=== PATIENT | female | born 1940 | race Caucasian/White ===

== ENCOUNTER 2019-04-10 11:06 | Outpatient (CLI) | payer MEDICARE, SELFPAY ==
--- NOTE | ~2019-04-10 | CT_ITS ---
EXAMINATION:CT chest wo con DATE: 04/10/2019 11:31 INDICATION: Solitary pulmonary nodule. TECHNIQUE: Computed tomography (CT) of the chest was performed without intravenous contrast. Automate d exposure control and iterative reconstruction technique were employed. The dose-length product (DLP ) was 65.51 mGy-cm. COMPARISON: PET/CT 06/30/2018, chest CT 05/30/2018 FINDINGS: There is moderate emphysema. There is mild atelectasis bilaterally. A calcified right lung nodule is consistent with old granulomatous disease. There is mucous plugging in left lower lobe. The re is discoid atelectasis in lingula. Again seen is a 4 mm nodule in left upper lobe. There is a 9 mm nodule in right lower lobe abutting the hilum without change and without increased activity on the p rior PET. No pleural effusion. The heart size is normal. There are coronary artery calcifications. No pericardial effusion. There are changes of cholecystectomy. There is mild thoracic spondylosis. IMPRESSION: 1. Stable pulmonary nodules, probably benign. Noncontrast low-dose chest CT is recommended in 12 bar hs. 2. Moderate emphysema. Reviewed, dictated and finalized at location A. R PASTE MIXER IMPRESSION: 1. Stable pulmonary nodules, probably benign. Noncontrast low-dose chest CT is recommended in 12 months. 2. Moderate emphysema.
== END 2019-04-10 11:07 | disposition home or self-care (01) ==
PROVIDERS: PCP Family Medicine; Visit Provider Nurse Practitioner
DX: R91.1 Solitary pulmonary nodule (principal); J43.9 Emphysema, unspecified; R91.8 Other nonspecific abnormal finding of lung field
CPT/HCPCS: 71250

== ENCOUNTER 2019-09-20 12:46 | Outpatient (CLI) | payer MEDICARE, SELFPAY ==
--- NOTE | ~2019-09-20 | US_ITS ---
EXAMINATION: US renal BI DATE: 09/20/2019 13:19 INDICATION: Chronic kidney disease, stage III TECHNIQUE: Multiple grayscale and Doppler ultrasound images of the kidneys were obtained. COMPARISON: None. FINDINGS: The right kidney measures 9.9 x 4.3 x 4.2 cm. The left kidney measures 9.4 x 4.1 x 5 cm. Th e kidneys demonstrate normal parenchymal echogenicity. There is no hydronephrosis. The bladder is nor mal. IMPRESSION: 1. Normal kidneys without hydronephrosis. Reviewed, dictated and finalized at location A.
== END 2019-09-20 12:47 | disposition home or self-care (01) ==
PROVIDERS: PCP Family Medicine Sports Medicine; Visit Provider Internal Medicine Nephrology
DX: N18.3 Chronic kidney disease, stage 3 (moderate) (principal)
CPT/HCPCS: 76775

== ENCOUNTER 2019-11-03 09:44 | Outpatient (CLI) | payer MEDICARE, SELFPAY ==
[2019-11-03 09:55] VITALS: PULSE 57; O2SAT 93
[2019-11-03 10:00] VITALS: PULSE 70; O2SAT 86
[2019-11-03 10:05] VITALS: PULSE 72; O2SAT 88
[2019-11-03 10:10] VITALS: PULSE 74; O2SAT 91
[2019-11-03 10:20] VITALS: PULSE 58; O2SAT 92
--- NOTE | 2019-11-03 10:33 | HOMEO2EVAL ---
Home Oxygen Evaluation RC: Home Oxygen (O2) Evaluation Start: 11/03/19 10:28 Freq: Status: Active Protocol: RPE Activity Type Activity Date Activity User E-Sign Co-Sign Detail Recorded Client Recorded Date Recorded By Document 11/03/19 09:55 DJO [email or web address] 11/03/19 10:33 DJO Document 11/03/19 10:00 [email or web address] [email or web address] 11/03/19 10:33 DJO Document 11/03/19 10:05 DJO [email or web address] 11/03/19 10:33 DJO Document 11/03/19 10:10 DJO [email or web address] 11/03/19 10:33 DJO Document 11/03/19 10:20 DJO [email or web address] 11/03/19 10:33 DJO 11/03/19 11/03/19 11/03/19 09:55 10:00 10:05 Home O2 Evaluation Test Phase Resting Exercise Exercise Oxygen Delivery Room Air Room Air Nasal Cannula Oxygen Flow Rate (L/min) 1 Pulse Oximetry (90-100 %) 93 86 L 88 L Pulse Rate (60-100 beats/min) 57 L 70 72 Activity Tolerance Ambulation Distance (feet) Treatment Charges O2 Evaluation 11/03/19 11/03/19 10:10 10:20 Home O2 Evaluation Test Phase Exercise Resting Oxygen Delivery Nasal Cannula Room Air Oxygen Flow Rate (L/min) 2 Pulse Oximetry (90-100 %) 91 92 Pulse Rate (60-100 beats/min) 74 58 L Activity Tolerance Good Ambulation Distance (feet) 1,000 Treatment Charges
--- NOTE | 2019-11-05 11:28 | WPDPFTINT ---
PFT Interpretation PFT Interpretation: This PFT met all criteria for ATS standards and reproducibility FEV/FVC post bronchodilator 42% FEV1 69% or 1.01 liters FVC 110% or 2.39 liters TLC 129% or 5.08 liters RV 172% RV/TLC 57% DLCO 30% or 4.8 liters when adjusted for alveolar volume but not adjusted for hemoglobin Flow volume loops showed severe expiratory coving Impression: Moderate airflow obstruction with hyperinflation, air trapping and severely reduced diffusion capacity. This correlates with COPD. Clinical correlation is advised.
== END 2019-11-03 09:45 | disposition home or self-care (01) ==
LOC: ANHPFT 09:46
PROVIDERS: PCP Family Medicine Sports Medicine; Visit Provider Nurse Practitioner
DX: J43.9 Emphysema, unspecified (principal); R84.2 Abnormal level of other drugs, medicaments and biological substances in specimens from respiratory organs and thorax
CPT/HCPCS: 94060; 94618; 94726; 94729

== ENCOUNTER 2020-04-12 10:23 | Outpatient (CLI) | payer MEDICARE, SELFPAY ==
--- NOTE | ~2020-04-12 | CT_ITS ---
EXAMINATION: CT diagnostic chest wo con EXAM DATE: 04/12/2020 10:44 INDICATION: Multiple lung nodules. TECHNIQUE: Spiral CT of the chest without contrast. Axial, coronal and sagittal images were reviewe d. Coronal maximum intensity pixel images of chest reviewed. The dose-length product (DLP) for this examination was 139.88 mGy-cm. The exposure was tailored according to patient size (auto mA exposur e control), and iterative reconstruction (ASIR) was used as additional dose reduction technique. Comp arison is made to prior examination from 04/10/2019, 05/30/2018. FINDINGS: Moderate emphysema. There is 9 mm right lower lobe abutting the hilum is unchanged. New li near right lower and middle lobe opacities consistent with atelectasis, smaller amount in the left in frahilar region. There are no pleural or pericardial effusions. Tracheobronchial tree is patent. There is no mediastinal, hilar or axillary lymphadenopathy. There is no pneumothorax. Heart clyde l in size. There is diffuse gastric body wall thickening, could be up to 3 cm in thickness on the greater curvat ure side. This finding was reported on PET/CT 06/30/2018. There are cholecystectomy clips. 0 There is thoracic spondylosis without osteoblastic or osteolytic lesions identified. IMPRESSION: 1. Right perihilar 9 mm nodule, likely benign given two-year stability. 2. Diffuse gastric wall thickening. Differential diagnosis includes Torres Reina syndrome, Mene trier's disease, chronic gastritis and lymphoma. 3. Basilar linear atelectasis. 4. Moderate emphysema. Reviewed, dictated and finalized at location B. MENTAL BRICK INSTALLER IMPRESSION: 1. Right perihilar 9 mm nodule, likely benign given two-year stability. 2. Diffuse gastric wall thickening. Differential diagnosis includes Torres Reina syndrome, Menetrier's disease, chronic gastritis and lymphoma. 3. Basilar linear atelectasis. 4. Moderate emphysema.
== END 2020-04-12 10:24 | disposition home or self-care (01) ==
PROVIDERS: PCP Family Medicine Sports Medicine; Visit Provider Nurse Practitioner
DX: R91.8 Other nonspecific abnormal finding of lung field (principal); J43.9 Emphysema, unspecified
CPT/HCPCS: 71250

== ENCOUNTER 2021-05-15 11:39 | Emergency (ER) | payer MEDICARE, SELFPAY ==
--- NOTE | ~2021-05-15 | XR_ITS ---
EXAMINATION: XR chest 1V portable DATE: 05/15/2021 12:57 INDICATION: Dyspnea TECHNIQUE: frontal view of the chest was obtained. COMPARISON: Chest radiograph dated 04/25/[address] dated 04/12/2020 FINDINGS: Chronic linear band of discoid atelectasis/scarring at the lingula. No new airspace opacities, pulmon cesar edema, pleural effusion or pneumothorax. The cardiomediastinal silhouette is normal. Subtle right rotator cuff calcific tendinitis along the right greater tuberosity. IMPRESSION: 1. Chronic lingular discoid atelectasis/scarring. No acute cardiopulmonary disease. Reviewed, dictated and finalized at location A. IMPRESSION: 1. Chronic lingular discoid atelectasis/scarring. No acute cardiopulmonary dise ase.
[2021-05-15 11:50] VITALS: BP 150/69; PULSE 67; RESP 28; TEMP 36.5; O2SAT 98
--- NOTE | 2021-05-15 12:04 | ECG_ITS ---
Measurements Intervals [place] Rate: 58 P: 43 IN: 171 QRS: 102 QRSD: 104 T: 37 QT: 443 QTc: 438 Interpretive Statements SINUS BRADYCARDIA WITH SINUS ARRHYTHMIA BASED ON ARTIFACT NONSPECIFIC T-WAVE ABNORMALITY BORDERLINE ECG COMPARED TO ECG 04/25/2018 18:05:13 HEART RATE HAS DECREASED Electronically Signed On 05-15-2021 15:28:31 CDT by Robby Polo M.D.
[2021-05-15] MEDS: IPRATROPIUM 0.5 MG/ALBUTEROL SULFATE 2.5 MG AMPUL.NEB 3 ML INHALATION (12:21)
[2021-05-15 12:22] VITALS: PULSE 60; RESP 20; O2SAT 97
[2021-05-15] MEDS: methylPREDNISolone SOD SUCC 125 MG VIAL IV PUSH (12:24)
[2021-05-15 12:30] VITALS: BP 157/72; PULSE 58; PULSE 64; RESP 20; O2SAT 96; O2SAT 99
[2021-05-15 12:52] LABS: Basophils Absolute Auto 0.08 K/mm3 (0.00-0.10); Basophils Percent Auto 0.6 % (0.0-1.0); Eosinophils Absolute Auto 0.37 K/mm3 (0.02-0.50); Eosinophils Percent Auto 2.9 % (1.0-6.0); Hematocrit 50.6 % (35.0-42.0); Hemoglobin 16.2 g/dL (11.7-13.8); Immature Granulocyte Absolute 0.06 K/mm3 (0.00-0.00); Immature Granulocyte Percent A 0.5 % (0.0-0.0); Lymphocytes Absolute Auto 3.24 K/mm3 (1.10-4.50); Lymphocytes Percent Auto 25.6 % (18.0-42.0); Mean Corpuscular Hemoglobin 32.3 pg (27.0-31.0); Mean Platelet Volume 10.6 fl (9.2-11.8); Monocytes Absolute Auto 0.74 K/mm3 (0.10-0.90); Monocytes Percent Auto 5.8 % (2.0-11.0); Neutrophils Absolute Auto 8.2 K/mm3 (1.7-7.2); Neutrophils Percent Auto 64.6 % (50.0-70.0); Platelet Count Result 262 K/mm3 (150-420); Red Blood Count 5.01 M/mm3 (4.20-5.40); Red Cell Distribution Width 11.8 % (11.6-14.4); White Blood Count 12.7 K/mm3 (4.8-10.8)
[2021-05-15 13:00] VITALS: BP 143/65; PULSE 60; TEMP 36.7; O2SAT 97
[2021-05-15 13:01] LABS: Base Excess ABG -0.7 mmol/L (0-2); HCO3 ABG 22.5 mmol/L (23-29); Oxygen Content ABG 21.1 %vol (16.0-22.0); Oxygen Saturation ABG 96.6 % (95-97); Oxyhemoglobin 95.4 % (94-100); PCO2 ABG 33.6 mmHg (35-45); PO2 ABG 89.5 mmHg (75-85); Total Hemoglobin 15.7 g/dL (12.0-18.0); pH ABG 7.44 (7.35-7.45)
[2021-05-15 13:02] LABS: Modified Allen's Test Pass; Site Drawn LEFT RADIAL
[2021-05-15 13:03] LABS: Device NASAL CANNULA
[2021-05-15 13:06] LABS: D Dimer 0.45 mg/L (0.19-0.50); INR 1.1; Partial Thromboplastin Time 25.3 SEC (23.90-30.70); Prothrombin Time 11.8 Seconds (9.50-12.10)
[2021-05-15 13:09] LABS: Alanine Aminotransferase 27 U/L (14-59); Albumin Level 3.9 g/dL (3.4-5.0); Alkaline Phosphatase 91 U/L (46-116); Anion Gap 8 mmol/L (8-16); Aspartate Amino Transferase 22 U/L (15-37); Bilirubin,Total 0.4 mg/dL (0.00-1.00); Blood Urea Nitrogen 41 mg/dL (7-18); Calcium 9.9 mg/dL (8.5-10.1); Carbon Dioxide 28 mmol/L (21-32); Chloride 105 mmol/L (98-108); Estimated CRCL calculation 25 ml/min; Estimated Glomerular Filt Rate 40; Glucose 167 mg/dL (70-99); Osmolality Calculated 306 mOsm/kg (285-295); Sodium 141 mmol/L (136-145); Total Protein 7.7 g/dL (6.4-8.2); Troponin I 13.2 ng/L (0.00-60.4)
[2021-05-15 13:26] LABS: Influenza A QL RT-PCR Negative (Negative); Influenza B QL RT-PCR Negative (Negative); SARS-CoV-2 RNA PCR Negative (Negative)
--- NOTE | 2021-05-15 13:26 | ED.SOB ---
HPI - SOB/Dyspnea General Chief Complaint: Shortness of Breath/Dyspnea Stated Complaint: oxygen levels dropping Source: patient Mode of arrival: ambulatory Limitations: no limitations History of Present Illness HPI Narrative: this is a 80-year-old female that presents after she called her pulmonary doctor's office and told her doctor that she had low oxygen levels in the evening and she was told to either come to the office or go to the emergency department. Currently patient is comfortable, with no dyspnea no chest pain no fever chills no nausea or vomiting no abdominal pain no diarrhea or constipation. The patient is vaccinated for COVID, and initially the patient states that her O2 sats were in the 80s at night does wear oxygen intermittently. MD elicited complaint: shortness of breath and cough Pertinent past history: COPD and congestive heart failure Onset (ago): day(s) Timing: intermittent Severity: moderate Exacerbating factors: lying flat Relieving factors: oxygen and rest Related Data Home Medications Medication Instructions Recorded Confirmed amlodipine 5 mg PO DAILY 05/15/21 05/15/21 furosemide 20 mg PO BID 05/15/21 05/15/21 insulin glargine [Lantus Solostar SUBCUT DAILY 05/15/21 U-100 Insulin] insulin lispro [Humalog KwikPen SUBCUT DAILY 05/15/21 Insulin] levothyroxine 137 mcg PO DAILY 05/15/21 05/15/21 losartan 50 mg PO DAILY 05/15/21 05/15/21 lovastatin 20 mg PO DAILY 05/15/21 05/15/21 metoprolol tartrate 25 mg PO DAILY 05/15/21 05/15/21 omeprazole 40 mg PO DAILY 05/15/21 05/15/21 potassium chloride [Klor-Con 10] 10 meq PO DAILY 05/15/21 05/15/21 umeclidinium-vilanterol [Anoro See Rx Instructions .ROUTE .COMPLEX 05/15/21 05/15/21 Ellipta] Allergies Allergy/AdvReac Type Severity Reaction Status Date / Time No Known Allergies Allergy Verified 05/15/21 12:04 Review of Systems Review of Systems: All systems reviewed & are unremarkable except as noted in HPI and below PMFSH Past Medical History Medical History CHF (congestive heart failure) COPD (chronic obstructive pulmonary disease) Diabetes mellitus Exam Const: General: no acute distress and alert Orientation/consciousness: patient oriented x3 HENMT: Head: normal to inspection Eyes: Conjunctivae: conjunctivae normal Pupils: Equal, round and reactive pupils present Neck: Neck: normal visual inspection Chest: Chest palpation & inspection: normal inspection of the chest Resp: Effort & Inspection: normal respiratory effort Auscultation: clear to auscultation bilaterally Cardio: Rate: regular rate and bradycardic GI: GI Palp: Yes Soft to palpation : General: Yes no CVA tenderness Urinary Catheter: Urinary Catheter: patent and draining Back/Spine/Pelvis: Back: no CVA tenderness Skin: General skin exam: normal color Rashes: no rashes Neuro: General: patient oriented x3, moves all extremities, no meningeal signs and no focal motor deficits Extrem: General: normal to inspection and no pedal edema Psych: Mental Status: mental status grossly normal Affect: normal affect Attitude: cooperative Course Course Emergency Course: with reassessment of patient received after receiving DuoNebs and steroid treatment patient's O2 sats have been stable she is currently on 3L satting at 96%. Labs x-rays reviewed with patient. patient continues to feel comfortable she is on 3L of oxygen and is satting at 98%, patient had an elevated BNP of around 1000 and will give a dose of Lasix IV 40mg. Vital Signs Vital signs: Vital Signs Temperature 36.5 C 05/15/21 11:50 Pulse Rate 67 05/15/21 11:50 Respiratory Rate 28 H 05/15/21 11:50 Blood Pressure 150/69 H 05/15/21 11:50 Pulse Oximetry 98 05/15/21 11:50 Temperature 36.5 C 05/15/21 11:50 Pulse Rate 64 05/15/21 12:30 Respiratory Rate 20 05/15/21 12:30 Blood Pressure 157/72 H 05/15/21 12:30 Pulse Oxim
[2021-05-15 13:31] LABS: NT Pro B Type Natriuretic Pept 1023 pg/mL (0-450)
[2021-05-15] MEDS: FUROSEMIDE INJ 40 MG/4 ML VIAL IV PUSH (14:11)
[2021-05-15 14:34] VITALS: BP 121/81; PULSE 89; RESP 18; TEMP 36.4; O2SAT 97
== END 2021-05-15 14:36 | disposition home or self-care (01) ==
PROVIDERS: Emergency Provider Emergency Medicine; PCP Internal Medicine
DX: J44.9 Chronic obstructive pulmonary disease, unspecified (principal); I50.9 Heart failure, unspecified; Z20.822 Contact with and (suspected) exposure to COVID-19; E11.9 Type 2 diabetes mellitus without complications
CPT/HCPCS: 36415; 36600; 71045; 80053; 82805; 83880; 84484; 85025; 85380; 85610; 85730; 87040; 87502; 93005; 94640; 96374; 96375; 99284; C9803; J1940; J2930; U0003; U0005

== ENCOUNTER 2021-05-23 14:07 | Outpatient (CLI) | payer MEDICARE, SELFPAY ==
--- NOTE | 2021-05-23 15:40 | ECHO_ITS ---
Patient Info Name: Nikki Bonilla Age: 80 years : 1940 Gender: Female Ht: 60 in Wt: 133 lbs BSA: 1.61 m2 HR: 61 bpm BP: 133 / 85 mmHg Technical Quality: Good Exam Date: 05/23/2021 2:12 PM Exam Location: [facility] Patient Status: Outpatient Admit Date: 05/23/2021 Staff Ordering Physician: Scott Galvez MD Syrup Maker Cook: Macario Cole RDCS, RT Attending Provider: Scott Galvez MD Exam Type: CA echo doppler color flow Study Info Indications R06.00 - Dyspnea, unspecified Complete two-dimensional, color flow and Doppler transthoracic echocardiogram is performed. Strain analysis performed. Summary 1. Complete two-dimensional, color flow and Doppler transthoracic echocardiogram is performed. 2. Left ventricular chamber dimension is normal. 3. Left ventricular systolic function is normal, estimated at 60-65%. 4. The left ventricular diastolic function is grade I diastolic dysfunction. 5. E/e' 11 is mildly elevated. 6. Global longitudinal strain is normal at -18.4%. 7. There is mild aortic valve sclerosis. 8. There is trace tricuspid valve regurgitation. 9. Moderate pulmonary hypertension, estimated pulmonary arterial systolic pressure is 53 mmHg. 10. There is mild pulmonic regurgitation. Left Ventricle E/e' 11 is mildly elevated. Global longitudinal strain is normal at -18.4%. Left ventricular chamber dimension is normal. Left ventricular systolic function is normal, estimated at 60-65%. The left ventricular diastolic function is grade I diastolic dysfunction. Right Ventricle Right ventricular systolic function is normal and with normal TAPSE 2.5 cm. Right ventricular chamber dimension is normal. Left Atria Left atrial chamber dimension is normal. Right Atria Right atrial chamber dimension is normal. Aortic Valve The aortic valve is trileaflet. There is mild aortic valve sclerosis. There is no aortic valve stenosis. There is no aortic valve regurgitation. Pulmonic Valve There is mild pulmonic regurgitation. Mitral Valve There is no mitral valve stenosis. There is no mitral valve regurgitation. Tricuspid Valve There is trace tricuspid valve regurgitation. Moderate pulmonary hypertension, estimated pulmonary arterial systolic pressure is 53 mmHg. Pericardium/Pleural There is no pericardial effusion. Inferior Vena Cava Normal inferior vena cava with >50% collapse upon inspiration consistent with normal right atrial pressure, 5 mmHg. Aorta The aortic root size at the sinus of Valsalva is normal. Left Ventricular Outflow Tract Name Value Normal LVOT 2D LVOT Diameter 2.0 cm LVOT Doppler LVOT Peak Velocity 110 cm/s LVOT Peak Gradient 5 mmHg LVOT Mean Gradient 3 mmHg LVOT VTI 28 cm LVOT VTI/AV VTI Ratio 1.0 LVOT Stroke Volume 86 ml Mitral Valve Name Value Normal
== END 2021-05-23 14:08 | disposition home or self-care (01) ==
LOC: CHSIMG 14:09
PROVIDERS: PCP Internal Medicine; Visit Provider Internal Medicine
DX: R06.00 Dyspnea, unspecified (principal)
CPT/HCPCS: 93306

== ENCOUNTER 2022-10-09 08:59 | Outpatient (CLI) | payer MEDICARE, SELFPAY ==
--- NOTE | ~2022-10-09 | XR_ITS ---
XR chest 2V 10/09/2022 09:40 Indication: Dyspnea. Midsternal chest pain. Hypertension. COPD. Procedure: 2 view chest Comparison: Comparison to multiple prior studies sequentially, with oldest reviewed study dated 04/25. Findings: There is chronic lingular atelectasis/scarring. There is bibasilar atelectasis. No focal pn eumonia, edema, significant effusion or pneumothorax. No acute osseous abnormality. Impression: 1: Bibasilar atelectasis. Chronic lingular atelectasis/scarring. Reviewed, dictated and finalized at location B. Impression: 1: Bibasilar atelectasis. Chronic lingular atelectasis/scarring.
[2022-10-09 09:15] VITALS: PULSE 57; O2SAT 93
[2022-10-09 09:17] VITALS: PULSE 60; O2SAT 87
[2022-10-09 09:18] VITALS: PULSE 57; O2SAT 86
[2022-10-09 09:25] VITALS: PULSE 62; O2SAT 87
[2022-10-09 09:28] VITALS: PULSE 62; O2SAT 90
--- NOTE | 2022-10-09 09:48 | HOMEO2EVAL ---
Evaluation was performed at [facility] Home Oxygen Evaluation RC: Home Oxygen (O2) Evaluation Start: 10/09/22 09:31 Freq: Status: Active Protocol: RPE Activity Type Activity Date Activity User E-sign Co-sign Detail Recorded Client Recorded Date Recorded By Document 10/09/22 09:15 [email or web address] 10/09/22 09:48 SJB Document 10/09/22 09:17 [email or web address] 10/09/22 09:48 SJB Document 10/09/22 09:18 SJB [email or web address] 10/09/22 09:48 SJB Document 10/09/22 09:25 SJB [email or web address] 10/09/22 09:48 SJB Document 10/09/22 09:28 SJB [email or web address] 10/09/22 09:48 SJB 10/09/22 10/09/22 10/09/22 09:15 09:17 09:18 Home O2 Evaluation [Oxygen] -Test Phase Resting Exercise Exercise -Oxygen Delivery Room Air Room Air Nasal Cannula -Oxygen Flow Rate (L/min) 1 [Pulse Oximetry] -Pulse Oximetry (90-100 %) 93 87 L 86 L [Pulse Rate] -Pulse Rate (60-100 beats/min) 57 L 60 57 L [Evaluation] -Activity Tolerance Good Good -Rating of Perceived Dyspnea (PD) +2 Mild, Some +2 Mild, Some Difficulty, Difficulty, Noticeable to Noticeable to the Observer the Observer -Rate of Perceived Exertion (PE) 11 Fairly light 11 Fairly light Query Text:Click the Protocol Button to View the RPE Scale [Exercise] -Ambulation Distance (feet) 75 -Ambulation Distance (meters) 22.85 [Comments] -Home Oxygen Evaluation Comments Will begin walk After 75 ft on Pt dropped to on room air. room air, 86% after patients sp02 stopping and dropped to 87%. being started Pt started on on 1 lpm. 1 lpm. Increased oxygen to 2 lpm , and after 2 minutes she came up to 91%. Will continue walk on 2 lpm. [Charges] -Treatment Charges O2 Evaluation - Outpatient 10/09/22 10/09/22 09:25 09:28 Home O2 Evaluation [Oxygen] -Test Phase Exercise Exercise -Oxygen Delivery Nasal Cannula Nasal Cannula -Oxygen Flow Rate (L/min) 2 3 [Pulse Oximetry] -Pulse Oximetry (90-100 %) 87 L 90 [Pulse Rate] -Pulse Rate (60-100 beats/min) 62 62 [Evaluation] -Activity Tolerance Good Good -Rating of Perceived Dyspnea (PD) +3 Moderate +3 Moderate Difficulty, But Difficulty, But Can Continue Can Continue -Rate of Perceived Exertion (PE) 12 12 Query Text:Click the Protocol Button to View the RPE Scale [Exercise] -Ambulation Distance (feet) 150 125 -Ambulation Distance (meters) 45.71 38.09 [Comments] -Home Oxygen Evaluation Comments After 150 ft, Pt walked on 2 lpm, pt approx 350 ft, dropped to 87%. finishing on 3 Pt increased lpm, with Sp02 to 3 lpm. staying between 90-91%. PLB encouraged. [Charges] -Treatment Charges
== END 2022-10-09 09:00 | disposition home or self-care (01) ==
LOC: CHSIMG 09:01
PROVIDERS: PCP Internal Medicine; Visit Provider Nurse Practitioner Family
DX: R06.09 Other forms of dyspnea (principal); R09.02 Hypoxemia; J98.11 Atelectasis
CPT/HCPCS: 71046; 94618

== ENCOUNTER 2022-11-02 08:46 | Outpatient (CLI) | payer MEDICARE, SELFPAY ==
--- NOTE | 2022-11-09 15:32 | WPDCARIOSTRE ---
Nuclear Stress Test INDICATIONS Indications: Chest pain PROCEDURE Procedure Performed: Myocardial Perf Spect-Multi Procedure: Patient underwent a lexiscan stress test and immediately was injected with 30 mCi of cardiolyte. Multiple tomographic images were obtained. These are of good quality. There is evidence of moderate size and moderate severity anteroseptal perfusion defect with stress imaging. A separate resting images were obtained after injection with 9.6 mCi of cardiolyte. Multiple tomographic images were obtained. These are of good quality. There is evidence of moderate size and moderate severity anteroseptal perfusion defect with rest imaging. CONCLUSION Conclusion: 1. Myocardial perfusion imaging demonstrating a fixed moderate size anteroseptal perfusion defect suggestive of breast attenuation artifact. 2. No evidence of reversible ischemia. 3. Left ventriculogram demonstrates normal measured ejection fraction of 71% with no wall motion abnormalities. 4. TID score 1.09 is normal.
== END 2022-11-02 08:47 | disposition home or self-care (01) ==
PROVIDERS: PCP Internal Medicine; Visit Provider Nurse Practitioner Family
DX: R07.9 Chest pain, unspecified (principal)
CPT/HCPCS: 99199

== ENCOUNTER 2022-11-09 07:55 | Outpatient (CLI) | payer MEDICARE, SELFPAY ==
--- NOTE | 2022-11-09 08:13 | EST_ITS ---
Patient Info Name: Nikki Bonilla Age: 82 years : 1940 Gender: Female Ht: 60 in Wt: 139 lbs BSA: 1.65 m2 HR: 56 bpm BP: 130 / 50 mmHg Heart Rhythm: Bradycardia Technical Quality: Good Exam Date: 11/09/2022 8:26 AM Exam Location: [facility] Patient Status: Outpatient Admit Date: 11/09/2022 Staff Ordering Physician: Graham Ramos APRN Attending Provider: Danny Buchanan NMAA Exam Type: CA stress janet w NM Study Info A regadenoson stress test was performed. History/Risk Factors Hypertension: Yes COPD: On Home Oxygen Tobacco Use: Former Summary 1. 1. Negative lexiscan stress test for ischemic ST changes by ECG criteria. 2. 2. Stable hemodynamics throughout the test. 3. 3. Nuclear scan to follow and will be reported separately. Please correlate with it. Protocol: LEXISCAN Stress ECG Details Stage: REST Duration (min): 4 min : 38 sec HR (bpm): 58 SBP (mmHg): 130 DBP (mmHg): 50 Stage: REST Duration (min): 8 min : 1 sec HR (bpm): 57 SBP (mmHg): 130 DBP (mmHg): 50 Stage: STAGE 1 Duration (min): 0 min : 13 sec HR (bpm): 57 SBP (mmHg): 130 DBP (mmHg): 50 Stage: RECOVERY Duration (min): 0 min : 46 sec HR (bpm): 59 SBP (mmHg): 130 DBP (mmHg): 50 Stage: RECOVERY Duration (min): 1 min : 46 sec HR (bpm): 68 SBP (mmHg): 130 DBP (mmHg): 50 Stage: RECOVERY Duration (min): 2 min : 46 sec HR (bpm): 68 SBP (mmHg): 146 DBP (mmHg): 53 Stage: RECOVERY Duration (min): 3 min : 46 sec HR (bpm): 67 SBP (mmHg): 146 DBP (mmHg): 53 Stage: RECOVERY Duration (min): 4 min : 46 sec HR (bpm): 65 SBP (mmHg): 137 DBP (mmHg): 53 Stage: RECOVERY Duration (min): 5 min : 46 sec HR (bpm): 66 SBP (mmHg): 133 DBP (mmHg): 54 Stage: RECOVERY Duration (min): 6 min : 20 sec HR (bpm): --- SBP (mmHg): 133 DBP (mmHg): 54 Rest HR: 57 bpm Peak HR: 71 bpm Rest Sys BP: 130 mmHg Peak Sys BP: 146 mmHg Max Pred HR: 139 bpm % Max Pred HR: 51 % Target HR: 118 bpm Max RPP: 10,366 bpm*mmHg Termination Reason: Completed Protocol Cardiac Symptoms: None Total Time: 0 min : 13 sec Rest Jones BP: 50 mmHg Peak Jones BP: 53 mmHg Total Dose: 0.4 mg Resting ECG Sinus bradycardia, RAD, IRBBB, delayed precordial R/S transition. Occasional PVCs. Stress ECG No abnormal ST/T wave changes. Arrhythmias Occasional PVCs. Report Signatures
== END 2022-11-09 07:56 | disposition home or self-care (01) ==
LOC: CHSCARD 07:56
PROVIDERS: PCP Internal Medicine; Visit Provider Nurse Practitioner Family
DX: R07.9 Chest pain, unspecified (principal); R09.02 Hypoxemia; R06.09 Other forms of dyspnea
CPT/HCPCS: 78452; 93017; A9502; J2785

== ENCOUNTER 2022-11-16 12:55 | Outpatient (CLI) | payer MEDICARE, SELFPAY ==
--- NOTE | 2022-11-16 13:08 | ECHO_ITS ---
Patient Info Name: Nikki Bonilla Age: 82 years : 1940 Gender: Female Ht: 60 in Wt: 137 lbs BSA: 1.64 m2 HR: 61 bpm BP: 147 / 70 mmHg Heart Rhythm: Sinus Rhythm Technical Quality: Good Exam Date: 11/16/2022 1:05 PM Exam Location: [facility] Patient Status: Outpatient Admit Date: 11/16/2022 Staff Ordering Physician: Graham Ramos APRN [employer] Program Coordinator: Ramon Snyder RDCS Attending Provider: Graham Ramos APRN Referring Physician: Richard RODRIGUEZ; Exam Type: CA echo doppler color flow Study Info Indications - other form of dyspnea Complete two-dimensional, color flow and Doppler transthoracic echocardiogram is performed. History/Risk Factors Hypertension: Yes COPD: On Home Oxygen Tobacco Use: Former Summary 1. Complete two-dimensional, color flow and Doppler transthoracic echocardiogram is performed. 2. Left ventricular chamber dimension is normal. 3. Left ventricular systolic function is normal, estimated at 60-65%. 4. There is mild concentric increased left ventricular wall thickness. 5. The left ventricular diastolic function is grade I diastolic dysfunction. 6. E/e' 13 is mildly elevated. 7. Left atrial chamber dimension is mildly enlarged. 8. There is trace tricuspid valve regurgitation. 9. No pulmonary hypertension, estimated pulmonary arterial systolic pressure is 23 mmHg. Left Ventricle E/e' 13 is mildly elevated. Left ventricular chamber dimension is normal. Left ventricular systolic function is normal, estimated at 60-65%. There is mild concentric increased left ventricular wall thickness. The left ventricular diastolic function is grade I diastolic dysfunction. Right Ventricle Right ventricular systolic function is normal and with normal TAPSE 2.8 cm. Right ventricular chamber dimension is normal. Left Atria Left atrial chamber dimension is mildly enlarged. Right Atria Right atrial chamber dimension is normal. Aortic Valve The aortic valve is trileaflet. There is no aortic valve stenosis. There is no aortic valve regurgitation. Pulmonic Valve There is no pulmonic regurgitation. Mitral Valve There is no mitral valve stenosis. There is no mitral valve regurgitation. Tricuspid Valve There is trace tricuspid valve regurgitation. No pulmonary hypertension, estimated pulmonary arterial systolic pressure is 23 mmHg. Pericardium/Pleural There is no pericardial effusion. Inferior Vena Cava Normal inferior vena cava with >50% collapse upon inspiration consistent with normal right atrial pressure, 5 mmHg. Aorta The aortic root size at the sinus of Valsalva is normal. Left Ventricular Outflow Tract Name Value Normal LVOT 2D LVOT Diameter 2.2 cm LVOT Doppler LVOT Peak Velocity 98 cm/s LVOT Peak Gradient 3 mmHg LVOT Mean Gradient 2 mmHg LVOT VTI 35 cm LVOT VTI/AV VTI Ratio 1.1 LVOT Stroke Volume 129 ml Pulmonic Valve Name Value Normal
== END 2022-11-16 12:56 | disposition home or self-care (01) ==
LOC: CHSIMG 12:56
PROVIDERS: PCP Internal Medicine; Visit Provider Nurse Practitioner Family
DX: R07.9 Chest pain, unspecified (principal); R06.09 Other forms of dyspnea; I51.7 Cardiomegaly
CPT/HCPCS: 93306

== ENCOUNTER 2023-01-31 21:02 | Inpatient (IN) | payer MEDICARE, SELFPAY ==
--- NOTE | ~2023-01-31 | XR_ITS ---
EXAMINATION: XR chest 1V portable Exam Date/Time: 01/31/2023 21:35 MUSEUM SERVICE SCHEDULER HISTORY: shortness of breath Comparison: 10/09/2022. RESULT: Lines, tubes, and devices: None. Lungs and pleura: Mild diffuse reticular opacities. Right midlung scar. No focal consolidation, pleu ral effusion, or pneumothorax. Cardiomediastinal silhouette: Stable. Other: No acute osseous or upper abdominal finding. IMPRESSION: Mild interstitial edema. Reviewed, dictated and finalized at location [facility]. UM SERVICE SCHEDULER IMPRESSION: Mild interstitial edema.
--- NOTE | ~2023-01-31 | XR_ITS ---
Portable chest x-ray Comparison: 01/31/2023 Clinical History: Covid Findings: Lungs are clear, without focal consolidation or pleural effusion. Probable COPD. Cardiome diastinal silhouette is stable. Bones and soft tissues are unremarkable. Impression: COPD. Clear lungs. Reviewed, dictated and finalized at [facility]. RONMENTAL MANAGER Impression: COPD. Clear lungs.
[2023-01-31 21:02] VITALS: BP 148/62; PULSE 110; RESP 21; TEMP 36.9; O2SAT 88
--- NOTE | 2023-01-31 21:10 | ECG_ITS ---
Measurements Intervals [place] Rate: 107 P: 70 UT: 188 QRS: 214 QRSD: 110 T: 28 QT: 351 QTc: 469 Interpretive Statements SINUS TACHYCARDIA RIGHT AXIS DEVIATION [QRS AXIS > 100] MODERATE ST DEPRESSION [0.05+ mV ST DEPRESSION] CONSIDER MYOCARDIAL ISCHEMIA ABNORMAL ECG COMPARED TO ECG 05/15/2021 12:29:30 HEART RATE HAS INCREASED ST ABNORMALITIES CONSIDER MYOCARDIAL ISCHEMIA Electronically Signed On 02-01-2023 17:08:29 GOLD LEAF LABORER by Robby Polo M.D.
[2023-01-31 21:15] VITALS: O2SAT 93
[2023-01-31 21:23] LABS: Basophils Absolute Auto 0.1 K/mm3 (0.0-0.1); Basophils Percent Auto 0.9 % (0.2-1.2); Eosinophils Absolute Auto 0.1 K/mm3 (0-0.3); Eosinophils Percent Auto 1.2 % (0-4.4); Hematocrit 46.3 % (37.0-47.0); Hemoglobin 14.4 g/dL (12.0-15.0); Immature Granulocyte Absolute 0.12 K/mm3 (0.00-0.031); Immature Granulocyte Percent A 1.2 % (0-0.5); Lymphocytes Percent Auto 19.1 % (18.3-44.2); Mean Corpuscular HGB Conc 31.1 g/dl (32-36); Mean Corpuscular Hemoglobin 31.6 pg (26-34); Mean Corpuscular Volume 101.8 fl (80-100); Mean Platelet Volume 10.6 fl (7.4-10.4); Monocytes Absolute Auto 0.7 K/mm3 (0.1-0.6); Monocytes Percent Auto 6.7 % (2.6-8.5); Neutrophils Percent Auto 70.9 % (45.5-73.1); Platelet Count Result 254 k/mm3 (150-375); Red Blood Count 4.55 M/mm3 (4.2-5.4); Red Cell Distribution Width 12.6 % (11.5-14.5); White Blood Count 9.9 K/mm3 (4.5-10.0)
[2023-01-31 21:38] LABS: Alanine Aminotransferase 92 U/L (6-35); Albumin Level 4.3 g/dL (3.5-5.1); Alkaline Phosphatase 123 U/L (38-126); Anion Gap 12 mmol/L (8-16); Aspartate Amino Transferase 79 U/L (14-36); Bilirubin,Total 0.6 mg/dL (0.2-1.3); Blood Urea Nitrogen 51 mg/dL (7-17); Calcium 9.7 mg/dL (8.4-10.2); Carbon Dioxide 21 mmol/L (22-30); Chloride 110 mmol/L (98-107); Estimated CRCL calculation 23 ml/min; Estimated Glomerular Filt Rate 33; Glucose 167 mg/dL (65-110); Potassium 4.6 mmol/L (3.4-5.0); Sodium 143 mmol/L (137-145)
[2023-01-31 21:50] VITALS: PULSE 87; RESP 24
[2023-01-31] MEDS: ALBUTEROL SULFATE NEB 2.5 MG/3 ML INH INHALATION (21:50)
[2023-01-31] MEDS: IPRATROPIUM BR 0.02% INH SOLN 0.5 MG/2.5 ML VIAL INHALATION (21:50)
[2023-01-31 21:56] LABS: Alveolar/Arterial O2 Gradient 208.5 mmHg; Base Excess ABG -7.2 mEq/l (+/-2.0); Fractional Inspired Oxygen 44 %; HCO3 ABG 18.5 mEq/l (22.0-26.0); Oxygen Content ABG 18.7 %vol (16.0-22.0); Oxygen Saturation ABG 89.8 % (95.0-100.0); Oxyhemoglobin 88.9 % THb (90.0-100.0); PCO2 ABG 37.9 mmHg (35.0-45.0); PO2 FiO2 Ratio Arterial Blood 1.41 %; pH ABG 7.306 (7.350-7.450)
[2023-01-31 21:57] LABS: Device NASAL CANNULA; Modified Allen's Test Pass; Site Drawn RIGHT RADIAL
[2023-01-31 22:05] VITALS: O2SAT 82
[2023-01-31 22:10] VITALS: O2SAT 97
[2023-01-31 22:32] LABS: Prothrombin Time 13.9 Seconds (11.1-14.7)
[2023-01-31 22:34] LABS: Partial Thromboplastin Time 27.9 SECONDS (22.3-36.8)
[2023-01-31 22:43] LABS: Lactic Acid Reflex 1.9 mmol/L (0.7-2.0)
[2023-01-31 22:44] LABS: Magnesium 1.8 mg/dL (1.6-2.3)
[2023-01-31 22:56] LABS: NT Pro B Type Natriuretic Pept 1490 pg/mL (19.9-100); Troponin I 0.014 ng/mL (0.000-0.034)
[2023-01-31 23:02] LABS: Procalcitonin 0.3 ng/mL
[2023-01-31 23:07] LABS: Influenza A QL RT-PCR Negative (Negative); Influenza B QL RT-PCR Negative (Negative); RSV RNA, RT-PCR Negative (Negative); SARS-CoV-2 RNA PCR Positive (Negative)
--- NOTE | 2023-01-31 23:11 | ED.GENADULT ---
HPI - General Adult General Chief complaint: Shortness of Breath/Dyspnea Stated complaint: SOB/CP Time Seen by Provider: 01/31/23 21:22 History of Present Illness HPI narrative: Patient is a 82-year-old female who presents emergency department with chief complaint of shortness of breath. Patient has prior history of COPD and wears 4 L of nasal cannula oxygen at home patient noticed that she started getting very short of breath and noticed that she had some tightness in her chest was given a couple of nebulizer treatments and also given a spray of nitroglycerin by EMS prior to arrival. The patient reports she still feels somewhat short of breath denies fever Related Data Home Medications Medication Instructions Recorded Confirmed amlodipine 5 mg tablet 5 mg PO DAILY 05/15/21 01/04/23 insulin glargine 100 unit/mL (3 subcut DAILY 05/15/21 01/04/23 mL) subcutaneous pen (Lantus Solostar U-100 Insulin) insulin lispro 100 unit/mL subcut DAILY 05/15/21 01/04/23 subcutaneous pen (Humalog KwikPen (U-100) Insulin) levothyroxine 137 mcg tablet 137 mcg PO DAILY 05/15/21 01/04/23 losartan 50 mg tablet 50 mg PO DAILY 05/15/21 01/04/23 lovastatin 20 mg tablet 20 mg PO DAILY 05/15/21 01/04/23 metoprolol tartrate 25 mg tablet 25 mg PO DAILY 05/15/21 01/04/23 omeprazole 40 mg capsule,delayed 40 mg PO DAILY 05/15/21 01/04/23 release aspirin 81 mg tablet,delayed 81 mg PO DAILY 09/26/21 01/04/23 release furosemide 20 mg tablet 40 mg PO DAILY 09/26/21 01/04/23 guaifenesin 400 mg tablet 800 mg PO DAILY 09/26/21 01/04/23 lorazepam 0.5 mg tablet 0.5 mg PO BID PRN 09/26/21 01/04/23 montelukast 10 mg tablet 10 mg PO DAILY 09/26/21 01/04/23 potassium chloride 10 mEq 20 meq PO DAILY 09/26/21 01/04/23 tablet,extended release (Klor-Con) escitalopram oxalate 10 mg tablet 10 mg PO DAILY 12/07/22 01/04/23 Allergies Allergy/AdvReac Type Severity Reaction Status Date / Time No Known Allergies Allergy Verified 01/31/23 21:42 Review of Systems Review of Systems: A 10 system review of systems was completed on the patient and is negative except for what is stated in the HPI. Nursing and ancillary documentation was reviewed. [facility] Past Medical History Medical History CAD (coronary artery disease) s/p stent 20+ years ago per patient CHF (congestive heart failure) CKD (chronic kidney disease) COPD (chronic obstructive pulmonary disease) Diabetes mellitus GERD (gastroesophageal reflux disease) HLD (hyperlipidemia) HTN (hypertension) Hypothyroid Surgical History Surgical History History of partial hysterectomy Hx of appendectomy Hx of cholecystectomy Family History Family History Father Cerebrovascular accident Mother Diabetes mellitus Heart disease Sibling Throat cancer Renal failure Suicide Sibling Heart disease Social History Social History Smoking packs per day: 1 Smoking cigarettes per day: 20.0 Years smoked: 40 Smoking pack-years: 40.00 Smoking status: Former smoker Tobacco type: cigarettes Second hand tobacco smoke exposure: Yes Smoking end date: 02/15/19 Alcohol intake: former Alcohol use details: Social Lack of Transportation: No Lack of Food: Never True Current Housing: Decline to Answer Concerned About Future Housing: No Difficulty Paying Gas/Electric Bills: No Difficulty Paying for Meds: No Currently Unemployed: Decline to Answer Education: Grade School Occupation/Education: retired 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
[2023-02-01] VITALS (27 sets, daily range): BP systolic 120–156; BP diastolic 40–86; PULSE 61–94; RESP 16–22; TEMP 35.7–36.6; O2SAT 82–100; BMI 26.6
--- NOTE | 2023-02-01 | PM.IMHP ---
H&P: HPI History of Present Illness Date/Time: 02/01/23 00:00 Chief Complaint: SHORTNESS OF BREATH Narrative: THIS IS AN 82-YEAR-OLD FEMALE WITH PAST MEDICAL HISTORY SIGNIFICANT FOR COPD/EMPHYSEMA, HYPERTENSION, INSULIN-DEPENDENT DIABETES MELLITUS, HYPOTHYROIDISM, DYSLIPIDEMIA. PATIENT PRESENTED TO THE EMERGENCY ROOM AFTER HAVING A WEEK OR SO OF WORSENING SHORTNESS OF BREATH, WHEEZING, COUGH. PATIENT TESTED POSITIVE FOR COVID IN THE EMERGENCY ROOM. PATIENT DENIES ANY FEVERS, RIGORS, CHILLS HAS HAD POOR APPETITE AND POOR PER ORALLY INTAKE. EXAMINATION:? XR chest 1V portable Exam Date/Time:? 01/31/2023 21:35 PRINTING EQUIPMENT MECHANIC HISTORY: shortness of breath ? Comparison:? 10/09/2022. RESULT: Lines, tubes, and devices:? None. Lungs and pleura:? Mild diffuse reticular opacities. Right midlung scar. No focal consolidation, pleural effusion, or pneumothorax. Cardiomediastinal silhouette:? Stable. Other:? No acute osseous or upper abdominal finding. ? IMPRESSION: Mild interstitial edema. Review of Systems Review of Systems: SHORTNESS OF BREATH, POOR PER ORALLY INTAKE, POOR APPETITE. Constitutional: Constitutional: Denies chills, Reports fatigue, Denies fever(s), Denies night sweats, Reports poor appetite and Reports weakness Eyes: Eyes: Denies change in vision ENT: Denies dysphagia and Denies odynophagia Cardiovascular: Cardiovascular: Denies chest pain Respiratory: Respiratory: Reports cough, Reports dyspnea and Reports wheezing Gastrointestinal: Gastrointestinal: Denies abdominal pain, Denies dyspepsia, Denies nausea and Denies vomiting Genitourinary: Genitourinary: Reports no additional female genitourinary complaints and Reports as per HPI Musculoskeletal: Musculoskeletal: Reports myalgias and Reports muscle weakness Integumentary/Breasts: Skin/Breast: Denies rash Neurologic: Denies focal weakness and Denies Sensory deficit (Neuro) Psychiatric: Psychiatric: Reports no additional psychiatric complaints and Reports as per HPI Endocrine: Endocrine: Denies cold intolerance, Denies fatigue, Denies flushing, Denies heat intolerance, Denies polyphagia, Denies polydipsia and Denies palpitations Hematologic/Lymphatic: Hematologic/Lymphatic: Reports no additional hematologic/lymphatic complaints and Reports as per HPI Allergic/Immunologic: Allergic/Immunologic: Reports no additional allergic/immunologic complaints and Reports as per HPI [facility] Past Medical History Medical History CAD (coronary artery disease) s/p stent 20+ years ago per patient CHF (congestive heart failure) CKD (chronic kidney disease) COPD (chronic obstructive pulmonary disease) Diabetes mellitus GERD (gastroesophageal reflux disease) HLD (hyperlipidemia) HTN (hypertension) Hypothyroid Surgical History Surgical History History of partial hysterectomy Hx of appendectomy Hx of cholecystectomy Family History Family History Father Cerebrovascular accident Mother Diabetes mellitus Heart disease Sibling Throat cancer Renal failure Suicide Sibling Heart disease Social History Social History Smoking packs per day: 1 Smoking cigarettes per day: 20.0 Years smoked: 40 Smoking pack-years: 40.00 Smoking status: Former smoker Tobacco type: cigarettes Second hand tobacco smoke exposure: Yes Smoking end date: 02/15/19 Alcohol intake: former Alcohol use details: Social Substance use: never Do You Feel Safe in your Home?: Yes Lack of Transportation: No Lack of Food: Never True Current Housing: I Have Housing Concerned About Future Housing: No Difficulty Paying Gas/Electric Bills: No Difficulty Paying for Meds: No Currently Unemployed: No E
--- NOTE | 2023-02-01 00:45 | PC.NURSE ---
EDP aware of patient oxygen saturation; respiratory contacted for venturi mask.
[2023-02-01] MEDS: IPRATROPIUM BR 0.02% INH SOLN 0.5 MG/2.5 ML VIAL INHALATION ×4 (01:15→19:31)
[2023-02-01] MEDS: ALBUTEROL SULFATE NEB 2.5 MG/3 ML INH INHALATION ×4 (01:15→19:31)
[2023-02-01] MEDS: INSULIN HUMAN REGULAR (*BKC) 100 UNITS/ML 8 UNITS SUB-Q (01:22)
[2023-02-01] MEDS: REMDESIVIR 200 MG/NS 250 ML 200 MG/250 ML BAG 250 MG IVPB (01:26)
--- NOTE | 2023-02-01 02:48 | ADMGEN ---
This patient, Nikki Bonilla, was admitted to IMU Room 203-01 at 0150 on 02/01/23. Patient/family oriented to hospital policies and general routines including ID bracelet, bed and alarms, visiting hours, pain management, procedures, bathroom and other care routines, personal items, smoking policy, room service/diet, and visiting hours. Information on how to activate the Rapid Response Team has been discussed. Patient/Family are encouraged to report perceived risks to care and to ask questions if they do not understand what they are told or what they should do.
[2023-02-01 06:40] LABS: Troponin I 0.038 ng/mL (0.000-0.034)
[2023-02-01 08:10] LABS: Glucose Point of Care 43 mg/dl (65-105)
--- NOTE | 2023-02-01 08:22 | PC.NURSE ---
0800: Pt's called nurses stationg with information that her Dexcom was alarming with low blood glucose level of 43. Tech to room to check pt's blood glucose with our machine to verify blood glucose. Pt's blood glucose is 43 on our machine. No orders at this time for hypoglycemia. Call placed to Dr. Joe with no answer. Pt given two juices while RN awaits return phone call. Pt also received breakfast tray. Will recheck blood glucose in 15 minutes. 0816: Dr. Joe returned phone call. RN updated MD on pt's situation. New orders received for Adult Insulin set with hypoglycemic protocol.
[2023-02-01 08:39] LABS: Glucose Point of Care 84 mg/dl (65-105)
--- NOTE | 2023-02-01 08:46 | PM.IMPN ---
Progress Note: A&P Assessment and Plan (1) COVID-19: Code(s): U07.1 - COVID-19 Status: Acute Assessment and Plan: Decadron and remdesivir initiated 01/31, supportive care (2) Acute hypoxemic respiratory failure: Code(s): J96.01 - Acute respiratory failure with hypoxia Status: Acute Assessment and Plan: As above (3) COPD exacerbation: Code(s): J44.1 - Chronic obstructive pulmonary disease with (acute) exacerbation Status: Acute Assessment and Plan: Nebulizers, Decadron (4) CHF (congestive heart failure): Code(s): I50.9 - Heart failure, unspecified Status: Acute Assessment and Plan: Appears euvolemic (5) Chronic kidney disease, stage 3b: Code(s): N18.32 - Chronic kidney disease, stage 3b Status: Acute Assessment and Plan: Monitor creatinine, labs pending Plan DVT prophylaxis with Lovenox GI prophylaxis with PPI Code status full code Subjective Date/time seen: 02/01/23 08:46 Interval history: 82-year-old female with history of heart failure, CKD, COPD, diabetes and heart disease among other comorbidities is presenting with shortness of breath and currently being treated for COVID + COPD exacerbation. No overnight events noted. No chest pain. No nausea, vomiting or diarrhea. No fevers or chills. Review of Systems Review of Systems: 12 point review of systems was assessed and was negative except as noted in the HPI Exam Narrative: General: No acute distress, alert and oriented per baseline HEENT: Atraumatic, normocephalic, mucous membranes moist CV: Regular rate and rhythm, S1, S2 Lungs: coarse bs throughout, diminished Abdomen: Soft, nontender, nondistended Extremities: Normal to inspection Skin: No rashes noted, no lesions or wounds seen Psych: Euthymic, normal affect Objective Data Vital Signs Vital Signs: Vital Signs - 24 hr 01/31/23 21:02 01/31/23 21:15 01/31/23 21:50 Temperature 98.5 F Pulse Rate 110 H 87 Respiratory Rate 21 H 24 H Blood Pressure 148/62 H Pulse Oximetry 88 L 93 Oxygen Delivery Nasal Cannula Nasal Cannula Oxygen Flow Rate 8 5 01/31/23 22:05 01/31/23 22:10 02/01/23 00:45 Temperature Pulse Rate 80 Respiratory Rate 16 Blood Pressure 120/86 Pulse Oximetry 82 L 97 85 L Oxygen Delivery Nasal Cannula Non-Rebreather Mask Oxygen Flow Rate 6 15 02/01/23 01:16 02/01/23 01:24 02/01/23 01:36 Temperature Pulse Rate 82 85 Respiratory Rate 22 H 22 H Blood Pressure Pulse Oximetry 98 Oxygen Delivery Venturi Mask Oxygen Flow Rate 15 02/01/23 02:00 02/01/23 02:58 02/01/23 04:00 Temperature 97.8 F Pulse Rate 91 87 68 Respiratory Rate 22 H 20 Blood Pressure 139/46 L Pulse Oximetry 95 98 Oxygen Delivery High Flow Nasal Cannula Oxygen Flow Rate 8 02/01/23 04:00 02/01/23 04:00 02/01/23 06:00 Temperature 96.2 F L Pulse Rate 91 62 Respiratory Rate 22 H Blood Pressure 121/40 L Pulse Oximetry 99 95 Oxygen Delivery High Flow Nasal Cannula Oxygen Flow Rate 8 02/01/23 08:00 Temperature 97.7 F Pulse Rate 68 Respiratory Rate 20 Blood Pressure 155/58 H Pulse Oximetry 97 Oxygen Delivery Oxygen Flow Rate Intake/Output Intake/Output: Intake & Output 01/29/23 01/30/23 01/31/23 02/01/23 23:59 23:59 23:59 23:59 Intake Total 500 Balance 500 Meds/Results Medications: Active Medications Generic Name Dose Route Start Last Admin Trade Name Freq PRN Reason Stop Dose Admin Albuterol 2.5 mg 02/01/23 02:00 02/01/23 01:15 Albuterol Sulfate Neb 2.5 Mg/3 Ml Inh INHALATION 2.5 mg Q6HRT [facility] Administration Dexamethasone Sodium Phosphate 6 mg 02/01/23 21:00 Dexamethasone Sod Phos Inj 10 Mg/Ml 1 Ml Vial IV PUSH 02/10/23 21:01 Q24H COCO Dextrose 12.5 gm 02/01/23 08:17 Dextrose 50% 25 Gm/50 Ml Syringe IV PUSH PRN PRN Hyp
[2023-02-01 09:13] LABS: Basophils Percent Auto 0.5 % (0.2-1.2); Hematocrit 40.5 % (37.0-47.0); Hemoglobin 12.7 g/dL (12.0-15.0); Immature Granulocyte Absolute 0.08 K/mm3 (0.00-0.031); Lymphocytes Absolute Auto 0.78 K/mm3 (0.9-3.2); Lymphocytes Percent Auto 9.6 % (18.3-44.2); Mean Corpuscular HGB Conc 31.4 g/dl (32-36); Mean Corpuscular Hemoglobin 31.6 pg (26-34); Mean Corpuscular Volume 100.7 fl (80-100); Mean Platelet Volume 10.9 fl (7.4-10.4); Monocytes Absolute Auto 0.2 K/mm3 (0.1-0.6); Neutrophils Percent Auto 86.9 % (45.5-73.1); Platelet Count Result 230 k/mm3 (150-375); Red Blood Count 4.02 M/mm3 (4.2-5.4); Red Cell Distribution Width 12.6 % (11.5-14.5); White Blood Count 8.1 K/mm3 (4.5-10.0)
[2023-02-01] MEDS: ESCITALOPRAM OXALATE 10 MG TABLET PO (09:21)
[2023-02-01] MEDS: LEVOTHYROXINE SODIUM 12.5 MCG TABLET PO (09:21)
[2023-02-01] MEDS: LEVOTHYROXINE SODIUM 125 MCG TABLET PO (09:22)
[2023-02-01] MEDS: POTASSIUM CHLORIDE 20 MEQ ER TABLET PO (09:22)
[2023-02-01] MEDS: LOSARTAN POTASSIUM 50 MG TABLET PO (09:22)
[2023-02-01] MEDS: amLODIPine BESYLATE 5 MG TABLET PO (09:22)
[2023-02-01] MEDS: ASPIRIN 81 MG ENTERIC TABLET PO (09:22)
[2023-02-01] MEDS: METOPROLOL TARTRATE 25 MG TABLET PO ×2 (09:22→17:02)
[2023-02-01] MEDS: FUROSEMIDE 20 MG TABLET 60 MG PO (09:22)
[2023-02-01] MEDS: PANTOPRAZOLE 40 MG TABLET PO (09:23)
[2023-02-01 09:39] LABS: Alanine Aminotransferase 81 U/L (6-35); Albumin Level 3.6 g/dL (3.5-5.1); Alkaline Phosphatase 110 U/L (38-126); Anion Gap 11 mmol/L (8-16); Aspartate Amino Transferase 78 U/L (14-36); Bilirubin,Total 0.3 mg/dL (0.2-1.3); Blood Urea Nitrogen 54 mg/dL (7-17); Calcium 9.4 mg/dL (8.4-10.2); Carbon Dioxide 19 mmol/L (22-30); Chloride 108 mmol/L (98-107); Estimated CRCL calculation 23 ml/min; Estimated Glomerular Filt Rate 36; Glucose 152 mg/dL (65-110); Potassium 4.6 mmol/L (3.4-5.0); Sodium 138 mmol/L (137-145)
[2023-02-01 10:01] LABS: Hemoglobin A1C 6.8 % (<5.7)
[2023-02-01] MEDS: ENOXAPARIN 30 MG/0.3 ML SYRINGE SUB-Q (12:00)
[2023-02-01 12:40] LABS: Glucose Point of Care 89 mg/dl (65-105)
[2023-02-01] MEDS: BENZONATATE 100 MG CAPSULE 200 MG PO (12:53)
[2023-02-01] MEDS: LORazepam (*CRX) 0.5 MG TABLET PO ×2 (12:53→21:27)
[2023-02-01 17:08] LABS: Glucose Point of Care 171 mg/dl (65-105)
--- NOTE | 2023-02-01 18:36 | PC.NURSE ---
This patient, Nikki Bonilla, was transferred to [[facility]] on 02/01/23 at 1836. Personal belongings sent with patient. Report given to [ANDREW Dennison @ 2500]. Appropriate documentation sent with patient.
[2023-02-01] MEDS: THEOPHYLLINE ANHYDROUS 200 MG ER 24 HR CAPSULE 400 MG PO (21:27)
[2023-02-01] MEDS: MONTELUKAST SODIUM 10 MG TABLET PO (21:27)
[2023-02-01] MEDS: LOVASTATIN 20 MG TABLET PO (21:27)
[2023-02-01] MEDS: INSULIN ASPART (*BKC) 100 UNITS/ML SUB-Q (21:28)
[2023-02-01] MEDS: INSULIN GLARGINE (*BKC) 100 UNITS/ML 12 UNITS SUB-Q (21:28)
[2023-02-01] MEDS: REMDESIVIR 100 MG/NS 250 ML 100 MG/250 ML BAG 250 MG IVPB (21:29)
[2023-02-01 22:26] LABS: Glucose Point of Care 324 mg/dl (65-105)
[2023-02-02] VITALS (12 sets, daily range): BP systolic 117–152; BP diastolic 54–81; PULSE 63–89; RESP 20–32; TEMP 35.6–36.7; O2SAT 95–98
[2023-02-02] MEDS: IPRATROPIUM BR 0.02% INH SOLN 0.5 MG/2.5 ML VIAL INHALATION ×4 (02:02→22:49)
[2023-02-02] MEDS: ALBUTEROL SULFATE NEB 2.5 MG/3 ML INH INHALATION ×4 (02:02→22:49)
--- NOTE | 2023-02-02 05:26 | PC.NURSE ---
pt refused morning medications stated I don't need them , this RN educated pt on importance of medications, pt still refused to take morning medications
[2023-02-02 06:37] LABS: Basophils Percent Auto 0.1 % (0.2-1.2); Hematocrit 39.2 % (37.0-47.0); Hemoglobin 12.4 g/dL (12.0-15.0); Immature Granulocyte Absolute 0.05 K/mm3 (0.00-0.031); Immature Granulocyte Percent A 0.5 % (0-0.5); Lymphocytes Absolute Auto 0.48 K/mm3 (0.9-3.2); Lymphocytes Percent Auto 5.1 % (18.3-44.2); Mean Corpuscular HGB Conc 31.6 g/dl (32-36); Mean Corpuscular Hemoglobin 31.7 pg (26-34); Mean Corpuscular Volume 100.3 fl (80-100); Mean Platelet Volume 10.4 fl (7.4-10.4); Monocytes Absolute Auto 0.2 K/mm3 (0.1-0.6); Monocytes Percent Auto 1.6 % (2.6-8.5); Neutrophils Absolute Auto 8.7 K/mm3 (1.3-6.7); Neutrophils Percent Auto 92.7 % (45.5-73.1); Platelet Count Result 246 k/mm3 (150-375); Red Blood Count 3.91 M/mm3 (4.2-5.4); Red Cell Distribution Width 12.9 % (11.5-14.5); White Blood Count 9.4 K/mm3 (4.5-10.0)
[2023-02-02 07:03] LABS: Alanine Aminotransferase 83 U/L (6-35); Albumin Level 3.5 g/dL (3.5-5.1); Alkaline Phosphatase 110 U/L (38-126); Anion Gap 10 mmol/L (8-16); Aspartate Amino Transferase 49 U/L (14-36); Bilirubin,Total 0.3 mg/dL (0.2-1.3); Blood Urea Nitrogen 75 mg/dL (7-17); Carbon Dioxide 21 mmol/L (22-30); Chloride 105 mmol/L (98-107); Estimated CRCL calculation 22 ml/min; Estimated Glomerular Filt Rate 33; Glucose 516 mg/dL (65-110); Potassium 5.7 mmol/L (3.4-5.0); Sodium 136 mmol/L (137-145)
[2023-02-02 07:10] LABS: Glucose Point of Care 483 mg/dl (65-105)
[2023-02-02 07:10] LABS: Glucose Point of Care 471 mg/dl (65-105)
[2023-02-02 07:37] LABS: Glucose Point of Care 495 mg/dl (65-105)
[2023-02-02] MEDS: INSULIN ASPART (*BKC) 100 UNITS/ML 15 UNITS SUB-Q (09:10)
[2023-02-02] MEDS: INSULIN GLARGINE (*BKC) 100 UNITS/ML 10 UNITS SUB-Q (09:11)
[2023-02-02] MEDS: ASPIRIN 81 MG ENTERIC TABLET PO (09:13)
[2023-02-02] MEDS: POTASSIUM CHLORIDE 20 MEQ ER TABLET PO (09:13)
[2023-02-02] MEDS: ESCITALOPRAM OXALATE 10 MG TABLET PO (09:13)
[2023-02-02] MEDS: ENOXAPARIN 30 MG/0.3 ML SYRINGE SUB-Q (09:13)
[2023-02-02] MEDS: LOSARTAN POTASSIUM 50 MG TABLET PO (09:13)
[2023-02-02] MEDS: METOPROLOL TARTRATE 25 MG TABLET PO ×2 (09:13→17:15)
[2023-02-02] MEDS: FUROSEMIDE 20 MG TABLET 60 MG PO (09:15)
[2023-02-02] MEDS: amLODIPine BESYLATE 5 MG TABLET PO (09:15)
[2023-02-02] MEDS: PANTOPRAZOLE 40 MG TABLET PO (09:16)
[2023-02-02 11:21] LABS: Glucose Point of Care > 500 mg/dl (65-105)
[2023-02-02 11:52] LABS: Glucose Point of Care > 500 mg/dl (65-105)
[2023-02-02] MEDS: INSULIN ASPART (*BKC) 100 UNITS/ML 20 UNITS SUB-Q (11:58)
[2023-02-02 16:36] LABS: Glucose Point of Care 271 mg/dl (65-105)
[2023-02-02] MEDS: INSULIN ASPART (*BKC) 100 UNITS/ML SUB-Q ×2 (17:13→21:24)
--- NOTE | 2023-02-02 19:51 | PM.IMPN ---
Progress Note: A&P Assessment and Plan (1) COVID-19: Code(s): U07.1 - COVID-19 Status: Acute Assessment and Plan: Decadron and remdesivir initiated 01/31, supportive care (2) Acute hypoxemic respiratory failure: Code(s): J96.01 - Acute respiratory failure with hypoxia Status: Acute Assessment and Plan: As above (3) COPD exacerbation: Code(s): J44.1 - Chronic obstructive pulmonary disease with (acute) exacerbation Status: Acute Assessment and Plan: Nebulizers, Decadron (4) CHF (congestive heart failure): Code(s): I50.9 - Heart failure, unspecified Status: Acute Assessment and Plan: Appears euvolemic (5) Chronic kidney disease, stage 3b: Code(s): N18.32 - Chronic kidney disease, stage 3b Status: Acute Assessment and Plan: Monitor creatinine, labs pending (6) Diabetes mellitus: Code(s): E11.9 - Type 2 diabetes mellitus without complications Status: Acute Assessment and Plan: Accu-Cheks, sliding scale insulin, check A1c Glucose much higher while on dexamethasone, normally on Lantus 12 units nightly, given Lantus 25 units yesterday and again tonight, will need to go back to 12 when off Decadron Plan DVT prophylaxis with Lovenox GI prophylaxis with PPI Code status full code Subjective Date/time seen: 02/02/23 19:51 Interval history: 82-year-old female with history of heart failure, CKD, COPD, diabetes and heart disease among other comorbidities is presenting with shortness of breath and currently being treated for COVID + COPD exacerbation. No overnight events noted. No chest pain. No nausea, vomiting or diarrhea. No fevers or chills. Review of Systems Review of Systems: 12 point review of systems was assessed and was negative except as noted in the HPI Exam Narrative: General: No acute distress, alert and oriented per baseline HEENT: Atraumatic, normocephalic, mucous membranes moist CV: Regular rate and rhythm, S1, S2 Lungs: coarse bs throughout, diminished Abdomen: Soft, nontender, nondistended Extremities: Normal to inspection Skin: No rashes noted, no lesions or wounds seen Psych: Euthymic, normal affect Objective Data Vital Signs Vital Signs: Vital Signs - 24 hr 02/01/23 19:56 02/01/23 22:00 02/02/23 02:02 Temperature 96.7 F L Pulse Rate 88 69 88 Respiratory Rate 20 20 20 Blood Pressure 156/48 H Pulse Oximetry 95 97 Oxygen Delivery High Flow Nasal Cannula Oxygen Flow Rate 5 02/02/23 02:09 02/02/23 06:00 02/02/23 09:13 Temperature 96.1 F L Pulse Rate 89 63 80 Respiratory Rate 20 20 Blood Pressure 119/81 Pulse Oximetry 98 Oxygen Delivery Oxygen Flow Rate 02/02/23 09:30 02/02/23 09:30 02/02/23 09:40 Temperature Pulse Rate 88 88 87 Respiratory Rate 20 20 20 Blood Pressure Pulse Oximetry 96 Oxygen Delivery High Flow Nasal Cannula Oxygen Flow Rate 5 02/02/23 08:00 02/02/23 14:00 02/02/23 17:15 Temperature 97.1 F L Pulse Rate 80 63 69 Respiratory Rate 24 H Blood Pressure 117/64 Pulse Oximetry 98 97 Oxygen Delivery High Flow Nasal Cannula Oxygen Flow Rate 5 Intake/Output Intake/Output: Intake & Output 01/30/23 01/31/23 02/01/23 02/02/23 23:59 23:59 23:59 23:59 Intake Total 1100 1270 Balance 1100 1270 Meds/Results Medications: Active Medications Generic Name Dose Route Start Last Admin Trade Name Freq PRN Reason Stop Dose Admin Albuterol 2.5 mg 02/01/23 02:00 02/02/23 13:57 Albuterol Sulfate Neb 2.5 Mg/3 Ml Inh INHALATION 2.5 mg Q6HRT [facility]OCO Administration Albuterol 2.5 mg 02/01/23 08:49 Albuterol Sulfate Neb 2.5 Mg/3 Ml Inh INHALATION Q6H PRN shortness of breath or wheezing Amlodipine Besylate 5 mg 02/01/23 09:00 02/02/23 09:15 Amlodipine Besylate 5 Mg Tablet PO 5 mg DAILY COCO Administration Aspi
[2023-02-02 20:26] LABS: Glucose Point of Care 316 mg/dl (65-105)
[2023-02-02] MEDS: INSULIN GLARGINE (*BKC) 100 UNITS/ML 25 UNITS SUB-Q (21:25)
[2023-02-02] MEDS: REMDESIVIR 100 MG/NS 250 ML 100 MG/250 ML BAG 250 MG IVPB (21:28)
[2023-02-02] MEDS: LOVASTATIN 20 MG TABLET PO (21:28)
[2023-02-02] MEDS: MONTELUKAST SODIUM 10 MG TABLET PO (21:28)
[2023-02-02] MEDS: THEOPHYLLINE ANHYDROUS 200 MG ER 24 HR CAPSULE 400 MG PO (21:28)
[2023-02-02] MEDS: ACETAMINOPHEN 500 MG TABLET 1000 MG PO (23:15)
[2023-02-03] VITALS (8 sets, daily range): BP systolic 120–160; BP diastolic 39–58; PULSE 61–76; RESP 20–24; TEMP 36.1–36.6; O2SAT 91–96
--- NOTE | 2023-02-03 04:24 | PCRCNOTE ---
Patient was agitated to have been woke up for updraft treatment, therefore, refusing. Treatment to resume at 0800.
[2023-02-03] MEDS: LEVOTHYROXINE SODIUM 12.5 MCG TABLET PO (05:26)
[2023-02-03] MEDS: LEVOTHYROXINE SODIUM 125 MCG TABLET PO (05:26)
[2023-02-03 06:19] LABS: INR 1.2; Prothrombin Time 15.8 Seconds (11.1-14.7)
[2023-02-03 06:20] LABS: Alanine Aminotransferase 77 U/L (6-35); Albumin Level 3.5 g/dL (3.5-5.1); Alkaline Phosphatase 105 U/L (38-126); Anion Gap 4 mmol/L (8-16); Aspartate Amino Transferase 51 U/L (14-36); Basophils Percent Auto 0.2 % (0.2-1.2); Bilirubin,Total 0.4 mg/dL (0.2-1.3); Blood Urea Nitrogen 71 mg/dL (7-17); Calcium 9.2 mg/dL (8.4-10.2); Carbon Dioxide 25 mmol/L (22-30); Chloride 105 mmol/L (98-107); Estimated CRCL calculation 25 ml/min; Estimated Glomerular Filt Rate 39; Glucose 245 mg/dL (65-110); Hematocrit 40.1 % (37.0-47.0); Hemoglobin 12.8 g/dL (12.0-15.0); Immature Granulocyte Percent A 1.3 % (0-0.5); Lymphocytes Absolute Auto 0.71 K/mm3 (0.9-3.2); Lymphocytes Percent Auto 4.7 % (18.3-44.2); Mean Corpuscular HGB Conc 31.9 g/dl (32-36); Mean Corpuscular Hemoglobin 31.8 pg (26-34); Mean Corpuscular Volume 99.8 fl (80-100); Mean Platelet Volume 10.5 fl (7.4-10.4); Monocytes Absolute Auto 0.5 K/mm3 (0.1-0.6); Monocytes Percent Auto 3.2 % (2.6-8.5); Neutrophils Absolute Auto 13.8 K/mm3 (1.3-6.7); Neutrophils Percent Auto 90.6 % (45.5-73.1); Platelet Count Result 300 k/mm3 (150-375); Potassium 4.6 mmol/L (3.4-5.0); Red Blood Count 4.02 M/mm3 (4.2-5.4); Red Cell Distribution Width 12.4 % (11.5-14.5); Sodium 134 mmol/L (137-145); White Blood Count 15.2 K/mm3 (4.5-10.0)
[2023-02-03 07:27] LABS: Glucose Point of Care 238 mg/dl (65-105)
[2023-02-03] MEDS: INSULIN ASPART (*BKC) 100 UNITS/ML SUB-Q ×4 (08:51→21:34)
[2023-02-03] MEDS: ENOXAPARIN 30 MG/0.3 ML SYRINGE SUB-Q (08:52)
[2023-02-03] MEDS: ASPIRIN 81 MG ENTERIC TABLET PO (08:53)
[2023-02-03] MEDS: LOSARTAN POTASSIUM 50 MG TABLET PO (08:53)
[2023-02-03] MEDS: METOPROLOL TARTRATE 25 MG TABLET PO ×2 (08:53→16:41)
[2023-02-03] MEDS: ESCITALOPRAM OXALATE 10 MG TABLET PO (08:53)
[2023-02-03] MEDS: FUROSEMIDE 20 MG TABLET 60 MG PO (08:53)
[2023-02-03] MEDS: PANTOPRAZOLE 40 MG TABLET PO (08:54)
[2023-02-03] MEDS: amLODIPine BESYLATE 5 MG TABLET PO (08:54)
[2023-02-03] MEDS: POTASSIUM CHLORIDE 20 MEQ ER TABLET PO (08:54)
--- NOTE | 2023-02-03 09:26 | P.CDI_ITS ---
CDI Query Clarification Request Documented history of CHF. CHF noted in the assessment and plan. Elevated BNP on 01/31/23 lab work. Edema noted on the chest xray. Patient receiving Lasix Lasix listed as a home medication. Please specify type and acuity of heart failure if known. * Acute * Chronic * Acute on Chronic * Unknown * Systolic * Diastolic * Combined Systolic and Diastolic * Unknown
[2023-02-03 11:39] LABS: Glucose Point of Care 270 mg/dl (65-105)
[2023-02-03] MEDS: ALBUTEROL SULFATE (*SP) AEROSOL 1 PUFF 2 PUFF INHALATION ×2 (12:03→21:39)
[2023-02-03] MEDS: ALBUTEROL SULFATE (*SP) INHALER 1 PUFF (12:11)
[2023-02-03 16:47] LABS: Glucose Point of Care 228 mg/dl (65-105)
--- NOTE | 2023-02-03 17:21 | PM.IMPN ---
Progress Note: A&P Assessment and Plan (1) COVID-19: Code(s): U07.1 - COVID-19 Status: Acute Assessment and Plan: Patient presents with shortness of breath and tested positive for COVID on 01/31/2023. She has been vaccinated. Decadron and remdesivir initiated 01/31 Oxygen requirement is stable. Wean oxygen to baseline. Change nebulizer treatments to MDI. Supportive care. (2) Acute and chronic respiratory failure: Code(s): J96.20 - Acute and chronic respiratory failure, unspecified whether with hypoxia or hypercapnia Status: Acute Assessment and Plan: Patient is on home O2 at 3-4 L. she has been weaned to 5 L and tolerating this well. Continue to wean oxygen as tolerated. (3) COPD exacerbation: Code(s): J44.1 - Chronic obstructive pulmonary disease with (acute) exacerbation Status: Acute Assessment and Plan: As above. Continue albuterol and Atrovent MDI. Continue steroids in the form of dexamethasone. (4) CHF (congestive heart failure): Code(s): I50.9 - Heart failure, unspecified Status: Acute Assessment and Plan: Clinically patient appears euvolemic. BNP was 1490. Chest x-ray does show mild interstitial edema. Echocardiogram from November 2022 shows EF 60-65% with grade 1 diastolic dysfunction and no pulmonary hypertension. Patient with acute on chronic diastolic CHF. She has been continued on her home Lasix dose. Repeat x-ray in the morning. (5) Chronic kidney disease, stage 3b: Code(s): N18.32 - Chronic kidney disease, stage 3b Status: Acute Assessment and Plan: Patient with CKD. Baseline creatinine was 1.3 in November. Creatinine here was 1.5 and has trended back down to 1.3. Continue to monitor. (6) Diabetes mellitus: Code(s): E11.9 - Type 2 diabetes mellitus without complications Status: Acute Assessment and Plan: A1c 6.8%. The patient's blood glucose was reviewed on 02/03 Glucose remains poorly controlled related to the dexamethasone. Normally on Lantus 12 units QHS. Patient given Lantus 25 units 02/01 and continued nightly. Continue AccuCheks covering with sliding scale. Hypoglycemia protocol available as needed. Advance lantus again Plan DVT prophylaxis with Lovenox GI prophylaxis with PPI Code status full code Subjective Date/time seen: 02/03/23 17:21 Interval history: 82-year-old female with CHF, CKD, COPD, DM and heart disease who presents with shortness of breath and currently being treated for COVID + COPD exacerbation. Assuming care. Chart reviewed. Her cough is better. No chest pain. Shortness of breath is improved. She normally wears 3-4 L of oxygen chronically at home. History is limited because of her hearing loss. Exam Narrative: AF 97.0 120/39 66 20 95% ra Gen - NARD Chest - expiratory wheezes, good air exchange CV - RRR S1/S2 Abd - Soft, NT/ND, Positive BS Ext - No pedal edema Neuro - [place], Psych - Nml mood and affect Skin - Warm and dry Objective Data Vital Signs Vital Signs: Vital Signs - 24 hr 02/02/23 22:33 02/02/23 22:49 02/02/23 22:51 Temperature 98.1 F Pulse Rate 65 66 66 Respiratory Rate 32 H 24 H Blood Pressure 152/54 H Pulse Oximetry 95 96 Oxygen Delivery High Flow Nasal Cannula Oxygen Flow Rate 5 02/03/23 05:11 02/03/23 08:53 02/03/23 08:00 Temperature 98 F Pulse Rate 64 76 76 Respiratory Rate 20 Blood Pressure 123/49 L Pulse Oximetry 91 91 Oxygen Delivery High Flow Nasal Cannula Oxygen Flow Rate 5 02/03/23 12:16 02/03/23 14:00 02/03/23 16:41 Temperature 97.0 F L Pulse Rate 66 65 66 Respiratory Rate 20 Blood Pressure 120/39 L Pulse Oximetry 91 95 Oxygen Delivery High Flow Nasal Cannula Oxygen Flow Rate 5 Intake/Output Intake/Output: Intake & Output 01/31/23 02/01/23 02/02/23 02/03/23 23:59 23:59 23:59 23:59 Intake Total 1350 1520 510 B
[2023-02-03 20:47] LABS: Glucose Point of Care 249 mg/dl (65-105)
[2023-02-03] MEDS: LOVASTATIN 20 MG TABLET PO (21:35)
[2023-02-03] MEDS: INSULIN GLARGINE (*BKC) 100 UNITS/ML 30 UNITS SUB-Q (21:35)
[2023-02-03] MEDS: MONTELUKAST SODIUM 10 MG TABLET PO (21:35)
[2023-02-03] MEDS: REMDESIVIR 100 MG/NS 250 ML 100 MG/250 ML BAG 250 MG IVPB (21:35)
[2023-02-03] MEDS: THEOPHYLLINE ANHYDROUS 200 MG ER 24 HR CAPSULE 400 MG PO (21:35)
[2023-02-03] MEDS: ACETAMINOPHEN 325 MG TABLET 650 MG PO (21:36)
[2023-02-03] MEDS: BENZONATATE 100 MG CAPSULE 200 MG PO (21:36)
[2023-02-03] MEDS: LORazepam (*CRX) 0.5 MG TABLET PO (21:36)
[2023-02-04] MEDS: ALBUTEROL SULFATE (*SP) AEROSOL 1 PUFF 2 PUFF INHALATION ×3 (03:04→21:50)
[2023-02-04 03:11] VITALS: O2SAT 91
[2023-02-04 05:35] VITALS: BP 153/53; PULSE 67; RESP 20; TEMP 35.7; O2SAT 91
[2023-02-04] MEDS: LEVOTHYROXINE SODIUM 125 MCG TABLET PO (05:37)
[2023-02-04] MEDS: LEVOTHYROXINE SODIUM 12.5 MCG TABLET PO (05:37)
[2023-02-04 06:28] LABS: Basophils Percent Auto 0.2 % (0.2-1.2); Hematocrit 44.5 % (37.0-47.0); Hemoglobin 13.7 g/dL (12.0-15.0); Immature Granulocyte Absolute 0.17 K/mm3 (0.00-0.031); Immature Granulocyte Percent A 1.6 % (0-0.5); Lymphocytes Absolute Auto 0.76 K/mm3 (0.9-3.2); Lymphocytes Percent Auto 7.2 % (18.3-44.2); Mean Corpuscular HGB Conc 30.8 g/dl (32-36); Mean Corpuscular Hemoglobin 31.2 pg (26-34); Mean Corpuscular Volume 101.4 fl (80-100); Mean Platelet Volume 10.5 fl (7.4-10.4); Monocytes Absolute Auto 0.2 K/mm3 (0.1-0.6); Monocytes Percent Auto 2.1 % (2.6-8.5); Neutrophils Absolute Auto 9.4 K/mm3 (1.3-6.7); Neutrophils Percent Auto 88.9 % (45.5-73.1); Platelet Count Result 316 k/mm3 (150-375); Red Blood Count 4.39 M/mm3 (4.2-5.4); Red Cell Distribution Width 12.6 % (11.5-14.5); White Blood Count 10.6 K/mm3 (4.5-10.0)
[2023-02-04 06:41] LABS: Alanine Aminotransferase 82 U/L (6-35); Albumin Level 3.7 g/dL (3.5-5.1); Alkaline Phosphatase 111 U/L (38-126); Anion Gap 4 mmol/L (8-16); Aspartate Amino Transferase 49 U/L (14-36); Bilirubin,Total 0.4 mg/dL (0.2-1.3); Blood Urea Nitrogen 67 mg/dL (7-17); Calcium 9.1 mg/dL (8.4-10.2); Carbon Dioxide 30 mmol/L (22-30); Chloride 106 mmol/L (98-107); Estimated CRCL calculation 25 ml/min; Estimated Glomerular Filt Rate 39; Glucose 222 mg/dL (65-110); Potassium 4.7 mmol/L (3.4-5.0); Sodium 140 mmol/L (137-145)
[2023-02-04 08:00] VITALS: O2SAT 94
[2023-02-04 08:23] LABS: Glucose Point of Care 205 mg/dl (65-105)
[2023-02-04] MEDS: amLODIPine BESYLATE 5 MG TABLET PO (09:23)
[2023-02-04] MEDS: METOPROLOL TARTRATE 25 MG TABLET PO ×2 (09:23→17:38)
[2023-02-04] MEDS: FUROSEMIDE 20 MG TABLET 60 MG PO (09:23)
[2023-02-04] MEDS: LOSARTAN POTASSIUM 50 MG TABLET PO (09:23)
[2023-02-04] MEDS: ESCITALOPRAM OXALATE 10 MG TABLET PO (09:23)
[2023-02-04] MEDS: EMPAGLIFLOZIN 10 MG TABLET PO (09:23)
[2023-02-04] MEDS: PANTOPRAZOLE 40 MG TABLET PO (09:24)
[2023-02-04] MEDS: ENOXAPARIN 30 MG/0.3 ML SYRINGE SUB-Q (09:24)
[2023-02-04] MEDS: ASPIRIN 81 MG ENTERIC TABLET PO (09:24)
[2023-02-04] MEDS: POTASSIUM CHLORIDE 20 MEQ ER TABLET PO (09:24)
[2023-02-04 11:40] LABS: Glucose Point of Care 422 mg/dl (65-105)
[2023-02-04 12:14] LABS: Glucose Point of Care 392 mg/dl (65-105)
[2023-02-04] MEDS: INSULIN ASPART (*BKC) 100 UNITS/ML SUB-Q ×4 (12:32→21:24)
[2023-02-04 15:12] VITALS: BP 132/46; PULSE 57; RESP 12; TEMP 35.6; O2SAT 97
[2023-02-04 17:02] LABS: Glucose Point of Care 279 mg/dl (65-105)
--- NOTE | 2023-02-04 17:14 | PC.NURSE ---
Multiple attempts to contact [facility] to report to receiving nurse unsuccessful. Disaster Recovery Consultant stated to call back at a later time.
--- NOTE | 2023-02-04 17:14 | PM.IMPN ---
Progress Note: A&P Assessment and Plan (1) COVID-19: Code(s): U07.1 - COVID-19 Status: Acute Assessment and Plan: Patient presents with shortness of breath and tested positive for COVID on 01/31/2023. She has been vaccinated. Decadron and remdesivir initiated 01/31 Oxygen requirement is mildly above bseline but stable. Wean oxygen to baseline. Continue MDI. Supportive care. (2) Acute and chronic respiratory failure: Code(s): J96.20 - Acute and chronic respiratory failure, unspecified whether with hypoxia or hypercapnia Status: Acute Assessment and Plan: Patient is on home O2 at 3-4 L. she was up to 15L but has been weaned to 5 L and tolerating this well. Continue to wean oxygen as tolerated. Home O2 evaluation (3) COPD exacerbation: Code(s): J44.1 - Chronic obstructive pulmonary disease with (acute) exacerbation Status: Acute Assessment and Plan: As above. Continue albuterol and Atrovent MDI. Continue steroids in the form of dexamethasone and change to Predisone at discharge (4) CHF (congestive heart failure): Code(s): I50.9 - Heart failure, unspecified Status: Acute Assessment and Plan: Clinically patient appears euvolemic. BNP was 1490. Chest x-ray does show mild interstitial edema. Echocardiogram from November 2022 shows EF 60-65% with grade 1 diastolic dysfunction and no pulmonary hypertension. Patient with acute on chronic diastolic CHF. She has been continued on her home Lasix dose. Repeat x-ray clear (5) Chronic kidney disease, stage 3b: Code(s): N18.32 - Chronic kidney disease, stage 3b Status: Acute Assessment and Plan: Patient with CKD. Baseline creatinine was 1.3 in November. Creatinine here was 1.5 and has trended back down to 1.3. Continue to monitor. (6) Diabetes mellitus: Code(s): E11.9 - Type 2 diabetes mellitus without complications Status: Acute Assessment and Plan: A1c 6.8%. The patient's blood glucose was reviewed on 02/04 Glucose remains poorly controlled related to the dexamethasone. Normally on Lantus 12 units QHS. Lantus advanced to 30 units Continue AccuCheks covering with sliding scale. Hypoglycemia protocol available as needed. Advance lantus and add meal time insulin Plan DVT prophylaxis with Lovenox GI prophylaxis with PPI Code status full code Subjective Date/time seen: 02/04/23 17:14 Interval history: 82-year-old female with CHF, CKD, COPD, DM and heart disease who presents with shortness of breath and currently being treated for COVID + COPD exacerbation. SOB better. Up to the chair and ambulating in the room. No CP. Eating okay. Exam Narrative: AF 96.0 132/46 57 12 97% 5L Gen - NARD Chest - distant breath sounds with few basilr rhonchi and scatted expiratory wheezes. CV - RRR S1/S2 Abd - Soft, NT/ND, Positive BS Ext - No pedal edema Neuro - KAW Psych - Nml mood and affect Skin - Warm and dry Objective Data Vital Signs Vital Signs: Vital Signs - 24 hr 02/03/23 20:00 02/03/23 19:55 02/04/23 03:11 Temperature 97.2 F L Pulse Rate 66 61 Respiratory Rate 20 24 H Blood Pressure 160/58 H Pulse Oximetry 95 96 91 Oxygen Delivery High Flow Nasal Cannula High Flow Nasal Cannula Oxygen Flow Rate 5 5 02/04/23 05:35 02/04/23 09:31 02/04/23 08:00 Temperature 96.3 F L Pulse Rate 67 Respiratory Rate 20 Blood Pressure 153/53 H Pulse Oximetry 91 94 Oxygen Delivery Nasal Cannula Nasal Cannula Oxygen Flow Rate 5 5 02/04/23 15:12 Temperature 96.0 F L Pulse Rate 57 L Respiratory Rate 12 Blood Pressure 132/46 L Pulse Oximetry 97 Oxygen Delivery Oxygen Flow Rate Intake/Output Intake/Output: Intake & Output 02/01/23 02/02/23 02/03/23 02/04/23 23:59 23:59 23:59 23:59 Intake Total 1350 1520 1120 1190 Balance 1350 1520 1120 1190 Meds/Results Medications: Active Medications
[2023-02-04 20:18] VITALS: BP 137/48; PULSE 55; RESP 16; TEMP 36; O2SAT 97
[2023-02-04] MEDS: LOVASTATIN 20 MG TABLET PO (21:22)
[2023-02-04] MEDS: THEOPHYLLINE ANHYDROUS 200 MG ER 24 HR CAPSULE 400 MG PO (21:22)
[2023-02-04] MEDS: MONTELUKAST SODIUM 10 MG TABLET PO (21:22)
[2023-02-04] MEDS: INSULIN GLARGINE (*BKC) 100 UNITS/ML 40 UNITS SUB-Q (21:22)
[2023-02-04] MEDS: LORazepam (*CRX) 0.5 MG TABLET PO (21:43)
[2023-02-04 22:03] LABS: Glucose Point of Care 275 mg/dl (65-105)
[2023-02-04] MEDS: REMDESIVIR 100 MG/NS 250 ML 100 MG/250 ML BAG 250 MG IVPB (22:45)
[2023-02-05] VITALS (8 sets, daily range): BP systolic 131; BP diastolic 47; PULSE 64–95; RESP 16–20; TEMP 36.3; O2SAT 91–98
[2023-02-05] MEDS: ALBUTEROL SULFATE (*SP) AEROSOL 1 PUFF 2 PUFF INHALATION ×3 (02:43→12:59)
[2023-02-05] MEDS: LEVOTHYROXINE SODIUM 12.5 MCG TABLET PO (06:34)
[2023-02-05] MEDS: LEVOTHYROXINE SODIUM 125 MCG TABLET PO (06:34)
[2023-02-05] MEDS: amLODIPine BESYLATE 5 MG TABLET PO (09:01)
[2023-02-05] MEDS: FUROSEMIDE 20 MG TABLET 60 MG PO (09:01)
[2023-02-05] MEDS: POTASSIUM CHLORIDE 20 MEQ ER TABLET PO (09:01)
[2023-02-05] MEDS: LOSARTAN POTASSIUM 50 MG TABLET PO (09:01)
[2023-02-05] MEDS: PANTOPRAZOLE 40 MG TABLET PO (09:01)
[2023-02-05] MEDS: ASPIRIN 81 MG ENTERIC TABLET PO (09:01)
[2023-02-05] MEDS: EMPAGLIFLOZIN 10 MG TABLET PO (09:01)
[2023-02-05] MEDS: ESCITALOPRAM OXALATE 10 MG TABLET PO (09:01)
[2023-02-05 09:02] LABS: Glucose Point of Care 133 mg/dl (65-105)
[2023-02-05] MEDS: METOPROLOL TARTRATE 25 MG TABLET PO (09:02)
[2023-02-05] MEDS: ENOXAPARIN 30 MG/0.3 ML SYRINGE SUB-Q (09:08)
[2023-02-05] MEDS: INSULIN ASPART (*BKC) 100 UNITS/ML SUB-Q (09:08)
--- NOTE | 2023-02-05 11:35 | PCRCNOTE ---
Home O2 eval done, 4 L rest and activity. Pt has Mak, son will bring in portable O2 tank from home when d/c
[2023-02-05 11:54] LABS: Glucose Point of Care 210 mg/dl (65-105)
--- NOTE | 2023-02-05 13:52 | PM.DS ---
DS: Admitting Diagnosis Discharge Date 02/05/23 Admitting Diagnosis Shortness of breath DS: Discharge Diagnosis Discharge Diagnosis (1) COVID-19: Code(s): U07.1 - COVID-19 Status: Acute (2) Acute and chronic respiratory failure: Code(s): J96.20 - Acute and chronic respiratory failure, unspecified whether with hypoxia or hypercapnia Status: Acute (3) COPD exacerbation: Code(s): J44.1 - Chronic obstructive pulmonary disease with (acute) exacerbation Status: Acute (4) CHF (congestive heart failure): Code(s): I50.9 - Heart failure, unspecified Status: Acute (5) Chronic kidney disease, stage 3b: Code(s): N18.32 - Chronic kidney disease, stage 3b Status: Acute (6) Diabetes mellitus: Code(s): E11.9 - Type 2 diabetes mellitus without complications Status: Acute DS: Summary Hospital Course Reason for hospitalization: 82yo female with CHF, CKD, COPD, DM and heart disease who presents with shortness of breath and currently being treated for COVID + COPD exacerbation. Hospital Course: Patient presents with shortness of breath and tested positive for COVID on 01/31/2023.? She has been vaccinated. Decadron and remdesivir initiated 01/31 and she completed 5 days of Remdesivir. Oxygen requirement was mildly above baseline but stable. Patient is on home O2 at 3-4 L. she was up to 15L but has been weaned back to her baseline oxygen requirement. She wsa treated with Decadron but still having faint wheezing. She state this is chronic so no plans for steroids at discharge. Patient with acute on chronic diastolic CHF. BNP was 1490.? Chest x-ray does show mild interstitial edema. Echocardiogram from November 2022 shows EF 60-65% with grade 1 diastolic dysfunction and no pulmonary hypertension. Repeat x-ray clear. Clinically patient appears euvolemic now.? Patient with CKD.? Baseline creatinine was 1.3 in November. Creatinine here was 1.5 and has trended back down to 1.3. A1c 6.8%.? The patient's blood glucose was poorly controlled related to the dexamethasone. She was monitored with AccuCheks covering with sliding scale.? Hypoglycemia protocol available as needed.?She did well overall. She was ambulating in the room. She had a home O2 evaluation showing she needed 4L at rest and with activity. She was able to be discharged home on 02/05/23 Status at Discharge Cognitive/behavioral status at discharge: stable Time Spent with Patient Time attestation: Total time spent providing and/or coordinating discharge services: 38 minutes Time spent: Greater than 30 minutes Exam Narrative: AF 97.4 131/47 95 20 93% 4L Gen - NARD Chest - distant breath sounds with few scatted expiratory wheezes. CV - RRR S1/S2 Abd - Soft, NT/ND, Positive BS Ext - No pedal edema Neuro - TELIDA Psych - Nml mood and affect Skin - Warm and dry DS: Data Data Completed and Pending Labs on day of discharge: Labs from last 24 hours 02/05/23 02/05/23 02/04/23 11:48 08:40 20:07 POC Capillary Glucose 210 H 133 H 275 H 02/04/23 16:43 POC Capillary Glucose 279 H Preliminary micro results at discharge 01/31/23 22:21 Blood Culture - Preliminary Blood 01/31/23 22:21 Blood Culture - Preliminary Blood Discharge Plan Discharge Attending physician on discharge: Yanick Johnson Discharging Clinician: Yanick Johnson Anticipated Discharge Date/Time: 02/05/23 14:07 Patient Disposition: Home, Self-Care Activity: as tolerated Diet: diabetic Discharge Instructions: Please avoid large gathering, wear face coverings in public and practice social distance through 02/10/23. Please check glucose before meals and before bed. Record and bring into your doctor for review. Check blood pressure 1 to 2 times a day. Record and bring into your doctor for review. Call your doctor if your blood pressure is greater than 180/110. Take precautions to ann marie
== END 2023-02-05 14:42 | disposition home or self-care (01) | DRG 177 ==
LOC: ANHED 23:20 → ANHIMU 02-01 01:07 → ANH3MEDSUR 02-01 18:39
PROVIDERS: Student in an Organized Health Care Education/Training Program; Admitting Provider Internal Medicine; Emergency Provider Emergency Medicine; PCP Internal Medicine; Visit Provider Internal Medicine
DX: U07.1 COVID-19 (principal); I50.33 Acute on chronic diastolic (congestive) heart failure; J96.20 Acute and chronic respiratory failure, unspecified whether with hypoxia or hypercapnia; I13.0 Hypertensive heart and chronic kidney disease with heart failure and stage 1 through stage 4 chronic kidney disease, or unspecified chronic kidney disease; J44.1 Chronic obstructive pulmonary disease with (acute) exacerbation; N18.32 Chronic kidney disease, stage 3b; I25.10 Atherosclerotic heart disease of native coronary artery without angina pectoris; K21.9 Gastro-esophageal reflux disease without esophagitis; E78.5 Hyperlipidemia, unspecified; E03.9 Hypothyroidism, unspecified; Z99.81 Dependence on supplemental oxygen; Z79.4 Long term (current) use of insulin; Z79.82 Long term (current) use of aspirin; Z95.5 Presence of coronary angioplasty implant and graft; Z87.891 Personal history of nicotine dependence
CPT/HCPCS: 36415; 36600; 71045; 80053; 82248; 82805; 82948; 83036; 83605; 83735; 83880; 84145; 84484; 85025; 85610; 85730; 87040; 87637; 93005; 94618; 94640; 96365; 96372; 96375; 97161; 97165; 97530; 97535; 99285; A9270; G0378; J0248; J1100; J1650; J1815

== ENCOUNTER 2023-04-02 10:09 | Observation (INO) | payer MEDICARE, SELFPAY ==
[2023-04-02] VITALS (21 sets, daily range): BP systolic 99–180; BP diastolic 58–93; PULSE 59–87; RESP 18–32; TEMP 36.5–37.1; O2SAT 90–100; BMI 26.9
--- NOTE | ~2023-04-02 | XR_ITS ---
EXAMINATION: XR chest 1V portable DATE: 04/04/2023 04:35 INDICATION: Shortness of breath TECHNIQUE: frontal view of the chest was obtained. COMPARISON: Chest radiograph dated 04/02/[address] dated 04/12/2020 FINDINGS: Unchanged mild streaky atelectasis/scarring atelectasis/scarring at the lung bases and more prominent bandlike discoid atelectasis/scarring at the lingula. No new airspace opacities, pleural effusion or pneumothorax. Heart size is normal. IMPRESSION: 1. Unchanged atelectasis/scarring in the lower lung zones. Reviewed, dictated and finalized at location A. CONDUCTOR
--- NOTE | ~2023-04-02 | XR_ITS ---
EXAMINATION: XR chest 1V portable DATE: 04/02/2023 10:44 INDICATION: Dyspnea TECHNIQUE: frontal view of the chest was obtained. COMPARISON: Chest radiograph dated 02/04/[address] dated 04/12/2020 FINDINGS: Bandlike opacity at the left mid to lower lung zone which corresponds to a chronic discoid atelectasi s/scarring which is seen in the lingula on the prior CT. No other airspace opacities, pulmonary edema , pleural effusion or pneumothorax. The cardiomediastinal silhouette is normal. IMPRESSION: 1. Chronic lingular discoid atelectasis/scarring. Reviewed, dictated and finalized at location A. PRINTER
--- NOTE | 2023-04-02 10:18 | ED.GENADULT ---
HPI - General Adult General Chief complaint: Shortness of Breath/Dyspnea Stated complaint: SOB Time Seen by Provider: 04/02/23 10:12 History of Present Illness HPI narrative: The patient is an 82-year-old woman with history of COPD, on 4 L at all times, no pulmonary hypertension, CHF EF 60-65%, chronic kidney disease stage IIIB but creatinine baseline 1.3, history of acute on chronic respiratory failure due to COVID-19 admitted at [facility] 01/31/2023 for 5 days, treated with remdesivir therapy and discharged. Since that time, she has felt much better than usual. Other comorbidities include GERD, hypertension, hypothyroidism, hyperlipidemia, insulin-dependent diabetes, ex-smoker. On aspirin 81 mg daily. Prior operations include hysterectomy appendectomy cholecystectomy. She is vaccinated against COVID-19. She presents with a 2 day history of increasing shortness of breath, with wheezing. She feels fatigued and tired. She does have a cough productive of clear mucus, no change from baseline. She does have new rhinorrhea as well as chest discomfort in the lateral aspect of her rib cage that she describes as soreness. Did feel warm last night but did not take her temperature. No chills or diaphoresis. No nasal congestion or sore throat or earache or changes in her voice or abdominal pain or vomiting. Occasional nausea, had an episode this morning but that has resolved. No urinary symptoms such as hematuria urgency frequency or dysuria. No back pain. Some of her symptoms that she is experiencing are similar to her COVID-19 symptoms in January 2023. Related Data Home Medications Medication Instructions Recorded Confirmed insulin glargine 100 unit/mL (3 12 unit subcut HS 05/15/21 04/02/23 mL) subcutaneous pen (Lantus Solostar U-100 Insulin) insulin lispro 100 unit/mL See Protocol subcut DAILY 05/15/21 04/02/23 subcutaneous pen (Humalog KwikPen (U-100) Insulin) levothyroxine 137 mcg tablet 137 mcg PO DAILY 05/15/21 04/02/23 lovastatin 20 mg tablet 20 mg PO HS 05/15/21 04/02/23 omeprazole 40 mg capsule,delayed 40 mg PO DAILY 05/15/21 04/02/23 release aspirin 81 mg tablet,delayed 81 mg PO DAILY 09/26/21 04/02/23 release montelukast 10 mg tablet 10 mg PO HS 09/26/21 04/02/23 potassium chloride 10 mEq 20 meq PO DAILY 09/26/21 04/02/23 tablet,extended release (Klor-Con) escitalopram oxalate 10 mg tablet 10 mg PO DAILY 12/07/22 04/02/23 furosemide 40 mg tablet 60 mg PO DAILY 02/01/23 04/02/23 theophylline 400 mg 400 mg PO HS 02/01/23 04/02/23 tablet,extended release 24 hr Allergies Allergy/AdvReac Type Severity Reaction Status Date / Time No Known Allergies Allergy Verified 04/02/23 10:31 Review of Systems Review of Systems: All systems reviewed & are unremarkable except as noted in HPI and below Constitutional: Constitutional: Denies chills, Denies excessive sweating, Reports fatigue, Reports fever(s), Denies headache(s) and Reports weakness Eyes: Eyes: Denies change in vision and Denies photophobia ENT: Denies dysphagia, Denies dizziness, Denies headache(s) (positive for rhinorrhea.), Denies lip swelling, Denies nasal congestion, Denies sore throat and Denies tongue swelling Cardiovascular: Cardiovascular: Reports chest pain (at both lateral aspects of the ribcage), Denies syncope, Denies rapid heart rate and Denies dyspnea Respiratory: Respiratory: Reports cough (with clear mucous production, no change from baseline), Reports dyspnea (worse than usual over the past 2 days) and Reports wheezing Gastrointestinal: Gastrointestinal: Denies abdominal pain, Denies constipation, Denies dysphagia, Denies diarrhea, Reports nausea and Denies vomiting Genitourinary: Genitourinary: Denies hematuria, Denies urinary frequency, Denies dysuria and Denies urinary urgency Musculoskeletal: Musculoskeletal: Denies back pain, Denies myalgias, Denies arthralgias, Denies joint swelling and Denies numbness Integumentar
--- NOTE | 2023-04-02 10:23 | ECG_ITS ---
Measurements Intervals [place] Rate: 64 P: 69 IA: 181 QRS: 100 QRSD: 114 T: 43 QT: 427 QTc: 443 Interpretive Statements SINUS RHYTHM WITH MARKED SINUS ARRHYTHMIA RIGHTWARD aXIS MODERATE INTRAVENTRICULAR CONDUCTION DELAY [110+ ms QRS DURATION] NONSPECIFIC ST SEGMENT ABNORMALITY ABNORMAL ECG COMPARED TO ECG 01/31/2023 21:13:31 HEART RATE IS REDUCED AND LATERAL ST SEGMENT DEPRESSION IS IMPROVED Electronically Signed On 04-02-2023 15:00:50 DOOR OPENER by Kameron Flower M.D.
[2023-04-02] MEDS: methylPREDNISolone SOD SUCC 125 MG VIAL 80 MG IV PUSH (10:43)
[2023-04-02 10:44] LABS: Basophils Percent Auto 1.2 % (0.0-1.0); Eosinophils Absolute Auto 0.05 K/mm3 (0.02-0.50); Eosinophils Percent Auto 0.6 % (1.0-6.0); Hematocrit 45.9 % (35.0-42.0); Immature Granulocyte Absolute 0.04 K/mm3 (0.00-0.00); Immature Granulocyte Percent A 0.5 % (0.0-0.0); Lymphocytes Absolute Auto 1.04 K/mm3 (1.10-4.50); Lymphocytes Percent Auto 12.4 % (18.0-42.0); Mean Corpuscular HGB Conc 30.5 g/dL (32.0-36.0); Mean Corpuscular Hemoglobin 30.6 pg (27.0-31.0); Mean Corpuscular Volume 100.2 fL (78.0-102.0); Mean Platelet Volume 10.6 fl (9.2-11.8); Monocytes Percent Auto 7.2 % (2.0-11.0); Neutrophils Absolute Auto 6.5 K/mm3 (1.7-7.2); Neutrophils Percent Auto 78.1 % (50.0-70.0); Platelet Count Result 208 K/mm3 (150-420); Red Blood Count 4.58 M/mm3 (4.20-5.40); Red Cell Distribution Width 12.3 % (11.6-14.4); White Blood Count 8.4 K/mm3 (4.8-10.8)
[2023-04-02] MEDS: BENZONATATE 100 MG CAPSULE PO ×2 (10:46→23:40)
[2023-04-02] MEDS: guaiFENesin/DEXTROMETHORPHAN 5 ML UDC 10 ML PO (10:47)
[2023-04-02] MEDS: IPRATROPIUM 0.5 MG/ALBUTEROL SULFATE 2.5 MG AMPUL.NEB 3 ML INHALATION ×4 (10:49→22:46)
[2023-04-02] MEDS: MAGNESIUM SULF 2 GM/WATER 50ML 2 GM/50 ML BAG IVPB (10:49)
[2023-04-02 10:56] LABS: D Dimer 0.41 mg/L (0.19-0.50)
[2023-04-02 10:59] LABS: Influenza A QL RT-PCR Negative (Negative); Influenza B QL RT-PCR Negative (Negative); RSV RNA, RT-PCR Positive (Negative); SARS-CoV-2 RNA PCR Negative (Negative)
[2023-04-02 11:06] LABS: Lactic Acid Reflex 1.1 mmol/L (0.4-2.0)
[2023-04-02 11:07] LABS: Alanine Aminotransferase 41 U/L (14-59); Albumin Level 3.3 g/dL (3.4-5.0); Alkaline Phosphatase 89 U/L (46-116); Anion Gap 9 mmol/L (8-16); Aspartate Amino Transferase 29 U/L (15-37); Bilirubin,Total 0.2 mg/dL (0.00-1.00); Blood Urea Nitrogen 44 mg/dL (7-18); Carbon Dioxide 26 mmol/L (21-32); Chloride 109 mmol/L (98-108); Estimated CRCL calculation 23 ml/min; Estimated Glomerular Filt Rate 36; Glucose 299 mg/dL (70-99); NT Pro B Type Natriuretic Pept 4057 pg/mL (0-450); Osmolality Calculated 320 mOsm/kg (285-295); Potassium 5.1 mmol/L (3.5-5.1); Sodium 144 mmol/L (136-145); Total Protein 7.3 g/dL (6.4-8.2); Troponin I 45.6 ng/L (0.00-60.4)
[2023-04-02 11:11] LABS: CRP < 0.5 mg/dL (0.0-0.9)
[2023-04-02] MEDS: ACETAMINOPHEN 325 MG TABLET 975 MG PO (11:43)
[2023-04-02] MEDS: traMADol HCL (*CRX) 50 MG TABLET PO (11:44)
[2023-04-02 11:52] LABS: Erythrocyte Sedimentation Rate 24 mm/hr (0-20)
[2023-04-02 12:14] LABS: Base Excess ABG -6.1 mmol/L (0-2); HCO3 ABG 22.1 mmol/L (23-29); Oxygen Content ABG 19.7 %vol (16.0-22.0); Oxygen Saturation ABG 96.6 % (95-97); Oxyhemoglobin 95.5 % (94-100); PCO2 ABG 54.8 mmHg (35-45); PO2 ABG 98.3 mmHg (75-85); Total Hemoglobin 14.6 g/dL (12.0-18.0); pH ABG 7.22 (7.35-7.45)
[2023-04-02 12:15] LABS: Device NASAL CANNULA; Modified Allen's Test Pass; Site Drawn LEFT RADIAL
[2023-04-02 12:41] LABS: Glucose Point of Care 213 mg/dl (65-105)
[2023-04-02] MEDS: INSULIN HUMAN REGULAR (*BKC) 1,000 UNITS/10 ML VIAL 3 UNITS SUB-Q (13:00)
--- NOTE | 2023-04-02 13:25 | ADMGEN ---
This patient, Nikki Bonilla, was admitted to 2nd Floor Room 201-1. Patient/family oriented to hospital policies and general routines including ID bracelet, bed and alarms, visiting hours, pain management, procedures, bathroom and other care routines, personal items, smoking policy, room service/diet, and visiting hours. Information on how to activate the Rapid Response Team has been discussed. Patient/Family are encouraged to report perceived risks to care and to ask questions if they do not understand what they are told or what they should do.
[2023-04-02] MEDS: INSULIN HUMAN LISPRO (*BKC) 1,000 UNITS/10 ML VIAL SUB-Q (16:46)
[2023-04-02 16:49] LABS: Glucose Point of Care 257 mg/dl (65-105)
[2023-04-02 21:25] LABS: Glucose Point of Care 286 mg/dl (65-105)
[2023-04-02] MEDS: methylPREDNISolone SOD SUCC 125 MG VIAL 40 MG IV PUSH (21:28)
[2023-04-02] MEDS: HYDROcodone/acetaminophen (*CRX) 5-325 MG TABLET 1 TAB PO (21:29)
[2023-04-02] MEDS: MONTELUKAST SODIUM 10 MG TABLET PO (21:29)
[2023-04-02] MEDS: LOVASTATIN 20 MG TABLET PO (21:30)
[2023-04-02] MEDS: INSULIN GLARGINE (*BKC) 1,000 UNITS/10 ML VIAL 12 UNITS SUB-Q (21:31)
[2023-04-02] MEDS: guaiFENesin 200 MG/10 ML UDC PO (23:40)
[2023-04-03] VITALS (12 sets, daily range): BP systolic 155–182; BP diastolic 60–65; PULSE 74–89; RESP 20–32; TEMP 36.3–36.5; O2SAT 67–100
[2023-04-03 05:17] LABS: Hematocrit 40.9 % (35.0-42.0); Hemoglobin 12.6 g/dL (11.7-13.8); Immature Granulocyte Absolute 0.06 K/mm3 (0.00-0.00); Immature Granulocyte Percent A 0.9 % (0.0-0.0); Lymphocytes Absolute Auto 0.52 K/mm3 (1.10-4.50); Lymphocytes Percent Auto 8.2 % (18.0-42.0); Mean Corpuscular HGB Conc 30.8 g/dL (32.0-36.0); Mean Corpuscular Hemoglobin 30.4 pg (27.0-31.0); Mean Corpuscular Volume 98.6 fL (78.0-102.0); Mean Platelet Volume 10.8 fl (9.2-11.8); Monocytes Absolute Auto 0.13 K/mm3 (0.10-0.90); Monocytes Percent Auto 2.1 % (2.0-11.0); Neutrophils Absolute Auto 5.6 K/mm3 (1.7-7.2); Neutrophils Percent Auto 88.8 % (50.0-70.0); Platelet Count Result 182 K/mm3 (150-420); Red Blood Count 4.15 M/mm3 (4.20-5.40); Red Cell Distribution Width 12.3 % (11.6-14.4); White Blood Count 6.3 K/mm3 (4.8-10.8)
[2023-04-03 05:25] LABS: Anion Gap 11 mmol/L (8-16); Blood Urea Nitrogen 43 mg/dL (7-18); Calcium 8.3 mg/dL (8.5-10.1); Carbon Dioxide 24 mmol/L (21-32); Chloride 105 mmol/L (98-108); Estimated CRCL calculation 23 ml/min; Estimated Glomerular Filt Rate 36; Glucose 327 mg/dL (70-99); Osmolality Calculated 313 mOsm/kg (285-295); Potassium 5.2 mmol/L (3.5-5.1); Sodium 140 mmol/L (136-145)
[2023-04-03] MEDS: methylPREDNISolone SOD SUCC 125 MG VIAL 40 MG IV PUSH (05:35)
[2023-04-03] MEDS: LEVOTHYROXINE SODIUM 25 MCG TABLET PO (05:35)
--- NOTE | 2023-04-03 07:05 | PC.NURSE ---
When attempting to give pt AM nebulizer, states she uses mouthpiece at home. Underwear Welter obtained mouthpiece, when returned to room, pt noted to have removed O2. SPO2 at 70%. O2 reapplied, and only recovered to 74% on 4L/NC, increased to 5L, with little effectiveness. Mask obtained, O2 increased to 6L/NC, SPO2 recovers to 93%.
[2023-04-03] MEDS: ACETAMINOPHEN 325 MG TABLET 650 MG PO (07:45)
--- NOTE | 2023-04-03 07:55 | PC.NURSE ---
Pt O2 saturation returned to normal range. PT swithced back to nasal canula at 4l. Currently pt sitting at bedside doing slow breathing exercises.
[2023-04-03] MEDS: LORazepam INJ (*CRX) 2 MG/ML VIAL 1 MG IV PUSH (08:02)
[2023-04-03] MEDS: IPRATROPIUM 0.5 MG/ALBUTEROL SULFATE 2.5 MG AMPUL.NEB 3 ML INHALATION ×4 (08:03→23:12)
[2023-04-03] MEDS: INSULIN HUMAN LISPRO (*BKC) 1,000 UNITS/10 ML VIAL SUB-Q ×2 (08:21→12:58)
[2023-04-03] MEDS: FUROSEMIDE 20 MG TABLET 60 MG PO (09:34)
[2023-04-03] MEDS: METOPROLOL TARTRATE 25 MG TABLET PO ×2 (09:34→21:00)
[2023-04-03] MEDS: ASPIRIN 81 MG ENTERIC TABLET PO (09:34)
[2023-04-03] MEDS: POTASSIUM CHLORIDE 20 MEQ ER TABLET PO (09:34)
[2023-04-03] MEDS: PANTOPRAZOLE 40 MG TABLET PO ×2 (09:35→20:59)
[2023-04-03] MEDS: ESCITALOPRAM OXALATE 10 MG TABLET PO (09:35)
--- NOTE | 2023-04-03 09:43 | PM.IMHP ---
H&P: HPI History of Present Illness Date/Time: 04/03/23 09:43 Chief Complaint: RSV, COPD Exacerbation Narrative: This is a 82 year old female with a pmh of COPd, Hypertension, Type 2 Diabetes Insulin Dependet , Hypothyroidism. Dyslipedemia,HTN, CAD s/p stent 20+ yrs ago, HLD, GERD, panic attacks. ?Patient is on 4l of oxygen at home and never takes her oxygen off. Patient desaturate with activity at home. Patient has not been feeling well for the past couple of days and has required increased oxygen. During her hosptial visit patient was found to have RSV and is requiring more the 4l of oxygen and [facility] Patient has panic attacks when she moves to much and puts her into respiratory distress. Patient take ativan which take her a while to calm down and her saturation to return to normal. Mrs Chad Rosales lip breaths and she is pale and sits in Tripod position or she states she is more comfortable laying down. Patient ABg Show she is Acidotic at 7.22 on 4l with no CO2 retention noted. Patient is using accessory muscle family at bedside but states this is how she normally is although she normally feels better with ability to do activity a little more. After review of her labs from her hospital stay in [place] her ph was. 7.306. Patient wants to rtemain a full code we will continue to administer IV steroids and breathing treatment . Question weather she is in need of antibiotics but we will hold off at this point and monitor if she worsen I will start antibiotics . CXR 10/09/22 - Bibasilar atelectasis. Chronic lingular atelectasis/scarring. PFT 11/03/19 - Moderate airflow obstruction with hyperinflation, air trapping and severely reduced diffusion capacity; no acute bronchodilator response. This correlates with COPD. FEV1/FVC 42%, FEV1 0.93L, DLCO 30%. Home O2 Eval 11/03/19 shows need for 2L O2 exertion, none at rest. ABG 05/15/21 - 7.44/33.6/89.5/22.5/96.6% on 3L. Echo 05/2021 - EF 60-65%, diastolic dysfunction, moderate pulmHTN. CXR 3/31/22 - chronic lingular discoid atelectasis/scarring. No acute CP disease. Review of Systems Review of Systems: Hypoxia, All systems reviewed & are unremarkable except as noted in HPI and below PMFSH Past Medical History Medical History CAD (coronary artery disease) s/p stent 20+ years ago per patient CHF (congestive heart failure) CKD (chronic kidney disease) COPD (chronic obstructive pulmonary disease) Diabetes mellitus GERD (gastroesophageal reflux disease) HLD (hyperlipidemia) HTN (hypertension) Hypothyroid Surgical History Surgical History History of partial hysterectomy Hx of appendectomy Hx of cholecystectomy Family History Family History Father Cerebrovascular accident Mother Diabetes mellitus Heart disease Sibling Throat cancer Renal failure Suicide Sibling Heart disease Social History Social History Smoking packs per day: 1 Smoking cigarettes per day: 20.0 Years smoked: 40 Smoking pack-years: 40.00 Smoking status: Former smoker Tobacco type: cigarettes Second hand tobacco smoke exposure: Yes Smoking end date: 02/15/19 Alcohol intake: never Alcohol use details: Social Substance use: never Do You Feel Safe in your Home?: Yes Lack of Transportation: No Lack of Food: Never True Current Housing: I Have Housing Concerned About Future Housing: No Difficulty Paying Gas/Electric Bills: No Difficulty Paying for Meds: No Currently Unemployed: No Education: High School Diploma/GED Difficulty w/ Childcare or Family Care: No Occupation/Education: retired 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
[2023-04-03 12:06] LABS: Glucose Point of Care > 450 mg/dl (65-105)
[2023-04-03 12:45] LABS: Glucose 539 mg/dL (70-99)
[2023-04-03] MEDS: INSULIN HUMAN LISPRO (*BKC) 1,000 UNITS/10 ML VIAL 10 UNITS SUB-Q (12:59)
[2023-04-03] MEDS: INSULIN HUMAN LISPRO (*BKC) 1,000 UNITS/10 ML VIAL 4 UNITS SUB-Q (17:06)
[2023-04-03 17:09] LABS: Glucose Point of Care 167 mg/dl (65-105)
[2023-04-03] MEDS: HYDROcodone/acetaminophen (*CRX) 5-325 MG TABLET 1 TAB PO (17:16)
[2023-04-03] MEDS: LORazepam (*CRX) 0.5 MG TABLET PO ×2 (17:29→23:15)
[2023-04-03] MEDS: methylPREDNISolone SOD SUCC 40 MG VIAL IV PUSH (18:05)
--- NOTE | 2023-04-03 19:02 | PC.NURSE ---
resp staff in with pt for duoneb. concerned change since this morning. charge nurse efraín notified possible need for repeat abg's, cpap. report to kalen akers. all questions answered.
--- NOTE | 2023-04-03 19:18 | PC.NURSE ---
1800 update given to reliability engineer. that she gets very winded and resp go up to 38 with any sot of exertion. at rest resp are 24. jessie higuera has given her prn [facility]. sleeping at this time. [address] Air Conditioner Installer Helper aware of RT concern that she is different than the last time she was with her earily this am and during night. claims she is more coarse and wheezy. claims she is more confused. requests reliability engineer aware. ABG being ordered and lab aware.
[2023-04-03 19:26] LABS: Base Excess ABG -5.7 mmol/L (0-2); Oxygen Content ABG 18.2 %vol (16.0-22.0); Oxygen Saturation ABG 88.1 % (95-97); PCO2 ABG 58.1 mmHg (35-45); PO2 ABG 55.8 mmHg (75-85); Total Hemoglobin 14.9 g/dL (12.0-18.0); pH ABG 7.22 (7.35-7.45)
[2023-04-03 19:28] LABS: Device NASAL CANNULA; Modified Allen's Test Pass; Site Drawn LEFT RADIAL
[2023-04-03] MEDS: FUROSEMIDE INJ 20 MG/2 ML VIAL IV PUSH (19:30)
[2023-04-03 20:56] LABS: Glucose Point of Care 90 mg/dl (65-105)
[2023-04-03] MEDS: MONTELUKAST SODIUM 10 MG TABLET PO (20:59)
[2023-04-03] MEDS: BENZONATATE 100 MG CAPSULE PO (21:00)
[2023-04-03] MEDS: LOVASTATIN 20 MG TABLET PO (21:00)
[2023-04-03] MEDS: THEOPHYLLINE ANHYDROUS 200 MG ER 24 HR CAPSULE 400 MG PO (22:10)
[2023-04-03 23:37] LABS: Base Excess ABG -3.8 mmol/L (0-2); HCO3 ABG 25.8 mmol/L (23-29); Oxygen Saturation ABG 98.6 % (95-97); Oxyhemoglobin 97.4 % (94-100); PCO2 ABG 68.4 mmHg (35-45); PO2 ABG 156.1 mmHg (75-85); Total Hemoglobin 14.4 g/dL (12.0-18.0)
[2023-04-03 23:38] LABS: Modified Allen's Test Pass; Site Drawn LEFT RADIAL
[2023-04-03 23:43] LABS: Device OTHER DEVICE
[2023-04-04] VITALS: BP 148/66; PULSE 85; RESP 32; TEMP 36.7; O2SAT 88
--- NOTE | 2023-04-04 00:19 | PC.NURSE ---
Pt continues to remove AVAPS mask with pt desating to 56%, RT attempted O2 mask without success (pt continued to remove mask), nasal cannula applied for short time to get pt moved to room closer to nurses station. Pt moved to room 206 to ensure O2 remains on. RT with pt attempting to get AVAPS mechanical vent remains in place.
[2023-04-04] MEDS: HYDROcodone/acetaminophen (*CRX) 5-325 MG TABLET 1 TAB PO (00:33)
--- NOTE | 2023-04-04 00:41 | PC.NURSE ---
RT unable to keep AVAPS mechanical ventilator on, pt continually removes. Pt able to keep simple O2 mask on with 8L. Abdominal/labored breathing continues. Pt seems more calm since Ativan administration.
--- NOTE | 2023-04-04 01:01 | PCRCNOTE ---
Pt w/ labored breathing, fine diminished crackles, alt mental status, and john. wheezes... Pt has history of copd and chf. According to day shift she has been having respiratory issues throughout day shift. RT suspect that pt may have some issues with fluid while assessing pt while giving tx. RT spoke with both nursing and the physician. Physician decided to get ABG and place pt on NIV. Pt placed on AVAPS. RT found pt off V60 with sat in 60s. Pt placed back on V60. Post NIV ABG ordered and complete with worsening blood gas. Physician contacted by charge. RT tried to changed setting improve gas. Pt didnt basilio. per continue to remove V60 refusing to wear. Pt moved to room closer to nurses station for monitoring. Awaiting call back from physician.
--- NOTE | 2023-04-04 03:28 | P.PNCROSS_ITS ---
Event Note Event Note Event Note: [facility] phone call from Respiratory therapist who felt like patient needed a BIPAP and she was started on bipap rate of 24, TV 500 Although patient did not tolerate the bipap for long after she had removed the bipap a ABG PH 7.22 CO2 is [address] her mask on When I arrived she was at 8 l at 100%. Patient was using accessories muscle and perched lips breathing . I did speak with respiratory to see if we could decrease her to 4l if she was 100% to see if she could tolerate lower oxygen. Patient is 92% on 4l of oxygen.. I have order patient to have IV Azithromycin Call placed to [facility] no bed availability Call placed to [facility] in which they will return my phone call to inform me if they could accommodate. Faxed face sheet to [phone] Call placed to [facility] to see if they are able to accommodate patient needs
[2023-04-04] MEDS: AZITHROMYCIN 500 MG/NS 250 ML 500 MG/250 ML BAG 250 MG IVPB (03:30)
[2023-04-04 04:30] LABS: Base Excess ABG -2.3 mmol/L (0-2); HCO3 ABG 26.9 mmol/L (23-29); Oxygen Content ABG 15.7 %vol (16.0-22.0); Oxygen Saturation ABG 80.8 % (95-97); PO2 ABG 47.1 mmHg (75-85); pH ABG 7.22 (7.35-7.45)
[2023-04-04 04:31] LABS: Device NASAL CANNULA; Modified Allen's Test Pass; Site Drawn RIGHT RADIAL
[2023-04-04 04:35] LABS: Hematocrit 40.8 % (35.0-42.0); Hemoglobin 12.4 g/dL (11.7-13.8); Mean Corpuscular HGB Conc 30.4 g/dL (32.0-36.0); Mean Corpuscular Hemoglobin 30.6 pg (27.0-31.0); Mean Corpuscular Volume 100.7 fL (78.0-102.0); Mean Platelet Volume 10.8 fl (9.2-11.8); Platelet Count Result 224 K/mm3 (150-420); Red Blood Count 4.05 M/mm3 (4.20-5.40); Red Cell Distribution Width 12.6 % (11.6-14.4)
[2023-04-04] MEDS: LORazepam (*CRX) 0.5 MG TABLET PO (04:41)
[2023-04-04 04:59] LABS: Anion Gap 7 mmol/L (8-16); Blood Urea Nitrogen 76 mg/dL (7-18); Carbon Dioxide 31 mmol/L (21-32); Chloride 107 mmol/L (98-108); Estimated CRCL calculation 20 ml/min; Estimated Glomerular Filt Rate 29; Glucose 118 mg/dL (70-99); NT Pro B Type Natriuretic Pept 29025 pg/mL (0-450); Osmolality Calculated 323 mOsm/kg (285-295); Potassium 5.6 mmol/L (3.5-5.1); Sodium 145 mmol/L (136-145)
--- NOTE | 2023-04-04 04:59 | PM.TDS ---
Transfer Discharge Sum: Prov Provider Date of admission: 04/02/23 13:04 Primary care physician: Scott Galvez MD Admitting clinician: Marcellus Johnson MD Attending physician on admission: Yanick Johnson Attending physician on discharge: Yanick Johnson Discharging clinician: Raymond Lozano Anticipated date of transfer: 04/04/23 Receiving physician/facility: [facility] ICU Dr. Xiong DS: Admitting Diagnosis Discharge Date 04/04/2023 Admitting Diagnosis Respiratory distress , COPD exacerbation, RSV DS: Discharge Diagnosis Discharge Diagnosis Plan Hypercapnia, RSV COPD exacerbation , Acute kidney injury Transfer Discharge Sum: Med Medications Active and Home Medications: Home Medications insulin glargine 100 unit/mL (3 mL) subcutaneous pen (Lantus Solostar U-100 Insulin) 12 unit subcut HS 05/15/21 [History Confirmed 04/02/23] insulin lispro 100 unit/mL subcutaneous pen (Humalog KwikPen (U-100) Insulin) See Protocol subcut DAILY 05/15/21 [History Confirmed 04/02/23] levothyroxine 137 mcg tablet 137 mcg PO DAILY 05/15/21 [History Confirmed 04/02/23] lovastatin 20 mg tablet 20 mg PO HS 05/15/21 [History Confirmed 04/02/23] omeprazole 40 mg capsule,delayed release 40 mg PO DAILY 05/15/21 [History Confirmed 04/02/23] aspirin 81 mg tablet,delayed release 81 mg PO DAILY 09/26/21 [History Confirmed 04/02/23] montelukast 10 mg tablet 10 mg PO HS 09/26/21 [History Confirmed 04/02/23] potassium chloride 10 mEq tablet,extended release (Klor-Con) 20 meq PO DAILY 09/26/21 [History Confirmed 04/02/23] Breo Ellipta 100 mcg-25 mcg/dose powder for inhalation (fluticasone furoate-vilanterol) See Rx Instructions .Route .COMPLEX #180 ea 09/24/22 [Rx Confirmed 04/02/23] albuterol sulfate 2.5 mg/3 mL (0.083 %) solution for nebulization 2.5 mg (3 mL) inhalation Q6H PRN shortness of breath or wheezing #360 mL 11/10/22 [Rx Confirmed 04/02/23] ipratropium bromide 0.02 % solution for inhalation 2.5 ml inhalation Q6H PRN shortness of breath or wheezing #300 mL 11/10/22 [Rx Confirmed 04/02/23] escitalopram oxalate 10 mg tablet 10 mg PO DAILY 12/07/22 [History Confirmed 04/02/23] furosemide 40 mg tablet 60 mg PO DAILY 02/01/23 [History Confirmed 04/02/23] theophylline 400 mg tablet,extended release 24 hr 400 mg PO HS 02/01/23 [History Confirmed 04/02/23] benzonatate 200 mg capsule 200 mg PO TID PRN cough #90 caps 03/10/23 [Rx Confirmed 04/02/23] Active Medications Acetaminophen (Acetaminophen 325 Mg Tablet) 650 mg PO Q4H PRN PRN Reason: Mild Pain (1-3) or Fever Last Admin: 04/03/23 07:45 Dose: 650 mg Hydrocodone Bitart/Acetaminophen (Hydrocodone/Acetaminophen (*Crx) 5-325 Mg Tablet) 1 tab PO Q4H PRN PRN Reason: Moderate Pain (4-6) Last Admin: 04/04/23 00:33 Dose: 1 tab Albuterol/Ipratropium (Ipratropium 0.5 Mg/Albuterol Sulfate 2.5 Mg Ampul.Neb 3 Ml) 3 ml INHALATION Q6HRT [facility] Last Admin: 04/03/23 23:12 Dose: 3 ml Aspirin (Aspirin 81 Mg Enteric Tablet) 81 mg PO DAILY [facility] Last Admin: 04/03/23 09:34 Dose: 81 mg Benzonatate (Benzonatate 100 Mg Capsule) 100 mg PO TID PRN PRN Reason: Cough Last Admin: 04/03/23 21:00 Dose: 100 mg Dextrose (Dextrose 50% 25 Gm/50 Ml Syringe) 12.5 gm IV PUSH PRN PRN; Protocol PRN Reason: Hypoglycemia Escitalopram Oxalate (Escitalopram Oxalate 10 Mg Tablet) 10 mg PO DAILY [facility] Last Admin: 04/03/23 09:35 Dose: 10 mg Furosemide (Furosemide 20 Mg Tablet) 60 mg PO DAILY [facility] Last Admin: 04/03/23 09:34 Dose: 60 mg Glucagon (Glucagon For Inj 1 Mg Vial) 1 mg IM PRN PRN; Protocol PRN Reason: Hypoglycemia Glucose (Glucose Oral Gel 15 Gm Of Glucse In 37.5 Gm Tube) 15 gm PO PRN PRN; Protocol PRN Reason: Hypoglycemia Guaifenesin (Guaifenesin 200 Mg/10 Ml Udc) 200 mg PO Q4H PRN PRN Reason: Cough Last Admin: 04/02/23 23:40 Dose: 200 mg Dextrose (Dextrose 5% 1,000 Ml) 1,000 mls @ 100 mls/hr IVPB PRN PRN; Protocol PRN Reason: Hypoglycemia Azithromycin (Zithromax) 500 mg in 250 mls
[2023-04-04] MEDS: FUROSEMIDE INJ 40 MG/4 ML VIAL IV PUSH (05:22)
[2023-04-04] MEDS: methylPREDNISolone SOD SUCC 40 MG VIAL IV PUSH (05:22)
--- NOTE | 2023-04-04 05:40 | PC.NURSE ---
At 0520 spoke with son, aware of change in condition and transfer to [facility]. At 0525 [facility] here to transport pt. Son arrived at 0530. Pt left facility at 0535 via [facility] ambulance service with 2 wool tamper, son to follow in personal car. SUSAN Andrade, present and aware of pt transfer.
== END 2023-04-04 05:35 | disposition short-term general hospital (02) ==
LOC: CHSED 12:54 → CHS2ND 13:13
PROVIDERS: Nurse Practitioner Family; Admitting Provider Internal Medicine; Emergency Provider Emergency Medicine; PCP Internal Medicine; Visit Provider Internal Medicine
DX: J96.21 Acute and chronic respiratory failure with hypoxia (principal); J96.22 Acute and chronic respiratory failure with hypercapnia; J44.0 Chronic obstructive pulmonary disease with (acute) lower respiratory infection; J21.0 Acute bronchiolitis due to respiratory syncytial virus; J44.1 Chronic obstructive pulmonary disease with (acute) exacerbation; Z99.81 Dependence on supplemental oxygen; R07.89 Other chest pain; J34.89 Other specified disorders of nose and nasal sinuses; Z20.822 Contact with and (suspected) exposure to COVID-19; I13.0 Hypertensive heart and chronic kidney disease with heart failure and stage 1 through stage 4 chronic kidney disease, or unspecified chronic kidney disease; N17.9 Acute kidney failure, unspecified; E11.22 Type 2 diabetes mellitus with diabetic chronic kidney disease; N18.32 Chronic kidney disease, stage 3b; I50.9 Heart failure, unspecified; R94.31 Abnormal electrocardiogram [ECG] [EKG]; E03.9 Hypothyroidism, unspecified; E78.5 Hyperlipidemia, unspecified; I25.10 Atherosclerotic heart disease of native coronary artery without angina pectoris; Z95.5 Presence of coronary angioplasty implant and graft; K21.9 Gastro-esophageal reflux disease without esophagitis; F41.0 Panic disorder [episodic paroxysmal anxiety]; Z83.3 Family history of diabetes mellitus; Z82.49 Family history of ischemic heart disease and other diseases of the circulatory system; Z87.891 Personal history of nicotine dependence; Z79.4 Long term (current) use of insulin; Z79.82 Long term (current) use of aspirin; Z79.51 Long term (current) use of inhaled steroids; Z79.899 Other long term (current) drug therapy
CPT/HCPCS: 36415; 36600; 71045; 80048; 80053; 82805; 82947; 82948; 83605; 83880; 84484; 85025; 85027; 85380; 85652; 86140; 87637; 93005; 94640; 96365; 96367; 96375; 96376; 99285; A9270; G0378; J0456; J1815; J1940; J2060; J2920; J2930; J3475

== ENCOUNTER 2023-06-01 09:09 | Emergency (ER) | payer MEDICARE, SELFPAY ==
[2023-06-01] VITALS (36 sets, daily range): BP systolic 141–211; BP diastolic 49–99; PULSE 79–116; RESP 15–30; TEMP 37.1; O2SAT 74–98
--- NOTE | ~2023-06-01 | CT_ITS ---
Clinical Indication: Pulmonary embolus CT Scan of the Chest with Contrast: Technique: Contiguous sections were acquired throughout the chest after intravenous administration of 100 cc of Omnipaque 350. Dose reduction technique was used on this scan by utilizing automated expos ure control and iterative reconstruction technique. The dose-length product (DLP) was 304.95 mGy-cm. Findings: Exam mildly degraded by motion artifact. There is no evidence of any significant mediastinal, hilar or axillary lymphadenopathy. No pulmonary embolus identified. There is no evidence of aortic dissection or aneurysm. There is no evidence of pleural or pericardial effusion. The lungs are clear. No pulmonary nodules or infiltrates are noted. Suspected emphysema. Images through the upper abdomen reveal no abnormalities. Impression: No evidence of pulmonary embolus, aortic dissection, or aortic aneurysm. Suspected emphysema. Reviewed, dictated and finalized at [facility]. Impression: No evidence of pulmonary embolus, aortic dissection, or aortic aneurysm. Suspected emphysema.
--- NOTE | ~2023-06-01 | XR_ITS ---
Portable chest x-ray Comparison: 04/04/2023 Clinical History: Shortness of breath Findings: There is central congestive change and probable mild pulmonary edema. Questionable underly ing mild chronic interstitial change. There is discoid atelectasis or scarring left midlung. Cardiom ediastinal silhouette is stable. Bones and soft tissues are unremarkable. Impression: Probable mild pulmonary edema. Possible underlying COPD or other chronic interstitial disease. Discoid atelectasis or scarring left midlung. Reviewed, dictated and finalized at location . Impression: Probable mild pulmonary edema. Possible underlying COPD or other chronic interstitial disease. Discoid atelectasis or scarring left midlung.
--- NOTE | 2023-06-01 09:15 | ECG_ITS ---
SEE SCANNED COPY FOR CONFIRMED REPORT MTDD
--- NOTE | 2023-06-01 09:19 | ED.SOB ---
HPI - SOB/Dyspnea General Chief Complaint: Upper Respiratory Infection <Suzie Arredondo MD - Last Filed: 06/08/23 12:01> Stated Complaint: Resp issues <Suzie Arredondo MD - Last Filed: 06/08/23 12:01> Time Seen by Provider: 06/01/23 09:15 <Suzie Arredondo MD - Last Filed: 06/08/23 12:01> History of Present Illness HPI Narrative: Patient is an 82 year old female with history of CKD, COPD on 4L NC, T2DM, HTN, CAD s/p stent 20 years ago, HLD, GERD, panic attacks here with shortness of breath. Patient notes she began feeling short of breath yesterday and it worsened overnight causing her to call EMS to transport her into the ER. She wears 4L NC at baseline, lives on the 3rd floor of her home. She notes worsening cough, non productive in nature. Denies sick contacts. Denies fevers or chills. Denies worsening LE edema. She is unsure if she has gained weight. She does note she was discontinued on her dose of lasix recently by her real estate officer Dr. Richter. On EMS arrival she was found to be in the low 80s on her home 4L NC and they increased her to 6L before bringing her downstairs and to the ER. No additional medications given en route. Patient denies any chest pain. She notes she has been hospitalized a couple of times in the last 6 months for her breathing, in January she was transferred to [facility] for admission and in March she was initially admitted to this hospital, decompensated and required transfer, this time to [facility] in [place], [place]. <Suzie Arredondo MD - Last Filed: 06/08/23 12:01> Related Data Home Medications: Home Medications Medication Instructions Recorded Confirmed insulin glargine 100 unit/mL (3 14 unit subcut HS 05/15/21 06/02/23 mL) subcutaneous pen (Lantus Solostar U-100 Insulin) insulin lispro 100 unit/mL See Protocol subcut DAILY 05/15/21 06/02/23 subcutaneous pen (Humalog KwikPen (U-100) Insulin) levothyroxine 137 mcg tablet 137 mcg PO DAILY 05/15/21 06/02/23 lovastatin 20 mg tablet 20 mg PO HS 05/15/21 06/02/23 omeprazole 40 mg capsule,delayed 40 mg PO DAILY 05/15/21 06/02/23 release aspirin 81 mg tablet,delayed 81 mg PO DAILY 09/26/21 06/02/23 release montelukast 10 mg tablet 10 mg PO HS 09/26/21 06/02/23 escitalopram oxalate 10 mg tablet 15 mg PO DAILY 12/07/22 06/02/23 furosemide 40 mg tablet 40 mg PO DAILY 02/01/23 06/02/23 theophylline 400 mg 400 mg PO HS 02/01/23 06/02/23 tablet,extended release 24 hr umeclidinium 62.5 mcg-vilanterol 1 inh inhalation DAILY 06/02/23 06/02/23 25 mcg/actuation powdr for inhalation (Anoro Ellipta) <Suzie Arredondo MD - Last Filed: 06/08/23 12:01> Allergies/Adverse Reactions: Allergies Allergy/AdvReac Type Severity Reaction Status Date / Time No Known Allergies Allergy Verified 06/01/23 09:35 <Suzie Arredondo MD - Last Filed: 06/08/23 12:01> Review of Systems Review of Systems: All systems reviewed & are unremarkable except as noted in HPI and below <Suzie Arredondo MD - Last Filed: 06/08/23 12:01> [facility] Past Medical History Medical History: Medical History Chronic kidney disease Chronic obstructive pulmonary disease Coronary artery disease Diastolic congestive heart failure Gastroesophageal reflux disease Hyperlipidemia Hypertension Hypothyroidism Insulin dependent type 2 diabetes mellitus <Suzie Arredondo MD - Last Filed: 06/08/23 12:01> Surgical History Surgical History: Surgical History History of appendectomy History of cholecystectomy History of partial hysterectomy <Suzie Arredondo MD - Last Filed: 06/08/23 12:01> Family History Family History: Family History Father Cerebrovascular accident Mother Diabetes mellitus Heart disease Sibling Throat cancer Renal failure Suicide
[2023-06-01] MEDS: methylPREDNISolone SOD SUCC 125 MG VIAL IV PUSH (09:53)
[2023-06-01 09:56] LABS: Basophils Percent Auto 0.7 % (0.0-1.0); Eosinophils Absolute Auto 0.31 K/mm3 (0.02-0.50); Eosinophils Percent Auto 2.3 % (1.0-6.0); Hematocrit 43.5 % (35.0-42.0); Hemoglobin 13.3 g/dL (11.7-13.8); Immature Granulocyte Absolute 0.12 K/mm3 (0.00-0.00); Immature Granulocyte Percent A 0.9 % (0.0-0.0); Lymphocytes Absolute Auto 1.55 K/mm3 (1.10-4.50); Lymphocytes Percent Auto 11.5 % (18.0-42.0); Mean Corpuscular HGB Conc 30.6 g/dL (32-36); Mean Corpuscular Hemoglobin 29.9 pg (27.0-31.0); Mean Corpuscular Volume 97.8 fL (78.0-102.0); Mean Platelet Volume 9.8 fl (9.2-11.8); Monocytes Absolute Auto 0.49 K/mm3 (0.10-0.90); Monocytes Percent Auto 3.6 % (2.0-11.0); Neutrophils Absolute Auto 10.96 K/mm3 (1.70-7.20); Platelet Count Result 247 K/mm3 (150-420); Red Blood Count 4.45 M/mm3 (4.20-5.40); Red Cell Distribution Width 12.9 % (11.6-14.4); White Blood Count 13.5 K/mm3 (4.8-10.8)
[2023-06-01 09:57] LABS: HCO3 VBG 26.3 mEq/l (24.0-30.0); PCO2 VBG 57.1 mmHg (42.0-48.0); PO2 VBG 32.6 mmHg (35.0-45.0); pH VBG 7.28 (7.33-7.43)
[2023-06-01] MEDS: LEVALBUTEROL NEB 1.25 MG/3 ML 3.75 MG INHALATION (10:01)
--- NOTE | 2023-06-01 10:01 | PC.NURSE ---
PT AND FAMILY ARE UPDATED ON PT STATUS. PT IS BREATHING MUCH EASIER AT THIS TIME, MORE RELAXED. SKIN W-D-P. PT IS RESTING BACK ON STRETCHER WITHOUT DISTRESS. NEB TX IN PROGRESS AT THIS TIME. VSS. WILL CONTINUE TO MONITOR. PT DENIES ANY NEEDS OR COMPLAINTS.
[2023-06-01 10:03] LABS: Device NASAL CANNULA
[2023-06-01 10:04] LABS: SARS-CoV-2 RNA PCR Negative (Negative)
[2023-06-01 10:11] LABS: INR 1.1; Partial Thromboplastin Time 23.7 Sec (23.9-30.70); Prothrombin Time 11.6 Seconds (9.50-12.1)
[2023-06-01 10:11] LABS: Influenza A QL RT-PCR Negative (Negative); Influenza B QL RT-PCR Negative (Negative); RSV RNA, RT-PCR Negative (Negative)
[2023-06-01 10:12] LABS: Lactic Acid Reflex 1.5 mmol/L (0.4-2.0)
[2023-06-01 10:14] LABS: Magnesium 1.7 mg/dL (1.8-2.4)
[2023-06-01 10:15] LABS: D Dimer 1.65 mg/L (0.19-0.50)
[2023-06-01 10:16] LABS: CRP < 0.5 mg/dL (0.0-0.9)
[2023-06-01 10:19] LABS: Alanine Aminotransferase 44 U/L (14-59); Albumin Level 3.3 g/dL (3.4-5.0); Alkaline Phosphatase 109 U/L (46-116); Anion Gap 11 mmol/L (4-12); Aspartate Amino Transferase 54 U/L (15-37); Bilirubin,Total 0.5 mg/dL (0.00-1.00); Blood Urea Nitrogen 24 mg/dL (7-18); Calcium 9.3 mg/dL (8.5-10.1); Carbon Dioxide 27 mmol/L (21-32); Chloride 111 mmol/L (98-108); Estimated CRCL calculation 29 ml/min; Estimated Glomerular Filt Rate 49; Glucose 158 mg/dL (70-99); NT Pro B Type Natriuretic Pept 4925 pg/mL (0-450); Osmolality Calculated 315 mOsm/kg (285-295); Potassium 3.6 mmol/L (3.5-5.1); Sodium 149 mmol/L (136-145); Total Protein 7.1 g/dL (6.4-8.2)
[2023-06-01] MEDS: MAGNESIUM SULF 2 GM/WATER 50ML 2 GM/50 ML BAG IVPB (10:49)
--- NOTE | 2023-06-01 10:52 | PC.NURSE ---
PT IS LYING ON STRETCHER TALKING WITH FAMILY WITHOUT DISTRESS. PT IS AWAITING RESULTS, IS HEADED TO CT AT THIS TIME. VSS PER MONITOR. WILL CONTINUE TO MONITOR.
--- NOTE | 2023-06-01 11:08 | PC.NURSE ---
PT HAS RETURNED FROM CT, FAMILY AT BEDSIDE. IV MEDICATION INFUSING ORDERED WITHOUT DIFFICULTY. WILL CONTINUE TO MONITOR.
[2023-06-01] MEDS: FUROSEMIDE INJ 40 MG/4 ML VIAL IV PUSH (11:44)
--- NOTE | 2023-06-01 11:52 | PC.NURSE ---
PT IS LYING ON STRETCHER TALKING WITH FAMILY. NAD NOTED. IV MEDICATIONS INFUSING. PT IS AWAITING RETURN CALL FROM [facility] AT THIS TIME. PT AND FAMILY ARE AWARE OF PLAN OF CARE. PT DECLINES TRANSFER BACK TO [facility] AT THIS TIME, REPORTS SHE WOULD LIKE TO WAIT FOR [place]. WILL CONTINUE TO MONITOR.
[2023-06-01 12:33] LABS: Device NASAL CANNULA; HCO3 VBG 20.2 mEq/l (24.0-30.0); PCO2 VBG 35.1 mmHg (42.0-48.0); PO2 VBG 67.5 mmHg (35.0-45.0); pH VBG 7.38 (7.33-7.43)
--- NOTE | 2023-06-01 12:40 | PC.NURSE ---
PT UP TO COMMODE WITH ASSISTANCE. PT BECOMES EXTREMELY SOB WITH EXERTION. PT DOES RECOVER ON HER OWN AFTER SITTING FOR A WHILE. PT DESAT TO 74% UPON EXERTION. ERP IS AWARE.
[2023-06-01] MEDS: LEVALBUTEROL NEB 1.25 MG/3 ML INHALATION ×2 (12:52→18:32)
[2023-06-01] MEDS: IPRATROPIUM BR 0.02% INH SOLN 0.5 MG/2.5 ML VIAL INHALATION ×2 (12:54→18:32)
[2023-06-01 13:08] LABS: Troponin I 231.7 ng/L (0.00-60.4)
--- NOTE | 2023-06-01 13:20 | ECG_ITS ---
SEE SCANNED COPY FOR CONFIRMED REPORT MTDD
[2023-06-01] MEDS: AMOXICILLIN/CLAVULANATE K 875-125 MG TAB 1 TABLET PO ×2 (13:21→21:28)
[2023-06-01] MEDS: ASPIRIN 81 MG CHEWABLE TABLET 324 MG PO (13:22)
--- NOTE | 2023-06-01 13:52 | PC.NURSE ---
PER PT DEXACOM, BLOOD SUGAR IS 278. PT IS REQUESTING INSULIN AT THIS TIME. ERP IS NOTIFIED.
--- NOTE | 2023-06-01 14:17 | PC.NURSE ---
PT IS REQUESTING SOMETHING TO EAT, TRAY ORDERED. TO AWAIT ERP ORDER FOR INSULIN AT THIS TIME. FAMILY REMAINS AT BEDSIDE. PT RESTING WITHOUT DISTRESS NOTED. WILL CONTINUE TO MONITOR.
[2023-06-01] MEDS: ENOXAPARIN 60 MG/0.6 ML SYRINGE SUB-Q (15:26)
[2023-06-01 15:33] LABS: Glucose Point of Care 311 mg/dl (65-105)
[2023-06-01] MEDS: INSULIN HUMAN LISPRO (*BKC) 1,000 UNITS/10 ML VIAL SUB-Q (15:52)
--- NOTE | 2023-06-01 16:54 | PC.NURSE ---
PT UP TO COMMODE WITH ASSIST. SMALL BM NOTED. PT DID BETTER WITH TRANSFER THIS TIME. PT DOES DESAT TO 83%, HOWEVER RECOVERS MUCH FASTER. DINNER TRAY PROVIDED. FAMILY HAS LEFT TO OBTAIN PT BELONGINGS. PT AND FAMILY UPDATED ON PT STATUS AND BED STATUS AT [facility]. WILL CONTINUE TO MONITOR.
[2023-06-01 17:59] LABS: Troponin I 478.2 ng/L (0.00-60.4)
--- NOTE | 2023-06-01 19:19 | PC.NURSE ---
PT HAS COMPLETED BREATHING TX. PT IS RESTING ON STRETCHER. ANOTHER ATTEMPT TO CONTACT CUSTOMER EXPERIENCE RETAIL CLERK AT [facility], UNABLE TO CONTACT AT THIS TIME. REPORT TO ANDREW BANUELOS. ICE CHIPS PROVIDED. NAD NOTED.
--- NOTE | 2023-06-01 19:38 | PC.NURSE ---
1914: Attempted to call [facility] for an update of pt transfer. No answer. Will try again later.
--- NOTE | 2023-06-01 19:38 | PC.NURSE ---
193: Repeat call to [facility] for an update on pt transfer. No answer. Will try again later.
--- NOTE | 2023-06-01 19:52 | PC.NURSE ---
Spoke with SARAH Edouard at [facility] for an update on pt transfer. She states that it does not look like they will be able to accept the patient until sometime tomorrow. Pt/family updated.
--- NOTE | 2023-06-01 19:57 | PC.NURSE ---
Pt son, Eagle's phone number: [phone]
--- NOTE | 2023-06-01 20:32 | PC.NURSE ---
Pt moved to a hospital bed and placed in room 4 for comfort.
[2023-06-01 20:37] LABS: Procalcitonin 0.2 ng/mL
[2023-06-01 21:16] LABS: Glucose Point of Care 388 mg/dl (65-105)
--- NOTE | 2023-06-01 21:17 | PC.NURSE ---
Did Patients Glucose Check @3457.... 388
[2023-06-01] MEDS: LOVASTATIN 20 MG TABLET PO (21:27)
[2023-06-01] MEDS: THEOPHYLLINE ANHYDROUS 200 MG ER 24 HR CAPSULE 400 MG PO (21:27)
[2023-06-01] MEDS: INSULIN HUMAN LISPRO (*BKC) 1,000 UNITS/10 ML VIAL 5 UNITS SUB-Q (21:28)
[2023-06-01] MEDS: INSULIN GLARGINE (*BKC) 1,000 UNITS/10 ML VIAL 12 UNITS SUB-Q (21:28)
[2023-06-01 22:21] LABS: Troponin I 617.2 ng/L (0.00-60.4)
[2023-06-02] VITALS (23 sets, daily range): BP systolic 130–153; BP diastolic 54–63; PULSE 67–95; RESP 20–26; TEMP 36.3; O2SAT 90–98
[2023-06-02] MEDS: IPRATROPIUM BR 0.02% INH SOLN 0.5 MG/2.5 ML VIAL INHALATION ×2 (00:22→06:00)
[2023-06-02] MEDS: LEVALBUTEROL NEB 1.25 MG/3 ML INHALATION ×2 (00:23→06:00)
[2023-06-02 00:27] LABS: Glucose Point of Care 331 mg/dl (65-105)
[2023-06-02] MEDS: INSULIN HUMAN LISPRO (*BKC) 1,000 UNITS/10 ML VIAL 5 UNITS SUB-Q (00:28)
[2023-06-02 04:22] LABS: Troponin I 800.8 ng/L (0.00-60.4)
[2023-06-02 05:49] LABS: Hematocrit 34.8 % (35.0-42.0); Hemoglobin 10.8 g/dL (11.7-13.8); Mean Corpuscular Hemoglobin 30.3 pg (27.0-31.0); Mean Corpuscular Volume 97.5 fL (78.0-102.0); Mean Platelet Volume 10.3 fl (9.2-11.8); Platelet Count Result 216 K/mm3 (150-420); Red Blood Count 3.57 M/mm3 (4.20-5.40); Red Cell Distribution Width 13.2 % (11.6-14.4); White Blood Count 9.6 K/mm3 (4.8-10.8)
[2023-06-02] MEDS: LEVOTHYROXINE SODIUM 112 MCG TABLET PO (05:59)
[2023-06-02] MEDS: LEVOTHYROXINE SODIUM 25 MCG TABLET PO (06:00)
[2023-06-02 06:18] LABS: Anion Gap 7 mmol/L (4-12); Blood Urea Nitrogen 33 mg/dL (7-18); Calcium 8.8 mg/dL (8.5-10.1); Carbon Dioxide 30 mmol/L (21-32); Chloride 110 mmol/L (98-108); Estimated CRCL calculation 29 ml/min; Estimated Glomerular Filt Rate 49; Glucose 132 mg/dL (70-99); Osmolality Calculated 313 mOsm/kg (285-295); Potassium 3.7 mmol/L (3.5-5.1); Sodium 147 mmol/L (136-145)
--- NOTE | 2023-06-02 06:31 | PC.NURSE ---
0630 Spoke with HS at [facility] who is unable to give an estimate of when pt will have a bed at this time. HS updated on uptrending troponin and states that she will discuss with the hospitalist and get back to us this morning.
[2023-06-02 08:28] LABS: Glucose Point of Care 92 mg/dl (65-105)
[2023-06-02] MEDS: ENOXAPARIN 60 MG/0.6 ML SYRINGE SUB-Q (09:11)
[2023-06-02] MEDS: ESCITALOPRAM OXALATE 10 MG TABLET PO (09:14)
[2023-06-02] MEDS: AMOXICILLIN/CLAVULANATE K 875-125 MG TAB 1 TABLET PO (09:14)
[2023-06-02] MEDS: predniSONE 20 MG TABLET 40 MG PO (09:15)
[2023-06-02] MEDS: PANTOPRAZOLE 40 MG TABLET PO (09:15)
[2023-06-02] MEDS: FUROSEMIDE INJ 40 MG/4 ML VIAL IV PUSH (09:16)
[2023-06-02] MEDS: ASPIRIN 81 MG ENTERIC TABLET PO (09:41)
--- NOTE | 2023-06-02 09:44 | PC.NURSE ---
Pt up to bedside commode with assistance. Pt became sob with labored breathing and sats in low 80's. Pt encouraged with relaxation and breathing techniques and O2 sats improved.
--- NOTE | 2023-06-02 09:46 | PC.NURSE ---
Report called to [facility] ANDREW Sierra
--- NOTE | 2023-06-07 12:04 | PC.NURSE ---
blood culture results x2: no growth after 5 days.
== END 2023-06-02 10:03 | disposition short-term general hospital (02) ==
PROVIDERS: Student in an Organized Health Care Education/Training Program; Emergency Provider Internal Medicine Critical Care Medicine; PCP Internal Medicine
DX: R79.89 Other specified abnormal findings of blood chemistry (principal); J96.21 Acute and chronic respiratory failure with hypoxia; J44.1 Chronic obstructive pulmonary disease with (acute) exacerbation; N18.9 Chronic kidney disease, unspecified; E11.22 Type 2 diabetes mellitus with diabetic chronic kidney disease; I25.10 Atherosclerotic heart disease of native coronary artery without angina pectoris; Z79.4 Long term (current) use of insulin; Z79.82 Long term (current) use of aspirin; I50.9 Heart failure, unspecified; I13.0 Hypertensive heart and chronic kidney disease with heart failure and stage 1 through stage 4 chronic kidney disease, or unspecified chronic kidney disease; E78.5 Hyperlipidemia, unspecified; E03.9 Hypothyroidism, unspecified; Z87.891 Personal history of nicotine dependence; Z20.822 Contact with and (suspected) exposure to COVID-19
CPT/HCPCS: 36415; 71045; 71275; 80048; 80053; 82803; 82948; 83605; 83735; 83880; 84145; 84484; 85025; 85027; 85380; 85610; 85730; 86140; 87040; 87637; 93005; 94640; 96365; 96366; 96372; 96375; 96376; 99285; A9270; J1650; J1815; J1940; J2919; J3475; J7512; Q9967

== ENCOUNTER 2023-06-02 13:02 | Inpatient (IN) | payer MEDICARE, SELFPAY ==
[2023-06-02] VITALS (18 sets, daily range): BP systolic 158–186; BP diastolic 54–68; PULSE 72–110; RESP 18–26; TEMP 36.6; O2SAT 94–100; BMI 25.6
--- NOTE | 2023-06-02 | ECHO_ITS ---
Patient Info Name: Nikki Bonilla Age: 82 years : 1940 Gender: Female Ht: 60 in Wt: 131 lbs BSA: 1.60 m2 HR: 84 bpm BP: 186 / 57 mmHg Heart Rhythm: Sinus Rhythm Technical Quality: Good Exam Date: 06/02/2023 3:35 PM Exam Location: Echo Lab Patient Status: Outpatient Admit Date: 06/02/2023 Staff Ordering Physician: Rj Richter DO [employer] Sales Agent: Radha Jones RDCS Attending Provider: Juan Manuel Weaver MD Referring Physician: Rober ORNELAS; Exam Type: CA echo doppler color flow Study Info Indications - elevated troponin R06.02 - Shortness of breath Complete two-dimensional, color flow and Doppler transthoracic echocardiogram is performed. History/Risk Factors Hypertension: Yes COPD: On Home Oxygen Tobacco Use: Former Summary 1. Complete two-dimensional, color flow and Doppler transthoracic echocardiogram is performed. 2. Left ventricular chamber dimension is normal. 3. Basal inferoposterior wall is severely hypokinetic to akinetic. 4. Left ventricular systolic function is normal, estimated at 55-60%. 5. The left ventricular diastolic function is grade I diastolic dysfunction. 6. E/e' 17 is elevated. 7. Left atrial chamber dimension is mildly enlarged. 8. There is mild aortic valve sclerosis. 9. There is trace mitral valve regurgitation. 10. No pulmonary hypertension, estimated pulmonary arterial systolic pressure is 25 mmHg. 11. There is trace pulmonic regurgitation. Left Ventricle Basal inferoposterior wall is severely hypokinetic to akinetic. E/e' 17 is elevated. Left ventricular chamber dimension is normal. Left ventricular systolic function is normal, estimated at 55-60%. The left ventricular diastolic function is grade I diastolic dysfunction. Right Ventricle Right ventricular systolic function is normal and with normal TAPSE 2.5 cm. Right ventricular chamber dimension is normal. Left Atria Left atrial chamber dimension is mildly enlarged. Right Atria Right atrial chamber dimension is normal. Aortic Valve The aortic valve is trileaflet. There is mild aortic valve sclerosis. There is no aortic valve stenosis. There is no aortic valve regurgitation. Pulmonic Valve There is trace pulmonic regurgitation. Mitral Valve There is no mitral valve stenosis. There is trace mitral valve regurgitation. Tricuspid Valve There is no tricuspid valve regurgitation. No pulmonary hypertension, estimated pulmonary arterial systolic pressure is 25 mmHg. Pericardium/Pleural There is no pericardial effusion. Inferior Vena Cava Normal inferior vena cava with >50% collapse upon inspiration consistent with normal right atrial pressure, 5 mmHg. Aorta The aortic root size at the sinus of Valsalva is normal. Left Ventricular Outflow Tract Name Value Normal LVOT 2D LVOT Diameter 2.0 cm LVOT Doppler LVOT Peak Gradient 4 mmHg LVOT Mean Gradient 2 mmHg LVOT VTI 22 cm LVOT VTI/AV VTI Ratio 0.9 LVOT Stroke Volume 67 ml LVOT CO 5.3 l/min LVOT CI 3.
--- NOTE | 2023-06-02 11:35 | ADMGEN ---
This patient, Nikki Bonilla, was admitted to IMU Room 205-02. Patient/family oriented to hospital policies and general routines including ID bracelet, bed and alarms, visiting hours, pain management, procedures, bathroom and other care routines, personal items, smoking policy, room service/diet, and visiting hours. Information on how to activate the Rapid Response Team has been discussed. Patient/Family are encouraged to report perceived risks to care and to ask questions if they do not understand what they are told or what they should do.
--- NOTE | 2023-06-02 13:02 | ECG_ITS ---
SEE SCANNED COPY FOR CONFIRMED REPORT MTDD
[2023-06-02] MEDS: IPRATROPIUM 0.5 MG/ALBUTEROL SULFATE 2.5 MG AMPUL.NEB 3 ML INHALATION ×3 (13:14→19:33)
[2023-06-02 13:18] LABS: Basophils Absolute Auto 0.1 K/mm3 (0.0-0.1); Basophils Percent Auto 0.6 % (0.2-1.2); Eosinophils Percent Auto 0.3 % (0-4.4); Hematocrit 42.6 % (37.0-47.0); Hemoglobin 13.3 g/dL (12.0-15.0); Immature Granulocyte Absolute 0.07 K/mm3 (0.00-0.031); Immature Granulocyte Percent A 0.6 % (0-0.5); Mean Corpuscular HGB Conc 31.2 g/dl (32-36); Mean Corpuscular Hemoglobin 30.7 pg (26-34); Mean Corpuscular Volume 98.4 fl (80-100); Mean Platelet Volume 10.5 fl (7.4-10.4); Monocytes Absolute Auto 0.3 K/mm3 (0.1-0.6); Monocytes Percent Auto 2.3 % (2.6-8.5); Neutrophils Absolute Auto 10.7 K/mm3 (1.3-6.7); Neutrophils Percent Auto 87.2 % (45.5-73.1); Platelet Count Result 263 k/mm3 (150-375); Red Blood Count 4.33 M/mm3 (4.2-5.4); Red Cell Distribution Width 13.4 % (11.5-14.5); White Blood Count 12.3 K/mm3 (4.5-10.0)
[2023-06-02 13:24] LABS: Alanine Aminotransferase 46 U/L (6-35); Albumin Level 4.3 g/dL (3.5-5.1); Alkaline Phosphatase 94 U/L (38-126); Anion Gap 9 mmol/L (4-12); Aspartate Amino Transferase 47 U/L (14-36); Bilirubin,Total 0.6 mg/dL (0.2-1.3); Blood Urea Nitrogen 31 mg/dL (7-17); Calcium 9.6 mg/dL (8.4-10.2); Carbon Dioxide 25 mmol/L (22-30); Chloride 109 mmol/L (98-107); Estimated CRCL calculation 31 ml/min; Estimated Glomerular Filt Rate 53; Glucose 227 mg/dL (65-110); Magnesium 2.3 mg/dL (1.6-2.3); Potassium 3.5 mmol/L (3.4-5.0); Sodium 143 mmol/L (137-145)
--- NOTE | 2023-06-02 13:28 | PM.IMHP ---
H&P: HPI History of Present Illness Date/Time: 06/02/23 13:00 Chief Complaint: COPD exacerbation, elevated troponin. Narrative: This is a very pleasant 82-year-old female with chronic respiratory failure on 4 L nasal cannula, chronic obstructive pulmonary disease, coronary artery disease with history of stents 20 years ago with normal stress test in fall 2022, hypertension, hyperlipidemia, chronic kidney disease, hypothyroidism, and insulin-dependent type 2 diabetes mellitus who is being directly admitted to IMU from the emergency department at [facility] for further treatment and evaluation of COPD exacerbation and elevated troponin. The patient provides the following history. She presented to the outside facility with complaints of increasing shortness of breath and worsening but nonproductive cough for couple of days. On arrival she was in respiratory distress though she did improve with a nebulizer treatment. Preliminary workup included a negative viral panel, VBG with a pH of 7.28 and pCO2 of 57, initial high sensitivity troponin of 76 which has trended upwards, BNP [id number], chest CTA negative for pulmonary embolism and acute findings, and an EKG with subtle ST depressions in the anterolateral leads. In addition to the nebulizer treatment she received a dose of Augmentin, aspirin 324 mg, 40 mg IV Lasix, and 1 mg/kg enoxaparin. Transfer was initiated to [place] for further treatment and evaluation as well as consultation with her environmental education specialist given elevated troponins. Not long after arrival to the IMU she once again became tachycardic and tachypneic with significant improvement after receiving a nebulizer treatment. At the time my evaluation she seems to be resting more comfortably. She denies fever, chills, sweats, sinus congestion, sore throat, dysphagia, concerns for aspiration, orthopnea, paroxysmal nocturnal dyspnea, lower extremity edema, calf pain, nausea, and vomiting. Review of Systems Review of Systems: 12 systems were reviewed and are negative except for as per HPI. [facility] Past Medical History Medical History Chronic kidney disease Chronic obstructive pulmonary disease Coronary artery disease Diastolic congestive heart failure Gastroesophageal reflux disease Hyperlipidemia Hypertension Hypothyroidism Insulin dependent type 2 diabetes mellitus Surgical History Surgical History History of appendectomy History of cholecystectomy History of partial hysterectomy Family History Family History Father Cerebrovascular accident Mother Diabetes mellitus Heart disease Sibling Throat cancer Renal failure Suicide Sibling Heart disease Social History Social History (Updated 06/02/23 @ 14:34 by Farzana Donohue PA-C) Social History: Surrogate medical decision maker: Eagle Bonilla, anjelica. Code status: Smoking packs per day: 1 Smoking cigarettes per day: 20.0 Years smoked: 40 Smoking pack-years: 40.00 Smoking status: Former smoker Tobacco type: cigarettes Second hand tobacco smoke exposure: Yes Smoking end date: 06/01/18 Alcohol intake: never Alcohol use details: Social Substance use: never Do You Feel Safe in your Home?: Yes Lack of Transportation: No Lack of Food: Never True Current Housing: I Have Housing Concerned About Future Housing: No Difficulty Paying Gas/Electric Bills: No Difficulty Paying for Meds: No Currently Unemployed: No Education: High School Diploma/GED Difficulty w/ Childcare or Family Care: No Living arrangements: with family Additional living arrangements comments: Lives with son in [place]. 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 Spiritual care concerns: No Meds Home
[2023-06-02 13:30] LABS: Alveolar/Arterial O2 Gradient 399.8 mmHg; Base Excess ABG -1.9 mEq/l (+/-2.0); Carboxyhemoglobin 0.3 % THb (0-2.0); Device NON-REBREATHER MASK; Fractional Inspired Oxygen 100 %; HCO3 ABG 23.7 mEq/l (22.0-26.0); Methemoglobin ABG 0.4 %THb (0-1.5); Modified Allen's Test Pass; Oxygen Content ABG 19.3 %vol (16.0-22.0); Oxygen Saturation ABG 99.6 % (95.0-100.0); Oxyhemoglobin 98.1 % THb (90.0-100.0); PCO2 ABG 43.7 mmHg (35.0-45.0); PO2 ABG 269.5 mmHg (80.0-100.0); PO2 FiO2 Ratio Arterial Blood 2.69 %; Reduced Hemoglobin 1.2 %THb (0-5.0); Site Drawn RIGHT RADIAL; Total Hemoglobin 13.5 g/dL (12.0-18.0); pH ABG 7.353 (7.350-7.450)
[2023-06-02 13:46] LABS: Troponin I 0.731 ng/mL (0.000-0.034)
--- NOTE | 2023-06-02 14:15 | PM.CNCAR ---
Assessment and Plan Assessment and plan (1) SOB (shortness of breath) on exertion: Code(s): R06.02 - Shortness of breath Status: Acute Assessment and Plan: Due to diastolic heart failure, COPD, or NSTEMI. (2) Elevated troponin: Code(s): R79.89 - Other specified abnormal findings of blood chemistry Status: Acute Assessment and Plan: Elevated at .731. Trend troponin. Obtain echo. If troponin trend up or has WMA then recommend LHC. On aspirin, Lovenox, Lovastatin. (3) Diastolic congestive heart failure: Code(s): I50.30 - Unspecified diastolic (congestive) heart failure Status: Acute Assessment and Plan: Acute on chronic. Got Lasix in ER. NTproBNP 29,474. (4) Hypertension: Code(s): I10 - Essential (primary) hypertension Status: Acute Assessment and Plan: High. Start Metoprolol Tartate 25 mg BID and Losartan 25 mg daily. (5) Hyperlipidemia: Code(s): E78.5 - Hyperlipidemia, unspecified Status: Acute Assessment and Plan: On Lovastatin. (6) COPD exacerbation: Code(s): J44.1 - Chronic obstructive pulmonary disease with (acute) exacerbation Status: Acute Assessment and Plan: Nebs and as per hospitalist. History of Present Illness History of Present Illness Consult date/time: 06/02/23 14:15 Reason For Visit: chf,copd,nstemi Narrative: 82 yr old woman who is my regular cardiology patient and a patient of Dr. Galvez presents to ER for sob. She has a history of CAD with 1 stent over 20 years ago at [facility] in [place], DM, hypertension, dyslipidemia, COPD, former smoking. She had RSV pneumonia on 04/06/23. She came to my office a couple of weeks ago and was doing better. Then yesterday she noted more sob, coughing, pulse ox low 80's on oxygen. Normally reports she is limited at walking 1/2 block with oxygen due to PAYNE. Denies chest pain, orthopnea, PND, edema, dizziness, palpitations. Cardiovascular Procedures Echo/MUGA:: 11/16/22 Echo: EF 60-65%, mild LVH, grade I diastolic dysfunction (E/e' 13), mild LAE, trace TR. Stress Tests:: 11/02/22 Lexiscan myoview: No ischemia. Fixed anteroseptal defects due to artifact. EF 71%. Review of Systems Review of Systems: All systems reviewed & are unremarkable except as noted in HPI and below Constitutional: Constitutional: Reports as per HPI, Denies chills, Reports fatigue and Denies fever(s) Cardiovascular: Cardiovascular: Reports as per HPI, Denies chest pain and Denies irregular heart rhythm Respiratory: Respiratory: Reports as per HPI, Reports cough and Reports dyspnea Gastrointestinal: Gastrointestinal: Reports as per HPI and Denies abdominal pain Genitourinary: Genitourinary: Reports as per HPI and Denies dysuria Musculoskeletal: Musculoskeletal: Reports as per HPI Neurologic: Reports as per HPI, Denies dizziness and Denies syncope [facility] Past Medical History Medical History (Updated 06/02/23 @ 14:19 by Rj Richter DO) Chronic kidney disease Chronic obstructive pulmonary disease Coronary artery disease Diastolic congestive heart failure Gastroesophageal reflux disease Hyperlipidemia Hypertension Hypothyroidism Insulin dependent type 2 diabetes mellitus Surgical History Surgical History (Updated 06/02/23 @ 13:40 by Farzana Donohue PA-C) History of appendectomy History of cholecystectomy History of partial hysterectomy Family History Family History Father Cerebrovascular accident Mother Diabetes mellitus Heart disease Sibling Throat cancer Renal failure Suicide Sibling Heart disease Social History Social History Smoking packs per day: 1 Smoking cigarettes per day: 20.0 Years smoked: 40 Smoking pack-years: 40.00 Smoking status: Former smoker Tobacco type: cigarettes Second
--- NOTE | 2023-06-02 15:20 | PC.NURSE ---
1300: Tech called RN to room. Pt's BP 200's/100's and thrashing in bed . RN to room. Pt diaphoretic, tachypneic, tachycardic, and dusky. O2 on at 4L NC, SpO2 reading at 70%, HR 136. RN called wood heel flap rubber; wood heel flap rubber to room. Pt placed on non-rebreather. PA notified of pt's change of condition. PA to room to assess pt. Order's entered by PA. 1309: Stat Duo-neb ordered and administered by RT. Pt placed back on home O2 of 4L NC by RT after breathing treatment.
[2023-06-02 16:33] LABS: Glucose Point of Care 266 mg/dl (65-105)
--- NOTE | 2023-06-02 16:40 | PHAR ---
Pharmacy verified home med: * Home Med * Ramelteon 8 mg tablet take 1 tablet by mouth at bedtime as needed for sleep
--- NOTE | 2023-06-02 17:11 | PC.NURSE ---
Notified Romario Araiza of pt's elevated BP. New order to give 2100 dose of Metoprolol now and change Losartan to start now with next dose at 0900 on 06/02
[2023-06-02] MEDS: LOSARTAN POTASSIUM 25 MG TABLET PO (17:21)
[2023-06-02] MEDS: methylPREDNISolone SOD SUCC 125 MG VIAL 60 MG IV PUSH (17:21)
[2023-06-02] MEDS: METOPROLOL TARTRATE 25 MG TABLET PO (17:21)
[2023-06-02] MEDS: INSULIN ASPART (*BKC) 100 UNITS/ML SUB-Q ×2 (17:21→20:39)
[2023-06-02] MEDS: FUROSEMIDE INJ 40 MG/4 ML VIAL IV PUSH (17:21)
[2023-06-02 17:31] LABS: Troponin I 0.658 ng/mL (0.000-0.034)
[2023-06-02 20:17] LABS: Glucose Point of Care 331 mg/dl (65-105)
[2023-06-02] MEDS: ENOXAPARIN 60 MG/0.6 ML SYRINGE SUB-Q (20:36)
[2023-06-02] MEDS: LOVASTATIN 20 MG TABLET PO (20:36)
[2023-06-02] MEDS: THEOPHYLLINE ANHYDROUS 200 MG ER 24 HR CAPSULE 400 MG PO (20:37)
[2023-06-02] MEDS: MONTELUKAST SODIUM 10 MG TABLET PO (20:37)
[2023-06-02] MEDS: AMOXICILLIN/CLAVULANATE K 875-125 MG TAB 1 TABLET PO (20:37)
[2023-06-02] MEDS: INSULIN GLARGINE (*BKC) 100 UNITS/ML 14 UNITS SUB-Q (20:39)
[2023-06-02 20:40] LABS: Troponin I 0.544 ng/mL (0.000-0.034)
[2023-06-03] VITALS (33 sets, daily range): BP systolic 141–165; BP diastolic 47–64; PULSE 69–93; RESP 18–24; TEMP 36.2–37.1; O2SAT 90–100
[2023-06-03] MEDS: methylPREDNISolone SOD SUCC 125 MG VIAL 60 MG IV PUSH ×3 (00:11→12:01)
[2023-06-03] MEDS: IPRATROPIUM 0.5 MG/ALBUTEROL SULFATE 2.5 MG AMPUL.NEB 3 ML INHALATION ×6 (00:13→20:25)
[2023-06-03 05:06] LABS: Hematocrit 38.4 % (37.0-47.0); Hemoglobin 11.9 g/dL (12.0-15.0); Mean Corpuscular Hemoglobin 30.3 pg (26-34); Mean Corpuscular Volume 97.7 fl (80-100); Mean Platelet Volume 10.9 fl (7.4-10.4); Platelet Count Result 231 k/mm3 (150-375); Red Blood Count 3.93 M/mm3 (4.2-5.4); Red Cell Distribution Width 12.9 % (11.5-14.5); White Blood Count 8.2 K/mm3 (4.5-10.0)
[2023-06-03 05:20] LABS: Alanine Aminotransferase 56 U/L (6-35); Albumin Level 3.8 g/dL (3.5-5.1); Alkaline Phosphatase 79 U/L (38-126); Anion Gap 12 mmol/L (4-12); Aspartate Amino Transferase 39 U/L (14-36); Bilirubin,Total 0.6 mg/dL (0.2-1.3); Blood Urea Nitrogen 36 mg/dL (7-17); Calcium 9.3 mg/dL (8.4-10.2); Carbon Dioxide 25 mmol/L (22-30); Chloride 103 mmol/L (98-107); Estimated CRCL calculation 26 ml/min; Estimated Glomerular Filt Rate 43; Glucose 373 mg/dL (65-110); Sodium 140 mmol/L (137-145)
[2023-06-03 06:21] LABS: Thyroid Stimulating Hormone Reflex 0.016 uIU/mL (0.465-4.68)
[2023-06-03 07:22] LABS: Free T4 Free Thyroxine Reflex 1.82 ng/dL (0.78-2.19)
[2023-06-03] MEDS: UMECLIDINIUM/VILANTEROL 62.5-25 MCG ELLIPTA 1 PUFF INHALATION (07:34)
[2023-06-03 07:57] LABS: Glucose Point of Care 383 mg/dl (65-105)
--- NOTE | 2023-06-03 08:03 | PM.PNCARD ---
Progress Note: A&P Assessment and Plan (1) SOB (shortness of breath) on exertion: Code(s): R06.02 - Shortness of breath Status: Acute Assessment and Plan: Due to acute on chronic diastolic heart failure and COPD exac. (2) Elevated troponin: Code(s): R79.89 - Other specified abnormal findings of blood chemistry Status: Inactive Assessment and Plan: Elevated peaked at .731. Probably related to demand ischemia from respiratory status. (3) Diastolic congestive heart failure: Code(s): I50.30 - Unspecified diastolic (congestive) heart failure Status: Acute Assessment and Plan: Acute on chronic. Got Lasix in ER. NTproBNP 29,474. 06/02/23 Echo: EF 55-60%, basal inferoposterior wall is severely hypokinetic to akinetic, grade I diastolic dysfunction (E/e' 17), mild LAE, trace MR/TR. I compared prior echo 11/16/22 to this one and it is essentially unchanged wall motion abnormality. No need for LHC and no further cardiac workup is needed for this. On Lasix 40 mg PO daily and fluid restriction to 1.5 l/day. (4) Hypertension: Code(s): I10 - Essential (primary) hypertension Status: Acute Assessment and Plan: High. Started Metoprolol Tartate 25 mg BID and Losartan 50 mg daily. Monitor. (5) Hyperlipidemia: Code(s): E78.5 - Hyperlipidemia, unspecified Status: Acute Assessment and Plan: On Lovastatin. (6) COPD exacerbation: Code(s): J44.1 - Chronic obstructive pulmonary disease with (acute) exacerbation Status: Acute Assessment and Plan: Nebs and as per hospitalist. Subjective Date/time seen: 06/03/23 08:03 Interval history: Denies chest pain. Has some sob but better than yesterday. Exam Const: General: cooperative, healthy appearing and comfortable Orientation/consciousness: oriented to person, oriented to place and oriented to time Resp: Auscultation: no crackles, no rales, no rhonchi, no wheezes and diminished lung sounds Cardio: Rate: regular rate Rhythm: regular rhythm Heart sounds: no murmurs Peripheral pulses: dorsalis pedis present Neuro: General: oriented to person, oriented to place and oriented to time Extrem: Right lower extremity: no edema Left lower extremity: no edema Objective Data Vital Signs Vital Signs: Vital Signs - 24 hr 06/02/23 10:56 06/02/23 13:01 06/02/23 13:07 Temperature 97.9 F 97.9 F Pulse Rate 78 78 Respiratory Rate 26 H 26 H Blood Pressure 158/57 H 158/57 H 186/57 H Pulse Oximetry 97 97 Oxygen Delivery Oxygen Flow Rate 06/02/23 13:21 06/02/23 13:22 06/02/23 13:27 Temperature Pulse Rate 89 84 Respiratory Rate 22 H 22 H Blood Pressure Pulse Oximetry 100 Oxygen Delivery Non-Rebreather Mask Oxygen Flow Rate 15 06/02/23 11:30 06/02/23 11:30 06/02/23 14:00 Temperature Pulse Rate 89 98 Respiratory Rate Blood Pressure Pulse Oximetry 97 Oxygen Delivery Nasal Cannula Oxygen Flow Rate 4 06/02/23 16:03 06/02/23 16:08 06/02/23 16:00 Temperature 97.8 F Pulse Rate 91 93 89 Respiratory Rate 24 H 24 H Blood Pressure 171/68 H Pulse Oximetry 96 Oxygen Delivery Oxygen Flow Rate 06/02/23 16:00 06/02/23 17:21 06/02/23 18:00 Temperature Pulse Rate 110 H 88 Respiratory Rate Blood Pressure Pulse Oximetry 97 Oxygen Delivery Nasal Cannula Oxygen Flow Rate 3 06/02/23 19:33 06/02/23 19:33 06/02/23 19:40 Temperature Pulse Rate 75 72 Respiratory Rate 18 18 Blood Pressure Pulse Oximetry 94 Oxygen Delivery Nasal Cannula Oxygen Flow Rate 4 06/02/23 19:50 06/02/23 20:00 06/02/23 20:00 Temperature 97.8 F Pulse Rate 72 73 Respiratory Rate 24 H Blood Pressure 165/54 H Pulse Oximetry 99 99 Oxygen Delivery Nasal Cannula Oxygen Flow Rate 4 06/02/23 23:45 06/03/23 00:14 06/03/23 00:21 Temperature Pulse Rate 72 73 Respiratory Rate 18 18 Blood
[2023-06-03] MEDS: INSULIN ASPART (*BKC) 100 UNITS/ML SUB-Q ×4 (08:21→21:12)
[2023-06-03] MEDS: ASPIRIN 81 MG ENTERIC TABLET PO (08:22)
[2023-06-03] MEDS: AMOXICILLIN/CLAVULANATE K 875-125 MG TAB 1 TABLET PO ×2 (08:22→21:13)
[2023-06-03] MEDS: ENOXAPARIN 30 MG/0.3 ML SYRINGE SUB-Q (08:23)
[2023-06-03] MEDS: LOSARTAN POTASSIUM 50 MG TABLET PO (08:23)
[2023-06-03] MEDS: FUROSEMIDE 40 MG TABLET PO (08:23)
[2023-06-03] MEDS: ESCITALOPRAM OXALATE 10 MG TABLET PO (08:23)
[2023-06-03] MEDS: METOPROLOL TARTRATE 25 MG TABLET PO ×2 (08:23→21:11)
[2023-06-03] MEDS: PANTOPRAZOLE 40 MG TABLET PO ×2 (08:24→21:11)
[2023-06-03 09:48] LABS: Total Triiodothyronine (T3) 0.71 NG/ML (0.97-1.69)
[2023-06-03 11:25] LABS: Glucose Point of Care 401 mg/dl (65-105)
--- NOTE | 2023-06-03 14:33 | PCCCNOTE ---
On 06/03/23, the student, Karen Nolasco, provided care and completed [facility] documentation on this patient. I have reviewed the student's documentation and agree with the findings.
--- NOTE | 2023-06-03 14:46 | PC.NURSE ---
On 06/03/23, the student, [Gamal Villanueva ], provided care and completed [facility] documentation on this patient. I have reviewed the student's documentation and agree with the findings.
--- NOTE | 2023-06-03 15:02 | PM.IMPN ---
Progress Note: A&P Assessment and Plan (1) Acute and chronic respiratory failure with hypoxia: Code(s): J96.21 - Acute and chronic respiratory failure with hypoxia Status: Inactive Assessment and Plan: Secondary to COPD exacerbation, CHF. Chest CTA was negative for pneumonia, pulmonary embolism, and edema. Wean oxygen as tolerated to baseline of 4 L. (2) COPD exacerbation: Code(s): J44.1 - Chronic obstructive pulmonary disease with (acute) exacerbation Status: Acute Assessment and Plan: Patient presents with increasing shortness of breath, wheezing, and hypoxia. Chest CTA showed emphysema. Continue scheduled bronchodilators and methylprednisolone. Augmentin ordered given increasing shortness of breath and worsening cough. (3) Non-ST elevation myocardial infarction (NSTEMI): Code(s): I21.4 - Non-ST elevation (NSTEMI) myocardial infarction Status: Acute Assessment and Plan: High sensitivity troponins drawn at outside facility trended upwards (76 - 231.7 - 324 - 478.2 - 617.2 - 800.8). EKG shows ST depressions in the anterolateral leads with most recent EKG showing T-wave inversions in lead 3. Patient remains chest pain-free; may be type 2 myocardial infarction from hypoxia related to her COPD exacerbation. Stress test in fall 2022 was unremarkable and EF was normal on echo in November 2022. pt seen by cardiology no need for further heart cath (4) Diastolic congestive heart failure: Code(s): I50.30 - Unspecified diastolic (congestive) heart failure Status: Acute Assessment and Plan: Appears euvolemic [place] [address]. She received Lasix 40 mg IV in the ED. can transition to oral lasix watch bmp and bnp (5) Coronary artery disease: Code(s): I25.10 - Atherosclerotic heart disease of [place] coronary artery without angina pectoris Status: Acute Assessment and Plan: Patient has a history of stents 20+ years ago with a normal stress test in fall 2022. (6) Hypertension: Code(s): I10 - Essential (primary) hypertension Status: Acute Assessment and Plan: Continue to monitor blood pressures closely and make adjustments depending on how she trends. (7) Insulin dependent type 2 diabetes mellitus: Code(s): E11.9 - Type 2 diabetes mellitus without complications; Z79.4 - assisted (current) use of insulin Status: Acute Assessment and Plan: Hemoglobin A1c was 6.8% in January 2023. Continue basal insulin. Initiate sliding scale insulin, Accu-Cheks, and hypoglycemic protocol. Sugars are running high (8) Hyperlipidemia: Code(s): E78.5 - Hyperlipidemia, unspecified Status: Acute Assessment and Plan: Continue lovastatin; AST and ALT are very mildly elevated. (9) Hypothyroidism: Code(s): E03.9 - Hypothyroidism, unspecified Status: Acute Assessment and Plan: Continue levothyroxine and check TSH. (10) Chronic kidney disease: Code(s): N18.9 - Chronic kidney disease, unspecified Status: Acute Assessment and Plan: Creatinine and GFR are near her baseline. Subjective Date/time seen: 06/03/23 15:02 Interval history: 82-year-old female with chronic respiratory failure on 4 L nasal cannula, chronic obstructive pulmonary disease, coronary artery disease with history of stents 20 years ago with normal stress test in fall 2022, hypertension, hyperlipidemia, chronic kidney disease, hypothyroidism, and insulin-dependent type 2 diabetes mellitus who is being directly admitted to IMU from the emergency department at [facility] for further treatment and evaluation of COPD exacerbation and elevated troponin. Pt cxr shows pulmonary edema pt seen by cardiology continue Lasix 40 mg PO daily and fluid restriction to 1.5 l/day. as per recommendations Pts baseline is 4 liters of oxyg
--- NOTE | 2023-06-03 15:08 | PC.NURSE ---
On 06/03/23, the student, [Gamal Diaz ], provided care and completed [facility] documentation on this patient. I have reviewed the student's documentation and agree with the findings.
[2023-06-03 16:25] LABS: Glucose Point of Care 377 mg/dl (65-105)
[2023-06-03] MEDS: methylPREDNISolone SOD SUCC 40 MG VIAL 20 MG IV PUSH ×2 (17:29→23:42)
[2023-06-03 20:09] LABS: Glucose Point of Care 244 mg/dl (65-105)
[2023-06-03] MEDS: LOVASTATIN 20 MG TABLET PO (21:11)
[2023-06-03] MEDS: THEOPHYLLINE ANHYDROUS 200 MG ER 24 HR CAPSULE 400 MG PO (21:11)
[2023-06-03] MEDS: MONTELUKAST SODIUM 10 MG TABLET PO (21:11)
[2023-06-03] MEDS: INSULIN GLARGINE (*BKC) 100 UNITS/ML 16 UNITS SUB-Q (21:12)
[2023-06-04] VITALS (18 sets, daily range): BP systolic 152–177; BP diastolic 59–64; PULSE 67–85; RESP 20–24; TEMP 36.4–36.9; O2SAT 91–100
[2023-06-04] MEDS: IPRATROPIUM 0.5 MG/ALBUTEROL SULFATE 2.5 MG AMPUL.NEB 3 ML INHALATION ×4 (00:06→12:00)
[2023-06-04] MEDS: LEVOTHYROXINE SODIUM 112 MCG, LEVOTHYROXINE SODIUM 25 MCG 137 MCG PO (06:25)
[2023-06-04] MEDS: methylPREDNISolone SOD SUCC 40 MG VIAL 20 MG IV PUSH ×2 (06:25→12:11)
[2023-06-04] MEDS: UMECLIDINIUM/VILANTEROL 62.5-25 MCG ELLIPTA 1 PUFF INHALATION (07:22)
[2023-06-04 07:28] LABS: Anion Gap 1 mmol/L (4-12); Blood Urea Nitrogen 45 mg/dL (7-17); Calcium 9.4 mg/dL (8.4-10.2); Carbon Dioxide 34 mmol/L (22-30); Chloride 105 mmol/L (98-107); Estimated CRCL calculation 24 ml/min; Estimated Glomerular Filt Rate 43; Glucose 227 mg/dL (65-110); Potassium 4.4 mmol/L (3.4-5.0); Sodium 140 mmol/L (137-145)
--- NOTE | 2023-06-04 07:45 | PM.PNCARD ---
Progress Note: A&P Assessment and Plan (1) SOB (shortness of breath) on exertion: Code(s): R06.02 - Shortness of breath Status: Acute Assessment and Plan: Due to acute on chronic diastolic heart failure and COPD exac. (2) Elevated troponin: Code(s): R79.89 - Other specified abnormal findings of blood chemistry Status: Inactive Assessment and Plan: Elevated peaked at .731. Probably related to demand ischemia from respiratory status. (3) Diastolic congestive heart failure: Code(s): I50.30 - Unspecified diastolic (congestive) heart failure Status: Acute Assessment and Plan: Acute on chronic. Got Lasix in ER. NTproBNP 29,474. 06/02/23 Echo: EF 55-60%, basal inferoposterior wall is severely hypokinetic to akinetic, grade I diastolic dysfunction (E/e' 17), mild LAE, trace MR/TR. I compared prior echo 11/16/22 to this one and it is essentially unchanged wall motion abnormality. No need for LHC and no further cardiac workup is needed for this. On Lasix 40 mg PO daily and fluid restriction to 1.5 l/day. (4) Hypertension: Code(s): I10 - Essential (primary) hypertension Status: Acute Assessment and Plan: High. On Metoprolol Tartate 25 mg BID and increase Losartan 100 mg daily. Monitor. (5) Hyperlipidemia: Code(s): E78.5 - Hyperlipidemia, unspecified Status: Acute Assessment and Plan: On Lovastatin. (6) COPD exacerbation: Code(s): J44.1 - Chronic obstructive pulmonary disease with (acute) exacerbation Status: Acute Assessment and Plan: Nebs and as per hospitalist. Subjective Date/time seen: 06/04/23 07:45 Interval history: Denies chest pain. Has some sob with wheezing. Exam Const: General: cooperative, healthy appearing and comfortable Orientation/consciousness: oriented to person, oriented to place and oriented to time Resp: Auscultation: no crackles, no rales, no rhonchi, wheezes and diminished lung sounds Cardio: Rate: regular rate Rhythm: regular rhythm Heart sounds: no murmurs Peripheral pulses: dorsalis pedis present Neuro: General: oriented to person, oriented to place and oriented to time Extrem: Right lower extremity: no edema Left lower extremity: no edema Objective Data Vital Signs Vital Signs: Vital Signs - 24 hr 06/03/23 07:51 06/03/23 08:46 06/03/23 09:59 Temperature Pulse Rate 83 92 Respiratory Rate 20 Blood Pressure Pulse Oximetry 94 100 Oxygen Delivery Nasal Cannula Oxygen Flow Rate 3 06/03/23 08:00 06/03/23 10:00 06/03/23 11:14 Temperature Pulse Rate 93 74 76 Respiratory Rate 20 Blood Pressure Pulse Oximetry Oxygen Delivery Oxygen Flow Rate 06/03/23 11:23 06/03/23 11:25 06/03/23 12:21 Temperature 97.2 F L Pulse Rate 76 75 Respiratory Rate 20 20 Blood Pressure 141/47 H Pulse Oximetry 100 97 Oxygen Delivery Oxygen Flow Rate 06/03/23 12:00 06/03/23 12:00 06/03/23 14:00 Temperature Pulse Rate 86 86 78 Respiratory Rate 20 Blood Pressure Pulse Oximetry 97 Oxygen Delivery Nasal Cannula Oxygen Flow Rate 3 06/03/23 15:16 06/03/23 15:16 06/03/23 15:25 Temperature Pulse Rate 75 77 Respiratory Rate 20 20 Blood Pressure Pulse Oximetry 93 Oxygen Delivery Nasal Cannula Oxygen Flow Rate 3 06/03/23 16:37 06/03/23 16:00 06/03/23 16:00 Temperature 98.8 F Pulse Rate 79 85 85 Respiratory Rate 20 20 Blood Pressure 157/50 H Pulse Oximetry 96 96 Oxygen Delivery Nasal Cannula Oxygen Flow Rate 3 06/03/23 18:00 06/03/23 19:53 06/03/23 20:27 Temperature 97.6 F Pulse Rate 78 75 75 Respiratory Rate 20 20 Blood Pressure 151/60 H Pulse Oximetry 92 Oxygen Delivery Oxygen Flow Rate 06/03/23 20:28 06/03/23 20:34 06/03/23 20:00 Temperature Pulse Rate 76 70 Respiratory Rate 20 Blood Pressure Pulse Oximetry 92 Oxygen Delivery Nasal Becki
[2023-06-04] MEDS: PANTOPRAZOLE 40 MG TABLET PO (08:20)
[2023-06-04] MEDS: METOPROLOL TARTRATE 25 MG TABLET PO (08:21)
[2023-06-04] MEDS: ESCITALOPRAM OXALATE 10 MG TABLET PO (08:21)
[2023-06-04] MEDS: FUROSEMIDE 40 MG TABLET PO (08:21)
[2023-06-04] MEDS: LOSARTAN POTASSIUM 50 MG TABLET 100 MG PO (08:21)
[2023-06-04] MEDS: ASPIRIN 81 MG ENTERIC TABLET PO (08:21)
[2023-06-04] MEDS: AMOXICILLIN/CLAVULANATE K 875-125 MG TAB 1 TABLET PO (08:21)
[2023-06-04] MEDS: ENOXAPARIN 30 MG/0.3 ML SYRINGE SUB-Q (08:21)
[2023-06-04] MEDS: INSULIN ASPART (*BKC) 100 UNITS/ML SUB-Q ×2 (08:22→12:11)
[2023-06-04 09:16] LABS: Glucose Point of Care 215 mg/dl (65-105)
[2023-06-04 12:00] LABS: Glucose Point of Care 217 mg/dl (65-105)
--- NOTE | 2023-06-04 13:22 | PM.IMPN ---
Progress Note: A&P Assessment and Plan (1) Acute and chronic respiratory failure with hypoxia: Code(s): J96.21 - Acute and chronic respiratory failure with hypoxia Status: Inactive Assessment and Plan: Secondary to COPD exacerbation, CHF. Chest CTA was negative for pneumonia, pulmonary embolism, and edema. Wean oxygen as tolerated to baseline of 4 L. (2) COPD exacerbation: Code(s): J44.1 - Chronic obstructive pulmonary disease with (acute) exacerbation Status: Acute Assessment and Plan: Patient presents with increasing shortness of breath, wheezing, and hypoxia. Chest CTA showed emphysema. Continue scheduled bronchodilators and methylprednisolone. Augmentin ordered given increasing shortness of breath and worsening cough. (3) Non-ST elevation myocardial infarction (NSTEMI): Code(s): I21.4 - Non-ST elevation (NSTEMI) myocardial infarction Status: Acute Assessment and Plan: High sensitivity troponins drawn at outside facility trended upwards (76 - 231.7 - 324 - 478.2 - 617.2 - 800.8). EKG shows ST depressions in the anterolateral leads with most recent EKG showing T-wave inversions in lead 3. Patient remains chest pain-free; may be type 2 myocardial infarction from hypoxia related to her COPD exacerbation. Stress test in fall 2022 was unremarkable and EF was normal on echo in November 2022. pt seen by cardiology no need for further heart cath (4) Diastolic congestive heart failure: Code(s): I50.30 - Unspecified diastolic (congestive) heart failure Status: Acute Assessment and Plan: Appears [place]uv[place] [address]. She received Lasix 40 mg IV in the ED. can transition to oral lasix watch bmp and bnp (5) Coronary artery disease: Code(s): I25.10 - Atherosclerotic heart disease of [place] coronary artery without angina pectoris Status: Acute Assessment and Plan: Patient has a history of stents 20+ years ago with a normal stress test in fall 2022. (6) Hypertension: Code(s): I10 - Essential (primary) hypertension Status: Acute Assessment and Plan: Continue to monitor blood pressures closely and make adjustments depending on how she trends. (7) Insulin dependent type 2 diabetes mellitus: Code(s): E11.9 - Type 2 diabetes mellitus without complications; Z79.4 - nursing home (current) use of insulin Status: Acute Assessment and Plan: Hemoglobin A1c was 6.8% in January 2023. Continue basal insulin. Initiate sliding scale insulin, Accu-Cheks, and hypoglycemic protocol. Sugars are running high (8) Hyperlipidemia: Code(s): E78.5 - Hyperlipidemia, unspecified Status: Acute Assessment and Plan: Continue lovastatin; AST and ALT are very mildly elevated. (9) Hypothyroidism: Code(s): E03.9 - Hypothyroidism, unspecified Status: Acute Assessment and Plan: Continue levothyroxine and check TSH. (10) Chronic kidney disease: Code(s): N18.9 - Chronic kidney disease, unspecified Status: Acute Assessment and Plan: Creatinine and GFR are near her baseline. Subjective Date/time seen: 06/04/23 13:22 Interval history: 82-year-old female with chronic respiratory failure on 4 L nasal cannula, chronic obstructive pulmonary disease, coronary artery disease with history of stents 20 years ago with normal stress test in fall 2022, hypertension, hyperlipidemia, chronic kidney disease, hypothyroidism, and insulin-dependent type 2 diabetes mellitus who is being directly admitted to IMU from the emergency department at [facility] for further treatment and evaluation of COPD exacerbation and elevated troponin. Pt cxr shows pulmonary edema admitted for chf and copd excerbation 06/03/2023 pt seen by cardiology continue Lasix 40 mg PO daily and fluid restriction to 1.5 l/day. as per
--- NOTE | 2023-06-04 13:38 | PM.DS ---
DS: Admitting Diagnosis Discharge Date 06/04/2023 Admitting Diagnosis COPD exacerbation, elevated troponin. DS: Discharge Diagnosis Discharge Diagnosis (1) Acute and chronic respiratory failure with hypoxia: Code(s): J96.21 - Acute and chronic respiratory failure with hypoxia Status: Inactive Assessment and Plan: Secondary to COPD exacerbation, CHF. Chest CTA was negative for pneumonia, pulmonary embolism, and edema. Wean oxygen as tolerated to baseline of 4 L. (2) COPD exacerbation: Code(s): J44.1 - Chronic obstructive pulmonary disease with (acute) exacerbation Status: Acute Assessment and Plan: Patient presents with increasing shortness of breath, wheezing, and hypoxia. Chest CTA showed emphysema. Continue scheduled bronchodilators and methylprednisolone. Augmentin ordered given increasing shortness of breath and worsening cough. (3) Non-ST elevation myocardial infarction (NSTEMI): Code(s): I21.4 - Non-ST elevation (NSTEMI) myocardial infarction Status: Acute Assessment and Plan: High sensitivity troponins drawn at outside facility trended upwards (76 - 231.7 - 324 - 478.2 - 617.2 - 800.8). EKG shows ST depressions in the anterolateral leads with most recent EKG showing T-wave inversions in lead 3. Patient remains chest pain-free; may be type 2 myocardial infarction from hypoxia related to her COPD exacerbation. Stress test in fall 2022 was unremarkable and EF was normal on echo in November 2022. pt seen by cardiology no need for further heart cath (4) Diastolic congestive heart failure: Code(s): I50.30 - Unspecified diastolic (congestive) heart failure Status: Acute Assessment and Plan: Appears euvolemic [place] [address]. She received Lasix 40 mg IV in the ED. can transition to oral lasix ok to dc today (5) Coronary artery disease: Code(s): I25.10 - Atherosclerotic heart disease of [place] coronary artery without angina pectoris Status: Acute Assessment and Plan: Patient has a history of stents 20+ years ago with a normal stress test in fall 2022. (6) Hypertension: Code(s): I10 - Essential (primary) hypertension Status: Acute Assessment and Plan: Continue to monitor blood pressures closely and make adjustments depending on how she trends. (7) Insulin dependent type 2 diabetes mellitus: Code(s): E11.9 - Type 2 diabetes mellitus without complications; Z79.4 - termination clerk (current) use of insulin Status: Acute Assessment and Plan: Hemoglobin A1c was 6.8% in January 2023. Continue basal insulin. Initiate sliding scale insulin, Accu-Cheks, and hypoglycemic protocol. Sugars are better ok to dc today (8) Hyperlipidemia: Code(s): E78.5 - Hyperlipidemia, unspecified Status: Acute Assessment and Plan: Continue lovastatin; AST and ALT are very mildly elevated. (9) Hypothyroidism: Code(s): E03.9 - Hypothyroidism, unspecified Status: Acute Assessment and Plan: Continue levothyroxine (10) Chronic kidney disease: Code(s): N18.9 - Chronic kidney disease, unspecified Status: Acute Assessment and Plan: Creatinine and GFR are near her baseline. DS: Summary Hospital Course Hospital Course: 82-year-old female with chronic respiratory failure on 4 L nasal cannula, chronic obstructive pulmonary disease, coronary artery disease with history of stents 20 years ago with normal stress test in fall 2022, hypertension, hyperlipidemia, chronic kidney disease, hypothyroidism, and insulin-dependent type 2 diabetes mellitus who is being directly admitted to IMU from the emergency department at [facility] for further treatment and evaluation of COPD exacerbation and elevated troponin. Pt cxr shows pulmonary edema admitted for chf and copd excerbation 06/03/2023 pt see
== END 2023-06-04 15:08 | disposition home or self-care (01) | DRG 280 ==
PROVIDERS: Internal Medicine Cardiovascular Disease; Physician Assistant; Admitting Provider Hospitalist; PCP Internal Medicine; Visit Provider Family Medicine
DX: I13.0 Hypertensive heart and chronic kidney disease with heart failure and stage 1 through stage 4 chronic kidney disease, or unspecified chronic kidney disease (principal); I50.33 Acute on chronic diastolic (congestive) heart failure; I21.A1 Myocardial infarction type 2; J96.21 Acute and chronic respiratory failure with hypoxia; J44.1 Chronic obstructive pulmonary disease with (acute) exacerbation; I25.10 Atherosclerotic heart disease of native coronary artery without angina pectoris; E11.22 Type 2 diabetes mellitus with diabetic chronic kidney disease; K21.9 Gastro-esophageal reflux disease without esophagitis; E78.5 Hyperlipidemia, unspecified; E03.9 Hypothyroidism, unspecified; Z95.5 Presence of coronary angioplasty implant and graft; Z90.49 Acquired absence of other specified parts of digestive tract; Z87.891 Personal history of nicotine dependence; Z90.711 Acquired absence of uterus with remaining cervical stump; Z79.4 Long term (current) use of insulin; Z79.82 Long term (current) use of aspirin
CPT/HCPCS: 36415; 36600; 80048; 80053; 82375; 82805; 82948; 83050; 83735; 84439; 84443; 84480; 84484; 85025; 85027; 93005; 93306; 94640; 96372; 96374; 96375; 96376; 97161; A9270; G0378; G0379; J1650; J1815; J1940; J2919

== ENCOUNTER 2023-07-08 11:24 | Outpatient (CLI) | payer MEDICARE, SELFPAY ==
--- NOTE | ~2023-07-08 | US_ITS ---
EXAMINATION: US venous doppler [facility] DATE: 07/08/2023 11:58 INDICATION: Lower limb edema. TECHNIQUE: Grayscale ultrasound images without and with compression and Doppler ultrasound images of the bilateral lower extremity veins were obtained. COMPARISON: None. FINDINGS: The visualized portions of right common femoral vein, profunda (deep) femoral vein, femoral vein, pop liteal vein, peroneal veins, posterior tibial veins, and greater saphenous vein outflow are patent. The visualized portions of left common femoral vein, profunda femoral vein, femoral vein, popliteal v ein, peroneal veins, posterior tibial veins, and greater saphenous vein outflow are patent. IMPRESSION: 1. No deep venous thrombosis. Reviewed, dictated and finalized at location A.
== END 2023-07-08 11:25 | disposition home or self-care (01) ==
LOC: CHSIMG 11:30
PROVIDERS: PCP Internal Medicine; Visit Provider Internal Medicine
DX: R06.9 Unspecified abnormalities of breathing (principal)
CPT/HCPCS: 93970

== ENCOUNTER 2023-10-11 14:34 | Outpatient (CLI) | payer MEDICARE, SELFPAY ==
--- NOTE | ~2023-10-11 | XR_ITS ---
XR chest 2V 10/11/2023 14:52 Indication: Shortness of breath. COPD. Procedure: 2 view chest Comparison: 06/01/2023 Findings: Chronic left perihilar linear infiltrate. Chronic interstitial infiltrates of the lung base s, right greater than left. The lungs are hyperinflated which is consistent with, but not diagnostic of chronic obstructive pulmonary disease. Borderline heart size. No acute osseous abnormality. Impression: 1: Chronic bibasilar interstitial infiltrates which may represent mild edema or chronic interstitial lung disease. Reviewed, dictated and finalized at location B. Impression: 1: Chronic bibasilar interstitial infiltrates which may represent mild edema or chronic interstitial lung disease.
== END 2023-10-11 14:35 | disposition home or self-care (01) ==
LOC: CHSIMG 14:35
PROVIDERS: PCP Nurse Practitioner Family; Visit Provider Nurse Practitioner Family
DX: R06.02 Shortness of breath (principal); J44.9 Chronic obstructive pulmonary disease, unspecified; R91.8 Other nonspecific abnormal finding of lung field
CPT/HCPCS: 71046

== ENCOUNTER 2024-01-29 23:06 | Emergency (ER) | payer MEDICARE, SELFPAY ==
--- NOTE | ~2024-01-29 | CT_ITS ---
Clinical Indication: Respiratory failure, positive d-dimer CT Scan of the Chest with Contrast: Technique: Contiguous sections were acquired throughout the chest after intravenous administration of 100 cc of Omnipaque 350. Dose reduction technique was used on this scan by utilizing automated expos ure control and iterative reconstruction technique. The dose-length product (DLP) was 411.09 mGy-cm. COMPARISON: 06/01/2023 Findings: There is no evidence of any significant mediastinal, hilar or axillary lymphadenopathy. There is no f illing defect in the pulmonary arterial tree to suggest pulmonary embolus. There is no evidence of ao rtic dissection or aneurysm. There are atherosclerotic calcifications of the aorta and coronary arter ies There is no evidence of pleural or pericardial effusion. Probable moderate to advanced emphysema. There is probable atelectasis at the lingula and left lung b ase posteriorly. Images through the upper abdomen reveal no abnormalities. Impression: No evidence of pulmonary embolus, aortic dissection, or aortic aneurysm. Moderate to advanced emphysema with lingular and left lower lobe atelectasis. Pneumonia less likely o f the left lung base. Correlate clinically. Reviewed, dictated and finalized at location . 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 Moderate to advanced emphysema with lingular and left lower lobe atelectasis. P neumonia less likely of the left lung base. Correlate clinically.
--- NOTE | ~2024-01-29 | XR_ITS ---
Portable chest x-ray Comparison: 01/29/2024 at 11:18 PM Clinical History: Line placed Findings: Left IJ line in satisfactory position. No pneumothorax. Questionable minimal bibasilar pul monary edema. Cardiomediastinal silhouette is stable. Bones and soft tissues are unremarkable. Impression: Left IJ line in place. No pneumothorax. Questionable minimal bibasilar pulmonary edema. Reviewed, dictated and finalized at location . TABLE VENDOR Impression: Left IJ line in place. No pneumothorax. Questionable minimal bibasilar pulmonary edema.
--- NOTE | ~2024-01-29 | XR_ITS ---
Portable chest x-ray Comparison: 10/11/2023 Clinical History: Shortness of breath Findings: Possible patchy left basilar airspace disease. Right lung clear. Cardiomediastinal silhou ette is stable. Bones and soft tissues are unremarkable. Impression: Possible left basilar pneumonia or atelectasis. Correlate clinically. Reviewed, dictated and finalized at [facility]. UTIVE MARKETING ASSISTANT Impression: Possible left basilar pneumonia or atelectasis. Correlate clinically.
--- NOTE | 2024-01-29 23:07 | ED_ITS ---
HPI - SOB/Dyspnea General Chief Complaint: Shortness of Breath/Dyspnea Stated Complaint: SOB Time Seen by Provider: 01/29/24 23:07 Source: patient Mode of arrival: ambulatory Limitations: no limitations History of Present Illness HPI Narrative: 83-year-old female with a history of ex smoking, 40 pack years quit in 2018, Anxiety, COPD on home oxygen 5 liters/minute, diabetes mellitus, hypothyroidism, hypertension, CAD status post stents 20 years ago, HFpEF with an EF of 55-60% with a negative stress test in septum of 2022, CKD presents to the ED Via EMS with a 3 day history of -- worsening shortness of breath. the patient was noted to be hypoxic on presentation with an oxygen saturation in the 70s. -- nonproductive cough. -- generalized weakness for the past 1 week -- severe anxiety no fever or chills. No chest pain. The patient received Solu-Medrol 125 IM and DuoNeb treatment EN route to the hospital. MD elicited complaint: shortness of breath and cough Pertinent past history: COPD and congestive heart failure Onset (ago): day(s) ( 3 days) Timing: constant Severity: severe Exacerbating factors: lying flat Relieving factors: bronchodilators Known history of: COPD and congestive heart failure Associated symptoms: cough and wheezing Treatment prior to arrival: oxygen, bronchodilator and other ( Solu-Medrol) Related Data Home oxygen amount: 4 liters ( 45 liters/minute) Home Medications ?Medication ?Instructions ?Recorded ?Confirmed ?Last Taken ?Type insulin glargine 100 unit/mL (3 14 unit subcut HS 05/15/21 12/24/23 06/01/23 History mL) subcutaneous pen (Lantus 14 Solostar U-100 Insulin) insulin lispro 100 unit/mL See Protocol subcut DAILY 05/15/21 12/24/23 01/31/23 History subcutaneous pen (Humalog KwikPen (U-100) Insulin) lovastatin 20 mg tablet 20 mg PO HS 05/15/21 12/24/23 06/01/23 History omeprazole 40 mg capsule,delayed 40 mg PO DAILY 05/15/21 12/24/23 06/02/23 History release 0900 aspirin 81 mg tablet,delayed 81 mg PO DAILY 09/26/21 12/24/23 01/31/23 History release montelukast 10 mg tablet 10 mg PO HS 09/26/21 12/24/23 01/31/23 History escitalopram oxalate 20 mg tablet 20 mg PO DAILY 07/14/23 12/24/23 Unknown History losartan 100 mg tablet 100 mg PO DAILY 07/14/23 12/24/23 Unknown History furosemide 40 mg tablet 40 mg PO BID 10/25/23 12/24/23 Unknown History ensifentrine 3 mg/2.5 mL 2.5 ml inhalation QAM AND QPM 12/24/23 12/24/23 Unknown History suspension for nebulization (Ohtuvayre) Allergies Allergy/AdvReac Type Severity Reaction Status Date / Time No Known Allergies Allergy Verified 07/21/23 14:32 Review of Systems 2 Review of Systems: All systems reviewed & are unremarkable except as noted in HPI and below Constitutional: Constitutional: Reports as per HPI and Reports no additional constitutional complaints Eyes: Eyes: Reports as per HPI and Reports no additional eye complaints ENT: Reports system reviewed and no additional complaints, except as documented and Reports as per HPI Cardiovascular: Cardiovascular: Reports as per HPI and Reports no additional cardiovascular complaints Respiratory: Respiratory: Reports as per HPI, Reports no additional respiratory complaints, Reports chest congestion, Reports cough, Reports dyspnea and Reports wheezing Gastrointestinal: Gastrointestinal: Reports as per HPI and Reports no additional gastrointestinal complaints Genitourinary: Genitourinary: Reports no additional female genitourinary complaints and Reports as per HPI Musculoskeletal: Musculoskeletal: Reports no additional musculoskeletal complaints and Reports as per HPI Integumentary/Breasts: Skin/Breast: Reports system reviewed and no additional complaints, except as docu and Reports as per HPI Psychiatric: Psychiatric: Reports no additional psychiatric complaints and Reports as per HPI Endocrine: Endocrine: Reports no additional endocrine complaints and Reports as per HPI Hematologic/Lymphatic: Hematologic/Lymphatic: Reports no additional hematologic/lymphatic complaints and Reports as per HPI Allergic/Immunologic: Allergic/Immunologic: Reports no additional allergic/immunologic complaints and Reports as per HPI FORMERLY [facility], [facility] Past Medical History Medical History Insulin dependent type 2 diabetes mellitus Diastolic congestive heart failure Chronic kidney disease Hypothyroidism Coronary artery disease Gastroesophageal reflux disease Chronic obstructive pulmonary disease Hyperlipidemia Hypertension Surgical History Surgical History History of cholecystectomy History of appendectomy History of partial hysterectomy Family History Family History Father Cerebrovascular accident Mother Diabetes mellitus Heart disease Sibling Throat cancer Renal failure Suicide Sibling Heart disease Social History Social History Social History: Surrogate medical decision maker: anjelica Ward. Code status: Smoking packs per day: 1 Smoking cigarettes per day: 20.0 Years smoked: 40 Smoking pack-years: 40.00 Smoking status: Former smoker Tobacco type: cigarettes Second hand tobacco smoke exposure: Yes Smoking end date: 06/01/18 Alcohol intake: never Alcohol use details: Social Substance use: never Do You Feel Safe in your Home?: Yes Lack of Transportation: No Lack of Food: Never True Current Housing: I Have Housing Concerned About Future Housing: No Difficulty Paying Gas/Electric Bills: No Difficulty Paying for Meds: No Currently Unemployed: No Education: High School Diploma/GED Difficulty w/ Childcare or Family Care: No Living arrangements: with family Additional living arrangements comments: Lives with son in [place]. 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 Gender identity (if verbalized by the patient): Female Spiritual care concerns: No Exam 2 Narrative: blood pressure of 200/72. Oxygen saturation of 85% on 100% FiO2 peep with a respiratory rate of 28. Const: General: ill appearing Orientation/consciousness: patient oriented x3 HENMT: Head: normal to inspection Ears: external ears normal F crystal/Nose/Sinus: Normal external nose present Face and sinus: normal facial exam Mouth: Yes Normal oral and palatal mucosa present Throat: posterior oropharynx normal Eyes: Conjunctivae: conjunctivae normal Pupils: Equal, round and reactive pupils present EOM: EOMs intact bilaterally Direct Ophthalmoscopy: no photophobia Neck: Neck: normal visual inspection Chest: Chest palpation & inspection: normal inspection of the chest Resp: Effort & Inspection: uses accessory muscles Auscultation: rales, rhonchi and diminished lung sounds Cardio: Rate: regular rate Rhythm: regular rhythm GI: GI Palp: Yes Soft to palpation Auscultation: normal bowel sounds O ther: no tenderness/rigidity /rebound. : General: Yes no CVA tenderness Back/Spine/Pelvis: Back: no CVA tenderness Skin: General skin exam: normal color Rashes: no rashes Wounds: no wounds Neuro: General: patient oriented x3, moves all extremities, no meningeal signs, no focal motor deficits and CN's II-XI intact bilaterally Cranial nerves: Yes Nystagmus not present Speech: normal speech Gait exam (Neuro): Normal gait present Extrem: General: normal to inspection and no pedal edema Other: Peripheral cyanosis Psych: Mental Status: mental status grossly normal Affect: normal affect Attitude: cooperative Course Course Emergency Course: hypertensive urgency acute on chronic hypoxic hypercarbic respiratory failure-- patient received IV Lasix and was started on IV nitroglycerin. She was placed on BiPAP 10/ with an FiO2 of 50%. The patient has a tidal volume of around 600 with an air leak cough 75. The patient was noted to have an ABG of 732/56/58/ 88%. CHF exacerbation positive D-dimer- Will get a CTA of the chest to rule out PE. CTA of the chest was negative for PE. CTA revealed pulmonary arterial hypertension, cardiomegaly, emphysema, lingular scarring and dependent airspace opacity at the left lung base. acute on chronic renal failure- Patient has a BUN/creatinine of 43/1.48 which is up from a baseline creatinine of 1.2. Vital Signs Vital signs: Vital Signs Temperature 37.1 C 01/29/24 23:10 Pulse Rate 80 01/29/24 23:10 Respiratory Rate 28 H 01/29/24 23:10 Blood Pressure 200/72 H 01/29/24 23:10 Pulse Oximetry 85 L 01/29/24 23:10 Oxygen Delivery Non-Rebreather Mask 01/29/24 23:10 Oxygen Flow Rate 10 01/29/24 23:10 Temperature 37.1 C 01/29/24 23:10 Pulse Rate 77 01/30/24 01:30 Respiratory Rate 24 H 01/30/24 01:17 Blood Pressure 105/55 L 01/30/24 01:17 Pulse Oximetry 93 01/30/24 01:30 Oxygen Delivery BiPAP 01/30/24 00:32 Oxygen Flow Rate 10 01/29/24 23:10 Procedures Central Line Placement Left IJ: Central Line Date: 01/30/24 Central Line Time: 00:18 Discussed w/ the patient/family/POA,the placement of a central venous catheter, including its clinical necessity/indication & associated potential risks, benifits and alternatives.: Yes The patient/family/POA understand(s) and acknowledge(s) the need to proceed with central venous catheter insertion as an important element of the patient's clinical management.: Yes Time Out Performed: Yes Patient Placed on Monitor/Pulse Ox: Yes Max. Sterile Barrier Technique: Caps, large sterile sheet and hand hygiene Central Line Prep: other ( ChloraPrep) Technique: US-Guided Local Anesthetic: lidocaine 1% Amount of anesthesia used (mL): 5 Ultrasound Used for Placement: Yes Central Line Lumen Inserted: triple Post Procedure: sutured in place Post Procedure X-Ray: tip of catheter in good position and no pneumothorax seen Patient Tolerated Procedure: well Complications: none MDM - SOB/Dyspnea MDM Narrative Medical decision making narrative: acute on chronic hypoxic hypercarbic respiratory failure secondary to CHF/COPD exacerbation, hypertensive emergency,bibasilar lung infiltrates, volume overload from acute on chronic renal failure. Rule out PE. tested negative for RSV / influenza /COVID -- patient received 40 mg of IV Lasix and was started on IV nitroglycerin, DuoNeb treatments, Solu-Medrol and BiPAP 10/5 with a respiratory rate of 30 and an FiO2 of 40%with significant improvement in oxygenation. Patient is no longer in respiratory distress. she appears comfortable on BiPAP. Differential Diagnosis Differential diagnosis: Likely acute exacerbation of chronic obstructive airways disease, congestive heart failure, community acquired pneumonia and pulmonary embolism Medical Records Attestation: I reviewed the patient's medical records. Lab Data Attestation: I reviewed the patient's lab results. 01/29/24 23:46 01/29/24 23:46 Labs: Lab Results 01/29/24 Range/Units 23:46 WBC 24.8 H* (4.8-10.8) K/mm3 RBC 4.66 (4.20-5.40) M/mm3 Hgb 12.9 (11.7-13.8) g/dL Hct 43.1 H (35.0-42.0) % MCV 92.5 (78.0-102.0) fL MCH 27.7 (27.0-31.0) pg MCHC 29.9 L (32-36) g/dL RDW 14.9 H (11.6-14.4) % Plt Count 401 (150-420) K/mm3 MPV 10.2 (9.2-11.8) fl Immature Gran % (Auto) Not Reportable Neut % (Auto) Not Reportable Lymph % (Auto) Not Reportable [place] % (Auto) Not Reportable Eos % (Auto) Not Reportable Baso % (Auto) Not Reportable Lymph # (Auto) Not Reportable [place] # (Auto) Not Reportable Eos # (Auto) Not Reportable Baso # (Auto) Not Reportable Abs Immat Gran (auto) Not Reportable Absolute Neuts (auto) Not Reportable Absolute Nucleated RBC Not Reportable Total Counted 100 Neutrophils % (Manual) 80 H (46-73) % Band Neutrophils % 0 (0-6) % Lymphocytes % (Manual) 9 L (18-44) % Monocytes % (Manual) 5 (3-9) % Eosinophils % (Manual) 4 (1-6) % Basophils % (Manual) 2 H (0-1) % Nucleated RBC % Not Reportable Abs Neuts (Manual) 19.84 H (1.7-7.2) K/mm3 Abs Lymphs (Manual) 2.23 (1.1-4.5) K/mm3 Abs Monocytes (Manual) 1.24 H (0.1-0.90) K/mm3 Absolute Eos (Manual) 0.99 H (0.02-0.50) K/mm3 Abs Basophils (Manual) 0.49 H (0-0.1) K/mm3 Atypical Lymphocytes Present Platelet Estimate Increased (Adequate) Large Platelets Present Schistocytes None seen PT 11.7 (9.50-12.1) Seconds INR 1.1 APTT 24.2 (23.9-30.70) Sec D-Dimer 1.94 H* (0.19-0.50) mg/L Expiratory Pressure 5 cmH2O Inspiratory Pressure 10 cmH2O Sodium 142 (136-145) mmol/L Potassium 4.7 (3.5-5.1) mmol/L Chloride 104 (98-108) mmol/L Carbon Dioxide 30 (21-32) mmol/L Anion Gap 8 (4-12) mmol/L BUN 43 H (7-18) mg/dL Creatinine 1.48 H (0.55-1.02) mg/dL Estim Creat Clear Calc 22 ml/min Estimated GFR 34 L (59 - ) Glucose 281 H (70-99) mg/dL Calculated Osmolality 314 H (285-295) mOsm/kg Lactic Acid 3.5 H (0.4-2.0) mmol/L Calcium 9.5 (8.5-10.1) mg/dL Total Bilirubin 0.4 (0.00-1.00) mg/dL AST 43 H (15-37) U/L ALT 44 (14-59) U/L Alkaline Phosphatase 150 H (46-116) U/L Troponin I 55.0 (0.00-60.4) ng/L NT-Pro-B Natriuret Pep 29890 H (0-450) pg/mL Total Protein 7.3 (6.4-8.2) g/dL Albumin 2.8 L (3.4-5.0) g/dL TSH 6.61 H (0.36-3.74) uIU/mL Influenza A (RT-PCR) Negative (Negative) Influenza B (RT-PCR) Negative (Negative) RSV (RT-PCR) Negative (Negative) SARS-CoV-2 RNA (RT-PCR) Negative (Negative) ABG Data ABG results: 01/29/24 23:46 Puncture Site Left radial ABG pH 7.32 L ABG pCO2 55.7 H ABG pO2 58.4 L ABG PO2/FiO2 Ratio Not Reportable ABG HCO3 28.1 ABG O2 Saturation 87.9 L ABG O2 Content 15.9 L ABG Base Excess 0.9 A-a Gradient Not Reportable Oxyhemoglobin 87.2 L O2 Delivery Device Bipap O2 Liters/Min 0.0 Imaging Data My impression: Chest x-ray revealed bibasilar lung infiltrates/CHF ECG Data EKG #1: ECG completion date: 01/29/24 ECG completion time: 23:49 Interpretation: Normal sinus rhythm. Right axis deviation. ST depression and T inversion in inferior leads. No ST elevation noted. Discharge Plan Discharge Clinical Impression: Acute on chronic respiratory failure with hypoxia and hypercapnia, Chronic kidney disease, stage 3b, CHF (congestive heart failure) COPD (chronic obstructive pulmonary disease) Qualifiers: COPD type: COPD with acute exacerbation Qualified Code(s): J44.1 - Chronic obstructive pulmonary disease with (acute) exacerbation Hyperglycemia due to type 2 diabetes mellitus Qualifiers: Diabetes mellitus chcf insulin use: with senior corporate accountant use Qualified Code(s): E11.65 - Type 2 diabetes mellitus with hyperglycemia Patient Disposition: Still a Patient Condition: Unstable Additional Instructions: Transfer patient to [facility]. Patient has been accepted by Dr. Queen Patient Language: Gibralt[place] Prescriptions: No Action omeprazole 40 mg capsule,delayed release(DR/EC) 40 mg PO DAILY lovastatin 20 mg tablet 20 mg PO HS insulin lispro [Humalog KwikPen Insulin] 100 unit/mL insulin pen See Protocol subcut DAILY Protocol: Insulin Corrective Low-Dose Condition: glucose < 70 mg/dl Dose/Route: Follow Hypoglycemia Order Condition: glucose 70-200 mg/dl Dose/Route: No additional insulin Condition: glucose 201-250 mg/dl Dose/Route: 2 units sub-Q Condition: glucose 251-300 mg/dl Dose/Route: 3 units sub-Q Condition: glucose 301-350 mg/dl Dose/Route: 4 units sub-Q Condition: glucose 351-400 mg/dl Dose/Route: 5 units sub-Q Condition: glucose > 400 mg/dl Dose/Route: Call MD Protocol Text: *No Correction Dose at Bedtime* insulin glargine [Lantus Solostar U-100 Insulin] 100 unit/mL (3 mL) insulin pen 14 unit subcut HS aspirin 81 mg tablet,delayed release (DR/EC) 81 mg PO DAILY montelukast 10 mg tablet 10 mg PO HS escitalopram oxalate 20 mg tablet 20 mg PO DAILY losartan 100 mg tablet 100 mg PO DAILY Ohtuvayre 3 mg/2.5 mL suspension for nebulization 2.5 ml inhalation QAM AND QPM levothyroxine [Synthroid] 137 mcg Tablet 137 mcg PO DAILY@0630 Qty: 30 0RF metoprolol tartrate 25 mg Tablet 25 mg PO Q12HR Qty: 60 0RF levalbuterol tartrate 45 mcg/actuation HFA aerosol inhaler 2 inh inhalation Q6H PRN (Reason: shortness of breath or wheezing) Qty: 15 2RF sulfamethoxazole-trimethoprim [Bactrim DS] 800-160 mg tablet 1 tablet PO Q12H Qty: 14 0RF Rx Instructions: Hold losartan while on the antibiotic ramelteon 8 mg tablet 8 mg PO QHS PRN (Reason: sleep) Qty: 90 0RF fluticasone furoate-vilanterol [Breo Ellipta] 100-25 mcg/dose blister with device See Rx Instructions .ROUTE .COMPLEX Qty: 180 1RF Dose Instruction: INHALE 1 PUFF EVERY 24 HOURS. RINSE AND SPIT AFTER EACH USE. REPLACES ANORO Rx Instructions: INHALE 1 PUFF EVERY 24 HOURS. RINSE AND SPIT AFTER EACH USE. furosemide 40 mg tablet 40 mg PO BID ipratropium-albuterol 0.5 mg-3 mg(2.5 mg base)/3 mL solution for nebulization 3 ml inhalation Q6H PRN (Reason: shortness of breath or wheezing) 90 Days Qty: 1080 1RF theophylline 400 mg tablet extended release 24 hr See Rx Instructions .ROUTE .COMPLEX Qty: 90 1RF Dose Instruction: TAKE 1 TABLET BY MOUTH EVERY DAY Rx Instructions: TAKE 1 TABLET BY MOUTH EVERY DAY Follow-up/Referrals: Agustina Ramos RN [Primary Care Provider] - Time of Disposition: 01:43
[2024-01-29 23:10] VITALS: BP 200/72; PULSE 80; PULSE 86; RESP 28; TEMP 37.1; O2SAT 85; O2SAT 90
--- NOTE | 2024-01-29 23:10 | ECG_ITS ---
Test Date: 2024-01-29 23:49:47 Measurements Intervals [place] Rate: 84 P: 52 NH: 160 QRS: 121 QRSD: 110 T: -26 QT: 390 QTc: 461 Interpretive Statements SINUS RHYTHM POSSIBLE RIGHT VENTRICULAR HYPERTROPHY [SOME/ALL OF: PROMINENT R IN V1, LATE TRANSITION, RAD, MONIQUE, SSS] ST DEVIATION AND MODERATE T-WAVE ABNORMALITY, CONSIDER INFERIOR ISCHEMIA [-0.1+ mV T-WAVE IN II/aVF] No previous ECG available for comparison Electronically Signed On 01-31-2024 11:59:27 WHEEL ALIGNMENT TECHNICIAN by Spencer Sanchez M.D.
[2024-01-29] MEDS: FUROSEMIDE INJ 40 MG/4 ML VIAL IV PUSH (23:15)
--- NOTE | 2024-01-29 23:15 | PC.NURSE ---
Pt continues to have SOB and difficulty breathing after neb tx was given by EMS on arrival. Pt is incontinent of strong smelling urine on arrival. She remains alert, several attempts at IV access and 1 access obtained in Rt. FA area upon arrival. Resp has been called and is enroute for setup of bipap. Awaiting their arrival.
[2024-01-29] MEDS: ONDANSETRON INJ 4 MG/2 ML VIAL IV PUSH (23:30)
[2024-01-29] MEDS: MORPHINE SULFATE (*CRX) 2 MG/ML INJ IV PUSH (23:32)
[2024-01-29 23:39] VITALS: BP 196/58; PULSE 81
[2024-01-29] MEDS: NITROGLYCERIN/D5W 200 MCG/ML 50 MG/250 ML BTL IV CONT (23:39)
--- NOTE | 2024-01-29 23:40 | PC.NURSE ---
consent verbal obtained from pt to place a central line. Consent signed and witnessed x2 RN.
[2024-01-29 23:42] LABS: Base Excess ABG 0.9 mmol/L (0-2); HCO3 ABG 28.1 mmol/L (23-29); Oxygen Content ABG 15.9 %vol (16.0-22.0); Oxygen Saturation ABG 87.9 % (95-97); Oxyhemoglobin 87.2 % (94-100); PCO2 ABG 55.7 mmHg (35-45); PO2 ABG 58.4 mmHg (75-85); pH ABG 7.32 (7.35-7.45)
[2024-01-29 23:46] VITALS: O2SAT 92
[2024-01-29 23:47] VITALS: BP 164/58; PULSE 85; RESP 30; O2SAT 92
[2024-01-29 23:52] LABS: Hematocrit 43.1 % (35.0-42.0); Hemoglobin 12.9 g/dL (11.7-13.8); Mean Corpuscular HGB Conc 29.9 g/dL (32-36); Mean Corpuscular Hemoglobin 27.7 pg (27.0-31.0); Mean Corpuscular Volume 92.5 fL (78.0-102.0); Mean Platelet Volume 10.2 fl (9.2-11.8); Platelet Count Result 401 K/mm3 (150-420); Red Blood Count 4.66 M/mm3 (4.20-5.40); Red Cell Distribution Width 14.9 % (11.6-14.4)
[2024-01-30] VITALS (37 sets, daily range): BP systolic 84–135; BP diastolic 33–79; PULSE 73–91; RESP 19–30; TEMP 36.9–37; O2SAT 87–100
[2024-01-30 00:01] LABS: White Blood Count 24.8 K/mm3 (4.8-10.8)
[2024-01-30 00:02] LABS: Device BIPAP; Modified Allen's Test Pass; Site Drawn LEFT RADIAL
[2024-01-30 00:03] LABS: Expiratory Pressure 5 cmH2O; INR 1.1; Inspiratory Pressure 10 cmH2O; Partial Thromboplastin Time 24.2 Sec (23.9-30.70); Prothrombin Time 11.7 Seconds (9.50-12.1)
[2024-01-30 00:06] LABS: Lactic Acid Reflex 3.5 mmol/L (0.4-2.0)
[2024-01-30 00:07] LABS: D Dimer 1.94 mg/L (0.19-0.50)
[2024-01-30 00:13] LABS: Alanine Aminotransferase 44 U/L (14-59); Albumin Level 2.8 g/dL (3.4-5.0); Alkaline Phosphatase 150 U/L (46-116); Anion Gap 8 mmol/L (4-12); Aspartate Amino Transferase 43 U/L (15-37); Bilirubin,Total 0.4 mg/dL (0.00-1.00); Blood Urea Nitrogen 43 mg/dL (7-18); Calcium 9.5 mg/dL (8.5-10.1); Carbon Dioxide 30 mmol/L (21-32); Chloride 104 mmol/L (98-108); Estimated CRCL calculation 22 ml/min; Estimated Glomerular Filt Rate 34; Glucose 281 mg/dL (70-99); NT Pro B Type Natriuretic Pept 11448 pg/mL (0-450); Osmolality Calculated 314 mOsm/kg (285-295); Potassium 4.7 mmol/L (3.5-5.1); Sodium 142 mmol/L (136-145); Thyroid Stimulating Hormone 6.61 uIU/mL (0.36-3.74); Total Protein 7.3 g/dL (6.4-8.2)
--- NOTE | 2024-01-30 00:16 | PC.NURSE ---
Pts son called to return to ER to discuss POC and transfer for pt.
[2024-01-30 00:17] LABS: Total Cells Counted 100
[2024-01-30 00:18] LABS: Atypical Lymphocytes Present; Band Neutrophils Percent 0 % (0-6); Basophils Absolute Manual 0.49 K/mm3 (0-0.1); Basophils Percent Manual 2 % (0-1); Eosinophils Absolute Manual 0.99 K/mm3 (0.02-0.50); Eosinophils Percent Manual 4 % (1-6); Large Platelets Present; Lymphocytes Absolute Manual 2.23 K/mm3 (1.1-4.5); Lymphocytes Percent Manual 9 % (18-44); Monocytes Absolute Manual 1.24 K/mm3 (0.1-0.90); Monocytes Percent Manual 5 % (3-9); Neutrophils Absolute Manual 19.84 K/mm3 (1.7-7.2); Neutrophils Percent Manual 80 % (46-73); Platelet Estimate Increased (Adequate); Schistocytes None Seen
--- NOTE | 2024-01-30 00:20 | PC.NURSE ---
Pts son here to discuss POC and transfer. Pt son wanting transfer to [place] or to [facility] if needed. Calls will be made
[2024-01-30 00:27] LABS: SARS-CoV-2 RNA PCR Negative (Negative)
[2024-01-30 00:28] LABS: Influenza A QL RT-PCR Negative (Negative); Influenza B QL RT-PCR Negative (Negative); RSV RNA, RT-PCR Negative (Negative)
[2024-01-30] MEDS: AZITHROMYCIN 500 MG/NS 250 ML 500 MG/250 ML BAG 250 MG IVPB (01:01)
[2024-01-30] MEDS: INSULIN HUMAN REGULAR (*BKC) 1,000 UNITS/10 ML VIAL 5 UNITS SUB-Q (01:12)
--- NOTE | 2024-01-30 01:17 | PC.NURSE ---
Pt given sips of ice water, continues w/ bipap in place, RT at bedside, Pt resting on side, continuing to monitor.
--- NOTE | 2024-01-30 01:50 | PC.NURSE ---
Accepting facility [facility], awaiting call back for bed placement. Pt sleeping, resting comfortably w/ bipap in place. VSS, continuing to monitor.
--- NOTE | 2024-01-30 02:08 | PC.NURSE ---
Call back from [facility], will have a bed for pt in about 1 hr and will call back when available.
[2024-01-30] MEDS: SODIUM CHLORIDE 0.9% IV 500 ML 999 ML IV CONT (02:26)
[2024-01-30 02:47] LABS: Reflex Lactic Acid Yes or No Add Lactic
--- NOTE | 2024-01-30 03:23 | PC.NURSE ---
Pt sleeping, Bipap in place, VSS, continuing to monitor, awaiting bed assignment.
--- NOTE | 2024-01-30 03:56 | PC.NURSE ---
Call placed to [facility] transfer line for bed status. Stated will call back shortly w/ info on pt bed.
--- NOTE | 2024-01-30 04:11 | PC.NURSE ---
Call back from [facility], report given, pt will go to Rm [phone].
--- NOTE | 2024-01-31 14:25 | PC.NURSE ---
BLOOD CULTURE PRELIMINARY GRAM POSITIVE COCCI CLUSTER ISOLATED REPORT CALLED TO JUDI [phone] TO NURSES STATION RHONDA RN SHE SAID TO FAX FINAL WHEN RECEIVED
--- NOTE | 2024-02-01 08:19 | PC.NURSE ---
PRELIMINARY BLOOD CULTURE RESULTS FROM CENTRAL LINE: GRAM POSITIVE COCCI IN CLUSTERS ISOLATED, FROM AEROBIC AND ANAEROBIC BOTTLES, IDENTIFICATION TO FOLLOW. SPOKE WITH ANDREW LANDIN AT [facility], RESULTS FAXED TO [phone].
--- NOTE | 2024-02-01 12:47 | PC.NURSE ---
PRELIMINARY BLOOD CULTURE; STAPHYLOCOCCUS EPIDERMIDIS, WILL CONTINUE TO MONITOR FOR FINAL C&S
--- NOTE | 2024-02-02 08:02 | PC.NURSE ---
FINAL BLOOD CULTURE RESULTS: CENTRAL LINE STAPHYLOCOCCUS EPIDERMIDIS FROM AEROBIC AND ANAEROBIC BOTTLES, REPORT FAXED TO [facility] [phone]
--- OUTSIDE RECORDS SUMMARY | 2024-02-03 11:14 | XMS_ITS | Clinical Summary ---
Author Organization [facility] Address [address] [place] [address]. [place], [place] [address] [place] [address] Care Team Providers Care As400 Developer Name Role Phone Unavailable Primary Care Provider Unavailabl e Allergies No known active allergies Medications VENTOLIN HFA 108 (90 BASE) MCG/ACT inhaler Inhale 1 puff into the lungs as needed for Wheezing or Shortness of breath. 06/06/19 17 Active aspirin EC (ASPIRIN) 81 MG EC tablet Take 81 mg by mouth daily. Active ANORO ELLIPTA 62.5-25 MCG/INH inhaler Inhale 1 puff into the lungs daily. 07/26/19 20 Active SOFTCLIX LANCETS Misc 08/01/19 20 Active calcium carbonate-vitamin D 600-400 MG-UNIT tabletIndications :Congestive heart failure ([facility]) Take 1 tablet by mouth 2 (two) times daily. clarification of script 180 tablet 1 10/02/19 20 Active Insulin Pen Needle (DROPLET PEN NEEDLES) 31G X 8 MM MiscIndications:D iabetes ([facility]) TO USE TO INJECT INSULIN QID 1 Container 5 03/19/19 21 Active insulin lispro, 1 Unit Dial, (HUMALOG KWIKPEN) 100 UNIT/ML injection (PEN)Indications: Diabetes mellitus ([facility]) INJECT SUBCUTANEOUSLY 3 TIMES DAILY PER SLIDING SCALE (UP TO DAILY DOSE OF 35-40 UNITS) 12 pen 08/13/19 21 Active furosemide 40 MG tabletIndications :Congestive heart failure ([facility]) TAKE 1 TABLET BY MOUTH DAILY IN THE MORNING 90 tablet 1 11/20/19 21 Active LORazepam (ATIVAN) 0.5 MG tabletIndications :Panic attack Take 1 tablet (0.5 mg total) by mouth every 6 (six) hours as needed for Anxiety. 20 tablet 11/22/19 21 Active Continuous Blood Gluc Athletic Agent (FREESTYLE SANDER 14 DAY READER) DeviceIndications :Type 2 diabetes mellitus with diabetic nephropathy, with long-term current use of insulin ([facility]) Use to check blood sugar four times daily and as directed. 1 each 02/19/19 22 Active insulin glargine 100 UNIT/ML injection (PEN)Indications: Type 2 diabetes mellitus with diabetic nephropathy, with long-term current use of insulin ([facility]) Inject 16 Units into the skin nightly at bedtime. 5 pen 1 03/03/19 22 Active furosemide 20 MG tabletIndications :Essential hypertension Take 1 tablet (20 mg total) by mouth every evening. 90 tablet 1 03/03/19 22 Active ACCU-CHEK NYDIA PLUS test stripIndications: Type 2 diabetes mellitus with diabetic nephropathy, with long-term current use of insulin ([facility]) Use to check blood sugar twice per day as needed 200 strip 1 04/19/19 22 Active LEVOTHYROXINE 137 MCG tabletIndications :Hypothyroidism, unspecified type TAKE 1 TABLET BY MOUTH IN THE MORNING 100 tablet 05/29/19 22 Active LOVASTATIN 20 MG tabletIndications :Hyperlipidemia, unspecified hyperlipidemia type TAKE 1 TABLET BY MOUTH DAILY 100 tablet 05/29/19 22 Active METOPROLOL TARTRATE 25 MG tabletIndications :Essential hypertension TAKE 1 TABLET BY MOUTH TWICE DAILY 200 tablet 05/29/19 22 Active LOSARTAN 50 MG tabletIndications :Essential hypertension TAKE 1 TABLET BY MOUTH DAILY 100 tablet 06/03/19 22 Active AMLODIPINE 5 MG tabletIndications :Essential hypertension TAKE 1 TABLET BY MOUTH DAILY 100 tablet 06/03/19 22 Active KLOR-CON 10 10 MEQ Tab CR tabletIndications :Hypokalemia TAKE 2 TABLETS BY MOUTH DAILY 180 tablet 06/13/19 22 Active OMEPRAZOLE 40 MG capsuleIndication s:Esophagitis TAKE 1 CAPSULE BY MOUTH DAILY 90 capsule 3 07/16/19 22 Active Active Problems Problem Noted Date Diagnosed Date Axillary mass 07/18/2018 Hypokalemia 05/30/2018 Chronic renal insufficiency, stage III (moderate) ([facility]) 05/16/2018 Congestive heart failure ([facility]) 04/29 Obstructive sleep apnea syndrome 04/29/2018 Anxiety 04/29/2018 Chronic obstructive pulmonary disease ([facility]) 03/07/2018 Diabetes mellitus ([facility]) 03/07/2018 Essential hypertension 03/07/2018 Hyperlipidemia 03/07/2018 Tobacco dependence syndrome 03/07/2018 Chronic hypoxemic respiratory failure ([facility]) 03/07/2018 Esophagitis 03/07/2018 Hypothyroidism 03/07/2018 Coronary arteriosclerosis 06/10/2016 Immunizations Name Administration Dates Next Due Fluzone 6 Months+ Quad (0.5 mL Prefilled Syringe) 11/14/2018 Fluzone High Dose - >Age 65 (Prefilled Syringe) 12/19/2020,11/06/2019 Influenza (Generic) 11/08/2019,12/15/2018,2018 Influenza Adult (Generic) 11/08/2019 Pneumococcal (Prevnar 13) 11/14/2018 Family History Medical History Relation Comments Stroke Father Diabetes Mother Heart Disease Mother Coronary artery disease Other prematur e Heart Disease Sister 1 MT Sister 2 Heart Sister 3 form heart problems Heart Sister 4 from heart problems [place] Son Open Heart Son Stroke Son (after open hear t) Relation Status Comments Father (Age 78) Mother (Age 82) Other Other Family history i s positive for: Sister 1 (Age 70) Sister 2 (Age 55) Sister 3 (Age 70) Sister 4 (Age 58) Son (Age 43) Social History Tobacco Use Types Packs/Day Years Used Date Smoking Tobacco: Former Cigarettes Q uit: 2019 Smokeless Tobacco: Never Tobacco Cessation:Counseling Given: No Alcohol Use Standard Drinks/Week Comments No 0 (1 standard drink = 0.6 oz pur e alcohol) PHQ-2 Answer Date Recorded PHQ-2 Score - If the patient scores above 3, please move on to questions 3-9 0 07/30/2020 Comments No Sex and Gender Information Value Date Recorded Sex Assigned at Not on file Legal Sex Female 6:01 PM CDT Gender Identity Not on file Sexual Orientation Not on file Occupation Industry Job Start Date Job End Date Retired Not on file Not on file Not on file Last Filed Vital Signs Vital Sign Reading Time Taken Comments Blood Pressure 108/64 01/30/2021 2:01 PM BAG GRADER Pulse 63 01/30/2021 2:01 PM BAG GRADER Temperature 36.1 ??C (97 ??F) 01/30/2021 2:01 PM BAG GRADER Respiratory Rate 20 01/30/2021 2:01 PM BAG GRADER Oxygen Saturation 91% 01/30/2021 2:01 PM BAG GRADER Inhaled Oxygen Concentration - - Weight 64.8 kg (142 lb 12.8 oz) 01/30/2021 2:01 PM BAG GRADER Height 152.4 cm (5') 01/30/2021 2:01 PM BAG GRADER Body Mass Index 27.89 01/30/2021 2:01 PM BAG GRADER Plan of Treatment Health Maintenance Due Date Last Done Comments ASCVD Statin 1941 Kidney Health Evaluation 1940 Diabetes: Retinopathy Eye Exam 10/17/1959 DTaP, Tdap and Td Vaccines (1 - Tdap) 1960 Zoster Vaccines (1 of 2) 10/17/1991 Annual Medicare Wellness Visit 2006 Dexa Scan (General) 2006 RSV Immunization or 60+ Years (1 - 1-dose 75+ series) 2016 Pneumococcal Vaccine: 65+ Years (2 of 2 - PPSV23 or PCV20) 01/09/2019 11/14/2018 ASCVD LDL 04/30/2021 04/30/2020, 05/26/2011 Lipid Panel 04/30/2021 04/30/2020, 05/26/2011 Hemoglobin A1C 07/31/2021 01/30/2021, 10/16, 07/30/2020, Additional history exists COVID-19 Vaccine ( - 2023- season) 2023 09/30/2020, 09/09/2020 Influenza Adult (#1) 2023 11/19/2021, 12/19/2020, 11/08/2019, Additional history exists Meningococcal Vaccine Aged Out No jozef jl eligible based on patient's age to complete this topic RSV Immunizations Under 20 Months Aged Out No longer eligible based on patient's age to complete this topic Procedures Procedure Name Priority Date/Time Associated Diagnosis Comments HEMOGLOBIN, GLYCOSYLATED Routine 01/30/2021 Type 2 diabetes mellitus with diabetic nephropathy, with long-term current use of insulin ([facility] HHS/HCC) LIPID PANEL Routine 04/30/2020 4:15 PM CDT Essential hypertension Type 2 diabetes mellitus with diabetic nephropathy, with long-term current use of insulin ([facility] HHS/HCC) from Last 3 Months or Most Recently Relevant to Health Maintenance Results * A1C (BACK OFFICE) (01/30/2021) HGB A1C 7.0 % [id number] T [facility] 01/30/2021 us Jessee Gregg MD LABORATORY Final Resul t -[id number] [facility] [place], [place] [address] [place] [address], * LIPID PANEL (04/30/2020 4:15 PM CDT) CHOLESTEROL 159 <200 mg/dL [facility] HDL 53 > OR = 50 mg/dL [facility] TRIGLYCERIDES 109 <150 mg/dL [facility] LDL (CALCULATED) 85 mg/dL (calc) [facility] Comment: Reference range: <100 Desirable range <100 mg/dL for primary prevention; ?? <70 mg/dL for patients with CHD or diabetic patients with > or = 2 CHD risk factors. LDL-C is now calculated using the Jamil-John calculation, which is a validated novel method providing better accuracy than the Friedewald equation in the estimation of LDL-C. Jamil SS et al. PAUL. 2013;310(19): 0898-3300 (http://education.[facility]/faq/UTU426) CHOL/HDL RATIO 3.0 <5.0 (calc) [facility] NON HDL CHOLESTEROL 106 <130 mg/dL (calc) [facility] Comment: For patients with diabetes plus 1 major ASCVD risk factor, treating to a non-HDL-C goal of <100 mg/dL (LDL-C of <70 mg/dL) is considered a therapeutic option. 04/30/2020 4:15 PM CDT 05/01/2020 5:12 AM CDT us Jessee Gregg MD LABORATORY Final Resul t [facility] [address] [address] [id number] from Last 3 Months or Most Recently Relevant to Health Maintenance Insurance MEDICARE
--- OUTSIDE RECORDS SUMMARY | 2024-02-03 11:15 | XMS_ITS | Encounter Summary ---
Author Organization [facility] Address [address] [place] [address]. [place] [address] [place] [address] Care Team Providers Care Coagulating Bath Mixer Name Role Phone Jessee Gregg MD Primary Care Provider [phone] [phone] Reason for Visit * Reason Onset Date Comments Medication Request 03/12/2021 Encounter Details Date Type Department Care Team (Late st Contact Info) Description 03/12/2021 Telephone [facility] Medical Group Family & Internal Medicine [facility] [address] [place] [address] Jessee Gregg MD [address] [address] Medication Request Social History Tobacco Use Types Packs/Day Years Used Date Smoking Tobacco: Former Cigarettes Q uit: 2019 Smokeless Tobacco: Never Alcohol Use Standard Drinks/Week Comments No 0 [...] file Not on file Not on file documented as of this encounter Progress Notes * Shelly España RN - 04/15/2021 8:59 AM CST Called pt and she states since she moved the sensor for the Dexcom to her upper back arm, it has been staying on 100% better. States she is fine with using the Dexcom now. MBLER TRIM * Candi Blackburn MA - 04/11/2021 10:33 AM CST She stated they are out of network, so insurance will need to be called to see which company pt canuse for this. MBLER TRIM Jeanie Blackburn MA - 04/11/2021 10:22 AM CST Call [facility] Medical . Spoke with Bailee. MBLER TRIM Jeanie Blackburn MA - 04/11/2021 10:20 AM CST Pt has not heard anything from [facility] [employer]. * Shelly España RN - 04/01/2021 9:51 AM CST LVM for pt to call office. Wanting to f/u on if she has heard from anyone with [facility] about her Sophia monitor. MBLER TRIM Jeanie España RN - 03/17/2021 11:54 AM CST Called [facility] and asked them what the status was on pt's Freestyle Sophia. They state they showpt's insurance is inactive. States they show [employer]. Informed them that pt has [employer] [facility] Medicare. States they will need this updated info. New insurance cards faxed to [facility] at [phone]. MBLER TRIM * Candi Blackburn MA - 03/13/2021 10:55 AM CST Please advise Shelly. MBLER TRIM * Candi Blackburn MA - 03/12/2021 12:52 PM CST Pt stated she spoke with a nurse last week and a Sophia 2 device was talked about. She stated she was told nurse would look into it and give her a call back. Do you know anything about this? MBLER TRIM documented in this encounter Plan of Treatment Not on file documented as of this encounter Visit Diagnoses Not on filedocumented in this encounter Additional Health Concerns Assessment Noted Time PHQ-9 Depression Total Score: 0 07/31/19 21 1:55 PM CDT documented as of this encounter Care Teams Coagulating Bath Mixer Relationship Specialty [place] [address] [place] [address] PCP - General FAMILY PRACTICE 08/17/19 06/15/21 documented as of this encounter
--- OUTSIDE RECORDS SUMMARY | 2024-02-03 11:15 | XMS_ITS | Encounter Summary ---
Author Organization [facility] Address [address] [place] [address]. [place] [address] [place] [address] Care Team Providers Care Supervisor Research Shop Name Role Phone Jessee Gregg MD Primary Care Provider [phone] Reason for Visit * Reason Onset Date Comments Blood Sugar Reporting 04/14/2021 Encounter Details Date Type Department Care Team (Late st Contact Info) Description 04/14/2021 Telephone [facility] [address] [place] [address] Jessee Gregg MD [address] [address] Blood Sugar Reporting Social History Tobacco Use Types Packs/Day Years [...] Progress Notes * Shelly España RN - 04/16/2021 8:[address] Gregg, have pt monitor blood sugars and call office if continue to get elevated readings in the 300's and 400's. Called pt and informed her of this. She /vu. TH AND WELLNESS COORDINATOR * Shelly España RN - 04/15/2021 10:14 AM CST Called pt and she states on Wednesday when she woke up her bs was 100 fasting. She staets she had black coffee and it went up to 205. States she ate cereal and at 2pm it was 408. States on Wednesday, hersugar was never below 165. States today at 0730 it was 109 and then had black coffee and went up to141. States her sugar has never went up in the 400's. States she takes Humalog 7-8 units 3 x's daily with meals and Lantus 16 units at hs. Informed her I would sent message to and call her back with what he recommends. She v/u. TH AND WELLNESS COORDINATOR * Jessee Gregg MD - 04/14/2021 4:45 PM CST I think she has a Dexcom. What have her sugars been averaging. TH AND WELLNESS COORDINATOR * Shelly España RN - 04/14/2021 2:47 PM CST Please advise. TH AND WELLNESS COORDINATOR * Kalpana Cabrera LPN - 04/14/2021 2:07 PM CST Pt called Having trouble with elevated blood sugar On 04/12/21 fasting 100 had a bowel of cereal and increased to 400 she took 8 untis of humalog it did not go down that day Today blood sugar is 128 at the time of this call When it went up so high she did not what to do Please advise [phone] She would prefer to be called 04/15/21 TH AND WELLNESS COORDINATOR documented in this encounter Plan of Treatment Not on file documented as of this encounter Visit Diagnoses Not on filedocumented in this encounter Additional Health Concerns Assessment Noted Time PHQ-9 Depression Total Score: 0 07/31/19 21 1:55 PM CDT documented as of this encounter Care Teams Supervisor Research Shop Relationship Specialty [place] [address] [place] [address] PCP - General FAMILY PRACTICE 08/17/19 06/15/21 documented as of this encounter
--- OUTSIDE RECORDS SUMMARY | 2024-02-03 11:15 | XMS_ITS | Encounter Summary ---
Author Organization [facility] Address [address] [place] [address]. [place] [address] [place] [address] Care Team Providers Care Uptwist Spinner Name Role Phone Jessee Gregg MD Primary Care Provider [phone] [phone] Reason for Visit * Reason Onset Date Comments Refill Request 03/03/2021 Encounter Details Date Type Department Care Team (Late st Contact Info) Description 03/03/2021 Telephone [facility] Medical Group Family & Internal Medicine [facility] [id number] [place] [phone] Jessee Gregg MD [address] [address] Refill Request Social History Tobacco Use Types Packs/Day [...] Progress Notes * Shelly España RN - 03/03/2021 10:51 AM CST All rx's sent. ENTRY * Alexandra Godwin - 03/03/2021 10:29 AM CST Medication and strength: Insulin Gargine 100unit/ml injection pen/ Lasix 20mg/ Pharmacy: [facility] Call back #: [phone] Last office visit at this office: Last visit with JESSEE GREGG in FAMILY PRACTICE was on: 01/30/2021 in [facility] Future appointment scheduled: Future Appointments Date Time Provider Department Center 07/31/2021 1:20 PM Jessee Gregg MD [facility] ENTRY documented in this encounter Plan of Treatment Not on file documented as of this encounter Visit Diagnoses Diagnosis Type 2 diabetes mellitus with diabetic nephropathy, with long-term current use of insulin ([facility]) Essential hypertension Unspecified essential hypertension documented in this encounter Additional Health Concerns Assessment Noted Time PHQ-9 Depression Total Score: 0 07/31/19 21 1:55 PM CDT documented as of this encounter Care Teams Uptwist Spinner Relationship Specialty [place] [address] [place] [address] PCP - General FAMILY PRACTICE 08/17/19 06/15/21 documented as of this encounter
--- OUTSIDE RECORDS SUMMARY | 2024-02-03 11:15 | XMS_ITS | Encounter Summary ---
Author Organization [facility] Address [address] [place] [address]. [place] [address] [place] [address] Care Team Providers Care Energy Conservation Engineer Name Role Phone Jessee Gregg MD Primary Care Provider [phone] [phone] Reason for Visit * Reason Onset Date Comments Refill Request 04/18/2021 Encounter Details Date Type Department Care Team (Late st Contact Info) Description 04/18/2021 Telephone [facility] Medical Group Family & Internal Medicine [facility] [address] [place] [phone] Jessee Gregg MD [address] [place] [address] Refill Request Social History Tobacco Use Types [...] Progress Notes * Shelly España RN - 04/18/2021 10:36 AM CST Called pt and asked her if she needs these test strips due to her having a CGM Dexcom. She states yes, bc when she feels like the Dexcom is not accurate, she does a finger stick to check her sugar. IZER * Alexandra Godwin - 04/18/2021 10:25 AM CST Medication and strength:Accu-Check Corrie Plus test stript/90 day supply Pharmacy: [facility] Call back #: [phone] Last office visit at this office: Last visit with JESSEE GREGG in FAMILY PRACTICE was on: 01/30/2021 in [facility] Future appointment scheduled: Future Appointments Date Time Provider Department Center 07/31/2021 1:20 PM Jessee Gregg MD [facility] IZER documented in this encounter Plan of Treatment Not on file documented as of this encounter Visit Diagnoses Diagnosis Type 2 diabetes mellitus with diabetic nephropathy, with long-term current use of insulin ([facility])- Primary documented in this encounter Additional Health Concerns Assessment Noted Time PHQ-9 Depression Total Score: 0 07/31/19 21 1:55 PM CDT documented as of this encounter Care Teams Energy Conservation Engineer Relationship Specialty [place] [address] [place] [address] PCP - General FAMILY PRACTICE 08/17/19 06/15/21 documented as of this encounter
--- OUTSIDE RECORDS SUMMARY | 2024-02-03 11:16 | XMS_ITS | Encounter Summary ---
Author Organization [facility] Address [address] [place] [address]. [place] [address] [place] [address] Care Team Providers Care Outside Food Server Name Role Phone Jessee Gregg MD Primary Care Provider [phone] [phone] Reason for Visit * Reason Onset Date Comments Medication 12/30/2020 Encounter Details Date Type Department Care Team (Late st Contact Info) Description 12/30/2020 Telephone [facility] [address] [place] [address] Jessee Gregg MD [address] [facility] [address] [place] [address] Medication Social History Tobacco Use Types Packs/Day Years [...] Progress Notes * Shelly España RN - 12/30/2020 9:04 AM CST Called pt and informed her that we have her taking 10meq take 1 tab by mouth daily. She states all her old pill bottles state 2 tabs by mouth daily. Informed her we would send in new rx to [facility]. Rx sent and pt aware. SNAPPER * Kalpana Cabrera LPN - 12/30/2020 8:42 AM CST Pt most recent RX for klor-con 10 10 MEQ 1 tab daily she was taking 20 MEQ daily She was not made aware of change and need this confirmed cb [phone] SNAPPER documented in this encounter Plan of Treatment Not on file documented as of this encounter Visit Diagnoses Diagnosis Hypokalemia Hypopotassemia documented in this encounter Additional Health Concerns Assessment Noted Time PHQ-9 Depression Total Score: 0 07/31/19 21 1:55 PM CDT documented as of this encounter Care Teams Outside Food Server Relationship Specialty [place] [address] [place] [address] PCP - General FAMILY PRACTICE 08/17/19 06/15/21 documented as of this encounter
--- OUTSIDE RECORDS SUMMARY | 2024-02-03 11:16 | XMS_ITS | Encounter Summary ---
Author Organization [facility] Address [address] [place] [address]. [place], [place] [address] [place] [address] Care Team Providers Care Freight Delivery Driver Name Role Phone Jessee Gregg MD Primary Care Provider [phone] [phone] Encounter Details Date Type Department Care Team (Latest Contact Info) Description 10/31/2020 Travel Social History Tobacco Use Types Packs/Day Years [...] file Not on file Not on file COVID-19 Exposure Response Date Recorded In the last month, have you been in contact with someone who was confirmed or suspected to have Coronavirus / COVID-19? No / Unsure 10/31/2020 12:52 PM CDT documented as of this encounter Plan of Treatment Not on file documented as of this encounter Visit Diagnoses Not on filedocumented in this encounter Additional Health Concerns Assessment Noted Time PHQ-9 Depression Total Score: 0 07/31/19 21 1:55 PM CDT documented as of this encounter Care Teams Freight Delivery Driver Relationship Specialty [place] [address] [place] [address] PCP - General FAMILY PRACTICE 08/17/19 06/15/21 documented as of this encounter
--- OUTSIDE RECORDS SUMMARY | 2024-02-03 11:16 | XMS_ITS | Encounter Summary ---
Author Organization [facility] Address [address] [place] [address]. [place] [address] [place] [address] Care Team Providers Care Grave Digger Name Role Phone Jessee Gregg MD Primary Care Provider [phone] [phone] Reason for Visit * Reason Onset Date Comments Refill Request 11/21/2020 Encounter Details Date Type Department Care Team (Late st Contact Info) Description 11/21/2020 Telephone [facility] Family & Internal Medicine [facility] [id number] [place] [phone] Jessee Gregg MD [address] [place] [address] Refill Request Social History Tobacco Use Types [...] have Coronavirus / COVID-19? No / Unsure 11/11/2020 8:53 AM CDT documented as of this encounter Progress Notes * Shelly España RN - 11/21/2020 4:[address] Gregg, pt has not gotten refill of this since April 2020. Ok per him to refill with directions of every 6 hours as needed #20. Rx called into pharmacy and pt aware and v/u. * Shelly España RN - 11/21/2020 11:24 AM CDT Ok to refill? And how often can she take this? Thanks! * Alexandra Godwin - 11/21/2020 9:58 AM CDT Medication and strength: Lorazepam 0.5mg/she wanting to know how often she can take this Pharmacy: [facility] Call back #:[phone] Last office visit at this office: Last visit with JESSEE GREGG in FAMILY PRACTICE was on: 10/31/2020 in [facility] Future appointment scheduled: Future Appointments Date Time Provider Department Center 01/30/2021 2:00 PM Jessee Gregg MD [facility] documented in this encounter Plan of Treatment Not on file documented as of this encounter Visit Diagnoses Diagnosis Panic attack Panic disorder without agoraphobia documented in this encounter Additional Health Concerns Assessment Noted Time PHQ-9 Depression Total Score: 0 07/31/19 21 1:55 PM CDT documented as of this encounter Care Teams Grave Digger Relationship Specialty [place] [address] [place] [address] PCP - General FAMILY PRACTICE 08/17/19 06/15/21 documented as of this encounter
--- OUTSIDE RECORDS SUMMARY | 2024-02-03 11:16 | XMS_ITS | Encounter Summary ---
Author Organization [facility] Address [address] [place] [address]. [place] [address] [place] [address] Care Team Providers Care Stripe Marker Name Role Phone Jessee Gregg MD Primary Care Provider +02-20 [phone] Reason for Visit * Reason Onset Date Comments Referral 11/05/2020 Encounter Details Date Type Department Care Team (Late st Contact Info) Description 11/05/[address] [facility] [address] [place] [address] Jessee Gregg MD [address] [facility] [address] [place] [address] Referral Social History Tobacco Use Types Packs/Day Years [...] PM CDT documented as of this encounter Progress Notes * Shelly España RN - 11/05/2020 1:11 PM CDT Message also sent to referral dept via [employer] halo in regards to this. * Shelly España RN - 11/05/2020 1:09 PM CDT Please advise. Referral placed on 10-31 for this as urgent. * Cristal Ricketts - 11/05/2020 12:[address] Vazquez office called requesting referral to be faxed to their office # [phone] they have not rec'd it for pt yet please advise documented in this encounter Plan of Treatment Not on file documented as of this encounter Visit Diagnoses Not on filedocumented in this encounter Additional Health Concerns Assessment Noted Time PHQ-9 Depression Total Score: 0 07/31/19 1:55 PM CDT documented as of this encounter Care Teams Stripe Marker Relationship Specialty [place] [address] [place] [address] PCP - General FAMILY PRACTICE 08/17/19 06/15/21 documented as of this encounter
--- OUTSIDE RECORDS SUMMARY | 2024-02-03 11:16 | XMS_ITS | Encounter Summary ---
Author Organization [facility] Address [address] [place] [address]. [place] [address] [place] [address] Care Team Providers Care Restaurant Assistant Name Role Phone Jessee Gregg MD Primary Care Provider +02-20 [phone] Reason for Visit * Reason Onset Date Comments Refill Request 11/19/2020 Encounter Details Date Type Department Care Team (Late st Contact Info) Description 11/19/2020 Telephone [facility] [address] [place] [address] Jessee Gregg MD [address] [address] Refill Request Social History Tobacco Use Types [...] Progress Notes * Shelly España RN - 11/19/2020 9:55 AM CDT Rx sent. * Cristal Ricketts - 11/19/2020 9:34 AM CDT Pt called requesting refills on Lantes pens [facility] please advise documented in this encounter Plan of Treatment Not on file documented as of this encounter Visit Diagnoses Diagnosis Type 2 diabetes mellitus with diabetic nephropathy, with long-term current use of insulin ([facility]/HCC)- Primary documented in this encounter Additional Health Concerns Assessment Noted Time PHQ-9 Depression Total Score: 0 07/31/19 21 1:55 PM CDT documented as of this encounter Care Teams Restaurant Assistant Relationship Specialty [place] [address] [place] [address] PCP - General FAMILY PRACTICE 08/17/19 06/15/21 documented as of this encounter
--- OUTSIDE RECORDS SUMMARY | 2024-02-03 11:16 | XMS_ITS | Encounter Summary ---
Author Organization [facility] Address [address] [place] [address]. [place] [address] [place] [address] Care Team Providers Care Reading Coach Name Role Phone Jessee Gregg MD Primary Care Provider +02-20 [phone] Reason for Referral * Consultation (Urgent) - Closed Specialty Diagnoses / Procedures Referred By Contac t Referred To Contact NEPHROLOGY Diagnoses Type 2 diabetes mellitus with hyperglycemia, without long-term current use of insulin ([facility]) Jessee Gregg MD [address] [facility] [address] [place] [address] Phone: tel: fax: Joe Olivier MD [address] [facility] [address] [place] [address] Phone: tel: fax: Referral ID Status Reason Start Date Expiration Date V isits Requested Visits Authorized [id number] Closed Specialty Services 10/31/2020 04/29/2021 1 1 Scheduling Instructions Has appointment scheduled for 11/07/2020 Encounter Details Date Type Department Care Team (Late st Contact Info) Description 10/31/2020 Orders Only [facility] [address] [place] [address] Jessee Gregg MD [address] [facility] [address] [place] [address] Social History Tobacco Use Types Packs/Day Years [...] as of this encounter Plan of Treatment Scheduled Referrals Name Type Priority Associated Diagnoses Orde r Schedule Ambulatory referral to Nephrology ([facility]) Referral Routine Type 2 diabetes mellitus with hyperglycemia, without long-term current use of insulin ([facility]) Ordered: 10/31/2020 documented as of this encounter Visit Diagnoses Diagnosis Type 2 diabetes mellitus with hyperglycemia, without long-term current use of insulin ([facility])- Primary documented in this encounter Additional Health Concerns Assessment Noted Time PHQ-9 Depression Total Score: 0 07/31/19 21 1:55 PM CDT documented as of this encounter Care Teams Reading Coach Relationship Specialty [place] [address] [place] [address] PCP - General FAMILY PRACTICE 08/17/19 06/15/21 documented as of this encounter
--- OUTSIDE RECORDS SUMMARY | 2024-02-03 11:16 | XMS_ITS | Encounter Summary ---
Author Organization [facility] Address [address] [place] [address]. [place] [address] [place] [address] Care Team Providers Care Part Time Receptionist Name Role Phone Jessee Gregg MD Primary Care Provider +02-20 [phone] Reason for Visit * Reason Onset Date Comments Refill Request 12/23/2020 Encounter Details Date Type Department Care Team (Late st Contact Info) Description 12/23/2020 Telephone [facility] [address] [place] [address] Jessee Gregg MD [address] [address] Refill Request Social History Tobacco Use Types [...] Progress Notes * Shelly España RN - 12/23/2020 9:50 AM CST Rx sent. N ANATOMY TEACHER * Cristal Ricketts - 12/23/2020 9:29 AM CST Pt called requesting refill on her Potassium [facility] she is almost out please advise N ANATOMY TEACHER documented in this encounter Plan of Treatment Not on file documented as of this encounter Visit Diagnoses Diagnosis Hypokalemia- Primary Hypopotassemia documented in this encounter Additional Health Concerns Assessment Noted Time PHQ-9 Depression Total Score: 0 07/31/19 21 1:55 PM CDT documented as of this encounter Care Teams Part Time Receptionist Relationship Specialty [place] [address] [place] [address] PCP - General FAMILY PRACTICE 08/17/19 06/15/21 documented as of this encounter
--- OUTSIDE RECORDS SUMMARY | 2024-02-03 11:16 | XMS_ITS | Encounter Summary ---
Author Organization [facility] Address [address] [place] [address]. [place] [address] [place] [address] Care Team Providers Care Encoding Clerk Name Role Phone Jessee Gregg MD Primary Care Provider +02-20 [phone] Reason for Visit * Reason Onset Date Comments Results 11/15/2020 Encounter Details Date Type Department Care Team (Late st Contact Info) Description 11/15/2020 Telephone [facility] Family & Internal Medicine [facility] [address] [place] [address] Jessee Gregg MD [address] [place] [address] Results Social History Tobacco Use Types Packs/Day Years [...] Notes * Shelly España RN - 11/19/2020 9:58 AM CDT Called pt and informed her of CT results. She v/u. States her pain is better and she will call office if it returns. * Shelly España RN - 11/15/2020 9:58 AM CDT Please advise. Thank you! * Alexandra Godwin - 11/15/2020 9:19 AM CDT Pt called she wanting results of her ctscan that was done on 11/11/ Please Advise CB# [phone] documented in this encounter Plan of Treatment Not on file documented as of this encounter Visit Diagnoses Not on filedocumented in this encounter Additional Health Concerns Assessment Noted Time PHQ-9 Depression Total Score: 0 07/31/19 21 1:55 PM CDT documented as of this encounter Care Teams Encoding Clerk Relationship Specialty [place] [address] [place] [address] PCP - General FAMILY PRACTICE 08/17/19 06/15/21 documented as of this encounter
--- OUTSIDE RECORDS SUMMARY | 2024-02-03 11:16 | XMS_ITS | Encounter Summary ---
Author Organization [facility] Address [address] [place] [address]. [place], [place] [address] [place] [address] Care Team Providers Care Steam Heating Installer Name Role Phone Jessee Gregg MD Primary Care Provider +02-20 [phone] Reason for Referral * Imaging (Routine) - Closed Specialty Diagnoses / Procedures Referred By [place] t Referred To Contact RADIOLOGY Diagnoses Generalized abdominal pain Procedures CT ABD+PEL W Jessee Smart MD [address] [place] [address] [place] [address] Phone: tel: fax: Referral ID Status Reason Start Date Expiration Date Visits Re quested Visits Authorized [id number] Closed 10/31/2020 11/30/2021 1 1 Reason for Visit * Imaging (Routine) - Closed Specialty Diagnoses / Procedures Referred By Daniel [email or web address] Referred To Contact RADIOLOGY Diagnoses Generalized abdominal pain Procedures CT ABD+PEL W Jessee Smart MD [address] [place] [address] [place] [address] Phone: tel: fax: Referral ID Status Reason Start Date Expiration Date Visits Re quested Visits Authorized [id number] Closed 10/31/2020 11/30/2021 1 1 Encounter Details Date Type Department Care Team (Latest Contact Info) Description 11/11/2020 8:57 AM CDT - 11/11/2020 11:59 PM [place] [address] [place] [address] Jessee Gregg MD [address] [facility] [address] [place] [address] Discharge Disposition: Home or Self Care (Routine Discharge) Social History Tobacco Use Types Packs/Day Years [...] AM CDT documented as of this encounter Medications at Time of Discharge ANORO ELLIPTA 62.5-25 MCG/INH inhaler Inhale 1 puff into the lungs daily. 0 aspirin EC (ASPIRIN) 81 MG EC tablet Take 81 mg by mouth daily. calcium carbonate-vitamin D 600-400 MG-UNIT tabletIndications:C ongestive heart failure ([facility]) Take 1 tablet by mouth 2 (two) times daily. clarification of script 180 tablet 1 0 insulin lispro, 1 Unit Dial, (HUMALOG KWIKPEN) 100 UNIT/ML injection (PEN)Indications:Di abetes mellitus ([facility]) INJECT SUBCUTANEOUSLY 3 TIMES DAILY PER SLIDING SCALE (UP TO DAILY DOSE OF 35-40 UNITS) 12 pen 1 Insulin Pen Needle (DROPLET PEN NEEDLES) 31G X 8 MM MiscIndications:Xochilt childress ([facility]) TO USE TO INJECT INSULIN QID 1 Container 5 1 SOFTCLIX LANCETS Misc 0 VENTOLIN HFA 108 (90 BASE) MCG/ACT inhaler Inhale 1 puff into the lungs as needed for Wheezing or Shortness of breath. 7 ACCU-CHEK NYDIA PLUS test strip 1 strip by Other route 4 (four) times daily as needed. 0 04/19/19 22 AMLODIPINE 5 MG tabletIndications:E ssential hypertension TAKE 1 TABLET BY MOUTH DAILY 90 tablet 3 1 02/28/19 22 Continuous Blood Gluc Roller Helper (FREESTYLE SOPHIA 14 DAY READER) DeviceIndications:T ype 2 diabetes mellitus with diabetic nephropathy, with long-term current use of insulin ([facility]) Use with Freestyle Sophia Sensor 1 Device 2 0 02/19/19 22 Continuous Blood Gluc Sensor (FREESTYLE SOPHIA 14 DAY SENSOR) MiscIndications:Typ e 2 diabetes mellitus with diabetic nephropathy, with long-term current use of insulin ([facility]) Use with Freestyle Sophia monitor 1 each 2 0 02/19/19 22 furosemide 20 MG tabletIndications:E ssential hypertension Take 1 tablet (20 mg total) by mouth every evening. 90 tablet 1 11/20/19 21 furosemide 40 MG tabletIndications:C ongestive heart failure ([facility]) TAKE 1 TABLET BY MOUTH DAILY IN THE MORNING 90 tablet 1 1 11/20/19 21 insulin glargine 100 UNIT/ML injection (PEN) Inject 16 Units into the skin nightly at bedtime. 11/20/19 21 KLOR-CON 10 10 MEQ Tab CR tablet Take 10 mEq by mouth daily. 0 7 12/24/19 21 levothyroxine 137 MCG tabletIndications:H ypothyroidism, unspecified type Take 1 tablet (137 mcg total) by mouth every morning. 90 tablet 1 11/15/19 21 LORazepam (ATIVAN) 0.5 MG tabletIndications:P anic attack Take 1 tablet (0.5 mg total) by mouth as needed for Anxiety. 10 tablet 1 11/22/19 21 losartan 50 MG tabletIndications:E ssential hypertension Take 1 tablet (50 mg total) by mouth daily. 90 tablet 1 12/11/19 21 lovastatin 20 MG tabletIndications:H yperlipidemia, unspecified hyperlipidemia type Take 1 tablet (20 mg total) by mouth daily. 90 tablet 1 11/15/19 21 metoprolol tartrate 25 MG tabletIndications:E ssential hypertension Take 1 tablet (25 mg total) by mouth 2 (two) times daily. 180 tablet 1 11/15/19 21 OMEPRAZOLE 40 MG capsuleIndications: Esophagitis TAKE 1 CAPSULE BY MOUTH DAILY 90 capsule 1 1 02/18/19 22 documented as of this encounter Plan of Treatment Not on file documented as of this encounter Procedures Procedure Name Priority Date/Time Associated Diagnosis Comments CT ABD+PEL W CON Routine 11/11/2020 11:0 4 AM CDT Generalized abdominal pain CREATININE WHOLE BLOOD Routine 11/11/2020 10:29 AM CDT Generalized abdominal pain documented in this encounter Results * CT ABD+PEL W CON (11/11/2020 11:04 AM CDT) Anatomical Region Laterality Modality Abdomen Computed Tomogra phy 11/11/2020 11:4 9 AM CDT Impressions 11/11/2020 11:53 AM CDT FINDINGS AND IMPRESSION: LOWER CHEST: 1. ??Small right lower lobe 5 x 3 pulmonary nodule and 3 mm pulmonary nodule on image 12, recommend dedicated workup with CT of the chest. ABDOMEN: 1. ??Hepatobiliary: No obvious focal lesions. Postcholecystectomy 2. ??Spleen: No lesions, no splenomegaly. 3. ??Pancreas: No focal lesions. 4. ??Adrenal glands: No focal lesions. 5. ??Kidneys: No focal lesions. No hydronephrosis or nephrolithiasis. 6. ??Retroperitoneal and mesenteric space: The visible lymph nodes do not appear pathologically enlarged. 7. ??Stomach and bowel: Gastric mucosal thickening in part secondary to underdistention nevertheless cannot exclude the presence of gastritis. . 8. ??Aorta: Mild atherosclerotic aorta. PELVIS: 1. ??Appendix: Post appendectomy. 2. ??Colon and rectum: Not obstructed. No acute diverticulitis. 3. ??Genitourinary: Post hysterectomy. No stones or abnormal bladder wall thickening. 4. ??Pelvic space: No free fluid. BONES AND OTHER INCIDENTAL FINDINGS: 1. ??Bones: No significant bony abnormalities. Voice recognition software utilized. Referred By: JESSEE GREGG Interpreted By: Rigoberto Huang, 11/11/2020 11:49 AM Narrative 11/11/2020 11:53 AM CDT IMAGING STUDIES: ?? CT ABD+PEL W CON ? DATE: ??11/11/2020 9:08 AM CLINICAL HISTORY: ??LUQ abdominal pain ?? . COMPARISON STUDIES: No previous available. ?? TECHNIQUE: ??Helical axial images were acquired from the lung bases to the symphysis pubis after the administration of intravenous contrast. ??Sagittal and coronal reconstructions were created. Radiation dose reduction technique was utilized. CONTRAST: 40cc Isovue 370 IV. Procedure Note Rigoberto Huang MD - 11/11/2020 IMAGING STUDIES: CT ABD+PEL W CON DATE: 11/11/2020 9:08 AM CLINICAL HISTORY: LUQ abdominal pain . COMPARISON STUDIES: No previous available. TECHNIQUE: Helical axial images were acquired from the lung bases to thesymphysis pubis after the administration of intravenous contrast.Sagittal and coronal reconstructions were created. Radiation dosereduction technique was utilized. CONTRAST: 40cc Isovue 370 IV. FINDINGS AND IMPRESSION: LOWER CHEST: 1. Small right lower lobe 5 x 3 pulmonary nodule and 3 mm pulmonarynodule on image 12, recommend dedicated workup with CT of the chest. ABDOMEN: 1. Hepatobiliary: No obvious focal lesions. Postcholecystectomy 2. Spleen: No lesions, no splenomegaly. 3. Pancreas: No focal lesions. 4. Adrenal glands: No focal lesions. 5. Kidneys: No focal lesions. No hydronephrosis or nephrolithiasis. 6. Retroperitoneal and mesenteric space: The visible lymph nodes do notappear pathologically enlarged. 7. Stomach and bowel: Gastric mucosal thickening in part secondary tounderdistention nevertheless cannot exclude the presence of gastritis. . 8. Aorta: Mild atherosclerotic aorta. PELVIS: 1. Appendix: Post appendectomy. 2. Colon and rectum: Not obstructed. No acute diverticulitis. 3. Genitourinary: Post hysterectomy. No stones or abnormal bladder wallthickening. 4. Pelvic space: No free fluid. BONES AND OTHER INCIDENTAL FINDINGS: 1. Bones: No significant bony abnormalities. Voice recognition software utilized. Referred By: JESSEE GREGG Interpreted By: Rigoberto Huang, 11/11/2020 11:49 AM Jessee Gregg MD CT Final Resul t * (ABNORMAL) CREATININE WHOLE BLOOD (Radiology only) (11/11/2020 10:29 AM CDT) CREATININE WHOLE BLOOD 1.3(H) 0.6 - 1.2 MG/DL 11/11/2020 8:[address] [facility] 11/11/2020 10:2 9 AM CDT Jessee Gregg MD LABORATORY Final Resul t [facility] [address] [place] [address], documented in this encounter Visit Diagnoses Diagnosis Generalized abdominal pain Abdominal pain, generalized documented in this encounter Administered Medications Inactive Administered Medications - up to 3 most recent administrations Medication Order MAR Action Action Date Dose Rate Site iopamidol (ISOVUE-370) 76 % injection 40 mL 40 mL, Intravenous, IMG once as needed, Contrast, 1 dose, Starting on Wed11/11/20 at 1104, Until Wed11/11/20 at 1032 Given 11/11/2020 10:32 AM CDT 40 mLs Left Arm documented in this encounter Additional Health Concerns Assessment Noted Time PHQ-9 Depression Total Score: 0 07/31/19 21 1:55 PM CDT documented as of this encounter Care Teams Steam Heating Installer Relationship Specialty [place] [address] [place] [address] PCP - General FAMILY PRACTICE 08/17/19 06/15/21 documented as of this encounter
--- OUTSIDE RECORDS SUMMARY | 2024-02-03 11:16 | XMS_ITS | Encounter Summary ---
Author Organization [facility] Address [address] [place] [address]. [place] [address] [place] [address] Care Team Providers Care Irrigator Head Name Role Phone Jessee Gregg MD Primary Care Provider +02-20 [phone] Reason for Visit * Reason Onset Date Comments Orders 02/04/2021 Encounter Details Date Type Department Care Team (Late st Contact Info) Description 02/04/2021 Telephone [facility] Family & Internal Medicine [facility] [address] [place] [address] Jessee Gregg MD [address] [address] Orders Social History Tobacco Use Types Packs/Day Years [...] have Coronavirus / COVID-19? No / Unsure 01/30/2021 1:52 PM AUTOCAD DESIGNER documented as of this encounter Progress Notes * Gabby Dodson RN - 02/19/2021 3:03 PM CSTAddended by: GABBY DODSON on: 02/19/2021 03:03 PM Modules accepted: Orders CAD DESIGNER * Gabby Dodson RN - 02/19/2021 3:01 PM CST Order placed and sent to electronically to [facility]. CAD DESIGNER * Vicky Tapia - 02/11/2021 2:55 PM CST Patient advised the freestyle sophia came from [facility], she did not have any contact info Info found in Media 11/07/19 - [facility], fax #[phone], ph #[phone] CAD DESIGNER * Shelly España RN - 02/11/2021 2:26 PM CST Called pt and she states her insurance quit covering the Freestyle Sophia so she now has the Dexcom monitor and this will not stick to her skin. She stated she called the company and they told her if Dr would right a letter, she would be able to get the Sophia again. Asked pt if she had the contact info. She states she will find this and call office back. CAD DESIGNER * Shelly España RN - 02/04/2021 4:[address] Gregg, pt has Freestyle Sophia Monitor and it will not stick to her skin. Pt needs the Dexcom monitor. Called [employer] [facility] [employer] and spoke to Will. He states he will fax us an order over for this. Gave him all pt's insurance info. States for us to fax order back to them and thenthey will get this started for pt. CAD DESIGNER documented in this encounter Plan of Treatment Not on file documented as of this encounter Visit Diagnoses Diagnosis Type 2 diabetes mellitus with diabetic nephropathy, with long-term current use of insulin ([facility]/HCC)- Primary documented in this encounter Additional Health Concerns Assessment Noted Time PHQ-9 Depression Total Score: 0 07/31/19 1:55 PM CDT documented as of this encounter Care Teams Irrigator Head Relationship Specialty [place] [address] [place] [address] PCP - General FAMILY PRACTICE 08/17/19 06/15/21 documented as of this encounter
--- OUTSIDE RECORDS SUMMARY | 2024-02-03 11:16 | XMS_ITS | Encounter Summary ---
Author Organization [facility] Address [address] [place] [address]. [place], [place] [address] [place] [address] Care Team Providers Care Mold Making Plastics Sheets Supervisor Name Role Phone Jessee Gregg MD Primary Care Provider [phone] [phone] Encounter Details Date Type Department Care Team (Latest Contact Info) Description 11/11/2020 Travel Social History Tobacco Use Types Packs/Day [...] AM CDT documented as of this encounter Plan of Treatment Not on file documented as of this encounter Visit Diagnoses Not on filedocumented in this encounter Additional Health Concerns Assessment Noted Time PHQ-9 Depression Total Score: 0 07/31/19 21 1:55 PM CDT documented as of this encounter Care Teams Mold Making Plastics Sheets Supervisor Relationship Specialty [place] [address] [place] [address] PCP - General FAMILY PRACTICE 08/17/19 06/15/21 documented as of this encounter
--- OUTSIDE RECORDS SUMMARY | 2024-02-03 11:16 | XMS_ITS | Encounter Summary ---
Author Organization [facility] Address [address] [place] [address]. [place], [place] [address] [place] [address] Care Team Providers Care Hook Up Driver Name Role Phone Jessee Gregg MD Primary Care Provider [phone] [phone] Encounter Details Date Type Department Care Team (Latest Contact Info) Description 11/07/2020 Scan HEALTH INFO [facility] Scanned, Documents Social History Tobacco Use Types Packs/Day Years [...] documented as of this encounter Care Teams Hook Up Driver Relationship Specialty [place] [address] [place] [address] PCP - General FAMILY PRACTICE 08/17/19 06/15/21 documented as of this encounter
--- OUTSIDE RECORDS SUMMARY | 2024-02-03 11:16 | XMS_ITS | Encounter Summary ---
Author Organization [facility] Address [address] [place] [address]. [place] [address] [place] [address] Care Team Providers Care Cook Helper Pastry Name Role Phone Jessee Gregg MD Primary Care Provider [phone] [phone] Reason for Visit * Reason Onset Date Comments Refill Request 11/18/2020 Encounter Details Date Type Department Care Team (Late st Contact Info) Description 11/18/2020 Telephone [facility] [address] [place] [address] Jessee Gregg MD [address] [address] Refill Request Social History Tobacco Use Types [...] Notes * Shelly España RN - 11/19/2020 9:57 AM CDT Rx's sent. Called pt with CT results. She v/u. * Alexandra Godwin - 11/18/2020 10:22 AM CDT Pt would like result of her ct scan of the ABD Her CB# [phone] * Alexandra Godwin - 11/18/2020 10:20 AM CDT Medication and strength: Laxis 40mg/Lasix 20mg/90 days Pharmacy: [facility] Call back #:[phone] Last office visit at this office: Last visit with JESSEE GREGG in FAMILY MED/SPORTS MED was on: No match found Future appointment scheduled: Future Appointments Date Time Provider Department Center 01/30/2021 2:00 PM Jessee Gregg MD [id number] [address] documented in this encounter Plan of Treatment Not on file documented as of this encounter Visit Diagnoses Diagnosis Congestive heart failure ([facility]) Congestive heart failure, unspecified Essential hypertension Unspecified essential hypertension documented in this encounter Additional Health Concerns Assessment Noted Time PHQ-9 Depression Total Score: 0 07/31/19 21 1:55 PM CDT documented as of this encounter Care Teams Cook Helper Pastry Relationship Specialty [place] [address] [place] [address] PCP - General FAMILY PRACTICE 08/17/19 06/15/21 documented as of this encounter
--- OUTSIDE RECORDS SUMMARY | 2024-02-03 11:16 | XMS_ITS | Encounter Summary ---
Author Organization [facility] Address [address] [place] [address]. [place], [place] [id number] [place] [address] Care Team Providers Care Iap Displays Analyst Name Role Phone Jessee Gregg MD Primary Care Provider [phone] [phone] Encounter Details Date Type Department Care Team (Latest Contact Info) Description 01/30/2021 Travel Social History Tobacco Use Types Packs/Day [...] COVID-19? No / Unsure 01/30/2021 1:52 PM QUALITY CONTROL CLERK documented as of this encounter Plan of Treatment Not on file documented as of this encounter Visit Diagnoses Not on filedocumented in this encounter Additional Health Concerns Assessment Noted Time PHQ-9 Depression Total Score: 0 07/31/19 21 1:55 PM CDT documented as of this encounter Care Teams Iap Displays Analyst Relationship Specialty [place] [address] [place] [address] PCP - General FAMILY PRACTICE 08/17/19 06/15/21 documented as of this encounter
--- OUTSIDE RECORDS SUMMARY | 2024-02-03 11:16 | XMS_ITS | Encounter Summary ---
Author Organization [facility] Address [address] [place] [address]. [place] [address] [place] [address] Care Team Providers Care Assembler Movement Name Role Phone Diya Kinney MD Primary Care Provider [phone] [phone] Reason for Visit * Reason Comments Follow Up - Diabetes 3 month follow up f or diabetes Encounter Details Date Type Department Care Team (Late Contact Info) Description 01/30/2021 2:00 PM FISHING GAME WARDEN Office Visit [facility] Family & Internal Medicine [facility] [address] [place] [address] Diya Kinney MD [address] [address] Follow Up - Diabetes (3 month follow up for diabetes) Social History Tobacco Use Types Packs/Day Years [...] COVID-19? No / Unsure 01/30/2021 1:52 PM FISHING GAME WARDEN documented as of this encounter Last Filed Vital Signs Vital Sign Reading Time Taken Comments Blood Pressure 108/64 01/30/2021 2:01 PM FISHING GAME WARDEN Pulse 63 01/30/2021 2:01 PM FISHING GAME WARDEN Temperature 36.1 ??C (97 ??F) 01/30/2021 2:01 PM FISHING GAME WARDEN Respiratory Rate 20 01/30/2021 2:01 PM FISHING GAME WARDEN Oxygen Saturation 91% 01/30/2021 2:01 PM FISHING GAME WARDEN Inhaled Oxygen Concentration - - Weight 64.8 kg (142 lb 12.8 oz) 01/30/2021 2:01 PM FISHING GAME WARDEN Height 152.4 cm (5') 01/30/2021 2:01 PM FISHING GAME WARDEN Body Mass Index 27.89 01/30/2021 2:01 PM FISHING GAME WARDEN documented in this encounter Progress Notes * Diya Kinney MD - 01/30/2021 2:00 PM CST Reason for Visit: Follow Up - Diabetes (3 month follow up for diabetes) History of Present Illness: 80yo female for follow up. Diabetes Mellitus. Controlled, A1C today at 7.0. Currently on Lantus (glargine) insulin -Dose: 16U nightly, NovoLog (aspart) insulin -Dose: sliding scale with meals usually 3-5u, No medication side effects. no chest pain and no numbness, tingling or pain in extremities Currently on statin, KEENAN/ARB and ASA. labs today. Does have Dexcom. Denies any recent hypoglycemia. Hyperlipidemia. Doing well. No complaints today. Currently on Mevacor (lovastatin) No side effects.no joint pains, no chest pain, no numbness, tingling or pain in extremities and no headaches. Labs current ROS: Review of Systems Constitutional: Negative for chills and fever. Respiratory: Negative for cough and shortness of breath. Cardiovascular: Negative for chest pain. Medications: Current Outpatient Medications: ??? ACCU-CHEK NYDIA PLUS test strip, 1 strip by Other route 4 (four) times daily as needed. , Disp:, Rfl: ??? AMLODIPINE 5 MG tablet, TAKE 1 TABLET BY MOUTH DAILY, Disp: 90 tablet, Rfl: 3 ??? ANORO ELLIPTA 62.5-25 MCG/INH inhaler, Inhale 1 puff into the lungs daily., Disp: , Rfl: ??? aspirin EC (ASPIRIN) 81 MG EC tablet, Take 81 mg by mouth daily., Disp: , Rfl: ??? calcium carbonate-vitamin D 600-400 MG-UNIT tablet, Take 1 tablet by mouth 2 (two) times daily.clarification of script, Disp: 180 tablet, Rfl: 1 ??? Continuous Blood Gluc Analytical Research Program Manager (FREESTYLE SOPHIA 14 DAY READER) Device, Use with Freestyle LibreSensor, Disp: 1 Device, Rfl: 2 ??? Continuous Blood Gluc Sensor (FREESTYLE SOPHIA 14 DAY SENSOR) Misc, Use with Freestyle Sophia monitor, Disp: 1 each, Rfl: 2 ??? furosemide 20 MG tablet, Take 1 tablet (20 mg total) by mouth every evening., Disp: 90 tablet, Rfl: 1 ??? furosemide 40 MG tablet, TAKE 1 TABLET BY MOUTH DAILY IN THE MORNING, Disp: 90 tablet, Rfl: 1 ??? insulin glargine 100 UNIT/ML injection (PEN), Inject 16 Units into the skin nightly at bedtime., Disp: 5 pen, Rfl: 0 ??? insulin lispro, 1 Unit Dial, (HUMALOG KWIKPEN) 100 UNIT/ML injection (PEN), INJECT SUBCUTANEOUSLY 3 TIMES DAILY PER SLIDING SCALE (UP TO DAILY DOSE OF 35-40 UNITS), Disp: 12 pen, Rfl: 0 ??? Insulin Pen Needle (DROPLET PEN NEEDLES) 31G X 8 MM [facility] TO USE TO INJECT INSULIN QID, Disp: 1Container, Rfl: 5 ??? KLOR-CON 10 10 MEQ Tab CR tablet, Take 2 tablets (20 mEq total) by mouth daily., Disp: 180 tablet, Rfl: 1 ??? LEVOTHYROXINE 137 MCG tablet, TAKE 1 TABLET BY MOUTH IN THE MORNING, Disp: 90 tablet, Rfl: 0 ??? LORazepam (ATIVAN) 0.5 MG tablet, Take 1 tablet (0.5 mg total) by mouth every 6 (six) hours as needed for Anxiety., Disp: 20 tablet, Rfl: 0 ??? LOSARTAN 50 MG tablet, TAKE 1 TABLET BY MOUTH DAILY, Disp: 90 tablet, Rfl: 0 ??? LOVASTATIN 20 MG tablet, TAKE 1 TABLET BY MOUTH DAILY, Disp: 90 tablet, Rfl: 0 ??? METOPROLOL TARTRATE 25 MG tablet, TAKE 1 TABLET BY MOUTH TWICE DAILY, Disp: 180 tablet, Rfl: 0 ??? OMEPRAZOLE 40 MG capsule, TAKE 1 CAPSULE BY MOUTH DAILY, Disp: 90 capsule, Rfl: 1 ??? SOFTCLIX LANCETS Misc, , Disp: , Rfl: ??? VENTOLIN HFA 108 (90 BASE) MCG/ACT inhaler, Inhale 1 puff into the lungs as needed for Wheezingor Shortness of breath. , Disp: , Rfl: No Known Allergies Past Medical History: Diagnosis Date ??? Acute DE (CMS/HCC) 05/12/1992 ??? Chronic renal failure ??? Essential hypertension ??? Hyperlipidemia ??? Hypothyroidism ??? Influenza vaccine administered 2019 ??? Rosacea ??? Tobacco use ??? Type II diabetes mellitus (CMS/HCC) Past Surgical History: Procedure Laterality Date ??? APPENDECTOMY ??? CARDIAC STENTS 03/23/2002 LAD stent ??? SECTION x 2 ??? CHOLECYSTECTOMY ??? COLONOSCOPY 2015 ??? HYSTERECTOMY 02/10/1995 ??? PNEUMOCOCCAL VACCINE 10/2011 Social History Socioeconomic History ??? Marital status: Spouse name: Not on file ??? Number of children: 1 ??? Years of education: Not on file ??? Highest education level: Not on file Occupational History ??? Occupation: Retired Social History Narrative Lives at home by herself Social History Tobacco Use ??? Smoking status: Former Smoker Packs/day: 0.50 Types: Cigarettes Quit date: 2019 Years since quittin.9 ??? Smokeless tobacco: Never Used Vaping Use ??? Vaping Use: Never used Substance Use Topics ??? Alcohol use: No ??? Drug use: No Family History Problem Relation Name Age of Onset ??? Heart Disease Mother ??? Diabetes Mother ??? Stroke Father ??? Heart Disease Sister ??? Coronary artery disease Other premature ??? DE Son 37 ??? Stroke Son (after open heart) ??? Open Heart Son ??? DE Sister ??? Heart Sister form heart problems ??? Heart Sister from heart problems Family Status Relation Name Status ??? Mother at age 82 ??? Father at age 78 ??? Sister at age 70 ??? Other Other Family history is positive for: ??? Son at age 43 ??? Sister at age 55 ??? Sister at age 70 ??? Sister at age 58 Filed Vitals: 01/30/21 1401 BP: 108/64 Pulse: 63 Resp: 20 Temp: 97 ??F (36.1 ??C) TempSrc: Temporal SpO2: 91% Weight: 64.8 kg (142 lb 12.8 oz) Height: 5' (1.524 m) Physical Exam Vitals and nursing note reviewed. Constitutional: Appearance: She is well-developed. HENT: Head: Normocephalic and atraumatic. Cardiovascular: Rate and Rhythm: Normal rate and regular rhythm. Pulmonary: Effort: Pulmonary effort is normal. Breath sounds: Decreased air movement present. Abdominal: General: Bowel sounds are normal. Palpations: Abdomen is soft. Skin: General: Skin is warm and dry. Neurological: Mental Status: She is alert. Diagnoses/Impression: 1. Type 2 diabetes mellitus with diabetic nephropathy, with long-term current use of insulin ([facility]) A1C (BACK OFFICE) COLLECT.CAPILLARY (FNGR,HEEL,EAR) Recommendations and Plan: 1. DM. Type 2. A1C controlled, 7.0. No recent hypogylcemia. No changes today. Monitor. Fu 6 months. 2. HLD. Stable. Continues on statin. No changes. Refill as needed. FU 6 months, Labs then. Orders Placed This Encounter ??? COLLECT.CAPILLARY (FNGR,HEEL,EAR) ??? A1C (BACK OFFICE) DIYA KINNEY Referring Provider: No ref. provider found PCP: DIYA KINNEY MD ING GAME WARDEN documented in this encounter Plan of Treatment Not on file documented as of this encounter Procedures Procedure Name Priority Date/Time Associated Diagnosis Comments COLLECT.CAPILLARY (FNGR,HEEL,EAR) Routine 01/30/2021 2:29 PM FISHING GAME WARDEN Type 2 diabetes mellitus with diabetic nephropathy, with long-term current use of insulin ([facility]) HEMOGLOBIN, GLYCOSYLATED Routine 01/30/2021 Type 2 diabetes mellitus with diabetic nephropathy, with long-term current use of insulin ([facility]) documented in this encounter Results * A1C (BACK OFFICE) (01/30/2021) HGB A1C 7.0 % [id number] T [facility] JESUS [place] 01/30/2021 us Diya Kinney MD LABORATORY Final Resul t -[id number] [place] [address] [place] [address], documented in this encounter Visit Diagnoses Diagnosis Type 2 diabetes mellitus with diabetic nephropathy, with long-term current use of insulin ([facility])- Primary Hyperlipidemia, unspecified hyperlipidemia type documented in this encounter Additional Health Concerns Assessment Noted Time PHQ-9 Depression Total Score: 0 07/31/19 21 1:55 PM CDT documented as of this encounter Care Teams Assembler Movement Relationship Specialty [place] [address] [place] [address] PCP - General FAMILY PRACTICE 08/17/19 06/15/21 documented as of this encounter
--- OUTSIDE RECORDS SUMMARY | 2024-02-03 11:16 | XMS_ITS | Encounter Summary ---
Author Organization [facility] Address [address] [place] [address]. [place] [address] [place] [address] Care Team Providers Care Helper Shear Operator Name Role Phone Jessee Gregg MD Primary Care Provider [phone] [phone] Reason for Visit * Reason Onset Date Comments Refill Request 02/17/2021 Encounter Details Date Type Department Care Team (Late st Contact Info) Description 02/17/[address] [facility] [address] [place] [address] Jessee Gregg MD [address] [address] Refill Request Social History Tobacco Use Types [...] COVID-19? No / Unsure 01/30/2021 1:52 PM CLINICAL TEAM LEAD documented as of this encounter Progress Notes * Sonali Bingham RN - 02/18/2021 12:26 PM CST Rx [facility] ICAL TEAM LEAD * Cristal Ricketts - 02/17/2021 10:38 AM CST Pt called requesting refill on her Omeprazole [facility] please advise ICAL TEAM LEAD documented in this encounter Plan of Treatment Not on file documented as of this encounter Visit Diagnoses Diagnosis Esophagitis Esophagitis, unspecified documented in this encounter Additional Health Concerns Assessment Noted Time PHQ-9 Depression Total Score: 0 07/31/19 21 1:55 PM CDT documented as of this encounter Care Teams Helper Shear Operator Relationship Specialty [place] [address] [place] [address] PCP - General FAMILY PRACTICE 08/17/19 06/15/21 documented as of this encounter
--- OUTSIDE RECORDS SUMMARY | 2024-02-03 11:17 | XMS_ITS | Encounter Summary ---
Author Organization [facility] Address [address] [place] [address]. [place] [address] [place] [address] Care Team Providers Care Railcar Brake Operator Name Role Phone Jessee Gregg MD Primary Care Provider [phone] [phone] Reason for Visit * Reason Onset Date Comments Refill Request 08/12/2020 Encounter Details Date Type Department Care Team (Late st Contact Info) Description 08/12/2020 Telephone [facility] Family & Internal Medicine [facility] [address] [place] [address] Jessee Gregg MD [address] [place] [address] Refill Request Social History Tobacco Use Types [...] have Coronavirus / COVID-19? No / Unsure 07/30/2020 1:47 PM CDT documented as of this encounter Progress Notes * Shelly España RN - 08/12/2020 11:47 AM CDT All rx's sent. * Alexandra Godwin - 08/12/2020 10:02 AM CDT Medication and strength: Omeprazole 40mg/Lasix 40mg/humalog flex pen insurance doesn't cover novolog/90 day suppies Pharmacy: [facility] Call back #:[phone] Last office visit at this office: Last visit with JESSEE GREGG in FAMILY PRACTICE was on: 07/30/2020 in [facility] Future appointment scheduled: Future Appointments Date Time Provider Department Center 10/31/2020 1:00 PM Jessee Gregg MD [facility] documented in this encounter Plan of Treatment Not on file documented as of this encounter Visit Diagnoses Diagnosis Diabetes mellitus ([facility])- Primary Type II or unspecified type diabetes mellitus without mention of complication, not stated as uncontrolled Essential hypertension Unspecified essential hypertension Esophagitis Esophagitis, unspecified documented in this encounter Additional Health Concerns Assessment Noted Time PHQ-9 Depression Total Score: 0 07/31/19 21 1:55 PM CDT documented as of this encounter Care Teams Railcar Brake Operator Relationship Specialty [place] [address] [place] [address] PCP - General FAMILY PRACTICE 08/17/19 06/15/21 documented as of this encounter
--- OUTSIDE RECORDS SUMMARY | 2024-02-03 11:17 | XMS_ITS | Encounter Summary ---
Author Organization [facility] Address [address] [place] [address]. [place], [place] [id number] [place] [address] Care Team Providers Care Customer Engineering Specialist Name Role Phone Jessee Gregg MD Primary Care Provider [phone] Reason for Referral * Consultation (Routine) - Closed Specialty Diagnoses / Procedures Referred By Contac t Referred To Contact NEPHROLOGY Diagnoses Chronic renal insufficiency, stage III (moderate) (CMS/HCC [facility]) Jessee Gregg MD [address] [facility] [address] [place] [address] Phone: tel: fax: Joe Olivier MD [address] [address] Phone: tel: fax: Referral ID Status Reason Start Date Expiration Date V isits Requested Visits Authorized [id number] Closed Specialty Services 11/01/2020 04/30/2021 6 6 Scheduling Instructions Pt's referral has to Dr Olivier. Please get new auth and fax to their office. Thanks! Reason for Visit * Reason Comments Follow Up Routine, 3 mo. check Hypertension Diabetes Referral Discuss referral for Nephrology - Dr. Olivier - follows him q3mos. Encounter Details Date Type Department Care Team ([facility] st Contact Info) Description 07/30/2020 2:00 PM CDT Office Visit [facility] Family & Internal Medicine [facility] [address] [place] [address] Jessee rGegg MD [address] [facility] [address] [place], [place] [address] Follow Up (Routine, 3 mo. check); Hypertension; Diabetes; Referral (Discuss referral for Nephrology - Dr. Olivier - follows him q3mos. ) Social History Tobacco Use Types Packs/Day Years [...] PM CDT documented as of this encounter Last Filed Vital Signs Vital Sign Reading Time Taken Comments Blood Pressure 118/76 07/30/2020 1:55 PM CDT Pulse 65 07/30/2020 1:55 PM CDT Temperature 36.7 ??C (98 ??F) 07/30/2020 1:55 PM CDT Respiratory Rate 16 07/30/2020 1:55 PM CDT Oxygen Saturation 94% 07/30/2020 1:55 PM CDT Inhaled Oxygen Concentration - - Weight 63.6 kg (140 lb 3.2 oz) 07/30/2020 1:55 P M CDT Height 152.4 cm (5') 07/30/2020 1:55 PM CDT Body Mass Index 27.38 07/30/2020 1:55 PM CDT documented in this encounter Progress Notes * Shelly Myers RN - 07/30/2020 2:00 PM CDTAddended by: SHELLY MYERS on: 07/30/2020 03:05 PM Modules accepted: Orders * Jessee Gregg MD - 07/30/2020 2:00 PM CDT Reason for Visit: Follow Up (Routine, 3 mo. check), Hypertension, Diabetes, and Referral (Discuss referral for Nephrology - Dr. Olivier - follows him q3mos. ) History of Present Illness: 79yo female for follow up. Diabetes Mellitus. controlled. Currently on Lantus (glargine) insulin -Dose: 16U nightly, NovoLog (aspart) insulin -Dose: sliding scale with meals usually 6-7u, No medication side effects. no chest pain and no numbness, tingling or pain in extremities Currently on statin, KEENAN/ARB and ASA. labs today. Continues to have occasional lows, sometimes unable to notice. Does check her sugars 4 times daily . ?? HTN. Doing well. controlled. No complaints. Currently on Amlodipine, Metoprolol, Losartan and Lasix. no medication side effects noted. taking medications as instructed, no chest pain on exertion and no swelling of ankles Hyperlipidemia. Doing well. No complaints today. Currently on Mevacor (lovastatin) No side effects.no joint pains and no chest pain. Labs current ROS: Review of Systems Constitutional: [...] tablet, Rfl: 1 ??? Continuous Blood Gluc Liquid Compounder (FREESTYLE SOPHIA 14 DAY READER) Device, Use with Freestyle LibreSensor, Disp: 1 Device, Rfl: 2 ??? Continuous Blood Gluc Sensor (FREESTYLE SOPHIA 14 DAY SENSOR) [facility] [place], Use with Freestyle Sophia monitor, Disp: 1 each, Rfl: 2 ??? furosemide 20 MG tablet, Take 1 tablet (20 mg total) by mouth every evening., Disp: 90 tablet, Rfl: 0 ??? insulin glargine 100 UNIT/ML injection (PEN), Inject 16 Units into the skin nightly at bedtime., Disp: , Rfl: ??? Insulin Pen Needle (DROPLET PEN NEEDLES) 31G X 8 MM [facility] [place], TO USE TO INJECT INSULIN QID, Disp: 1Container, Rfl: 5 ??? KLOR-CON 10 10 MEQ Tab CR tablet, Take 10 mEq by mouth daily., Disp: , Rfl: 0 ??? levothyroxine 137 MCG tablet, Take 1 tablet (137 mcg total) by mouth every morning., Disp: 90 tablet, Rfl: 0 ??? LORazepam (ATIVAN) 0.5 MG tablet, Take 1 tablet (0.5 mg total) by mouth as needed for Anxiety.,Disp: 10 tablet, Rfl: 0 ??? losartan 50 MG tablet, Take 1 tablet (50 mg total) by mouth daily., Disp: 90 tablet, Rfl: 0 ??? lovastatin 20 MG tablet, Take 1 tablet (20 mg total) by mouth daily., Disp: 90 tablet, Rfl: 0 ??? metoprolol tartrate 25 MG tablet, Take 1 tablet (25 mg total) by mouth 2 (two) times daily., Disp: 180 tablet, Rfl: 0 ??? NOVOLOG FLEXPEN 100 UNIT/ML injection (PEN), INJECT SUBCUTANEOUSLY 3 TIMES DAILY PER SLIDING SCALE (UP TO DAILY DOSE OF 35-40 UNITS), Disp: 12 pen, Rfl: 2 ??? omeprazole 20 MG capsule, Take 20 mg by mouth daily., Disp: , Rfl: 0 ??? SOFTCLIX LANCETS [facility] [place], , Disp: , Rfl: ??? VENTOLIN HFA 108 (90 BASE) MCG/ACT inhaler, Inhale 1 puff into the lungs as needed for Wheezingor Shortness of breath. , Disp: , Rfl: No Known Allergies Past Medical History: Diagnosis Date ??? Acute PR (CMS/HCC) 05/12/1992 ??? Chronic renal failure ??? [...] ??? Smoking status: Former Smoker Packs/day: 0.50 Quit date: 2018 Years since quittin.4 ??? Smokeless tobacco: Never Used Substance Use Topics ??? Alcohol use: No ??? Drug use: No Family History Problem Relation Name Age of Onset ??? Heart Disease Mother ??? Diabetes Mother ??? Stroke Father ??? Heart Disease Sister ??? Coronary artery disease Other premature ??? PR Son 37 ??? Stroke Son (after open heart) ??? Open Heart Son ??? PR Sister ??? Heart Sister form heart problems ??? Heart Sister from heart problems Family Status Relation Name Status ??? Mother at age 82 ??? Father at age 78 ??? Sister at age 70 ??? Other Other Family history is positive for: ??? Son at age 43 ??? Sister at age 55 ??? Sister at age 70 ??? Sister at age 58 Filed Vitals: 07/30/20 1355 BP: 118/76 Pulse: 65 Resp: 16 Temp: 98 ??F (36.7 ??C) TempSrc: Temporal SpO2: 94% Weight: 63.6 kg (140 lb 3.2 oz) Height: 5' (1.524 m) Physical Exam Vitals and nursing note reviewed. Constitutional: General: She is not in acute distress. Appearance: She is not toxic-appearing. HENT: Head: Normocephalic and atraumatic. Cardiovascular: Rate and Rhythm: Normal rate and regular rhythm. Pulmonary: Effort: Pulmonary effort is normal. Breath sounds: Normal breath sounds. Skin: General: Skin is warm and dry. Diagnoses/Impression: 1. Type 2 diabetes mellitus with diabetic nephropathy, with long-term current use of insulin ([facility]) A1C (BACK OFFICE) COLLECT.CAPILLARY (FNGR,HEEL,EAR) 2. Essential hypertension 3. Hyperlipidemia, unspecified hyperlipidemia type Recommendations and Plan: 1. DM. Type 2. A1C today up some to 6.4, still to tight controlled. Will decrease meal insulin to 3-4U, Call update 1 month. Fu 3 months. 2. HTN. Stable. No complaints. Tolerating medications. Continues follow up with nephro. Refill medsas needed. Fu 6 months. 3. HLD. Stable. Continues on statin without issues. No complaints. Reviewed labs. Refill meds. Fu 6months. Orders Placed This Encounter ??? COLLECT.CAPILLARY (FNGR,HEEL,EAR) ??? A1C (BACK OFFICE) JESSEE GREGG Referring Provider: No ref. provider found PCP: JESSEE GREGG MD documented in this encounter Plan of Treatment Scheduled Referrals Name Type Priority Associated Diagnoses Orde r Schedule Ambulatory referral to Nephrology (OTHER) Referral Routine Chronic renal insufficiency, stage III (moderate) ([facility]) Ordered: 07/30/2020 documented as of this encounter Procedures Procedure Name Priority Date/Time Associated Diagnosis Comments COLLECT.CAPILLARY (FNGR,HEEL,EAR) Routine 07/30/2020 2:13 PM CDT Type 2 diabetes mellitus with diabetic nephropathy, with long-term current use of insulin ([facility]) HEMOGLOBIN, GLYCOSYLATED Routine 07/30/2020 Type 2 diabetes mellitus with diabetic nephropathy, with long-term current use of insulin ([facility]) documented in this encounter Results * A1C (BACK OFFICE) (07/30/2020) HGB A1C 6.4 % [id number] T [facility] 07/30/2020 us Jessee Gregg MD LABORATORY Final Resul t [id number] [facility] [address] [place] [address], documented in this encounter Visit Diagnoses Diagnosis Type 2 diabetes mellitus with diabetic nephropathy, with long-term current use of insulin ([facility]) Essential hypertension Unspecified essential hypertension Hyperlipidemia, unspecified hyperlipidemia type Chronic renal insufficiency, stage III (moderate) ([facility]) Chronic kidney disease, Stage III (moderate) documented in this encounter Additional Health Concerns Assessment Noted Time PHQ-9 Depression Total Score: 0 07/31/19 21 1:55 PM CDT documented as of this encounter Care Teams Customer Engineering Specialist Relationship Specialty [place] [address] [place] [address] PCP - General FAMILY PRACTICE 08/17/19 06/15/21 documented as of this encounter
--- OUTSIDE RECORDS SUMMARY | 2024-02-03 11:17 | XMS_ITS | Encounter Summary ---
Author Organization [facility] Address [address] [place] [address]. [place], [place] [id number] [place] [address] Care Team Providers Care Golf Club Weigher Name Role Phone Jessee Gregg MD Primary Care Provider [phone] Encounter Details Date Type Department Care Team (Latest Contact Info) Description 07/30/2020 Travel Social History Tobacco Use Types Packs/Day [...] documented as of this encounter Care Teams Golf Club Weigher Relationship Specialty [place] [address] [place] [address] PCP - General FAMILY PRACTICE 08/17/19 06/15/21 documented as of this encounter
--- OUTSIDE RECORDS SUMMARY | 2024-02-03 11:17 | XMS_ITS | Encounter Summary ---
Author Organization [facility] Address [address] [place] [address]. [place] [address] [place] [address] Care Team Providers Care Stallion Keeper Name Role Phone Jessee Gregg MD Primary Care Provider [phone] Reason for Visit * Reason Onset Date Comments Question 09/03/2020 Encounter Details Date Type Department Care Team (Late st Contact Info) Description 09/03/2020 Telephone [facility] Family & Internal Medicine [facility] [address] [place] [address] Jessee Gregg MD [address] [address] Question Social History Tobacco Use Types Packs/Day Years [...] of this encounter Progress Notes * Shelly Myers RN - 09/10/2020 10:35 AM CDT Rx sent to [facility] for 40mg tablet of Furosemide. * Shelly Myers RN - 09/10/2020 10:35 AM CDTAddended by: SHELLY MYERS on: 09/10/2020 10:35 AM Modules accepted: Orders * Jessee Gregg MD - 09/10/2020 8:56 AM CDT It does look like she was taking 40mg in AM and 20mg in PM . * Shelly Myers RN - 09/06/2020 9:39 AM CDT Pt states she is supposed to be taking 60mg of Lasix daily. A 40mg and a 20mg. She states you told her to take this. Just wanted to make sure this is correct. Thank you! * Shelly Myers RN - 09/06/2020 9:35 AM CDT Called pt and informed her of messages below. She v/u. Pt also requesting refill on her Furosemide 40mg tablet. Informed her we do not have her taking 40mg, we have 20mg daily. Pt states she is supposed to be taking a 20mg and a 40mg daily. Requesting the 40mg tablet be sent to [facility]. * Shelly Myers RN - 09/05/2020 5:26 PM CDT Received PET scan results from Matilde Al's office and Dr Gregg reviewed these. Per Dr Gregg, CT from 04-12-20 shows right perihilar nodule, likely benign given two year stability. No further testing is needed. * Shelly Myers RN - 09/05/2020 9:08 AM CDT Called Matilde Cole's office and they are going to fax PET scan from 2019 to [phone]. * Shelly Myers RN - 09/04/2020 12:[address] Gregg reviewed pt's blood sugars and states these are all ok. Continue same meds. * Shelly Myers RN - 09/04/2020 10:43 AM CDT Called pt and informed her that form is filled out and has been mailed to her. She v/u. She is alsoasking about PET CT scan she had done last year and wanted Dr Gregg to look at the results. Informed her I do not see these results in her chart. She states her stand in's office will havethese. Matilde Contreras [phone]. LVM for someone from that office to call us in regards to this. * Alexandra Godwin - 09/04/2020 9:40 AM CDT Pt called wondering why nobody has gotten back with her. Called 6 weeks ago about this she mailed letter 1 month ago Please adivise CB# [phone] * Alexandra Godwin - 09/03/2020 10:07 AM CDT Pt wanting Dr. Hawthorne to review her PET SCAN Its from 2019 Please advise CB# [phone] Month ago she mail you a form the state physical for A foster children that lives in her home. Month ago she mail you a list of her blood sugars she never heard anything about these 2 things documented in this encounter Plan of Treatment Not on file documented as of this encounter Visit Diagnoses Diagnosis Congestive heart failure (CMS/[facility])- Primary Congestive heart failure, unspecified documented in this encounter Additional Health Concerns Assessment Noted Time PHQ-9 Depression Total Score: 0 07/31/19 21 1:55 PM CDT documented as of this encounter Care Teams Stallion Keeper Relationship Specialty [place] [address] [place] [address] PCP - General FAMILY PRACTICE 08/17/19 06/15/21 documented as of this encounter
--- OUTSIDE RECORDS SUMMARY | 2024-02-03 11:17 | XMS_ITS | Encounter Summary ---
Author Organization [facility] Address [address] [place] [address]. [place], [place] [address] [place] [address] Care Team Providers Care Erp Implementation Consultant Name Role Phone Jessee Gregg MD Primary Care Provider [phone] Encounter Details Date Type Department Care Team (Latest Contact Info) Description 08/21/2020 Scan HEALTH INFO SRVCS Scanned, Documents Social [...] documented as of this encounter Care Teams Erp Implementation Consultant Relationship Specialty [place] [address] [place] [address] PCP - General FAMILY PRACTICE 08/17/19 06/15/21 documented as of this encounter
--- OUTSIDE RECORDS SUMMARY | 2024-02-03 11:17 | XMS_ITS | Encounter Summary ---
Author Organization [facility] Address [address] [place] [address]. [place], [place] [address] [place] [address] Care Team Providers Care Gatehouse Attendant Name Role Phone Jessee Gregg MD Primary Care Provider [phone] Encounter Details Date Type Department Care Team (Latest Contact Info) Description 08/20/2020 Scan HEALTH INFO SRVCS Scanned, Documents Social [...] documented as of this encounter Care Teams Gatehouse Attendant Relationship Specialty [place] [address] [place] [address] PCP - General FAMILY PRACTICE 08/17/19 06/15/21 documented as of this encounter
--- OUTSIDE RECORDS SUMMARY | 2024-02-03 11:17 | XMS_ITS | Encounter Summary ---
Author Organization [facility] Address [address] [place] [address]. [place] [address] [place] [address] Care Team Providers Care Gravel Hauler Name Role Phone Diya Gregg MD Primary Care Provider [phone] Reason for Referral * Imaging (Routine) - Closed Specialty Diagnoses / Procedures Referred By Contac t Referred To Contact RADIOLOGY Diagnoses Generalized abdominal pain Procedures CT ABD+PEL W CON Diya Gregg MD [address] [place] [address] Phone: tel: fax: Referral ID Status Reason Start Date Expiration Date Visits Re quested Visits Authorized [id number] Closed 10/31/2020 11/30/2021 1 1 Reason for Visit * Reason Comments Follow Up 3 month follow up fo r DM2 Encounter Details Date Type Department Care Team (Late st Contact Info) Description 10/31/2020 1:00 PM CDT Office Visit [facility] Family & Internal Medicine [facility] [address] [place] [address] Diya Gregg MD [address] [place] [address] Follow Up (3 month follow up for DM2 ) Social History Tobacco Use Types Packs/Day [...] Sign Reading Time Taken Comments Blood Pressure 126/80 10/31/2020 1:01 PM CDT Pulse 63 10/31/2020 1:01 PM CDT Temperature 35.6 ??C (96.1 ??F) 10/31/2020 1:01 PM CD T Respiratory Rate 18 10/31/2020 1:01 PM CDT Oxygen Saturation 91% 10/31/2020 1:01 PM CDT Inhaled Oxygen Concentration - - Weight 62.2 kg (137 lb 3.2 oz) 10/31/2020 1:01 P M CDT Height 152.4 cm (5') 10/31/2020 1:01 PM CDT Body Mass Index 26.8 10/31/2020 1:01 PM CDT documented in this encounter Progress Notes * Diya Gregg MD - 10/31/2020 1:00 PM CDT Reason for Visit: Follow Up (3 month follow up for DM2 ) History of Present Illness: 80yo female for follow up. Diabetes Mellitus. Controlled, A1C today at 6.8. Currently on Lantus (glargine) insulin -Dose: 16U nightly, NovoLog (aspart) insulin -Dose: sliding scale with meals usually 3-5u, No medication side effects. no chest pain and no numbness, tingling or pain in extremities Currently on statin, KEENAN/ARB and ASA. labs today. Does have Dexcom. Fewer lows with previous insulin reduction. Abdominal pain. Non specific. Migratory. Present for sometime, going back year. No without relationto food, eating. No fever/chills. No changes in bowels or bladder. Previous with CT with distal esophagus thickening, thought to be secondary to GERD. Denies night sweats. No weight loss. ROS: Review of Systems Constitutional: Negative for [...] tablet, Rfl: 1 ??? Continuous Blood Gluc Hairspring Truing Inspector (FREESTYLE SOPHIA 14 DAY READER) Device, Use with Freestyle LibreSensor, Disp: 1 Device, Rfl: 2 ??? Continuous Blood Gluc Sensor (FREESTYLE SOPHIA 14 DAY SENSOR) Mis, Use with Freestyle Sophia monitor, Disp: 1 each, Rfl: 2 ??? furosemide 20 MG tablet, Take 1 tablet (20 mg total) by mouth every evening., Disp: 90 tablet, Rfl: 0 ??? furosemide 40 MG tablet, TAKE 1 TABLET BY MOUTH DAILY IN THE MORNING, Disp: 90 tablet, Rfl: 1 ??? insulin glargine 100 UNIT/ML injection (PEN), Inject 16 Units into the skin nightly at bedtime., Disp: , Rfl: ??? insulin lispro, 1 Unit Dial, (HUMALOG KWIKPEN) 100 UNIT/ML injection (PEN), INJECT SUBCUTANEOUSLY 3 TIMES DAILY PER SLIDING SCALE (UP TO DAILY DOSE OF 35-40 UNITS), Disp: 12 pen, Rfl: 0 ??? Insulin Pen Needle (DROPLET PEN NEEDLES) 31G X 8 MM [facility], TO USE TO INJECT [...] daily., Disp: 180 tablet, Rfl: 0 ??? OMEPRAZOLE 40 MG capsule, TAKE 1 CAPSULE BY MOUTH DAILY, Disp: 90 capsule, Rfl: 1 ??? SOFTCLIX LANCETS [facility], , Disp: , Rfl: ??? VENTOLIN HFA 108 (90 BASE) MCG/ACT inhaler, Inhale 1 puff into the lungs as needed for Wheezingor Shortness of breath. , Disp: , Rfl: No Known Allergies Past Medical History: Diagnosis Date ??? Acute MD (CMS/HCC) 05/12/1992 ??? Chronic renal failure ??? Essential hypertension ??? Hyperlipidemia ??? Hypothyroidism ??? Influenza vaccine administered 2019 ??? Rosacea ??? Tobacco use ??? Type II diabetes mellitus (CMS/HCC) Past Surgical History: Procedure Laterality Date ??? APPENDECTOMY ??? CARDIAC STENTS 03/23/2002 LAD stent ??? SECTION x 2 ??? CHOLECYSTECTOMY ??? COLONOSCOPY 2016 ??? HYSTERECTOMY 02/10/1995 ??? PNEUMOCOCCAL VACCINE 10/2011 [...] status: Former Smoker Packs/day: 0.50 Quit date: 2019 Years since quittin.7 ??? Smokeless tobacco: Never Used Substance Use Topics ??? Alcohol use: No ??? Drug use: No Family History Problem Relation Name Age of Onset ??? Heart Disease Mother ??? Diabetes Mother ??? Stroke Father ??? Heart Disease Sister ??? Coronary artery disease Other premature ??? MD Son 37 ??? Stroke Son (after open heart) ??? Open Heart Son ??? MD Sister ??? Heart Sister form heart problems ??? Heart Sister from heart problems Family Status Relation Name Status ??? Mother at age 82 ??? Father at age 78 ??? Sister at age 70 ??? Other Other Family history is positive for: ??? Son at age 43 ??? Sister at age 55 ??? Sister at age 70 ??? Sister at age 58 Filed Vitals: 10/31/20 1301 BP: 126/80 Pulse: 63 Resp: 18 Temp: 96.1 ??F (35.6 ??C) TempSrc: Temporal SpO2: 91% Weight: 62.2 kg (137 lb 3.2 oz) Height: 5' (1.524 m) Physical Exam Vitals and nursing note reviewed. Constitutional: General: She is not in acute distress. Appearance: She is not toxic-appearing. HENT: Head: Normocephalic and atraumatic. Cardiovascular: Rate and Rhythm: Normal rate and regular rhythm. Pulmonary: Effort: Pulmonary effort is normal. Breath sounds: Normal breath sounds. Abdominal: General: Bowel sounds are normal. There is no distension. Palpations: Abdomen is soft. Tenderness: There is no abdominal tenderness. Skin: General: Skin is warm and dry. Results for orders placed or performed in visit on 10/31/20 HEMOGLOBIN, GLYCOSYLATED Result Value Ref Range HGB A1C 6.8 % Diagnoses/Impression: 1. Type 2 diabetes mellitus with diabetic nephropathy, with long-term current use of insulin ([facility]) HEMOGLOBIN, GLYCOSYLATED COLLECT.CAPILLARY (FNGR,HEEL,EAR) Recommendations and Plan: 1. Dm. Type 2. Stable. A1C is up to 6.8. Less lows. Discussed options, continue current regimen. Does have alarm with Dexcom for lows. Fu 3 months. 2. Abdominal pain. Somewhat chronic, intermittent, nonspecific. Sometimes severe in nature. Discussed options, proceed with CT abd/pelvis. Discussed previous cT chest findings. Orders Placed This Encounter ??? COLLECT.CAPILLARY (FNGR,HEEL,EAR) ??? HEMOGLOBIN, GLYCOSYLATED DIYA GREGG Referring Provider: No ref. provider found PCP: DIYA GREGG MD documented in this encounter Plan of Treatment Not on file documented as of this encounter Procedures Procedure Name Priority Date/Time Associated Diagnosis Comments COLLECT.CAPILLARY (FNGR,HEEL,EAR) Routine 10/31/2020 1:33 PM CDT Type 2 diabetes mellitus with diabetic nephropathy, with long-term current use of insulin ([facility]) HEMOGLOBIN, GLYCOSYLATED Routine 10/31/2020 1:13 PM CDT Type 2 diabetes mellitus with diabetic nephropathy, with long-term current use of insulin ([facility]) documented in this encounter Results * CT [...] abnormalities. Voice recognition software utilized. Referred By: DIYA GREGG Interpreted By: Rigoberto Huang, 11/11/2020 11:49 [...] abnormalities. Voice recognition software utilized. Referred By: DIYA GREGG Interpreted By: Rigoberto Huang, 11/11/2020 11:49 AM Diya Gregg MD CT Final Resul t * HEMOGLOBIN, GLYCOSYLATED (10/31/2020 1:13 PM CDT) HGB A1C 6.8 % [id number] T [facility] 10/31/2020 1:13 PM CDT us Diya Gregg MD LABORATORY Final Resul t Performing Organization Address City/[facility] Co de Phone Number [phone] [facility] [address] [place] [address], documented in this encounter Visit Diagnoses Diagnosis Type 2 diabetes mellitus with diabetic nephropathy, with long-term current use of insulin ([facility])- Primary Generalized abdominal pain Abdominal pain, generalized Generalized abdominal pain Abdominal pain, generalized documented in this encounter Additional Health Concerns Assessment Noted Time PHQ-9 Depression Total Score: 0 07/31/19 21 1:55 PM CDT documented as of this encounter Care Teams Gravel Hauler Relationship Specialty [place] [address] [place], [place] [id number] PCP - General FAMILY PRACTICE 08/17/19 06/15/21 documented as of this encounter
--- OUTSIDE RECORDS SUMMARY | 2024-02-03 11:18 | XMS_ITS | Encounter Summary ---
Author Organization [facility] Address [address] [place] [address]. [place], [place] [address] [place] [address] Care Team Providers Care Meat Counter Worker Name Role Phone Jessee Gregg MD Primary Care Provider [phone] [phone] Reason for Visit * Reason Onset Date Comments Question 08/29/2019 Encounter Details Date Type Department Care Team (Late st Contact Info) Description 08/29/2019 Telephone [facility] Family & Internal Medicine [facility] [id number] [phone] Jessee Gregg MD [address] [place] [address] Question Social History Tobacco Use Types Packs/Day Years Used Date Smoking Tobacco: Former Cigarettes Q uit: 2019 Smokeless Tobacco: Never Alcohol Use Standard Drinks/Week Comments No 0 (1 standard drink = 0.6 oz pur e alcohol) Comments Unknown Sex and Gender Information Value Date Recorded [...] have Coronavirus / COVID-19? No / Unsure 08/17/2019 12:41 PM CDT documented as of this encounter Progress Notes * Shelly España RN - 08/30/2019 10:25 AM CDT Form filled out from [facility] and awaiting Dr Gregg's signature tomorrow. Called pt and updated her of this. She v/u. Informed her this would be faxed tomorrow after Dr signs form. * Rhonda Rich PharmD - 08/30/2019 8:53 AM CDT Yes, documentation of frequent testing (4x daily) needs to be in your note * Jessee Gregg MD - 08/30/2019 8:47 AM CDT So I need to document frequent testing in note? * Shelly España RN - 08/30/2019 8:45 AM CDT You ok with us ordering the Sophia CGM for pt? Below are the guidelines that insurance requires to be documented in the chart notes. Thanks! * Rhonda Rich PharmD - 08/30/2019 8:30 AM CDT Per Medicare prescribing guidelines, pt needs to meet the following criteria for CGM: - Pt has diabetes mellitus with documented ICD10 code - Pt has been using a blood glucose monitor (BGM) and performing frequent (4 or more times a day) testing - Pt is insulin-treated with multiple (3 or more) daily injections of insulin - Insulin treatment regimen requires frequent adjustment on the basis of BGM or CGM testing results Pt will need to get it mail order through the [facility] (I believe [facility] is contracted with [employer]) and cannot receive through retail pharmacy unless it's [facility] in [place]. Thanks! * Shelly España RN - 08/29/2019 3:41 PM CDT What guidelines does pt have to meet to qualify for the Freestyle Sophia monitor? * Alexandra Godwin - 08/29/2019 12:44 PM CDT Pt CB# [phone] Pt called wanting to know what going on with her new free style machine . documented in this encounter Plan of Treatment Not on file documented as of this encounter Visit Diagnoses Not on filedocumented in this encounter Care Teams Meat Counter Worker Relationship Specialty [place] [address] [place] [address] PCP - General FAMILY PRACTICE 08/17/19 06/15/21 documented as of this encounter
--- OUTSIDE RECORDS SUMMARY | 2024-02-03 11:18 | XMS_ITS | Encounter Summary ---
Author Organization [facility] Address [address] [place] [address]. [place], [place] [address] [place] [address] Care Team Providers Care Sewer Contractor Name Role Phone Jessee Gregg MD Primary Care Provider [phone] [phone] Encounter Details Date Type Department Care Team (Latest Contact Info) Description 09/07/2019 Scan HEALTH INFO SRVCS Scanned, Documents Social [...] on filedocumented in this encounter Care Teams Sewer Contractor Relationship Specialty [place] [address] [place] [address] PCP - General FAMILY PRACTICE 08/17/19 06/15/21 documented as of this encounter
--- OUTSIDE RECORDS SUMMARY | 2024-02-03 11:18 | XMS_ITS | Encounter Summary ---
Author Organization [facility] Address [address] [place] [address]. [place], [place] [phone] [place] [address] Care Team Providers Care General Internist And Physician Leader Name Role Phone Jessee Gregg MD Primary Care Provider [phone] [phone] Encounter Details Date Type Department Care Team (Latest Contact Info) Description 07/03/2020 Scan HEALTH INFO SRVCS Scanned, Documents Social History Tobacco Use Types Packs/Day Years Used Date Smoking Tobacco: Former Cigarettes Q uit: 2019 Smokeless Tobacco: Never Alcohol Use Standard Drinks/Week Comments No 0 (1 standard drink = 0.6 oz pur e alcohol) PHQ-2 Answer Date Recorded PHQ-2 Score - If the patient scores above 3, please move on to questions 3-9 0 11/21/2019 Comments No Sex and Gender Information Value Date Recorded Sex Assigned at Not on file Legal Sex Female 6:01 PM CDT Gender Identity Not on file Sexual Orientation Not on file Occupation Industry Job Start Date Job End Date Retired Not on file Not on file Not on file documented as of this encounter Plan of Treatment Not on file documented as of this encounter Visit Diagnoses Not on filedocumented in this encounter Care Teams General Internist And Physician Leader Relationship Specialty [place] [address] [place] [address] PCP - General FAMILY PRACTICE 08/17/19 06/15/21 documented as of this encounter
--- OUTSIDE RECORDS SUMMARY | 2024-02-03 11:18 | XMS_ITS | Encounter Summary ---
Author Organization [facility] Address [address] [place] [address]. [place] [address] [place] [address] Care Team Providers Care Harbormaster Name Role Phone Jessee Gregg MD Primary Care Provider [phone] [phone] Encounter Details Date Type Department Care Team (Latest Contact Info) Description 11/21/2019 Travel Social History Tobacco Use Types Packs/Day [...] have Coronavirus / COVID-19? No / Unsure 11/21/2019 12:30 PM CDT documented as of this encounter Plan of Treatment Not on file documented as of this encounter Visit Diagnoses Not on filedocumented in this encounter Care Teams Harbormaster Relationship Specialty [place] [address] [place] [address] PCP - General FAMILY PRACTICE 08/17/19 06/15/21 documented as of this encounter
--- OUTSIDE RECORDS SUMMARY | 2024-02-03 11:18 | XMS_ITS | Encounter Summary ---
Author Organization [facility] Address [address] [place] [address]. [place], [place] [address] [place] [address] Care Team Providers Care Fire Extinguisher Repairer Name Role Phone Raymond Medina MD Primary Care Provider [phone] Jessee Gregg MD Primary Care Provider [phone] [phone] Reason for Visit * Reason Comments Lab (SCAN) Encounter Details Date Type Department Care Team (Latest Contact Info) Description 11/07/2018 Scan HEALTH INFO SRVCS Scanned, Documents Lab (SCAN) Social History Tobacco Use Types Packs/Day Years Used Date Smoking Tobacco: Every Day Cigarettes Smokeless Tobacco: Never Alcohol Use Standard Drinks/Week [...] Procedure Name Priority Date/Time Associated Diagnosis Comments OUTSIDE LAB (SCAN ORDER) 11/07/2018 documented in this encounter Results * OUTSIDE LAB (SCAN) (11/07/2018) 11/07/2018 Narrative 11/07/2018 Ordered by an unspecified provider. us Documents Scanned SCANNING Final Result documented in this encounter Visit Diagnoses Not on filedocumented in this encounter Care Teams Fire Extinguisher Repairer Relationship Specialty Start Date End Date Raymond Medina MD [address] [place] [address] PCP - General FAMILY PRACTICE 06/04/16 08/16/19 [place] [address] [place] [address] PCP - General FAMILY PRACTICE 08/17/19 06/15/21 documented as of this encounter
--- OUTSIDE RECORDS SUMMARY | 2024-02-03 11:18 | XMS_ITS | Encounter Summary ---
Author Organization [facility] Address [address] [place] [address]. [place] [address] [place] [address] Care Team Providers Care Bus Boy Name Role Phone Diya Gregg MD Primary Care Provider [phone] Reason for Visit * Reason Comments Follow Up Routine follow up - discuss anxiety and also needing routine lab work. Anxiety wanting to discuss i ncreased anxiety attacks. Encounter Details Date Type Department Care Team (Late st Contact Info) Description 04/30/2020 4:00 PM CDT Office Visit [facility] [address] [place] [address] Diya Gregg MD [address] [address] Follow Up (Routine follow up - discuss anxiety and also needing routine lab work.); Anxiety (wanting to discuss increased anxiety attacks. ) Social History Tobacco Use Types Packs/Day [...] have Coronavirus / COVID-19? No / Unsure 04/30/2020 3:12 PM CDT documented as of this encounter Last Filed Vital Signs Vital Sign Reading Time Taken Comments Blood Pressure 122/78 04/30/2020 3:17 PM CDT Pulse 68 04/30/2020 3:17 PM CDT Temperature 36.6 ??C (97.9 ??F) 04/30/2020 3:17 PM CD T Respiratory Rate 18 04/30/2020 3:17 PM CDT Oxygen Saturation 93% 04/30/2020 3:17 PM CDT Inhaled Oxygen Concentration - - Weight 63 kg (138 lb 12.8 oz) 04/30/2020 3:17 PM CDT Height 152.4 cm (5') 04/30/2020 3:17 PM CDT Body Mass Index 27.11 04/30/2020 3:17 PM CDT documented in this encounter Progress Notes * Diya Gregg MD - 04/30/2020 4:00 PM CDT Reason for Visit: Follow Up (Routine follow up - discuss anxiety and also needing routine lab work.) and Anxiety (wanting to discuss increased anxiety attacks. ) History of Present Illness: 79yo female for follow up. Diabetes Mellitus. controlled. Currently on Lantus (glargine) insulin -Dose: 28U nightly, NovoLog (aspart) insulin -Dose: sliding scale with meals, No medication side effects. no chest pain and no numbness, tingling or pain in extremities Currently on statin, KEENAN/ARB and ASA. labs today. Does report occasional lows, few times weekly. Mostly prior to meals. Able to self correct. Does check her sugars 4 times daily. ?? HTN. Doing well. controlled. No complaints. Currently on Amlodipine, Metoprolol, Losartan and Lasix. no medication side effects noted. taking medications as instructed, no chest pain on exertion and no swelling of ankles Hyperlipidemia. Doing well. No complaints today. Currently on Mevacor (lovastatin) No side effects.no chest pain. Labs today Hypothyroid. controlled Doing well. No complaints. No medication issues. Denies significant fatigue. no numbness, tingling or pain in extremities and no medication side effects noted. No recent medication changes. Anxiety. Reports recent panic attack. Does have previous history, has been few years since last episode. Denies current trigger recently for symptoms. Did take previous lorazepam with relief. Mood doing well today. ROS: Review of Systems Constitutional: Negative for chills and fever. Respiratory: Negative for cough and shortness of breath. Cardiovascular: Negative for chest pain. Medications: Current Outpatient Medications: ??? ACCU-CHEK NYDIA PLUS test strip, 1 strip by Other route 4 (four) times daily as needed. , Disp:, Rfl: ??? amLODIPine 5 MG tablet, Take 1 tablet (5 mg total) by mouth daily., Disp: 90 tablet, Rfl: 0 ??? ANORO ELLIPTA 62.5-25 MCG/INH inhaler, Inhale 1 puff into the lungs daily., Disp: , Rfl: ??? aspirin EC (ASPIRIN) 81 MG EC tablet, Take 81 mg by mouth daily., Disp: , Rfl: ??? calcium carbonate-vitamin D 600-400 MG-UNIT tablet, Take 1 tablet by mouth 2 (two) times daily.clarification of script, Disp: 180 tablet, Rfl: 1 ??? Continuous Blood Gluc Brush Machine Setter (FREESTYLE SOPHIA 14 DAY READER) Device, Use with Freestyle LibreSensor, Disp: 1 Device, Rfl: 2 ??? Continuous Blood Gluc Sensor (FREESTYLE SOPHIA 14 DAY SENSOR) Misc, Use with Freestyle Sophia monitor, Disp: 1 each, Rfl: 2 ??? furosemide 20 MG tablet, Take 1 tablet (20 mg total) by mouth every evening., Disp: 30 tablet, Rfl: 0 ??? insulin glargine (LANTUS SOLOSTAR) 100 UNIT/ML injection (PEN), INJECT SUBCUTANEOUSLY 22 UNITS AT BEDTIME, Disp: 15 mL, Rfl: 2 ??? Insulin Pen Needle (DROPLET PEN NEEDLES) 31G X 8 MM [facility], TO USE TO INJECT INSULIN QID, Disp: 1Container, Rfl: 5 ??? KLOR-CON 10 10 MEQ Tab CR tablet, Take 10 mEq by mouth daily., Disp: , Rfl: 0 ??? levothyroxine 150 MCG tablet, Take 150 mcg by mouth every morning. , Disp: , Rfl: ??? LORazepam (ATIVAN) 0.5 MG tablet, Take 1 tablet (0.5 mg total) by mouth as needed for Anxiety.,Disp: 10 tablet, Rfl: 0 ??? losartan 50 MG tablet, Take 1 tablet (50 mg total) by mouth daily., Disp: 90 tablet, Rfl: 3 ??? lovastatin 20 MG tablet, Take 20 mg by mouth daily., Disp: , Rfl: 4 ??? metoprolol tartrate 25 MG tablet, Take 1 tablet (25 mg total) by mouth 2 (two) times daily., Disp: 180 tablet, Rfl: 1 ??? NOVOLOG FLEXPEN 100 UNIT/ML injection (PEN), INJECT SUBCUTANEOUSLY 3 TIMES DAILY PER SLIDING SCALE (UP TO DAILY DOSE OF 35-40 UNITS), Disp: 12 pen, Rfl: 2 ??? omeprazole 20 MG capsule, Take 20 mg by mouth daily., Disp: , Rfl: 0 ??? SOFTCLIX LANCETS Misc, , Disp: , Rfl: ??? VENTOLIN HFA 108 (90 BASE) MCG/ACT inhaler, as needed. , Disp: , Rfl: No Known Allergies Past Medical History: Diagnosis Date ??? Acute DE (CMS/HCC) 05/12/1992 ??? Chronic renal failure ??? Essential hypertension ??? Hyperlipidemia ??? Hypothyroidism ??? Rosacea ??? Tobacco use ??? Type [...] Packs/day: 0.50 Quit date: 2019 Years since quittin.2 ??? Smokeless tobacco: Never Used Substance Use [...] ??? Sister at age 58 Filed Vitals: 04/30/20 1517 BP: 122/78 Pulse: 68 Resp: 18 Temp: 97.9 ??F (36.6 ??C) TempSrc: Temporal SpO2: 93% Weight: 63 kg (138 lb 12.8 oz) Height: 5' (1.524 m) Physical Exam Vitals signs and nursing note reviewed. Constitutional: General: She is not in acute distress. Appearance: She is not toxic-appearing. HENT: Head: Normocephalic and atraumatic. Cardiovascular: Rate and Rhythm: Normal rate and regular rhythm. Pulmonary: Effort: Pulmonary effort is normal. Breath sounds: Normal breath sounds. Abdominal: Palpations: Abdomen is soft. Skin: General: Skin is warm and dry. Diagnoses/Impression: 1. Essential hypertension COMPREHENSIVE METABOLIC PANEL ALBUMIN URINE RANDOM VENIPUNC ARM DRAW COMPREHENSIVE METABOLIC PANEL LIPID PANEL ALBUMIN URINE RANDOM 2. Type 2 diabetes mellitus with diabetic nephropathy, with long-term current use of insulin ([facility]) HEMOGLOBIN, GLYCOSYLATED LIPID PANEL ALBUMIN URINE RANDOM VENIPUNC ARM DRAW HEMOGLOBIN, GLYCOSYLATED LIPID PANEL ALBUMIN URINE RANDOM 3. Hypothyroidism, unspecified type THYROID STIM HORMONE, TSH 4. Hyperlipidemia, unspecified hyperlipidemia type 5. Panic attack LORazepam (ATIVAN) 0.5 MG tablet Recommendations and Plan: 1. HTN. Stable. Bp controlled. No medication changes.Monitor Labs today. Refill as needed. Fu 3 months. 2. DM. Continues with occasional lows. Will continue decrease lantus to 16U nightly. Monitor. [id number]. 3. HLD. Stable. No complaints. Tolerating medications. No side effects. Refill as needed. Labs today. Fu 3 months. 4. Hypothyroid. Stable. No complaints. Tolerating medications. Refill as needed. Monitor. Fu 3 months. Labs today. 5. Anxiety. Rare panic symptoms. Denies specific trigger. No daily medications. Discussed options, low dose lorazepam as needed. Discussed side effects. Proper use. FU as needed. Orders Placed This Encounter ??? VENIPUNC ARM DRAW ??? HEMOGLOBIN, GLYCOSYLATED ??? COMPREHENSIVE METABOLIC PANEL ??? LIPID PANEL ??? ALBUMIN URINE RANDOM ??? HEMOGLOBIN, GLYCOSYLATED ??? COMPREHENSIVE METABOLIC PANEL ??? LIPID PANEL ??? ALBUMIN URINE RANDOM ??? THYROID STIM HORMONE, TSH ??? LORazepam (ATIVAN) 0.5 MG tablet DIYA GREGG Referring Provider: No ref. provider found PCP: DIYA GREGG MD * Diya Gregg MD - 04/30/2020 4:00 PM CDT A1C was low. We did decrease lantus yesterday, can possibly further decreased by 2U if sugars stillrunning low in a week. TSH was a little low. We need to back off on medication to next lowest dose and recheck TSH 6 weeks. * Shelly España RN - 04/30/2020 4:00 PM CDT LVM for pt to call office. * Shelly España RN - 04/30/2020 4:00 PM CDT Called pt and informed her of lab results. She v/u. Instructed her to keep log of her blood sugars and call office in a week with results. Instructed pt to decrease her Levothyroxine dose to 137mcg daily and recheck TSH in 6 weeks. She v/u. Rx sent to [facility] in [place] and lab order placed. Pt also requestin refill on her Furosemide #90 to [facility]. Rx sent. documented in this encounter Plan of Treatment Not on file documented as of this encounter Procedures Procedure Name Priority Date/Time Associated Diagnosis Comments HEMOGLOBIN, GLYCOSYLATED Routine 04/30/2020 4:15 PM CDT Type 2 diabetes mellitus with diabetic nephropathy, with long-term current use of insulin ([facility]) ALBUMIN URINE RANDOM W/CREATININE Routine 04/30/2020 4:15 PM CDT Essential hypertension Type 2 diabetes mellitus with diabetic nephropathy, with long-term current use of insulin ([facility]) COMPREHENSIVE METABOLIC PANEL Routine 04/30/2020 4:15 PM CDT Essential hypertension LIPID PANEL Routine 04/30/2020 4:15 PM CDT Essential hypertension Type 2 diabetes mellitus with diabetic nephropathy, with long-term current use of insulin ([facility]) THYROID STIM HORMONE TSH Routine 04/30/2020 4:15 PM CDT Hypothyroidism, unspecified type VENIPUNC ARM DRAW Routine 04/30/2020 3:4 7 PM CDT Essential hypertension Type 2 diabetes mellitus with diabetic nephropathy, with long-term current use of insulin ([facility]) documented in this encounter Results * (ABNORMAL) THYROID STIM HORMONE, TSH (04/30/2020 4:15 PM CDT) TSH 0.34(L) 0.40 - 4.50 mIU/L [facility] 04/30/2020 4:15 PM CDT 05/01/2020 5:12 AM CDT us Diya Gregg MD LABORATORY Final Resul t [facility] [address] [facility] [place] [address] * (ABNORMAL) ALBUMIN URINE RANDOM (04/30/2020 4:15 PM CDT) Pathologist [facility] CREATININE RANDOM URINE 36 20 - 275 mg/dL [facility] MICROALBUMIN (U) 2.0 See Note: mg/dL [facility] Comment: Reference Range: Reference Range Not established MICROALB/CREAT 56(H) <30 mcg/mg creat [facility] Comment: The ADA defines abnormalities in albumin excretion as follows: Category ? Result (mcg/mg creatinine) Normal ?<30 Microalbuminuria ? 30-299 Clinical albuminuria ?? > OR = 300 The ADA recommends that at least two of three specimens collected within a 3-6 month period be abnormal before considering a patient to be within a diagnostic category. URINE SPECIMEN / Unknown 04/30/2020 4:15 PM CDT 05/01/2020 5:12 AM CDT us Diya Gregg MD URINE ORDERABLES Final Resu lt [facility] [address] [facility] [place] [address] * LIPID PANEL (04/30/2020 4:15 PM CDT) Pathologist [facility] CHOLESTEROL 159 <200 mg/dL [facility] [...] factors. LDL-C is now calculated using the Nathan calculation, which is a validated novel method providing better accuracy than the Friedewald equation in the estimation of LDL-C. Jamil SS et al. PAUL. 2013;310(19): 6222-0594 (http://education.[employer].OANDA/faq/TMS531) CHOL/HDL RATIO 3.0 <5.0 (calc) [facility] NON HDL CHOLESTEROL 106 <130 mg/dL (calc) [facility] Comment: For patients with diabetes plus 1 major ASCVD risk factor, treating to a non-HDL-C goal of <100 mg/dL (LDL-C of <70 mg/dL) is considered a therapeutic option. 04/30/2020 4:15 PM CDT 05/01/2020 5:12 AM CDT us Diya Gregg MD LABORATORY Final Resul t [facility] [address] [place] [address] * (ABNORMAL) COMPREHENSIVE METABOLIC PANEL (04/30/2020 4:15 PM CDT) Pathologist [facility] GLUCOSE 94 65 - 99 mg/dL [facility] Comment: ? Fasting reference interval BUN 47(H) 7 - 25 mg/dL [facility] CREATININE S/P/B 1.24(H) 0.60 - 0.93 mg/dL [facility] Comment: For patients >49 years of age, the reference limit for Creatinine is approximately 13% higher for people identified as -Haitian. EGFR NON-AFR. AMER. 42(L) > OR = 60 mL/min/1. 73m2 [facility] EGFR AFR. AMER. 48(L) > OR = 60 mL/min/1. 73m2 [facility] BUN CREATININE RATIO 38(H) 6 - 22 (calc) [facility] SODIUM S/P/B 145 135 - 146 mmol/L [facility] POTASSIUM S/P/B 4.2 3.5 - 5.3 mmol/L [facility] CHLORIDE S/P/B 106 98 - 110 mmol/L [facility] CO2 26 20 - 32 mmol/L [facility] CALCIUM S/P/B 10.2 8.6 - 10.4 mg/dL [facility] TOTAL PROTEIN S/P/B 7.4 6.1 - 8.1 g/dL [facility] ALBUMIN S/P/B 4.5 3.6 - 5.1 g/dL [facility] GLOBULIN 2.9 1.9 - 3.7 g/dL (calc) [facility] ALBUMIN/GLOBULIN RATIO 1.6 1.0 - 2.5 (calc) [facility] BILIRUBIN TOTAL S/P/B 0.3 0.2 - 1.2 mg/dL [facility] ALKALINE PHOSPHATASE S/P/B 84 37 - 153 U/L [facility] AST 24 10 - 35 U/L [facility] ALT 30(H) 6 - 29 U/L [facility] 04/30/2020 4:15 PM CDT 05/01/2020 5:12 AM CDT us Diya Gregg MD LABORATORY Final Resul t [facility] [address] [address] [address] * (ABNORMAL) HEMOGLOBIN, GLYCOSYLATED (04/30/2020 4:15 PM CDT) HGB A1C 5.7(H) <5.7 % of total Hgb [facility] Comment: For someone without known diabetes, a hemoglobin A1c value between 5.7% and 6.4% is consistent with prediabetes and should be confirmed with a follow-up test. For someone with known diabetes, a value <7% indicates that their diabetes is well controlled. A1c targets should be individualized based on duration of diabetes, age, comorbid conditions, and other considerations. This assay result is consistent with an increased risk of diabetes. Currently, no consensus exists regarding use of hemoglobin A1c for diagnosis of diabetes for children. 04/30/2020 4:15 PM CDT 05/01/2020 5:12 AM CDT us Diya Gregg MD LABORATORY Final Resul t [facility] [address] [place] [address] documented in this encounter Visit Diagnoses Diagnosis Essential hypertension- Primary Unspecified essential hypertension Type 2 diabetes mellitus with diabetic nephropathy, with long-term current use of insulin ([facility]) Hypothyroidism, unspecified type Hyperlipidemia, unspecified hyperlipidemia type Panic attack Panic disorder without agoraphobia documented in this encounter Care Teams Bus Boy Relationship Specialty [place] [address] [place] [address] PCP - General FAMILY PRACTICE 08/17/19 06/15/21 documented as of this encounter
--- OUTSIDE RECORDS SUMMARY | 2024-02-03 11:18 | XMS_ITS | Encounter Summary ---
Author Organization [facility] Address [address] [place] [address]. [place], [place] [address] [place] [address] Care Team Providers Care Machine Technician Name Role Phone Jessee Gregg MD Primary Care Provider [phone] [phone] Encounter Details Date Type Department Care Team (Latest Contact Info) Description 05/28/2020 Scan HEALTH INFO SRVCS Scanned, Documents Social [...] on filedocumented in this encounter Care Teams Machine Technician Relationship Specialty [place] [address] [place] [address] PCP - General FAMILY PRACTICE 08/17/19 06/15/21 documented as of this encounter
--- OUTSIDE RECORDS SUMMARY | 2024-02-03 11:18 | XMS_ITS | Encounter Summary ---
Author Organization [facility] Address [address] [place] [address]. [place] [address] [place] [address] Care Team Providers Care Human Resource Analyst Name Role Phone Jessee Aguilar MD Primary Care Provider [phone] [phone] Reason for Visit * Reason Onset Date Comments Lab Results 05/01/2020 Encounter Details Date Type Department Care Team (Late st Contact Info) Description 05/01/2020 Telephone [address] [place] [address] Jessee Aguilar MD [address] [place] [address] Lab Results Social History Tobacco Use Types Packs/Day [...] as of this encounter Progress Notes * Kalpana Cabrera LPN - 05/01/2020 2:41 PM CDT Pt return call about lab results Per DR aguilar read message from result notes under lab V/U Spoke to RN for ailyn to explain medication changes on levothyroxine Pt informed no further question she will monitor blood sugars and report in a week documented in this encounter Plan of Treatment Not on file documented as of this encounter Visit Diagnoses Not on filedocumented in this encounter Care Teams Human Resource Analyst Relationship Specialty [place] [address] [place] [address] PCP - General FAMILY PRACTICE 08/17/19 06/15/21 documented as of this encounter
--- OUTSIDE RECORDS SUMMARY | 2024-02-03 11:18 | XMS_ITS | Encounter Summary ---
Author Organization [facility] Address [address] [place] [address]. [place], [place] [address] [place] [address] Care Team Providers Care Pie Maker Name Role Phone Jessee Gregg MD Primary Care Provider +02-20 [phone] Encounter Details Date Type Department Care Team (Latest Contact Info) Description 08/25/2019 Scan HEALTH INFO SRVCS Scanned, Documents Social [...] on filedocumented in this encounter Care Teams Pie Maker Relationship Specialty [place] [address] [place] [address] PCP - General FAMILY PRACTICE 08/17/19 06/15/21 documented as of this encounter
--- OUTSIDE RECORDS SUMMARY | 2024-02-03 11:18 | XMS_ITS | Encounter Summary ---
Author Organization [facility] Address [address] [place] [address]. [place] [address] [place] [address] Care Team Providers Care Aws Consultant Name Role Phone Jessee Gregg MD Primary Care Provider [phone] [phone] Reason for Visit * Reason Onset Date Comments Question 06/04/2020 Encounter Details Date Type Department Care Team (Late st Contact Info) Description 06/04/2020 Telephone [facility] Family & Internal Medicine [facility] [address] [place] [address] Jessee Gregg MD [address] [address] Question Social History Tobacco Use Types Packs/Day [...] Progress Notes * Shelly España RN - 06/04/2020 4:23 PM CDT Will have to try and get medical records from Dr Huizar's office. * Sonali Woodard - 06/04/2020 10:57 AM CDT Nikki called states she had a PET/ CT scan ordered by Dr. Huizar this was done at [facility] in couple years ago. Nikki states Dr. Huizar saw something in her stomach, she then was referred Dr. Corbett. He was upset that she ordered this test. Nikki states she has been having stomach pain under right rib cage then travels to left side. Hurts to walk. Nikki is wondering if this would be anything to do with the findings of that test. Nikki also will be emailing a form to be completed. This is for her children becoming foster parents. As soon as I get this I will put in Dr. Hawthorne's folder. CB # [phone] documented in this encounter Plan of Treatment Not on file documented as of this encounter Visit Diagnoses Not on filedocumented in this encounter Care Teams Aws Consultant Relationship Specialty [place] [address] [place] [address] PCP - General FAMILY PRACTICE 08/17/19 06/15/21 documented as of this encounter
--- OUTSIDE RECORDS SUMMARY | 2024-02-03 11:18 | XMS_ITS | Encounter Summary ---
Author Organization [facility] Address [address] [place] [address]. [place] [address] [place] [address] Care Team Providers Care Die Cast Patternmaker Name Role Phone Jessee Gregg MD Primary Care Provider [phone] [phone] Reason for Visit * Reason Onset Date Comments Question 05/23/2020 Encounter Details Date Type Department Care Team (Late st Contact Info) Description 05/23/2020 Telephone [facility] [address] [place] [address] Jessee Gregg MD [address] [facility] [address] [place] [address] Question Social History Tobacco Use Types Packs/Day [...] Progress Notes * Shelly España RN - 05/29/2020 9:49 AM CDT Order and office notes faxed to [facility] for Dexcom. * Jessee Gregg MD - 05/29/2020 7:49 AM CDT Signed form in packet . * Shelly España RN - 05/24/2020 12:04 PM CDT Pt wants the Dexcom. You seen her on 04-30. Do you want to addend that note with documentation required or do you want to see her again. Thanks! * Shelly España RN - 05/24/2020 12:03 PM CDT Ok, thank you Rhonda!! * Alexandra Godwin - 05/24/2020 11:29 AM CDT pT RETURNED YOUR CALL YES SHE WOULD LIKE THAT THE dEXCOM * Rhonda Rich PharmD - 05/24/2020 11:19 AM CDT Since patient is using insulin injections >3x daily according to her chart, she should qualify for the dexcom * Shelly España RN - 05/24/2020 11:14 AM CDT Received forms from [employer] to order Dexcom [address] Gregg, check with pt tosee if she really wants this. Her last A1C was 5.7. Rhonda, do you think pt would qualify for this with A1C that low? Thank you!! * Shelly España RN - 05/23/2020 4:44 PM CDT Evonne returned my call. Informed her that pt's A1C was 5.7 so wasn't sure if she would qualify for the Dexcom monitor. She states she is not sure about this and will have someone reach out to our office in regards to this. * Shelly España RN - 05/23/2020 9:48 AM CDT LVM with Evonne at [employer] to see what they are needing on pt * Cristal Ricketts - 05/23/2020 8:27 AM CDT [facility] in regards to documents they requested for patient they still have not rec'd them yet c/b # [phone] documented in this encounter Plan of Treatment Not on file documented as of this encounter Visit Diagnoses Not on filedocumented in this encounter Care Teams Die Cast Patternmaker Relationship Specialty [place] [address] [place] [address] PCP - General FAMILY PRACTICE 08/17/19 06/15/21 documented as of this encounter
--- OUTSIDE RECORDS SUMMARY | 2024-02-03 11:18 | XMS_ITS | Encounter Summary ---
Author Organization [facility] Address [address] [place] [address]. [place], [place] [address] [place] [address] Care Team Providers Care Senior Landscape Architect Name Role Phone Jessee Gregg MD Primary Care Provider [phone] Reason for Visit * Reason Comments CT (SCAN) Encounter Details Date Type Department Care Team (Latest Contact Info) Description 04/12/2020 Scan HEALTH INFO SRVCS Scanned, Documents CT (SCAN) Social History Tobacco Use Types Packs/Day [...] Name Priority Date/Time Associated Diagnosis Comments CT GENERIC 04/12/2020 CT GENERIC 04/12/2020 documented in this encounter Results * CT GENERIC (04/12/2020) Anatomical Region Laterality Modality Other 04/12/2020 Narrative 04/12/2020 Ordered by an unspecified provider. us Documents Scanned SCANNING Final Result * CT GENERIC (04/12/2020) Anatomical Region Laterality Modality Other 04/12/2020 Narrative 04/12/2020 Ordered by an unspecified provider. us Documents Scanned SCANNING Final Result documented in this encounter Visit Diagnoses Not on filedocumented in this encounter Care Teams Senior Landscape Architect Relationship Specialty [place] [address] [place] [address] PCP - General FAMILY PRACTICE 08/17/19 06/15/21 documented as of this encounter
--- OUTSIDE RECORDS SUMMARY | 2024-02-03 11:18 | XMS_ITS | Encounter Summary ---
Author Organization [facility] Address [address] [place] [address]. [place], [place] [address] [place] [address] Care Team Providers Care Mold Hoister Name Role Phone Diya Gregg MD Primary Care Provider [phone] Reason for Referral * Consultation (Routine) - Closed Specialty Diagnoses / Procedures Referred By Contac t Referred To Contact SLEEP & RESPIRATORY CARE Diagnoses Chronic obstructive pulmonary disease, unspecified COPD type ([facility]) Diya Gregg MD [address] [facility] [address] [place] [address] Phone: tel: fax: [facility] [address] [address] Phone: tel: fax: Referral ID Status Reason Start Date Expiration Date V isits Requested Visits Authorized [id number] Closed Specialty Services 03/14/2020 04/14/2021 1 1 GER STORAGE Reason for Visit * Reason Comments Follow Up Med Refill Medication Request new insurance-insuli n problem Referral Request pulm- Dr. nury feldman Encounter Details Date Type Department Care Team (Late st Contact Info) Description 03/14/2020 2:00 PM MANAGER STORAGE Telemedicine [facility] [address] [address] Diya Gregg MD [address] [facility] [address] [place] [address] Follow Up (Med Refill ); Medication Request (new insurance-insulin problem); Referral Request (pulm- Dr. nury gee) Social History Tobacco Use Types Packs/Day Years Used Date Smoking Tobacco: Former Cigarettes Q uit: 2019 Smokeless Tobacco: Never Tobacco Cessation:Counseling Given: Yes Alcohol Use Standard Drinks/Week Comments No 0 [...] on file documented as of this encounter Last Filed Vital Signs Vital Sign Reading Time Taken Comments Blood Pressure - - Pulse - - Temperature - - Respiratory Rate - - Oxygen Saturation - - Inhaled Oxygen Concentration - - Weight 62.1 kg (137 lb) 03/14/2020 1:46 PM MANAGER STORAGE Height 152.4 cm (5') 03/14/2020 1:46 PM MANAGER STORAGE Body Mass Index 26.76 03/14/2020 1:46 PM MANAGER STORAGE documented in this encounter Progress Notes * Diya Gregg MD - 03/14/2020 2:00 PM CST Reason for Visit: Follow Up (Med Refill ), Medication Request (new insurance-insulin problem), and Referral Request (pulm- Dr. nury gee) History of Present Illness: 79yo female for follow up. Diabetes Mellitus. controlled. Currently on Lantus (glargine) insulin -Dose: 22U nightly, NovoLog (aspart) insulin -Dose: sliding scale with meals, No medication side effects. no chest pain and no numbness, tingling or pain in extremities Currently on statin, KEENAN/ARB and ASA.labs current. Does report occasional lows, few times weekly. Able to self correct. HTN. Doing well. controlled. No complaints. Currently on Amlodipine, Metoprolol, Losartan and Lasix. no medication side effects noted. taking medications as instructed, no chest pain on exertion and no swelling of ankles. Hyperlipidemia. Doing well. No complaints today. Currently on Mevacor (lovastatin) No side effects.no chest pain and no numbness, tingling or pain in extremities. Labs current ROS: Review of Systems Constitutional: [...] tablet, Rfl: 1 ??? Continuous Blood Gluc Gas Systems Worker (FREESTYLE [place] 14 DAY READER) Device, Use with Freestyle LibreSensor, Disp: 1 Device, Rfl: 2 ??? Continuous Blood Gluc Sensor (FREESTYLE [place] 14 DAY SENSOR) Misc, Use with Freestyle Sophia monitor, Disp: 1 each, Rfl: 2 ??? DROPLET PEN NEEDLES 31G X 5 MM Misc, Use to inject Lantus insulin at bedtime., Disp: 1 Container, Rfl: 1 ??? furosemide 20 MG tablet, Take 1 tablet (20 mg total) by mouth every evening., Disp: 30 tablet, Rfl: 0 ??? insulin glargine (LANTUS SOLOSTAR) 100 UNIT/ML injection (PEN), Inject 22 units at bedtime, Disp: 7 pen, Rfl: 0 ??? KLOR-CON 10 10 MEQ Tab CR tablet, Take 10 mEq by mouth daily., Disp: , Rfl: 0 ??? levothyroxine 150 MCG tablet, Take 150 mcg by mouth every morning. , Disp: , Rfl: ??? LORazepam (ATIVAN) 0.5 MG tablet, 0.5 mg as needed. , Disp: , Rfl: ??? losartan 50 MG tablet, Take 1 [...] Past Medical History: Diagnosis Date ??? Acute GA (CMS/HCC) 05/12/1992 ??? Chronic renal failure ??? [...] Packs/day: 0.50 Quit date: 2019 Years since quittin.0 ??? Smokeless tobacco: Never Used Substance Use Topics ??? Alcohol use: No ??? Drug use: No Family History Problem Relation Name Age of Onset ??? Heart Disease Mother ??? Diabetes Mother ??? Stroke Father ??? Heart Disease Sister ??? Coronary artery disease Other premature ??? GA Son 37 ??? Stroke Son (after open heart) ??? Open Heart Son ??? GA Sister ??? Heart Sister form heart problems ??? Heart Sister from heart problems Family Status Relation Name Status ??? Mother at age 82 ??? Father at age 78 ??? Sister at age 70 ??? Other Other Family history is positive for: ??? Son at age 43 ??? Sister at age 55 ??? Sister at age 70 ??? Sister at age 58 Filed Vitals: 03/14/20 1346 Weight: 62.1 kg (137 lb) Height: 5' (1.524 m) Physical Exam Nursing note reviewed. Constitutional: General: She is not in acute distress. Appearance: She is not toxic-appearing. HENT: Head: Normocephalic and atraumatic. Neurological: Mental Status: She is oriented to person, place, and time. Psychiatric: Mood and Affect: Mood normal. Behavior: Behavior normal. Diagnoses/Impression: 1. Type 2 diabetes mellitus with diabetic nephropathy, with long-term current use of insulin ([facility]) HEMOGLOBIN, GLYCOSYLATED 2. Hyperlipidemia, unspecified hyperlipidemia type 3. Essential hypertension furosemide 20 MG tablet 4. Chronic obstructive pulmonary disease, unspecified COPD type ([facility]) Ambulatory referral to Pulmonology (OTHER) Recommendations and Plan: 1. DM. Continues with occasional lows. Continue back off on Lantus, down to 18U nightly. FU 3 months, A1C then. 2. HLD. Stable. Continues on statin. Labs and FU 3 months. 3. HTN. Bps stable. No complaints. Following with nephrology as well. Refill as needed. Fu 6 months. I introduced and identified myself, received verbal consent from the patient to proceed with this video visit and made the patient aware that the same confidentiality and information security engineer practices apply. The patient joined the video visit from Home. I completed the virtual visit from Office. The following clinical staff helped with this visit Nurse: Milli. Total Time Spent in Minutes: 15 Orders Placed This Encounter ??? HEMOGLOBIN, GLYCOSYLATED ??? Ambulatory referral to Pulmonology (OTHER) ??? furosemide 20 MG tablet DIYA GREGG Referring Provider: No ref. provider found PCP: DIYA GREGG MD GER STORAGE documented in this encounter Plan of Treatment Scheduled Referrals Name Type Priority Associated Diagnoses Orde r Schedule Ambulatory referral to Pulmonology (OTHER) Referral Routine Chronic obstructive pulmonary disease, unspecified COPD type ([facility]) Ordered: 03/14/2020 documented as of this encounter Visit Diagnoses Diagnosis Type 2 diabetes mellitus with diabetic nephropathy, with long-term current use of insulin ([facility])- Primary Hyperlipidemia, unspecified hyperlipidemia type Essential hypertension Unspecified essential hypertension Chronic obstructive pulmonary disease, unspecified COPD type ([facility]) documented in this encounter Care Teams Mold Hoister Relationship Specialty [place] [address] [place] [address] PCP - General FAMILY PRACTICE 08/17/19 06/15/21 documented as of this encounter
--- OUTSIDE RECORDS SUMMARY | 2024-02-03 11:18 | XMS_ITS | Encounter Summary ---
Author Organization [facility] Address [address] [place] [address]. [place] [address] [place] [address] Care Team Providers Care Cpr Instructor Name Role Phone Jessee Gregg MD Primary Care Provider +02-20 [phone] Reason for Visit * Reason Onset Date Comments Pre-visit Gap Closure 11/14/2019 Encounter Details Date Type Department Care Team (Late st Contact Info) Description 11/14/2019 Telephone [facility] [address] [place] [address] Jessee Gregg MD [address] [address] Pre-visit Gap Closure Social History Tobacco Use Types Packs/Day Years Used Date Smoking Tobacco: Former Cigarettes Q uit: 2019 Smokeless Tobacco: Never Alcohol Use Standard Drinks/Week Comments No 0 (1 standard drink = 0.6 oz pur e alcohol) PHQ-2 Answer Date Recorded PHQ-2 Score 0 11/14/2019 Comments Unknown Sex and Gender Information Value Date Recorded Sex Assigned at Not on file Legal Sex Female 6:01 PM CDT Gender Identity Not on file Sexual Orientation Not on file Occupation Industry Job Start Date Job End Date Retired Not on file Not on file Not on file documented as of this encounter Progress Notes * Em Lynch MA - 11/14/2019 4:53 PM CDT Contacted patient for pre-visit gap closure. I am calling this patient as a patient advocate for the Virtual [employer] Work Program. My direct extension is [phone]. You can also reach me at: [phone] (GARRICK) OR [phone] (EFRAIN) documented in this encounter Plan of Treatment Not on file documented as of this encounter Visit Diagnoses Not on filedocumented in this encounter Care Teams Cpr Instructor Relationship Specialty [place] [address] [place] [address] PCP - General FAMILY PRACTICE 08/17/19 06/15/21 documented as of this encounter
--- OUTSIDE RECORDS SUMMARY | 2024-02-03 11:18 | XMS_ITS | Encounter Summary ---
Author Organization [facility] Address [address] [place] [address]. [place] [address] [place] [address] Care Team Providers Care Press Operator Heavy Duty Name Role Phone Jessee Gregg MD Primary Care Provider [phone] [phone] Reason for Visit * Reason Onset Date Comments Other 09/07/2019 Encounter Details Date Type Department Care Team (Late st Contact Info) Description 09/07/2019 Telephone [facility] [address] [place] [address] Jessee Gregg MD [address] [facility] [address] [place], [place] [id number] Other Social History Tobacco Use Types Packs/Day Years [...] as of this encounter Progress Notes * Javan Purdy MA - 09/08/2019 4:26 PM CDT Returned pt call. Pt stated she already has the information she needs, she called the [facility] * Javan Purdy MA - 09/08/2019 8:26 AM CDT LVM for pt to return call regarding DME. Please see both task when pt returns call * Javan Purdy MA - 09/08/2019 7:08 AM CDT See other task * Kalpana Cabrera LPN - 09/07/2019 4:18 PM CDT Pt called about free style reader Said she missed call today Wants to know how often the reader wants changed cb [phone] documented in this encounter Plan of Treatment Not on file documented as of this encounter Visit Diagnoses Not on filedocumented in this encounter Care Teams Press Operator Heavy Duty Relationship Specialty [place] [address] [place] [address] PCP - General FAMILY PRACTICE 08/17/19 06/15/21 documented as of this encounter
--- OUTSIDE RECORDS SUMMARY | 2024-02-03 11:18 | XMS_ITS | Encounter Summary ---
Author Organization [facility] Address [address] [place] [address]. [place] [address] [place] [address] Care Team Providers Care Pig Furnace Operator Name Role Phone Jessee Gregg MD Primary Care Provider [phone] [phone] Reason for Visit * Reason Onset Date Comments Orders 11/07/2019 Encounter Details Date Type Department Care Team (Late st Contact Info) Description 11/07/[address] [facility] [address] [place] [address] Jessee Gregg MD [address] [address] Orders Social History Tobacco Use Types Packs/Day [...] as of this encounter Progress Notes * Bailee Bonds RN - 11/15/2019 11:22 AM CDT Spoke with Anh and she is going to fax forms. She is also going to call patient to confirm that she dose want the supplies. * Bailee Bonds RN - 11/15/2019 10:42 AM CDT Attempted to reach Anh. Left a message * Bailee Bonds RN - 11/15/2019 9:22 AM CDT Maria Luz from [facility] said that they received the orders. Sep 18 [facility] medical received a call from the patient and she told them at that time that it was going to be too expensive. I called Nikki and she said that she still wants the prescription filled for the monitor and sensors. She said that she keeps getting different stories from other people. She would like me to process the order. Spoke with Marsha from [facility]. They are going to reprocess the order. We will need to refax theorder. Anh--left a message for her to return my call * Shelly España RN - 11/15/2019 9:16 AM CDT Do you know anything about this? Thank you! * Alexandra Godwin - 11/15/2019 8:46 AM CDT Pt called stating thAT Laurie THEY NEVER RECEIVED ANY PAPERWORK FROM ARE OFFICE THAT THEY SENT PLEASE ADVISE PT. CB# is [phone] * Bailee Bonds RN - 11/07/2019 11:31 AM CDT Faxed. * Michelle Eimly Mccrary - 11/07/2019 10:24 AM CDT Sarah called from [employer]. A prescription order for a Free Style Sophia Machine with Dr Cooley needs to be faxed to [facility] . Tele # [phone]. Thanks documented in this encounter Plan of Treatment Not on file documented as of this encounter Visit Diagnoses Diagnosis Type 2 diabetes mellitus with diabetic nephropathy, with long-term current use of insulin ([facility]) documented in this encounter Care Teams Pig Furnace Operator Relationship Specialty [place] [address] [place] [address] PCP - General FAMILY PRACTICE 08/17/19 06/15/21 documented as of this encounter
--- OUTSIDE RECORDS SUMMARY | 2024-02-03 11:18 | XMS_ITS | Encounter Summary ---
Author Organization [facility] Address [address] [place] [address]. [place], [place] [address] [place] [address] Care Team Providers Care Airbrush Artist Photography Name Role Phone Jessee Gregg MD Primary Care Provider +02-20 [phone] Encounter Details Date Type Department Care Team (Latest Contact Info) Description 09/13/2019 Scan HEALTH INFO SRVCS Scanned, Documents Social [...] on filedocumented in this encounter Care Teams Airbrush Artist Photography Relationship Specialty [place] [address] [place] [address] PCP - General FAMILY PRACTICE 08/17/19 06/15/21 documented as of this encounter
--- OUTSIDE RECORDS SUMMARY | 2024-02-03 11:18 | XMS_ITS | Encounter Summary ---
Author Organization [facility] Address [address] [place] [address]. [place], [place] [address] [place] [address] Care Team Providers Care Application Services Manager Name Role Phone Raymond Medina MD Primary Care Provider [phone] Jessee Gregg MD Primary Care Provider +02-20 [phone] Reason for Visit * Reason Comments Lab (SCAN) Encounter Details Date Type Department Care Team (Latest Contact Info) Description 02/20/2019 Scan HEALTH INFO SRVCS Scanned, Documents Lab [...] Associated Diagnosis Comments OUTSIDE LAB (SCAN ORDER) Routine 02/20/2019 documented in this encounter Results * OUTSIDE LAB (02/20/2019) HGB A1C 6.8 % [facility] 02/20/2019 us Documents Scanned SCANNING Final Result [facility] documented in this encounter Visit Diagnoses Not on filedocumented in this encounter Care Teams Application Services Manager Relationship Specialty Start Date End Date Raymond Medina MD [address] [facility] [place] [address] PCP - General FAMILY PRACTICE 06/04/16 08/16/19 [place] [address] [place] [address] PCP - General FAMILY PRACTICE 08/17/19 06/15/21 documented as of this encounter
--- OUTSIDE RECORDS SUMMARY | 2024-02-03 11:18 | XMS_ITS | Encounter Summary ---
Author Organization [facility] Address [address] [place] [address]. [place] [address] [place] [address] Care Team Providers Care Print Finisher Name Role Phone Jessee Gregg MD Primary Care Provider +02-20 [phone] Reason for Visit * Reason Onset Date Comments Medication 03/06/2020 Encounter Details Date Type Department Care Team (Late st Contact Info) Description 03/06/2020 Telephone [facility] [address] [place] [address] Jessee Gregg MD [address] [address] Medication Social History Tobacco Use Types [...] Progress Notes * Shelly Myers RN - 03/08/2020 11:48 AM CSTAddended by: SHELLY MYERS on: 03/08/2020 11:48 AM Modules accepted: Orders T INSPECTOR * Shelly Myers RN - 03/08/2020 11:48 AM CST All rx's sent. T INSPECTOR * Vicky Tapia - 03/08/2020 11:12 AM CST Patient called back, please send to [facility]. She has appt with Mary[facility] on 03/14/20, insurance changed to [facility] Medicare, effec 02/16/20, registration has been updated. She changed to a video because she's worried about casey weather. T INSPECTOR * Sonali Bingham RN - 03/07/2020 2:53 PM CST Does [facility] sound familiar for the mail order pharmacy? Called and left VM for patient to return call. T INSPECTOR * Cristal Ricketts - 03/07/2020 10:24 AM CST Appt niall'd for 03/14 T INSPECTOR * Shelly Myers RN - 03/06/2020 1:12 PM CST Pt due for apt to see Dr Gregg. Please call her. Thanks! T INSPECTOR * Kalpana Cabrera LPN - 03/06/2020 12:37 PM CST Medication and strength: solostar lantus pen and needles Amlodipiine 5 mg New pharm will not fill the 02/19/20 Pharmacy: pt doesn't know of pharm this is the fax # [phone] Call back #: [phone] Last office visit at this office: Last visit with JESSEE GREGG in FAMILY MED/SPORTS MED was on: No match found Future appointment scheduled: No future appointments. T INSPECTOR documented in this encounter Plan of Treatment Not on file documented as of this encounter Visit Diagnoses Diagnosis Diabetes ([facility]/HCC) Essential hypertension Unspecified essential hypertension documented in this encounter Care Teams Print Finisher Relationship Specialty [place] [address] [place] [address] PCP - General FAMILY PRACTICE 08/17/19 06/15/21 documented as of this encounter
--- OUTSIDE RECORDS SUMMARY | 2024-02-03 11:18 | XMS_ITS | Encounter Summary ---
Author Organization [facility] Address [address] [place] [address]. [place] [address] [place] [address] Care Team Providers Care Jewelry Designer Name Role Phone Jessee Gregg MD Primary Care Provider [phone] [phone] Reason for Visit * Reason Onset Date Comments Medication Problem 10/27/2019 Encounter Details Date Type Department Care Team (Late st Contact Info) Description 10/27/2019 Telephone [facility] [address] [place], [place] [address] Jessee Gregg MD [address] [facility] [address] [place] [address] Medication Problem Social History Tobacco Use Types Packs/Day Years [...] Progress Notes * Shelly España RN - 11/06/2019 3:44 PM CDT Called [facility] in [place] and they state they can not bill her insurance for this. They state this rx will have to be sent to a [employer] company. Called pt and informed her of this. Informed her that she will need to call her insurance co to see what DME will cover this monitor. She v/u. * Alexandra Godwin - 11/03/2019 2:13 PM CDT Pt called back wondering what was going on with her new meter for her blood sugar Please Call [phone] * Alexanrda A Tato - 11/01/2019 3:26 PM CDT Pt CB# [phone] Pt called [facility] is telling pt she need pre auto for her freestyle lexi 14 day sensor machine [phone] * Bailee Bonds RN - 10/27/2019 2:01 PM CDT Sent * Alexandra Lema - 10/27/2019 12:55 PM CDT Free style lexi need to go to [facility] [place] insurance will not pay for it at [facility] thanks documented in this encounter Plan of Treatment Not on file documented as of this encounter Visit Diagnoses Diagnosis Type 2 diabetes mellitus with diabetic nephropathy, with long-term current use of insulin (CMS/HCC [facility]) documented in this encounter Care Teams Jewelry Designer Relationship Specialty [place] [address] [place] [address] PCP - General FAMILY PRACTICE 08/17/19 06/15/21 documented as of this encounter
--- OUTSIDE RECORDS SUMMARY | 2024-02-03 11:18 | XMS_ITS | Encounter Summary ---
Author Organization [facility] Address [address] [place] [address]. [place], [place] [address] [place] [address] Care Team Providers Care Stretching Machine Operator Name Role Phone Jessee Gregg MD Primary Care Provider +02-20 [phone] Encounter Details Date Type Department Care Team (Latest Contact Info) Description 04/17/2020 Scan HEALTH INFO SRVCS Scanned, Documents Social [...] on filedocumented in this encounter Care Teams Stretching Machine Operator Relationship Specialty [place] [address] [place] [address] PCP - General FAMILY PRACTICE 08/17/19 06/15/21 documented as of this encounter
--- OUTSIDE RECORDS SUMMARY | 2024-02-03 11:18 | XMS_ITS | Encounter Summary ---
Author Organization [facility] Address [address] [place] [address]. [place] [address] [place] [address] Care Team Providers Care Insole Buffer Name Role Phone Jessee Gregg MD Primary Care Provider [phone] Reason for Visit * Reason Onset Date Comments Medication Management 03/15/2020 Encounter Details Date Type Department Care Team (Late st Contact Info) Description 03/15/2020 Telephone [facility] [address] [place] [address] Jessee Gregg MD [address] [address] Medication Management Social History Tobacco Use Types Packs/Day Years [...] as of this encounter Progress Notes * Carmen Nicole RN - 03/19/2020 4:37 PM CSTAddended by: CARMEN NICOLE on: 03/19/2020 04:37 PM Modules accepted: Orders OMER ADVISOR * Carmen Nicole RN - 03/15/2020 2:22 PM CST 31 g 8 mm QID Order sent. OMER ADVISOR * Danika Banegas - 03/15/2020 1:24 PM CST [facility] called and needs clarification on her Pen needles script, pt is asking for a different size and pt usually uses 4 needles a day and not just one, (2 changes) ref.# [id number] OMER ADVISOR documented in this encounter Plan of Treatment Not on file documented as of this encounter Visit Diagnoses Diagnosis Diabetes (CMS/HCC [facility])- Primary documented in this encounter Care Teams Insole Buffer Relationship Specialty [place] [address] [place] [address] PCP - General FAMILY PRACTICE 08/17/19 06/15/21 documented as of this encounter
--- OUTSIDE RECORDS SUMMARY | 2024-02-03 11:18 | XMS_ITS | Encounter Summary ---
Author Organization [facility] Address [address] [place] [address]. [place] [address] [place] [address] Care Team Providers Care I O Psychologist Name Role Phone Jessee Gregg MD Primary Care Provider [phone] Reason for Referral * Consultation (Urgent) - Closed Specialty Diagnoses / Procedures Referred By Contac t Referred To Contact PULMONARY DISEASE Diagnoses Chronic obstructive pulmonary disease ([facility] HHS/HCC) Chronic hypoxemic respiratory failure ([facility]) Jessee Gregg MD [address] [facility] [address] [place] [address] Phone: tel: fax: Matilde Contreras, [facility] [address] [place] [address] Phone: tel: fax: Referral ID Status Reason Start Date Expiration Date V isits Requested Visits Authorized [id number] Closed Specialty Services 04/03/2020 05/01/2021 1 1 Scheduling Instructions Pt wants referral to see Dr Contreras. Fax [phone]. Thanks! ER SLICING MACHINE OPERATOR Reason for Visit * Reason Onset Date Comments Other 04/03/2020 Encounter Details Date Type Department Care Team (Late st Contact Info) Description 04/03/[address] [facility] [address] [place] [address] Jessee Gregg MD 94[address] [facility] [address] [place] [address] Other Social History Tobacco Use Types Packs/Day [...] Progress Notes * Shelly España RN - 04/03/2020 10:44 AM CST Referral placed. ER SLICING MACHINE OPERATOR * Kalpana Cabrera LPN - 04/03/2020 10:26 AM CST Pt called she has her own cable tender she want to go to and need referral to Matilde Contreras [phone] Update insulin to decrease pt states doing fine less reactions [phone] pt # ER SLICING MACHINE OPERATOR documented in this encounter Plan of Treatment Scheduled Referrals Name Type Priority Associated Diagnoses Orde r Schedule Ambulatory referral to Pulmonology (OTHER) Referral Routine Chronic obstructive pulmonary disease ([facility]CC HHS/HCC) Chronic hypoxemic respiratory failure ([facility]/HCC HHS/HCC) Ordered: 04/03/2020 documented as of this encounter Visit Diagnoses Diagnosis Chronic obstructive pulmonary disease (CMS/HCC HHS/HCC)- Primary Chronic airway obstruction, not elsewhere classified Chronic hypoxemic respiratory failure (CMS/HCC HHS/HCC) Chronic respiratory failure documented in this encounter Care Teams I O Psychologist Relationship Specialty [place] [address] [place] [address] PCP - General FAMILY PRACTICE 08/17/19 06/15/21 documented as of this encounter
--- OUTSIDE RECORDS SUMMARY | 2024-02-03 11:18 | XMS_ITS | Encounter Summary ---
Author Organization [facility] Address [address] [place] [address]. [place], [place] [address] [place] [address] Care Team Providers Care Outreach Professional Name Role Phone Jessee Gregg MD Primary Care Provider [phone] Encounter Details Date Type Department Care Team (Latest Contact Info) Description 08/17/2019 Travel Social History Tobacco Use Types Packs/Day [...] on filedocumented in this encounter Care Teams Outreach Professional Relationship Specialty [place] [address] [place] [address] PCP - General FAMILY PRACTICE 08/17/19 06/15/21 documented as of this encounter
--- OUTSIDE RECORDS SUMMARY | 2024-02-03 11:18 | XMS_ITS | Encounter Summary ---
Author Organization [facility] Address [address] [place] [address]. [place], [place] [address] [place] [address] Care Team Providers Care Warp Dyeing Tender Name Role Phone Jessee Gregg MD Primary Care Provider [phone] Encounter Details Date Type Department Care Team (Latest Contact Info) Description 01/03/2020 Scan HEALTH INFO [facility] Scanned, Documents Social [...] on filedocumented in this encounter Care Teams Warp Dyeing Tender Relationship Specialty [place] [address] [place] [address] PCP - General FAMILY PRACTICE 08/17/19 06/15/21 documented as of this encounter
--- OUTSIDE RECORDS SUMMARY | 2024-02-03 11:18 | XMS_ITS | Encounter Summary ---
Author Organization [facility] Address [address] [place] [address]. [place] [address] [place] [address] Care Team Providers Care Beater Worker Helper Name Role Phone Jessee Gregg MD Primary Care Provider [phone] Reason for Visit * Reason Onset Date Comments Medication 11/23/2019 Encounter Details Date Type Department Care Team (Late st Contact Info) Description 11/23/[address] [facility] [address] [place] [address] Jessee Gregg MD 94[address] [facility] [address] [place] [address] Medication Social History Tobacco Use Types Packs/Day [...] Progress Notes * Shelly España RN - 11/23/2019 10:27 AM CDT Called pt and informed her of message per Dr Gregg. She v/u. States she is currently taking 22 units daily. New rx sent to [facility] in [place]. * Jessee Gregg MD - 11/23/2019 10:09 AM CDT Discussed with Rhonda. Ok to switch levemir to lantus. I do believe we decreased insulin to 22U nightly. * Shelly España RN - 11/23/2019 9:34 AM CDT Please advise. Thanks! * Cristal Ricketts - 11/23/2019 9:26 AM CDT PT called stating at her last office visit w/Marysol he said he was changing her insulin she said that has not been done yet she was calling to check the status of that please advise c/b # [phone] documented in this encounter Plan of Treatment Not on file documented as of this encounter Visit Diagnoses Diagnosis Diabetes (CMS/HCC HHS/HCC)- Primary documented in this encounter Care Teams Beater Worker Helper Relationship Specialty [place] [address] [place] [address] PCP - General FAMILY PRACTICE 08/17/19 06/15/21 documented as of this encounter
--- OUTSIDE RECORDS SUMMARY | 2024-02-03 11:18 | XMS_ITS | Encounter Summary ---
Author Organization [facility] Address [address] [place] [address]. [place] [address] [place] [address] Care Team Providers Care Greenhouse Transplanter Name Role Phone Diya Kinney MD Primary Care Provider [phone] Reason for Visit * Reason Comments New Patient est care Encounter Details Date Type Department Care Team (Late st Contact Info) Description 08/17/2019 1:20 PM CDT Office Visit [facility] Family & Internal Medicine [facility] [address] [place] [address] Diya Kinney MD [address] [place] [address] New Patient (est care) Social History Tobacco Use Types Packs/Day Years [...] Sign Reading Time Taken Comments Blood Pressure 112/64 08/17/2019 12:49 PM CDT Pulse 61 08/17/2019 12:49 PM CDT Temperature 37.1 ??C (98.8 ??F) 08/17/2019 12:49 PM C DT Respiratory Rate 18 08/17/2019 12:49 PM CDT Oxygen Saturation 90% 08/17/2019 12:49 PM CDT Inhaled Oxygen Concentration - - Weight 61.7 kg (136 lb) 08/17/2019 12:49 PM CDT Height 152.4 cm (5') 08/17/2019 12:49 PM CDT Body Mass Index 26.56 08/17/2019 12:49 PM CDT documented in this encounter Progress Notes * Diya Kinney MD - 08/17/2019 1:20 PM CDT Reason for Visit: New Patient ([facility]) History of Present Illness: 78yo female for [facility]. Diabetes Mellitus. controlled. Currently on Levemir (detemir) insulin -Dose: 26U nightly and Novolog SSI with meals, generally 6-7U, No medication side effects. no polyuria or polydipsia, no chest pain and no numbness, tingling or pain in extremities Currently on statin, KEENAN/ARB and ASA. Eye exam current, foot exam current, labs current HTN. Doing well. controlled. No complaints. Currently on Amlodipine, Metoprolol and Losartan. no medication side effects noted. taking medications as instructed, no chest pain on exertion, no dyspneaon exertion and no swelling of ankles Hyperlipidemia. Doing well. No complaints today. Currently on Mevacor (lovastatin) No side effects.no chest pain and no numbness, tingling or pain in extremities. Labs current . ROS: Review of Systems Constitutional: Negative for chills and fever. Respiratory: Negative for cough. Cardiovascular: Negative for chest pain. Medications: Current Outpatient Medications: ??? amlodipine 5 MG tablet, Take 1 tablet by mouth daily., Disp: , Rfl: ??? aspirin EC (ASPIRIN) 81 MG EC tablet, Take 81 mg by mouth daily., Disp: , Rfl: ??? benzonatate 200 MG capsule, Take 200 mg by mouth 3 (three) times daily as needed for Cough., Disp: , Rfl: ??? Calcium Carbonate-Vit D-Min (CALCIUM/VITAMIN D/MINERALS) 600-200 MG-UNIT Tab, Take 1 capsule bymouth daily., Disp: 60 tablet, Rfl: ??? Calcium-Vitamin D (RA CALCIUM HI-LYNETTE/VITAMIN D) 500-125 MG-UNIT Tab, Take 2 tablets by mouth every 4 (four) hours as needed., Disp: , Rfl: ??? furosemide 40 MG tablet, TAKE 1 TABLET BY MOUTH IN THE MORNING AND 1/2 TABLET AT NOON, Disp: , Rfl: 4 ??? KLOR-CON 10 10 MEQ Tab CR tablet, Take 10 mEq by mouth daily., Disp: , Rfl: 0 ??? LEVEMIR 100 UNIT/ML injection, INJECT 19 UNITS SUBCUTANEOUSLY AT BEDTIME, Disp: , Rfl: 1 ??? levothyroxine 150 MCG tablet, , Disp: , Rfl: ??? losartan 50 MG tablet, Take 1 tablet (50 mg total) by mouth daily., Disp: 90 tablet, Rfl: 3 ??? lovastatin 20 MG tablet, Take 20 mg by mouth daily., Disp: , Rfl: 4 ??? metoprolol tartrate 25 MG tablet, Take 1 tablet (25 mg total) by mouth 2 (two) times daily., Disp: 180 tablet, Rfl: 3 ??? NOVOLOG FLEXPEN 100 UNIT/ML injection (PEN), INJECT SUBCUTANEOUSLY 3 TIMES DAILY PER SLIDING SCALE (UP TO DAILY DOSE OF 35-40 UNITS), Disp: , Rfl: 12 ??? omeprazole 20 MG capsule, Take 20 mg by mouth daily., Disp: , Rfl: 0 ??? VENTOLIN HFA 108 (90 BASE) MCG/ACT inhaler, , Disp: , Rfl: ??? ACCU-CHEK NYDIA PLUS test strip, , Disp: , Rfl: ??? ANORO ELLIPTA 62.5-25 MCG/INH inhaler, Inhale 1 puff into the lungs daily., Disp: , Rfl: ??? DROPLET PEN NEEDLES 31G X 5 MM [facility], , Disp: , Rfl: ??? SOFTCLIX LANCETS [facility], , Disp: , Rfl: No Known Allergies Past Medical History: Diagnosis Date ??? Acute ND (CMS/HCC) 05/12/1992 ??? Chronic renal failure ??? [...] Occupational History ??? Occupation: Retired Social History Tobacco Use ??? Smoking status: Former Smoker Packs/day: 0.50 Last attempt to quit: 2019 Years since quittin.5 ??? Smokeless tobacco: Never Used Substance Use Topics ??? Alcohol use: No ??? Drug use: No Family History Problem Relation Name Age of Onset ??? Heart Disease Mother ??? Diabetes Mother ??? Stroke Father ??? Heart Disease Sister ??? Coronary artery disease Other premature ??? ND Son 37 ??? Stroke Son (after open heart) ??? Open Heart Son ??? ND Sister ??? Heart Sister form heart problems ??? Heart Sister from heart problems Family Status Relation Name Status ??? Mother at age 82 ??? Father at age 78 ??? Sister at age 70 ??? Other Other Family history is positive for: ??? Son at age 43 ??? Sister at age 55 ??? Sister at age 70 ??? Sister at age 58 Filed Vitals: 08/17/19 1249 BP: 112/64 Pulse: 61 Resp: 18 Temp: 98.8 ??F (37.1 ??C) SpO2: 90% Weight: 61.7 kg (136 lb) Height: 5' (1.524 m) Physical Exam Constitutional: She appears well-developed and well-nourished. HENT: Head: Normocephalic and atraumatic. Cardiovascular: Normal rate and regular rhythm. Pulmonary/Chest: Effort normal and breath sounds normal. Abdominal: Soft. Skin: Skin is warm and dry. Nursing note and vitals reviewed. Results for orders placed or performed in visit on 08/17/19 HEMOGLOBIN, GLYCOSYLATED Result Value Ref Range HGB A1C 6.6 % Diagnoses/Impression: 1. Type 2 diabetes mellitus with diabetic nephropathy, with long-term current use of insulin ([facility]) HEMOGLOBIN, GLYCOSYLATED COLLECT.CAPILLARY (FNGR,HEEL,EAR) 2. Hyperlipidemia, unspecified hyperlipidemia type 3. Essential hypertension Recommendations and Plan: 1. DM. Type 2. With nephropathy. Seeing nephro. A1C today controlled. Refill insulin as needed. Patient does give herself 4 insulin injections daily and check BS 4-5 times daily. Consider CGM. FU 3 moths. 2. HLD. Currently on statin. No complaints. Refill as needed. Get previous records. FU 3 months. 3. HTN. Doing well. No complaints.BPs controlled. Refill meds as needed. Keep appt with nephro. Discussed importance of control. Orders Placed This Encounter ??? COLLECT.CAPILLARY (FNGR,HEEL,EAR) ??? HEMOGLOBIN, GLYCOSYLATED ??? ANORO ELLIPTA 62.5-25 MCG/INH inhaler ??? ACCU-CHEK NYDIA PLUS test strip ??? SOFTCLIX LANCETS Misc ??? DROPLET PEN NEEDLES 31G X 5 MM Misc DIYA KINNEY Referring Provider: No ref. provider found PCP: DIYA KINNEY MD documented in this encounter Plan of Treatment Not on file documented as of this encounter Procedures Procedure Name Priority Date/Time Associated Diagnosis Comments COLLECT.CAPILLARY (FNGR,HEEL,EAR) Routine 08/17/2019 1:33 PM CDT Type 2 diabetes mellitus with diabetic nephropathy, with long-term current use of insulin ([facility]) HEMOGLOBIN, GLYCOSYLATED Routine 08/17/2019 Type 2 diabetes mellitus with diabetic nephropathy, with long-term current use of insulin ([facility]) documented in this encounter Results * HEMOGLOBIN, GLYCOSYLATED (08/17/2019) HGB A1C 6.6 % [facility] ([id number])RUEL 08/17/2019 us Diya Kinney MD LABORATORY Final Resul t [facility] ([id number]), CASS [address] [place] [address], documented in this encounter Visit Diagnoses Diagnosis Type 2 diabetes mellitus with diabetic nephropathy, with long-term current use of insulin ([facility])- Primary Hyperlipidemia, unspecified hyperlipidemia type Essential hypertension Unspecified essential hypertension documented in this encounter Care Teams Greenhouse Transplanter Relationship Specialty [place] [address] [place] [address] PCP - General FAMILY PRACTICE 08/17/19 06/15/21 documented as of this encounter
--- OUTSIDE RECORDS SUMMARY | 2024-02-03 11:18 | XMS_ITS | Encounter Summary ---
Author Organization [facility] Address [address] [place] [address]. [place] [address] [place] [address] Care Team Providers Care Microfilm Equipment Inspector Name Role Phone Jessee Gregg MD Primary Care Provider [phone] Encounter Details Date Type Department Care Team (Latest Contact Info) Description 04/30/2020 Travel Social History Tobacco Use Types Packs/Day [...] on filedocumented in this encounter Care Teams Microfilm Equipment Inspector Relationship Specialty [place] [address] [place] [address] PCP - General FAMILY PRACTICE 7/2/20 5/1/22 documented as of this encounter
--- OUTSIDE RECORDS SUMMARY | 2024-02-03 11:18 | XMS_ITS | Encounter Summary ---
Author Organization [facility] Address [address] [place] [address]. [place] [address] [place] [address] Care Team Providers Care Line Tester Name Role Phone Jessee Gregg MD Primary Care Provider [phone] Reason for Visit * Reason Onset Date Comments Question 05/22/2020 Encounter Details Date Type Department Care Team (Late st Contact Info) Description 05/22/2020 Telephone [facility] [address] [place] [address] Jessee Gregg MD [address] [address] Question Social History Tobacco Use Types Packs/Day [...] Progress Notes * Shelly Myers RN - 06/21/2020 10:30 AM CDT Called pt and informed her of lab results. She v/u. * Jessee Gregg MD - 06/21/2020 8:14 AM CDT TSH improve. No med changes at this time. Keep follow up next month. * Shelly Myers RN - 05/22/2020 12:47 PM CDTAddended by: SHELLY MYERS on: 05/22/2020 12:47 PM Modules accepted: Orders * Shelly Myers RN - 05/22/2020 12:42 PM CDT Called pt and informed her to stay at her current Lantus dose. She v/u and states she is at 16 units daily. Chart updated to reflect this. Explained to pt that last TSH was low, so we needed to decrease her dose of Levothyroxine because we were giving her too much. She v/u. Pt requesting order for TSH to be faxed to [facility] in [place]. Order faxed. Instructed pt she can drop off form and we canreview. Informed her if we can't fill this out off of last visit, we will call her. She v/u. * Jessee Gregg MD - 05/22/2020 12:16 PM CDT Stay at current lantus dose. For physical form, if she wants to drop off, may be able to fill out from visit few weeks ago. If not, we can call her back. * Shelly Myers RN - 05/22/2020 11:54 AM CDT Please advise: Last A1C was 3-16 at 5.7. You had mentioned may decrease Lantus by 2 units if sugars remain low. Would you like her to do this? TSH was low and she was on 150mcg daily. I instructed her to decrease to 137mcg daily and repeat TSH in 6 weeks. I will call her to explain this to her again. Will she need apt for you to fill out physical form? Thanks!! * Sonali Woodard - 05/22/2020 11:29 AM CDT Nikki called provided her blood sugar readings, see below. 05/01/2020 Lunch: 61 05/02/2020 Fasting 106 Lunch: 106, Dinner 67 05/03/2020 Fasting 116 Lunch: 205, Dinner: 80 Fasting 75, Lunch 57, Dinner: 71 05/05/2020 Fasting 91, Lunch 67, Dinner 55 05/06/2020 Fasting 70, Lunch 81, Dinner 87 05/07/2020 Fasting 81, Lunch 64, Dinner 85 05/08/2020 Fasting 68, Lunch 60, Dinner 96 05/09/2020 Fasting 127, Lunch 259, Dinner 86 05/10/2020 Fasting 123, Lunch 120, Dinner 107 05/11/2020 Fasting 103, lunch 75, dinner 140 05/12/2020 Fasting 99, Lunch 200, 05/13/2020 Fasting 85, Lunch 68, Dinner 112 Last Blood test was told thyroid was low, blood test in 6 wks, but lowered the thyroid mediction She is asking if this is correct or if she missed something. Last question, son is a alcohol still operator and the state is requiring Nikki to get a physical with a formto complete. She is wondering if Dr. Hawthorne will complete the form of if she needs to make an appointment for this. I told her most likely she will need to come in with the form and he will complete that day. Please call Nikki back to help answer her questions. CB # [phone] documented in this encounter Plan of Treatment Not on file documented as of this encounter Procedures Procedure Name Priority Date/Time Associated Diagnosis Comments TSH W/REFLEX Routine 06/19/2020 10:51 AM CDT Hypothyroidism, unspecified type documented in this encounter Results * TSH W/REFLEX (06/19/2020 10:51 AM CDT) TSH 0.89 0.40 - 4.50 mIU/L [facility] 06/19/2020 10:5 1 AM CDT 06/19/2020 10:51 AM CDT Jessee Gregg MD LABORATORY Final Resul t [facility] [address] [place] [address] documented in this encounter Visit Diagnoses Diagnosis Hypothyroidism, unspecified type- Primary documented in this encounter Care Teams Line Tester Relationship Specialty [place] [address] [place] [address] PCP - General FAMILY PRACTICE 08/17/19 06/15/21 documented as of this encounter
--- OUTSIDE RECORDS SUMMARY | 2024-02-03 11:18 | XMS_ITS | Encounter Summary ---
Author Organization [facility] Address [address] [place] [address]. [place], [place] [address] [place] [address] Care Team Providers Care Cigarette Book Maker Name Role Phone Raymond Medina MD Primary Care Provider [phone] Jessee Gregg MD Primary Care Provider [phone] Reason for Visit * Reason Comments Lab [...] Associated Diagnosis Comments OUTSIDE LAB (SCAN ORDER) 02/20/2019 documented in this encounter Results * OUTSIDE LAB (SCAN) (02/20/2019) 02/20/2019 Narrative 02/20/2019 Ordered by an unspecified provider. us Documents Scanned SCANNING Final Result documented in this encounter Visit Diagnoses Not on filedocumented in this encounter Care Teams Cigarette Book Maker Relationship Specialty Start Date End Date Raymond Medina MD [address] [address] PCP - General FAMILY PRACTICE 06/04/16 08/16/19 [place] [address] [place] [address] PCP - General FAMILY PRACTICE 08/17/19 06/15/21 documented as of this encounter
--- OUTSIDE RECORDS SUMMARY | 2024-02-03 11:18 | XMS_ITS | Encounter Summary ---
Author Organization [facility] Address [address] [place] [address]. [place] [address] [place] [address] Care Team Providers Care Pelt Inspector Name Role Phone Jessee Gregg MD Primary Care Provider [phone] Reason for Visit * Reason Onset Date Comments Diabetes 09/04/2019 Freestyle Sophia Encounter Details Date Type Department Care Team (Late st Contact Info) Description 09/04/[address] [facility] [address] [place] [address] Jessee Gregg MD [address] [address] Diabetes (Freestyle Sophia) Social History Tobacco Use Types Packs/Day Years [...] as of this encounter Progress Notes * Marita Myers RN - 10/27/2019 11:16 AM CDTAddended by: MARITA MYERS on: 10/27/2019 11:16 AM Modules accepted: Orders * Marita Myers RN - 10/27/2019 11:16 AM CDT Rx sent. * Alexandra Godwin - 10/27/2019 11:03 AM CDT Pt [facility] back [facility] Sophia 14 day one Pt CB# [phone] * Javan Purdy MA - 09/08/2019 4:24 PM CDT Called and spoke with pt, pt stated she already had all the information she needed. Pt states she called the company and spoke to them. * Rohnda Rich PharmD - 09/08/2019 12:58 PM CDT Thank you. Let me know if there is anything else I can do to help! * Alexandra Godwin - 09/08/2019 8:33 AM CDT Pt returned your call I read her your note V/U * Marita Myers RN - 09/07/2019 4:10 PM CDT LVM for pt to call office. When she returns call, need to relay message to pt per Rhonda Lopes. * Rhonda Rich PharmD - 09/07/2019 1:44 PM CDT Since [facility] is not contracted with [employer] the pt needs to reach out to one of thefollowing DME companies to determine if contacted with insurance: - [facility] at [phone] - [employer] at [phone] (ext [phone]) - [facility] [phone] The companies have to talk to the pt - they cannot talk to the HCP when verifying insurance info. The reader (glucometer) is a one time fee and typically will last for around a year. The sensors that are applied to the arm, need to be changed every 2 weeks. But again, if she contacts the above DME company, it is very possible she can get it for free or for cost reduction. * Marita Myers RN - 09/07/2019 1:41 PM CDT Do you know how long the readers last on the Sophia? Thanks! * Vicky Tapia - 09/07/2019 1:26 PM CDT Patient has questions regarding her Free Style Sophia and how long the readers last. She states the readers are $84 a piece wand was told they need to be changed weekly C/b# [phone]. Cristal and I both were disconnected. * Jess Kaufman - 09/04/2019 4:16 PM CDT Thank you for reaching out, but we do not process DME referrals at this time. * Vicky Tapia - 09/04/2019 12:41 PM CDT Joon, [facility], called adviising the referral they received for a free style sophia, they are not in her [employer]. They advised the patient to contact her insurance company for a supplier who is. documented in this encounter Plan of Treatment Not on file documented as of this encounter Visit Diagnoses Diagnosis Type 2 diabetes mellitus with diabetic nephropathy, with long-term current use of insulin ([facility])- Primary documented in this encounter Care Teams Pelt Inspector Relationship Specialty [place] [address] [place] [address] PCP - General FAMILY PRACTICE 08/17/19 06/15/21 documented as of this encounter
--- OUTSIDE RECORDS SUMMARY | 2024-02-03 11:18 | XMS_ITS | Encounter Summary ---
Author Organization [facility] Address [address] [place] [address]. [place], [place] [address] [place] [address] Care Team Providers Care Chemical Production Machine Operator Name Role Phone Jessee Gregg MD Primary Care Provider [phone] Encounter Details Date Type Department Care Team (Latest Contact Info) Description 08/31/2019 Scan HEALTH INFO SRVCS Scanned, Documents Social [...] on filedocumented in this encounter Care Teams Chemical Production Machine Operator Relationship Specialty [place] [address] [place] [address] PCP - General FAMILY PRACTICE 08/17/19 06/15/21 documented as of this encounter
--- OUTSIDE RECORDS SUMMARY | 2024-02-03 11:18 | XMS_ITS | Encounter Summary ---
Author Organization [facility] Address [address] [place] [address]. [place], [place] [address] [place] [address] Care Team Providers Care Motion Picture Equipment Machinist Name Role Phone Diya Kinney MD Primary Care Provider [phone] Reason for Visit * Reason Comments Diabetes 3mo ck doing ok Hyperlipidemia CHF COPD Encounter Details Date Type Department Care Team (Late st Contact Info) Description 11/21/2019 1:00 PM CDT Office Visit [facility] [address] [address] Diya Kinney MD [address] [place] [address] Diabetes (3mo ck doing ok); Hyperlipidemia; CHF; COPD Social History Tobacco Use Types Packs/Day Years [...] Sign Reading Time Taken Comments Blood Pressure 110/60 11/21/2019 1:05 PM CDT Pulse 64 11/21/2019 1:05 PM CDT Temperature 36.3 ??C (97.3 ??F) 11/21/2019 1:05 PM CD T Respiratory Rate 20 11/21/2019 1:05 PM CDT Oxygen Saturation 90% 11/21/2019 1:05 PM CDT Inhaled Oxygen Concentration - - Weight 63 kg (139 lb) 11/21/2019 1:05 PM CDT Height 152.4 cm (5') 11/21/2019 1:05 PM CDT Body Mass Index 27.15 11/21/2019 1:05 PM CDT documented in this encounter Progress Notes * Diya Kinney MD - 11/21/2019 1:00 PM CDT Reason for Visit: Diabetes (3mo ck doing ok); Hyperlipidemia; CHF; and COPD History of Present Illness: 79yo female for follow up. Diabetes Mellitus. controlled. Currently on Levemir (detemir) insulin -Dose: 26U nightly and Novolog SSI with meals, generally 6-7U, No medication side effects. no polyuria or polydipsia, no chest pain and no numbness, tingling or pain in extremities Currently on statin, KEENAN/ARB and ASA. Does report occasional lows, able to notice and self-correct. ROS: Review of Systems Constitutional: Negative for [...] by mouth daily., Disp: 90 tablet, Rfl: 1 ??? ANORO ELLIPTA 62.5-25 MCG/INH inhaler, Inhale 1 puff into the lungs daily., Disp: , Rfl: ??? aspirin EC (ASPIRIN) 81 MG EC tablet, Take 81 mg by mouth daily., Disp: , Rfl: ??? calcium carbonate-vitamin D 600-400 MG-UNIT tablet, Take 1 tablet by mouth 2 (two) times daily.clarification of script, Disp: 180 tablet, Rfl: 1 ??? Continuous Blood Gluc Concrete Batch Plant Operator (FREESTYLE SOPHIA 14 DAY READER) Device, Use with Freestyle LibreSensor, Disp: 1 Device, Rfl: 2 ??? Continuous Blood Gluc Sensor (FREESTYLE SOPHIA 14 DAY SENSOR) Misc, Use with Freestyle Sophia monitor, Disp: 1 each, Rfl: 2 ??? DROPLET PEN NEEDLES 31G X 5 MM Mis, , Disp: , Rfl: ??? furosemide 40 MG tablet, TAKE 1 TABLET BY MOUTH IN THE MORNING AND 1/2 TABLET AT NOON, Disp: , Rfl: 4 ??? KLOR-CON 10 10 MEQ Tab CR tablet, Take 10 mEq by mouth daily., Disp: , Rfl: 0 ??? LEVEMIR 100 UNIT/ML injection, INJECT 19 UNITS SUBCUTANEOUSLY AT BEDTIME (Patient taking differently: Indications: WANTS THE PEN NOT VIAL INJECT 26 UNITS SUBCUTANEOUSLY AT BEDTIME), Disp: 1 vial,Rfl: 2 ??? levothyroxine 150 MCG tablet, Take 150 [...] mouth daily., Disp: , Rfl: 0 ??? potassium chloride CR 20 MEQ tablet, potassium chloride ER 20 mEq tablet,extended release(part/cryst), Disp: , Rfl: ??? SOFTCLIX LANCETS Misc, , Disp: , Rfl: ??? VENTOLIN HFA 108 (90 BASE) MCG/ACT inhaler, as needed. , Disp: , Rfl: No Known Allergies Past Medical History: Diagnosis Date ??? Acute NM (CMS/HCC) 05/12/1992 ??? Chronic renal failure ??? [...] Last attempt to quit: 2019 Years since quittin.7 ??? Smokeless tobacco: Never Used Substance Use Topics ??? Alcohol use: No ??? Drug use: No Family History Problem Relation Name Age of Onset ??? Heart Disease Mother ??? Diabetes Mother ??? Stroke Father ??? Heart Disease Sister ??? Coronary artery disease Other premature ??? NM Son 37 ??? Stroke Son (after open heart) ??? Open Heart Son ??? NM Sister ??? Heart Sister form heart problems ??? Heart Sister from heart problems Family Status Relation Name Status ??? Mother at age 82 ??? Father at age 78 ??? Sister at age 70 ??? Other Other Family history is positive for: ??? Son at age 43 ??? Sister at age 55 ??? Sister at age 70 ??? Sister at age 58 Filed Vitals: 11/21/19 1305 BP: 110/60 Pulse: 64 Resp: 20 Temp: 97.3 ??F (36.3 ??C) TempSrc: Temporal SpO2: 90% Weight: 63 kg (139 lb) Height: 5' (1.524 m) Physical Exam Constitutional: She is oriented to person, place, and time. She appears well- developed and well-nourished. HENT: Head: Normocephalic and atraumatic. Cardiovascular: Normal rate and regular rhythm. Pulmonary/Chest: Effort normal and breath sounds normal. Neurological: She is alert and oriented to person, place, and time. Vitals reviewed. Results for orders placed or performed in visit on 11/21/19 HEMOGLOBIN, GLYCOSYLATED Result Value Ref Range HGB A1C 6.3 % Diagnoses/Impression: 1. Type 2 diabetes mellitus with diabetic nephropathy, with long-term current use of insulin ([facility]) HEMOGLOBIN, GLYCOSYLATED COLLECT.CAPILLARY (FNGR,HEEL,EAR) Recommendations and Plan: 1. DM. Type 2. A1C 6.3, too tight control. Discussed options, decrease insulin to 22U and likely switch to lantus. FU 3 months, A1C prior . Orders Placed This Encounter ??? COLLECT.CAPILLARY (FNGR,HEEL,EAR) ??? HEMOGLOBIN, GLYCOSYLATED ??? LORazepam (ATIVAN) 0.5 MG tablet ??? potassium chloride CR 20 MEQ tablet DIYA KINNEY Referring Provider: No ref. provider found PCP: DIYA KINNEY MD documented in this encounter Plan of Treatment Not on file documented as of this encounter Procedures Procedure Name Priority Date/Time Associated Diagnosis Comments COLLECT.CAPILLARY (FNGR,HEEL,EAR) Routine 11/21/2019 1:19 PM CDT Type 2 diabetes mellitus with diabetic nephropathy, with long-term current use of insulin ([facility]) HEMOGLOBIN, GLYCOSYLATED Today 11/21/2019 Type 2 diabetes mellitus with diabetic nephropathy, with long-term current use of insulin ([facility]) documented in this encounter Results * HEMOGLOBIN, GLYCOSYLATED (11/21/2019) HGB A1C 6.3 % HOLLIS LEE ([id number])RUEL 11/21/2019 us Diya Kinney MD LABORATORY Final Resul t HOLLIS LEE ([id number]), [place] [address] [place] [address], documented in this encounter Visit Diagnoses Diagnosis Type 2 diabetes mellitus with diabetic nephropathy, with long-term current use of insulin ([facility])- Primary documented in this encounter Care Teams Motion Picture Equipment Machinist Relationship Specialty [place] [address] [place] [address] PCP - General FAMILY PRACTICE 08/17/19 06/15/21 documented as of this encounter
--- OUTSIDE RECORDS SUMMARY | 2024-02-03 11:18 | XMS_ITS | Encounter Summary ---
Author Organization [facility] Address [address] [place] [address]. [place] [address] [place] [address] Care Team Providers Care Pharmacy Operations Specialist Name Role Phone Jessee Gregg MD Primary Care Provider [phone] [phone] Reason for Visit * Reason Onset Date Comments Question 05/29/2020 Encounter Details Date Type Department Care Team (Late st Contact Info) Description 05/29/2020 Telephone [facility] [address] [place] [address] Jessee Gregg MD [address] [facility] [address] [place] [address] Question Social History Tobacco Use Types Packs/Day [...] Notes * Shelly España RN - 05/29/2020 2:03 PM CDT Called pt and she states [facility]'t [facility] the Dexcommonitor. Informed her that Dr Gregg filled out paperwork and I faxed this and her office visit note to [facility] today. Advised her to call them to check in on this. She v/u. * Alexandra Godwin - 05/29/2020 11:43 AM CDT Pt wanting to talk with you about new Machine for her blood sugar CB# [phone] documented in this encounter Plan of Treatment Not on file documented as of this encounter Visit Diagnoses Not on filedocumented in this encounter Care Teams Pharmacy Operations Specialist Relationship Specialty [place] [address] [place] [address] PCP - General FAMILY PRACTICE 08/17/19 06/15/21 documented as of this encounter
--- OUTSIDE RECORDS SUMMARY | 2024-02-03 11:18 | XMS_ITS | Encounter Summary ---
Author Organization [facility] Address [address] [place] [address]. [place], [place] [address] [place] [address] Care Team Providers Care Crewman Armoured Personnel Carrier M113 Name Role Phone Jessee Gregg MD Primary Care Provider [phone] [phone] Reason for Visit * Reason Comments PFT (SCAN) Encounter Details Date Type Department Care Team (Latest Contact Info) Description 11/03/2019 Scan HEALTH INFO SRVCS Scanned, Documents PFT (SCAN) Social History Tobacco Use Types Packs/Day Years Used Date Smoking Tobacco: Former Cigarettes Q uit: 2019 Smokeless Tobacco: Never Alcohol Use Standard Drinks/Week Comments No 0 (1 standard drink = 0.6 oz pur e alcohol) PHQ-2 Answer Date Recorded PHQ-2 Score - If the patient scores above 3, please move on to questions 3-9 0 11/21/2019 Comments Unknown Sex and Gender Information Value [...] Procedure Name Priority Date/Time Associated Diagnosis Comments PFT GENERIC (SCAN ORDER) 11/03/2019 documented in this encounter Results * PFT GENERIC (11/03/2019) 11/03/2019 Narrative 11/03/2019 Ordered by an unspecified provider. us Documents Scanned SCANNING Final Result documented in this encounter Visit Diagnoses Not on filedocumented in this encounter Care Teams Crewman Armoured Personnel Carrier M113 Relationship Specialty [place] [address] [place] [address] PCP - General FAMILY PRACTICE 08/17/19 06/15/21 documented as of this encounter
--- OUTSIDE RECORDS SUMMARY | 2024-02-03 11:18 | XMS_ITS | Encounter Summary ---
Author Organization [facility] Address [address] [place] [address]. [place], [place] [address] [place] [address] Care Team Providers Care Double End Sewer Name Role Phone Jessee Gregg MD Primary Care Provider [phone] Reason for Visit * Reason Comments Ultrasound (SCAN) Encounter Details Date Type Department Care Team ([facility] Contact Info) Description 09/20/2019 Scan HEALTH INFO SRVCS Scanned, Documents Ultrasound (SCAN) Social History Tobacco Use Types Packs/Day [...] Procedure Name Priority Date/Time Associated Diagnosis Comments ULTRASOUND GENERIC (SCAN ORDER) 09/20/2019 documented in this encounter Results * ULTRASOUND GENERIC (09/20/2019) Anatomical Region Laterality Modality Other 09/20/2019 Narrative 09/20/2019 Ordered by an unspecified provider. us Documents Scanned SCANNING Final Result documented in this encounter Visit Diagnoses Not on filedocumented in this encounter Care Teams Double End Sewer Relationship Specialty [place] [address] [place] [address] PCP - General FAMILY PRACTICE 08/17/19 06/15/21 documented as of this encounter
--- OUTSIDE RECORDS SUMMARY | 2024-02-03 11:19 | XMS_ITS | Encounter Summary ---
Author Organization [facility] Address [address] [place] [address]. [place] [address] [place] [address] Care Team Providers Care Electrical Manager Name Role Phone Raymond Medina MD Primary Care Provider [phone] Encounter Details Date Type Department Care Team (Late st Contact Info) Description 04/27/2016 Abstract [facility] [address] [place] [address] Raymond Medina MD [address] [place] [phone] Social History Tobacco Use Types Packs/Day Years Used Date Smoking Tobacco: Smoker, Current Status Unknown Comments Unknown Sex and Gender Information Value Date Recorded Sex Assigned at Not on file Legal Sex Female 6:01 PM CDT Gender Identity Not on file Sexual Orientation Not on file documented as of this encounter Plan of Treatment Not on file documented as of this encounter Visit Diagnoses Diagnosis Atelectasis Pulmonary collapse documented in this encounter Care Teams Electrical Manager Relationship Specialty Start Date End Date Raymond Medina MD [address] [place] [address] PCP - General FAMILY PRACTICE 06/04/16 08/16/19 documented as of this encounter
--- OUTSIDE RECORDS SUMMARY | 2024-02-03 11:19 | XMS_ITS | Encounter Summary ---
Author Organization [facility] Address [address] [place] [address]. [place] [address] [place] [address] Care Team Providers Care Field Operator Name Role Phone Unavailable Primary Care Provider Unavailabl e Reason for Visit * Reason Onset Date Comments Consultation Needed 05/04/2016 Encounter Details Date Type Department Care Team (Late st Contact Info) Description 05/04/2016 [facility]phone [facility] [address] [place] [address] Edgardo Ruffin MD [address] [place] [address], [address] [place] [address] Consultation Needed Social History Tobacco Use Types Packs/Day Years Used Date Smoking Tobacco: Smoker, Current Status Unknown Comments Unknown Sex and Gender Information Value Date Recorded Sex Assigned at Not on file Legal Sex Female 6:01 PM CDT Gender Identity Not on file Sexual Orientation Not on file documented as of this encounter Progress Notes * Yahaira Bronson - 05/04/2016 10:16 AM CDT Agustina with Dr. Raymond Medina contacted office to schedule consultation for moderate CAD calcificationon lung scan and abnormal EKG. Patient is scheduled for 06/10/2016 at 11:30 am in [place]. Agustina with Dr. Medina will contact patient with appointment date and time. If patient needs seen sooner in [facility], she will call back and reschedule appointment. Appointment reminder letter mailed. documented in this encounter Plan of Treatment Not on file documented as of this encounter Visit Diagnoses Not on filedocumented in this encounter
--- OUTSIDE RECORDS SUMMARY | 2024-02-03 11:19 | XMS_ITS | Encounter Summary ---
Author Organization [facility] Address [address] [place] [address]. [place] [address] [place] [address] Care Team Providers Care Hogshead Dumper Name Role Phone Raymond Medina MD Primary Care Provider [phone] Encounter Details Date Type Department Care Team (Late st Contact Info) Description 06/08/2016 Scan [facility] [address] [place] [phone] Scanned, Documents Social History Tobacco Use Types Packs/Day Years Used Date Smoking Tobacco: Every Day Cigarettes Alcohol Use Standard Drinks/Week Comments No 0 [...] on filedocumented in this encounter Care Teams Hogshead Dumper Relationship Specialty Start Date End Date Raymond Medina MD [address] [place], [place] [address] [address] PCP - General FAMILY PRACTICE 06/04/16 08/16/19 documented as of this encounter
--- OUTSIDE RECORDS SUMMARY | 2024-02-03 11:19 | XMS_ITS | Encounter Summary ---
Author Organization [facility] Address [address] [place] [address]. [place] [address] [place] [address] Care Team Providers Care Food Quality Technician Name Role Phone Raymond Medina MD Primary Care Provider [phone] Encounter Details Date Type Department Care Team (Late st Contact Info) Description 07/10/2015 Abstract [facility] [address] [place], [place] [id number] Raymond Medina MD [address] [place] [address] Social History Tobacco Use Types Packs/Day Years [...] as of this encounter Visit Diagnoses Diagnosis Encounter for screening mammogram for malignant neoplasm of breast Other screening mammogram documented in this encounter Care Teams Food Quality Technician Relationship Specialty Start Date End Date Raymond Medina MD [address] [place] [address] PCP - General FAMILY PRACTICE 06/04/16 08/16/19 documented as of this encounter
--- OUTSIDE RECORDS SUMMARY | 2024-02-03 11:19 | XMS_ITS | Encounter Summary ---
Author Organization [facility] Address [address] [place] [address]. [place] [address] [place] [address] Care Team Providers Care Client Service Supervisor Name Role Phone Unavailable Primary Care Provider Unavailabl e Encounter Details Date Type Department Care Team (Late st Contact Info) Description 06/03/2016 Orders Only [facility] AT [address] [place] [address] Alexandra Freire, RN Social History Tobacco Use Types Packs/Day Years [...]
--- OUTSIDE RECORDS SUMMARY | 2024-02-03 11:19 | XMS_ITS | Encounter Summary ---
Author Organization [facility] Address [address] [place] [address]. [place] [address] [place] [address] Care Team Providers Care Semiconductor Bonder Name Role Phone Dinora Medina MD Primary Care Provider [phone] Reason for Visit * Reason Comments Consult Abnormal CT chest sc an Encounter Details Date Type Department Care Team (Latest Contact Info) Description 06/10/2016 11:30 AM CDT Office Visit [facility] AT [address] [place] [phone] Edgardo Ruffin MD [address] [place] [address], [address] [place] [address] Consult (Abnormal CT chest scan) Social History Tobacco Use Types Packs/Day Years Used Date Smoking Tobacco: Every Day Cigarettes Smokeless Tobacco: Never Tobacco Cessation:Ready to Q uit: No; Counseling Given: Yes Alcohol Use Standard Drinks/Week Comments [...] Sign Reading Time Taken Comments Blood Pressure 145/57 06/10/2016 11:52 AM CDT Pulse 65 06/10/2016 11:51 AM CDT Temperature - - Respiratory Rate 20 06/10/2016 11:51 AM CDT Oxygen Saturation - - Inhaled Oxygen Concentration - - Weight 65 kg (143 lb 6.4 oz) 06/10/2016 11:51 AM CDT Height 152.4 cm (5') 06/10/2016 11:51 AM CDT Body Mass Index 28.01 06/10/2016 11:51 AM CDT documented in this encounter Progress Notes * Edgardo Ruffin MD - 06/10/2016 11:30 AM CDT Reason for Visit: Consult (Abnormal CT chest scan) Recommendations and Plan: SOB explained by COPD/smoking/atelectasis. No additional investigations required regarding coronary score. ABSOLUTE ABSTINENCE FROM TOBACCO STRESSTED Diagnoses/Impression: 1. Coronary artery disease involving [place] coronary artery of [place] heart without angina pectorisKnown LAD stenting and RCA occlusion. Abnormal CT scan likely related to known CAD and stenting History of Present Illness: Remote stenting in setting of [place] back in 2001. Haven't seen for 5+ years. Has no current c/o angina. Has noted marked SOBOE, for instance just walking across the room she is gasping for air . She is still smoking 1/[address] scanning shows ateletasis, no cancer and coronary calcification . Compliant with medical therapy Medications: Current Outpatient Prescriptions: ??? amlodipine 5 MG tablet, Take 1 [...] BASE) MCG/ACT inhaler, , Disp: , Rfl: Allergies no known allergies Past Medical History: Diagnosis Date ??? Acute MO 05/12/1992 ??? Chronic renal failure ??? Essential hypertension ??? Hyperlipidemia ??? Hypothyroidism ??? Rosacea ??? Tobacco use ??? Type II diabetes mellitus Past Surgical History: Procedure Laterality Date ??? CARDIAC STENTS 03/23/2002 LAD stent ??? SECTION x 2 ??? HYSTERECTOMY 02/10/1995 ??? PNEUMOCOCCAL VACCINE 10/2011 Social History Social History ??? Marital status: N/A Spouse name: N/A ??? Number of children: 1 ??? Years of education: N/A Occupational History ??? Retired Social History Main Topics ??? Smoking status: Current Every Day Smoker Packs/day: 0.50 ??? Smokeless tobacco: Never Used ??? Alcohol use No ??? Drug use: No ??? Sexual activity: Not Asked Other Topics Concern ??? Exercise Yes Reports yardwork for exercise. ??? Special Diet Yes diabetic diet ??? Caffeine Concern Yes drinks about 6 cups caffeine a day Social History Narrative Family History Problem Relation Age of Onset ??? Heart Disease Mother ??? Diabetes Mother ??? Stroke Father ??? Heart Disease Sister ??? Coronary artery disease Other premature ??? [place] Son 37 ??? Stroke Son (after open heart) ??? Open Heart Son ??? [place] Sister ??? Heart Sister form heart problems ??? Heart Sister from heart problems Family Status Relation Status ??? Mother at age 82 ??? Father at age 78 ??? Sister at age 70 ??? Other Other Family history is positive for: ??? Son at age 43 ??? Sister at age 55 ??? Sister at age 70 ??? Sister at age 58 Review of Systems Constitutional: Negative for recent unintentional weight gain, recent unintentional weight loss andnew or significant fatigue. HENT: Negative for new or significant hearing loss. Eyes: Negative for blurred vision and double vision. Respiratory: Positive for new or significant shortness of breath. Negative for cough and snoring. Cardiovascular: Positive for palpitations (rare).See HPI Gastrointestinal: Negative for blood in stool and melena. Genitourinary: Negative for dysuria. Musculoskeletal: Negative for myalgias and new or worsening joint stiffness/pain. Skin: Negative for rash. Neurological: Negative for tingling/numbness and focal weakness. Endo/Heme/Allergies: Negative for new or significant bruising/bleeding and polydipsia. Psychiatric/Behavioral: Negative for depression and new or significant memory loss. Filed Vitals: 06/10/16 1151 06/10/16 1152 BP: 149/58 145/57 Pulse: 65 Resp: 20 Weight: 65 kg (143 lb 6.4 oz) Height: 5' (1.524 m) Physical Exam Constitutional: She is oriented to person, place, and time. She appears well- developed and well-nourished. No distress. HENT: Nose: No mucosal edema. Mouth/Throat: Oropharynx is clear and moist and mucous membranes are normal. No oropharyngeal exudate. Neck: Neck supple. No JVD present. Carotid bruit is not present. Cardiovascular: Normal rate, regular rhythm, S1 normal, S2 normal and intact distal pulses. No extrasystoles are present. Exam reveals no gallop. No murmur heard. Pulmonary/Chest: Effort normal and breath sounds normal. No respiratory distress. Abdominal: She exhibits no mass. There is no hepatosplenomegaly. There is no tenderness. Musculoskeletal: She exhibits no deformity. Neurological: She is alert and oriented to person, place, and time. Skin: Skin is warm and dry. No erythema. Psychiatric: She has a normal mood and affect. Her behavior is normal. Thought content normal. No results found for this visit on 06/10/16. [place] Documentation Completed: Coronary Artery Disease Referring Provider: No ref. provider found PCP: DINORA MEDINA documented in this encounter Plan of Treatment Not on file documented as of this encounter Visit Diagnoses Diagnosis Coronary artery disease involving [place] coronary artery of [place] heart without angina pectoris- Primary documented in this encounter Care Teams Semiconductor Bonder Relationship Specialty Start Date End Date Dinora Medina MD [address] [place] [address] PCP - General FAMILY PRACTICE 06/04/16 08/16/19 documented as of this encounter
--- OUTSIDE RECORDS SUMMARY | 2024-02-03 11:19 | XMS_ITS | Encounter Summary ---
Author Organization [facility] Address [address] [place] [address]. [place] [address] [place] [address] Care Team Providers Care Tensile Tester Name Role Phone Raymond Medina MD Primary Care Provider [phone] Encounter Details Date Type Department Care Team (Late st Contact Info) Description 04/29/2016 Abstract [facility] [address] [place] [address] Raymond Medina MD [address] [place] [phone] Social History Tobacco Use Types Packs/Day Years [...] as of this encounter Visit Diagnoses Diagnosis Chest pain Chest pain, unspecified documented in this encounter Care Teams Tensile Tester Relationship Specialty Start Date End Date Raymond Medina MD [address] [place] [address] PCP - General FAMILY PRACTICE 06/04/16 08/16/19 documented as of this encounter
--- OUTSIDE RECORDS SUMMARY | 2024-02-03 11:19 | XMS_ITS | Encounter Summary ---
Author Organization [facility] Address [address] [place] [address]. [place] [address] [place] [address] Care Team Providers Care Quality Process Lead Name Role Phone Raymond Medina MD Primary Care Provider [phone] Encounter Details Date Type Department Care Team (Late st Contact Info) Description 06/18/2014 Abstract [facility] [address] [place], [place] [phone] Raymond Medina MD [address] [place] [address] Social History Tobacco Use Types [...] as of this encounter Visit Diagnoses Diagnosis Other screening mammogram documented in this encounter Care Teams Quality Process Lead Relationship Specialty Start Date End Date Raymond Medina MD [address] [place] [address] PCP - General FAMILY PRACTICE 06/04/16 08/16/19 documented as of this encounter
--- OUTSIDE RECORDS SUMMARY | 2024-02-03 11:19 | XMS_ITS | Encounter Summary ---
Author Organization [facility] - [facility] Address [address] [place] [address]. [place] [address] [place] [address] Care Team Providers Care Splicer Apprentice Name Role Phone Raymond Medina MD Primary Care Provider [phone] Encounter Details Date Type Department Care Team (Late st Contact Info) Description 06/08/2016 Scan [facility] [address] [place] [phone] Scanned, Documents Social History Tobacco Use Types [...] on filedocumented in this encounter Care Teams Splicer Apprentice Relationship Specialty Start Date End Date Raymond Medina MD [address] [place], [place] [address] [address] PCP - General FAMILY PRACTICE 06/04/16 08/16/19 documented as of this encounter
--- OUTSIDE RECORDS SUMMARY | 2024-02-03 11:20 | XMS_ITS | Encounter Summary ---
Author Organization [facility] Address [address] [place] [address]. [place] [address] [place] [address] Care Team Providers Care Central Office Associate Name Role Phone Raymond Medina MD Primary Care Provider [phone] Encounter Details Date Type Department Care Team (Late st Contact Info) Description 03/28/2014 Abstract [facility] [address] [place] [address] Raymond Medina MD [address] [place] [address] Social History Tobacco Use Types [...] as of this encounter Visit Diagnoses Diagnosis Nonspecific (abnormal) findings on radiological and other examination of lung field documented in this encounter Care Teams Central Office Associate Relationship Specialty Start Date End Date Raymond Medina MD [address] [place] [address] PCP - General FAMILY PRACTICE 06/04/16 08/16/19 documented as of this encounter
--- OUTSIDE RECORDS SUMMARY | 2024-02-03 11:20 | XMS_ITS | Encounter Summary ---
Author Organization [facility] - [facility] Address [address] [place] [address]. [place] [address] [place] [address] Care Team Providers Care Drafter (Cad) Electrical Name Role Phone Raymond Medina MD Primary Care Provider [phone] Encounter Details Date Type Department Care Team (Late st Contact Info) Description 02/19/2012 Abstract [facility] [address] [place] [address] Dennys Cormier, DO [address] [place] [address] Social History Tobacco Use Types Packs/Day Years [...] as of this encounter Visit Diagnoses Diagnosis Examination Unspecified examination documented in this encounter Care Teams Drafter (Cad) Electrical Relationship Specialty [place] [address] [place], [place] [address] [address] PCP - General FAMILY PRACTICE 06/04/16 08/16/19 documented as of this encounter
--- OUTSIDE RECORDS SUMMARY | 2024-02-03 11:20 | XMS_ITS | Encounter Summary ---
Author Organization [facility] Address [address] [place] [address]. [place] [address] [place] [address] Care Team Providers Care Operating Room Surgical Technologist Name Role Phone Raymond Mdeina MD Primary Care Provider [phone] Encounter Details Date Type Department Care Team (Late st Contact Info) Description 12/14/2013 Abstract [facility] [address] [place] [address] Raymond Medina MD [address] [place] [phone] Social History Tobacco Use Types Packs/Day Years [...] as of this encounter Visit Diagnoses Diagnosis Abdominal pain of other specified site documented in this encounter Care Teams Operating Room Surgical Technologist Relationship Specialty Start Date End Date Raymond Medina MD [address] [place] [address] PCP - General FAMILY PRACTICE 06/04/16 08/16/19 documented as of this encounter
--- OUTSIDE RECORDS SUMMARY | 2024-02-03 11:20 | XMS_ITS | Encounter Summary ---
Author Organization [facility] - [facility] Address [address] [place] [address]. [place] [address] [place] [address] Care Team Providers Care Stock Receiver Name Role Phone Raymond Medina MD Primary Care Provider [phone] Encounter Details Date Type Department Care Team (Late st Contact Info) Description 02/19/2012 Elisha Everett [place] [address] [place], [place] [phone] Dennys Cormier, DO [address] [place], [place] [address] Social History Tobacco Use Types Packs/Day Years [...] as of this encounter Visit Diagnoses Diagnosis Calculus of gallbladder Calculus of gallbladder without mention of cholecystitis or obstruction documented in this encounter Care Teams Stock Receiver Relationship Specialty Start Date End Date Raymond Medina MD [address] [place] [address] PCP - General FAMILY PRACTICE 06/04/16 08/16/19 documented as of this encounter
--- OUTSIDE RECORDS SUMMARY | 2024-02-03 11:20 | XMS_ITS | Encounter Summary ---
Author Organization [facility] Address [address] [place] [address]. [place], [place] [address] [place] [address] Care Team Providers Care Senior Interior Designer Name Role Phone Raymond Medina MD Primary Care Provider [phone] Encounter Details Date Type Department Care Team (Latest Contact Info) Description 01/20/2012 Abstract [facility] Social History Tobacco Use Types Packs/Day Years [...] filedocumented in this encounter Care Teams Senior Interior Designer Relationship Specialty [place] [address] [place], [place] [address] [address] PCP - General FAMILY PRACTICE 06/04/16 08/16/19 documented as of this encounter
--- OUTSIDE RECORDS SUMMARY | 2024-02-03 11:20 | XMS_ITS | Encounter Summary ---
Author Organization [facility] Address [address] [place] [address]. [place] [address] [place] [address] Care Team Providers Care Appliance Counselor Name Role Phone Raymond Medina MD Primary Care Provider [phone] Encounter Details Date Type Department Care Team (Late st Contact Info) Description 03/09/[address] [facility] [address] [facility] [place] [address] Dennys Cormier DO [address] [place] [address] Social History Tobacco Use Types Packs/Day Years Used Date Smoking Tobacco: Smoker, Current Status Unknown Comments Unknown Sex and Gender Information Value Date Recorded Sex Assigned at Not on file Legal Sex Female 6:01 PM CDT Gender Identity Not on file Sexual Orientation Not on file documented as of this encounter Last Filed Vital Signs Vital Sign Reading Time Taken Comments Blood Pressure 149/74 03/09/2012 1:15 PM DATA SME Pulse - - Temperature - - Respiratory Rate - - Oxygen Saturation - - Inhaled Oxygen Concentration - - Weight 57.6 kg (127 lb) 03/09/2012 1:15 PM DATA SME Height 152.4 cm (5') 03/09/2012 1:15 PM DATA SME Body Mass Index 24.8 03/09/2012 1:15 PM DATA SME documented in this encounter Progress Notes * DO Calixto Cornejo 03/09/2012 1:15 PM CST Reason For Visit Reason For Visit: Post-Op Visit Chief Complaint Chief Complaint: Here in follow up from routine L/S kathleen Post-Op HPI: Doing well. Denies any complaints. Deinies pain, constipation, or diarrhea. Review of Systems Focused-Female: Constitutional: Normal. ENT: normal. Cardiovascular: Normal. Respiratory: Normal. Gastrointestinal: Normal. Genitourinary: Normal. Integumentary: Normal. Musculoskeletal: Normal. Neurological: Normal. Active Problems 1. Abdominal Pain 789.00 Social History ?? Current Smoker 305.1 ?? [employer] [place] Language [place]an Current Meds 1. AmLODIPine Besylate TABS; Therapy: (Recorded:[id number]) to 2. Aspirin TABS; Therapy: (Recorded:[id number]) to 3. Lasix TABS; Therapy: (Recorded:[id number]) to 4. Lisinopril TABS; Therapy: (Recorded:[id number]) to 5. Lovastatin TABS; Therapy: (Recorded:[id number]) to 6. MetFORMIN HCl TABS; Therapy: (Recorded:[id number]) to 7. Metoprolol Tartrate TABS; Therapy: (Recorded:[id number]) to 8. NovoLOG SOLN; Therapy: (Recorded:[id number]) to 9. Potassium TABS; Therapy: (Recorded:71Qvl0964) to 10. PriLOSEC CPDR; Therapy: (Recorded:[id number]) to 11. Synthroid TABS; Therapy: (Recorded:[id number]) to Allergies 1. No Known Drug Allergies Vitals Vital Signs [Data Includes: Current Encounter] 09Mar2012 01:15PM Systolic 149 Diastolic 74 BMI Calculated 24.94 BSA Calculated 1.54 Height 5 ft Weight 127 lb Physical Exam Constitutional General appearance: Normal. Eyes Conjunctiva and lids: Normal. Pupils and irises: Normal. Ears, Nose, Mouth, and Throat External inspection of ears and nose: Normal. Otoscopic examination: Normal. Oropharynx: Normal. Pulmonary Respiratory effort: Normal. Auscultation of lungs: Normal. Cardiovascular Palpation of heart: Normal. Auscultation of heart: Normal. Examination of extremities for edema and/or varicosities: Normal. Abdomen Abdomen: Normal. Lymphatic Palpation of lymph nodes in neck: Normal. Musculoskeletal Gait and station: Normal. Digits and nails: Normal. Inspection/palpation of joints, bones, and muscles: Normal. Skin Skin and subcutaneous tissue: Normal. Neurologic Cranial nerves: Normal. Reflexes: Normal. Sensation: Normal. Psychiatric Orientation to person, place, and time: Normal. Mood and affect: Normal. Assessment 1. History of Abdominal Pain 789.00 2. History of Cholelithiasis 574.20 3. History of Appendectomy 4. History of Complete Colonoscopy 5. History of Hysterectomy V88.01 6. History of Cholecystectomy Laparoscopic 7. Current Smoker 305.1 8. [employer] Language [place] Discussion/Summary Discussion Summary: Doing very well. No complaints. Can resume activity as tolerated. Asked that she follow up should sahe have any further questions or concerns. Signatures Electronically signed by : Dennys Cormier D.O.; Mar 09 2012 3:11PM (Author) SME documented in this encounter Plan of Treatment Not on file documented as of this encounter Procedures Procedure Name Priority Date/Time Associated Diagnosis Comments COLONOSCOPY Routine DATA SME documented in this encounter Results * Colonoscopy ( DATA SME) Narrative [facility] TO EPIC CONVERSION - DATA SME Documented hx of procedure Procedure Note Brian Hopper MD - 12/19/2017 Documented hx of procedure us Generic Conversion Md [facility] GI PROCEDURE ORDERABLES Final Result [facility] TO EPIC CONVERSION documented in this encounter Visit Diagnoses Not on filedocumented in this encounter Care Teams Appliance Counselor Relationship Specialty Start Date End Date Raymond Medina MD [address] [place] [address] PCP - General FAMILY PRACTICE 06/04/16 08/16/19 documented as of this encounter
--- OUTSIDE RECORDS SUMMARY | 2024-02-03 11:20 | XMS_ITS | Encounter Summary ---
Author Organization [facility] Address [address] [place] [address]. [place] [address] [place] [address] Care Team Providers Care Lock Stitch Channeler Name Role Phone Raymond Medina MD Primary Care Provider [phone] Encounter Details Date Type Department Care Team (Late st Contact Info) Description 01/20/2012 Abstract [facility] [address] [place] [address] Raymond Medina MD [address] [place] [phone] Social History Tobacco Use Types Packs/Day Years [...] this encounter Visit Diagnoses Diagnosis Abdominal pain Abdominal pain, unspecified site documented in this encounter Care Teams Lock Stitch Channeler Relationship Specialty Start Date End Date Raymond Medina MD [address] [place] [address] PCP - General FAMILY PRACTICE 06/04/16 08/16/19 documented as of this encounter
--- OUTSIDE RECORDS SUMMARY | 2024-02-03 11:20 | XMS_ITS | Encounter Summary ---
Author Organization [facility] - [facility] Address [address] [place] [address]. [place], [place] [address] [place] [address] Care Team Providers Care Final Finisher Forging Dies Name Role Phone Raymond Medina MD Primary Care Provider [phone] Encounter Details Date Type Department Care Team (Latest Contact Info) Description 01/25/2012 Abstract [facility] Social History Tobacco Use Types [...] on filedocumented in this encounter Care Teams Final Finisher Forging Dies Relationship Specialty [place] [address] [place], [place] [address] [address] PCP - General FAMILY PRACTICE 06/04/16 08/16/19 documented as of this encounter
--- OUTSIDE RECORDS SUMMARY | 2024-02-03 11:20 | XMS_ITS | Encounter Summary ---
Author Organization [facility] Address [address] [place] [address]. [place] [address] [place] [address] Care Team Providers Care Line Tender Name Role Phone Raymond Medina MD Primary Care Provider [phone] Encounter Details Date Type Department Care Team (Late st Contact Info) Description 05/22/2013 Abstract [facility] [address] [place], [place] [id number] Raymond Medina MD [address] [place] [address] Social History Tobacco Use Types Packs/Day [...] mammogram documented in this encounter Care Teams Line Tender Relationship Specialty Start Date End Date Raymond Medina MD [address] [place] [address] PCP - General FAMILY PRACTICE 06/04/16 08/16/19 documented as of this encounter
--- OUTSIDE RECORDS SUMMARY | 2024-02-03 11:20 | XMS_ITS | Encounter Summary ---
Author Organization [facility] Address [address] [place] [address]. [place] [address] [place] [address] Care Team Providers Care Plumbing Drafter Name Role Phone Raymond Medina MD Primary Care Provider [phone] Encounter Details Date Type Department Care Team (Late st Contact Info) Description 01/26/2012 Abstract [facility] [address], [address]nd [place] [address] Dennys Cormier DO [address] [place] [address] Social History Tobacco Use Types Packs/Day Years [...] Reading Time Taken Comments Blood Pressure 149/74 01/26/2012 9:04 AM TRUST ADVISOR Pulse - - Temperature - - Respiratory Rate - - Oxygen Saturation - - Inhaled Oxygen Concentration - - Weight 57.6 kg (127 lb) 01/26/2012 9:04 AM TRUST ADVISOR Height 152.4 cm (5') 01/26/2012 9:04 AM TRUST ADVISOR Body Mass Index 24.8 01/26/2012 9:04 AM TRUST ADVISOR documented in this encounter Progress Notes * DO Calixto Cornejo 01/26/2012 8:45 AM CST Past Medical History 1. History of Abdominal Pain 789.00 2. History of Cholelithiasis 574.20 Surgical History 1. History of Appendectomy 2. History of Complete Colonoscopy 3. History of Hysterectomy V88.01 Social History ?? Current Smoker 305.1 ?? [place] Language Armenian Current Meds 1. AmLODIPine Besylate TABS; Therapy: (Recorded:26Jan2012) to Recorded; Dispense: 0 Days ; #: Sufficient TABS; Refill: 0; Record; Last Updated By: Kellie Bowles 2. Aspirin TABS; Therapy: (Recorded:26Jan2012) to Recorded; Dispense: 0 Days ; #: Sufficient TABS; Refill: 0; Record; Last Updated By: Kellie Bowles 3. Lasix TABS; Therapy: (Recorded:26Jan2012) to Recorded; Dispense: 0 Days ; #: Sufficient TABS; Refill: 0; Record; Last Updated By: Kellie Bowles 4. Lisinopril TABS; Therapy: (Recorded:26Jan2012) to Recorded; Dispense: 0 Days ; #: Sufficient TABS; Refill: 0; Record; Last Updated By: Kellie Bowles 5. Lovastatin TABS; Therapy: (Recorded:26Jan2012) to Recorded; Dispense: 0 Days ; #: Sufficient TABS; Refill: 0; Record; Last Updated By: Kellie Bowles 6. MetFORMIN HCl TABS; Therapy: (Recorded:26Jan2012) to Recorded; Dispense: 0 Days ; #: Sufficient TABS; Refill: 0; Record; Last Updated By: Kellie Bowles 7. Metoprolol Tartrate TABS; Therapy: (Recorded:26Jan2012) to Recorded; Dispense: 0 Days ; #: Sufficient TABS; Refill: 0; Record; Last Updated By: Kellie Bowles 8. NovoLOG SOLN; Therapy: (Recorded:26Jan2012) to Recorded; Dispense: 0 Days ; #: Sufficient SOLN; Refill: 0; Record; Last Updated By: Kellie Bowles 9. Potassium TABS; Therapy: (Recorded:26Jan2012) to Recorded; Dispense: 0 Days ; #: Sufficient TABS; Refill: 0; Record; Last Updated By: Kellie Bowles 10. PriLOSEC CPDR; Therapy: (Recorded:26Jan2012) to Recorded; Dispense: 0 Days ; #: Sufficient CPDR; Refill: 0; Record; Last Updated By: Kellie Bowles 11. Synthroid TABS; Therapy: (Recorded:[id number]) to Recorded; Dispense: 0 Days ; #: Sufficient TABS; Refill: 0; Record; Last Updated By: Kellie Bowles Allergies 1. No Known Allergies No Known Allergies Vitals Vital Signs [Data Includes: Current Encounter] 26Jan2012 09:04AM Systolic 149 Diastolic 74 BMI Calculated 24.94 BSA Calculated 1.54 Height 5 ft Weight 127 lb Assessment 1. History of Abdominal Pain 789.00 2. History of Cholelithiasis 574.20 3. History of Appendectomy 4. History of Complete Colonoscopy 5. History of Hysterectomy V88.01 6. Current Smoker 305.1 7. [place] Language Armenian T ADVISOR documented in this encounter Plan of Treatment Not on file documented as of this encounter Visit Diagnoses Not on filedocumented in this encounter Care Teams Plumbing Drafter Relationship Specialty Start Date End Date Raymond Medina MD [address] [address] PCP - General FAMILY PRACTICE 06/04/16 08/16/19 documented as of this encounter
--- OUTSIDE RECORDS SUMMARY | 2024-02-03 11:20 | XMS_ITS | Encounter Summary ---
Author Organization [facility] - [facility] Address [address] [place] [address]. [place] [address] [place] [address] Care Team Providers Care Mineral Economist Name Role Phone Raymond Medina MD Primary Care Provider [phone] Encounter Details Date Type Department Care Team (Late st Contact Info) Description 02/19/2012 Abstract [facility] [facility] 2nd [place] [address] Dennys Cormier, DO [address] [place] [address] Social History Tobacco Use Types Packs/Day Years [...] on filedocumented in this encounter Care Teams Mineral Economist Relationship Specialty Start Date End Date Raymond Medina MD [facility] [place] [address] PCP - General FAMILY PRACTICE 06/04/16 08/16/19 documented as of this encounter
--- OUTSIDE RECORDS SUMMARY | 2024-02-03 11:21 | XMS_ITS | Encounter Summary ---
Author Organization [facility] Address [address] [place] [address]. [place] [address] [place] [address] Care Team Providers Care Trim Mounter Name Role Phone Raymond Medina MD Primary Care Provider [phone] Jessee Gregg MD Primary Care Provider [phone] Encounter Details Date Type Department Care Team (Late st Contact Info) Description 10/30/2011 Abstract [facility] [address] [place] [address] New Referring, Provider Social History Tobacco Use Types Packs/Day Years [...] on filedocumented in this encounter Care Teams Trim Mounter Relationship Specialty Start Date End Date Raymond Medina MD [address] [place] [phone] PCP - General FAMILY PRACTICE 06/04/16 08/16/19 [place] [address] [place] [address] PCP - General FAMILY PRACTICE 08/17/19 06/15/21 documented as of this encounter
--- OUTSIDE RECORDS SUMMARY | 2024-02-03 11:21 | XMS_ITS | Encounter Summary ---
Author Organization [facility] Address [address] [place] [address]. [place] [address] [place] [address] Care Team Providers Care Powder Operator Name Role Phone Unavailable Primary Care Provider Unavailabl e Encounter Details Date Type Department Care Team (Late st Contact Info) Description 10/27/2011 [facility] [address] [place] [address] , Brian Araujo MD Social History Tobacco Use Types Packs/Day Years Used Date Smoking Tobacco: Never Assessed Comments Unknown Sex and Gender Information Value Date Recorded Sex Assigned at Not on file Legal Sex Female 6:01 PM CDT Gender Identity Not on file Sexual Orientation Not on file documented as of this encounter Plan of Treatment Not on file documented as of this encounter Visit Diagnoses Not on filedocumented in this encounter
--- OUTSIDE RECORDS SUMMARY | 2024-02-03 11:21 | XMS_ITS | Encounter Summary ---
Author Organization [facility] - [facility] Address [address] [place] [address]. [place] [address] [place] [address] Care Team Providers Care Renderer Name Role Phone Raymond Medina MD Primary Care Provider [phone] Encounter Details Date Type Department Care Team (Late st Contact Info) Description 10/30/2011 Abstract [facility] [address] [place] [address] Edgardo Ruffin MD [address] [place] [address], [address] [place] [address] Social History Tobacco Use Types Packs/Day Years [...] this encounter Visit Diagnoses Diagnosis Encounter for therapeutic drug monitoring documented in this encounter Care Teams Renderer Relationship Specialty Start Date End Date Raymond Medina MD [address] [place], [place] [address] [address] PCP - General FAMILY PRACTICE 06/04/16 08/16/19 documented as of this encounter
--- OUTSIDE RECORDS SUMMARY | 2024-02-03 11:21 | XMS_ITS | Encounter Summary ---
Author Organization [facility] Address [address] [place] [address]. [place] [address] [place] [address] Care Team Providers Care Welding Machine Operator Submerged Arc Name Role Phone Unavailable Primary Care Provider Unavailabl e Encounter Details Date Type Department Care Team (Late st Contact Info) Description 11/05/2011 Abstract [facility] [address] [place] [address] , Brian Araujo MD Social History Tobacco [...]
--- OUTSIDE RECORDS SUMMARY | 2024-02-03 11:21 | XMS_ITS | Encounter Summary ---
Author Organization [facility] - [facility] Address [address] [place] [address]. [place] [address] [place] [address] Care Team Providers Care Sewer Tapper Name Role Phone Raymond Medina MD Primary Care Provider [phone] Encounter Details Date Type Department Care Team (Late st Contact Info) Description 10/27/[address] 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
--- OUTSIDE RECORDS SUMMARY | 2024-02-03 11:21 | XMS_ITS | Encounter Summary ---
Author Organization [facility] Address [address] [place] [address]. [place] [address] [place] [address] Care Team Providers Care Associate Team Physician Name Role Phone Unavailable Primary Care Provider Unavailabl e Encounter Details Date Type Department Care Team (Late st Contact Info) Description 05/26/2011 Abstract [facility] [address] [place] [address] , Brian Araujo MD Social History Tobacco [...] Procedure Name Priority Date/Time Associated Diagnosis Comments LIPID PANEL Routine 05/26/2011 12:00 AM CDT documented in this encounter Results * LIPID PANEL (05/26/2011 12:00 AM CDT) TRIGLYCERIDES 122 0 - 150 mg/dl MEDINFORMATIX TO EPIC CONVERSION CHOLESTEROL 128 0 - 200 mg/dl MEDINFORMATIX TO EPIC CONVERSION HDL 43 40 - 59 mg/dl MEDINFORMATIX TO EPIC CONVERSION LDL CONVERSION 61 0 - 100 mg/dl MEDINFORMATIX TO EPIC CONVERSION CHOL/HDL RATIO 3.0 <4.0 (Calc) MEDINFORMATIX TO EPIC CONVERSION NON HDL CHOLESTEROL 85 0 - 130 mg/dL MEDINFORMATIX TO EPIC CONVERSION 05/26/2011 05/26/2011 Narrative MEDINFORMATIX TO EPIC CONVERSION - 10/29/2011 3:14 PM CDT Reviewed by EDUARDO Oct 29 2011 ??3:18:00:000PM us Generic Conversion Md [facility] Final R esult MEDINFORMATIX TO EPIC CONVERSION documented in this encounter Visit Diagnoses Not on filedocumented in this encounter
--- OUTSIDE RECORDS SUMMARY | 2024-02-03 11:21 | XMS_ITS | Encounter Summary ---
Author Organization [facility] Address [address] [place] [address]. [place] [address] [place] [address] Care Team Providers Care Brush Washer Name Role Phone Unavailable Primary Care Provider Unavailabl e Encounter Details Date Type Department Care Team (Late st Contact Info) Description 11/05/2011 [facility] [address] [place] [address] , Brian Araujo MD Social History Tobacco [...]
--- OUTSIDE RECORDS SUMMARY | 2024-02-03 11:21 | XMS_ITS | Encounter Summary ---
Author Organization [facility] Address [address] [place] [address]. [place] [address] [place] [address] Care Team Providers Care Owner Spa Director Name Role Phone Unavailable Primary Care Provider Unavailabl e Encounter Details Date Type Department Care Team (Late st Contact Info) Description 10/27/2011 Abstract [facility] [address] [place] [address] , Brian Araujo MD Social History Tobacco [...] Procedure Name Priority Date/Time Associated Diagnosis Comments EXTERNAL EJECTION FRACTION Routine 10/27/2011 12:00 AM CDT documented in this encounter Results * EXTERNAL EJECTION FRACTION (10/27/2011 12:00 AM CDT) EJECTION FRACTION [facility] Comment: back projection of activity within lover and bowel may account for the mild reversible defect in the inferolateral wall. ?? However the possibility of ischemia in this location cannot be entirely excluded. ??Gated imaging reveals decreased wall thickening in the inferolateral wall with no focal wall motion abnormalities. ??The left ventricular ejection fraction equals 75%. Anatomical Region Laterality Modality Other 10/27/2011 10/27/2011 Narrative 10/27/2011 12:00 AM CDT Cardiolite stress test, Raymond Medina M.D. us Generic Conversion Md [facility] Final R esult documented in this encounter Visit Diagnoses Not on filedocumented in this encounter
--- OUTSIDE RECORDS SUMMARY | 2024-02-03 11:21 | XMS_ITS | Encounter Summary ---
Author Organization [facility] Address [address] [place] [address]. [place] [address] [place] [address] Care Team Providers Care Underwater Photographer Name Role Phone Unavailable Primary Care Provider Unavailabl e Encounter Details Date Type Department Care Team (Late st Contact Info) Description 11/13/2011 Abstract [facility] [address] [place] [address] , Brian Araujo MD Social History Tobacco [...]
--- OUTSIDE RECORDS SUMMARY | 2024-02-03 11:21 | XMS_ITS | Encounter Summary ---
Author Organization [facility] Address [address] [place] [address]. [place] [address] [place] [address] Care Team Providers Care Residential Property Tax Appraiser Name Role Phone Raymond Medina MD Primary Care Provider [phone] Encounter Details Date Type Department Care Team (Late st Contact Info) Description 09/21/2011 Abstract [facility] [address] [place] [id number] Raymond Medina MD [address] [place] [address] Social History Tobacco Use Types Packs/Day [...] mammogram documented in this encounter Care Teams Residential Property Tax Appraiser Relationship Specialty Start Date End Date Raymond Medina MD [address] [place] [address] PCP - General FAMILY PRACTICE 06/04/16 08/16/19 documented as of this encounter
--- OUTSIDE RECORDS SUMMARY | 2024-02-03 11:21 | XMS_ITS | Encounter Summary ---
Author Organization [facility] Address [address] [place] [address]. [place] [address] [place] [address] Care Team Providers Care Paleology Professor Name Role Phone Unavailable Primary Care Provider Unavailabl e Encounter Details Date Type Department Care Team (Late st Contact Info) Description 10/30/2011 Abstract [facility] [address] [place] [address] , Generic ConversionMD Social History Tobacco Use Types Packs/Day Years Used Date Smoking Tobacco: Smoker, Current Status Unknown Comments Unknown Sex and Gender Information Value Date Recorded Sex Assigned at Not on file Legal Sex Female 6:01 PM CDT Gender Identity Not on file Sexual Orientation Not on file documented as of this encounter Last Filed Vital Signs Vital Sign Reading Time Taken Comments Blood Pressure 122/52 10/30/2011 10:58 AM CDT Pulse 61 10/30/2011 10:57 AM CDT Temperature - - Respiratory Rate 20 10/30/2011 10:57 AM CDT Oxygen Saturation - - Inhaled Oxygen Concentration - - Weight 60.3 kg (133 lb) 10/30/2011 10:57 AM CDT Height 154.3 cm (5' 0.75 ) 10/30/2011 10:57 AM C DT Body Mass Index 25.34 10/30/2011 10:57 AM CDT documented in this encounter Plan of Treatment Not on file documented as of this encounter Procedures Procedure Name Priority Date/Time Associated Diagnosis Comments CBC,CONVERSION Routine 10/30/2011 11:57 AM CDT BASIC METABOLIC PANEL Routine 10/30/2011 11:57 AM CDT documented in this encounter Results * (ABNORMAL) CBC,CONVERSION (10/30/2011 11:57 AM CDT) WBC 11.27(H) 4.50 - 10.80 K/cumm MEDINFORMATIX TO EPIC CONVERSION RBC 4.74 4.10 - 5.40 M/cumm MEDINFORMATIX TO EPIC CONVERSION HGB 15.4 12.0 - 16.0 gm/dL MEDINFORMATIX TO EPIC CONVERSION HCT 46.7 36.0 - 47.0 % MEDINFORMATIX TO EPIC CONVERSION MCV 98.5 78.0 - 100.0 fL MEDINFORMATIX TO EPIC CONVERSION MCH 32.5(H) 27.0 - 31.0 pg MEDINFORMATIX TO EPIC CONVERSION MCHC 33.0 33.0 - 36.0 gm/dL MEDINFORMATIX TO EPIC CONVERSION RDW 13.0 11.5 - 14.5 % MEDINFORMATIX TO EPIC CONVERSION PLATELET COUNT 284 150 - 350 K/cumm MEDINFORMATIX TO EPIC CONVERSION MPV 10.9(H) 7.4 - 10.4 fL MEDINFORMATIX TO EPIC CONVERSION 10/30/2011 11:5 7 AM CDT 10/30/2011 11:57 AM CDT Narrative MEDINFORMATIX TO EPIC CONVERSION - 10/30/2011 12:16 PM CDT Reviewed by JUD Oct 30 2011 ??2:17:00:000PM us Generic Conversion Md [facility] Final R esult MEDINFORMATIX TO EPIC CONVERSION * (ABNORMAL) BASIC METABOLIC PANEL (10/30/2011 11:57 AM CDT) SODIUM S/P/B 143 135 - 147 mmol/L MEDINFORMATIX TO EPIC CONVERSION POTASSIUM S/P/B 3.8 3.5 - 5.0 mmol/L MEDINFORMATIX TO EPIC CONVERSION CHLORIDE S/P/B 103 96 - 107 mmol/L MEDINFORMATIX TO EPIC CONVERSION CO2 27 24 - 32 mmol/L MEDINFORMATIX TO EPIC CONVERSION GLUCOSE 221(H) 70 - 109 mg/dL MEDINFORMATIX TO EPIC CONVERSION BUN 41(H) 10 - 25 mg/dL MEDINFORMATIX TO EPIC CONVERSION CREATININE S/P/B 1.2(H) 0.6 - 1.1 mg/dL MEDINFORMATIX TO EPIC CONVERSION CALCIUM S/P/B 9.4 8.4 - 10.5 mg/dL MEDINFORMATIX TO EPIC CONVERSION ANION GAP 13 4 - 16 MEDINFORMA TIX TO EPIC CONVERSION OSMOLALITY (S/P/B) 302(H) 262 - 286 mOsm/kg MEDINFORMATIX TO EPIC CONVERSION EGFR NON-AFR. AMER. 44(L) >60 mL/min/1. 73sq.m MEDINFORMATIX TO EPIC CONVERSION EGFR AFR. AMER. 54(L) >60 mL/min/1. 73sq.m MEDINFORMATIX TO EPIC CONVERSION 10/30/2011 11:5 7 AM CDT 10/30/2011 11:57 AM CDT Narrative MEDINFORMATIX TO EPIC CONVERSION - 10/30/2011 12:48 PM CDT Reviewed by JUD Oct 30 2011 ??2:17:00:000PM us Generic Conversion Md [facility] Final R esult MEDINFORMATIX TO EPIC CONVERSION documented in this encounter Visit Diagnoses Not on filedocumented in this encounter
--- OUTSIDE RECORDS SUMMARY | 2024-02-03 11:22 | XMS_ITS | Encounter Summary ---
Author Organization [facility] - [facility] Address [address] [place] [address]. [place] [address] [place] [address] Care Team Providers Care Multimedia Editor Name Role Phone Raymond Medina MD Primary Care Provider [phone] Encounter Details Date Type Department Care Team (Late st Contact Info) Description 03/23/2002 Abstract [facility] Heating Fixture Tender [address] [place] [address] Edgardo Ruffin MD [address] [place] [address], [address] [place] [address] Social History Tobacco Use Types Packs/Day [...] on filedocumented in this encounter Care Teams Multimedia Editor Relationship Specialty Start Date End Date Raymond Medina MD [address] [place], [place] [address] [address] PCP - General FAMILY PRACTICE 06/04/16 08/16/19 documented as of this encounter
--- OUTSIDE RECORDS SUMMARY | 2024-02-03 11:22 | XMS_ITS | Encounter Summary ---
Author Organization [facility] - [facility] Address [address] [place] [address]. [place] [address] [place] [address] Care Team Providers Care Education Associate Name Role Phone Raymond Medina MD Primary Care Provider [phone] Encounter Details Date Type Department Care Team (Late st Contact Info) Description 11/25/2006 Abstract [facility] [address] [place], [place] [id number] Raymond Medina MD [address] [place] [address] Social History Tobacco Use Types Packs/Day [...] on filedocumented in this encounter Care Teams Education Associate Relationship Specialty Start Date End Date Raymond Medina MD [address] [place] [address] PCP - General FAMILY PRACTICE 06/04/16 08/16/19 documented as of this encounter
--- OUTSIDE RECORDS SUMMARY | 2024-02-03 11:22 | XMS_ITS | Encounter Summary ---
Author Organization [facility] Address [address] [place] [address]. [place] [address] [place] [address] Care Team Providers Care Creative Coordinator Name Role Phone Raymond Medina MD Primary Care Provider [phone] Encounter Details Date Type Department Care Team (Late st Contact Info) Description 03/22/2002 Abstract [facility] [address] [place] [address] Edgardo Ruffin MD [address] [place] [address], [address] [place] [address] Social History Tobacco Use Types [...] on filedocumented in this encounter Care Teams Creative Coordinator Relationship Specialty Start Date End Date Raymond Medina MD [address] [place], [place] [address] [address] PCP - General FAMILY PRACTICE 06/04/16 08/16/19 documented as of this encounter
--- OUTSIDE RECORDS SUMMARY | 2024-02-03 11:22 | XMS_ITS | Encounter Summary ---
Author Organization [facility] Address [address] [place] [address]. [place] [address] [place] [address] Care Team Providers Care Production Maintenance Mechanic Name Role Phone Raymond Medina MD Primary Care Provider [phone] Encounter Details Date Type Department Care Team (Late st Contact Info) Description 08/20/2009 Abstract [facility] [address] [place], [place] [id number] Raymond Medina MD [address] [place] [address] Social History Tobacco Use Types Packs/Day [...] as of this encounter Visit Diagnoses Diagnosis Essential hypertension Unspecified essential hypertension documented in this encounter Care Teams Production Maintenance Mechanic Relationship Specialty Start Date End Date Raymond Medina MD [address] [place] [address] PCP - General FAMILY PRACTICE 06/04/16 08/16/19 documented as of this encounter
--- OUTSIDE RECORDS SUMMARY | 2024-02-03 11:22 | XMS_ITS | Encounter Summary ---
Author Organization [facility] - [facility] Address [address] [place] [address]. [place] [address] [place] [address] Care Team Providers Care Used Equipment Sales Representative Name Role Phone Raymond Medina MD Primary Care Provider [phone] Encounter Details Date Type Department Care Team (Late st Contact Info) Description 10/27/1998 Abstract [facility] [address] [place] [address] , Generic ConversionMD Social History Tobacco Use [...] on filedocumented in this encounter Care Teams Used Equipment Sales Representative Relationship Specialty Start Date End Date Raymond Medina MD [address] [place] [address] PCP - General FAMILY PRACTICE 06/04/16 08/16/19 documented as of this encounter
--- OUTSIDE RECORDS SUMMARY | 2024-02-03 11:22 | XMS_ITS | Encounter Summary ---
Author Organization [facility] Address [address] [place] [address]. [place] [address] [place] [address] Care Team Providers Care Gas Burner Operator Name Role Phone Ramyond Medina MD Primary Care Provider [phone] Encounter Details Date Type Department Care Team (Late st Contact Info) Description 03/25/1999 Abstract [facility] [address] [place] [address] , Generic ConversionMD Social History Tobacco Use [...] on filedocumented in this encounter Care Teams Gas Burner Operator Relationship Specialty Start Date End Date Raymond Medina MD [address] [place] [address] PCP - General FAMILY PRACTICE 06/04/16 08/16/19 documented as of this encounter
--- OUTSIDE RECORDS SUMMARY | 2024-02-03 11:22 | XMS_ITS | Encounter Summary ---
Author Organization [facility] - [facility] Address [address] [place] [address]. [place] [address] [place] [address] Care Team Providers Care Headend Technician Name Role Phone Raymond Medina MD Primary Care Provider [phone] Encounter Details Date Type Department Care Team (Late st Contact Info) Description 11/19/1998 Abstract [facility] [address] [place] [address] , Generic ConversionMD Social History Tobacco Use [...] on filedocumented in this encounter Care Teams Headend Technician Relationship Specialty Start Date End Date Raymond Medina MD [address] [place] [address] PCP - General FAMILY PRACTICE 06/04/16 08/16/19 documented as of this encounter
--- OUTSIDE RECORDS SUMMARY | 2024-02-03 11:22 | XMS_ITS | Encounter Summary ---
Author Organization [facility] - [facility] Address [address] [place] [address]. [place] [address] [place] [address] Care Team Providers Care Specialized Developer Name Role Phone Raymond Medina MD Primary Care Provider [phone] Encounter Details Date Type Department Care Team (Late st Contact Info) Description 04/01/1999 Abstract [facility] [address] [place] [address] , Generic ConversionMD Social History Tobacco Use [...] on filedocumented in this encounter Care Teams Specialized Developer Relationship Specialty Start Date End Date Raymond Medina MD [address] [place] [address] PCP - General FAMILY PRACTICE 06/04/16 08/16/19 documented as of this encounter
--- OUTSIDE RECORDS SUMMARY | 2024-02-03 11:22 | XMS_ITS | Encounter Summary ---
Author Organization [facility] - [facility] Address [address] [place] [address]. [place] [address] [place] [address] Care Team Providers Care Title Agent Name Role Phone Raymond Medina MD Primary Care Provider [phone] Encounter Details Date Type Department Care Team (Late st Contact Info) Description 05/28/[address] [place] [address] [place] [address] Oumar Cornejo MD [address] [place] [address] Social History Tobacco Use Types [...] as of this encounter Visit Diagnoses Diagnosis Hemorrhage of rectum and anus documented in this encounter Care Teams Title Agent Relationship Specialty Start Date End Date Raymond Medina MD [address] [place] [address] PCP - General FAMILY PRACTICE 06/04/16 08/16/19 documented as of this encounter
--- OUTSIDE RECORDS SUMMARY | 2024-02-03 11:22 | XMS_ITS | Encounter Summary ---
Author Organization [facility] - [facility] Address [address] [place] [address]. [place] [address] [place] [address] Care Team Providers Care Water Vessel Captain Name Role Phone Raymond Medina MD Primary Care Provider [phone] Encounter Details Date Type Department Care Team (Late st Contact Info) Description 06/25/2000 Abstract [facility] [address] [place] [address] , Generic Conversion, Social History Tobacco Use Types Packs/Day Years [...] on filedocumented in this encounter Care Teams Water Vessel Captain Relationship Specialty Start Date End Date Raymond Medina MD [address] [place] [address] PCP - General FAMILY PRACTICE 06/04/16 08/16/19 documented as of this encounter
--- OUTSIDE RECORDS SUMMARY | 2024-02-03 11:22 | XMS_ITS | Encounter Summary ---
Author Organization [facility] - [facility] Address [address] [place] [address]. [place] [address] [place] [address] Care Team Providers Care Kindergarten Assistant Name Role Phone Raymond Medina MD Primary Care Provider [phone] Encounter Details Date Type Department Care Team (Late st Contact Info) Description 11/19/2006 Abstract [facility] [address] [place], [place] [id number] Raymond Medina MD [address] [place] [address] Social History Tobacco Use Types Packs/Day [...] on filedocumented in this encounter Care Teams Kindergarten Assistant Relationship Specialty Start Date End Date Raymond Medina MD [address] [place] [address] PCP - General FAMILY PRACTICE 06/04/16 08/16/19 documented as of this encounter
--- OUTSIDE RECORDS SUMMARY | 2024-02-03 11:22 | XMS_ITS | Encounter Summary ---
Author Organization [facility] - [facility] Address [address] [place] [address]. [place] [address] [place] [address] Care Team Providers Care Commercial Mortgage Broker Name Role Phone Raymond Medina MD Primary Care Provider [phone] Encounter Details Date Type Department Care Team (Late st Contact Info) Description 06/08/2000 Abstract [facility] [address] [place] [address] , Generic ConversionMD Social History Tobacco Use [...] on filedocumented in this encounter Care Teams Commercial Mortgage Broker Relationship Specialty Start Date End Date Raymond Medina MD [address] [place] [address] PCP - General FAMILY PRACTICE 06/04/16 08/16/19 documented as of this encounter
--- OUTSIDE RECORDS SUMMARY | 2024-02-03 11:22 | XMS_ITS | Encounter Summary ---
Author Organization [facility] - [facility] Address [address] [place] [address]. [place] [address] [place] [address] Care Team Providers Care College Basketball Coach Name Role Phone Raymond Medina MD Primary Care Provider [phone] Encounter Details Date Type Department Care Team (Late st Contact Info) Description 03/18/2002 Abstract [facility] [address] [place] [address] , Generic Conversion, Social History Tobacco Use [...] on filedocumented in this encounter Care Teams College Basketball Coach Relationship Specialty Start Date End Date Raymond Medina MD [address] [place] [address] PCP - General FAMILY PRACTICE 06/04/16 08/16/19 documented as of this encounter
--- OUTSIDE RECORDS SUMMARY | 2024-02-03 11:22 | XMS_ITS | Encounter Summary ---
Author Organization [facility] - [facility] Address [address] [place] [address]. [place] [address] [place] [address] Care Team Providers Care Tree Thinner Name Role Phone Raymond Medina MD Primary Care Provider [phone] Encounter Details Date Type Department Care Team (Late st Contact Info) Description 11/08/1998 Abstract [facility] [address] [place] [address] , Generic ConversionMD Social History Tobacco Use [...] on filedocumented in this encounter Care Teams Tree Thinner Relationship Specialty Start Date End Date Raymond Medina MD [address] [place] [address] PCP - General FAMILY PRACTICE 06/04/16 08/16/19 documented as of this encounter
--- OUTSIDE RECORDS SUMMARY | 2024-02-03 11:22 | XMS_ITS | Encounter Summary ---
Author Organization [facility] - [facility] Address [address] [place] [address]. [place] [address] [place] [address] Care Team Providers Care Wallpaper Cleaner Name Role Phone Raymond Medina MD Primary Care Provider [phone] Encounter Details Date Type Department Care Team (Late st Contact Info) Description 10/17/1998 Abstract [facility] CON[facility] [address] [place] [address] , Generic ConversionMD Social History Tobacco Use [...] on filedocumented in this encounter Care Teams Wallpaper Cleaner Relationship Specialty Start Date End Date Raymond Meidna MD [address] [place] [address] PCP - General FAMILY PRACTICE 06/04/16 08/16/19 documented as of this encounter
--- OUTSIDE RECORDS SUMMARY | 2024-02-03 11:22 | XMS_ITS | Encounter Summary ---
Author Organization [facility] - [facility] Address [address] [place] [address]. [place] [address] [place] [address] Care Team Providers Care Business Economist Name Role Phone Raymond Medina MD Primary Care Provider [phone] Encounter Details Date Type Department Care Team (Late st Contact Info) Description 08/26/2009 Abstract [facility] [address], [place] [id number] Raymond Medina MD [address] [place] [address] Social History Tobacco Use Types Packs/Day [...] as of this encounter Visit Diagnoses Diagnosis Syncope and collapse documented in this encounter Care Teams Business Economist Relationship Specialty Start Date End Date Raymond Medina MD [address] [place] [address] PCP - General FAMILY PRACTICE 06/04/16 08/16/19 documented as of this encounter
--- OUTSIDE RECORDS SUMMARY | 2024-02-03 11:23 | XMS_ITS | Encounter Summary ---
Author Organization [facility] - [facility] Address [address] [place] [address]. [place] [address] [place] [address] Care Team Providers Care Delivery Driver Name Role Phone Raymond Medina MD Primary Care Provider [phone] Encounter Details Date Type Department Care Team (Late st Contact Info) Description 01/15/1998 Abstract [facility] [address] [place] [address] , Generic ConversionMD Social History Tobacco Use [...] on filedocumented in this encounter Care Teams Delivery Driver Relationship Specialty Start Date End Date Raymond Medina MD [address] [place] [address] PCP - General FAMILY PRACTICE 06/04/16 08/16/19 documented as of this encounter
--- OUTSIDE RECORDS SUMMARY | 2024-02-03 11:23 | XMS_ITS | Encounter Summary ---
Author Organization [facility] - [facility] Address [address] [place] [address]. [place] [address] [place] [address] Care Team Providers Care Recoating Machine Operator Name Role Phone Raymond Medina MD Primary Care Provider [phone] Encounter Details Date Type Department Care Team (Late st Contact Info) Description 06/13/1997 Abstract [facility] [address] [place] [address] , Generic ConversionMD Social History Tobacco Use [...] on filedocumented in this encounter Care Teams Recoating Machine Operator Relationship Specialty Start Date End Date Raymond Medina MD [address] [place] [address] PCP - General FAMILY PRACTICE 06/04/16 08/16/19 documented as of this encounter
--- OUTSIDE RECORDS SUMMARY | 2024-02-03 11:23 | XMS_ITS | Encounter Summary ---
Author Organization [facility] - [facility] Address [address] [place] [address]. [place] [address] [place] [address] Care Team Providers Care Inker Name Role Phone Raymond Medina MD Primary Care Provider [phone] Encounter Details Date Type Department Care Team (Late st Contact Info) Description 03/12/1997 Abstract [facility] CONVERSION [address] [place] [address] , Generic ConversionMD Social History Tobacco Use [...] on filedocumented in this encounter Care Teams Inker Relationship Specialty Start Date End Date Raymond Medina MD [address] [place] [address] PCP - General FAMILY PRACTICE 06/04/16 08/16/19 documented as of this encounter
--- OUTSIDE RECORDS SUMMARY | 2024-02-03 11:23 | XMS_ITS | Encounter Summary ---
Author Organization [facility] - [facility] Address [address] [place] [address]. [place] [address] [place] [address] Care Team Providers Care Lunchroom Monitor Name Role Phone Raymond Medina MD Primary Care Provider [phone] Encounter Details Date Type Department Care Team (Late st Contact Info) Description 02/28/1997 Abstract [facility] CON[facility] [address] [place] [address] , Generic ConversionMD Social History Tobacco Use [...] on filedocumented in this encounter Care Teams Lunchroom Monitor Relationship Specialty Start Date End Date Raymond Medina MD [address] [place] [address] PCP - General FAMILY PRACTICE 06/04/16 08/16/19 documented as of this encounter
--- OUTSIDE RECORDS SUMMARY | 2024-02-03 11:23 | XMS_ITS | Encounter Summary ---
Author Organization [facility] - [facility] Address [address] [place] [address]. [place] [address] [place] [address] Care Team Providers Care Television Production Assistant Name Role Phone Raymond Medina MD Primary Care Provider [phone] Encounter Details Date Type Department Care Team (Late st Contact Info) Description 03/07/1997 Abstract [facility] CON[facility] [address] [place] [address] , Generic ConversionMD Social History Tobacco Use [...] on filedocumented in this encounter Care Teams Television Production Assistant Relationship Specialty Start Date End Date Raymond Medina MD [address] [place] [address] PCP - General FAMILY PRACTICE 06/04/16 08/16/19 documented as of this encounter
--- OUTSIDE RECORDS SUMMARY | 2024-02-03 11:23 | XMS_ITS | Encounter Summary ---
Author Organization [facility] - [facility] Address [address] [place] [address]. [place] [address] [place] [address] Care Team Providers Care Element Setter Name Role Phone Raymond Medina MD Primary Care Provider [phone] Encounter Details Date Type Department Care Team (Late st Contact Info) Description 05/17/1992 Abstract [facility] [address] [place] [address] , Generic ConversionMD Social History Tobacco Use [...] on filedocumented in this encounter Care Teams Element Setter Relationship Specialty Start Date End Date Raymond Medina MD [address] [place] [address] [place] [address] PCP - General FAMILY PRACTICE 06/04/16 08/16/19 documented as of this encounter
--- OUTSIDE RECORDS SUMMARY | 2024-02-03 11:36 | XMS_ITS | Encounter Summary ---
Author Organization [facility] Address [address] [place] [address] Phone Care Team Providers Care It Project Coordinator Name Role Phone Jessee Gregg MD Primary Care Provider [phone] Encounter Details Date Type Department Care Team (Late st Contact Info) Description 04/17/2021 Telephone [facility] Nephrology and Hypertension [address] [facility], [address] [place] [address] Annalisa Olivier RN Social History Tobacco Use Types Packs/Day Years Used Date Smoking Tobacco: Light Smoker Smokeless Tobacco: Never Alcohol Use Standard Drinks/Week Comments Not Currently 0 (1 standard drink = 0.6 oz pur e alcohol) Sex and Gender Information Value Date Recorded Sex Assigned at Not on file Gender Identity Not on file Sexual Orientation Not on file documented as of this encounter Miscellaneous Notes * Telephone Encounter - Annalisa Olivier RN - 04/17/2021 9:25 AM CST Pt called and canceled appt for today-pt states she has a cold. Pt rescheduled for August. Please place orders in to [facility] for August visit. Pt would like to know recent lab results as well. Please call or write a letter. documented in this encounter Plan of Treatment Not on file documented as of this encounter Visit Diagnoses Not on filedocumented in this encounter Care Teams It Project Coordinator Relationship Specialty Start Date End Date Jessee Gregg MD [address] [facility] [address] [place] [address] PCP - General Family Medicine 09/07/19 05/20/21 documented as of this encounter
--- OUTSIDE RECORDS SUMMARY | 2024-02-03 11:36 | XMS_ITS | Encounter Summary ---
Author Organization [facility] Address [address] [place] [address] Phone Care Team Providers Care Retail Grocer Name Role Phone Selvin Martinez MD Primary Care Provider [phone] Encounter Details Date Type Department Care Team (Late st Contact Info) Description 03/30/2019 Telephone [facility] Nephrology and Hypertension [address] [facility], [address] [facility] [place] [address] Joe Olivier MD [address] [facility], [address] [place] [address] Social History Tobacco Use Types Packs/Day Years [...] encounter Miscellaneous Notes * Telephone Encounter - Rosario Olivier - 04/03/2019 8:36 AM CST Pt has heard from you on this. * Telephone Encounter - Joe Olivier MD - 04/01/2019 10:05 PM CST No sign of labs at [facility]. Did she go somewhere else? * Telephone Encounter - Rosario Olivier - 03/30/2019 9:45 AM CST Pt had labs done at [facility] on 03-20-19 and is asking for results. PC documented in this encounter Plan of Treatment Not on file documented as of this encounter Visit Diagnoses Not on filedocumented in this encounter Care Teams Retail Grocer Relationship Specialty Start Date End Date Selvin Martinez MD [address] [place] [address] [address] [place] [address] PCP - General Family Medicine 02/22/19 09/06/19 documented as of this encounter
--- OUTSIDE RECORDS SUMMARY | 2024-02-03 11:36 | XMS_ITS | Encounter Summary ---
Author Organization [facility] Address [address] [address] Phone Care Team Providers Care Gravure Press Set Up Operator Name Role Phone Jessee Gregg MD Primary Care Provider [phone] Encounter Details Date Type Department Care Team (Late st Contact Info) Description 09/26/[address] [facility] Nephrology and Hypertension [address] [facility], [address] [place] [address] Rosario Olivier MA Social History Tobacco Use Types Packs/Day Years [...] Notes * Telephone Encounter - Rosario Olivier MA - 10/19/2019 9:09 AM CDT LM with info for pt. * Telephone Encounter - Joe Olivier MD - 10/17/2019 4:55 PM CDT Please let pt know that her kidney ultrasound is normal. * Telephone Encounter - Rosario Olivier MA - 09/26/2019 3:48 PM CDT Pt had ultrasound done at [facility] 09-20-2019 and asks for results. documented in this encounter Plan of Treatment Not on file documented as of this encounter Visit Diagnoses Not on filedocumented in this encounter Care Teams Gravure Press Set Up Operator Relationship Specialty Start Date End Date Jessee Gregg MD [address] [facility] [address] [place] [address] PCP - General Family Medicine 09/07/19 05/20/21 documented as of this encounter
--- OUTSIDE RECORDS SUMMARY | 2024-02-03 11:36 | XMS_ITS | Encounter Summary ---
Author Organization [facility] Address [address], [place] [address] Phone Care Team Providers Care Glass Blower Helper Name Role Phone Jessee Gregg MD Primary Care Provider [phone] Encounter Details Date Type Department Care Team (Late st Contact Info) Description 01/03/2020 10:00 AM BAND INSTRUMENT REPAIRER Office Visit [facility] Nephrology and Hypertension [address] [place] [address], [address] [place] [address] Joe Olivier MD [address] [facility], [address] [place] [address] Tobacco dependence syndrome (Primary Dx); Obstructive sleep apnea syndrome; Essential hypertension; Chronic kidney disease, stage 3a; Hyperlipidemia, not otherwise specified; Vitamin D deficiency, not otherwise specified Social History Tobacco Use Types Packs/Day Years [...] Sign Reading Time Taken Comments Blood Pressure 122/80 01/03/2020 10:10 AM BAND INSTRUMENT REPAIRER Pulse 60 01/03/2020 10:10 AM BAND INSTRUMENT REPAIRER Temperature 37.4 ??C (99.3 ??F) 01/03/2020 10:[address] Respiratory Rate - - Oxygen Saturation - - Inhaled Oxygen Concentration - - Weight 63.5 kg (140 lb) 01/03/2020 10:10 AM BAND INSTRUMENT REPAIRER Height 152.4 cm (5') 01/03/2020 10:10 AM BAND INSTRUMENT REPAIRER Body Mass Index 27.34 01/03/2020 10:10 AM BAND INSTRUMENT REPAIRER documented in this encounter Progress Notes * Joe Olivier MD - 01/03/2020 10:00 AM CST Nikki Bonilla is a pleasant 79 y.o.female. Nikki is a very pleasant lady who has an elevated creatinine. No urinary issues She is avoiding excess protein in the diet by taste The patient has diabetes without DR. Sugars are good The patient has COPD. Breathing okay today, good days and bad days. Still smokes. Using nebs. The patient has hypertension. This has been going on for about six years. She does not check her bpat home. The patient has coronary disease. She has had one stent. The patient has hyperlipidemia and is on medication for this. The patient has hypothyroidism. Past history: elevated creatinine, diabetes, hypertension, hypothyroidism, coronary disease, COPD. No Known Allergies Social History Tobacco Use ??? Smoking status: Light Tobacco Smoker ??? Smokeless tobacco: Never Used Substance Use Topics ??? Alcohol use: Not Currently ??? Drug use: Not on file ROS Constitutional: Negative except as above Skin: Negative except as above Pulmonary: Negative except as above Urologic: Negative except as above BP 122/80 Pulse 60 Temp 99.3 ??F (37.4 ??C) Ht 5' (1.524 m) Wt 140 lb (63.5 kg) BMI 27.34kg/m?? BSA 1.64 m?? WDWN female in NAD Skin No rash Head NCAT Neck No nodes, No TMG Lungs Clear to Auscultation Cor RRR no rub or gallop Abd BS+ nontender and soft. Ext No edema, Psyche normal not depressed or anxious Recent Labs: 02/20/2019 Cr 1.07, gfr 50, alt 23, A1C 6.8, 03/20/2019 Cr 1.14, gfr 46, Upro 600, Ca 10.3, PTH 79, Hb 16.8, UA negpro negbld S+UIfx neg, K/L 1.2, MAURO neg, C' nl, ESR 10 11/18/2019 A1C 6.3 Lab Results Component Value Date BUN 41 (H) 12/27/2019 CREATININE 1.16 (H) 12/27/2019 EGFRAA 52 (L) 12/27/2019 EGFRAA 45 (L) 09/07/2019 EGFR 45 (L) 12/27/2019 EGFR 39 (L) 09/07/2019 PROTCREATUR NOTE 12/27/2019 PROTCREATUR NOTE 12/27/2019 NA 144 12/27/2019 K 4.6 12/27/2019 CL 108 12/27/2019 CO2 28 12/27/2019 CA 9.5 12/27/2019 PHOSPHATE 4.4 (H) 12/27/2019 ALBUMIN 4.0 12/27/2019 GLUCOSE 103 (H) 12/27/2019 PTH 65 (H) 12/27/2019 VITD3 25 (L) 12/27/2019 WBC 7.5 12/27/2019 HGB 15.2 12/27/2019 PLT 261 12/27/2019 Impression: Nikki has an elevated creatinine. Serology and immunofix negative. UA is bland. We will check an Ultrasound To preserve renal function: Use KEENAN/ARB On losartan Control bp This is doing well Control Cholesterol down the line Check PTH/Vit D latter low. Add ergo qow Low protein diet Control Sugars Avoid NSAIDs Stay well hydrated The patients BMI is good. The patient has had the pneumovax and the flu shot. Plan Same meds rfp now U/s now RTC 4 months Diagnoses and all orders for this visit: Tobacco dependence syndrome Obstructive sleep apnea syndrome Essential hypertension Chronic kidney disease, stage 3a - CBC (includes Differential/Platelets); Future - PTH Intact w/o Calcium, Serum; Future - Renal Function Panel (RFP); Future - Total Protein w/ Creatinine, Urine, Random; Future Hyperlipidemia, not otherwise specified Vitamin D deficiency, not otherwise specified - CBC (includes Differential/Platelets); Future - Vitamin D, 25-Hydroxy, Serum; Future Other orders - ergocalciferol (VITAMIN D-2) 1.25 MG (37890 UT) capsule; Take 1 capsule (50,000 Units total) by mouth every 14 (fourteen) days Body mass index is 27.34 kg/m??. Follow up plan to address BMI is high. Follow up plan to address tobacco use is stop. . See above Assessment/Plan Diagnoses and all orders for this visit: Tobacco dependence syndrome Obstructive sleep apnea syndrome Essential hypertension Chronic kidney disease, stage 3a - CBC (includes Differential/Platelets); Future - PTH Intact w/o Calcium, Serum; Future - Renal Function Panel (RFP); Future - Total Protein w/ Creatinine, Urine, Random; Future Hyperlipidemia, not otherwise specified Vitamin D deficiency, not otherwise specified - CBC (includes Differential/Platelets); Future - Vitamin D, 25-Hydroxy, Serum; Future Other orders - ergocalciferol (VITAMIN D-2) 1.25 MG (09691 UT) capsule; Take 1 capsule (50,000 Units total) by mouth every 14 (fourteen) days Body mass index is 27.34 kg/m??. Follow up plan to address BMI is good. Follow up plan to address tobacco use is see above documented in this encounter Plan of Treatment Scheduled Orders Name Type Priority Associated Diagnoses Orde r Schedule CBC (includes Differential/Platelets ) Lab Routine Chronic kidney disease, stage 3a 1 Occurrences starting 01/03/2020 until 01/02/2021 PTH Intact w/o Calcium, Serum Lab Routine Chronic kidney disease, stage 3a 1 Occurrences starting 01/03/2020 until 01/02/2021 Renal Function Panel (RFP) Lab Routine Chronic kidney disease, stage 3a 1 Occurrences starting 01/03/2020 until 01/02/2021 Total Protein w/ Creatinine, Urine, Random Lab Routine Chronic kidney disease, stage 3a 1 Occurrences starting 01/03/2020 until 01/02/2021 documented as of this encounter Procedures Procedure Name Priority Date/Time Associated Diagnosis Comments CALCITRIOL (1,25 DI-OH VITAMIN D), SERUM Routine 06/19/2020 9:48 AM CDT TOTAL PROTEIN W/ CREATININE, URINE, RANDOM Routine 06/19/2020 9:48 AM CDT Vitamin D deficiency, not otherwise specified VITAMIN D, 25-HYDROXY, SERUM Routine 06/19/2020 9:48 AM CDT Vitamin D deficiency, not otherwise specified CBC (INCLUDES DIFFERENTIAL/PLATELE TS) Routine 06/19/2020 9:48 AM CDT Vitamin D deficiency, not otherwise specified RENAL FUNCTION PANEL (RFP) Routine 06/19/2020 9:48 AM CDT Vitamin D deficiency, not otherwise specified PTH INTACT W/O CALCIUM, SERUM Routine 06/19/2020 9:48 AM CDT Vitamin D deficiency, not otherwise specified documented in this encounter Results * Calcitriol (1,25 di-OH Vitamin D), Serum (06/19/2020 9:48 AM CDT) 1,25-Dihydroxyvitam in D, Serum/Plasma 38 18 - 72 pg/mL [facility]) Comment:See Note 1 Calcitriol, Serum/Plasma 38 pg/mL [facility] [place] ([facility]) Comment:See Note 1 1,25-Dihydroxyvitam in D2, Serum/Plasma <8 pg/mL [facility] ([facility]) Comment: Vitamin D3, 1,25(OH)2 indicates both endogenous production and supplementation. Vitamin D2, 1,25(OH)2 is an indicator of exogenous sources, such as diet or supplementation. Interpretation and therapy are based on measurement of Vitamin D, 1,25 (OH)2, Total. See Note 1 See Note 2 06/19/2020 9:48 AM CDT 06/19/2020 9:49 AM CDT Narrative Resulting Agency Comment Performing Organization Information: ?Site ID: [id number] ?Name: [facility] ?Address: [address] [place] [id number] ?Director: Sadi Li M.D. Joe Olivier MD LAB BLOOD ORDERABLES [facility] [place] ([facility]) * (ABNORMAL) Total Protein w/ Creatinine, Urine, Random (06/19/2020 9:48 AM CDT) Creatinine, Urine 25 20 - 275 mg/dL [facility] [place] ([facility]) Protein/Creatin ine, Urine NOTE 21 - 161 mg/g creat [facility]) Comment: THE PROTEIN VALUE IS LESS THAN 4 MG/DL THEREFORE WE ARE UNABLE TO CALCULATE EXCRETION AND/OR CREATININE RATIO. ?? Protein/Creatin ine, Urine NOTE 0.021 - 0.161 mg/mg creat [facility] [place] ([facility]) Protein, Urine <4(L) 5 - 24 mg/dL [facility] ([facility]) Comment: Verified by repeat analysis. 06/19/2020 9:48 AM CDT 06/19/2020 9:49 AM CDT Narrative Resulting Agency Comment Performing Organization Information: ?Site ID: [place] ?Name: [facility] ?Address: [address] [place] [address] ?Director: Spenser Maguire D.O., MPH Joe Olivier MD LAB URINE ORDERABLES [facility] [place] ([facility]) * (ABNORMAL) Renal Function Panel (RFP) (06/19/2020 9:48 AM CDT) Glucose, Serum/Plasma 190(H) 65 - 99 mg/dL [facility] ([facility]) Comment: ? Fasting reference interval For someone without known diabetes, a glucose value >125 mg/dL indicates that they may have diabetes and this should be confirmed with a follow-up test. Urea nitrogen, Serum/Plasma (BUN) 55(H) 7 - 25 mg/dL [facility] [place] ([facility]) Creatinine, Serum/Plasma 1.63(H) 0.60 - 0.93 mg/dL [facility] ([facility]) Comment: For patients >49 years of age, the reference limit for Creatinine is approximately 13% higher for people identified as -Niuean. eGFR, non 30(L) > OR = 60 mL/min/1. 73m2 [facility] [place] ([facility]) eGFR, 35(L) > OR = 60 mL/min/1. 73m2 [facility] [place] ([facility]) Urea nitrogen/Creatinin e, Serum/Plasma 34(H) 6 - 22 (calc) [facility] [place] ([facility]) Sodium, Serum/Plasma 142 135 - 146 mmol/L [facility]) Potassium, Serum/Plasma 4.9 3.5 - 5.3 mmol/L [facility] ([facility]) Chloride, Serum/Plasma 105 98 - 110 mmol/L [facility] [place] ([facility]) Carbon dioxide CO2), total, Serum/Plasma 28 20 - 32 mmol/L [facility] ([facility]) Calcium, Serum/Plasma 10.3 8.6 - 10.4 mg/dL [facility] ([facility]) Phosphate, Serum/Plasma 4.3 2.1 - 4.3 mg/dL [facility] ([facility]) Albumin, Serum/Plasma 4.2 3.6 - 5.1 g/dL [facility] ([facility]) Blood 06/19/2020 9:48 AM CDT 06/19/2020 9:49 AM CDT Narrative Resulting Agency Comment Performing Organization Information: ?Site ID: [place] ?Name: [facility] ?Address: [address] [place] [address] ?Director: Spenser Maguire D.O., MPH Joe Olivier MD LAB BLOOD ORDERABLES [facility] [place] ([facility]) * PTH Intact w/o Calcium, Serum (06/19/2020 9:48 AM CDT) PTH, Intact, Serum/Plasma 36 14 - 64 pg/mL [facility] [place] ([facility]) Comment: Interpretive Guide ?Intact PTH ? Calcium ? ------- Normal Parathyroid ?Normal ? Normal Hypoparathyroidism ?Low or Low Normal ?Low Hyperparathyroidism ?? Primary ?Normal or High ? High ?? Secondary ?High ? Normal or Low ?? Tertiary ? High ? High Non-Parathyroid ?? Hypercalcemia ?Low or Low Normal ?High Blood 06/19/2020 9:48 AM CDT 06/19/2020 9:49 AM CDT Narrative Resulting Agency Comment Performing Organization Information: ?Site ID: [place] ?Name: [facility] ?Address: [address] [place] [address] [place] [address] ?Director: Spenser Maguire D.O., MPH Joe Olivier MD LAB BLOOD ORDERABLES [facility] ([facility]) * Vitamin D, 25-Hydroxy, Serum (06/19/2020 9:48 AM CDT) Calcidiol, Serum/Plasma 32 30 - 100 ng/mL [facility] ([facility]) Comment: Vitamin D Status ? 25-OH Vitamin D: Deficiency: ?<20 ng/mL Insufficiency: ? 20 - 29 ng/mL Optimal: ? > or = 30 ng/mL For 25-OH Vitamin D testing on patients on D2-supplementation and patients for whom quantitation of D2 and D3 fractions is required, the QuestAssureD() 25-OH VIT D, (D2,D3), LC/MS/MS is recommended: order code 28366 (patients >2yrs). See Note 2 Note 1 This test was developed and its analytical performance characteristics have been determined by [facility]. It has not been cleared or approved by the FDA. This assay has been validated pursuant to the CLIA regulations and is used for clinical purposes. Note 2 For additional information, please refer to http://education.Multigig/faq/TCT168 (This link is being provided for informational/ educational purposes only.) 06/19/2020 9:48 AM CDT 06/19/2020 9:49 AM CDT Narrative Resulting Agency Comment Performing Organization Information: ?Site ID: [place] ?Name: [facility] ?Address: [facility] [place] [address] ?Director: Spenser Maguire D.O., MPH Joe Olivier MD LAB BLOOD ORDERABLES [facility] ([facility]) * (ABNORMAL) CBC (includes Differential/Platelets) (06/19/2020 9:48 AM CDT) Leukocytes, Blood 8.0 3.8 - 10.8 Thousand/u L [facility] ([facility]) Erythrocytes (RBC) 4.73 3.80 - 5.10 Million/uL [facility] ([facility]) Hemoglobin (HGB) 15.6(H) 11.7 - 15.5 g/dL [facility] [place] ([facility]) Hematocrit (HCT) 47.0(H) 35.0 - 45.0 % [facility] ([facility]) MCV 99.4 80.0 - 100.0 fL [facility] ([facility]) MCH 33.0 27.0 - 33.0 pg [facility] ([facility]) MCHC 33.2 32.0 - 36.0 g/dL [facility] ([facility]) Erythrocyte Distribution Width (RDW) 11.9 11.0 - 15.0 % [facility]) Platelets, Blood 268 140 - 400 Thousand/u L [facility]) Platelet mean volume, Blood 11.0 7.5 - 12.[address] [facility]) Neutrophils, Blood 4,704 1,500 - 7,800 cells/uL [facility]) Lymphocytes, Blood 2,168 850 - 3,900 cells/uL [facility]) Monocytes, Blood 568 200 - 950 cells/uL [facility] Eosinophils, Blood 472 15 - 500 cells/uL [facility] Basophils, Blood 88 0 - 200 cells/uL [facility] Neutrophils/100 leukocytes, Blood 58.8 % [facility] Lymphocytes/100 leukocytes, Blood 27.1 % [facility] Monocytes/100 leukocytes, Blood 7.1 % [facility] Eosinophils/100 leukocytes, Blood 5.9 % [facility] Basophils/100 leukocytes, Blood 1.1 % [facility] Blood 06/19/2020 9:48 AM CDT 06/19/2020 9:49 AM CDT Narrative Resulting Agency Comment Performing Organization Information: ?Site ID: [place] ?Name: [facility] ?Address: [address] [place], [place] [address] [address] ?Director: Spenser Maguire D.O., MPH Joe Olivier MD LAB BLOOD ORDERABLES [facility] documented in this encounter Visit Diagnoses Diagnosis Tobacco dependence syndrome- Primary Obstructive sleep apnea syndrome Essential hypertension Chronic kidney disease, stage 3a Hyperlipidemia, not otherwise specified Vitamin D deficiency, not otherwise specified documented in this encounter Care Teams Glass Blower Helper Relationship Specialty Start Date End Date Jessee Gregg MD [address] [facility] [address] [place] [address] PCP - General Family Medicine 09/07/19 05/20/21 documented as of this encounter
--- OUTSIDE RECORDS SUMMARY | 2024-02-03 11:36 | XMS_ITS | Encounter Summary ---
Author Organization [facility] Judi meraz Address [address], [place] [address] Phone Care Team Providers Care Proof Clerk Name Role Phone Jessee Gregg MD Primary Care Provider [phone] Encounter Details Date Type Department Care Team (Late st Contact Info) Description 07/03/2020 9:45 AM CDT Office Visit [facility] Nephrology and Hypertension [address] [place] [address], [address] [place] [address] Haydee Olivier MD [address] [facility], [address] [place] [address] Obstructive sleep apnea syndrome (Primary Dx); Essential hypertension; Stage 3a chronic kidney disease (CMS-HCC); Hyperlipidemia, not otherwise specified Social History Tobacco Use [...] Sign Reading Time Taken Comments Blood Pressure 124/62 07/03/2020 10:11 AM CDT Pulse 60 07/03/2020 10:11 AM CDT Temperature 36.2 ??C (97.1 ??F) 07/03/2020 10:11 AM C DT Respiratory Rate - - Oxygen Saturation - - Inhaled Oxygen Concentration - - Weight 63.5 kg (140 lb) 07/03/2020 10:11 AM CDT Height 152.4 cm (5') 07/03/2020 10:11 AM CDT Body Mass Index 27.34 07/03/2020 10:11 AM CDT documented in this encounter Progress Notes * Haydee Olivier MD - 07/03/2020 9:45 AM CDT Nikki Bonilla is a pleasant 79 y.o.female. Nikki is a very pleasant lady who has an elevated creatinine. No urinary issues She is avoiding excess protein in the diet by taste The patient has diabetes without DR. Sugars are doing okay. Up and down. The patient has COPD. Breathing okay today, [...] above Urologic: Negative except as above BP 124/62 Pulse 60 Temp 97.1 ??F (36.2 ??C) Ht 5' (1.524 m) Wt 140 lb (63.5 kg) BMI 27.34kg/m?? BSA 1.64 m?? WDWN female in NAD Skin No rash Head NCAT Neck No nodes, No TMG Lungs Clear but distant. Cor RRR no rub or gallop Abd BS+ nontender and soft. Ext No edema or cyanosis Psyche normal not depressed or anxious Recent Labs: 02/20/2019 Cr 1.07, gfr 50, alt 23, A1C 6.8, 03/20/2019 Cr 1.14, gfr 46, Upro 600, Ca 10.3, PTH 79, Hb 16.8, UA negpro negbld S+UIfx neg, K/L 1.2, MAURO neg, C' nl, ESR 10 11/18/2019 A1C 6.3 Lab Results Component Value Date BUN 55 (H) 06/19/2020 CREATININE 1.63 (H) 06/19/2020 EGFRAA 35 (L) 06/19/2020 EGFRAA 52 (L) 12/27/2019 EGFRAA 45 (L) 09/07/2019 EGFR 30 (L) 06/19/2020 EGFR 45 (L) 12/27/2019 EGFR 39 (L) 09/07/2019 PROTCREATUR NOTE 06/19/2020 PROTCREATUR NOTE 06/19/2020 PROTCREATUR NOTE 12/27/2019 PROTCREATUR NOTE 12/27/2019 NA 142 06/19/2020 K 4.9 06/19/2020 CL 105 06/19/2020 CO2 28 06/19/2020 CA 10.3 06/19/2020 PHOSPHATE 4.3 06/19/2020 ALBUMIN 4.2 06/19/2020 GLUCOSE 190 (H) 06/19/2020 PTH 36 06/19/2020 VITD3 32 06/19/2020 WBC 8.0 06/19/2020 HGB 15.6 (H) 06/19/2020 PLT 268 06/19/2020 Imaging 09/20/19 Renal U/S okay Impression: Nikki has an elevated creatinine. Serology and immunofix negative. UA is bland. To preserve renal function: Use KEENAN/ARB On losartan Control bp This is doing well Control Cholesterol check next visit Check PTH/Vit D these are okay Low protein diet Control Sugars Avoid NSAIDs Stay well hydrated The patients BMI is good. The patient has had the pneumovax and the flu shot. Plan Same meds Labs next visit Stop smoking please RTC 4 months Diagnoses and all orders for this visit: Obstructive sleep apnea syndrome Essential hypertension Stage 3a chronic kidney disease ([facility]-HCC) Hyperlipidemia, not otherwise specified Body mass index is 27.34 kg/m??. Follow up plan to address tobacco use is quit. . See above Diagnoses and all orders for this visit: Obstructive sleep apnea syndrome Essential hypertension Stage 3a chronic kidney disease ([facility]-HCC) Hyperlipidemia, not otherwise specified Body mass index is 27.34 kg/m??. Follow up plan to address BMI is high. Follow up plan to address tobacco use is stop. . See above Assessment/Plan Diagnoses and all orders for this visit: Obstructive sleep apnea syndrome Essential hypertension Stage 3a chronic kidney disease ([facility]-HCC) Hyperlipidemia, not otherwise specified Body mass index is 27.34 kg/m??. Follow up plan to address BMI is good. Follow up plan to address tobacco use is see above documented in this encounter Miscellaneous Notes * Addendum Note - Haydee Olivier MD - 07/03/2020 9:45 AM CDTAddended by: HAYDEE OLIVIER on: 10/30/2020 12:31 PM Modules accepted: Orders documented in this encounter Plan of Treatment Not on file documented as of this encounter Procedures Procedure Name Priority Date/Time Associated Diagnosis Comments TOTAL PROTEIN W/ CREATININE, URINE, RANDOM Routine 11/01/2020 10:56 AM CDT Stage 3a chronic kidney disease (CMS-HCC) CBC (INCLUDES DIFFERENTIAL/PLATEL ETS) Routine 11/01/2020 10:56 AM CDT Stage 3a chronic kidney disease (CMS-HCC) RENAL FUNCTION PANEL (RFP) Routine 11/01/2020 10:56 AM CDT Stage 3a chronic kidney disease (CMS-HCC) ALT (SGPT), SERUM Routine 11/01/2020 10: 56 AM CDT Hyperlipidemia, not otherwise specified PTH INTACT W/O CALCIUM, SERUM Routine 11/01/2020 10:56 AM CDT Stage 3a chronic kidney disease (CMS-HCC) documented in this encounter Results * ALT (SGPT), Serum (11/01/2020 10:56 AM CDT) Alanine Aminotransferase (ALT), Serum/Plasma 27 6 - 29 U/L [facility] ([facility]) Blood 11/01/2020 10:5 6 AM CDT 11/01/2020 10:56 AM CDT Narrative [facility] ([facility]) - 11/04/2020 12:53 PM CDT PATIENT REFUSED SOME TESTING; PATIENT ENCOURAGED TO RETURN. Resulting Agency Comment Performing Organization Information: ?Site ID: [place] ?Name: [address] [place] ?Address: [address] [place] [address] ?Director: Spenser Maguire D.O., MPH Haydee Olivier MD LAB BLOOD ORDERABLES Performing Organization Address [facility] de Phone Number [facility] ([facility]) * (ABNORMAL) Total Protein w/ Creatinine, Urine, Random (11/01/2020 10:56 AM CDT) Creatinine, Urine 20 20 - 275 mg/dL [facility] ([facility]) Protein/Creatin ine, Urine NOTE 21 - 161 mg/g creat [facility] ([facility]) Comment: THE PROTEIN VALUE IS LESS THAN 4 MG/DL THEREFORE WE ARE UNABLE TO CALCULATE EXCRETION AND/OR CREATININE RATIO. ?? Protein/Creatin ine, Urine NOTE 0.021 - 0.161 mg/mg creat [facility] ([facility]) Protein, Urine <4(L) 5 - 24 mg/dL [facility] ([facility]) Comment: Verified by repeat analysis. 11/01/2020 10:5 6 AM CDT 11/01/2020 10:56 AM CDT Narrative [facility] ([facility]) - 11/04/2020 12:53 PM CDT PATIENT REFUSED SOME TESTING; PATIENT ENCOURAGED TO RETURN. Resulting Agency Comment Performing Organization Information: ?Site ID: [place] ?Name: [address] [place] ?Address: [facility] [place] [address] ?Director: Spenser Maguire D.O., MPH Haydee Olivier MD LAB URINE ORDERABLES Performing Organization Address [facility] Co de Phone Number [facility] ([facility]) * (ABNORMAL) Renal Function Panel (RFP) (11/01/2020 10:56 AM CDT) Pathologist [facility] Glucose, Serum/Plasma 63(L) 65 - 99 mg/dL [facility] Comment: ? Fasting reference interval Urea nitrogen, Serum/Plasma (BUN) 45(H) 7 - 25 mg/dL [facility] ([facility]) Creatinine, Serum/Plasma 1.23(H) 0.60 - 0.93 mg/dL [facility] ([facility] Comment: For patients >49 years of age, the reference limit for Creatinine is approximately 13% higher for people identified as -Chilean. eGFR, non 42(L) > OR = 60 mL/min/1. 73m2 [facility] (L) eGFR, 48(L) > OR = 60 mL/min/1. 73m2 [facility] ([facility]) Urea nitrogen/Creatinin e, Serum/Plasma 37(H) 6 - 22 (calc) [facility] ([facility]) Sodium, Serum/Plasma 147(H) 135 - 146 mmol/L [facility]) Potassium, Serum/Plasma 4.9 3.5 - 5.3 mmol/L [facility]) Chloride, Serum/Plasma 108 98 - 110 mmol/L [facility] ([facility]) Carbon dioxide CO2), total, Serum/Plasma 30 20 - 32 mmol/L [facility] ([facility]) Calcium, Serum/Plasma 10.2 8.6 - 10.4 mg/dL [facility]) Phosphate, Serum/Plasma 4.9(H) 2.1 - 4.3 mg/dL [facility]) Albumin, Serum/Plasma 4.3 3.6 - 5.1 g/dL [facility] ([facility]) Blood 11/01/2020 10:5 6 AM CDT 11/01/2020 10:56 AM CDT Narrative [facility] ([facility]) - 11/04/2020 12:53 PM CDT PATIENT REFUSED SOME TESTING; PATIENT ENCOURAGED TO RETURN. Resulting Agency Comment Performing Organization Information: ?Site ID: [facility] ?Name: [address] [place] ?Address: [address] [place] [address] ?Director: Spenser Maguire D.O., MPH Haydee Olivier MD LAB BLOOD ORDERABLES [facility] ([facility]) * (ABNORMAL) PTH Intact w/o Calcium, Serum (11/01/2020 10:56 AM CDT) PTH, Intact, Serum/Plasma 82(H) 14 - 64 pg/mL [facility] ([facility]) Comment: Interpretive Guide ?Intact PTH ? Calcium ? ------- Normal Parathyroid ?Normal ? Normal Hypoparathyroidism ?Low or Low Normal ?Low Hyperparathyroidism ?? Primary ?Normal or High ? High ?? Secondary ?High ? Normal or Low ?? Tertiary ? High ? High Non-Parathyroid ?? Hypercalcemia ?Low or Low Normal ?High Blood 11/01/2020 10:5 6 AM CDT 11/01/2020 10:56 AM CDT Narrative [facility] ([facility]) - 11/04/2020 12:53 PM CDT PATIENT REFUSED SOME TESTING; PATIENT ENCOURAGED TO RETURN. Resulting Agency Comment Performing Organization Information: ?Site ID: [place] ?Name: [facility] ?Address: [address] [place] [address] ?Director: Spenser Maguire D.O., MPH Haydee Olivier MD LAB BLOOD ORDERABLES [facility] ([facility]) * (ABNORMAL) CBC (includes Differential/Platelets) (11/01/2020 10:56 AM CDT) [facility] Leukocytes, Blood 10.1 3.8 - 10.8 Thousand/u L [facility] ([facility]) Erythrocytes (RBC) 5.08 3.80 - 5.10 Million/uL [facility] ([facility]) Hemoglobin (HGB) 16.3(H) 11.7 - 15.5 g/dL [facility] ([facility]) Hematocrit (HCT) 49.0(H) 35.0 - 45.0 % [facility] ([facility]) MCV 96.5 80.0 - 100.[address] [facility] ([facility]) MCH 32.1 27.0 - 33.[address] [facility] ([facility]) MCHC 33.3 32.0 - 36.0 g/dL [facility] ([facility]) Erythrocyte Distribution Width (RDW) 11.7 11.0 - 15.0 % [facility] ([facility]) Platelets, Blood 271 140 - 400 Thousand/u L [facility] ([facility]) Platelet mean volume, Blood 11.7 7.5 - 12.[address] [facility] ([facility]) Neutrophils, Blood 5,383 1,500 - 7,800 cells/uL [facility] ([facility]) Lymphocytes, Blood 3,323 850 - 3,900 cells/uL [facility] ([facility]) Monocytes, Blood 778 200 - 950 cells/uL [facility] ([facility]) Eosinophils, Blood 525(H) 15 - 500 cells/uL [facility]) Basophils, Blood 91 0 - 200 cells/uL [facility] ([facility]) Neutrophils/100 leukocytes, Blood 53.3 % [facility]) Lymphocytes/100 leukocytes, Blood 32.9 % [facility]) Monocytes/100 leukocytes, Blood 7.7 % [facility]) Eosinophils/100 leukocytes, Blood 5.2 % [facility]) Basophils/100 leukocytes, Blood 0.9 % [facility]) Blood 11/01/2020 10:5 6 AM CDT 11/01/2020 10:56 AM CDT Narrative [facility] ([facility]) - 11/04/2020 12:53 PM CDT PATIENT REFUSED SOME TESTING; PATIENT ENCOURAGED TO RETURN. Resulting Agency Comment Performing Organization Information: ?Site ID: [place] ?Name: [facility] ?Address: [facility] [place] [address] ?Director: Spenser Maguire D.O., MPH Haydee Olivier MD LAB BLOOD ORDERABLES [facility] ([facility]) documented in this encounter Visit Diagnoses Diagnosis Obstructive sleep apnea syndrome- Primary Essential hypertension Stage 3a chronic kidney disease ([facility]) Hyperlipidemia, not otherwise specified documented in this encounter Care Teams Proof Clerk Relationship Specialty Start Date End Date Jessee Gregg MD [address] [address] PCP - General Family Medicine 09/07/19 05/20/21 documented as of this encounter
--- OUTSIDE RECORDS SUMMARY | 2024-02-03 11:36 | XMS_ITS | Encounter Summary ---
Author Organization [facility] Judi meraz Address [address] [place] [address] Phone Care Team Providers Care Able Seaman Name Role Phone Jessee Gregg MD Primary Care Provider [phone] Encounter Details Date Type Department Care Team (Late st Contact Info) Description 10/30/2020 Telephone [facility] Nephrology and Hypertension [address] [facility], [address] [place] [address] Annalisa Olivier, RN Social History Tobacco Use Types Packs/Day [...] encounter Miscellaneous Notes * Telephone Encounter - Joe Olivier MD - 10/30/2020 12:31 PM CDT deleted * Telephone Encounter - Annalisa Olivier RN - 10/30/2020 9:48 AM CDT Pt called stating that her pcp has already done a cholesterol test and that she does not need the lipid panel [facility] ordered. Can you remove the lipd panel from her orders? Requested pt ask her pcp to send the labs he orderd to [facility]. documented in this encounter Plan of Treatment Not on file documented as of this encounter Visit Diagnoses Not on filedocumented in this encounter Care Teams Able Seaman Relationship Specialty Start Date End Date Jessee Gregg MD [address] [facility] [address] [place] [address] PCP - General Family Medicine 09/07/19 05/20/21 documented as of this encounter
--- OUTSIDE RECORDS SUMMARY | 2024-02-03 11:36 | XMS_ITS | Encounter Summary ---
Author Organization [facility]ician Judi utishawanda Address [address] [address] Phone Care Team Providers Care Interactive Media Project Manager Name Role Phone Selvin Martinez MD Primary Care Provider [phone] Encounter Details Date Type Department Care Team (Late st Contact Info) Description 03/20/2019 11:30 AM COST COORDINATOR Office Visit [facility] Nephrology and Hypertension [address] [place] [address], [address] [place] [address] Joe Olivier MD [address] [facility], [address] [place] [address] Essential hypertension (Primary Dx); Chronic kidney disease stage 3 (CMS-HCC) Social History Tobacco Use Types Packs/Day Years [...] Sign Reading Time Taken Comments Blood Pressure 126/84 03/20/2019 11:22 AM COST COORDINATOR Pulse 84 03/20/2019 11:22 AM COST COORDINATOR Temperature 36.4 ??C (97.6 ??F) 03/20/2019 11:[address] Respiratory Rate - - Oxygen Saturation - - Inhaled Oxygen Concentration - - Weight 61.2 kg (135 lb) 03/20/2019 11:22 AM COST COORDINATOR Height 152.4 cm (5') 03/20/2019 11:22 AM COST COORDINATOR Body Mass Index 26.37 03/20/2019 11:22 AM COST COORDINATOR documented in this encounter Progress Notes * Joe Olivier MD - 03/20/2019 11:30 AM CST Nikki Bonilla is a pleasant 78 y.o.female. Nikki is a very pleasant lady who has an elevated creatinine. She went to see Dr. Gilbert recently.She tan some blood work and found that the GFR was low at 50. This was repeated and was still low so she was sent for kidney evaluation. At the time of the visit the patient was feeling fine. There was no nausea, vomiting, diarrhea, fevers, chills, or other flu like illnesses. The patient has had no bloody urine, foamy urine, kidney stones, painful urination, or bladder infections. The patient is not taking any new medications or new over the counter meds. No NSAIDs reported. The patient does not have diabetic retinopathy or neuropathy. The patient has diabetes. She???s had this for 63 years. She contracted it when she was 15. She???snot sure if this is actually type one or type two diabetes. However the for the first few years shewas on oral medication. In addition she was on Metformin up until about five years ago. The patient does not have retinopathy or neuropathy. The patient has COPD. She has smoked for many years and even now smokes a few cigarettes per day but is trying to quit. She does take oxygen at night and has been qualified to have oxygen all day long but she does not like to use it during the day. The patient has hypertension. This has been going on for about six years. It has always been well controlled. She???s never had a stroke. The patient has coronary disease. She has had one stent. The patient has hyperlipidemia and is on medication for this. The patient has hypothyroidism. Past history: elevated creatinine, diabetes, hypertension, hypothyroidism, coronary disease, COPD. ROS Constitutional: Negative except as above Neuro: Negative except as above ENT: Negative except as above Endocrine: Negative except as above Psychiatric: Negative except as above Pulmonary: Negative except as above Cardiac: Negative except as above Abdomen: Negative except as above Urologic: Negative except as above Skin: Negative except as above Rheumatologic: Negative except as above No Known Allergies Social History Tobacco Use ??? Smoking status: Light Tobacco Smoker ??? Smokeless tobacco: Never Used Substance Use Topics ??? Alcohol use: Not Currently ??? Drug use: Not on file BP 126/84 Pulse 84 Temp 97.6 ??F (36.4 ??C) Ht 5' (1.524 m) Wt 135 lb (61.2 kg) BMI 26.37kg/m?? BSA 1.61 m?? WDWN female in NAD Skin No rash Head NCAT Mouth Normal Lips, Gums, and Teeth Neck No nodes, No TMG Back No CVAT Lungs Clear to Auscultation and Percussion Cor: RRR no rub or gallop Abd BS+ nontender and soft. No HSM no masses no bruits Ext No edema, cyanosis, or clubbing Pulses normal radial and dorsalis pedis Psyche normal not depressed or anxious Neuro A+Ox3 Motor 5/ all groups Cr Ns 2-12 intact Cb normal MILE Recent Labs: 02/20/2019 Cr 1.07, gfr 50, alt 23, A1C 6.8, No results found for: EGFR, CREATININE, CREATININEUR, CHOL, LDL, HDL, TRIG, GLUCOSE, PTH, HCT, BUN,NA, K, CL, CO2, ALBUMIN, CA Impression: Nikki has an elevated creatinine. This was repeated and was still high. This may shoe turner to be chronic kidney disease. The etiology of this is probably going to shoe turner to be hypertension and diabetes. The amount of urinary protein she is spilling would steer us towards one diagnosis versus the other as a main component; however both are probably involved. Patient also probably has vascular disease in the kidneys as she has had coronary disease and is at risk for other vascular disease because of her diabetes and hyperlipidemia. There are other things that cause kidney disease as well, including glomerulonephritis, interstitial nephritis, obstruction, infiltration, stone disease, or cystic disease. These are unlikely becausethe patient has no sign or symptoms of any of these. To evaluate this I am going to get a renal panel, urinalysis, urine protein to creatinine ratio, MAURO, ESR, complements, serum and urine immunofixation, kappa lambda ratio, and a renal ultrasound. We discussed ways to preserve renal function. We discussed the potential benefits of KEENAN inhibitors and ARBs. The systolic blood pressure should be less than 140. The LDL cholesterol should be less than 100. We will check a PTH and vitamin D level to be sure these are in line. We discussed that the patient should stay off large amounts of protein in the diet. Try to stick toabout 4-5 ounces of chicken, fish, beef or pork per day. The patient should avoid nonsteroidal antiinflammatory agents. The patient should stay well hydrated. The sugars should be well controlled. The patients BMI is good. The patient has had the pneumovax and the flu shot. The patient will work on the diet and get the testing done. Followup in a few weeks for further evaluation. Smokes. Consider chantix or patches or see PCP Assessment/Plan Diagnoses and all orders for this visit: Essential hypertension Chronic kidney disease stage 3 (CMS-HCC) Body mass index is 26.37 kg/m??. Follow up plan to address BMI is good. Follow up plan to address tobacco use is see above documented in this encounter Plan of Treatment Not on file documented as of this encounter Visit Diagnoses Diagnosis Essential hypertension- Primary Chronic kidney disease stage 3 (CMS-HCC) documented in this encounter Care Teams Interactive Media Project Manager Relationship Specialty Start Date End Date Selvin Martinez MD [facility] [place] [id number] PCP - General Family Medicine 02/22/19 09/06/19 documented as of this encounter
--- OUTSIDE RECORDS SUMMARY | 2024-02-03 11:36 | XMS_ITS | Encounter Summary ---
Author Organization [facility] Address [address], [place] [address] Phone Care Team Providers Care Health Information Manager Name Role Phone Jessee Gregg MD Primary Care Provider [phone] Encounter Details Date Type Department Care Team (Latest Contact Info) Description 11/07/2020 10:45 AM CDT Office Visit [facility] [address] [place] [address], [address] [place] [address] Joe Olivier MD [address] [facility], [address] [place] [address] Obstructive sleep apnea syndrome (Primary Dx); Essential hypertension; Stage 3a chronic kidney disease ([facility]); Hyperlipidemia, not otherwise specified; Secondary hyperparathyroidism ([facility]) Social History Tobacco Use Types Packs/Day Years [...] Sign Reading Time Taken Comments Blood Pressure 128/70 11/07/2020 10:55 AM CDT Pulse 72 11/07/2020 10:55 AM CDT Temperature 36.9 ??C (98.4 ??F) 11/07/2020 10:55 AM C DT Respiratory Rate - - Oxygen Saturation - - Inhaled Oxygen Concentration - - Weight 62.6 kg (138 lb) 11/07/2020 10:55 AM CDT Height 152.4 cm (5') 11/07/2020 10:55 AM CDT Body Mass Index 26.95 11/07/2020 10:55 AM CDT documented in this encounter Progress Notes * Joe Olivier MD - 11/07/2020 10:45 AM CDT Nikki Bonilla is a pleasant 80 y.o.female. Nikki is a very pleasant lady who has an elevated creatinine. No problems urinatingt She is avoiding excess protein in the diet by taste The patient has diabetes without DR. Sugars are doing better. A1C is 6.8 The patient has COPD. Breathing okay today, good days and bad days. Still smokes. Using nebs. The patient has hypertension. This has been going on for about six years. She does not check her bpat home. [facility] The patient has coronary disease. She has [...] above Urologic: Negative except as above BP 128/70 Pulse 72 Temp 98.4 ??F (36.9 ??C) Ht 5' (1.524 m) Wt 138 lb (62.6 kg) BMI 26.95kg/m?? BSA 1.63 m?? WDWN female in NAD Skin No rash Head NCAT Neck No nodes, No TMG Lungs Clear but distant. Cor RRR no rub or gallop Abd BS+ nontender and soft. Ext No edema Psyche normal not depressed or anxious Recent Labs: 02/20/2019 Cr 1.07, gfr 50, alt 23, A1C 6.8, 03/20/2019 Cr 1.14, gfr 46, Upro 600, Ca 10.3, PTH 79, Hb 16.8, UA negpro negbld S+UIfx neg, K/L 1.2, MAURO neg, C' nl, ESR 10 11/18/2019 A1C 6.3 Lab Results Component Value Date BUN 45 (H) 11/01/2020 CREATININE 1.23 (H) 11/01/2020 EGFRAA 48 (L) 11/01/2020 EGFRAA 35 (L) 06/19/2020 EGFRAA 52 (L) 12/27/2019 EGFR 42 (L) 11/01/2020 EGFR 30 (L) 06/19/2020 EGFR 45 (L) 12/27/2019 PROTCREATUR NOTE 11/01/2020 PROTCREATUR NOTE 11/01/2020 PROTCREATUR NOTE 06/19/2020 PROTCREATUR NOTE 06/19/2020 NA 147 (H) 11/01/2020 K 4.9 11/01/2020 CL 108 11/01/2020 CO2 30 11/01/2020 CA 10.2 11/01/2020 PHOSPHATE 4.9 (H) 11/01/2020 ALBUMIN 4.3 11/01/2020 GLUCOSE 63 (L) 11/01/2020 PTH 82 (H) 11/01/2020 VITD3 32 06/19/2020 ALT 27 11/01/2020 WBC 10.1 11/01/2020 HGB 16.3 (H) 11/01/2020 PLT 271 11/01/2020 Imaging 09/20/19 Renal U/S okay Impression: Nikki has an elevated creatinine. Improved numbers this time. Serology and immunofix negative. UA is bland. To preserve renal function: Use KEENAN/ARB On losartan Control bp This is doing well Control Cholesterol checked by Dr Gregg Check PTH/Vit D these are okay Low protein diet Control Sugars Avoid NSAIDs Stay well hydrated The patients BMI is good. Try to stop smoking. Consider chantix or patches. See PCP for help The patient has had the pneumovax and the flu shot. Plan Same meds drink more water Labs next visit Stop smoking please RTC 6 months Diagnoses and all orders for this visit: Obstructive sleep apnea syndrome Essential hypertension Stage 3a chronic kidney disease (CMS-HCC) - CBC (includes Differential/Platelets); Future - PTH Intact w/o Calcium, Serum; Future - Renal Function Panel (RFP); Future - Total Protein w/ Creatinine, Urine, Random; Future Hyperlipidemia, not otherwise specified Secondary hyperparathyroidism ([facility]) - Vitamin D, 25-Hydroxy, Serum; Future Follow up plan to address tobacco use is quit. . See above Diagnoses and all orders for this visit: Obstructive sleep apnea syndrome Essential hypertension Stage 3a chronic kidney disease ([facility]) Hyperlipidemia, not otherwise specified Body mass index is 26.95 kg/m??. Follow up plan to address tobacco use is quit. . See above Diagnoses and all orders for this visit: Obstructive sleep apnea syndrome Essential hypertension Stage 3a chronic kidney disease ([facility]) Hyperlipidemia, not otherwise specified Body mass index is 26.95 kg/m??. Follow up plan to address BMI is high. Follow up plan to address tobacco use is stop. . See above Assessment/Plan Diagnoses and all orders for this visit: Obstructive sleep apnea syndrome Essential hypertension Stage 3a chronic kidney disease (CMS-HCC) Hyperlipidemia, not otherwise specified Body mass index is 26.95 kg/m??. Follow up plan to address BMI is good. Follow up plan to address tobacco use is see above documented in this encounter Plan of Treatment Not on file documented as of this encounter Procedures Procedure Name Priority Date/Time Associated Diagnosis Comments TOTAL PROTEIN W/ CREATININE, URINE, RANDOM Routine 04/14/2021 10:21 AM ELECT[employer]ICAL AND [employer]IC Stage 3a chronic kidney disease ([facility]) VITAMIN D, 25-HYDROXY, SERUM Routine 04/14/2021 10:21 AM ELECTRICAL AND RADIO MECHANIC Secondary hyperparathyroidism ([facility]) CBC (INCLUDES DIFFERENTIAL/PLAT ELETS) Routine 04/14/2021 10:21 AM ELECTRICAL AND RADIO MECHANIC Stage 3a chronic kidney disease ([facility]) RENAL FUNCTION PANEL (RFP) Routine 04/14/2021 10:21 AM ELECTRICAL AND RADIO MECHANIC Stage 3a chronic kidney disease ([facility]) PTH INTACT W/O CALCIUM, SERUM Routine 04/14/2021 10:21 AM ELECTRICAL AND RADIO MECHANIC Stage 3a chronic kidney disease ([facility]) documented in this encounter Results * Vitamin D, 25-Hydroxy, Serum (04/14/2021 10:21 AM ELECTRICAL AND RADIO MECHANIC) Calcidiol, Serum/Plasma 33 30 - 100 ng/mL [facility] ([facility]) Comment: Vitamin D Status ? 25-OH Vitamin D: Deficiency: ?<20 ng/mL Insufficiency: ? 20 - 29 ng/mL Optimal: ? > or = 30 ng/mL For 25-OH Vitamin D testing on patients on D2-supplementation and patients for whom quantitation of D2 and D3 fractions is required, the QuestAssureD(TM) 25-OH VIT D, (D2,D3), LC/MS/MS is recommended: order code 56115 (patients >2yrs). See Note 1 Note 1 For additional information, please refer to http://education.[employer]/faq/JXV453 (This link is being provided for informational/ educational purposes only.) 04/14/2021 10:2 1 AM ELECTRICAL AND RADIO MECHANIC 04/14/2021 10:22 AM ELECTRICAL AND RADIO MECHANIC Narrative [facility] ([facility]) - 04/16/2021 2:00 PM [employer]LECT[employer]ICAL AND [employer]IO MECH[employer]IC FASTING:NO FASTING: NO Resulting Agency Comment Performing Organization Information: ?Site ID: [place] ?Name: [employer] ?Address: [id number] [place] [address] [place] [address] ?Director: Spenser Maguire D.O., MPH Joe Olivier MD LAB BLOOD ORDERABLES [facility] ([facility]) * (ABNORMAL) Total Protein w/ Creatinine, Urine, Random (04/14/2021 10:21 AM ELECTRICAL AND RADIO MECHANIC) Creatinine, Urine 27 20 - 275 mg/dL [facility] ([facility]) Protein/Creatin ine, Urine NOTE 21 - 161 mg/g creat [facility] ([facility]) Comment: THE PROTEIN VALUE IS LESS THAN 4 MG/DL THEREFORE WE ARE UNABLE TO CALCULATE EXCRETION AND/OR CREATININE RATIO. ?? Protein/Creatin ine, Urine NOTE 0.021 - 0.161 mg/mg creat [facility] ([facility]) Protein, Urine <4(L) 5 - 24 mg/dL [facility] ([facility]) Comment: Verified by repeat analysis. 04/14/2021 10:2 1 AM ELECTRICAL AND RADIO MECHANIC 04/14/2021 10:22 AM ELECTRICAL AND RADIO MECHANIC Narrative [facility] ([facility]) - 04/16/2021 2:00 PM [employer]LECT[employer]ICAL AND [employer] MECH[employer]IC FASTING:NO FASTING: NO Resulting Agency Comment Performing Organization Information: ?Site ID: [place] ?Name: [employer] ?Address: [facility] [place] [address] ?Director: Spenser Maguire D.O., MPH Joe Olivier MD LAB URINE ORDERABLES [facility] ([facility]) * (ABNORMAL) Renal Function Panel (RFP) (04/14/2021 10:21 AM ELECTRICAL AND RADIO MECHANIC) Glucose, Serum/Plasma 128 65 - 139 mg/dL [facility] ([facility]) Comment: ? Non-fasting reference interval Urea nitrogen, Serum/Plasma (BUN) 69(H) 7 - 25 mg/dL [facility] ([facility]) Creatinine, Serum/Plasma 1.54(H) 0.60 - 0.93 mg/dL [facility] ([facility]) Comment: For patients >49 years of age, the reference limit for Creatinine is approximately 13% higher for people identified as -[place]. eGFR, non 32(L) > OR = 60 mL/min/1. 73m2 [facility] ([facility]) eGFR, 37(L) > OR = 60 mL/min/1. 73m2 [facility] ([facility]) Urea nitrogen/Creatinin e, Serum/Plasma 45(H) 6 - 22 (calc) [facility] ([facility]) Sodium, Serum/Plasma 141 135 - 146 mmol/L [facility]) Potassium, Serum/Plasma 5.2 3.5 - 5.3 mmol/L [facility]) Chloride, Serum/Plasma 106 98 - 110 mmol/L [facility] ([facility]) Carbon dioxide CO2), total, Serum/Plasma 23 20 - 32 mmol/L [facility]) Calcium, Serum/Plasma 9.8 8.6 - 10.4 mg/dL [facility]) Phosphate, Serum/Plasma 5.2(H) 2.1 - 4.3 mg/dL [facility]) Albumin, Serum/Plasma 4.1 3.6 - 5.1 g/dL [facility]) Blood 04/14/2021 10:2 1 AM ELECTRICAL AND RADIO MECHANIC 04/14/2021 10:22 AM ELECTRICAL AND RADIO MECHANIC Narrative [facility] ([facility]) - 04/16/2021 2:00 PM ELECTRICAL AND RADIO MECHANIC FASTING:NO FASTING: NO Resulting Agency Comment Performing Organization Information: ?Site ID: [place] ?Name: [employer] ?Address: [address] [place] [id number] ?Director: Spenser Maguire D.O., MPH Joe Olivier MD LAB BLOOD ORDERABLES [facility] ([facility]) * (ABNORMAL) PTH Intact w/o Calcium, Serum (04/14/2021 10:21 AM ELECTRICAL AND RADIO MECHANIC) PTH, Intact, Serum/Plasma 89(H) 14 - 64 pg/mL [facility]) Comment: Interpretive Guide ?Intact PTH ? Calcium ? ------- Normal Parathyroid ?Normal ? Normal Hypoparathyroidism ?Low or Low Normal ?Low Hyperparathyroidism ?? Primary ?Normal or High ? High ?? Secondary ?High ? Normal or Low ?? Tertiary ? High ? High Non-Parathyroid ?? Hypercalcemia ?Low or Low Normal ?High Blood 04/14/2021 10:2 1 AM ELECTRICAL AND RADIO MECHANIC 04/14/2021 10:22 AM ELECTRICAL AND RADIO MECHANIC Narrative [facility] ([facility]) - 04/16/2021 2:00 PM ELECTRICAL AND RADIO MECHANIC FASTING:NO FASTING: NO Resulting Agency Comment Performing Organization Information: ?Site ID: [place] ?Name: [facility] ?Address: [address] [facility] [place] [address] ?Director: Spenser Maguire D.O., MPH Joe Olivier MD LAB BLOOD ORDERABLES [facility] ([facility]) * CBC (includes Differential/Platelets) (04/14/2021 10:21 AM ELECTRICAL AND RADIO MECHANIC) Pathologist [facility] Leukocytes, Blood 9.8 3.8 - 10.8 Thousand/u L [facility] ([facility]) Erythrocytes (RBC) 4.51 3.80 - 5.10 Million/uL [facility]) Hemoglobin (HGB) 14.7 11.7 - 15.5 g/dL [facility]) Hematocrit (HCT) 44.4 35.0 - 45.0 % [facility]) MCV 98.4 80.0 - 100.0 fL [facility]) MCH 32.6 27.0 - 33.0 pg [facility]) MCHC 33.1 32.0 - 36.0 g/dL [facility]) Erythrocyte Distribution Width (RDW) 11.2 11.0 - 15.0 % [facility]) Platelets, Blood 250 140 - 400 Thousand/u L [facility]) Platelet mean volume, Blood 11.7 7.5 - 12.5 fL [facility]) Neutrophils, Blood 6,321 1,500 - 7,800 cells/uL [facility]) Lymphocytes, Blood 2,136 850 - 3,900 cells/uL [facility]) Monocytes, Blood 804 200 - 950 cells/uL [facility]) Eosinophils, Blood 441 15 - 500 cells/uL [facility]) Basophils, Blood 98 0 - 200 cells/uL [facility]) Neutrophils/100 leukocytes, Blood 64.5 % [facility]) Lymphocytes/100 leukocytes, Blood 21.8 % [facility]) Monocytes/100 leukocytes, Blood 8.2 % [facility]) Eosinophils/100 leukocytes, Blood 4.5 % [facility]) Basophils/100 leukocytes, Blood 1.0 % [facility]) Blood 04/14/2021 10:2 1 AM ELECTRICAL AND RADIO MECHANIC 04/14/2021 10:22 AM ELECTRICAL AND RADIO MECHANIC Narrative [facility] ([facility] - 04/16/2021 2:00 PM ELECTRICAL AND RADIO MECHANIC FASTING:NO FASTING: NO Resulting Agency Comment Performing Organization Information: ?Site ID: [place] ?Name: [facility] ?Address: [address] [address] [place] [address] ?Director: Spenser Maguire D.O., MPH Joe Olivier MD LAB BLOOD ORDERABLES [facility]) documented in this encounter Visit Diagnoses Diagnosis Obstructive sleep apnea syndrome- Primary Essential hypertension Stage 3a chronic kidney disease (CMS-HCC) Hyperlipidemia, not otherwise specified Secondary hyperparathyroidism (CMS-HCC) documented in this encounter Care Teams Health Information Manager Relationship Specialty Start Date End Date Jessee Gregg MD [address] [place] [address] PCP - General Family Medicine 09/07/19 05/20/21 documented as of this encounter
--- OUTSIDE RECORDS SUMMARY | 2024-02-03 11:36 | XMS_ITS | Encounter Summary ---
Author Organization [facility] Judi utishawanda Address [address] [place] [address] Phone Care Team Providers Care Source Inspector Name Role Phone Jessee Gregg MD Primary Care Provider [phone] Encounter Details Date Type Department Care Team (Late st Contact Info) Description 09/19/2019 Telephone [facility] Nephrology and Hypertension [address] [facility], [address] [place] [address] Joe Olivier MD [address] [facility], [address] [facility] [place] [address] Social History Tobacco Use Types Packs/Day Years [...] Telephone Encounter - Joe Olivier MD - 09/19/2019 8:03 PM CDT ----- Message from Joe Olivier MD sent at 09/07/2019 9:06 AM CDT ----- ckd 4 no hep documented in this encounter Plan of Treatment Not on file documented as of this encounter Procedures Procedure Name Priority Date/Time Associated Diagnosis Comments TOTAL PROTEIN W/ CREATININE, URINE, RANDOM Routine 12/27/2019 9:13 AM SUPERVISOR PACKING Chronic kidney disease stage 3 VITAMIN D, 25-HYDROXY, SERUM Routine 12/27/2019 9:13 AM SUPERVISOR PACKING Chronic kidney disease stage 3 CBC (INCLUDES DIFFERENTIAL/PLATEL ETS) Routine 12/27/2019 9:13 AM SUPERVISOR PACKING Chronic kidney disease stage 3 RENAL FUNCTION PANEL (RFP) Routine 12/27/2019 9:13 AM SUPERVISOR PACKING Chronic kidney disease stage 3 PTH INTACT W/O CALCIUM, SERUM Routine 12/27/2019 9:13 AM SUPERVISOR PACKING Chronic kidney disease stage 3 documented in this encounter Results * (ABNORMAL) Vitamin D, 25-Hydroxy, Serum (12/27/2019 9:13 AM SUPERVISOR PACKING) Calcidiol, Serum/Plasma 25(L) 30 - 100 ng/mL [facility] ([facility]) Comment: Vitamin D Status ? 25-OH Vitamin D: Deficiency: ?<20 ng/mL Insufficiency: ? 20 - 29 ng/mL Optimal: ? > or = 30 ng/mL For 25-OH Vitamin D testing on patients on D2-supplementation and patients for whom quantitation of D2 and D3 fractions is required, the QuestAssureD(TM) 25-OH VIT D, (D2,D3), LC/MS/MS is recommended: order code 72658 (patients >2yrs). See Note 1 Note 1 For additional information, please refer to http://education.[employer].Associa/faq/BQV221 (This link is being provided for informational/ educational purposes only.) 12/27/2019 9:13 AM SUPERVISOR PACKING 12/27/2019 9:14 AM SUPERVISOR PACKING Narrative Resulting Agency Comment Performing Organization Information: ?Site ID: [place] ?Name: [facility] ?Address: [address] [address] ?Director: Spenser Maguire D.O., MPH Joe Olivier MD LAB BLOOD ORDERABLES Performing Organization Address [facility] Co de Phone Number [facility] (ST) * (ABNORMAL) Total Protein w/ Creatinine, Urine, Random (12/27/2019 9:13 AM SUPERVISOR PACKING) Creatinine, Urine 21 20 - 275 mg/dL [facility] ([facility]) Protein/Creatin ine, Urine NOTE 21 - 161 mg/g creat [facility] (ST[facility]) Comment: THE PROTEIN VALUE IS LESS THAN 4 MG/DL THEREFORE WE ARE UNABLE TO CALCULATE EXCRETION AND/OR CREATININE RATIO. ?? Protein/Creatin ine, Urine NOTE 0.021 - 0.161 mg/mg creat [facility] (ST[facility]) Protein, Urine <4(L) 5 - 24 mg/dL [facility] (STL) Comment: Verified by repeat analysis. 12/27/2019 9:13 AM SUPERVISOR PACKING 12/27/2019 9:14 AM SUPERVISOR PACKING Narrative Resulting Agency Comment Performing Organization Information: ?Site ID: [place] ?Name: [email or web address] ?Address: [facility] [address] [place] [address] ?Director: Spenser Maguire D.O. MPH Joe Olivier MD LAB URINE ORDERABLES Performing Organization Address [facility] de Phone Number [facility] ([facility]) * (ABNORMAL) Renal Function Panel (RFP) (12/27/2019 9:13 AM SUPERVISOR PACKING) Glucose, Serum/Plasma 103(H) 65 - 99 mg/dL [facility] (ST[facility]) Comment: ? Fasting reference interval For someone without known diabetes, a glucose value between 100 and 125 mg/dL is consistent with prediabetes and should be confirmed with a follow-up test. Urea nitrogen, Serum/Plasma (BUN) 41(H) 7 - 25 mg/dL [facility] (ST[facility]) Creatinine, Serum/Plasma 1.16(H) 0.60 - 0.93 mg/dL [facility] (ST[facility]) Comment: For patients >49 years of age, the reference limit for Creatinine is approximately 13% higher for people identified as -Turkish. eGFR, non 45(L) > OR = 60 mL/min/1. 73m2 [facility] (ST[facility]) eGFR, 52(L) > OR = 60 mL/min/1. 73m2 [facility] ([facility]) Urea nitrogen/Creatinin e, Serum/Plasma 35(H) 6 - 22 (calc) [facility] ([facility]) Sodium, Serum/Plasma 144 135 - 146 mmol/L [facility] ([facility]) Potassium, Serum/Plasma 4.6 3.5 - 5.3 mmol/L [facility] ([facility]) Chloride, Serum/Plasma 108 98 - 110 mmol/L [facility] ([facility]) Carbon dioxide CO2), total, Serum/Plasma 28 20 - 32 mmol/L [facility] ([facility]) Calcium, Serum/Plasma 9.5 8.6 - 10.4 mg/dL [facility] ([facility]) Phosphate, Serum/Plasma 4.4(H) 2.1 - 4.3 mg/dL [facility] ([facility]) Albumin, Serum/Plasma 4.0 3.6 - 5.1 g/dL [facility] (ST) Blood 12/27/2019 9:13 AM SUPERVISOR PACKING 12/27/2019 9:14 AM SUPERVISOR PACKING Narrative Resulting Agency Comment Performing Organization Information: ?Site ID: [place] ?Name: [facility] ?Address: [address] [address] [place] [address] ?Director: Spenser Maguire D.O., MPH Joe Olivier MD LAB BLOOD ORDERABLES [facility] (ST) * (ABNORMAL) PTH Intact w/o Calcium, Serum (12/27/2019 9:13 AM SUPERVISOR PACKING) Pathologist [facility] PTH, Intact, Serum/Plasma 65(H) 14 - 64 pg/mL [facility] ([facility]) Comment: Interpretive Guide ?Intact PTH ? Calcium ? ------- Normal Parathyroid ?Normal ? Normal Hypoparathyroidism ?Low or Low Normal ?Low Hyperparathyroidism ?? Primary ?Normal or High ? High ?? Secondary ?High ? Normal or Low ?? Tertiary ? High ? High Non-Parathyroid ?? Hypercalcemia ?Low or Low Normal ?High Blood 12/27/2019 9:13 AM SUPERVISOR PACKING 12/27/2019 9:14 AM SUPERVISOR PACKING Narrative Resulting Agency Comment Performing Organization Information: ?Site ID: [place] ?Name: [email or web address] ?Address: [address] [facility] [place] [address] ?Director: Spenser Maguire D.O., MPH Joe Olivier MD LAB BLOOD ORDERABLES [facility] ([facility]) * (ABNORMAL) CBC (includes Differential/Platelets) (12/27/2019 9:13 AM SUPERVISOR PACKING) Pathologist [facility] Leukocytes, Blood 7.5 3.8 - 10.8 Thousand/u L [facility] ([facility]) Erythrocytes (RBC) 4.77 3.80 - 5.10 Million/uL [facility] ([facility]) Hemoglobin (HGB) 15.2 11.7 - 15.5 g/dL [facility] ([facility]) Hematocrit (HCT) 45.6(H) 35.0 - 45.0 % [facility] ([facility]) MCV 95.6 80.0 - 100.[address] [facility] ([facility]) MCH 31.9 27.0 - 33.0 pg [facility] ([facility]) MCHC 33.3 32.0 - 36.0 g/dL [facility] ([facility]) Erythrocyte Distribution Width (RDW) 12.0 11.0 - 15.0 % [facility] ([facility]) Platelets, Blood 261 140 - 400 Thousand/u L [facility] ([facility]) Platelet mean volume, Blood 11.2 7.5 - 12.5 fL [facility] ([facility]) Neutrophils, Blood 4,230 1,500 - 7,800 cells/uL [facility] ([facility]) Lymphocytes, Blood 2,273 850 - 3,900 cells/uL [facility] ([facility]) Monocytes, Blood 593 200 - 950 cells/uL [facility] ([facility]) Eosinophils, Blood 323 15 - 500 cells/uL [facility] ([facility]) Basophils, Blood 83 0 - 200 cells/uL [facility] ([facility]) Neutrophils/100 leukocytes, Blood 56.4 % [facility] ([facility]) Lymphocytes/100 leukocytes, Blood 30.3 % [facility] ([facility]) Monocytes/100 leukocytes, Blood 7.9 % [facility] (ST) Eosinophils/100 leukocytes, Blood 4.3 % [facility] ([facility]) Basophils/100 leukocytes, Blood 1.1 % [facility] ([facility]) Blood 12/27/2019 9:13 AM SUPERVISOR PACKING 12/27/2019 9:14 AM SUPERVISOR PACKING Narrative Resulting Agency Comment Performing Organization Information: ?Site ID: [place] ?Name: [facility] ?Address: [address] [place], [place] [address] [address] ?Director: Spenser Maguire D.O., MPH Joe Olivier MD LAB BLOOD ORDERABLES [facility] ([facility]) documented in this encounter Visit Diagnoses Diagnosis Chronic kidney disease stage 3 (CMS-HCC)- Primary documented in this encounter Care Teams Source Inspector Relationship Specialty Start Date End Date Jessee Gregg MD [address] [address] PCP - General Family Medicine 09/07/19 05/20/21 documented as of this encounter
--- OUTSIDE RECORDS SUMMARY | 2024-02-03 11:36 | XMS_ITS | Encounter Summary ---
Author Organization [facility]ician Judi utishawanda Address [address] [place] [address] Phone Care Team Providers Care Music Supervisor Name Role Phone Scott Galvez MD Primary Care Provider [phone] Encounter Details Date Type Department Care Team (Late st Contact Info) Description 05/15/2021 Telephone [facility] Nephrology and Hypertension [address] [facility], [address] [place] [address] Kassy Castillo MA Social History Tobacco Use Types Packs/Day [...] Telephone Encounter - Joe Olivier MD - 05/20/2021 9:18 PM CDT LMOR yesterday to call back. Will try again * Telephone Encounter - Kassy Castillo MA - 05/15/2021 10:17 AM CDT Pt called wanting her lab results. Told her you were out of the office and would call her on Wednesdayor Wednesday next week. documented in this encounter Plan of Treatment Not on file documented as of this encounter Visit Diagnoses Not on filedocumented in this encounter Care Teams Music Supervisor Relationship Specialty Start Date End Date Scott Galvez MD [address] [place] [address] PCP - General Internal Medicine 05/21/21 documented as of this encounter
--- OUTSIDE RECORDS SUMMARY | 2024-02-03 11:36 | XMS_ITS | Clinical Summary ---
Author Organization Jeny meraz Address [address] [place] [address] Phone Care Team Providers Care Administrative Support Technician Name Role Phone Scott Galvez MD Primary Care Provider [phone] Allergies No known active allergies Medications Medication Sig Dispensed Refills Start Date End Date Status albuterol (2.5 MG/3ML) 0.083% nebulizer solution 3 mL daily Active amLODIPine (NORVASC) 5 MG tablet 02/14/2019 Active furosemide (LASIX) 40 MG tablet 02/14/2019 Active losartan (COZAAR) 50 MG tablet 02/14/2019 Active omeprazole (PriLOSEC) [address] capsule 01/24/2019 Active metoprolol tartrate (LOPRESSOR) 25 MG tablet 01/24/2019 Active lovastatin (MEVACOR) 20 MG tablet 02/14/2019 Active potassium chloride (KLOR-CON M20) 20 MEQ CR tablet 01/24/2019 Active ANORO ELLIPTA 62.5-25 MCG/INH aerosol powder 02/22/2019 Active aspirin EC 81 MG EC tablet Take 81 mg by mouth daily Active Calcium Carbonate-Vit D-Min (CALCIUM/VITAMIN D/MINERALS) 600-200 MG-UNIT tablet Take 1 capsule by mouth daily 06/03/2016 Active Accu-Chek Softclix Lancets lancets 08/01/2019 Active pen needle, diabetic (Droplet Pen [place]) 31G X 5 MM misc 05/25/2019 Active glucose blood (Accu-Chek Corrie Plus) test strip 07/12/2019 Active Continuous Blood Gluc Sensor (FreeStyle Sophia 14 Day Sensor) misc Use with Freestyle Sophia monitor 11/07/2019 Active Continuous Blood Gluc It Application Administrator (FreeStyle Sophia 14 Day [place]) device Use with Freestyle Sophia Sensor 11/07/2019 Active Lantus SoloStar 100 UNIT/ML injection INJECT 22 UNITS AT BEDTIME 11/24/2019 Active levalbuterol (XOPENEX HFA) 45 MCG/ACT inhaler INHALE 2 PUFFS BY MOUTH EVERY 6 HOURS DIRECTED FOR 30 DAYS 12/16/2019 Active LORazepam (ATIVAN) 0.5 MG tablet TAKE 1 TABLET BY MOUTH NEEDED FOR ANXIETY 04/30/2020 Active furosemide (LASIX) 20 MG tablet 05/19/2020 Active levothyroxine (SYNTHROID) 137 MCG tablet Take 137 mcg by mouth 1 (one) time each day in the morning 05/01/2020 Active HumaLOG KWIKPEN 100 UNIT/ML solution pen-injector 11/01/2020 Active theophylline (UNIPHYL) 400 MG 24 hr tablet Take 400 mg by mouth 1 (one) time each day in the evening 10/08/2021 Active budesonide (PULMICORT) 0.5 MG/2ML nebulizer solution USE 1 VIAL VIA NEBULIZER TWICE A DAY 09/28/2021 Active escitalopram (LEXAPRO) 10 MG tablet Take 10 mg by mouth 1 (one) time each day 11/24/2021 Active Active Problems Problem Noted Date Diagnosed Date Stage 3a chronic kidney disease 05/16/2018 Congestive heart failure 04/29/2018 Obstructive sleep apnea syndrome 04/29/2018 Chronic obstructive pulmonary disease 03/07/2018 Diabetes mellitus 03/07/2018 Essential hypertension 03/07/2018 Hyperlipidemia 03/07/2018 Tobacco dependence syndrome 03/07/2018 Coronary arteriosclerosis 06/10/2016 Immunizations Name Administration Dates Next Due Influenza (IM) Preservative Free 11/14/2018 Influenza Split High Dose Pr eservative Free IM 12/19/2020,11/06/2019 Influenza TIV (IM) 11/19/2021,12/15/2018 Influenza, Injectable, Quadr ivalent, Preservative Free 11/14/2018 Influenza, Unspecified 11/08/2019,12/15/2018, Pneumococcal Conjugate 13-Valent 11/14/2018 Family History Medical History Relation Comments Kidney disease Brother Kidney disease Sister Relation Status Comments Brother Sister Social History Tobacco Use Types Packs/Day Years Used Date Smoking Tobacco: Former Smokeless Tobacco: Never Alcohol Use Standard Drinks/Week Comments Not Currently 0 (1 standard drink = 0.6 oz pur e alcohol) Sex and Gender Information Value Date Recorded Sex Assigned at Not on file Gender Identity Not on file Sexual Orientation Not on file Last Filed Vital Signs Vital Sign Reading Time Taken Comments Blood Pressure 124/70 12/03/2021 2:04 PM CDT Pulse 72 12/03/2021 2:04 PM CDT Temperature 35.9 ??C (96.6 ??F) 12/03/2021 2:04 PM CD T Respiratory Rate - - Oxygen Saturation - - Inhaled Oxygen Concentration - - Weight 60.8 kg (134 lb) 12/03/2021 2:04 PM CDT Height 152.4 cm (5') 12/03/2021 2:04 PM CDT Body Mass Index 26.17 12/03/2021 2:04 PM CDT Plan of Treatment Health Maintenance Due Date Last Done Comments Diabetic Foot Exam 10/17/1950 Ophthalmology Exam [birth year]17/1950 Pneumococcal PPSV23/PCV13 65 + Years / High and Highest Risk (2 of 4 - PPSV23 or PCV20) 01/09/2019 11/14/2018 Influenza Vaccine (#1) 2023 2, 11/08/2019, 12/15/2018, Additional history exists Care Teams Administrative Support Technician Relationship Specialty Start Date End Date Scott Galvez MD [address] [place] [address] PCP - General Internal Medicine 05/21/21
--- OUTSIDE RECORDS SUMMARY | 2024-02-03 11:36 | XMS_ITS | Encounter Summary ---
Author Organization Jeny Physician Judi utishawanda Address [address] [address] Phone Care Team Providers Care Desktop Support Consultant Name Role Phone Jessee Gregg MD Primary Care Provider [phone] Encounter Details Date Type Department Care Team (Late st Contact Info) Description 07/04/2020 Telephone [facility] Nephrology and Hypertension [address] [facility], [address] [place] [address] Rosario Olivier MA Social History Tobacco Use [...] encounter Miscellaneous Notes * Telephone Encounter - Dayanara Ortiz - 07/05/2020 9:27 AM CDT done * Telephone Encounter - Joe Olivier MD - 07/04/2020 1:40 PM CDT Please let her know her kidney function is 30, not 8. Dialysis does start at 10 or so but she is nowhere near that. * Telephone Encounter - Rosario Olivier MA - 07/04/2020 10:12 AM CDT Pt saw you yesterday and after thinking about her appt asks what her kidney function of 8 means in regards to dialysis which you said was at 10. What should she be doing until her next appt in 4 months. documented in this encounter Plan of Treatment Not on file documented as of this encounter Visit Diagnoses Not on filedocumented in this encounter Care Teams Desktop Support Consultant Relationship Specialty Start Date End Date Jessee Gregg MD [address] [address] PCP - General Family Medicine 09/07/19 05/20/21 documented as of this encounter
--- OUTSIDE RECORDS SUMMARY | 2024-02-03 11:36 | XMS_ITS | Encounter Summary ---
Author Organization Jeny Physician Judi utishawanda Address [address] [address] Phone Care Team Providers Care Visualization Developer Name Role Phone Jessee Gregg MD Primary Care Provider [phone] Encounter Details Date Type Department Care Team (Late st Contact Info) Description 09/07/2019 9:00 AM CDT Office Visit [facility] Nephrology and Hypertension [address] [place] [address], [address] [place] [address] Joe Olivier MD [address] [facility], [address] [place] [address] Tobacco dependence syndrome (Primary Dx); Obstructive sleep apnea syndrome; Coronary arteriosclerosis, not otherwise specified; Essential hypertension; Chronic kidney disease stage 3 (CMS-HCC); Hyperlipidemia, not otherwise specified Social History [...] Sign Reading Time Taken Comments Blood Pressure 126/70 09/07/2019 9:00 AM CDT Pulse 84 09/07/2019 9:00 AM CDT Temperature 36.4 ??C (97.6 ??F) 09/07/2019 9:00 AM CD T Respiratory Rate - - Oxygen Saturation - - Inhaled Oxygen Concentration - - Weight 62.1 kg (137 lb) 09/07/2019 9:00 AM CDT Height 152.4 cm (5') 09/07/2019 9:00 AM CDT Body Mass Index 26.76 09/07/2019 9:00 AM CDT documented in this encounter Progress Notes * Joe Olivier MD - 09/07/2019 9:00 AM CDT Nikki Bonilla is a pleasant 78 y.o.female. Nikki is a very pleasant lady who has an elevated creatinine. No urinary issues She changed doctors to Dr Jessee Gregg. The patient has diabetes without DR. A1C was 6.6 last week. The patient has COPD. Breathing okay today, good days and bad days. The patient has hypertension. This has been [...] above Urologic: Negative except as above BP 126/70 Pulse 84 Temp 97.6 ??F (36.4 ??C) Ht 5' (1.524 m) Wt 137 lb (62.1 kg) BMI 26.76kg/m?? BSA 1.62 m?? WDWN female in NAD Skin No [...] 1.2, MAURO neg, C' nl, ESR 10 Impression: Nikki has an elevated creatinine. Serology and immunofix negative. UA is bland. We will check an Ultrasound To preserve renal function: Use KEENAN/ARB On losartan Control bp This is good Control Cholesterol down the line Check PTH/Vit D check next visit Low protein diet Control Sugars Avoid NSAIDs Stay well hydrated The patients BMI is good. The patient has had the pneumovax and the flu shot. Plan Same meds rfp now U/s now RTC 4 months Assessment/Plan Diagnoses and all orders for this visit: Tobacco dependence syndrome Obstructive sleep apnea syndrome Coronary arteriosclerosis, not otherwise specified Essential hypertension Chronic kidney disease stage 3 ([facility]-HCC) Hyperlipidemia, not otherwise specified Body mass index is 26.76 kg/m??. Follow up plan to address BMI is good. Follow up plan to address tobacco use is see above documented in this encounter Miscellaneous Notes * Addendum Note - Joe Olivier MD - 09/07/2019 9:00 AM CDTAddended by: JOE OLIVIER on: 09/13/2019 03:18 PM Modules accepted: Orders documented in this encounter Plan of Treatment Scheduled Orders Name Type Priority Associated Diagnoses Orde r Schedule Renal Function Panel (RFP) Lab Routine Chronic kidney disease stage 3 ([facility]-HCC) 1 Occurrences starting 09/13/2019 until 09/12/2020 Total Protein w/ Creatinine, Urine, Random Lab Routine Chronic kidney disease stage 3 ([facility]-HCC) 1 Occurrences starting 09/13/2019 until 09/12/2020 documented as of this encounter Procedures Procedure Name Priority Date/Time Associated Diagnosis Comments RENAL FUNCTION PANEL (RFP) Routine 09/07/2019 8:37 AM CDT Chronic kidney disease stage 3 (CMS-HCC) documented in this encounter Results * (ABNORMAL) Renal Function Panel (RFP) (09/07/2019 8:37 AM CDT) Glucose, Serum/Plasma 112(H) 65 - 99 mg/dL [facility] ([facility]) Comment: ? Fasting reference interval For someone without known diabetes, a glucose value between 100 and 125 mg/dL is consistent with prediabetes and should be confirmed with a follow-up test. Urea nitrogen, Serum/Plasma (BUN) 53(H) 7 - 25 mg/dL [facility] ([facility]) Creatinine, Serum/Plasma 1.32(H) 0.60 - 0.93 mg/dL [facility] ([facility]) Comment: For patients >49 years of age, the reference limit for Creatinine is approximately 13% higher for people identified as -Malagasy. eGFR, non 39(L) > OR = 60 mL/min/1. 73m2 [facility] ([facility]) eGFR, 45(L) > OR = 60 mL/min/1. 73m2 [facility] ([facility]) Urea nitrogen/Creatinin e, Serum/Plasma 40(H) 6 - 22 (calc) [facility] ([facility]) Sodium, Serum/Plasma 145 135 - 146 mmol/L [facility] ([facility]) Potassium, Serum/Plasma 5.0 3.5 - 5.3 mmol/L [facility] ([facility]) Chloride, Serum/Plasma 107 98 - 110 mmol/L [facility] ([facility]) Carbon dioxide CO2), total, Serum/Plasma 33(H) 20 - 32 mmol/L [facility] ([facility]) Calcium, Serum/Plasma 9.7 8.6 - 10.4 mg/dL [facility] ([facility]) Phosphate, Serum/Plasma 4.9(H) 2.1 - 4.3 mg/dL [facility] ([facility]) Albumin, Serum/Plasma 4.1 3.6 - 5.1 g/dL [facility] ([facility]) Blood 09/07/2019 8:37 AM CDT 09/07/2019 8:37 AM CDT Narrative Resulting Agency Comment Performing Organization Information: ?Site ID: [place] ?Name: [facility] ?Address: [address] [place] [address] ?Director: Spenser Maguire D.O., MPH Joe Olivier MD LAB BLOOD ORDERABLES [facility] ([facility]) documented in this encounter Visit Diagnoses Diagnosis Tobacco dependence syndrome- Primary Obstructive sleep apnea syndrome Coronary arteriosclerosis, not otherwise specified Essential hypertension Chronic kidney disease stage 3 (CMS-HCC) Hyperlipidemia, not otherwise specified documented in this encounter Care Teams Visualization Developer Relationship Specialty Start Date End Date Jessee Gregg MD [address] [facility] [address] [place] [address] PCP - General Family Medicine 09/07/19 05/20/21 documented as of this encounter
--- OUTSIDE RECORDS SUMMARY | 2024-02-03 11:36 | XMS_ITS | Encounter Summary ---
Author Organization [facility]i utishawanda Address [address] [place] [address] Phone Care Team Providers Care Instructor Industrial Design Name Role Phone Scott Galvez MD Primary Care Provider [phone] Encounter Details Date Type Department Care Team (Late st Contact Info) Description 07/07/2021 Telephone [facility] Nephrology and Hypertension [address] [facility], [address] [place] [address] Joe Olivier MD [address] [facility], [address] [facility] [place] [address] Social History Tobacco Use Types Packs/Day Years [...] Telephone Encounter - Joe Olivier MD - 07/07/2021 5:37 PM CDT documented in this encounter Plan of Treatment Not on file documented as of this encounter Procedures Procedure Name Priority Date/Time Associated Diagnosis Comments TOTAL PROTEIN W/ CREATININE, URINE, RANDOM Routine 09/01/2021 7:22 AM CDT Stage 3a chronic kidney disease (CMS-HCC) RENAL FUNCTION PANEL (RFP) Routine 09/01/2021 7:22 AM CDT Stage 3a chronic kidney disease (CMS-HCC) documented in this encounter Results * (ABNORMAL) Total Protein w/ Creatinine, Urine, Random (09/01/2021 7:22 AM CDT) Creatinine, Urine 33 20 - 275 mg/dL [facility] ([facility]) Protein/Creati nine, Urine 182(H) 21 - 161 mg/g creat [facility] ([facility]) Protein/Creati nine, Urine 0.182(H) 0.021 - 0.161 mg/mg creat [facility] ([facility]) Protein, Urine 6 5 - 24 mg/dL [facility] ([facility]) 09/01/2021 7:22 AM CDT 09/01/2021 7:22 AM CDT Narrative Resulting Agency Comment Performing Organization Information: ?Site ID: [place] ?Name: [facility] ?Address: [address] [place] [address] [place] [address] ?Director: Spenser Maguire D.O., MPH Joe Olivier MD LAB URINE ORDERABLES [facility] (ST) * (ABNORMAL) Renal Function Panel (RFP) (09/01/2021 7:22 AM CDT) Glucose, Serum/Plasma 86 65 - 99 mg/dL [facility] ([facility]) Comment: ? Fasting reference interval Urea nitrogen, Serum/Plasma (BUN) 46(H) 7 - 25 mg/dL [facility] ([facility]) Creatinine, Serum/Plasma 1.26(H) 0.60 - 1.00 mg/dL [facility] ([facility]) Estimated Glomerular Filtration Rate (eGFR) 43(L) > OR = 60 mL/min/1.7 3m2 [facility] ([facility]) Comment: The eGFR is based on the CKD-EPI 2021 equation. To calculate the new eGFR from a previous Creatinine or Cystatin C result, go to https://www.kidney.org/professionals/ kdoqi/gfr%5Fcalculator Urea nitrogen/Creati nine, Serum/Plasma 37(H) 6 - 22 (calc) [facility] ([facility]) Sodium, Serum/Plasma 145 135 - 146 mmol/L [facility] ([facility]) Potassium, Serum/Plasma 4.7 3.5 - 5.3 mmol/L [facility] ([facility]) Chloride, Serum/Plasma 106 98 - 110 mmol/L [facility] ([facility]) Carbon dioxide CO2), total, Serum/Plasma 31 20 - 32 mmol/L [facility] ([facility]) Calcium, Serum/Plasma 9.8 8.6 - 10.4 mg/dL [facility] ([facility]) Phosphate, Serum/Plasma 4.4(H) 2.1 - 4.3 mg/dL [facility] ([facility]) Albumin, Serum/Plasma 4.0 3.6 - 5.1 g/dL [facility] ([facility]) Blood 09/01/2021 7:22 AM CDT 09/01/2021 7:22 AM CDT Narrative Resulting Agency Comment Performing Organization Information: ?Site ID: [place] ?Name: [facility] ?Address: [facility] [place] [address] ?Director: Spenser Maguire D.O., MPH Joe Olivier MD LAB BLOOD ORDERABLES [facility] ([facility]) documented in this encounter Visit Diagnoses Diagnosis Stage 3a chronic kidney disease (CMS-HCC)- Primary documented in this encounter Care Teams Instructor Industrial Design Relationship Specialty Start Date End Date Scott Galvez MD [address] [place] [address] PCP - General Internal Medicine 05/21/21 documented as of this encounter
--- OUTSIDE RECORDS SUMMARY | 2024-02-03 11:36 | XMS_ITS | Encounter Summary ---
Author Organization Jen[facility] Physician Judi utishawanda Address [address] [place] [address] Phone Care Team Providers Care Founder And Chief Executive Officer Name Role Phone Jessee Gregg MD Primary Care Provider [phone] Encounter Details Date Type Department Care Team (Late st Contact Info) Description 04/24/2021 Telephone [facility] Nephrology and Hypertension [facility] [facility], [address] [place] [address] Joe Olivier MD [address] [facility], [address] [facility] [place] [address] Social History Tobacco Use Types Packs/Day Years [...] * Telephone Encounter - Dayanara Ortiz - 04/28/2021 10:00 AM CDT spk w/ pt - relayed info T * Telephone Encounter - Joe Olivier MD - 04/27/2021 2:18 PM CDT Her kidney function is 32. Dialysis is 10 so she Is not close to dialysis. Only dietary restrictions are salt and protein. Try to stick to 5-6 ounces of chicken, fish, beef, and pork per day. * Telephone Encounter - Dayanara Ortiz - 04/24/2021 3:09 PM CST spk w/ pt - rec your letter Doing as asked but has questions 1. - is she close to dialysis based on kidney # 2. What showed up in her labs that made her need to cut back on diary? Please advise? documented in this encounter Plan of Treatment Not on file documented as of this encounter Visit Diagnoses Not on filedocumented in this encounter Care Teams Founder And Chief Executive Officer Relationship Specialty Start Date End Date Jessee Gregg MD [address] [address] PCP - General Family Medicine 09/07/19 05/20/21 documented as of this encounter
--- OUTSIDE RECORDS SUMMARY | 2024-02-03 11:36 | XMS_ITS | Encounter Summary ---
Author Organization Jeny Physician Judi utishawanda Address [address] [place] [address] Phone Care Team Providers Care Cone Worker Name Role Phone Scott Galvez MD Primary Care Provider [phone] Encounter Details Date Type Department Care Team (Late st Contact Info) Description 05/19/2021 Telephone [facility] Nephrology and Hypertension [address] [facility], [address] [facility] [place] [address] Joe Olivier MD [address] [facility], [address] [place] [address] Social History Tobacco Use Types Packs/Day Years [...] Telephone Encounter - Joe Olivier MD - 05/22/2021 4:32 PM CDT I talked with patient at length. Her kidney function is relatively stable. I think it is OK for herto continue the Lasix. If she cuts it back she will go back into heart failure which is not a good thing for her in general but also for her kidneys. She is getting another set of bloodwork in one week through her primary care physician. She will call us once she gets this done. * Telephone Encounter - Joe Olivier MD - 05/22/2021 3:19 PM CDT Labs 05/15/21 Cr 1.3, gfr 40, CO2 28, BNP 1023, Hb 16.2, ABG 7.44/34/89/22.5 CXR NAD Kidneys stable. DM, CAD, HLD, HTN, smokes. * Telephone Encounter - Dayanara Ortiz - 05/21/2021 4:50 PM CDT spk w/ pt - stated she's taking all 80mg in the a.m. Relayed lab info- she understood. Pt then stated she had labs done yesterday at PCP office - they called and stated that her kidneys are worse based off those results. Having those labs faxed to us. Wants you to look at them krishan and advise. * Telephone Encounter - Joe Olivier MD - 05/19/2021 6:08 PM CDT Yes this is okay. We will need labs in a couple of weeks on the new regimen. Orders are in lab computer. Please clarify with patient, she was on lasix 40mg in am and 20 mg in pm and now she is on 40 mg twice a day? * Telephone Encounter - Dayanara Ortiz - 05/19/2021 9:48 AM CDT spk w/ pt - Stated she recently went to hosp - they found fluid around her heart. hosp increased lasix from 60-80mg - wondering if that's okay for her kidney's. Please advise documented in this encounter Plan of Treatment Not on file documented as of this encounter Visit Diagnoses Not on filedocumented in this encounter Care Teams Cone Worker Relationship Specialty Start Date End Date Scott Galvez MD [address] [place] [address] PCP - General Internal Medicine 05/21/21 documented as of this encounter
--- OUTSIDE RECORDS SUMMARY | 2024-02-03 11:36 | XMS_ITS | Encounter Summary ---
Author Organization Jeny Physician Judi utishawanda Address [address], [place] [address] Phone Care Team Providers Care Vat House Laborer Name Role Phone Scott Galvez MD Primary Care Provider [phone] Encounter Details Date Type Department Care Team (Latest Contact Info) Description 12/03/2021 1:45 PM CDT Office Visit [facility] Nephrology and Hypertension [address] [place] [address], [address] [place] [address] Joe Olivier MD [address] [facility], [address] [place] [address] Obstructive sleep apnea syndrome (Primary Dx); Essential hypertension; Stage 3a chronic kidney disease ([facility]-HCC); Secondary hyperparathyroidism ([facility]-HCC) Social History Tobacco Use Types Packs/Day Years [...] Mass Index 26.17 12/03/2021 2:04 PM CDT documented in this encounter Progress Notes * Joe Olivier MD - 12/03/2021 1:45 PM CDT Nikki Bonilla is a pleasant 81 y.o.female. Nikki is a very pleasant lady who has an elevated creatinine. Urinating fine She is avoiding excess protein in the diet by taste The patient has diabetes without DR. Sugars are good. A1C is 6.9 The patient has COPD. Breathing okay today, good days and bad days. Still smokes. Using nebs. The patient has hypertension. This has been going on for about six years. She does not check her bpat home. Okay at PCP office The patient has coronary disease. She has had one stent. The patient has hyperlipidemia and is on medication for this. The patient has hypothyroidism. Past history: elevated creatinine, diabetes, hypertension, hypothyroidism, coronary disease, COPD. No Known Allergies Social History Tobacco Use ??? Smoking status: Former Smoker ??? Smokeless tobacco: Never Used Substance Use Topics ??? Alcohol use: Not Currently ROS Constitutional: Negative except as above Skin: Negative except as above Pulmonary: Negative except as above Urologic: Negative except as above BP 124/70 Pulse 72 Temp 96.6 ??F (35.9 ??C) Ht 5' (1.524 m) Wt 134 lb (60.8 kg) BMI 26.17kg/m?? BSA 1.6 m?? WDWN female in NAD Skin No [...] Results Component Value Date BUN 41 (H) 11/24/2021 CREATININE 1.29 (H) 11/24/2021 CREATININE 1.26 (H) 09/01/2021 CREATININE 1.43 (H) 05/09/2021 EGFRAA 40 (L) 05/09/2021 EGFRAA 37 (L) 04/14/2021 EGFRAA 48 (L) 11/01/2020 EGFR 35 (L) 05/09/2021 EGFR 32 (L) 04/14/2021 EGFR 42 (L) 11/01/2020 EGFRCR 42 (L) 11/24/2021 EGFRCR 43 (L) 09/01/2021 PROTCREATUR 125 11/24/2021 PROTCREATUR 0.125 11/24/2021 PROTCREATUR 182 (H) 09/01/2021 PROTCREATUR 0.182 (H) 09/01/2021 NA 142 11/24/2021 K 4.5 11/24/2021 CL 103 11/24/2021 CO2 28 11/24/2021 CA 10.2 11/24/2021 PHOSPHATE 4.2 11/24/2021 ALBUMIN 4.4 11/24/2021 GLUCOSE 144 (H) 11/24/2021 PTH 89 (H) 04/14/2021 VITD3 33 04/14/2021 ALT 27 11/01/2020 WBC 9.8 04/14/2021 HGB 14.7 04/14/2021 PLT 250 04/14/2021 Imaging 09/20/19 Renal U/S okay Impression: Nikki has an elevated creatinine. Improved numbers this time. Serology and immunofix negative. UA is bland. To preserve renal function: Use KEENAN/ARB On losartan Control bp This is doing well Control Cholesterol checked by Dr Gregg Check PTH/Vit D these are okay Low protein diet Control Sugars. This is doing well Avoid NSAIDs Stay well hydrated She stopped smoking The patients BMI is good. Try to stop smoking. Consider chantix or patches. See PCP for help The patient has had the pneumovax and the flu shot. Plan Same meds Same diet RTC 6 months Diagnoses and all orders for this visit: Obstructive sleep apnea syndrome Essential hypertension Stage 3a chronic kidney disease (CMS-HCC) Follow up plan to address tobacco use is quit. . See above Diagnoses and all orders for this visit: Obstructive sleep apnea syndrome Essential hypertension Stage 3a chronic kidney disease (CMS-HCC) Body mass index is 26.17 kg/m??. Follow up plan to address tobacco use is quit. . See above Diagnoses and all orders for this visit: Obstructive sleep apnea syndrome Essential hypertension Stage 3a chronic kidney disease (CMS-HCC) Body mass index is 26.17 kg/m??. Follow up plan to address BMI is high. Follow up plan to address tobacco use is stop. . See above Assessment/Plan Diagnoses and all orders for this visit: Obstructive sleep apnea syndrome Essential hypertension Stage 3a chronic kidney disease (CMS-HCC) Body mass index is 26.17 kg/m??. Follow up plan to address BMI is good. Follow up plan to address tobacco use is see above documented in this encounter Plan of Treatment Scheduled Orders Name Type Priority Associated Diagnoses Orde r Schedule CBC (includes Differential/Platel ets) Lab Routine Obstructive sleep apnea syndrome Essential hypertension Stage 3a chronic kidney disease (CMS-HCC) 1 Occurrences starting 12/03/2021 until 12/03/2022 PTH Intact w/o Calcium, Serum Lab Routine Obstructive sleep apnea syndrome Essential hypertension Stage 3a chronic kidney disease (CMS-HCC) 1 Occurrences starting 12/03/2021 until 12/03/2022 Renal Function Panel (RFP) Lab Routine Obstructive sleep apnea syndrome Essential hypertension Stage 3a chronic kidney disease (CMS-HCC) 1 Occurrences starting 12/03/2021 until 12/03/2022 Total Protein w/ Creatinine, Urine, Random Lab Routine Obstructive sleep apnea syndrome Essential hypertension Stage 3a chronic kidney disease (CMS-HCC) 1 Occurrences starting 12/03/2021 until 12/03/2022 Vitamin D, 25-Hydroxy, Serum Lab Routine Obstructive sleep apnea syndrome Essential hypertension Stage 3a chronic kidney disease (CMS-HCC) Secondary hyperparathyroidism (CMS-HCC) 1 Occurrences starting 12/03/2021 until 12/03/2022 documented as of this encounter Visit Diagnoses Diagnosis Obstructive sleep apnea syndrome- Primary Essential hypertension Stage 3a chronic kidney disease (CMS-HCC) Secondary hyperparathyroidism (CMS-HCC) documented in this encounter Care Teams Vat House Laborer Relationship Specialty Start Date End Date Scott Galvez MD [address] [place] [id number] PCP - General Internal Medicine 05/21/21 documented as of this encounter
--- OUTSIDE RECORDS SUMMARY | 2024-02-03 11:36 | XMS_ITS | Encounter Summary ---
Author Organization Jeny Physician Judi utishawanda Address [address] [place] [address] Phone Care Team Providers Care Sanding Machine Tender Name Role Phone Scott Galvez MD Primary Care Provider [phone] Encounter Details Date Type Department Care Team (Late st Contact Info) Description 06/12/2021 Telephone [facility] Nephrology and Hypertension [facility] [facility], [address] [facility] [place] [address] Joe Olivier MD [address] [facility], [address] [facility] [place] [address] Social History Tobacco Use Types Packs/Day Years [...] * Telephone Encounter - Dayanara Ortiz - 06/12/2021 10:18 AM CDT spk w/ pt - stated she had labs done at PCP office Requested that you see them. Called PCP - LMOR to req copy of results fax to us documented in this encounter Plan of Treatment Not on file documented as of this encounter Visit Diagnoses Not on filedocumented in this encounter Care Teams Sanding Machine Tender Relationship Specialty Start Date End Date Scott Galvez MD [address] [place] [id number] PCP - General Internal Medicine 05/21/21 documented as of this encounter
--- OUTSIDE RECORDS SUMMARY | 2024-02-03 11:37 | XMS_ITS | Continuity of Care Document ---
Author Organization [employer] [facility] [employer] [facility] [place] [address] [facility] [address] [place] [address] Phone Care Team Providers Care Branch Examiner Name Role Phone Jm Burrows MD Unavailable Unavailable Medications Medication Instructions Dosage Effective Dates (start - stop) Status Comments diclofenac 0.1 % Eye Drops Instill 1 drop in the operated eye Three times a day - Active Synthroid 137 mcg tablet - Active Klor-Con 10 mEq tablet,extended release - Active Novolin 70/30 100 unit/mL (70-30) Susp, Sub-Q Inj - Active Lasix 40 mg tablet - Active lovastatin 20 mg tablet - Active lisinopril 20 mg-hydrochlorothiazid e 12.5 mg tablet - Active metformin 500 mg tablet - Active metoprolol succinate ER 25 mg tablet,extended release 24 hr - Active amlodipine 5 mg tablet - Active Procedures Procedure Date Post-op Follow-up Visit Post-op Follow-up Visit Remove Cataract, Post Op Care 3 Remove Cataract, Insert Lens,Comanaged D IOLMaster-Professional Eye Exam, New Patient IOLMaster-Technical No Charge Refraction Fundus Photography W/ Report Communication Performed Dilated Macular Or Fundus Exam Findings Communicat Macular Or Fundus Exam Performed 2012 Office/outpatient Visit, New Dilated Retinal Exam W Interpretation Se Advance Directives Directive Yes / No Effective Date File Name No Information Encounters Encounter Description Practice Location Reason(s) For Visit Diagnoses Date Provider Providers Copied on Encounter [facility], [address], [place], [place], [address], [place] tel:[phone] SEC Faheem SOW Professional a comprehensive exam (chief complaint) FOLLOW-UP SURGERY NOS 4 Stormy Oneal. [address] [facility], [address], [place], [place], [address], [place]. tel:[phone] Referring Provider: Maulik Blanco, [id number], [place], [address] . tel:[phone] [facility], [address], [place], [place], [address], [place] [phone] SEC Faheem JUANJOSE Professional a comprehensive exam (chief complaint) FOLLOW-UP SURGERY NOS 3 Stormy Oneal. [address] [facility], [address], [place], [place], [address], [place]. tel:[phone] Referring Provider: Maulik Blanco, [id number], [place], [address] . tel:[phone] [facility], [address], [place], [place], [address], [place] tel:[phone] SEC Faheem SOW Professional a comprehensive exam (chief complaint) FOLLOW-UP SURGERY NOS 3 Vani Agrawal. [address] [facility], [address], [place], [address], [place]. tel:[phone] Referring Provider: Maulik Blanco, [id number], [place], [address] . tel:[phone] [facility], [address], [place], [place], [address], [place] [phone] [facility] No Information 3 Latrice Willingham. [email or web address], [address], [place], [place], [address], [place]. tel:[phone] Referring Provider: Maulik Blanco, [facility] [email or web address], [place], [address] . tel:[phone] [facility] [employer] [facility], [address] [place], [place] [address] [place] [address], [place], [place], [address], [place] tel:[phone] SEC Maurice Branham No Information 3 Latrice Willingham. [email or web address], [address], [place], [place], [address], [place]. tel:[phone] Referring Provider: Maulik Blanco, [facility] [email or web address], [place], [address] . tel:[phone] [facility], [facility] [address], [place], [place], [address], [place] tel:[phone] SEC Maurice N Lindberg No Information 3 Latrice Willingham. [facility] [email or web address], [address], [place], [place], [address], [place]. tel:[phone] [facility] [facility], [address], [place], [place], [address], [place] tel:[phone] SEC Faheem SOW Professional a comprehensive exam (chief complaint) SENILE NUCLEAR CATARACTDMII OPHTH NT [facility] RETINOPATHY NOS 3 Latrice Willingham. [facility] [email or web address], [address], [place], [place], [address], [place]. tel:[phone] Referring Provider: Maulik Blanco, [facility] [email or web address], [place], [address] . tel:[phone] [facility], [facility] [address], [place], [place], [address], [place] tel:[phone] [facility] No Information Oct- 6200 [address] Philomena Chaneyn. [address] [facility] , [address], [place], [address], [place]. tel:[phone] Referring Provider: Deni Anderson, [address] [place], [address]. tel:[phone] Family History Family Member Type Diagnosis Age At Onset No Information Payers Payer name Insurance type Covered green party ID Authoriza tion(s) No Information Social History Type Description Quantity Date Captured Comments Sex Female Smoking Status No Information Chief Complaint And Reason For Visit From encounter dated '02/27/2013 14:45'. a comprehensive exam (chief complaint) Reason For Referral Reason For Referral No Information History Of Present Illness Encounter Date Complaint History Of Prese nt Illness No Information Functional Status Date Functional Assessmen t No Information Instructions Date Instruction Additional Infor redd - 3weeks-refract os Related to F OLLOW-UP SURGERY NOS cme s/p cat surg-hx of dm-improving vis was 20/80 2weeks s/p surg and now 5weeks s/p surg is 20/40 without - cont pred and diclofenac bid Related to FOLLOW-UP SURGERY NOS - RTC in 2 weeks for post op Rel ated to See impression: general plan General plan -FOLLOW -UP SURGERY NOS - Post op to s/p Phaco w/ IOL OS. Discussed macular edema in the left eye after having cataract sx. Will continue to monitor. Discussed seeing retina specialist if no improvement at next visit. Continue using same medications. RTC in 2 weeks for post op. Repeat IOL Master in OD at next visit. Pt will cancel cataract sx for the right eye until issue with the left eye has been resolved. Educational materials provided:about today's exam. Related to See impression: general plan - RTC in 1 week Related to FOLLO W-UP SURGERY NOS - RTC in 1 week Related to FOLLO W-UP SURGERY NOS FOLLOW-UP SURGERY NO S - One day s/p phaco with IOL OS. IOL in good position. Medication instillation and post op instructions reviewed. Sample of Cosopt BID OS provided to pt today. RTC in 1 week or sooner if problems. Educational materials provided:about today's exam. Related to FOLLOW-UP SURGERY NOS - Schedule CE OS first - Standar d lens Related to See impression: general plan General plan -SENILE NUCLEAR CATARACT -DMII OPHTH NT ST UNCN[facility] -DIABETIC RETINOPATHY NOS - Cataracts account for the patient's complaints. Discussed all risks, benefits, procedures and recovery. Patient understands changing glasses will not improve vision. Patient desires to have surgery, recommend phacoemulsification with intraocular lens. Discussed toric lens option. Pt understands that she will need glasses for dist and near va with standard lens. Schedule CE OS first - Standard. Letter sent to Dr. Raymond Castro. Discussed Diabetic Retinopathy in detail with pt and emphasized blood sugar control. Educational materials provided:Cataract and Diabetes. Related to See impression: general plan Assessments Type Assessment Date No Information Patient Care Teams Name Effective Dates (start - stop) Status Members No Information
--- OUTSIDE RECORDS SUMMARY | 2024-02-03 12:28 | XMS_ITS | Encounter Summary ---
Author Organization Jeny Physician Judi utishawanda Address [address] [place] [address] Phone Care Team Providers Care Strike On Machine Operator Name Role Phone Scott Galvez MD Primary Care Provider [phone] Encounter Details Date Type Department Care Team (Late st Contact Info) Description 07/07/2021 Telephone [facility] Nephrology and Hypertension [address] [facility], [address] [place] [address] Joe Olivier MD [address] [facility], SUITE [facility] [place] [address] Social History Tobacco Use Types Packs/Day Years [...] Urine 182(H) 21 - 161 mg/g creat [facility] ([facility]) Protein/Creati nine, Urine 0.182(H) 0.021 - 0.161 mg/mg creat [facility] ([facility]) Protein, Urine 6 5 - 24 mg/dL [facility] ([facility]) 09/01/2021 7:22 AM CDT 09/01/2021 7:22 AM CDT Narrative Resulting Agency Comment Performing Organization Information: ?Site ID: [place] ?Name: [facility] ?Address: [address] [place] [address] [place] [address] ?Director: Spenser Maguire D.O., MPH Joe Olivier MD LAB URINE ORDERABLES [facility] (ST) * (ABNORMAL) Renal Function Panel (RFP) (09/01/2021 7:22 AM CDT) Glucose, Serum/Plasma 86 65 - 99 mg/dL [facility] ([facility]) Comment: ? Fasting reference interval Urea nitrogen, Serum/Plasma (BUN) 46(H) 7 - 25 mg/dL [facility] ([facility]) Creatinine, Serum/Plasma 1.26(H) 0.60 - 1.00 mg/dL [facility] ([facility]) Estimated Glomerular Filtration Rate (eGFR) 43(L) > OR = 60 mL/min/1.7 3m2 [facility] ([facility]) Comment: The [...] Potassium, Serum/Plasma 4.7 3.5 - 5.3 mmol/L [facility] ([facility]) Chloride, Serum/Plasma 106 98 - 110 mmol/L [facility] ([facility]) Carbon dioxide CO2), total, Serum/Plasma 31 20 - 32 mmol/L [facility] ([facility]) Calcium, Serum/Plasma 9.8 8.6 - 10.4 mg/dL [facility] ([facility]) Phosphate, Serum/Plasma 4.4(H) 2.1 - 4.3 mg/dL [facility] ([facility]) Albumin, Serum/Plasma 4.0 3.6 - 5.1 g/dL [facility] ([facility]) Blood 09/01/2021 7:22 AM CDT 09/01/2021 7:22 AM CDT Narrative Resulting Agency Comment Performing Organization Information: ?Site ID: [place] ?Name: [facility] ?Address: [facility] [place] [address] ?Director: Spenser Maguire D.O., MPH Joe Olivier MD LAB BLOOD ORDERABLES [facility] ([facility]) documented in this encounter Visit Diagnoses Diagnosis Stage 3a chronic kidney disease (CMS-HCC)- Primary documented in this encounter Care Teams Strike On Machine Operator Relationship Specialty Start Date End Date Scott Galvez MD [address] [place] [address] PCP - General Internal Medicine 05/21/21 documented as of this encounter
--- OUTSIDE RECORDS SUMMARY | 2024-02-03 12:28 | XMS_ITS | Encounter Summary ---
Author Organization Jeny Physician Judi utishawanda Address [address], [place] [address] Phone Care Team Providers Care Quality Control Supervisor Name Role Phone Scott Galvez MD Primary Care Provider [phone] Encounter Details Date Type Department Care Team (Latest Contact Info) Description 12/03/2021 1:45 PM CDT Office Visit [facility] Nephrology and Hypertension [address] [place] [address], [address] [place] [address] Joe Olivier MD [address] [facility], [address] [place] [address] Obstructive sleep apnea syndrome (Primary Dx); Essential hypertension; Stage 3a chronic kidney disease ([facility]-HCC); Secondary hyperparathyroidism ([facility]) Social History Tobacco Use Types Packs/Day Years [...] (CMS-HCC) documented in this encounter Care Teams Quality Control Supervisor Relationship Specialty Start Date End Date Scott Galvez MD [address] [place] [phone] PCP - General Internal Medicine 05/21/21 documented as of this encounter
--- OUTSIDE RECORDS SUMMARY | 2024-02-03 12:28 | XMS_ITS | Encounter Summary ---
Author Organization Jeny Physician Judi utishawanda Address [address], [place] [address] Phone Care Team Providers Care Shower Enclosure Installer Name Role Phone Jessee Gregg MD Primary Care Provider [phone] Encounter Details Date Type Department Care Team (Late st Contact Info) Description 07/04/2020 Telephone [facility] Nephrology and Hypertension [address] [facility], [address] [place] [address] Rosario Olivier MA Social History Tobacco Use [...] on filedocumented in this encounter Care Teams Shower Enclosure Installer Relationship Specialty Start Date End Date Jessee Gregg MD [address] [address] PCP - General Family Medicine 09/07/19 05/20/21 documented as of this encounter
--- OUTSIDE RECORDS SUMMARY | 2024-02-03 12:28 | XMS_ITS | Encounter Summary ---
Author Organization Jeny Physician Judi utishawanda Address [address] [place] [address] Phone Care Team Providers Care Automatic Embroidery Machine Tender Name Role Phone Scott Galvez MD Primary Care Provider [phone] Encounter Details Date Type Department Care Team (Late st Contact Info) Description 05/19/2021 Telephone [facility] Nephrology and Hypertension [address] [facility], [address] [facility] [place] [address] Joe Olivier MD [address] [facility], [address] [place] [address] Social History Tobacco Use Types Packs/Day Years [...] on filedocumented in this encounter Care Teams Automatic Embroidery Machine Tender Relationship Specialty Start Date End Date Scott Galvez MD [address] [place] [address] PCP - General Internal Medicine 05/21/21 documented as of this encounter
--- OUTSIDE RECORDS SUMMARY | 2024-02-03 12:28 | XMS_ITS | Encounter Summary ---
Author Organization Jeny Physician Judi utishawanda Address [address] [place] [address] Phone Care Team Providers Care Business And Services Instructor Name Role Phone Selvin Martinez MD Primary Care Provider [phone] Encounter Details Date Type Department Care Team (Late st Contact Info) Description 03/30/2019 Telephone [facility] Nephrology and Hypertension [address] [facility], [address] [facility] [place] [address] Joe Olivier MD [address] [facility], [address] [place] [address] Social History Tobacco Use Types Packs/Day Years [...] PM CST No sign of labs at [facility]. Did she go somewhere else? * Telephone Encounter - Rosario Olivier - 03/30/2019 9:45 AM CST Pt had labs done at [facility] on 03-20-19 and is asking for results. PC documented in this encounter Plan of Treatment Not on file documented as of this encounter Visit Diagnoses Not on filedocumented in this encounter Care Teams Business And Services Instructor Relationship Specialty Start Date End Date Selvin Martinez MD [address] [place] [address] [address] [place] [address] PCP - General Family Medicine 02/22/19 09/06/19 documented as of this encounter
--- OUTSIDE RECORDS SUMMARY | 2024-02-03 12:28 | XMS_ITS | Encounter Summary ---
Author Organization Jeny Physician Judi utishawanda Address [address] [place] [address] Phone Care Team Providers Care Home Health Caregiver Name Role Phone Jessee Gregg MD Primary Care Provider [phone] Encounter Details Date Type Department Care Team (Late st Contact Info) Description 09/19/2019 Telephone [facility] Nephrology and Hypertension [address] [facility], [address] [place] [address] Joe Olivier MD [address] [facility], [address] [facility] [place] [address] Social History Tobacco Use Types Packs/Day Years [...] CREATININE, URINE, RANDOM Routine 12/27/2019 9:13 AM PRODUCTION AIDE Chronic kidney disease stage 3 VITAMIN D, 25-HYDROXY, SERUM Routine 12/27/2019 9:13 AM PRODUCTION AIDE Chronic kidney disease stage 3 CBC (INCLUDES DIFFERENTIAL/PLATEL ETS) Routine 12/27/2019 9:13 AM PRODUCTION AIDE Chronic kidney disease stage 3 RENAL FUNCTION PANEL (RFP) Routine 12/27/2019 9:13 AM PRODUCTION AIDE Chronic kidney disease stage 3 PTH INTACT W/O CALCIUM, SERUM Routine 12/27/2019 9:13 AM PRODUCTION AIDE Chronic kidney disease stage 3 documented in this encounter Results * (ABNORMAL) Vitamin D, 25-Hydroxy, Serum (12/27/2019 9:13 AM PRODUCTION AIDE) Calcidiol, Serum/Plasma 25(L) 30 - 100 ng/mL [facility] (STL) Comment: Vitamin D Status ? 25-OH Vitamin D: Deficiency: ?<20 ng/mL Insufficiency: ? 20 - 29 ng/mL Optimal: ? > or = 30 ng/mL For 25-OH Vitamin D testing on patients on D2-supplementation and patients for whom quantitation of D2 and D3 fractions is required, the QuestAssureD(TM) 25-OH VIT D, (D2,D3), LC/MS/MS is recommended: order code 26791 (patients >2yrs). See Note 1 Note 1 For additional information, please refer to http://education.[employer].Atonarp/faq/IZF227 (This link is being provided for informational/ educational purposes only.) 12/27/2019 9:13 AM PRODUCTION AIDE 12/27/2019 9:14 AM PRODUCTION AIDE Narrative Resulting Agency Comment Performing Organization Information: ?Site ID: [place] ?Name: [employer] ?Address: [address] [place] [address] ?Director: Spenser Maguire D.O., MPH Joe Olivier MD LAB BLOOD ORDERABLES Performing Organization Address [facility] Co de Phone Number [facility] (ST) * (ABNORMAL) Total Protein w/ Creatinine, Urine, Random (12/27/2019 9:13 AM PRODUCTION AIDE) Creatinine, Urine 21 20 - 275 mg/dL [facility] ([facility]) Protein/Creatin ine, Urine NOTE 21 - 161 mg/g creat [facility] ([facility]) Comment: THE PROTEIN VALUE IS LESS THAN 4 MG/DL THEREFORE WE ARE UNABLE TO CALCULATE EXCRETION AND/OR CREATININE RATIO. ?? Protein/Creatin ine, Urine NOTE 0.021 - 0.161 mg/mg creat [facility] ([facility]) Protein, Urine <4(L) 5 - 24 mg/dL [facility] ([facility]) Comment: Verified by repeat analysis. 12/27/2019 9:13 AM PRODUCTION AIDE 12/27/2019 9:14 AM PRODUCTION AIDE Narrative Resulting Agency Comment Performing Organization Information: ?Site ID: [place] ?Name: [employer] [place] ?Address: [facility] [place] [address] ?Director: Spenser Maguire D.O. MPH Joe Olivier MD LAB URINE ORDERABLES Performing Organization Address [facility] de Phone Number [facility] ([facility]) * (ABNORMAL) Renal Function Panel (RFP) (12/27/2019 9:13 AM PRODUCTION AIDE) Glucose, Serum/Plasma 103(H) 65 - 99 mg/dL [facility] ([facility]) Comment: ? Fasting reference interval For someone without known diabetes, a glucose value between 100 and 125 mg/dL is consistent with prediabetes and should be confirmed with a follow-up test. Urea nitrogen, Serum/Plasma (BUN) 41(H) 7 - 25 mg/dL [facility] ([facility]) Creatinine, Serum/Plasma 1.16(H) 0.60 - 0.93 mg/dL [facility] ([facility]) Comment: For patients >49 years of age, the reference limit for Creatinine is approximately 13% higher for people identified as -Lao. eGFR, non 45(L) > OR = 60 mL/min/1. 73m2 [facility] ([facility]) eGFR, 52(L) > OR = 60 mL/min/1. 73m2 [facility] ([facility]) Urea nitrogen/Creatinin e, Serum/Plasma 35(H) 6 - 22 (calc) [facility] ([facility]) Sodium, Serum/Plasma 144 135 - 146 mmol/L [facility] ([facility]) Potassium, Serum/Plasma 4.6 3.5 - 5.3 mmol/L [facility] ([facility]) Chloride, Serum/Plasma 108 98 - 110 mmol/L [facility] ([facility]) Carbon dioxide CO2), total, Serum/Plasma 28 20 - 32 mmol/L [facility] ([facility]) Calcium, Serum/Plasma 9.5 8.6 - 10.4 mg/dL [facility] ([facility]) Phosphate, Serum/Plasma 4.4(H) 2.1 - 4.3 mg/dL [facility] ([facility]) Albumin, Serum/Plasma 4.0 3.6 - 5.1 g/dL [facility] (ST) Blood 12/27/2019 9:13 AM PRODUCTION AIDE 12/27/2019 9:14 AM PRODUCTION AIDE Narrative Resulting Agency Comment Performing Organization Information: ?Site ID: [place] ?Name: [employer] ?Address: [address] [address] [place] [address] ?Director: Spenser Maguire D.O., MPH Joe Olivier MD LAB BLOOD ORDERABLES [facility] (ST) * (ABNORMAL) PTH Intact w/o Calcium, Serum (12/27/2019 9:13 AM PRODUCTION AIDE) Pathologist [facility] PTH, Intact, Serum/Plasma 65(H) 14 - 64 pg/mL [facility] ([facility]) Comment: Interpretive Guide ?Intact PTH ? Calcium ? ------- Normal Parathyroid ?Normal ? Normal Hypoparathyroidism ?Low or Low Normal ?Low Hyperparathyroidism ?? Primary ?Normal or High ? High ?? Secondary ?High ? Normal or Low ?? Tertiary ? High ? High Non-Parathyroid ?? Hypercalcemia ?Low or Low Normal ?High Blood 12/27/2019 9:13 AM PRODUCTION AIDE 12/27/2019 9:14 AM PRODUCTION AIDE Narrative Resulting Agency Comment Performing Organization Information: ?Site ID: [place] ?Name: [employer] ?Address: [address] [facility] [place] [address] ?Director: Spenser Maguire D.O., MPH Joe Olivier MD LAB BLOOD ORDERABLES [facility] ([facility]) * (ABNORMAL) CBC (includes Differential/Platelets) (12/27/2019 9:13 AM PRODUCTION AIDE) Pathologist [facility] Leukocytes, Blood 7.5 3.8 - 10.8 Thousand/u L [facility] ([facility]) Erythrocytes (RBC) 4.77 3.80 - 5.10 Million/uL [facility] ([facility]) Hemoglobin (HGB) 15.2 11.7 - 15.5 g/dL [facility] ([facility]) Hematocrit (HCT) 45.6(H) 35.0 - 45.0 % [facility] ([facility]) MCV 95.6 80.0 - 100.[address] [facility] ([facility]) MCH 31.9 27.0 - 33.0 pg [facility] ([facility]) MCHC 33.3 32.0 - 36.0 g/dL [facility] ([facility]) Erythrocyte Distribution Width (RDW) 12.0 11.0 - 15.0 % [facility] ([facility]) Platelets, Blood 261 140 - 400 Thousand/u L [facility] ([facility]) Platelet mean volume, Blood 11.2 7.5 - 12.5 fL [facility] ([facility]) Neutrophils, Blood 4,230 1,500 - 7,800 cells/uL [facility] ([facility]) Lymphocytes, Blood 2,273 850 - 3,900 cells/uL [facility] [place] ([facility]) Monocytes, Blood 593 200 - 950 cells/uL [facility]. [facility] [place] ([facility]) Eosinophils, Blood 323 15 - 500 cells/uL [facility]. [facility] [place] ([facility]) Basophils, Blood 83 0 - 200 cells/uL [facility]. [facility] [place] ([facility]) Neutrophils/100 leukocytes, Blood [...] [facility] [place] ([facility]) Blood 12/27/2019 9:13 AM PRODUCTION AIDE 12/27/2019 9:14 AM PRODUCTION AIDE Narrative Resulting Agency Comment Performing Organization Information: ?Site ID: [place] ?Name: [facility] [place] ?Address: [address] [place], [place] [address] [address] ?Director: Spenser Maguire D.O., MPH Joe Olivier MD LAB BLOOD ORDERABLES [facility] ([facility]) documented in this encounter Visit Diagnoses Diagnosis Chronic kidney disease stage 3 (CMS-HCC)- Primary documented in this encounter Care Teams Home Health Caregiver Relationship Specialty Start Date End Date Jessee Gregg MD [address] [address] PCP - General Family Medicine 09/07/19 05/20/21 documented as of this encounter
--- OUTSIDE RECORDS SUMMARY | 2024-02-03 12:28 | XMS_ITS | Clinical Summary ---
Author Organization Jeny meraz Address [address] [place] [address] Phone Care Team Providers Care Lining Finisher Name Role Phone Scott Galvez MD Primary Care Provider [phone] Allergies No known active allergies Medications Medication [...] 08/01/2019 Active pen needle, diabetic (Droplet Pen [place]) 31G X 5 MM misc 05/25/2019 Active glucose blood (Accu-Chek Corrie Plus) test strip 07/12/2019 Active Continuous Blood Gluc Sensor (FreeStyle Sophia 14 Day Sensor) misc Use with Freestyle Sophia monitor 11/07/2019 Active Continuous Blood Gluc Rotary Peel Oven Tender (FreeStyle Sophia 14 Day [place]) device Use with Freestyle Sophia Sensor 11/07/2019 [...] 11/08/2019, 12/15/2018, Additional history exists Care Teams Lining Finisher Relationship Specialty Start Date End Date Scott Galvez MD [address] [place] [address] PCP - General Internal Medicine 05/21/21
--- OUTSIDE RECORDS SUMMARY | 2024-02-03 12:28 | XMS_ITS | Encounter Summary ---
Author Organization Jen[facility] Physician Judi meraz Address [address], [place] [address] Phone Care Team Providers Care Epic Radiant Analyst Name Role Phone Jessee Gregg MD Primary Care Provider [phone] Encounter Details Date Type Department Care Team (Late st Contact Info) Description 07/03/2020 9:45 AM CDT Office Visit [facility] Nephrology and Hypertension [address] [place] [address], [address] [place] [address] Haydee Olivier MD [address] [facility], [address] [place] [address] Obstructive sleep apnea syndrome (Primary Dx); Essential [...] Essential hypertension Stage 3a chronic kidney disease ([facility]) Hyperlipidemia, not otherwise specified Body mass index is 27.34 kg/m??. Follow up plan to address tobacco use is quit. . See above Diagnoses and all orders for this visit: Obstructive sleep apnea syndrome Essential hypertension Stage 3a chronic kidney disease ([facility]) Hyperlipidemia, not otherwise specified Body mass index is 27.34 kg/m??. Follow up plan to address BMI is high. Follow up plan to address tobacco use is stop. . See above Assessment/Plan Diagnoses and all orders for this visit: Obstructive sleep apnea syndrome Essential hypertension Stage 3a chronic kidney disease ([facility]) Hyperlipidemia, not otherwise specified Body mass index [...] Performing Organization Information: ?Site ID: [place] ?Name: [facility] ?Address: [address] [place] [address] ?Director: Spenser Maguire D.O., MPH Haydee Olivier MD LAB BLOOD ORDERABLES Performing Organization Address [facility] de Phone Number [facility] ([facility]) * (ABNORMAL) Total Protein w/ Creatinine, Urine, Random (11/01/2020 10:56 AM CDT) Creatinine, Urine 20 20 - 275 mg/dL [facility] ([facility]) Protein/Creatin ine, Urine NOTE 21 - 161 mg/g creat [facility] ([facility]) Comment: THE PROTEIN VALUE IS LESS THAN 4 MG/DL THEREFORE WE ARE UNABLE TO CALCULATE EXCRETION AND/OR CREATININE RATIO. ?? Protein/Creatin ine, Urine NOTE 0.021 - 0.161 mg/mg creat [facility] ([facility]) Protein, Urine <4(L) 5 - 24 mg/dL [facility] ([facility]) Comment: Verified by repeat analysis. 11/01/2020 10:5 6 AM CDT 11/01/2020 10:56 AM CDT Narrative [facility] ([facility]) - 11/04/2020 12:53 PM CDT PATIENT REFUSED SOME TESTING; PATIENT ENCOURAGED TO RETURN. Resulting Agency Comment Performing Organization Information: ?Site ID: [place] ?Name: [facility] ?Address: [facility] [place] [address] ?Director: Spenser Maguire D.O., MPH Haydee Olivier MD LAB URINE ORDERABLES Performing Organization Address [facility] Co de Phone Number [facility] ([facility]) * (ABNORMAL) Renal Function Panel (RFP) (11/01/2020 10:56 AM CDT) Pathologist [facility] Glucose, Serum/Plasma 63(L) 65 - 99 mg/dL [facility] ([facility]) Comment: ? Fasting reference interval Urea nitrogen, Serum/Plasma (BUN) 45(H) 7 - 25 mg/dL [facility] ([facility]) Creatinine, Serum/Plasma 1.23(H) 0.60 - 0.93 mg/dL [facility] (ST) Comment: For patients >49 years of age, the reference limit for Creatinine is approximately 13% higher for people identified as -[place] Citizen. eGFR, non 42(L) > OR = 60 mL/min/1. 73m2 [facility] (L) eGFR, 48(L) > OR = 60 mL/min/1. 73m2 [facility] (ST[facility]) Urea nitrogen/Creatinin e, Serum/Plasma 37(H) 6 - 22 (calc) [facility] ([facility]) Sodium, Serum/Plasma 147(H) 135 - 146 mmol/L [facility] ([facility]) Potassium, Serum/Plasma 4.9 3.5 - 5.3 mmol/L [facility] ([facility]) Chloride, Serum/Plasma 108 98 - 110 mmol/L [facility] (ST) Carbon dioxide CO2), total, Serum/Plasma 30 20 - 32 mmol/L [facility] (ST) Calcium, Serum/Plasma 10.2 8.6 - 10.4 mg/dL [facility] ([facility]) Phosphate, Serum/Plasma 4.9(H) 2.1 - 4.3 mg/dL [facility] ([facility]) Albumin, Serum/Plasma 4.3 3.6 - 5.1 g/dL [facility] ([facility]) Blood 11/01/2020 10:5 6 AM CDT 11/01/2020 10:56 AM CDT Narrative [facility] (ST) - 11/04/2020 12:53 PM CDT PATIENT REFUSED SOME TESTING; PATIENT ENCOURAGED TO RETURN. Resulting Agency Comment Performing Organization Information: ?Site ID: [place] ?Name: [facility] [employer] ?Address: [address] [place] [address] ?Director: Spenser Maguire D.O., MPH Haydee Olivier [...] Agency Comment Performing Organization Information: ?Site ID: [place] ?Name: [facility] ?Address: [address] [place] [address] ?Director: Spenser Maguire D.O., MPH Haydee Olivier MD LAB BLOOD ORDERABLES [facility] ([facility]) * (ABNORMAL) CBC (includes Differential/Platelets) (11/01/2020 10:56 AM CDT) [facility] Leukocytes, Blood 10.1 3.8 - 10.8 Thousand/u [...] Agency Comment Performing Organization Information: ?Site ID: [place] ?Name: [facility] ?Address: [facility] [address] [place] [address] ?Director: Spenser Maguire D.O., MPH Haydee Olivier MD LAB BLOOD ORDERABLES [facility] ([facility]) documented in this encounter Visit Diagnoses Diagnosis Obstructive sleep apnea syndrome- Primary Essential hypertension Stage 3a chronic kidney disease ([facility]) Hyperlipidemia, not otherwise specified documented in this encounter Care Teams Epic Radiant Analyst Relationship Specialty Start Date End Date Jessee Gregg MD [address] [address] PCP - General Family Medicine 09/07/19 05/20/21 documented as of this encounter
--- OUTSIDE RECORDS SUMMARY | 2024-02-03 12:28 | XMS_ITS | Encounter Summary ---
Author Organization Jeny Physician Judi utishawanda Address [address] [address] Phone Care Team Providers Care Systems Integration Manager Name Role Phone Jessee Gregg MD Primary Care Provider [phone] Encounter Details Date Type Department Care Team (Latest Contact Info) Description 11/07/2020 10:45 AM CDT Office Visit [facility] Nephrology and Hypertension [address] [place] [address], [address] [place] [address] Joe Olivier MD [address] [facility], [address] [place] [address] Obstructive sleep apnea syndrome (Primary Dx); Essential hypertension; Stage 3a chronic kidney disease ([facility]); Hyperlipidemia, not otherwise specified; Secondary hyperparathyroidism ([facility]) Social History Tobacco Use Types Packs/Day Years [...] [facility] The patient has coronary disease. She has [...] Future Hyperlipidemia, not otherwise specified Secondary hyperparathyroidism ([facility]) - Vitamin D, 25-Hydroxy, Serum; Future Follow up plan to address tobacco use is quit. . See above Diagnoses and all orders for this visit: Obstructive sleep apnea syndrome Essential hypertension Stage 3a chronic kidney disease ([facility]) Hyperlipidemia, not otherwise specified Body mass index is 26.95 kg/m??. Follow up plan to address tobacco use is quit. . See above Diagnoses and all orders for this visit: Obstructive sleep apnea syndrome Essential hypertension Stage 3a chronic kidney disease ([facility]) Hyperlipidemia, not otherwise specified Body mass index [...] CREATININE, URINE, RANDOM Routine 04/14/2021 10:21 AM DESULPHURING OPERATOR Stage 3a chronic kidney disease ([facility]) VITAMIN D, 25-HYDROXY, SERUM Routine 04/14/2021 10:21 AM DESULPHURING OPERATOR Secondary hyperparathyroidism ([facility]) CBC (INCLUDES DIFFERENTIAL/PLAT ELETS) Routine 04/14/2021 10:21 AM DESULPHURING OPERATOR Stage 3a chronic kidney disease ([facility]-H[facility]) RENAL FUNCTION PANEL (RFP) Routine 04/14/2021 10:21 AM DESULPHURING OPERATOR Stage 3a chronic kidney disease ([facility]-H[facility]) PTH INTACT W/O CALCIUM, SERUM Routine 04/14/2021 10:21 AM DESULPHURING OPERATOR Stage 3a chronic kidney disease ([facility]) documented in this encounter Results * Vitamin D, 25-Hydroxy, Serum (04/14/2021 10:21 AM DESULPHURING OPERATOR) Calcidiol, Serum/Plasma 33 30 - 100 ng/mL [facility] ([facility]) Comment: Vitamin D Status ? 25-OH Vitamin D: Deficiency: ?<20 ng/mL Insufficiency: ? 20 - 29 ng/mL Optimal: ? > or = 30 ng/mL For 25-OH Vitamin D testing on patients on D2-supplementation and patients for whom quantitation of D2 and D3 fractions is required, the QuestAssureD(TM) 25-OH VIT D, (D2,D3), LC/MS/MS is recommended: order code 86586 (patients >2yrs). See Note 1 Note 1 For additional information, please refer to http://education.Adspringr/faq/TOH695 (This link is being provided for informational/ educational purposes only.) 04/14/2021 10:2 1 AM DESULPHURING OPERATOR 04/14/2021 10:22 AM DESULPHURING OPERATOR Narrative [facility]) - 04/16/2021 2:00 PM DESULPHURING OPERATOR FASTING:NO FASTING: NO Resulting Agency Comment Performing Organization Information: ?Site ID: [place] ?Name: [facility] ?Address: [id number] [place] [address] [place] [address] ?Director: Spenser Maguire D.O., MPH Joe Olivier MD LAB BLOOD ORDERABLES [facility]) * (ABNORMAL) Total Protein w/ Creatinine, Urine, Random (04/14/2021 10:21 AM DESULPHURING OPERATOR) Creatinine, Urine 27 20 - 275 mg/dL [facility] ([facility]) Protein/Creatin ine, Urine NOTE 21 - 161 mg/g creat [facility] ([facility]) Comment: THE PROTEIN VALUE IS LESS THAN 4 MG/DL THEREFORE WE ARE UNABLE TO CALCULATE EXCRETION AND/OR CREATININE RATIO. ?? Protein/Creatin ine, Urine NOTE 0.021 - 0.161 mg/mg creat [facility] ([facility]) Protein, Urine <4(L) 5 - 24 mg/dL [facility] ([facility]) Comment: Verified by repeat analysis. 04/14/2021 10:2 1 AM DESULPHURING OPERATOR 04/14/2021 10:22 AM DESULPHURING OPERATOR Narrative [facility] ([facility]) - 04/16/2021 2:00 PM DESULPHURING OPERATOR FASTING:NO FASTING: NO Resulting Agency Comment Performing Organization Information: ?Site ID: [place] ?Name: [facility] ?Address: [facility] [place] [address] ?Director: Spenser Maguire D.O., MPH Joe Olivier MD LAB URINE ORDERABLES [facility] ([facility]) * (ABNORMAL) Renal Function Panel (RFP) (04/14/2021 10:21 AM DESULPHURING OPERATOR) Glucose, Serum/Plasma 128 65 - 139 mg/dL [facility] ([facility]) Comment: ? Non-fasting reference interval Urea nitrogen, Serum/Plasma (BUN) 69(H) 7 - 25 mg/dL [facility] ([facility]) Creatinine, Serum/Plasma 1.54(H) 0.60 - 0.93 mg/dL [facility] ([facility]) Comment: For patients >49 years of age, the reference limit for Creatinine is approximately 13% higher for people identified as -[place]. eGFR, non 32(L) > OR = 60 mL/min/1. 73m2 [facility] ([facility]) eGFR, 37(L) > OR = 60 mL/min/1. 73m2 [facility] ([facility]) Urea nitrogen/Creatinin e, Serum/Plasma 45(H) 6 - 22 (calc) [facility] ([facility]) Sodium, Serum/Plasma 141 135 - 146 mmol/L [facility] ([facility]) Potassium, Serum/Plasma 5.2 3.5 - 5.3 mmol/L [facility] ([facility]) Chloride, Serum/Plasma 106 98 - 110 mmol/L [facility] ([facility]) Carbon dioxide CO2), total, Serum/Plasma 23 20 - 32 mmol/L [facility] ([facility]) Calcium, Serum/Plasma 9.8 8.6 - 10.4 mg/dL [facility] ([facility]) Phosphate, Serum/Plasma 5.2(H) 2.1 - 4.3 mg/dL [facility] ([facility]) Albumin, Serum/Plasma 4.1 3.6 - 5.1 g/dL [facility] ([facility]) Blood 04/14/2021 10:2 1 AM DESULPHURING OPERATOR 04/14/2021 10:22 AM DESULPHURING OPERATOR Narrative [facility] ([facility]) - 04/16/2021 2:00 PM DESULPHURING OPERATOR FASTING:NO FASTING: NO Resulting Agency Comment Performing Organization Information: ?Site ID: [place] ?Name: [facility] ?Address: [address] [place] [address] ?Director: Spenser Maguire D.O., MPH Joe Olivier MD LAB BLOOD ORDERABLES [facility] ([facility]) * (ABNORMAL) PTH Intact w/o Calcium, Serum (04/14/2021 10:21 AM DESULPHURING OPERATOR) PTH, Intact, Serum/Plasma 89(H) 14 - 64 pg/mL [facility] ([facility]) Comment: Interpretive Guide ?Intact PTH ? Calcium ? ------- Normal Parathyroid ?Normal ? Normal Hypoparathyroidism ?Low or Low Normal ?Low Hyperparathyroidism ?? Primary ?Normal or High ? High ?? Secondary ?High ? Normal or Low ?? Tertiary ? High ? High Non-Parathyroid ?? Hypercalcemia ?Low or Low Normal ?High Blood 04/14/2021 10:2 1 AM DESULPHURING OPERATOR 04/14/2021 10:22 AM DESULPHURING OPERATOR Narrative [facility] ([facility]) - 04/16/2021 2:00 PM DESULPHURING OPERATOR FASTING:NO FASTING: NO Resulting Agency Comment Performing Organization Information: ?Site ID: [place] ?Name: [facility] ?[facility] [address] [facility] [address] ?Director: Spenser Maguire D.O., MPH Joe Olivier MD LAB BLOOD ORDERABLES [facility] ([facility]) * CBC (includes Differential/Platelets) (04/14/2021 10:21 AM DESULPHURING OPERATOR) Pathologist [facility] Leukocytes, Blood 9.8 3.8 - 10.8 Thousand/u [...] [facility] ([facility]) Blood 04/14/2021 10:2 1 AM DESULPHURING OPERATOR 04/14/2021 10:22 AM DESULPHURING OPERATOR Narrative [facility] ([facility]) - 04/16/2021 2:00 PM DESULPHURING OPERATOR FASTING:NO FASTING: NO Resulting Agency Comment Performing Organization Information: ?Site ID: [place] ?Name: [facility] ?Address: [address] [place] [address] ?Director: Spenser Maguire D.O., MPH Joe Olivier MD LAB BLOOD ORDERABLES [facility] ([facility]) documented in this encounter Visit Diagnoses Diagnosis Obstructive sleep apnea syndrome- Primary Essential hypertension Stage 3a chronic kidney disease (CMS-HCC) Hyperlipidemia, not otherwise specified Secondary hyperparathyroidism (CMS-HCC) documented in this encounter Care Teams Systems Integration Manager Relationship Specialty Start Date End Date Jessee Gregg MD [address] [place] [address] PCP - General Family Medicine 09/07/19 05/20/21 documented as of this encounter
--- OUTSIDE RECORDS SUMMARY | 2024-02-03 12:28 | XMS_ITS | Encounter Summary ---
Author Organization Jeny Physician Judi meraz Address [address] [place] [address] Phone Care Team Providers Care Academic Guidance Specialist Name Role Phone Jessee Gregg MD Primary Care Provider [phone] Encounter Details Date Type Department Care Team (Late st Contact Info) Description 10/30/2020 Telephone [facility] Nephrology and Hypertension [address] [facility], [address] [place] [address] Annalisa Olivier, RN Social History Tobacco Use [...] on filedocumented in this encounter Care Teams Academic Guidance Specialist Relationship Specialty Start Date End Date Jessee Gregg MD [address] [facility] [address] [place] [address] PCP - General Family Medicine 09/07/19 05/20/21 documented as of this encounter
--- OUTSIDE RECORDS SUMMARY | 2024-02-03 12:28 | XMS_ITS | Encounter Summary ---
Author Organization Jeny Physician Judi utishawanda Address [address], [place] [address] Phone Care Team Providers Care Business Objects Name Role Phone Jessee Gregg MD Primary Care Provider [phone] Encounter Details Date Type Department Care Team (Late st Contact Info) Description 09/07/2019 9:00 AM CDT Office Visit [facility] Nephrology and Hypertension [address] [place] [address], [address] [place] [address] Joe Olivier MD [address] [facility], [address] [place] [address] Tobacco dependence syndrome (Primary Dx); Obstructive sleep [...] Essential hypertension Chronic kidney disease stage 3 ([facility]) Hyperlipidemia, not otherwise specified Body mass index [...] Lab Routine Chronic kidney disease stage 3 ([facility]) 1 Occurrences starting 09/13/2019 until 09/12/2020 Total Protein w/ Creatinine, Urine, Random Lab Routine Chronic kidney disease stage 3 ([facility]) 1 Occurrences starting 09/13/2019 until 09/12/2020 documented [...] approximately 13% higher for people identified as -[place]. eGFR, non 39(L) > OR = 60 mL/min/1. 73m2 [facility] ([facility]) eGFR, 45(L) > OR = 60 mL/min/1. 73m2 [facility] ([facility]) Urea nitrogen/Creatinin e, Serum/Plasma 40(H) 6 - 22 (calc) [facility] ([facility]) Sodium, Serum/Plasma 145 135 - 146 mmol/L [facility] ([facility]) Potassium, Serum/Plasma 5.0 3.5 - 5.3 mmol/L [facility] ([facility]) Chloride, Serum/Plasma 107 98 - 110 mmol/L [facility] ([facility]) Carbon dioxide CO2), total, Serum/Plasma 33(H) 20 - 32 mmol/L [facility] ([facility]) Calcium, Serum/Plasma 9.7 8.6 - 10.4 mg/dL [facility] ([facility]) Phosphate, Serum/Plasma 4.9(H) 2.1 - 4.3 mg/dL [facility] ([facility]) Albumin, Serum/Plasma 4.1 3.6 - 5.1 g/dL [facility] ([facility]) Blood 09/07/2019 8:37 AM CDT 09/07/2019 8:37 AM CDT Narrative Resulting Agency Comment Performing Organization Information: ?Site ID: [place] ?Name: [facility] ?Address: [address] [place] [address] ?Director: Spenser Maguire D.O., MPH Joe Olivier MD LAB BLOOD ORDERABLES [facility] ([facility]) documented in this encounter Visit Diagnoses Diagnosis Tobacco dependence syndrome- Primary Obstructive sleep apnea syndrome Coronary arteriosclerosis, not otherwise specified Essential hypertension Chronic kidney disease stage 3 (CMS-HCC) Hyperlipidemia, not otherwise specified documented in this encounter Care Teams Business Objects Relationship Specialty Start Date End Date Jessee Gregg MD [address] [facility] [address] [place] [address] PCP - General Family Medicine 09/07/19 05/20/21 documented as of this encounter
--- OUTSIDE RECORDS SUMMARY | 2024-02-03 12:28 | XMS_ITS | Encounter Summary ---
Author Organization Jeny Physician Judi utishawanda Address [address] [place] [address] Phone Care Team Providers Care Supplier Engineer Name Role Phone Jessee Gregg MD Primary Care Provider [phone] Encounter Details Date Type Department Care Team (Late st Contact Info) Description 04/24/2021 Telephone [facility] Nephrology and Hypertension [facility], [address] [place] [address] Joe Olivier MD [address] [facility], [address] [facility] [place] [address] Social History Tobacco Use Types Packs/Day Years [...] on filedocumented in this encounter Care Teams Supplier Engineer Relationship Specialty Start Date End Date Jessee Gregg MD [address] [address] PCP - General Family Medicine 09/07/19 05/20/21 documented as of this encounter
--- OUTSIDE RECORDS SUMMARY | 2024-02-03 12:28 | XMS_ITS | Encounter Summary ---
Author Organization Jeny Physician Judi utishawanda Address [address] [place] [address] Phone Care Team Providers Care Map Clerk Name Role Phone Jessee Gregg MD Primary Care Provider [phone] Encounter Details Date Type Department Care Team (Late st Contact Info) Description 04/17/2021 Telephone [facility] Nephrology and Hypertension [address] [facility], [address] [place] [address] Annalisa Olivier RN Social History Tobacco Use [...] Miscellaneous Notes * Telephone Encounter - Annalisa Oilvier RN - 04/17/2021 9:25 AM CST Pt [...] on filedocumented in this encounter Care Teams Map Clerk Relationship Specialty Start Date End Date Jessee Gregg MD [address] [facility] [address] [place] [address] PCP - General Family Medicine 09/07/19 05/20/21 documented as of this encounter
--- OUTSIDE RECORDS SUMMARY | 2024-02-03 12:28 | XMS_ITS | Encounter Summary ---
Author Organization Jeny Physician Judi utishawanda Address [address] [place] [address] Phone Care Team Providers Care Developer Programmer Analyst Name Role Phone Scott Galvez MD Primary Care Provider [phone] Encounter Details Date Type Department Care Team (Late st Contact Info) Description 05/15/2021 Telephone [facility] Nephrology and Hypertension [address] [facility], [address] [place] [address] Kassy Castillo MA Social History Tobacco Use [...] on filedocumented in this encounter Care Teams Developer Programmer Analyst Relationship Specialty Start Date End Date Scott Galvez MD [address] [place] [address] PCP - General Internal Medicine 05/21/21 documented as of this encounter
--- OUTSIDE RECORDS SUMMARY | 2024-02-03 12:28 | XMS_ITS | Encounter Summary ---
Author Organization Jeny Physician Judi utishawanda Address [address], [place] [address] Phone Care Team Providers Care Electroplating Technician Name Role Phone Jessee Gregg MD Primary Care Provider [phone] Encounter Details Date Type Department Care Team (Late st Contact Info) Description 09/26/2019 Telephone [facility] Nephrology and Hypertension [address] [facility], [address] [place] [address] Rosario Olivier MA Social History Tobacco Use [...] PM CDT Pt had ultrasound done at [place] 09-20-2019 and asks for results. documented in this encounter Plan of Treatment Not on file documented as of this encounter Visit Diagnoses Not on filedocumented in this encounter Care Teams Electroplating Technician Relationship Specialty Start Date End Date Jessee Gregg MD [address] [facility] [address] [place] [address] PCP - General Family Medicine 09/07/19 05/20/21 documented as of this encounter
--- OUTSIDE RECORDS SUMMARY | 2024-02-03 12:28 | XMS_ITS | Encounter Summary ---
Author Organization [facility] Address [address] [address] Phone Care Team Providers Care Composite Boat Builder Name Role Phone Jessee Gregg MD Primary Care Provider [phone] Encounter Details Date Type Department Care Team (Late st Contact Info) Description 01/03/2020 10:00 AM CHIEF SECURITY AND SAFETY OFFICER Office Visit [facility] Nephrology and Hypertension [address] [place] [address], [address] [place] [address] Joe Olivier MD [address] [facility], [address] [place] [address] Tobacco dependence syndrome (Primary Dx); Obstructive sleep [...] Comments Blood Pressure 122/80 01/03/2020 10:10 AM CHIEF SECURITY AND SAFETY OFFICER Pulse 60 01/03/2020 10:10 AM CHIEF SECURITY AND SAFETY OFFICER Temperature 37.4 ??C (99.3 ??F) 01/03/2020 10:[address] Respiratory Rate - - Oxygen Saturation - - Inhaled Oxygen Concentration - - Weight 63.5 kg (140 lb) 01/03/2020 10:10 AM CHIEF SECURITY AND SAFETY OFFICER Height 152.4 cm (5') 01/03/2020 10:10 AM CHIEF SECURITY AND SAFETY OFFICER Body Mass Index 27.34 01/03/2020 10:10 AM CHIEF SECURITY AND SAFETY OFFICER documented in this encounter Progress Notes * [...] orders - ergocalciferol (VITAMIN D-2) 1.25 MG (55012 UT) capsule; Take 1 capsule (50,000 Units [...] orders - ergocalciferol (VITAMIN D-2) 1.25 MG (11551 UT) capsule; Take 1 capsule (50,000 Units [...] D, Serum/Plasma 38 18 - 72 pg/mL [facility] ([facility]) Comment:See Note 1 Calcitriol, Serum/Plasma 38 pg/mL [facility] ([facility]) Comment:See Note 1 1,25-Dihydroxyvitam in D2, Serum/Plasma <8 pg/mL [facility] ([facility]) Comment: Vitamin D3, 1,25(OH)2 indicates both endogenous production and supplementation. Vitamin D2, 1,25(OH)2 is an indicator of exogenous sources, such as diet or supplementation. Interpretation and therapy are based on measurement of Vitamin D, 1,25 (OH)2, Total. See Note 1 See Note 2 06/19/2020 9:48 AM CDT 06/19/2020 9:49 AM CDT Narrative Resulting Agency Comment Performing Organization Information: ?Site ID: [id number] ?Name: [facility] ?Address: [address] [place] [id number] ?Director: Sadi Li M.D. Joe Olivier MD LAB BLOOD ORDERABLES [facility] ([facility]) * (ABNORMAL) Total Protein w/ Creatinine, Urine, Random (06/19/2020 9:48 AM CDT) Creatinine, Urine 25 20 - 275 mg/dL [facility] ([facility]) Protein/Creatin ine, Urine NOTE 21 - 161 mg/g creat [facility] ([facility]) Comment: THE PROTEIN VALUE IS LESS THAN 4 MG/DL THEREFORE WE ARE UNABLE TO CALCULATE EXCRETION AND/OR CREATININE RATIO. ?? Protein/Creatin ine, Urine NOTE 0.021 - 0.161 mg/mg creat [facility] ([facility]) Protein, Urine <4(L) 5 - 24 mg/dL [facility] ([facility]) Comment: Verified by repeat analysis. 06/19/2020 9:48 AM CDT 06/19/2020 9:49 AM CDT Narrative Resulting Agency Comment Performing Organization Information: ?Site ID: [place] ?Name: [facility] ?Address: [address] [place] [address] ?Director: Spenser Maguire D.O., MPH Joe Olivier MD LAB URINE ORDERABLES [facility] ([facility]) * (ABNORMAL) Renal Function Panel (RFP) (06/19/2020 9:48 AM CDT) Glucose, Serum/Plasma 190(H) 65 - 99 mg/dL [facility] ([facility]) Comment: ? Fasting reference interval For someone without known diabetes, a glucose value >125 mg/dL indicates that they may have diabetes and this should be confirmed with a follow-up test. Urea nitrogen, Serum/Plasma (BUN) 55(H) 7 - 25 mg/dL [facility] ([facility]) Creatinine, Serum/Plasma 1.63(H) 0.60 - 0.93 mg/dL [facility] ([facility]) Comment: For patients >49 years of age, the reference limit for Creatinine is approximately 13% higher for people identified as -Canadian. eGFR, non 30(L) > OR = 60 mL/min/1. 73m2 [facility] ([facility]) eGFR, 35(L) > OR = 60 mL/min/1. 73m2 [facility] ([facility]) Urea nitrogen/Creatinin e, Serum/Plasma 34(H) 6 - 22 (calc) [facility] ([facility]) Sodium, Serum/Plasma 142 135 - 146 mmol/L [facility] ([facility]) Potassium, Serum/Plasma 4.9 3.5 - 5.3 mmol/L [facility] ([facility]) Chloride, Serum/Plasma 105 98 - 110 mmol/L [facility] ([facility]) Carbon dioxide CO2), total, Serum/Plasma 28 20 - 32 mmol/L [facility] ([facility]) Calcium, Serum/Plasma 10.3 8.6 - 10.4 mg/dL [facility] ([facility]) Phosphate, Serum/Plasma 4.3 2.1 - 4.3 mg/dL [facility] ([facility]) Albumin, Serum/Plasma 4.2 3.6 - 5.1 g/dL [facility] ([facility]) Blood 06/19/2020 9:48 AM CDT 06/19/2020 9:49 AM CDT Narrative Resulting Agency Comment Performing Organization Information: ?Site ID: [place] ?Name: [facility] ?Address: [address] [place] [address] ?Director: Spenser Maguire D.O., MPH Joe Olivier MD LAB BLOOD ORDERABLES [facility] ([facility]) * PTH Intact w/o Calcium, Serum (06/19/2020 9:48 AM CDT) PTH, Intact, Serum/Plasma 36 14 - 64 pg/mL [facility] ([facility]) Comment: Interpretive Guide [...] Agency Comment Performing Organization Information: ?Site ID: [place] ?Name: [facility] ?Address: [address] [place] [address] [place] [address] ?Director: Spenser Maguire D.O., MPH Joe Olivier MD LAB BLOOD ORDERABLES [facility] ([facility]) * Vitamin D, 25-Hydroxy, Serum (06/19/2020 9:48 [...] D, (D2,D3), LC/MS/MS is recommended: order code 31584 (patients >2yrs). See Note 2 Note 1 This test was developed and its analytical performance characteristics have been determined by [facility]. It has not been cleared or approved by the FDA. This assay has been validated pursuant to the CLIA regulations and is used for clinical purposes. Note 2 For additional information, please refer to http://education.Ecast/faq/XXB001 (This link is being provided for informational/ educational purposes only.) 06/19/2020 9:48 AM CDT 06/19/2020 9:49 AM CDT Narrative Resulting Agency Comment Performing Organization Information: ?Site ID: [place] ?Name: [facility] ?Address: [facility] [place] [address] ?Director: Spenser Maguire D.O., MPH Joe Olivier MD LAB BLOOD ORDERABLES [facility] ([facility]) * (ABNORMAL) CBC (includes Differential/Platelets) (06/19/2020 9:48 AM CDT) Leukocytes, Blood 8.0 3.8 - 10.8 Thousand/u L [facility] ([facility]) Erythrocytes (RBC) 4.73 3.80 - 5.10 Million/uL [facility] ([facility]) Hemoglobin (HGB) 15.6(H) 11.7 - 15.5 g/dL [facility] ([facility]) Hematocrit (HCT) 47.0(H) 35.0 - 45.0 % [facility] ([facility]) MCV 99.4 80.0 - 100.0 fL [facility] ([facility]) MCH 33.0 27.0 - 33.0 pg [facility] ([facility]) MCHC 33.2 32.0 - 36.0 g/dL [facility] ([facility]) Erythrocyte Distribution Width [...] Agency Comment Performing Organization Information: ?Site ID: AL ?Name: [facility] ?Address: [address] [place], [place] [address] [address] ?Director: Spenser Maguire D.O., MPH Joe Olivier MD LAB BLOOD ORDERABLES [facility]) documented in this encounter Visit Diagnoses Diagnosis Tobacco dependence syndrome- Primary Obstructive sleep apnea syndrome Essential hypertension Chronic kidney disease, stage 3a Hyperlipidemia, not otherwise specified Vitamin D deficiency, not otherwise specified documented in this encounter Care Teams Composite Boat Builder Relationship Specialty Start Date End Date Jessee Gregg MD [address] [facility] [address] [place] [address] PCP - General Family Medicine 09/07/19 05/20/21 documented as of this encounter
--- OUTSIDE RECORDS SUMMARY | 2024-02-03 12:28 | XMS_ITS | Encounter Summary ---
Author Organization [facility] Address [address], [place] [address] Phone Care Team Providers Care Electrical Hardware Engineer Name Role Phone Selvin Martinez MD Primary Care Provider [phone] Encounter Details Date Type Department Care Team (Late st Contact Info) Description 03/20/2019 11:30 AM METER MAKER Office Visit [facility] Nephrology and Hypertension [address] [place] [address], [address] [place] [address] Joe Olivier MD [address] [facility], [address] [place] [address] Essential hypertension (Primary Dx); Chronic kidney disease [...] Comments Blood Pressure 126/84 03/20/2019 11:22 AM METER MAKER Pulse 84 03/20/2019 11:22 AM METER MAKER Temperature 36.4 ??C (97.6 ??F) 03/20/2019 11:[address] Respiratory Rate - - Oxygen Saturation - - Inhaled Oxygen Concentration - - Weight 61.2 kg (135 lb) 03/20/2019 11:22 AM METER MAKER Height 152.4 cm (5') 03/20/2019 11:22 AM METER MAKER Body Mass Index 26.37 03/20/2019 11:22 AM METER MAKER documented in this encounter Progress Notes * [...] repeated and was still high. This may head turning machine operator to be chronic kidney disease. The etiology of this is probably going to head turning machine operator to be hypertension and diabetes. The amount [...] (CMS-HCC) documented in this encounter Care Teams Electrical Hardware Engineer Relationship Specialty Start Date End Date Selvin Martinez MD [facility] [place] [address] PCP - General Family Medicine 02/22/19 09/06/19 documented as of this encounter
--- OUTSIDE RECORDS SUMMARY | 2024-02-03 12:28 | XMS_ITS | Encounter Summary ---
Author Organization [facility] Address [address] [place] [address] Phone Care Team Providers Care Land Title Examiner Name Role Phone Scott Galvez MD Primary Care Provider [phone] Encounter Details Date Type Department Care Team (Late st Contact Info) Description 06/12/2021 Telephone [facility] Nephrology and Hypertension [employer] [facility], Suite [facility] [place] [address] Joe Olivier MD [address] [facility], SUITE [facility] [place] [address] Social History Tobacco Use Types Packs/Day Years [...] on filedocumented in this encounter Care Teams Land Title Examiner Relationship Specialty Start Date End Date Scott Galvez MD [address] [place] [id number] PCP - General Internal Medicine 05/21/21 documented as of this encounter
--- OUTSIDE RECORDS SUMMARY | 2024-02-03 12:29 | XMS_ITS | Encounter Summary ---
Author Organization [facility] Address [address] [place] [address]. [place] [address] [place] [address] Care Team Providers Care Vp Ad Products And Planning Name Role Phone Jessee Gregg MD Primary Care Provider [phone] Reason for Visit * Reason Onset Date Comments Refill Request 04/18/2021 Encounter Details Date Type Department Care Team (Late st Contact Info) Description 04/18/2021 Telephone [facility] Family & Internal Medicine [facility] [address] [place] [phone] Jessee Gregg MD [address] [place] [address] Refill Request Social History Tobacco Use Types [...] a finger stick to check her sugar. DEND CLERK * Alexandra Godwin - 04/18/2021 10:25 AM CST Medication and strength:Accu-Check Corrie Plus test stript/90 day supply Pharmacy: [facility] Call back #: [phone] Last office visit at this office: Last visit with JESSEE GREGG in FAMILY PRACTICE was on: 01/30/2021 in [facility] Future appointment scheduled: Future Appointments Date Time Provider Department Center 07/31/2021 1:20 PM Jessee Gregg MD [facility] DEND CLERK documented in this encounter Plan of Treatment Not on file documented as of this encounter Visit Diagnoses Diagnosis Type 2 diabetes mellitus with diabetic nephropathy, with long-term current use of insulin ([facility])- Primary documented in this encounter Additional Health Concerns Assessment Noted Time PHQ-9 Depression Total Score: 0 07/31/19 21 1:55 PM CDT documented as of this encounter Care Teams Vp Ad Products And Planning Relationship Specialty [place] [address] [place] [address] PCP - General FAMILY PRACTICE 08/17/19 06/15/21 documented as of this encounter
--- OUTSIDE RECORDS SUMMARY | 2024-02-03 12:29 | XMS_ITS | Encounter Summary ---
Author Organization [facility] Address [address] [place] [address]. [place] [address] [place] [address] Care Team Providers Care Front Desk Specialist Name Role Phone Jessee Gregg MD Primary Care Provider [phone] Reason for Visit * Reason Onset Date Comments Orders 02/04/2021 Encounter Details Date Type Department Care Team (Late st Contact Info) Description 02/04/2021 Telephone [facility] Family & Internal Medicine [facility] [address] [place] [address] Jessee Gregg MD [address] [address] Orders Social History Tobacco Use Types Packs/Day [...] COVID-19? No / Unsure 01/30/2021 1:52 PM RE RECORDING MIXER documented as of this encounter Progress Notes * Gabby Dodson RN - 02/19/2021 3:03 PM CSTAddended by: GABBY DODSON on: 02/19/2021 03:03 PM Modules accepted: Orders RECORDING MIXER * Gabby Dodson RN - 02/19/2021 3:01 PM CST Order placed and sent to electronically to [facility]. RECORDING MIXER * Vicky Tapia - 02/11/2021 2:55 PM CST Patient advised the freestyle sophia came from [facility], she did not have any contact info Info found in Media 11/07/19 - [facility], fax #[phone], ph #[phone] RECORDING MIXER * Shelly España RN - 02/11/2021 2:26 [...] will find this and call office back. RECORDING MIXER * Shelly España RN - 02/04/2021 4:42 [...] thenthey will get this started for pt. RECORDING MIXER documented in this encounter Plan of Treatment Not on file documented as of this encounter Visit Diagnoses Diagnosis Type 2 diabetes mellitus with diabetic nephropathy, with long-term current use of insulin ([facility]/H[facility])- Primary documented in this encounter Additional Health Concerns Assessment Noted Time PHQ-9 Depression Total Score: 0 07/31/19 1:55 PM CDT documented as of this encounter Care Teams Front Desk Specialist Relationship Specialty [place] [address] [place] [address] PCP - General FAMILY PRACTICE 08/17/19 06/15/21 documented as of this encounter
--- OUTSIDE RECORDS SUMMARY | 2024-02-03 12:29 | XMS_ITS | Encounter Summary ---
Author Organization [facility] Address [address] [place] [address]. [place], [place] [address] [place] [address] Care Team Providers Care Temp Recruiter Name Role Phone Unavailable Primary Care Provider Unavailabl e Reason for Visit * Reason Onset Date Comments Question 06/16/2021 Encounter Details Date Type Department Care Team (Late st Contact Info) Description 06/16/2021 Telephone [facility] Medical Group Family & Internal Medicine [address] [address] None, Provider, MD Question Social History Tobacco Use Types Packs/Day [...] Progress Notes * Shelly España RN - 06/16/2021 5:17 PM CDT Received fax from [employer] asking for order for CGM supplies. Called pt to see if she is still planning on seeing Dr Gregg. She states she has already est care with Dr Galvez at [facility]. Forms faxed back to [facility] stating this. documented in this encounter Plan of Treatment Not on file documented as of this encounter Visit Diagnoses Not on filedocumented in this encounter Additional Health Concerns Assessment Noted Time PHQ-9 Depression Total Score: 0 07/31/19 21 1:55 PM CDT documented as of this encounter
--- OUTSIDE RECORDS SUMMARY | 2024-02-03 12:29 | XMS_ITS | Encounter Summary ---
Author Organization [facility] Address [address] [place] [address]. [place] [address] [place] [address] Care Team Providers Care Community Liaison Name Role Phone Jessee Gregg MD Primary Care Provider [phone] Reason for Visit * Reason Onset Date Comments Refill Request 03/03/2021 Encounter Details Date Type Department Care Team (Late st Contact Info) Description 03/03/2021 Telephone [facility] Family & Internal Medicine [facility] [address] [place] [phone] Jessee Gregg MD [address] [address] Refill Request Social History Tobacco Use Types [...] 03/03/2021 10:51 AM CST All rx's sent. WORKER * Alexandra Godwin - 03/03/2021 10:29 AM CST Medication and strength: Insulin Gargine 100unit/ml injection pen/ Lasix 20mg/ Pharmacy: [facility] Call back #: [phone] Last office visit at this office: Last visit with JESSEE GREGG in FAMILY PRACTICE was on: 01/30/2021 in [facility] Future appointment scheduled: Future Appointments Date Time Provider Department Center 07/31/2021 1:20 PM Jessee Gregg MD [facility] WORKER documented in this encounter Plan of Treatment Not on file documented as of this encounter Visit Diagnoses Diagnosis Type 2 diabetes mellitus with diabetic nephropathy, with long-term current use of insulin ([facility]) Essential hypertension Unspecified essential hypertension documented in this encounter Additional Health Concerns Assessment Noted Time PHQ-9 Depression Total Score: 0 07/31/19 21 1:55 PM CDT documented as of this encounter Care Teams Community Liaison Relationship Specialty [place] [address] [place] [address] PCP - General FAMILY PRACTICE 08/17/19 06/15/21 documented as of this encounter
--- OUTSIDE RECORDS SUMMARY | 2024-02-03 12:29 | XMS_ITS | Encounter Summary ---
Author Organization [facility] Address [address] [place] [address]. [place] [address] [place] [address] Care Team Providers Care Ingredient Handler Name Role Phone Jessee Gregg MD Primary Care Provider [phone] Reason for Visit * Reason Onset Date Comments Diabetes 02/28/2021 Encounter Details Date Type Department Care Team (Late st Contact Info) Description 02/28/[address] [facility] [address] [place] [address] Jessee Gregg MD [address] [facility] [address] [place] [address] Diabetes Social History Tobacco Use Types Packs/Day Years [...] COVID-19? No / Unsure 01/30/2021 1:52 PM DIRECTOR OF SPECIAL EVENTS documented as of this encounter Progress Notes * Candi Blackburn MA - 03/12/2021 12:11 PM CST Spoke with pt, she stated she was advised of this last week. CTOR OF SPECIAL EVENTS * Shelly España RN - 03/03/2021 11:09 AM CST LVM for pt to call office. CTOR OF SPECIAL EVENTS * Jessee Gregg MD - 03/03/2021 8:00 AM CST She should be done with her steroids. We don't want to overshoot with the insulin. CTOR OF SPECIAL EVENTS * Sonali Bingham RN - 02/28/2021 1:42 PM CST Please advise, called and spoke with patient, sugars are high. She reported 238 before lunch. She is questioning why she should decrease. She is currently taking 9 units TID CTOR OF SPECIAL EVENTS * Shelly España RN - 02/28/2021 11:11 AM CST Please call pt and let her know message per Dr Gregg and send in new rx. Thanks! CTOR OF SPECIAL EVENTS * Jessee Gregg MD - 02/28/2021 10:20 AM CST That should be fine. May decrease humalog to 8U. Does she check prior to the shots? CTOR OF SPECIAL EVENTS * Shelly España RN - 02/28/2021 10:17 AM CST Please see note at very bottom from pt and advise. Thanks! CTOR OF SPECIAL EVENTS * Kalpana Cabrera LPN - 02/28/2021 9:06 AM CST Medication and strength: INSULIN GLARGINE PEN 11/19/20 NIRMAL [facility] Call back #: [phone] Last office visit at this office: Last visit with JESSEE GREGG in FAMILY MED/SPORTS MED was on: No match found Future appointment scheduled: Future Appointments Date Time Provider Department Center 07/31/2021 1:20 PM Jessee Gregg MD [facility] [place] [facility] LUNG MD HAS HER ON PREDNISONE TODAY IS 3 DAY ON A 5 DAY TREATMENT HER BLOOD SUGAR FASTING THIS MORNING WAS 200 REQUESTING CALL BACK FROM NURSE NO S/S OF HYPERGLYCEMIA HOWEVER PT TAKING EXTRA HUMALOG SHE SAID SHE IS ON A SLIDING SCALE BUT HAS NOTHING IN WRITING SHE WAS TAKING 6 UNIT 3 X A DAY AND NOW SHE IS TAKING 9 UNITS 3 X A DAY IS THIS OK CTOR OF SPECIAL EVENTS documented in this encounter Plan of Treatment Not on file documented as of this encounter Visit Diagnoses Not on filedocumented in this encounter Additional Health Concerns Assessment Noted Time PHQ-9 Depression Total Score: 0 07/31/19 21 1:55 PM CDT documented as of this encounter Care Teams Ingredient Handler Relationship Specialty [place] [address] [place] [address] PCP - General FAMILY PRACTICE 08/17/19 06/15/21 documented as of this encounter
--- OUTSIDE RECORDS SUMMARY | 2024-02-03 12:29 | XMS_ITS | Encounter Summary ---
Author Organization [facility] Address [address] [place] [address]. [place], [place] [address] [place] [address] Care Team Providers Care Configurator Name Role Phone Jessee Gregg MD Primary Care Provider [phone] Encounter Details Date Type Department Care Team [...] COVID-19? No / Unsure 01/30/2021 1:52 PM [facility] documented as of this encounter Plan of Treatment Not on file documented as of this encounter Visit Diagnoses Not on filedocumented in this encounter Additional Health Concerns Assessment Noted Time PHQ-9 Depression Total Score: 0 07/31/19 21 1:55 PM CDT documented as of this encounter Care Teams Configurator Relationship Specialty [place] [address] [place] [address] PCP - General FAMILY PRACTICE 08/17/19 06/15/21 documented as of this encounter
--- OUTSIDE RECORDS SUMMARY | 2024-02-03 12:29 | XMS_ITS | Clinical Summary ---
Author Organization [facility] Address [address] [place] [address]. [place], [place] [address] [place] [address] Care Team Providers Care Covered Button Maker Name Role Phone Unavailable Primary Care Provider [...] D 600-400 MG-UNIT tabletIndications :Congestive heart failure ([facility]) Take 1 tablet by mouth 2 (two) times daily. clarification of script 180 tablet 1 10/02/19 20 Active Insulin Pen Needle (DROPLET PEN NEEDLES) 31G X 8 MM MiscIndications:D iabetes ([facility]) TO USE TO INJECT INSULIN QID 1 Container 5 03/19/19 21 Active insulin lispro, 1 Unit Dial, (HUMALOG KWIKPEN) 100 UNIT/ML injection (PEN)Indications: Diabetes mellitus ([facility]) INJECT SUBCUTANEOUSLY 3 TIMES DAILY PER SLIDING SCALE (UP TO DAILY DOSE OF 35-40 UNITS) 12 pen 08/13/19 21 Active furosemide 40 MG tabletIndications :Congestive heart failure ([facility]) TAKE 1 TABLET BY MOUTH DAILY IN THE MORNING 90 tablet 1 11/20/19 21 Active LORazepam (ATIVAN) 0.5 MG tabletIndications :Panic attack Take 1 tablet (0.5 mg total) by mouth every 6 (six) hours as needed for Anxiety. 20 tablet 11/22/19 21 Active Continuous Blood Gluc Resource Program Teacher (FREESTYLE SANDER 14 DAY READER) DeviceIndications :Type 2 diabetes mellitus with diabetic nephropathy, with long-term current use of insulin ([facility]) Use to check blood sugar four times daily and as directed. 1 each 02/19/19 22 Active insulin glargine 100 UNIT/ML injection (PEN)Indications: Type 2 diabetes mellitus with diabetic nephropathy, with long-term current use of insulin ([facility]) Inject 16 Units into the skin nightly at bedtime. 5 pen 1 03/03/19 22 Active furosemide 20 MG tabletIndications :Essential hypertension Take 1 tablet (20 mg total) by mouth every evening. 90 tablet 1 03/03/19 22 Active ACCU-CHEK NYDIA PLUS test stripIndications: Type 2 diabetes mellitus with diabetic nephropathy, with long-term current use of insulin ([facility]) Use to check blood sugar twice per [...] 05/30/2018 Chronic renal insufficiency, stage III (moderate) ([facility]) 05/16/2018 Congestive heart failure ([facility]) 04/29 Obstructive sleep apnea syndrome 04/29/2018 Anxiety 04/29/2018 Chronic obstructive pulmonary disease ([facility]) 03/07/2018 Diabetes mellitus ([facility]) 03/07/2018 Essential hypertension 03/07/2018 Hyperlipidemia 03/07/2018 Tobacco dependence syndrome 03/07/2018 Chronic hypoxemic respiratory failure ([facility]) 03/07/2018 Esophagitis 03/07/2018 Hypothyroidism 03/07/2018 Coronary arteriosclerosis [...] Other prematur e Heart Disease Sister 1 NC Sister 2 Heart Sister 3 form heart problems Heart Sister 4 from heart problems NC Son Open Heart Son Stroke Son (after [...] Comments Blood Pressure 108/64 01/30/2021 2:01 PM INDEPENDENT FREIGHT AGENT Pulse 63 01/30/2021 2:01 PM INDEPENDENT FREIGHT AGENT Temperature 36.1 ??C (97 ??F) 01/30/2021 2:01 PM INDEPENDENT FREIGHT AGENT Respiratory Rate 20 01/30/2021 2:01 PM INDEPENDENT FREIGHT AGENT Oxygen Saturation 91% 01/30/2021 2:01 PM INDEPENDENT FREIGHT AGENT Inhaled Oxygen Concentration - - Weight 64.8 kg (142 lb 12.8 oz) 01/30/2021 2:01 PM INDEPENDENT FREIGHT AGENT Height 152.4 cm (5') 01/30/2021 2:01 PM INDEPENDENT FREIGHT AGENT Body Mass Index 27.89 01/30/2021 2:01 PM INDEPENDENT FREIGHT AGENT Plan of Treatment Health Maintenance Due Date [...] nephropathy, with long-term current use of insulin ([facility]/HCC) LIPID PANEL Routine 04/30/2020 4:15 PM CDT Essential hypertension Type 2 diabetes mellitus with diabetic nephropathy, with long-term current use of insulin ([facility]/H[facility]) from Last 3 Months or Most Recently Relevant to Health Maintenance Results * A1C (BACK OFFICE) (01/30/2021) HGB A1C 7.0 % [id number] T [facility] 01/30/2021 us Jessee Gregg MD LABORATORY Final Resul t -40013 [facility] [place] [place] [address] [place] [address], * LIPID PANEL (04/30/2020 4:15 PM CDT) [...] LDL-C. Jamil SS et al. PAUL. 2013;310(19): 5069-8072 (http://education.Mems-ID/faq/QIF277) CHOL/HDL RATIO 3.0 <5.0 (calc) [facility] [...] t [facility] [address] [address] [id number] from Last 3 Months or Most Recently Relevant to Health Maintenance Insurance MEDICARE
--- OUTSIDE RECORDS SUMMARY | 2024-02-03 12:29 | XMS_ITS | Encounter Summary ---
Author Organization [facility] Address [address] [place] [address]. [place] [address] [place] [address] Care Team Providers Care Computer Game Tester Name Role Phone Jessee Gregg MD Primary Care Provider [phone] [phone] Reason for Visit * Reason Onset Date Comments Refill Request 02/17/2021 Encounter Details Date Type Department Care Team (Late st Contact Info) Description 02/17/2021 Telephone [facility] [address] [place] [address] Jessee Gregg MD [address] [address] Refill Request Social History Tobacco Use Types [...] COVID-19? No / Unsure 01/30/2021 1:52 PM TRAUMA MANAGER documented as of this encounter Progress Notes * Sonali Bingham RN - 02/18/2021 12:26 PM CST Rx sent for patient to [facility]. MA MANAGER * Cristal Ricketts - 02/17/2021 10:38 AM CST Pt called requesting refill on her Omeprazole [facility] please advise MA MANAGER documented in this encounter Plan of Treatment Not on file documented as of this encounter Visit Diagnoses Diagnosis Esophagitis Esophagitis, unspecified documented in this encounter Additional Health Concerns Assessment Noted Time PHQ-9 Depression Total Score: 0 07/31/19 21 1:55 PM CDT documented as of this encounter Care Teams Computer Game Tester Relationship Specialty [place] [address] [place] [address] PCP - General FAMILY PRACTICE 08/17/19 06/15/21 documented as of this encounter
--- OUTSIDE RECORDS SUMMARY | 2024-02-03 12:29 | XMS_ITS | Encounter Summary ---
Author Organization [facility] Address [address] [place] [address]. [place] [address] [place] [address] Care Team Providers Care Export Freight Manager Name Role Phone Jessee Gregg MD Primary Care Provider +02-20 [phone] Reason for Visit * Reason Onset Date Comments Medication Request 03/12/2021 Encounter Details Date Type Department Care Team (Late st Contact Info) Description 03/12/2021 Telephone [facility] Medical Group Family & Internal Medicine [facility] [address] [place] [address] Jessee Gregg MD [address] [address] Medication Request Social History Tobacco Use Types [...] is fine with using the Dexcom now. CH INSPECTOR * Candi Blackburn MA - 04/11/2021 10:33 AM CST She stated they are out of network, so insurance will need to be called to see which company pt canuse for this. CH INSPECTOR Jeanie Blackburn MA - 04/11/2021 10:22 AM CST Call [facility] . Spoke with Bailee. CH INSPECTOR Jeanie Blackburn MA - 04/11/2021 10:20 AM CST Pt has not heard anything from [facility] [employer]. * Shelly España RN - 04/01/2021 9:51 AM CST LVM for pt to call office. Wanting to f/u on if she has heard from anyone with [facility] about her Sophia monitor. CH INSPECTOR Jeanie España RN - 03/17/2021 11:54 AM CST Called [facility] and asked them what the status was on pt's Freestyle Sophia. They state they showpt's insurance is inactive. States they show [employer]. Informed them that pt has [employer] [facility] Medicare. States they will need this updated info. New insurance cards faxed to [facility] at [phone]. CH INSPECTOR * Candi Blackburn MA - 03/13/2021 10:55 AM CST Please advise Shelly. CH INSPECTOR * Candi Blackburn MA - 03/12/2021 12:52 PM CST Pt stated she spoke with a nurse last week and a Sophia 2 device was talked about. She stated she was told nurse would look into it and give her a call back. Do you know anything about this? CH INSPECTOR documented in this encounter Plan of Treatment Not on file documented as of this encounter Visit Diagnoses Not on filedocumented in this encounter Additional Health Concerns Assessment Noted Time PHQ-9 Depression Total Score: 0 07/31/19 21 1:55 PM CDT documented as of this encounter Care Teams Export Freight Manager Relationship Specialty [place] [address] [place] [address] PCP - General FAMILY PRACTICE 08/17/19 06/15/21 documented as of this encounter
--- OUTSIDE RECORDS SUMMARY | 2024-02-03 12:29 | XMS_ITS | Encounter Summary ---
Author Organization [facility] Address [address] [place] [address]. [place] [address] [place] [address] Care Team Providers Care Investment Accountant Name Role Phone Jessee Gregg MD Primary Care Provider +02-20 [phone] Reason for Visit * Reason Onset Date Comments Blood Sugar Reporting 04/14/2021 Encounter Details Date Type Department Care Team (Late st Contact Info) Description 04/14/2021 Telephone [facility] [address] [place] [address] Jessee Gregg MD [address] [address] Blood Sugar Reporting Social History Tobacco Use [...] and informed her of this. She /vu. SORTER * Shelly España RN - 04/15/2021 10:14 [...] back with what he recommends. She v/u. SORTER * Jessee Gregg MD - 04/14/2021 4:45 PM CST I think she has a Dexcom. What have her sugars been averaging. SORTER * Shelly España RN - 04/14/2021 2:47 PM CST Please advise. SORTER * Kalpana Cabrera LPN - 04/14/2021 2:07 [...] did not what to do Please advise [phone] She would prefer to be called 04/15/21 SORTER documented in this encounter Plan of Treatment Not on file documented as of this encounter Visit Diagnoses Not on filedocumented in this encounter Additional Health Concerns Assessment Noted Time PHQ-9 Depression Total Score: 0 07/31/19 21 1:55 PM CDT documented as of this encounter Care Teams Investment Accountant Relationship Specialty [place] [address] [place] [address] PCP - General FAMILY PRACTICE 08/17/19 06/15/21 documented as of this encounter
--- OUTSIDE RECORDS SUMMARY | 2024-02-03 12:30 | XMS_ITS | Encounter Summary ---
Author Organization [facility] Address [address] [place] [address]. [place], [place] [address] [place] [address] Care Team Providers Care Environmental Engineering Technician Name Role Phone Jessee Gregg MD Primary Care Provider [phone] [phone] Encounter Details Date Type Department Care Team [...] documented as of this encounter Care Teams Environmental Engineering Technician Relationship Specialty [place] [address] [place] [address] PCP - General FAMILY PRACTICE 08/17/19 06/15/21 documented as of this encounter
--- OUTSIDE RECORDS SUMMARY | 2024-02-03 12:30 | XMS_ITS | Encounter Summary ---
Author Organization [facility] Address [address] [place] [address]. [place] [address] [place] [address] Care Team Providers Care Novelties Sales Representative Name Role Phone Jessee Gregg MD Primary Care Provider [phone] [phone] Reason for Visit * Reason Onset Date Comments Refill Request 08/12/2020 Encounter Details Date Type Department Care Team (Late st Contact Info) Description 08/12/2020 Telephone [facility] Medical Group Family & Internal Medicine [facility] [address] [place] [address] Jessee Gregg MD [address] [place] [address] Refill Request Social History Tobacco Use Types [...] insurance doesn't cover novolog/90 day suppies Pharmacy: [facility] Call back #:[phone] Last office visit at this office: Last visit with JESSEE GREGG in FAMILY PRACTICE was on: 07/30/2020 in [facility] Future appointment scheduled: Future Appointments Date Time Provider Department Center 10/31/2020 1:00 PM Jessee Gregg MD [facility] documented in this encounter Plan of Treatment Not on file documented as of this encounter Visit Diagnoses Diagnosis Diabetes mellitus ([facility])- Primary Type II or unspecified type diabetes mellitus without mention of complication, not stated as uncontrolled Essential hypertension Unspecified essential hypertension Esophagitis Esophagitis, unspecified documented in this encounter Additional Health Concerns Assessment Noted Time PHQ-9 Depression Total Score: 0 07/31/19 21 1:55 PM CDT documented as of this encounter Care Teams Novelties Sales Representative Relationship Specialty [place] [address] [place] [address] PCP - General FAMILY PRACTICE 08/17/19 06/15/21 documented as of this encounter
--- OUTSIDE RECORDS SUMMARY | 2024-02-03 12:30 | XMS_ITS | Encounter Summary ---
Author Organization [facility] Address [address] [place] [address]. [place] [address] [place] [address] Care Team Providers Care Hot Metal Charger Name Role Phone Jessee Gregg MD Primary Care Provider +02-20 [phone] Reason for Referral * Consultation (Urgent) - Closed Specialty Diagnoses / Procedures Referred By Contac t Referred To Contact NEPHROLOGY Diagnoses Type 2 diabetes mellitus with hyperglycemia, without long-term current use of insulin ([facility]) Jessee Gregg MD [address] [facility] [address] [place] [address] Phone: tel: fax: Joe Olivier MD [address] [facility] [address] [place] [address] Phone: tel: fax: Referral ID Status Reason Start Date Expiration Date V isits Requested Visits Authorized [id number] Closed Specialty Services 10/31/2020 04/29/2021 1 1 Scheduling Instructions Has appointment scheduled for 11/07/2020 Encounter Details Date Type Department Care Team (Late st Contact Info) Description 10/31/2020 Orders Only [facility] [address] [place] [address] Jessee Gregg MD [address] [facility] [address] [place] [address] Social History Tobacco Use Types [...] hyperglycemia, without long-term current use of insulin ([facility]) Ordered: 10/31/2020 documented as of this encounter Visit Diagnoses Diagnosis Type 2 diabetes mellitus with hyperglycemia, without long-term current use of insulin ([facility])- Primary documented in this encounter Additional Health Concerns Assessment Noted Time PHQ-9 Depression Total Score: 0 07/31/19 21 1:55 PM CDT documented as of this encounter Care Teams Hot Metal Charger Relationship Specialty [place] [address] [place] [address] PCP - General FAMILY PRACTICE 08/17/19 06/15/21 documented as of this encounter
--- OUTSIDE RECORDS SUMMARY | 2024-02-03 12:30 | XMS_ITS | Encounter Summary ---
Author Organization [facility] Address [address] [place] [address]. [place] [address] [place] [address] Care Team Providers Care Pickle Sorter Name Role Phone Jessee Gregg MD Primary Care Provider +02-20 [phone] Reason for Visit * Reason Onset Date Comments Question 05/29/2020 Encounter Details Date Type Department Care Team (Late st Contact Info) Description 05/29/2020 Telephone [facility] [address]01 [place] [address] Jessee Gregg MD [address] [facility] [address] [place] [address] Question Social History Tobacco Use Types Packs/Day [...] and she [facility] the Dexcommonitor. Informed her that Dr Gregg filled out paperwork and I faxed this and her office visit note to [facility] today. Advised her to call them to check in on this. She v/u. * Alexandra Godwin - 05/29/2020 11:43 AM CDT Pt wanting to talk with you about new Machine for her blood sugar CB# [phone] documented in this encounter Plan of Treatment Not on file documented as of this encounter Visit Diagnoses Not on filedocumented in this encounter Care Teams Pickle Sorter Relationship Specialty [place] [address] [place] [address] PCP - General FAMILY PRACTICE 08/17/19 06/15/21 documented as of this encounter
--- OUTSIDE RECORDS SUMMARY | 2024-02-03 12:30 | XMS_ITS | Encounter Summary ---
Author Organization [facility] Address [address] [place] [address]. [place] [address] [place] [address] Care Team Providers Care Applications Intern Name Role Phone Jessee Gregg MD Primary Care Provider +02-20 [phone] Reason for Visit * Reason Onset Date Comments Question 06/04/2020 Encounter Details Date Type Department Care Team (Late st Contact Info) Description 06/04/2020 Telephone [facility] Medical Group Family & Internal Medicine [facility] [address] [place] [address] Jessee Gregg MD [address] [address] Question Social History Tobacco Use Types Packs/Day [...] by Dr. Huizar this was done at [place] in couple years ago. Inkki states Dr. Huizar saw something in her [...] on filedocumented in this encounter Care Teams Applications Intern Relationship Specialty [place] [address] [place] [address] PCP - General FAMILY PRACTICE 08/17/19 06/15/21 documented as of this encounter
--- OUTSIDE RECORDS SUMMARY | 2024-02-03 12:30 | XMS_ITS | Encounter Summary ---
Author Organization [facility] Address [address] [place] [address]. [place] [address] [place] [address] Care Team Providers Care Principal Architectural Firm Name Role Phone Jessee Gregg MD Primary Care Provider +02-20 [phone] Reason for Visit * Reason Onset Date Comments Refill Request 11/19/2020 Encounter Details Date Type Department Care Team (Late st Contact Info) Description 11/19/2020 Telephone [facility] [address] [place] [address] Jessee Gregg MD [address] [address] Refill Request Social History Tobacco Use Types [...] called requesting refills on Lantes pens [facility] please advise documented in this encounter Plan of Treatment Not on file documented as of this encounter Visit Diagnoses Diagnosis Type 2 diabetes mellitus with diabetic nephropathy, with long-term current use of insulin ([facility]/HCC)- Primary documented in this encounter Additional Health Concerns Assessment Noted Time PHQ-9 Depression Total Score: 0 07/31/19 21 1:55 PM CDT documented as of this encounter Care Teams Principal Architectural Firm Relationship Specialty [place] [address] [place] [address] PCP - General FAMILY PRACTICE 08/17/19 06/15/21 documented as of this encounter
--- OUTSIDE RECORDS SUMMARY | 2024-02-03 12:30 | XMS_ITS | Encounter Summary ---
Author Organization [facility] Address [address] [place] [address]. [place] [address] [place] [address] Care Team Providers Care Community Youth Secretary Name Role Phone Jessee Gregg MD Primary Care Provider +02-20 [phone] Encounter Details Date Type Department Care Team [...] on filedocumented in this encounter Care Teams Community Youth Secretary Relationship Specialty [place] [address] [place] [address] PCP - General FAMILY PRACTICE 7/2/20 5/1/22 documented as of this encounter
--- OUTSIDE RECORDS SUMMARY | 2024-02-03 12:30 | XMS_ITS | Encounter Summary ---
Author Organization [facility] Address [address] [place] [address]. [place] [address] [place] [address] Care Team Providers Care Parliamentary Counsel Name Role Phone Jessee Gregg MD Primary Care Provider +02-20 [phone] Reason for Visit * Reason Onset Date Comments Referral 11/05/2020 Encounter Details Date Type Department Care Team (Late st Contact Info) Description 11/05/2020 Telephone [facility] [address] [place] [address] Jessee Gregg MD [address] [facility] [address] [place] [address] Referral Social History Tobacco Use Types Packs/Day [...] Message also sent to referral dept via [employer] halo in regards to this. * Shelly España RN - 11/05/2020 1:09 PM CDT Please advise. Referral placed on 10-31 for this as urgent. * Cristal Ricketts - 11/05/2020 12:[address] Vazquez office called requesting referral to be faxed to their office # [phone] they have not rec'd it for pt yet please advise documented in this encounter Plan of Treatment Not on file documented as of this encounter Visit Diagnoses Not on filedocumented in this encounter Additional Health Concerns Assessment Noted Time PHQ-9 Depression Total Score: 0 07/31/19 1:55 PM CDT documented as of this encounter Care Teams Parliamentary Counsel Relationship Specialty [place] [address] [place] [address] PCP - General FAMILY PRACTICE 08/17/19 06/15/21 documented as of this encounter
--- OUTSIDE RECORDS SUMMARY | 2024-02-03 12:30 | XMS_ITS | Encounter Summary ---
Author Organization [facility] Address [address] [place] [address]. [place], [place] [address] [place] [address] Care Team Providers Care Design Analyst Name Role Phone Jessee Gregg MD Primary Care Provider +02-20 [phone] Encounter Details Date Type Department Care Team [...] documented as of this encounter Care Teams Design Analyst Relationship Specialty [place] [address] [place] [address] PCP - General FAMILY PRACTICE 08/17/19 06/15/21 documented as of this encounter
--- OUTSIDE RECORDS SUMMARY | 2024-02-03 12:30 | XMS_ITS | Encounter Summary ---
Author Organization [facility] Address [address] [place] [address]. [place] [address] [place] [address] Care Team Providers Care Steel Spar Operator Name Role Phone Jessee Gregg MD Primary Care Provider +02-20 [phone] Reason for Visit * Reason Onset Date Comments Refill Request 11/21/2020 Encounter Details Date Type Department Care Team (Late st Contact Info) Description 11/21/2020 Telephone [facility] Medical Group Family & Internal Medicine [facility] [address] [place] [address] Jessee Gregg MD [address] [place] [address] Refill Request Social History Tobacco Use Types [...] often she can take this Pharmacy: [facility] Call back #:[phone] Last office visit at this office: Last visit with JESSEE GREGG in FAMILY PRACTICE was on: 10/31/2020 in [facility] Future appointment scheduled: Future Appointments Date Time Provider Department Center 01/30/2021 2:00 PM Jessee Gregg MD [facility] documented in this encounter Plan of Treatment Not on file documented as of this encounter Visit Diagnoses Diagnosis Panic attack Panic disorder without agoraphobia documented in this encounter Additional Health Concerns Assessment Noted Time PHQ-9 Depression Total Score: 0 07/31/19 21 1:55 PM CDT documented as of this encounter Care Teams Steel Spar Operator Relationship Specialty Start [place] [address] [place] [address] PCP - General FAMILY PRACTICE 08/17/19 06/15/21 documented as of this encounter
--- OUTSIDE RECORDS SUMMARY | 2024-02-03 12:30 | XMS_ITS | Encounter Summary ---
Author Organization [facility] Address [address] [place] [address]. [place] [address] [place] [address] Care Team Providers Care Hogshead Cooper Name Role Phone Jessee Gregg MD Primary Care Provider [phone] [phone] Reason for Visit * Reason Onset Date Comments Refill Request 12/23/2020 Encounter Details Date Type Department Care Team (Late st Contact Info) Description 12/23/2020 Telephone [facility] [address] [place] [address] Jessee Gregg MD [address] [address] Refill Request Social History Tobacco Use Types [...] - 12/23/2020 9:50 AM CST Rx sent. T FURNACE KEEPER * Cristal Ricketts - 12/23/2020 9:29 AM CST Pt called requesting refill on her Potassium [facility] she is almost out please advise T FURNACE KEEPER documented in this encounter Plan of Treatment Not on file documented as of this encounter Visit Diagnoses Diagnosis Hypokalemia- Primary Hypopotassemia documented in this encounter Additional Health Concerns Assessment Noted Time PHQ-9 Depression Total Score: 0 07/31/19 21 1:55 PM CDT documented as of this encounter Care Teams Hogshead Cooper Relationship Specialty [place] [address] [place] [address] PCP - General FAMILY PRACTICE 08/17/19 06/15/21 documented as of this encounter
--- OUTSIDE RECORDS SUMMARY | 2024-02-03 12:30 | XMS_ITS | Encounter Summary ---
Author Organization [facility] Address [address] [place] [address]. [place] [address] [place] [address] Care Team Providers Care Gas System Operator Name Role Phone Jessee Gregg MD Primary Care Provider +02-20 [phone] Reason for Visit * Reason Onset Date Comments Question 05/23/2020 Encounter Details Date Type Department Care Team (Late st Contact Info) Description 05/23/2020 Telephone [facility] [address] [place] [address] Jessee Gregg MD 9401 [facility] [address] [place] [address] Question Social History Tobacco Use Types Packs/Day [...] 05/24/2020 11:14 AM CDT Received forms from [facility] to order Dexcom 6 for pt. Per [...] 9:48 AM CDT LVM with Evonne at [facility] to see what they are needing on pt * Cristal Ricketts - 05/23/2020 8:27 AM CDT [facility] in regards to documents they requested for patient they still have not rec'd them yet c/b # [phone] documented in this encounter Plan of Treatment Not on file documented as of this encounter Visit Diagnoses Not on filedocumented in this encounter Care Teams Gas System Operator Relationship Specialty [place] [address] [place] [address] PCP - General FAMILY PRACTICE 08/17/19 06/15/21 documented as of this encounter
--- OUTSIDE RECORDS SUMMARY | 2024-02-03 12:30 | XMS_ITS | Encounter Summary ---
Author Organization [facility] Address [address] [place] [address]. [place], [place] [address] [place] [address] Care Team Providers Care Digital Account Coordinator Name Role Phone Jessee Gregg MD Primary Care Provider +02-20 [phone] Encounter Details Date Type Department Care Team [...] documented as of this encounter Care Teams Digital Account Coordinator Relationship Specialty [place] [address] [place] [address] PCP - General FAMILY PRACTICE 08/17/19 06/15/21 documented as of this encounter
--- OUTSIDE RECORDS SUMMARY | 2024-02-03 12:30 | XMS_ITS | Encounter Summary ---
Author Organization [facility] Address [address] [place] [address]. [place], [place] [address] [place] [address] Care Team Providers Care Mycologist Name Role Phone Jessee Gregg MD Primary Care Provider +02-20 [phone] Reason for Referral * Consultation (Routine) - Closed Specialty Diagnoses / Procedures Referred By Contac t Referred To Contact NEPHROLOGY Diagnoses Chronic renal insufficiency, stage III (moderate) (CMS/HCC [facility]) Jessee Gregg MD 9[address] [facility] [address] [place] [address] Phone: tel: fax: Joe Olivier MD [address] [address] Phone: tel: fax: Referral ID Status Reason Start Date Expiration Date V isits Requested Visits Authorized [id number] Closed Specialty Services 11/01/2020 04/30/2021 6 6 Scheduling Instructions Pt's referral has to Dr Olivier. Please get new auth and fax to their office. Thanks! Reason for Visit * Reason Comments Follow Up Routine, 3 mo. check Hypertension Diabetes Referral Discuss referral for Nephrology - Dr. Olivier - follows him q3mos. Encounter Details Date Type Department Care Team ([facility] st Contact Info) Description 07/30/2020 2:00 PM CDT Office Visit [facility] Medical Group Family & Internal Medicine [facility] [address] [place] [address] Jessee Gregg MD 9763 [facility] [address] [place], [place] [address] Follow Up (Routine, 3 mo. check); Hypertension; [...] tablet, Rfl: 1 ??? Continuous Blood Gluc Multimedia Artist (FREESTYLE SOPHIA 14 DAY READER) Device, Use with Freestyle LibreSensor, Disp: 1 Device, Rfl: 2 ??? Continuous Blood Gluc Sensor (FREESTYLE SOPHIA 14 DAY SENSOR) [facility], Use with Freestyle Sophia monitor, Disp: 1 each, Rfl: 2 ??? furosemide 20 MG tablet, Take 1 tablet (20 mg total) by mouth every evening., Disp: 90 tablet, Rfl: 0 ??? insulin glargine 100 UNIT/ML injection (PEN), Inject 16 Units into the skin nightly at bedtime., Disp: , Rfl: ??? Insulin Pen Needle (DROPLET PEN NEEDLES) 31G X 8 MM [facility], TO USE TO INJECT INSULIN QID, Disp: [...] Disp: , Rfl: 0 ??? SOFTCLIX LANCETS [facility], , Disp: , Rfl: ??? VENTOLIN HFA [...] nephropathy, with long-term current use of insulin ([facility]) A1C (BACK OFFICE) COLLECT.CAPILLARY (FNGR,HEEL,EAR) 2. Essential [...] Routine Chronic renal insufficiency, stage III (moderate) ([facility]) Ordered: 07/30/2020 documented as of this encounter Procedures Procedure Name Priority Date/Time Associated Diagnosis Comments COLLECT.CAPILLARY (FNGR,HEEL,EAR) Routine 07/30/2020 2:13 PM CDT Type 2 diabetes mellitus with diabetic nephropathy, with long-term current use of insulin ([facility]) HEMOGLOBIN, GLYCOSYLATED Routine 07/30/2020 Type 2 diabetes mellitus with diabetic nephropathy, with long-term current use of insulin ([facility]) documented in this encounter Results * A1C (BACK OFFICE) (07/30/2020) HGB A1C 6.4 % [id number] [facility] 07/30/2020 us Jessee Gregg MD LABORATORY Final Resul t [id number] [facility] [address] [place] [address], documented in this encounter Visit Diagnoses Diagnosis Type 2 diabetes mellitus with diabetic nephropathy, with long-term current use of insulin ([facility]) Essential hypertension Unspecified essential hypertension Hyperlipidemia, unspecified hyperlipidemia type Chronic renal insufficiency, stage III (moderate) ([facility]) Chronic kidney disease, Stage III (moderate) documented in this encounter Additional Health Concerns Assessment Noted Time PHQ-9 Depression Total Score: 0 07/31/19 21 1:55 PM CDT documented as of this encounter Care Teams Mycologist Relationship Specialty [place] [address] [place] [address] PCP - General FAMILY PRACTICE 08/17/19 06/15/21 documented as of this encounter
--- OUTSIDE RECORDS SUMMARY | 2024-02-03 12:30 | XMS_ITS | Encounter Summary ---
Author Organization [facility] Address [address] [place] [address]. [place], [place] [address] [place] [address] Care Team Providers Care Rn Cardiac Rehab Name Role Phone Jessee Gregg MD Primary Care Provider +02-20 [phone] Encounter Details Date Type Department Care Team [...] on filedocumented in this encounter Care Teams Rn Cardiac Rehab Relationship Specialty [place] [address] [place] [address] PCP - General FAMILY PRACTICE 08/17/19 06/15/21 documented as of this encounter
--- OUTSIDE RECORDS SUMMARY | 2024-02-03 12:30 | XMS_ITS | Encounter Summary ---
Author Organization [facility] Address [address] [place] [address]. [place], [place] [address] [place] [address] Care Team Providers Care Licensed Aircraft Maintenance Engineer Name Role Phone Jessee Gregg MD Primary Care Provider +02-20 [phone] Encounter Details Date Type Department Care Team [...] documented as of this encounter Care Teams Licensed Aircraft Maintenance Engineer Relationship Specialty [place] [address] [place] [address] PCP - General FAMILY PRACTICE 08/17/19 06/15/21 documented as of this encounter
--- OUTSIDE RECORDS SUMMARY | 2024-02-03 12:30 | XMS_ITS | Encounter Summary ---
Author Organization [facility] Address [address] [place] [address]. [place] [address] [place] [address] Care Team Providers Care Test Driller Name Role Phone Jsesee Gregg MD Primary Care Provider +02-20 [phone] Reason for Visit * Reason Onset Date Comments Question 09/03/2020 Encounter Details Date Type Department Care Team (Late st Contact Info) Description 09/03/2020 Telephone [facility] Medical Group Family & Internal Medicine [facility] [address] [place] [address] Jessee Gregg MD [address] [address] Question Social History Tobacco Use Types Packs/Day [...] to fax PET scan from 2019 to [phone]. * Shelly Myers RN - 09/04/2020 12:31 [...] results in her chart. She states her wedding cake designer's office will havethese. Matilde Contreras [phone]. LVM for someone from that office to call us in regards to this. * Alexandra Godwin - 09/04/2020 9:40 AM CDT Pt called wondering why nobody has gotten back with her. Called 6 weeks ago about this she mailed letter 1 month ago Please adivise CB# [phone] * Alexandra Godwin - 09/03/2020 10:07 AM CDT Pt wanting Dr. Hawthorne to review her PET SCAN Its from 2019 Please advise CB# [phone] Month ago she mail you a form the state physical for A foster children that lives in her home. Month ago she mail you a list of her blood sugars she never heard anything about these 2 things documented in this encounter Plan of Treatment Not on file documented as of this encounter Visit Diagnoses Diagnosis Congestive heart failure (CMS/[facility])- Primary Congestive heart failure, unspecified documented in this encounter Additional Health Concerns Assessment Noted Time PHQ-9 Depression Total Score: 0 07/31/19 21 1:55 PM CDT documented as of this encounter Care Teams Test Driller Relationship Specialty [place] [address] [place] [address] PCP - General FAMILY PRACTICE 08/17/19 06/15/21 documented as of this encounter
--- OUTSIDE RECORDS SUMMARY | 2024-02-03 12:30 | XMS_ITS | Encounter Summary ---
Author Organization [facility] Address [address] [place] [address]. [place], [place] [address] [place] [address] Care Team Providers Care Critical Care Unit Manager Name Role Phone Jessee Gregg MD Primary Care Provider +02-20 [phone] Encounter Details Date Type Department Care Team [...] documented as of this encounter Care Teams Critical Care Unit Manager Relationship Specialty [place] [address] [place] [address] PCP - General FAMILY PRACTICE 08/17/19 06/15/21 documented as of this encounter
--- OUTSIDE RECORDS SUMMARY | 2024-02-03 12:30 | XMS_ITS | Encounter Summary ---
Author Organization [facility] Address [address] [place] [address]. [place] [address] [place] [address] Care Team Providers Care International Relations Teacher Name Role Phone Jessee Aguilar MD Primary Care Provider +02-20 [phone] Reason for Visit * Reason Onset Date Comments Lab Results 05/01/2020 Encounter Details Date Type Department Care Team (Late st Contact Info) Description 05/01/2020 Telephone [facility] 9401 [place] [address] Jessee Aguilar MD 9401 [facility] [address] [place] [address] Lab Results Social History Tobacco Use Types [...] as of this encounter Progress Notes * Kalpaan Cabrera LPN - 05/01/2020 2:41 PM CDT [...] on filedocumented in this encounter Care Teams International Relations Teacher Relationship Specialty [place] [address] [place] [address] PCP - General FAMILY PRACTICE 08/17/19 06/15/21 documented as of this encounter
--- OUTSIDE RECORDS SUMMARY | 2024-02-03 12:30 | XMS_ITS | Encounter Summary ---
Author Organization [facility] Address [address] [place] [address]. [place] [address] [place] [address] Care Team Providers Care Band Cutting Machine Operator Name Role Phone Jessee Gregg MD Primary Care Provider +02-20 [phone] Reason for Visit * Reason Onset Date Comments Refill Request 11/18/2020 Encounter Details Date Type Department Care Team (Late st Contact Info) Description 11/18/2020 Telephone [facility] [address]01 [place] [address] Jessee Gregg MD [address] [address] Refill Request Social History Tobacco Use Types [...] ct scan of the ABD Her CB# [phone] * Alexandra Godwin - 11/18/2020 10:20 AM CDT Medication and strength: Laxis 40mg/Lasix 20mg/90 days Pharmacy: [facility] Call back #:[phone] Last office visit at this office: Last visit with JESSEE GREGG in FAMILY MED/SPORTS MED was on: No match found Future appointment scheduled: Future Appointments Date Time Provider Department Center 01/30/2021 2:00 PM Jessee Gregg MD [facility] [place] [place] documented in this encounter Plan of Treatment Not on file documented as of this encounter Visit Diagnoses Diagnosis Congestive heart failure ([facility]) Congestive heart failure, unspecified Essential hypertension Unspecified essential hypertension documented in this encounter Additional Health Concerns Assessment Noted Time PHQ-9 Depression Total Score: 0 07/31/19 21 1:55 PM CDT documented as of this encounter Care Teams Band Cutting Machine Operator Relationship Specialty [place] [address] [place] [address] PCP - General FAMILY PRACTICE 08/17/19 06/15/21 documented as of this encounter
--- OUTSIDE RECORDS SUMMARY | 2024-02-03 12:30 | XMS_ITS | Encounter Summary ---
Author Organization [facility] Address [address] [place] [address]. [place], [place] [address] [place] [address] Care Team Providers Care Head Of Insight Name Role Phone Jessee Gregg MD Primary Care Provider +02-20 [phone] Encounter Details Date Type Department Care Team [...] documented as of this encounter Care Teams Head Of Insight Relationship Specialty [place] [address] [place] [address] PCP - General FAMILY PRACTICE 08/17/19 06/15/21 documented as of this encounter
--- OUTSIDE RECORDS SUMMARY | 2024-02-03 12:30 | XMS_ITS | Encounter Summary ---
Author Organization [facility] Address [address] [place] [address]. [place], [place] [address] [place] [address] Care Team Providers Care Pottery Decorator Name Role Phone Jessee Gregg MD Primary Care Provider +02-20 [phone] Encounter Details Date Type Department Care Team [...] on filedocumented in this encounter Care Teams Pottery Decorator Relationship Specialty [place] [address] [place] [address] PCP - General FAMILY PRACTICE 08/17/19 06/15/21 documented as of this encounter
--- OUTSIDE RECORDS SUMMARY | 2024-02-03 12:30 | XMS_ITS | Encounter Summary ---
Author Organization [facility] Address [address] [place] [address]. [place], [place] [address] [place] [address] Care Team Providers Care National Recruiter Name Role Phone Jessee Gregg MD Primary Care Provider +02-20 [phone] Reason for Referral * Imaging (Routine) - Closed Specialty Diagnoses / Procedures Referred By [place] t Referred To Contact RADIOLOGY Diagnoses Generalized abdominal pain Procedures CT ABD+PEL W Jessee Smart MD [address] [place] [address] [place] [address] Phone: tel: fax: Referral ID Status Reason Start Date Expiration Date Visits Re quested Visits Authorized [id number] Closed 10/31/2020 11/30/2021 1 1 Reason for Visit * Imaging (Routine) - Closed Specialty Diagnoses / Procedures Referred By Daniel mcneil Referred To Contact RADIOLOGY Diagnoses Generalized abdominal pain Procedures CT ABD+PEL W Jessee Smart MD [address] [place] [address] [place] [address] Phone: tel: fax: Referral ID Status Reason Start Date Expiration Date Visits Re quested Visits Authorized [id number] Closed 10/31/2020 11/30/2021 1 1 Encounter Details Date Type Department Care Team (Latest Contact Info) Description 11/11/2020 8:57 AM CDT - 11/11/2020 11:59 PM CD[place] [address] [place] [address] Jessee Gregg MD [address] [facility] [address] [place] [address] Discharge Disposition: Home or Self Care (Routine [...] D 600-400 MG-UNIT tabletIndications:C ongestive heart failure ([facility]) Take 1 tablet by mouth 2 (two) times daily. clarification of script 180 tablet 1 0 insulin lispro, 1 Unit Dial, (HUMALOG KWIKPEN) 100 UNIT/ML injection (PEN)Indications:Di abetes mellitus ([facility]) INJECT SUBCUTANEOUSLY 3 TIMES DAILY PER SLIDING SCALE (UP TO DAILY DOSE OF 35-40 UNITS) 12 pen 1 Insulin Pen Needle (DROPLET PEN NEEDLES) 31G X 8 MM MiscIndications:Xochilt childress ([facility]) TO USE TO INJECT INSULIN QID 1 [...] 3 1 02/28/19 22 Continuous Blood Gluc Hha (FREESTYLE SOPHIA 14 DAY READER) DeviceIndications:T ype 2 diabetes mellitus with diabetic nephropathy, with long-term current use of insulin ([facility]) Use with Freestyle Sophia Sensor 1 Device 2 0 02/19/19 22 Continuous Blood Gluc Sensor (FREESTYLE SOPHIA 14 DAY SENSOR) MiscIndications:Typ e 2 diabetes mellitus with diabetic nephropathy, with long-term current use of insulin ([facility]) Use with Freestyle Sophia monitor 1 each 2 0 02/19/19 22 furosemide 20 MG tabletIndications:E ssential hypertension Take 1 tablet (20 mg total) by mouth every evening. 90 tablet 1 11/20/19 21 furosemide 40 MG tabletIndications:C ongestive heart failure ([facility]) TAKE 1 TABLET BY MOUTH DAILY IN [...] - 1.2 MG/DL 11/11/2020 8:49 PM CDT [facility] 11/11/2020 10:2 9 AM CDT Jessee Gregg MD LABORATORY Final Resul t [facility] [address] [place] [address], documented in this encounter Visit Diagnoses Diagnosis [...] documented as of this encounter Care Teams National Recruiter Relationship Specialty [place] [address] [place] [address] PCP - General FAMILY PRACTICE 08/17/19 06/15/21 documented as of this encounter
--- OUTSIDE RECORDS SUMMARY | 2024-02-03 12:30 | XMS_ITS | Encounter Summary ---
Author Organization [facility] Address [address] [place] [address]. [place] [address] [place] [address] Care Team Providers Care Optical Goods Drill Operator Name Role Phone Diya Gregg MD Primary Care Provider +02-20 [phone] Reason for Referral * Imaging (Routine) - Closed Specialty Diagnoses / Procedures Referred By Contac t Referred To Contact RADIOLOGY Diagnoses Generalized abdominal pain Procedures CT ABD+PEL W CON Diya Gregg MD [address] [place] [address] Phone: tel: fax: Referral ID Status Reason Start Date Expiration Date Visits Re quested Visits Authorized [id number] Closed 10/31/2020 11/30/2021 1 1 Reason for Visit * Reason Comments Follow Up 3 month follow up fo r DM2 Encounter Details Date Type Department Care Team (Late st Contact Info) Description 10/31/2020 1:00 PM CDT Office Visit [facility] Medical Group Family & Internal Medicine [facility] [address] [place] [address] Diya Gregg MD [address] [place] [address] Follow Up (3 month follow [...] tablet, Rfl: 1 ??? Continuous Blood Gluc Poultry Boner (FREESTYLE SOPHIA 14 DAY READER) Device, Use [...] (DROPLET PEN NEEDLES) 31G X 8 MM [facility], TO USE TO INJECT INSULIN QID, Disp: [...] 90 capsule, Rfl: 1 ??? SOFTCLIX LANCETS [facility], , Disp: , Rfl: ??? VENTOLIN HFA 108 (90 BASE) MCG/ACT inhaler, Inhale 1 puff into the lungs as needed for Wheezingor Shortness of breath. , Disp: , Rfl: No Known Allergies Past Medical History: Diagnosis Date ??? Acute [place] (CMS/HCC) 05/12/1992 ??? Chronic renal failure ??? [...] ??? Coronary artery disease Other premature ??? [place] Son 37 ??? Stroke Son (after open heart) ??? Open Heart Son ??? [place] Sister ??? Heart Sister form heart problems [...] nephropathy, with long-term current use of insulin ([facility]) HEMOGLOBIN, GLYCOSYLATED COLLECT.CAPILLARY (FNGR,HEEL,EAR) Recommendations and Plan: [...] nephropathy, with long-term current use of insulin ([facility]) HEMOGLOBIN, GLYCOSYLATED Routine 10/31/2020 1:13 PM CDT Type 2 diabetes mellitus with diabetic nephropathy, with long-term current use of insulin ([facility]) documented in this encounter Results * CT [...] 1:13 PM CDT) HGB A1C 6.8 % MG-12128 [facility] 10/31/2020 1:13 PM CDT us Diya Gregg MD LABORATORY Final Resul t Performing Organization Address City/[facility] Co de Phone Number [phone] [facility] [address] [place] [address], documented in this encounter Visit Diagnoses Diagnosis Type 2 diabetes mellitus with diabetic nephropathy, with long-term current use of insulin ([facility])- Primary Generalized abdominal pain Abdominal pain, generalized Generalized abdominal pain Abdominal pain, generalized documented in this encounter Additional Health Concerns Assessment Noted Time PHQ-9 Depression Total Score: 0 07/31/19 21 1:55 PM CDT documented as of this encounter Care Teams Optical Goods Drill Operator Relationship Specialty [place] [address] [place], [place] [id number] PCP - General FAMILY PRACTICE 08/17/19 06/15/21 documented as of this encounter
--- OUTSIDE RECORDS SUMMARY | 2024-02-03 12:30 | XMS_ITS | Encounter Summary ---
Author Organization [facility] Address [address] [place] [address]. [place] [address] [place] [address] Care Team Providers Care Plum Packer Name Role Phone Jessee Gregg MD Primary Care Provider [phone] [phone] Reason for Visit * Reason Onset Date Comments Results 11/15/2020 Encounter Details Date Type Department Care Team (Late st Contact Info) Description 11/15/2020 Telephone [facility] Family & Internal Medicine [facility] [address] [place] [address] Jessee Gregg MD [address] [place] [address] Results Social History Tobacco Use Types Packs/Day [...] was done on 11/11/ Please Advise CB# [phone] documented in this encounter Plan of Treatment Not on file documented as of this encounter Visit Diagnoses Not on filedocumented in this encounter Additional Health Concerns Assessment Noted Time PHQ-9 Depression Total Score: 0 07/31/19 21 1:55 PM CDT documented as of this encounter Care Teams Plum Packer Relationship Specialty [place] [address] [place] [address] PCP - General FAMILY PRACTICE 08/17/19 06/15/21 documented as of this encounter
--- OUTSIDE RECORDS SUMMARY | 2024-02-03 12:30 | XMS_ITS | Encounter Summary ---
Author Organization [facility] Address [address] [place] [address]. [place] [address] [place] [address] Care Team Providers Care Cook Station Name Role Phone Jessee Gregg MD Primary Care Provider [phone] Reason for Visit * Reason Onset Date Comments Question 05/22/2020 Encounter Details Date Type Department Care Team (Late st Contact Info) Description 05/22/[address] [facility] [address] [place] [address] Jessee Gregg MD [address] [address] Question Social History Tobacco Use Types Packs/Day [...] order for TSH to be faxed to [facility] in [place]. Order faxed. Instructed pt she can drop [...] missed something. Last question, son is a perinatal breastfeeding assistant and the state is requiring Nikki to [...] to help answer her questions. CB # [phone] documented in this encounter Plan of Treatment [...] t [facility] [address] [place] [address] documented in this encounter Visit Diagnoses Diagnosis Hypothyroidism, unspecified type- Primary documented in this encounter Care Teams Cook Station Relationship Specialty [place] [address] [place] [address] PCP - General FAMILY PRACTICE 08/17/19 06/15/21 documented as of this encounter
--- OUTSIDE RECORDS SUMMARY | 2024-02-03 12:30 | XMS_ITS | Encounter Summary ---
Author Organization [facility] Address [address] [place] [address]. [place] [address] [place] [address] Care Team Providers Care Speech Coach Name Role Phone Jessee Gregg MD Primary Care Provider [phone] [phone] Reason for Visit * Reason Onset Date Comments Medication Request 07/16/2020 Encounter Details Date Type Department Care Team (Late st Contact Info) Description 07/16/[address] [facility] Family & Internal Medicine [facility] [address] [place] [address] Jessee Gregg MD [address] [address] Medication Request Social History Tobacco Use Types [...] Progress Notes * Shelly España RN - 07/16/2020 12:33 PM CDT Rx's sent. * Vicky Tapia - 07/16/2020 11:19 AM CDT .. Medication and strength: lovastatin 20 mg, metoprolol tartrate 25 mg, furosemide 20 mg, levothyroxine 137 mcg Pharmacy: Mail Order - [facility] Call back #: [phone] 90 day supply Last office visit at this office: Last visit with JESSEE GREGG in FAMILY PRACTICE was on: 04/30/2020 in [facility] Future appointment scheduled: Future Appointments Date Time Provider Department Center 08/01/2020 2:20 PM Jessee Gregg MD [facility] [place] documented in this encounter Plan of Treatment Not on file documented as of this encounter Visit Diagnoses Diagnosis Hyperlipidemia, unspecified hyperlipidemia type- Primary Essential hypertension Unspecified essential hypertension Hypothyroidism, unspecified type documented in this encounter Care Teams Speech Coach Relationship Specialty [place] [address] [place] [address] PCP - General FAMILY PRACTICE 08/17/19 06/15/21 documented as of this encounter
--- OUTSIDE RECORDS SUMMARY | 2024-02-03 12:30 | XMS_ITS | Encounter Summary ---
Author Organization [facility] Address [address] [place] [address]. [place] [address] [place] [address] Care Team Providers Care Field Court Researcher Name Role Phone Jessee Gregg MD Primary Care Provider [phone] [phone] Reason for Visit * Reason Onset Date Comments Medication 12/30/2020 Encounter Details Date Type Department Care Team (Late st Contact Info) Description 12/30/2020 Telephone [facility] [address] [place] [address] Jessee Gregg MD 9401 [facility] [address] [place] [address] Medication Social History Tobacco Use Types [...] [facility]. Rx sent and pt aware. BING MACHINE OPERATOR * Kalpana Cabrera LPN - 12/30/2020 8:42 AM CST Pt most recent RX for klor-con 10 10 MEQ 1 tab daily she was taking 20 MEQ daily She was not made aware of change and need this confirmed cb [phone] BING MACHINE OPERATOR documented in this encounter Plan of Treatment Not on file documented as of this encounter Visit Diagnoses Diagnosis Hypokalemia Hypopotassemia documented in this encounter Additional Health Concerns Assessment Noted Time PHQ-9 Depression Total Score: 0 07/31/19 21 1:55 PM CDT documented as of this encounter Care Teams Field Court Researcher Relationship Specialty [place] [address] [place] [address] PCP - General FAMILY PRACTICE 08/17/19 06/15/21 documented as of this encounter
--- OUTSIDE RECORDS SUMMARY | 2024-02-03 12:31 | XMS_ITS | Encounter Summary ---
Author Organization [facility] Address [address] [place] [address]. [place] [address] [place] [address] Care Team Providers Care Perianesthesia Nurse Name Role Phone Jessee Gregg MD Primary Care Provider [phone] [phone] Reason for Visit * Reason Onset Date Comments Pre-visit Gap Closure 11/14/2019 Encounter Details Date Type Department Care Team (Late st Contact Info) Description 11/14/[address] [facility] [address] [place] [address] Jessee Gregg MD [address] [address] Pre-visit Gap Closure Social History Tobacco Use [...] Standard Work Program. My direct extension is [phone]. You can also reach me at: [phone] (GARRICK) OR [phone] (EFRAIN) documented in this encounter Plan of Treatment Not on file documented as of this encounter Visit Diagnoses Not on filedocumented in this encounter Care Teams Perianesthesia Nurse Relationship Specialty [place] [address] [place] [address] PCP - General FAMILY PRACTICE 08/17/19 06/15/21 documented as of this encounter
--- OUTSIDE RECORDS SUMMARY | 2024-02-03 12:31 | XMS_ITS | Encounter Summary ---
Author Organization [facility] Address [address] [place] [address]. [place] [address] [place] [address] Care Team Providers Care Decorator Lighting Fixtures Name Role Phone Jessee Gregg MD Primary Care Provider [phone] [phone] Reason for Visit * Reason Onset Date Comments Medication Management 03/15/2020 Encounter Details Date Type Department Care Team (Late st Contact Info) Description 03/15/2020 Telephone [facility] [address]01 [place] [address] Jessee Gregg MD [address] [address] Medication Management Social History Tobacco Use Types [...] on: 03/19/2020 04:37 PM Modules accepted: Orders GER PEOPLE * Carmen Nicole RN - 03/15/2020 2:22 PM CST 31 g 8 mm QID Order sent. GER PEOPLE * Danika Banegas - 03/15/2020 1:24 PM CST [facility] called and needs clarification on her Pen needles script, pt is asking for a different size and pt usually uses 4 needles a day and not just one, (2 changes) ref.# [id number] GER PEOPLE documented in this encounter Plan of Treatment Not on file documented as of this encounter Visit Diagnoses Diagnosis Diabetes (CMS/HCC [facility])- Primary documented in this encounter Care Teams Decorator Lighting Fixtures Relationship Specialty [place] [address] [place] [address] PCP - General FAMILY PRACTICE 08/17/19 06/15/21 documented as of this encounter
--- OUTSIDE RECORDS SUMMARY | 2024-02-03 12:31 | XMS_ITS | Encounter Summary ---
Author Organization [facility] Address [address] [place] [address]. [place] [address] [place] [address] Care Team Providers Care Respiratory Therapist Assistant Name Role Phone Jessee Gregg MD Primary Care Provider [phone] [phone] Reason for Visit * Reason Onset Date Comments Medication 11/23/2019 Encounter Details Date Type Department Care Team (Late st Contact Info) Description 11/23/2019 Telephone [facility] 9401 [place] [address] Jessee Gregg MD [address] [place] [address] Medication Social History Tobacco Use Types Packs/Day [...] 22 units daily. New rx sent to [facility] in [place]. * Jessee Gregg MD - 11/23/2019 10:09 [...] status of that please advise c/b # [phone] documented in this encounter Plan of Treatment Not on file documented as of this encounter Visit Diagnoses Diagnosis Diabetes (CMS/HCC HHS/HCC)- Primary documented in this encounter Care Teams Respiratory Therapist Assistant Relationship Specialty [place] [address] [place] [address] PCP - General FAMILY PRACTICE 08/17/19 06/15/21 documented as of this encounter
--- OUTSIDE RECORDS SUMMARY | 2024-02-03 12:31 | XMS_ITS | Encounter Summary ---
Author Organization [facility] Address [address] [place] [address]. [place], [place] [address] [place] [address] Care Team Providers Care Cdl Dedicated Truck Driver Name Role Phone Jessee Gregg MD Primary Care Provider [phone] [phone] Encounter Details Date Type Department Care Team [...] on filedocumented in this encounter Care Teams Cdl Dedicated Truck Driver Relationship Specialty [place] [address] [place] [address] PCP - General FAMILY PRACTICE 08/17/19 06/15/21 documented as of this encounter
--- OUTSIDE RECORDS SUMMARY | 2024-02-03 12:31 | XMS_ITS | Encounter Summary ---
Author Organization [facility] Address [address] [place] [address]. [place] [address] [place] [address] Care Team Providers Care Tyre Builder Name Role Phone Jessee Gregg MD Primary Care Provider +02-20 [phone] Reason for Referral * Consultation (Urgent) - Closed Specialty Diagnoses / Procedures Referred By Contac t Referred To Contact PULMONARY DISEASE Diagnoses Chronic obstructive pulmonary disease ([facility] HHS/HCC) Chronic hypoxemic respiratory failure ([facility]) Jessee Gregg MD 9401 [facility] [address] [place] [address] Phone: tel: fax: Matilde Contreras, [facility] [address] [place] [address] Phone: tel: fax: Referral ID Status Reason Start Date Expiration Date V isits Requested Visits Authorized [id number] Closed Specialty Services 04/03/2020 05/01/2021 1 1 Scheduling Instructions Pt wants referral to see Dr Contreras. Fax [phone]. Thanks! ET MANAGER Reason for Visit * Reason Onset Date Comments Other 04/03/2020 Encounter Details Date Type Department Care Team (Late st Contact Info) Description 04/03/2020 Telephone [facility] 9401 [place] [address] Jessee Gregg MD 9401 [facility] [address] [place] [address] Other Social History Tobacco Use Types Packs/Day [...] - 04/03/2020 10:44 AM CST Referral placed. ET MANAGER * Kalpana Cabrera LPN - 04/03/2020 10:26 AM CST Pt called she has her own crm technical lead she want to go to and need referral to Matilde Contreras [phone] Update insulin to decrease pt states doing fine less reactions [phone] pt # ET MANAGER documented in this encounter Plan of Treatment Scheduled Referrals Name Type Priority Associated Diagnoses Orde r Schedule Ambulatory referral to Pulmonology (OTHER) Referral Routine Chronic obstructive pulmonary disease ([facility]/HCC HHS/HCC) Chronic hypoxemic respiratory failure ([facility]/HCC HHS/HCC) Ordered: 04/03/2020 documented as of this encounter Visit Diagnoses Diagnosis Chronic obstructive pulmonary disease (CMS/HCC HHS/HCC)- Primary Chronic airway obstruction, not elsewhere classified Chronic hypoxemic respiratory failure (CMS/HCC HHS/HCC) Chronic respiratory failure documented in this encounter Care Teams Tyre Builder Relationship Specialty [place] [address] [place] [address] PCP - General FAMILY PRACTICE 08/17/19 06/15/21 documented as of this encounter
--- OUTSIDE RECORDS SUMMARY | 2024-02-03 12:31 | XMS_ITS | Encounter Summary ---
Author Organization [facility] Address [address] [place] [address]. [place], [place] [address] [place] [address] Care Team Providers Care Billing Customer Service Representative Name Role Phone Diya Kinney MD Primary Care Provider +02-20 [phone] Reason for Visit * Reason Comments Diabetes 3mo ck doing ok Hyperlipidemia CHF COPD Encounter Details Date Type Department Care Team (Late st Contact Info) Description 11/21/2019 1:00 PM CDT Office Visit [facility] Family & Internal Medicine [address] [address] Diya Kinney MD [address] [place] [address] Diabetes (3mo ck doing ok); Hyperlipidemia; CHF; [...] tablet, Rfl: 1 ??? Continuous Blood Gluc Career Portals Teacher ([employer] 14 DAY READER) Device, Use [...] Past Medical History: Diagnosis Date ??? Acute CO (CMS/HCC) 05/12/1992 ??? Chronic renal failure ??? [...] ??? Coronary artery disease Other premature ??? CO Son 37 ??? Stroke Son (after open heart) ??? Open Heart Son ??? CO Sister ??? Heart Sister form heart problems [...] nephropathy, with long-term current use of insulin ([facility]) HEMOGLOBIN, GLYCOSYLATED COLLECT.CAPILLARY (FNGR,HEEL,EAR) Recommendations and Plan: [...] nephropathy, with long-term current use of insulin ([facility] HHS/[facility]) HEMOGLOBIN, GLYCOSYLATED Today 11/21/2019 Type 2 diabetes mellitus with diabetic nephropathy, with long-term current use of insulin ([facility] HHS/[facility]) documented in this encounter Results * HEMOGLOBIN, GLYCOSYLATED (11/21/2019) HGB A1C 6.3 % [facility] ([id number])RUEL 11/21/2019 us Diya Kinney MD LABORATORY Final Resul t [place] LEE ([id number]), [place] [address] [place] [address], documented in this encounter Visit Diagnoses Diagnosis Type 2 diabetes mellitus with diabetic nephropathy, with long-term current use of insulin ([facility]/HCC)- Primary documented in this encounter Care Teams Billing Customer Service Representative Relationship Specialty [place] [address] [place] [address] PCP - General FAMILY PRACTICE 08/17/19 06/15/21 documented as of this encounter
--- OUTSIDE RECORDS SUMMARY | 2024-02-03 12:31 | XMS_ITS | Encounter Summary ---
Author Organization [facility] Address [address] [place] [address]. [place] [address] [place] [address] Care Team Providers Care Workers' Compensation Claims Supervisor Name Role Phone Jessee Gregg MD Primary Care Provider +02-20 [phone] Encounter Details Date Type Department Care Team [...] on filedocumented in this encounter Care Teams Workers' Compensation Claims Supervisor Relationship Specialty [place] [address] [place] [address] PCP - General FAMILY PRACTICE 08/17/19 06/15/21 documented as of this encounter
--- OUTSIDE RECORDS SUMMARY | 2024-02-03 12:31 | XMS_ITS | Encounter Summary ---
Author Organization [facility] Address [address] [place] [address]. [place] [address] [place] [address] Care Team Providers Care Director Of Special Events Name Role Phone Jessee Gregg MD Primary Care Provider +02-20 [phone] Reason for Visit * Reason Onset Date Comments Medication 03/06/2020 Encounter Details Date Type Department Care Team (Late st Contact Info) Description 03/06/2020 Telephone [facility] 9401 [place] [address] Jessee Gregg MD [address] [address] Medication Social History Tobacco Use [...] on: 03/08/2020 11:48 AM Modules accepted: Orders RINTENDENT TRACK * Shelly Myers RN - 03/08/2020 11:48 AM CST All rx's sent. RINTENDENT TRACK * Vicky Tapia - 03/08/2020 11:12 AM CST Patient called back, please [facility] to [facility]. She has appt with Marysol on 03/14/20, insurance changed to [facility] AAR Medicare, effec 02/16/20, registration has been updated. She changed to a video because she's worried about casey weather. RINTENDENT TRACK * Sonali Bingham RN - 03/07/2020 2:53 PM CST Does [facility] sound familiar for the mail order pharmacy? Called and left VM for patient to return call. RINTENDENT TRACK * Cristal Ricketts - 03/07/2020 10:24 AM CST Appt niall'd for 03/14 RINTENDENT TRACK * Shelly Myers RN - 03/06/2020 1:12 PM CST Pt due for apt to see Dr Gregg. Please call her. Thanks! RINTENDENT TRACK * Kalpana Cabrera LPN - 03/06/2020 12:37 PM CST Medication and strength: solostar lantus pen and needles Amlodipiine 5 mg New pharm will not fill the 02/19/20 Pharmacy: pt doesn't know of pharm this is the fax # [phone] Call back #: [phone] Last office visit at this office: Last visit with JESSEE GREGG in FAMILY MED/SPORTS MED was on: No match found Future appointment scheduled: No future appointments. RINTENDENT TRACK documented in this encounter Plan of Treatment Not on file documented as of this encounter Visit Diagnoses Diagnosis Diabetes ([facility]/HCC) Essential hypertension Unspecified essential hypertension documented in this encounter Care Teams Director Of Special Events Relationship Specialty [place] [address] [place] [address] PCP - General FAMILY PRACTICE 08/17/19 06/15/21 documented as of this encounter
--- OUTSIDE RECORDS SUMMARY | 2024-02-03 12:31 | XMS_ITS | Encounter Summary ---
Author Organization [facility] Address [address] [place] [address]. [place], [place] [address] [place] [address] Care Team Providers Care Rubbish Collector Name Role Phone Jessee Gregg MD Primary Care Provider +02-20 [phone] Encounter Details Date Type Department Care Team [...] on filedocumented in this encounter Care Teams Rubbish Collector Relationship Specialty [place] [address] [place] [address] PCP - General FAMILY PRACTICE 08/17/19 06/15/21 documented as of this encounter
--- OUTSIDE RECORDS SUMMARY | 2024-02-03 12:31 | XMS_ITS | Encounter Summary ---
Author Organization [facility] Address [address] [place] [address]. [place] [address] [place] [address] Care Team Providers Care Specialist Employee Labor Relations Name Role Phone Diya Gregg MD Primary Care Provider [phone] [phone] Reason for Visit * Reason Comments Follow Up Routine follow up - discuss anxiety and also needing routine lab work. Anxiety wanting to discuss i ncreased anxiety attacks. Encounter Details Date Type Department Care Team (Late st Contact Info) Description 04/30/2020 4:00 PM CDT Office Visit [facility] [address] [place] [address] Diya Gregg MD [address] [address] Follow Up (Routine follow up [...] tablet, Rfl: 1 ??? Continuous Blood Gluc Operations Business Partner (FREESTYLE SOPHIA 14 DAY READER) Device, Use [...] NEEDLES) 31G X 8 MM [facility], TO USE TO INJECT INSULIN QID, Disp: [...] Past Medical History: Diagnosis Date ??? Acute [place] (CMS/HCC) 05/12/1992 ??? Chronic renal failure ??? [...] ??? Coronary artery disease Other premature ??? [place] Son 37 ??? Stroke Son (after open heart) ??? Open Heart Son ??? [place] Sister ??? Heart Sister form heart problems [...] nephropathy, with long-term current use of insulin ([facility]) HEMOGLOBIN, GLYCOSYLATED LIPID PANEL ALBUMIN URINE RANDOM [...] continue decrease lantus to 16U nightly. Monitor. CdnjfD3X. 3. HLD. Stable. No complaints. Tolerating medications. [...] 6 weeks. She v/u. Rx sent to [facility] in [place] and lab order placed. Pt also requestin refill on her Furosemide #90 to [facility]. Rx sent. documented in this encounter Plan of Treatment Not on file documented as of this encounter Procedures Procedure Name Priority Date/Time Associated Diagnosis Comments HEMOGLOBIN, GLYCOSYLATED Routine 04/30/2020 4:15 PM CDT Type 2 diabetes mellitus with diabetic nephropathy, with long-term current use of insulin ([facility]) ALBUMIN URINE RANDOM W/CREATININE Routine 04/30/2020 4:15 PM CDT Essential hypertension Type 2 diabetes mellitus with diabetic nephropathy, with long-term current use of insulin ([facility]) COMPREHENSIVE METABOLIC PANEL Routine 04/30/2020 4:15 PM CDT Essential hypertension LIPID PANEL Routine 04/30/2020 4:15 PM CDT Essential hypertension Type 2 diabetes mellitus with diabetic nephropathy, with long-term current use of insulin ([facility]) THYROID STIM HORMONE TSH Routine 04/30/2020 4:15 PM CDT Hypothyroidism, unspecified type VENIPUNC ARM DRAW Routine 04/30/2020 3:4 7 PM CDT Essential hypertension Type 2 diabetes mellitus with diabetic nephropathy, with long-term current use of insulin ([facility]) documented in this encounter Results * (ABNORMAL) THYROID STIM HORMONE, TSH (04/30/2020 4:15 PM CDT) TSH 0.34(L) 0.40 - 4.50 mIU/L [facility] 04/30/2020 4:15 PM CDT 05/01/2020 5:12 AM CDT us Diya Gregg MD LABORATORY Final Resul t [facility] [address] [facility] [place] [address] * (ABNORMAL) ALBUMIN URINE RANDOM (04/30/2020 4:15 PM CDT) Pathologist [facility] CREATININE RANDOM URINE 36 20 - 275 [...] Resu lt [facility] [address] [facility] [place] [address] * LIPID PANEL (04/30/2020 4:15 PM CDT) Pathologist [facility] CHOLESTEROL 159 <200 mg/dL [facility] [...] LDL-C. Jamil SS et al. PAUL. 2013;310(19): 7678-5665 (http://education.[employer].Pylba/faq/RSB049) CHOL/HDL RATIO 3.0 <5.0 (calc) [facility] [...] t [facility] [address] [place] [address] * (ABNORMAL) COMPREHENSIVE METABOLIC PANEL (04/30/2020 4:15 PM CDT) Pathologist [facility] GLUCOSE 94 65 - 99 mg/dL [facility] Comment: ? Fasting reference interval BUN 47(H) 7 - 25 mg/dL [facility] CREATININE S/P/B 1.24(H) 0.60 - 0.93 mg/dL [facility] Comment: For patients >49 years of age, the reference limit for Creatinine is approximately 13% higher for people identified as -[place]. EGFR NON-AFR. AMER. 42(L) > OR = [...] t [facility] [address] [place] [address] * (ABNORMAL) HEMOGLOBIN, GLYCOSYLATED (04/30/2020 4:15 PM [...] t [facility] [address] [place] [address] documented in this encounter Visit Diagnoses Diagnosis Essential hypertension- Primary Unspecified essential hypertension Type 2 diabetes mellitus with diabetic nephropathy, with long-term current use of insulin ([facility]) Hypothyroidism, unspecified type Hyperlipidemia, unspecified hyperlipidemia type Panic attack Panic disorder without agoraphobia documented in this encounter Care Teams Specialist Employee Labor Relations Relationship Specialty [place] [address] [place] [address] PCP - General FAMILY PRACTICE 08/17/19 06/15/21 documented as of this encounter
--- OUTSIDE RECORDS SUMMARY | 2024-02-03 12:31 | XMS_ITS | Encounter Summary ---
Author Organization [facility] Address [address] [place] [address]. [place], [place] [address] [place] [address] Care Team Providers Care Market Research Intern Name Role Phone Diya Gregg MD Primary Care Provider [phone] [phone] Reason for Referral * Consultation (Routine) - Closed Specialty Diagnoses / Procedures Referred By Contac t Referred To Contact SLEEP & RESPIRATORY CARE Diagnoses Chronic obstructive pulmonary disease, unspecified COPD type ([facility]) Diya Gregg MD [address] [facility] [address] [place] [address] Phone: tel: fax: [facility] [address] [address] Phone: tel: fax: Referral ID Status Reason Start Date Expiration Date V isits Requested Visits Authorized [id number] Closed Specialty Services 03/14/2020 04/14/2021 1 1 MANAGER Reason for Visit * Reason Comments Follow Up Med Refill Medication Request new insurance-insuli n problem Referral Request pulm- Dr. nury felmdan Encounter Details Date Type Department Care Team (Late st Contact Info) Description 03/14/2020 2:00 PM BAR MANAGER Telemedicine [facility] Family & Internal Medicine [address] [address] Diya Gregg MD [address] [facility] [address] [place] [address] Follow Up (Med Refill ); Medication Request [...] 62.1 kg (137 lb) 03/14/2020 1:46 PM BAR MANAGER Height 152.4 cm (5') 03/14/2020 1:46 PM BAR MANAGER Body Mass Index 26.76 03/14/2020 1:46 PM BAR MANAGER documented in this encounter Progress Notes * [...] tablet, Rfl: 1 ??? Continuous Blood Gluc Felt Dyeing Machine Tender (FREESTYLE SOPHIA 14 DAY READER) Device, Use [...] Past Medical History: Diagnosis Date ??? Acute [place] (CMS/HCC) 05/12/1992 ??? Chronic renal failure ??? [...] ??? Coronary artery disease Other premature ??? [place] Son 37 ??? Stroke Son (after open heart) ??? Open Heart Son ??? [place] Sister ??? Heart Sister form heart problems [...] nephropathy, with long-term current use of insulin ([facility]) HEMOGLOBIN, GLYCOSYLATED 2. Hyperlipidemia, unspecified hyperlipidemia type 3. Essential hypertension furosemide 20 MG tablet 4. Chronic obstructive pulmonary disease, unspecified COPD type ([facility]) Ambulatory referral to Pulmonology (OTHER) Recommendations and [...] patient aware that the same confidentiality and director information practices apply. The patient joined the video visit from Home. I completed the virtual visit from Office. The following clinical staff helped with this visit Nurse: Milli. Total Time Spent in Minutes: 15 Orders Placed This Encounter ??? HEMOGLOBIN, GLYCOSYLATED ??? Ambulatory referral to Pulmonology (OTHER) ??? furosemide 20 MG tablet DIYA GREGG Referring Provider: No ref. provider found PCP: DIYA GREGG MD MANAGER documented in this encounter Plan of Treatment Scheduled Referrals Name Type Priority Associated Diagnoses Orde r Schedule Ambulatory referral to Pulmonology (OTHER) Referral Routine Chronic obstructive pulmonary disease, unspecified COPD type ([facility]) Ordered: 03/14/2020 documented as of this encounter Visit Diagnoses Diagnosis Type 2 diabetes mellitus with diabetic nephropathy, with long-term current use of insulin ([facility])- Primary Hyperlipidemia, unspecified hyperlipidemia type Essential hypertension Unspecified essential hypertension Chronic obstructive pulmonary disease, unspecified COPD type ([facility]) documented in this encounter Care Teams Market Research Intern Relationship Specialty [place] [address] [place] [address] PCP - General FAMILY PRACTICE 08/17/19 06/15/21 documented as of this encounter
--- OUTSIDE RECORDS SUMMARY | 2024-02-03 12:31 | XMS_ITS | Encounter Summary ---
Author Organization [facility] Address [address] [place] [address]. [place], [place] [address] [place] [address] Care Team Providers Care Mail Officer Name Role Phone Jessee Gregg MD Primary Care Provider +02-20 [phone] Reason for Visit * Reason Comments CT [...] on filedocumented in this encounter Care Teams Mail Officer Relationship Specialty [place] [address] [place] [address] PCP - General FAMILY PRACTICE 08/17/19 06/15/21 documented as of this encounter
--- OUTSIDE RECORDS SUMMARY | 2024-02-03 12:32 | XMS_ITS | Encounter Summary ---
Author Organization [facility] Address [address] [place] [address]. [place], [place] [address] [place] [address] Care Team Providers Care Helper Electrical Name Role Phone Jessee Gregg MD Primary Care Provider +02-20 [phone] Encounter Details Date Type Department Care Team [...] on filedocumented in this encounter Care Teams Helper Electrical Relationship Specialty [place] [address] [place] [address] PCP - General FAMILY PRACTICE 08/17/19 06/15/21 documented as of this encounter
--- OUTSIDE RECORDS SUMMARY | 2024-02-03 12:32 | XMS_ITS | Encounter Summary ---
Author Organization [facility] Address [address] [place] [address]. [place] [address] [place] [address] Care Team Providers Care Bus Steward Name Role Phone Jessee Gregg MD Primary Care Provider [phone] [phone] Reason for Visit * Reason Onset Date Comments Medication Problem 10/27/2019 Encounter Details Date Type Department Care Team (Late st Contact Info) Description 10/27/[address] [facility] [address] [place], [place] [address] Jessee Gregg MD 9401 [facility] [address] [place] [address] Medication Problem Social History Tobacco Use [...] 11/06/2019 3:44 PM CDT Called [facility] in [place] and they state they can not bill her insurance for this. They state this rx will have to be sent to a [employer] company. Called pt and informed her of this. Informed her that she will need to call her insurance co to see what DME will cover this monitor. She v/u. * Alexandra Godwin - 11/03/2019 2:13 PM CDT Pt called back wondering what was going on with her new meter for her blood sugar Please Call [phone] * Alexandra A Tato - 11/01/2019 3:26 PM CDT Pt CB# [phone] Pt called [facility] is telling pt she need pre auto for her freestyle lexi 14 day sensor machine [phone] * Bailee Bonds RN - 10/27/2019 2:01 PM CDT Sent * Alexandra Lema - 10/27/2019 12:55 PM CDT Free style lexi need to go to [facility] in [place] insurance will not pay for it at [facility] thanks documented in this encounter Plan of Treatment Not on file documented as of this encounter Visit Diagnoses Diagnosis Type 2 diabetes mellitus with diabetic nephropathy, with long-term current use of insulin (CMS/HCC [facility]) documented in this encounter Care Teams Bus Steward Relationship Specialty [place] [address] [place] [address] PCP - General FAMILY PRACTICE 08/17/19 06/15/21 documented as of this encounter
--- OUTSIDE RECORDS SUMMARY | 2024-02-03 12:32 | XMS_ITS | Encounter Summary ---
Author Organization [facility] Address [address] [place] [address]. [place] [address] [place] [address] Care Team Providers Care Acetaldehyde Converter Operator Name Role Phone Jessee Gregg MD Primary Care Provider [phone] [phone] Reason for Visit * Reason Onset Date Comments Diabetes 09/04/2019 Freestyle Sophia Encounter Details Date Type Department Care Team (Late st Contact Info) Description 09/04/2019 Telephone [facility] [address]01 [place] [address] Jessee Gregg MD [address] [address] Diabetes (Freestyle Sophia) Social History Tobacco Use [...] [facility] a [facility] Sophia 14 day one Pt CB# [phone] * Javan Purdy MA - 09/08/2019 4:24 PM CDT Called and spoke with pt, pt stated she already had all the information she needed. Pt states she called the company and spoke to them. * Rhonda Rich PharmD - 09/08/2019 12:58 PM CDT [...] [facility] is not contracted with [employer], the pt needs to reach out to one of thefollowing DME companies to determine if contacted with insurance: - [facility] at [phone] - [employer] at [phone] (ext [phone]) - [facility] [phone] The companies have to talk to the [...] they need to be changed weekly C/b# [phone]. Cristal and I both were disconnected. * [...] insulin ([facility])- Primary documented in this encounter Care Teams Acetaldehyde Converter Operator Relationship Specialty [place] [address] [place] [address] PCP - General FAMILY PRACTICE 08/17/19 06/15/21 documented as of this encounter
--- OUTSIDE RECORDS SUMMARY | 2024-02-03 12:32 | XMS_ITS | Encounter Summary ---
Author Organization [facility] Address [address] [place] [address]. [place], [place] [address] [place] [address] Care Team Providers Care Oven Equipment Repairer Name Role Phone Jessee Gregg MD Primary Care Provider [phone] [phone] Reason for Visit * Reason Comments Ultrasound (SCAN) Encounter Details Date Type Department Care Team ([facility] Contact Info) Description 09/20/2019 Scan HEALTH INFO [...] on filedocumented in this encounter Care Teams Oven Equipment Repairer Relationship Specialty [place] [address] [place] [address] PCP - General FAMILY PRACTICE 08/17/19 06/15/21 documented as of this encounter
--- OUTSIDE RECORDS SUMMARY | 2024-02-03 12:32 | XMS_ITS | Encounter Summary ---
Author Organization [facility] Address [address] [place] [address]. [place], [place] [address] [place] [address] Care Team Providers Care Account Installation Specialist Name Role Phone Jessee Gregg MD Primary Care Provider [phone] Encounter Details Date Type Department Care Team [...] on filedocumented in this encounter Care Teams Account Installation Specialist Relationship Specialty [place] [address] [place] [address] PCP - General FAMILY PRACTICE 08/17/19 06/15/21 documented as of this encounter
--- OUTSIDE RECORDS SUMMARY | 2024-02-03 12:32 | XMS_ITS | Encounter Summary ---
Author Organization [facility] Address [address] [place] [address]. [place] [address] [place] [address] Care Team Providers Care Certified Ophthalmic Assistant Name Role Phone Jessee Gregg MD Primary Care Provider [phone] [phone] Reason for Visit * Reason Onset Date Comments Other 09/07/2019 Encounter Details Date Type Department Care Team (Late st Contact Info) Description 09/07/2019 Telephone [facility] [address] [place] [address] Jessee Gregg MD 9401 [facility] [address] [place], [place] [id number] Other Social History Tobacco Use Types Packs/Day [...] the information she needs, she called the [employer] * Javan Purdy MA - 09/08/2019 8:26 [...] how often the reader wants changed cb [phone] documented in this encounter Plan of Treatment Not on file documented as of this encounter Visit Diagnoses Not on filedocumented in this encounter Care Teams Certified Ophthalmic Assistant Relationship Specialty [place] [address] [place] [address] PCP - General FAMILY PRACTICE 08/17/19 06/15/21 documented as of this encounter
--- OUTSIDE RECORDS SUMMARY | 2024-02-03 12:32 | XMS_ITS | Encounter Summary ---
Author Organization [facility] Address [address] [place] [address]. [place], [place] [address] [place] [address] Care Team Providers Care Petroleum Analyst Name Role Phone Jessee Gregg MD Primary Care Provider +02-20 [phone] Encounter Details Date Type Department Care Team [...] on filedocumented in this encounter Care Teams Petroleum Analyst Relationship Specialty [place] [address] [place] [address] PCP - General FAMILY PRACTICE 08/17/19 06/15/21 documented as of this encounter
--- OUTSIDE RECORDS SUMMARY | 2024-02-03 12:32 | XMS_ITS | Encounter Summary ---
Author Organization [facility] Address [address] [place] [address]. [place], [place] [address] [place] [address] Care Team Providers Care Winery Cellar Hand Name Role Phone Jessee Gregg MD Primary Care Provider +02-20 [phone] Encounter Details Date Type Department Care Team [...] on filedocumented in this encounter Care Teams Winery Cellar Hand Relationship Specialty [place] [address] [place] [address] PCP - General FAMILY PRACTICE 08/17/19 06/15/21 documented as of this encounter
--- OUTSIDE RECORDS SUMMARY | 2024-02-03 12:32 | XMS_ITS | Encounter Summary ---
Author Organization [facility] Address [address] [place] [address]. [place], [place] [address] [place] [address] Care Team Providers Care Advertising Account Representative Name Role Phone Jessee Gregg MD Primary Care Provider +02-20 [phone] Reason for Visit * Reason Onset Date Comments Question 08/29/2019 Encounter Details Date Type Department Care Team (Late st Contact Info) Description 08/29/2019 Telephone [facility] Family [facility] Internal Medicine [facility] [address] [place] [address] Jessee Gregg MD [address] [place] [address] Question Social History Tobacco Use Types Packs/Day [...] 10:25 AM CDT Form filled out from [facility] and awaiting Dr Gregg's signature [...] to get it mail order through the [employer] (I believe [facility] is contracted with [employer]) and cannot receive through retail pharmacy unless it's [facility] in [place]. Thanks! * Shelly España RN - 08/29/2019 3:41 PM CDT What guidelines does pt have to meet to qualify for the Freestyle Sophia monitor? * Alexandra Godwin - 08/29/2019 12:44 PM CDT Pt CB# [phone] Pt called wanting to know what going on with her new free style machine . documented in this encounter Plan of Treatment Not on file documented as of this encounter Visit Diagnoses Not on filedocumented in this encounter Care Teams Advertising Account Representative Relationship Specialty [place] [address] [place] [address] PCP - General FAMILY PRACTICE 08/17/19 06/15/21 documented as of this encounter
--- OUTSIDE RECORDS SUMMARY | 2024-02-03 12:32 | XMS_ITS | Encounter Summary ---
Author Organization [facility] Address [address] [place] [address]. [place], [place] [address] [place] [address] Care Team Providers Care Roving Technician Name Role Phone Jessee Gregg MD Primary Care Provider [phone] [phone] Reason for Visit * Reason Comments PFT [...] on filedocumented in this encounter Care Teams Roving Technician Relationship Specialty [place] [address] [place] [address] PCP - General FAMILY PRACTICE 08/17/19 06/15/21 documented as of this encounter
--- OUTSIDE RECORDS SUMMARY | 2024-02-03 12:32 | XMS_ITS | Encounter Summary ---
Author Organization [facility] Address [address] [place] [address]. [place], [place] [address] [place] [address] Care Team Providers Care Crown Assembly Machine Set Up Mechanic Name Role Phone Jessee Gregg MD Primary Care Provider +02-20 [phone] Encounter Details Date Type Department Care Team [...] on filedocumented in this encounter Care Teams Crown Assembly Machine Set Up Mechanic Relationship Specialty [place] [address] [place] [address] PCP - General FAMILY PRACTICE 08/17/19 06/15/21 documented as of this encounter
--- OUTSIDE RECORDS SUMMARY | 2024-02-03 12:33 | XMS_ITS | Encounter Summary ---
Author Organization [facility] Address [address] [place] [address]. [place] [address] [place] [address] Care Team Providers Care Water Tender Name Role Phone Dinora Medina MD Primary Care Provider [phone] Reason for Visit * Reason Comments Consult Abnormal CT chest sc an Encounter Details Date Type Department Care Team (Latest Contact Info) Description 06/10/2016 11:30 AM CDT Office Visit [facility] AT [address] [place] [address] Edgardo Ruffin MD [address] [place] [address], [address] [place] [address] Consult (Abnormal CT chest scan) [...] STRESSTED Diagnoses/Impression: 1. Coronary artery disease involving [place] coronary artery of [place] heart without angina pectorisKnown LAD stenting and RCA occlusion. Abnormal CT scan likely related to known CAD and stenting History of Present Illness: Remote stenting in setting of [place] back in 2001. Haven't seen for 5+ [...] Medical History: Diagnosis Date ??? Acute [place] 05/12/1992 ??? Chronic renal failure ??? Essential [...] Visit Diagnoses Diagnosis Coronary artery disease involving [place] coronary artery of [place] heart without angina pectoris- Primary documented in this encounter Care Teams Water Tender Relationship Specialty Start Date End Date Dinora Medina MD [address] [place] [address] PCP - General FAMILY PRACTICE 06/04/16 08/16/19 documented as of this encounter
--- OUTSIDE RECORDS SUMMARY | 2024-02-03 12:33 | XMS_ITS | Encounter Summary ---
Author Organization [facility] Address [address] [place] [address]. [place] [address] [place] [address] Care Team Providers Care Leguillon Debeader Name Role Phone Raymond Medina MD Primary Care Provider [phone] Encounter Details Date Type Department Care Team (Late st Contact Info) Description 06/08/2016 Scan [facility] [address] [place] [address] Scanned, Documents Social History Tobacco Use Types [...] on filedocumented in this encounter Care Teams Leguillon Debeader Relationship Specialty Start Date End Date Raymond Medina MD [address] [place], [place] [address] [address] PCP - General FAMILY PRACTICE 06/04/16 08/16/19 documented as of this encounter
--- OUTSIDE RECORDS SUMMARY | 2024-02-03 12:33 | XMS_ITS | Encounter Summary ---
Author Organization [facility] Address [address] [place] [address]. [place], [place] [address] [place] [address] Care Team Providers Care Managed Care Nurse Name Role Phone Raymond Medina MD Primary Care Provider [phone] Jessee Gregg MD Primary Care Provider [phone] Reason for Visit * Reason Comments Procedure (SCAN) Encounter Details Date Type Department Care Team ([facility] Contact Info) Description 06/30/2018 Scan [facility] Scanned, Documents Procedure (SCAN) Social History Tobacco Use Types Packs/Day Years Used Date Smoking Tobacco: Every Day Cigarettes Smokeless Tobacco: Never Alcohol Use Standard Drinks/Week Comments No 0 (1 standard drink = 0.6 oz pur e alcohol) PHQ-2 Answer Date Recorded PHQ-2 Score - If the patient scores above 3, please move on to questions 3-9 0 07/30/2020 Comments Unknown Sex and Gender Information Value [...] Procedure Name Priority Date/Time Associated Diagnosis Comments PROCEDURE GENERIC (SCAN ORDER) 06/30/2018 PROCEDURE GENERIC (SCAN ORDER) 06/30/2018 documented in this encounter Results * PROCEDURE GENERIC (06/30/2018) 06/30/2018 Narrative 06/30/2018 Ordered by an unspecified provider. us Documents Scanned SCANNING Final Result * PROCEDURE GENERIC (06/30/2018) 06/30/2018 Narrative 06/30/2018 Ordered by an unspecified provider. us Documents Scanned SCANNING Final Result documented in this encounter Visit Diagnoses Not on filedocumented in this encounter Care Teams Managed Care Nurse Relationship Specialty Start Date End Date Raymond Medina MD [address] [facility] [address] [place] [address] PCP - General FAMILY PRACTICE 06/04/16 08/16/19 [place] [address] [place] [address] PCP - General FAMILY PRACTICE 08/17/19 06/15/21 documented as of this encounter
--- OUTSIDE RECORDS SUMMARY | 2024-02-03 12:33 | XMS_ITS | Encounter Summary ---
Author Organization [facility] Address [address] [place] [address]. [place], [place] [address] [place] [address] Care Team Providers Care Band Reamer Machine Operator Name Role Phone Raymond Medina MD Primary Care Provider [phone] Jessee Gregg MD Primary Care Provider [phone] Reason for Visit * Reason Comments Lab [...] on filedocumented in this encounter Care Teams Band Reamer Machine Operator Relationship Specialty Start Date End Date Raymond Medina MD [address] [facility] [place] [address] PCP - General FAMILY PRACTICE 06/04/16 08/16/19 [place] [address] [place] [address] PCP - General FAMILY PRACTICE 08/17/19 06/15/21 documented as of this encounter
--- OUTSIDE RECORDS SUMMARY | 2024-02-03 12:33 | XMS_ITS | Encounter Summary ---
Author Organization [facility] Address [address] [place] [address]. [place] [address] [place] [address] Care Team Providers Care Assembler Radio And Electrical Name Role Phone Raymond Medina MD Primary Care Provider [phone] Encounter Details Date Type Department Care Team (Late st Contact Info) Description 06/08/2016 Scan [facility] [address] [place] [address] Scanned, Documents Social History Tobacco Use Types [...] on filedocumented in this encounter Care Teams Assembler Radio And Electrical Relationship Specialty Start Date End Date Raymond Medina MD [address] [place], [place] [address] [address] PCP - General FAMILY PRACTICE 06/04/16 08/16/19 documented as of this encounter
--- OUTSIDE RECORDS SUMMARY | 2024-02-03 12:33 | XMS_ITS | Encounter Summary ---
Author Organization [facility] Address [address] [place] [address]. [place], [place] [address] [place] [address] Care Team Providers Care Microsoft Exchange Architect Name Role Phone Raymond Medina MD Primary Care Provider [phone] Jessee Gregg MD Primary Care Provider [phone] Reason for Visit * Reason Comments Lab [...] on filedocumented in this encounter Care Teams Microsoft Exchange Architect Relationship Specialty Start Date End Date Raymond Medina MD [address] [facility] [place] [address] PCP - General FAMILY PRACTICE 06/04/16 08/16/19 [place] [address] [place] [address] PCP - General FAMILY PRACTICE 08/17/19 06/15/21 documented as of this encounter
--- OUTSIDE RECORDS SUMMARY | 2024-02-03 12:33 | XMS_ITS | Encounter Summary ---
Author Organization [facility] Address [address] [place] [address]. [place], [place] [address] [place] [address] Care Team Providers Care Regional Guide Name Role Phone Raymond Medina MD Primary Care Provider [phone] Jessee Gregg MD Primary Care Provider [phone] Reason for Visit * Reason Comments Lab [...] on filedocumented in this encounter Care Teams Regional Guide Relationship Specialty Start Date End Date Raymond Medina MD [address] [facility] [place] [address] PCP - General FAMILY PRACTICE 06/04/16 08/16/19 [place] [address] [place] [address] PCP - General FAMILY PRACTICE 08/17/19 06/15/21 documented as of this encounter
--- OUTSIDE RECORDS SUMMARY | 2024-02-03 12:34 | XMS_ITS | Encounter Summary ---
Author Organization [facility] Address [address] [place] [address]. [place] [address] [place] [address] Care Team Providers Care Carrier Driver Name Role Phone Raymond Medina MD Primary Care Provider [phone] Encounter Details Date Type Department Care Team (Late st Contact Info) Description 04/27/2016 Abstract [facility] [address] [place] [address] Raymond Medina MD [address] [place] [phone] Social History Tobacco Use Types Packs/Day Years [...] collapse documented in this encounter Care Teams Carrier Driver Relationship Specialty Start Date End Date Raymond Medina MD [address] [place] [address] PCP - General FAMILY PRACTICE 06/04/16 08/16/19 documented as of this encounter
--- OUTSIDE RECORDS SUMMARY | 2024-02-03 12:34 | XMS_ITS | Encounter Summary ---
Author Organization [facility] Address [address] [place] [address]. [place] [address] [place] [address] Care Team Providers Care Feed Grinder Name Role Phone Unavailable Primary Care Provider Unavailabl e Reason for Visit * Reason Onset Date Comments Consultation Needed 05/04/2016 Encounter Details Date Type Department Care Team (Late st Contact Info) Description 05/04/2016 [facility] [address] [place] [address] Edgardo Ruffin MD [address] [place] [address], [address] [place] [address] Consultation Needed Social History Tobacco Use [...] scheduled for 06/10/2016 at 11:30 am in [place]. Agustina with Dr. Medina will contact patient with appointment date and time. If patient needs seen sooner in [facility], she will call back and reschedule appointment. Appointment reminder letter mailed. documented in this encounter Plan of Treatment Not on file documented as of this encounter Visit Diagnoses Not on filedocumented in this encounter
--- OUTSIDE RECORDS SUMMARY | 2024-02-03 12:34 | XMS_ITS | Encounter Summary ---
Author Organization [facility] Address [address] [place] [address]. [place] [address] [place] [address] Care Team Providers Care Composition Siding Worker Name Role Phone Raymond Medina MD Primary Care Provider [phone] Encounter Details Date Type Department Care Team (Late st Contact Info) Description 04/29/2016 Abstract [facility] [address] [place] [address] Raymond Medina MD [address] [place] [phone] Social History Tobacco Use Types Packs/Day Years [...] unspecified documented in this encounter Care Teams Composition Siding Worker Relationship Specialty Start Date End Date Raymond Medina MD [address] [place] [address] PCP - General FAMILY PRACTICE 06/04/16 08/16/19 documented as of this encounter
--- OUTSIDE RECORDS SUMMARY | 2024-02-03 12:35 | XMS_ITS | Encounter Summary ---
Author Organization [facility] Address [address] [place] [address]. [place] [address] [place] [address] Care Team Providers Care Medical Billing Assistant Name Role Phone Raymond Medina MD Primary Care Provider [phone] Encounter Details Date Type Department Care Team (Late st Contact Info) Description 11/13/2011 Abstract [facility] Flux Plant Operator [address] [place] [address] Edgardo Dempsey MD [address] [place] [address], [address] [place] [address] Social History Tobacco Use Types Packs/Day Years [...] Procedure Name Priority Date/Time Associated Diagnosis Comments ECG 12-LEAD Routine 11/13/2011 11:04 AM CDT documented in this encounter Results * ECG 12 lead (11/13/2011 11:04 AM CDT) 11/13/2011 11:[address] [facility] - 11/13/2011 1:19 PM CDT ? [facility] ? [address] [place], [place] ??[address] ? Test Date: ?2011-11-13 Pat Name: ? ALAN MOCTEZUMA ? Department: ?? 1 ? Room: ? Gender: ? F ?Metal Container Maker: ?? JM : ?1940 ? Requested By: EDGARDO DEMPSEY Order Number: [id number] ?Reading MD: ?? [facility] ? Measurements Intervals ?[place] ? Rate: ? 46 ? P: ?36 KS: ? 184 ?QRS: ?100 QRSD: ? 106 ?T: ?-10 QT: ? 482 ? QTc: ?421 ? Interpretive Statements Marked sinus bradycardia with sinus arrhythmia Rightward axis Nonspecific ST abnormality Abnormal QRS-T angle, consider primary T wave abnormality Abnormal ECG Procedure Note , Generic MD Gayle - 10/12/2018 [place] [address] [place] [address] Test Date: 2011-11-13 Pat Name: ALAN MOCTEZUMA Department: 1 Room: Gender: F Metal Container Maker: : 1940 Requested By: EDGARDO DEMPSEY Order Number: [id number] Reading MD: Red Day Measurements Intervals [place] Rate: 46 P: 36 KS: 184 QRS: 100 QRSD: 106 T: -10 QT: 482 QTc: 421 Interpretive Statements Marked sinus bradycardia with sinus arrhythmia Rightward axis Nonspecific ST abnormality Abnormal QRS-T angle, consider primary T wave abnormality Abnormal ECG us Generic Gayle [place] MD ECG ORDERABLES Final R esult [facility] documented in this encounter Visit Diagnoses Diagnosis Coronary atherosclerosis of [place] coronary artery documented in this encounter Care Teams Medical Billing Assistant Relationship Specialty Start Date End Date Raymond Medina MD [address] [place] [address] PCP - General FAMILY PRACTICE 06/04/16 08/16/19 documented as of this encounter
--- OUTSIDE RECORDS SUMMARY | 2024-02-03 12:35 | XMS_ITS | Encounter Summary ---
Author Organization [facility] Address [address] [place] [address]. [place] [address] [place] [address] Care Team Providers Care It Senior Software Engineer Java Name Role Phone Raymond Medina MD Primary Care Provider [phone] Encounter Details Date Type Department Care Team (Late st Contact Info) Description 07/10/2015 Abstract [facility] [address] [place] [place], [place] [phone] Raymond Medina MD [address] [place] [address] Social History Tobacco Use Types [...] mammogram documented in this encounter Care Teams It Senior Software Engineer Java Relationship Specialty Start Date End Date Raymond Medina MD [address] [place] [address] PCP - General FAMILY PRACTICE 06/04/16 08/16/19 documented as of this encounter
--- OUTSIDE RECORDS SUMMARY | 2024-02-03 12:35 | XMS_ITS | Encounter Summary ---
Author Organization [facility] Address [address] [place] [address]. [place] [address] [place] [address] Care Team Providers Care Supervisor Finish End Name Role Phone Raymond Medina MD Primary Care Provider [phone] Encounter Details Date Type Department Care Team (Late st Contact Info) Description 02/19/2012 Elisha Everett [place] [address] [place], [place] [address] Dennys Cormier, DO [address] [place], [place] [address] Social History Tobacco Use Types Packs/Day Years [...] obstruction documented in this encounter Care Teams Supervisor Finish End Relationship Specialty Start Date End Date Raymond Medina MD [address] [place] [address] PCP - General FAMILY PRACTICE 06/04/16 08/16/19 documented as of this encounter
--- OUTSIDE RECORDS SUMMARY | 2024-02-03 12:35 | XMS_ITS | Encounter Summary ---
Author Organization [facility] Address [address] [place] [address]. [place] [address] [place] [address] Care Team Providers Care Louver Mortiser Operator Name Role Phone Raymond Medina MD Primary Care Provider [phone] Encounter Details Date Type Department Care Team (Late st Contact Info) Description 06/18/2014 Abstract [facility] [address] [place] [phone] Raymond Medina MD [address] [place] [address] Social History Tobacco Use Types [...] mammogram documented in this encounter Care Teams Louver Mortiser Operator Relationship Specialty Start Date End Date Raymond Medina MD [address] [place] [address] PCP - General FAMILY PRACTICE 06/04/16 08/16/19 documented as of this encounter
--- OUTSIDE RECORDS SUMMARY | 2024-02-03 12:35 | XMS_ITS | Encounter Summary ---
Author Organization [facility] Address [address] [place] [address]. [place] [address] [place] [address] Care Team Providers Care Guest Relations Executive Name Role Phone Raymond Medina MD Primary Care Provider [phone] Encounter Details Date Type Department Care Team (Late st Contact Info) Description 12/14/2013 Abstract [facility] [address] [place] [address] Raymond Medina MD [address] [place] [address] Social History Tobacco Use Types Packs/Day Years [...] site documented in this encounter Care Teams Guest Relations Executive Relationship Specialty Start Date End Date Raymond Medina MD [address] [place] [address] PCP - General FAMILY PRACTICE 06/04/16 08/16/19 documented as of this encounter
--- OUTSIDE RECORDS SUMMARY | 2024-02-03 12:35 | XMS_ITS | Encounter Summary ---
Author Organization [facility] Address [address] [place] [address]. [place] [address] [place] [address] Care Team Providers Care Material Checker Name Role Phone Raymond Medina MD Primary Care Provider [phone] Encounter Details Date Type Department Care Team (Late st Contact Info) Description 03/09/2012 Abstract [facility] [address] [facility], 2nd [place] [address] Dennys Cormier DO [address] [place] [address] Social History Tobacco Use Types Packs/Day Years [...] Comments Blood Pressure 149/74 03/09/2012 1:15 PM TERADATA SOLUTION ARCHITECT Pulse - - Temperature - - Respiratory Rate - - Oxygen Saturation - - Inhaled Oxygen Concentration - - Weight 57.6 kg (127 lb) 03/09/2012 1:15 PM TERADATA SOLUTION ARCHITECT Height 152.4 cm (5') 03/09/2012 1:15 PM TERADATA SOLUTION ARCHITECT Body Mass Index 24.8 03/09/2012 1:15 PM TERADATA SOLUTION ARCHITECT documented in this encounter Progress Notes * [...] Social History ?? Current Smoker 305.1 ?? [place] Language Citizen Of [place] Current Meds 1. AmLODIPine Besylate TABS; Therapy: (Recorded:[id number]) to 2. Aspirin TABS; Therapy: (Recorded:00Ifh8003) to 3. Lasix TABS; Therapy: (Recorded:[id number]) to 4. Lisinopril TABS; Therapy: (Recorded:71Qrq4659) to 5. Lovastatin TABS; Therapy: (Recorded:[id number]) to 6. MetFORMIN HCl TABS; Therapy: (Recorded:27Cmi6974) to 7. Metoprolol Tartrate TABS; Therapy: (Recorded:96Iai9503) to 8. NovoLOG SOLN; Therapy: (Recorded:64Cvx4388) to 9. Potassium TABS; Therapy: (Recorded:27Mls1233) to 10. PriLOSEC CPDR; Therapy: (Recorded:94Lff6466) to 11. Synthroid TABS; Therapy: (Recorded:[id number]) to Allergies 1. No Known Drug Allergies [...] Cholecystectomy Laparoscopic 7. Current Smoker 305.1 8. [place] Language Citizen [place] Discussion/Summary Discussion Summary: Doing very well. No complaints. Can resume activity as tolerated. Asked that she follow up should sahe have any further questions or concerns. Signatures Electronically signed by : Dennys Cormier D.O.; Mar 09 2012 3:11PM (Author) DATA SOLUTION ARCHITECT documented in this encounter Plan of Treatment Not on file documented as of this encounter Procedures Procedure Name Priority Date/Time Associated Diagnosis Comments COLONOSCOPY Routine TERADATA SOLUTION ARCHITECT documented in this encounter Results * Colonoscopy ( TERADATA SOLUTION ARCHITECT) Narrative [facility] TO EPIC CONVERSION - TERADATA SOLUTION ARCHITECT Documented hx of procedure Procedure Note Brian Hopper MD - 12/19/2017 Documented hx of procedure us Generic Conversion Md [facility] GI PROCEDURE ORDERABLES Final Result [facility] TO EPIC CONVERSION documented in this encounter Visit Diagnoses Not on filedocumented in this encounter Care Teams Material Checker Relationship Specialty Start Date End Date Raymond Medina MD [address] [place] [address] PCP - General FAMILY PRACTICE 06/04/16 08/16/19 documented as of this encounter
--- OUTSIDE RECORDS SUMMARY | 2024-02-03 12:35 | XMS_ITS | Encounter Summary ---
Author Organization [facility] Address [address] [place] [address]. [place] [address] [place] [address] Care Team Providers Care Account Services Representative Name Role Phone Raymond Medina MD Primary Care Provider [phone] Encounter Details Date Type Department Care Team (Late st Contact Info) Description 01/20/2012 Abstract [facility] [address] [place] [address] Raymond Medina MD [address] [place] [phone] Social History Tobacco Use Types Packs/Day Years [...] site documented in this encounter Care Teams Account Services Representative Relationship Specialty Start Date End Date Raymond Medina MD [address] [place] [address] PCP - General FAMILY PRACTICE 06/04/16 08/16/19 documented as of this encounter
--- OUTSIDE RECORDS SUMMARY | 2024-02-03 12:35 | XMS_ITS | Encounter Summary ---
Author Organization [facility] Address [address] [place] [address]. [place] [address] [place] [address] Care Team Providers Care Band Singer Name Role Phone Raymond Medina MD Primary Care Provider [phone] Encounter Details Date Type Department Care Team (Late st Contact Info) Description 10/30/2011 Abstract [facility] [address] [place] [address] Edgardo Ruffin MD [address] [place] [address], [address] [place] [address] Social History Tobacco Use Types [...] monitoring documented in this encounter Care Teams Band Singer Relationship Specialty Start Date End Date Raymond Medina MD [address] [place], [place] [address] [address] PCP - General FAMILY PRACTICE 06/04/16 08/16/19 documented as of this encounter
--- OUTSIDE RECORDS SUMMARY | 2024-02-03 12:35 | XMS_ITS | Encounter Summary ---
Author Organization [facility] Address [address] [place] [address]. [place] [address] [place] [address] Care Team Providers Care Custodial Engineer Name Role Phone Raymond Medina MD Primary Care Provider [phone] Encounter Details Date Type Department Care Team (Late st Contact Info) Description 01/26/2012 Abstract [facility] [address] [facility], 2nd [place] [address] Dennys Cormier DO [address] [place] [address] Social History Tobacco Use Types Packs/Day Years [...] Comments Blood Pressure 149/74 01/26/2012 9:04 AM HOSEMAN Pulse - - Temperature - - Respiratory Rate - - Oxygen Saturation - - Inhaled Oxygen Concentration - - Weight 57.6 kg (127 lb) 01/26/2012 9:04 AM HOSEMAN Height 152.4 cm (5') 01/26/2012 9:04 AM HOSEMAN Body Mass Index 24.8 01/26/2012 9:04 AM HOSEMAN documented in this encounter Progress Notes * DO Calixto Cornejo 01/26/2012 8:45 AM CST Past Medical History 1. History of Abdominal Pain 789.00 2. History of Cholelithiasis 574.20 Surgical History 1. History of Appendectomy 2. History of Complete Colonoscopy 3. History of Hysterectomy V88.01 Social History ?? Current Smoker 305.1 ?? [place] Language [place]an Current Meds 1. AmLODIPine Besylate TABS; Therapy: [...] Refill: 0; Record; Last Updated By: Kellie Bowels 9. Potassium TABS; Therapy: (Recorded:26Jan2012) to Recorded; Dispense: 0 Days ; #: Sufficient TABS; Refill: 0; Record; Last Updated By: Kellie Bowles 10. PriLOSEC CPDR; Therapy: (Recorded:26Jan2012) to Recorded; Dispense: 0 Days ; #: Sufficient CPDR; Refill: 0; Record; Last Updated By: Kellie Bowles 11. Synthroid TABS; Therapy: (Recorded:40Paf2708) to Recorded; Dispense: 0 Days ; #: [...] Hysterectomy V88.01 6. Current Smoker 305.1 7. [place] Language Samoan MAN documented in this encounter Plan of Treatment Not on file documented as of this encounter Visit Diagnoses Not on filedocumented in this encounter Care Teams Custodial Engineer Relationship Specialty Start Date End Date Raymond Medina MD [address] [place] [address] PCP - General FAMILY PRACTICE 06/04/16 08/16/19 documented as of this encounter
--- OUTSIDE RECORDS SUMMARY | 2024-02-03 12:35 | XMS_ITS | Encounter Summary ---
Author Organization [facility] Address [address] [place] [address]. [place] [address] [place] [address] Care Team Providers Care Gypsum Roofer Name Role Phone Unavailable Primary Care Provider Unavailabl e Encounter Details Date Type Department Care Team (Late st Contact Info) Description 10/30/2011 Abstract [facility] [address] [place] [address] , Generic ConversionMD Social History Tobacco Use [...]
--- OUTSIDE RECORDS SUMMARY | 2024-02-03 12:35 | XMS_ITS | Encounter Summary ---
Author Organization [facility] Address [address] [place] [address]. [place] [address] [place] [address] Care Team Providers Care Plaster Machine Tender Name Role Phone Raymond Medina MD Primary Care Provider [phone] Encounter Details Date Type Department Care Team (Late st Contact Info) Description 05/22/2013 Abstract [facility] [address] [place], [place] [phone] Raymond Medina MD [address] [place] [address] Social History Tobacco Use Types Packs/Day [...] mammogram documented in this encounter Care Teams Plaster Machine Tender Relationship Specialty Start Date End Date Raymond Medina MD [address] [place] [address] PCP - General FAMILY PRACTICE 06/04/16 08/16/19 documented as of this encounter
--- OUTSIDE RECORDS SUMMARY | 2024-02-03 12:35 | XMS_ITS | Encounter Summary ---
Author Organization [facility] - [facility] Address [address] [place] [address]. [place] [address] [place] [address] Care Team Providers Care Agricultural Education Instructor Name Role Phone Raymond Medina MD Primary Care Provider [phone] Encounter Details Date Type Department Care Team (Late st Contact Info) Description 02/19/2012 Abstract [facility] Formerly [facility], [facility], 2nd [place] [address] Dennys Cormier, DO [address] [place] [address] Social History Tobacco Use Types Packs/Day Years [...] on filedocumented in this encounter Care Teams Agricultural Education Instructor Relationship Specialty Start Date End Date Raymond Medina MD [facility] [place] [address] PCP - General FAMILY PRACTICE 06/04/16 08/16/19 documented as of this encounter
--- OUTSIDE RECORDS SUMMARY | 2024-02-03 12:35 | XMS_ITS | Encounter Summary ---
Author Organization [facility] Address [address] [place] [address]. [place] [address] [place] [address] Care Team Providers Care Rn Postpartum Name Role Phone Unavailable Primary Care Provider Unavailabl e Encounter Details Date Type Department Care Team (Late st Contact Info) Description 11/13/2011 Abstract [facility] [address] [place] [address] , Brian Araujo MD Social History Tobacco [...]
--- OUTSIDE RECORDS SUMMARY | 2024-02-03 12:35 | XMS_ITS | Encounter Summary ---
Author Organization [facility] Address [address] [place] [address]. [place] [address] [place] [address] Care Team Providers Care Cloth Stretcher Name Role Phone Unavailable Primary Care Provider Unavailabl e Encounter Details Date Type Department Care Team (Late st Contact Info) Description 11/05/2011 Abstract [facility] [address] [place] [address] , Brian Araujo MD Social History Tobacco [...]
--- OUTSIDE RECORDS SUMMARY | 2024-02-03 12:35 | XMS_ITS | Encounter Summary ---
Author Organization [facility] - [facility] Address [address] [place] [address]. [place] [address] [place] [address] Care Team Providers Care Sample Sewer Name Role Phone Raymond Medina MD Primary Care Provider [phone] Jessee Gregg MD Primary Care Provider [phone] Encounter Details Date Type Department Care Team (Late st Contact Info) Description 10/30/2011 Abstract [facility] [address] [place] [address] New Referring, Provider Social History [...] on filedocumented in this encounter Care Teams Sample Sewer Relationship Specialty Start Date End Date Raymond Medina MD [address] [place] [address] PCP - General FAMILY PRACTICE 06/04/16 08/16/19 [place] [address] [place] [address] PCP - General FAMILY PRACTICE 08/17/19 06/15/21 documented as of this encounter
--- OUTSIDE RECORDS SUMMARY | 2024-02-03 12:35 | XMS_ITS | Encounter Summary ---
Author Organization [facility] - [facility] Address [address] [place] [address]. [place] [address] [place] [address] Care Team Providers Care Supply Clerk Name Role Phone Raymond Medina MD Primary Care Provider [phone] Encounter Details Date Type Department Care Team (Late st Contact Info) Description 02/19/2012 Abstract [facility] [address] [place] [address] Dennys Cormier, DO [address] [place] [address] Social History Tobacco Use Types Packs/Day Years [...] examination documented in this encounter Care Teams Supply Clerk Relationship Specialty [place] [address] [place], [place] [address] [address] PCP - General FAMILY PRACTICE 06/04/16 08/16/19 documented as of this encounter
--- OUTSIDE RECORDS SUMMARY | 2024-02-03 12:35 | XMS_ITS | Encounter Summary ---
Author Organization [facility] - [facility] Address [address] [place] [address]. [place], [place] [address] [place] [address] Care Team Providers Care Channel Process Supervisor Name Role Phone Raymond Medina MD Primary Care Provider [phone] Encounter Details Date Type Department Care Team (Latest Contact Info) Description 01/20/2012 Abstract [facility] Social History Tobacco Use Types [...] on filedocumented in this encounter Care Teams Channel Process Supervisor Relationship Specialty [place] [address] [place], [place] [address] [address] PCP - General FAMILY PRACTICE 06/04/16 08/16/19 documented as of this encounter
--- OUTSIDE RECORDS SUMMARY | 2024-02-03 12:35 | XMS_ITS | Encounter Summary ---
Author Organization [facility] - [facility] Address [address] [place] [address]. [place], [place] [address] [place] [address] Care Team Providers Care Operations Dispatcher Name Role Phone Raymond Medina MD Primary Care Provider [phone] Encounter Details Date Type Department Care Team (Latest Contact Info) Description 01/25/2012 Abstract [facility] Social History Tobacco Use [...] on filedocumented in this encounter Care Teams Operations Dispatcher Relationship Specialty [place] [address] [place], [place] [address] [address] PCP - General FAMILY PRACTICE 06/04/16 08/16/19 documented as of this encounter
--- OUTSIDE RECORDS SUMMARY | 2024-02-03 12:35 | XMS_ITS | Encounter Summary ---
Author Organization [facility] Address [address] [place] [address]. [place] [address] [place] [address] Care Team Providers Care Psych Nurse Name Role Phone Raymond Medina MD Primary Care Provider [phone] Encounter Details Date Type Department Care Team (Late st Contact Info) Description 03/28/2014 Abstract [facility] [address] [place] [address] Raymond Medina MD [address] [place] [address] Social History Tobacco Use Types [...] field documented in this encounter Care Teams Psych Nurse Relationship Specialty Start Date End Date Raymond Medina MD [address] [place] [address] PCP - General FAMILY PRACTICE 06/04/16 08/16/19 documented as of this encounter
--- OUTSIDE RECORDS SUMMARY | 2024-02-03 12:35 | XMS_ITS | Encounter Summary ---
Author Organization [facility] Address [address] [place] [address]. [place] [address] [place] [address] Care Team Providers Care Batch Plant Supervisor Name Role Phone Unavailable Primary Care Provider Unavailabl e Encounter Details Date Type Department Care Team (Late st Contact Info) Description 11/05/2011 [facility] [address] [place] [address] , Brian Araujo MD Social History Tobacco [...]
--- OUTSIDE RECORDS SUMMARY | 2024-02-03 12:35 | XMS_ITS | Encounter Summary ---
Author Organization [facility] - [facility] Address [address] [place] [address]. [place] [address] [place] [address] Care Team Providers Care Automobile Assembler Name Role Phone Raymond Medina MD Primary Care Provider [phone] Encounter Details Date Type Department Care Team (Late st Contact Info) Description 10/27/[address] [facility] [address] [place] [address] Raymond Medina MD [address] [place] [address] Social History Tobacco Use Types [...] pectoris documented in this encounter Care Teams Automobile Assembler Relationship Specialty Start Date End Date Raymond Medina MD [address] [place] [address] PCP - General FAMILY PRACTICE 06/04/16 08/16/19 documented as of this encounter
--- OUTSIDE RECORDS SUMMARY | 2024-02-03 12:36 | XMS_ITS | Encounter Summary ---
Author Organization [facility] - [facility] Address [address] [place] [address]. [place] [address] [place] [address] Care Team Providers Care Life Management Teacher Name Role Phone Raymond Medina MD Primary Care Provider [phone] Encounter Details Date Type Department Care Team (Late st Contact Info) Description 08/26/2009 Abstract [facility] [address] [place], [place] [id number] Raymond Medina MD [address] [place] [address] Social History Tobacco Use Types Packs/Day [...] collapse documented in this encounter Care Teams Life Management Teacher Relationship Specialty Start Date End Date Raymond Medina MD [address] [place] [address] PCP - General FAMILY PRACTICE 06/04/16 08/16/19 documented as of this encounter
--- OUTSIDE RECORDS SUMMARY | 2024-02-03 12:36 | XMS_ITS | Encounter Summary ---
Author Organization [facility] Address [address] [place] [address]. [place] [address] [place] [address] Care Team Providers Care Geological Technical Officer Name Role Phone Raymond Medina MD Primary Care Provider [phone] Encounter Details Date Type Department Care Team (Late st Contact Info) Description 03/22/2002 Abstract [facility] [address] [place] [address] Edgardo Ruffin MD [address] [place] [address], [address] [place] [address] Social History Tobacco Use Types [...] on filedocumented in this encounter Care Teams Geological Technical Officer Relationship Specialty Start Date End Date Raymond Medina MD [address] [place], [place] [address] [address] PCP - General FAMILY PRACTICE 06/04/16 08/16/19 documented as of this encounter
--- OUTSIDE RECORDS SUMMARY | 2024-02-03 12:36 | XMS_ITS | Encounter Summary ---
Author Organization [facility] - [facility] Address [address] [place] [address]. [place] [address] [place] [address] Care Team Providers Care Cable Driller Name Role Phone Raymond Medina MD Primary Care Provider [phone] Encounter Details Date Type Department Care Team (Late st Contact Info) Description 06/03/2010 Abstract [facility] [address] [place], [place] [id number] Raymond Medina MD [address] [place] [address] Social History Tobacco Use Types Packs/Day [...] mammogram documented in this encounter Care Teams Cable Driller Relationship Specialty Start Date End Date Raymond Medina MD [address] [place] [address] PCP - General FAMILY PRACTICE 06/04/16 08/16/19 documented as of this encounter
--- OUTSIDE RECORDS SUMMARY | 2024-02-03 12:36 | XMS_ITS | Encounter Summary ---
Author Organization [facility] - [facility] Address [address] [place] [address]. [place] [address] [place] [address] Care Team Providers Care Planning Feeder Name Role Phone Raymond Medina MD Primary Care Provider [phone] Encounter Details Date Type Department Care Team (Late st Contact Info) Description 03/23/2002 Abstract [facility] Poultry Feed Supervisor [address] [place] [address] Edgardo Ruffin MD [address] [place] [address], [address] [place] [address] Social History Tobacco Use Types Packs/Day [...] on filedocumented in this encounter Care Teams Planning Feeder Relationship Specialty Start Date End Date Raymond Medina MD [address] [place], [place] [address] [address] PCP - General FAMILY PRACTICE 06/04/16 08/16/19 documented as of this encounter
--- OUTSIDE RECORDS SUMMARY | 2024-02-03 12:36 | XMS_ITS | Encounter Summary ---
Author Organization [facility] - [facility] Address [address] [place] [address]. [place] [address] [place] [address] Care Team Providers Care Bridge Worker Name Role Phone Raymond Medina MD Primary Care Provider [phone] Encounter Details Date Type Department Care Team (Late st Contact Info) Description 09/21/2011 Abstract [facility] [address] [place], [place] [id number] Raymond Medina MD [address] [place] [address] Social History Tobacco Use Types Packs/Day [...] mammogram documented in this encounter Care Teams Bridge Worker Relationship Specialty Start Date End Date Raymond Medina MD [address] [place] [address] PCP - General FAMILY PRACTICE 06/04/16 08/16/19 documented as of this encounter
--- OUTSIDE RECORDS SUMMARY | 2024-02-03 12:36 | XMS_ITS | Encounter Summary ---
Author Organization [facility] - [facility] Address [address] [place] [address]. [place] [address] [place] [address] Care Team Providers Care Lubrication Servicer Name Role Phone Raymond Medina MD Primary Care Provider [phone] Encounter Details Date Type Department Care Team (Late st Contact Info) Description 11/19/2006 Abstract [facility] [address] [place] [id number] Raymond Medina MD [address] [place] [address] Social History Tobacco Use Types Packs/Day [...] on filedocumented in this encounter Care Teams Lubrication Servicer Relationship Specialty Start Date End Date Raymond Medina MD [address] [place] [address] PCP - General FAMILY PRACTICE 06/04/16 08/16/19 documented as of this encounter
--- OUTSIDE RECORDS SUMMARY | 2024-02-03 12:36 | XMS_ITS | Encounter Summary ---
Author Organization [facility] Address [address] [place] [address]. [place] [address] [place] [address] Care Team Providers Care Kennel Aide Name Role Phone Raymond Medina MD Primary Care Provider [phone] Encounter Details Date Type Department Care Team (Late st Contact Info) Description 08/20/2009 Abstract [facility] [address] [place], [place] [id number] Raymond Medina MD [address] [place] [address] Social History Tobacco Use Types Packs/Day [...] hypertension documented in this encounter Care Teams Kennel Aide Relationship Specialty Start Date End Date Raymond Medina MD [address] [place] [address] PCP - General FAMILY PRACTICE 06/04/16 08/16/19 documented as of this encounter
--- OUTSIDE RECORDS SUMMARY | 2024-02-03 12:36 | XMS_ITS | Encounter Summary ---
Author Organization [facility] Address [address] [place] [address]. [place] [address] [place] [address] Care Team Providers Care Pig Furnace Operator Name Role Phone Unavailable Primary Care Provider Unavailabl e Encounter Details Date Type Department Care Team (Late st Contact Info) Description 05/26/2011 Abstract [facility] [address] [place] [address] , Brian Araujo MD Social History Tobacco [...]
--- OUTSIDE RECORDS SUMMARY | 2024-02-03 12:36 | XMS_ITS | Encounter Summary ---
Author Organization [facility] Address [address] [place] [address]. [place] [address] [place] [address] Care Team Providers Care Bill Adjuster Name Role Phone Unavailable Primary Care Provider Unavailabl e Encounter Details Date Type Department Care Team (Late st Contact Info) Description 10/27/2011 Abstract [facility] [address] [place] [address] , Brian Araujo MD Social History Tobacco [...]
--- OUTSIDE RECORDS SUMMARY | 2024-02-03 12:36 | XMS_ITS | Encounter Summary ---
Author Organization [facility] Address [address] [place] [address]. [place] [address] [place] [address] Care Team Providers Care Greenhouse Or Nursery Transplanter Name Role Phone Raymond Medina MD Primary Care Provider [phone] Encounter Details Date Type Department Care Team (Late st Contact Info) Description 03/18/2002 Abstract [facility] [address] [place] [address] , Generic Conversion, Social History Tobacco Use [...] on filedocumented in this encounter Care Teams Greenhouse Or Nursery Transplanter Relationship Specialty Start Date End Date Raymond Medina MD [address] [place] [address] PCP - General FAMILY PRACTICE 06/04/16 08/16/19 documented as of this encounter
--- OUTSIDE RECORDS SUMMARY | 2024-02-03 12:36 | XMS_ITS | Encounter Summary ---
Author Organization [facility] Address [address] [place] [address]. [place] [address] [place] [address] Care Team Providers Care Category Consultant Name Role Phone Raymond Medina MD Primary Care Provider [phone] Encounter Details Date Type Department Care Team (Late st Contact Info) Description 05/28/[address] [address] [place] [address] Oumar Cornejo MD [address] [place] [address] Social History Tobacco Use Types [...] anus documented in this encounter Care Teams Category Consultant Relationship Specialty Start Date End Date Raymond Medina MD [address] [place] [address] PCP - General FAMILY PRACTICE 06/04/16 08/16/19 documented as of this encounter
--- OUTSIDE RECORDS SUMMARY | 2024-02-03 12:36 | XMS_ITS | Encounter Summary ---
Author Organization [facility] - [facility] Address [address] [place] [address]. [place] [address] [place] [address] Care Team Providers Care Warehouse Assembly Worker Name Role Phone Raymond Medina MD Primary Care Provider [phone] Encounter Details Date Type Department Care Team (Late st Contact Info) Description 11/25/2006 Abstract [facility] [address] [place], [place] [phone] Raymond Medina MD [address] [place] [...] on filedocumented in this encounter Care Teams Warehouse Assembly Worker Relationship Specialty Start Date End Date Raymond Medina MD [address] [place] [address] PCP - General FAMILY PRACTICE 06/04/16 08/16/19 documented as of this encounter
--- OUTSIDE RECORDS SUMMARY | 2024-02-03 12:38 | XMS_ITS | Encounter Summary ---
Author Organization [facility] - [facility] Address [address] [place] [address]. [place] [address] [place] [address] Care Team Providers Care Data Center Engineer Name Role Phone Ryamond Medina MD Primary Care Provider [phone] Encounter Details Date Type Department Care Team (Late st Contact Info) Description 10/27/1998 Abstract [facility] [address] [place] [address] , Generic ConversionMD Social History Tobacco Use [...] on filedocumented in this encounter Care Teams Data Center Engineer Relationship Specialty Start Date End Date Raymond Medina MD [address] [place] [address] PCP - General FAMILY PRACTICE 06/04/16 08/16/19 documented as of this encounter
--- OUTSIDE RECORDS SUMMARY | 2024-02-03 12:38 | XMS_ITS | Encounter Summary ---
Author Organization [facility] Address [address] [place] [address]. [place] [address] [place] [address] Care Team Providers Care Servicer Coin Machines Name Role Phone Raymond Medina MD Primary Care Provider [phone] Encounter Details Date Type Department Care Team (Late st Contact Info) Description 01/15/1998 Abstract [facility] [address] [place] [address] , Generic ConversionMD Social History Tobacco Use [...] on filedocumented in this encounter Care Teams Servicer Coin Machines Relationship Specialty Start Date End Date Raymond Medina MD [address] [place] [address] PCP - General FAMILY PRACTICE 06/04/16 08/16/19 documented as of this encounter
--- OUTSIDE RECORDS SUMMARY | 2024-02-03 12:38 | XMS_ITS | Encounter Summary ---
Author Organization [facility] - [facility] Address [address] [place] [address]. [place] [address] [place] [address] Care Team Providers Care Fuel Efficient Automobile Designer Name Role Phone Raymond Medina MD Primary Care Provider [phone] Encounter Details Date Type Department Care Team (Late st Contact Info) Description 03/25/1999 Abstract [facility] [address] [place] [address] , Generic ConversionMD Social History Tobacco Use [...] on filedocumented in this encounter Care Teams Fuel Efficient Automobile Designer Relationship Specialty Start Date End Date Raymond Medina MD [address] [place] [address] PCP - General FAMILY PRACTICE 06/04/16 08/16/19 documented as of this encounter
--- OUTSIDE RECORDS SUMMARY | 2024-02-03 12:38 | XMS_ITS | Encounter Summary ---
Author Organization [facility] - [facility] Address [address] [place] [address]. [place] [address] [place] [address] Care Team Providers Care International Tax Manager Name Role Phone Raymond Medina MD Primary Care Provider [phone] Encounter Details Date Type Department Care Team (Late st Contact Info) Description 11/19/1998 Abstract [facility] [address] [place] [address] , Generic ConversionMD Social History Tobacco Use [...] filedocumented in this encounter Care Teams International Tax Manager Relationship Specialty Start Date End Date Raymond Medina MD [address] [place] [address] PCP - General FAMILY PRACTICE 06/04/16 08/16/19 documented as of this encounter
--- OUTSIDE RECORDS SUMMARY | 2024-02-03 12:38 | XMS_ITS | Encounter Summary ---
Author Organization [facility] Address [address] [place] [address]. [place] [address] [place] [address] Care Team Providers Care Mouse Breeder Name Role Phone Raymond Medina MD Primary Care Provider [phone] Encounter Details Date Type Department Care Team (Late st Contact Info) Description 04/01/1999 Abstract [facility] [address] [place] [address] , Generic ConversionMD Social History Tobacco Use [...] on filedocumented in this encounter Care Teams Mouse Breeder Relationship Specialty Start Date End Date Raymond Medina MD [address] [place] [address] PCP - General FAMILY PRACTICE 06/04/16 08/16/19 documented as of this encounter
--- OUTSIDE RECORDS SUMMARY | 2024-02-03 12:38 | XMS_ITS | Encounter Summary ---
Author Organization [facility] - [facility] Address [address] [place] [address]. [place] [address] [place] [address] Care Team Providers Care Eap Consultant Name Role Phone Raymond Medina MD Primary Care Provider [phone] Encounter Details Date Type Department Care Team (Late st Contact Info) Description 10/17/1998 Abstract [facility] [address] [place] [address] , Generic ConversionMD Social History Tobacco Use [...] on filedocumented in this encounter Care Teams Eap Consultant Relationship Specialty Start Date End Date Raymond Medina MD [address] [place] [address] PCP - General FAMILY PRACTICE 06/04/16 08/16/19 documented as of this encounter
--- OUTSIDE RECORDS SUMMARY | 2024-02-03 12:38 | XMS_ITS | Encounter Summary ---
Author Organization [facility] Address [address] [place] [address]. [place] [address] [place] [address] Care Team Providers Care Conservation Of Resources Commissioner Name Role Phone Raymond Medina MD Primary Care Provider [phone] Encounter Details Date Type Department Care Team (Late st Contact Info) Description 11/08/1998 Abstract [facility] [address] [place] [address] , Generic ConversionMD Social History Tobacco Use [...] on filedocumented in this encounter Care Teams Conservation Of Resources Commissioner Relationship Specialty Start Date End Date Raymond Medina MD [address] [place] [address] PCP - General FAMILY PRACTICE 06/04/16 08/16/19 documented as of this encounter
--- OUTSIDE RECORDS SUMMARY | 2024-02-03 12:39 | XMS_ITS | Encounter Summary ---
Author Organization [facility] - [facility] Address [address] [place] [address]. [place] [address] [place] [address] Care Team Providers Care Representative Government Relations Name Role Phone Raymond Medina MD Primary Care Provider [phone] Encounter Details Date Type Department Care Team (Late st Contact Info) Description 05/17/1992 Abstract SJS CONVERSION [address] [place] [address] , Generic ConversionMD Social History Tobacco Use [...] on filedocumented in this encounter Care Teams Representative Government Relations Relationship Specialty Start Date End Date Raymond Medina MD [address] [place] [address] [place] [address] PCP - General FAMILY PRACTICE 06/04/16 08/16/19 documented as of this encounter
--- OUTSIDE RECORDS SUMMARY | 2024-02-03 12:39 | XMS_ITS | Encounter Summary ---
Author Organization [facility] - [facility] Address [address] [place] [address]. [place] [address] [place] [address] Care Team Providers Care Boring Mill Operator For Metal Name Role Phone Raymond Medina MD Primary Care Provider [phone] Encounter Details Date Type Department Care Team (Late st Contact Info) Description 03/12/1997 Abstract SFL CONVERSION [address] [place] [address] , Generic ConversionMD Social History Tobacco Use [...] on filedocumented in this encounter Care Teams Boring Mill Operator For Metal Relationship Specialty Start Date End Date Raymond Medina MD [address] [place] [address] PCP - General FAMILY PRACTICE 06/04/16 08/16/19 documented as of this encounter
--- OUTSIDE RECORDS SUMMARY | 2024-02-03 12:39 | XMS_ITS | Encounter Summary ---
Author Organization [facility] - [facility] Address [address] [place] [address]. [place] [address] [place] [address] Care Team Providers Care Dietetics Professor Name Role Phone Raymond Medina MD Primary Care Provider [phone] Encounter Details Date Type Department Care Team (Late st Contact Info) Description 02/28/1997 Abstract SFL CONVERSION [address] [place] [address] , Generic ConversionMD Social History Tobacco Use [...] on filedocumented in this encounter Care Teams Dietetics Professor Relationship Specialty Start Date End Date Raymond Medina MD [address] [place] [address] PCP - General FAMILY PRACTICE 06/04/16 08/16/19 documented as of this encounter
--- OUTSIDE RECORDS SUMMARY | 2024-02-03 12:39 | XMS_ITS | Encounter Summary ---
Author Organization [facility] - [facility] Address [address] [place] [address]. [place] [address] [place] [address] Care Team Providers Care An/Syq 13 Nav/C2 Operator Name Role Phone Raymond Medina MD Primary Care Provider [phone] Encounter Details Date Type Department Care Team (Late st Contact Info) Description 03/07/1997 Abstract SFL CONVERSION [address] [place] [address] , Generic ConversionMD Social History Tobacco Use [...] on filedocumented in this encounter Care Teams An/Syq 13 Nav/C2 Operator Relationship Specialty Start Date End Date Raymond Medina MD [address] [place] [address] PCP - General FAMILY PRACTICE 06/04/16 08/16/19 documented as of this encounter
--- OUTSIDE RECORDS SUMMARY | 2024-02-03 12:50 | XMS_ITS | Continuity of Care Document ---
Author Organization [facility] Address [address] [place] [address] Phone Care Team Providers Care Audio/Visual Operator Name Role Phone Jm Burrows MD Unavailable [...] Diagnoses Date Provider Providers Copied on Encounter [facility], [address], [place], [place], [address], [place] tel:[phone] SEC Faheem SOW Professional a comprehensive exam (chief complaint) FOLLOW-UP SURGERY NOS 4 Stormy Oneal. [address], [address], [place], [place], [address], [place]. tel:[phone] Referring Provider: Maulik Blanco, [address], [place], [address] . tel:[phone] [facility], [address], [place], [place], [address], [place] [phone] SEC Faheem JUANJOSE Professional a comprehensive exam (chief complaint) FOLLOW-UP SURGERY NOS 3 Stormy Oneal. [address], [address], [place], [place], [address], [place]. tel:[phone] Referring Provider: Maulik Blanco, [address], [place], [address] . tel:[phone] [facility], [address], [place], [place], [address], [place] tel:[phone] SEC Faheem SOW Professional a comprehensive exam (chief complaint) FOLLOW-UP SURGERY NOS 3 Vani Agrawal. [address] [facility], [address], [place], [address], [place]. tel:[phone] Referring Provider: Maulik Blanco, [address], [place], [address] . tel:[phone] [facility], [address], [place], [place], [address], [place] [phone] [facility] No Information 3 Latrice Willingham. [address], [address], [place], [place], [address], [place]. tel:[phone] Referring Provider: Maulik Blanco, [facility] [address], [place], [address] . tel:[phone] [facility], [address] [place], [place] [address], [place], [place], [address], [place] tel:[phone] SEC Maurice Branham No Information 3 Latrice Willingham. [address], [address], [place], [place], [address], [place]. tel:[phone] Referring Provider: Maulik Blanco, [facility] [address], [place], [address] . tel:[phone] [email or web address], [facility] [address], [place], [place], [address], [place] tel:[phone] SEC Maurice N Lindberg No Information 3 Latrice Willingham. [facility] [address], [address], [place], [place], [address], [place]. 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 [facility] [employer], [address], [place], [place], [address], [place]. tel:[phone] Referring Provider: Maulik Blanco, [facility] [address], [place], [address] . tel:[phone] [facility]pa tient Visit, [facility], [facility] [address], [place], [place], [address], [place] tel:[phone] [facility] No Information Oct- 6200 8 Philomena Chaneyn. [address] , [address], [place], [address], [place]. tel:[phone] Referring Provider: Deni Anderson, [address] [place], [address]. tel:[phone] Family History Family Member Type Diagnosis Age At Onset No Information Payers Payer name Insurance type Covered republican ID Authoriza tion(s) No Information Social History [...]
== END 2024-01-30 04:58 | disposition short-term general hospital (02) ==
PROVIDERS: Emergency Provider Internal Medicine Critical Care Medicine
DX: J96.22 Acute and chronic respiratory failure with hypercapnia (principal); J96.21 Acute and chronic respiratory failure with hypoxia; E11.65 Type 2 diabetes mellitus with hyperglycemia; J44.1 Chronic obstructive pulmonary disease with (acute) exacerbation; I25.10 Atherosclerotic heart disease of native coronary artery without angina pectoris; E03.9 Hypothyroidism, unspecified; I13.0 Hypertensive heart and chronic kidney disease with heart failure and stage 1 through stage 4 chronic kidney disease, or unspecified chronic kidney disease; E11.22 Type 2 diabetes mellitus with diabetic chronic kidney disease; N18.9 Chronic kidney disease, unspecified; I50.30 Unspecified diastolic (congestive) heart failure; Z87.891 Personal history of nicotine dependence; Z99.81 Dependence on supplemental oxygen; Z20.822 Contact with and (suspected) exposure to COVID-19
CPT/HCPCS: 36415; 36556; 36600; 71045; 71275; 80053; 82805; 83605; 83880; 84443; 84484; 85018; 85025; 85380; 85610; 85730; 87040; 87147; 87181; 87637; 93005; 96365; 96367; 96374; 96375; 99285; C1751; J0456; J0696; J1815; J1940; J2270; J2305; J2405; J7040; Q9967

== ENCOUNTER 2024-03-12 05:11 | Emergency (ER) | payer MEDICARE, SELFPAY ==
[2024-03-12] VITALS (98 sets, daily range): BP systolic 93–157; BP diastolic 43–86; PULSE 70–112; RESP 13–38; TEMP 36.9–37; O2SAT 46–100
--- NOTE | ~2024-03-12 | CT_ITS ---
CT Scan of the Chest without Contrast: Clinical Indication: Pneumonia, shortness of breath Technique: Contiguous sections were acquired throughout the chest without intravenous contrast. Dose reduction technique was used on this scan by utilizing automated exposure control and iterative recon struction technique. The dose-length product (DLP) was 192.08 mGy-cm. COMPARISON: 01/30/2024 Findings: There is no evidence of any significant mediastinal, hilar or axillary lymphadenopathy. There are ext ensive atherosclerotic calcifications of the aorta and coronary arteries. There is no evidence of pleural or pericardial effusion. Probable moderate emphysema versus respiratory motion artifact. Probable scarring or atelectasis at t he lingula, unchanged. Images through the upper abdomen reveal no abnormalities. Impression: No acute abnormality seen. Stable scarring or atelectasis at the lingula. Suspected moderate emphysema versus respiratory motion artifact. Reviewed, dictated and finalized at [facility]. ER CLEANER Impression: No acute abnormality seen. Stable scarring or atelectasis at the lingula. Suspected moderate emphysema versus respiratory motion artifact.
--- NOTE | ~2024-03-12 | XR_ITS ---
Portable chest x-ray Comparison: 01/29/2024 Clinical History: Shortness of breath Findings: There is probable central pulmonary venous congestive change and minimal interstitial collin a. Focal linear atelectasis or scarring left midlung. Cardiomediastinal silhouette is stable. Bones and soft tissues are unremarkable. Impression: Probable central congestive change and minimal interstitial edema. Focal linear scarring or atelectasis left midlung. Reviewed, dictated and finalized at location . [employer] Impression: Probable central congestive change and minimal interstitial edema. Focal linear scarring or atelectasis left midlung.
--- NOTE | 2024-03-12 05:15 | PC.NURSE ---
RT WAS CALLED IN FOR BIPAP
--- OUTSIDE RECORDS SUMMARY | 2024-03-12 05:15 | XMS_ITS | Referral Summary ---
Author Organization [facility] Address [address] [place] [address] Care Team Providers Care Fruit Packer Name Role Phone Unavailable Primary Care Provider Unavailabl e Source Comments [facility],non-owned Affiliates and Associated Physician Practices is amultiple site organization consisting of ambulatory clinics and hospital sitesin [place], [place], [place] and [place]. This disclosure is being madepursuant to the Care Everywhere program and may not contain all information available regarding this patient. Last updated 17.[facility] Encounters Date Type Department Care Team Description 01/30/2024 6:13 AM BINDERY LIBRARY TECHNICAL ASSISTANT - 02/05/2024 2:09 PM [facility] Hospital Encounter [facility] [address] [id number] Aura Lancaster MD Vissa, Sriram, MD Kaswan, Nitika, MD Zhu, He, MD Hospitalist Discharge Disposition: Home or Self Care 01/30/2024 Travel from Last 3 Months Allergies No known active allergies Medications * Be aware that medications may not be up to date on this document. Alwaysverify current medications with the patient. Medication Sig Dispensed Refills Start Date End Date Status montelukast (Singulair) 10 MG tablet Take 1 (one) tablet by mouth at bedtime Active insulin glargine (Lantus/Semglee) 100 units/mL pen Inject 14 (fourteen) Units subcutaneously at bedtime Active lovastatin (Mevacor) 20 MG tablet Take 1 (one) tablet by mouth at bedtime Active omeprazole (PriLOSEC) 40 MG capsule Take 1 (one) capsule by mouth daily before breakfast Active aspirin EC (Ecotrin) 81 MG tablet Take 1 (one) tablet by mouth once daily Active escitalopram (Lexapro) 20 MG tablet Take 1 (one) tablet by mouth once daily Active losartan (Cozaar) 100 MG tablet Take 1 (one) tablet by mouth once daily Active furosemide (Lasix) 40 MG tablet Take 1 (one) tablet by mouth 2 times daily Active Ensifentrine 3 MG/2.5ML SUSP Inhale 2.5 mL by mouth 2 times daily Active Oxygen Oxygen continuous at 5 L/min via nasal cannula - Estimate length of need (number of months): Lifetime 1 Each 02/05/2024 Active budesonide-formo terol (Symbicort) 160-4.5 MCG/ACT inhaler Inhale 2 (two) puffs by mouth 2 times daily for 60 days 10.2 g 1 02/05/2024 04/05/2024 Active albuterol-ipratr opium (Duo-Neb) 0.5-2.5 (3) MG/3ML nebulizer solution Inhale 3 mL (1 vial) by mouth using nebulizer every 6 hours for 90 days 360 mL 2 02/05/2024 05/05/2024 Active NIFEdipine CR 24hr (Adalat CC) 60 MG tablet Take 1 (one) tablet by mouth once daily for 60 days 30 tablet 1 02/06/2024 04/06/2024 Active senna-docusate (Senokot-S) 8.6-50 MG tablet Take 1 (one) tablet by mouth 2 times daily for 60 days 60 tablet 1 02/05/2024 04/05/2024 Active predniSONE (Deltasone) 10 MG tablet Take 4 (four) tablets by mouth once daily for 4 days, THEN 3 (three) tablets once daily for 2 days, THEN 2 (two) tablets once daily for 2 days, THEN 1 (one) tablet once daily for 2 days. 28 tablet 02/05/2024 02/15/2024 guaiFENesin ER 12hr (Mucinex) 600 MG tablet Take 1 (one) tablet by mouth every 12 hours for 14 days 28 tablet 02/05/2024 02/19/2024 Active Problems Problem Noted Date Diagnosed Date Acute hypoxic respiratory failure 01/30/2024 Social History Tobacco Use Types Packs/Day Years Used Date Smoking Tobacco: Former Cigarettes S tarted: 02/16/2019 Smokeless Tobacco: Never Tobacco Cessation:Counseling Given: No Alcohol Use Standard Drinks/Week Comments Not Currently 0 (1 standard drink = 0.6 oz pur e alcohol) AUDIT-C Answer Date Recorded Q1: How often do you have a drink containing alcohol? Never 01/30/2024 Q2: How many drinks containi ng alcohol do you have on a typical day when you are drinking? Patient does not drink Q3: How often do you have si x or more drinks on one occasion? Never 01/30/2024 Overall Financial Resource Strain (CARDIA) Answe r Date Recorded How hard is it for you to pa y for the very basics like food, housing, medical care, and heating? Not hard at all 01/30/2024 [facility] Occup[facility] - Occupational Stress Questionnaire Answer Date Recorded Do you feel stress - tense, restless, nervous, or anxious, or unable to sleep at night because your mind is troubled all the time - these days? Not at all 01/30/2024 Hunger Vital Sign Answer Date Recorded Within the past 12 months, y ou worried that your food would run out before you got the money to buy more. Never true 01/30/20 24 Within the past 12 months, t he food you bought just didn't last and you didn't have money to get more. Never true 01/30/2024 PRAPARE - Transportation Answer Date Re corded In the past 12 months, has l ack of transportation kept you from medical appointments or from getting medications? No 01/15 In the past 12 months, has l ack of transportation kept you from meetings, work, or from getting things needed for daily living? No 01/30/2024 Housing Stability Vital Sign Answer Dave e Recorded In the last 12 months, was t here a time when you were not able to pay the mortgage or rent on time? No 01/30/2024 In the past 12 months, how m any times have you moved where you were living? 1 01/30/2024 At any time in the past 12 m [facility], were you homeless or living in a fdc (including now)? No 01/30/2024 Sex and Gender Information Value Date Recorded Sex Assigned at Not on file Gender Identity Not on file Sexual Orientation Not on file Last Filed Vital Signs Vital Sign Reading Time Taken Comments Blood Pressure 143/58 02/05/2024 12:01 PM B[employer] LIBRARY TECHNICAL ASSISTANT Pulse 79 02/05/2024 12:01 PM B[employer]ERY LIBRARY TECHNICAL ASSISTANT Temperature 36.2 ??C (97.1 ??F) 02/05/2024 8:01 AM CS T Respiratory Rate 26 02/05/2024 12:01 PM B[employer] LIBRARY TECHNICAL ASSISTANT Oxygen Saturation 94% 02/05/2024 12:01 PM B[employer]ERY LIBRARY TECHNICAL ASSISTANT Inhaled Oxygen Concentration 35% 02/01/2024 1 1:38 PM B[employer]ERY LIBRARY TECHNICAL ASSISTANT Weight 64.6 kg (142 lb 5.6 oz) 01/30/2024 5:14 P M B[employer]ERY LIBRARY TECHNICAL ASSISTANT Height 152.4 cm (5') 01/30/2024 5:14 PM B[employer]ERY LIBRARY TECHNICAL ASSISTANT Body Mass Index 27.8 01/30/2024 5:14 PM BINDERY LIBRARY TECHNICAL ASSISTANT Functional Status Functional Status Response Date of Assess ment Is person deaf or have serious hearing difficult y? Yes 01/30/2024 Is person blind or have serious difficulty seein g? No 01/30/2024 Does person have serious dif ficulty walking/climbing stairs? Yes 01/30/2024 Does person have difficulty dressing/bathing? Ye s 01/30/2024 Does person have difficulty doing errands alone? Yes 01/30/2024 Cognitive Status Response Date of Assessm ent Does person have difficulty concentrating/remembering/making decisions? No 01/30/2024 Plan of Treatment Not on file Procedures Procedure Name Priority Date/Time Associated Diagnosis Comments CARDIAC RHYTHM STRIP ORDER 02/07/2024 10:59 PM B[employer] LIBRARY TECHNICAL ASSISTANT GLUCOSE - POINT OF CARE Routine 02/05/2024 11:55 AM B[employer] LIBRARY TECHNICAL ASSISTANT XR CHEST 1VW PORTABLE Routine 02/05/2024 9:40 AM B[employer] LIBRARY TECHNICAL ASSISTANT Acute hypoxic respiratory failure (HCC) GLUCOSE - POINT OF CARE Routine 02/05/2024 8:38 AM B[employer]ERY LIBRARY TECHNICAL ASSISTANT GLUCOSE - POINT OF CARE Routine 02/05/2024 8:07 AM B[employer]ERY LIBRARY TECHNICAL ASSISTANT GLUCOSE - POINT OF CARE Routine 02/05/2024 8:02 AM BINDERY LIBRARY TECHNICAL ASSISTANT MAGNESIUM BLOOD AM Draw 02/05/2024 5:32 AM B[employer]ERY LIBRARY TECHNICAL ASSISTANT RENAL FUNCTION PANEL AM Draw 02/05/2024 5:32 AM BINDERY LIBRARY TECHNICAL ASSISTANT CBC W AUTO DIFFERENTIAL AM Draw 02/05/2024 5:32 AM BINDERY LIBRARY TECHNICAL ASSISTANT GLUCOSE - POINT OF CARE Routine 02/04/2024 8:35 PM B[employer]ERY LIBRARY TECHNICAL ASSISTANT GLUCOSE - POINT OF CARE Routine 02/04/2024 5:07 PM B[employer]ERY LIBRARY TECHNICAL ASSISTANT GLUCOSE - POINT OF CARE Routine 02/04/2024 12:05 PM B[employer]ERY LIBRARY TECHNICAL ASSISTANT GLUCOSE - POINT OF CARE Routine 02/04/2024 8:36 AM BINDERY LIBRARY TECHNICAL ASSISTANT GLUCOSE - POINT OF CARE Routine 02/04/2024 8:05 AM B[employer]ERY LIBRARY TECHNICAL ASSISTANT MAGNESIUM BLOOD AM Draw 02/04/2024 1:41 AM B[employer]ERY LIBRARY TECHNICAL ASSISTANT RENAL FUNCTION PANEL AM Draw 02/04/2024 1:41 AM BINDERY LIBRARY TECHNICAL ASSISTANT CBC W AUTO DIFFERENTIAL AM Draw 02/04/2024 1:41 AM B[employer]ERY LIBRARY TECHNICAL ASSISTANT GLUCOSE - POINT OF CARE Routine 02/03/2024 8:21 PM B[employer]ERY LIBRARY TECHNICAL ASSISTANT GLUCOSE - POINT OF CARE Routine 02/03/2024 5:40 PM B[employer]ERY LIBRARY TECHNICAL ASSISTANT GLUCOSE - POINT OF CARE Routine 02/03/2024 12:10 PM B[employer]ERY LIBRARY TECHNICAL ASSISTANT BASIC METABOLIC PANEL (CALCIUM TOTAL) AM Draw 02/03/2024 11:01 AM B[employer]ERY LIBRARY TECHNICAL ASSISTANT GLUCOSE - POINT OF CARE Routine 02/03/2024 8:42 AM B[employer]ERY LIBRARY TECHNICAL ASSISTANT VANCOMYCIN LEVEL RANDOM Timed 02/02/2024 9:29 PM B[employer]ERY LIBRARY TECHNICAL ASSISTANT GLUCOSE - POINT OF CARE Routine 02/02/2024 8:47 PM B[employer]ERY LIBRARY TECHNICAL ASSISTANT GLUCOSE - POINT OF CARE Routine 02/02/2024 5:45 PM B[employer]ERY LIBRARY TECHNICAL ASSISTANT ECHO COMPLETE Routine 02/02/2024 1:00 PM B[employer]ERY LIBRARY TECHNICAL ASSISTANT Acute hypoxic respiratory failure (HCC) BASIC METABOLIC PANEL (CALCIUM TOTAL) AM Draw 02/02/2024 11:37 AM B[employer]ERY LIBRARY TECHNICAL ASSISTANT GLUCOSE - POINT OF CARE Routine 02/02/2024 11:33 AM B[employer]ERY LIBRARY TECHNICAL ASSISTANT XR CHEST 1VW PORTABLE Routine 02/02/2024 8:46 AM B[employer]ERY LIBRARY TECHNICAL ASSISTANT Acute hypoxic respiratory failure (HCC) GLUCOSE - POINT OF CARE Routine 02/02/2024 7:49 AM B[employer]ERY LIBRARY TECHNICAL ASSISTANT GLUCOSE - POINT OF CARE Routine 02/01/2024 8:33 PM B[employer]ERY LIBRARY TECHNICAL ASSISTANT VANCOMYCIN LEVEL RANDOM Routine 02/01/2024 6:17 PM B[employer]ERY LIBRARY TECHNICAL ASSISTANT GLUCOSE - POINT OF CARE Routine 02/01/2024 5:07 PM B[employer]ERY LIBRARY TECHNICAL ASSISTANT GLUCOSE - POINT OF CARE Routine 02/01/2024 11:46 AM B[employer]ERY LIBRARY TECHNICAL ASSISTANT CULTURE BLOOD Timed 02/01/2024 11:16 AM B[employer]ERY LIBRARY TECHNICAL ASSISTANT CULTURE BLOOD Timed 02/01/2024 11:12 AM BINDERY LIBRARY TECHNICAL ASSISTANT GLUCOSE - POINT OF CARE Routine 02/01/2024 8:02 AM B[employer]ERY LIBRARY TECHNICAL ASSISTANT RENAL FUNCTION PANEL AM Draw 02/01/2024 4:26 AM BINDERY LIBRARY TECHNICAL ASSISTANT GLUCOSE - POINT OF CARE Routine 01/31/2024 11:23 PM BINDERY LIBRARY TECHNICAL ASSISTANT GLUCOSE - POINT OF CARE Routine 01/31/2024 10:52 PM BINDERY LIBRARY TECHNICAL ASSISTANT GLUCOSE - POINT OF CARE Routine 01/31/2024 8:41 PM BINDERY LIBRARY TECHNICAL ASSISTANT GLUCOSE - POINT OF CARE Routine 01/31/2024 6:14 PM B[employer]ERY LIBRARY TECHNICAL ASSISTANT GLUCOSE - POINT OF CARE Routine 01/31/2024 3:17 PM BINDERY LIBRARY TECHNICAL ASSISTANT GLUCOSE - POINT OF CARE Routine 01/31/2024 12:14 PM BINDERY LIBRARY TECHNICAL ASSISTANT GLUCOSE - POINT OF CARE Routine 01/31/2024 9:48 AM BINDERY LIBRARY TECHNICAL ASSISTANT GLUCOSE - POINT OF CARE Routine 01/31/2024 8:13 AM BINDERY LIBRARY TECHNICAL ASSISTANT BASIC METABOLIC PANEL (CALCIUM TOTAL) AM Draw 01/31/2024 5:09 AM BINDERY LIBRARY TECHNICAL ASSISTANT PROCALCITONIN LEVEL AM Draw 01/31/2024 5 :09 AM BINDERY LIBRARY TECHNICAL ASSISTANT CBC W/O DIFFERENTIAL AM Draw 01/31/2024 5:09 AM BINDERY LIBRARY TECHNICAL ASSISTANT HEMOGLOBIN A1C Routine 01/31/2024 5:09 AM BINDERY LIBRARY TECHNICAL ASSISTANT B-TYPE NATRIURETIC PEPTIDE Routine 01/31/2024 5:09 AM BINDERY LIBRARY TECHNICAL ASSISTANT RESPIRATORY PANEL WITH SARS-COV-2 BY PCR (STL) Routine 01/31/2024 12:07 AM BINDERY LIBRARY TECHNICAL ASSISTANT GLUCOSE - POINT OF CARE Routine 01/30/2024 10:09 PM BINDERY LIBRARY TECHNICAL ASSISTANT GLUCOSE - POINT OF CARE Routine 01/30/2024 8:50 PM BINDERY LIBRARY TECHNICAL ASSISTANT GLUCOSE - POINT OF CARE Routine 01/30/2024 5:36 PM BINDERY LIBRARY TECHNICAL ASSISTANT GLUCOSE - POINT OF CARE Routine 01/30/2024 2:19 PM BINDERY LIBRARY TECHNICAL ASSISTANT GLUCOSE - POINT OF CARE Routine 01/30/2024 12:54 PM BINDERY LIBRARY TECHNICAL ASSISTANT GLUCOSE - POINT OF CARE Routine 01/30/2024 9:17 AM BINDERY LIBRARY TECHNICAL ASSISTANT BLOOD GASES ARTERIAL Routine 01/30/2024 8:43 AM BINDERY LIBRARY TECHNICAL ASSISTANT XR CHEST 1VW PORTABLE Routine 01/30/2024 8:30 AM B[employer]ERY LIBRARY TECHNICAL ASSISTANT Acute hypoxic respiratory failure (HCC) CBC W/O DIFFERENTIAL STAT 01/30/2024 6:38 AM B[employer]ERY LIBRARY TECHNICAL ASSISTANT COMPREHENSIVE METABOLIC PANEL STAT 01/30/2024 6:38 AM BINDERY LIBRARY TECHNICAL ASSISTANT from Last 3 Months Results * CARDIAC RHYTHM STRIP ORDER (02/07/2024 10:59 PM BINDERY LIBRARY TECHNICAL ASSISTANT) Narrative 02/07/2024 10:59 PM B[employer]ERY LIBRARY TECHNICAL ASSISTANT Ordered by an unspecified provider. Scanned Document CARDIAC SERVICES ORD ERABLES * (ABNORMAL) GLUCOSE - POINT OF CARE (02/05/2024 11:55 AM B[employer]ERY LIBRARY TECHNICAL ASSISTANT) Only the most recent of35 resultswithin the time period is included. Glucose WB/POC 181(H) 70 - 99 mg/dL 02/05/2024 12:42 PM BINDERY LIBRARY TECHNICAL ASSISTANT [facility] Specimen Type Cap Fingerstick 2023 12:42 PM BINDERY LIBRARY TECHNICAL ASSISTANT [facility] Blood BLOOD SPECIMEN / Unknown 02/05/2024 11:55 AM BINDERY LIBRARY TECHNICAL ASSISTANT 02/05/2024 12:42 PM BINDERY LIBRARY TECHNICAL ASSISTANT Boogie Stephens MD LAB - POINT OF CARE ORDERABLES [facility] [address] [place] [address] * XR Chest 1Vw Portable (02/05/2024 9:40 AM BINDERY LIBRARY TECHNICAL ASSISTANT) Only the most recent of3 resultswithin the time period is included. Anatomical Region Laterality Modality Chest Computed Radiogr aphy 02/05/2024 10:0 6 AM B[employer]ERY LIBRARY TECHNICAL ASSISTANT Narrative 02/05/2024 10:06 AM BINDERY LIBRARY TECHNICAL ASSISTANT PROCEDURE(s): XR CHEST 1VW PORTABLE DATE AND TIME OF EXAM(s): 02/05/2024 9:57 AM INDICATION(s): J96.01: Acute respiratory failure with hypoxia (HCC). COMPARISON(s): Chest radiograph dated 02/02/2024. FINDINGS: There is mild cardiomegaly. Subtly increased attenuation at the left lung base may represent atelectasis but infiltrate must be considered. This appearance is slightly improved compared to the prior study from 02/02/2024. No pneumothorax or pleural effusion is seen. No acute osseous abnormalities are seen. > Interpreting Provider: Ricardo Hill MD on 02/05/2024 10:06 AM Procedure Note Ricardo Hill MD - 02/05/2024 PROCEDURE(s): XR CHEST 1VW PORTABLE DATE AND TIME OF EXAM(s): 02/05/2024 9:57 AM INDICATION(s): J96.01: Acute respiratory failure with hypoxia (HCC). COMPARISON(s): Chest radiograph dated 02/02/2024. FINDINGS: There is mild cardiomegaly. Subtly increased attenuation atthe left lung base may represent atelectasis but infiltrate must beconsidered. This appearance is slightly improved compared to the prior study from 02/02/2024. No pneumothorax or pleural effusion is seen. No acuteosseous abnormalities are seen. > Interpreting Provider: Ricardo Hill MD on 02/05/2024 10:06 AM Boogie Stephens MD DIAGNOSTIC IMAGING O RDERABLES * (ABNORMAL) CBC W AUTO DIFFERENTIAL (02/05/2024 5:32 AM B[employer] LIBRARY TECHNICAL ASSISTANT) Only the most recent of2 resultswithin the time period is included. WBC 12.5(H) 4.0 - 10.7 x10E9/L 02/05/2024 5:54 AM BINDERY LIBRARY TECHNICAL ASSISTANT [facility] RBC Count 4.33 3.90 - 5.20 x10E12/L 02/05/2024 5:54 AM BINDERY LIBRARY TECHNICAL ASSISTANT [facility] Hemoglobin 12.0 11.9 - 15.8 g/dL 02/05/2024 5:54 AM BINDERY LIBRARY TECHNICAL ASSISTANT [facility] Hematocrit 39.6 34.8 - 46.1 % 02/05/2024 5:54 AM BINDERY LIBRARY TECHNICAL ASSISTANT [facility] MCV 91.5 80.0 - 98.0 fL 02/05/2024 5:54 AM BINDERY LIBRARY TECHNICAL ASSISTANT [facility] MCH 27.7 26.7 - 33.6 pg 02/05/2024 5:54 AM [facility] MCHC 30.3(L) 31.7 - 36.3 g/dL 02/05/2024 5:54 AM [facility] RDW-CV 15.8(H) 11.3 - 14.8 % 02/05/2024 5:54 AM [facility] Platelet Count 305 150 - 420 x10E9/L 02/05/2024 5:54 AM [facility] MPV 10.6 7.8 - 11.4 fL 02/05/2024 5:54 AM [facility] Neutrophil % 65.7 41.0 - 74.0 % 02/05/2024 5:54 AM [facility] Lymphocyte % 20.8 17.0 - 47.0 % 02/05/2024 5:54 AM [facility] Monocyte % 7.3 3.0 - 11.0 % 02/05/2024 5:54 AM [facility] Eosinophil % 1.8 0.0 - 7.0 % 02/05/2024 5:54 AM [facility] Basophil % 0.6 0.0 - 1.6 % 02/05/2024 5:54 AM [facility] Immature Granulocytes % 3.8(H) 0.0 - 1.0 % 02/05/2024 5:54 AM [facility] Neutrophil Absolute 8.24(H) 1.60 - 7.50 x10E9/L 02/05/2024 5:54 AM [facility] Lymphocyte Absolute 2.61 1.00 - 4.40 x10E9/L 02/05/2024 5:54 AM [facility] Monocyte Absolute 0.91 0.15 - 1.00 x10E9/L 02/05/2024 5:54 AM [facility] Eosinophil Absolute 0.22 0.00 - 0.60 x10E9/L 02/05/2024 5:54 AM [facility] Basophil Absolute 0.07 0.00 - 0.13 x10E9/L 02/05/2024 5:54 AM [facility] NRBC 0.3(H) <=0.0 /100 WBC 02/05/2024 5:54 AM [facility] Blood BLOOD SPECIMEN / Unknown Venipuncture / Unknown 02/05/2024 5:32 AM B[employer] LIBRARY TECHNICAL ASSISTANT 02/05/2024 5:40 AM B[employer]ERY LIBRARY TECHNICAL ASSISTANT Boogie Stephens MD LAB - HEMATOLOGY ORD ERABLES [facility] [address] [place] [address] * (ABNORMAL) RENAL FUNCTION PANEL (02/05/2024 5:32 AM B[employer]ERY LIBRARY TECHNICAL ASSISTANT) Only the most recent of3 resultswithin the time period is included. Glucose 55(L) 70 - 99 mg/dL 02/05/2024 5:57 AM [facility] Sodium 144 136 - 145 mmol/L 02/05/2024 5:57 AM [facility] Potassium 5.0 3.5 - 5.1 mmol/L 02/05/2024 5:57 AM [facility] Comment:Specimen Moderately Hemolyzed Chloride 105 98 - 107 mmol/L 02/05/2024 5:57 AM [facility] CO2 30(H) 22 - 29 mmol/L 02/05/2024 5:57 AM [facility] Calcium 8.8 8.4 - 10.4 mg/dL 02/05/2024 5:57 AM [facility] Anion Gap 9 6 - 16 mmol/L 02/05/2024 5:57 AM [facility] BUN 51(H) 7 - 26 mg/dL 02/05/2024 5:57 AM [facility] Creatinine 1.48(H) 0.57 - 1.11 mg/dL 02/05/2024 5:57 AM [facility] Albumin 2.6(L) 3.4 - 5.0 gm/dL 02/05/2024 5:57 AM [facility] Phosphorus 4.4 2.5 - 4.5 mg/dL 02/05/2024 5:57 AM [facility] eGFR by CKD-EPI 35(L) >=90 mL/min/1.7 3 m2 02/05/2024 5:57 AM [facility] Blood BLOOD SPECIMEN / Unknown Venipuncture / Unknown 02/05/2024 5:32 AM B[employer] LIBRARY TECHNICAL ASSISTANT 02/05/2024 5:40 AM B[employer]ERY LIBRARY TECHNICAL ASSISTANT Boogie Stephens MD LAB - CHEMISTRY ORDFortunato GAYLE Performing Organization Address [facility] Co de Phone Number [facility] [address] [place], [place] [id number] * MAGNESIUM BLOOD (02/05/2024 5:32 AM B[employer]ERY LIBRARY TECHNICAL ASSISTANT) Only the most recent of2 resultswithin the time period is included. Magnesium 2.3 1.6 - 2.6 mg/dL 02/05/2024 5:56 AM [facility] Blood BLOOD SPECIMEN / Unknown Venipuncture / Unknown 02/05/2024 5:32 AM BINDERY LIBRARY TECHNICAL ASSISTANT 02/05/2024 5:40 AM B[employer]ERY LIBRARY TECHNICAL ASSISTANT Boogie Stephnes MD LAB - CHEMISTRY ANGEL GAYLE Performing Organization Address [facility] de Phone Number [facility] [address] [place] [address] * (ABNORMAL) BASIC METABOLIC PANEL (CALCIUM TOTAL) (02/03/2024 11:01 AM B[employer]ERY LIBRARY TECHNICAL ASSISTANT) Only the most recent of3 resultswithin the time period is included. Glucose 203(H) 70 - 99 mg/dL 02/03/2024 11:32 AM [facility] Sodium 146(H) 136 - 145 mmol/L 02/03/2024 11:32 AM [facility] Potassium 4.1 3.5 - 5.1 mmol/L 02/03/2024 11:32 AM [facility] Chloride 101 98 - 107 mmol/L 02/03/2024 11:32 AM [facility] CO2 31(H) 22 - 29 mmol/L 02/03/2024 11:32 AM [facility] Calcium 9.7 8.4 - 10.4 mg/dL 02/03/2024 11:32 AM [facility] Anion Gap 14 6 - 16 mmol/L 02/03/2024 11:32 AM [facility] BUN 43(H) 7 - 26 mg/dL 02/03/2024 11:32 AM [facility] Creatinine 1.43(H) 0.57 - 1.11 mg/dL 02/03/2024 11:32 AM BINDERY LIBRARY TECHNICAL ASSISTANT [facility] eGFR by CKD-EPI 37(L) >=90 mL/min/1.7 3 m2 02/03/2024 11:32 AM BINDERY LIBRARY TECHNICAL ASSISTANT [facility] Blood BLOOD SPECIMEN / Unknown Venipuncture / Unknown 02/03/2024 11:01 AM B[employer]ERY LIBRARY TECHNICAL ASSISTANT 02/03/2024 11:15 AM B[employer]ERY LIBRARY TECHNICAL ASSISTANT Boogie Stephens MD LAB - CHEMISTRY ANGEL GAYLE Performing Organization Address [facility] de Phone Number [facility] [address] [place] [address] * VANCOMYCIN LEVEL RANDOM (02/02/2024 9:29 PM B[employer]ERY LIBRARY TECHNICAL ASSISTANT) Only the most recent of2 resultswithin the time period is included. Pathologist [facility] Vancomycin Random 14.8 <=40.0 ug/mL 02/02/2024 9:52 PM BINDERY LIBRARY TECHNICAL ASSISTANT [facility] Blood BLOOD SPECIMEN / Unknown Venipuncture / Unknown 02/02/2024 9:29 PM BINDERY LIBRARY TECHNICAL ASSISTANT 02/02/2024 9:36 PM BINDERY LIBRARY TECHNICAL ASSISTANT Narrative [facility] - 02/02/2024 9:52 PM BINDERY LIBRARY TECHNICAL ASSISTANT No reference range available for random Vancomycin levels. All results interpreted by ordering physician. Boogie Stephens MD LAB - CHEMISTRY ANGEL GAYLE Performing Organization Address [facility] de Phone Number [facility] [address] [place] [address] * ECHO COMPLETE (02/02/2024 1:00 PM BINDERY LIBRARY TECHNICAL ASSISTANT) LA vol index 0.026 l/m? ? ? [facility] PACS Myocardial strain charge 2 unitless [facility] PACS IVSd 2D 1.25 cm [facility] PACS LVIDd 4.157 cm [facility] PACS LVOT diam 1.937 cm [facility] PACS LVPWd 1.249 cm [facility] I PACS LVOT pk [place] 112.204 cm/s [facility] F UJI PACS LVOT VTI 23.597 cm [facility] FUJ I PACS LA size 3.921 cm [facility] FUJ I PACS LA vol BP 43.811 ml SSM CV FUJ I PACS AV mn grad 6.033 mmHg SSM CV FU JI PACS AV pk delmar 163.139 cm/s SSM CV FUJ I PACS AV VTI 31.604 cm SSM CV FUJ I PACS MV A pk delmar 113.264 cm/s SSM CV F UJI PACS MV E pk delmar 86.422 cm/s SSM CV F UJI PACS MV E' lateral delmar 8.745 cm/s SSM CV FUJI PACS MV mn grad 3.302 mmHg SSM CV FU JI PACS MV VTI 24.491 cm SSM CV FUJ I PACS PV pk delmar 132.543 cm/s SSM CV FUJ I PACS TAPSE 2.175 cm SSM CV FUJ I PACS TR pk delmar 294.495 cm/s SSM CV FUJ I PACS Anatomical Region Laterality Modality Ultrasound 02/02/2024 9:42 AM [employer] TECHNICAL ASSISTANT Narrative 02/03/2024 9:14 AM [employer] TECHNICAL ASSISTANT Summary ??* The left ventricle is normal in size. ??* Left ventricular systolic function is normal with an estimated ejection fraction of 55-60% by visual estimate. ??* Left ventricular segmental wall motion is normal. ??* The left ventricular mass is mildly increased with concentric hypertrophy. ??* The left ventricular diastolic function is consistent with grade I diastolic dysfunction and normal left atrial ??filling pressure. ??* The right ventricle is normal in size. ??* Right ventricular systolic function is normal. ??* The left atrium is normal in size with a left atrial volume index of 26 ml/m2 by BP MOD. ??* The right atrium is normal in size. ??* There is mild mitral valve regurgitation. ??* There is mild tricuspid valve regurgitation. ??* The pulmonary artery systolic pressure is borderline elevated, 38 mmHg. Patient Info Name: ? Nikki ?? Chad Age: ? 83 years : ? 1940 Gender: ? Female Accession #: ? [id number] Ht: ? 60 in Wt: ? 142 lb BSA: ? 1.67 m2 HR: ? 95 bpm BP: ? 180 / ? 80 mmHg Exam Date: ? 02/02/2024 9:42 AM Patient Status: ? I/P Study Site: ? [facility] Primary Location: ? [facility] EStudy Info Exam Type: ? ECHO COMPLETE Indications ?J96.01 - Acute hypoxic respiratory failure (HCC) Procedure(s) ??* A complete 2D, color Doppler, spectral Doppler, and M-Mode transthoracic echocardiogram was performed. Staff Referring Physician: ? Kb Freire Ordering Provider: ? Kb Freire Attending Physician: ? Kb Freire Property And Equipment Clerk: ? Arpita Dozier Left Ventricle ??The left ventricle is normal in size. Left ventricular systolic function is normal with an estimated ejection fraction of 55-60% by visual estimate. Left ventricular segmental wall motion is normal. The left ventricular mass is mildly increased with concentric hypertrophy. The left ventricular diastolic function is consistent with grade I diastolic dysfunction and normal left atrial ??filling pressure. Right Ventricle ??The right ventricle is normal in size. Right ventricular systolic function is normal. Left Atrium ??The left atrium is normal in size with a left atrial volume index of 26 ml/m2 by BP MOD. Right Atrium ??The right atrium is normal in size. Atrial Septum ??Intact interatrial septum visualized by 2D and color Doppler imaging. Aortic Valve ??The aortic valve is trileaflet. There is no aortic valve stenosis. There is no aortic valve regurgitation. Pulmonic Valve ??The pulmonic valve is normal. There is no pulmonic valve stenosis. There is no pulmonic regurgitation. Mitral Valve ??The mitral valve is normal. There is no mitral valve stenosis. There is mild mitral valve regurgitation. Tricuspid Valve ??The tricuspid valve is normal. There is mild tricuspid valve regurgitation. The pulmonary artery systolic pressure is borderline elevated, 38 mmHg. Inferior Vena Cava ??The inferior vena cava is normal in size (< 2.1 cm). There is > 50% collapse of the IVC upon inspiration with an estimated right atrial pressure of 3 mmHg. Pericardium/Pleural ??There is no pericardial effusion. Aorta ??The aortic root at the sinus of Valsalva is normal in size. The ascending aorta is normal in size. Measurements Left Ventricular Outflow Tract Name ? Value ?Normal LVOT 2D LVOT Diameter ? 1.9 cm ? LVOT Area ?2.9 cm2 ? LVOT Doppler LVOT Peak Velocity ? 1.1 m/s ? LVOT Peak Gradient ?5 mmHg ? LVOT Mean Velocity ?81.85 cm/s ? LVOT Mean Gradient ?3 mmHg ? LVOT VTI ? 23.6 cm ? LVOT VTI/AV VTI Ratio ?0.7 ? LVOT Stroke Volume ? 69 ml ? LVOT Stroke Volume Index ?42 ml/m2 ? 35-58 LVOT CO ?6.6 l/min ? LVOT CI ? 4.0 l/min/m2 Pulmonic Valve Name ? Value ?Normal PV Doppler PV Peak Velocity ? 1.3 m/s ? PV Peak Gradient ?7 mmHg Mitral Valve Name ? Value ?Normal MV Doppler MV Peak Gradient ?8 mmHg ? MV Mean Gradient ?3 mmHg ? MV DI (VTI) ? 1.04 ? MV PHT ? 59 ms ? MV Area (PHT) ? 3.71 cm2 ? 4.00-5.00 MV Area (Cont Eq VTI) ? 2.84 cm2 ? MV Diastolic Function MV E Peak Velocity ? 0.9 m/sec ? MV A Peak Velocity ? 1.1 m/sec ? MV E/A ? 0.8 ? MV Decel Time (PW) ?205 ms ? MV Annular TDI MV Septal e' Velocity ? 4 cm/s ? >=8 MV E/e' (Septal) ?20 ? <=8 MV Lateral e' Velocity ?9 cm/s ?>=10 MV E/e' (Lateral) ? 10 ? <=8 MV e' Average ? 7 cm/s ? MV E/e' (Average) ? 15 Tricuspid Valve Name ? Value ?Normal TV Regurgitation Doppler TR Peak Velocity ? 2.9 m/s ? TR Peak Gradient ? 35 mmHg ? Estimated PAP/RSVP RA Pressure ? 3 mmHg ? <=5 PA Systolic Pressure ? 38 mmHg ? <35 RV Systolic Pressure ? 38 mmHg ? <36 TV Annular TDI TV Lateral Bonnie s' Velocity ? 16 cm/s ? 10-19 Aorta Name ? Value ?Normal Ascending Aorta Ao Root Diameter (MM) ? 2.7 cm ? Ao Root Diam Index (MM) ?1.6 cm/m2 Aortic Valve Name ? Value ?Normal AV 2D/MM AV Cusp Sep (MM) ?1.6 cm ? AV Doppler AV Peak Velocity ?1.63 m/s ? AV Peak Gradient ? 11 mmHg ? AV Mean Gradient ?6 mmHg ? AV VTI ? 32 cm ? AV Area (Cont Eq VTI) ? 2.20 cm2 ?>=2.00 AV Area (Cont Eq Delmar) ? 2.03 cm2 ? AV DI (VTI) ? 0.75 ? AV DI (Delmar) ? 0.69 ? AV Regurgitation 2D LVOT Area ? 2.94 cm2 Ventricles Name ? Value ?Normal LV Dimensions 2D/MM IVS Diastolic Thickness (2D) ?1.2 cm ? 0.6-0.9 LVID Diastole (2D) ?4.2 cm ? 3.8-5.2 LVPW Diastolic Thickness (2D) ?1.2 cm ? 0.6-0.9 LV Mass (2D Cubed) ? 186 g ?67-162 LV Mass Index (2D Cubed) ?111 g/m2 ? 43-95 Relative Wall Thickness (2D) ?0.60 ?<=0.42 RV Dimensions 2D/MM TAPSE ? 2.2 cm ? >=1.7 Atria Name ? Value ?Normal LA Dimensions LA Dimension (2D) ? 3.9 cm ? 2.7-3.8 LA Dimen Index (2D) ?2.3 cm/m2 ? LA Dimension (MM) ? 4.1 cm ? 2.7-3.8 LA Volume (BP MOD) ? 44 ml ? LA Volume Index (BP MOD) ?26 ml/m2 ? 1634 Report Signatures Finalized by Hardik ??Kenrick on 02/03/2024 09:14 AM Procedure Note Hardik Choudhary MD - 02/03/2024 Summary * The left ventricle is normal in size. * Left ventricular systolic function is normal with an estimatedejection fraction of 55-60% by visual estimate. * Left ventricular segmental wall motion is normal. * The left ventricular mass is mildly increased with concentrichypertrophy. * The left ventricular diastolic function is consistent with grade I diastolic dysfunction and normal left atrial filling pressure. * The right ventricle is normal in size. * Right ventricular systolic function is normal. * The left atrium is normal in size with a left atrial volume index of26 ml/m2 by BP MOD. * The right atrium is normal in size. * There is mild mitral valve regurgitation. * There is mild tricuspid valve regurgitation. * The pulmonary artery systolic pressure is borderline elevated, 38mmHg. Patient Info Name: Nikki Bonilla Age: 83 years : 1940 Gender: Female Ht: 60 in Wt: 142 lb BSA: 1.67 m2 HR: 95 bpm BP: 180 / 80 mmHg Exam Date: 02/02/2024 9:42 AM Patient Status: I/P Study Site: [facility] Primary Location: [facility] EStudy Info Exam Type: ECHO COMPLETE Indications J96.01 - Acute hypoxic respiratory failure (HCC) Procedure(s) * A complete 2D, color Doppler, spectral Doppler, and M-Modetransthoracic echocardiogram was performed. Staff Referring Physician: Kb Freire Ordering Provider: Kb Freire Attending Physician: Kb Freire Property And Equipment Clerk: Arpita Patrick Dozier Left Ventricle The left ventricle is normal in size. Left ventricular systolic functionis normal with an estimated ejection fraction of 55-60% by visual estimate.Left ventricular segmental wall motion is normal. The left ventricular massis mildly increased with concentric hypertrophy. The left ventriculardiastolic function is consistent with grade I diastolic dysfunction and normalleft atrial filling pressure. Right Ventricle The right ventricle is normal in size. Right ventricular systolicfunction is normal. Left Atrium The left atrium is normal in size with a left atrial volume index of26 ml/m2 by BP MOD. Right Atrium The right atrium is normal in size. Atrial Septum Intact interatrial septum visualized by 2D and color Doppler imaging. Aortic Valve The aortic valve is trileaflet. There is no aortic valve stenosis. Thereis no aortic valve regurgitation. Pulmonic Valve The pulmonic valve is normal. There is no pulmonic valve stenosis. Thereis no pulmonic regurgitation. Mitral Valve The mitral valve is normal. There is no mitral valve stenosis. There ismild mitral valve regurgitation. Tricuspid Valve The tricuspid valve is normal. There is mild tricuspid valveregurgitation. The pulmonary artery systolic pressure is borderline elevated, 38 mmHg. Inferior Vena Cava The inferior vena cava is normal in size (< 2.1 cm). There is > 50%collapse of the IVC upon inspiration with an estimated right atrial pressure of 3mmHg. Pericardium/Pleural There is no pericardial effusion. Aorta The aortic root at the sinus of Valsalva is normal in size. Theascending aorta is normal in size. Measurements Left Ventricular Outflow Tract Name Value Normal LVOT 2D LVOT Diameter 1.9 cm LVOT Area 2.9 cm2 LVOT Doppler LVOT Peak Velocity 1.1 m/s LVOT Peak Gradient 5 mmHg LVOT Mean Velocity 81.85 cm/s LVOT Mean Gradient 3 mmHg LVOT VTI 23.6 cm LVOT VTI/AV VTI Ratio 0.7 LVOT Stroke Volume 69 ml LVOT Stroke Volume Index 42 ml/m2 35-58 LVOT CO 6.6 l/min LVOT CI 4.0 l/min/m2 Pulmonic Valve Name Value Normal PV Doppler PV Peak Velocity 1.3 m/s PV Peak Gradient 7 mmHg Mitral Valve Name Value Normal MV Doppler MV Peak Gradient 8 mmHg MV Mean Gradient 3 mmHg MV DI (VTI) 1.04 MV PHT 59 ms MV Area (PHT) 3.71 cm2 4.00-5.00 MV Area (Cont Eq VTI) 2.84 cm2 MV Diastolic Function MV E Peak Velocity 0.9 m/sec MV A Peak Velocity 1.1 m/sec MV E/A 0.8 MV Decel Time (PW) 205 ms MV Annular TDI MV Septal e' Velocity 4 cm/s >=8 MV E/e' (Septal) 20 <=8 MV Lateral e' Velocity 9 cm/s >=10 MV E/e' (Lateral) 10 <=8 MV e' Average 7 cm/s MV E/e' (Average) 15 Tricuspid Valve Name Value Normal TV Regurgitation Doppler TR Peak Velocity 2.9 m/s TR Peak Gradient 35 mmHg Estimated PAP/RSVP RA Pressure 3 mmHg <=5 PA Systolic Pressure 38 mmHg <35 RV Systolic Pressure 38 mmHg <36 TV Annular TDI TV Lateral Bonnie s' Velocity 16 cm/s 10-19 Aorta Name Value Normal Ascending Aorta Ao Root Diameter (MM) 2.7 cm Ao Root Diam Index (MM) 1.6 cm/m2 Aortic Valve Name Value Normal AV 2D/MM AV Cusp Sep (MM) 1.6 cm AV Doppler AV Peak Velocity 1.63 m/s AV Peak Gradient 11 mmHg AV Mean Gradient 6 mmHg AV VTI 32 cm AV Area (Cont Eq VTI) 2.20 cm2 >=2.00 AV Area (Cont Eq Delmar) 2.03 cm2 AV DI (VTI) 0.75 AV DI (Delmar) 0.69 AV Regurgitation 2D LVOT Area 2.94 cm2 Ventricles Name Value Normal LV Dimensions 2D/MM IVS Diastolic Thickness (2D) 1.2 cm 0.6-0.9 LVID Diastole (2D) 4.2 cm 3.8-5.2 LVPW Diastolic Thickness (2D) 1.2 cm 0.6-0.9 LV Mass (2D Cubed) 186 g 67-162 LV Mass Index (2D Cubed) 111 g/m2 43-95 Relative Wall Thickness (2D) 0.60 <=0.42 RV Dimensions 2D/MM TAPSE 2.2 cm >=1.7 Atria Name Value Normal LA Dimensions LA Dimension (2D) 3.9 cm 2.7-3.8 LA Dimen Index (2D) 2.3 cm/m2 LA Dimension (MM) 4.1 cm 2.7-3.8 LA Volume (BP MOD) 44 ml LA Volume Index (BP MOD) 26 ml/m2 Report Signatures Finalized by Hardik Choudhary on 02/03/2024 09:14 AM Kb Freire MD ECHO CUPID * CULTURE BLOOD (02/01/2024 11:16 AM BINDERY LIBRARY TECHNICAL ASSISTANT) Only the most recent of2 resultswithin the time period is included. Pathologist [facility] Culture No growth day 5 ELISABET 02/06/2024 2:31 PM BINDERY LIBRARY TECHNICAL ASSISTANT [facility] Blood PERIPHERAL BLOOD / Unknown Venipuncture / Unknown 02/01/2024 11:16 AM B[employer] LIBRARY TECHNICAL ASSISTANT 02/01/2024 11:27 AM B[employer]ERY LIBRARY TECHNICAL ASSISTANT Boogie Stephens MD LAB - MICROBIOLOGY O RDERABLES [facility] [address] [place] [address], [facility] [phone] * (ABNORMAL) PROCALCITONIN LEVEL (01/31/2024 5:09 AM BINDERY LIBRARY TECHNICAL ASSISTANT) Procalcitonin 14.84(H) <0.10 ng/mL 01/31/2024 5:59 AM BINDERY LIBRARY TECHNICAL ASSISTANT [facility] Blood BLOOD SPECIMEN / Unknown Venipuncture / Unknown 01/31/2024 5:09 AM BINDERY LIBRARY TECHNICAL ASSISTANT 01/31/2024 5:17 AM BINDERY LIBRARY TECHNICAL ASSISTANT Narrative [facility] - 01/31/2024 5:59 AM BINDERY LIBRARY TECHNICAL ASSISTANT The change in procalcitonin (PCT) concentration over time provides support in decision making on antibiotic discontinuation for suspected or confirmed septic patients. Follow-up samples should be tested once every 1-2 days based upon physician discretion taking into account the patient? s evolution and progress. Consider discontinuation of ??antibiotic therapy ??if the PCT current ??is <= 0.5 ng/mL or if the delta PCT is > 80%. ??Duration of antibiotics should not be determined solely on PCT; established guidelines for the indication should be followed. ? PCT peak: ??Highest observed PCT concentration ? PCT current: Most recent PCT concentration ? Calculate delta PCT using the following equation: ?Delta PCT ??= ?? PCT Peak ? PCT current ??X 100% ? PCT Peak The Change in Procalcitonin Calculator is available at [email or web address] ?? If clinical picture has not improved and PCT remains high, reevaluate and consider treatment failure or other causes. Kaitlin Norris MD LAB - CHEMISTRY ANGEL GAYLE [facility] [address] [place] [address] * (ABNORMAL) HEMOGLOBIN A1C (01/31/2024 5:09 AM BINDERY LIBRARY TECHNICAL ASSISTANT) [facility] Hemoglobin A1c 6.8(H) <5.7 % 01/31/2024 5:29 AM [facility] Estimated Average Glucose 148 mg/dL 01/31/2024 5:29 AM [facility] Blood BLOOD SPECIMEN / Unknown Venipuncture / Unknown 01/31/2024 5:09 AM BINDERY LIBRARY TECHNICAL ASSISTANT 01/31/2024 5:17 AM [facility] Narrative [facility] - 01/31/2024 5:29 AM [facility] HbA1c Interpretation: Normal: < 5.7% Pre-diabetes: 5.7-6.4% Diabetes: Equal to or greater than 6.5% Test results diagnostic of diabetes should be repeated for confirmation. Treatment target values recommended by ADA and other clinical organizations should be used to evaluate metabolic control in patients. This test should not replace glucose testing for patients with Type 1 diabetes, pediatric patients, or women. ??Falsely low HbA1c results may be observed in patients with clinical conditions that shorten erythrocyte life span or decrease mean erythrocyte age such as the presence of unstable hemoglobin variants, elevated hemoglobin F level or other causes of hemolytic anemia. ??HbA1c may not accurately reflect glycemic control when clinical conditions that affect erythrocyte survival are present. ??Severe Iron deficiency anemia may yield falsely high results. ??Hemoglobin A1c assay should not be used to diagnose or monitor diabetes in patients with malignancy, recent blood transfusion, chronic kidney or liver disease. ?? This method may yield falsely low results when hemoglobin (HbF) exceeds 5% in the specimen. The Almaraz Alinity assay for the measurement of HbA1c is a National Glycohemoglobin Standardization Program (NGSP) certified method. Kb Freire MD LAB - CHEMISTRY ANGEL GAYLE [facility] [address] [place] [address] * (ABNORMAL) CBC W/O DIFFERENTIAL (01/31/2024 5:09 AM [facility]) Only the most recent of2 resultswithin the time period is included. [facility] WBC 15.8(H) 4.0 - 10.7 x10E9/L 01/31/2024 5:32 AM [facility] RBC Count 3.80(L) 3.90 - 5.20 x10E12/L 01/31/2024 5:32 AM BINDERY LIBRARY TECHNICAL ASSISTANT [facility] Hemoglobin 10.5(L) 11.9 - 15.8 g/dL 01/31/2024 5:32 AM BINDERY LIBRARY TECHNICAL ASSISTANT [facility] Hematocrit 35.7 34.8 - 46.1 % 01/31/2024 5:32 AM [facility] MCV 93.9 80.0 - 98.0 fL 01/31/2024 5:32 AM [facility] MCH 27.6 26.7 - 33.6 pg 01/31/2024 5:32 AM [facility] MCHC 29.4(L) 31.7 - 36.3 g/dL 01/31/2024 5:32 AM [facility] RDW-CV 14.9(H) 11.3 - 14.8 % 01/31/2024 5:32 AM [facility] Platelet Count 304 150 - 420 x10E9/L 01/31/2024 5:32 AM [facility] MPV 10.8 7.8 - 11.4 fL 01/31/2024 5:32 AM BINDERY LIBRARY TECHNICAL ASSISTANT [facility] Blood BLOOD SPECIMEN / Unknown Venipuncture / Unknown 01/31/2024 5:09 AM B[employer]ERY LIBRARY TECHNICAL ASSISTANT 01/31/2024 5:17 AM BINDERY LIBRARY TECHNICAL ASSISTANT Kaitlin Norris MD LAB - HEMATOLOGY ORD ERABLES Performing Organization Address City/[facility]/ZIP Co de Phone Number [facility] [address] [place], [place] [id number] * (ABNORMAL) B-TYPE NATRIURETIC PEPTIDE (01/31/2024 5:09 AM BINDERY LIBRARY TECHNICAL ASSISTANT) BNP 1,514(H) <=100 pg/mL 01/31/2024 6:26 AM BINDERY LIBRARY TECHNICAL ASSISTANT [facility] Blood BLOOD SPECIMEN / Unknown Venipuncture / Unknown 01/31/2024 5:09 AM BINDERY LIBRARY TECHNICAL ASSISTANT 01/31/2024 5:17 AM BINDERY LIBRARY TECHNICAL ASSISTANT Kb Freire MD LAB - CHEMISTRY ORDFortunato GAYLE [facility] [address] [place] [id number] * (ABNORMAL) RESPIRATORY PANEL WITH SARS-COV-2 BY PCR (STL) (01/31/2024 12:07 AM BINDERY LIBRARY TECHNICAL ASSISTANT) Adenovirus PCR Not detected Not detected 01/31/2024 6:33 AM BINDERY LIBRARY TECHNICAL ASSISTANT [facility] Coronavirus 229E PCR Not detected Not detected 01/31/2024 6:33 AM BINDERY LIBRARY TECHNICAL ASSISTANT [facility] Coronavirus HKU1 PCR Not detected Not detected 01/31/2024 6:33 AM BINDERY LIBRARY TECHNICAL ASSISTANT [facility] Coronavirus NL63 PCR Not detected Not detected 01/31/2024 6:33 AM BINDERY LIBRARY TECHNICAL ASSISTANT [facility] Coronavirus OC43 PCR Not detected Not detected 01/31/2024 6:33 AM BINDERY LIBRARY TECHNICAL ASSISTANT [facility] COVID-19 PCR Not detected Not detected 01/31/2024 6:33 AM BINDERY LIBRARY TECHNICAL ASSISTANT [facility] Human Metapneumovirus PCR Not detected Not detected 01/31/2024 6:33 AM BINDERY LIBRARY TECHNICAL ASSISTANT [facility] Human Rhinovirus/Enterov irus PCR Detected(A) Not detected 01/31/2024 6:33 AM BINDERY LIBRARY TECHNICAL ASSISTANT [facility] Influenza A PCR Not detected Not detected 01/31/2024 6:33 AM BINDERY LIBRARY TECHNICAL ASSISTANT [facility] Influenza B PCR Not detected Not detected 01/31/2024 6:33 AM BINDERY LIBRARY TECHNICAL ASSISTANT [facility] Parainfluenza Virus 1 PCR Not detected Not detected 01/31/2024 6:33 AM BINDERY LIBRARY TECHNICAL ASSISTANT [facility] Parainfluenza Virus 2 PCR Not detected Not detected 01/31/2024 6:33 AM BINDERY LIBRARY TECHNICAL ASSISTANT [facility] Parainfluenza Virus 3 PCR Not detected Not detected 01/31/2024 6:33 AM BINDERY LIBRARY TECHNICAL ASSISTANT [facility] Parainfluenza Virus 4 PCR Not detected Not detected 01/31/2024 6:33 AM BINDERY LIBRARY TECHNICAL ASSISTANT [facility] Respiratory Syncytial Virus PCR Not detected Not detected 01/31/2024 6:33 AM BINDERY LIBRARY TECHNICAL ASSISTANT [facility] Bordetella parapertussis PCR Not detected Not detected 01/31/2024 6:33 AM BINDERY LIBRARY TECHNICAL ASSISTANT [facility] Bordetella pertussis PCR Not detected Not detected 01/31/2024 6:33 AM BINDERY LIBRARY TECHNICAL ASSISTANT [facility] Chlamydia pneumoniae PCR Not detected Not detected 01/31/2024 6:33 AM BINDERY LIBRARY TECHNICAL ASSISTANT [facility] Mycoplasma pneumoniae PCR Not detected Not detected 01/31/2024 6:[address] [facility] Microbiology SPECIMEN FROM NASOPHARYNGEAL STRUCTURE / Unknown Collection / Unknown 01/31/2024 12:07 AM BINDERY LIBRARY TECHNICAL ASSISTANT 01/31/2024 12:17 AM BINDERY LIBRARY TECHNICAL ASSISTANT Narrative [facility] - 01/31/2024 6:33 AM BINDERY LIBRARY TECHNICAL ASSISTANT Contact and Droplet Precautions Required. This nucleic amplification assay has received FDA authorization via the [employer]. Kaitlin Norris MD LAB - MICROBIOLOGY O RDERABLES [facility] [address] [place], [place] [address], [facility] [phone] * (ABNORMAL) BLOOD GASES ARTERIAL (01/30/2024 8:43 AM BINDERY LIBRARY TECHNICAL ASSISTANT) pH Arterial 7.35 7.35 - 7.45 pH 01/30/2024 8:57 AM BINDERY LIBRARY TECHNICAL ASSISTANT [facility] pO2 Arterial 99 80 - 100 mmHg 01/30/2024 8:57 AM BINDERY LIBRARY TECHNICAL ASSISTANT [facility] pCO2 Arterial 52(H) 35 - 45 mmHg 01/30/2024 8:57 AM BINDERY LIBRARY TECHNICAL ASSISTANT [facility] HCO3 Arterial 28.7(H) 22.0 - 26.0 mmol/L 01/30/2024 8:57 AM BINDERY LIBRARY TECHNICAL ASSISTANT [facility] BE Arterial 2.1(H) -2.0 - 2.0 mmol/L 01/30/2024 8:57 AM BINDERY LIBRARY TECHNICAL ASSISTANT [facility] O2 Saturation Arterial 99 90 - 100 % 01/30/2024 8:57 AM BINDERY LIBRARY TECHNICAL ASSISTANT [facility] Solitario's Test Yes 01/30/2024 8:57 AM BINDERY LIBRARY TECHNICAL ASSISTANT [facility] Sample Site Right BA 01/30/2024 8:57 AM BINDERY LIBRARY TECHNICAL ASSISTANT [facility] Mode Bipap 01/30/2024 8:57 AM BINDERY LIBRARY TECHNICAL ASSISTANT [facility] FI O2 50.0 % 01/30/2024 8:57 AM BINDERY LIBRARY TECHNICAL ASSISTANT [facility] Mechanical Respiratory Rate (bpm) 16 01/30/2024 8:57 AM BINDERY LIBRARY TECHNICAL ASSISTANT [facility] BIPAP Insp Pressure (cmH2O) 12 01/30/2024 8:57 AM BINDERY LIBRARY TECHNICAL ASSISTANT [facility] BIPAP Exp Pressure (cmH2O) 6 01/30/2024 8:57 AM [facility] RESP THERAPY Blood, arterial ARTERIAL BLOOD SPECIMEN / Unknown 01/30/2024 8:43 AM BINDERY LIBRARY TECHNICAL ASSISTANT 01/30/2024 8:43 AM [facility] Kb Freire MD LAB - BLOOD GASES OR DERABLES [facility] [address] [phone] * (ABNORMAL) COMPREHENSIVE METABOLIC PANEL (01/30/2024 6:38 AM BINDERY LIBRARY TECHNICAL ASSISTANT) Glucose 156(H) 70 - 99 mg/dL 01/30/2024 7:03 AM [facility] Sodium 145 136 - 145 mmol/L 01/30/2024 7:03 AM [facility] Potassium 4.9 3.5 - 5.1 mmol/L 01/30/2024 7:03 AM [facility] Chloride 106 98 - 107 mmol/L 01/30/2024 7:03 AM [facility] CO2 28 22 - 29 mmol/L 01/30/2024 7:03 AM [facility] Calcium 9.2 8.4 - 10.4 mg/dL 01/30/2024 7:03 AM [facility] Anion Gap 11 6 - 16 mmol/L 01/30/2024 7:03 AM [facility] BUN 46(H) 7 - 26 mg/dL 01/30/2024 7:03 AM [facility] Creatinine 1.60(H) 0.57 - 1.11 mg/dL 01/30/2024 7:03 AM [facility] Alkaline Phosphatase 110 40 - 150 U/L 01/30/2024 7:03 AM [facility] ALT 44 0 - 55 U/L 01/30/2024 7:03 AM [facility] AST 51(H) 5 - 34 U/L 01/30/2024 7:03 AM [facility] Protein Total 6.4 6.4 - 8.3 gm/dL 01/30/2024 7:03 AM [facility] Albumin 2.7(L) 3.4 - 5.0 gm/dL 01/30/2024 7:03 AM BINDERY LIBRARY TECHNICAL ASSISTANT [facility] Bilirubin Total 0.3 0.2 - 1.2 mg/dL 01/30/2024 7:03 AM BINDERY LIBRARY TECHNICAL ASSISTANT [facility] eGFR by CKD-EPI 32(L) >=90 mL/min/1.7 3 m2 01/30/2024 7:03 AM BINDERY LIBRARY TECHNICAL ASSISTANT [facility] Blood BLOOD SPECIMEN / Unknown Venipuncture / Unknown 01/30/2024 6:38 AM BINDERY LIBRARY TECHNICAL ASSISTANT 01/30/2024 6:42 AM BINDERY LIBRARY TECHNICAL ASSISTANT Aura Lancaster MD LAB - CHEMISTRY OR DERABLES [facility] [address] [place] [address] from Last 3 Months Advance Directives * LIMITED RESUSCITATION-PRIOR AND AFTER ARREST (Latest Code Status on File) Date Activated Date Inactivated Comments 02/02/2024 2:54 PM 02/05/2024 3:14 PM Question Answer Comments Limited Resuscitation: No Chest Compression * Full Code Date Activated Date Inactivated Comments 02/02/2024 9:59 AM 02/02/2024 2:54 PM * LIMITED RESUSCITATION-PRIOR AND AFTER ARREST Date Activated Date Inactivated Comments 02/01/2024 4:37 PM 02/02/2024 9:59 AM Question Answer Comments Limited Resuscitation: No Chest Compress ionNo Intubation, No Invasive Ventilation * Full Code Date Activated Date Inactivated Comments 01/30/2024 9:04 AM 02/01/2024 4:37 PM * Full Code Date Activated Date Inactivated Comments 01/30/2024 6:23 AM 01/30/2024 9:04 AM
--- OUTSIDE RECORDS SUMMARY | 2024-03-12 05:15 | XMS_ITS | Clinical Summary ---
Author Organization 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 This disclosure is being madepursuant to the Care Everywhere program and may not contain all information available regarding this patient. Last updated 17.[facility] Allergies No known active allergies Medications * [...] Diagnosed Date Acute hypoxic respiratory failure 01/30/2024 Encounters Date Type Department Care Team Description 01/30/2024 6:13 AM BELT [facility]ANDER - 02/05/2024 2:09 PM [facility] Hospital Encounter [address] [place] [address] Aura Lancaster MD Vissa, Sriram, MD Kaswan, Nitika, MD Zhu, He, MD Hospitalist Discharge Disposition: Home or Self Care 01/30/2024 Travel from Last 3 Months Social History Tobacco Use Types Packs/Day Years [...] and heating? Not hard at all 01/30/2024 [facility] [facility] - Occupational Stress [...] any time in the past [facility], were you homeless or living in a long-term (including now)? No 01/30/2024 Sex and Gender Information Value Date Recorded Sex Assigned at Not on file Gender Identity Not on file Sexual Orientation Not on file Last Filed Vital Signs Vital Sign Reading Time Taken Comments Blood Pressure 143/58 02/05/2024 12:01 PM BELT [facility]ANDER Pulse 79 02/05/2024 12:01 PM BELT [facility]ANDER Temperature 36.2 ??C (97.1 ??F) 02/05/2024 8:01 AM CS T Respiratory Rate 26 02/05/2024 12:01 PM BELT BRANDER Oxygen Saturation 94% 02/05/2024 12:01 PM BELT BRANDER Inhaled Oxygen Concentration 35% 02/01/2024 1 1:38 PM BELT [facility]ANDER Weight 64.6 kg (142 lb 5.6 oz) 01/30/2024 5:14 P M BELT BRANDER Height 152.4 cm (5') 01/30/2024 5:14 PM BELT BRANDER Body Mass Index 27.8 01/30/2024 5:14 PM BELT BRANDER Plan of Treatment Health Maintenance Due Date Last Done Comments BONE DENSITY TESTING 1940 DTAP/TDAP/TD VACCINES (1 - Tdap) 1960 PNEUMOCOCCAL VACCINE 50+ (1 of 2 - PCV) 1960 ZOSTER VACCINE (1 of 2) 10/17/1991 Respiratory Syncytial Virus (RSV) Vaccine Pt: or over 60 yrs (1 - 1-dose 75+ series) 2016 COVID-19 VACCINE ( - season) 2023 INFLUENZA VACCINE (#1) 2023 , 12/19/2020, 11/08/2019, Additional history exists DEPRESSION SCREENING 02/16/2024 MEDICARE AWV ? CALENDAR YEAR 2024 HEPATITIS B VACCINE Aged Out No longe r eligible based on patient's age to complete this topic HIB VACCINE Aged Out No longer eligi ble based on patient's age to complete this topic HPV VACCINE Aged Out No longer eligi ble based on patient's age to complete this topic MENINGOCOCCAL (Group B) VACCINE Aged Out No longer eligible based on patient's age to complete this topic MENINGOCOCCAL VACCINE Aged Out No jozef jl eligible based on patient's age to complete this topic Procedures Procedure Name Priority Date/Time Associated Diagnosis Comments CARDIAC RHYTHM STRIP ORDER 02/07/2024 10:59 PM BELT BRANDER GLUCOSE - POINT OF CARE Routine 02/05/2024 11:55 AM BELT BRANDER XR CHEST 1VW PORTABLE Routine 02/05/2024 9:40 AM BELT BRANDER Acute hypoxic respiratory failure (HCC) GLUCOSE - POINT OF CARE Routine 02/05/2024 8:38 AM BELT BRANDER GLUCOSE - POINT OF CARE Routine 02/05/2024 8:07 AM BELT BRANDER GLUCOSE - POINT OF CARE Routine 02/05/2024 8:02 AM BELT BRANDER MAGNESIUM BLOOD AM Draw 02/05/2024 5:32 AM BELT BRANDER RENAL FUNCTION PANEL AM Draw 02/05/2024 5:32 AM BELT BRANDER CBC W AUTO DIFFERENTIAL AM Draw 02/05/2024 5:32 AM BELT BRANDER GLUCOSE - POINT OF CARE Routine 02/04/2024 8:35 PM BELT BRANDER GLUCOSE - POINT OF CARE Routine 02/04/2024 5:07 PM [facility]T BRANDER GLUCOSE - POINT OF CARE Routine 02/04/2024 12:05 PM BELT BRANDER GLUCOSE - POINT OF CARE Routine 02/04/2024 8:36 AM BELT BRANDER GLUCOSE - POINT OF CARE Routine 02/04/2024 8:05 AM BELT BRANDER MAGNESIUM BLOOD AM Draw 02/04/2024 1:41 AM BELT BRANDER RENAL FUNCTION PANEL AM Draw 02/04/2024 1:41 AM BELT BRANDER CBC W AUTO DIFFERENTIAL AM Draw 02/04/2024 1:41 AM BELT BRANDER GLUCOSE - POINT OF CARE Routine 02/03/2024 8:21 PM BELT BRANDER GLUCOSE - POINT OF CARE Routine 02/03/2024 5:40 PM BELT BRANDER GLUCOSE - POINT OF CARE Routine 02/03/2024 12:10 PM BELT BRANDER BASIC METABOLIC PANEL (CALCIUM TOTAL) AM Draw 02/03/2024 11:01 AM BELT BRANDER GLUCOSE - POINT OF CARE Routine 02/03/2024 8:42 AM BELT BRANDER VANCOMYCIN LEVEL RANDOM Timed 02/02/2024 9:29 PM BELT BRANDER GLUCOSE - POINT OF CARE Routine 02/02/2024 8:47 PM BELT BRANDER GLUCOSE - POINT OF CARE Routine 02/02/2024 5:45 PM BELT BRANDER ECHO COMPLETE Routine 02/02/2024 1:00 PM BELT BRANDER Acute hypoxic respiratory failure (HCC) BASIC METABOLIC PANEL (CALCIUM TOTAL) AM Draw 02/02/2024 11:37 AM BELT BRANDER GLUCOSE - POINT OF CARE Routine 02/02/2024 11:33 AM BELT BRANDER XR CHEST 1VW PORTABLE Routine 02/02/2024 8:46 AM BELT BRANDER Acute hypoxic respiratory failure (HCC) GLUCOSE - POINT OF CARE Routine 02/02/2024 7:49 AM BELT BRANDER GLUCOSE - POINT OF CARE Routine 02/01/2024 8:33 PM BELT BRANDER VANCOMYCIN LEVEL RANDOM Routine 02/01/2024 6:17 PM BELT BRANDER GLUCOSE - POINT OF CARE Routine 02/01/2024 5:07 PM BELT BRANDER GLUCOSE - POINT OF CARE Routine 02/01/2024 11:46 AM BELT BRANDER CULTURE BLOOD Timed 02/01/2024 11:16 AM BELT BRANDER CULTURE BLOOD Timed 02/01/2024 11:12 AM BELT BRANDER GLUCOSE - POINT OF CARE Routine 02/01/2024 8:02 AM BELT BRANDER RENAL FUNCTION PANEL AM Draw 02/01/2024 4:26 AM BELT BRANDER GLUCOSE - POINT OF CARE Routine 01/31/2024 11:23 PM BELT BRANDER GLUCOSE - POINT OF CARE Routine 01/31/2024 10:52 PM BELT BRANDER GLUCOSE - POINT OF CARE Routine 01/31/2024 8:41 PM BELT BRANDER GLUCOSE - POINT OF CARE Routine 01/31/2024 6:14 PM BELT BRANDER GLUCOSE - POINT OF CARE Routine 01/31/2024 3:17 PM BELT BRANDER GLUCOSE - POINT OF CARE Routine 01/31/2024 12:14 PM BELT BRANDER GLUCOSE - POINT OF CARE Routine 01/31/2024 9:48 AM BELT BRANDER GLUCOSE - POINT OF CARE Routine 01/31/2024 8:13 AM BELT BRANDER BASIC METABOLIC PANEL (CALCIUM TOTAL) AM Draw 01/31/2024 5:09 AM BELT BRANDER PROCALCITONIN LEVEL AM Draw 01/31/2024 5 :09 AM BELT BRANDER CBC W/O DIFFERENTIAL AM Draw 01/31/2024 5:09 AM BELT BRANDER HEMOGLOBIN A1C Routine 01/31/2024 5:09 AM BELT BRANDER B-TYPE NATRIURETIC PEPTIDE Routine 01/31/2024 5:09 AM BELT BRANDER RESPIRATORY PANEL WITH SARS-COV-2 BY PCR (STL) Routine 01/31/2024 12:07 AM BELT BRANDER GLUCOSE - POINT OF CARE Routine 01/30/2024 10:09 PM BELT BRANDER GLUCOSE - POINT OF CARE Routine 01/30/2024 8:50 PM BELT BRANDER GLUCOSE - POINT OF CARE Routine 01/30/2024 5:36 PM BELT BRANDER GLUCOSE - POINT OF CARE Routine 01/30/2024 2:19 PM [facility]T [facility]ANDER GLUCOSE - POINT OF CARE Routine 01/30/2024 12:54 PM BELT BRANDER GLUCOSE - POINT OF CARE Routine 01/30/2024 9:17 AM BELT BRANDER BLOOD GASES ARTERIAL Routine 01/30/2024 8:43 AM BELT BRANDER XR CHEST 1VW PORTABLE Routine 01/30/2024 8:30 AM BELT BRANDER Acute hypoxic respiratory failure (HCC) CBC W/O DIFFERENTIAL STAT 01/30/2024 6:38 AM BELT BRANDER COMPREHENSIVE METABOLIC PANEL STAT 01/30/2024 6:38 AM BELT BRANDER from Last 3 Months Results * CARDIAC RHYTHM STRIP ORDER (02/07/2024 10:59 PM BELT BRANDER) Narrative 02/07/2024 10:59 PM BELT BRANDER Ordered by an unspecified provider. Scanned Document CARDIAC SERVICES ORD ERABLES * (ABNORMAL) GLUCOSE - POINT OF CARE (02/05/2024 11:55 AM BELT BRANDER) Only the most recent of35 resultswithin the time period is included. Glucose WB/POC 181(H) 70 - 99 mg/dL 02/05/2024 12:42 PM [facility] Specimen Type Cap Fingerstick 2023 12:42 PM [facility] Blood BLOOD SPECIMEN / Unknown 02/05/2024 11:55 AM BELT BRANDER 02/05/2024 12:42 PM BELT BRANDER Boogie Stephens MD LAB - POINT OF CARE ORDERABLES [facility] [address] [place] [address] * XR Chest 1Vw Portable (02/05/2024 9:40 AM BELT BRANDER) Only the most recent of3 resultswithin the time period is included. Anatomical Region Laterality Modality Chest Computed Radiogr aphy 02/05/2024 10:0 6 AM BELT BRANDER Narrative 02/05/2024 10:06 AM BELT BRANDER PROCEDURE(s): XR CHEST 1VW PORTABLE DATE AND [...] CBC W AUTO DIFFERENTIAL (02/05/2024 5:32 AM BELT BRANDER) Only the most recent of2 resultswithin the time period is included. WBC 12.5(H) 4.0 - 10.7 x10E9/L 02/05/2024 5:54 AM [facility] RBC Count 4.33 3.90 - 5.20 x10E12/L 02/05/2024 5:54 AM [facility] Hemoglobin 12.0 11.9 - 15.8 g/dL 02/05/2024 5:54 AM [facility] Hematocrit 39.6 34.8 - 46.1 % 02/05/2024 5:54 AM [facility] MCV 91.5 80.0 - 98.0 fL 02/05/2024 5:54 AM [facility] MCH 27.7 26.7 - 33.6 pg 02/05/2024 5:54 AM [facility] MCHC 30.3(L) 31.7 - 36.3 g/dL 02/05/2024 5:54 AM [facility] RDW-CV 15.8(H) 11.3 - 14.8 % 02/05/2024 5:54 AM [facility] Platelet Count 305 150 - 420 x10E9/L 02/05/2024 5:54 AM [facility] MPV 10.6 7.8 - 11.4 fL 02/05/2024 5:54 AM [facility] Neutrophil % 65.7 41.0 - 74.0 % 02/05/2024 5:54 AM [facility] Lymphocyte % 20.8 17.0 - 47.0 % 02/05/2024 5:54 AM [facility] Monocyte % 7.3 3.0 - 11.0 % 02/05/2024 5:54 AM [facility] Eosinophil % 1.8 0.0 - 7.0 % 02/05/2024 5:54 AM [facility] Basophil % 0.6 0.0 - 1.6 % 02/05/2024 5:54 AM [facility] Immature Granulocytes % 3.8(H) 0.0 - 1.0 % 02/05/2024 5:54 AM [facility] Neutrophil Absolute 8.24(H) 1.60 - 7.50 x10E9/L 02/05/2024 5:54 AM [facility] Lymphocyte Absolute 2.61 1.00 - 4.40 x10E9/L 02/05/2024 5:54 AM [facility] Monocyte Absolute 0.91 0.15 - 1.00 x10E9/L 02/05/2024 5:54 AM [facility] Eosinophil Absolute 0.22 0.00 - 0.60 x10E9/L 02/05/2024 5:54 AM [facility] Basophil Absolute 0.07 0.00 - 0.13 x10E9/L 02/05/2024 5:54 AM [facility] NRBC 0.3(H) <=0.0 /100 WBC 02/05/2024 5:54 AM [facility] Blood BLOOD SPECIMEN / Unknown Venipuncture / Unknown 02/05/2024 5:32 AM BELT BRANDER 02/05/2024 5:40 AM [facility] Boogie Stephens MD LAB - HEMATOLOGY ORD ERABLES [facility] [address] [place] [address] * (ABNORMAL) RENAL FUNCTION PANEL (02/05/2024 5:32 AM BELT BRANDER) Only the most recent of3 resultswithin the time period is included. Glucose 55(L) 70 - 99 mg/dL 02/05/2024 5:57 AM [facility] Sodium 144 136 - 145 mmol/L 02/05/2024 5:57 AM [facility] Potassium 5.0 3.5 - 5.1 mmol/L 02/05/2024 5:57 AM [facility] Comment:Specimen Moderately Hemolyzed Chloride 105 98 - 107 mmol/L 02/05/2024 5:57 AM [facility] CO2 30(H) 22 - 29 mmol/L 02/05/2024 5:57 AM [facility] Calcium 8.8 8.4 - 10.4 mg/dL 02/05/2024 5:57 AM [facility] Anion Gap 9 6 - 16 mmol/L 02/05/2024 5:57 AM [facility] BUN 51(H) 7 - 26 mg/dL 02/05/2024 5:57 AM [facility] Creatinine 1.48(H) 0.57 - 1.11 mg/dL 02/05/2024 5:57 AM BELT BRANDER [facility] Albumin 2.6(L) 3.4 - 5.0 gm/dL 02/05/2024 5:57 AM BELT BRANDER [facility] Phosphorus 4.4 2.5 - 4.5 mg/dL 02/05/2024 5:57 AM BELT BRANDER [facility] eGFR by CKD-EPI 35(L) >=90 mL/min/1.7 3 m2 02/05/2024 5:57 AM BELT BRANDER [facility] Blood BLOOD SPECIMEN / Unknown Venipuncture / Unknown 02/05/2024 5:32 AM BELT BRANDER 02/05/2024 5:40 AM [facility]ER Boogie Stephens MD LAB - CHEMISTRY ORDFortunato GAYLE Performing Organization Address [facility] Co de Phone Number [facility] [address] [place] [address] [phone] * MAGNESIUM BLOOD (02/05/2024 5:32 AM BELT BRANDER) Only the most recent of2 resultswithin the time period is included. Magnesium 2.3 1.6 - 2.6 mg/dL 02/05/2024 5:56 AM [facility] Blood BLOOD SPECIMEN / Unknown Venipuncture / Unknown 02/05/2024 5:32 AM BELT BRANDER 02/05/2024 5:40 AM [facility]ER Boogie Stephens MD LAB - CHEMISTRY ORDFortunato GAYLE Performing Organization Address [facility] de Phone Number [facility] [address] [place] [address] [phone] * (ABNORMAL) BASIC METABOLIC PANEL (CALCIUM TOTAL) (02/03/2024 11:01 AM BELT BRANDER) Only the most recent of3 resultswithin the time period is included. Glucose 203(H) 70 - 99 mg/dL 02/03/2024 11:32 AM [facility] Sodium 146(H) 136 - 145 mmol/L 02/03/2024 11:32 AM [facility] Potassium 4.1 3.5 - 5.1 mmol/L 02/03/2024 11:32 AM [facility] Chloride 101 98 - 107 mmol/L 02/03/2024 11:32 AM [facility] CO2 31(H) 22 - 29 mmol/L 02/03/2024 11:32 AM [facility] Calcium 9.7 8.4 - 10.4 mg/dL 02/03/2024 11:32 AM [facility] Anion Gap 14 6 - 16 mmol/L 02/03/2024 11:32 AM [facility] BUN 43(H) 7 - 26 mg/dL 02/03/2024 11:32 AM [facility] Creatinine 1.43(H) 0.57 - 1.11 mg/dL 02/03/2024 11:32 AM [facility] eGFR by CKD-EPI 37(L) >=90 mL/min/1.7 3 m2 02/03/2024 11:32 AM [facility] Blood BLOOD SPECIMEN / Unknown Venipuncture / Unknown 02/03/2024 11:01 AM BELT BRANDER 02/03/2024 11:15 AM [facility]ER Boogie Stephens MD LAB - CHEMISTRY ORDE NALINI Performing Organization Address [facility] de Phone Number [facility] [address] [place], [place] [phone] * VANCOMYCIN LEVEL RANDOM (02/02/2024 9:29 PM BELT BRANDER) Only the most recent of2 resultswithin the time period is included. Vancomycin Random 14.8 <=40.0 ug/mL 02/02/2024 9:52 PM BELT BRANDER [facility] Blood BLOOD SPECIMEN / Unknown Venipuncture / Unknown 02/02/2024 9:29 PM BELT BRANDER 02/02/2024 9:36 PM BELT BRANDER Narrative [facility] - 02/02/2024 9:52 PM BELT BRANDER No reference range available for random Vancomycin levels. All results interpreted by ordering physician. Boogie Stephens MD LAB - CHEMISTRY ORDFortunato GAYLE Performing Organization Address [facility] Co de Phone Number [facility] [address] [place], [place] [phone] * ECHO COMPLETE (02/02/2024 1:00 PM BELT BRANDER) LA vol index 0.026 l/m? ? ? [...] E' lateral delmar 8.745 cm/[facility] grad 3.302 mmHg [facility] FU JI PACS MV VTI 24.491 cm [facility] I PACS PV pk delmar 132.543 cm/s [facility] I PACS TAPSE 2.175 cm [facility] CV FUJ I PACS TR pk delmar 294.495 cm/s [facility] CV FUJ I PACS Anatomical Region Laterality Modality Ultrasound 02/02/2024 9:42 AM BELT BRANDER Narrative 02/03/2024 9:14 AM BELT BRANDER Summary ??* The left ventricle is normal [...] 1940 Gender: ? Female Accession #: ? [id number] Ht: ? 60 in Wt: ? 142 lb BSA: ? 1.67 m2 HR: ? 95 bpm BP: ? 180 / ? 80 mmHg Exam Date: ? 02/02/2024 9:42 AM Patient Status: ? I/P Study Site: ? [facility] EStudy Info Exam Type: ? ECHO COMPLETE Indications ?J96.01 - Acute hypoxic respiratory failure (HCC) Procedure(s) ??* A complete 2D, color Doppler, spectral Doppler, and M-Mode transthoracic echocardiogram was performed. Staff Referring Physician: ? Kb Freire Ordering Provider: ? Kb Freire Attending Physician: ? Kb Freire Proof Operator: ? Arpita Dozier Left Ventricle ??The left [...] 9:42 AM Patient Status: I/P Study Site: [facility] Primary Location: [facility] EStudy Info Exam Type: ECHO COMPLETE Indications J96.01 - Acute hypoxic respiratory failure (HCC) Procedure(s) * A complete 2D, color Doppler, spectral Doppler, and M-Modetransthoracic echocardiogram was performed. Staff Referring Physician: Kb Freire Ordering Provider: Kb Freire Attending Physician: Kb Freire Proof Operator: Arpita Dozier Left Ventricle The left ventricle is [...] LA Volume Index (BP MOD) 26 ml/m2 16-34 Report Signatures Finalized by Hardik Choudhary on 02/03/2024 09:14 AM Kb Freire MD ECHO CUPID * CULTURE BLOOD (02/01/2024 11:16 AM BELT BRANDER) Only the most recent of2 resultswithin the time period is included. Culture No growth day 5 ELISABET 02/06/2024 2:31 PM [facility] Blood PERIPHERAL BLOOD / Unknown Venipuncture / Unknown 02/01/2024 11:16 AM BELT BRANDER 02/01/2024 11:27 AM BELT BRANDER Boogie Stephens MD LAB - MICROBIOLOGY O RDERABLES [facility] [address] [place], [facility], [facility] [phone] * (ABNORMAL) PROCALCITONIN LEVEL (01/31/2024 5:09 AM BELT BRANDER) Procalcitonin 14.84(H) <0.10 ng/mL 01/31/2024 5:59 AM BELT BRANDER [facility] Blood BLOOD SPECIMEN / Unknown Venipuncture / Unknown 01/31/2024 5:09 AM BELT BRANDER 01/31/2024 5:17 AM BELT BRANDER Narrative [facility] - 01/31/2024 5:59 AM BELT BRANDER The change in procalcitonin (PCT) concentration over [...] Change in Procalcitonin Calculator is available at [email or web address] ?? If clinical picture has not improved and PCT remains high, reevaluate and consider treatment failure or other causes. Kaitlin Norris MD LAB - CHEMISTRY ANGEL GAYLE [facility] [address] [place] [address] * (ABNORMAL) HEMOGLOBIN A1C (01/31/2024 5:09 AM BELT BRANDER) Hemoglobin A1c 6.8(H) <5.7 % 01/31/2024 5:29 AM [facility] BR[facility]ER [facility] Estimated Average Glucose 148 mg/dL 01/31/2024 5:29 AM BELT BRANDER [facility] Blood BLOOD SPECIMEN / Unknown Venipuncture / Unknown 01/31/2024 5:09 AM BELT BRANDER 01/31/2024 5:17 AM BELT BRANDER Narrative [facility] - 01/31/2024 5:29 AM BELT BRANDER HbA1c Interpretation: Normal: < 5.7% Pre-diabetes: 5.7-6.4% [...] exceeds 5% in the specimen. The [employer] assay for the measurement of HbA1c is a National Glycohemoglobin Standardization Program (NGSP) certified method. Kb Freire MD LAB - CHEMISTRY ANGEL GAYLE Performing Organization Address City/[facility]/ZIP Co de Phone Number [facility] [address] [place] [address] * (ABNORMAL) CBC W/O DIFFERENTIAL (01/31/2024 5:09 AM BELT BRANDER) Only the most recent of2 resultswithin the time period is included. WBC 15.8(H) 4.0 - 10.7 x10E9/L 01/31/2024 5:32 AM [facility] RBC Count 3.80(L) 3.90 - 5.20 x10E12/L 01/31/2024 5:32 AM [facility] Hemoglobin 10.5(L) 11.9 - 15.8 g/dL 01/31/2024 5:32 AM [facility] Hematocrit 35.7 34.8 - 46.1 % 01/31/2024 5:32 AM [facility] MCV 93.9 80.0 - 98.0 fL 01/31/2024 5:32 AM [facility] MCH 27.6 26.7 - 33.6 pg 01/31/2024 5:32 AM [facility] MCHC 29.4(L) 31.7 - 36.3 g/dL 01/31/2024 5:32 AM [facility] RDW-CV 14.9(H) 11.3 - 14.8 % 01/31/2024 5:32 AM [facility] Platelet Count 304 150 - 420 x10E9/L 01/31/2024 5:32 AM [facility] MPV 10.8 7.8 - 11.4 fL 01/31/2024 5:32 AM [facility] Blood BLOOD SPECIMEN / Unknown Venipuncture / Unknown 01/31/2024 5:09 AM BELT BRANDER 01/31/2024 5:17 AM [facility] BRANDER Kaitlin Norris MD LAB - HEMATOLOGY ORD MATIAS Performing Organization Address City/[facility]/ZIP Co de Phone Number [facility] [address] [place] [address] * (ABNORMAL) B-TYPE NATRIURETIC PEPTIDE (01/31/2024 5:09 AM BELT BRANDER) [facility] BNP 1,514(H) <=100 pg/mL 01/31/2024 6:26 AM BELT BRANDER [facility] Blood BLOOD SPECIMEN / Unknown Venipuncture / Unknown 01/31/2024 5:09 AM BELT BRANDER 01/31/2024 5:17 AM [facility]ER Kb Freire MD LAB - CHEMISTRY ANGEL GAYLE [facility] [address] [place] [address] * (ABNORMAL) RESPIRATORY PANEL WITH SARS-COV-2 BY PCR (STL) (01/31/2024 12:07 AM BELT BRANDER) [facility] Adenovirus PCR Not detected Not detected 01/31/2024 6:33 AM [facility] BR[facility]ER [facility] Coronavirus 229E PCR Not detected Not detected 01/31/2024 6:33 AM [facility] Coronavirus HKU1 PCR Not detected Not detected 01/31/2024 6:33 AM [facility] Coronavirus NL63 PCR Not detected Not detected 01/31/2024 6:33 AM [facility] Coronavirus OC43 PCR Not detected Not detected 01/31/2024 6:33 AM [facility] BR[facility]ER [facility] COVID-19 PCR Not detected Not detected 01/31/2024 6:33 AM [facility] BR[facility]ER [facility] Human Metapneumovirus PCR Not detected Not detected 01/31/2024 6:33 AM [facility] Human Rhinovirus/Enterov irus PCR Detected(A) Not detected 01/31/2024 6:33 AM [facility] Influenza A PCR Not detected Not detected 01/31/2024 6:33 AM [facility] BR[facility] Influenza B PCR Not detected Not detected 01/31/2024 6:33 AM [facility] Parainfluenza Virus 1 PCR Not detected Not detected 01/31/2024 6:33 AM [facility] Parainfluenza Virus 2 PCR Not detected Not detected 01/31/2024 6:33 AM [facility]ER [facility] Parainfluenza Virus 3 PCR Not detected Not detected 01/31/2024 6:33 AM [facility] MICROBIOLOGY Parainfluenza Virus 4 PCR Not detected Not detected 01/31/2024 6:33 AM [facility] MICROBIOLOGY Respiratory Syncytial Virus PCR Not detected Not detected 01/31/2024 6:33 AM [facility] MICROBIOLOGY Bordetella parapertussis PCR Not detected Not detected 01/31/2024 6:33 AM [facility] MICROBIOLOGY Bordetella pertussis PCR Not detected Not detected 01/31/2024 6:33 AM [facility] MICROBIOLOGY Chlamydia pneumoniae PCR Not detected Not detected 01/31/2024 6:33 AM [facility] MICROBIOLOGY Mycoplasma pneumoniae PCR Not detected Not detected 01/31/2024 6:33 AM [facility] MICROBIOLOGY Microbiology SPECIMEN FROM NASOPHARYNGEAL STRUCTURE / Unknown Collection / Unknown 01/31/2024 12:07 AM [facility] 01/31/2024 12:17 AM [facility] MICROBIOLOGY - 01/31/2024 6:33 AM [facility] Contact and Droplet Precautions Required. This nucleic amplification assay has received FDA authorization via the [employer]. Kaitlin Norris MD LAB - MICROBIOLOGY O RDERABLES [facility] MICROBIOLOGY [address] [place] [address], [facility] [phone] * (ABNORMAL) BLOOD GASES ARTERIAL (01/30/2024 8:43 AM [facility] [facility]) pH Arterial 7.35 7.35 - 7.45 pH 01/30/2024 8:57 AM [facility] RESP THERAPY pO2 Arterial 99 80 - 100 mmHg 01/30/2024 8:57 AM [facility] RESP THERAPY pCO2 Arterial 52(H) 35 - 45 mmHg 01/30/2024 8:57 AM [facility] RESP THERAPY HCO3 Arterial 28.7(H) 22.0 - 26.0 mmol/L 01/30/2024 8:57 AM [facility] RESP THERAPY BE Arterial 2.1(H) -2.0 - 2.0 mmol/L 01/30/2024 8:57 AM [facility] RESP THERAPY O2 Saturation Arterial 99 90 - 100 % 01/30/2024 8:57 AM [facility] RESP THERAPY Sol[employer]'s Test Yes 01/30/2024 8:57 AM [facility] RESP THERAPY Sample Site Right BA 01/30/2024 8:57 AM [facility] RESP THERAPY Mode Bipap 01/30/2024 8:57 AM [facility] RESP THERAPY FI O2 50.0 % 01/30/2024 8:57 AM [facility] RESP THERAP[facility] Mechanical Respiratory Rate (bpm) 16 01/30/2024 8:57 AM [facility] RESP THERAP[facility] BIPAP Insp Pressure (cmH2O) 12 01/30/2024 8:57 AM [facility] RESP THERAP[facility] BIPAP Exp Pressure (cmH2O) 6 01/30/2024 8:57 AM [facility] RESP THERAPY Blood, arterial ARTERIAL BLOOD SPECIMEN / Unknown 01/30/2024 8:43 AM [facility] 01/30/2024 8:43 AM [facility] Kb Freire MD LAB - BLOOD GASES OR DERABLES Performing Organization Address City/State/[facility] Co de Phone Number [facility] RESP THERAPY [address] [phone] * (ABNORMAL) COMPREHENSIVE METABOLIC PANEL (01/30/2024 6:38 AM [facility]) Glucose 156(H) 70 - 99 mg/dL 01/30/2024 7:03 AM [facility] Sodium 145 136 - 145 mmol/L 01/30/2024 7:03 AM [facility] Potassium 4.9 3.5 - 5.1 mmol/L 01/30/2024 7:03 AM [facility] Chloride 106 98 - 107 mmol/L 01/30/2024 7:03 AM [facility] CO2 28 22 - 29 mmol/L 01/30/2024 7:03 AM [facility] Calcium 9.2 8.4 - 10.4 mg/dL 01/30/2024 7:03 AM [facility] Anion Gap 11 6 - 16 mmol/L 01/30/2024 7:03 AM [facility] BUN 46(H) 7 - 26 mg/dL 01/30/2024 7:03 AM [facility] Creatinine 1.60(H) 0.57 - 1.11 mg/dL 01/30/2024 7:03 AM [facility] Alkaline Phosphatase 110 40 - 150 U/L 01/30/2024 7:03 AM [facility] ALT 44 0 - 55 U/L 01/30/2024 7:03 AM [facility] AST 51(H) 5 - 34 U/L 01/30/2024 7:03 AM [facility] Protein Total 6.4 6.4 - 8.3 gm/dL 01/30/2024 7:03 AM [facility] Albumin 2.7(L) 3.4 - 5.0 gm/dL 01/30/2024 7:03 AM [facility] Bilirubin Total 0.3 0.2 - 1.2 mg/dL 01/30/2024 7:03 AM [facility] eGFR by CKD-EPI 32(L) >=90 mL/min/1.7 3 m2 01/30/2024 7:03 AM [facility] Blood BLOOD SPECIMEN / Unknown Venipuncture / Unknown 01/30/2024 6:38 AM [facility] 01/30/2024 6:42 AM [facility] Aura Lancaster MD LAB - CHEMISTRY OR DERABLES [facility] [id number] [phone] from Last 3 Months Advance Directives * [...]
--- OUTSIDE RECORDS SUMMARY | 2024-03-12 05:16 | XMS_ITS | Clinical Summary ---
Author Organization [facility] Address [address] [place] [id number] Phone Care Team Providers Care Dining Service Supervisor Name Role Phone Scott Galvez MD Primary Care Provider [phone] Allergies No known active allergies Medications Medication [...] 08/01/2019 Active pen needle, diabetic (Droplet [place]) 31G X 5 MM misc 05/25/2019 Active glucose blood (Accu-Chek Corrie Plus) test strip 07/12/2019 Active Continuous Blood Gluc Sensor (FreeStyle Sophia 14 Day Sensor) misc Use with Freestyle Sophia monitor 11/07/2019 Active Continuous Blood Gluc [place] (FreeStyle Sophia 14 Day [place]) device Use with Freestyle Sophia Sensor 11/07/2019 [...] 11/08/2019, 12/15/2018, Additional history exists Care Teams Dining Service Supervisor Relationship Specialty Start Date End Date Scott Galvez MD [address] [place] [address] PCP - General Internal Medicine 05/21/21
--- OUTSIDE RECORDS SUMMARY | 2024-03-12 05:16 | XMS_ITS | Continuity of Care Document ---
Author Organization [facility] Address [address] [facility] [address] [place] [phone] Phone Care Team Providers Care Room Server Name Role Phone Jm Burrows MD Unavailable Unavailable Medications Medication Instructions Dosage Effective Dates (start - stop) Status Comments diclofenac 0.1 % Eye Drops Instill 1 drop in the operated eye Three times a day - Active amlodipine 5 mg tablet - Active metoprolol succinate ER 25 mg tablet,extended release 24 hr - Active metformin 500 mg tablet - Active lisinopril 20 mg-hydrochlorothiazid e 12.5 mg tablet - Active lovastatin 20 mg tablet - Active Lasix 40 mg tablet - Active Novolin 70/30 100 unit/mL (70-30) Susp, Sub-Q Inj - Active Klor-Con 10 mEq tablet,extended release - Active Synthroid 137 mcg tablet - Active Procedures Procedure Date Post-op [...] Copied on Encounter [facility], [address], [place], [place], [address], [place] tel:[phone] SEC Faheem SOW Professional a comprehensive exam (chief complaint) FOLLOW-UP SURGERY NOS 4 Stormy Oneal. [address] [facility], [address], [place], [place], [address], [place]. tel:[phone] Referring Provider: Maulik Blanco, [address], [place], [address] . tel:[phone] [facility], [address], [place], [place], [address], [place] [phone] SEC [place] JUANJOSE Professional a comprehensive exam (chief complaint) FOLLOW-UP SURGERY NOS 3 Stormy Oneal. [address] [facility], [address], [place], [place], [address], [place]. tel:[phone] Referring Provider: Maulik Blanco, [address], [place], [address] . tel:[phone] [facility], [address], [place], [place], [address], [place] tel:[phone] SEC Faheem SOW Professional a comprehensive exam (chief complaint) FOLLOW-UP SURGERY NOS 3 Vani Agrawal. [address] [facility], [address], [place], [address], [place]. tel:[phone] Referring Provider: Maulik Blanco, [address], [place], [address] . tel:[phone] [facility], [address] [employer] [address], [place], [place], [address], [place] [phone] [facility] No Information 3 Latrice Willingham. [address], [address], [place], [place], [address], [place]. tel:[phone] Referring Provider: Maulik Blanco, [facility] [address], [place], [address] . tel:[phone] [facility] [facility], [address] [place], [place] [address], [place], [place], [address], [place] tel:[phone] SEC Maurice Branham No Information 3 Latrice Willingham. [address], [address], [place], [place], [address], [place]. tel:[phone] Referring Provider: Maulik Blanco, [facility] [address], [place], [address] . tel:[phone] [facility], [facility] [employer] [address], [place], [place], [address], [place] tel:[phone] SEC Maurice N Lindberg No Information 3 Latrice Willingham. [facility] [address], [address], [place], [place], [address], [place]. tel:[phone] [employer] [facility], [address] [employer] [address], [place], [place], [address], [place] tel:[phone] SEC Faheem SOW Professional a comprehensive exam (chief complaint) SENILE NUCLEAR CATARACTDMII OPHTH NT ST [facility] RETINOPATH[facility] NOS 3 Latrice Willingham. [facility] [address], [address], [place], [place], [address], [place]. tel:[phone] Referring Provider: Maulik Blanco, [facility] [address], [place], [address] . tel:[phone] [facility], [facility] [employer] [address], [place], [place], [address], [place] tel:[phone] [facility] No Information Oct- 6200 [address] Philomena Chaneyn. [address] [facility] [address] , [address], [place], [address], [place]. tel:[phone] Referring Provider: Deni Anderson, [address] [place], [address]. tel:[phone] Family History Family Member Type Diagnosis Age [...]
--- OUTSIDE RECORDS SUMMARY | 2024-03-12 05:16 | XMS_ITS | Encounter Summary ---
Author Organization [facility] Address [address] [place] [address]. [place] [address] [place] [address] Care Team Providers Care Battery Repairer Name Role Phone Raymond Medina MD Primary Care Provider [phone] Jessee Gregg MD Primary Care Provider [phone] Encounter Details Date Type Department Care Team (Late st Contact Info) Description 10/30/2011 Abstract [facility] [address] [place] [address] New Referring, Provider Social History [...] on filedocumented in this encounter Care Teams Battery Repairer Relationship Specialty Start Date End Date Raymond Medina MD [address] [place] [id number] PCP - General FAMILY PRACTICE 06/04/16 08/16/19 [place] [address] [place] [address] PCP - General FAMILY PRACTICE 08/17/19 06/15/21 documented as of this encounter
--- OUTSIDE RECORDS SUMMARY | 2024-03-12 05:16 | XMS_ITS | Patient Health Summary ---
Author Organization [facility] Address [address] [place] [address] Care Team Providers Care Circuit Breaker Assembler Name Role Phone Unavailable Primary Care Provider Unavailabl e Note from [facility],non-owned Affiliates and Associated Physician Practices is amultiple site organization consisting of ambulatory clinics and hospital sitesin [place], [place], [place] and [place]. This disclosure is being madepursuant to the Care Everywhere program and may not contain all information available regarding this patient. Last updated 17.[facility] Allergies No known active allergies Medications * Be aware that medications may not be up to date on this document. Alwaysverify current medications with the patient. * montelukast (Singulair) 10 MG tablet Take 1 (one) tablet by mouth at bedtime * insulin glargine (Lantus/Semglee) 100 units/mL pen Inject 14 (fourteen) Units subcutaneously at bedtime * lovastatin (Mevacor) 20 MG tablet Take 1 (one) tablet by mouth at bedtime * omeprazole (PriLOSEC) 40 MG capsule Take 1 (one) capsule by mouth daily before breakfast * aspirin EC (Ecotrin) 81 MG tablet Take 1 (one) tablet by mouth once daily * escitalopram (Lexapro) 20 MG tablet Take 1 (one) tablet by mouth once daily * losartan (Cozaar) 100 MG tablet Take 1 (one) tablet by mouth once daily * furosemide (Lasix) 40 MG tablet Take 1 (one) tablet by mouth 2 times daily * Ensifentrine 3 MG/2.5ML SUSP Inhale 2.5 mL by mouth 2 times daily * Oxygen(Started 02/05/2024) Oxygen continuous at 5 L/min via nasal cannula - Estimate length of need (number of months): Lifetime * budesonide-formoterol (Symbicort) 160-4.5 MCG/ACT inhaler(Started 02/05/2024) Inhale 2 (two) puffs by mouth 2 times daily for 60 days 1 refill by 02/04/2025 * albuterol-ipratropium (Duo-Neb) 0.5-2.5 (3) MG/3ML nebulizer solution(Started 02/05/2024) Inhale 3 mL (1 vial) by mouth using nebulizer every 6 hours for 90 days 2 refills by 02/04/2025 * NIFEdipine CR 24hr (Adalat CC) 60 MG tablet(Started 02/06/2024) Take 1 (one) tablet by mouth once daily for 60 days 1 refill by 02/04/2025 * senna-docusate (Senokot-S) 8.6-50 MG tablet(Started 02/05/2024) Take 1 (one) tablet by mouth 2 times daily for 60 days 1 refill by 02/04/2025 Ended Medications* predniSONE (Deltasone) 10 MG tablet(Started 02/05/2024) () Take 4 (four) tablets by mouth once daily for 4 days, THEN 3 (three) tablets once daily for 2 days,THEN 2 (two) tablets once daily for 2 days, THEN 1 (one) tablet once daily for 2 days. * guaiFENesin ER 12hr (Mucinex) 600 MG tablet(Started 02/05/2024)() Take 1 (one) tablet by mouth every 12 hours for 14 days Active Problems Problem Noted Date Diagnosed Date [...] and heating? Not hard at all 01/30/2024 [facility] [place] [facility] Occupat ional Health - Occupational Stress [...] any time in the past 12 m [facility], were you homeless or living in a custodial (including now)? No 01/30/2024 Sex and Gender Information Value Date Recorded Sex Assigned at Not on file Gender Identity Not on file Sexual Orientation Not on file Last Filed Vital Signs Vital Sign Reading Time Taken Comments Blood Pressure 143/58 02/05/2024 12:01 PM HOUSE CALLS NURSE PRACTITIONER Pulse 79 02/05/2024 12:01 PM HOUSE CALLS NURSE PRACTITIONER Temperature 36.2 ??C (97.1 ??F) 02/05/2024 8:01 AM CS T Respiratory Rate 26 02/05/2024 12:01 PM HOUSE CALLS NURSE PRACTITIONER Oxygen Saturation 94% 02/05/2024 12:01 PM HOUSE CALLS NURSE PRACTITIONER Inhaled Oxygen Concentration 35% 02/01/2024 1 1:38 PM HOUSE CALLS NURSE PRACTITIONER Weight 64.6 kg (142 lb 5.6 oz) 01/30/2024 5:14 P M HOUSE CALLS NURSE PRACTITIONER Height 152.4 cm (5') 01/30/2024 5:14 PM HOUSE CALLS NURSE PRACTITIONER Body Mass Index 27.8 01/30/2024 5:14 PM HOUSE CALLS NURSE PRACTITIONER Procedures * CARDIAC RHYTHM STRIP ORDER(Performed 02/07/2024) * GLUCOSE - POINT OF CARE(Performed 02/05/2024) * XR CHEST 1VW PORTABLE(Performed 02/05/2024) Performed for Acute hypoxic respiratory failure (HCC) * GLUCOSE - POINT OF CARE(Performed 02/05/2024) * GLUCOSE - POINT OF CARE(Performed 02/05/2024) * GLUCOSE - POINT OF CARE(Performed 02/05/2024) * MAGNESIUM BLOOD(Performed 02/05/2024) * RENAL FUNCTION PANEL(Performed 02/05/2024) * CBC W AUTO DIFFERENTIAL(Performed 02/05/2024) * GLUCOSE - POINT OF CARE(Performed 02/04/2024) * GLUCOSE - POINT OF CARE(Performed 02/04/2024) * GLUCOSE - POINT OF CARE(Performed 02/04/2024) * GLUCOSE - POINT OF CARE(Performed 02/04/2024) * GLUCOSE - POINT OF CARE(Performed 02/04/2024) * MAGNESIUM BLOOD(Performed 02/04/2024) * RENAL FUNCTION PANEL(Performed 02/04/2024) * CBC W AUTO DIFFERENTIAL(Performed 02/04/2024) * GLUCOSE - POINT OF CARE(Performed 02/03/2024) * GLUCOSE - POINT OF CARE(Performed 02/03/2024) * GLUCOSE - POINT OF CARE(Performed 02/03/2024) * BASIC METABOLIC PANEL (CALCIUM TOTAL)(Performed 02/03/2024) * GLUCOSE - POINT OF CARE(Performed 02/03/2024) * VANCOMYCIN LEVEL RANDOM(Performed 02/02/2024) * GLUCOSE - POINT OF CARE(Performed 02/02/2024) * GLUCOSE - POINT OF CARE(Performed 02/02/2024) * ECHO COMPLETE(Performed 02/02/2024) Performed for Acute hypoxic respiratory failure (HCC) * BASIC METABOLIC PANEL (CALCIUM TOTAL)(Performed 02/02/2024) * GLUCOSE - POINT OF CARE(Performed 02/02/2024) * XR CHEST 1VW PORTABLE(Performed 02/02/2024) Performed for Acute hypoxic respiratory failure (HCC) * GLUCOSE - POINT OF CARE(Performed 02/02/2024) * GLUCOSE - POINT OF CARE(Performed 02/01/2024) * VANCOMYCIN LEVEL RANDOM(Performed 02/01/2024) * GLUCOSE - POINT OF CARE(Performed 02/01/2024) * GLUCOSE - POINT OF CARE(Performed 02/01/2024) * CULTURE BLOOD(Performed 02/01/2024) * CULTURE BLOOD(Performed 02/01/2024) * GLUCOSE - POINT OF CARE(Performed 02/01/2024) * RENAL FUNCTION PANEL(Performed 02/01/2024) * GLUCOSE - POINT OF CARE(Performed 01/31/2024) * GLUCOSE - POINT OF CARE(Performed 01/31/2024) * GLUCOSE - POINT OF CARE(Performed 01/31/2024) * GLUCOSE - POINT OF CARE(Performed 01/31/2024) * GLUCOSE - POINT OF CARE(Performed 01/31/2024) * GLUCOSE - POINT OF CARE(Performed 01/31/2024) * GLUCOSE - POINT OF CARE(Performed 01/31/2024) * GLUCOSE - POINT OF CARE(Performed 01/31/2024) * BASIC METABOLIC PANEL (CALCIUM TOTAL)(Performed 01/31/2024) * PROCALCITONIN LEVEL(Performed 01/31/2024) * CBC W/O DIFFERENTIAL(Performed 01/31/2024) * HEMOGLOBIN A1C(Performed 01/31/2024) * B-TYPE NATRIURETIC PEPTIDE(Performed 01/31/2024) * RESPIRATORY PANEL WITH SARS-COV-2 BY PCR (L)(Performed 01/31/2024) * GLUCOSE - POINT OF CARE(Performed 01/30/2024) * GLUCOSE - POINT OF CARE(Performed 01/30/2024) * GLUCOSE - POINT OF CARE(Performed 01/30/2024) * GLUCOSE - POINT OF CARE(Performed 01/30/2024) * GLUCOSE - POINT OF CARE(Performed 01/30/2024) * GLUCOSE - POINT OF CARE(Performed 01/30/2024) * BLOOD GASES ARTERIAL(Performed 01/30/2024) * XR CHEST 1VW PORTABLE(Performed 01/30/2024) Performed for Acute hypoxic respiratory failure (HCC) * CBC W/O DIFFERENTIAL(Performed 01/30/2024) * COMPREHENSIVE METABOLIC PANEL(Performed 01/30/2024) Results * CARDIAC RHYTHM STRIP ORDER (02/07/2024 10:59 PM HOUSE CALLS NURSE PRACTITIONER) Narrative 02/07/2024 10:59 PM HOUSE CALLS NURSE PRACTITIONER Ordered by an unspecified provider. Scanned Document CARDIAC SERVICES ORD ERABLES * (ABNORMAL) GLUCOSE - POINT OF CARE (02/05/2024 11:55 AM HOUSE CALLS NURSE PRACTITIONER) Only the most recent of35 resultswithin the time period is included. Glucose WB/POC 181(H) 70 - 99 mg/dL 02/05/2024 12:42 PM HOUSE CALLS NURSE PRACTITIONER [facility] Specimen Type Cap Fingerstick 2023 12:42 PM HOUSE CALLS NURSE PRACTITIONER [facility] Blood BLOOD SPECIMEN / Unknown 02/05/2024 11:55 AM HOUSE CALLS NURSE PRACTITIONER 02/05/2024 12:42 PM HOUSE CALLS NURSE PRACTITIONER Boogie Stephens MD LAB - POINT OF CARE ORDERABLES Performing Organization Address City/State/[facility] Co de Phone Number [facility] [address] [place] [id number] * XR Chest 1Vw Portable (02/05/2024 9:40 AM HOUSE CALLS NURSE PRACTITIONER) Only the most recent of3 resultswithin the time period is included. Anatomical Region Laterality Modality Chest Computed Radiogr aphy 02/05/2024 10:0 6 AM HOUSE CALLS NURSE PRACTITIONER Narrative 02/05/2024 10:06 AM HOUSE CALLS NURSE PRACTITIONER PROCEDURE(s): XR CHEST 1VW PORTABLE DATE AND [...] CBC W AUTO DIFFERENTIAL (02/05/2024 5:32 AM HOUSE CALLS NURSE PRACTITIONER) Only the most recent of2 resultswithin the time period is included. WBC 12.5(H) 4.0 - 10.7 x10E9/L 02/05/2024 5:54 AM HOUSE CALLS NURSE PRACTITIONER [facility] RBC Count 4.33 3.90 - 5.20 x10E12/L 02/05/2024 5:54 AM HOUSE CALLS NURSE PRACTITIONER [facility] Hemoglobin 12.0 11.9 - 15.8 g/dL 02/05/2024 5:54 AM HOUSE CALLS NURSE PRACTITIONER [facility] Hematocrit 39.6 34.8 - 46.1 % 02/05/2024 5:54 AM HOUSE CALLS NURSE PRACTITIONER [facility] MCV 91.5 80.0 - 98.0 fL 02/05/2024 5:54 AM HOUSE CALLS NURSE PRACTITIONER [facility] MCH 27.7 26.7 - 33.6 pg 02/05/2024 5:54 AM HOUSE CALLS NURSE PRACTITIONER [facility] MCHC 30.3(L) 31.7 - 36.3 g/dL 02/05/2024 5:54 AM HOUSE CALLS NURSE PRACTITIONER [facility] RDW-CV 15.8(H) 11.3 - 14.8 % 02/05/2024 5:54 AM HOUSE CALLS NURSE PRACTITIONER [facility] Platelet Count 305 150 - 420 x10E9/L 02/05/2024 5:54 AM HOUSE CALLS NURSE PRACTITIONER [facility] MPV 10.6 7.8 - 11.4 fL 02/05/2024 5:54 AM HOUSE CALLS NURSE PRACTITIONER [facility] Neutrophil % 65.7 41.0 - 74.0 % 02/05/2024 5:54 AM [facility] Lymphocyte % 20.8 17.0 - 47.0 % 02/05/2024 5:54 AM [facility] Monocyte % 7.3 3.0 - 11.0 % 02/05/2024 5:54 AM [facility] Eosinophil % 1.8 0.0 - 7.0 % 02/05/2024 5:54 AM [facility] Basophil % 0.6 0.0 - 1.6 % 02/05/2024 5:54 AM [facility] Immature Granulocytes % 3.8(H) 0.0 - 1.0 % 02/05/2024 5:54 AM [facility] Neutrophil Absolute 8.24(H) 1.60 - 7.50 x10E9/L 02/05/2024 5:54 AM [facility] Lymphocyte Absolute 2.61 1.00 - 4.40 x10E9/L 02/05/2024 5:54 AM [facility] Monocyte Absolute 0.91 0.15 - 1.00 x10E9/L 02/05/2024 5:54 AM [facility] Eosinophil Absolute 0.22 0.00 - 0.60 x10E9/L 02/05/2024 5:54 AM [facility] Basophil Absolute 0.07 0.00 - 0.13 x10E9/L 02/05/2024 5:54 AM [facility] NRBC 0.3(H) <=0.0 /100 WBC 02/05/2024 5:54 AM [facility] Blood BLOOD SPECIMEN / Unknown Venipuncture / Unknown 02/05/2024 5:32 AM HOUSE CALLS NURSE PRACTITIONER 02/05/2024 5:40 AM HOUSE CALLS NURSE PRACTITIONER Boogie Stephens MD LAB - HEMATOLOGY ORD ERABLES [facility] [address] [place] [address] * (ABNORMAL) RENAL FUNCTION PANEL (02/05/2024 5:32 AM HOUSE CALLS NURSE PRACTITIONER) Only the most recent of3 resultswithin the time period is included. Glucose 55(L) 70 - 99 mg/dL 02/05/2024 5:57 AM [facility] Sodium 144 136 - 145 mmol/L 02/05/2024 5:57 AM [facility] Potassium 5.0 3.5 - 5.1 mmol/L 02/05/2024 5:57 AM [facility] Comment:Specimen Moderately Hemolyzed Chloride 105 98 - 107 mmol/L 02/05/2024 5:57 AM [facility] CO2 30(H) 22 - 29 mmol/L 02/05/2024 5:57 AM [facility] Calcium 8.8 8.4 - 10.4 mg/dL 02/05/2024 5:57 AM [facility] Anion Gap 9 6 - 16 mmol/L 02/05/2024 5:57 AM [facility] BUN 51(H) 7 - 26 mg/dL 02/05/2024 5:57 AM [facility] Creatinine 1.48(H) 0.57 - 1.11 mg/dL 02/05/2024 5:57 AM [facility] Albumin 2.6(L) 3.4 - 5.0 gm/dL 02/05/2024 5:57 AM [facility] Phosphorus 4.4 2.5 - 4.5 mg/dL 02/05/2024 5:57 AM [facility] eGFR by CKD-EPI 35(L) >=90 mL/min/1.7 3 m2 02/05/2024 5:57 AM [facility] Blood BLOOD SPECIMEN / Unknown Venipuncture / Unknown 02/05/2024 5:32 AM HOUSE CALLS NURSE PRACTITIONER 02/05/2024 5:40 AM HOUSE CALLS NURSE PRACTITIONER Boogie Stephens MD LAB - CHEMISTRY ANGEL GAYLE [facility] [address] [place] [address] * MAGNESIUM BLOOD (02/05/2024 5:32 AM HOUSE CALLS NURSE PRACTITIONER) Only the most recent of2 resultswithin the time period is included. Magnesium 2.3 1.6 - 2.6 mg/dL 02/05/2024 5:56 AM [facility] Blood BLOOD SPECIMEN / Unknown Venipuncture / Unknown 02/05/2024 5:32 AM HOUSE CALLS NURSE PRACTITIONER 02/05/2024 5:40 AM HOUSE CALLS NURSE PRACTITIONER Boogie Stephens MD LAB - CHEMISTRY ANGEL GAYLE [facility] [address] [place] [address] * (ABNORMAL) BASIC METABOLIC PANEL (CALCIUM TOTAL) (02/03/2024 11:01 AM HOUSE CALLS NURSE PRACTITIONER) Only the most recent of3 resultswithin the time period is included. Glucose 203(H) 70 - 99 mg/dL 02/03/2024 11:32 AM [facility] Sodium 146(H) 136 - 145 mmol/L 02/03/2024 11:32 AM [facility] Potassium 4.1 3.5 - 5.1 mmol/L 02/03/2024 11:32 AM [facility] Chloride 101 98 - 107 mmol/L 02/03/2024 11:32 AM [facility] CO2 31(H) 22 - 29 mmol/L 02/03/2024 11:32 AM [facility] Calcium 9.7 8.4 - 10.4 mg/dL 02/03/2024 11:32 AM [facility] Anion Gap 14 6 - 16 mmol/L 02/03/2024 11:32 AM [facility] BUN 43(H) 7 - 26 mg/dL 02/03/2024 11:32 AM [facility] Creatinine 1.43(H) 0.57 - 1.11 mg/dL 02/03/2024 11:32 AM [facility] eGFR by CKD-EPI 37(L) >=90 mL/min/1.7 3 m2 02/03/2024 11:32 AM [facility] Blood BLOOD SPECIMEN / Unknown Venipuncture / Unknown 02/03/2024 11:01 AM HOUSE CALLS NURSE PRACTITIONER 02/03/2024 11:15 AM HOUSE CALLS NURSE PRACTITIONER Boogie Stephens MD LAB - CHEMISTRY ANGEL GAYLE Performing Organization Address [facility] [place]/[facility] Co de Phone Number [facility] [address] [place] [address] * VANCOMYCIN LEVEL RANDOM (02/02/2024 9:29 PM HOUSE CALLS NURSE PRACTITIONER) Only the most recent of2 resultswithin the time period is included. Vancomycin Random 14.8 <=40.0 ug/mL 02/02/2024 9:52 PM HOUSE CALLS NURSE PRACTITIONER [facility] Blood BLOOD SPECIMEN / Unknown Venipuncture / Unknown 02/02/2024 9:29 PM HOUSE CALLS NURSE PRACTITIONER 02/02/2024 9:36 PM HOUSE CALLS NURSE PRACTITIONER Narrative [facility] - 02/02/2024 9:52 PM HOUSE CALLS NURSE PRACTITIONER No reference range available for random Vancomycin levels. All results interpreted by ordering physician. Boogie Stephens MD LAB - CHEMISTRY ANGEL GAYLE Performing Organization Address [facility] de Phone Number [facility] [address] [place] [address] * ECHO COMPLETE (02/02/2024 1:00 PM HOUSE CALLS NURSE PRACTITIONER) LA vol index 0.026 l/m? ? ? [...] Region Laterality Modality Ultrasound 02/02/2024 9:42 AM HOUSE CALLS NURSE PRACTITIONER Narrative 02/03/2024 9:14 AM HOUSE CALLS NURSE PRACTITIONER Summary ??* The left ventricle is normal [...] 1940 Gender: ? Female Accession #: ? [id number] Ht: ? 60 in Wt: ? 142 [...] Kb Freire Attending Physician: ? Kb Freire Hydrodynamicist: ? Darcalvinsangita Nguyen Tasia Left Ventricle ??The left ventricle is normal [...] Volume Index (BP MOD) ?26 ml/m2 ? 16-34 Report Signatures Finalized by Hardik ??Kenrick on [...] Study Site: [facility] Primary Location: [facility] EStudy Info Exam Type: ECHO COMPLETE Indications J96.01 - Acute hypoxic respiratory failure (HCC) Procedure(s) * A complete 2D, color Doppler, spectral Doppler, and M-Modetransthoracic echocardiogram was performed. Staff Referring Physician: Kb Freire Ordering Provider: Kb Freire Attending Physician: Kb Freire Hydrodynamicist: Arpita Dozier Left Ventricle The left ventricle [...] LA Volume Index (BP MOD) 26 ml/m2 16 Report Signatures Finalized by Hardik Choudhary on 02/03/2024 09:14 AM Kb Freire MD ECHO CUPID * CULTURE BLOOD (02/01/2024 11:16 AM HOUSE CALLS NURSE PRACTITIONER) Only the most recent of2 resultswithin the time period is included. Culture No growth day 5 ELISABET 02/06/2024 2:31 PM HOUSE CALLS NURSE PRACTITIONER [facility] Blood PERIPHERAL BLOOD / Unknown Venipuncture / Unknown 02/01/2024 11:16 AM HOUSE CALLS NURSE PRACTITIONER 02/01/2024 11:27 AM HOUSE CALLS NURSE PRACTITIONER Boogie Stephens MD LAB - MICROBIOLOGY O RDERABLES [facility] [address] [place], [place] [address], [facility] [phone] * (ABNORMAL) PROCALCITONIN LEVEL (01/31/2024 5:09 AM HOUSE CALLS NURSE PRACTITIONER) Procalcitonin 14.84(H) <0.10 ng/mL 01/31/2024 5:59 AM HOUSE CALLS NURSE PRACTITIONER [facility] Blood BLOOD SPECIMEN / Unknown Venipuncture / Unknown 01/31/2024 5:09 AM HOUSE CALLS NURSE PRACTITIONER 01/31/2024 5:17 AM HOUSE CALLS NURSE PRACTITIONER Narrative [facility] - 01/31/2024 5:59 AM HOUSE CALLS NURSE PRACTITIONER The change in procalcitonin (PCT) concentration over [...] Change in Procalcitonin Calculator is available at [email or web address]-DGH-Hjbhicqmfv.[employer] ?? If clinical picture has not improved and PCT remains high, reevaluate and consider treatment failure or other causes. Kaitlin Norris MD LAB - CHEMISTRY ANGEL GAYLE [facility] Organization Address City/State/[facility] Co de Phone Number [facility] [address] [place] [address] * (ABNORMAL) HEMOGLOBIN A1C (01/31/2024 5:09 AM HOUSE CALLS NURSE PRACTITIONER) Hemoglobin A1c 6.8(H) <5.7 % 01/31/2024 5:29 AM HOUSE CALLS NURSE PRACTITIONER [facility] Estimated Average Glucose 148 mg/dL 01/31/2024 5:29 AM HOUSE CALLS NURSE PRACTITIONER [facility] Blood BLOOD SPECIMEN / Unknown Venipuncture / Unknown 01/31/2024 5:09 AM HOUSE CALLS NURSE PRACTITIONER 01/31/2024 5:17 AM HOUSE CALLS NURSE PRACTITIONER Narrative [facility] - 01/31/2024 5:29 AM HOUSE CALLS NURSE PRACTITIONER HbA1c Interpretation: Normal: < 5.7% Pre-diabetes: 5.7-6.4% [...] Freire MD LAB - CHEMISTRY ANGEL GAYLE [facility] Organization Address City/State/ZIP Co de Phone Number [facility] [address] [place] [address] * (ABNORMAL) CBC W/O DIFFERENTIAL (01/31/2024 5:09 AM HOUSE CALLS NURSE PRACTITIONER) Only the most recent of2 resultswithin the time period is included. WBC 15.8(H) 4.0 - 10.7 x10E9/L 01/31/2024 5:32 AM HOUSE CALLS NURSE PRACTITIONER [facility] RBC Count 3.80(L) 3.90 - 5.20 x10E12/L 01/31/2024 5:32 AM HOUSE CALLS NURSE PRACTITIONER [facility] Hemoglobin 10.5(L) 11.9 - 15.8 g/dL 01/31/2024 5:32 AM HOUSE CALLS NURSE PRACTITIONER [facility] Hematocrit 35.7 34.8 - 46.1 % 01/31/2024 5:32 AM HOUSE CALLS NURSE PRACTITIONER [facility] MCV 93.9 80.0 - 98.0 fL 01/31/2024 5:32 AM HOUSE CALLS NURSE PRACTITIONER [facility] MCH 27.6 26.7 - 33.6 pg 01/31/2024 5:32 AM [facility] MCHC 29.4(L) 31.7 - 36.3 g/dL 01/31/2024 5:32 AM [facility] RDW-CV 14.9(H) 11.3 - 14.8 % 01/31/2024 5:32 AM [facility] Platelet Count 304 150 - 420 x10E9/L 01/31/2024 5:32 AM [facility] MPV 10.8 7.8 - 11.4 fL 01/31/2024 5:32 AM [facility] Blood BLOOD SPECIMEN / Unknown Venipuncture / Unknown 01/31/2024 5:09 AM HOUSE CALLS NURSE PRACTITIONER 01/31/2024 5:17 AM HOUSE CALLS NURSE PRACTITIONER Kaitlin Norris MD LAB - HEMATOLOGY ORD ERABLES Performing Organization Address City/[facility]/ZIP Co de Phone Number [facility] [address] [place] [address] * (ABNORMAL) B-TYPE NATRIURETIC PEPTIDE (01/31/2024 5:09 AM HOUSE CALLS NURSE PRACTITIONER) [facility] BNP 1,514(H) <=100 pg/mL 01/31/2024 6:26 AM [facility] Blood BLOOD SPECIMEN / Unknown Venipuncture / Unknown 01/31/2024 5:09 AM HOUSE CALLS NURSE PRACTITIONER 01/31/2024 5:17 AM HOUSE CALLS NURSE PRACTITIONER Kb Freire MD LAB - CHEMISTRY ANGEL GAYLE [facility] [address] [place] [address] * (ABNORMAL) RESPIRATORY PANEL WITH SARS-COV-2 BY PCR ([facility]) (01/31/2024 12:07 AM HOUSE CALLS NURSE PRACTITIONER) [facility] Adenovirus PCR Not detected Not detected 01/31/2024 6:[address] [facility] Coronavirus 229E PCR Not detected Not detected 01/31/2024 6:33 AM [facility] Coronavirus HKU1 PCR Not detected Not detected 01/31/2024 6:33 AM HOUSE CALLS NURSE PRACTITIONER [facility] Coronavirus NL63 PCR Not detected Not detected 01/31/2024 6:33 AM HOUSE CALLS NURSE PRACTITIONER [facility] Coronavirus OC43 PCR Not detected Not detected 01/31/2024 6:33 AM HOUSE CALLS NURSE PRACTITIONER [facility] COVID-19 PCR Not detected Not detected 01/31/2024 6:33 AM HOUSE CALLS NURSE PRACTITIONER [facility] Human Metapneumovirus PCR Not detected Not detected 01/31/2024 6:33 AM HOUSE CALLS NURSE PRACTITIONER [facility] Human Rhinovirus/Enterov irus PCR Detected(A) Not detected 01/31/2024 6:33 AM HOUSE CALLS NURSE PRACTITIONER [facility] Influenza A PCR Not detected Not detected 01/31/2024 6:33 AM HOUSE CALLS NURSE PRACTITIONER [facility] Influenza B PCR Not detected Not detected 01/31/2024 6:33 AM HOUSE CALLS NURSE PRACTITIONER [facility] Parainfluenza Virus 1 PCR Not detected Not detected 01/31/2024 6:33 AM HOUSE CALLS NURSE PRACTITIONER [facility] Parainfluenza Virus 2 PCR Not detected Not detected 01/31/2024 6:33 AM HOUSE CALLS NURSE PRACTITIONER [facility] Parainfluenza Virus 3 PCR Not detected Not detected 01/31/2024 6:33 AM HOUSE CALLS NURSE PRACTITIONER [facility] Parainfluenza Virus 4 PCR Not detected Not detected 01/31/2024 6:33 AM HOUSE CALLS NURSE PRACTITIONER [facility] Respiratory Syncytial Virus PCR Not detected Not detected 01/31/2024 6:33 AM HOUSE CALLS NURSE PRACTITIONER [facility] Bordetella parapertussis PCR Not detected Not detected 01/31/2024 6:33 AM HOUSE CALLS NURSE PRACTITIONER [facility] Bordetella pertussis PCR Not detected Not detected 01/31/2024 6:33 AM HOUSE CALLS NURSE PRACTITIONER [facility] Chlamydia pneumoniae PCR Not detected Not detected 01/31/2024 6:33 AM HOUSE CALLS NURSE PRACTITIONER [facility] Mycoplasma pneumoniae PCR Not detected Not detected 01/31/2024 6:33 AM HOUSE CALLS NURSE PRACTITIONER [facility] Microbiology SPECIMEN FROM NASOPHARYNGEAL STRUCTURE / Unknown Collection / Unknown 01/31/2024 12:07 AM HOUSE CALLS NURSE PRACTITIONER 01/31/2024 12:17 AM HOUSE CALLS NURSE PRACTITIONER [facility] - 01/31/2024 6:33 AM HOUSE CALLS NURSE PRACTITIONER Contact and Droplet Precautions Required. This nucleic amplification assay has received FDA authorization via the [employer]. Kaitlin Norris MD LAB - MICROBIOLOGY O RDERABLES [facility] MICROBIOLOGY [address] [place] [address] [phone] * (ABNORMAL) BLOOD GASES ARTERIAL (01/30/2024 8:43 AM HOUSE CALLS NURSE PRACTITIONER) pH Arterial 7.35 7.35 - 7.45 pH 01/30/2024 8:57 AM HOUSE CALLS NURSE PRACTITIONER [facility] RESP THERAPY pO2 Arterial 99 80 - 100 mmHg 01/30/2024 8:57 AM HOUSE CALLS NURSE PRACTITIONER [facility] RESP THERAPY pCO2 Arterial 52(H) 35 - 45 mmHg 01/30/2024 8:57 AM HOUSE CALLS NURSE PRACTITIONER [facility] RESP THERAPY HCO3 Arterial 28.7(H) 22.0 - 26.0 mmol/L 01/30/2024 8:57 AM HOUSE CALLS NURSE PRACTITIONER [facility] RESP THERAPY BE Arterial 2.1(H) -2.0 - 2.0 mmol/L 01/30/2024 8:57 AM HOUSE CALLS NURSE PRACTITIONER [facility] RESP THERAPY O2 Saturation Arterial 99 90 - 100 % 01/30/2024 8:57 AM HOUSE CALLS NURSE PRACTITIONER [facility] RESP THERAPY Solitario's Test Yes 01/30/2024 8:57 AM HOUSE CALLS NURSE PRACTITIONER [facility] RESP THERAPY Sample Site Right BA 01/30/2024 8:57 AM HOUSE CALLS NURSE PRACTITIONER [facility] RESP THERAPY Mode Bipap 01/30/2024 8:57 AM HOUSE CALLS NURSE PRACTITIONER [facility] RESP THERAPY FI O2 50.0 % 01/30/2024 8:57 AM HOUSE CALLS NURSE PRACTITIONER [facility] RESP THERAPY Mechanical Respiratory Rate (bpm) 16 01/30/2024 8:57 AM HOUSE CALLS NURSE PRACTITIONER [facility] RESP THERAPY BIPAP Insp Pressure (cmH2O) 12 01/30/2024 8:57 AM HOUSE CALLS NURSE PRACTITIONER [facility] RESP THERAPY BIPAP Exp Pressure (cmH2O) 6 01/30/2024 8:57 AM HOUSE CALLS NURSE PRACTITIONER [facility] RESP THERAPY Blood, arterial ARTERIAL BLOOD SPECIMEN / Unknown 01/30/2024 8:43 AM HOUSE CALLS NURSE PRACTITIONER 01/30/2024 8:43 AM HOUSE CALLS NURSE PRACTITIONER Kb Freire MD LAB - BLOOD GASES OR DERABLES [facility] RESP THERAPY [address] [place], [place] [address] [phone] * (ABNORMAL) COMPREHENSIVE METABOLIC PANEL (01/30/2024 6:38 AM [facility]) [facility] Glucose 156(H) 70 - 99 mg/dL 01/30/2024 7:03 AM [facility] Sodium 145 136 - 145 mmol/L 01/30/2024 7:03 AM [facility] Potassium 4.9 3.5 - 5.1 mmol/L 01/30/2024 7:03 AM [facility] Chloride 106 98 - 107 mmol/L 01/30/2024 7:03 AM [facility] CO2 28 22 - 29 mmol/L 01/30/2024 7:03 AM [facility] Calcium 9.2 8.4 - 10.4 mg/dL 01/30/2024 7:03 AM [facility] Anion Gap 11 6 - 16 mmol/L 01/30/2024 7:03 AM [facility] BUN 46(H) 7 - 26 mg/dL 01/30/2024 7:03 AM [facility] Creatinine 1.60(H) 0.57 - 1.11 mg/dL 01/30/2024 7:03 AM [facility] Alkaline Phosphatase 110 40 - 150 U/L 01/30/2024 7:03 AM [facility] ALT 44 0 - 55 U/L 01/30/2024 7:03 AM [facility] AST 51(H) 5 - 34 U/L 01/30/2024 7:03 AM [facility] Protein Total 6.4 6.4 - 8.3 gm/dL 01/30/2024 7:03 AM [facility] Albumin 2.7(L) 3.4 - 5.0 gm/dL 01/30/2024 7:03 AM [facility] Bilirubin Total 0.3 0.2 - 1.2 mg/dL 01/30/2024 7:03 AM [facility] eGFR by CKD-EPI 32(L) >=90 mL/min/1.7 3 m2 01/30/2024 7:03 AM [facility] Blood BLOOD SPECIMEN / Unknown Venipuncture / Unknown 01/30/2024 6:38 AM [facility] 01/30/2024 6:42 AM HOUSE CALLS NURSE PRACTITIONER Aura Francis Lancaster MD LAB - CHEMISTRY OR DERABLES [facility] [address] [place] [address]
--- OUTSIDE RECORDS SUMMARY | 2024-03-12 05:16 | XMS_ITS | Clinical Summary ---
Author Organization [facility] Address [address] [place] [address]. [place], [place] [id number] [place] [id number] Care Team Providers Care Business Support Coordinator Name Role Phone Unavailable Primary Care Provider [...] D 600-400 MG-UNIT tabletIndications :Congestive heart failure ([facility]) Take 1 tablet by mouth 2 (two) times daily. clarification of script 180 tablet 1 10/02/19 20 Active Insulin Pen Needle (DROPLET PEN NEEDLES) 31G X 8 MM MiscIndications:D iabetes ([facility]) TO USE TO INJECT INSULIN QID 1 Container 5 03/19/19 21 Active insulin lispro, 1 Unit Dial, (HUMALOG KWIKPEN) 100 UNIT/ML injection (PEN)Indications: Diabetes mellitus ([facility]) INJECT SUBCUTANEOUSLY 3 TIMES DAILY PER SLIDING SCALE (UP TO DAILY DOSE OF 35-40 UNITS) 12 pen 08/13/19 21 Active furosemide 40 MG tabletIndications :Congestive heart failure ([facility]) TAKE 1 TABLET BY MOUTH DAILY IN THE MORNING 90 tablet 1 11/20/19 21 Active LORazepam (ATIVAN) 0.5 MG tabletIndications :Panic attack Take 1 tablet (0.5 mg total) by mouth every 6 (six) hours as needed for Anxiety. 20 tablet 11/22/19 21 Active Continuous Blood Gluc Currency Counter (FREESTYLE SANDER 14 DAY READER) DeviceIndications :Type 2 diabetes mellitus with diabetic nephropathy, with long-term current use of insulin ([facility]) Use to check blood sugar four times daily and as directed. 1 each 02/19/19 22 Active insulin glargine 100 UNIT/ML injection (PEN)Indications: Type 2 diabetes mellitus with diabetic nephropathy, with long-term current use of insulin ([facility]) Inject 16 Units into the skin nightly at bedtime. 5 pen 1 03/03/19 22 Active furosemide 20 MG tabletIndications :Essential hypertension Take 1 tablet (20 mg total) by mouth every evening. 90 tablet 1 03/03/19 22 Active ACCU-CHEK NYDIA PLUS test stripIndications: Type 2 diabetes mellitus with diabetic nephropathy, with long-term current use of insulin ([facility]) Use to check blood sugar [...] 05/30/2018 Chronic renal insufficiency, stage III (moderate) ([facility]) 05/16/2018 Congestive heart failure ([facility]) 04/29 Obstructive sleep apnea syndrome 04/29/2018 Anxiety 04/29/2018 Chronic obstructive pulmonary disease ([facility]) 03/07/2018 Diabetes mellitus ([facility]) 03/07/2018 Essential hypertension 03/07/2018 Hyperlipidemia 03/07/2018 Tobacco dependence syndrome 03/07/2018 Chronic hypoxemic respiratory failure ([facility]) 03/07/2018 Esophagitis 03/07/2018 Hypothyroidism 03/07/2018 Coronary arteriosclerosis [...] Other prematur e Heart Disease Sister 1 [place] Sister 2 Heart Sister 3 form heart problems Heart Sister 4 from heart problems [place] Son Open Heart Son Stroke Son (after [...] Comments Blood Pressure 108/64 01/30/2021 2:01 PM BELLMAKER Pulse 63 01/30/2021 2:01 PM BELLMAKER Temperature 36.1 ??C (97 ??F) 01/30/2021 2:01 PM BELLMAKER Respiratory Rate 20 01/30/2021 2:01 PM BELLMAKER Oxygen Saturation 91% 01/30/2021 2:01 PM BELLMAKER Inhaled Oxygen Concentration - - Weight 64.8 kg (142 lb 12.8 oz) 01/30/2021 2:01 PM BELLMAKER Height 152.4 cm (5') 01/30/2021 2:01 PM BELLMAKER Body Mass Index 27.89 01/30/2021 2:01 PM BELLMAKER Plan of Treatment Health Maintenance Due Date Last Done Comments ASCVD Statin 1940 Kidney Health Evaluation 1940 PHQ-2 (Physician [place]) 1953 Diabetes: Retinopathy Eye Exam 10/17/1959 DTaP, Tdap [...] 07/30/2020, Additional history exists COVID-19 Vaccine ( season) 2023 09/30/2020, 09/09/2020 Influenza Adult (#1) 2023 11/19/2021, 12/19/2020, 11/08/2019, Additional history exists PHQ-2 (Physician [place]) 02/16/2024 Meningococcal B Vaccine Aged Out No l onger eligible based on patient's age to complete this topic Meningococcal Vaccine Aged Out No jozef jl eligible based on patient's age to complete this topic RSV Immunizations Under 20 Months Aged Out No longer eligible based on patient's age to complete this topic Procedures Procedure Name Priority Date/Time Associated Diagnosis Comments HEMOGLOBIN, GLYCOSYLATED Routine 01/30/2021 Type 2 diabetes mellitus with diabetic nephropathy, with long-term current use of insulin ([facility]) LIPID PANEL Routine 04/30/2020 4:15 PM CDT Essential hypertension Type 2 diabetes mellitus with diabetic nephropathy, with long-term current use of insulin ([facility]) from Last 3 Months or Most Recently Relevant to Health Maintenance Results * A1C (BACK OFFICE) (01/30/2021) HGB A1C 7.0 % -[id number] [facility] 01/30/2021 us Jessee Gregg MD LABORATORY Final Resul t -[id number] [facility] [place] [address] [facility] [place] [address], * LIPID PANEL (04/30/2020 4:15 PM CDT) [...] equation in the estimation of LDL-C. Jamil CRUZ et al. PAUL. 2013;310(19): 3640-6812 (http://education.Particle Code.Absio/faq/SRE180) CHOL/HDL RATIO 3.0 <5.0 (calc) [facility] [...] t [facility] [address] [address] [phone] from Last 3 Months or Most Recently Relevant to Health Maintenance Insurance MEDICARE
[2024-03-12] MEDS: IPRATROPIUM 0.5 MG/ALBUTEROL SULFATE 2.5 MG AMPUL.NEB 3 ML INHALATION (05:20)
--- NOTE | 2024-03-12 05:20 | ECG_ITS ---
Test Date: 2024-03-12 05:31:48 Measurements Intervals Distant Rate: 105 P: 77 WA: 177 QRS: 215 QRSD: 119 T: 1 QT: 364 QTc: 481 Interpretive Statements SINUS TACHYCARDIA WITH OCCASIONAL VENTRICULAR PREMATURE COMPLEXES POSSIBLE LEFT ATRIAL ENLARGEMENT [-0.1mV P-WAVE IN V1/V2] INDETERMINATE AXIS MODERATE INTRAVENTRICULAR CONDUCTION DELAY [110+ ms QRS DURATION] MODERATE ST DEPRESSION [0.05+ mV ST DEPRESSION] Compared to ECG 01/29/2024 23:49:47 Ventricular premature complex(es) now present Indeterminate axis now present Intraventricular conduction delay now present ST (T wave) deviation now present Sinus rhythm no longer present Electronically Signed On 03-12-2024 22:10:18 [employer] by Rikki Maguire M.D.
--- NOTE | 2024-03-12 05:24 | PC.NURSE ---
ROSY WITH LAB CALLED
--- NOTE | 2024-03-12 05:32 | PC.NURSE ---
LAB AT THE BEDSIDE. XRAY OUTSIDE THE ROOM
--- NOTE | 2024-03-12 05:40 | PC.NURSE ---
XRAY NOW AT THE BEDSIDE
--- OUTSIDE RECORDS SUMMARY | 2024-03-12 05:41 | XMS_ITS | Clinical Summary ---
Author Organization [facility] Address [address] [place] [address]. [place], [place] [id number] [place] [address] Care Team Providers Care Manager Training Name Role Phone Unavailable Primary Care Provider [...] D 600-400 MG-UNIT tabletIndications :Congestive heart failure ([facility]) Take 1 tablet by mouth 2 (two) times daily. clarification of script 180 tablet 1 10/02/19 20 Active Insulin Pen Needle (DROPLET PEN NEEDLES) 31G X 8 MM MiscIndications:D iabetes ([facility]) TO USE TO INJECT INSULIN QID 1 Container 5 03/19/19 21 Active insulin lispro, 1 Unit Dial, (HUMALOG KWIKPEN) 100 UNIT/ML injection (PEN)Indications: Diabetes mellitus ([facility]) INJECT SUBCUTANEOUSLY 3 TIMES DAILY PER SLIDING SCALE (UP TO DAILY DOSE OF 35-40 UNITS) 12 pen 08/13/19 21 Active furosemide 40 MG tabletIndications :Congestive heart failure ([facility]) TAKE 1 TABLET BY MOUTH DAILY IN THE MORNING 90 tablet 1 11/20/19 21 Active LORazepam (ATIVAN) 0.5 MG tabletIndications :Panic attack Take 1 tablet (0.5 mg total) by mouth every 6 (six) hours as needed for Anxiety. 20 tablet 11/22/19 21 Active Continuous Blood Gluc Wrecker Driver (FREESTYLE SANDER 14 DAY READER) DeviceIndications :Type 2 diabetes mellitus with diabetic nephropathy, with long-term current use of insulin ([facility]) Use to check blood sugar four times daily and as directed. 1 each 02/19/19 22 Active insulin glargine 100 UNIT/ML injection (PEN)Indications: Type 2 diabetes mellitus with diabetic nephropathy, with long-term current use of insulin ([facility]) Inject 16 Units into the skin nightly at bedtime. 5 pen 1 03/03/19 22 Active furosemide 20 MG tabletIndications :Essential hypertension Take 1 tablet (20 mg total) by mouth every evening. 90 tablet 1 03/03/19 22 Active ACCU-CHEK NYDIA PLUS test stripIndications: Type 2 diabetes mellitus with diabetic nephropathy, with long-term current use of insulin ([facility]) Use to check blood sugar twice per [...] 05/30/2018 Chronic renal insufficiency, stage III (moderate) ([facility]) 05/16/2018 Congestive heart failure ([facility]) 04/29 Obstructive sleep apnea syndrome 04/29/2018 Anxiety 04/29/2018 Chronic obstructive pulmonary disease ([facility]) 03/07/2018 Diabetes mellitus ([facility]) 03/07/2018 Essential hypertension 03/07/2018 Hyperlipidemia 03/07/2018 Tobacco dependence syndrome 03/07/2018 Chronic hypoxemic respiratory failure ([facility]) 03/07/2018 Esophagitis 03/07/2018 Hypothyroidism 03/07/2018 [...] Other prematur e Heart Disease Sister 1 [place] Sister 2 Heart Sister 3 form heart problems Heart Sister 4 from heart problems [place] Son Open Heart Son Stroke Son (after [...] Comments Blood Pressure 108/64 01/30/2021 2:01 PM PLANNING ADVISOR Pulse 63 01/30/2021 2:01 PM PLANNING ADVISOR Temperature 36.1 ??C (97 ??F) 01/30/2021 2:01 PM PLANNING ADVISOR Respiratory Rate 20 01/30/2021 2:01 PM PLANNING ADVISOR Oxygen Saturation 91% 01/30/2021 2:01 PM PLANNING ADVISOR Inhaled Oxygen Concentration - - Weight 64.8 kg (142 lb 12.8 oz) 01/30/2021 2:01 PM PLANNING ADVISOR Height 152.4 cm (5') 01/30/2021 2:01 PM PLANNING ADVISOR Body Mass Index 27.89 01/30/2021 2:01 PM PLANNING ADVISOR Plan of Treatment Health Maintenance Due Date Last Done Comments ASCVD Statin 1940 Kidney Health Evaluation 1940 PHQ-2 (Physician [place]) 1953 Diabetes: Retinopathy Eye Exam 10/17/1959 DTaP, [...] 12/19/2020, 11/08/2019, Additional history exists PHQ-2 (Physician [place]) 02/16/2024 Meningococcal B Vaccine Aged Out No [...] nephropathy, with long-term current use of insulin ([facility]) LIPID PANEL Routine 04/30/2020 4:15 PM CDT Essential hypertension Type 2 diabetes mellitus with diabetic nephropathy, with long-term current use of insulin ([facility]) from Last 3 Months or Most Recently Relevant to Health Maintenance Results * A1C (BACK OFFICE) (01/30/2021) HGB A1C 7.0 % -[id number] [facility] 01/30/2021 us Jessee Gregg MD LABORATORY Final Resul t -[id number] [facility] [place] [address] [facility] [place] [address], * LIPID PANEL (04/30/2020 4:15 PM CDT) [...] LDL-C. Jamil CRUZ et al. PAUL. 2013;310(19): 9111-6115 (http://education.Masterseek.Craneware/faq/UVC512) CHOL/HDL RATIO 3.0 <5.0 (calc) [facility] t [facility] [place] [address] [address] [id number] from Last 3 Months or Most Recently Relevant to Health Maintenance Insurance MEDICARE
--- OUTSIDE RECORDS SUMMARY | 2024-03-12 05:41 | XMS_ITS | Referral Summary ---
Author Organization [facility] Address [address] [place] [address] Care Team Providers Care Outside Plant Supervisor Name Role Phone Unavailable Primary Care Provider Unavailabl e Source Comments [facility],non-owned Affiliates and Associated Physician Practices is amultiple site organization consisting of ambulatory clinics and hospital sitesin [place], [place], [place] and [place]. This disclosure is being madepursuant to the Care Everywhere program and may not contain all information available regarding this patient. Last updated 17.[facility] Encounters Date Type Department Care Team Description 01/30/2024 6:13 AM ACID PAINTER - 02/05/2024 2:09 PM [facility] Hospital Encounter [facility] [address] [id number] Aura Lancaster MD Vissa, Sriram, MD [place], [...] and heating? Not hard at all 01/30/2024 [facility] [place] [facility] Occup[facility] ional [facility] - Occupational Stress [...] any time in the past 12 m [facility], were you homeless or living in a [place] health care facility (including now)? No 01/30/2024 Sex and Gender Information Value Date Recorded Sex Assigned at Not on file Gender Identity Not on file Sexual Orientation Not on file Last Filed Vital Signs Vital Sign Reading Time Taken Comments Blood Pressure 143/58 02/05/2024 12:01 PM ACID PAINTER Pulse 79 02/05/2024 12:01 PM ACID PAINTER Temperature 36.2 ??C (97.1 ??F) 02/05/2024 8:01 AM CS T Respiratory Rate 26 02/05/2024 12:01 PM ACID PAINTER Oxygen Saturation 94% 02/05/2024 12:01 PM ACID PAINTER Inhaled Oxygen Concentration 35% 02/01/2024 1 1:38 PM ACID PAINTER Weight 64.6 kg (142 lb 5.6 oz) 01/30/2024 5:14 P M ACID PAINTER Height 152.4 cm (5') 01/30/2024 5:14 PM ACID PAINTER Body Mass Index 27.8 01/30/2024 5:14 PM ACID PAINTER Functional Status Functional Status Response Date of [...] CARDIAC RHYTHM STRIP ORDER 02/07/2024 10:59 PM ACID PAINTER GLUCOSE - POINT OF CARE Routine 02/05/2024 11:55 AM ACID PAINTER XR CHEST 1VW PORTABLE Routine 02/05/2024 9:40 AM ACID PAINTER Acute hypoxic respiratory failure (HCC) GLUCOSE - POINT OF CARE Routine 02/05/2024 8:38 AM ACID PAINTER GLUCOSE - POINT OF CARE Routine 02/05/2024 8:07 AM ACID PAINTER GLUCOSE - POINT OF CARE Routine 02/05/2024 8:02 AM ACID PAINTER MAGNESIUM BLOOD AM Draw 02/05/2024 5:32 AM ACID PAINTER RENAL FUNCTION PANEL AM Draw 02/05/2024 5:32 AM ACID PAINTER CBC W AUTO DIFFERENTIAL AM Draw 02/05/2024 5:32 AM ACID PAINTER GLUCOSE - POINT OF CARE Routine 02/04/2024 8:35 PM ACID PAINTER GLUCOSE - POINT OF CARE Routine 02/04/2024 5:07 PM ACID PAINTER GLUCOSE - POINT OF CARE Routine 02/04/2024 12:05 PM ACID PAINTER GLUCOSE - POINT OF CARE Routine 02/04/2024 8:36 AM ACID PAINTER GLUCOSE - POINT OF CARE Routine 02/04/2024 8:05 AM ACID PAINTER MAGNESIUM BLOOD AM Draw 02/04/2024 1:41 AM ACID PAINTER RENAL FUNCTION PANEL AM Draw 02/04/2024 1:41 AM ACID PAINTER CBC W AUTO DIFFERENTIAL AM Draw 02/04/2024 1:41 AM ACID PAINTER GLUCOSE - POINT OF CARE Routine 02/03/2024 8:21 PM ACID PAINTER GLUCOSE - POINT OF CARE Routine 02/03/2024 5:40 PM ACID PAINTER GLUCOSE - POINT OF CARE Routine 02/03/2024 12:10 PM ACID PAINTER BASIC METABOLIC PANEL (CALCIUM TOTAL) AM Draw 02/03/2024 11:01 AM ACID PAINTER GLUCOSE - POINT OF CARE Routine 02/03/2024 8:42 AM ACID PAINTER VANCOMYCIN LEVEL RANDOM Timed 02/02/2024 9:29 PM ACID PAINTER GLUCOSE - POINT OF CARE Routine 02/02/2024 8:47 PM ACID PAINTER GLUCOSE - POINT OF CARE Routine 02/02/2024 5:45 PM ACID PAINTER ECHO COMPLETE Routine 02/02/2024 1:00 PM ACID PAINTER Acute hypoxic respiratory failure (HCC) BASIC METABOLIC PANEL (CALCIUM TOTAL) AM Draw 02/02/2024 11:37 AM ACID PAINTER GLUCOSE - POINT OF CARE Routine 02/02/2024 11:33 AM ACID PAINTER XR CHEST 1VW PORTABLE Routine 02/02/2024 8:46 AM ACID PAINTER Acute hypoxic respiratory failure (HCC) GLUCOSE - POINT OF CARE Routine 02/02/2024 7:49 AM ACID PAINTER GLUCOSE - POINT OF CARE Routine 02/01/2024 8:33 PM ACID PAINTER VANCOMYCIN LEVEL RANDOM Routine 02/01/2024 6:17 PM ACID PAINTER GLUCOSE - POINT OF CARE Routine 02/01/2024 5:07 PM ACID PAINTER GLUCOSE - POINT OF CARE Routine 02/01/2024 11:46 AM ACID PAINTER CULTURE BLOOD Timed 02/01/2024 11:16 AM ACID PAINTER CULTURE BLOOD Timed 02/01/2024 11:12 AM ACID PAINTER GLUCOSE - POINT OF CARE Routine 02/01/2024 8:02 AM ACID PAINTER RENAL FUNCTION PANEL AM Draw 02/01/2024 4:26 AM ACID PAINTER GLUCOSE - POINT OF CARE Routine 01/31/2024 11:23 PM ACID PAINTER GLUCOSE - POINT OF CARE Routine 01/31/2024 10:52 PM ACID PAINTER GLUCOSE - POINT OF CARE Routine 01/31/2024 8:41 PM ACID PAINTER GLUCOSE - POINT OF CARE Routine 01/31/2024 6:14 PM ACID PAINTER GLUCOSE - POINT OF CARE Routine 01/31/2024 3:17 PM ACID PAINTER GLUCOSE - POINT OF CARE Routine 01/31/2024 12:14 PM ACID PAINTER GLUCOSE - POINT OF CARE Routine 01/31/2024 9:48 AM ACID PAINTER GLUCOSE - POINT OF CARE Routine 01/31/2024 8:13 AM ACID PAINTER BASIC METABOLIC PANEL (CALCIUM TOTAL) AM Draw 01/31/2024 5:09 AM ACID PAINTER PROCALCITONIN LEVEL AM Draw 01/31/2024 5 :09 AM ACID PAINTER CBC W/O DIFFERENTIAL AM Draw 01/31/2024 5:09 AM ACID PAINTER HEMOGLOBIN A1C Routine 01/31/2024 5:09 AM ACID PAINTER B-TYPE NATRIURETIC PEPTIDE Routine 01/31/2024 5:09 AM ACID PAINTER RESPIRATORY PANEL WITH SARS-COV-2 BY PCR (STL) Routine 01/31/2024 12:07 AM ACID PAINTER GLUCOSE - POINT OF CARE Routine 01/30/2024 10:09 PM ACID PAINTER GLUCOSE - POINT OF CARE Routine 01/30/2024 8:50 PM ACID PAINTER GLUCOSE - POINT OF CARE Routine 01/30/2024 5:36 PM ACID PAINTER GLUCOSE - POINT OF CARE Routine 01/30/2024 2:19 PM ACID PAINTER GLUCOSE - POINT OF CARE Routine 01/30/2024 12:54 PM ACID PAINTER GLUCOSE - POINT OF CARE Routine 01/30/2024 9:17 AM ACID PAINTER BLOOD GASES ARTERIAL Routine 01/30/2024 8:43 AM ACID PAINTER XR CHEST 1VW PORTABLE Routine 01/30/2024 8:30 AM ACID PAINTER Acute hypoxic respiratory failure (HCC) CBC W/O DIFFERENTIAL STAT 01/30/2024 6:38 AM ACID PAINTER COMPREHENSIVE METABOLIC PANEL STAT 01/30/2024 6:38 AM ACID PAINTER from Last 3 Months Results * CARDIAC RHYTHM STRIP ORDER (02/07/2024 10:59 PM ACID PAINTER) Narrative 02/07/2024 10:59 PM ACID PAINTER Ordered by an unspecified provider. Scanned Document CARDIAC SERVICES ORD ERABLES * (ABNORMAL) GLUCOSE - POINT OF CARE (02/05/2024 11:55 AM ACID PAINTER) Only the most recent of35 resultswithin the time period is included. Glucose WB/POC 181(H) 70 - 99 mg/dL 02/05/2024 12:42 PM ACID PAINTER [facility] Specimen Type Cap Fingerstick 2023 12:42 PM ACID PAINTER [facility] Blood BLOOD SPECIMEN / Unknown 02/05/2024 11:55 AM ACID PAINTER 02/05/2024 12:42 PM ACID PAINTER Boogie Stephens MD LAB - POINT OF CARE ORDERABLES [facility] [address] [place] [address] * XR Chest 1Vw Portable (02/05/2024 9:40 AM ACID PAINTER) Only the most recent of3 resultswithin the time period is included. Anatomical Region Laterality Modality Chest Computed Radiogr aphy 02/05/2024 10:0 6 AM ACID PAINTER Narrative 02/05/2024 10:06 AM ACID PAINTER PROCEDURE(s): XR CHEST 1VW PORTABLE DATE AND [...] CBC W AUTO DIFFERENTIAL (02/05/2024 5:32 AM ACID PAINTER) Only the most recent of2 resultswithin the time period is included. WBC 12.5(H) 4.0 - 10.7 x10E9/L 02/05/2024 5:54 AM ACID PAINTER [facility] RBC Count 4.33 3.90 - 5.20 x10E12/L 02/05/2024 5:54 AM ACID PAINTER [facility] Hemoglobin 12.0 11.9 - 15.8 g/dL 02/05/2024 5:54 AM ACID PAINTER [facility] Hematocrit 39.6 34.8 - 46.1 % 02/05/2024 5:54 AM ACID PAINTER [facility] MCV 91.5 80.0 - 98.0 fL 02/05/2024 5:54 AM ACID PAINTER [facility] MCH 27.7 26.7 - 33.6 pg 02/05/2024 5:54 AM [facility] MCHC 30.3(L) 31.7 - 36.3 g/dL 02/05/2024 5:54 AM [facility] RDW-CV 15.8(H) 11.3 - 14.8 % 02/05/2024 5:54 AM [facility] Platelet Count 305 150 - 420 x10E9/L 02/05/2024 5:54 AM [facility] MPV 10.6 7.8 - 11.4 fL 02/05/2024 5:54 AM [facility] Neutrophil % 65.7 41.0 - 74.0 % 02/05/2024 5:54 AM [facility] Lymphocyte % 20.8 17.0 - 47.0 % 02/05/2024 5:54 AM [facility] Monocyte % 7.3 3.0 - 11.0 % 02/05/2024 5:54 AM [facility] Eosinophil % 1.8 0.0 - 7.0 % 02/05/2024 5:54 AM [facility] Basophil % 0.6 0.0 - 1.6 % 02/05/2024 5:54 AM [facility] Immature Granulocytes % 3.8(H) 0.0 - 1.0 % 02/05/2024 5:54 AM [facility] Neutrophil Absolute 8.24(H) 1.60 - 7.50 x10E9/L 02/05/2024 5:54 AM [facility] Lymphocyte Absolute 2.61 1.00 - 4.40 x10E9/L 02/05/2024 5:54 AM [facility] Monocyte Absolute 0.91 0.15 - 1.00 x10E9/L 02/05/2024 5:54 AM [facility] Eosinophil Absolute 0.22 0.00 - 0.60 x10E9/L 02/05/2024 5:54 AM [facility] Basophil Absolute 0.07 0.00 - 0.13 x10E9/L 02/05/2024 5:54 AM [facility] NRBC 0.3(H) <=0.0 /100 WBC 02/05/2024 5:54 AM [facility] Blood BLOOD SPECIMEN / Unknown Venipuncture / Unknown 02/05/2024 5:32 AM ACID PAINTER 02/05/2024 5:40 AM ACID PAINTER Boogie Stephens MD LAB - HEMATOLOGY ORD ERABLES [facility] [address] [place] [address] * (ABNORMAL) RENAL FUNCTION PANEL (02/05/2024 5:32 AM ACID PAINTER) Only the most recent of3 resultswithin the time period is included. Glucose 55(L) 70 - 99 mg/dL 02/05/2024 5:57 AM [facility] Sodium 144 136 - 145 mmol/L 02/05/2024 5:57 AM [facility] Potassium 5.0 3.5 - 5.1 mmol/L 02/05/2024 5:57 AM [facility] Comment:Specimen Moderately Hemolyzed Chloride 105 98 - 107 mmol/L 02/05/2024 5:57 AM [facility] CO2 30(H) 22 - 29 mmol/L 02/05/2024 5:57 AM [facility] Calcium 8.8 8.4 - 10.4 mg/dL 02/05/2024 5:57 AM [facility] Anion Gap 9 6 - 16 mmol/L 02/05/2024 5:57 AM [facility] BUN 51(H) 7 - 26 mg/dL 02/05/2024 5:57 AM [facility] Creatinine 1.48(H) 0.57 - 1.11 mg/dL 02/05/2024 5:57 AM [facility] Albumin 2.6(L) 3.4 - 5.0 gm/dL 02/05/2024 5:57 AM [facility] Phosphorus 4.4 2.5 - 4.5 mg/dL 02/05/2024 5:57 AM [facility] eGFR by CKD-EPI 35(L) >=90 mL/min/1.7 3 m2 02/05/2024 5:57 AM [facility] Blood BLOOD SPECIMEN / Unknown Venipuncture / Unknown 02/05/2024 5:32 AM ACID PAINTER 02/05/2024 5:40 AM ACID PAINTER Boogie Stephens MD LAB - CHEMISTRY ORDFortunato GAYLE Performing Organization Address [facility] Co de Phone Number [facility] [address] [place], [place] [phone] * MAGNESIUM BLOOD (02/05/2024 5:32 AM ACID PAINTER) Only the most recent of2 resultswithin the time period is included. Magnesium 2.3 1.6 - 2.6 mg/dL 02/05/2024 5:56 AM [facility] Blood BLOOD SPECIMEN / Unknown Venipuncture / Unknown 02/05/2024 5:32 AM ACID PAINTER 02/05/2024 5:40 AM ACID PAINTER Boogie Stephens MD LAB - CHEMISTRY ANGEL GAYLE Performing Organization Address [facility] de Phone Number [facility] [address] [place] [address] * (ABNORMAL) BASIC METABOLIC PANEL (CALCIUM TOTAL) (02/03/2024 11:01 AM ACID PAINTER) Only the most recent of3 resultswithin the time period is included. Glucose 203(H) 70 - 99 mg/dL 02/03/2024 11:32 AM [facility] Sodium 146(H) 136 - 145 mmol/L 02/03/2024 11:32 AM [facility] Potassium 4.1 3.5 - 5.1 mmol/L 02/03/2024 11:32 AM [facility] Chloride 101 98 - 107 mmol/L 02/03/2024 11:32 AM [facility] CO2 31(H) 22 - 29 mmol/L 02/03/2024 11:32 AM [facility] Calcium 9.7 8.4 - 10.4 mg/dL 02/03/2024 11:32 AM [facility] Anion Gap 14 6 - 16 mmol/L 02/03/2024 11:32 AM [facility] BUN 43(H) 7 - 26 mg/dL 02/03/2024 11:32 AM [facility] Creatinine 1.43(H) 0.57 - 1.11 mg/dL 02/03/2024 11:32 AM ACID PAINTER [facility] eGFR by CKD-EPI 37(L) >=90 mL/min/1.7 3 m2 02/03/2024 11:32 AM ACID PAINTER [facility] Blood BLOOD SPECIMEN / Unknown Venipuncture / Unknown 02/03/2024 11:01 AM ACID PAINTER 02/03/2024 11:15 AM ACID PAINTER Boogie Stephens MD LAB - CHEMISTRY ANGEL GAYLE Performing Organization Address [facility] de Phone Number [facility] [address] [place] [address] * VANCOMYCIN LEVEL RANDOM (02/02/2024 9:29 PM ACID PAINTER) Only the most recent of2 resultswithin the time period is included. Pathologist [facility] Vancomycin Random 14.8 <=40.0 ug/mL 02/02/2024 9:52 PM ACID PAINTER [facility] Blood BLOOD SPECIMEN / Unknown Venipuncture / Unknown 02/02/2024 9:29 PM ACID PAINTER 02/02/2024 9:36 PM ACID PAINTER Narrative [facility] - 02/02/2024 9:52 PM ACID PAINTER No reference range available for random Vancomycin levels. All results interpreted by ordering physician. Boogie Stephens MD LAB - CHEMISTRY ANGEL GAYLE Performing Organization Address [facility] de Phone Number [facility] [address] [place] [address] * ECHO COMPLETE (02/02/2024 1:00 PM ACID PAINTER) LA vol index 0.026 l/m? ? ? [...] Region Laterality Modality Ultrasound 02/02/2024 9:42 AM ACID PAINTER Narrative 02/03/2024 9:14 AM ACID PAINTER Summary ??* The left ventricle is normal [...] 1940 Gender: ? Female Accession #: ? [id number] Ht: ? 60 in Wt: ? 142 [...] Kb Freire Attending Physician: ? Kb Freire Ambulatory Analyst: ? Arpita Dozier Left Ventricle ??The left [...] 9:42 AM Patient Status: I/P Study Site: [facility] Primary Location: [facility] EStudy Info Exam Type: ECHO COMPLETE Indications J96.01 - Acute hypoxic respiratory failure (HCC) Procedure(s) * A complete 2D, color Doppler, spectral Doppler, and M-Modetransthoracic echocardiogram was performed. Staff Referring Physician: Kb Freire Ordering Provider: Kb Freire Attending Physician: Kb Freire Ambulatory Analyst: Arpita Patrick Dozier Left Ventricle The left [...] CUPID * CULTURE BLOOD (02/01/2024 11:16 AM ACID PAINTER) Only the most recent of2 resultswithin the time period is included. Pathologist [facility] Culture No growth day 5 ELISABET 02/06/2024 2:31 PM ACID PAINTER [facility] Blood PERIPHERAL BLOOD / Unknown Venipuncture / Unknown 02/01/2024 11:16 AM ACID PAINTER 02/01/2024 11:27 AM ACID PAINTER Boogie Stephens MD LAB - MICROBIOLOGY O RDERABLES [facility] [address] [place] [address], [facility] [phone] * (ABNORMAL) PROCALCITONIN LEVEL (01/31/2024 5:09 AM ACID PAINTER) Procalcitonin 14.84(H) <0.10 ng/mL 01/31/2024 5:59 AM ACID PAINTER [facility] Blood BLOOD SPECIMEN / Unknown Venipuncture / Unknown 01/31/2024 5:09 AM ACID PAINTER 01/31/2024 5:17 AM ACID PAINTER Narrative [facility] - 01/31/2024 5:59 AM ACID PAINTER The change in procalcitonin (PCT) concentration over [...] Change in Procalcitonin Calculator is available at [email or web address] ?? If clinical picture has not improved and PCT remains high, reevaluate and consider treatment failure or other causes. Kaitlin Norris MD LAB - CHEMISTRY ANGEL GAYLE [facility] [address] [place] [address] * (ABNORMAL) HEMOGLOBIN A1C (01/31/2024 5:09 AM ACID PAINTER) [facility] [address] Hemoglobin A1c 6.8(H) <5.7 % 01/31/2024 5:29 AM [facility] Estimated Average Glucose 148 mg/dL 01/31/2024 5:29 AM [facility] Blood BLOOD SPECIMEN / Unknown Venipuncture / Unknown 01/31/2024 5:09 AM ACID PAINTER 01/31/2024 5:17 AM [facility] Narrative [facility] - 01/31/2024 5:29 AM [facility] HbA1c Interpretation: Normal: < 5.7% Pre-diabetes: 5.7-6.4% [...] Freire MD LAB - CHEMISTRY ANGEL GAYLE [facility] [address] [place] [address] * (ABNORMAL) CBC W/O DIFFERENTIAL (01/31/2024 5:09 AM [facility]) Only the most recent of2 resultswithin the time period is included. [facility] [address] WBC 15.8(H) 4.0 - 10.7 x10E9/L 01/31/2024 5:32 AM [facility] RBC Count 3.80(L) 3.90 - 5.20 x10E12/L 01/31/2024 5:32 AM ACID PAINTER [facility] Hemoglobin 10.5(L) 11.9 - 15.8 g/dL 01/31/2024 5:32 AM ACID PAINTER [facility] Hematocrit 35.7 34.8 - 46.1 % 01/31/2024 5:32 AM [facility] MCV 93.9 80.0 - 98.0 fL 01/31/2024 5:32 AM [facility] MCH 27.6 26.7 - 33.6 pg 01/31/2024 5:32 AM [facility] MCHC 29.4(L) 31.7 - 36.3 g/dL 01/31/2024 5:32 AM [facility] RDW-CV 14.9(H) 11.3 - 14.8 % 01/31/2024 5:32 AM [facility] Platelet Count 304 150 - 420 x10E9/L 01/31/2024 5:32 AM [facility] MPV 10.8 7.8 - 11.4 fL 01/31/2024 5:32 AM ACID PAINTER [facility] Blood BLOOD SPECIMEN / Unknown Venipuncture / Unknown 01/31/2024 5:09 AM ACID PAINTER 01/31/2024 5:17 AM ACID PAINTER Kaitlin Norris MD LAB - HEMATOLOGY ORD ERABLES Performing Organization Address City/[facility]/ZIP Co de Phone Number [facility] [address] [place], [place] [phone] * (ABNORMAL) B-TYPE NATRIURETIC PEPTIDE (01/31/2024 5:09 AM ACID PAINTER) BNP 1,514(H) <=100 pg/mL 01/31/2024 6:26 AM ACID PAINTER [facility] Blood BLOOD SPECIMEN / Unknown Venipuncture / Unknown 01/31/2024 5:09 AM ACID PAINTER 01/31/2024 5:17 AM ACID PAINTER Kb Freire MD LAB - CHEMISTRY ORDFortunato GAYLE [facility] [address] [place] [id number] * (ABNORMAL) RESPIRATORY PANEL WITH SARS-COV-2 BY PCR (STL) (01/31/2024 12:07 AM ACID PAINTER) Adenovirus PCR Not detected Not detected 01/31/2024 6:33 AM ACID PAINTER [facility] Coronavirus 229E PCR Not detected Not detected 01/31/2024 6:33 AM ACID PAINTER [facility] Coronavirus HKU1 PCR Not detected Not detected 01/31/2024 6:33 AM ACID PAINTER [facility] Coronavirus NL63 PCR Not detected Not detected 01/31/2024 6:33 AM ACID PAINTER [facility] Coronavirus OC43 PCR Not detected Not detected 01/31/2024 6:33 AM ACID PAINTER [facility] COVID-19 PCR Not detected Not detected 01/31/2024 6:33 AM ACID PAINTER [facility] Human Metapneumovirus PCR Not detected Not detected 01/31/2024 6:33 AM ACID PAINTER [facility] Human Rhinovirus/Enterov irus PCR Detected(A) Not detected 01/31/2024 6:33 AM ACID PAINTER [facility] Influenza A PCR Not detected Not detected 01/31/2024 6:33 AM ACID PAINTER [facility] Influenza B PCR Not detected Not detected 01/31/2024 6:33 AM ACID PAINTER [facility] Parainfluenza Virus 1 PCR Not detected Not detected 01/31/2024 6:33 AM ACID PAINTER [facility] Parainfluenza Virus 2 PCR Not detected Not detected 01/31/2024 6:33 AM ACID PAINTER [facility] Parainfluenza Virus 3 PCR Not detected Not detected 01/31/2024 6:33 AM ACID PAINTER [facility] Parainfluenza Virus 4 PCR Not detected Not detected 01/31/2024 6:33 AM ACID PAINTER [facility] Respiratory Syncytial Virus PCR Not detected Not detected 01/31/2024 6:33 AM ACID PAINTER [facility] Bordetella parapertussis PCR Not detected Not detected 01/31/2024 6:33 AM ACID PAINTER [facility] Bordetella pertussis PCR Not detected Not detected 01/31/2024 6:33 AM ACID PAINTER [facility] Chlamydia pneumoniae PCR Not detected Not detected 01/31/2024 6:33 AM ACID PAINTER [facility] Mycoplasma pneumoniae PCR Not detected Not detected 01/31/2024 6:33 AM [facility] Microbiology SPECIMEN FROM NASOPHARYNGEAL STRUCTURE / Unknown Collection / Unknown 01/31/2024 12:07 AM ACID PAINTER 01/31/2024 12:17 AM ACID PAINTER Narrative [facility] - 01/31/2024 6:33 AM ACID PAINTER Contact and Droplet Precautions Required. This nucleic amplification assay has received FDA authorization via the [employer]. Kaitlin Norris MD LAB - MICROBIOLOGY O RDERABLES [facility] [address] [place], [place] [address], [facility] [phone] * (ABNORMAL) BLOOD GASES ARTERIAL (01/30/2024 8:43 AM ACID PAINTER) pH Arterial 7.35 7.35 - 7.45 pH 01/30/2024 8:57 AM ACID PAINTER [facility] pO2 Arterial 99 80 - 100 mmHg 01/30/2024 8:57 AM ACID PAINTER [facility] RESP THERAP[facility] pCO2 Arterial 52(H) 35 - 45 mmHg 01/30/2024 8:57 AM ACID PAINTER [facility] HCO3 Arterial 28.7(H) 22.0 - 26.0 mmol/L 01/30/2024 8:57 AM ACID PAINTER [facility] RESP THERAP[facility] BE Arterial 2.1(H) -2.0 - 2.0 mmol/L 01/30/2024 8:57 AM ACID PAINTER [facility] O2 Saturation Arterial 99 90 - 100 % 01/30/2024 8:57 AM ACID PAINTER [facility] Solitario's Test Yes 01/30/2024 8:57 AM [facility] RESP THERAP[facility] Sample Site Right BA 01/30/2024 8:57 AM [facility] RESP THERAP[facility] Mode Bipap 01/30/2024 8:57 AM [facility] FI O2 50.0 % 01/30/2024 8:57 AM [facility] Mechanical Respiratory Rate (bpm) 16 01/30/2024 8:57 AM [facility] RESP [facility]ERAP[facility] BIPAP Insp Pressure (cmH2O) 12 01/30/2024 8:57 AM [facility] RESP THERAP[facility] BIPAP Exp Pressure (cmH2O) 6 01/30/2024 8:57 AM [facility] RESP THERAPY Blood, arterial ARTERIAL BLOOD SPECIMEN / Unknown 01/30/2024 8:43 AM [facility] 01/30/2024 8:43 AM [facility] Kb Freire MD LAB - BLOOD GASES OR DERABLES DP RESP THERAPY [id number] [phone] * (ABNORMAL) COMPREHENSIVE METABOLIC PANEL (01/30/2024 6:38 AM [facility]) Glucose 156(H) 70 - 99 mg/dL 01/30/2024 7:03 AM [facility] Sodium 145 136 - 145 mmol/L 01/30/2024 7:03 AM [facility] Potassium 4.9 3.5 - 5.1 mmol/L 01/30/2024 7:03 AM [facility] Chloride 106 98 - 107 mmol/L 01/30/2024 7:03 AM [facility] CO2 28 22 - 29 mmol/L 01/30/2024 7:03 AM [facility] Calcium 9.2 8.4 - 10.4 mg/dL 01/30/2024 7:03 AM [facility] Anion Gap 11 6 - 16 mmol/L 01/30/2024 7:03 AM [facility] BUN 46(H) 7 - 26 mg/dL 01/30/2024 7:03 AM [facility] Creatinine 1.60(H) 0.57 - 1.11 mg/dL 01/30/2024 7:03 AM [facility] Alkaline Phosphatase 110 40 - 150 U/L 01/30/2024 7:03 AM [facility] ALT 44 0 - 55 U/L 01/30/2024 7:03 AM [facility] AST 51(H) 5 - 34 U/L 01/30/2024 7:03 AM [facility] Protein Total 6.4 6.4 - 8.3 gm/dL 01/30/2024 7:03 AM [facility] Albumin 2.7(L) 3.4 - 5.0 gm/dL 01/30/2024 7:03 AM [facility] Bilirubin Total 0.3 0.2 - 1.2 mg/dL 01/30/2024 7:03 AM [facility] eGFR by CKD-EPI 32(L) >=90 mL/min/1.7 3 m2 01/30/2024 7:03 AM [facility] Blood BLOOD SPECIMEN / Unknown Venipuncture / Unknown 01/30/2024 6:38 AM [facility] 01/30/2024 6:42 AM [facility] Aura Lancaster MD LAB - CHEMISTRY OR DERABLES [facility] [address] [place] [address] from Last 3 Months Advance Directives * [...]
--- OUTSIDE RECORDS SUMMARY | 2024-03-12 05:41 | XMS_ITS | Continuity of Care Document ---
Author Organization [employer] [facility] Address [address] [address] [place] [address] Phone Care Team Providers Care Technical Manager [employer] Name Role Phone Jm Burrows MD Unavailable [...] Diagnoses Date Provider Providers Copied on Encounter [facility], [address], [place], [place], [address], [place] tel:[phone] SEC Faheem SOW Professional a comprehensive exam (chief complaint) FOLLOW-UP SURGERY NOS 4 Stormy Oneal. [address], [address], [place], [place], [address], [place]. tel:[phone] Referring Provider: Maulik Blanco, [id number], [place], [address] . tel:[phone] [facility], [address], [place], [place], [address], [place] [phone] SEC [place] JUANJOSE Professional a comprehensive exam (chief complaint) FOLLOW-UP SURGERY NOS 3 Stormy Oneal. [address], [address], [place], [place], [address], [place]. tel:[phone] Referring Provider: Maulik Blanco, [address], [place], [address] . tel:[phone] [facility], [address] [address], [place], [place], [address], [place] tel:[phone] SEC Faheem SWO Professional a comprehensive exam (chief complaint) FOLLOW-UP SURGERY NOS 3 Vani Agrawal. [address], [address], [place], [address], [place]. tel:[phone] Referring Provider: Maulik Blanco, [address], [place], [address] . tel:[phone] [facility], [address], [place], [place], [address], [place] [phone] Claudy CHAN [facility] No Information 3 Latrice Willingham. [address] [employer], [address], [place], [place], [address], [place]. tel:[phone] Referring Provider: Maulik Blanco, [facility] [employer] [address], [place], [address] . tel:[phone] [employer] [facility], [address] [place], [place] [address], [place], [place], [address], [place] tel:[phone] SEC Maurice Branham No Information 3 Latrice Willingham. [address] [employer] [address], [address], [place], [place], [address], [place]. tel:[phone] Referring Provider: Maulik Blanco, [facility] [employer] [address], [place], [address] . tel:[phone] [facility], [facility] [address], [place], [place], [address], [place] tel:[phone] SEC Maurice N Lindberg No Information 3 Latrice Willingham. [facility] [employer], [address], [place], [place], [address], [place]. tel:[phone] Pitzi [facility], [address] [address], [place], [place], [address], [place] tel:[phone] SEC Faheem SOW Professional a comprehensive exam (chief complaint) SENILE NUCLEAR CATARACTDMII OPHTH NT [facility] RETINOPATHY NOS 3 Latrice Willingham. [facility] [employer], [address], [place], [place], [address], [place]. tel:[phone] Referring Provider: Maulik Blanco, [facility] [employer] [address], [place], [address] . tel:[phone] [facility], [facility] [address], [place], [place], [address], [place] tel:[phone] [facility] No Information Oct- 6200 8 Philomena Chaneyn. [address] , [address], [place], [address], [place]. tel:[phone] Referring Provider: Deni Anderson, [address] [place], [address]. tel:[phone] Family History Family Member Type Diagnosis Age At Onset No Information Payers Payer name Insurance type Covered constitution party ID Authoriza tion(s) No Information Social [...]
--- OUTSIDE RECORDS SUMMARY | 2024-03-12 05:41 | XMS_ITS | Patient Health Summary ---
Author Organization [facility] Address [address] [place] [address] Care Team Providers Care Audiometric Technician Name Role Phone Unavailable Primary Care Provider Unavailabl e Note from [facility],non-owned Affiliates and Associated Physician Practices is amultiple site organization consisting of ambulatory clinics and hospital sitesin [place], [place], [place] and [place]. This disclosure is being madepursuant to the Care Everywhere program and may not contain all information available regarding this patient. Last updated 17.[facility] Allergies No known active allergies Medications * [...] and heating? Not hard at all 01/30/2024 [facility] - Occupational Stress [...] any time in the past [address] [facility], were you homeless or living in a chcf (including now)? No 01/30/2024 Sex and Gender Information Value Date Recorded Sex Assigned at Not on file Gender Identity Not on file Sexual Orientation Not on file Last Filed Vital Signs Vital Sign Reading Time Taken Comments Blood Pressure 143/58 02/05/2024 12:01 PM HEALTH RECORD TECHNICIAN Pulse 79 02/05/2024 12:01 PM HEALTH RECORD TECHNICIAN Temperature 36.2 ??C (97.1 ??F) 02/05/2024 8:01 AM CS T Respiratory Rate 26 02/05/2024 12:01 PM HEALTH RECORD TECHNICIAN Oxygen Saturation 94% 02/05/2024 12:01 PM HEALTH RECORD TECHNICIAN Inhaled Oxygen Concentration 35% 02/01/2024 1 1:38 PM HEALTH RECORD TECHNICIAN Weight 64.6 kg (142 lb 5.6 oz) 01/30/2024 5:14 P M HEALTH RECORD TECHNICIAN Height 152.4 cm (5') 01/30/2024 5:14 PM HEALTH RECORD TECHNICIAN Body Mass Index 27.8 01/30/2024 5:14 PM HEALTH RECORD TECHNICIAN Procedures * CARDIAC RHYTHM STRIP ORDER(Performed 02/07/2024) [...] CARDIAC RHYTHM STRIP ORDER (02/07/2024 10:59 PM HEALTH RECORD TECHNICIAN) Narrative 02/07/2024 10:59 PM HEALTH RECORD TECHNICIAN Ordered by an unspecified provider. Scanned Document CARDIAC SERVICES ORD ERABLES * (ABNORMAL) GLUCOSE - POINT OF CARE (02/05/2024 11:55 AM HEALTH RECORD TECHNICIAN) Only the most recent of35 resultswithin the time period is included. Glucose WB/POC 181(H) 70 - 99 mg/dL 02/05/2024 12:42 PM HEALTH RECORD TECHNICIAN [facility] Specimen Type Cap Fingerstick 2023 12:42 PM HEALTH RECORD TECHNICIAN [facility] Blood BLOOD SPECIMEN / Unknown 02/05/2024 11:55 AM HEALTH RECORD TECHNICIAN 02/05/2024 12:42 PM HEALTH RECORD TECHNICIAN Boogie Stephens MD LAB - POINT OF CARE ORDERABLES Performing Organization Address City/State/[facility] Co de Phone Number [facility] [address] [place] [phone] * XR Chest 1Vw Portable (02/05/2024 9:40 AM HEALTH RECORD TECHNICIAN) Only the most recent of3 resultswithin the time period is included. Anatomical Region Laterality Modality Chest Computed Radiogr aphy 02/05/2024 10:0 6 AM HEALTH RECORD TECHNICIAN Narrative 02/05/2024 10:06 AM HEALTH RECORD TECHNICIAN PROCEDURE(s): XR CHEST 1VW PORTABLE DATE AND [...] CBC W AUTO DIFFERENTIAL (02/05/2024 5:32 AM HEALTH RECORD TECHNICIAN) Only the most recent of2 resultswithin the time period is included. WBC 12.5(H) 4.0 - 10.7 x10E9/L 02/05/2024 5:54 AM HEALTH RECORD TECHNICIAN [facility] RBC Count 4.33 3.90 - 5.20 x10E12/L 02/05/2024 5:54 AM HEALTH RECORD TECHNICIAN [facility] Hemoglobin 12.0 11.9 - 15.8 g/dL 02/05/2024 5:54 AM HEALTH RECORD TECHNICIAN [facility] Hematocrit 39.6 34.8 - 46.1 % 02/05/2024 5:54 AM HEALTH RECORD TECHNICIAN [facility] MCV 91.5 80.0 - 98.0 fL 02/05/2024 5:54 AM HEALTH RECORD TECHNICIAN [facility] MCH 27.7 26.7 - 33.6 pg 02/05/2024 5:54 AM HEALTH RECORD TECHNICIAN [facility] MCHC 30.3(L) 31.7 - 36.3 g/dL 02/05/2024 5:54 AM HEALTH RECORD TECHNICIAN [facility] RDW-CV 15.8(H) 11.3 - 14.8 % 02/05/2024 5:54 AM HEALTH RECORD TECHNICIAN [facility] Platelet Count 305 150 - 420 x10E9/L 02/05/2024 5:54 AM HEALTH RECORD TECHNICIAN [facility] MPV 10.6 7.8 - 11.4 fL 02/05/2024 5:54 AM HEALTH RECORD TECHNICIAN [facility] Neutrophil % 65.7 41.0 - 74.0 % 02/05/2024 5:54 AM [facility] Lymphocyte % 20.8 17.0 - 47.0 % 02/05/2024 5:54 AM [facility] Monocyte % 7.3 3.0 - 11.0 % 02/05/2024 5:54 AM [facility] Eosinophil % 1.8 0.0 - 7.0 % 02/05/2024 5:54 AM [facility] Basophil % 0.6 0.0 - 1.6 % 02/05/2024 5:54 AM [facility] Immature Granulocytes % 3.8(H) 0.0 - 1.0 % 02/05/2024 5:54 AM [facility] Neutrophil Absolute 8.24(H) 1.60 - 7.50 x10E9/L 02/05/2024 5:54 AM [facility] Lymphocyte Absolute 2.61 1.00 - 4.40 x10E9/L 02/05/2024 5:54 AM [facility] Monocyte Absolute 0.91 0.15 - 1.00 x10E9/L 02/05/2024 5:54 AM [facility] Eosinophil Absolute 0.22 0.00 - 0.60 x10E9/L 02/05/2024 5:54 AM [facility] Basophil Absolute 0.07 0.00 - 0.13 x10E9/L 02/05/2024 5:54 AM [facility] NRBC 0.3(H) <=0.0 /100 WBC 02/05/2024 5:54 AM [facility] Blood BLOOD SPECIMEN / Unknown Venipuncture / Unknown 02/05/2024 5:32 AM HEALTH RECORD TECHNICIAN 02/05/2024 5:40 AM HEALTH RECORD TECHNICIAN Boogie Stephens MD LAB - HEMATOLOGY ORD ERABLES [facility] [address] [place] [address] * (ABNORMAL) RENAL FUNCTION PANEL (02/05/2024 5:32 AM HEALTH RECORD TECHNICIAN) Only the most recent of3 resultswithin the time period is included. Glucose 55(L) 70 - 99 mg/dL 02/05/2024 5:57 AM [facility] Sodium 144 136 - 145 mmol/L 02/05/2024 5:57 AM [facility] Potassium 5.0 3.5 - 5.1 mmol/L 02/05/2024 5:57 AM [facility] Comment:Specimen Moderately Hemolyzed Chloride 105 98 - 107 mmol/L 02/05/2024 5:57 AM [facility] CO2 30(H) 22 - 29 mmol/L 02/05/2024 5:57 AM [facility] Calcium 8.8 8.4 - 10.4 mg/dL 02/05/2024 5:57 AM [facility] Anion Gap 9 6 - 16 mmol/L 02/05/2024 5:57 AM [facility] BUN 51(H) 7 - 26 mg/dL 02/05/2024 5:57 AM [facility] Creatinine 1.48(H) 0.57 - 1.11 mg/dL 02/05/2024 5:57 AM [facility] Albumin 2.6(L) 3.4 - 5.0 gm/dL 02/05/2024 5:57 AM [facility] Phosphorus 4.4 2.5 - 4.5 mg/dL 02/05/2024 5:57 AM [facility] eGFR by CKD-EPI 35(L) >=90 mL/min/1.7 3 m2 02/05/2024 5:57 AM [facility] Blood BLOOD SPECIMEN / Unknown Venipuncture / Unknown 02/05/2024 5:32 AM HEALTH RECORD TECHNICIAN 02/05/2024 5:40 AM HEALTH RECORD TECHNICIAN Boogie Stephens MD LAB - CHEMISTRY ANGEL GAYLE [facility] [address] [place] [address] * MAGNESIUM BLOOD (02/05/2024 5:32 AM HEALTH RECORD TECHNICIAN) Only the most recent of2 resultswithin the time period is included. Magnesium 2.3 1.6 - 2.6 mg/dL 02/05/2024 5:56 AM [facility] Blood BLOOD SPECIMEN / Unknown Venipuncture / Unknown 02/05/2024 5:32 AM HEALTH RECORD TECHNICIAN 02/05/2024 5:40 AM HEALTH RECORD TECHNICIAN Boogie Stephens MD LAB - CHEMISTRY ANGEL GAYLE [facility] [address] [place] [address] * (ABNORMAL) BASIC METABOLIC PANEL (CALCIUM TOTAL) (02/03/2024 11:01 AM HEALTH RECORD TECHNICIAN) Only the most recent of3 resultswithin the time period is included. Glucose 203(H) 70 - 99 mg/dL 02/03/2024 11:32 AM [facility] Sodium 146(H) 136 - 145 mmol/L 02/03/2024 11:32 AM [facility] Potassium 4.1 3.5 - 5.1 mmol/L 02/03/2024 11:32 AM [facility] Chloride 101 98 - 107 mmol/L 02/03/2024 11:32 AM [facility] CO2 31(H) 22 - 29 mmol/L 02/03/2024 11:32 AM [facility] Calcium 9.7 8.4 - 10.4 mg/dL 02/03/2024 11:32 AM [facility] Anion Gap 14 6 - 16 mmol/L 02/03/2024 11:32 AM [facility] BUN 43(H) 7 - 26 mg/dL 02/03/2024 11:32 AM [facility] Creatinine 1.43(H) 0.57 - 1.11 mg/dL 02/03/2024 11:32 AM [facility] eGFR by CKD-EPI 37(L) >=90 mL/min/1.7 3 m2 02/03/2024 11:32 AM [facility] Blood BLOOD SPECIMEN / Unknown Venipuncture / Unknown 02/03/2024 11:01 AM HEALTH RECORD TECHNICIAN 02/03/2024 11:15 AM HEALTH RECORD TECHNICIAN Boogie Stephens MD LAB - CHEMISTRY ANGEL GAYLE Performing Organization Address [facility] Co de Phone Number [facility] [address] [place] [address] * VANCOMYCIN LEVEL RANDOM (02/02/2024 9:29 PM HEALTH RECORD TECHNICIAN) Only the most recent of2 resultswithin the time period is included. Vancomycin Random 14.8 <=40.0 ug/mL 02/02/2024 9:52 PM HEALTH RECORD TECHNICIAN [facility] Blood BLOOD SPECIMEN / Unknown Venipuncture / Unknown 02/02/2024 9:29 PM HEALTH RECORD TECHNICIAN 02/02/2024 9:36 PM HEALTH RECORD TECHNICIAN Narrative [facility] - 02/02/2024 9:52 PM HEALTH RECORD TECHNICIAN No reference range available for random Vancomycin levels. All results interpreted by ordering physician. Boogie Stephens MD LAB - CHEMISTRY ANGEL GAYLE Performing Organization Address [facility] de Phone Number [facility] [address] [place] [address] * ECHO COMPLETE (02/02/2024 1:00 PM HEALTH RECORD TECHNICIAN) LA vol index 0.026 l/m? ? ? [...] Region Laterality Modality Ultrasound 02/02/2024 9:42 AM HEALTH RECORD TECHNICIAN Narrative 02/03/2024 9:14 AM HEALTH RECORD TECHNICIAN Summary ??* The left ventricle is normal [...] 1940 Gender: ? Female Accession #: ? [id number] Ht: ? 60 in Wt: ? 142 [...] Kb Freire Attending Physician: ? Kb Freire Supervisor Rides: ? Darcalvinsangita Nguyen Tasia Left Ventricle ??The [...] AM Patient Status: I/P Study Site: [facility] Primary Location: [facility] EStudy Info Exam Type: ECHO COMPLETE Indications J96.01 - Acute hypoxic respiratory failure (HCC) Procedure(s) * A complete 2D, color Doppler, spectral Doppler, and M-Modetransthoracic echocardiogram was performed. Staff Referring Physician: Kb Freire Ordering Provider: Kb Freire Attending Physician: Kb Freire Supervisor Rides: Arpita Dozier Left Ventricle The left ventricle [...] CUPID * CULTURE BLOOD (02/01/2024 11:16 AM HEALTH RECORD TECHNICIAN) Only the most recent of2 resultswithin the time period is included. Culture No growth day 5 ELISABET 02/06/2024 2:31 PM HEALTH RECORD TECHNICIAN [facility] Blood PERIPHERAL BLOOD / Unknown Venipuncture / Unknown 02/01/2024 11:16 AM HEALTH RECORD TECHNICIAN 02/01/2024 11:27 AM HEALTH RECORD TECHNICIAN Boogie Stephens MD LAB - MICROBIOLOGY O RDERABLES [facility] [address] [place], [place] [address], [facility] [phone] * (ABNORMAL) PROCALCITONIN LEVEL (01/31/2024 5:09 AM HEALTH RECORD TECHNICIAN) Procalcitonin 14.84(H) <0.10 ng/mL 01/31/2024 5:59 AM HEALTH RECORD TECHNICIAN [facility] Blood BLOOD SPECIMEN / Unknown Venipuncture / Unknown 01/31/2024 5:09 AM HEALTH RECORD TECHNICIAN 01/31/2024 5:17 AM HEALTH RECORD TECHNICIAN Narrative [facility] - 01/31/2024 5:59 AM HEALTH RECORD TECHNICIAN The change in procalcitonin (PCT) concentration over [...] Change in Procalcitonin Calculator is available at [email or web address] Metrics ?? If clinical picture has not improved and PCT remains high, reevaluate and consider treatment failure or other causes. Kaitlin Norris MD LAB - CHEMISTRY ANGEL GAYLE [facility] Organization Address City/State/[facility] Co de Phone Number [facility] [address] [place] [address] * (ABNORMAL) HEMOGLOBIN A1C (01/31/2024 5:09 AM HEALTH RECORD TECHNICIAN) Hemoglobin A1c 6.8(H) <5.7 % 01/31/2024 5:29 AM HEALTH RECORD TECHNICIAN [facility] Estimated Average Glucose 148 mg/dL 01/31/2024 5:29 AM HEALTH RECORD TECHNICIAN [facility] Blood BLOOD SPECIMEN / Unknown Venipuncture / Unknown 01/31/2024 5:09 AM HEALTH RECORD TECHNICIAN 01/31/2024 5:17 AM HEALTH RECORD TECHNICIAN Narrative [facility] - 01/31/2024 5:29 AM HEALTH RECORD TECHNICIAN HbA1c Interpretation: Normal: < 5.7% Pre-diabetes: 5.7-6.4% [...] Freire MD LAB - CHEMISTRY ANGEL GAYLE [facility] Organization Address City/State/ZIP Co de Phone Number [facility] [address] [place] [address] * (ABNORMAL) CBC W/O DIFFERENTIAL (01/31/2024 5:09 AM HEALTH RECORD TECHNICIAN) Only the most recent of2 resultswithin the time period is included. WBC 15.8(H) 4.0 - 10.7 x10E9/L 01/31/2024 5:32 AM HEALTH RECORD TECHNICIAN [facility] RBC Count 3.80(L) 3.90 - 5.20 x10E12/L 01/31/2024 5:32 AM HEALTH RECORD TECHNICIAN [facility] Hemoglobin 10.5(L) 11.9 - 15.8 g/dL 01/31/2024 5:32 AM HEALTH RECORD TECHNICIAN [facility] Hematocrit 35.7 34.8 - 46.1 % 01/31/2024 5:32 AM HEALTH RECORD TECHNICIAN [facility] MCV 93.9 80.0 - 98.0 fL 01/31/2024 5:32 AM HEALTH RECORD TECHNICIAN [facility] MCH 27.6 26.7 - 33.6 pg 01/31/2024 5:32 AM [facility] MCHC 29.4(L) 31.7 - 36.3 g/dL 01/31/2024 5:32 AM [facility] RDW-CV 14.9(H) 11.3 - 14.8 % 01/31/2024 5:32 AM [facility] Platelet Count 304 150 - 420 x10E9/L 01/31/2024 5:32 AM [facility] MPV 10.8 7.8 - 11.4 fL 01/31/2024 5:32 AM [facility] Blood BLOOD SPECIMEN / Unknown Venipuncture / Unknown 01/31/2024 5:09 AM HEALTH RECORD TECHNICIAN 01/31/2024 5:17 AM HEALTH RECORD TECHNICIAN Kaitlin Norris MD LAB - HEMATOLOGY ORD ERABLES Performing Organization Address City/[facility]/ZIP Co de Phone Number [facility] [address] [place] [address] * (ABNORMAL) B-TYPE NATRIURETIC PEPTIDE (01/31/2024 5:09 AM HEALTH RECORD TECHNICIAN) [facility] BNP 1,514(H) <=100 pg/mL 01/31/2024 6:26 AM [facility] Blood BLOOD SPECIMEN / Unknown Venipuncture / Unknown 01/31/2024 5:09 AM HEALTH RECORD TECHNICIAN 01/31/2024 5:17 AM HEALTH RECORD TECHNICIAN Kb Freire MD LAB - CHEMISTRY ANGEL GAYLE [facility] [address] [place] [address] * (ABNORMAL) RESPIRATORY PANEL WITH SARS-COV-2 BY PCR ([facility]) (01/31/2024 12:07 AM HEALTH RECORD TECHNICIAN) [facility] Adenovirus PCR Not detected Not detected 01/31/2024 6:33 AM [facility] Coronavirus 229E PCR Not detected Not detected 01/31/2024 6:33 AM [facility] Coronavirus HKU1 PCR Not detected Not detected 01/31/2024 6:33 AM HEALTH RECORD TECHNICIAN [facility] Coronavirus NL63 PCR Not detected Not detected 01/31/2024 6:33 AM HEALTH RECORD TECHNICIAN [facility] Coronavirus OC43 PCR Not detected Not detected 01/31/2024 6:33 AM HEALTH RECORD TECHNICIAN [facility] COVID-19 PCR Not detected Not detected 01/31/2024 6:33 AM HEALTH RECORD TECHNICIAN [facility] Human Metapneumovirus PCR Not detected Not detected 01/31/2024 6:33 AM HEALTH RECORD TECHNICIAN [facility] Human Rhinovirus/Enterov irus PCR Detected(A) Not detected 01/31/2024 6:33 AM HEALTH RECORD TECHNICIAN [facility] Influenza A PCR Not detected Not detected 01/31/2024 6:33 AM HEALTH RECORD TECHNICIAN [facility] Influenza B PCR Not detected Not detected 01/31/2024 6:33 AM HEALTH RECORD TECHNICIAN [facility] Parainfluenza Virus 1 PCR Not detected Not detected 01/31/2024 6:33 AM HEALTH RECORD TECHNICIAN [facility] Parainfluenza Virus 2 PCR Not detected Not detected 01/31/2024 6:33 AM HEALTH RECORD TECHNICIAN [facility] Parainfluenza Virus 3 PCR Not detected Not detected 01/31/2024 6:33 AM HEALTH RECORD TECHNICIAN [facility] Parainfluenza Virus 4 PCR Not detected Not detected 01/31/2024 6:33 AM HEALTH RECORD TECHNICIAN [facility] Respiratory Syncytial Virus PCR Not detected Not detected 01/31/2024 6:33 AM HEALTH RECORD TECHNICIAN [facility] Bordetella parapertussis PCR Not detected Not detected 01/31/2024 6:33 AM HEALTH RECORD TECHNICIAN [facility] Bordetella pertussis PCR Not detected Not detected 01/31/2024 6:33 AM HEALTH RECORD TECHNICIAN [facility] Chlamydia pneumoniae PCR Not detected Not detected 01/31/2024 6:33 AM HEALTH RECORD TECHNICIAN [facility] Mycoplasma pneumoniae PCR Not detected Not detected 01/31/2024 6:33 AM HEALTH RECORD TECHNICIAN [facility] Microbiology SPECIMEN FROM NASOPHARYNGEAL STRUCTURE / Unknown Collection / Unknown 01/31/2024 12:07 AM HEALTH RECORD TECHNICIAN 01/31/2024 12:17 AM HEALTH RECORD TECHNICIAN [facility] - 01/31/2024 6:33 AM HEALTH RECORD TECHNICIAN Contact and Droplet Precautions Required. This nucleic amplification assay has received FDA authorization via the [employer]. Kaitlin Norris MD LAB - MICROBIOLOGY O RDERABLES [facility] [address] [place] [address] [phone] * (ABNORMAL) BLOOD GASES ARTERIAL (01/30/2024 8:43 AM HEALTH RECORD TECHNICIAN) pH Arterial 7.35 7.35 - 7.45 pH 01/30/2024 8:57 AM HEALTH RECORD TECHNICIAN [facility] pO2 Arterial 99 80 - 100 mmHg 01/30/2024 8:57 AM HEALTH RECORD TECHNICIAN [facility] pCO2 Arterial 52(H) 35 - 45 mmHg 01/30/2024 8:57 AM HEALTH RECORD TECHNICIAN [facility] HCO3 Arterial 28.7(H) 22.0 - 26.0 mmol/L 01/30/2024 8:57 AM HEALTH RECORD TECHNICIAN [facility] BE Arterial 2.1(H) -2.0 - 2.0 mmol/L 01/30/2024 8:57 AM HEALTH RECORD TECHNICIAN [facility] O2 Saturation Arterial 99 90 - 100 % 01/30/2024 8:57 AM HEALTH RECORD TECHNICIAN [facility] Solitario's Test Yes 01/30/2024 8:57 AM HEALTH RECORD TECHNICIAN [facility] Sample Site Right BA 01/30/2024 8:57 AM HEALTH RECORD TECHNICIAN [facility] Mode Bipap 01/30/2024 8:57 AM HEALTH RECORD TECHNICIAN [facility] FI O2 50.0 % 01/30/2024 8:57 AM HEALTH RECORD TECHNICIAN [facility] Mechanical Respiratory Rate (bpm) 16 01/30/2024 8:57 AM HEALTH RECORD TECHNICIAN [facility] BIPAP Insp Pressure (cmH2O) 12 01/30/2024 8:57 AM HEALTH RECORD TECHNICIAN [facility] BIPAP Exp Pressure (cmH2O) 6 01/30/2024 8:57 AM HEALTH RECORD TECHNICIAN [facility] Blood, arterial ARTERIAL BLOOD SPECIMEN / Unknown 01/30/2024 8:43 AM HEALTH RECORD TECHNICIAN 01/30/2024 8:43 AM HEALTH RECORD TECHNICIAN Kb Freire MD LAB - BLOOD GASES OR DERABLES [facility] [address] [place], [place] [address] [phone] * (ABNORMAL) COMPREHENSIVE METABOLIC PANEL (01/30/2024 6:38 AM [facility]) [facility] Glucose 156(H) 70 - 99 mg/dL 01/30/2024 7:03 AM [facility] Sodium 145 136 - 145 mmol/L 01/30/2024 7:03 AM [facility] Potassium 4.9 3.5 - 5.1 mmol/L 01/30/2024 7:03 AM [facility] Chloride 106 98 - 107 mmol/L 01/30/2024 7:03 AM [facility] CO2 28 22 - 29 mmol/L 01/30/2024 7:03 AM [facility] Calcium 9.2 8.4 - 10.4 mg/dL 01/30/2024 7:03 AM [facility] Anion Gap 11 6 - 16 mmol/L 01/30/2024 7:03 AM [facility] BUN 46(H) 7 - 26 mg/dL 01/30/2024 7:03 AM [facility] Creatinine 1.60(H) 0.57 - 1.11 mg/dL 01/30/2024 7:03 AM [facility] Alkaline Phosphatase 110 40 - 150 U/L 01/30/2024 7:03 AM [facility] ALT 44 0 - 55 U/L 01/30/2024 7:03 AM [facility] AST 51(H) 5 - 34 U/L 01/30/2024 7:03 AM [facility] Protein Total 6.4 6.4 - 8.3 gm/dL 01/30/2024 7:03 AM [facility] Albumin 2.7(L) 3.4 - 5.0 gm/dL 01/30/2024 7:03 AM [facility] Bilirubin Total 0.3 0.2 - 1.2 mg/dL 01/30/2024 7:03 AM [facility] eGFR by CKD-EPI 32(L) >=90 mL/min/1.7 3 m2 01/30/2024 7:03 AM [facility] Blood BLOOD SPECIMEN / Unknown Venipuncture / Unknown 01/30/2024 6:38 AM [facility] 01/30/2024 6:42 AM HEALTH RECORD TECHNICIAN Aura Francis Lancaster MD LAB - CHEMISTRY OR DERABLES [facility] [address] [place] [address]
--- OUTSIDE RECORDS SUMMARY | 2024-03-12 05:41 | XMS_ITS | Clinical Summary ---
Author Organization [facility] SmartMenuCard Address [address] [place] [address] Care Team Providers Care Stair Builder Name Role Phone Unavailable Primary Care Provider Unavailabl e Source Comments [facility],non-owned Affiliates and Associated Physician Practices is amultiple site organization consisting of ambulatory clinics and hospital sitesin [place], [place], [place] and [place]. This disclosure is being madepursuant to the Care Everywhere program and may not contain all information available regarding this patient. Last updated 17.[facility] [employer] Allergies No known active allergies Medications * [...] Department Care Team Description 01/30/2024 6:13 AM [employer]ET[employer] - 02/05/2024 2:09 PM [facility] Hospital Encounter [address] [place] [address] Aura Lancaster MD Vissa, Sriram, MD [place], [...] heating? Not hard at all 01/30/2024 [facility] [place] of Occupat ional Health - Occupational Stress [...] any time in the past 12 m [facility], were you homeless or living in a half-way (including now)? No 01/30/2024 Sex and Gender Information Value Date Recorded Sex Assigned at Not on file Gender Identity Not on file Sexual Orientation Not on file Last Filed Vital Signs Vital Sign Reading Time Taken Comments Blood Pressure 143/58 02/05/2024 12:01 PM [employer] Pulse 79 02/05/2024 12:01 PM [employer] Temperature 36.2 ??C (97.1 ??F) 02/05/2024 8:01 AM CS T Respiratory Rate 26 02/05/2024 12:01 PM [employer] Oxygen Saturation 94% 02/05/2024 12:01 PM [employer] Inhaled Oxygen Concentration 35% 02/01/2024 1 1:38 PM [employer] Weight 64.6 kg (142 lb 5.6 oz) 01/30/2024 5:14 P M [employer] Height 152.4 cm (5') 01/30/2024 5:14 PM [employer] Body Mass Index 27.8 01/30/2024 5:14 PM [employer] Plan of Treatment Health Maintenance Due Date [...] CARDIAC RHYTHM STRIP ORDER 02/07/2024 10:59 PM [employer] GLUCOSE - POINT OF CARE Routine 02/05/2024 11:55 AM [employer] XR CHEST 1VW PORTABLE Routine 02/05/2024 9:40 AM [employer] Acute hypoxic respiratory failure (HCC) GLUCOSE - POINT OF CARE Routine 02/05/2024 8:38 AM [employer] GLUCOSE - POINT OF CARE Routine 02/05/2024 8:07 AM S[employer]ET[employer] GLUCOSE - POINT OF CARE Routine 02/05/2024 8:02 AM [employer] MAGNESIUM BLOOD AM Draw 02/05/2024 5:32 AM [employer] RENAL FUNCTION PANEL AM Draw 02/05/2024 5:32 AM [employer] CBC W AUTO DIFFERENTIAL AM Draw 02/05/2024 5:32 AM [employer] GLUCOSE - POINT OF CARE Routine 02/04/2024 8:35 PM S[employer] GLUCOSE - POINT OF CARE Routine 02/04/2024 5:07 PM [employer] GLUCOSE - POINT OF CARE Routine 02/04/2024 12:05 PM S[employer] GLUCOSE - POINT OF CARE Routine 02/04/2024 8:36 AM S[employer]ET[employer] GLUCOSE - POINT OF CARE Routine 02/04/2024 8:05 AM [employer] MAGNESIUM BLOOD AM Draw 02/04/2024 1:41 AM S[employer] RENAL FUNCTION PANEL AM Draw 02/04/2024 1:41 AM [employer] CBC W AUTO DIFFERENTIAL AM Draw 02/04/2024 1:41 AM [employer] GLUCOSE - POINT OF CARE Routine 02/03/2024 8:21 PM [employer] GLUCOSE - POINT OF CARE Routine 02/03/2024 5:40 PM [employer] GLUCOSE - POINT OF CARE Routine 02/03/2024 12:10 PM [employer] BASIC METABOLIC PANEL (CALCIUM TOTAL) AM Draw 02/03/2024 11:01 AM [employer] GLUCOSE - POINT OF CARE Routine 02/03/2024 8:42 AM [employer] VANCOMYCIN LEVEL RANDOM Timed 02/02/2024 9:29 PM [employer] GLUCOSE - POINT OF CARE Routine 02/02/2024 8:47 PM [employer] GLUCOSE - POINT OF CARE Routine 02/02/2024 5:45 PM [employer] ECHO COMPLETE Routine 02/02/2024 1:00 PM [employer] Acute hypoxic respiratory failure (HCC) BASIC METABOLIC PANEL (CALCIUM TOTAL) AM Draw 02/02/2024 11:37 AM S[employer] GLUCOSE - POINT OF CARE Routine 02/02/2024 11:33 AM S[employer] XR CHEST 1VW PORTABLE Routine 02/02/2024 8:46 AM S[employer] Acute hypoxic respiratory failure (HCC) GLUCOSE - POINT OF CARE Routine 02/02/2024 7:49 AM S[employer] GLUCOSE - POINT OF CARE Routine 02/01/2024 8:33 PM [employer] VANCOMYCIN LEVEL RANDOM Routine 02/01/2024 6:17 PM S[employer] GLUCOSE - POINT OF CARE Routine 02/01/2024 5:07 PM S[employer]ET[employer] GLUCOSE - POINT OF CARE Routine 02/01/2024 11:46 AM S[employer] CULTURE BLOOD Timed 02/01/2024 11:16 AM S[employer] CULTURE BLOOD Timed 02/01/2024 11:12 AM S[employer]ET[employer] ENG[employer] GLUCOSE - POINT OF CARE Routine 02/01/2024 8:02 AM S[employer]ET[employer] RENAL FUNCTION PANEL AM Draw 02/01/2024 4:26 AM S[employer]ET[employer] GLUCOSE - POINT OF CARE Routine 01/31/2024 11:23 PM S[employer]ET[employer] GLUCOSE - POINT OF CARE Routine 01/31/2024 10:52 PM S[employer] GLUCOSE - POINT OF CARE Routine 01/31/2024 8:41 PM S[employer]ET[employer] GLUCOSE - POINT OF CARE Routine 01/31/2024 6:14 PM S[employer] GLUCOSE - POINT OF CARE Routine 01/31/2024 3:17 PM S[employer] GLUCOSE - POINT OF CARE Routine 01/31/2024 12:14 PM S[employer] GLUCOSE - POINT OF CARE Routine 01/31/2024 9:48 AM S[employer]ET[employer] GLUCOSE - POINT OF CARE Routine 01/31/2024 8:13 AM [employer] BASIC METABOLIC PANEL (CALCIUM TOTAL) AM Draw 01/31/2024 5:09 AM [employer] PROCALCITONIN LEVEL AM Draw 01/31/2024 5 :09 AM [employer] CBC W/O DIFFERENTIAL AM Draw 01/31/2024 5:09 AM [employer] HEMOGLOBIN A1C Routine 01/31/2024 5:09 AM [employer] B-TYPE NATRIURETIC PEPTIDE Routine 01/31/2024 5:09 AM SAFET[employer] ENG[employer] RESPIRATORY PANEL WITH SARS-COV-2 BY PCR (STL) Routine 01/31/2024 12:07 AM S[employer]ET[employer] ENG[employer] GLUCOSE - POINT OF CARE Routine 01/30/2024 10:09 PM S[employer]ET[employer] ENG[employer] GLUCOSE - POINT OF CARE Routine 01/30/2024 8:50 PM S[employer]ET[employer] ENG[employer] GLUCOSE - POINT OF CARE Routine 01/30/2024 5:36 PM SAFET[employer] ENG[employer] GLUCOSE - POINT OF CARE Routine 01/30/2024 2:19 PM SAFET[employer] ENG[employer] GLUCOSE - POINT OF CARE Routine 01/30/2024 12:54 PM SAFET[employer] ENG[employer] GLUCOSE - POINT OF CARE Routine 01/30/2024 9:17 AM S[employer]ET[employer] BLOOD GASES ARTERIAL Routine 01/30/2024 8:43 AM [employer] XR CHEST 1VW PORTABLE Routine 01/30/2024 8:30 AM [employer] Acute hypoxic respiratory failure (HCC) CBC W/O DIFFERENTIAL STAT 01/30/2024 6:38 AM S[employer]ET[employer] ENG[employer] COMPREHENSIVE METABOLIC PANEL STAT 01/30/2024 6:38 AM SAFET[employer] ENG[employer] from Last 3 Months Results * CARDIAC RHYTHM STRIP ORDER (02/07/2024 10:59 PM S[employer]ET[employer] ENG[employer]) Narrative 02/07/2024 10:59 PM [employer] Ordered by an unspecified provider. Scanned Document CARDIAC SERVICES ORD ERABLES * (ABNORMAL) GLUCOSE - POINT OF CARE (02/05/2024 11:55 AM SAFETY ENG[employer]) Only the most recent of35 resultswithin the time period is included. Glucose WB/POC 181(H) 70 - 99 mg/dL 02/05/2024 12:42 PM [employer] [facility] [facility] Specimen Type Cap Fingerstick 2023 12:42 PM [employer]ET[employer] ENG[employer] [facility] Blood BLOOD SPECIMEN / Unknown 02/05/2024 11:55 AM S[employer]ET[employer] 02/05/2024 12:42 PM [employer] Boogie Stephens MD LAB - POINT OF CARE ORDERABLES [facility] [address] [place] [address] * XR Chest 1Vw Portable (02/05/2024 9:40 AM SAFET[employer] ENG[employer]) Only the most recent of3 resultswithin the time period is included. Anatomical Region Laterality Modality Chest Computed Radiogr aphy 02/05/2024 10:0 6 AM [employer] Narrative 02/05/2024 10:06 AM S[employer]ET[employer] ENG[employer] PROCEDURE(s): XR CHEST 1VW PORTABLE DATE AND [...] CBC W AUTO DIFFERENTIAL (02/05/2024 5:32 AM SAFET[employer] ENG[employer]) Only the most recent of2 resultswithin the time period is included. WBC 12.5(H) 4.0 - 10.7 x10E9/L 02/05/2024 5:54 AM [facility] RBC Count 4.33 3.90 - 5.20 x10E12/L 02/05/2024 5:54 AM [facility] Hemoglobin 12.0 11.9 - 15.8 g/dL 02/05/2024 5:54 AM [facility] Hematocrit 39.6 34.8 - 46.1 % 02/05/2024 5:54 AM [facility] MCV 91.5 80.0 - 98.0 fL 02/05/2024 5:54 AM [facility] MCH 27.7 26.7 - 33.6 pg 02/05/2024 5:54 AM [facility] MCHC 30.3(L) 31.7 - 36.3 g/dL 02/05/2024 5:54 AM [facility] RDW-CV 15.8(H) 11.3 - 14.8 % 02/05/2024 5:54 AM [facility] Platelet Count 305 150 - 420 x10E9/L 02/05/2024 5:54 AM [facility] MPV 10.6 7.8 - 11.4 fL 02/05/2024 5:54 AM [facility] Neutrophil % 65.7 41.0 - 74.0 % 02/05/2024 5:54 AM [facility] Lymphocyte % 20.8 17.0 - 47.0 % 02/05/2024 5:54 AM [facility] Monocyte % 7.3 3.0 - 11.0 % 02/05/2024 5:54 AM [facility] Eosinophil % 1.8 0.0 - 7.0 % 02/05/2024 5:54 AM [facility] Basophil % 0.6 0.0 - 1.6 % 02/05/2024 5:54 AM [facility] Immature Granulocytes % 3.8(H) 0.0 - 1.0 % 02/05/2024 5:54 AM [facility] Neutrophil Absolute 8.24(H) 1.60 - 7.50 x10E9/L 02/05/2024 5:54 AM [facility] Lymphocyte Absolute 2.61 1.00 - 4.40 x10E9/L 02/05/2024 5:54 AM [facility] Monocyte Absolute 0.91 0.15 - 1.00 x10E9/L 02/05/2024 5:54 AM [facility] Eosinophil Absolute 0.22 0.00 - 0.60 x10E9/L 02/05/2024 5:54 AM [facility] Basophil Absolute 0.07 0.00 - 0.13 x10E9/L 02/05/2024 5:54 AM [facility] NRBC 0.3(H) <=0.0 /100 WBC 02/05/2024 5:54 AM [facility] Blood BLOOD SPECIMEN / Unknown Venipuncture / Unknown 02/05/2024 5:32 AM [employer] 02/05/2024 5:40 AM [facility] Boogie Stephens MD LAB - HEMATOLOGY ORD ERABLES [facility] [address] [place] [address] * (ABNORMAL) RENAL FUNCTION PANEL (02/05/2024 5:32 AM [employer]) Only the most recent of3 resultswithin the time period is included. Glucose 55(L) 70 - 99 mg/dL 02/05/2024 5:57 AM [facility] Sodium 144 136 - 145 mmol/L 02/05/2024 5:57 AM [facility] Potassium 5.0 3.5 - 5.1 mmol/L 02/05/2024 5:57 AM [facility] Comment:Specimen Moderately Hemolyzed Chloride 105 98 - 107 mmol/L 02/05/2024 5:57 AM [facility] CO2 30(H) 22 - 29 mmol/L 02/05/2024 5:57 AM [facility] Calcium 8.8 8.4 - 10.4 mg/dL 02/05/2024 5:57 AM [facility] Anion Gap 9 6 - 16 mmol/L 02/05/2024 5:57 AM [facility] BUN 51(H) 7 - 26 mg/dL 02/05/2024 5:57 AM [facility] Creatinine 1.48(H) 0.57 - 1.11 mg/dL 02/05/2024 5:57 AM [employer] [facility] Albumin 2.6(L) 3.4 - 5.0 gm/dL 02/05/2024 5:57 AM [employer] [facility] Phosphorus 4.4 2.5 - 4.5 mg/dL 02/05/2024 5:57 AM [employer] [facility] eGFR by CKD-EPI 35(L) >=90 mL/min/1.7 3 m2 02/05/2024 5:57 AM [employer] [facility] Blood BLOOD SPECIMEN / Unknown Venipuncture / Unknown 02/05/2024 5:32 AM [employer] 02/05/2024 5:40 AM [employer] Boogie Stephens MD LAB - CHEMISTRY ORDFortunato GAYLE Performing Organization Address [facility] Co de Phone Number [facility] [address] [place] [address] [phone] * MAGNESIUM BLOOD (02/05/2024 5:32 AM [employer]) Only the most recent of2 resultswithin the time period is included. Magnesium 2.3 1.6 - 2.6 mg/dL 02/05/2024 5:56 AM [facility] Blood BLOOD SPECIMEN / Unknown Venipuncture / Unknown 02/05/2024 5:32 AM [employer] 02/05/2024 5:40 AM [employer] Boogie Stephens MD LAB - CHEMISTRY ORDFortunato GAYLE Performing Organization Address [facility] de Phone Number [facility] [address] [place] [address] [phone] * (ABNORMAL) BASIC METABOLIC PANEL (CALCIUM TOTAL) (02/03/2024 11:01 AM S[employer]ET[employer]) Only the most recent of3 resultswithin the time period is included. Glucose 203(H) 70 - 99 mg/dL 02/03/2024 11:32 AM [facility] Sodium 146(H) 136 - 145 mmol/L 02/03/2024 11:32 AM [facility] Potassium 4.1 3.5 - 5.1 mmol/L 02/03/2024 11:32 AM [facility] Chloride 101 98 - 107 mmol/L 02/03/2024 11:32 AM [facility] CO2 31(H) 22 - 29 mmol/L 02/03/2024 11:32 AM [facility] Calcium 9.7 8.4 - 10.4 mg/dL 02/03/2024 11:32 AM [facility] Anion Gap 14 6 - 16 mmol/L 02/03/2024 11:32 AM [facility] BUN 43(H) 7 - 26 mg/dL 02/03/2024 11:32 AM [facility] Creatinine 1.43(H) 0.57 - 1.11 mg/dL 02/03/2024 11:32 AM [facility] eGFR by CKD-EPI 37(L) >=90 mL/min/1.7 3 m2 02/03/2024 11:32 AM [facility] Blood BLOOD SPECIMEN / Unknown Venipuncture / Unknown 02/03/2024 11:01 AM [employer] 02/03/2024 11:15 AM [employer] Boogie Stephens MD LAB - CHEMISTRY ORDE NALINI Performing Organization Address [facility] de Phone Number [facility] [address] [place], [place] [phone] * VANCOMYCIN LEVEL RANDOM (02/02/2024 9:29 PM [employer]) Only the most recent of2 resultswithin the time period is included. Vancomycin Random 14.8 <=40.0 ug/mL 02/02/2024 9:52 PM [employer] [facility] Blood BLOOD SPECIMEN / Unknown Venipuncture / Unknown 02/02/2024 9:29 PM [employer] 02/02/2024 9:36 PM [employer] Narrative [facility] - 02/02/2024 9:52 PM [employer] No reference range available for random Vancomycin levels. All results interpreted by ordering physician. Boogie Stephens MD LAB - CHEMISTRY ORDFortunato GAYLE Performing Organization Address [facility] Co de Phone Number [facility] [address] [place], [place] [phone] * ECHO COMPLETE (02/02/2024 1:00 PM [employer]) LA vol index 0.026 l/m? ? ? [...] E' lateral delmar 8.745 cm[facility] 3.302 mmHg [facility] FU JI PACS MV VTI 24.491 cm [facility] I PACS PV pk delmar 132.543 cm/s [facility] I PACS TAPSE 2.175 cm [facility] CV FUJ I PACS TR pk delmar 294.495 cm/s [facility] CV FUJ I PACS Anatomical Region Laterality Modality Ultrasound 02/02/2024 9:42 AM [employer] Narrative 02/03/2024 9:14 AM [employer] Summary ??* The left ventricle is normal [...] 1940 Gender: ? Female Accession #: ? [id number] Ht: ? 60 in Wt: ? 142 lb BSA: ? 1.67 m2 HR: ? 95 bpm BP: ? 180 / ? 80 mmHg Exam Date: ? 02/02/2024 9:42 AM Patient Status: ? I/P Study Site: ? [facility] EStudy Info Exam Type: ? ECHO COMPLETE Indications ?J96.01 - Acute hypoxic respiratory failure (HCC) Procedure(s) ??* A complete 2D, color Doppler, spectral Doppler, and M-Mode transthoracic echocardiogram was performed. Staff Referring Physician: ? Kb Freire Ordering Provider: ? Kb Freire Attending Physician: ? Kb Freire [place] Attendant: ? Arpita Dozier Left Ventricle ??The left [...] 9:42 AM Patient Status: I/P Study Site: [facility] Primary Location: [facility] EStudy Info Exam Type: ECHO COMPLETE Indications J96.01 - Acute hypoxic respiratory failure (HCC) Procedure(s) * A complete 2D, color Doppler, spectral Doppler, and M-Modetransthoracic echocardiogram was performed. Staff Referring Physician: Kb Freire Ordering Provider: Kb Freire Attending Physician: Kb Freire [place] Attendant: Arpita Dozier Left Ventricle The left ventricle [...] CUPID * CULTURE BLOOD (02/01/2024 11:16 AM [employer]) Only the most recent of2 resultswithin the time period is included. Culture No growth day 5 ELISABET 02/06/2024 2:31 PM [employer] [facility] Blood PERIPHERAL BLOOD / Unknown Venipuncture / Unknown 02/01/2024 11:16 AM [employer] 02/01/2024 11:27 AM [employer] Boogie Stephens MD LAB - MICROBIOLOGY O RDERABLES [facility] [address] [place], [facility], [facility] [phone] * (ABNORMAL) PROCALCITONIN LEVEL (01/31/2024 5:09 AM [employer]) Procalcitonin 14.84(H) <0.10 ng/mL 01/31/2024 5:59 AM [employer] [facility] Blood BLOOD SPECIMEN / Unknown Venipuncture / Unknown 01/31/2024 5:09 AM [employer] 01/31/2024 5:17 AM [employer] Narrative [facility] - 01/31/2024 5:59 AM [employer] The change in procalcitonin (PCT) concentration over [...] Change in Procalcitonin Calculator is available at [email or web address] ?? If clinical picture has not improved and PCT remains high, reevaluate and consider treatment failure or other causes. Kaitlin Norris MD LAB - CHEMISTRY ANGEL GAYLE [facility] [address] [place] [address] * (ABNORMAL) HEMOGLOBIN A1C (01/31/2024 5:09 AM [employer]) Hemoglobin A1c 6.8(H) <5.7 % 01/31/2024 5:29 AM [employer] [facility] Estimated Average Glucose 148 mg/dL 01/31/2024 5:29 AM [employer] [facility] Blood BLOOD SPECIMEN / Unknown Venipuncture / Unknown 01/31/2024 5:09 AM [employer] 01/31/2024 5:17 AM [employer] Narrative [facility] - 01/31/2024 5:29 AM [employer] HbA1c Interpretation: Normal: < 5.7% Pre-diabetes: 5.7-6.4% [...] exceeds 5% in the specimen. The [employer] [place] [employer] assay for the measurement of HbA1c is a National Glycohemoglobin Standardization Program (NGSP) certified method. Kb Freire MD LAB - CHEMISTRY ANGEL GAYLE Performing Organization Address City/[facility]/ZIP Co de Phone Number [facility] [address] [place] [address] * (ABNORMAL) CBC W/O DIFFERENTIAL (01/31/2024 5:09 AM S[employer]) Only the most recent of2 resultswithin the time period is included. WBC 15.8(H) 4.0 - 10.7 x10E9/L 01/31/2024 5:32 AM [facility] RBC Count 3.80(L) 3.90 - 5.20 x10E12/L 01/31/2024 5:32 AM [facility] Hemoglobin 10.5(L) 11.9 - 15.8 g/dL 01/31/2024 5:32 AM [facility] Hematocrit 35.7 34.8 - 46.1 % 01/31/2024 5:32 AM [facility] MCV 93.9 80.0 - 98.0 fL 01/31/2024 5:32 AM [facility] MCH 27.6 26.7 - 33.6 pg 01/31/2024 5:32 AM [facility] MCHC 29.4(L) 31.7 - 36.3 g/dL 01/31/2024 5:32 AM [facility] RDW-CV 14.9(H) 11.3 - 14.8 % 01/31/2024 5:32 AM [facility] Platelet Count 304 150 - 420 x10E9/L 01/31/2024 5:32 AM [facility] MPV 10.8 7.8 - 11.4 fL 01/31/2024 5:32 AM [facility] Blood BLOOD SPECIMEN / Unknown Venipuncture / Unknown 01/31/2024 5:09 AM [employer] 01/31/2024 5:17 AM [employer] Kaitlin Norris MD LAB - HEMATOLOGY ORD MATIAS Performing Organization Address City/[facility]/ZIP Co de Phone Number [facility] [address] [place] [address] * (ABNORMAL) B-TYPE NATRIURETIC PEPTIDE (01/31/2024 5:09 AM [employer]) [facility] BNP 1,514(H) <=100 pg/mL 01/31/2024 6:26 AM [employer] [facility] Blood BLOOD SPECIMEN / Unknown Venipuncture / Unknown 01/31/2024 5:09 AM [employer] 01/31/2024 5:17 AM [employer] Kb Freire MD LAB - CHEMISTRY ANGEL GAYLE [facility] [address] [place] [address] * (ABNORMAL) RESPIRATORY PANEL WITH SARS-COV-2 BY PCR (STL) (01/31/2024 12:07 AM [employer]) [facility] Adenovirus PCR Not detected Not detected 01/31/2024 6:33 AM [employer] [facility] Coronavirus 229E PCR Not detected Not detected 01/31/2024 6:33 AM [employer] [facility] Coronavirus HKU1 PCR Not detected Not detected 01/31/2024 6:33 AM [employer] [facility] Coronavirus NL63 PCR Not detected Not detected 01/31/2024 6:33 AM [employer] [facility] Coronavirus OC43 PCR Not detected Not detected 01/31/2024 6:33 AM [employer] [facility] COVID-19 PCR Not detected Not detected 01/31/2024 6:33 AM [employer] [facility] Human Metapneumovirus PCR Not detected Not detected 01/31/2024 6:33 AM [employer] [facility] Human Rhinovirus/Enterov irus PCR Detected(A) Not detected 01/31/2024 6:33 AM [employer] [facility] Influenza A PCR Not detected Not detected 01/31/2024 6:33 AM [employer] [facility] Influenza B PCR Not detected Not detected 01/31/2024 6:33 AM [employer] [facility] Parainfluenza Virus 1 PCR Not detected Not detected 01/31/2024 6:33 AM [employer] [facility] Parainfluenza Virus 2 PCR Not detected Not detected 01/31/2024 6:33 AM [employer] [facility] Parainfluenza Virus 3 PCR Not detected Not detected 01/31/2024 6:33 AM [employer] [facility] Parainfluenza Virus 4 PCR Not detected Not detected 01/31/2024 6:33 AM [facility] [facility] Respiratory Syncytial Virus PCR Not detected Not detected 01/31/2024 6:33 AM [facility] Bordetella parapertussis PCR Not detected Not detected 01/31/2024 6:33 AM SAFETY ENGINEER [employer] [facility] Bordetella pertussis PCR Not detected Not detected 01/31/2024 6:33 AM [facility] Chlamydia pneumoniae PCR Not detected Not detected 01/31/2024 6:33 AM [facility] Mycoplasma pneumoniae PCR Not detected Not detected 01/31/2024 6:33 AM [facility] Microbiology SPECIMEN FROM NASOPHARYNGEAL STRUCTURE / Unknown Collection / Unknown 01/31/2024 12:07 AM [employer]ET[employer] 01/31/2024 12:17 AM SAFETY ENGINEER [employer] [facility] MICROBIOLOG[facility] - 01/31/2024 6:33 AM SAFETY ENGINE[employer] Contact and Droplet Precautions Required. This nucleic amplification assay has received FDA authorization via the [employer]. Kaitlin Norris MD LAB - MICROBIOLOGY O RDERABLES [facility] [address] [place] [address], [facility] [phone] * (ABNORMAL) BLOOD GASES ARTERIAL (01/30/2024 8:43 AM SAFETY ENGINE[employer]) pH Arterial 7.35 7.35 - 7.45 pH 01/30/2024 8:57 AM SAFETY ENGINEER [employer] [facility] pO2 Arterial 99 80 - 100 mmHg 01/30/2024 8:57 AM SAFETY ENGINEER [employer] [facility] pCO2 Arterial 52(H) 35 - 45 mmHg 01/30/2024 8:57 AM SAFETY ENGINEER [employer] [facility] HCO3 Arterial 28.7(H) 22.0 - 26.0 mmol/L 01/30/2024 8:57 AM SAFETY ENGINEER [employer] [facility] BE Arterial 2.1(H) -2.0 - 2.0 mmol/L 01/30/2024 8:57 AM SAFETY ENGINEER [employer] [facility] O2 Saturation Arterial 99 90 - 100 % 01/30/2024 8:57 AM SAFETY ENGINEER [employer] [facility] Solitario's Test Yes 01/30/2024 8:57 AM [facility] Sample Site Right BA 01/30/2024 8:57 AM [facility] Mode Bipap 01/30/2024 8:57 AM [facility] FI O2 50.0 % 01/30/2024 8:57 AM [facility] Mechanical Respiratory Rate (bpm) 16 01/30/2024 8:57 AM [facility] BIPAP Insp Pressure (cmH2O) 12 01/30/2024 8:57 AM SAFETY ENGINEER [employer] [facility] BIPAP Exp Pressure (cmH2O) 6 01/30/2024 8:57 AM [facility] Blood, arterial ARTERIAL BLOOD SPECIMEN / Unknown 01/30/2024 8:43 AM S[employer]ET[employer] ENG[employer] 01/30/2024 8:43 AM [facility] Kb Freire MD LAB - BLOOD GASES OR DERABLES Performing Organization Address City/State/[facility] Co de Phone Number [facility] [address] [employer] [address] [phone] * (ABNORMAL) COMPREHENSIVE METABOLIC PANEL (01/30/2024 6:38 AM [facility]) Glucose 156(H) 70 - 99 mg/dL 01/30/2024 7:03 AM [facility] Sodium 145 136 - 145 mmol/L 01/30/2024 7:03 AM [facility] Potassium 4.9 3.5 - 5.1 mmol/L 01/30/2024 7:03 AM [facility] Chloride 106 98 - 107 mmol/L 01/30/2024 7:03 AM [facility] CO2 28 22 - 29 mmol/L 01/30/2024 7:03 AM [facility] Calcium 9.2 8.4 - 10.4 mg/dL 01/30/2024 7:03 AM [facility] Anion Gap 11 6 - 16 mmol/L 01/30/2024 7:03 AM [facility] BUN 46(H) 7 - 26 mg/dL 01/30/2024 7:03 AM [facility] Creatinine 1.60(H) 0.57 - 1.11 mg/dL 01/30/2024 7:03 AM SAFETY ENGINEER [employer] [facility] Alkaline Phosphatase 110 40 - 150 U/L 01/30/2024 7:03 AM SAFETY ENGINEER [employer] [facility] ALT 44 0 - 55 U/L 01/30/2024 7:03 AM SAFETY ENGINEER [employer] [facility] AST 51(H) 5 - 34 U/L 01/30/2024 7:03 AM SAFETY ENGINEER [employer] [facility] Protein Total 6.4 6.4 - 8.3 gm/dL 01/30/2024 7:03 AM SAFETY ENGINEER [employer] [facility] Albumin 2.7(L) 3.4 - 5.0 gm/dL 01/30/2024 7:03 AM SAFETY ENGINEER [employer] [facility] Bilirubin Total 0.3 0.2 - 1.2 mg/dL 01/30/2024 7:03 AM SAFETY ENGINEER [employer] [facility] eGFR by CKD-EPI 32(L) >=90 mL/min/1.7 3 m2 01/30/2024 7:03 AM SAFETY ENGINEER [employer] [facility] Blood BLOOD SPECIMEN / Unknown Venipuncture / Unknown 01/30/2024 6:38 AM SAFETY ENGINEER [employer] 01/30/2024 6:42 AM SAFETY ENGINEER [employer] Aura Lancaster MD LAB - CHEMISTRY OR DERABLES [facility] [id number] [id number] from Last 3 Months Advance Directives * [...]
--- OUTSIDE RECORDS SUMMARY | 2024-03-12 05:41 | XMS_ITS | Encounter Summary ---
Author Organization [facility] - [facility] Address [address] [place] [address]. [place] [address] [place] [address] Care Team Providers Care Supervisor [employer] Name Role Phone Raymond Medina MD Primary Care Provider [phone] Jessee Gregg MD Primary Care Provider [phone] Encounter Details Date Type Department Care Team (Late st Contact Info) Description 10/30/2011 Abstract [facility] [address] [place] [address] New Referring, Provider Social History [...] on filedocumented in this encounter Care Teams Supervisor [employer] Relationship Specialty Start Date End Date Raymond Medina MD [address] [place] [id number] PCP - General FAMILY PRACTICE 06/04/16 08/16/19 [place] [address] [place] [address] PCP - General FAMILY PRACTICE 08/17/19 06/15/21 documented as of this encounter
--- OUTSIDE RECORDS SUMMARY | 2024-03-12 05:41 | XMS_ITS | Clinical Summary ---
Author Organization [facility] Address [address] [place] [id number] Phone Care Team Providers Care Rail Transit Operator Name Role Phone Scott Galvez MD Primary Care Provider [phone] Allergies No known active allergies Medications Medication [...] 08/01/2019 Active pen needle, diabetic (Droplet Pen [place]) 31G X 5 MM misc 05/25/2019 Active glucose blood (Accu-Chek Corrie Plus) test strip 07/12/2019 Active Continuous Blood Gluc Sensor (FreeStyle Sophia 14 Day Sensor) misc Use with Freestyle Sophia monitor 11/07/2019 Active Continuous Blood Gluc Crystal Grinder (FreeStyle Sophia 14 Day [place]) device Use with Freestyle Sophia Sensor 11/07/2019 [...] 11/08/2019, 12/15/2018, Additional history exists Care Teams Rail Transit Operator Relationship Specialty Start Date End Date Scott Galvez MD [address] [place] [address] PCP - General Internal Medicine 05/21/21
--- NOTE | 2024-03-12 05:45 | PC.NURSE ---
RT AT THE BEDSIDE WITH BIPAP. EXPLAINED TO PATIENT IMPORTANCE OF THE BIPAP. ALSO INFORMED PATIENT THAT A ORONA CATHETER WOULD BE PLACED.
[2024-03-12] MEDS: FUROSEMIDE INJ 40 MG/4 ML VIAL IV PUSH (05:48)
[2024-03-12 06:00] LABS: Base Excess ABG -4.5 mmol/L (0-2); HCO3 ABG 23.4 mmol/L (23-29); Oxygen Content ABG 15.5 %vol (16.0-22.0); Oxygen Saturation ABG 96.2 % (95-97); Oxyhemoglobin 95.6 % (94-100); PO2 ABG 104.4 mmHg (75-85); pH ABG 7.23 (7.35-7.45)
--- NOTE | 2024-03-12 06:01 | PC.NURSE ---
PATIENT IS TOLERATING BIPAP AT THIS TIME. ASKING FOR WATER. ENCOURAGED PATIENT TO WAIT FOR BLOOD WORK TO RETURN BEFORE BEING GIVEN FLUIDS.
[2024-03-12 06:03] LABS: Device NON-REBREATHER MASK; Modified Allen's Test Pass; Site Drawn LEFT RADIAL
[2024-03-12 06:04] LABS: Hematocrit 38.4 % (35.0-42.0); Mean Corpuscular HGB Conc 28.6 g/dL (32-36); Mean Corpuscular Hemoglobin 27.3 pg (27.0-31.0); Mean Corpuscular Volume 95.3 fL (78.0-102.0); Mean Platelet Volume 10.1 fl (9.2-11.8); Platelet Count Result 408 K/mm3 (150-420); Red Blood Count 4.03 M/mm3 (4.20-5.40); Red Cell Distribution Width 15.5 % (11.6-14.4)
--- NOTE | 2024-03-12 06:15 | PC.NURSE ---
PATIENT IS CURRENTLY RESTING ON HER LEFT SIDE. BIPAP IN PLACE. CONTROLLED BREATHING AT THIS TIME.
[2024-03-12 06:26] LABS: White Blood Count 20.9 K/mm3 (4.8-10.8)
--- NOTE | 2024-03-12 06:28 | PC.NURSE ---
URINE TAKEN DOWN TO LAB BY TECH. ROSIE
[2024-03-12 06:30] LABS: Partial Thromboplastin Time 23.5 Sec (23.9-30.70); Prothrombin Time 11.1 Seconds (9.50-12.1)
--- NOTE | 2024-03-12 06:31 | ED_ITS ---
HPI - SOB/Dyspnea General Chief Complaint: Shortness of Breath/Dyspnea Stated Complaint: SOB Time Seen by Provider: 03/12/24 05:20 Source: patient and EMS Mode of arrival: EMS Limitations: physical limitation and clinical condition History of Present Illness HPI Narrative: this is a 83-year-old female presents with shortness of breath patient with noted hypoxia with O2 sats in the 40 to 50% range brought in by EMS and EN route to the hospital patient received DuoNeb Solu-Medrol and magnesium. Patient denies chest pain does have a history of COPD, hypertension CHF hypothyroidism, patient is on home O2 at4L. MD elicited complaint: shortness of breath Pertinent past history: COPD and congestive heart failure Onset (ago): hour(s) Timing: constant Severity: severe Exacerbating factors: nothing Relieving factors: oxygen Known history of: COPD Associated symptoms: denies other symptoms Related Data Home Medications ?Medication ?Instructions ?Recorded ?Confirmed ?Last Taken ?Type insulin glargine 100 unit/mL (3 14 unit subcut HS 05/15/21 03/12/24 06/01/23 History mL) subcutaneous pen (Lantus 14 Solostar U-100 Insulin) insulin lispro 100 unit/mL See Protocol subcut DAILY 05/15/21 03/12/24 01/31/23 History subcutaneous pen (Humalog KwikPen (U-100) Insulin) lovastatin 20 mg tablet 20 mg PO HS 05/15/21 03/12/24 06/01/23 History omeprazole 40 mg capsule,delayed 40 mg PO DAILY 05/15/21 03/12/24 06/02/23 History release 09 aspirin 81 mg tablet,delayed 81 mg PO DAILY 09/26/21 03/12/24 01/31/23 History release escitalopram oxalate 20 mg tablet 10 mg PO DAILY 07/14/23 03/12/24 Unknown History furosemide 40 mg tablet 80 mg PO Q12H 10/25/23 03/12/24 Unknown History montelukast 10 mg tablet 10 mg PO QPM 03/12/24 03/12/24 Unknown History nifedipine 60 mg tablet,extended 60 mg PO DAILY 03/12/24 03/12/24 Unknown History release Allergies Allergy/AdvReac Type Severity Reaction Status Date / Time No Known Allergies Allergy Verified 02/28/24 08:16 Review of Systems 2 Review of Systems: All systems reviewed & are unremarkable except as noted in HPI and below PMFSH Past Medical History Medical History Insulin dependent type 2 diabetes mellitus Diastolic congestive heart failure Chronic kidney disease Hypothyroidism Coronary artery disease Gastroesophageal reflux disease Chronic obstructive pulmonary disease Hyperlipidemia Hypertension Surgical History Surgical History History of cholecystectomy History of appendectomy History of partial hysterectomy Family History Family History Father Cerebrovascular accident Mother Diabetes mellitus Heart disease Sibling Throat cancer Renal failure Suicide Sibling Heart disease Social History Social History Social History: Surrogate medical decision maker: Eagle Malenarobinanjelica pak. Code status: Smoking packs per day: 1 Smoking cigarettes per day: 20.0 Years smoked: 40 Smoking pack-years: 40.00 Smoking status: Former smoker Second hand tobacco smoke exposure: Yes Alcohol intake: never Alcohol use details: Social Substance use: never Substance use type: does not use Do You Feel Safe in your Home?: Yes Lack of Transportation: No Lack of Food: Never True Current Housing: I Have Housing Concerned About Future Housing: No Difficulty Paying Gas/Electric Bills: No Difficulty Paying for Meds: No Currently Unemployed: No Education: High School Diploma/GED Difficulty w/ Childcare or Family Care: No Living arrangements: with family Additional living arrangements comments: Lives with son in [place]. 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 Gender identity (if verbalized by the patient): Female Spiritual care concerns: No Exam 2 Const: General: ill appearing Nutritional Appearance: well nourished O rientation/consciousness: patient oriented x3 Limitations: no limitations HENMT: Head: normal to inspection Neck: Neck: normal visual inspection, no lymphadenopathy and no meningeal signs Chest: Chest palpation & inspection: normal inspection of the chest Resp: Effort & Inspection: normal respiratory effort Auscultation: wheezes and diminished lung sounds Cardio: Rate: tachycardic Rhythm: regular rhythm GI: GI Palp: Yes Soft to palpation Auscultation: normal bowel sounds : General: Yes bladder normal to palpation Skin: General skin exam: normal color Rashes: no rashes Wounds: no wounds Neuro: General: patient oriented x3 and moves all extremities Cranial nerves: Yes Nystagmus not present Extrem: General: normal to inspection and edema Course Course Emergency Course: Patient presents to the hospital with hypoxia initial O2 sats in the 40 to 50 he has received DuoNeb x2, 125 Solu-Medrol and 2g of magnesium. Patient was started on non-rebreather mask which did improve her oxygen level to around 94%, subsequently placed on BiPAP. Patient has a white count 20.9 ABGs 7.23/57/23.4 with an O2 of 104. EKG shows sinus tachycardia with a rate of 105. Patient with an elevated D- dimer and will obtain a CTA Vital Signs Vital signs: Vital Signs Pulse Rate 107 H 03/12/24 05:11 Respiratory Rate 38 H 03/12/24 05:11 Blood Pressure 143/68 H 03/12/24 05:11 Pulse Oximetry 46 L 03/12/24 05:11 Oxygen Delivery Room Air 03/12/24 05:11 Oxygen Flow Rate 15 03/12/24 05:11 Temperature 37.0 C 03/12/24 16:01 Pulse Rate 75 03/12/24 16:46 Respiratory Rate 19 03/12/24 16:46 Blood Pressure 157/70 H 03/12/24 16:46 Pulse Oximetry 98 03/12/24 16:46 Oxygen Delivery CPAP 03/12/24 15:30 Oxygen Flow Rate 5 03/12/24 09:36 Fraction of Inspired Oxygen 40 03/12/24 14:00 MDM - SOB/Dyspnea Lab Data 03/12/24 05:52 03/12/24 09:03 Labs: Lab Results 03/12/24 03/12/24 03/12/24 Range/Units 05:50 05:52 09:00 WBC 20.9 H* (4.8-10.8) K/mm3 RBC 4.03 L (4.20-5.40) M/mm3 Hgb 11.0 L (11.7-13.8) g/dL Hct 38.4 (35.0-42.0) % MCV 95.3 (78.0-102.0) fL MCH 27.3 (27.0-31.0) pg MCHC 28.6 L (32-36) g/dL RDW 15.5 H (11.6-14.4) % Plt Count 408 (150-420) K/mm3 MPV 10.1 (9.2-11.8) fl Immature Gran % (Auto) Not Reportable Neut % (Auto) Not Reportable Lymph % (Auto) Not Reportable [place] % (Auto) Not Reportable Eos % (Auto) Not Reportable Baso % (Auto) Not Reportable Lymph # (Auto) Not Reportable [place] # (Auto) Not Reportable Eos # (Auto) Not Reportable Baso # (Auto) Not Reportable Abs Immat Gran (auto) Not Reportable Absolute Neuts (auto) Not Reportable Absolute Nucleated RBC Not Reportable Total Counted 100 Neutrophils % (Manual) 74 H (46-73) % Band Neutrophils % 2 (0-6) % Lymphocytes % (Manual) 17 L (18-44) % Monocytes % (Manual) 3 (3-9) % Eosinophils % (Manual) 2 (1-6) % Basophils % (Manual) 2 H (0-1) % Nucleated RBC % Not Reportable Abs Neuts (Manual) 15.88 H (1.7-7.2) K/mm3 Abs Lymphs (Manual) 3.55 (1.1-4.5) K/mm3 Abs Monocytes (Manual) 0.62 (0.1-0.90) K/mm3 Absolute Eos (Manual) 0.41 (0.02-0.50) K/mm3 Abs Basophils (Manual) 0.41 H (0-0.1) K/mm3 Platelet Estimate Increased (Adequate) Clumped Platelets Present Schistocytes None seen PT 11.1 (9.50-12.1) Seconds INR 1.0 APTT 23.5 L (23.9-30.70) Sec D-Dimer 3.03 H* (0.19-0.50) mg/L Expiratory Pressure cmH2O Inspiratory Pressure cmH2O Sodium 141 (136-145) mmol/L Potassium 4.3 (3.5-5.1) mmol/L Chloride 104 (98-108) mmol/L Carbon Dioxide 27 (21-32) mmol/L Anion Gap 10 (4-12) mmol/L BUN 44 H (7-18) mg/dL Creatinine 1.90 H (0.55-1.02) mg/dL Estim Creat Clear Calc 16 ml/min Estimated GFR 25 L (59 - ) Glucose 452 H* (70-99) mg/dL POC Capillary Glucose (65-105) mg/dl Calculated Osmolality 323 H (285-295) mOsm/kg Lactic Acid 2.3 H 1.1 (0.4-2.0) mmol/L Calcium 9.3 (8.5-10.1) mg/dL Magnesium 2.8 H (1.8-2.4) mg/dL Total Bilirubin 0.3 (0.00-1.00) mg/dL AST 12 L (15-37) U/L ALT 22 (14-59) U/L Alkaline Phosphatase 97 (46-116) U/L Troponin I 205.4 H* (0.00-60.4) ng/L NT-Pro-B Natriuret Pep 1260 H (0-450) pg/mL Total Protein 6.8 (6.4-8.2) g/dL Albumin 3.1 L (3.4-5.0) g/dL Urine Color Light yellow (Yellow) Urine Appearance Cloudy A (Clear) Urine pH 5.5 (5.0-8.0) Ur Specific [place] 1.025 H (1.010-1.020) Urine Protein 2+ H (Negative) Urine Glucose (UA) 1+ H (Negative) Urine Ketones Negative (Negative) Ur Blood (Man) Negative (Negative) Urine Nitrate Negative (Negative) Urine Bilirubin Negative (Negative) Urine Urobilinogen 0.2 (0.2-1.0) mg/dL Leukocyte Esterase Rfl Negative (Negative) HAYDEN/UL Urine RBC 3-5 H (0-2) /hpf Urine WBC 4-6 H (0-3) /hpf Urine WBC Clumps Present H (None) /hpf Amorphous Sediment Few H (None) Urine Bacteria 4+ H (None) /hpf Influenza A (RT-PCR) Negative (Negative) Influenza B (RT-PCR) Negative (Negative) RSV (RT-PCR) Negative (Negative) SARS-CoV-2 RNA (RT-PCR) Negative (Negative) 03/12/24 03/12/24 Range/Units 09:03 13:47 WBC (4.8-10.8) K/mm3 RBC (4.20-5.40) M/mm3 Hgb (11.7-13.8) g/dL Hct (35.0-42.0) % MCV (78.0-102.0) fL MCH (27.0-31.0) pg MCHC (32-36) g/dL RDW (11.6-14.4) % Plt Count (150-420) K/mm3 MPV (9.2-11.8) fl Immature Gran % (Auto) Neut % (Auto) Lymph % (Auto) [place] % (Auto) Eos % (Auto) Baso % (Auto) Lymph # (Auto) [place] # (Auto) Eos # (Auto) Baso # (Auto) Abs Immat Gran (auto) Absolute Neuts (auto) Absolute Nucleated RBC Total Counted Neutrophils % (Manual) (46-73) % Band Neutrophils % (0-6) % Lymphocytes % (Manual) (18-44) % Monocytes % (Manual) (3-9) % Eosinophils % (Manual) (1-6) % Basophils % (Manual) (0-1) % Nucleated RBC % Abs Neuts (Manual) (1.7-7.2) K/mm3 Abs Lymphs (Manual) (1.1-4.5) K/mm3 Abs Monocytes (Manual) (0.1-0.90) K/mm3 Absolute Eos (Manual) (0.02-0.50) K/mm3 Abs Basophils (Manual) (0-0.1) K/mm3 Platelet Estimate (Adequate) Clumped Platelets Schistocytes PT (9.50-12.1) Seconds INR APTT (23.9-30.70) Sec D-Dimer (0.19-0.50) mg/L Expiratory Pressure 5 cmH2O Inspiratory Pressure 10 cmH2O Sodium (136-145) mmol/L Potassium (3.5-5.1) mmol/L Chloride (98-108) mmol/L Carbon Dioxide (21-32) mmol/L Anion Gap (4-12) mmol/L BUN (7-18) mg/dL Creatinine (0.55-1.02) mg/dL Estim Creat Clear Calc ml/min Estimated GFR (59 - ) Glucose 420 H* (70-99) mg/dL POC Capillary Glucose 235 H (65-105) mg/dl Calculated Osmolality (285-295) mOsm/kg Lactic Acid (0.4-2.0) mmol/L Calcium (8.5-10.1) mg/dL Magnesium (1.8-2.4) mg/dL Total Bilirubin (0.00-1.00) mg/dL AST (15-37) U/L ALT (14-59) U/L Alkaline Phosphatase (46-116) U/L Troponin I 1233.5 H* (0.00-60.4) ng/L NT-Pro-B Natriuret Pep (0-450) pg/mL Total Protein (6.4-8.2) g/dL Albumin (3.4-5.0) g/dL Urine Color (Yellow) Urine Appearance (Clear) Urine pH (5.0-8.0) Ur Specific [place] (1.010-1.020) Urine Protein (Negative) Urine Glucose (UA) (Negative) Urine Ketones (Negative) Ur Blood (Man) (Negative) Urine Nitrate (Negative) Urine Bilirubin (Negative) Urine Urobilinogen (0.2-1.0) mg/dL Leukocyte Esterase Rfl (Negative) HAYDEN/UL Urine RBC (0-2) /hpf Urine WBC (0-3) /hpf Urine WBC Clumps (None) /hpf Amorphous Sediment (None) Urine Bacteria (None) /hpf Influenza A (RT-PCR) (Negative) Influenza B (RT-PCR) (Negative) RSV (RT-PCR) (Negative) SARS-CoV-2 RNA (RT-PCR) (Negative) ABG Data ABG results: 03/12/24 03/12/24 05:50 09:03 Puncture Site Left radial Left radial ABG pH 7.23 L 7.33 L ABG pCO2 57.0 H 41.7 ABG pO2 104.4 H 74.9 L ABG PO2/FiO2 Ratio Not Reportable Not Reportable ABG HCO3 23.4 21.4 L ABG O2 Saturation 96.2 94.1 L ABG O2 Content 15.5 L 15.7 L ABG Base Excess -4.5 L -4.3 L A-a Gradient Not Reportable Not Reportable Oxyhemoglobin 95.6 93.6 L O2 Delivery Device Non-rebreather mask Bipap O2 Liters/Min 12.0 0.0 Discharge Plan Discharge Clinical Impression: Acute exacerbation of chronic obstructive pulmonary disease, Hypoxia, Acute non-ST elevation myocardial infarction (NSTEMI), D-dimer, elevated CKD (chronic kidney disease) Qualifiers: Chronic kidney disease stage: unspecified stage Qualified Code(s): N18.9 - Chronic kidney disease, unspecified Acute exacerbation of CHF (congestive heart failure) Qualifiers: Heart failure type: unspecified Qualified Code(s): I50.9 - Heart failure, unspecified Diabetes type 2, uncontrolled Qualifiers: Glycemic state: with hypoglycemia Coma presence: without coma Qualified Code(s): E11.649 - Type 2 diabetes mellitus with hypoglycemia without coma Patient Disposition: Acute Care Hospital [facility] Condition: Improved Patient Language: Hungarian Prescriptions: No Action omeprazole 40 mg capsule,delayed release(DR/EC) 40 mg PO DAILY lovastatin 20 mg tablet 20 mg PO HS insulin lispro [Humalog KwikPen Insulin] 100 unit/mL insulin pen See Protocol subcut DAILY Protocol: Insulin Corrective Low-Dose Condition: glucose < 70 mg/dl Dose/Route: Follow Hypoglycemia Order Condition: glucose 70-200 mg/dl Dose/Route: No additional insulin Condition: glucose 201-250 mg/dl Dose/Route: 2 units sub-Q Condition: glucose 251-300 mg/dl Dose/Route: 3 units sub-Q Condition: glucose 301-350 mg/dl Dose/Route: 4 units sub-Q Condition: glucose 351-400 mg/dl Dose/Route: 5 units sub-Q Condition: glucose > 400 mg/dl Dose/Route: Call MD Protocol Text: *No Correction Dose at Bedtime* insulin glargine [Lantus Solostar U-100 Insulin] 100 unit/mL (3 mL) insulin pen 14 unit subcut HS aspirin 81 mg tablet,delayed release (DR/EC) 81 mg PO DAILY escitalopram oxalate 20 mg tablet 10 mg PO DAILY levothyroxine [Synthroid] 137 mcg Tablet 137 mcg PO DAILY@0630 Qty: 30 0RF nifedipine 60 mg tablet extended release 60 mg PO DAILY montelukast 10 mg tablet 10 mg PO QPM doxycycline hyclate 100 mg Tablet 100 mg PO Q12HR Qty: 1 0RF amoxicillin-pot clavulanate [Augmentin] 500-125 mg Tablet 1 tablet PO Q12HR Qty: 2 0RF guaifenesin [Mucus Relief ER] 600 mg Tablet Extended Release 12hr 600 mg PO Q12HR Qty: 60 0RF levalbuterol tartrate 45 mcg/actuation HFA aerosol inhaler 2 inh inhalation Q6H PRN (Reason: shortness of breath or wheezing) Qty: 15 2RF fluticasone furoate-vilanterol [Breo Ellipta] 100-25 mcg/dose blister with device See Rx Instructions .ROUTE .COMPLEX Qty: 180 1RF Dose Instruction: INHALE 1 PUFF EVERY 24 HOURS. RINSE AND SPIT AFTER EACH USE. REPLACES ANORO Rx Instructions: INHALE 1 PUFF EVERY 24 HOURS. RINSE AND SPIT AFTER EACH USE. furosemide 40 mg tablet 80 mg PO Q12H Rx Instructions: 60-80mg orally twice a day; ipratropium-albuterol 0.5 mg-3 mg(2.5 mg base)/3 mL solution for nebulization 3 ml inhalation Q6H PRN (Reason: shortness of breath or wheezing) 90 Days Qty: 1080 1RF ramelteon 8 mg tablet See Rx Instructions .ROUTE .COMPLEX Qty: 90 0RF Dose Instruction: TAKE 1 TABLET ORALLY EVERY DAY AT BEDTIME NEEDED FOR SLEEP Rx Instructions: TAKE 1 TABLET ORALLY EVERY DAY AT BEDTIME NEEDED FOR SLEEP Follow-up/Referrals: UNKNOWN,DOCTOR [Primary Care Provider] - Time of Disposition: 07:41
[2024-03-12 06:35] LABS: D Dimer 3.03 mg/L (0.19-0.50)
[2024-03-12 06:38] LABS: Lactic Acid Reflex 2.3 mmol/L (0.4-2.0)
[2024-03-12 06:39] LABS: Alanine Aminotransferase 22 U/L (14-59); Albumin Level 3.1 g/dL (3.4-5.0); Alkaline Phosphatase 97 U/L (46-116); Anion Gap 10 mmol/L (4-12); Aspartate Amino Transferase 12 U/L (15-37); Bilirubin,Total 0.3 mg/dL (0.00-1.00); Blood Urea Nitrogen 44 mg/dL (7-18); Calcium 9.3 mg/dL (8.5-10.1); Carbon Dioxide 27 mmol/L (21-32); Chloride 104 mmol/L (98-108); Estimated CRCL calculation 16 ml/min; Estimated Glomerular Filt Rate 25; Magnesium 2.8 mg/dL (1.8-2.4); NT Pro B Type Natriuretic Pept 1260 pg/mL (0-450); Osmolality Calculated 323 mOsm/kg (285-295); Potassium 4.3 mmol/L (3.5-5.1); Sodium 141 mmol/L (136-145); Total Protein 6.8 g/dL (6.4-8.2)
[2024-03-12 06:40] LABS: Glucose 452 mg/dL (70-99); Troponin I 205.4 ng/L (0.00-60.4)
[2024-03-12 06:43] LABS: Add Urine Microscopic? YES; Bilirubin Urine Negative (Negative); Blood Urine Negative (Negative); Color Urine Light Yellow (Yellow); Glucose Urine UA 1+ (Negative); Ketones Urine Negative (Negative); Leukocyte Esterase Ur Negative LEU/UL (Negative); Nitrate Urine Negative (Negative); Protein Urine 2+ (Negative); Specific Grav Ur 1.025 (1.010-1.020); Urobilinogen Urine 0.2 mg/dL (0.2-1.0); pH Urine 5.5 (5.0-8.0)
[2024-03-12 06:49] LABS: Band Neutrophils Percent 2 % (0-6); Neutrophils Absolute Manual 15.88 K/mm3 (1.7-7.2); Neutrophils Percent Manual 74 % (46-73); Total Cells Counted 100
[2024-03-12 06:50] LABS: Basophils Absolute Manual 0.41 K/mm3 (0-0.1); Basophils Percent Manual 2 % (0-1); Eosinophils Absolute Manual 0.41 K/mm3 (0.02-0.50); Eosinophils Percent Manual 2 % (1-6); Lymphocytes Absolute Manual 3.55 K/mm3 (1.1-4.5); Lymphocytes Percent Manual 17 % (18-44); Monocytes Absolute Manual 0.62 K/mm3 (0.1-0.90); Monocytes Percent Manual 3 % (3-9); Platelet Clumps Present; Platelet Estimate Increased (Adequate); Schistocytes None Seen
[2024-03-12 06:55] LABS: Appearance Urine Cloudy (Clear)
[2024-03-12 06:56] LABS: Amorphous Sediment Urine Few; Bacteria Urine 4+ /hpf; WBC Clumps Urine Present /hpf
[2024-03-12] MEDS: ENOXAPARIN 60 MG/0.6 ML SYRINGE SUB-Q (06:59)
[2024-03-12 07:02] LABS: SARS-CoV-2 RNA PCR Negative (Negative)
[2024-03-12 07:03] LABS: Influenza A QL RT-PCR Negative (Negative); Influenza B QL RT-PCR Negative (Negative); RSV RNA, RT-PCR Negative (Negative)
--- NOTE | 2024-03-12 07:11 | PC.NURSE ---
REPORT GIVEN TO HOLLI MORALES
[2024-03-12] MEDS: levoFLOXacin 500 MG/D5W 100 ML 500 MG/100 ML BAG 100 MG IVPB (07:28)
[2024-03-12] MEDS: INSULIN HUMAN REGULAR (*BKC) 1,000 UNITS/10 ML VIAL 6 UNITS SUB-Q (07:35)
[2024-03-12 09:00] LABS: Reflex Lactic Acid Yes or No Add Lactic
[2024-03-12 09:11] LABS: Base Excess ABG -4.3 mmol/L (0-2); HCO3 ABG 21.4 mmol/L (23-29); Oxygen Content ABG 15.7 %vol (16.0-22.0); Oxygen Saturation ABG 94.1 % (95-97); Oxyhemoglobin 93.6 % (94-100); PCO2 ABG 41.7 mmHg (35-45); PO2 ABG 74.9 mmHg (75-85); pH ABG 7.33 (7.35-7.45)
[2024-03-12 09:12] LABS: Device BIPAP; Modified Allen's Test Pass; Site Drawn LEFT RADIAL
[2024-03-12 09:20] LABS: Expiratory Pressure 5 cmH2O; Inspiratory Pressure 10 cmH2O
[2024-03-12 09:30] LABS: Lactic Acid 1.1 mmol/L (0.4-2.0)
[2024-03-12 09:46] LABS: Glucose 420 mg/dL (70-99); Troponin I 1233.5 ng/L (0.00-60.4)
[2024-03-12] MEDS: ASPIRIN 81 MG CHEWABLE TABLET 324 MG PO (10:26)
[2024-03-12] MEDS: INSULIN HUMAN REGULAR (*BKC) 1,000 UNITS/10 ML VIAL 8 UNITS SUB-Q (10:30)
[2024-03-12 13:53] LABS: Glucose Point of Care 235 mg/dl (65-105)
--- NOTE | 2024-03-13 13:05 | PC.NURSE ---
PRELIMINARY BLOOD CULTURE NO GROWTH TO DATE
--- NOTE | 2024-03-14 14:27 | PC.NURSE ---
preliminary blood culture; gram positive cocci clusters, will wait for final culture and sensitivity.
--- NOTE | 2024-03-16 23:02 | PC.NURSE ---
PRELIMINARY ORGANISM 1, BLOOD CULTURE STAPHYLOCOCCUS EPIDERMIDIS FROM ANAEROBIC BOTTLE ONLY. THIS RESULT IS FLAGGED CRITICAL ABNORMAL. AWAITING FINAL RESULTS
--- NOTE | 2024-03-18 12:52 | PC.NURSE ---
Final blood culture report, No growth after 5 days, [facility] Report faxed to [phone]
--- NOTE | 2024-03-19 12:41 | PC.NURSE ---
final blood culture report; staphylococcus epidermidis, [facility] faxed report to [phone]
== END 2024-03-12 17:00 | disposition short-term general hospital (02) ==
PROVIDERS: Emergency Provider Emergency Medicine
DX: I21.4 Non-ST elevation (NSTEMI) myocardial infarction (principal); J44.1 Chronic obstructive pulmonary disease with (acute) exacerbation; R09.02 Hypoxemia; R79.1 Abnormal coagulation profile; E11.649 Type 2 diabetes mellitus with hypoglycemia without coma; I13.0 Hypertensive heart and chronic kidney disease with heart failure and stage 1 through stage 4 chronic kidney disease, or unspecified chronic kidney disease; I50.32 Chronic diastolic (congestive) heart failure; E11.22 Type 2 diabetes mellitus with diabetic chronic kidney disease; N18.9 Chronic kidney disease, unspecified; I50.9 Heart failure, unspecified; E03.9 Hypothyroidism, unspecified; Z99.81 Dependence on supplemental oxygen; Z79.4 Long term (current) use of insulin; Z79.82 Long term (current) use of aspirin; Z87.891 Personal history of nicotine dependence; Z79.51 Long term (current) use of inhaled steroids; Z20.822 Contact with and (suspected) exposure to COVID-19
CPT/HCPCS: 36415; 36600; 71045; 71250; 80053; 81001; 82805; 82947; 82948; 83605; 83735; 83880; 84484; 85018; 85025; 85380; 85610; 85730; 87040; 87181; 87637; 93005; 94640; 96365; 96372; 96375; 99285; A9270; J1650; J1815; J1940; J1956

== ENCOUNTER 2024-04-30 20:01 | Inpatient (IN) | payer MEDICARE, SELFPAY ==
--- NOTE | ~2024-04-30 | US_ITS ---
EXAMINATION: US venous doppler [facility] DATE: 05/01/2024 15:59 INDICATION: Bilateral lower limb pain TECHNIQUE: Grayscale ultrasound images without and with compression and Doppler ultrasound images of the bilateral lower extremity veins were obtained. COMPARISON: None. FINDINGS: The visualized portions of right common femoral vein, profunda (deep) femoral vein, femoral vein, pop liteal vein, posterior tibial veins, peroneal veins and proximal to mid greater saphenous vein are pa tent. The visualized portions of left common femoral vein, profunda femoral vein, femoral vein, popliteal v ein, posterior tibial veins, peroneal veins and proximal to mid greater saphenous vein are patent. IMPRESSION: 1. No deep venous thrombosis in either lower limb. Reviewed, dictated and finalized at location A.
--- NOTE | ~2024-04-30 | XR_ITS ---
EXAMINATION: XR chest 1V portable Exam Date/Time: 04/30/2024 20:31 CDT HISTORY: Increasing SOB, COPD Comparison: 03/15/2024; CT chest 03/12/2024. RESULT: Lines, tubes, and devices: Surgical clips over the upper abdomen. Lungs and pleura: No focal consolidation, pleural effusion, or pneumothorax. Left lower lung scar. Emphysematous change. Cardiomediastinal silhouette: Stable. Other: No acute osseous or upper abdominal finding. IMPRESSION: No acute cardiopulmonary process. Reviewed, dictated and finalized at location K.
--- NOTE | ~2024-04-30 | CT_ITS ---
CTA chest PE protocol Ordering provider: Antony VieyraMD History: 83 years Female with . SOB . Comparison: March 12, 2024 Technique: CT angiogram chest was performed following timed intravenous injection of contrast. Thin s lice axial images and reformatted coronal images were obtained. Three dimensional reformatted images of the chest were also obtained using a [employer] workstation. . Automated exposure control and iterati ve reconstruction technique were employed. The dose-length product was 501.20 mGy-cm. 100 mL Omnipaqu e 350 was given IV. Findings: PULMONARY ARTERIES: No pulmonary embolus. VISUALIZED THORACIC INLET: Normal. MEDIASTINUM: Aorta/coronary arteries: Mild atheromatous disease. Heart/other: The heart is not enlarged. Lymph nodes: No mediastinal or hilar adenopathy. Precarinal lymph node is seen measuring 1.3 cm. LUNGS: Minimal atelectasis versus pneumonia in the lingula is noted. Underlying emphysematous changes. No pu lmonary nodules or masses. No infiltrates or effusions. No pneumothorax. VISUALIZED UPPER ABDOMEN: Status post cholecystectomy. Markedly thickened wall of the stomach. Furthe r evaluation advised. Otherwise, the visualized upper abdomen is normal. MUSCULOSKELETAL: Soft tissues: The superficial soft tissues are normal. Bones: Age appropriate degenerative changes of the spine. IMPRESSION: 1. No pulmonary embolism. 2. Atelectatic changes in the area of the lingula. Pneumonia is less likely. 3. Markedly thickened wall of the stomach. Further evaluation advised. Reviewed, dictated and finalized at location A.
[2024-04-30 20:01] VITALS: BP 180/71; PULSE 93; RESP 14; TEMP 37.1; O2SAT 96
--- NOTE | 2024-04-30 20:12 | ECG_ITS ---
Test Date: 2024-04-30 20:20:01 Measurements Intervals [place] Rate: 84 P: 77 GA: 152 QRS: 119 QRSD: 105 T: -24 QT: 391 QTc: 465 Interpretive Statements SINUS RHYTHM POSSIBLE RIGHT VENTRICULAR HYPERTROPHY [SOME/ALL OF: PROMINENT R IN V1, LATE TRANSITION, RAD, MONIQUE, SSS] NONSPECIFIC T-WAVE ABNORMALITY Compared to ECG 03/13/2024 04:33:49 T-wave abnormality now present Sinus arrhythmia no longer present Intraventricular conduction delay no longer present ST (T wave) deviation no longer present Electronically Signed On 05-01-2024 15:14:23 CDT by Spencer Sanchez M.D.
[2024-04-30 20:20] LABS: Basophils Absolute Auto 0.1 K/mm3 (0.0-0.1); Basophils Percent Auto 0.9 % (0.2-1.2); Eosinophils Absolute Auto 0.4 K/mm3 (0-0.3); Hematocrit 40.9 % (37.0-47.0); Hemoglobin 11.9 g/dL (12.0-15.0); Immature Granulocyte Absolute 0.04 K/mm3 (0.00-0.031); Immature Granulocyte Percent A 0.3 % (0-0.5); Lymphocytes Absolute Auto 3.39 K/mm3 (0.9-3.2); Lymphocytes Percent Auto 26.1 % (18.3-44.2); Mean Corpuscular HGB Conc 29.1 g/dl (32-36); Mean Corpuscular Volume 92.7 fl (80-100); Mean Platelet Volume 10.3 fl (7.4-10.4); Monocytes Absolute Auto 0.6 K/mm3 (0.1-0.6); Monocytes Percent Auto 4.9 % (2.6-8.5); Neutrophils Absolute Auto 8.4 K/mm3 (1.3-6.7); Neutrophils Percent Auto 64.8 % (45.5-73.1); Platelet Count Result 300 k/mm3 (150-375); Red Blood Count 4.41 M/mm3 (4.2-5.4); Red Cell Distribution Width 15.1 % (11.5-14.5)
[2024-04-30 20:30] LABS: Atypical Lymphocytes Present; Platelet Estimate Adequate (Adequate); Schistocytes None Seen
[2024-04-30 20:31] LABS: Anisocytosis 1+; Hypochromasia 1+
[2024-04-30 20:34] LABS: Alanine Aminotransferase 22 U/L (6-35); Albumin Level 4.1 g/dL (3.5-5.1); Alkaline Phosphatase 82 U/L (38-126); Anion Gap 8 mmol/L (4-12); Aspartate Amino Transferase 28 U/L (14-36); Bilirubin,Total 0.6 mg/dL (0.2-1.3); Blood Urea Nitrogen 28 mg/dL (7-17); Calcium 9.4 mg/dL (8.4-10.2); Carbon Dioxide 33 mmol/L (22-30); Chloride 103 mmol/L (98-107); Estimated CRCL calculation 27 ml/min; Estimated Glomerular Filt Rate 51; Glucose 227 mg/dL (65-110); Potassium 4.5 mmol/L (3.4-5.0); Sodium 144 mmol/L (137-145)
[2024-04-30 20:35] VITALS: O2SAT 100
--- NOTE | 2024-04-30 21:14 | ED.SOB ---
HPI - SOB/Dyspnea General Chief Complaint: Shortness of Breath/Dyspnea <Matilde Tracey PA-C - Last Filed: 05/01/24 01:02> Stated Complaint: shortness of breath <ASHVIN Brink Last Filed: 05/01/24 01:02> Time Seen by Provider: 04/30/24 20:54 <Matilde Tracey PA-C - Last Filed: 05/01/24 01:02> Source: patient <ASHVIN Brink Last Filed: 05/01/24 01:02> Mode of arrival: EMS <ASHVIN Brink Last Filed: 05/01/24 01:02> Limitations: no limitations <ASHVIN Brink Last Filed: 05/01/24 01:02> History of Present Illness HPI Narrative: This is a 83 year old female that presents to the ER for increasing shortness of breath. Ongoing over the last couple of days. Usually wears 6L NC. Was in the 80s on her home O2. Reports a productive cough. History of COPD, CHF. <ASHVIN Brink Last Filed: 05/01/24 01:02> Related Data Home Medications: Home Medications ?Medication ?Instructions ?Recorded ?Confirmed ?Last Taken ?Type insulin glargine 100 unit/mL (3 14 unit subcut HS 05/15/21 05/01/24 04/30/24 History mL) subcutaneous pen (Lantus Solostar U-100 Insulin) insulin lispro 100 unit/mL See Protocol subcut TIDWM 05/15/21 05/01/24 01/31/23 History subcutaneous pen (Humalog KwikPen (U-100) Insulin) lovastatin 20 mg tablet 20 mg PO HS 05/15/21 05/01/24 04/30/24 History omeprazole 40 mg capsule,delayed 40 mg PO DAILY 05/15/21 05/01/24 05/01/24 History release aspirin 81 mg tablet,delayed 81 mg PO DAILY 09/26/21 05/01/24 05/01/24 History release escitalopram oxalate 20 mg tablet 10 mg PO DAILY 07/14/23 05/01/24 04/30/24 07:00 History furosemide 40 mg tablet 40 mg PO Q12H 10/25/23 05/01/24 04/30/24 07:00 History montelukast 10 mg tablet 10 mg PO QPM 03/12/24 05/01/24 04/30/24 History <Matilde Tracey PA-C - Last Filed: 05/01/24 01:02> Allergies/Adverse Reactions: Allergies Allergy/AdvReac Type Severity Reaction Status Date / Time No Known Allergies Allergy Verified 04/12/24 07:58 <Matilde Tracey PA-C - Last Filed: 05/01/24 01:02> Review of Systems Review of Systems: CONSTITUTIONAL: Denies fever CARDIOVASCULAR: Denies chest pain RESPIRATORY: Reports cough and dyspnea. 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 Prior echocardiogram 05/2023 demonstrated basal inferior septal wall severely hypokinetic to akinetic but this was not mentioned on the most recent echo Chronic kidney disease Stage IIIB Hypothyroidism Coronary artery disease Normal Lexiscan 10/2022 Gastroesophageal reflux disease Chronic obstructive pulmonary disease Hyperlipidemia <ASHVIN Brink Last Filed: 05/01/24 01:02> Surgical History Surgical History: Surgical History History of cholecystectomy History of appendectomy History of partial hysterectomy <Matilde Tracey PA-C - Last Filed: 05/01/24 01:02> Family History Family History: Family History Father Cerebrovascular accident Mother Diabetes mellitus Heart disease Sibling Throat cancer Renal failure Suicide Sibling Heart disease <Matilde Tracey PA-C - Last Filed: 05/01/24 01:02> Social History Social History: Social History (Updated 05/01/24 @ 08:24 by Matilde Husain DO) Social History: Surrogate medical decision maker: anjelica Ward. Code status: Do not intubate Smoking packs per day: 1 Smoking cigarettes per day: 20.0 Years smoked: 60 Smoking pack-years: 60.00 Smoking status: Former smoker Tobacco type: cigarettes Second hand tobacco smoke exposure: Yes Smoking end date: 05/01/1964 Alcohol intake: never Alcohol use details: Social Substance use: never Substance use type: does not use Do You Feel Safe in your Home?: Yes Lack of Transportation: YES Lack of Food: Never True Current Housing: I Have Housing Concerned About Future Housing: No Difficulty Paying Gas/Electric Bills: No Difficulty Paying for Meds: No Currently Unemployed: No Education: High School Diploma/GED Difficulty w/ Childcare or Family Care: No Living arrangements: with family Additional living arrangements comments: Lives with son, [id number] and 3 grandchildren in [place]. 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 Gender identity (if verbalized by the patient): Female Spiritual care concerns: No <Matilde Tracey PA-C - Last Filed: 05/01/24 01:02> Exam Narrative: GENERAL: Elderly, well-nourished, and in no acute distress. HEAD: Normocephalic, atraumatic. EYES: EOMI. ENT: Nares clear, no rhinorrhea or epistaxis. Mucous membranes moist. Oropharynx without tonsillar hypertrophy exudate or other lesions. NECK: Supple. No adenopathy or masses. CHEST: No respiratory distress. Rales in the lower lobes. No wheezes or rhonchi HEART: Regular rate and rhythm. No murmur heard. Normal peripheral pulses. EXTREMITIES: Normal range of motion. No edema. SKIN: Warm, dry, no rash. NEURO: No focal deficits. Alert and oriented x3. 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 History of both COPD and heart failure although this presentation that been deemed to favor COPD exacerbation. Chronically on 6 liters/minute baseline. I was available for consultation while patient was in the emergency department but did not personally evaluate them and was not directly involved in their care <Raquel Bailey MD - Last Filed: 05/01/24 13:30> Consultations Consultation #1: Spoke with hospitalist about patient and workup who accepts admission <Matilde Tracey PA-C - Last Filed: 05/01/24 01:02> Date: 04/30/24 <Matilde Tracey PA-C - Last Filed: 05/01/24 01:02> Vital Signs Vital signs: Vital Signs Temperature 98.8 F 04/30/24 20:01 Pulse Rate 93 04/30/24 20:01 Respiratory Rate 14 04/30/24 20:01 Blood Pressure 180/71 H 04/30/24 20:01 Pulse Oximetry 96 04/30/24 20:01 Oxygen Delivery Simple Face Mask 04/30/24 20:01 Oxygen Flow Rate 6 04/30/24 20:01 Temperature 98.6 F 05/01/24 12:00 Pulse Rate 67 05/01/24 12:00 Respiratory Rate 20 05/01/24 12:00 Blood Pressure 148/74 H 05/01/24 12:00 Pulse Oximetry 98 05/01/24 12:00 Oxygen Delivery High Flow Therapy with Nasal Cannula 05/01/24 08:18 Oxygen Flow Rate 35 05/01/24 08:18 Fraction of Inspired Oxygen 58 05/01/24 08:18 <Matilde Tracey PA-C - Last Filed: 05/01/24 01:02> Vital Signs Temperature 98.8 F 04/30/24 20:01 Pulse Rate 93 04/30/24 20:01 Respiratory Rate 14 04/30/24 20:01 Blood Pressure 180/71 H 04/30/24 20:01 Pulse Oximetry 96 04/30/24 20:01 Oxygen Delivery Simple Face Mask 04/30/24 20:01 Oxygen Flow Rate 6 04/30/24 20:01 Temperature 98.6 F 05/01/24 12:00 Pulse Rate 67 05/01/24 12:00 Respiratory Rate 20 05/01/24 12:00 Blood Pressure 148/74 H 05/01/24 12:00 Pulse Oximetry 98 05/01/24 12:00 Oxygen Delivery High Flow Therapy with Nasal Cannula 05/01/24 08:18 Oxygen Flow Rate 35 05/01/24 08:18 Fraction of Inspired Oxygen 58 05/01/24 08:18 <Raquel Bailey MD - Last Filed: 05/01/24 13:30> MDM - SOB/Dyspnea MDM Narrative Medical decision making narrative: Patient presents to the ER for acute on chronic respiratory failure. Patient regularly wears 6L NC. She was in the 80s on this. Currently on 35L [place]. Diminished and wheezing upon arrival. And nebulizer treatment, she had been given solu-medrol via EMS. CBC with leukocytosis to 13. Metabolic panel without concerning findings. BNP 9820. Influenza, RSV and COVID screens are negative. Chest x-ray without acute cardiopulmonary abnormality. Blood cultures drawn. Patient given dose of Levofloxacin for COPD exacerbation. Will be admitted for further management <Matilde Tracey PA-C - Last Filed: 05/01/24 01:02> Differential Diagnosis Differential diagnosis: Likely acute exacerbation of chronic obstructive airways disease, congestive heart failure and community acquired pneumonia <Matilde Tracey PA-C - Last Filed: 05/01/24 01:02> Lab Data Attestation: I reviewed the patient's lab results. <Matilde Tracey PA-C - Last Filed: 05/01/24 01:02> Result diagrams: 05/01/24 05:42 05/01/24 05:42 <ASHVIN Brink Last Filed: 05/01/24 01:02> Labs: Lab Results 04/30/24 04/30/24 04/30/24 Range/Units 20:13 20:14 21:30 WBC 13.0 H (4.5-10.0) K/mm3 RBC 4.41 (4.2-5.4) M/mm3 Hgb 11.9 L (12.0-15.0) g/dL Hct 40.9 (37.0-47.0) % MCV 92.7 (80-100) fl MCH 27.0 (26-34) pg MCHC 29.1 L (32-36) g/dl RDW 15.1 H (11.5-14.5) % Plt Count 300 (150-375) k/mm3 MPV 10.3 (7.4-10.4) fl Immature Gran % (Auto) 0.3 (0-0.5) % Neut % (Auto) 64.8 (45.5-73.1) % Lymph % (Auto) 26.1 (18.3-44.2) % Gilmer % (Auto) 4.9 (2.6-8.5) % Eos % (Auto) 3.0 (0-4.4) % Baso % (Auto) 0.9 (0.2-1.2) % Lymph # (Auto) 3.39 H (0.9-3.2) K/mm3 Gilmer # (Auto) 0.6 (0.1-0.6) K/mm3 Eos # (Auto) 0.4 H (0-0.3) K/mm3 Baso # (Auto) 0.1 (0.0-0.1) K/mm3 Abs Immat Gran (auto) 0.04 H (0.00-0.031) K/mm3 Absolute Neuts (auto) 8.4 H (1.3-6.7) K/mm3 Absolute Nucleated RBC 0.000 (0.0-0.012) K/mm3 Band Neutrophils % Not Reportable Nucleated RBC % 0.0 (0.0-0.2) % Atypical Lymphocytes Present Platelet Estimate Adequate (Adequate) Hypochromasia 1+ Anisocytosis 1+ Schistocytes None seen Methemoglobin 0.3 (0-1.5) %THb Sodium 144 (137-145) mmol/L Potassium 4.5 (3.4-5.0) mmol/L Chloride 103 (98-107) mmol/L Carbon Dioxide 33 H (22-30) mmol/L Anion Gap 8 (4-12) mmol/L BUN 28 H D (7-17) mg/dL Creatinine 1.04 H (0.7-1.0) mg/dL Estim Creat Clear Calc 27 ml/min Estimated GFR 51 L (59 - ) Glucose 227 H (65-110) mg/dL POC Capillary Glucose (65-105) mg/dl Calcium 9.4 (8.4-10.2) mg/dL Total Bilirubin 0.6 (0.2-1.3) mg/dL AST 28 (14-36) U/L ALT 22 (6-35) U/L Alkaline Phosphatase 82 (38-126) U/L NT-Pro-B Natriuret Pep 9820 H (19.9-100) pg/mL Total Protein 7.0 (6.3-8.2) g/dL Albumin 4.1 (3.5-5.1) g/dL Influenza A (RT-PCR) (Negative) Influenza B (RT-PCR) (Negative) RSV (RT-PCR) (Negative) SARS-CoV-2 RNA (RT-PCR) (Negative) 04/30/24 05/01/24 05/01/24 Range/Units 21:39 00:09 02:49 WBC (4.5-10.0) K/mm3 RBC (4.2-5.4) M/mm3 Hgb (12.0-15.0) g/dL Hct (37.0-47.0) % MCV (80-100) fl MCH (26-34) pg MCHC (32-36) g/dl RDW (11.5-14.5) % Plt Count (150-375) k/mm3 MPV (7.4-10.4) fl Immature Gran % (Auto) (0-0.5) % Neut % (Auto) (45.5-73.1) % Lymph % (Auto) (18.3-44.2) % Gilmer % (Auto) (2.6-8.5) % Eos % (Auto) (0-4.4) % Baso % (Auto) (0.2-1.2) % Lymph # (Auto) (0.9-3.2) K/mm3 Gilmer # (Auto) (0.1-0.6) K/mm3 Eos # (Auto) (0-0.3) K/mm3 Baso # (Auto) (0.0-0.1) K/mm3 Abs Immat Gran (auto) (0.00-0.031) K/mm3 Absolute Neuts (auto) (1.3-6.7) K/mm3 Absolute Nucleated RBC (0.0-0.012) K/mm3 Band Neutrophils % Nucleated RBC % (0.0-0.2) % Atypical Lymphocytes Platelet Estimate (Adequate) Hypochromasia Anisocytosis Schistocytes Methemoglobin (0-1.5) %THb Sodium (137-145) mmol/L Potassium (3.4-5.0) mmol/L Chloride (98-107) mmol/L Carbon Dioxide (22-30) mmol/L Anion Gap (4-12) mmol/L BUN (7-17) mg/dL Creatinine (0.7-1.0) mg/dL Estim Creat Clear Calc ml/min Estimated GFR (59 - ) Glucose (65-110) mg/dL POC Capillary Glucose 424 H 492 H (65-105) mg/dl Calcium (8.4-10.2) mg/dL Total Bilirubin (0.2-1.3) mg/dL AST (14-36) U/L ALT (6-35) U/L Alkaline Phosphatase (38-126) U/L NT-Pro-B Natriuret Pep (19.9-100) pg/mL Total Protein (6.3-8.2) g/dL Albumin (3.5-5.1) g/dL Influenza A (RT-PCR) Negative (Negative) Influenza B (RT-PCR) Negative (Negative) RSV (RT-PCR) Negative (Negative) SARS-CoV-2 RNA (RT-PCR) Negative (Negative) 05/01/24 05/01/24 05/01/24 Range/Units 05:20 05:42 06:50 WBC 9.1 (4.5-10.0) K/mm3 RBC 3.89 L (4.2-5.4) M/mm3 Hgb 10.5 L (12.0-15.0) g/dL Hct 35.5 L (37.0-47.0) % MCV 91.3 (80-100) fl MCH 27.0 (26-34) pg MCHC 29.6 L (32-36) g/dl RDW 14.8 H (11.5-14.5) % Plt Count 254 (150-375) k/mm3 MPV 10.5 H (7.4-10.4) fl Immature Gran % (Auto) 0.4 (0-0.5) % Neut % (Auto) 95.0 H (45.5-73.1) % Lymph % (Auto) 4.0 L (18.3-44.2) % Gilmer % (Auto) 0.4 L (2.6-8.5) % Eos % (Auto) 0.0 (0-4.4) % Baso % (Auto) 0.2 (0.2-1.2) % Lymph # (Auto) 0.36 L (0.9-3.2) K/mm3 Gilmer # (Auto) 0.0 L (0.1-0.6) K/mm3 Eos # (Auto) 0.0 (0-0.3) K/mm3 Baso # (Auto) 0.0 (0.0-0.1) K/mm3 Abs Immat Gran (auto) 0.04 H (0.00-0.031) K/mm3 Absolute Neuts (auto) 8.6 H (1.3-6.7) K/mm3 Absolute Nucleated RBC 0.000 (0.0-0.012) K/mm3 Band Neutrophils % Not Reportable Nucleated RBC % 0.0 (0.0-0.2) % Atypical Lymphocytes Platelet Estimate Adequate (Adequate) Hypochromasia 1+ Anisocytosis 1+ Schistocytes None seen Methemoglobin (0-1.5) %THb Sodium 138 (137-145) mmol/L Potassium 4.2 (3.4-5.0) mmol/L Chloride 101 (98-107) mmol/L Carbon Dioxide 26 (22-30) mmol/L Anion Gap 11 (4-12) mmol/L BUN 34 H (7-17) mg/dL Creatinine 1.12 H (0.7-1.0) mg/dL Estim Creat Clear Calc 25 ml/min Estimated GFR 47 L (59 - ) Glucose 456 H (65-110) mg/dL POC Capillary Glucose 444 H 380 H (65-105) mg/dl Calcium 9.3 (8.4-10.2) mg/dL Total Bilirubin (0.2-1.3) mg/dL AST (14-36) U/L ALT (6-35) U/L Alkaline Phosphatase (38-126) U/L NT-Pro-B Natriuret Pep (19.9-100) pg/mL Total Protein (6.3-8.2) g/dL Albumin (3.5-5.1) g/dL Influenza A (RT-PCR) (Negative) Influenza B (RT-PCR) (Negative) RSV (RT-PCR) (Negative) SARS-CoV-2 RNA (RT-PCR) (Negative) 05/01/24 Range/Units 07:52 WBC (4.5-10.0) K/mm3 RBC (4.2-5.4) M/mm3 Hgb (12.0-15.0) g/dL Hct (37.0-47.0) % MCV (80-100) fl MCH (26-34) pg MCHC (32-36) g/dl RDW (11.5-14.5) % Plt Count (150-375) k/mm3 MPV (7.4-10.4) fl Immature Gran % (Auto) (0-0.5) % Neut % (Auto) (45.5-73.1) % Lymph % (Auto) (18.3-44.2) % Gilmer % (Auto) (2.6-8.5) % Eos % (Auto) (0-4.4) % Baso % (Auto) (0.2-1.2) % Lymph # (Auto) (0.9-3.2) K/mm3 Gilmer # (Auto) (0.1-0.6) K/mm3 Eos # (Auto) (0-0.3) K/mm3 Baso # (Auto) (0.0-0.1) K/mm3 Abs Immat Gran (auto) (0.00-0.031) K/mm3 Absolute Neuts (auto) (1.3-6.7) K/mm3 Absolute Nucleated RBC (0.0-0.012) K/mm3 Band Neutrophils % Nucleated RBC % (0.0-0.2) % Atypical Lymphocytes Platelet Estimate (Adequate) Hypochromasia Anisocytosis Schistocytes Methemoglobin (0-1.5) %THb Sodium (137-145) mmol/L Potassium (3.4-5.0) mmol/L Chloride (98-107) mmol/L Carbon Dioxide (22-30) mmol/L Anion Gap (4-12) mmol/L BUN (7-17) mg/dL Creatinine (0.7-1.0) mg/dL Estim Creat Clear Calc ml/min Estimated GFR (59 - ) Glucose (65-110) mg/dL POC Capillary Glucose 362 H (65-105) mg/dl Calcium (8.4-10.2) mg/dL Total Bilirubin (0.2-1.3) mg/dL AST (14-36) U/L ALT (6-35) U/L Alkaline Phosphatase (38-126) U/L NT-Pro-B Natriuret Pep (19.9-100) pg/mL Total Protein (6.3-8.2) g/dL Albumin (3.5-5.1) g/dL Influenza A (RT-PCR) (Negative) Influenza B (RT-PCR) (Negative) RSV (RT-PCR) (Negative) SARS-CoV-2 RNA (RT-PCR) (Negative) <Matilde Tracey PA-C - Last Filed: 05/01/24 01:02> Lab Results 04/30/24 04/30/24 04/30/24 Range/Units 20:13 20:14 21:30 WBC 13.0 H (4.5-10.0) K/mm3 RBC 4.41 (4.2-5.4) M/mm3 Hgb 11.9 L (12.0-15.0) g/dL Hct 40.9 (37.0-47.0) % MCV 92.7 (80-100) fl MCH 27.0 (26-34) pg MCHC 29.1 L (32-36) g/dl RDW 15.1 H (11.5-14.5) % Plt Count 300 (150-375) k/mm3 MPV 10.3 (7.4-10.4) fl Immature Gran % (Auto) 0.3 (0-0.5) % Neut % (Auto) 64.8 (45.5-73.1) % Lymph % (Auto) 26.1 (18.3-44.2) % Gilmer % (Auto) 4.9 (2.6-8.5) % Eos % (Auto) 3.0 (0-4.4) % Baso % (Auto) 0.9 (0.2-1.2) % Lymph # (Auto) 3.39 H (0.9-3.2) K/mm3 Gilmer # (Auto) 0.6 (0.1-0.6) K/mm3 Eos # (Auto) 0.4 H (0-0.3) K/mm3 Baso # (Auto) 0.1 (0.0-0.1) K/mm3 Abs Immat Gran (auto) 0.04 H (0.00-0.031) K/mm3 Absolute Neuts (auto) 8.4 H (1.3-6.7) K/mm3 Absolute Nucleated RBC 0.000 (0.0-0.012) K/mm3 Band Neutrophils % Not Reportable Nucleated RBC % 0.0 (0.0-0.2) % Atypical Lymphocytes Present Platelet Estimate Adequate (Adequate) Hypochromasia 1+ Anisocytosis 1+ Schistocytes None seen Methemoglobin 0.3 (0-1.5) %THb Sodium 144 (137-145) mmol/L Potassium 4.5 (3.4-5.0) mmol/L Chloride 103 (98-107) mmol/L Carbon Dioxide 33 H (22-30) mmol/L Anion Gap 8 (4-12) mmol/L BUN 28 H D (7-17) mg/dL Creatinine 1.04 H (0.7-1.0) mg/dL Estim Creat Clear Calc 27 ml/min Estimated GFR 51 L (59 - ) Glucose 227 H (65-110) mg/dL POC Capillary Glucose (65-105) mg/dl Calcium 9.4 (8.4-10.2) mg/dL Total Bilirubin 0.6 (0.2-1.3) mg/dL AST 28 (14-36) U/L ALT 22 (6-35) U/L Alkaline Phosphatase 82 (38-126) U/L NT-Pro-B Natriuret Pep 9820 H (19.9-100) pg/mL Total Protein 7.0 (6.3-8.2) g/dL Albumin 4.1 (3.5-5.1) g/dL Influenza A (RT-PCR) (Negative) Influenza B (RT-PCR) (Negative) RSV (RT-PCR) (Negative) SARS-CoV-2 RNA (RT-PCR) (Negative) 04/30/24 05/01/24 05/01/24 Range/Units 21:39 00:09 02:49 WBC (4.5-10.0) K/mm3 RBC (4.2-5.4) M/mm3 Hgb (12.0-15.0) g/dL Hct (37.0-47.0) % MCV (80-100) fl MCH (26-34) pg MCHC (32-36) g/dl RDW (11.5-14.5) % Plt Count (150-375) k/mm3 MPV (7.4-10.4) fl Immature Gran % (Auto) (0-0.5) % Neut % (Auto) (45.5-73.1) % Lymph % (Auto) (18.3-44.2) % Gilmer % (Auto) (2.6-8.5) % Eos % (Auto) (0-4.4) % Baso % (Auto) (0.2-1.2) % Lymph # (Auto) (0.9-3.2) K/mm3 Gilmer # (Auto) (0.1-0.6) K/mm3 Eos # (Auto) (0-0.3) K/mm3 Baso # (Auto) (0.0-0.1) K/mm3 Abs Immat Gran (auto) (0.00-0.031) K/mm3 Absolute Neuts (auto) (1.3-6.7) K/mm3 Absolute Nucleated RBC (0.0-0.012) K/mm3 Band Neutrophils % Nucleated RBC % (0.0-0.2) % Atypical Lymphocytes Platelet Estimate (Adequate) Hypochromasia Anisocytosis Schistocytes Methemoglobin (0-1.5) %THb Sodium (137-145) mmol/L Potassium (3.4-5.0) mmol/L Chloride (98-107) mmol/L Carbon Dioxide (22-30) mmol/L Anion Gap (4-12) mmol/L BUN (7-17) mg/dL Creatinine (0.7-1.0) mg/dL Estim Creat Clear Calc ml/min Estimated GFR (59 - ) Glucose (65-110) mg/dL POC Capillary Glucose 424 H 492 H (65-105) mg/dl Calcium (8.4-10.2) mg/dL Total Bilirubin (0.2-1.3) mg/dL AST (14-36) U/L ALT (6-35) U/L Alkaline Phosphatase (38-126) U/L NT-Pro-B Natriuret Pep (19.9-100) pg/mL Total Protein (6.3-8.2) g/dL Albumin (3.5-5.1) g/dL Influenza A (RT-PCR) Negative (Negative) Influenza B (RT-PCR) Negative (Negative) RSV (RT-PCR) Negative (Negative) SARS-CoV-2 RNA (RT-PCR) Negative (Negative) 05/01/24 05/01/24 05/01/24 Range/Units 05:20 05:42 06:50 WBC 9.1 (4.5-10.0) K/mm3 RBC 3.89 L (4.2-5.4) M/mm3 Hgb 10.5 L (12.0-15.0) g/dL Hct 35.5 L (37.0-47.0) % MCV 91.3 (80-100) fl MCH 27.0 (26-34) pg MCHC 29.6 L (32-36) g/dl RDW 14.8 H (11.5-14.5) % Plt Count 254 (150-375) k/mm3 MPV 10.5 H (7.4-10.4) fl Immature Gran % (Auto) 0.4 (0-0.5) % Neut % (Auto) 95.0 H (45.5-73.1) % Lymph % (Auto) 4.0 L (18.3-44.2) % Gilmer % (Auto) 0.4 L (2.6-8.5) % Eos % (Auto) 0.0 (0-4.4) % Baso % (Auto) 0.2 (0.2-1.2) % Lymph # (Auto) 0.36 L (0.9-3.2) K/mm3 [place]mer # (Auto) 0.0 L (0.1-0.6) K/mm3 Eos # (Auto) 0.0 (0-0.3) K/mm3 Baso # (Auto) 0.0 (0.0-0.1) K/mm3 Abs Immat Gran (auto) 0.04 H (0.00-0.031) K/mm3 Absolute Neuts (auto) 8.6 H (1.3-6.7) K/mm3 Absolute Nucleated RBC 0.000 (0.0-0.012) K/mm3 Band Neutrophils % Not Reportable Nucleated RBC % 0.0 (0.0-0.2) % Atypical Lymphocytes Platelet Estimate Adequate (Adequate) Hypochromasia 1+ Anisocytosis 1+ Schistocytes None seen Methemoglobin (0-1.5) %THb Sodium 138 (137-145) mmol/L Potassium 4.2 (3.4-5.0) mmol/L Chloride 101 (98-107) mmol/L Carbon Dioxide 26 (22-30) mmol/L Anion Gap 11 (4-12) mmol/L BUN 34 H (7-17) mg/dL Creatinine 1.12 H (0.7-1.0) mg/dL Estim Creat Clear Calc 25 ml/min Estimated GFR 47 L (59 - ) Glucose 456 H (65-110) mg/dL POC Capillary Glucose 444 H 380 H (65-105) mg/dl Calcium 9.3 (8.4-10.2) mg/dL Total Bilirubin (0.2-1.3) mg/dL AST (14-36) U/L ALT (6-35) U/L Alkaline Phosphatase (38-126) U/L NT-Pro-B Natriuret Pep (19.9-100) pg/mL Total Protein (6.3-8.2) g/dL Albumin (3.5-5.1) g/dL Influenza A (RT-PCR) (Negative) Influenza B (RT-PCR) (Negative) RSV (RT-PCR) (Negative) SARS-CoV-2 RNA (RT-PCR) (Negative) 05/01/24 Range/Units 07:52 WBC (4.5-10.0) K/mm3 RBC (4.2-5.4) M/mm3 Hgb (12.0-15.0) g/dL Hct (37.0-47.0) % MCV (80-100) fl MCH (26-34) pg MCHC (32-36) g/dl RDW (11.5-14.5) % Plt Count (150-375) k/mm3 MPV (7.4-10.4) fl Immature Gran % (Auto) (0-0.5) % Neut % (Auto) (45.5-73.1) % Lymph % (Auto) (18.3-44.2) % Gilmer % (Auto) (2.6-8.5) % Eos % (Auto) (0-4.4) % Baso % (Auto) (0.2-1.2) % Lymph # (Auto) (0.9-3.2) K/mm3 Gilmer # (Auto) (0.1-0.6) K/mm3 Eos # (Auto) (0-0.3) K/mm3 Baso # (Auto) (0.0-0.1) K/mm3 Abs Immat Gran (auto) (0.00-0.031) K/mm3 Absolute Neuts (auto) (1.3-6.7) K/mm3 Absolute Nucleated RBC (0.0-0.012) K/mm3 Band Neutrophils % Nucleated RBC % (0.0-0.2) % Atypical Lymphocytes Platelet Estimate (Adequate) Hypochromasia Anisocytosis Schistocytes Methemoglobin (0-1.5) %THb Sodium (137-145) mmol/L Potassium (3.4-5.0) mmol/L Chloride (98-107) mmol/L Carbon Dioxide (22-30) mmol/L Anion Gap (4-12) mmol/L BUN (7-17) mg/dL Creatinine (0.7-1.0) mg/dL Estim Creat Clear Calc ml/min Estimated GFR (59 - ) Glucose (65-110) mg/dL POC Capillary Glucose 362 H (65-105) mg/dl Calcium (8.4-10.2) mg/dL Total Bilirubin (0.2-1.3) mg/dL AST (14-36) U/L ALT (6-35) U/L Alkaline Phosphatase (38-126) U/L NT-Pro-B Natriuret Pep (19.9-100) pg/mL Total Protein (6.3-8.2) g/dL Albumin (3.5-5.1) g/dL Influenza A (RT-PCR) (Negative) Influenza B (RT-PCR) (Negative) RSV (RT-PCR) (Negative) SARS-CoV-2 RNA (RT-PCR) (Negative) <Raquel Bailey MD - Last Filed: 05/01/24 13:30> ABG Data ABG results: 04/30/24 21:30 Puncture Site Right radial ABG pH 7.379 ABG pCO2 49.0 H ABG pO2 68.5 L ABG PO2/FiO2 Ratio 1.14 ABG HCO3 28.3 H ABG O2 Saturation 93.2 L ABG O2 Content 15.7 L ABG Base Excess 2.4 A-a Gradient 305.4 Oxyhemoglobin 91.9 Carboxyhemoglobin 0.6 Reduced Hemoglobin 7.2 H Total Hemoglobin 12.1 O2 Delivery Device High flow therapy O2 Liters/Min 35.0 FiO2 60 <Matilde Tracey PA-C - Last Filed: 05/01/24 01:02> 04/30/24 21:30 Puncture Site Right radial ABG pH 7.379 ABG pCO2 49.0 H ABG pO2 68.5 L ABG PO2/FiO2 Ratio 1.14 ABG HCO3 28.3 H ABG O2 Saturation 93.2 L ABG O2 Content 15.7 L ABG Base Excess 2.4 A-a Gradient 305.4 Oxyhemoglobin 91.9 Carboxyhemoglobin 0.6 Reduced Hemoglobin 7.2 H Total Hemoglobin 12.1 O2 Delivery Device High flow therapy O2 Liters/Min 35.0 FiO2 60 <Raquel Bailey MD - Last Filed: 05/01/24 13:30> Imaging Data Radiologist's impression: ITS Impressions Chest X-Ray 04/30/24 20:56 IMPRESSION: No acute cardiopulmonary process. <Matilde Tracey PA-C - Last Filed: 05/01/24 01:02> Critical Care Time Critical Care Time Critical Care Time: Yes <Matilde Tracey PA-C - Last Filed: 05/01/24 01:02> Total Critical Care Time: 35 <ASHVIN Brink Last Filed: 05/01/24 01:02> Discharge Plan Discharge Clinical Impression: COPD exacerbation Acute on chronic respiratory failure Qualifiers: Respiratory failure complication: hypoxia Qualified Code(s): J96.21 - Acute and chronic respiratory failure with hypoxia <Matilde Tracey PA-C - Last Filed: 05/01/24 01:02> Patient Disposition: Still a Patient <Matilde Tracey PA-C - Last Filed: 05/01/24 01:02> Condition: Serious <Matilde Tracey PA-C - Last Filed: 05/01/24 01:02>
[2024-04-30 21:32] LABS: Alveolar/Arterial O2 Gradient 305.4 mmHg; Base Excess ABG 2.4 mEq/l (+/-2.0); Carboxyhemoglobin 0.6 % THb (0-2.0); Fractional Inspired Oxygen 60 %; HCO3 ABG 28.3 mEq/l (22.0-26.0); Methemoglobin ABG 0.3 %THb (0-1.5); Oxygen Content ABG 15.7 %vol (16.0-22.0); Oxygen Saturation ABG 93.2 % (95.0-100.0); Oxyhemoglobin 91.9 % THb (90.0-100.0); PO2 ABG 68.5 mmHg (80.0-100.0); PO2 FiO2 Ratio Arterial Blood 1.14 %; Reduced Hemoglobin 7.2 %THb (0-5.0); Total Hemoglobin 12.1 g/dL (12.0-18.0); pH ABG 7.379 (7.350-7.450)
[2024-04-30 21:34] LABS: Device HIGH FLOW THERAPY; Modified Allen's Test Pass; Site Drawn RIGHT RADIAL
[2024-04-30 21:36] LABS: NT Pro B Type Natriuretic Pept 9820 pg/mL (19.9-100)
[2024-04-30] MEDS: levoFLOXacin 750 MG/D5W 150 ML 750 MG/150 ML BAG 100 MG IVPB (21:44)
--- OUTSIDE RECORDS SUMMARY | 2024-04-30 21:53 | XMS_ITS | Referral Summary ---
Author Organization [facility] Address [address] [place] [address] Care Team Providers Care Cell Phone Repair Technician Name Role Phone Unavailable Primary Care Provider Unavailabl e Source Comments [facility],non-owned Affiliates and Associated Physician Practices is amultiple site organization consisting of ambulatory clinics and hospital sitesin [place], [place], [place] and [place]. This disclosure is being madepursuant to the Care Everywhere program and may not contain all information available regarding this patient. Last updated 17.[facility] Encounters Date Type Department Care Team Description 01/30/2024 6:13 AM PARTS PERSON - 02/05/2024 2:09 PM [facility] Hospital Encounter [facility] [address] [id number] Aura Lancaster MD Vissa, Sriram, MD Kaswan, Nitika, MD Zhu, He, MD Hospitalist Discharge Disposition: Home or Self Care from Last 3 Months Allergies No known [...] for 60 days 10.2 g 1 02/05/2024 Active albuterol-ipratr opium (Duo-Neb) 0.5-2.5 (3) MG/3ML nebulizer solution Inhale 3 mL (1 vial) by mouth using nebulizer every 6 hours for 90 days 360 mL 2 02/05/2024 05/05/2024 Active NIFEdipine CR 24hr (Adalat CC) 60 MG tablet Take 1 (one) tablet by mouth once daily for 60 days 30 tablet 1 02/06/2024 Active senna-docusate (Senokot-S) 8.6-50 MG tablet Take 1 (one) tablet by mouth 2 times daily for 60 days 60 tablet 1 02/05/2024 04/05/2024 Active Problems Problem Noted Date Diagnosed Date [...] and heating? Not hard at all 01/30/2024 [facility] [place] [facility] - Occupational Stress [...] any time in the past 12 m [facility], were you homeless or living in a prison (including now)? No 01/30/2024 Sex and Gender Information Value Date Recorded Sex Assigned at Not on file Gender Identity Not on file Sexual Orientation Not on file Last Filed Vital Signs Vital Sign Reading Time Taken Comments Blood Pressure 143/58 02/05/2024 12:01 PM PARTS PERSON Pulse 79 02/05/2024 12:01 PM PARTS PERSON Temperature 36.2 C (97.1 F) 02/05/2024 8:01 AM PARTS PERSON Respiratory Rate 26 02/05/2024 12:01 PM PARTS PERSON Oxygen Saturation 94% 02/05/2024 12:01 PM PARTS PERSON Inhaled Oxygen Concentration 35% 02/01/2024 1 1:38 PM PARTS PERSON Weight 64.6 kg (142 lb 5.6 oz) 01/30/2024 5:14 P M PARTS PERSON Height 152.4 cm (5') 01/30/2024 5:14 PM PARTS PERSON Body Mass Index 27.8 01/30/2024 5:14 PM PARTS PERSON Functional Status Functional Status Response Date of [...] CARDIAC RHYTHM STRIP ORDER 02/07/2024 10:59 PM PARTS PERSON GLUCOSE - POINT OF CARE Routine 02/05/2024 11:55 AM PARTS PERSON XR CHEST 1VW PORTABLE Routine 02/05/2024 9:40 AM PARTS PERSON Acute hypoxic respiratory failure (HCC) GLUCOSE - POINT OF CARE Routine 02/05/2024 8:38 AM PARTS PERSON GLUCOSE - POINT OF CARE Routine 02/05/2024 8:07 AM PARTS PERSON GLUCOSE - POINT OF CARE Routine 02/05/2024 8:02 AM PARTS PERSON MAGNESIUM BLOOD AM Draw 02/05/2024 5:32 AM PARTS PERSON RENAL FUNCTION PANEL AM Draw 02/05/2024 5:32 AM PARTS PERSON CBC W AUTO DIFFERENTIAL AM Draw 02/05/2024 5:32 AM PARTS PERSON GLUCOSE - POINT OF CARE Routine 02/04/2024 8:35 PM PARTS PERSON GLUCOSE - POINT OF CARE Routine 02/04/2024 5:07 PM PARTS PERSON GLUCOSE - POINT OF CARE Routine 02/04/2024 12:05 PM PARTS PERSON GLUCOSE - POINT OF CARE Routine 02/04/2024 8:36 AM PARTS PERSON GLUCOSE - POINT OF CARE Routine 02/04/2024 8:05 AM PARTS PERSON MAGNESIUM BLOOD AM Draw 02/04/2024 1:41 AM PARTS PERSON RENAL FUNCTION PANEL AM Draw 02/04/2024 1:41 AM PARTS PERSON CBC W AUTO DIFFERENTIAL AM Draw 02/04/2024 1:41 AM PARTS PERSON GLUCOSE - POINT OF CARE Routine 02/03/2024 8:21 PM PARTS PERSON GLUCOSE - POINT OF CARE Routine 02/03/2024 5:40 PM PARTS PERSON GLUCOSE - POINT OF CARE Routine 02/03/2024 12:10 PM PARTS PERSON BASIC METABOLIC PANEL (CALCIUM TOTAL) AM Draw 02/03/2024 11:01 AM PARTS PERSON GLUCOSE - POINT OF CARE Routine 02/03/2024 8:42 AM PARTS PERSON VANCOMYCIN LEVEL RANDOM Timed 02/02/2024 9:29 PM PARTS PERSON GLUCOSE - POINT OF CARE Routine 02/02/2024 8:47 PM PARTS PERSON GLUCOSE - POINT OF CARE Routine 02/02/2024 5:45 PM PARTS PERSON ECHO COMPLETE Routine 02/02/2024 1:00 PM PARTS PERSON Acute hypoxic respiratory failure (HCC) BASIC METABOLIC PANEL (CALCIUM TOTAL) AM Draw 02/02/2024 11:37 AM PARTS PERSON GLUCOSE - POINT OF CARE Routine 02/02/2024 11:33 AM PARTS PERSON XR CHEST 1VW PORTABLE Routine 02/02/2024 8:46 AM PARTS PERSON Acute hypoxic respiratory failure (HCC) GLUCOSE - POINT OF CARE Routine 02/02/2024 7:49 AM PARTS PERSON GLUCOSE - POINT OF CARE Routine 02/01/2024 8:33 PM PARTS PERSON VANCOMYCIN LEVEL RANDOM Routine 02/01/2024 6:17 PM PARTS PERSON GLUCOSE - POINT OF CARE Routine 02/01/2024 5:07 PM PARTS PERSON GLUCOSE - POINT OF CARE Routine 02/01/2024 11:46 AM PARTS PERSON CULTURE BLOOD Timed 02/01/2024 11:16 AM PARTS PERSON CULTURE BLOOD Timed 02/01/2024 11:12 AM PARTS PERSON GLUCOSE - POINT OF CARE Routine 02/01/2024 8:02 AM PARTS PERSON RENAL FUNCTION PANEL AM Draw 02/01/2024 4:26 AM PARTS PERSON GLUCOSE - POINT OF CARE Routine 01/31/2024 11:23 PM PARTS PERSON GLUCOSE - POINT OF CARE Routine 01/31/2024 10:52 PM PARTS PERSON GLUCOSE - POINT OF CARE Routine 01/31/2024 8:41 PM PARTS PERSON GLUCOSE - POINT OF CARE Routine 01/31/2024 6:14 PM PARTS PERSON GLUCOSE - POINT OF CARE Routine 01/31/2024 3:17 PM PARTS PERSON GLUCOSE - POINT OF CARE Routine 01/31/2024 12:14 PM PARTS PERSON GLUCOSE - POINT OF CARE Routine 01/31/2024 9:48 AM PARTS PERSON GLUCOSE - POINT OF CARE Routine 01/31/2024 8:13 AM PARTS PERSON BASIC METABOLIC PANEL (CALCIUM TOTAL) AM Draw 01/31/2024 5:09 AM PARTS PERSON PROCALCITONIN LEVEL AM Draw 01/31/2024 5 :09 AM PARTS PERSON CBC W/O DIFFERENTIAL AM Draw 01/31/2024 5:09 AM PARTS PERSON HEMOGLOBIN A1C Routine 01/31/2024 5:09 AM PARTS PERSON B-TYPE NATRIURETIC PEPTIDE Routine 01/31/2024 5:09 AM PARTS PERSON RESPIRATORY PANEL WITH SARS-COV-2 BY PCR (STL) Routine 01/31/2024 12:07 AM PARTS PERSON from Last 3 Months Results * CARDIAC RHYTHM STRIP ORDER (02/07/2024 10:59 PM PARTS PERSON) Narrative 02/07/2024 10:59 PM PARTS PERSON Ordered by an unspecified provider. Scanned Document CARDIAC SERVICES ORD ERABLES * (ABNORMAL) GLUCOSE - POINT OF CARE (02/05/2024 11:55 AM PARTS PERSON) Only the most recent of29 resultswithin the time period is included. Glucose WB/POC 181(H) 70 - 99 mg/dL 02/05/2024 12:42 PM PARTS PERSON [facility] Specimen Type Cap Fingerstick 2023 12:42 PM PARTS PERSON [facility] Blood BLOOD SPECIMEN / Unknown 02/05/2024 11:55 AM PARTS PERSON 02/05/2024 12:42 PM PARTS PERSON Boogie Stephens MD LAB - POINT OF CARE ORDERABLES [facility] [address] [place] [address] * XR Chest 1Vw Portable (02/05/2024 9:40 AM PARTS PERSON) Only the most recent of2 resultswithin the time period is included. Anatomical Region Laterality Modality Chest Computed Radiogr aphy 02/05/2024 10:0 6 AM PARTS PERSON Narrative 02/05/2024 10:06 AM PARTS PERSON PROCEDURE(s): XR CHEST 1VW PORTABLE DATE AND [...] CBC W AUTO DIFFERENTIAL (02/05/2024 5:32 AM PARTS PERSON) Only the most recent of2 resultswithin the time period is included. WBC 12.5(H) 4.0 - 10.7 x10E9/L 02/05/2024 5:54 AM PARTS PERSON [facility] RBC Count 4.33 3.90 - 5.20 x10E12/L 02/05/2024 5:54 AM PARTS PERSON [facility] Hemoglobin 12.0 11.9 - 15.8 g/dL 02/05/2024 5:54 AM PARTS PERSON [facility] Hematocrit 39.6 34.8 - 46.1 % 02/05/2024 5:54 AM [facility] MCV 91.5 80.0 - 98.0 fL 02/05/2024 5:54 AM [facility] MCH 27.7 26.7 - 33.6 pg 02/05/2024 5:54 AM [facility] MCHC 30.3(L) 31.7 - 36.3 g/dL 02/05/2024 5:54 AM [facility] RDW-CV 15.8(H) 11.3 - 14.8 % 02/05/2024 5:54 AM [facility] Platelet Count 305 150 - 420 x10E9/L 02/05/2024 5:54 AM [facility] MPV 10.6 7.8 - 11.4 fL 02/05/2024 5:54 AM [facility] Neutrophil % 65.7 41.0 - 74.0 % 02/05/2024 5:54 AM [facility] Lymphocyte % 20.8 17.0 - 47.0 % 02/05/2024 5:54 AM [facility] Monocyte % 7.3 3.0 - 11.0 % 02/05/2024 5:54 AM [facility] Eosinophil % 1.8 0.0 - 7.0 % 02/05/2024 5:54 AM [facility] Basophil % 0.6 0.0 - 1.6 % 02/05/2024 5:54 AM [facility] Immature Granulocytes % 3.8(H) 0.0 - 1.0 % 02/05/2024 5:54 AM [facility] Neutrophil Absolute 8.24(H) 1.60 - 7.50 x10E9/L 02/05/2024 5:54 AM [facility] Lymphocyte Absolute 2.61 1.00 - 4.40 x10E9/L 02/05/2024 5:54 AM [facility] Monocyte Absolute 0.91 0.15 - 1.00 x10E9/L 02/05/2024 5:54 AM [facility] Eosinophil Absolute 0.22 0.00 - 0.60 x10E9/L 02/05/2024 5:54 AM [facility] Basophil Absolute 0.07 0.00 - 0.13 x10E9/L 02/05/2024 5:54 AM [facility] NRBC 0.3(H) <=0.0 /100 WBC 02/05/2024 5:54 AM [facility] Blood BLOOD SPECIMEN / Unknown Venipuncture / Unknown 02/05/2024 5:32 AM PARTS PERSON 02/05/2024 5:40 AM [facility] Boogie Stephens MD LAB - HEMATOLOGY ORD ERABLES [facility] [address] [place] [address] * (ABNORMAL) RENAL FUNCTION PANEL (02/05/2024 5:32 AM [facility]) Only the most recent of3 resultswithin the time period is included. Glucose 55(L) 70 - 99 mg/dL 02/05/2024 5:57 AM [facility] Sodium 144 136 - 145 mmol/L 02/05/2024 5:57 AM [facility] Potassium 5.0 3.5 - 5.1 mmol/L 02/05/2024 5:57 AM [facility] Comment:Specimen Moderately Hemolyzed Chloride 105 98 - 107 mmol/L 02/05/2024 5:57 AM [facility] CO2 30(H) 22 - 29 mmol/L 02/05/2024 5:57 AM [facility] Calcium 8.8 8.4 - 10.4 mg/dL 02/05/2024 5:57 AM [facility] Anion Gap 9 6 - 16 mmol/L 02/05/2024 5:57 AM [facility] BUN 51(H) 7 - 26 mg/dL 02/05/2024 5:57 AM [facility] Creatinine 1.48(H) 0.57 - 1.11 mg/dL 02/05/2024 5:57 AM [facility] Albumin 2.6(L) 3.4 - 5.0 gm/dL 02/05/2024 5:57 AM [facility] Phosphorus 4.4 2.5 - 4.5 mg/dL 02/05/2024 5:57 AM [facility] eGFR by CKD-EPI 35(L) >=90 mL/min/1.7 3 m2 02/05/2024 5:57 AM PARTS PERSON [facility] Blood BLOOD SPECIMEN / Unknown Venipuncture / Unknown 02/05/2024 5:32 AM PARTS PERSON 02/05/2024 5:40 AM PARTS PERSON Boogie Stephens MD LAB - CHEMISTRY ORDFortunato GAYLE Performing Organization Address [facility] Co de Phone Number [facility] [id number] [place] [id number] * MAGNESIUM BLOOD (02/05/2024 5:32 AM PARTS PERSON) Only the most recent of2 resultswithin the time period is included. Magnesium 2.3 1.6 - 2.6 mg/dL 02/05/2024 5:56 AM [facility] Blood BLOOD SPECIMEN / Unknown Venipuncture / Unknown 02/05/2024 5:32 AM PARTS PERSON 02/05/2024 5:40 AM PARTS PERSON Boogie Stephens MD LAB - CHEMISTRY ORDFortunato GAYLE Performing Organization Address [facility] de Phone Number [facility] [id number] [place] [id number] * (ABNORMAL) BASIC METABOLIC PANEL (CALCIUM TOTAL) (02/03/2024 11:01 AM PARTS PERSON) Only the most recent of3 resultswithin the time period is included. Glucose 203(H) 70 - 99 mg/dL 02/03/2024 11:32 AM [facility] Sodium 146(H) 136 - 145 mmol/L 02/03/2024 11:32 AM [facility] Potassium 4.1 3.5 - 5.1 mmol/L 02/03/2024 11:32 AM [facility] Chloride 101 98 - 107 mmol/L 02/03/2024 11:32 AM [facility] CO2 31(H) 22 - 29 mmol/L 02/03/2024 11:32 AM [facility] Calcium 9.7 8.4 - 10.4 mg/dL 02/03/2024 11:32 AM PARTS PERSON [facility] Anion Gap 14 6 - 16 mmol/L 02/03/2024 11:32 AM PARTS PERSON [facility] BUN 43(H) 7 - 26 mg/dL 02/03/2024 11:32 AM PARTS PERSON [facility] Creatinine 1.43(H) 0.57 - 1.11 mg/dL 02/03/2024 11:32 AM PARTS PERSON [facility] eGFR by CKD-EPI 37(L) >=90 mL/min/1.7 3 m2 02/03/2024 11:32 AM PARTS PERSON [facility] Blood BLOOD SPECIMEN / Unknown Venipuncture / Unknown 02/03/2024 11:01 AM PARTS PERSON 02/03/2024 11:15 AM PARTS PERSON Boogie Stephens MD LAB - CHEMISTRY ANGEL GAYLE Performing Organization Address [facility] de Phone Number [facility] [address] [place] [address] * VANCOMYCIN LEVEL RANDOM (02/02/2024 9:29 PM PARTS PERSON) Only the most recent of2 resultswithin the time period is included. Vancomycin Random 14.8 <=40.0 ug/mL 02/02/2024 9:52 PM PARTS PERSON [facility] Blood BLOOD SPECIMEN / Unknown Venipuncture / Unknown 02/02/2024 9:29 PM PARTS PERSON 02/02/2024 9:36 PM PARTS PERSON Narrative [facility] - 02/02/2024 9:52 PM PARTS PERSON No reference range available for random Vancomycin levels. All results interpreted by ordering physician. Boogie Stephens MD LAB - CHEMISTRY ANGEL GAYLE Performing Organization Address [facility] Co de Phone Number [facility] [address] [place] [address] * ECHO COMPLETE (02/02/2024 1:00 PM PARTS PERSON) LA vol index 0.026 l/m [facility] FUJI PACS Myocardial strain charge [...] Region Laterality Modality Ultrasound 02/02/2024 9:42 AM PARTS PERSON Narrative 02/03/2024 9:14 AM PARTS PERSON Summary * The left ventricle is normal in size. * Left ventricular systolic function is normal with an estimated ejection fraction of 55-60% by visual estimate. * Left ventricular segmental wall motion is normal. * The left ventricular mass is mildly increased with concentric hypertrophy. * The left ventricular diastolic function is consistent with grade I diastolic dysfunction and normal left atrial filling pressure. * The right ventricle is normal in size. * Right ventricular systolic function is normal. * The left atrium is normal in size with a left atrial volume index of 26 ml/m2 by BP MOD. * The right atrium is normal in size. * There is mild mitral valve regurgitation. * There is mild tricuspid valve regurgitation. * The pulmonary artery systolic pressure is borderline elevated, 38 mmHg. Patient Info Name: Nikki Bonilla Age: 83 years : 1940 Gender: Female Ht: 60 in Wt: 142 lb BSA: 1.67 m2 HR: 95 bpm BP: 180 / 80 mmHg Exam Date: 02/02/2024 9:42 AM Patient Status: I/P Study Site: [facility] Primary Location: [facility] EStudy Info Exam Type: ECHO COMPLETE Indications J96.01 - Acute hypoxic respiratory failure (HCC) Procedure(s) * A complete 2D, color Doppler, spectral Doppler, and M-Mode transthoracic echocardiogram was performed. Staff Referring Physician: Kb Freire Ordering Provider: Kb Freire Attending Physician: Kb Freire Software Manager: Arpita Dozier Left Ventricle The left ventricle is normal in size. Left ventricular systolic function is normal with an estimated ejection fraction of 55-60% by visual estimate. Left ventricular segmental wall motion is normal. The left ventricular mass is mildly increased with concentric hypertrophy. The left ventricular diastolic function is consistent with grade I diastolic dysfunction and normal left atrial filling pressure. Right Ventricle The right ventricle is normal in size. Right ventricular systolic function is normal. Left Atrium The left atrium is normal in size with a left atrial volume index of 26 ml/m2 by BP MOD. Right Atrium The right atrium is normal in size. Atrial Septum Intact interatrial septum visualized by 2D and color Doppler imaging. Aortic Valve The aortic valve is trileaflet. There is no aortic valve stenosis. There is no aortic valve regurgitation. Pulmonic Valve The pulmonic valve is normal. There is no pulmonic valve stenosis. There is no pulmonic regurgitation. Mitral Valve The mitral valve is normal. There is no mitral valve stenosis. There is mild mitral valve regurgitation. Tricuspid Valve The tricuspid valve is normal. There is mild tricuspid valve regurgitation. The pulmonary artery systolic pressure is borderline elevated, 38 mmHg. Inferior Vena Cava The inferior vena cava is normal in size (< 2.1 cm). There is > 50% collapse of the IVC upon inspiration with an estimated right atrial pressure of 3 mmHg. Pericardium/Pleural There is no pericardial effusion. Aorta [...] by Hardik Choudhary on 02/03/2024 09:14 AM Procedure Note Hardik [...] 9:42 AM Patient Status: I/P Study Site: [facility] Primary Location: [facility] EStudy Info Exam Type: ECHO COMPLETE Indications J96.01 - Acute hypoxic respiratory failure (HCC) Procedure(s) * A complete 2D, color Doppler, spectral Doppler, and M-Modetransthoracic echocardiogram was performed. Staff Referring Physician: Kb Freire Ordering Provider: Kb Freire Attending Physician: Kb Freire Software Manager: Arpita Dozier Left Ventricle The left ventricle [...] CUPID * CULTURE BLOOD (02/01/2024 11:16 AM PARTS PERSON) Only the most recent of2 resultswithin the time period is included. Culture No growth day 5 ELISABET 02/06/2024 2:31 PM PARTS PERSON [facility] Blood PERIPHERAL BLOOD / Unknown Venipuncture / Unknown 02/01/2024 11:16 AM PARTS PERSON 02/01/2024 11:27 AM PARTS PERSON Boogie Stephens MD LAB - MICROBIOLOGY O RDERABLES [facility] [address] [place] [phone] * (ABNORMAL) PROCALCITONIN LEVEL (01/31/2024 5:09 AM PARTS PERSON) Procalcitonin 14.84(H) <0.10 ng/mL 01/31/2024 5:59 AM PARTS PERSON [facility] Blood BLOOD SPECIMEN / Unknown Venipuncture / Unknown 01/31/2024 5:09 AM PARTS PERSON 01/31/2024 5:17 AM PARTS PERSON Narrative [facility] - 01/31/2024 5:59 AM PARTS PERSON The change in procalcitonin (PCT) concentration over time provides support in decision making on antibiotic discontinuation for suspected or confirmed septic patients. Follow-up samples should be tested once every 1-2 days based upon physician discretion taking into account the patient s evolution and progress. Consider discontinuation of antibiotic therapy if the PCT current is <= 0.5 ng/mL or if the delta PCT is > 80%. Duration of antibiotics should not be determined solely on PCT; established guidelines for the indication should be followed. PCT peak: Highest observed PCT concentration PCT current: Most recent PCT concentration Calculate delta PCT using the following equation: Delta PCT = PCT Peak PCT current X 100% PCT Peak The Change in Procalcitonin Calculator is available at [email or web address] If clinical picture has not improved and PCT remains high, reevaluate and consider treatment failure or other causes. Kaitlin Norris MD LAB - CHEMISTRY ANGEL GAYLE [facility] [address] [place] [address] * (ABNORMAL) HEMOGLOBIN A1C (01/31/2024 5:09 AM PARTS PERSON) Hemoglobin A1c 6.8(H) <5.7 % 01/31/2024 5:29 AM PARTS PERSON [facility] Estimated Average Glucose 148 mg/dL 01/31/2024 5:29 AM PARTS PERSON [facility] Blood BLOOD SPECIMEN / Unknown Venipuncture / Unknown 01/31/2024 5:09 AM PARTS PERSON 01/31/2024 5:17 AM PARTS PERSON Narrative [facility] - 01/31/2024 5:29 AM PARTS PERSON HbA1c Interpretation: Normal: < 5.7% Pre-diabetes: 5.7-6.4% Diabetes: Equal to or greater than 6.5% Test results diagnostic of diabetes should be repeated for confirmation. Treatment target values recommended by ADA and other clinical organizations should be used to evaluate metabolic control in patients. This test should not replace glucose testing for patients with Type 1 diabetes, pediatric patients, or women. Falsely low HbA1c results may be observed in patients with clinical conditions that shorten erythrocyte life span or decrease mean erythrocyte age such as the presence of unstable hemoglobin variants, elevated hemoglobin F level or other causes of hemolytic anemia. HbA1c may not accurately reflect glycemic control when clinical conditions that affect erythrocyte survival are present. Severe Iron deficiency anemia may yield falsely high results. Hemoglobin A1c assay should not be used to diagnose or monitor diabetes in patients with malignancy, recent blood transfusion, chronic kidney or liver disease. This method may yield falsely low results when hemoglobin (HbF) exceeds 5% in the specimen. The [employer] assay for the measurement of HbA1c is a National Glycohemoglobin Standardization Program (NGSP) certified method. Kb Freire MD LAB - CHEMISTRY ANGEL GAYLE Performing Organization Address City/[facility]/ZIP Co de Phone Number [facility] [address] [place] [address] * (ABNORMAL) CBC W/O DIFFERENTIAL (01/31/2024 5:09 AM PARTS PERSON) [facility] WBC 15.8(H) 4.0 - 10.7 x10E9/L 01/31/2024 5:32 AM PARTS PERSON [facility] RBC Count 3.80(L) 3.90 - 5.20 x10E12/L 01/31/2024 5:32 AM [facility] Hemoglobin 10.5(L) 11.9 - 15.8 g/dL 01/31/2024 5:32 AM [facility] Hematocrit 35.7 34.8 - 46.1 % 01/31/2024 5:32 AM [facility] MCV 93.9 80.0 - 98.0 fL 01/31/2024 5:32 AM [facility] MCH 27.6 26.7 - 33.6 pg 01/31/2024 5:32 AM [facility] MCHC 29.4(L) 31.7 - 36.3 g/dL 01/31/2024 5:32 AM [facility] RDW-CV 14.9(H) 11.3 - 14.8 % 01/31/2024 5:32 AM [facility] Platelet Count 304 150 - 420 x10E9/L 01/31/2024 5:32 AM [facility] MPV 10.8 7.8 - 11.4 fL 01/31/2024 5:32 AM [facility] Blood BLOOD SPECIMEN / Unknown Venipuncture / Unknown 01/31/2024 5:09 AM PARTS PERSON 01/31/2024 5:17 AM PARTS PERSON Kaitlin Norris MD LAB - HEMATOLOGY ORD ERABLES Performing Organization Address City/[facility]/ZIP Co de Phone Number [facility] [address] [place] [address] * (ABNORMAL) B-TYPE NATRIURETIC PEPTIDE (01/31/2024 5:09 AM PARTS PERSON) [facility] BNP 1,514(H) <=100 pg/mL 01/31/2024 6:26 AM PARTS PERSON [facility] Blood BLOOD SPECIMEN / Unknown Venipuncture / Unknown 01/31/2024 5:09 AM PARTS PERSON 01/31/2024 5:17 AM PARTS PERSON Kb Freire MD LAB - CHEMISTRY ANGEL GAYLE [facility] [address] [place] [address] * (ABNORMAL) RESPIRATORY PANEL WITH SARS-COV-2 BY PCR (STL) (01/31/2024 12:07 AM PARTS PERSON) [facility] Adenovirus PCR Not detected Not detected 01/31/2024 6:33 AM PARTS PERSON [facility] Coronavirus 229E PCR Not detected Not detected 01/31/2024 6:33 AM PARTS PERSON [facility] Coronavirus HKU1 PCR Not detected Not detected 01/31/2024 6:33 AM PARTS PERSON [facility] Coronavirus NL63 PCR Not detected Not detected 01/31/2024 6:33 AM PARTS PERSON [facility] Coronavirus OC43 PCR Not detected Not detected 01/31/2024 6:33 AM PARTS PERSON [facility] COVID-19 PCR Not detected Not detected 01/31/2024 6:33 AM PARTS PERSON [facility] Human Metapneumovirus PCR Not detected Not detected 01/31/2024 6:33 AM PARTS PERSON [facility] Human Rhinovirus/Enterov irus PCR Detected(A) Not detected 01/31/2024 6:33 AM PARTS PERSON [facility] Influenza A PCR Not detected Not detected 01/31/2024 6:33 AM PARTS PERSON [facility] Influenza B PCR Not detected Not detected 01/31/2024 6:33 AM PARTS PERSON [facility] Parainfluenza Virus 1 PCR Not detected Not detected 01/31/2024 6:33 AM PARTS PERSON [facility] Parainfluenza Virus 2 PCR Not detected Not detected 01/31/2024 6:33 AM PARTS PERSON [facility] Parainfluenza Virus 3 PCR Not detected Not detected 01/31/2024 6:33 AM PARTS PERSON [facility] Parainfluenza Virus 4 PCR Not detected Not detected 01/31/2024 6:33 AM PARTS PERSON [facility] Respiratory Syncytial Virus PCR Not detected Not detected 01/31/2024 6:33 AM PARTS PERSON [facility] Bordetella parapertussis PCR Not detected Not detected 01/31/2024 6:33 AM PARTS PERSON [facility] Bordetella pertussis PCR Not detected Not detected 01/31/2024 6:33 AM PARTS PERSON [facility] Chlamydia pneumoniae PCR Not detected Not detected 01/31/2024 6:33 AM PARTS PERSON [facility] Mycoplasma pneumoniae PCR Not detected Not detected 01/31/2024 6:33 AM PARTS PERSON [facility] Microbiology SPECIMEN FROM NASOPHARYNGEAL STRUCTURE / Unknown Collection / Unknown 01/31/2024 12:07 AM PARTS PERSON 01/31/2024 12:17 AM PARTS PERSON Narrative [facility] - 01/31/2024 6:33 AM PARTS PERSON Contact and Droplet Precautions Required. This nucleic amplification assay has received FDA authorization via the [employer]. Kaitlin Norris MD LAB - MICROBIOLOGY O RDERABLES [facility] [address] [place], [place] [address], [facility] [phone] from Last 3 Months Advance Directives * [...]
--- OUTSIDE RECORDS SUMMARY | 2024-04-30 21:53 | XMS_ITS | Clinical Summary ---
Author Organization [facility] Address [address] [place] [address] Care Team Providers Care Incubator Tender Name Role Phone Unavailable Primary Care Provider Unavailabl e Source Comments [facility],non-owned Affiliates and Associated Physician Practices is amultiple site organization consisting of ambulatory clinics and hospital sitesin [place], [place], [place] and [place]. This disclosure is being madepursuant to the Care Everywhere program and may not contain all information available regarding this patient. Last updated 17.[facility] Allergies No known active allergies Medications * [...] Department Care Team Description 01/30/2024 6:13 AM DRIVER RECRUITER - 02/05/2024 2:09 PM [facility] Hospital Encounter [facility] [address] [place] [address] Aura Lancaster MD Vissa, Sriram, MD Kaswan, Nitika, MD Zhu, He, MD Hospitalist Discharge Disposition: Home or Self Care from Last 3 Months Social History Tobacco [...] and heating? Not hard at all 01/30/2024 [facility] [place] [facility] [...] No 01/30/2024 Housing Stability Vital Sign Answer Dvae e Recorded In the last 12 months, was t here a time when you were not able to pay the mortgage or rent on time? No 01/30/2024 In the past 12 months, how m any times have you moved where you were living? 1 01/30/2024 At any time in the past 12 m [facility], were you homeless or living in a usp (including now)? No 01/30/2024 Sex and Gender Information Value Date Recorded Sex Assigned at Not on file Gender Identity Not on file Sexual Orientation Not on file Last Filed Vital Signs Vital Sign Reading Time Taken Comments Blood Pressure 143/58 02/05/2024 12:01 PM DRIVER RECRUITER Pulse 79 02/05/2024 12:01 PM DRIVER RECRUITER Temperature 36.2 C (97.1 F) 02/05/2024 8:01 AM DRIVER RECRUITER Respiratory Rate 26 02/05/2024 12:01 PM DRIVER RECRUITER Oxygen Saturation 94% 02/05/2024 12:01 PM DRIVER RECRUITER Inhaled Oxygen Concentration 35% 02/01/2024 1 1:38 PM DRIVER RECRUITER Weight 64.6 kg (142 lb 5.6 oz) 01/30/2024 5:14 P M DRIVER RECRUITER Height 152.4 cm (5') 01/30/2024 5:14 PM DRIVER RECRUITER Body Mass Index 27.8 01/30/2024 5:14 PM DRIVER RECRUITER Plan of Treatment Health Maintenance Due Date Last Done Comments BONE DENSITY TESTING 1941 DTAP/TDAP/TD VACCINES (1 - Tdap) 1960 PNEUMOCOCCAL VACCINE 50+ (1 of 2 - PCV) 1960 ZOSTER VACCINE (1 of 2) 10/17/1991 Respiratory Syncytial Virus (RSV) Vaccine Pt: or over 60 yrs (1 - 1-dose 75+ series) 2016 COVID-19 VACCINE (1 - season) 2023 INFLUENZA VACCINE (#1) 2023 , 12/19/2020, 11/08/2019, Additional history exists DEPRESSION SCREENING 02/16/2024 MEDICARE AWV CALENDAR YEAR 2024 HEPATITIS B VACCINE Aged Out No longe r eligible based on patient's age to complete this topic HIB VACCINE Aged Out No longer eligi ble based on patient's age to complete this topic HPV VACCINE Aged Out No longer eligi ble based on patient's age to complete this topic MENINGOCOCCAL (Group B) VACCINE SHARED DECISION-MAKING Aged Out No longer eligible based on patient's age to complete this topic MENINGOCOCCAL GROUPS A/C/Y/W VACCINE Aged Out No longer eligible based on patient's age to complete this topic Procedures Procedure Name Priority Date/Time Associated Diagnosis Comments CARDIAC RHYTHM STRIP ORDER 02/07/2024 10:59 PM DRIVER RECRUITER GLUCOSE - POINT OF CARE Routine 02/05/2024 11:55 AM DRIVER RECRUITER XR CHEST 1VW PORTABLE Routine 02/05/2024 9:40 AM DRIVER RECRUITER Acute hypoxic respiratory failure (HCC) GLUCOSE - POINT OF CARE Routine 02/05/2024 8:38 AM DRIVER RECRUITER GLUCOSE - POINT OF CARE Routine 02/05/2024 8:07 AM DRIVER RECRUITER GLUCOSE - POINT OF CARE Routine 02/05/2024 8:02 AM DRIVER RECRUITER MAGNESIUM BLOOD AM Draw 02/05/2024 5:32 AM DRIVER RECRUITER RENAL FUNCTION PANEL AM Draw 02/05/2024 5:32 AM DRIVER RECRUITER CBC W AUTO DIFFERENTIAL AM Draw 02/05/2024 5:32 AM DRIVER RECRUITER GLUCOSE - POINT OF CARE Routine 02/04/2024 8:35 PM DRIVER RECRUITER GLUCOSE - POINT OF CARE Routine 02/04/2024 5:07 PM DRIVER RECRUITER GLUCOSE - POINT OF CARE Routine 02/04/2024 12:05 PM DRIVER RECRUITER GLUCOSE - POINT OF CARE Routine 02/04/2024 8:36 AM DRIVER RECRUITER GLUCOSE - POINT OF CARE Routine 02/04/2024 8:05 AM DRIVER RECRUITER MAGNESIUM BLOOD AM Draw 02/04/2024 1:41 AM DRIVER RECRUITER RENAL FUNCTION PANEL AM Draw 02/04/2024 1:41 AM DRIVER RECRUITER CBC W AUTO DIFFERENTIAL AM Draw 02/04/2024 1:41 AM DRIVER RECRUITER GLUCOSE - POINT OF CARE Routine 02/03/2024 8:21 PM DRIVER RECRUITER GLUCOSE - POINT OF CARE Routine 02/03/2024 5:40 PM DRIVER RECRUITER GLUCOSE - POINT OF CARE Routine 02/03/2024 12:10 PM DRIVER RECRUITER BASIC METABOLIC PANEL (CALCIUM TOTAL) AM Draw 02/03/2024 11:01 AM DRIVER RECRUITER GLUCOSE - POINT OF CARE Routine 02/03/2024 8:42 AM DRIVER RECRUITER VANCOMYCIN LEVEL RANDOM Timed 02/02/2024 9:29 PM DRIVER RECRUITER GLUCOSE - POINT OF CARE Routine 02/02/2024 8:47 PM DRIVER RECRUITER GLUCOSE - POINT OF CARE Routine 02/02/2024 5:45 PM DRIVER RECRUITER ECHO COMPLETE Routine 02/02/2024 1:00 PM DRIVER RECRUITER Acute hypoxic respiratory failure (HCC) BASIC METABOLIC PANEL (CALCIUM TOTAL) AM Draw 02/02/2024 11:37 AM DRIVER RECRUITER GLUCOSE - POINT OF CARE Routine 02/02/2024 11:33 AM DRIVER RECRUITER XR CHEST 1VW PORTABLE Routine 02/02/2024 8:46 AM DRIVER RECRUITER Acute hypoxic respiratory failure (HCC) GLUCOSE - POINT OF CARE Routine 02/02/2024 7:49 AM DRIVER RECRUITER GLUCOSE - POINT OF CARE Routine 02/01/2024 8:33 PM DRIVER RECRUITER VANCOMYCIN LEVEL RANDOM Routine 02/01/2024 6:17 PM DRIVER RECRUITER GLUCOSE - POINT OF CARE Routine 02/01/2024 5:07 PM DRIVER RECRUITER GLUCOSE - POINT OF CARE Routine 02/01/2024 11:46 AM DRIVER RECRUITER CULTURE BLOOD Timed 02/01/2024 11:16 AM DRIVER RECRUITER CULTURE BLOOD Timed 02/01/2024 11:12 AM DRIVER RECRUITER GLUCOSE - POINT OF CARE Routine 02/01/2024 8:02 AM DRIVER RECRUITER RENAL FUNCTION PANEL AM Draw 02/01/2024 4:26 AM DRIVER RECRUITER GLUCOSE - POINT OF CARE Routine 01/31/2024 11:23 PM DRIVER RECRUITER GLUCOSE - POINT OF CARE Routine 01/31/2024 10:52 PM DRIVER RECRUITER GLUCOSE - POINT OF CARE Routine 01/31/2024 8:41 PM DRIVER RECRUITER GLUCOSE - POINT OF CARE Routine 01/31/2024 6:14 PM DRIVER RECRUITER GLUCOSE - POINT OF CARE Routine 01/31/2024 3:17 PM DRIVER RECRUITER GLUCOSE - POINT OF CARE Routine 01/31/2024 12:14 PM DRIVER RECRUITER GLUCOSE - POINT OF CARE Routine 01/31/2024 9:48 AM DRIVER RECRUITER GLUCOSE - POINT OF CARE Routine 01/31/2024 8:13 AM DRIVER RECRUITER BASIC METABOLIC PANEL (CALCIUM TOTAL) AM Draw 01/31/2024 5:09 AM DRIVER RECRUITER PROCALCITONIN LEVEL AM Draw 01/31/2024 5 :09 AM DRIVER RECRUITER CBC W/O DIFFERENTIAL AM Draw 01/31/2024 5:09 AM DRIVER RECRUITER HEMOGLOBIN A1C Routine 01/31/2024 5:09 AM DRIVER RECRUITER B-TYPE NATRIURETIC PEPTIDE Routine 01/31/2024 5:09 AM DRIVER RECRUITER RESPIRATORY PANEL WITH SARS-COV-2 BY PCR (STL) Routine 01/31/2024 12:07 AM DRIVER RECRUITER from Last 3 Months Results * CARDIAC RHYTHM STRIP ORDER (02/07/2024 10:59 PM DRIVER RECRUITER) Narrative 02/07/2024 10:59 PM DRIVER RECRUITER Ordered by an unspecified provider. Scanned Document CARDIAC SERVICES ORD ERABLES * (ABNORMAL) GLUCOSE - POINT OF CARE (02/05/2024 11:55 AM DRIVER RECRUITER) Only the most recent of29 resultswithin the time period is included. Glucose WB/POC 181(H) 70 - 99 mg/dL 02/05/2024 12:42 PM DRIVER RECRUITER [facility] Specimen Type Cap Fingerstick 2023 12:42 PM DRIVER RECRUITER [facility] Blood BLOOD SPECIMEN / Unknown 02/05/2024 11:55 AM DRIVER RECRUITER 02/05/2024 12:42 PM DRIVER RECRUITER Boogie Stephens MD LAB - POINT OF CARE ORDERABLES [facility] [address] [place] [address] * XR Chest 1Vw Portable (02/05/2024 9:40 AM DRIVER RECRUITER) Only the most recent of2 resultswithin the time period is included. Anatomical Region Laterality Modality Chest Computed Radiogr aphy 02/05/2024 10:0 6 AM DRIVER RECRUITER Narrative 02/05/2024 10:06 AM DRIVER RECRUITER PROCEDURE(s): XR CHEST 1VW PORTABLE DATE AND [...] CBC W AUTO DIFFERENTIAL (02/05/2024 5:32 AM DRIVER RECRUITER) Only the most recent of2 resultswithin the time period is included. WBC 12.5(H) 4.0 - 10.7 x10E9/L 02/05/2024 5:54 AM DRIVER RECRUITER [facility] RBC Count 4.33 3.90 - 5.20 x10E12/L 02/05/2024 5:54 AM [facility] Hemoglobin 12.0 11.9 - 15.8 g/dL 02/05/2024 5:54 AM [facility] Hematocrit 39.6 34.8 - 46.1 % 02/05/2024 5:54 AM [facility] MCV 91.5 80.0 - 98.0 fL 02/05/2024 5:54 AM [facility] MCH 27.7 26.7 - 33.6 pg 02/05/2024 5:54 AM [facility] MCHC 30.3(L) 31.7 - 36.3 g/dL 02/05/2024 5:54 AM [facility] RDW-CV 15.8(H) 11.3 - 14.8 % 02/05/2024 5:54 AM [facility] Platelet Count 305 150 - 420 x10E9/L 02/05/2024 5:54 AM [facility] MPV 10.6 7.8 - 11.4 fL 02/05/2024 5:54 AM [facility] Neutrophil % 65.7 41.0 - 74.0 % 02/05/2024 5:54 AM [facility] Lymphocyte % 20.8 17.0 - 47.0 % 02/05/2024 5:54 AM [facility] Monocyte % 7.3 3.0 - 11.0 % 02/05/2024 5:54 AM [facility] Eosinophil % 1.8 0.0 - 7.0 % 02/05/2024 5:54 AM [facility] Basophil % 0.6 0.0 - 1.6 % 02/05/2024 5:54 AM [facility] Immature Granulocytes % 3.8(H) 0.0 - 1.0 % 02/05/2024 5:54 AM [facility] Neutrophil Absolute 8.24(H) 1.60 - 7.50 x10E9/L 02/05/2024 5:54 AM [facility] Lymphocyte Absolute 2.61 1.00 - 4.40 x10E9/L 02/05/2024 5:54 AM [facility] Monocyte Absolute 0.91 0.15 - 1.00 x10E9/L 02/05/2024 5:54 AM [facility] Eosinophil Absolute 0.22 0.00 - 0.60 x10E9/L 02/05/2024 5:54 AM [facility] Basophil Absolute 0.07 0.00 - 0.13 x10E9/L 02/05/2024 5:54 AM [facility] NRBC 0.3(H) <=0.0 /100 WBC 02/05/2024 5:54 AM [facility] Blood BLOOD SPECIMEN / Unknown Venipuncture / Unknown 02/05/2024 5:32 AM DRIVER RECRUITER 02/05/2024 5:40 AM DRIVER RECRUITER Boogie Stephens MD LAB - HEMATOLOGY ORD ERABLES [facility] [address] [place] [address] * (ABNORMAL) RENAL FUNCTION PANEL (02/05/2024 5:32 AM DRIVER RECRUITER) Only the most recent of3 resultswithin the time period is included. Glucose 55(L) 70 - 99 mg/dL 02/05/2024 5:57 AM [facility] Sodium 144 136 - 145 mmol/L 02/05/2024 5:57 AM [facility] Potassium 5.0 3.5 - 5.1 mmol/L 02/05/2024 5:57 AM [facility] Comment:Specimen Moderately Hemolyzed Chloride 105 98 - 107 mmol/L 02/05/2024 5:57 AM [facility] CO2 30(H) 22 - 29 mmol/L 02/05/2024 5:57 AM [facility] Calcium 8.8 8.4 - 10.4 mg/dL 02/05/2024 5:57 AM [facility] Anion Gap 9 6 - 16 mmol/L 02/05/2024 5:57 AM [facility] BUN 51(H) 7 - 26 mg/dL 02/05/2024 5:57 AM [facility] Creatinine 1.48(H) 0.57 - 1.11 mg/dL 02/05/2024 5:57 AM [facility] Albumin 2.6(L) 3.4 - 5.0 gm/dL 02/05/2024 5:57 AM [facility] Phosphorus 4.4 2.5 - 4.5 mg/dL 02/05/2024 5:57 AM [facility] eGFR by CKD-EPI 35(L) >=90 mL/min/1.7 3 m2 02/05/2024 5:57 AM [facility] Blood BLOOD SPECIMEN / Unknown Venipuncture / Unknown 02/05/2024 5:32 AM DRIVER RECRUITER 02/05/2024 5:40 AM DRIVER RECRUITER Boogie Stephens MD LAB - CHEMISTRY ORDFortunato GAYLE Performing Organization Address [facility] de Phone Number [facility] [address] [place] [address] * MAGNESIUM BLOOD (02/05/2024 5:32 AM DRIVER RECRUITER) Only the most recent of2 resultswithin the time period is included. Magnesium 2.3 1.6 - 2.6 mg/dL 02/05/2024 5:56 AM [facility] Blood BLOOD SPECIMEN / Unknown Venipuncture / Unknown 02/05/2024 5:32 AM DRIVER RECRUITER 02/05/2024 5:40 AM DRIVER RECRUITER Boogie Stephens MD LAB - CHEMISTRY ORDFortunato [facility] Performing Organization Address [facility] de Phone Number [facility] [address] [place] [address] * (ABNORMAL) BASIC METABOLIC PANEL (CALCIUM TOTAL) (02/03/2024 11:01 AM DRIVER RECRUITER) Only the most recent of3 resultswithin the time period is included. Glucose 203(H) 70 - 99 mg/dL 02/03/2024 11:32 AM [facility] Sodium 146(H) 136 - 145 mmol/L 02/03/2024 11:32 AM [facility] Potassium 4.1 3.5 - 5.1 mmol/L 02/03/2024 11:32 AM [facility] Chloride 101 98 - 107 mmol/L 02/03/2024 11:32 AM [facility] CO2 31(H) 22 - 29 mmol/L 02/03/2024 11:32 AM [facility] Calcium 9.7 8.4 - 10.4 mg/dL 02/03/2024 11:32 AM [facility] Anion Gap 14 6 - 16 mmol/L 02/03/2024 11:32 AM [facility] BUN 43(H) 7 - 26 mg/dL 02/03/2024 11:32 AM [facility] Creatinine 1.43(H) 0.57 - 1.11 mg/dL 02/03/2024 11:32 AM [facility] eGFR by CKD-EPI 37(L) >=90 mL/min/1.7 3 m2 02/03/2024 11:32 AM [facility] Blood BLOOD SPECIMEN / Unknown Venipuncture / Unknown 02/03/2024 11:01 AM DRIVER RECRUITER 02/03/2024 11:15 AM DRIVER RECRUITER Boogie Stephens MD LAB - CHEMISTRY ANGEL GAYLE [facility] Organization Address City/State/[facility] Co de Phone Number [facility] [address] [place] [address] * VANCOMYCIN LEVEL RANDOM (02/02/2024 9:29 PM DRIVER RECRUITER) Only the most recent of2 resultswithin the time period is included. Vancomycin Random 14.8 <=40.0 ug/mL 02/02/2024 9:52 PM [facility] Blood BLOOD SPECIMEN / Unknown Venipuncture / Unknown 02/02/2024 9:29 PM DRIVER RECRUITER 02/02/2024 9:36 PM DRIVER RECRUITER Narrative [facility] - 02/02/2024 9:52 PM DRIVER RECRUITER No reference range available for random Vancomycin levels. All results interpreted by ordering physician. Boogie Stephens MD LAB - CHEMISTRY ANGEL GAYLE [facility] Organization Address City/State/ZIP Co de Phone Number [facility] [address] [place] [address] * ECHO COMPLETE (02/02/2024 1:00 PM DRIVER RECRUITER) LA vol index 0.026 l/m [facility] CV [...] Region Laterality Modality Ultrasound 02/02/2024 9:42 AM DRIVER RECRUITER Narrative 02/03/2024 9:14 AM DRIVER RECRUITER Summary * The left ventricle is normal [...] 9:42 AM Patient Status: I/P Study Site: [facility] Primary Location: [facility] EStudy Info Exam Type: ECHO COMPLETE Indications J96.01 - Acute hypoxic respiratory failure (HCC) Procedure(s) * A complete 2D, color Doppler, spectral Doppler, and M-Mode transthoracic echocardiogram was performed. Staff Referring Physician: Kb Freire Ordering Provider: Kb Freire Attending Physician: Kb Freire Interface Control Officer: Arpita Dozier Left Ventricle The left ventricle [...] 9:42 AM Patient Status: I/P Study Site: [facility] Primary Location: [facility] EStudy Info Exam Type: ECHO COMPLETE Indications J96.01 - Acute hypoxic respiratory failure (HCC) Procedure(s) * A complete 2D, color Doppler, spectral Doppler, and M-Modetransthoracic echocardiogram was performed. Staff Referring Physician: Kb Freire Ordering Provider: Kb Freire Attending Physician: Kb Freire Interface Control Officer: Arpita Dozier Left Ventricle The left ventricle [...] CUPID * CULTURE BLOOD (02/01/2024 11:16 AM DRIVER RECRUITER) Only the most recent of2 resultswithin the time period is included. Culture No growth day 5 ELISABET 02/06/2024 2:31 PM DRIVER RECRUITER [facility] Blood PERIPHERAL BLOOD / Unknown Venipuncture / Unknown 02/01/2024 11:16 AM DRIVER RECRUITER 02/01/2024 11:27 AM DRIVER RECRUITER Boogie Stephens MD LAB - MICROBIOLOGY O RDERABLES [facility] [address] [place] [address], [facility] [phone] * (ABNORMAL) PROCALCITONIN LEVEL (01/31/2024 5:09 AM DRIVER RECRUITER) Procalcitonin 14.84(H) <0.10 ng/mL 01/31/2024 5:59 AM DRIVER RECRUITER [facility] Blood BLOOD SPECIMEN / Unknown Venipuncture / Unknown 01/31/2024 5:09 AM DRIVER RECRUITER 01/31/2024 5:17 AM DRIVER RECRUITER Narrative [facility] - 01/31/2024 5:59 AM DRIVER RECRUITER The change in procalcitonin (PCT) concentration over [...] Change in Procalcitonin Calculator is available at [email or web address] If clinical picture has not improved and PCT remains high, reevaluate and consider treatment failure or other causes. Kaitlin Norris MD LAB - CHEMISTRY ANGEL GAYLE [facility] Organization Address City/State/ZIP Co de Phone Number [facility] [address] [place] [address] * (ABNORMAL) HEMOGLOBIN A1C (01/31/2024 5:09 AM DRIVER RECRUITER) Hemoglobin A1c 6.8(H) <5.7 % 01/31/2024 5:29 AM [facility] Estimated Average Glucose 148 mg/dL 01/31/2024 5:29 AM [facility] Blood BLOOD SPECIMEN / Unknown Venipuncture / Unknown 01/31/2024 5:09 AM DRIVER RECRUITER 01/31/2024 5:17 AM DRIVER RECRUITER Narrative [facility] - 01/31/2024 5:29 AM [facility] HbA1c Interpretation: Normal: < 5.7% Pre-diabetes: [...] Freire MD LAB - CHEMISTRY ANGEL GAYLE [facility] Organization Address City/State/ZIP Co de Phone Number [facility] [address] [place] [address] * (ABNORMAL) CBC W/O DIFFERENTIAL (01/31/2024 5:09 AM DRIVER RECRUITER) [facility] WBC 15.8(H) 4.0 - 10.7 x10E9/L 01/31/2024 5:32 AM DRIVER RECRUITER [facility] RBC Count 3.80(L) 3.90 - 5.20 x10E12/L 01/31/2024 5:32 AM [facility] Hemoglobin 10.5(L) 11.9 - 15.8 g/dL 01/31/2024 5:32 AM [facility] Hematocrit 35.7 34.8 - 46.1 % 01/31/2024 5:32 AM [facility] MCV 93.9 80.0 - 98.0 fL 01/31/2024 5:32 AM DRIVER RECRUITER [facility] MCH 27.6 26.7 - 33.6 pg 01/31/2024 5:32 AM DRIVER RECRUITER [facility] MCHC 29.4(L) 31.7 - 36.3 g/dL 01/31/2024 5:32 AM [facility] RDW-CV 14.9(H) 11.3 - 14.8 % 01/31/2024 5:32 AM [facility] Platelet Count 304 150 - 420 x10E9/L 01/31/2024 5:32 AM DRIVER RECRUITER [facility] MPV 10.8 7.8 - 11.4 fL 01/31/2024 5:32 AM DRIVER RECRUITER [facility] Blood BLOOD SPECIMEN / Unknown Venipuncture / Unknown 01/31/2024 5:09 AM DRIVER RECRUITER 01/31/2024 5:17 AM DRIVER RECRUITER Kaitlin Norris MD LAB - HEMATOLOGY ORD ERABLES [facility] [address] [place] [address] * (ABNORMAL) B-TYPE NATRIURETIC PEPTIDE (01/31/2024 5:09 AM DRIVER RECRUITER) [facility] BNP 1,514(H) <=100 pg/mL 01/31/2024 6:26 AM [facility] Blood BLOOD SPECIMEN / Unknown Venipuncture / Unknown 01/31/2024 5:09 AM DRIVER RECRUITER 01/31/2024 5:17 AM DRIVER RECRUITER Kb Freire MD LAB - CHEMISTRY ORDE RABLES Performing Organization Address City/[facility]/ZIP Co de Phone Number [facility] [address] [place] [address] * (ABNORMAL) RESPIRATORY PANEL WITH SARS-COV-2 BY PCR (L) (01/31/2024 12:07 AM DRIVER RECRUITER) [facility] Adenovirus PCR Not detected Not detected 01/31/2024 6:33 AM [facility] Coronavirus 229E PCR Not detected Not detected 01/31/2024 6:33 AM DRIVER RECRUITER [facility] Coronavirus HKU1 PCR Not detected Not detected 01/31/2024 6:33 AM DRIVER RECRUITER [facility] Coronavirus NL63 PCR Not detected Not detected 01/31/2024 6:33 AM DRIVER RECRUITER [facility] Coronavirus OC43 PCR Not detected Not detected 01/31/2024 6:33 AM DRIVER RECRUITER [facility] COVID-19 PCR Not detected Not detected 01/31/2024 6:33 AM DRIVER RECRUITER [facility] Human Metapneumovirus PCR Not detected Not detected 01/31/2024 6:33 AM DRIVER RECRUITER [facility] Human Rhinovirus/Enterov irus PCR Detected(A) Not detected 01/31/2024 6:33 AM DRIVER RECRUITER [facility] Influenza A PCR Not detected Not detected 01/31/2024 6:33 AM DRIVER RECRUITER [facility] Influenza B PCR Not detected Not detected 01/31/2024 6:33 AM DRIVER RECRUITER [facility] Parainfluenza Virus 1 PCR Not detected Not detected 01/31/2024 6:33 AM DRIVER RECRUITER [facility] Parainfluenza Virus 2 PCR Not detected Not detected 01/31/2024 6:33 AM DRIVER RECRUITER [facility] Parainfluenza Virus 3 PCR Not detected Not detected 01/31/2024 6:33 AM DRIVER RECRUITER [facility] Parainfluenza Virus 4 PCR Not detected Not detected 01/31/2024 6:33 AM DRIVER RECRUITER [facility] Respiratory Syncytial Virus PCR Not detected Not detected 01/31/2024 6:33 AM DRIVER RECRUITER [facility] Bordetella parapertussis PCR Not detected Not detected 01/31/2024 6:33 AM DRIVER RECRUITER [facility] Bordetella pertussis PCR Not detected Not detected 01/31/2024 6:33 AM DRIVER RECRUITER [facility] Chlamydia pneumoniae PCR Not detected Not detected 01/31/2024 6:33 AM DRIVER RECRUITER [facility] Mycoplasma pneumoniae PCR Not detected Not detected 01/31/2024 6:33 AM DRIVER RECRUITER [facility] Microbiology SPECIMEN FROM NASOPHARYNGEAL STRUCTURE / Unknown Collection / Unknown 01/31/2024 12:07 AM DRIVER RECRUITER 01/31/2024 12:17 AM DRIVER RECRUITER Narrative [facility] - 01/31/2024 6:33 AM DRIVER RECRUITER Contact and Droplet Precautions Required. This nucleic amplification assay has received FDA authorization via the [employer]. Kaitlin Norris MD LAB - MICROBIOLOGY O RDERABLES [facility] [address] [place] [address], [facility] [phone] from Last 3 Months Advance Directives * [...]
--- OUTSIDE RECORDS SUMMARY | 2024-04-30 21:54 | XMS_ITS | Encounter Summary ---
Author Organization [facility] Address [address] [place] [id number] Care Team Providers Care Employer Relations Representative Name Role Phone Raymond Medina MD Primary Care Provider [phone] Jessee Gregg MD Primary Care Provider [phone] Encounter Details Date Type Department Care Team (Late st Contact Info) Description 10/30/2011 Abstract [facility] [address] [place] [address] New Referring, Provider Social History [...] on filedocumented in this encounter Care Teams Employer Relations Representative Relationship Specialty Start Date End Date Raymond Medina MD [address] [place] [phone] PCP - General FAMILY PRACTICE 06/04/16 08/16/19 [place] [address] [place] [address] PCP - General FAMILY PRACTICE 08/17/19 06/15/21 documented as of this encounter
--- OUTSIDE RECORDS SUMMARY | 2024-04-30 21:54 | XMS_ITS | Patient Health Summary ---
Author Organization [facility] Address [address] [place] [address] Care Team Providers Care Instructor [employer] Name Role Phone Unavailable Primary Care Provider Unavailabl e Note from [facility] [place],non-owned Affiliates and Associated Physician Practices is amultiple site organization consisting of ambulatory clinics and hospital sitesin [place], [place], [place] and [place]. This disclosure is being madepursuant to the Care Everywhere program and may not contain all information available regarding this patient. Last updated 17.[facility] Allergies No known active allergies Medications * [...] days 1 refill by 02/04/2025 Ended Medications* senna-docusate (Senokot-S) 8.6-50 MG tablet(Started 02/05/2024)() Take 1 (one) tablet by mouth 2 times daily for 60 days 1 refill by 02/04/2025 Active Problems Problem Noted Date Diagnosed Date [...] and heating? Not hard at all 01/30/2024 [facility] - Occupational Stress [...] any time in the past 12 m [facility], were you homeless or living in a half-way (including now)? No 01/30/2024 Sex and Gender Information Value Date Recorded Sex Assigned at Not on file Gender Identity Not on file Sexual Orientation Not on file Last Filed Vital Signs Vital Sign Reading Time Taken Comments Blood Pressure 143/58 02/05/2024 12:01 PM MATERIALS CLERK Pulse 79 02/05/2024 12:01 PM MATERIALS CLERK Temperature 36.2 C (97.1 F) 02/05/2024 8:01 AM MATERIALS CLERK Respiratory Rate 26 02/05/2024 12:01 PM MATERIALS CLERK Oxygen Saturation 94% 02/05/2024 12:01 PM MATERIALS CLERK Inhaled Oxygen Concentration 35% 02/01/2024 1 1:38 PM MATERIALS CLERK Weight 64.6 kg (142 lb 5.6 oz) 01/30/2024 5:14 P M MATERIALS CLERK Height 152.4 cm (5') 01/30/2024 5:14 PM MATERIALS CLERK Body Mass Index 27.8 01/30/2024 5:14 PM MATERIALS CLERK Procedures * CARDIAC RHYTHM STRIP ORDER(Performed 02/07/2024) [...] * RESPIRATORY PANEL WITH SARS-COV-2 BY PCR ([facility])(Performed 01/31/2024) * GLUCOSE - POINT OF CARE(Performed [...] CARDIAC RHYTHM STRIP ORDER (02/07/2024 10:59 PM MATERIALS CLERK) Narrative 02/07/2024 10:59 PM MATERIALS CLERK Ordered by an unspecified provider. Scanned Document CARDIAC SERVICES ORD ERABLES * (ABNORMAL) GLUCOSE - POINT OF CARE (02/05/2024 11:55 AM MATERIALS CLERK) Only the most recent of35 resultswithin the time period is included. Glucose WB/POC 181(H) 70 - 99 mg/dL 02/05/2024 12:42 PM MATERIALS CLERK [facility] Specimen Type Cap Fingerstick 2023 12:42 PM MATERIALS CLERK [facility] Blood BLOOD SPECIMEN / Unknown 02/05/2024 11:55 AM MATERIALS CLERK 02/05/2024 12:42 PM MATERIALS CLERK Boogie Stephens MD LAB - POINT OF CARE ORDERABLES [facility] [address] [place] [address] * XR Chest 1Vw Portable (02/05/2024 9:40 AM MATERIALS CLERK) Only the most recent of3 resultswithin the time period is included. Anatomical Region Laterality Modality Chest Computed Radiogr aphy 02/05/2024 10:0 6 AM MATERIALS CLERK Narrative 02/05/2024 10:06 AM MATERIALS CLERK PROCEDURE(s): XR CHEST 1VW PORTABLE DATE AND [...] CBC W AUTO DIFFERENTIAL (02/05/2024 5:32 AM MATERIALS CLERK) Only the most recent of2 resultswithin the time period is included. WBC 12.5(H) 4.0 - 10.7 x10E9/L 02/05/2024 5:54 AM MATERIALS CLERK [facility] RBC Count 4.33 3.90 - 5.20 x10E12/L 02/05/2024 5:54 AM MATERIALS CLERK [facility] Hemoglobin 12.0 11.9 - 15.8 g/dL 02/05/2024 5:54 AM MATERIALS CLERK [facility] Hematocrit 39.6 34.8 - 46.1 % 02/05/2024 5:54 AM MATERIALS CLERK [facility] MCV 91.5 80.0 - 98.0 fL 02/05/2024 5:54 AM MATERIALS CLERK [facility] MCH 27.7 26.7 - 33.6 pg 02/05/2024 5:54 AM MATERIALS CLERK [facility] MCHC 30.3(L) 31.7 - 36.3 g/dL 02/05/2024 5:54 AM MATERIALS CLERK [facility] RDW-CV 15.8(H) 11.3 - 14.8 % 02/05/2024 5:54 AM MATERIALS CLERK [facility] Platelet Count 305 150 - 420 x10E9/L 02/05/2024 5:54 AM MATERIALS CLERK [facility] MPV 10.6 7.8 - 11.4 fL 02/05/2024 5:54 AM MATERIALS CLERK [facility] Neutrophil % 65.7 41.0 - 74.0 % 02/05/2024 5:54 AM MATERIALS CLERK [facility] Lymphocyte % 20.8 17.0 - 47.0 % 02/05/2024 5:54 AM MATERIALS CLERK [facility] Monocyte % 7.3 3.0 - 11.0 % 02/05/2024 5:54 AM MATERIALS CLERK [facility] Eosinophil % 1.8 0.0 - 7.0 % 02/05/2024 5:54 AM [facility] Basophil % 0.6 0.0 - 1.6 % 02/05/2024 5:54 AM [facility] Immature Granulocytes % 3.8(H) 0.0 - 1.0 % 02/05/2024 5:54 AM [facility] Neutrophil Absolute 8.24(H) 1.60 - 7.50 x10E9/L 02/05/2024 5:54 AM [facility] Lymphocyte Absolute 2.61 1.00 - 4.40 x10E9/L 02/05/2024 5:54 AM [facility] Monocyte Absolute 0.91 0.15 - 1.00 x10E9/L 02/05/2024 5:54 AM [facility] Eosinophil Absolute 0.22 0.00 - 0.60 x10E9/L 02/05/2024 5:54 AM [facility] Basophil Absolute 0.07 0.00 - 0.13 x10E9/L 02/05/2024 5:54 AM [facility] NRBC 0.3(H) <=0.0 /100 WBC 02/05/2024 5:54 AM [facility] Blood BLOOD SPECIMEN / Unknown Venipuncture / Unknown 02/05/2024 5:32 AM MATERIALS CLERK 02/05/2024 5:40 AM [facility] Boogie Stephens MD LAB - HEMATOLOGY ORD ERABLES Performing Organization Address City/State/[facility] Co de Phone Number [facility] [address] [place] [address] * (ABNORMAL) RENAL FUNCTION PANEL (02/05/2024 5:32 AM MATERIALS CLERK) Only the most recent of3 resultswithin the time period is included. Glucose 55(L) 70 - 99 mg/dL 02/05/2024 5:57 AM [facility] Sodium 144 136 - 145 mmol/L 02/05/2024 5:57 AM [facility] Potassium 5.0 3.5 - 5.1 mmol/L 02/05/2024 5:57 AM [facility] Comment:Specimen Moderately Hemolyzed Chloride 105 98 - 107 mmol/L 02/05/2024 5:57 AM MATERIALS CLERK [facility] CO2 30(H) 22 - 29 mmol/L 02/05/2024 5:57 AM MATERIALS CLERK [facility] Calcium 8.8 8.4 - 10.4 mg/dL 02/05/2024 5:57 AM [facility] Anion Gap 9 6 - 16 mmol/L 02/05/2024 5:57 AM MATERIALS CLERK [facility] BUN 51(H) 7 - 26 mg/dL 02/05/2024 5:57 AM MATERIALS CLERK [facility] Creatinine 1.48(H) 0.57 - 1.11 mg/dL 02/05/2024 5:57 AM [facility] Albumin 2.6(L) 3.4 - 5.0 gm/dL 02/05/2024 5:57 AM MATERIALS CLERK [facility] Phosphorus 4.4 2.5 - 4.5 mg/dL 02/05/2024 5:57 AM [facility] eGFR by CKD-EPI 35(L) >=90 mL/min/1.7 3 m2 02/05/2024 5:57 AM MATERIALS CLERK [facility] Blood BLOOD SPECIMEN / Unknown Venipuncture / Unknown 02/05/2024 5:32 AM MATERIALS CLERK 02/05/2024 5:40 AM MATERIALS CLERK Boogie Stephens MD LAB - CHEMISTRY ORDFortunato GAYLE Performing Organization Address City/[facility] Co de Phone Number [facility] [address] [place] [address] * MAGNESIUM BLOOD (02/05/2024 5:32 AM MATERIALS CLERK) Only the most recent of2 resultswithin the time period is included. Magnesium 2.3 1.6 - 2.6 mg/dL 02/05/2024 5:56 AM MATERIALS CLERK [facility] Blood BLOOD SPECIMEN / Unknown Venipuncture / Unknown 02/05/2024 5:32 AM MATERIALS CLERK 02/05/2024 5:40 AM MATERIALS CLERK Boogie Stephens MD LAB - CHEMISTRY ANGEL GAYLE Performing Organization Address City/[facility]/ZIP Co de Phone Number [facility] [address] [place] [address] * (ABNORMAL) BASIC METABOLIC PANEL (CALCIUM TOTAL) (02/03/2024 11:01 AM MATERIALS CLERK) Only the most recent of3 resultswithin the time period is included. Glucose 203(H) 70 - 99 mg/dL 02/03/2024 11:32 AM [facility] Sodium 146(H) 136 - 145 mmol/L 02/03/2024 11:32 AM [facility] Potassium 4.1 3.5 - 5.1 mmol/L 02/03/2024 11:32 AM [facility] Chloride 101 98 - 107 mmol/L 02/03/2024 11:32 AM [facility] CO2 31(H) 22 - 29 mmol/L 02/03/2024 11:32 AM [facility] Calcium 9.7 8.4 - 10.4 mg/dL 02/03/2024 11:32 AM [facility] Anion Gap 14 6 - 16 mmol/L 02/03/2024 11:32 AM [facility] BUN 43(H) 7 - 26 mg/dL 02/03/2024 11:32 AM [facility] Creatinine 1.43(H) 0.57 - 1.11 mg/dL 02/03/2024 11:32 AM [facility] eGFR by CKD-EPI 37(L) >=90 mL/min/1.7 3 m2 02/03/2024 11:32 AM [facility] Blood BLOOD SPECIMEN / Unknown Venipuncture / Unknown 02/03/2024 11:01 AM MATERIALS CLERK 02/03/2024 11:15 AM [facility] Boogie Stephens MD LAB - CHEMISTRY NAGEL GAYLE [facility] [address] [place] [address] * VANCOMYCIN LEVEL RANDOM (02/02/2024 9:29 PM MATERIALS CLERK) Only the most recent of2 resultswithin the time period is included. Vancomycin Random 14.8 <=40.0 ug/mL 02/02/2024 9:52 PM [facility] Blood BLOOD SPECIMEN / Unknown Venipuncture / Unknown 02/02/2024 9:29 PM MATERIALS CLERK 02/02/2024 9:36 PM MATERIALS CLERK Narrative [facility] - 02/02/2024 9:52 PM MATERIALS CLERK No reference range available for random Vancomycin levels. All results interpreted by ordering physician. Boogie Stephens MD LAB - CHEMISTRY ANGEL GAYLE [facility] [address] [place] [address] * ECHO COMPLETE (02/02/2024 1:00 PM MATERIALS CLERK) LA vol index 0.026 l/m SSM CV [...] Region Laterality Modality Ultrasound 02/02/2024 9:42 AM MATERIALS CLERK Narrative 02/03/2024 9:14 AM MATERIALS CLERK Summary * The left ventricle is normal [...] 9:42 AM Patient Status: I/P Study Site: [facility] Primary Location: [facility] EStudy Info Exam Type: ECHO COMPLETE Indications J96.01 - Acute hypoxic respiratory failure (HCC) Procedure(s) * A complete 2D, color Doppler, spectral Doppler, and M-Mode transthoracic echocardiogram was performed. Staff Referring Physician: Kb Freire Ordering Provider: Kb Freire Attending Physician: Kb Freire Databases Computer Consultant: Arpita Dozier Left Ventricle The left ventricle [...] 9:42 AM Patient Status: I/P Study Site: [facility] Primary Location: [facility] EStudy Info Exam Type: ECHO COMPLETE Indications J96.01 - Acute hypoxic respiratory failure (HCC) Procedure(s) * A complete 2D, color Doppler, spectral Doppler, and M-Modetransthoracic echocardiogram was performed. Staff Referring Physician: Kb Freire Ordering Provider: Kb Freire Attending Physician: Kb Freire Databases Computer Consultant: Arpita Dozier Left Ventricle The left ventricle [...] LA Volume Index (BP MOD) 26 ml/m2 16- Report Signatures Finalized by Hardik Choudhary on 02/03/2024 09:14 AM Kb Freire MD ECHO CUPID * CULTURE BLOOD (02/01/2024 11:16 AM MATERIALS CLERK) Only the most recent of2 resultswithin the time period is included. Pathologist [facility] Culture No growth day 5 ELISABET 02/06/2024 2:31 PM MATERIALS CLERK [facility] Blood PERIPHERAL BLOOD / Unknown Venipuncture / Unknown 02/01/2024 11:16 AM MATERIALS CLERK 02/01/2024 11:27 AM MATERIALS CLERK Boogie Stephens MD LAB - MICROBIOLOGY O RDERABLES [facility] [address] [place] [address], [facility] [phone] * (ABNORMAL) PROCALCITONIN LEVEL (01/31/2024 5:09 AM MATERIALS CLERK) Pathologist [facility] Procalcitonin 14.84(H) <0.10 ng/mL 01/31/2024 5:59 AM MATERIALS CLERK [facility] Blood BLOOD SPECIMEN / Unknown Venipuncture / Unknown 01/31/2024 5:09 AM MATERIALS CLERK 01/31/2024 5:17 AM MATERIALS CLERK Narrative [facility] - 01/31/2024 5:59 AM MATERIALS CLERK The change in procalcitonin (PCT) concentration over [...] Change in Procalcitonin Calculator is available at [email or web address] If clinical picture has not improved and PCT remains high, reevaluate and consider treatment failure or other causes. Kaitlin Norris MD LAB - CHEMISTRY ANGEL GAYLE [facility] Organization Address City/State/ZIP Co de Phone Number [facility] [address] [place] [address] * (ABNORMAL) HEMOGLOBIN A1C (01/31/2024 5:09 AM MATERIALS CLERK) Hemoglobin A1c 6.8(H) <5.7 % 01/31/2024 5:29 AM MATERIALS CLERK [facility] Estimated Average Glucose 148 mg/dL 01/31/2024 5:29 AM MATERIALS CLERK [facility] Blood BLOOD SPECIMEN / Unknown Venipuncture / Unknown 01/31/2024 5:09 AM MATERIALS CLERK 01/31/2024 5:17 AM MATERIALS CLERK Narrative [facility] - 01/31/2024 5:29 AM MATERIALS CLERK HbA1c Interpretation: Normal: < 5.7% Pre-diabetes: 5.7-6.4% [...] Freire MD LAB - CHEMISTRY ANGEL GAYLE [facility] Organization Address City/State/[facility] Co de Phone Number [facility] [address] [place] [address] * (ABNORMAL) CBC W/O DIFFERENTIAL (01/31/2024 5:09 AM MATERIALS CLERK) Only the most recent of2 resultswithin the time period is included. WBC 15.8(H) 4.0 - 10.7 x10E9/L 01/31/2024 5:32 AM MATERIALS CLERK [facility] RBC Count 3.80(L) 3.90 - 5.20 x10E12/L 01/31/2024 5:32 AM MATERIALS CLERK [facility] Hemoglobin 10.5(L) 11.9 - 15.8 g/dL 01/31/2024 5:32 AM MATERIALS CLERK [facility] Hematocrit 35.7 34.8 - 46.1 % 01/31/2024 5:32 AM MATERIALS CLERK [facility] MCV 93.9 80.0 - 98.0 fL 01/31/2024 5:32 AM MATERIALS CLERK [facility] MCH 27.6 26.7 - 33.6 pg 01/31/2024 5:32 AM MATERIALS CLERK [facility] MCHC 29.4(L) 31.7 - 36.3 g/dL 01/31/2024 5:32 AM MATERIALS CLERK [facility] RDW-CV 14.9(H) 11.3 - 14.8 % 01/31/2024 5:32 AM MATERIALS CLERK [facility] Platelet Count 304 150 - 420 x10E9/L 01/31/2024 5:32 AM MATERIALS CLERK [facility] MPV 10.8 7.8 - 11.4 fL 01/31/2024 5:32 AM MATERIALS CLERK [facility] Blood BLOOD SPECIMEN / Unknown Venipuncture / Unknown 01/31/2024 5:09 AM MATERIALS CLERK 01/31/2024 5:17 AM MATERIALS CLERK Kaitlin Norris MD LAB - HEMATOLOGY ORD ERABLES [facility] [id number] [place] [address] * (ABNORMAL) B-TYPE NATRIURETIC PEPTIDE (01/31/2024 5:09 AM MATERIALS CLERK) [facility] BNP 1,514(H) <=100 pg/mL 01/31/2024 6:26 AM MATERIALS CLERK [facility] Blood BLOOD SPECIMEN / Unknown Venipuncture / Unknown 01/31/2024 5:09 AM MATERIALS CLERK 01/31/2024 5:17 AM MATERIALS CLERK Kb Freire MD LAB - CHEMISTRY ORDE RABOLYA [facility] [address] [place] [address] * (ABNORMAL) RESPIRATORY PANEL WITH SARS-COV-2 BY PCR ([facility]) (01/31/2024 12:07 AM MATERIALS CLERK) [facility] Adenovirus PCR Not detected Not detected 01/31/2024 6:33 AM [facility] Coronavirus 229E PCR Not detected Not detected 01/31/2024 6:33 AM [facility] Coronavirus HKU1 PCR Not detected Not detected 01/31/2024 6:33 AM MATERIALS CLERK [facility] Coronavirus NL63 PCR Not detected Not detected 01/31/2024 6:33 AM [facility] Coronavirus OC43 PCR Not detected Not detected 01/31/2024 6:33 AM MATERIALS CLERK [facility] COVID-19 PCR Not detected Not detected 01/31/2024 6:33 AM MATERIALS CLERK [facility] Human Metapneumovirus PCR Not detected Not detected 01/31/2024 6:33 AM MATERIALS CLERK [facility] Human Rhinovirus/Enterov irus PCR Detected(A) Not detected 01/31/2024 6:33 AM MATERIALS CLERK [facility] Influenza A PCR Not detected Not detected 01/31/2024 6:33 AM MATERIALS CLERK [facility] Influenza B PCR Not detected Not detected 01/31/2024 6:33 AM MATERIALS CLERK [facility] Parainfluenza Virus 1 PCR Not detected Not detected 01/31/2024 6:33 AM MATERIALS CLERK [facility] Parainfluenza Virus 2 PCR Not detected Not detected 01/31/2024 6:33 AM MATERIALS CLERK [facility] Parainfluenza Virus 3 PCR Not detected Not detected 01/31/2024 6:33 AM MATERIALS CLERK [facility] Parainfluenza Virus 4 PCR Not detected Not detected 01/31/2024 6:33 AM MATERIALS CLERK [facility] Respiratory Syncytial Virus PCR Not detected Not detected 01/31/2024 6:33 AM MATERIALS CLERK [facility] Bordetella parapertussis PCR Not detected Not detected 01/31/2024 6:33 AM MATERIALS CLERK [facility] Bordetella pertussis PCR Not detected Not detected 01/31/2024 6:33 AM MATERIALS CLERK [facility] Chlamydia pneumoniae PCR Not detected Not detected 01/31/2024 6:33 AM MATERIALS CLERK [facility] Mycoplasma pneumoniae PCR Not detected Not detected 01/31/2024 6:33 AM MATERIALS CLERK [facility] Microbiology SPECIMEN FROM NASOPHARYNGEAL STRUCTURE / Unknown Collection / Unknown 01/31/2024 12:07 AM MATERIALS CLERK 01/31/2024 12:17 AM MATERIALS CLERK Narrative [facility] - 01/31/2024 6:33 AM MATERIALS CLERK Contact and Droplet Precautions Required. This nucleic amplification assay has received FDA authorization via the [employer]. Kaitlin Norris MD LAB - MICROBIOLOGY O RDERABLES [facility] [address] [place], [place] [address] [phone] * (ABNORMAL) BLOOD GASES ARTERIAL (01/30/2024 8:43 AM MATERIALS CLERK) pH Arterial 7.35 7.35 - 7.45 pH 01/30/2024 8:57 AM MATERIALS CLERK [facility] pO2 Arterial 99 80 - 100 mmHg 01/30/2024 8:57 AM MATERIALS CLERK [facility] pCO2 Arterial 52(H) 35 - 45 mmHg 01/30/2024 8:57 AM MATERIALS CLERK [facility] HCO3 Arterial 28.7(H) 22.0 - 26.0 mmol/L 01/30/2024 8:57 AM MATERIALS CLERK [facility] BE Arterial 2.1(H) -2.0 - 2.0 mmol/L 01/30/2024 8:57 AM MATERIALS CLERK [facility] O2 Saturation Arterial 99 90 - 100 % 01/30/2024 8:57 AM MATERIALS CLERK [facility] Solitario's Test Yes 01/30/2024 8:57 AM MATERIALS CLERK [facility] Sample Site Right BA 01/30/2024 8:57 AM MATERIALS CLERK [facility] Mode Bipap 01/30/2024 8:57 AM MATERIALS CLERK [facility] FI O2 50.0 % 01/30/2024 8:57 AM MATERIALS CLERK [facility] Mechanical Respiratory Rate (bpm) 16 01/30/2024 8:57 AM MATERIALS CLERK [facility] BIPAP Insp Pressure (cmH2O) 12 01/30/2024 8:57 AM MATERIALS CLERK [facility] BIPAP Exp Pressure (cmH2O) 6 01/30/2024 8:57 AM MATERIALS CLERK [facility] Blood, arterial ARTERIAL BLOOD SPECIMEN / Unknown 01/30/2024 8:43 AM MATERIALS CLERK 01/30/2024 8:43 AM MATERIALS CLERK Kb Freire MD LAB - BLOOD GASES OR DERABLES [facility] [address] [place], [place] [address] [phone] * (ABNORMAL) COMPREHENSIVE METABOLIC PANEL (01/30/2024 6:38 AM MATERIALS CLERK) Glucose 156(H) 70 - 99 mg/dL 01/30/2024 7:03 AM [facility] Sodium 145 136 - 145 mmol/L 01/30/2024 7:03 AM [facility] Potassium 4.9 3.5 - 5.1 mmol/L 01/30/2024 7:03 AM [facility] Chloride 106 98 - 107 mmol/L 01/30/2024 7:03 AM [facility] CO2 28 22 - 29 mmol/L 01/30/2024 7:03 AM [facility] Calcium 9.2 8.4 - 10.4 mg/dL 01/30/2024 7:03 AM [facility] Anion Gap 11 6 - 16 mmol/L 01/30/2024 7:03 AM [facility] BUN 46(H) 7 - 26 mg/dL 01/30/2024 7:03 AM [facility] Creatinine 1.60(H) 0.57 - 1.11 mg/dL 01/30/2024 7:03 AM [facility] Alkaline Phosphatase 110 40 - 150 U/L 01/30/2024 7:03 AM [facility] ALT 44 0 - 55 U/L 01/30/2024 7:03 AM [facility] AST 51(H) 5 - 34 U/L 01/30/2024 7:03 AM [facility] Protein Total 6.4 6.4 - 8.3 gm/dL 01/30/2024 7:03 AM [facility] Albumin 2.7(L) 3.4 - 5.0 gm/dL 01/30/2024 7:03 AM [facility] Bilirubin Total 0.3 0.2 - 1.2 mg/dL 01/30/2024 7:03 AM [facility] eGFR by CKD-EPI 32(L) >=90 mL/min/1.7 3 m2 01/30/2024 7:03 AM [facility] Blood BLOOD SPECIMEN / Unknown Venipuncture / Unknown 01/30/2024 6:38 AM MATERIALS CLERK 01/30/2024 6:42 AM [facility] [place] Francis Lancaster MD LAB - CHEMISTRY OR DERABLES [facility] [address] [place] [address]
--- OUTSIDE RECORDS SUMMARY | 2024-04-30 21:54 | XMS_ITS | Clinical Summary ---
Author Organization [facility] Address [address] [place] [id number] Phone Care Team Providers Care Test Clerk Name Role Phone Scott Galvez MD Primary Care Provider Allergies No known active allergies Medications Medication [...] 08/01/2019 Active pen needle, diabetic (Droplet Pen Anna) 31G X 5 MM misc 05/25/2019 Active glucose blood (Accu-Chek Corrie Plus) test strip 07/12/2019 Active Continuous Blood Gluc Sensor (FreeStyle Sophia 14 Day Sensor) misc Use with Freestyle Sophia monitor 11/07/2019 Active Continuous Blood Gluc Diagrammer (FreeStyle Sophia 14 Day Mantador) device Use with Freestyle Sophia Sensor 11/07/2019 [...] 72 12/03/2021 2:04 PM CDT Temperature 35.9 C (96.6 F) 12/03/2021 2:04 PM CDT Respiratory Rate - - Oxygen Saturation - [...] 11/08/2019, 12/15/2018, Additional history exists Care Teams Test Clerk Relationship Specialty Start Date End Date Scott Galvez MD [address] [place] [id number] PCP - General Internal Medicine 05/21/21
--- OUTSIDE RECORDS SUMMARY | 2024-04-30 21:54 | XMS_ITS | Continuity of Care Document ---
Author Organization [facility] Address [address] [facility] [address] [place] [address] Phone Care Team Providers Care Cable Spooler Name Role Phone Jm Burrows MD Unavailable [...] Diagnoses Date Provider Providers Copied on [facility]counter [email or web address], [address], [place], [place], [id number], [place] tel:[phone] SEC Faheem SOW Professional a comprehensive exam (chief complaint) FOLLOW-UP SURGERY NOS 4 Stormy Oneal. [address], [address], [place], [place], [address], [place]. tel:[phone] Referring Provider: Maulik Blanco, [email or web address], [place], [address] . tel:[phone] [email or web address], [address], [place], [place], [address], [place] [phone] SEC Faheem JUANJOSE Professional a comprehensive exam (chief complaint) FOLLOW-UP SURGERY NOS 3 Stormy Oneal. [address], [address], [place], [place], [address], [place]. tel:[phone] Referring Provider: Maulik Blanco, [email or web address], [place], [address] . tel:[phone] [facility], [address], [place], [place], [address], [place] tel:[phone] SEC Faheem SOW Professional a comprehensive exam (chief complaint) FOLLOW-UP SURGERY NOS 3 Vani Agrawal. [address] [facility], [address], [place], [address], [place]. tel:[phone] Referring Provider: Maulik Blanco, [email or web address], [place], [address] . tel:[phone] [email or web address], [address], [place], [place], [address], [place] [phone] Claudy CHAN [facility] No Information 3 Latrice Willingham. [address], [place], [place], [address], [place]. tel:[phone] Referring Provider: Maulik Blanco, [facility] [address], [place], [address] . tel:[phone] [facility], [id number] [place], [place] [address], [place], [place], [address], [place] tel:[phone] SEC Maurice Branham No Information 3 Latrice Willingham. [address], [place], [place], [address], [place]. tel:[phone] Referring Provider: Maulik Blanco, [facility] [address], [place], [address] . tel:[phone] [facility], [facility] [address], [place], [place], [address], [place] tel:[phone] SEC Maurice N Lindberg No Information 3 Latrice Willingham. [facility] [address], [place], [place], [address], [place]. tel:[phone] [facility], [address], [place], [place], [address], [place] tel:[phone] SEC Faheem SOW Professional a comprehensive exam (chief complaint) SENILE NUCLEAR CATARACTDMII OPHTH NT [facility] RETINOPATH[facility] NOS 3 Latrice Willingham. [facility] [address], [place], [place], [address], [place]. tel:[phone] Referring Provider: Maulik Blanco, [facility] [address], [place], [address] . tel:[phone] [facility], [facility] [address], [place], [place], [address], [place] tel:[phone] [facility] No Information Oct- 6200 8 Philomena Chaneyn. [address] , [address], [place], [address], [place]. tel:[phone] Referring Provider: Deni Anderson, [address] [place], [address]. tel:[phone] Family History Family Member Type Diagnosis Age [...]
--- OUTSIDE RECORDS SUMMARY | 2024-04-30 21:54 | XMS_ITS | Clinical Summary ---
Author Organization [facility] Address [address] [place] [address] Care Team Providers Care Slitter Scorer Cut Off Operator Name Role Phone Unavailable Primary Care [...] D 600-400 MG-UNIT tabletIndications :Congestive heart failure ([facility]) Take 1 tablet by mouth 2 (two) times daily. clarification of script 180 tablet 1 10/02/19 20 Active Insulin Pen Needle (DROPLET PEN NEEDLES) 31G X 8 MM MiscIndications:D iabetes ([facility]) TO USE TO INJECT INSULIN QID 1 Container 5 03/19/19 21 Active insulin lispro, 1 Unit Dial, (HUMALOG KWIKPEN) 100 UNIT/ML injection (PEN)Indications: Diabetes mellitus ([facility]) INJECT SUBCUTANEOUSLY 3 TIMES DAILY PER SLIDING SCALE (UP TO DAILY DOSE OF 35-40 UNITS) 12 pen 08/13/19 21 Active furosemide 40 MG tabletIndications :Congestive heart failure ([facility]) TAKE 1 TABLET BY MOUTH DAILY IN THE MORNING 90 tablet 1 11/20/19 21 Active LORazepam (ATIVAN) 0.5 MG tabletIndications :Panic attack Take 1 tablet (0.5 mg total) by mouth every 6 (six) hours as needed for Anxiety. 20 tablet 11/22/19 21 Active Continuous Blood Gluc Marketing Compliance Manager (FREESTYLE SANDER 14 DAY READER) DeviceIndications :Type 2 diabetes mellitus with diabetic nephropathy, with long-term current use of insulin ([facility]) Use to check blood sugar four times daily and as directed. 1 each 02/19/19 22 Active insulin glargine 100 UNIT/ML injection (PEN)Indications: Type 2 diabetes mellitus with diabetic nephropathy, with long-term current use of insulin ([facility]) Inject 16 Units into the skin nightly at bedtime. 5 pen 1 03/03/19 22 Active furosemide 20 MG tabletIndications :Essential hypertension Take 1 tablet (20 mg total) by mouth every evening. 90 tablet 1 03/03/19 22 Active ACCU-CHEK NYDIA PLUS test stripIndications: Type 2 diabetes mellitus with diabetic nephropathy, with long-term current use of insulin ([facility]) Use to check blood sugar twice per [...] Hypokalemia 05/30/2018 Chronic renal insufficiency, stage III (moderate ) 05/16/2018 Congestive heart failure ([facility]) 04/29 Obstructive sleep apnea syndrome 04/29/2018 Anxiety 04/29/2018 Chronic obstructive pulmonary disease ([facility]) 03/07/2018 Diabetes mellitus ([facility]) 03/07/2018 Essential hypertension 03/07/2018 Hyperlipidemia 03/07/2018 Tobacco dependence syndrome 03/07/2018 Chronic hypoxemic respiratory failure ([facility]) 03/07/2018 Esophagitis 03/07/2018 Hypothyroidism 03/07/2018 Coronary arteriosclerosis [...] Other prematur e Heart Disease Sister 1 [place] Sister 2 Heart Sister 3 form heart problems Heart Sister 4 from heart problems [place] Son Open Heart Son Stroke Son (after [...] Comments Blood Pressure 108/64 01/30/2021 2:01 PM [facility] Pulse 63 01/30/2021 2:01 PM [facility] Temperature 36.1 C (97 F) 01/30/2021 2:01 PM [facility] Respiratory Rate 20 01/30/2021 2:01 PM [facility] Oxygen Saturation 91% 01/30/2021 2:01 PM [facility] Inhaled Oxygen Concentration - - Weight 64.8 kg (142 lb 12.8 oz) 01/30/2021 2:01 PM [facility] Height 152.4 cm (5') 01/30/2021 2:01 PM [facility] Body Mass Index 27.89 01/30/2021 2:01 PM [facility] Plan of Treatment Health Maintenance Due Date [...] 11/19/2021, 12/19/2020, 11/08/2019, Additional history exists Meningococcal B Vaccine Aged Out No l [...] nephropathy, with long-term current use of insulin LIPID PANEL Routine 04/30/2020 4:15 PM CDT Essential hypertension Type 2 diabetes mellitus with diabetic nephropathy, with long-term current use of insulin from Last 3 Months or Most Recently Relevant to Health Maintenance Results * A1C (BACK OFFICE) (01/30/2021) HGB A1C 7.0 % [id number] T [facility] JESUS MARENGO 01/30/2021 us Jessee Gregg MD LABORATORY Final Resul t -[id number] [place] [address], * LIPID PANEL (04/30/2020 4:15 PM CDT) CHOLESTEROL 159 <200 mg/dL [facility] HDL 53 > OR = 50 mg/dL [facility] TRIGLYCERIDES 109 <150 mg/dL [facility] LDL (CALCULATED) 85 mg/dL (calc) [facility] Comment: Reference range: <100 Desirable range <100 mg/dL for primary prevention; <70 mg/dL for patients with CHD or diabetic patients with > or = 2 CHD risk factors. LDL-C is now calculated using the Jamil-John calculation, which is a validated novel method providing better accuracy than the Friedewald equation in the estimation of LDL-C. Jamil CRUZ et al. PAUL. 2013;310(19): 3709-3581 (http://education.Med fusion.AntCor/faq/QTA667) CHOL/HDL RATIO 3.0 <5.0 (calc) [facility] [...] t [facility] [id number], [place] [id number] from Last 3 Months or Most Recently Relevant to Health Maintenance Insurance MEDICARE [id number]
[2024-04-30] MEDS: IPRATROPIUM 0.5 MG/ALBUTEROL SULFATE 2.5 MG AMPUL.NEB 3 ML INHALATION (21:55)
[2024-04-30 21:56] VITALS: PULSE 96; RESP 26
[2024-04-30 22:04] VITALS: PULSE 96; RESP 26
[2024-04-30 22:24] LABS: Influenza A QL RT-PCR Negative (Negative); Influenza B QL RT-PCR Negative (Negative); RSV RNA, RT-PCR Negative (Negative); SARS-CoV-2 RNA PCR Negative (Negative)
--- NOTE | 2024-04-30 22:25 | P.HP_ITS ---
H&P: HPI History of Present Illness Date/Time: 04/30/24 22:25 Chief Complaint: Shortness of breath Narrative: 83-year-old female with past medical history chronic hypoxic hypercapnic respiratory failure on 6 L home O2, end-stage COPD, essential hypertension, CHF with preserved ejection fraction, coronary artery disease with history of cardiac stent 21 years ago chronic kidney disease and diabetes among other comorbidities who presented to the ER via EMS from home due to increased shortness of breath today. The patient is COPD is on chronic home O2 of 6 L. she reports that she has been more short of breath for the last 1.5 days. But a few hours prior to coming to the ER her shortness of breath acutely worsened with overt distress in the last 1.5 hours. The patient was found to be satting in the mid 80s on 6 L nasal cannula. She reports that she has been desatting down into the 70s when she will cough. She states that she always coughs but the cough is nonproductive. She does not think she has been coughing more than usual but she does not usually desat the way she has been recently. She reports that she feels hot constantly and but has been sweating more than usual. She denies any actual fevers or chills. She was given IV Solu-Medrol and to DuoNebs in route to the ER. She reported slight improvement in her symptoms with the treatments. When she arrived to the ER she was satting 90% on 6 L. She is afebrile. She denies any chest pain. She does have diastolic heart failure. She reports that her she was on 80 of Lasix daily but since her lower extremity edema had improved significantly her doctor had cut back her Lasix to 40 daily. Her leg swelling has not recurred. She was last hospitalized for COPD exacerbation, CHF exacerbation and non-STEMI March 14, 2024. In the ER labs demonstrated white count of 13 stable hemoglobin 11.9, compensated hypercarbia on ABG, creatinine better than baseline at 1.04 and glucose of 227 with a BNP of 9820. COVID flu and RSV PCR was negative. Chest x-ray demonstrated no acute process. The patient received albuterol and Atrovent nebulizer treatment and a dose of Levaquin. She was started on Airvo with a flow rate of 35 and 58% FiO2 with improvement in her symptoms. Review of Systems 2 Review of Systems: 12 systems were reviewed with pertinent positives and negatives per HPI. Except as documented in the HPI, all other systems were reviewed and are negative. 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 Prior echocardiogram 05/2023 demonstrated basal inferior septal wall severely hypokinetic to akinetic but this was not mentioned on the most recent echo Chronic kidney disease Stage IIIB Hypothyroidism Coronary artery disease Normal Lexiscan 10/2022 Gastroesophageal reflux disease Chronic obstructive pulmonary disease Hyperlipidemia Surgical History Surgical History History of cholecystectomy History of appendectomy History of partial hysterectomy Family History Family History Father Cerebrovascular accident Mother Diabetes mellitus Heart disease Sibling Throat cancer Renal failure Suicide Sibling Heart disease Social History Social History (Updated 05/01/24 @ 08:24 by Matilde Husain DO) Social History: Surrogate medical decision maker: [place] Bonilla, anjelica. Code status: Do not intubate Smoking packs per day: 1 Smoking cigarettes per day: 20.0 Years smoked: 40 Smoking pack-years: 40.00 Smoking status: Former smoker Second hand tobacco smoke exposure: Yes Alcohol intake: never Alcohol use details: Social Substance use: never Substance use type: does not use Do You Feel Safe in your Home?: Yes Lack of Transportation: No Lack of Food: Never True Current Housing: I Have Housing Concerned About Future Housing: No Difficulty Paying Gas/Electric Bills: No Difficulty Paying for Meds: No Currently Unemployed: No Education: High School Diploma/GED Difficulty w/ Childcare or Family Care: No Living arrangements: with family Additional living arrangements comments: Lives with son, [id number] and 3 grandchildren in [place]. 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 Gender identity (if verbalized by the patient): Female Spiritual care concerns: No Meds Home Medications and Allergies Home Medications ?Medication ?Instructions ?Recorded ?Confirmed ?Type insulin glargine 100 unit/mL (3 14 unit subcut HS 05/15/21 05/01/24 History mL) subcutaneous pen (Lantus Solostar U-100 Insulin) insulin lispro 100 unit/mL See Protocol subcut DAILY 05/15/21 05/01/24 History subcutaneous pen (Humalog KwikPen (U-100) Insulin) lovastatin 20 mg tablet 20 mg PO HS 05/15/21 05/01/24 History omeprazole 40 mg capsule,delayed 40 mg PO DAILY 05/15/21 05/01/24 History release aspirin 81 mg tablet,delayed 81 mg PO DAILY 09/26/21 05/01/24 History release levothyroxine 137 mcg tablet 137 mcg PO DAILY@0630 #30 tabs 06/04/23 05/01/24 Rx (Synthroid) levalbuterol tartrate 45 2 inh inhalation Q6H PRN shortness 07/05/23 05/01/24 Rx mcg/actuation aerosol inhaler of breath or wheezing #15 grams escitalopram oxalate 20 mg tablet 10 mg PO DAILY 07/14/23 05/01/24 History Breo Ellipta 100 mcg-25 mcg/dose See Rx Instructions .Route 10/20/23 05/01/24 Rx powder for inhalation (fluticasone .COMPLEX #180 ea furoate-vilanterol) furosemide 40 mg tablet 40 mg PO Q12H 10/25/23 05/01/24 History ipratropium 0.5 mg-albuterol 3 mg 3 ml inhalation Q6H PRN shortness 11/03/23 05/01/24 Rx (2.5 mg base)/3 mL nebulization of breath or wheezing 90 days soln #1,080 mL ramelteon 8 mg tablet See Rx Instructions .Route 02/28/24 05/01/24 Rx .COMPLEX #90 tabs montelukast 10 mg tablet 10 mg PO QPM 03/12/24 05/01/24 History nifedipine 60 mg tablet,extended 60 mg PO DAILY 03/12/24 05/01/24 History release amoxicillin 500 mg-potassium 1 tablet PO Q12HR #2 tabs 03/16/24 Rx clavulanate 125 mg tablet (Augmentin) doxycycline hyclate 100 mg tablet 100 mg PO Q12HR #1 tablet 03/16/24 Rx guaifenesin 600 mg tablet, 600 mg PO Q12HR #60 tabs 03/16/24 05/01/24 Rx extended release 12 hr (Mucus Relief ER) Allergies Allergy/AdvReac Type Severity Reaction Status Date / Time No Known Allergies Allergy Verified 04/12/24 07:58 Vital Signs Vital Signs - 24 hr 04/30/24 20:01 04/30/24 20:35 04/30/24 21:56 Temperature 98.8 F Pulse Rate 93 96 Respiratory Rate 14 26 H Blood Pressure 180/71 H Pulse Oximetry 96 100 Oxygen Delivery Simple Face Mask High Flow Therapy with Na Oxygen Flow Rate 6 35 Fraction of Inspired Oxygen 58 04/30/24 22:04 Temperature Pulse Rate 96 Respiratory Rate 26 H Blood Pressure Pulse Oximetry Oxygen Delivery Oxygen Flow Rate Fraction of Inspired Oxygen Exam 2 Narrative: Weight 56.8 kg BMI 24.5 Const: Other: Chronically ill-appearing, thin body habitus, frail, elderly, lying in bed with head of bed about 30? with Airvo in place HENMT: Other: Head is normocephalic atraumatic, mucous membranes are dry, no oral pharyngeal erythema Eyes: Other: Pupils are equal and reactive, no scleral icterus, positive conjunctival pallor Neck: Other: No JVD, no lymphadenopathy, trachea midline Resp: Other: Decreased breath sounds bilaterally with markedly decreased breath sounds, accessory muscle use Cardio: Other: Regular rate, regular rhythm, 2+ bilateral radial pedal pulses GI: Other: Soft, nontender, nondistended, positive bowel sounds Skin: Other: Generalized pallor, non jaundice, warm to touch, sweaty Neuro: Other: Alert oriented x4, speech is clear, no facial asymmetry, no localizing neurologic deficits noted during the course of conversation Extrem: Other: No cyanosis, no edema Psych: Other: Appropriate mood and affect, pleasant and cooperative, judgment and insight intact H&P: Results Labs Labs: Laboratory Tests 04/30/24 20:14 04/30/24 20:13 04/30/24 04/30/24 04/30/24 20:13 20:14 21:30 WBC 13.0 H RBC 4.41 Hgb 11.9 L Hct 40.9 MCV 92.7 MCH 27.0 MCHC 29.1 L RDW 15.1 H Plt Count 300 MPV 10.3 Immature Gran % (Auto) 0.3 Neut % (Auto) 64.8 Lymph % (Auto) 26.1 Fre[place] % (Auto) 4.9 Eos % (Auto) 3.0 Baso % (Auto) 0.9 Lymph # (Auto) 3.39 H [place] # (Auto) 0.6 Eos # (Auto) 0.4 H Baso # (Auto) 0.1 Abs Immat Gran (auto) 0.04 H Absolute Neuts (auto) 8.4 H Absolute Nucleated RBC 0.000 Band Neutrophils % Not Reportable Nucleated RBC % 0.0 Atypical Lymphocytes Present Platelet Estimate Adequate Hypochromasia 1+ Anisocytosis 1+ Schistocytes None seen Puncture Site Right radial ABG pH 7.379 ABG pCO2 49.0 H ABG pO2 68.5 L ABG PO2/FiO2 Ratio 1.14 ABG HCO3 28.3 H ABG O2 Saturation 93.2 L ABG O2 Content 15.7 L ABG Base Excess 2.4 A-a Gradient 305.4 Oxyhemoglobin 91.9 Carboxyhemoglobin 0.6 Methemoglobin 0.3 Reduced Hemoglobin 7.2 H Total Hemoglobin 12.1 O2 Delivery Device High flow therapy O2 Liters/Min 35.0 FiO2 60 Sodium 144 Potassium 4.5 Chloride 103 Carbon Dioxide 33 H Anion Gap 8 BUN 28 H D Creatinine 1.04 H Estim Creat Clear Calc 27 Estimated GFR 51 L Glucose 227 H Calcium 9.4 Total Bilirubin 0.6 AST 28 ALT 22 Alkaline Phosphatase 82 NT-Pro-B Natriuret Pep 9820 H Total Protein 7.0 Albumin 4.1 Influenza A (RT-PCR) Influenza B (RT-PCR) RSV (RT-PCR) SARS-CoV-2 RNA (RT-PCR) 04/30/24 21:39 WBC RBC Hgb Hct MCV MCH MCHC RDW Plt Count MPV Immature Gran % (Auto) Neut % (Auto) Lymph % (Auto) Fre[place] % (Auto) Eos % (Auto) Baso % (Auto) Lymph # (Auto) [place] # (Auto) Eos # (Auto) Baso # (Auto) Abs Immat Gran (auto) Absolute Neuts (auto) Absolute Nucleated RBC Band Neutrophils % Nucleated RBC % Atypical Lymphocytes Platelet Estimate Hypochromasia Anisocytosis Schistocytes Puncture Site ABG pH ABG pCO2 ABG pO2 ABG PO2/FiO2 Ratio ABG HCO3 ABG O2 Saturation ABG O2 Content ABG Base Excess A-a Gradient Oxyhemoglobin Carboxyhemoglobin Methemoglobin Reduced Hemoglobin Total Hemoglobin O2 Delivery Device O2 Liters/Min FiO2 Sodium Potassium Chloride Carbon Dioxide Anion Gap BUN Creatinine Estim Creat Clear Calc Estimated GFR Glucose Calcium Total Bilirubin AST ALT Alkaline Phosphatase NT-Pro-B Natriuret Pep Total Protein Albumin Influenza A (RT-PCR) Negative Influenza B (RT-PCR) Negative RSV (RT-PCR) Negative SARS-CoV-2 RNA (RT-PCR) Negative Impressions Chest X-Ray 04/30/24 20:56 IMPRESSION: No acute cardiopulmonary process. EKG: Personally reviewed. Normal sinus rhythm, right ventricular hypertrophy, nonspecific T-wave abnormality QTC 465. Cardiology interpretation pending All imaging and EKGs personally reviewed and interpreted. And unless stated otherwise agree with radiologic and cardiology interpretation. Assessment and Plan Assessment and plan (1) Acute and chronic respiratory failure: Qualifiers: Respiratory failure complication: hypoxia and hypercapnia Qualified Code(s): J96.21 - Acute and chronic respiratory failure with hypoxia; J96.22 - Acute and chronic respiratory failure with hypercapnia Code(s): J96.20 - Acute and chronic respiratory failure, unspecified whether with hypoxia or hypercapnia Status: Acute Assessment and Plan: Acute hypoxic respiratory failure on chronic hypoxic hypercapnic respiratory failure (2) COPD exacerbation: Code(s): J44.1 - Chronic obstructive pulmonary disease with (acute) exacerbation Status: Acute (3) Type 2 diabetes mellitus with hyperglycemia, with long-term current use of insulin: Code(s): E11.65 - Type 2 diabetes mellitus with hyperglycemia; Z79.4 - rn long term care (current) use of insulin Status: Acute (4) Essential hypertension: Code(s): I10 - Essential (primary) hypertension Status: Acute (5) Hypothyroidism: Qualifiers: Hypothyroidism type: unspecified Qualified Code(s): E03.9 - Hypothyroidism, unspecified Code(s): E03.9 - Hypothyroidism, unspecified Status: Acute Plan Patient presents with acute hypoxic respiratory failure on chronic hypoxic hypercapnic respiratory failure due to underlying COPD exacerbation. Patient received Solu-Medrol and [id number] nebs in route to the ER. She received an additional nebulizer treatment on arrival to the ER and was given a dose of Levaquin. Chest x-ray to with performed demonstrated no acute cardiopulmonary process. The patient is requiring increasing oxygen requirements in is been placed on Airvo which she is tolerating well. She will be admitted to the intermediate unit. She was placed on scheduled Solu-Medrol 40 IV q.6 hours and scheduled nebulizer treatments. Will continue the patient's home long-acting inhalers. Will wean oxygen as tolerated. Patient does not have any clear evidence of underlying acute infectious process with negative viral panel and negative chest x-ray however she does have some leukocytosis. This could be stress reaction but given degree of respiratory failure will cover empirically for possible underlying infectious process. Will repeat CBC in a.m. Patient does have elevated BNP but does not appear clinically volume overloaded and CHF exacerbation seems less likely. Patient has type 2 diabetes mellitus on chronic insulin therapy. She does have moderate amount of hyperglycemia with glucoses in the 200s. Will resume the patient's home Lantus and will place patient on high-dose sliding scale insulin given that she is going to be steroid therapy. Hypoglycemia protocol has been ordered as needed. Lantus The patient's blood pressures are moderately elevated above her baseline but still within goal range. Will resume home antihypertensives. Will resume patient's home thyroid medications. Patient has chronic kidney disease but creatinine is actually better than baseline. Will avoid nephrotoxic medications. Will repeat electrolyte panel in a.m.. Patient has been admitted as observation status. Quality VTE Prophylaxis VTE prophylaxis: mechanical ordered (SCDs) Hospitalist [facility] Advance Care Plan I have confirmed that the patient's Advanced Care Plan is present, code status is documented, or surrogate decision maker is listed in patient medical record.: Yes Medication Reconciliation I have utilized all available resources to obtain, update and review the patients current medications (includes all prescriptions, OTC, herbals, cannabis, and nutritional supplements).: Yes
[2024-04-30 22:41] VITALS: BP 141/68; PULSE 99; RESP 21; O2SAT 96
[2024-05-01] VITALS (21 sets, daily range): BP systolic 129–177; BP diastolic 49–81; PULSE 67–99; RESP 13–33; TEMP 36.6–37; O2SAT 91–99; BMI 24.2
[2024-05-01 00:11] LABS: Glucose Point of Care 424 mg/dl (65-105)
[2024-05-01] MEDS: methylPREDNISolone SOD SUCC 40 MG VIAL IV PUSH ×4 (00:13→20:56)
[2024-05-01] MEDS: IPRATROPIUM 0.5 MG/ALBUTEROL SULFATE 2.5 MG AMPUL.NEB 3 ML INHALATION ×3 (01:46→19:53)
[2024-05-01 02:54] LABS: Glucose Point of Care 492 mg/dl (65-105)
[2024-05-01] MEDS: INSULIN GLARGINE (*BKC) 100 UNITS/ML 16 UNITS SUB-Q ×2 (04:12→20:55)
[2024-05-01] MEDS: INSULIN ASPART (*BKC) 100 UNITS/ML 12 UNITS SUB-Q (04:13)
[2024-05-01 05:23] LABS: Glucose Point of Care 444 mg/dl (65-105)
[2024-05-01 05:51] LABS: Basophils Percent Auto 0.2 % (0.2-1.2); Hematocrit 35.5 % (37.0-47.0); Hemoglobin 10.5 g/dL (12.0-15.0); Immature Granulocyte Absolute 0.04 K/mm3 (0.00-0.031); Immature Granulocyte Percent A 0.4 % (0-0.5); Lymphocytes Absolute Auto 0.36 K/mm3 (0.9-3.2); Mean Corpuscular HGB Conc 29.6 g/dl (32-36); Mean Corpuscular Volume 91.3 fl (80-100); Mean Platelet Volume 10.5 fl (7.4-10.4); Monocytes Percent Auto 0.4 % (2.6-8.5); Neutrophils Absolute Auto 8.6 K/mm3 (1.3-6.7); Platelet Count Result 254 k/mm3 (150-375); Red Blood Count 3.89 M/mm3 (4.2-5.4); Red Cell Distribution Width 14.8 % (11.5-14.5); White Blood Count 9.1 K/mm3 (4.5-10.0)
[2024-05-01 06:05] LABS: Anion Gap 11 mmol/L (4-12); Blood Urea Nitrogen 34 mg/dL (7-17); Calcium 9.3 mg/dL (8.4-10.2); Carbon Dioxide 26 mmol/L (22-30); Chloride 101 mmol/L (98-107); Estimated CRCL calculation 25 ml/min; Estimated Glomerular Filt Rate 47; Glucose 456 mg/dL (65-110); Potassium 4.2 mmol/L (3.4-5.0); Sodium 138 mmol/L (137-145)
[2024-05-01] MEDS: LEVOTHYROXINE SODIUM 112 MCG, LEVOTHYROXINE SODIUM 25 MCG 137 MCG PO (06:36)
[2024-05-01 06:40] LABS: Hypochromasia 1+; Platelet Estimate Adequate (Adequate)
[2024-05-01 06:41] LABS: Anisocytosis 1+; Schistocytes None Seen
--- NOTE | 2024-05-01 07:31 | PC.NURSE ---
Breakfast tray ordered for pt.
[2024-05-01 07:55] LABS: Glucose Point of Care 380 mg/dl (65-105)
[2024-05-01 07:55] LABS: Glucose Point of Care 362 mg/dl (65-105)
[2024-05-01] MEDS: INSULIN ASPART (*BKC) 100 UNITS/ML SUB-Q ×6 (07:58→18:10)
[2024-05-01] MEDS: guaiFENesin 12 HR 600 MG TABCR PO ×2 (07:59→20:53)
[2024-05-01] MEDS: PANTOPRAZOLE 40 MG TABLET PO ×2 (08:01→18:10)
[2024-05-01] MEDS: FUROSEMIDE 40 MG TABLET PO ×2 (08:01→20:54)
[2024-05-01] MEDS: NIFEdipine 30 MG TAB.ER.24 60 MG PO (08:01)
[2024-05-01] MEDS: ESCITALOPRAM OXALATE 10 MG TABLET PO (08:01)
[2024-05-01] MEDS: ASPIRIN 81 MG ENTERIC TABLET PO (08:02)
--- NOTE | 2024-05-01 08:25 | PC.NURSE ---
Pt states to this RN that she forgot to tell the nightshift RN that she is incontinent of bladder. This RN found pt in a heavily saturated depend. Pt placed in clean depend.
--- NOTE | 2024-05-01 09:50 | ADMGEN ---
This patient, Nikki Bonilla, was admitted to IMU Room 209-01 at 0858. Patient/family oriented to hospital policies and general routines including ID bracelet, bed and alarms, visiting hours, pain management, procedures, bathroom and other care routines, personal items, smoking policy, room service/diet, and visiting hours. Information on how to activate the Rapid Response Team has been discussed. Patient/Family are encouraged to report perceived risks to care and to ask questions if they do not understand what they are told or what they should do.
--- NOTE | 2024-05-01 13:01 | P.CONPL_ITS ---
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 She presented with a three-day history of shortness of breath and worsening hypoxemia. At home, she has been on relatively high FiO2, likely related to her pulmonary hypertension, although her most recent echocardiogram did not show significantly elevated pulmonary artery systolic pressure. A chest X-ray showed no evidence of infiltrates, and tests for common viruses were negative. Physical examination revealed distant breath sounds due to emphysema but no wheezing. Plan: Continue the current regimen of IV steroids, short-acting bronchodilators, and diuretics for congestive heart failure. Reduce the dose of IV steroids. Conduct a lower extremity study to exclude DVT. Consider DVT prophylaxis with subcutaneous heparin unless contraindicated. I will continue to follow up with the patient in collaboration with you. (3) Acute and chronic respiratory failure: Qualifiers: Respiratory failure complication: hypoxia and hypercapnia Qualified Code(s): J96.21 - Acute and chronic respiratory failure with hypoxia; J96.22 - Acute and chronic respiratory failure with hypercapnia Code(s): J96.20 - Acute and chronic respiratory failure, unspecified whether with hypoxia or hypercapnia Status: Acute (4) Essential hypertension: Code(s): I10 - Essential (primary) hypertension Status: Acute (5) Diastolic congestive heart failure: Code(s): I50.30 - Unspecified diastolic (congestive) heart failure Status: Acute (6) Coronary artery disease: Code(s): I25.10 - Atherosclerotic heart disease of [place] coronary artery without angina pectoris Status: Acute (7) Insulin dependent type 2 diabetes mellitus: Code(s): E11.9 - Type 2 diabetes mellitus without complications; Z79.4 - ocean transportation intermediary (current) use of insulin Status: Acute History of Present Illness History of Present Illness Consult date: 05/01/24 Chief complaint: Acute on chronic respiratory failure Narrative: This 83-year-old female, with a known history of hypoxemic respiratory failure due to advanced COPD, presented with a few days' history of shortness of breath. She has a history of frequent COPD exacerbations, with her last hospitalization occurring approximately two months ago. According to her family, she began experiencing shortness of breath and mild coughing about three days prior to this hospitalization. She has been using supplemental oxygen at home at relatively high flow rates of 6-8 liters per minute, and her family noted a drop in her oxyhemoglobin saturation. She reported no fever, chills, hemoptysis, chest pain, or lower extremity edema. Upon evaluation in the emergency room, a chest X-ray showed no active lung disease. Arterial blood gases indicated chronic respiratory acidosis, well- compensated, with a pH of 7.37 and pCO2 at 49 mmHg. BNP levels were elevated above 9000. The patient has been treated with antibiotics, IV steroids, and short-acting bronchodilators, presumably for a COPD exacerbation. Currently, she is on 35% FiO2, with some improvement in her shortness of breath noted since admission. Approximately five years ago, pulmonary function testing indicated mild obstructive airway disease with an FEV1 of around 0.9 L, along with evidence of air trapping, lung hyperinflation, and severely reduced lung diffusion capacity at 30% of predicted. Previous chest CT scans revealed advanced centrilobular emphysema and a prominent pulmonary artery suggestive of pulmonary hypertension. Her past medical history includes diabetes mellitus, hypertension, and congestive heart failure related to ventricular diastolic dysfunction. She has a history of lower extremity edema and had been on relatively high doses of Lasix, which was recently decreased to 40 mg daily due to improvement in her lower extremity edema. She is on maintenance bronchodilators and has been using short- acting bronchodilators approximately every four hours at home. 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 Prior echocardiogram 05/2023 demonstrated basal inferior septal wall severely hypokinetic to akinetic but this was not mentioned on the most recent echo Chronic kidney disease Stage IIIB Hypothyroidism Coronary artery disease Normal Lexiscan 10/2022 Gastroesophageal reflux disease Chronic obstructive pulmonary disease Hyperlipidemia Surgical History Surgical History History of cholecystectomy History of appendectomy History of partial hysterectomy Family History Family History Father Cerebrovascular accident Mother Diabetes mellitus Heart disease Sibling Throat cancer Renal failure Suicide Sibling Heart disease Social History Social History (Updated 05/01/24 @ 08:24 by Matilde Husain DO) Social History: Surrogate medical decision maker: anjelica Ward. Code status: Do not intubate Smoking packs per day: 1 Smoking cigarettes per day: 20.0 Years smoked: 60 Smoking pack-years: 60.00 Smoking status: Former smoker Tobacco type: cigarettes Second hand tobacco smoke exposure: Yes Smoking end date: 05/01/1964 Alcohol intake: never Alcohol use details: Social Substance use: never Substance use type: does not use Do You Feel Safe in your Home?: Yes Lack of Transportation: YES Lack of Food: Never True Current Housing: I Have Housing Concerned About Future Housing: No Difficulty Paying Gas/Electric Bills: No Difficulty Paying for Meds: No Currently Unemployed: No Education: High School Diploma/GED Difficulty w/ Childcare or Family Care: No Living arrangements: with family Additional living arrangements comments: Lives with son, [id number] and 3 grandchildren in [place]. 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 Gender identity (if verbalized by the patient): Female Spiritual care concerns: No Meds Home Medications and Allergies Home Medications ?Medication ?Instructions ?Recorded ?Confirmed ?Type insulin glargine 100 unit/mL (3 14 unit subcut HS 05/15/21 05/01/24 History mL) subcutaneous pen (Lantus Solostar U-100 Insulin) insulin lispro 100 unit/mL See Protocol subcut TIDWM 05/15/21 05/01/24 History subcutaneous pen (Humalog KwikPen (U-100) Insulin) lovastatin 20 mg tablet 20 mg PO HS 05/15/21 05/01/24 History omeprazole 40 mg capsule,delayed 40 mg PO DAILY 05/15/21 05/01/24 History release aspirin 81 mg tablet,delayed 81 mg PO DAILY 09/26/21 05/01/24 History release levothyroxine 137 mcg tablet 137 mcg PO DAILY@0630 #30 tabs 06/04/23 05/01/24 Rx (Synthroid) levalbuterol tartrate 45 2 inh inhalation Q6H PRN shortness 07/05/23 05/01/24 Rx mcg/actuation aerosol inhaler of breath or wheezing #15 grams escitalopram oxalate 20 mg tablet 10 mg PO DAILY 07/14/23 05/01/24 History Breo Ellipta 100 mcg-25 mcg/dose See Rx Instructions .Route 10/20/23 05/01/24 Rx powder for inhalation (fluticasone .COMPLEX #180 ea furoate-vilanterol) furosemide 40 mg tablet 40 mg PO Q12H 10/25/23 05/01/24 History ipratropium 0.5 mg-albuterol 3 mg 3 ml inhalation Q6H PRN shortness 11/03/23 05/01/24 Rx (2.5 mg base)/3 mL nebulization of breath or wheezing 90 days soln #1,080 mL ramelteon 8 mg tablet See Rx Instructions .Route 02/28/24 05/01/24 Rx .COMPLEX #90 tabs montelukast 10 mg tablet 10 mg PO QPM 03/12/24 05/01/24 History guaifenesin 600 mg tablet, 600 mg PO Q12HR #60 tabs 03/16/24 05/01/24 Rx extended release 12 hr (Mucus Relief ER) Allergies Allergy/AdvReac Type Severity Reaction Status Date / Time No Known Allergies Allergy Verified 04/12/24 07:58 Vital Signs Vital Signs - 24 hr 04/30/24 20:01 04/30/24 20:35 04/30/24 21:56 Temperature 37.1 C Pulse Rate 93 96 Respiratory Rate 14 26 H Blood Pressure 180/71 H Pulse Oximetry 96 100 Oxygen Delivery Simple Face Mask High Flow Therapy with Na Oxygen Flow Rate 6 35 Fraction of Inspired Oxygen 58 04/30/24 22:04 04/30/24 22:41 05/01/24 01:49 Temperature Pulse Rate 96 99 86 Respiratory Rate 26 H 21 H 33 H Blood Pressure 141/68 H Pulse Oximetry 96 Oxygen Delivery Oxygen Flow Rate Fraction of Inspired Oxygen 05/01/24 01:56 05/01/24 02:46 05/01/24 03:07 Temperature Pulse Rate 86 85 82 Respiratory Rate 33 H 16 Blood Pressure 170/70 H Pulse Oximetry 95 Oxygen Delivery Oxygen Flow Rate Fraction of Inspired Oxygen 05/01/24 06:29 05/01/24 07:14 05/01/24 08:09 Temperature Pulse Rate 68 72 95 Respiratory Rate 13 20 20 Blood Pressure 147/60 H 161/54 H 177/81 H Pulse Oximetry 96 97 97 Oxygen Delivery Oxygen Flow Rate Fraction of Inspired Oxygen 05/01/24 08:18 05/01/24 08:18 05/01/24 08:27 Temperature Pulse Rate 83 94 Respiratory Rate 26 H 26 H Blood Pressure Pulse Oximetry 96 Oxygen Delivery High Flow Therapy with Na Oxygen Flow Rate 35 Fraction of Inspired Oxygen 58 05/01/24 09:00 05/01/24 12:00 Temperature 36.6 C 37.0 C Pulse Rate 94 67 Respiratory Rate 28 H 20 Blood Pressure 148/71 H 148/74 H Pulse Oximetry 91 98 Oxygen Delivery Oxygen Flow Rate Fraction of Inspired Oxygen Exam 2 Narrative: GENERAL APPEARANCE: Well developed, well nourished, alert and cooperative, and appears to be in mild respiratory distress while on high-flow nasal cannula SKIN: Inspection of the skin reveals no rashes, ulcerations or petechiae. HEENT: Sclerae anicteric and conjunctivae pink and moist. Extraocular movements were intact and pupils were equal, round, and reactive to light. Moist oral mucosa NECK: Supple. There was no thyroid enlargement, and no tenderness, or masses were felt. CHEST: Normal AP diameter and normal contour without any kyphoscoliosis. LUNGS: Hyperinflated lungs distant breath sounds no wheezing CARDIAC: There was a regular rate and rhythm without any murmurs, gallops, rubs. ABDOMEN: Soft and nontender with normal bowel sounds. There was no organomegaly. LYMPH NODES: No lymphadenopathy was appreciated in the neck. EXTREMITIES: No cyanosis, clubbing or edema. NEUROLOGIC: Alert and oriented x 3. Normal affect. Results Laboratory Findings 05/01/24 05:42 05/01/24 05:42 ABG, PT/INR, D-dimer: ABG ABG pH 7.379 (7.350-7.450) 04/30/24 21:30 ABG pCO2 49.0 mmHg (35.0-45.0) H 04/30/24 21:30 ABG pO2 68.5 mmHg (80.0-100.0) L 04/30/24 21:30 ABG O2 Saturation 93.2 % (95.0-100.0) L 04/30/24 21:30 Abnormal lab findings: Abnormal Labs 04/30/24 04/30/24 04/30/24 20:13 20:14 21:30 WBC 13.0 H RBC Hgb 11.9 L Hct MCHC 29.1 L RDW 15.1 H MPV Neut % (Auto) Lymph % (Auto) [place] % (Auto) Lymph # (Auto) 3.39 H [place] # (Auto) Eos # (Auto) 0.4 H Abs Immat Gran (auto) 0.04 H Absolute Neuts (auto) 8.4 H ABG pCO2 49.0 H ABG pO2 68.5 L ABG HCO3 28.3 H ABG O2 Saturation 93.2 L ABG O2 Content 15.7 L Reduced Hemoglobin 7.2 H Carbon Dioxide 33 H BUN 28 H D Creatinine 1.04 H Estimated GFR 51 L Glucose 227 H POC Capillary Glucose NT-Pro-B Natriuret Pep 9820 H 05/01/24 05/01/24 05/01/24 00:09 02:49 05:20 WBC RBC Hgb Hct MCHC RDW MPV Neut % (Auto) Lymph % (Auto) [place] % (Auto) Lymph # (Auto) [place] # (Auto) Eos # (Auto) Abs Immat Gran (auto) Absolute Neuts (auto) ABG pCO2 ABG pO2 ABG HCO3 ABG O2 Saturation ABG O2 Content Reduced Hemoglobin Carbon Dioxide BUN Creatinine Estimated GFR Glucose POC Capillary Glucose 424 H 492 H 444 H NT-Pro-B Natriuret Pep 05/01/24 05/01/24 05/01/24 05:42 06:50 07:52 WBC RBC 3.89 L Hgb 10.5 L Hct 35.5 L MCHC 29.6 L RDW 14.8 H MPV 10.5 H Neut % (Auto) 95.0 H Lymph % (Auto) 4.0 L [place] % (Auto) 0.4 L Lymph # (Auto) 0.36 L [place] # (Auto) 0.0 L Eos # (Auto) Abs Immat Gran (auto) 0.04 H Absolute Neuts (auto) 8.6 H ABG pCO2 ABG pO2 ABG HCO3 ABG O2 Saturation ABG O2 Content Reduced Hemoglobin Carbon Dioxide BUN 34 H Creatinine 1.12 H Estimated GFR 47 L Glucose 456 H POC Capillary Glucose 380 H 362 H NT-Pro-B Natriuret Pep
[2024-05-01 14:36] LABS: Glucose Point of Care 225 mg/dl (65-105)
[2024-05-01 15:05] LABS: Alveolar/Arterial O2 Gradient 324.7 mmHg; Fractional Inspired Oxygen 63 %; HCO3 ABG 27.3 mEq/l (22.0-26.0); Oxygen Content ABG 15.9 %vol (16.0-22.0); Oxygen Saturation ABG 96.2 % (95.0-100.0); Oxyhemoglobin 95.2 % THb (90.0-100.0); PCO2 ABG 40.7 mmHg (35.0-45.0); PO2 FiO2 Ratio Arterial Blood 1.27 %; Total Hemoglobin 11.8 g/dL (12.0-18.0); pH ABG 7.444 (7.350-7.450)
[2024-05-01 15:07] LABS: Device HIGH FLOW THERAPY; Modified Allen's Test Pass; Site Drawn RIGHT RADIAL
[2024-05-01 17:22] LABS: Glucose Point of Care 236 mg/dl (65-105)
--- NOTE | 2024-05-01 17:34 | P.PNIM_ITS ---
Progress Note: A&P Assessment and Plan (1) Acute and chronic respiratory failure: Qualifiers: Respiratory failure complication: hypoxia and hypercapnia Qualified Code(s): J96.21 - Acute and chronic respiratory failure with hypoxia; J96.22 - Acute and chronic respiratory failure with hypercapnia Code(s): J96.20 - Acute and chronic respiratory failure, unspecified whether with hypoxia or hypercapnia Status: Acute Assessment and Plan: Acute hypoxic respiratory failure on chronic hypoxic hypercapnic respiratory failure (2) COPD exacerbation: Code(s): J44.1 - Chronic obstructive pulmonary disease with (acute) exacerbation Status: Acute (3) Type 2 diabetes mellitus with hyperglycemia, with long-term current use of insulin: Code(s): E11.65 - Type 2 diabetes mellitus with hyperglycemia; 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 Patient received Solu-Medrol and [id number] nebs in route to the ER. She received an additional nebulizer treatment on arrival to the ER and was given a dose of Levaquin. Chest x-ray to with performed demonstrated no acute cardiopulmonary process. The patient is requiring increasing oxygen requirements in is been placed on Airvo which she is tolerating well. She will be admitted to the intermediate unit. She was placed on scheduled Solu-Medrol 40 IV q.6 hours and scheduled nebulizer treatments. Will continue the patient's home long-acting inhalers. Will wean oxygen as tolerated. Patient does not have any clear evidence of underlying acute infectious process with negative viral panel and negative chest x-ray however she does have some leukocytosis. This could be stress reaction but given degree of respiratory failure will cover empirically for possible underlying infectious process. Will repeat CBC in a.m. Patient does have elevated BNP but does not appear clinically volume overloaded and CHF exacerbation seems less likely. Patient has type 2 diabetes mellitus on chronic insulin therapy. She does have moderate amount of hyperglycemia with glucoses in the 200s. Will resume the patient's home Lantus and will place patient on high-dose sliding scale insulin given that she is going to be steroid therapy. Hypoglycemia protocol has been ordered as needed. Lantus The patient's blood pressures are moderately elevated above her baseline but still within goal range. Will resume home antihypertensives. Will resume patient's home thyroid medications. Patient has chronic kidney disease but creatinine is actually better than baseline. Will avoid nephrotoxic medications. Will repeat electrolyte panel in a.m.. Patient has been admitted as observation status. patient with end stage COPD presented with shortness of breath 2/2 exacerbation of COPD, patient is being treated with methylprednisone, duo neb, patient stats she is feeling little better compared to when she arrived, will have community relations rep consult her further recommendations to follow. Subjective Date/time seen: 05/01/24 17:34 Interval history: Shortness of breath H&P-Narrative: 83-year-old female with past medical history chronic hypoxic hypercapnic respiratory failure on 6 L home O2, end-stage COPD, essential hypertension, CHF with preserved ejection fraction, coronary artery disease with history of cardiac stent 21 years ago chronic kidney disease and diabetes among other comorbidities who presented to the ER via EMS from home due to increased shortness of breath today. The patient is COPD is on chronic home O2 of 6 L. she reports that she has been more short of breath for the last 1.5 days. But a few hours prior to coming to the ER her shortness of breath acutely worsened with overt distress in the last 1.5 hours. The patient was found to be satting in the mid 80s on 6 L nasal cannula. She reports that she has been desatting down into the 70s when she will cough. She states that she always coughs but the cough is nonproductive. She does not think she has been coughing more than usual but she does not usually desat the way she has been recently. She reports that she feels hot constantly and but has been sweating more than usual. She denies any actual fevers or chills. She was given IV Solu-Medrol and to DuoNebs in route to the ER. She reported slight improvement in her symptoms with the treatments. When she arrived to the ER she was satting 90% on 6 L. She is afebrile. She denies any chest pain. She does have diastolic heart failure. She reports that her she was on 80 of Lasix daily but since her lower extremity edema had improved significantly her doctor had cut back her Lasix to 40 daily. Her leg swelling has not recurred. She was last hospitalized for COPD exacerbation, CHF exacerbation and non-STEMI March 14, 2024. patient with end stage COPD presented with shortness of breath 2/2 exacerbation of COPD, patient is being treated with methylprednisone, duo neb, patient stats she is feeling little better compared to when she arrived, will have community relations rep consult her further recommendations to follow. Review of Systems Review of Systems: 12 systems were reviewed with pertinent positives and negatives per HPI. Except as documented in the HPI, all other systems were reviewed and are negative. Exam Narrative: Patient is comfortable, NAD HEENT: eyes are clear and none icteric LUNGS: Bilateral poor air entry with rhonchi and wheezing HEART: RR S1S2 ABD: BS+, Soft and nontender Lower extremities: no edema SKIN: nonjaundiced Neuro: grossly intact. Objective Data Vital Signs Vital Signs: Vital Signs - 24 hr 04/30/24 20:01 04/30/24 20:35 04/30/24 21:56 Temperature 37.1 C Pulse Rate 93 96 Respiratory Rate 14 26 H Blood Pressure 180/71 H Pulse Oximetry 96 100 Oxygen Delivery Simple Face Mask High Flow Therapy with Na Oxygen Flow Rate 6 35 Fraction of Inspired Oxygen 58 04/30/24 22:04 04/30/24 22:41 05/01/24 01:49 Temperature Pulse Rate 96 99 86 Respiratory Rate 26 H 21 H 33 H Blood Pressure 141/68 H Pulse Oximetry 96 Oxygen Delivery Oxygen Flow Rate Fraction of Inspired Oxygen 05/01/24 01:56 05/01/24 02:46 05/01/24 03:07 Temperature Pulse Rate 86 85 82 Respiratory Rate 33 H 16 Blood Pressure 170/70 H Pulse Oximetry 95 Oxygen Delivery Oxygen Flow Rate Fraction of Inspired Oxygen 05/01/24 06:29 05/01/24 07:14 05/01/24 08:09 Temperature Pulse Rate 68 72 95 Respiratory Rate 13 20 20 Blood Pressure 147/60 H 161/54 H 177/81 H Pulse Oximetry 96 97 97 Oxygen Delivery Oxygen Flow Rate Fraction of Inspired Oxygen 05/01/24 08:18 05/01/24 08:18 05/01/24 08:27 Temperature Pulse Rate 83 94 Respiratory Rate 26 H 26 H Blood Pressure Pulse Oximetry 96 Oxygen Delivery High Flow Therapy with Na Oxygen Flow Rate 35 Fraction of Inspired Oxygen 58 05/01/24 09:00 05/01/24 10:00 05/01/24 12:00 Temperature 36.6 C 37.0 C Pulse Rate 94 84 67 Respiratory Rate 28 H 20 Blood Pressure 148/71 H 148/74 H Pulse Oximetry 91 98 Oxygen Delivery Oxygen Flow Rate Fraction of Inspired Oxygen 05/01/24 12:00 05/01/24 14:00 Temperature Pulse Rate 90 89 Respiratory Rate Blood Pressure Pulse Oximetry Oxygen Delivery Oxygen Flow Rate Fraction of Inspired Oxygen Intake/Output Intake/Output: Intake & Output 04/28/24 04/29/24 04/30/24 05/01/24 23:59 23:59 23:59 23:59 Intake Total 150 Balance 150 Meds/Results Medications: Active Medications Generic Name Dose Route Start Last Admin Trade Name Freq PRN Reason Stop Dose Admin Albuterol/Ipratropium 3 ml 05/01/24 02:00 05/01/24 08:18 Ipratropium 0.5 Mg/Albuterol Sulfate 2.5 Mg Ampul.Neb 3 Ml INHALATION 3 ml Q6HRT [facility] Administration Aspirin 81 mg 05/01/24 09:00 05/01/24 08:02 Aspirin 81 Mg Enteric Tablet PO 81 mg DAILY [facility] Administration Dextrose 12.5 gm 04/30/24 22:51 Dextrose 50% 25 Gm/50 Ml Syringe IV PUSH PRN PRN Hypoglycemia Protocol Enoxaparin Sodium 40 mg 05/02/24 09:00 Enoxaparin 40 Mg/0.4 Ml Syringe SUB-Q DAILY [facility] Escitalopram Oxalate 10 mg 05/01/24 09:00 05/01/24 08:01 Escitalopram Oxalate 10 Mg Tablet PO 10 mg DAILY [facility]O Administration Furosemide 40 mg 05/01/24 09:00 05/01/24 08:01 Furosemide 40 Mg Tablet PO 40 mg Q12HR [facility] Administration Glucagon 1 mg 04/30/24 22:51 Glucagon For Inj 1 Mg Vial IM PRN PRN Hypoglycemia Protocol Glucose 15 gm 04/30/24 22:51 Glucose Oral Gel 15 Gm Of Glucse In 37.5 Gm Tube PO PRN PRN Hypoglycemia Protocol Guaifenesin 600 mg 05/01/24 09:00 05/01/24 07:59 Guaifenesin 12 Hr 600 Mg Tabcr PO 600 mg Q12HR [facility] Administration Dextrose 1,000 mls @ 100 mls/hr 04/30/24 22:51 Dextrose 5% 1,000 Ml IVPB PRN PRN Hypoglycemia Protocol Insulin Aspart 4 - 8 units 05/01/24 08:00 05/01/24 12:09 Insulin Aspart (*Bkc) 100 Units/Ml SUB-Q 4 units TIDWM COCO Administration Protocol Insulin Aspart 3 units 05/01/24 08:00 05/01/24 12:10 Insulin Aspart (*Bkc) 100 Units/Ml 0.05 units/kg (3 units) 3 units SUB-Q Administration TIDWM [facility] Insulin Glargine 16 units 05/01/24 03:55 05/01/24 04:12 Insulin Glargine (*Bkc) 100 Units/Ml SUB-Q 16 units HS [facility]O Administration Levothyroxine Sodium 112 mcg/ 137 mcg 05/01/24 06:30 05/01/24 06:36 Levothyroxine Sodium 25 mcg PO 137 mcg DAILY@0630 [facility] Administration Lovastatin 20 mg 05/01/24 21:00 Lovastatin 20 Mg Tablet PO HS [facility] Methylprednisolone Sodium Succinate 40 mg 05/01/24 21:00 Methylprednisolone Sod Succ 40 Mg Vial IV PUSH Q12HR [facility] Miscellaneous Information 0 each 05/01/24 00:01 Ramelteon Is Non-Formulary. We Stock Melatonin, Ambien, Benadryl Or Use Pt Own Supply? XX 05/31/24 00:00 CLARIFY [facility] Montelukast Sodium 10 mg 05/01/24 18:00 Montelukast Sodium 10 Mg Tablet PO QPM [facility] Nifedipine 60 mg 05/01/24 09:00 05/01/24 08:01 Nifedipine 30 Mg Tab.Er.24 PO 60 mg DAILY [facility] Administration Non-Formulary Medication 8 mg 05/01/24 21:00 Ramelteon PO 05/31/24 20:59 HS PRN Sleep Pantoprazole Sodium 40 mg 05/01/24 09:00 05/01/24 08:01 Pantoprazole 40 Mg Tablet PO 40 mg BID [facility] Administration Fluticasone/Salmeterol 2 puff 05/01/24 08:00 05/01/24 08:28 Fluticasone/Salmeterol 115-21 Mcg Inhaler 1 Puff INHALATION Not Given Q12HRT [facility] Radiology Results: ITS Impressions Chest X-Ray 04/30/24 20:56 IMPRESSION: No acute cardiopulmonary process. Chest CTA 05/01/24 15:23 IMPRESSION: 1. No pulmonary embolism. 2. Atelectatic changes in the area of the lingula. Pneumonia is less likely. 3. Markedly thickened wall of the stomach. Further evaluation advised. Venous Doppler Study 05/01/24 16:00 IMPRESSION: 1. No deep venous thrombosis in either lower limb. Labs Labs: Laboratory Results - last 24 hr 04/30/24 04/30/24 04/30/24 20:13 20:14 21:30 WBC 13.0 H RBC 4.41 Hgb 11.9 L Hct 40.9 MCV 92.7 MCH 27.0 MCHC 29.1 L RDW 15.1 H Plt Count 300 MPV 10.3 Immature Gran % (Auto) 0.3 Neut % (Auto) 64.8 Lymph % (Auto) 26.1 [place] % (Auto) 4.9 Eos % (Auto) 3.0 Baso % (Auto) 0.9 Lymph # (Auto) 3.39 H [place] # (Auto) 0.6 Eos # (Auto) 0.4 H Baso # (Auto) 0.1 Abs Immat Gran (auto) 0.04 H Absolute Neuts (auto) 8.4 H Absolute Nucleated RBC 0.000 Band Neutrophils % Not Reportable Nucleated RBC % 0.0 Atypical Lymphocytes Present Platelet Estimate Adequate Hypochromasia 1+ Anisocytosis 1+ Schistocytes None seen Puncture Site Right radial ABG pH 7.379 ABG pCO2 49.0 H ABG pO2 68.5 L ABG PO2/FiO2 Ratio 1.14 ABG HCO3 28.3 H ABG O2 Saturation 93.2 L ABG O2 Content 15.7 L ABG Base Excess 2.4 A-a Gradient 305.4 Oxyhemoglobin 91.9 Carboxyhemoglobin 0.6 Methemoglobin 0.3 Reduced Hemoglobin 7.2 H Total Hemoglobin 12.1 O2 Delivery Device High flow therapy O2 Liters/Min 35.0 FiO2 60 Sodium 144 Potassium 4.5 Chloride 103 Carbon Dioxide 33 H Anion Gap 8 BUN 28 H D Creatinine 1.04 H Estim Creat Clear Calc 27 Estimated GFR 51 L Glucose 227 H POC Capillary Glucose Calcium 9.4 Total Bilirubin 0.6 AST 28 ALT 22 Alkaline Phosphatase 82 NT-Pro-B Natriuret Pep 9820 H Total Protein 7.0 Albumin 4.1 Influenza A (RT-PCR) Influenza B (RT-PCR) RSV (RT-PCR) SARS-CoV-2 RNA (RT-PCR) 04/30/24 05/01/24 05/01/24 21:39 00:09 02:49 WBC RBC Hgb Hct MCV MCH MCHC RDW Plt Count MPV Immature Gran % (Auto) Neut % (Auto) Lymph % (Auto) [place] % (Auto) Eos % (Auto) Baso % (Auto) Lymph # (Auto) [place] # (Auto) Eos # (Auto) Baso # (Auto) Abs Immat Gran (auto) Absolute Neuts (auto) Absolute Nucleated RBC Band Neutrophils % Nucleated RBC % Atypical Lymphocytes Platelet Estimate Hypochromasia Anisocytosis Schistocytes Puncture Site ABG pH ABG pCO2 ABG pO2 ABG PO2/FiO2 Ratio ABG HCO3 ABG O2 Saturation ABG O2 Content ABG Base Excess A-a Gradient Oxyhemoglobin Carboxyhemoglobin Methemoglobin Reduced Hemoglobin Total Hemoglobin O2 Delivery Device O2 Liters/Min FiO2 Sodium Potassium Chloride Carbon Dioxide Anion Gap BUN Creatinine Estim Creat Clear Calc Estimated GFR Glucose POC Capillary Glucose 424 H 492 H Calcium Total Bilirubin AST ALT Alkaline Phosphatase NT-Pro-B Natriuret Pep Total Protein Albumin Influenza A (RT-PCR) Negative Influenza B (RT-PCR) Negative RSV (RT-PCR) Negative SARS-CoV-2 RNA (RT-PCR) Negative 05/01/24 05/01/24 05/01/24 05:20 05:42 06:50 WBC 9.1 RBC 3.89 L Hgb 10.5 L Hct 35.5 L MCV 91.3 MCH 27.0 MCHC 29.6 L RDW 14.8 H Plt Count 254 MPV 10.5 H Immature Gran % (Auto) 0.4 Neut % (Auto) 95.0 H Lymph % (Auto) 4.0 L [place] % (Auto) 0.4 L Eos % (Auto) 0.0 Baso % (Auto) 0.2 Lymph # (Auto) 0.36 L [place] # (Auto) 0.0 L Eos # (Auto) 0.0 Baso # (Auto) 0.0 Abs Immat Gran (auto) 0.04 H Absolute Neuts (auto) 8.6 H Absolute Nucleated RBC 0.000 Band Neutrophils % Not Reportable Nucleated RBC % 0.0 Atypical Lymphocytes Platelet Estimate Adequate Hypochromasia 1+ Anisocytosis 1+ Schistocytes None seen Puncture Site ABG pH ABG pCO2 ABG pO2 ABG PO2/FiO2 Ratio ABG HCO3 ABG O2 Saturation ABG O2 Content ABG Base Excess A-a Gradient Oxyhemoglobin Carboxyhemoglobin Methemoglobin Reduced Hemoglobin Total Hemoglobin O2 Delivery Device O2 Liters/Min FiO2 Sodium 138 Potassium 4.2 Chloride 101 Carbon Dioxide 26 Anion Gap 11 BUN 34 H Creatinine 1.12 H Estim Creat Clear Calc 25 Estimated GFR 47 L Glucose 456 H POC Capillary Glucose 444 H 380 H Calcium 9.3 Total Bilirubin AST ALT Alkaline Phosphatase NT-Pro-B Natriuret Pep Total Protein Albumin Influenza A (RT-PCR) Influenza B (RT-PCR) RSV (RT-PCR) SARS-CoV-2 RNA (RT-PCR) 05/01/24 05/01/24 05/01/24 07:52 11:53 14:56 WBC RBC Hgb Hct MCV MCH MCHC RDW Plt Count MPV Immature Gran % (Auto) Neut % (Auto) Lymph % (Auto) [place] % (Auto) Eos % (Auto) Baso % (Auto) Lymph # (Auto) [place] # (Auto) Eos # (Auto) Baso # (Auto) Abs Immat Gran (auto) Absolute Neuts (auto) Absolute Nucleated RBC Band Neutrophils % Nucleated RBC % Atypical Lymphocytes Platelet Estimate Hypochromasia Anisocytosis Schistocytes Puncture Site Right radial ABG pH 7.444 ABG pCO2 40.7 ABG pO2 80.0 ABG PO2/FiO2 Ratio 1.27 ABG HCO3 27.3 H ABG O2 Saturation 96.2 ABG O2 Content 15.9 L ABG Base Excess 3.0 A-a Gradient 324.7 Oxyhemoglobin 95.2 Carboxyhemoglobin Methemoglobin Reduced Hemoglobin Total Hemoglobin 11.8 L O2 Delivery Device High flow therapy O2 Liters/Min 35.0 FiO2 63 Sodium Potassium Chloride Carbon Dioxide Anion Gap BUN Creatinine Estim Creat Clear Calc Estimated GFR Glucose POC Capillary Glucose 362 H 225 H Calcium Total Bilirubin AST ALT Alkaline Phosphatase NT-Pro-B Natriuret Pep Total Protein Albumin Influenza A (RT-PCR) Influenza B (RT-PCR) RSV (RT-PCR) SARS-CoV-2 RNA (RT-PCR) 05/01/24 16:28 WBC RBC Hgb Hct MCV MCH MCHC RDW Plt Count MPV Immature Gran % (Auto) Neut % (Auto) Lymph % (Auto) [place] % (Auto) Eos % (Auto) Baso % (Auto) Lymph # (Auto) [place] # (Auto) Eos # (Auto) Baso # (Auto) Abs Immat Gran (auto) Absolute Neuts (auto) Absolute Nucleated RBC Band Neutrophils % Nucleated RBC % Atypical Lymphocytes Platelet Estimate Hypochromasia Anisocytosis Schistocytes Puncture Site ABG pH ABG pCO2 ABG pO2 ABG PO2/FiO2 Ratio ABG HCO3 ABG O2 Saturation ABG O2 Content ABG Base Excess A-a Gradient Oxyhemoglobin Carboxyhemoglobin Methemoglobin Reduced Hemoglobin Total Hemoglobin O2 Delivery Device O2 Liters/Min FiO2 Sodium Potassium Chloride Carbon Dioxide Anion Gap BUN Creatinine Estim Creat Clear Calc Estimated GFR Glucose POC Capillary Glucose 236 H Calcium Total Bilirubin AST ALT Alkaline Phosphatase NT-Pro-B Natriuret Pep Total Protein Albumin Influenza A (RT-PCR) Influenza B (RT-PCR) RSV (RT-PCR) SARS-CoV-2 RNA (RT-PCR) Quality VTE Prophylaxis VTE prophylaxis: mechanical ordered (SCDs)
[2024-05-01] MEDS: MONTELUKAST SODIUM 10 MG TABLET PO (18:10)
[2024-05-01] MEDS: FLUTICASONE/SALMETEROL 115-21 MCG INHALER 1 PUFF 2 PUFF INHALATION (19:59)
[2024-05-01 20:37] LABS: Glucose Point of Care 173 mg/dl (65-105)
[2024-05-01] MEDS: LOVASTATIN 20 MG TABLET PO (20:53)
--- NOTE | 2024-05-01 20:56 | PHAR ---
Drug Name:?Ramelteon 8MG Color:?Pale yellow Shape:?[place] Imprint:??RT?;?8 Form:?Oral Tablet
[2024-05-01] MEDS: RAMELTEON 8 MG 8 EACH PO (21:12)
[2024-05-02] VITALS (35 sets, daily range): BP systolic 127–143; BP diastolic 42–55; PULSE 62–80; RESP 18–24; TEMP 36.4–37.1; O2SAT 90–100
[2024-05-02] MEDS: IPRATROPIUM 0.5 MG/ALBUTEROL SULFATE 2.5 MG AMPUL.NEB 3 ML INHALATION ×4 (01:28→21:02)
[2024-05-02 04:37] LABS: Hematocrit 35.3 % (37.0-47.0); Hemoglobin 10.4 g/dL (12.0-15.0); Mean Corpuscular HGB Conc 29.5 g/dl (32-36); Mean Corpuscular Hemoglobin 26.6 pg (26-34); Mean Corpuscular Volume 90.3 fl (80-100); Mean Platelet Volume 11.3 fl (7.4-10.4); Platelet Count Result 268 k/mm3 (150-375); Red Blood Count 3.91 M/mm3 (4.2-5.4); Red Cell Distribution Width 15.2 % (11.5-14.5); White Blood Count 15.1 K/mm3 (4.5-10.0)
[2024-05-02 04:51] LABS: Anion Gap 10 mmol/L (4-12); Blood Urea Nitrogen 43 mg/dL (7-17); Calcium 9.2 mg/dL (8.4-10.2); Carbon Dioxide 29 mmol/L (22-30); Chloride 98 mmol/L (98-107); Estimated CRCL calculation 23 ml/min; Estimated Glomerular Filt Rate 42; Glucose 260 mg/dL (65-110); Magnesium 2.1 mg/dL (1.6-2.3); Potassium 4.5 mmol/L (3.4-5.0); Sodium 137 mmol/L (137-145)
[2024-05-02] MEDS: LEVOTHYROXINE SODIUM 112 MCG, LEVOTHYROXINE SODIUM 25 MCG 137 MCG PO (05:37)
[2024-05-02 07:57] LABS: Glucose Point of Care 264 mg/dl (65-105)
[2024-05-02] MEDS: ASPIRIN 81 MG ENTERIC TABLET PO (08:39)
[2024-05-02] MEDS: FUROSEMIDE 40 MG TABLET PO ×2 (08:39→20:30)
[2024-05-02] MEDS: NIFEdipine 30 MG TAB.ER.24 60 MG PO (08:39)
[2024-05-02] MEDS: PANTOPRAZOLE 40 MG TABLET PO ×2 (08:39→18:26)
[2024-05-02] MEDS: guaiFENesin 12 HR 600 MG TABCR PO ×2 (08:39→20:29)
[2024-05-02] MEDS: ESCITALOPRAM OXALATE 10 MG TABLET PO (08:39)
[2024-05-02] MEDS: INSULIN ASPART (*BKC) 100 UNITS/ML SUB-Q ×6 (08:40→17:07)
[2024-05-02] MEDS: methylPREDNISolone SOD SUCC 40 MG VIAL IV PUSH (08:40)
[2024-05-02] MEDS: FLUTICASONE/SALMETEROL 115-21 MCG INHALER 1 PUFF 2 PUFF INHALATION ×2 (08:49→21:02)
[2024-05-02] MEDS: ENOXAPARIN 30 MG/0.3 ML SYRINGE SUB-Q (10:48)
[2024-05-02 11:23] LABS: Glucose Point of Care 330 mg/dl (65-105)
--- NOTE | 2024-05-02 11:41 | PM.PNPUL ---
Progress Note: A&P Assessment and Plan (1) COPD (chronic obstructive pulmonary disease): Qualifiers: COPD type: COPD with acute exacerbation Qualified Code(s): J44.1 - Chronic obstructive pulmonary disease with (acute) exacerbation Code(s): J44.9 - Chronic obstructive pulmonary disease, unspecified Status: Acute Assessment and Plan: This 86-year-old female patient has advanced chronic obstructive pulmonary disease (COPD) attributed to centrilobular emphysema. Imaging reveals signs of pulmonary hypertension, indicated by prominent pulmonary arteries on chest X-ray and a characteristic boot-shaped cardiac silhouette. A recent echocardiogram showed no evidence of pulmonary hypertension. Approximately three years ago, the patient had moderate pulmonary hypertension as evidenced by an echocardiogram. A CT pulmonary angiogram performed yesterday showed no signs of pneumonia or congestive heart failure, though there was a potential area of atelectasis in the left lung. To my review the pulmonary arteries again appeared prominent. The patient's clinical presentation, particularly her elevated oxygen requirements, suggests underlying pulmonary hypertension, as patients with this level of obstructive airway disease/emphysema typically do not require high-flow oxygen to maintain adequate oxyhemoglobin saturation. This disproportionate pulmonary hypertension is likely related to left ventricular diastolic dysfunction and/or sleep-disordered breathing. The patient does not exhibit hypercapnia and thus does not qualify for home ventilatory support. It is probable that the current hospitalization was triggered by slight fluid balance changes, given her congestive heart failure, and the elevated BNP. Recently, her diuretic dosage was reduced. Overall, her respiratory status has stabilized over the past 24 hours, and she is nearly back to her baseline condition. On physical examination, there is no wheezing or lower extremity edema. Today's tests show a rising trend in creatinine levels. Plan: Continue the current FiO2, short-acting bronchodilators, maintenance bronchodilators, deep vein thrombosis (DVT) prophylaxis, and treatment for congestive heart failure. Adjust Lasix dosage in response to the rising creatinine levels. Transition the patient to oral prednisone. Arrange follow-up in the outpatient pulmonary clinic and further evaluation for sleep apnea. Continue monitoring the patient in collaboration with you. Please feel free to reach out if you have any questions or require further assistance. (2) Former smoker: Code(s): Z87.891 - Personal history of nicotine dependence Status: Acute (3) COPD exacerbation: Code(s): J44.1 - Chronic obstructive pulmonary disease with (acute) exacerbation Status: Acute (4) Acute and chronic respiratory failure: Qualifiers: Respiratory failure complication: hypoxia and hypercapnia Qualified Code(s): J96.21 - Acute and chronic respiratory failure with hypoxia; J96.22 - Acute and chronic respiratory failure with hypercapnia Code(s): J96.20 - Acute and chronic respiratory failure, unspecified whether with hypoxia or hypercapnia Status: Acute (5) Diastolic congestive heart failure: Code(s): I50.30 - Unspecified diastolic (congestive) heart failure Status: Acute (6) Coronary artery disease: Code(s): I25.10 - Atherosclerotic heart disease of minto coronary artery without angina pectoris Status: Acute (7) Type 2 diabetes mellitus with hyperglycemia, with long-term current use of insulin: Code(s): E11.65 - Type 2 diabetes mellitus with hyperglycemia; 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 She underwent CT PA yesterday that showed no pulmonary embolism. She still on high FiO2 via high-flow nasal cannula. Review of Systems Review of Systems: All systems reviewed & are unremarkable except as noted in HPI and below (HPI and below) Exam Narrative: GENERAL APPEARANCE: Well developed, well nourished, alert and cooperative, and appears to be in mild respiratory distress while on high-flow nasal cannula SKIN: Inspection of the skin reveals no rashes, ulcerations or petechiae. HEENT: Sclerae anicteric and conjunctivae pink and moist. Extraocular movements were intact and pupils were equal, round, and reactive to light. Moist oral mucosa NECK: Supple. There was no thyroid enlargement, and no tenderness, or masses were felt. CHEST: Normal AP diameter and normal contour without any kyphoscoliosis. LUNGS: Hyperinflated lungs distant breath sounds no wheezing CARDIAC: There was a regular rate and rhythm without any murmurs, gallops, rubs. ABDOMEN: Soft and nontender with normal bowel sounds. There was no organomegaly. LYMPH NODES: No lymphadenopathy was appreciated in the neck. EXTREMITIES: No cyanosis, clubbing or edema. NEUROLOGIC: Alert and oriented x 3. Normal affect. Objective Data Vital Signs Vital Signs: Vital Signs - 24 hr 05/01/24 12:00 05/01/24 12:00 05/01/24 14:00 Temperature 37.0 C Pulse Rate 67 90 89 Respiratory Rate 20 Blood Pressure 148/74 H Pulse Oximetry 98 Oxygen Delivery Oxygen Flow Rate Fraction of Inspired Oxygen 05/01/24 16:00 05/01/24 16:00 05/01/24 18:00 Temperature 36.9 C Pulse Rate 84 99 81 Respiratory Rate 22 H Blood Pressure 129/56 L Pulse Oximetry 96 Oxygen Delivery Oxygen Flow Rate Fraction of Inspired Oxygen 05/01/24 19:53 05/01/24 19:53 05/01/24 19:53 Temperature 36.8 C Pulse Rate 83 79 Respiratory Rate 22 H 22 H Blood Pressure 141/49 H Pulse Oximetry 97 97 Oxygen Delivery High Flow Therapy with Na Oxygen Flow Rate 35 Fraction of Inspired Oxygen 63 05/01/24 20:00 05/01/24 20:00 05/01/24 21:58 Temperature Pulse Rate 78 81 Respiratory Rate 20 Blood Pressure Pulse Oximetry 99 Oxygen Delivery High Flow Therapy with Na Oxygen Flow Rate 35 Fraction of Inspired Oxygen 55 05/01/24 22:00 05/01/24 22:51 05/01/24 23:05 Temperature 36.8 C Pulse Rate 76 75 Respiratory Rate 22 H Blood Pressure 136/56 L Pulse Oximetry 95 92 Oxygen Delivery High Flow Therapy with Na Oxygen Flow Rate 35 Fraction of Inspired Oxygen 55 05/02/24 00:00 05/02/24 01:28 05/02/24 01:28 Temperature Pulse Rate 71 71 Respiratory Rate 20 Blood Pressure Pulse Oximetry 97 Oxygen Delivery High Flow Therapy with Na Oxygen Flow Rate 35 Fraction of Inspired Oxygen 57 05/02/24 01:37 05/02/24 02:00 05/02/24 03:18 Temperature Pulse Rate 74 68 67 Respiratory Rate 20 Blood Pressure Pulse Oximetry 99 Oxygen Delivery High Flow Therapy with Na Oxygen Flow Rate 35 Fraction of Inspired Oxygen 55 05/02/24 03:41 05/02/24 04:00 05/02/24 04:30 Temperature 36.9 C Pulse Rate 66 68 Respiratory Rate 22 H Blood Pressure 136/50 L Pulse Oximetry 100 92 Oxygen Delivery High Flow Therapy with Na Oxygen Flow Rate 35 Fraction of Inspired Oxygen 40 05/02/24 04:57 05/02/24 05:07 05/02/24 05:46 Temperature Pulse Rate Respiratory Rate Blood Pressure Pulse Oximetry 97 94 97 Oxygen Delivery High Flow Therapy with Na High Flow Therapy with Na High Flow Therapy with Na Oxygen Flow Rate 35 35 35 Fraction of Inspired Oxygen 58 40 62 05/02/24 05:47 05/02/24 06:00 05/02/24 07:58 Temperature 36.4 C Pulse Rate 76 65 Respiratory Rate 22 H Blood Pressure 143/55 H Pulse Oximetry 99 99 Oxygen Delivery High Flow Therapy with Na Oxygen Flow Rate 35 Fraction of Inspired Oxygen 55 05/02/24 08:35 05/02/24 08:35 05/02/24 08:49 Temperature Pulse Rate 75 78 74 Respiratory Rate 24 H Blood Pressure Pulse Oximetry 96 91 Oxygen Delivery High Flow Therapy with Na High Flow Therapy with Na Oxygen Flow Rate 35 35 Fraction of Inspired Oxygen 55 50 05/02/24 08:49 05/02/24 09:07 Temperature Pulse Rate 74 73 Respiratory Rate 24 H 20 Blood Pressure Pulse Oximetry Oxygen Delivery Oxygen Flow Rate Fraction of Inspired Oxygen Intake/Output Intake/Output: Intake & Output 04/29/24 04/30/24 05/01/24 05/02/24 23:59 23:59 23:59 23:59 Intake Total 1110 840 Output Total 450 Balance 660 840 Meds/Results Medications: Active Medications Generic Name Dose Route Start Last Admin Trade Name Freq PRN Reason Stop Dose Admin Albuterol/Ipratropium 3 ml 05/01/24 02:00 05/02/24 08:49 Ipratropium 0.5 Mg/Albuterol Sulfate 2.5 Mg Ampul.Neb 3 Ml INHALATION 3 ml Q6HRT COCO Administration Aspirin 81 mg 05/01/24 09:00 05/02/24 08:39 Aspirin 81 Mg Enteric Tablet PO 81 mg DAILY COCO Administration Dextrose 12.5 gm 04/30/24 22:51 Dextrose 50% 25 Gm/50 Ml Syringe IV PUSH PRN PRN Hypoglycemia Protocol Enoxaparin Sodium 30 mg 05/02/24 09:00 05/02/24 10:48 Enoxaparin 30 Mg/0.3 Ml Syringe SUB-Q 30 mg DAILY COCO Administration Escitalopram Oxalate 10 mg 05/01/24 09:00 05/02/24 08:39 Escitalopram Oxalate 10 Mg Tablet PO 10 mg DAILY COCO Administration Furosemide 40 mg 05/01/24 09:00 05/02/24 08:39 Furosemide 40 Mg Tablet PO 40 mg Q12HR COCO Administration Glucagon 1 mg 04/30/24 22:51 Glucagon For Inj 1 Mg Vial IM PRN PRN Hypoglycemia Protocol Glucose 15 gm 04/30/24 22:51 Glucose Oral Gel 15 Gm Of Glucse In 37.5 Gm Tube PO PRN PRN Hypoglycemia Protocol Guaifenesin 600 mg 05/01/24 09:00 05/02/24 08:39 Guaifenesin 12 Hr 600 Mg Tabcr PO 600 mg Q12HR COCO Administration Dextrose 1,000 mls @ 100 mls/hr 04/30/24 22:51 Dextrose 5% 1,000 Ml IVPB PRN PRN Hypoglycemia Protocol Insulin Aspart 4 - 8 units 05/01/24 08:00 05/02/24 08:41 Insulin Aspart (*Bkc) 100 Units/Ml SUB-Q 5 units TIDWM COCO Administration Protocol Insulin Aspart 3 units 05/01/24 08:00 05/02/24 08:40 Insulin Aspart (*Bkc) 100 Units/Ml 0.05 units/kg (3 units) 3 units SUB-Q Administration TIDWM [facility] Insulin Glargine 16 units 05/01/24 03:55 05/01/24 20:55 Insulin Glargine (*Bkc) 100 Units/Ml SUB-Q 16 units HS COCO Administration Levothyroxine Sodium 112 mcg/ 137 mcg 05/01/24 06:30 05/02/24 05:37 Levothyroxine Sodium 25 mcg PO 137 mcg DAILY@0630 COCO Administration Lovastatin 20 mg 05/01/24 21:00 05/01/24 20:53 Lovastatin 20 Mg Tablet PO 20 mg HS COCO Administration Montelukast Sodium 10 mg 05/01/24 18:00 05/01/24 18:10 Montelukast Sodium 10 Mg Tablet PO 10 mg QPM COCO Administration Nifedipine 60 mg 05/01/24 09:00 05/02/24 08:39 Nifedipine 30 Mg Tab.Er.24 PO 60 mg DAILY COCO Administration (Ramelteon 8 Mg 8 mg 05/01/24 21:00 05/01/24 21:12 Tablet) PO 05/31/24 20:59 8 mg HS PRN Administration Sleep Pantoprazole Sodium 40 mg 05/01/24 09:00 05/02/24 08:39 Pantoprazole 40 Mg Tablet PO 40 mg BID COCO Administration Prednisone 20 mg/ Prednisone 30 mg 05/03/24 08:00 10 mg PO DAILY@0800 COCO Fluticasone/Salmeterol 2 puff 05/01/24 08:00 05/02/24 08:49 Fluticasone/Salmeterol 115-21 Mcg Inhaler 1 Puff INHALATION 2 puff Q12HRT COCO Administration Radiology Results: ITS Impressions Chest X-Ray 04/30/24 20:56 IMPRESSION: No acute cardiopulmonary process. Chest CTA 05/01/24 15:23 IMPRESSION: 1. No pulmonary embolism. 2. Atelectatic changes in the area of the lingula. Pneumonia is less likely. 3. Markedly thickened wall of the stomach. Further evaluation advised. Venous Doppler Study 05/01/24 16:00 IMPRESSION: 1. No deep venous thrombosis in either lower limb. Labs Labs: Laboratory Results - last 24 hr 05/01/24 05/01/24 05/01/24 11:53 14:56 16:28 WBC RBC Hgb Hct MCV MCH MCHC RDW Plt Count MPV Puncture Site Right radial ABG pH 7.444 ABG pCO2 40.7 ABG pO2 80.0 ABG PO2/FiO2 Ratio 1.27 ABG HCO3 27.3 H ABG O2 Saturation 96.2 ABG O2 Content 15.9 L ABG Base Excess 3.0 A-a Gradient 324.7 Oxyhemoglobin 95.2 Total Hemoglobin 11.8 L O2 Delivery Device High flow therapy O2 Liters/Min 35.0 FiO2 63 Sodium Potassium Chloride Carbon Dioxide Anion Gap BUN Creatinine Estim Creat Clear Calc Estimated GFR Glucose POC Capillary Glucose 225 H 236 H Calcium Magnesium 05/01/24 05/02/24 05/02/24 20:26 03:48 07:54 WBC 15.1 H RBC 3.91 L Hgb 10.4 L Hct 35.3 L MCV 90.3 MCH 26.6 MCHC 29.5 L RDW 15.2 H Plt Count 268 MPV 11.3 H Puncture Site ABG pH ABG pCO2 ABG pO2 ABG PO2/FiO2 Ratio ABG HCO3 ABG O2 Saturation ABG O2 Content ABG Base Excess A-a Gradient Oxyhemoglobin Total Hemoglobin O2 Delivery Device O2 Liters/Min FiO2 Sodium 137 Potassium 4.5 Chloride 98 Carbon Dioxide 29 Anion Gap 10 BUN 43 H Creatinine 1.23 H Estim Creat Clear Calc 23 Estimated GFR 42 L Glucose 260 H POC Capillary Glucose 173 H 264 H Calcium 9.2 Magnesium 2.1 05/02/24 11:05 WBC RBC Hgb Hct MCV MCH MCHC RDW Plt Count MPV Puncture Site ABG pH ABG pCO2 ABG pO2 ABG PO2/FiO2 Ratio ABG HCO3 ABG O2 Saturation ABG O2 Content ABG Base Excess A-a Gradient Oxyhemoglobin Total Hemoglobin O2 Delivery Device O2 Liters/Min FiO2 Sodium Potassium Chloride Carbon Dioxide Anion Gap BUN Creatinine Estim Creat Clear Calc Estimated GFR Glucose POC Capillary Glucose 330 H Calcium Magnesium
[2024-05-02 15:34] LABS: Glucose Point of Care 204 mg/dl (65-105)
--- NOTE | 2024-05-02 17:41 | PM.IMPN ---
Progress Note: A&P Assessment and Plan (1) Acute and chronic respiratory failure: Qualifiers: Respiratory failure complication: hypoxia and hypercapnia Qualified Code(s): J96.21 - Acute and chronic respiratory failure with hypoxia; J96.22 - Acute and chronic respiratory failure with hypercapnia Code(s): J96.20 - Acute and chronic respiratory failure, unspecified whether with hypoxia or hypercapnia Status: Acute Assessment and Plan: Acute hypoxic respiratory failure on chronic hypoxic hypercapnic respiratory failure (2) COPD exacerbation: Code(s): J44.1 - Chronic obstructive pulmonary disease with (acute) exacerbation Status: Acute (3) Type 2 diabetes mellitus with hyperglycemia, with long-term current use of insulin: Code(s): E11.65 - Type 2 diabetes mellitus with hyperglycemia; Z79.4 - termite control servicer (current) use of insulin Status: Acute (4) Essential hypertension: Code(s): I10 - Essential (primary) hypertension Status: Acute (5) Hypothyroidism: Qualifiers: Hypothyroidism type: unspecified Qualified Code(s): E03.9 - Hypothyroidism, unspecified Code(s): E03.9 - Hypothyroidism, unspecified Status: Acute Plan Patient presents with acute hypoxic respiratory failure on chronic hypoxic hypercapnic respiratory failure due to underlying COPD exacerbation. Patient received Solu-Medrol and [id number] nebs in route to the ER. She received an additional nebulizer treatment on arrival to the ER and was given a dose of Levaquin. Chest x-ray to with performed demonstrated no acute cardiopulmonary process. The patient is requiring increasing oxygen requirements in is been placed on Airvo which she is tolerating well. She will be admitted to the intermediate unit. She was placed on scheduled Solu-Medrol 40 IV q.6 hours and scheduled nebulizer treatments. Will continue the patient's home long-acting inhalers. Will wean oxygen as tolerated. Patient does not have any clear evidence of underlying acute infectious process with negative viral panel and negative chest x-ray however she does have some leukocytosis. This could be stress reaction but given degree of respiratory failure will cover empirically for possible underlying infectious process. Will repeat CBC in a.m. Patient does have elevated BNP but does not appear clinically volume overloaded and CHF exacerbation seems less likely. Patient has type 2 diabetes mellitus on chronic insulin therapy. She does have moderate amount of hyperglycemia with glucoses in the 200s. Will resume the patient's home Lantus and will place patient on high-dose sliding scale insulin given that she is going to be steroid therapy. Hypoglycemia protocol has been ordered as needed. Lantus The patient's blood pressures are moderately elevated above her baseline but still within goal range. Will resume home antihypertensives. Will resume patient's home thyroid medications. Patient has chronic kidney disease but creatinine is actually better than baseline. Will avoid nephrotoxic medications. Will repeat electrolyte panel in a.m.. Patient has been admitted as observation status. patient with end stage COPD presented with shortness of breath 2/2 exacerbation of COPD, patient is being treated with methylprednisone, duo neb, patient stats she is feeling little better compared to when she arrived, discuss with patient nurse, patient is on high flow oxygen, patient is seen by cupola charger further recommendations to follow. Subjective Date/time seen: 05/02/24 17:41 Interval history: patient with end stage COPD presented with shortness of breath 2/2 exacerbation of COPD, patient is being treated with methylprednisone, duo neb, patient stats she is feeling little better compared to when she arrived, discuss with patient nurse, patient is on high flow oxygen, patient is seen by cupola charger further recommendations to follow. Review of Systems Review of Systems: 12 systems were reviewed with pertinent positives and negatives per HPI. Except as documented in the HPI, all other systems were reviewed and are negative. Exam Narrative: Patient is comfortable, NAD HEENT: eyes are clear and none icteric LUNGS: Bilateral poor air entry with rhonchi and wheezing HEART: RR S1S2 ABD: BS+, Soft and nontender Lower extremities: no edema SKIN: nonjaundiced Neuro: grossly intact. Objective Data Vital Signs Vital Signs: Vital Signs - 24 hr 05/01/24 18:00 05/01/24 19:53 05/01/24 19:53 Temperature 36.8 C Pulse Rate 81 83 Respiratory Rate 22 H Blood Pressure 141/49 H Pulse Oximetry 97 97 Oxygen Delivery High Flow Therapy with Na Oxygen Flow Rate 35 Fraction of Inspired Oxygen 63 05/01/24 19:53 05/01/24 20:00 05/01/24 20:00 Temperature Pulse Rate 79 78 Respiratory Rate 22 H Blood Pressure Pulse Oximetry 99 Oxygen Delivery High Flow Therapy with Na Oxygen Flow Rate 35 Fraction of Inspired Oxygen 55 05/01/24 21:58 05/01/24 22:00 05/01/24 22:51 Temperature 36.8 C Pulse Rate 81 76 75 Respiratory Rate 20 22 H Blood Pressure 136/56 L Pulse Oximetry 95 Oxygen Delivery Oxygen Flow Rate Fraction of Inspired Oxygen 05/01/24 23:05 05/02/24 00:00 05/02/24 01:28 Temperature Pulse Rate 71 Respiratory Rate Blood Pressure Pulse Oximetry 92 97 Oxygen Delivery High Flow Therapy with Na High Flow Therapy with Na Oxygen Flow Rate 35 35 Fraction of Inspired Oxygen 55 57 05/02/24 01:28 05/02/24 01:37 05/02/24 02:00 Temperature Pulse Rate 71 74 68 Respiratory Rate 20 20 Blood Pressure Pulse Oximetry Oxygen Delivery Oxygen Flow Rate Fraction of Inspired Oxygen 05/02/24 03:18 05/02/24 03:41 05/02/24 04:00 Temperature 36.9 C Pulse Rate 67 66 68 Respiratory Rate 22 H Blood Pressure 136/50 L Pulse Oximetry 99 100 Oxygen Delivery High Flow Therapy with Na Oxygen Flow Rate 35 Fraction of Inspired Oxygen 55 05/02/24 04:30 05/02/24 04:57 05/02/24 05:07 Temperature Pulse Rate Respiratory Rate Blood Pressure Pulse Oximetry 92 97 94 Oxygen Delivery High Flow Therapy with Na High Flow Therapy with Na High Flow Therapy with Na Oxygen Flow Rate 35 35 35 Fraction of Inspired Oxygen 40 58 40 05/02/24 05:46 05/02/24 05:47 05/02/24 06:00 Temperature Pulse Rate 76 Respiratory Rate Blood Pressure Pulse Oximetry 97 99 Oxygen Delivery High Flow Therapy with Na High Flow Therapy with Na Oxygen Flow Rate 35 35 Fraction of Inspired Oxygen 62 55 05/02/24 07:58 05/02/24 08:35 05/02/24 08:35 Temperature 36.4 C Pulse Rate 65 75 78 Respiratory Rate 22 H Blood Pressure 143/55 H Pulse Oximetry 99 96 Oxygen Delivery High Flow Therapy with Na Oxygen Flow Rate 35 Fraction of Inspired Oxygen 55 05/02/24 08:49 05/02/24 08:49 05/02/24 09:07 Temperature Pulse Rate 74 74 73 Respiratory Rate 24 H 24 H 20 Blood Pressure Pulse Oximetry 91 Oxygen Delivery High Flow Therapy with Na Oxygen Flow Rate 35 Fraction of Inspired Oxygen 50 05/02/24 10:00 05/02/24 11:46 05/02/24 12:00 Temperature 36.7 C Pulse Rate 80 66 Respiratory Rate 20 Blood Pressure 134/44 L Pulse Oximetry 100 90 Oxygen Delivery High Flow Nasal Cannula Oxygen Flow Rate 8 Fraction of Inspired Oxygen 05/02/24 12:00 05/02/24 14:29 05/02/24 14:29 Temperature Pulse Rate 62 66 66 Respiratory Rate 20 20 Blood Pressure Pulse Oximetry 98 Oxygen Delivery High Flow Nasal Cannula Oxygen Flow Rate 9 Fraction of Inspired Oxygen 05/02/24 14:38 05/02/24 14:46 05/02/24 15:38 Temperature 36.6 C Pulse Rate 72 71 68 Respiratory Rate 20 20 Blood Pressure 127/51 L Pulse Oximetry 92 98 Oxygen Delivery High Flow Nasal Cannula Oxygen Flow Rate 7 Fraction of Inspired Oxygen 05/02/24 16:00 05/02/24 16:00 Temperature Pulse Rate 68 68 Respiratory Rate 20 Blood Pressure Pulse Oximetry 98 Oxygen Delivery High Flow Nasal Cannula Oxygen Flow Rate 9 Fraction of Inspired Oxygen 50 Intake/Output Intake/Output: Intake & Output 04/29/24 04/30/24 05/01/24 05/02/24 23:59 23:59 23:59 23:59 Intake Total 1110 1820 Output Total 450 700 Balance 660 1120 Meds/Results Medications: Active Medications Generic Name Dose Route Start Last Admin Trade Name Freq PRN Reason Stop Dose Admin Albuterol/Ipratropium 3 ml 05/01/24 02:00 05/02/24 14:28 Ipratropium 0.5 Mg/Albuterol Sulfate 2.5 Mg Ampul.Neb 3 Ml INHALATION 3 ml Q6HRT COCO Administration Aspirin 81 mg 05/01/24 09:00 05/02/24 08:39 Aspirin 81 Mg Enteric Tablet PO 81 mg DAILY COCO Administration Dextrose 12.5 gm 04/30/24 22:51 Dextrose 50% 25 Gm/50 Ml Syringe IV PUSH PRN PRN Hypoglycemia Protocol Enoxaparin Sodium 30 mg 05/02/24 09:00 05/02/24 10:48 Enoxaparin 30 Mg/0.3 Ml Syringe SUB-Q 30 mg DAILY COCO Administration Escitalopram Oxalate 10 mg 05/01/24 09:00 05/02/24 08:39 Escitalopram Oxalate 10 Mg Tablet PO 10 mg DAILY COCO Administration Furosemide 40 mg 05/01/24 09:00 05/02/24 08:39 Furosemide 40 Mg Tablet PO 40 mg Q12HR COCO Administration Glucagon 1 mg 04/30/24 22:51 Glucagon For Inj 1 Mg Vial IM PRN PRN Hypoglycemia Protocol Glucose 15 gm 04/30/24 22:51 Glucose Oral Gel 15 Gm Of Glucse In 37.5 Gm Tube PO PRN PRN Hypoglycemia Protocol Guaifenesin 600 mg 05/01/24 09:00 05/02/24 08:39 Guaifenesin 12 Hr 600 Mg Tabcr PO 600 mg Q12HR COCO Administration Dextrose 1,000 mls @ 100 mls/hr 04/30/24 22:51 Dextrose 5% 1,000 Ml IVPB PRN PRN Hypoglycemia Protocol Insulin Aspart 4 - 8 units 05/01/24 08:00 05/02/24 17:06 Insulin Aspart (*Bkc) 100 Units/Ml SUB-Q 4 units TIDWM COCO Administration Protocol Insulin Aspart 3 units 05/01/24 08:00 05/02/24 17:07 Insulin Aspart (*Bkc) 100 Units/Ml 0.05 units/kg (3 units) 3 units SUB-Q Administration TIDWM COCO Insulin Glargine 16 units 05/01/24 03:55 05/01/24 20:55 Insulin Glargine (*Bkc) 100 Units/Ml SUB-Q 16 units HS COCO Administration Levothyroxine Sodium 112 mcg/ 137 mcg 05/01/24 06:30 05/02/24 05:37 Levothyroxine Sodium 25 mcg PO 137 mcg DAILY@0630 COCO Administration Lovastatin 20 mg 05/01/24 21:00 05/01/24 20:53 Lovastatin 20 Mg Tablet PO 20 mg HS COCO Administration Montelukast Sodium 10 mg 05/01/24 18:00 05/01/24 18:10 Montelukast Sodium 10 Mg Tablet PO 10 mg QPM COCO Administration Nifedipine 60 mg 05/01/24 09:00 05/02/24 08:39 Nifedipine 30 Mg Tab.Er.24 PO 60 mg DAILY COCO Administration (Ramelteon 8 Mg 8 mg 05/01/24 21:00 05/01/24 21:12 Tablet) PO 05/31/24 20:59 8 mg HS PRN Administration Sleep Pantoprazole Sodium 40 mg 05/01/24 09:00 05/02/24 08:39 Pantoprazole 40 Mg Tablet PO 40 mg BID COCO Administration Prednisone 20 mg/ Prednisone 30 mg 05/03/24 08:00 10 mg PO DAILY@0800 COCO Fluticasone/Salmeterol 2 puff 05/01/24 08:00 05/02/24 08:49 Fluticasone/Salmeterol 115-21 Mcg Inhaler 1 Puff INHALATION 2 puff Q12HRT COCO Administration Radiology Results: ITS Impressions Chest X-Ray 04/30/24 20:56 IMPRESSION: No acute cardiopulmonary process. Chest CTA 05/01/24 15:23 IMPRESSION: 1. No pulmonary embolism. 2. Atelectatic changes in the area of the lingula. Pneumonia is less likely. 3. Markedly thickened wall of the stomach. Further evaluation advised. Venous Doppler Study 05/01/24 16:00 IMPRESSION: 1. No deep venous thrombosis in either lower limb. Labs Labs: Laboratory Results - last 24 hr 05/01/24 05/02/24 05/02/24 20:26 03:48 07:54 WBC 15.1 H RBC 3.91 L Hgb 10.4 L Hct 35.3 L MCV 90.3 MCH 26.6 MCHC 29.5 L RDW 15.2 H Plt Count 268 MPV 11.3 H Sodium 137 Potassium 4.5 Chloride 98 Carbon Dioxide 29 Anion Gap 10 BUN 43 H Creatinine 1.23 H Estim Creat Clear Calc 23 Estimated GFR 42 L Glucose 260 H POC Capillary Glucose 173 H 264 H Calcium 9.2 Magnesium 2.1 05/02/24 05/02/24 11:05 15:25 WBC RBC Hgb Hct MCV MCH MCHC RDW Plt Count MPV Sodium Potassium Chloride Carbon Dioxide Anion Gap BUN Creatinine Estim Creat Clear Calc Estimated GFR Glucose POC Capillary Glucose 330 H 204 H Calcium Magnesium Quality VTE Prophylaxis VTE prophylaxis: mechanical ordered (SCDs)
[2024-05-02] MEDS: MONTELUKAST SODIUM 10 MG TABLET PO (18:26)
[2024-05-02 20:15] LABS: Glucose Point of Care 244 mg/dl (65-105)
[2024-05-02] MEDS: LOVASTATIN 20 MG TABLET PO (20:30)
[2024-05-02] MEDS: INSULIN GLARGINE (*BKC) 100 UNITS/ML 16 UNITS SUB-Q (20:30)
[2024-05-02] MEDS: RAMELTEON 8 MG 8 EACH PO (20:49)
[2024-05-03] VITALS (21 sets, daily range): BP systolic 115–147; BP diastolic 48–61; PULSE 53–102; RESP 19–22; TEMP 36.5–36.7; O2SAT 79–100
--- NOTE | 2024-05-03 04:25 | PCRCNOTE ---
Patient did not receive 0200 updraft treatment due to being on an overnight oximetry study. Treatment to resume at 0800
[2024-05-03] MEDS: LEVOTHYROXINE SODIUM 112 MCG, LEVOTHYROXINE SODIUM 25 MCG 137 MCG PO (06:22)
[2024-05-03 06:59] LABS: Hematocrit 36.4 % (37.0-47.0); Hemoglobin 10.8 g/dL (12.0-15.0); Mean Corpuscular HGB Conc 29.7 g/dl (32-36); Mean Corpuscular Hemoglobin 26.9 pg (26-34); Mean Corpuscular Volume 90.8 fl (80-100); Mean Platelet Volume 10.4 fl (7.4-10.4); Platelet Count Result 273 k/mm3 (150-375); Red Blood Count 4.01 M/mm3 (4.2-5.4); Red Cell Distribution Width 15.1 % (11.5-14.5); White Blood Count 11.9 K/mm3 (4.5-10.0)
[2024-05-03 07:10] LABS: Anion Gap 5 mmol/L (4-12); Blood Urea Nitrogen 53 mg/dL (7-17); Calcium 8.9 mg/dL (8.4-10.2); Carbon Dioxide 36 mmol/L (22-30); Chloride 99 mmol/L (98-107); Estimated CRCL calculation 21 ml/min; Estimated Glomerular Filt Rate 39; Glucose 113 mg/dL (65-110); Magnesium 2.2 mg/dL (1.6-2.3); Potassium 3.6 mmol/L (3.4-5.0); Sodium 140 mmol/L (137-145)
[2024-05-03 07:38] LABS: Glucose Point of Care 103 mg/dl (65-105)
[2024-05-03] MEDS: INSULIN ASPART (*BKC) 100 UNITS/ML SUB-Q ×3 (08:15→12:35)
[2024-05-03] MEDS: NIFEdipine 30 MG TAB.ER.24 60 MG PO (08:16)
[2024-05-03] MEDS: ENOXAPARIN 30 MG/0.3 ML SYRINGE SUB-Q (08:16)
[2024-05-03] MEDS: predniSONE 20 MG, predniSONE 10 MG 30 MG PO (08:16)
[2024-05-03] MEDS: guaiFENesin 12 HR 600 MG TABCR PO (08:17)
[2024-05-03] MEDS: FUROSEMIDE 40 MG TABLET PO (08:17)
[2024-05-03] MEDS: ESCITALOPRAM OXALATE 10 MG TABLET PO (08:17)
[2024-05-03] MEDS: ASPIRIN 81 MG ENTERIC TABLET PO (08:17)
[2024-05-03] MEDS: PANTOPRAZOLE 40 MG TABLET PO (08:17)
[2024-05-03] MEDS: IPRATROPIUM 0.5 MG/ALBUTEROL SULFATE 2.5 MG AMPUL.NEB 3 ML INHALATION ×2 (08:41→13:34)
[2024-05-03] MEDS: FLUTICASONE/SALMETEROL 115-21 MCG INHALER 1 PUFF 2 PUFF INHALATION (08:41)
--- NOTE | 2024-05-03 09:21 | PM.PNPUL ---
Progress Note: A&P Assessment and Plan (1) COPD (chronic obstructive pulmonary disease): Qualifiers: COPD type: COPD with acute exacerbation Qualified Code(s): J44.1 - Chronic obstructive pulmonary disease with (acute) exacerbation Code(s): J44.9 - Chronic obstructive pulmonary disease, unspecified Status: Acute Assessment and Plan: This 86-year-old female patient has advanced chronic obstructive pulmonary disease (COPD) attributed to centrilobular emphysema. Imaging reveals signs of pulmonary hypertension, indicated by prominent pulmonary arteries on chest X-ray and a characteristic boot-shaped cardiac silhouette. A recent echocardiogram showed no evidence of pulmonary hypertension. Approximately three years ago, the patient had moderate pulmonary hypertension as evidenced by an echocardiogram. A CT pulmonary angiogram performed yesterday showed no signs of pneumonia or congestive heart failure, though there was a potential area of atelectasis in the left lung. To my review the pulmonary arteries again appeared prominent. The patient's clinical presentation, particularly her elevated oxygen requirements, suggests underlying pulmonary hypertension, as patients with this level of obstructive airway disease/emphysema typically do not require high-flow oxygen to maintain adequate oxyhemoglobin saturation. This disproportionate pulmonary hypertension is likely related to left ventricular diastolic dysfunction and/or sleep-disordered breathing. The patient does not exhibit hypercapnia and thus does not qualify for home ventilatory support. It is probable that the current hospitalization was triggered by slight fluid balance changes, given her congestive heart failure, and the elevated BNP. Recently, her diuretic dosage was reduced. The ApneaLink study conducted at 6 liters/minute of oxygen showed no significant oxyhemoglobin desaturation, suggesting that sleep-disordered breathing is less likely to be a contributing factor to her pulmonary hypertension. As previously noted, the chest CT reveals advanced centrilobular emphysema and prominent pulmonary arteries, with no evidence of interstitial lung disease that would necessitate high oxygen flow to maintain adequate saturation. The patient typically experiences desaturation with any activity at home, consistent with advanced COPD complicated by pulmonary hypertension. Over the past 24 hours, her respiratory status has stabilized, and she is nearly back to her baseline condition. On physical examination, there is no wheezing or lower extremity edema. However, today's tests indicate a rising trend in creatinine levels. Plan: The patient is ready for discharge from a respiratory standpoint. She will continue with the current oxygen flow of 6 liters/minute at night, with increases to 7-8 liters/minute during activities. She will also continue taking prednisone 20 mg daily for the next 3 days, along with her maintenance and short-acting bronchodilators as previously prescribed. A follow-up appointment with her multiple slide operator, Graham Ramos, is recommended in approximately 3-4 weeks. I will sign off on this case. Please feel free to contact me if you have any questions. (2) Former smoker: Code(s): Z87.891 - Personal history of nicotine dependence Status: Acute (3) COPD exacerbation: Code(s): J44.1 - Chronic obstructive pulmonary disease with (acute) exacerbation Status: Acute (4) Acute and chronic respiratory failure: Qualifiers: Respiratory failure complication: hypoxia and hypercapnia Qualified Code(s): J96.21 - Acute and chronic respiratory failure with hypoxia; J96.22 - Acute and chronic respiratory failure with hypercapnia Code(s): J96.20 - Acute and chronic respiratory failure, unspecified whether with hypoxia or hypercapnia Status: Acute (5) Diastolic congestive heart failure: Code(s): I50.30 - Unspecified diastolic (congestive) heart failure Status: Acute (6) Coronary artery disease: Code(s): I25.10 - Atherosclerotic heart disease of [place] coronary artery without angina pectoris Status: Acute (7) Type 2 diabetes mellitus with hyperglycemia, with long-term current use of insulin: Code(s): E11.65 - Type 2 diabetes mellitus with hyperglycemia; Z79.4 - intermediate designer (current) use of insulin Status: Acute (8) Chronic kidney disease: Code(s): N18.9 - Chronic kidney disease, unspecified Status: Acute Subjective Date/time seen: 05/03/24 09:21 Interval history: Patient has no new respiratory symptoms overall doing better. Underwent ApneaLink study on 6 liters/minute last night. Less shortness of breath while on chest oxygen. No lower extremity edema. Spends most of the day in bed. Review of Systems Review of Systems: All systems reviewed & are unremarkable except as noted in HPI and below (HPI and below) Exam Narrative: GENERAL APPEARANCE: Well developed, well nourished, alert and cooperative, and appears to be in mild respiratory distress while on high-flow nasal cannula SKIN: Inspection of the skin reveals no rashes, ulcerations or petechiae. HEENT: Sclerae anicteric and conjunctivae pink and moist. Extraocular movements were intact and pupils were equal, round, and reactive to light. Moist oral mucosa NECK: Supple. There was no thyroid enlargement, and no tenderness, or masses were felt. CHEST: Normal AP diameter and normal contour without any kyphoscoliosis. LUNGS: Hyperinflated lungs distant breath sounds no wheezing CARDIAC: There was a regular rate and rhythm without any murmurs, gallops, rubs. ABDOMEN: Soft and nontender with normal bowel sounds. There was no organomegaly. LYMPH NODES: No lymphadenopathy was appreciated in the neck. EXTREMITIES: No cyanosis, clubbing or edema. NEUROLOGIC: Alert and oriented x 3. Normal affect. Objective Data Vital Signs Vital Signs: Vital Signs - 24 hr 05/02/24 10:00 05/02/24 11:46 05/02/24 12:00 Temperature 36.7 C Pulse Rate 80 66 Respiratory Rate 20 Blood Pressure 134/44 L Pulse Oximetry 100 90 Oxygen Delivery High Flow Nasal Cannula Oxygen Flow Rate 8 Fraction of Inspired Oxygen 05/02/24 12:00 05/02/24 14:29 05/02/24 14:29 Temperature Pulse Rate 62 66 66 Respiratory Rate 20 20 Blood Pressure Pulse Oximetry 98 Oxygen Delivery High Flow Nasal Cannula Oxygen Flow Rate 9 Fraction of Inspired Oxygen 05/02/24 14:38 05/02/24 14:46 05/02/24 15:38 Temperature 36.6 C Pulse Rate 72 71 68 Respiratory Rate 20 20 Blood Pressure 127/51 L Pulse Oximetry 92 98 Oxygen Delivery High Flow Nasal Cannula Oxygen Flow Rate 7 Fraction of Inspired Oxygen 05/02/24 16:00 05/02/24 16:00 05/02/24 18:00 Temperature Pulse Rate 68 68 68 Respiratory Rate 20 Blood Pressure Pulse Oximetry 98 Oxygen Delivery High Flow Nasal Cannula Oxygen Flow Rate 9 Fraction of Inspired Oxygen 50 05/02/24 19:40 05/02/24 20:00 05/02/24 20:00 Temperature 36.7 C Pulse Rate 71 71 Respiratory Rate 20 Blood Pressure 129/42 L Pulse Oximetry 94 95 Oxygen Delivery High Flow Nasal Cannula Oxygen Flow Rate 7 Fraction of Inspired Oxygen 05/02/24 21:02 05/02/24 21:03 05/02/24 21:21 Temperature Pulse Rate 68 68 66 Respiratory Rate 20 20 Blood Pressure Pulse Oximetry 95 Oxygen Delivery High Flow Nasal Cannula Oxygen Flow Rate 7 Fraction of Inspired Oxygen 05/02/24 22:00 05/02/24 23:03 05/02/24 23:23 Temperature Pulse Rate 67 68 Respiratory Rate 18 Blood Pressure Pulse Oximetry 91 95 Oxygen Delivery High Flow Nasal Cannula High Flow Nasal Cannula Oxygen Flow Rate 6 6 Fraction of Inspired Oxygen 05/02/24 23:35 05/03/24 00:00 05/03/24 02:00 Temperature 37.1 C Pulse Rate 68 70 58 L Respiratory Rate 18 Blood Pressure 131/42 L Pulse Oximetry 95 Oxygen Delivery Oxygen Flow Rate Fraction of Inspired Oxygen 05/03/24 03:13 05/03/24 04:00 05/03/24 04:02 Temperature 36.7 C Pulse Rate 53 L 53 L Respiratory Rate 19 Blood Pressure 115/61 Pulse Oximetry 100 99 Oxygen Delivery High Flow Nasal Cannula Oxygen Flow Rate 6 Fraction of Inspired Oxygen 05/03/24 06:00 05/03/24 07:56 05/03/24 08:43 Temperature 36.5 C Pulse Rate 69 59 L Respiratory Rate 22 H Blood Pressure 147/50 H Pulse Oximetry 97 99 Oxygen Delivery High Flow Nasal Cannula Oxygen Flow Rate 8 Fraction of Inspired Oxygen 05/03/24 08:43 05/03/24 08:55 Temperature Pulse Rate 68 66 Respiratory Rate 20 20 Blood Pressure Pulse Oximetry Oxygen Delivery Oxygen Flow Rate Fraction of Inspired Oxygen Intake/Output Intake/Output: Intake & Output 04/30/24 05/01/24 05/02/24 05/03/24 23:59 23:59 23:59 23:59 Intake Total 1110 1820 Output Total 450 700 500 Balance 660 1120 -500 Meds/Results Medications: Active Medications Generic Name Dose Route Start Last Admin Trade Name Freq PRN Reason Stop Dose Admin Albuterol/Ipratropium 3 ml 05/01/24 02:00 05/03/24 08:41 Ipratropium 0.5 Mg/Albuterol Sulfate 2.5 Mg Ampul.Neb 3 Ml INHALATION 3 ml Q6HRT COCO Administration Aspirin 81 mg 05/01/24 09:00 05/03/24 08:17 Aspirin 81 Mg Enteric Tablet PO 81 mg DAILY COCO Administration Dextrose 12.5 gm 04/30/24 22:51 Dextrose 50% 25 Gm/50 Ml Syringe IV PUSH PRN PRN Hypoglycemia Protocol Enoxaparin Sodium 30 mg 05/02/24 09:00 05/03/24 08:16 Enoxaparin 30 Mg/0.3 Ml Syringe SUB-Q 30 mg DAILY COCO Administration Escitalopram Oxalate 10 mg 05/01/24 09:00 05/03/24 08:17 Escitalopram Oxalate 10 Mg Tablet PO 10 mg DAILY COCO Administration Furosemide 40 mg 05/01/24 09:00 05/03/24 08:17 Furosemide 40 Mg Tablet PO 40 mg Q12HR COCO Administration Glucagon 1 mg 04/30/24 22:51 Glucagon For Inj 1 Mg Vial IM PRN PRN Hypoglycemia Protocol Glucose 15 gm 04/30/24 22:51 Glucose Oral Gel 15 Gm Of Glucse In 37.5 Gm Tube PO PRN PRN Hypoglycemia Protocol Guaifenesin 600 mg 05/01/24 09:00 05/03/24 08:17 Guaifenesin 12 Hr 600 Mg Tabcr PO 600 mg Q12HR COCO Administration Dextrose 1,000 mls @ 100 mls/hr 04/30/24 22:51 Dextrose 5% 1,000 Ml IVPB PRN PRN Hypoglycemia Protocol Insulin Aspart 4 - 8 units 05/01/24 08:00 05/03/24 08:12 Insulin Aspart (*Bkc) 100 Units/Ml SUB-Q Not Given TIDWM [facility] Protocol Insulin Aspart 3 units 05/01/24 08:00 05/03/24 08:15 Insulin Aspart (*Bkc) 100 Units/Ml 0.05 units/kg (3 units) 3 units SUB-Q Administration TIDWM [facility] Insulin Glargine 16 units 05/01/24 03:55 05/02/24 20:30 Insulin Glargine (*Bkc) 100 Units/Ml SUB-Q 1 units HS COCO Administration Levothyroxine Sodium 112 mcg/ 137 mcg 05/01/24 06:30 05/03/24 06:22 Levothyroxine Sodium 25 mcg PO 137 mcg DAILY@0630 COCO Administration Lovastatin 20 mg 05/01/24 21:00 05/02/24 20:30 Lovastatin 20 Mg Tablet PO 20 mg HS COCO Administration Montelukast Sodium 10 mg 05/01/24 18:00 05/02/24 18:26 Montelukast Sodium 10 Mg Tablet PO 10 mg QPM COCO Administration Nifedipine 60 mg 05/01/24 09:00 05/03/24 08:16 Nifedipine 30 Mg Tab.Er.24 PO 60 mg DAILY COCO Administration (Ramelteon 8 Mg 8 mg 05/01/24 21:00 05/02/24 20:49 Tablet) PO 05/31/24 20:59 8 mg HS PRN Administration Sleep Pantoprazole Sodium 40 mg 05/01/24 09:00 05/03/24 08:17 Pantoprazole 40 Mg Tablet PO 40 mg BID COCO Administration Prednisone 20 mg/ Prednisone 30 mg 05/03/24 08:00 05/03/24 08:16 10 mg PO 30 mg DAILY@0800 COCO Administration Fluticasone/Salmeterol 2 puff 05/01/24 08:00 05/03/24 08:41 Fluticasone/Salmeterol 115-21 Mcg Inhaler 1 Puff INHALATION 2 puff Q12HRT COCO Administration Radiology Results: ITS Impressions Chest X-Ray 04/30/24 20:56 IMPRESSION: No acute cardiopulmonary process. Chest CTA 05/01/24 15:23 IMPRESSION: 1. No pulmonary embolism. 2. Atelectatic changes in the area of the lingula. Pneumonia is less likely. 3. Markedly thickened wall of the stomach. Further evaluation advised. Venous Doppler Study 05/01/24 16:00 IMPRESSION: 1. No deep venous thrombosis in either lower limb. Labs Labs: Laboratory Results - last 24 hr 05/02/24 05/02/24 05/02/24 11:05 15:25 20:12 WBC RBC Hgb Hct MCV MCH MCHC RDW Plt Count MPV Sodium Potassium Chloride Carbon Dioxide Anion Gap BUN Creatinine Estim Creat Clear Calc Estimated GFR Glucose POC Capillary Glucose 330 H 204 H 244 H Calcium Magnesium 05/03/24 05/03/24 06:41 07:36 WBC 11.9 H RBC 4.01 L Hgb 10.8 L Hct 36.4 L MCV 90.8 MCH 26.9 MCHC 29.7 L RDW 15.1 H Plt Count 273 MPV 10.4 Sodium 140 Potassium 3.6 Chloride 99 Carbon Dioxide 36 H Anion Gap 5 BUN 53 H D Creatinine 1.30 H Estim Creat Clear Calc 21 Estimated GFR 39 L Glucose 113 H POC Capillary Glucose 103 Calcium 8.9 Magnesium 2.2
[2024-05-03 11:16] LABS: Glucose Point of Care 221 mg/dl (65-105)
--- NOTE | 2024-05-03 14:25 | HOMEO2EVAL ---
Evaluation was performed at [facility] Home Oxygen Evaluation RC: Home Oxygen (O2) Evaluation Start: 05/03/24 12:18 Freq: ONCE Status: Active Protocol: RPE Activity Type Activity Date Activity User E-sign Co-sign Detail Recorded Client Recorded Date Recorded By Document 05/03/24 13:30 [email or web address] 05/03/24 14:24 DJO Document 05/03/24 13:35 [email or web address] 05/03/24 14:24 DJO Document 05/03/24 13:40 [email or web address] [email or web address] 05/03/24 14:24 DJO Document 05/03/24 13:45 [email or web address] 05/03/24 14:24 DJO Document 05/03/24 13:50 [email or web address] 05/03/24 14:24 DJO Document 05/03/24 14:10 [email or web address] [email or web address] 05/03/24 14:24 DJO 05/03/24 05/03/24 05/03/24 13:30 13:35 13:40 Home O2 Evaluation [Oxygen] -Test Phase Resting Exercise Exercise -Oxygen Delivery Nasal Cannula Nasal Cannula Nasal Cannula -Oxygen Flow Rate (L/min) 6 6 7 [Pulse Oximetry] -Pulse Oximetry (90-100 %) 90 79 L 84 L [Pulse Rate] -Pulse Rate (60-100 beats/min) 70 98 98 [Evaluation] -Activity Tolerance [Charges] -Evaluation Charges O2 Evaluation by Pulmonary 05/03/24 05/03/24 05/03/24 13:45 13:50 14:10 Home O2 Evaluation [Oxygen] -Test Phase Exercise Exercise Resting -Oxygen Delivery Nasal Cannula Nasal Cannula Nasal Cannula -Oxygen Flow Rate (L/min) 8 9 6 [Pulse Oximetry] -Pulse Oximetry (90-100 %) 87 L 90 90 [Pulse Rate] -Pulse Rate (60-100 beats/min) 100 102 H 79 [Evaluation] -Activity Tolerance Poor [Charges] -Evaluation Charges
--- NOTE | 2024-05-03 14:26 | PCRTNOTE ---
HOME O2 EVAL COMPLETE, 6L AT REST AND 9L WITH ACTIVITY
--- NOTE | 2024-05-03 14:58 | PCPTNOTE ---
Attempted to see for PT evaluation, pt refused evalaution, states she is going home today so therapy seems pointless. Will d/c orders.
--- NOTE | 2024-05-03 15:26 | P.DS_ITS ---
DS: Summary Time Spent with Patient Time attestation: Total time spent providing and/or coordinating discharge services: DS: Data Data Completed and Pending Labs on day of discharge: Labs from last 24 hours 05/03/24 05/03/24 05/03/24 11:13 07:36 06:41 WBC 11.9 H RBC 4.01 L Hgb 10.8 L Hct 36.4 L MCV 90.8 MCH 26.9 MCHC 29.7 L RDW 15.1 H Plt Count 273 MPV 10.4 Sodium 140 Potassium 3.6 Chloride 99 Carbon Dioxide 36 H Anion Gap 5 BUN 53 H D Creatinine 1.30 H Estim Creat Clear Calc 21 Estimated GFR 39 L Glucose 113 H POC Capillary Glucose 221 H 103 Calcium 8.9 Magnesium 2.2 05/02/24 05/02/24 20:12 15:25 WBC RBC Hgb Hct MCV MCH MCHC RDW Plt Count MPV Sodium Potassium Chloride Carbon Dioxide Anion Gap BUN Creatinine Estim Creat Clear Calc Estimated GFR Glucose POC Capillary Glucose 244 H 204 H Calcium Magnesium Preliminary micro results at discharge 04/30/24 21:39 Blood Culture - Preliminary Blood 04/30/24 21:39 Blood Culture - Preliminary Blood Discharge Plan Discharge Attending physician on discharge: Matilde Husain Consulting providers: Devante Valencia Discharging Clinician: Rebekah Vieyra Patient Disposition: Home, Self-Care Activity: as tolerated Diet: heart healthy Discharge Instructions: patient to follow discharge care instruction from her flight crew time clerk and follow up as scheduled, patient to follow up with her primary care provider as soon as possible. patient is instructed if any symptoms worsen to go to nearest ER. Patient Instructions: Antibiotic Form Patient Language: Portuguese Stand Alone Forms: General Discharge Information Follow-up/Referrals: Graham Ramos, PAPERBACK MACHINE OPERATOR [Advanced Practice Nurse] - UNKNOWN,DOCTOR [Primary Care Provider] - Discharge Medications: New alprazolam 0.25 mg Tablet 0.25 mg PO QID PRN (Reason: Anxiety) Qty: 10 0RF nifedipine [Procardia XL] 30 mg Tablet Extended Release 24hr 60 mg PO DAILY Qty: 60 0RF prednisone 10 mg Tablet 30 mg PO DAILY@0800 Qty: 3 0RF Continued omeprazole 40 mg capsule,delayed release(DR/EC) 40 mg PO DAILY lovastatin 20 mg tablet 20 mg PO HS insulin lispro [Humalog KwikPen Insulin] 100 unit/mL insulin pen See Protocol subcut TIDWM Protocol: Insulin Corrective Low-Dose Condition: glucose < 70 mg/dl Dose/Route: Follow Hypoglycemia Order Condition: glucose 70-200 mg/dl Dose/Route: No additional insulin Condition: glucose 201-250 mg/dl Dose/Route: 2 units sub-Q Condition: glucose 251-300 mg/dl Dose/Route: 3 units sub-Q Condition: glucose 301-350 mg/dl Dose/Route: 4 units sub-Q Condition: glucose 351-400 mg/dl Dose/Route: 5 units sub-Q Condition: glucose > 400 mg/dl Dose/Route: Call MD Protocol Text: *No Correction Dose at Bedtime* insulin glargine [Lantus Solostar U-100 Insulin] 100 unit/mL (3 mL) insulin pen 14 unit subcut HS aspirin 81 mg tablet,delayed release (DR/EC) 81 mg PO DAILY escitalopram oxalate 20 mg tablet 10 mg PO DAILY levothyroxine [Synthroid] 137 mcg Tablet 137 mcg PO DAILY@0630 Qty: 30 0RF montelukast 10 mg tablet 10 mg PO QPM guaifenesin [Mucus Relief ER] 600 mg Tablet Extended Release 12hr 600 mg PO Q12HR Qty: 60 0RF levalbuterol tartrate 45 mcg/actuation HFA aerosol inhaler 2 inh inhalation Q6H PRN (Reason: shortness of breath or wheezing) Qty: 15 2RF fluticasone furoate-vilanterol [Breo Ellipta] 100-25 mcg/dose blister with device See Rx Instructions .ROUTE .COMPLEX Qty: 180 1RF Dose Instruction: INHALE 1 PUFF EVERY 24 HOURS. RINSE AND SPIT AFTER EACH USE. REPLACES ANORO Rx Instructions: INHALE 1 PUFF EVERY 24 HOURS. RINSE AND SPIT AFTER EACH USE. furosemide 40 mg tablet 40 mg PO Q12H Rx Instructions: 60-80mg orally twice a day; ipratropium-albuterol 0.5 mg-3 mg(2.5 mg base)/3 mL solution for nebulization 3 ml inhalation Q6H PRN (Reason: shortness of breath or wheezing) 90 Days Qty: 1080 1RF ramelteon 8 mg tablet See Rx Instructions .ROUTE .COMPLEX Qty: 90 0RF Dose Instruction: TAKE 1 TABLET ORALLY EVERY DAY AT BEDTIME NEEDED FOR SLEEP Rx Instructions: TAKE 1 TABLET ORALLY EVERY DAY AT BEDTIME NEEDED FOR SLEEP Date of admission: 05/01/24 09:01 Primary Care Provider: UNKNOWN,DOCTOR Admitting Provider: Matilde Husain Attending physician on admission: Matilde Husain Condition: Serious
[2024-05-03 16:21] LABS: Glucose Point of Care 206 mg/dl (65-105)
== END 2024-05-03 16:01 | disposition home or self-care (01) | DRG 190 ==
LOC: ANHED 22:34 → ANHIMU 23:11
PROVIDERS: Pediatrics; Student in an Organized Health Care Education/Training Program; Admitting Provider Internal Medicine; Emergency Provider Physician Assistant; Visit Provider Family Medicine
DX: J44.1 Chronic obstructive pulmonary disease with (acute) exacerbation (principal); J96.21 Acute and chronic respiratory failure with hypoxia; I13.0 Hypertensive heart and chronic kidney disease with heart failure and stage 1 through stage 4 chronic kidney disease, or unspecified chronic kidney disease; I50.32 Chronic diastolic (congestive) heart failure; E11.22 Type 2 diabetes mellitus with diabetic chronic kidney disease; E11.65 Type 2 diabetes mellitus with hyperglycemia; N18.32 Chronic kidney disease, stage 3b; E78.5 Hyperlipidemia, unspecified; K21.9 Gastro-esophageal reflux disease without esophagitis; I25.10 Atherosclerotic heart disease of native coronary artery without angina pectoris; E03.9 Hypothyroidism, unspecified; Z90.49 Acquired absence of other specified parts of digestive tract; Z90.711 Acquired absence of uterus with remaining cervical stump; I25.2 Old myocardial infarction; Z99.81 Dependence on supplemental oxygen; Z95.5 Presence of coronary angioplasty implant and graft; Z79.4 Long term (current) use of insulin; Z87.891 Personal history of nicotine dependence
CPT/HCPCS: 36415; 36600; 71045; 71275; 80048; 80053; 82375; 82805; 82948; 83050; 83735; 83880; 85018; 85025; 85027; 87040; 87637; 93005; 93970; 94618; 94640; 94762; 96365; 96366; 96375; 96376; 99285; A9270; G0378; J1650; J1815; J1956; J2919; J7512; Q9967

== ENCOUNTER 2024-07-12 12:50 | Outpatient (CLI) | payer MEDICARE, SELFPAY ==
--- OUTSIDE RECORDS SUMMARY | 2024-07-12 12:55 | XMS_ITS | Clinical Summary ---
Author Organization [facility] Address [address] [place] [address] Care Team Providers Care Product Support Technician Name Role Phone Unavailable Primary Care Provider Unavailabl e Source Comments [facility],non-owned Affiliates and Associated Physician Practices is amultiple site organization consisting of ambulatory clinics and hospital sitesin [place], [place], [place] and [place]. This disclosure is being madepursuant to the Care Everywhere program and may not contain all information available regarding this patient. Last updated 17.[facility] Allergies No known active allergies Medications * Be aware that medications may not be up to date on this document. Alwaysverify current medications with the patient. montelukast (Singulair) 10 MG tablet Take 1 (one) tablet by mouth at bedtime Active insulin glargine (Lantus/Semgle e) 100 units/mL pen Inject 14 (fourteen) Units [...] need (number of months): Lifetime 1 Each 4 Active budesonide-for moterol (Symbicort) 160-4.5 MCG/ACT inhaler Inhale 2 (two) puffs by mouth 2 times daily for 60 days 10.2 g 1 4 Active albuterol-ipra tropium (Duo-Neb) 0.5-2.5 (3) MG/3ML nebulizer solution Inhale 3 mL (1 vial) by mouth using nebulizer every 6 hours for 90 days 360 mL 2 4 Active NIFEdipine CR 24hr (Adalat CC) 60 MG tablet Take 1 (one) tablet by mouth once daily for 60 days 30 tablet 1 4 Active Active Problems Problem Noted Date Diagnosed [...] and heating? Not hard at all 01/30/2024 [facility] [place] of Occupat ional Health - Occupational Stress [...] any time in the past 12 m [facility], were you homeless or living in a penitentiary (including now)? No 01/30/2024 Comments Unknown Sex and Gender Information Value Date Recorded Sex Assigned at Not on file Legal Sex Female 1:19 AM FOOD SERVICE AGENT Gender Identity Not on file Sexual Orientation Not on file Last Filed Vital Signs Vital Sign Reading Time Taken Comments Blood Pressure 143/58 02/05/2024 12:01 PM FOOD SERVICE AGENT Pulse 79 02/05/2024 12:01 PM FOOD SERVICE AGENT Temperature 36.2 C (97.1 F) 02/05/2024 8:01 AM FOOD SERVICE AGENT Respiratory Rate 26 02/05/2024 12:01 PM FOOD SERVICE AGENT Oxygen Saturation 94% 02/05/2024 12:01 PM FOOD SERVICE AGENT Inhaled Oxygen Concentration 35% 02/01/2024 1 1:38 PM FOOD SERVICE AGENT Weight 64.6 kg (142 lb 5.6 oz) 01/30/2024 5:14 P M FOOD SERVICE AGENT Height 152.4 cm (5') 01/30/2024 5:14 PM FOOD SERVICE AGENT Body Mass Index 27.8 01/30/2024 5:14 PM FOOD SERVICE AGENT Plan of Treatment Health Maintenance Due Date Last Done Comments BONE DENSITY TESTING 1941 DTAP/TDAP/TD VACCINES (1 - Tdap) 1960 PNEUMOCOCCAL VACCINE 50+ (1 of 2 - PCV) 1960 ZOSTER VACCINE (1 of 2) 10/17/1991 Respiratory Syncytial Virus (RSV) Vaccine Pt: or over 60 yrs (1 - 1-dose 75+ series) 2016 COVID-19 VACCINE ( - season) 2023 DEPRESSION SCREENING 02/16/2024 MEDICARE AWV CALENDAR YEAR 2024 INFLUENZA VACCINE (Season Ended) 2024 11/19/2021, 12/19/2020, 11/08/2019, Additional history exists HEPATITIS B VACCINE Aged Out No longe [...] on patient's age to complete this topic Insurance [facility] MANAGED [place] [address] Advance Directives * LIMITED RESUSCITATION-PRIOR AND AFTER [...]
--- OUTSIDE RECORDS SUMMARY | 2024-07-12 12:55 | XMS_ITS | Clinical Summary ---
Author Organization [facility] Address [address] [address] Phone Care Team Providers Care Gis Application Developer Name Role Phone Scott Galvez MD Primary Care Provider [phone] Allergies No known active allergies Medications albuterol (2.5 MG/3ML) 0.083% nebulizer solution 3 mL daily Active amLODIPine (NORVASC) 5 MG tablet 9 Active furosemide (LASIX) 40 MG tablet 9 Active losartan (COZAAR) 50 MG tablet 9 Active omeprazole (PriLOSEC) [address] capsule 9 Active metoprolol tartrate (LOPRESSOR) 25 MG tablet 9 Active lovastatin (MEVACOR) 20 MG tablet 9 Active potassium chloride (KLOR-CON M20) 20 MEQ CR tablet 9 Active ANORO ELLIPTA 62.5-25 MCG/INH aerosol powder 0 Active aspirin EC 81 MG EC tablet Take 81 mg by mouth daily Active Calcium Carbonate-Vit D-Min (CALCIUM/VITAMI N D/MINERALS) 600-200 MG-UNIT tablet Take 1 capsule by mouth daily 7 Active Accu-Chek Softclix Lancets lancets 0 Active pen needle, diabetic (Droplet Pen [place]) 31G X 5 MM misc 0 Active glucose blood (Accu-Chek Corrie Plus) test strip 0 Active Continuous Blood Gluc Sensor (FreeStyle Sophia 14 Day Sensor) misc Use with Freestyle Sophia monitor 0 Active Continuous Blood Gluc Pillow Cleaner (FreeStyle Sophia 14 Day [place]) device Use with Freestyle Sophia Sensor 0 Active Lantus SoloStar 100 UNIT/ML injection INJECT 22 UNITS AT BEDTIME 0 Active levalbuterol (XOPENEX HFA) 45 MCG/ACT inhaler INHALE 2 PUFFS BY MOUTH EVERY 6 HOURS DIRECTED FOR 30 DAYS 0 Active LORazepam (ATIVAN) 0.5 MG tablet TAKE 1 TABLET BY MOUTH NEEDED FOR ANXIETY 1 Active furosemide (LASIX) 20 MG tablet 1 Active levothyroxine (SYNTHROID) 137 MCG tablet Take 137 mcg by mouth 1 (one) time each day in the morning 1 Active HumaLOG KWIKPEN 100 UNIT/ML solution pen-injector 1 Active theophylline (UNIPHYL) 400 MG 24 hr tablet Take 400 mg by mouth 1 (one) time each day in the evening 2 Active budesonide (PULMICORT) 0.5 MG/2ML nebulizer solution USE 1 VIAL VIA NEBULIZER TWICE A DAY 2 Active escitalopram (LEXAPRO) 10 MG tablet Take 10 mg by mouth 1 (one) time each day 2 Active Active Problems Problem Noted Date Diagnosed Date Stage 3a chronic kidney disease 05/16/2018 Congestive heart failure 04/29/2018 Obstructive sleep apnea syndrome 04/29/2018 Chronic obstructive pulmonary disease 03/07/2018 Diabetes mellitus 03/07/2018 Essential hypertension 03/07/2018 Hyperlipidemia 03/07/2018 Tobacco dependence syndrome 03/07/2018 Coronary arteriosclerosis 06/10/2016 Immunizations Immunization Administration Dates Next Due Influenza (IM) Preservative [...] at Not on file Legal Sex Female 10:03 AM MST Gender Identity Not on file Sexual Orientation [...] Health Maintenance Due Date Last Done Comments Pneumococcal PPSV23/PCV13 65 + Years / Low and Medium Risk (2 of 3 - PPSV23) 11/15/2019 11/14/2018 Influenza Vaccine (Season Ended) 2024 11/19/2021, 11/08/2019, 12/15/2018, Additional history exists Insurance [employer] MEDICARE Care Teams Gis Application Developer Relationship Specialty Start Date End Date Scott Galvez MD [address] [place] [id number] PCP - General Internal Medicine 05/21/21
[2024-07-12 13:11] LABS: Hemoglobin 12.7 g/dL (11.7-13.8); Mean Corpuscular HGB Conc 28.9 g/dL (32-36); Mean Corpuscular Hemoglobin 26.2 pg (27.0-31.0); Mean Corpuscular Volume 90.7 fL (78.0-102.0); Mean Platelet Volume 10.1 fl (9.2-11.8); Platelet Count Result 366 K/mm3 (150-420); Red Blood Count 4.85 M/mm3 (4.20-5.40); Red Cell Distribution Width 16.2 % (11.6-14.4)
[2024-07-12 13:53] LABS: Albumin Level 4.4 g/dL (3.5-5.1); Anion Gap 8 mmol/L (4-12); Blood Urea Nitrogen 46 mg/dL (7-17); Calcium 9.7 mg/dL (8.4-10.2); Carbon Dioxide 28 mmol/L (22-30); Chloride 108 mmol/L (98-107); Estimated Glomerular Filt Rate 39; Osmolality Calculated 306 mOsm/kg (285-295); Phosphorus 5.1 mg/dL (2.5-4.5); Potassium 4.5 mmol/L (3.4-5.0); Sodium 144 mmol/L (137-145)
[2024-07-12 14:00] VITALS: PULSE 78; O2SAT 89
[2024-07-12 14:03] VITALS: PULSE 109; O2SAT 88
[2024-07-12 14:04] VITALS: O2SAT 90
[2024-07-12 14:04] LABS: Glucose 38 mg/dL (65-110)
[2024-07-12 14:15] VITALS: PULSE 82; O2SAT 93
[2024-07-12 14:43] LABS: Add Urine Microscopic? NO; Appearance Urine Clear (Clear); Bilirubin Urine Negative (Negative); Blood Urine Negative (Negative); Color Urine Light Yellow (Yellow); Glucose Urine UA Negative (Negative); Ketones Urine Negative (Negative); Leukocyte Esterase Ur Negative (Negative); Nitrate Urine Negative (Negative); Protein Urine Negative (Negative); Urobilinogen Urine 0.2 mg/dL (0.2-1.0); pH Urine 5.5 (5.0-8.0)
--- NOTE | 2024-07-12 14:52 | HOMEO2EVAL ---
Evaluation was performed at [facility] Home Oxygen Evaluation RC: Home Oxygen (O2) Evaluation Start: 07/12/24 14:47 Freq: Status: Active Protocol: RPE Activity Type Activity Date Activity User E-sign Co-sign Detail Recorded Client Recorded Date Recorded By Document 07/12/24 14:00 [facility] [id number] 07/12/24 14:52 [facility] Document 07/12/24 14:03 [facility] [id number] 07/12/24 14:52 [facility] Document 07/12/24 14:04 [facility] [id number] 07/12/24 14:52 [facility] Document 07/12/24 14:15 [facility] [id number] 07/12/24 14:52 [facility] 07/12/24 07/12/24 07/12/24 14:00 14:03 14:04 Home O2 Evaluation [Oxygen] -Test Phase Resting Exercise Exercise -Oxygen Delivery High Flow Nasal High Flow Nasal High Flow Nasal Cannula Cannula Cannula -Oxygen Flow Rate (L/min) 8 8 9 [Pulse Oximetry] -Pulse Oximetry (90-100 %) 89 L 88 L 90 [Pulse Rate] -Pulse Rate (60-100 beats/min) 78 109 H [Exercise] -Ambulation Distance (feet) 150 -Ambulation Distance (meters) 45.71 [Comments] -Home Oxygen Evaluation Comments Pt requires high flow nasal cannula at 8 liters rest and 9 liters with activity. Pt tolerated oximizer at rest on 5 liters to conserve tanks if out of the home. 07/12/24 14:15 Home O2 Evaluation [Oxygen] -Test Phase Resting -Oxygen Delivery High Flow Nasal Cannula -Oxygen Flow Rate (L/min) 8 [Pulse Oximetry] -Pulse Oximetry (90-100 %) 93 [Pulse Rate] -Pulse Rate (60-100 beats/min) 82 [Exercise] -Ambulation Distance (feet) -Ambulation Distance (meters) [Comments] -Home Oxygen Evaluation Comments
--- NOTE | 2024-07-12 14:52 | PCRCNOTE ---
Patient was given a Oxymizer to use with rest at 5 liters when outside the home to conserve O2 tank use. Ramon o2 eval done on high flow nasal cannula at 8 liters rest and 9 liters with exertion. Pt given a high flow cannula as well and instructed her to let Mak know she needs extras, she stated she didnt have any at home.
[2024-07-12 14:57] LABS: Creatinine Urine 71.2 mg/dL; Total Protein Urine Random 13 mg/dL; Ur Ttl Prot Creatinine Ratio 0.18 mg/mg (0-0.20)
[2024-07-13 14:43] LABS: Parathyroid Intact 183 pg/mL (16-77)
--- NOTE | 2024-07-13 14:47 | WPDPFTINT ---
PFT Procedure Performed PFT Procedure Performed Spirometry with Pre/Post Bronchodilator Diffusing Cap (DLCO) PFT Interpretation DOS: 07/12/2024 REQUESTING: Kameron Bustamante MD REASON FOR TESTING: COPD PULMONARY FUNCTION TESTS Results are not reliable or reproducible. The tech coached the patient, however even with good effort, the results were not reproducible. Lung volumes could not be obtained. Flow volume loop was not reproducible. Reference equations: Gia Cotton Dust. Spirometry: The pre-bronchodilator FEV1 is 0.80 L, 49%. The pre-bronchodilator FVC is 1.68 L, 81%. The FEV1/FVC ratio is 48%. After bronchodilator, the FEV1 is 0.86 L, 53%, +6%. The post-bronchodilator FVC is2.09 L, 101%, +24%. The FEV1/FVC ratio is 53%. Lung volumes: Could not be obtained. Diffusion: DLCO is 2.2, 15%. The DLCO/VA is 0.95, 29%. Flow volume loop: The flow volume loop is not reproducible. IMPRESSION: Extremely severe obstructive ventilatory impairment with good response to bronchodilator, severe diffusion impairment. Compared to her prior testing 10/26/2019, FEV1 was 1.01 L, 69%, now significantly lower, FVC was 2.39 110%, much lower at present. She had airflow obstruction. She was able to perform lung volumes, TLC was 5.08 L, 129%, RV was 172%, DLCO was 30% corrected for alveolar volume. Yahaira Gonzales MD
[2024-07-14 16:14] LABS: Alpha-1-Antitrypsin, QN. 115 mg/dL (83-199)
== END 2024-07-12 12:51 | disposition home or self-care (01) ==
PROVIDERS: Internal Medicine Nephrology; PCP Family Medicine; Visit Provider Internal Medicine Pulmonary Disease
DX: E88.01 Alpha-1-antitrypsin deficiency (principal); N18.32 Chronic kidney disease, stage 3b; R30.0 Dysuria; J44.1 Chronic obstructive pulmonary disease with (acute) exacerbation; R09.02 Hypoxemia
CPT/HCPCS: 36415; 80069; 81003; 82103; 82570; 83970; 84156; 85027; 94060; 94729

== ENCOUNTER 2024-08-28 00:13 | Inpatient (IN) | payer MEDICARE, SELFPAY ==
[2024-08-28] VITALS (50 sets, daily range): BP systolic 104–171; BP diastolic 44–78; PULSE 59–78; RESP 18–30; TEMP 36.6–37.1; O2SAT 54–100; BMI 24.7
--- NOTE | ~2024-08-28 | CT_ITS ---
EXAMINATION: CTA chest PE protocol DATE: 08/28/2024 15:52 INDICATION: R/O PE TECHNIQUE: Computed tomography angiography (CTA) of the chest was performed with 100 mL Omnipaque-350 intravenous contrast timed to evaluate the pulmonary arteries. Coronal maximum intensity projection 3D-reconstructions were created by the technologist. The dose-length product (DLP) was 172.97 mGy-cm. Automated exposure control and iterative reconstruction technique were employed. COMPARISON: 05/01/2024. FINDINGS: Lung parenchyma and airways: Motion artifact, worst in the lower lobes. Emphysematous change. Lingula r atelectasis/scar. Patent airways. Pleura: Unremarkable. Thoracic inlet, axillae and chest wall: Unremarkable. Thoracic aorta: No significant dilation. No dissection. Atherosclerotic calcification. Mediastinum: Dilated central pulmonary arteries as can be seen with pulmonary hypertension. Enlarged bilateral hilar lymph nodes. Heart and pericardium: Enlarged heart. Coronary artery calcifications: Heavy. Upper abdomen: Status post cholecystectomy. Bones: No acute osseous finding. Pulmonary arteries: Study quality: Motion artifact limits evaluation of the bilateral lower lobe segm ental and subsegmental pulmonary arteries. No pulmonary emboli detected in the adequately visualized vessels. IMPRESSION: Suboptimal evaluation of the bilateral lower lobe segmental and subsegmental pulmonary arteries. No C T evidence of acute pulmonary embolus in the adequately visualized vessels. Bilateral hilar lymphadenopathy Reviewed, dictated and finalized at location K. IMPRESSION: Suboptimal evaluation of the bilateral lower lobe segmental and subsegmental pu lmonary arteries. No CT evidence of acute pulmonary embolus in the adequately v isualized vessels. Bilateral hilar lymphadenopathy
--- NOTE | ~2024-08-28 | XR_ITS ---
Portable chest x-ray Comparison: 04/30/2024 Clinical History: Shortness of breath Findings: Lungs are clear, without focal consolidation or pleural effusion. Possible COPD. Cardiome diastinal silhouette is stable. Bones and soft tissues are unremarkable. Impression: Clear lungs. Possible COPD. Reviewed, dictated and finalized at location M. Impression: Clear lungs. Possible COPD.
--- NOTE | ~2024-08-28 | US_ITS ---
EXAMINATION: US venous doppler [facility] DATE: 08/29/2024 18:08 INDICATION: Lower limb swelling TECHNIQUE: Grayscale ultrasound images without and with compression and Doppler ultrasound images of the bilateral lower extremity veins were obtained. COMPARISON: None. FINDINGS: The visualized portions of right common femoral vein, profunda (deep) femoral vein, femoral vein, pop liteal vein, posterior tibial veins, peroneal veins, gastrocnemius vein and proximal to mid greater s aphenous vein are patent. The visualized portions of left common femoral vein, profunda femoral vein, femoral vein, popliteal v ein, posterior tibial veins, peroneal veins, gastrocnemius vein and proximal to mid greater saphenous vein are patent. IMPRESSION: 1. No deep venous thrombosis in either lower limb. Reviewed, dictated and finalized at location A.
--- OUTSIDE RECORDS SUMMARY | 2024-08-28 00:21 | XMS_ITS | Clinical Summary ---
Author Organization [facility] Address [address] [address] Phone Care Team Providers Care Iron Carrier Name Role Phone Scott Galvez MD Primary Care Provider [phone] Allergies No known active allergies Medications albuterol [...] 0 Active pen needle, diabetic (Droplet Pen [place]) 31G X 5 MM misc 0 Active glucose blood (Accu-Chek Corrie Plus) test strip 0 Active Continuous Blood Gluc Sensor (FreeStyle Sophia 14 Day Sensor) mis Use with Freestyle Sophia monitor 0 Active Continuous Blood Gluc Teacher Dramatics (FreeStyle Sophia 14 Day [place]) device Use with Freestyle Sophia Sensor 0 [...] and Medium Risk (2 of 3 - PCV20 or PCV21) 11/15/2019 11/14/2018 Influenza Vaccine (#1) 2024 2, 11/08/2019, 12/15/2018, Additional history exists Insurance [employer] MEDICARE Care Teams Iron Carrier Relationship Specialty Start Date End Date Scott Galvez MD [address] [place] [id number] (work) PCP - General Internal Medicine 05/21/21
--- OUTSIDE RECORDS SUMMARY | 2024-08-28 00:21 | XMS_ITS | Clinical Summary ---
Author Organization [facility] [employer] [employer] Address [address] [place] [address] Care Team Providers Care Electrophysiology Scientist Name Role Phone Unavailable Primary Care Provider Unavailabl e Source Comments [facility],non-owned Affiliates and Associated Physician Practices is amultiple site organization consisting of ambulatory clinics and hospital sitesin [place], [place], [place] and [place]. This disclosure is being madepursuant to the Care Everywhere program and may not contain all information available regarding this patient. Last updated 17.[facility] [employer] [employer] Allergies No known active allergies Medications * [...] and heating? Not hard at all 01/30/2024 [facility] [place] of Occupat ional Health - Occupational Stress [...] any time in the past 12 m [facility], were you homeless or living in a senior care (including now)? No 01/30/2024 Comments Unknown Sex and Gender Information Value Date Recorded Sex Assigned at Not on file Legal Sex Female 1:19 AM AUTO BODY CUSTOMIZER Gender Identity Not on file Sexual Orientation Not on file Last Filed Vital Signs Vital Sign Reading Time Taken Comments Blood Pressure 143/58 02/05/2024 12:01 PM AUTO BODY CUSTOMIZER Pulse 79 02/05/2024 12:01 PM AUTO BODY CUSTOMIZER Temperature 36.2 C (97.1 F) 02/05/2024 8:01 AM AUTO BODY CUSTOMIZER Respiratory Rate 26 02/05/2024 12:01 PM AUTO BODY CUSTOMIZER Oxygen Saturation 94% 02/05/2024 12:01 PM AUTO BODY CUSTOMIZER Inhaled Oxygen Concentration 35% 02/01/2024 1 1:38 PM AUTO BODY CUSTOMIZER Weight 64.6 kg (142 lb 5.6 oz) 01/30/2024 5:14 P M AUTO BODY CUSTOMIZER Height 152.4 cm (5') 01/30/2024 5:14 PM AUTO BODY CUSTOMIZER Body Mass Index 27.8 01/30/2024 5:14 PM AUTO BODY CUSTOMIZER Plan of Treatment Health Maintenance Due Date [...] MEDICARE AWV CALENDAR YEAR 2024 INFLUENZA VACCINE (#1) 2024 2, 12/19/2020, 11/08/2019, Additional history exists HEPATITIS B [...] patient's age to complete this topic Insurance [facility] MANAGED MEDICARE ADV Advance Directives * LIMITED RESUSCITATION-PRIOR AND AFTER [...]
--- OUTSIDE RECORDS SUMMARY | 2024-08-28 00:21 | XMS_ITS | Clinical Summary ---
Author Organization [facility] Address [address] [place] [address] Care Team Providers Care Court Recording Monitor Name Role Phone Unavailable Primary Care Provider [...] D 600-400 MG-UNIT tabletIndications :Congestive heart failure ([facility]) Take 1 tablet by mouth 2 (two) times daily. clarification of script 180 tablet 1 10/02/19 20 Active Insulin Pen Needle (DROPLET PEN NEEDLES) 31G X 8 MM MiscIndications:D iamarcelletes ([facility]) TO USE TO INJECT INSULIN QID 1 Container 5 03/19/19 21 Active insulin lispro, 1 Unit Dial, (HUMALOG KWIKPEN) 100 UNIT/ML injection (PEN)Indications: Diabetes mellitus ([facility]) INJECT SUBCUTANEOUSLY 3 TIMES DAILY PER SLIDING SCALE (UP TO DAILY DOSE OF 35-40 UNITS) 12 pen 08/13/19 21 Active furosemide 40 MG tabletIndications :Congestive heart failure ([facility]) TAKE 1 TABLET BY MOUTH DAILY IN THE MORNING 90 tablet 1 11/20/19 21 Active LORazepam (ATIVAN) 0.5 MG tabletIndications :Panic attack Take 1 tablet (0.5 mg total) by mouth every 6 (six) hours as needed for Anxiety. 20 tablet 11/22/19 21 Active Continuous Blood Gluc Insulator Helper (FREESTYLE SANDER 14 DAY READER) DeviceIndications :Type 2 diabetes mellitus with diabetic nephropathy, with long-term current use of insulin ([facility]) Use to check blood sugar four times daily and as directed. 1 each 02/19/19 22 Active insulin glargine 100 UNIT/ML injection (PEN)Indications: Type 2 diabetes mellitus with diabetic nephropathy, with long-term current use of insulin ([facility]) Inject 16 Units into the skin nightly at bedtime. 5 pen 1 03/03/19 22 Active furosemide 20 MG tabletIndications :Essential hypertension Take 1 tablet (20 mg total) by mouth every evening. 90 tablet 1 03/03/19 22 Active ACCU-CHEK NYDIA PLUS test stripIndications: Type 2 diabetes mellitus with diabetic nephropathy, with long-term current use of insulin ([facility]) Use to check blood sugar [...] III (moderate ) 05/16/2018 Congestive heart failure ([facility]) 04/29 Obstructive sleep apnea syndrome 04/29/2018 Anxiety 04/29/2018 Chronic obstructive pulmonary disease ([facility]) 03/07/2018 Diabetes mellitus ([facility]) 03/07/2018 Essential hypertension 03/07/2018 Hyperlipidemia 03/07/2018 Tobacco dependence syndrome 03/07/2018 Chronic hypoxemic respiratory failure ([facility]) 03/07/2018 Esophagitis 03/07/2018 Hypothyroidism 03/07/2018 Coronary arteriosclerosis 06/10/2016 Immunizations Immunization Administration Dates Next Due Fluzone 6 Months+ Quad (0.5 mL Prefilled Syringe) 11/14/2018 Fluzone High Dose - >Age 65 (Prefilled Syringe) 12/19/2020,11/06/2019 Influenza (Generic) 11/08/2019,12/15/2018,2018 Influenza Adult (Generic) 11/08/2019 Pneumococcal (Prevnar 13) 11/14/2018 Family History Medical History Relation Comments Stroke Father Diabetes Mother Heart Disease Mother Coronary artery disease Other prematur e Heart Disease Sister 1 ME Sister 2 Heart Sister 3 form heart problems Heart Sister 4 from heart problems ME Son Open Heart Son Stroke Son (after [...] Comments Blood Pressure 108/64 01/30/2021 2:01 PM SYSTEMS TESTING LABORATORY TECHNICIAN Pulse 63 01/30/2021 2:01 PM SYSTEMS TESTING LABORATORY TECHNICIAN Temperature 36.1 C (97 F) 01/30/2021 2:01 PM SYSTEMS TESTING LABORATORY TECHNICIAN Respiratory Rate 20 01/30/2021 2:01 PM SYSTEMS TESTING LABORATORY TECHNICIAN Oxygen Saturation 91% 01/30/2021 2: 01 PM SYSTEMS TESTING LABORATORY TECHNICIAN Inhaled Oxygen Concentration - - Weight 64.8 kg (142 lb 12.8 oz) 01/30/2021 2:01 PM SYSTEMS TESTING LABORATORY TECHNICIAN Height 152.4 cm (5') 01/30/2021 2:01 PM SYSTEMS TESTING LABORATORY TECHNICIAN Body Mass Index 27.89 01/30/2021 2:01 PM SYSTEMS TESTING LABORATORY TECHNICIAN Plan of Treatment Health Maintenance Due Date Last Done Comments ASCVD Statin 1941 Kidney Health Evaluation 1941 Diabetes: Retinopathy Eye Exam 10/17/1959 DTaP, Tdap and Td Vaccines (1 - Tdap) 1960 Zoster Vaccines (1 of 2) 10/17/1991 Annual Medicare Wellness Visit 2006 Dexa Scan (General) 2006 RSV Immunization or 60+ Years (1 - 1-dose 75+ series) 2016 Pneumococcal Vaccine: 50+ Years (2 of 2 - PPSV23) 01/09/2019 11/14/2018 ASCVD LDL 04/30/2021 04/30/2020, 05/26/2011 Lipid Panel 04/30/2021 04/30/2020, 05/26/2011 Hemoglobin A1C 07/31/2021 01/30/2021, 10/16, 07/30/2020, Additional history exists COVID-19 Vaccine ( season) 2023 09/30/2020, 09/09/2020 Meningococcal B Vaccine Aged Out No l [...] (BACK OFFICE) (01/30/2021) HGB A1C 7.0 % [id number] T [facility] 01/30/2021 us Jessee Gregg MD LABORATORY Final Resul t -[id number] [place] [address] [place] [address], * LIPID PANEL (04/30/2020 4:15 PM CDT) [...] factors. LDL-C is now calculated using the Jamil-Lopez calculation, which is a validated novel method providing better accuracy than the Friedewald equation in the estimation of LDL-C. Jamil SS et al. PAUL. 2013;310(19): 7420-8854 (http://education.In1001.com.Perceptive Pixel/faq/OHE484) CHOL/HDL RATIO 3.0 <5.0 (calc) [facility] [...] Final Resul t [facility] [address] [address] [id number] from Last 3 Months or Most Recently Relevant to Health Maintenance Insurance MEDICARE
--- OUTSIDE RECORDS SUMMARY | 2024-08-28 00:21 | XMS_ITS | Encounter Summary ---
Author Organization [facility] Address [address] [place] [address] Care Team Providers Care Land Acquisition Specialist Name Role Phone Raymond Medina MD Primary Care Provider [phone] Jessee Gregg MD Primary Care Provider [phone] Encounter Details Date Type Department Care Team (Late st Contact Info) Description 10/30/2011 Abstract [facility] [address] [place] [address] New Referring, Provider Social History [...] filedocumented in this encounter Care Teams Land Acquisition Specialist Relationship Specialty Start Date End Date Raymond Medina MD [address] [place] [id number] PCP - General FAMILY PRACTICE 06/04/16 08/16/19 [place] [address] [place] [address] PCP - General FAMILY PRACTICE 08/17/19 06/15/21 documented as of this encounter
--- OUTSIDE RECORDS SUMMARY | 2024-08-28 00:21 | XMS_ITS | Continuity of Care Document ---
Author Organization [employer] [facility] Address [address] Julien [address] [place] [phone] Phone Care Team Providers Care Ship'S Electronic Warfare Officer Name Role Phone Jm Burrows MD Unavailable [...] Diagnoses Date Provider Providers Copied on Encounter [facility], [address], [place], [place], [address], [place] tel:[phone] [place] Professional FOLLOW-UP SURGERY NOS 4 Wankum Jm. [address], [address], [place], [place], [address], [place]. tel:[phone] Referring Provider: Maulik Blanco, [address], [place], [address] . tel:[phone] [facility], [address], [place], [place], [address], [place] tel:[phone] SEC [place] Professional FOLLOW-UP SURGERY NOS 3 Wankum Jm. [address], [address], [place], [place], [address], [place]. tel:[phone] Referring Provider: Maulik Blanco, [address], [place], [address] . tel:[phone] [facility], [address], [place], [place], [address], [place] tel:[phone] [place] Professional FOLLOW-UP SURGERY NOS 3 Vani Agrawal. [address], [address], [place], [address], [place]. tel:[phone] Referring Provider: Maulik Blanco, [address], [place], [address] . tel:[phone] [facility], [address], [place], [place], [address], [place] tel:[phone] [facility] No Information 3 Latrice Willingham. [address], [address], [place], [place], [address], [place]. tel:[phone] Referring Provider: Maulik Blanco, [facility] [address], [place], [address] . tel:[phone] [facility], [address], [place], [place], [address], [place] tel:[phone] SEC Maurice [place] No Information 3 Latrice Willingham. [facility] [address], [address], [place], [place], [address], [place]. tel:[phone] Referring Provider: Maulik Blanco, [facility] [address], [place], [address] . tel:[phone] [facility], [address], [place], [place], [address], [phone] SEC Maurice [place] No Information 0 3 Latrice Maulik. [facility] [address], [address], [place], [place], [address], [place]. tel:[phone] [facility], [facility] [address], [place], [place], [address], [place] tel:[phone] SEC [facility] Professional SENILE NUCLEAR CATARACTDMII OPHTH NT ST UNCNTRLDIABETI C RETINOPATHY NOS 2 3 Latrice Willingham. [facility] [address], [address], [place], [place], [address], [place]. tel:[phone] Referring Provider: Maulik Blanco, [facility] [address], [place], [address] . tel:[phone] Office/outpa tient Visit, [facility], [address], [place], [place], [address], [place] tel:[phone] SEC [facility] No Information 6[address] Philomena Chaneyn. [address], [address], [place], [address], [place]. tel:[phone] Referring Provider: Deni [place], [address] [place], [address]. tel:[phone] Family History Family Member Type Diagnosis Age At Onset No Information Payers Payer name Insurance type Covered alliance party ID Authoriza tion(s) No Information Social History Type Description Quantity Date Captured Comments Sex Female Smoking Status No Information Chief Complaint And Reason For Visit No Information Reason For Referral Reason For Referral No Information History Of Present Illness Encounter Date Complaint History Of Prese nt Illness No Information Functional Status Date Functional Assessmen t No Information Instructions Date Instruction Additional Infor matmatthew - 3weeks-refract os Related to F OLLOW-UP [...] plan -SENILE NUCLEAR CATARACT -DMII OPHTH NT [facility] -DIABETIC RETINOPATHY NOS - Cataracts account for [...]
--- NOTE | 2024-08-28 00:24 | ECG_ITS ---
Test Date: 2024-08-28 01:16:26 Measurements Intervals [place] Rate: 63 P: 44 NC: 147 QRS: 121 QRSD: 109 T: -56 QT: 432 QTc: 445 Interpretive Statements SINUS RHYTHM WITH SINUS ARRHYTHMIA POSSIBLE RIGHT VENTRICULAR HYPERTROPHY [SOME/ALL OF: PROMINENT R IN V1, LATE TRANSITION, RAD, MONIQUE, SSS] ST DEVIATION AND MODERATE T-WAVE ABNORMALITY, CONSIDER ANTEROLATERAL ISCHEMIA [-0.1+ mV T-WAVE IN V3-V6] ST DEVIATION AND MODERATE T-WAVE ABNORMALITY, CONSIDER INFERIOR ISCHEMIA [-0.1+ mV T-WAVE IN II/aVF] Compared to ECG 04/30/2024 20:20:01 Possible ischemia now present T-wave abnormality still present Electronically Signed On 08-28-2024 15:55:31 CDT by Spencer Sanchez M.D.
[2024-08-28 00:33] LABS: Hematocrit 45.3 % (37.0-47.0); Hemoglobin 13.1 g/dL (12.0-15.0); Immature Granulocyte Percent A 0.8 % (0-0.5); Lymphocytes Absolute Auto 3.14 K/mm3 (0.9-3.2); Mean Corpuscular HGB Conc 28.9 g/dl (32-36); Mean Corpuscular Hemoglobin 26.8 pg (26-34); Mean Corpuscular Volume 92.8 fl (80-100); Nucleated Red Blood Cells Absolute Auto 0.000 K/mm3 (0.0-0.012); Nucleated Red Blood Cells Perc 0.0 % (0.0-0.2); Platelet Count Result 369 k/mm3 (150-375); Red Blood Count 4.88 M/mm3 (4.2-5.4); White Blood Count 22.9 K/mm3 (4.5-10.0)
[2024-08-28] MEDS: ALBUTEROL SULFATE NEB 2.5 MG/3 ML INH 10 MG INHALATION (00:33)
[2024-08-28] MEDS: IPRATROPIUM BR 0.02% INH SOLN 0.5 MG/2.5 ML VIAL 2 MG INHALATION (00:34)
[2024-08-28 00:45] LABS: Alanine Aminotransferase 29 U/L (6-35); Albumin Level 4.3 g/dL (3.5-5.1); Alkaline Phosphatase 99 U/L (38-126); Anion Gap 10 mmol/L (4-12); Aspartate Amino Transferase 37 U/L (14-36); Bilirubin,Total 0.4 mg/dL (0.2-1.3); Blood Urea Nitrogen 43 mg/dL (7-17); Calcium 9.5 mg/dL (8.4-10.2); Carbon Dioxide 30 mmol/L (22-30); Chloride 103 mmol/L (98-107); Estimated Glomerular Filt Rate 36; Glucose 176 mg/dL (65-110); INR 1.1; Magnesium 3.5 mg/dL (1.6-2.3); Potassium 4.8 mmol/L (3.4-5.0); Prothrombin Time 14.5 Seconds (11.1-14.7); Sodium 143 mmol/L (137-145); Total Protein 8.1 g/dL (6.3-8.2)
[2024-08-28 00:46] LABS: Partial Thromboplastin Time 26.3 Seconds (22.3-36.8)
[2024-08-28 00:51] LABS: Alveolar/Arterial O2 Gradient 523.2 mmHg; Fractional Inspired Oxygen 100 %; HCO3 ABG 27.3 mEq/l (22.0-26.0); Oxygen Content ABG 18.4 %vol (16.0-22.0); Oxygen Saturation ABG 98.6 % (95.0-100.0); PCO2 ABG 50.9 mmHg (35.0-45.0); PO2 ABG 138.9 mmHg (80.0-100.0); PO2 FiO2 Ratio Arterial Blood 1.39 %
[2024-08-28 00:55] LABS: Modified Allen's Test Pass; Site Drawn RIGHT RADIAL
--- NOTE | 2024-08-28 00:59 | ED.GENADULT ---
HPI - General Adult General Chief complaint: Shortness of Breath/Dyspnea Stated complaint: RESP DISTRESS Time Seen by Provider: 08/28/24 00:18 History of Present Illness HPI narrative: Patient is an 83-year-old female who presents to the emergency department this june evening in severe respiratory distress. Per EMS report, patient was found tachypneic and hypoxic on her a L baseline oxygen. She was placed on 10 L non-rebreather, administered 2 g of IV magnesium, epinephrine, 125 mg IV Solu-Medrol and 3 DuoNeb breathing treatment. Upon arrival to our emergency department, patient is satting 54% on the time L non-rebreather. Patient was immediately placed on BiPAP. She is currently refusing intubation and CPR. Only okay to BiPAP and pressors if needed. Code status was updated in the chart. Related Data Home Medications ?Medication ?Instructions ?Recorded ?Confirmed ?Last Taken ?Type insulin lispro 100 unit/mL See Protocol subcut TIDWM 05/15/21 07/25/24 01/31/23 History subcutaneous pen (Humalog KwikPen (U-100) Insulin) lovastatin 20 mg tablet 20 mg PO HS 05/15/21 07/25/24 04/30/24 History omeprazole 40 mg capsule,delayed 40 mg PO DAILY 05/15/21 07/25/24 05/01/24 History release aspirin 81 mg tablet,delayed 81 mg PO DAILY 09/26/21 07/25/24 05/01/24 History release escitalopram oxalate 20 mg tablet 10 mg PO DAILY 07/14/23 07/25/24 04/30/24 07:00 History furosemide 40 mg tablet 40 mg PO Q12H 10/25/23 07/25/24 04/30/24 07:00 History montelukast 10 mg tablet 10 mg PO QPM 03/12/24 07/25/24 04/30/24 History Allergies Allergy/AdvReac Type Severity Reaction Status Date / Time No Known Allergies Allergy Verified 08/01/24 11:05 Review of Systems Review of Systems: All systems are reviewed and are negative unless stated otherwise in the HPI. 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 Prior echocardiogram 05/2023 demonstrated basal inferior septal wall severely hypokinetic to akinetic but this was not mentioned on the most recent echo Chronic kidney disease Stage IIIB Hypothyroidism Coronary artery disease Normal Lexiscan 10/2022 Gastroesophageal reflux disease Chronic obstructive pulmonary disease Hyperlipidemia Surgical History Surgical History History of cholecystectomy History of appendectomy History of partial hysterectomy Family History Family History Father Cerebrovascular accident Mother Diabetes mellitus Heart disease Sibling Throat cancer Renal failure Suicide Sibling Heart disease Social History Social History Social History: Surrogate medical decision maker: Eagle anjelica Bonilla. Code status: Do not intubate Smoking packs per day: 1 Smoking cigarettes per day: 20.0 Years smoked: 60 Smoking pack-years: 60.00 Smoking status: Former smoker Tobacco type: cigarettes Second hand tobacco smoke exposure: Yes Smoking end date: 05/01/1964 Alcohol intake: never Alcohol use details: Social Substance use: never Substance use type: does not use Do You Feel Safe in your Home?: Yes Lack of Transportation: YES Lack of Food: Never True Current Housing: I Have Housing Concerned About Future Housing: No Difficulty Paying Gas/Electric Bills: No Difficulty Paying for Meds: No Currently Unemployed: No Education: High School Diploma/GED Difficulty w/ Childcare or Family Care: No Living arrangements: with family Additional living arrangements comments: Lives with son, [id number] and 3 grandchildren in [place]. 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 Gender identity (if verbalized by the patient): Female Spiritual care concerns: No Exam Narrative: General: Alert, awake, afebrile, in severe respiratory distress. HEENT: PERRL, no rhinorrhea, no post nasal drip, oropharynx clear. Neck: Trachea midline, no JVD, no lymphadenopathy. Cardiovascular: Regular rate and rhythm, no murmurs, rubs or gallops, no peripheral edema. Respiratory: Diminished breath sounds and air movement bilaterally, tachypnea, in severe respiratory distress with use of accessory muscles of respirations. Abdomen: Soft, nontender, nondistended, no rebound, no guarding, no peritoneal signs. Musculoskeletal: No joint swelling or deformity, normal muscle tone. Skin: No rashes or petechia, no signs of infection, peripheral cyanosis noted to the patient's bilateral hands. Psychiatric: Alert and oriented, normal behavior and judgment for situation. Neurological: Alert and oriented to person, place, and time. Follows all commands. No focal deficits, speech is clear and fluent. Course Vital Signs Vital signs: Vital Signs Temperature 97.9 F 08/28/24 00:15 Pulse Rate 65 08/28/24 00:15 Respiratory Rate 29 H 08/28/24 00:15 Blood Pressure 138/78 08/28/24 00:15 Pulse Oximetry 54 L 08/28/24 00:15 Oxygen Delivery High Flow Nasal Cannula 08/28/24 00:15 Oxygen Flow Rate 10 08/28/24 00:15 Fraction of Inspired Oxygen 100 08/28/24 00:15 Temperature 97.9 F 08/28/24 00:15 Pulse Rate 64 08/28/24 02:46 Respiratory Rate 26 H 08/28/24 02:46 Blood Pressure 111/51 L 08/28/24 01:47 Pulse Oximetry 98 08/28/24 02:46 Oxygen Delivery BiPAP 08/28/24 00:15 Oxygen Flow Rate 10 08/28/24 00:15 Fraction of Inspired Oxygen 100 08/28/24 00:15 Medical Decision Making [facility] Narrative Medical decision making narrative: The patient was evaluated by myself in the emergency department. History is obtained from patient who is an independent historian along with EMS report and physical exam was performed. External medical records were reviewed at this time. IV was established and pertinent tests were ordered. Patient was administered immediately placed on BiPAP with respiratory therapist at bedside. Patient was administered an hour long DuoNeb breathing treatment at this time. She was started on antibiotics to cover her for her COPD with Rocephin and azithromycin. EKG was obtained which revealed sinus rhythm at a rate of 63 beats per minute with T-wave inversions noted in the inferolateral leads, no ST changes. EKG was independently interpreted by me and is currently pending official cardiology read. Laboratory results obtained revealing a leukocytosis of 22.9, BUN 43, creatinine 1.4 which is not far off from patient's baseline. ABG noted to be within normal limits for patient. Lactic acid slightly elevated at 2.5 [place] [address]. Viral swabs negative for COVID/influenza/RSV. Imaging studies obtained included CXR which was independently interpreted by me revealing no acute cardiopulmonary process, which is pending final radiology interpretation. Differential diagnosis considerations include COPD exacerbation, pulmonary edema, infectious process such as pneumonia, acute viral syndrome. Comorbidities impacting this visit include history of COPD and chronic O2 dependence. I have evaluated and discussed social determinants of health with the patient that could potentially impact subsequent diagnosis and treatment plans. On repeat assessment of the patient, reevaluation revealed that the patient is doing well and is in no acute distress. Patient symptoms have improved since she arrived to our emergency department. Repeat vital signs were all reviewed and noted to be stable. Differential diagnosis and treatment plan were discussed with the patient at bedside. Patient agrees with discussion and after shared medical decision making agrees with admission. All questions were answered to the patient's satisfaction. Critical care time of 75 minutes, exclusive of separately performed procedures, necessary for treating or preventing eminent or life-threatening deterioration of patient's condition of acute hypoxic respiratory failure requiring BiPAP, focused on patient care provided personally by me and time spent during initial evaluation, physical examination, ordering and performing treatments and interventions, ordering and reviewing laboratory studies, ordering and reviewing radiographic studies, re-evaluation of the patient's condition, evaluation of the patient's response to treatment, and discussion of patient case with consultants. Vital Signs Vital Signs: Vital Signs Temperature 97.9 F 08/28/24 00:15 Pulse Rate 65 08/28/24 00:15 Respiratory Rate 29 H 08/28/24 00:15 Blood Pressure 138/78 08/28/24 00:15 Pulse Oximetry 54 L 08/28/24 00:15 Oxygen Delivery High Flow Nasal Cannula 08/28/24 00:15 Oxygen Flow Rate 10 08/28/24 00:15 Fraction of Inspired Oxygen 100 08/28/24 00:15 Temperature 97.9 F 08/28/24 00:15 Pulse Rate 64 08/28/24 02:46 Respiratory Rate 26 H 08/28/24 02:46 Blood Pressure 111/51 L 08/28/24 01:47 Pulse Oximetry 98 08/28/24 02:46 Oxygen Delivery BiPAP 08/28/24 00:15 Oxygen Flow Rate 10 08/28/24 00:15 Fraction of Inspired Oxygen 100 08/28/24 00:15 Lab Data 08/28/24 00:27 08/28/24 00:28 Labs: Lab Results 08/28/24 08/28/24 08/28/24 Range/Units 00:27 00:28 00:41 WBC 22.9 H (4.5-10.0) K/mm3 RBC 4.88 (4.2-5.4) M/mm3 Hgb 13.1 (12.0-15.0) g/dL Hct 45.3 (37.0-47.0) % MCV 92.8 (80-100) fl MCH 26.8 (26-34) pg MCHC 28.9 L (32-36) g/dl RDW 15.9 H (11.5-14.5) % Plt Count 369 (150-375) k/mm3 MPV 10.8 H (7.4-10.4) fl Immature Gran % (Auto) 0.8 H (0-0.5) % Neut % (Auto) 77.9 H (45.5-73.1) % Lymph % (Auto) 13.7 L (18.3-44.2) % [place] % (Auto) 5.0 (2.6-8.5) % Eos % (Auto) 2.0 (0-4.4) % Baso % (Auto) 0.6 (0.2-1.2) % Lymph # (Auto) 3.14 (0.9-3.2) K/mm3 [place] # (Auto) 1.1 H (0.1-0.6) K/mm3 Eos # (Auto) 0.5 H (0-0.3) K/mm3 Baso # (Auto) 0.1 (0.0-0.1) K/mm3 Abs Immat Gran (auto) 0.18 H (0.00-0.031) K/mm3 Absolute Neuts (auto) 17.9 H (1.3-6.7) K/mm3 Absolute Nucleated RBC 0.000 (0.0-0.012) K/mm3 Band Neutrophils % Not Reportable Nucleated RBC % 0.0 (0.0-0.2) % Platelet Estimate Adequate (Adequate) Anisocytosis 1+ Ovalocytes 1+ Schistocytes None seen PT 14.5 (11.1-14.7) Seconds INR 1.1 APTT 26.3 (22.3-36.8) Seconds Expiratory Pressure Pending Inspiratory Pressure Pending Sodium 143 (137-145) mmol/L Potassium 4.8 (3.4-5.0) mmol/L Chloride 103 (98-107) mmol/L Carbon Dioxide 30 (22-30) mmol/L Anion Gap 10 (4-12) mmol/L BUN 43 H (7-17) mg/dL Creatinine 1.40 H (0.7-1.0) mg/dL Estim Creat Clear Calc Not Reportable Estimated GFR 36 L (59 - ) Glucose 176 H (65-110) mg/dL Lactic Acid 2.5 H (0.7-2.0) mmol/L Calcium 9.5 (8.4-10.2) mg/dL Magnesium 3.5 H (1.6-2.3) mg/dL Total Bilirubin 0.4 (0.2-1.3) mg/dL AST 37 H (14-36) U/L ALT 29 (6-35) U/L Alkaline Phosphatase 99 (38-126) U/L Troponin I 0.031 (0.000-0.034) ng/mL NT-Pro-B Natriuret Pep 41053 H (19.9-100) pg/mL Total Protein 8.1 (6.3-8.2) g/dL Albumin 4.3 (3.5-5.1) g/dL ABG Data ABG results: 08/28/24 00:41 Puncture Site Right radial ABG pH 7.347 L ABG pCO2 50.9 H ABG pO2 138.9 H ABG PO2/FiO2 Ratio 1.39 ABG HCO3 27.3 H ABG O2 Saturation 98.6 ABG O2 Content 18.4 ABG Base Excess 0.9 A-a Gradient 523.2 Oxyhemoglobin 97.8 Total Hemoglobin 13.2 O2 Delivery Device Bipap O2 Liters/Min Not Reportable FiO2 100 Critical Care Time Critical Care Time Critical Care Time: Yes Total Critical Care Time: 75 (Please refer to [facility] for attestation) Discharge Plan Discharge Clinical Impression: Acute and chronic respiratory failure with hypoxia COPD (chronic obstructive pulmonary disease) Qualifiers: COPD type: COPD with acute exacerbation Qualified Code(s): J44.1 - Chronic obstructive pulmonary disease with (acute) exacerbation Patient Disposition: Still a Patient Condition: Improved Time of Disposition: 02:31
[2024-08-28 01:00] LABS: NT Pro B Type Natriuretic Pept 15600 pg/mL (19.9-100); Troponin I 0.031 ng/mL (0.000-0.034)
[2024-08-28] MEDS: cefTRIAXone 1 GM in SODIUM CHLORIDE 0.9% IV 50 ML 100 ML IVPB (01:28)
[2024-08-28] MEDS: AZITHROMYCIN IV 500 MG in SODIUM CHLORIDE 0.9% IV 250 ML IVPB ×2 (01:28→21:06)
[2024-08-28 01:30] LABS: Anisocytosis 1+; Ovalocytes 1+; Schistocytes None Seen
[2024-08-28 02:06] LABS: Influenza A QL RT-PCR Negative (Negative); Influenza B QL RT-PCR Negative (Negative); RSV RNA, RT-PCR Negative (Negative); SARS-CoV-2 RNA PCR Negative (Negative)
--- NOTE | 2024-08-28 03:13 | ADMGEN ---
This patient, Nikki Bonilla, was admitted to IMU Room 211-01. Patient/family oriented to hospital policies and general routines including ID bracelet, bed and alarms, visiting hours, pain management, procedures, bathroom and other care routines, personal items, smoking policy, room service/diet, and visiting hours. Information on how to activate the Rapid Response Team has been discussed. Patient/Family are encouraged to report perceived risks to care and to ask questions if they do not understand what they are told or what they should do.
--- NOTE | 2024-08-28 05:27 | P.HP_ITS ---
H&P: HPI History of Present Illness Date/Time: 08/28/24 05:27 Chief Complaint: Shortness of breath Narrative: 83-year-old female with a past medical history formal tobacco abuse, hypothyroidism, hyperlipidemia, insulin dependent diabetes mellitus, hypertension, CAD, CKD, COPD, chronic respiratory failure with continuous home O2 use. She presents a [facility] ER on 08/28/2024 as she was found to be hypoxic and tachypneic with shortness of breath and wheezing. She lives with her family member. Patient was placed on 10 L non-rebreather, given 2 g IV magnesium, epinephrine, 125 mg IV Solu-Medrol, 3 DuoNebs treatments and brought to the ER. At that time she was saturating 54% on non-rebreather. She was placed on BiPAP and had symptomatic relief. On the BiPAP with 100% FiO2 her pH was 7.347, pCO2 50.9, PO2 139, bicarb 27.3. She was also given a continue his DuoNeb treatment. Her WBC count 22.9, BUN 43, serum creatinine 1.40, quad viral screen negative, BNP 67111, troponin 0.031. Chest x-ray did not demonstrate any acute findings. The patient reiterated her DNR status. She otherwise denied fever, cough worse than her usual, sputum production, chest pain. 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 Prior echocardiogram 05/2023 demonstrated basal inferior septal wall severely hypokinetic to akinetic but this was not mentioned on the most recent echo Chronic kidney disease Stage IIIB Hypothyroidism Coronary artery disease Normal Lexiscan 10/2022 Gastroesophageal reflux disease Chronic obstructive pulmonary disease Hyperlipidemia Surgical History Surgical History History of cholecystectomy History of appendectomy History of partial hysterectomy Family History Family History Father Cerebrovascular accident Mother Diabetes mellitus Heart disease Sibling Throat cancer Renal failure Suicide Sibling Heart disease Social History Social History Social History: Surrogate medical decision maker: anjelica Ward. Code status: Do not intubate Smoking packs per day: 1 Smoking cigarettes per day: 20.0 Years smoked: 60 Smoking pack-years: 60.00 Smoking status: Former smoker Tobacco type: cigarettes Second hand tobacco smoke exposure: Yes Smoking end date: 05/01/1964 Alcohol intake: never Alcohol use details: Social Substance use: never Substance use type: does not use Do You Feel Safe in your Home?: Yes Lack of Transportation: No Lack of Food: Never True Current Housing: I Have Housing Concerned About Future Housing: No Difficulty Paying Gas/Electric Bills: No Difficulty Paying for Meds: No Currently Unemployed: No Education: High School Diploma/GED Difficulty w/ Childcare or Family Care: No Living arrangements: with family Additional living arrangements comments: Lives with son, [id number] and 3 grandchildren in [place]. 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 Gender identity (if verbalized by the patient): Female Spiritual care concerns: No Meds Home Medications and Allergies Home Medications ?Medication ?Instructions ?Recorded ?Confirmed ?Type insulin lispro 100 unit/mL See Protocol subcut TIDWM 05/15/21 08/28/24 History subcutaneous pen (Humalog KwikPen (U-100) Insulin) lovastatin 20 mg tablet 20 mg PO HS 05/15/21 08/28/24 History omeprazole 40 mg capsule,delayed 40 mg PO DAILY 05/15/21 08/28/24 History release aspirin 81 mg tablet,delayed 81 mg PO DAILY 09/26/21 08/28/24 History release levothyroxine 137 mcg tablet 137 mcg PO DAILY@0630 #30 tabs 06/04/23 08/28/24 Rx (Synthroid) levalbuterol tartrate 45 2 inh inhalation Q6H PRN shortness 07/05/23 08/28/24 Rx mcg/actuation aerosol inhaler of breath or wheezing #15 grams escitalopram oxalate 20 mg tablet 20 mg PO DAILY 07/14/23 08/28/24 History furosemide 40 mg tablet 40 mg PO BID 10/25/23 08/28/24 History montelukast 10 mg tablet 10 mg PO QPM 03/12/24 08/28/24 History guaifenesin 600 mg tablet, 600 mg PO Q12HR #60 tabs 03/16/24 08/28/24 Rx extended release 12 hr (Mucus Relief ER) ramelteon 8 mg tablet See Rx Instructions .Route 05/24/24 08/28/24 Rx .COMPLEX #90 tabs Breo Ellipta 100 mcg-25 mcg/dose See Rx Instructions .Route 05/29/24 08/28/24 Rx powder for inhalation (fluticasone .COMPLEX #180 ea furoate-vilanterol) tiotropium bromide 2.5 1 inh inhalation .twice a day #4 06/14/24 08/28/24 Rx mcg/actuation mist for inhalation grams glucagon 3 mg/actuation nasal spray 3 mg intranasal ONCE #2 ea 07/25/24 08/28/24 Rx insulin glargine 100 unit/mL (3 10 unit (0.1 mL) subcut HS #15 mL 07/25/24 08/28/24 Rx mL) subcutaneous pen (Lantus Solostar U-100 Insulin) metoprolol tartrate 25 mg tablet 25 mg PO BID #180 tabs 08/16/24 08/28/24 Rx alprazolam 0.25 mg tablet 0.5 mg PO QID PRN Anxiety 08/28/24 08/28/24 History losartan 50 mg tablet 100 mg PO DAILY 08/28/24 08/28/24 History Allergies Allergy/AdvReac Type Severity Reaction Status Date / Time No Known Allergies Allergy Verified 08/01/24 11:05 Vital Signs Vital Signs - 24 hr 08/28/24 00:15 08/28/24 00:15 08/28/24 00:36 Temperature 97.9 F Pulse Rate 65 65 Respiratory Rate 29 H 30 H Blood Pressure 138/78 Pulse Oximetry 54 L 97 100 Oxygen Delivery High Flow Nasal Cannula BiPAP Oxygen Flow Rate 10 Fraction of Inspired Oxygen 100 08/28/24 00:40 08/28/24 00:41 08/28/24 00:45 Temperature Pulse Rate 67 62 66 Respiratory Rate 30 H 20 28 H Blood Pressure 162/54 H Pulse Oximetry 94 97 97 Oxygen Delivery Oxygen Flow Rate Fraction of Inspired Oxygen 08/28/24 00:47 08/28/24 01:00 08/28/24 01:02 Temperature Pulse Rate 63 59 L 60 Respiratory Rate 24 H 25 H 28 H Blood Pressure 171/55 H 139/44 L Pulse Oximetry 96 98 95 Oxygen Delivery Oxygen Flow Rate Fraction of Inspired Oxygen 08/28/24 01:16 08/28/24 01:19 08/28/24 01:30 Temperature Pulse Rate 63 66 Respiratory Rate 28 H 25 H Blood Pressure 124/57 L Pulse Oximetry 90 100 100 Oxygen Delivery Oxygen Flow Rate Fraction of Inspired Oxygen 08/28/24 01:31 08/28/24 01:32 08/28/24 01:45 Temperature Pulse Rate 64 67 70 Respiratory Rate 25 H 25 H 20 Blood Pressure 142/50 H Pulse Oximetry 100 100 100 Oxygen Delivery Oxygen Flow Rate Fraction of Inspired Oxygen 08/28/24 01:47 08/28/24 01:48 08/28/24 02:00 Temperature Pulse Rate 69 68 71 Respiratory Rate 27 H 25 H 24 H Blood Pressure 111/51 L Pulse Oximetry 98 100 99 Oxygen Delivery Oxygen Flow Rate Fraction of Inspired Oxygen 08/28/24 02:16 08/28/24 02:22 08/28/24 02:30 Temperature Pulse Rate 68 66 65 Respiratory Rate 18 24 H 25 H Blood Pressure 104/49 L 111/44 L Pulse Oximetry 98 98 99 Oxygen Delivery Oxygen Flow Rate Fraction of Inspired Oxygen 08/28/24 02:31 08/28/24 02:46 08/28/24 02:55 Temperature 98.7 F Pulse Rate 63 64 64 Respiratory Rate 25 H 26 H 28 H Blood Pressure 123/44 L Pulse Oximetry 98 98 97 Oxygen Delivery Oxygen Flow Rate Fraction of Inspired Oxygen 08/28/24 03:00 08/28/24 03:00 08/28/24 03:00 Temperature Pulse Rate 62 62 62 Respiratory Rate 24 H Blood Pressure Pulse Oximetry 97 Oxygen Delivery BiPAP Oxygen Flow Rate Fraction of Inspired Oxygen 08/28/24 03:04 Temperature Pulse Rate 65 Respiratory Rate 30 H Blood Pressure Pulse Oximetry 99 Oxygen Delivery Oxygen Flow Rate Fraction of Inspired Oxygen Exam Const: General: comfortable and no acute distress Other: A&O x3 HENMT: Mouth: Yes moist mucous membranes Eyes: Pupils: Equal, round and reactive pupils present Neck: Neck: supple Resp: Effort & Inspection: normal respiratory effort Other: Diminished lung sounds, scant dry crackles, slight expiratory wheeze Cardio: Rate: regular rate Rhythm: regular rhythm Heart sounds: no gallops, no murmurs and no rubs GI: Inspection: non-distended GI Palp: Yes Soft to palpation Neuro: Motor exam (neuro): 5/5 motor strength present throughout Extrem: General: no edema H&P: Results Labs Labs: Short CBC 08/28/24 Range/Units 00:27 WBC 22.9 H (4.5-10.0) K/mm3 Hgb 13.1 (12.0-15.0) g/dL Hct 45.3 (37.0-47.0) % Plt Count 369 (150-375) k/mm3 BMP 08/28/24 00:28 Sodium 143 Potassium 4.8 Chloride 103 Carbon Dioxide 30 BUN 43 H Creatinine 1.40 H Glucose 176 H Calcium 9.5 Cardiac Enzymes 08/28/24 Range/Units 00:28 Troponin I 0.031 (0.000-0.034) ng/mL Liver Function 08/28/24 Range/Units 00:28 Total Bilirubin 0.4 (0.2-1.3) mg/dL AST 37 H (14-36) U/L ALT 29 (6-35) U/L Alkaline Phosphatase 99 (38-126) U/L Albumin 4.3 (3.5-5.1) g/dL Assessment and Plan Assessment and plan (1) Diastolic congestive heart failure: Code(s): I50.30 - Unspecified diastolic (congestive) heart failure Status: Acute (2) Insulin dependent diabetes mellitus: Status: Acute (3) COPD exacerbation: Code(s): J44.1 - Chronic obstructive pulmonary disease with (acute) exacerbation Status: Acute (4) Acute and chronic respiratory failure with hypoxia: Code(s): J96.21 - Acute and chronic respiratory failure with hypoxia Status: Acute Plan 83-year-old female with a past medical history formal tobacco abuse, hypothyroidism, hyperlipidemia, insulin dependent diabetes mellitus, hypertension, CAD, CKD, COPD, chronic respiratory failure with continuous home O2 use. She presents a [facility] ER on 08/28/2024 as she was found to be hypoxic and tachypneic with shortness of breath and wheezing. She lives with her family member. Patient was placed on 10 L non-rebreather, given 2 g IV magnesium, epinephrine, 125 mg IV Solu-Medrol, 3 DuoNebs treatments and brought to the ER. At that time she was saturating 54% on non-rebreather. She was yanet kim on BiPAP and had symptomatic relief. On the BiPAP with 100% FiO2 her pH was 7.347, pCO2 50.9, PO2 139, bicarb 27.3. She was also given a continuous DuoNeb treatment, azithromycin and ceftriaxone. Her WBC count 22.9, BUN 43, serum creatinine 1.40, quad viral screen negative, BNP 14380, troponin 0.031. Chest x-ray did not demonstrate any acute findings. The patient reiterated her DNR status. She otherwise denied fever, cough worse than her usual, sputum production, chest pain. ----- Acute on chronic hypoxic respiratory failure COPD exacerbation -prior smoker, continue BiPAP currently on 100% FiO2 and being weaned down. Continue DuoNebs q.4 hours, Solu-Medrol 125 mg IV q.8 hours. Quad viral screen negative. Diastolic heart failure -does not appear to be in acute decompensation in spite of elevated BNP on admission. Continue to monitor closely. -resume SOFTWARE QUALITY ASSURANCE ANALYST metoprolol, Lasix 40 mg p.o. b.i.d. -daily weights, strict intake/output, heart healthy diet CAD: Resume SOFTWARE QUALITY ASSURANCE ANALYST aspirin, lovastatin Hypertension: Resume SOFTWARE QUALITY ASSURANCE ANALYST metoprolol, losartan, Lasix Insulin-dependent diabetes mellitus: Resume SOFTWARE QUALITY ASSURANCE ANALYST Lantus 10 units q.h.s., sliding scale with Accu-Cheks a.c. HS DNR. Patient lives with family member. Uses oxygen continuously. Heart healthy diet. Resume SOFTWARE QUALITY ASSURANCE ANALYST Protonix. Saline lock IV. SCDs. Hospitalist [facility] Advance Care Plan I have confirmed that the patient's Advanced Care Plan is present, code status is documented, or surrogate decision maker is listed in patient medical record.: Yes Medication Reconciliation I have utilized all available resources to obtain, update and review the patients current medications (includes all prescriptions, OTC, herbals, cannabis, and nutritional supplements).: Yes
[2024-08-28] MEDS: LEVOTHYROXINE SODIUM 25 MCG TABLET PO (06:14)
[2024-08-28] MEDS: LEVOTHYROXINE SODIUM 112 MCG TABLET PO (06:15)
[2024-08-28 07:01] LABS: Hematocrit 41.3 % (37.0-47.0); Hemoglobin 11.7 g/dL (12.0-15.0); Mean Corpuscular HGB Conc 28.3 g/dl (32-36); Mean Corpuscular Hemoglobin 26.9 pg (26-34); Mean Corpuscular Volume 94.9 fl (80-100); Platelet Count Result 294 k/mm3 (150-375); Red Blood Count 4.35 M/mm3 (4.2-5.4); White Blood Count 24.1 K/mm3 (4.5-10.0)
[2024-08-28 07:08] LABS: Anion Gap 8 mmol/L (4-12); Blood Urea Nitrogen 43 mg/dL (7-17); Calcium 9.2 mg/dL (8.4-10.2); Carbon Dioxide 32 mmol/L (22-30); Chloride 105 mmol/L (98-107); Estimated CRCL calculation 19 ml/min; Estimated Glomerular Filt Rate 35; Glucose 122 mg/dL (65-110); Magnesium 3.0 mg/dL (1.6-2.3); Potassium 4.4 mmol/L (3.4-5.0); Sodium 145 mmol/L (137-145)
[2024-08-28 07:21] LABS: Anisocytosis 1+; Band Neutrophils Percent 13 % (0-6); Lymphocytes Absolute Manual 0.96 K/mm3 (1.1-4.5); Lymphocytes Percent Manual 4 % (18-44); Neutrophils Absolute Manual 23.13 K/mm3 (1.3-6.7); Neutrophils Percent Manual 83 % (46-73); Schistocytes None Seen; Total Cells Counted 100
[2024-08-28] MEDS: FLUTICASONE/SALMETEROL 115-21 MCG INHALER 1 PUFF 2 PUFF INHALATION (07:41)
[2024-08-28] MEDS: IPRATROPIUM 0.5 MG/ALBUTEROL SULFATE 2.5 MG AMPUL.NEB 3 ML INHALATION ×4 (07:41→20:06)
[2024-08-28 08:04] LABS: Procalcitonin 0.3 ng/mL
--- NOTE | 2024-08-28 09:05 | PM.IMPN ---
Progress Note: A&P Assessment and Plan (1) Diastolic congestive heart failure: Code(s): I50.30 - Unspecified diastolic (congestive) heart failure Status: Acute (2) Insulin dependent diabetes mellitus: Status: Acute (3) COPD exacerbation: Code(s): J44.1 - Chronic obstructive pulmonary disease with (acute) exacerbation Status: Acute (4) Acute and chronic respiratory failure with hypoxia: Code(s): J96.21 - Acute and chronic respiratory failure with hypoxia Status: Acute Plan 83-year-old female with a past medical history formal tobacco abuse, hypothyroidism, hyperlipidemia, insulin dependent diabetes mellitus, hypertension, CAD, CKD, COPD, chronic respiratory failure with continuous home O2 use. She presents a [facility] ER on 08/28/2024 as she was found to be hypoxic and tachypneic with shortness of breath and wheezing. She lives with her family member. Patient was placed on 10 L non-rebreather, given 2 g IV magnesium, epinephrine, 125 mg IV Solu-Medrol, 3 DuoNebs treatments and brought to the ER. At that time she was saturating 54% on non-rebreather. She was placed on BiPAP and had symptomatic relief. On the BiPAP with 100% FiO2 her pH was 7.347, pCO2 50.9, PO2 139, bicarb 27.3. She was also given a continuous DuoNeb treatment, azithromycin and ceftriaxone. Her WBC count 22.9, BUN 43, serum creatinine 1.40, quad viral screen negative, BNP 17083, troponin 0.031. Chest x-ray did not demonstrate any acute findings. The patient reiterated her DNR status. She otherwise denied fever, cough worse than her usual, sputum production, chest pain. Acute on chronic hypoxic respiratory failure with hypoxemia and hypercapnia COPD exacerbation Community-acquired pneumonia on BiPAP currently on 100% FiO2 and being weaned down. Continue DuoNebs q.4 hours, Solu-Medrol 125 mg IV q.8 hours. Quad viral screen negative. X-ray showed increased interstitial patchy infiltrate bilateral lower lobes. Patient has leukocytosis, suspecting acute bacterial bronchitis and pneumonia Start azithromycin ceftriaxone IV Consult pulmonology for evaluation treatment Diastolic heart failure compensated Possible decompensated due to COPD exacerbation, Echocardiogram showed EF 65-70%, grade 1 diastolic dysfunction Continue to monitor closely. Continue home medications metoprolol, Lasix 40 mg p.o. b.i.d. -daily weights, strict intake/output, heart healthy diet CKD stage IIIB Elevated BUN creatinine ratio Slightly above baseline CAD: Denies chest pain Resume COINING PRESS OPERATOR aspirin, lovastatin GERD Continue Protonix 40 mg daily p.o. Hypertension: Resume COINING PRESS OPERATOR metoprolol, losartan, Lasix Insulin-dependent diabetes mellitus: Resume COINING PRESS OPERATOR Lantus 10 units q.h.s., sliding scale with Accu-Cheks a.c. HS DNR. Patient lives with family member. . Subjective Date/time seen: 08/28/24 09:05 Interval history: I saw exam patient presents of patient's granddaughter, patient is off BiPAP, patient still has a cough and shortness breath but feels improving. Denies chest pain abdomen pain nausea vomiting diarrhea Exam Narrative: GENERAL: Pleasant, in no acute distress. Well-nourished. - EYES: EOMI. Anicteric. - HENT: Moist mucous membranes. - LUNGS: Coarse breath sound bilaterally - CARDIOVASCULAR: Regular rate and rhythm. No murmur. No JVD. - ABDOMEN: Soft, non-tender and non-distended. No palpable masses. - EXTREMITIES: No edema. Peripheral pulses 2+. Non-tender. - NEUROLOGIC: No focal neurological deficits. CN II-XII grossly intact. - PSYCHIATRIC: Awake, Alert and oriented x 3. Appropriate mood and affect. - SKIN: No rashes or lesions. Warm. - LYMPH: No cervical lymphadenopathy. Objective Data Vital Signs Vital Signs: Vital Signs - 24 hr 08/28/24 00:15 08/28/24 00:15 08/28/24 00:36 Temperature 97.9 F Pulse Rate 65 65 Respiratory Rate 29 H 30 H Blood Pressure 138/78 Pulse Oximetry 54 L 97 100 Oxygen Delivery High Flow Nasal Cannula BiPAP Oxygen Flow Rate 10 Fraction of Inspired Oxygen 100 08/28/24 00:40 08/28/24 00:41 08/28/24 00:45 Temperature Pulse Rate 67 62 66 Respiratory Rate 30 H 20 28 H Blood Pressure 162/54 H Pulse Oximetry 94 97 97 Oxygen Delivery Oxygen Flow Rate Fraction of Inspired Oxygen 08/28/24 00:47 08/28/24 01:00 08/28/24 01:02 Temperature Pulse Rate 63 59 L 60 Respiratory Rate 24 H 25 H 28 H Blood Pressure 171/55 H 139/44 L Pulse Oximetry 96 98 95 Oxygen Delivery Oxygen Flow Rate Fraction of Inspired Oxygen 08/28/24 01:16 08/28/24 01:19 08/28/24 01:30 Temperature Pulse Rate 63 66 Respiratory Rate 28 H 25 H Blood Pressure 124/57 L Pulse Oximetry 90 100 100 Oxygen Delivery Oxygen Flow Rate Fraction of Inspired Oxygen 08/28/24 01:31 08/28/24 01:32 08/28/24 01:45 Temperature Pulse Rate 64 67 70 Respiratory Rate 25 H 25 H 20 Blood Pressure 142/50 H Pulse Oximetry 100 100 100 Oxygen Delivery Oxygen Flow Rate Fraction of Inspired Oxygen 08/28/24 01:47 08/28/24 01:48 08/28/24 02:00 Temperature Pulse Rate 69 68 71 Respiratory Rate 27 H 25 H 24 H Blood Pressure 111/51 L Pulse Oximetry 98 100 99 Oxygen Delivery Oxygen Flow Rate Fraction of Inspired Oxygen 08/28/24 02:16 08/28/24 02:22 08/28/24 02:30 Temperature Pulse Rate 68 66 65 Respiratory Rate 18 24 H 25 H Blood Pressure 104/49 L 111/44 L Pulse Oximetry 98 98 99 Oxygen Delivery Oxygen Flow Rate Fraction of Inspired Oxygen 08/28/24 02:31 08/28/24 02:46 08/28/24 02:55 Temperature 98.7 F Pulse Rate 63 64 64 Respiratory Rate 25 H 26 H 28 H Blood Pressure 123/44 L Pulse Oximetry 98 98 97 Oxygen Delivery Oxygen Flow Rate Fraction of Inspired Oxygen 08/28/24 03:00 08/28/24 03:00 08/28/24 03:00 Temperature Pulse Rate 62 62 62 Respiratory Rate 24 H Blood Pressure Pulse Oximetry 97 Oxygen Delivery BiPAP Oxygen Flow Rate Fraction of Inspired Oxygen 08/28/24 03:04 08/28/24 06:00 08/28/24 07:40 Temperature Pulse Rate 65 68 66 Respiratory Rate 30 H 23 H Blood Pressure Pulse Oximetry 99 100 Oxygen Delivery Oxygen Flow Rate Fraction of Inspired Oxygen 08/28/24 07:40 08/28/24 07:48 08/28/24 07:48 Temperature 98.7 F Pulse Rate 66 67 68 Respiratory Rate 23 H 21 H 23 H Blood Pressure 116/48 L Pulse Oximetry 100 Oxygen Delivery Oxygen Flow Rate Fraction of Inspired Oxygen Intake/Output Intake/Output: Intake & Output 08/25/24 08/26/24 08/27/2425 23:59 23:59 23:59 23:59 Intake Total 400 Balance 400 Meds/Results Medications: Active Medications Generic Name Dose Route Start Last Admin Trade Name Gus PRN Reason Stop Dose Admin Albuterol/Ipratropium 3 ml 08/28/24 08:00 08/28/24 07:41 Ipratropium 0.5 Mg/Albuterol Sulfate 2.5 Mg Ampul.Neb 3 Ml INHALATION 3 ml Q4HRT [facility] Administration Alprazolam 0.5 mg 08/28/24 05:23 Alprazolam (*Crx) 0.5 Mg Tablet PO QID PRN Anxiety Aspirin 81 mg 08/28/24 09:00 Aspirin 81 Mg Enteric Tablet PO DAILY [facility] Escitalopram Oxalate 20 mg 08/28/24 09:00 Escitalopram Oxalate 10 Mg Tablet PO DAILY [facility] Furosemide 40 mg 08/28/24 09:00 Furosemide 40 Mg Tablet PO BID [facility] Guaifenesin 600 mg 08/28/24 09:00 Guaifenesin 12 Hr 600 Mg Tabcr PO Q12HR [facility] Insulin Glargine 10 units 08/28/24 21:00 Insulin Glargine (*Bkc) 100 Units/Ml SUB-Q HS [facility] Levothyroxine Sodium 112 mcg 08/28/24 06:30 08/28/24 06:15 Levothyroxine Sodium 112 Mcg Tablet PO 112 mcg DAILY@0630 [facility] Administration Levothyroxine Sodium 25 mcg 08/28/24 06:30 08/28/24 06:14 Levothyroxine Sodium 25 Mcg Tablet PO 25 mcg DAILY@0630 [facility] Administration Losartan Potassium 100 mg 08/28/24 09:00 Losartan Potassium 50 Mg Tablet PO DAILY [facility] Lovastatin 20 mg 08/28/24 21:00 Lovastatin 20 Mg Tablet PO HS [facility] Methylprednisolone Sodium Succinate 125 mg 08/28/24 06:00 08/28/24 06:14 Methylprednisolone Sod Succ 125 Mg Vial IV PUSH 125 mg Q8HR [facility] Administration Metoprolol Tartrate 25 mg 08/28/24 09:00 Metoprolol Tartrate 25 Mg Tablet PO Q12HR [facility] Montelukast Sodium 10 mg 08/28/24 18:00 Montelukast Sodium 10 Mg Tablet PO QPM [facility] Pantoprazole Sodium 40 mg 08/28/24 09:00 Pantoprazole 40 Mg Tablet PO BID [facility] Fluticasone/Salmeterol 2 puff 08/28/24 08:00 08/28/24 07:41 Fluticasone/Salmeterol 115-21 Mcg Inhaler 1 Puff INHALATION 2 puff Q12HRT [facility] Administration Umeclidinium [place] 1 puff 08/28/24 08:00 Umeclidinium [place] 62.5 Mcg Ellipta INHALATION DAILYRT [facility] Radiology Results: ITS Impressions Chest X-Ray 08/28/24 05:53 Impression: Clear lungs. Possible COPD. Labs Labs: Laboratory Results - last 24 hr 08/28/24 08/28/24 08/28/24 00:27 00:28 00:41 WBC 22.9 H RBC 4.88 Hgb 13.1 Hct 45.3 MCV 92.8 MCH 26.8 MCHC 28.9 L RDW 15.9 H Plt Count 369 MPV 10.8 H Immature Gran % (Auto) 0.8 H Neut % (Auto) 77.9 H Lymph % (Auto) 13.7 L [place] % (Auto) 5.0 Eos % (Auto) 2.0 Baso % (Auto) 0.6 Lymph # (Auto) 3.14 [place] # (Auto) 1.1 H Eos # (Auto) 0.5 H Baso # (Auto) 0.1 Abs Immat Gran (auto) 0.18 H Absolute Neuts (auto) 17.9 H Absolute Nucleated RBC 0.000 Total Counted Neutrophils % (Manual) Band Neutrophils % Not Reportable Lymphocytes % (Manual) Nucleated RBC % 0.0 Abs Neuts (Manual) Abs Lymphs (Manual) Platelet Estimate Adequate Anisocytosis 1+ Ovalocytes 1+ Schistocytes None seen PT 14.5 INR 1.1 APTT 26.3 Puncture Site Right radial ABG pH 7.347 L ABG pCO2 50.9 H ABG pO2 138.9 H ABG PO2/FiO2 Ratio 1.39 ABG HCO3 27.3 H ABG O2 Saturation 98.6 ABG O2 Content 18.4 ABG Base Excess 0.9 A-a Gradient 523.2 Oxyhemoglobin 97.8 Total Hemoglobin 13.2 O2 Delivery Device Bipap O2 Liters/Min Not Reportable FiO2 100 Sodium 143 Potassium 4.8 Chloride 103 Carbon Dioxide 30 Anion Gap 10 BUN 43 H Creatinine 1.40 H Estim Creat Clear Calc Not Reportable Estimated GFR 36 L Glucose 176 H Lactic Acid 2.5 H Calcium 9.5 Magnesium 3.5 H Total Bilirubin 0.4 AST 37 H ALT 29 Alkaline Phosphatase 99 Troponin I 0.031 NT-Pro-B Natriuret Pep 74231 H Total Protein 8.1 Albumin 4.3 Procalcitonin Influenza A (RT-PCR) Influenza B (RT-PCR) RSV (RT-PCR) SARS-CoV-2 RNA (RT-PCR) 08/28/24 08/28/24 01:25 03:11 WBC 24.1 H RBC 4.35 Hgb 11.7 L Hct 41.3 MCV 94.9 MCH 26.9 MCHC 28.3 L RDW 16.0 H Plt Count 294 MPV 11.7 H Immature Gran % (Auto) Not Reportable Neut % (Auto) Not Reportable Lymph % (Auto) Not Reportable [place] % (Auto) Not Reportable Eos % (Auto) Not Reportable Baso % (Auto) Not Reportable Lymph # (Auto) Not Reportable [place] # (Auto) Not Reportable Eos # (Auto) Not Reportable Baso # (Auto) Not Reportable Abs Immat Gran (auto) Not Reportable Absolute Neuts (auto) Not Reportable Absolute Nucleated RBC Not Reportable Total Counted 100 Neutrophils % (Manual) 83 H Band Neutrophils % 13 H Lymphocytes % (Manual) 4 L Nucleated RBC % Not Reportable Abs Neuts (Manual) 23.13 H Abs Lymphs (Manual) 0.96 L Platelet Estimate Adequate Anisocytosis 1+ Ovalocytes Schistocytes None seen PT INR APTT Puncture Site ABG pH ABG pCO2 ABG pO2 ABG PO2/FiO2 Ratio ABG HCO3 ABG O2 Saturation ABG O2 Content ABG Base Excess A-a Gradient Oxyhemoglobin Total Hemoglobin O2 Delivery Device O2 Liters/Min FiO2 Sodium 145 Potassium 4.4 Chloride 105 Carbon Dioxide 32 H Anion Gap 8 BUN 43 H Creatinine 1.45 H Estim Creat Clear Calc 19 Estimated GFR 35 L Glucose 122 H Lactic Acid 2.0 Calcium 9.2 Magnesium 3.0 H Total Bilirubin AST ALT Alkaline Phosphatase Troponin I NT-Pro-B Natriuret Pep Total Protein Albumin Procalcitonin 0.3 Influenza A (RT-PCR) Negative Influenza B (RT-PCR) Negative RSV (RT-PCR) Negative SARS-CoV-2 RNA (RT-PCR) Negative
[2024-08-28] MEDS: guaiFENesin 12 HR 600 MG TABCR PO (09:07)
[2024-08-28] MEDS: ESCITALOPRAM OXALATE 10 MG TABLET 20 MG PO (09:08)
[2024-08-28] MEDS: LOSARTAN POTASSIUM 50 MG TABLET 100 MG PO (09:08)
[2024-08-28] MEDS: FUROSEMIDE 40 MG TABLET PO (09:08)
[2024-08-28] MEDS: PANTOPRAZOLE 40 MG TABLET PO ×2 (09:08→18:47)
[2024-08-28] MEDS: METOPROLOL TARTRATE 25 MG TABLET PO ×2 (09:08→21:03)
[2024-08-28] MEDS: ASPIRIN 81 MG ENTERIC TABLET PO (09:08)
[2024-08-28] MEDS: INSULIN ASPART (*BKC) 100 UNITS/ML SUB-Q ×2 (12:38→21:05)
[2024-08-28] MEDS: INSULIN GLARGINE (*BKC) 100 UNITS/ML 10 UNITS SUB-Q ×2 (13:04→21:04)
[2024-08-28] MEDS: cefTRIAXone 2 GM in SODIUM CHLORIDE 0.9% IV 100 ML 200 ML IVPB (13:07)
[2024-08-28 13:26] LABS: Hemoglobin A1C 7.5 % (<5.7)
--- NOTE | 2024-08-28 13:57 | P.CONPL_ITS ---
Assessment and Plan Assessment and plan (1) COPD (chronic obstructive pulmonary disease): Qualifiers: COPD type: COPD with acute exacerbation Qualified Code(s): J44.1 - Chronic obstructive pulmonary disease with (acute) exacerbation Code(s): J44.9 - Chronic obstructive pulmonary disease, unspecified Status: Acute Assessment and Plan: Gold grade 3 group E COPD 67 PY tobacco use, quit 02/2019. 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 06/22/2024: PFTs with FEV1 0.81 L, 49% predicted, ratio 48%, DLCO 15% and when corrected for alveolar volume 29%. Positive bronchodilator response. PFTs 11/03/2019 with a moderate obstructive abnormality with an FEV1 0.93 L, 64% predicted. FEV1: FVC ratio 42%. No bronchodilator response. Air trapping, Severely decreased DLCO and remain moderately decreased when adjusted for alveolar volume. CT scan of chest 04/10/2019 and most recently on 05/01/2024 with severe centrilobular emphysema apices greater than bases. Chronic hypoxemic respiratory failure requiring 6 L at rest and 9 with activity per home O2 assessment 05/03/2024. Require 6 L nasal cannula at night per overnight oximetry 05/02/2024. at home requiring 8.5 L nasal cannula with rest saturations 86-92%, 8.5 L with activity saturations 86%. 05/01/2024 ABG on Airvo 35 L 63% pH 7.44/41/80. echocardiogram 03/14/2024 with LVEF 65-70, grade 1 diastolic dysfunction, moderately enlarged left atrium normal RV size and function. Normal right atrial size. Trace tricuspid valve regurg with PASP 23. Patient presents now with Hypoxemic respiratory failure leading to shortness of breath without cough, phlegm production or change in phlegm volume or color. She was in respiratory distress and placed on BiPAP with blood gas of 7.35/51/139. She had a leukocytosis, clear chest x-ray and a D-dimer that is positive. She was treated with magnesium, DuoNebs, epinephrine, Solu-Medrol, ceftriaxone and azithromycin. After 12 hours, patient denies fever, chills, rigors, cough, phlegm production or chest pain. She is on 12 L nasal cannula saturations 92%. She is in no respiratory distress and has no wheezing. Patient tells me she is breathing normal right now. patient tells me she gained 5 lb in the last week, had swelling 1 [place] [id number]. procalcitonin 0.3. COVID, influenza, RSV RT PCR assay negative. etiology of hypoxemic respiratory failure includes PE, mucus plugging, COPD exacerbation, fluid overload and or pneumonia Plan: I will order CT angiogram of the chest. Will hold Lasix at this time as she will receive a dye load. I will treat for mucus plugging with guaifenesin 1200 mg p.o. b.i.d, DuoNebs q.4 hours. Will treat for possible COPD exacerbation with Solu-Medrol 20 mg IV Q 6. Continue montelukast 10 Q.day. continue ceftriaxone and azithromycin day 1. I will send a respiratory pathogen panel, urine for Legionella, urine for pneumococcal disease and a serum mycoplasma IgM. (2) Acute and chronic respiratory failure with hypoxia: Code(s): J96.21 - Acute and chronic respiratory failure with hypoxia Status: Acute Assessment and Plan: Chronic hypoxemic respiratory failure From COPD requiring 6 L at rest and 9 with activity per home O2 assessment 05/03/2024. Require 6 L nasal cannula at night per overnight oximetry 05/02/2024. At home requiring 8.5 L nasal cannula with rest saturations 86-92%, 8.5 L with activity saturations 86%. 05/01/2024 ABG on Airvo 35 L 63% pH 7.44/41/80. I have previously talked to [facility] about 210 L high-flow concentrator so that would be hooked up in series to give her high flow and at that time they thought she could be controlled with 1 10 L oxygen concentrator and a nasal cannula reservoir for Oxymizer. 08/28/24: Patient required BiPAP in the emergency for room for hypoxemic respiratory failure and work of breathing. ABG on BiPAP 12, pressures 14/8 and 100% was 7.35/51/139. Currently the patient is on 12 L nasal cannula saturations 92%. Plan: Goal saturation 90-94%. Patient can wear her BiPAP with the above settings on a p.r.n. basis during the day and night. Once the patient is improved and close to her baseline will repeat ABG after off being off BiPAP for 24 hours to reassess for chronic hypercarbic respiratory failure. History of Present Illness History of Present Illness Consult date: 08/28/24 Chief complaint: Acute hypoxic respiratory failure, COPD Narrative: 08/28/2024: This is a new pulmonary consult for COPD exacerbation. 83-year-old with a history of COPD with hypoxic respiratory failure on 8.5 L with activity, rest and sleep, hypertension, diabetes, hyperlipidemia, hypothyroidism, CKD. patient is followed in the pulmonary clinic and last seen on 06/14/2024. she had dyspnea on exertion walking 5-6 steps worse over the last year, makes phlegm 1 time a week. Wearing 9 L at rest with saturations 92-93% and wearing 9 L with activity saturations 77-81. Wears 9 L at night. Her CAT score was 20. She was taking Breo Ellipta 1 puff a day, montelukast 10, DuoNebs q.6 and guaifenesin 600 b.i.d.. She is not smoking. I ordered an alpha 1 anti trypsin genotype, added Spiriva Respimat 2.5 twice a day. [facility] gave her headaches. [employer] 600 dollars a month and could not afford. I ordered PFTs, referred her to pulmonary rehabilitation told her to increase to 10 and if she was still less than 88% would get her a 2nd high-flow oxygen concentrator. Family call me back and said she was hypoxemic on 9.5 L and I contacted the [facility] to give her a 2nd 10 L flow to maintain saturations 89% or greater. That day the [employer] called me and said they would like to try an Oxymizer nasal cannula. alpha 1 antitrypsin MZ with a level of 115 which was normal. 07/20/24 1253 P atient states that Pulmonary Rehab is like $40 a week for 8 weeks and she can not afford that. 07/12/2024: PFTs with a severe obstructive abnormality, FEV1 0.80 L, 49% predicted, ratio 48%, positive bronchodilator response. Unable to complete plethysmography. DLCO severely decreased when adjusted for alveolar volume. In comparison to previous PFTs on 11/03/2019 there has been a greater than anticipated decrease in the FVC, FEV1 and diffusing capacity. Over the last 1 and half months the patient tells me that she was doing better. She was more active around the house and the granddaughter lives next her confirms this. The patient was wearing 8.5 L at rest with saturations 86- 92%. The patient was wearing 8 9.5 L with activity and saturations were closer to 86 and she uses a scooter to get around the house. Over the last 2 weeks the patient states she gained 5 lb in last week and 1 day with pedal edema. Patient was in her usual state of health on 08/27 and said that she ate dinner and was normal. She was sitting on the side of her bed and on 8.5 L her saturations decreased to 81%. She denied fever, chills, rigors, cough, change in phlegm. She called her granddaughter who came over and 2 minutes and put her up to 10 L and her saturations were 79%. She then tried to change her to the tank with the Oxymizer nasal cannula her saturations on 6 L were 74% and on 8 L were 79%. EMS was called. The granddaughter noted that her breathing status was labored and she was breathing with her stomach. When EMS arrived her saturations were low and she was placed on 10 L non-rebreather. Patient was brought to the emergency room in respiratory distress, saturations on 10 L non- rebreather 54% blood pressure 138/78, respiratory rate 29 and Love patient was placed on BiPAP rate of 12, pressures 14/8 and 100% FiO2 and improved. Her white blood cell count was 22.9, her creatinine was 1.40, [place] [address], her chest x-ray showed clear lungs. COVID influenza and RSV RT PCR negative. Procalcitonin 0.3. ABG on BiPAP with settings above 7.35/51/139. Patient was treated with magnesium, our lung nebulizer, epinephrine, Solu-Medrol 125, ceftriaxone and azithromycin. Patient was admitted to the floor. D-dimer 0.68 positive. Currently patient denies fever, chills, rigors, cough, phlegm production or chest pain. She is on 12 L nasal cannula saturations 92%. She is in no respiratory distress and has no wheezing. Patient tells me she is breathing normal right now. DATA: 07/12/2024: Alpha 1 anti trypsin level 115, normal 83-199. No intervention at this time. 07/12/2024: This is a pulmonary function test with pre and post-bronchodilator spirometry, and diffusing capacity. The test was performed and results interpreted in accordance with the 2019 and 2005 ATS/ERS Task Force guidelines respectively using the Global Lung Function Initiative-2012 reference equations. Patient demonstrated good effort and cooperation. Reproducibility criteria were met. Of note, the patient was unable to complete lung volume testing. Findings: Spirometry: There is decreased maximal expiratory flows at all lung volumes with a concave expiratory flow tracing. The contour the inspiratory flow tracing is truncated. The pre bronchodilator FVC is 1.68 L, 81% predicted. The pre bronchodilator FEV1 is 0.80 L, 49% predicted. The pre bronchodilator FEV1: FVC ratio is 48%. The post bronchodilator FVC is 2.09 L, representing a 24% increase. The post bronchodilator FEV1 is 0.86 L, representing an 8% increase. The post bronchodilator FEV1: FVC ratio is 41%. Diffusing capacity: The diffusing capacity unadjusted for hemoglobin and carboxyhemoglobin is 2.2, 15% predicted. The diffusing capacity adjusted for alveolar volume is 0.95, 29% predicted. In comparison to previous pulmonary function testing on 11/03/2019 the post bronchodilator FVC is decreased from 2.39 L to 2.09 L. The post bronchodilator FEV1 is decreased from 1.01 L to 0.86 L. the diffusing capacity unadjusted for hemoglobin and carboxyhemoglobin is decreased from 4.8 to 2.2. The diffusing capacity adjusted for alveolar volume is decreased from 1.95 to 0.95. Impression: There is a severe obstructive abnormality. There is significant improvement after inhaling a single dose of albuterol. The diffusing capacity unadjusted for hemoglobin and carboxyhemoglobin is severely decreased and remains severely decreased when adjusted for alveolar volume. In comparison to previous pulmonary function testing on 11/03/2019 there has been a greater than anticipated time dependent increase in the FVC, FEV1 and diffusing capacity. These results are consistent with worsening COPD now grade 3 group B COPD. 06/14/2024: Alpha 1 anti trypsin MZ. I will send an alpha 1 anti trypsin level. 05/03/2024: Home O2 assessment:? Rest nasal cannula 6 L saturation 90%.? Exercise nasal cannula 6 L saturation 79%.? Exercise nasal cannula 7 L saturation 84%.? Exercise nasal cannula 8 L saturation 87%.? Exercise nasal cannula 9 L saturation 90%. 05/02/2024: Overnight oximetry on 6 L nasal cannula.? Recording duration 6 hours and 3 minutes.? Average saturation 97%.? Low saturation 88%.? Time with saturation less than or equal to 88% was 4 minutes.? Oxygen desaturation index 2. 05/01/2024:? ABG on Airvo 35 L, 63% FiO2 pH 7.44/41/80. 05/01/24: CTA chest PE protocol Ordering provider: Antony VieyraMD History: 83 years Female with . SOB . Comparison: March 12, 2024 Technique: CT angiogram chest was performed following timed intravenous injection of contrast. Thin slice axial images and reformatted coronal images were obtained. Three dimensional reformatted images of the chest were also obtained using a [employer] workstation. . Automated exposure control and iterative reconstruction technique were employed. The dose-length product was 501.20 mGy- cm. 100 mL Omnipaque 350 was given IV. Findings: PULMONARY ARTERIES: No pulmonary embolus. VISUALIZED THORACIC INLET: Normal. MEDIASTINUM: Aorta/coronary arteries: Mild atheromatous disease. Heart/other: The heart is not enlarged. Lymph nodes: No mediastinal or hilar adenopathy. Precarinal lymph node is seen measuring 1.3 cm. LUNGS: Minimal atelectasis versus pneumonia in the lingula is noted. Underlying emphysematous changes. No pulmonary nodules or masses. No infiltrates or effusions. No pneumothorax. VISUALIZED UPPER ABDOMEN: Status post cholecystectomy. Markedly thickened wall of the stomach. Further evaluation advised. Otherwise, the visualized upper abdomen is normal. MUSCULOSKELETAL: Soft tissues: The superficial soft tissues are normal. Bones: Age appropriate degenerative changes of the spine. IMPRESSION: 1. No pulmonary embolism. 2. Atelectatic changes in the area of the lingula. Pneumonia is less likely. 3. Markedly thickened wall of the stomach. Further evaluation advised. 03/14/2024: Echo Summary 1. Complete two-dimensional, color flow and Doppler transthoracic echocardiogram is performed. 2. Left ventricular chamber dimension is normal. 3. 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 4. There is mild concentric increased left ventricular wall thickness. 5. Left ventricular systolic function is normal, estimated at 65-70%. 6. The left ventricular diastolic function is grade I diastolic dysfunction. 7. E/e' 11 is mildly elevated. 8. Left atrial chamber dimension is moderately enlarged. 9. There is mild aortic valve sclerosis. 10. There is trace tricuspid valve regurgitation. 11. No pulmonary hypertension, estimated pulmonary arterial systolic pressure is 23 mmHg. 12. There is trivial pericardial effusion. Right Ventricle Right ventricular systolic function is normal and with normal TAPSE 2.7 cm. Right ventricular chamber dimension is normal. Left Atria Left atrial chamber dimension is moderately enlarged. Right Atria Right atrial chamber dimension is normal. TTE @ [facility] 04/04/23 - EF 55-60%, LV diastolic function abnormal, RV volume and pressure overload. Normal RV systolic function. Stress Test 11/09/22 - Myocardial perfusion imaging demonstrating a fixed moderate size anteroseptal perfusion defect suggestive of breast attenuation artifact. No evidence of reversible ischemia. Negative lexiscan stress test for ischemic ST changes by ECG criteria. Stable hemodynamics throughout the test. Echo 06/02/23 - EF 55-60%, grade I diastolic dysfunction, no pulmHTN. Overnight ox on 3L 10/23/22 - 8min spent below 88% saturation (seems likely artifact). PFT 11/03/19 - Moderate airflow obstruction with hyperinflation, air trapping and severely reduced diffusion capacity; no acute bronchodilator response. This correlates with COPD. FEV1/FVC 42%, FEV1 0.93L (64%), TLC 129%, RV/TLC ration 57%, uncorrected DLCO 30%, DLCO corrected for alveolar volume 57%. Echo 05/2021 - EF 60-65%, diastolic dysfunction, moderate pulmHTN. Chest CT 04/12/20 - Right perihilar 9 mm nodule, likely benign given two-year stability. Moderate emphysema. This was PET-CT negative.? Review of Systems 2 Constitutional: Constitutional: Reports no additional constitutional complaints Eyes: Eyes: Reports no additional eye complaints ENT: Reports system reviewed and no additional complaints, except as documented Cardiovascular: Cardiovascular: Reports no additional cardiovascular complaints Respiratory: Respiratory: Reports no additional respiratory complaints Gastrointestinal: Gastrointestinal: Reports no additional gastrointestinal complaints Musculoskeletal: Musculoskeletal: Reports no additional musculoskeletal complaints Neurologic: Reports system reviewed and no additional complaints, except as documented Psychiatric: Psychiatric: Reports no additional psychiatric complaints Endocrine: Endocrine: Reports no additional endocrine complaints Hematologic/Lymphatic: Hematologic/Lymphatic: Reports no additional hematologic/lymphatic complaints Allergic/Immunologic: Allergic/Immunologic: Reports no additional allergic/immunologic complaints PMFSH Past Medical History Medical History Essential hypertension Type 2 myocardial infarction 02/2024 Diastolic congestive heart failure Echocardiogram February 2024 demonstrated EF of 65-70%, mild concentric left ventricular wall thickness, grade 1 diastolic dysfunction, E/E 11 mildly elevated, moderate left atrial enlargement. Prior echocardiogram 05/2023 demonstrated basal inferior septal wall severely hypokinetic to akinetic but this was not mentioned on the most recent echo Chronic kidney disease Stage IIIB Hypothyroidism Coronary artery disease Normal Lexiscan 10/2022 Gastroesophageal reflux disease Chronic obstructive pulmonary disease Hyperlipidemia Surgical History Surgical History History of cholecystectomy History of appendectomy History of partial hysterectomy Family History Family History Father Cerebrovascular accident Mother Diabetes mellitus Heart disease Sibling Throat cancer Renal failure Suicide Sibling Heart disease Social History Social History Social History: Surrogate medical decision maker: anjelica Ward. Code status: Do not intubate Smoking packs per day: 1 Smoking cigarettes per day: 20.0 Years smoked: 60 Smoking pack-years: 60.00 Smoking status: Former smoker Tobacco type: cigarettes Second hand tobacco smoke exposure: Yes Smoking end date: 05/01/1964 Alcohol intake: never Alcohol use details: Social Substance use: never Substance use type: does not use Do You Feel Safe in your Home?: Yes Lack of Transportation: No Lack of Food: Never True Current Housing: I Have Housing Concerned About Future Housing: No Difficulty Paying Gas/Electric Bills: No Difficulty Paying for Meds: No Currently Unemployed: No Education: High School Diploma/GED Difficulty w/ Childcare or Family Care: No Living arrangements: with family Additional living arrangements comments: Lives with son, [id number] and 3 grandchildren in [place]. 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 Gender identity (if verbalized by the patient): Female Spiritual care concerns: No Meds Home Medications and Allergies Home Medications ?Medication ?Instructions ?Recorded ?Confirmed ?Type insulin lispro 100 unit/mL See Protocol subcut TIDWM 05/15/21 08/28/24 History subcutaneous pen (Humalog KwikPen (U-100) Insulin) lovastatin 20 mg tablet 20 mg PO HS 05/15/21 08/28/24 History omeprazole 40 mg capsule,delayed 40 mg PO DAILY 05/15/21 08/28/24 History release aspirin 81 mg tablet,delayed 81 mg PO DAILY 09/26/21 08/28/24 History release levothyroxine 137 mcg tablet 137 mcg PO DAILY@0630 #30 tabs 06/04/23 08/28/24 Rx (Synthroid) levalbuterol tartrate 45 2 inh inhalation Q6H PRN shortness 07/05/23 08/28/24 Rx mcg/actuation aerosol inhaler of breath or wheezing #15 grams escitalopram oxalate 20 mg tablet 20 mg PO DAILY 07/14/23 08/28/24 History furosemide 40 mg tablet 40 mg PO BID 10/25/23 08/28/24 History montelukast 10 mg tablet 10 mg PO QPM 03/12/24 08/28/24 History guaifenesin 600 mg tablet, 600 mg PO Q12HR #60 tabs 03/16/24 08/28/24 Rx extended release 12 hr (Mucus Relief ER) ramelteon 8 mg tablet See Rx Instructions .Route 05/24/24 08/28/24 Rx .COMPLEX #90 tabs Breo Ellipta 100 mcg-25 mcg/dose See Rx Instructions .Route 05/29/24 08/28/24 Rx powder for inhalation (fluticasone .COMPLEX #180 ea furoate-vilanterol) tiotropium bromide 2.5 1 inh inhalation .twice a day #4 06/14/24 08/28/24 Rx mcg/actuation mist for inhalation grams glucagon 3 mg/actuation nasal spray 3 mg intranasal ONCE #2 ea 07/25/24 08/28/24 Rx insulin glargine 100 unit/mL (3 10 unit (0.1 mL) subcut HS #15 mL 07/25/24 08/28/24 Rx mL) subcutaneous pen (Lantus Solostar U-100 Insulin) metoprolol tartrate 25 mg tablet 25 mg PO BID #180 tabs 08/16/24 08/28/24 Rx alprazolam 0.25 mg tablet 0.5 mg PO QID PRN Anxiety 08/28/24 08/28/24 History losartan 50 mg tablet 100 mg PO DAILY 08/28/24 08/28/24 History Allergies Allergy/AdvReac Type Severity Reaction Status Date / Time No Known Allergies Allergy Verified 08/01/24 11:05 Vital Signs Vital Signs - 24 hr 08/28/24 00:15 08/28/24 00:15 08/28/24 00:36 Temperature 36.6 C Pulse Rate 65 65 Respiratory Rate 29 H 30 H Blood Pressure 138/78 Pulse Oximetry 54 L 97 100 Oxygen Delivery High Flow Nasal Cannula BiPAP Oxygen Flow Rate 10 Fraction of Inspired Oxygen 100 08/28/24 00:40 08/28/24 00:41 08/28/24 00:45 Temperature Pulse Rate 67 62 66 Respiratory Rate 30 H 20 28 H Blood Pressure 162/54 H Pulse Oximetry 94 97 97 Oxygen Delivery Oxygen Flow Rate Fraction of Inspired Oxygen 08/28/24 00:47 08/28/24 01:00 08/28/24 01:02 Temperature Pulse Rate 63 59 L 60 Respiratory Rate 24 H 25 H 28 H Blood Pressure 171/55 H 139/44 L Pulse Oximetry 96 98 95 Oxygen Delivery Oxygen Flow Rate Fraction of Inspired Oxygen 08/28/24 01:16 08/28/24 01:19 08/28/24 01:30 Temperature Pulse Rate 63 66 Respiratory Rate 28 H 25 H Blood Pressure 124/57 L Pulse Oximetry 90 100 100 Oxygen Delivery Oxygen Flow Rate Fraction of Inspired Oxygen 08/28/24 01:31 08/28/24 01:32 08/28/24 01:45 Temperature Pulse Rate 64 67 70 Respiratory Rate 25 H 25 H 20 Blood Pressure 142/50 H Pulse Oximetry 100 100 100 Oxygen Delivery Oxygen Flow Rate Fraction of Inspired Oxygen 08/28/24 01:47 08/28/24 01:48 08/28/24 02:00 Temperature Pulse Rate 69 68 71 Respiratory Rate 27 H 25 H 24 H Blood Pressure 111/51 L Pulse Oximetry 98 100 99 Oxygen Delivery Oxygen Flow Rate Fraction of Inspired Oxygen 08/28/24 02:16 08/28/24 02:22 08/28/24 02:30 Temperature Pulse Rate 68 66 65 Respiratory Rate 18 24 H 25 H Blood Pressure 104/49 L 111/44 L Pulse Oximetry 98 98 99 Oxygen Delivery Oxygen Flow Rate Fraction of Inspired Oxygen 08/28/24 02:31 08/28/24 02:46 08/28/24 02:55 Temperature 37.1 C Pulse Rate 63 64 64 Respiratory Rate 25 H 26 H 28 H Blood Pressure 123/44 L Pulse Oximetry 98 98 97 Oxygen Delivery Oxygen Flow Rate Fraction of Inspired Oxygen 08/28/24 03:00 08/28/24 03:00 08/28/24 03:00 Temperature Pulse Rate 62 62 62 Respiratory Rate 24 H Blood Pressure Pulse Oximetry 97 Oxygen Delivery BiPAP Oxygen Flow Rate Fraction of Inspired Oxygen 08/28/24 03:04 08/28/24 06:00 08/28/24 07:40 Temperature Pulse Rate 65 68 66 Respiratory Rate 30 H 23 H Blood Pressure Pulse Oximetry 99 100 Oxygen Delivery Oxygen Flow Rate Fraction of Inspired Oxygen 08/28/24 07:40 08/28/24 07:48 08/28/24 07:48 Temperature 37.1 C Pulse Rate 66 67 68 Respiratory Rate 23 H 21 H 23 H Blood Pressure 116/48 L Pulse Oximetry 100 Oxygen Delivery Oxygen Flow Rate Fraction of Inspired Oxygen 08/28/24 09:08 08/28/24 11:40 08/28/24 13:45 Temperature 36.6 C Pulse Rate 78 66 68 Respiratory Rate 20 23 H Blood Pressure 132/51 L Pulse Oximetry 95 Oxygen Delivery Oxygen Flow Rate Fraction of Inspired Oxygen 08/28/24 13:53 Temperature Pulse Rate 65 Respiratory Rate 23 H Blood Pressure Pulse Oximetry Oxygen Delivery Oxygen Flow Rate Fraction of Inspired Oxygen Exam 2 Const: General: cooperative, healthy appearing and comfortable O rientation/consciousness: oriented to person, oriented to place and oriented to time HENMT: Head: normal to inspection Ears: hearing grossly normal bilaterally Eyes: General: appearance normal, both eyes and all related structures Neck: Neck: normal visual inspection Chest: Chest palpation & inspection: normal inspection of the chest Resp: Effort & Inspection: normal respiratory effort and able to speak in complete sentences Auscultation: no crackles, no rales, no rhonchi, no wheezes and diminished lung sounds Cardio: Jugular venous distension: no JVD GI: Inspection: normal to inspection GI Palp: No abdominal tenderness Skin: General skin exam: normal color Neuro: General: oriented to person, oriented to place and oriented to time Extrem: General: normal to inspection Psych: Appearance: grossly normal Results Laboratory Findings 08/28/24 03:11 08/28/24 03:11 ABG, PT/INR, D-dimer: ABG ABG pH 7.347 (7.350-7.450) L 08/28/24 00:41 ABG pCO2 50.9 mmHg (35.0-45.0) H 08/28/24 00:41 ABG pO2 138.9 mmHg (80.0-100.0) H 08/28/24 00:41 ABG O2 Saturation 98.6 % (95.0-100.0) 08/28/24 00:41 PT/INR, D-dimer PT 14.5 Seconds (11.1-14.7) 08/28/24 00:28 INR 1.1 08/28/24 00:28 D-Dimer 0.68 ug/mL (<0.48) H 08/28/24 13:27 Abnormal lab findings: Abnormal Labs 08/28/24 08/28/24 08/28/24 00:27 00:28 00:41 WBC 22.9 H Hgb MCHC 28.9 L RDW 15.9 H MPV 10.8 H Immature Gran % (Auto) 0.8 H Neut % (Auto) 77.9 H Lymph % (Auto) 13.7 L [place] # (Auto) 1.1 H Eos # (Auto) 0.5 H Abs Immat Gran (auto) 0.18 H Absolute Neuts (auto) 17.9 H Neutrophils % (Manual) Band Neutrophils % Lymphocytes % (Manual) Abs Neuts (Manual) Abs Lymphs (Manual) D-Dimer ABG pH 7.347 L ABG pCO2 50.9 H ABG pO2 138.9 H ABG HCO3 27.3 H Carbon Dioxide BUN 43 H Creatinine 1.40 H Estimated GFR 36 L Glucose 176 H POC Capillary Glucose Hemoglobin A1c Lactic Acid 2.5 H Magnesium 3.5 H AST 37 H NT-Pro-B Natriuret Pep 35258 H 08/28/24 08/28/24 08/28/24 03:11 11:16 13:27 WBC 24.1 H Hgb 11.7 L MCHC 28.3 L RDW 16.0 H MPV 11.7 H Immature Gran % (Auto) Neut % (Auto) Lymph % (Auto) [place] # (Auto) Eos # (Auto) Abs Immat Gran (auto) Absolute Neuts (auto) Neutrophils % (Manual) 83 H Band Neutrophils % 13 H Lymphocytes % (Manual) 4 L Abs Neuts (Manual) 23.13 H Abs Lymphs (Manual) 0.96 L D-Dimer 0.68 H ABG pH ABG pCO2 ABG pO2 ABG HCO3 Carbon Dioxide 32 H BUN 43 H Creatinine 1.45 H Estimated GFR 35 L Glucose 122 H POC Capillary Glucose 377 H Hemoglobin A1c 7.5 H Lactic Acid Magnesium 3.0 H AST NT-Pro-B Natriuret Pep Diagnostic Findings Additional studies: ITS Impressions Chest X-Ray 08/28/24 05:53 Impression: Clear lungs. Possible COPD.
[2024-08-28] MEDS: INSULIN ASPART (*BKC) 100 UNITS/ML 10 UNITS SUB-Q (17:15)
[2024-08-28] MEDS: MONTELUKAST SODIUM 10 MG TABLET PO (18:47)
[2024-08-28] MEDS: guaiFENesin 12 HR 600 MG TABCR 1200 MG PO (21:03)
[2024-08-28] MEDS: LOVASTATIN 20 MG TABLET PO (21:04)
--- NOTE | 2024-08-28 22:14 | PHAR ---
HOME MED VERIFIED RAMELTEON 8MG TAKE 1 TABLET HS PRN SLEEP
[2024-08-29] VITALS (28 sets, daily range): BP systolic 120–158; BP diastolic 44–61; PULSE 54–96; RESP 18–22; TEMP 36.3–36.5; O2SAT 84–100
[2024-08-29] MEDS: RAMELTEON 8 MG 8 EACH PO ×2 (00:13→21:28)
[2024-08-29] MEDS: IPRATROPIUM 0.5 MG/ALBUTEROL SULFATE 2.5 MG AMPUL.NEB 3 ML INHALATION ×4 (02:09→20:12)
[2024-08-29 05:11] LABS: Hematocrit 34.5 % (37.0-47.0); Hemoglobin 10.2 g/dL (12.0-15.0); Immature Granulocyte Percent A 0.8 % (0-0.5); Lymphocytes Absolute Auto 1.05 K/mm3 (0.9-3.2); Mean Corpuscular HGB Conc 29.6 g/dl (32-36); Mean Corpuscular Hemoglobin 27.1 pg (26-34); Mean Corpuscular Volume 91.5 fl (80-100); Nucleated Red Blood Cells Absolute Auto 0.000 K/mm3 (0.0-0.012); Nucleated Red Blood Cells Perc 0.0 % (0.0-0.2); Platelet Count Result 261 k/mm3 (150-375); Red Blood Count 3.77 M/mm3 (4.2-5.4); White Blood Count 16.0 K/mm3 (4.5-10.0)
[2024-08-29 05:38] LABS: Alanine Aminotransferase 28 U/L (6-35); Albumin Level 3.4 g/dL (3.5-5.1); Alkaline Phosphatase 69 U/L (38-126); Anion Gap 7 mmol/L (4-12); Aspartate Amino Transferase 29 U/L (14-36); Bilirubin,Total 0.2 mg/dL (0.2-1.3); Blood Urea Nitrogen 52 mg/dL (7-17); Calcium 8.8 mg/dL (8.4-10.2); Carbon Dioxide 30 mmol/L (22-30); Chloride 100 mmol/L (98-107); Estimated CRCL calculation 20 ml/min; Estimated Glomerular Filt Rate 37; Glucose 178 mg/dL (65-110); Potassium 4.4 mmol/L (3.4-5.0); Sodium 137 mmol/L (137-145); Total Protein 6.2 g/dL (6.3-8.2)
[2024-08-29 05:44] LABS: NT Pro B Type Natriuretic Pept 21200 pg/mL (19.9-100)
[2024-08-29 05:59] LABS: Procalcitonin 0.7 ng/mL
[2024-08-29] MEDS: LEVOTHYROXINE SODIUM 112 MCG TABLET PO (06:10)
[2024-08-29] MEDS: LEVOTHYROXINE SODIUM 25 MCG TABLET PO (06:10)
--- NOTE | 2024-08-29 09:24 | PM.IMPN ---
Progress Note: A&P Assessment and Plan (1) Diastolic congestive heart failure: Code(s): I50.30 - Unspecified diastolic (congestive) heart failure Status: Acute (2) Insulin dependent diabetes mellitus: Status: Acute (3) COPD exacerbation: Code(s): J44.1 - Chronic obstructive pulmonary disease with (acute) exacerbation Status: Acute (4) Acute and chronic respiratory failure with hypoxia: Code(s): J96.21 - Acute and chronic respiratory failure with hypoxia Status: Acute Plan 83-year-old female with a past medical history formal tobacco abuse, hypothyroidism, hyperlipidemia, insulin dependent diabetes mellitus, hypertension, CAD, CKD, COPD, chronic respiratory failure with continuous home O2 use. She presents a [facility] ER on 08/28/2024 as she was found to be hypoxic and tachypneic with shortness of breath and wheezing. She lives with her family member. Patient was placed on 10 L non-rebreather, given 2 g IV magnesium, epinephrine, 125 mg IV Solu-Medrol, 3 DuoNebs treatments and brought to the ER. At that time she was saturating 54% on non-rebreather. She was placed on BiPAP and had symptomatic relief. On the BiPAP with 100% FiO2 her pH was 7.347, pCO2 50.9, PO2 139, bicarb 27.3. She was also given a continuous DuoNeb treatment, azithromycin and ceftriaxone. Her WBC count 22.9, BUN 43, serum creatinine 1.40, quad viral screen negative, BNP 16968, troponin 0.031. Chest x-ray did not demonstrate any acute findings. The patient reiterated her DNR status. She otherwise denied fever, cough worse than her usual, sputum production, chest pain. Acute on chronic hypoxic respiratory failure with hypoxemia and hypercapnia COPD exacerbation Community-acquired pneumonia on BiPAP currently on 100% FiO2 and being weaned down. on DuoNebs q.4 hours, methylprednisolone 20 mg IV Q 6 Quad viral screen negative. X-ray showed increased interstitial patchy infiltrate bilateral lower lobes. Patient has leukocytosis, suspecting acute bacterial bronchitis and pneumonia Start azithromycin ceftriaxone IV Consult pulmonology for evaluation treatment Condition improving, changed to oral prednisone today 08/29 Diastolic heart failure compensated Possible decompensated due to COPD exacerbation, Echocardiogram showed EF 65-70%, grade 1 diastolic dysfunction Continue to monitor closely. Continue home medications metoprolol, Lasix 40 mg p.o. b.i.d. 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 Hypertension: Resume CODING [employer]IST metoprolol, losartan, Lasix Insulin-dependent diabetes mellitus: Resume CODING SPECIALIST Lantus 10 units q.h.s., sliding scale with Accu-Cheks a.c. HS DNR. Patient lives with family member. . Subjective Date/time seen: 08/29/24 09:24 Interval history: I saw exam patient presents Patient off BiPAP now, patient is on high-flow oxygen via nasal cannular Patient feels better Still has cough with scant phlegm Denies chest pain abdomen pain nausea vomiting diarrhea Exam Narrative: GENERAL: Pleasant, in no acute distress. Well-nourished. - EYES: EOMI. Anicteric. - HENT: Moist mucous membranes. - LUNGS: Coarse breath sound bilaterally - CARDIOVASCULAR: Regular rate and rhythm. No murmur. No JVD. - ABDOMEN: Soft, non-tender and non-distended. No palpable masses. - EXTREMITIES: No edema. Peripheral pulses 2+. Non-tender. - NEUROLOGIC: No focal neurological deficits. CN II-XII grossly intact. - PSYCHIATRIC: Awake, Alert and oriented x 3. Appropriate mood and affect. - SKIN: No rashes or lesions. Warm. - LYMPH: No cervical lymphadenopathy. Objective Data Vital Signs Vital Signs: Vital Signs - 24 hr 08/28/24 09:30 08/28/24 10:00 08/28/24 11:40 Temperature 97.9 F Pulse Rate 67 66 Respiratory Rate 20 Blood Pressure 132/51 L Pulse Oximetry 92 95 Oxygen Delivery High Flow Nasal Cannula Oxygen Flow Rate 10 Fraction of Inspired Oxygen 08/28/24 12:00 08/28/24 12:00 08/28/24 13:00 Temperature Pulse Rate 70 Respiratory Rate Blood Pressure Pulse Oximetry 95 96 Oxygen Delivery High Flow Nasal Cannula High Flow Nasal Cannula Oxygen Flow Rate 10 8 Fraction of Inspired Oxygen 08/28/24 13:45 08/28/24 13:53 08/28/24 14:00 Temperature Pulse Rate 68 65 72 Respiratory Rate 23 H 23 H Blood Pressure Pulse Oximetry Oxygen Delivery Oxygen Flow Rate Fraction of Inspired Oxygen 08/28/24 15:51 08/28/24 16:00 08/28/24 16:00 Temperature 98.4 F Pulse Rate 64 71 Respiratory Rate 20 Blood Pressure 143/51 H Pulse Oximetry 97 99 Oxygen Delivery High Flow Nasal Cannula Oxygen Flow Rate 10 Fraction of Inspired Oxygen 08/28/24 17:40 08/28/24 17:49 08/28/24 18:00 Temperature Pulse Rate 72 68 74 Respiratory Rate 23 H 23 H Blood Pressure Pulse Oximetry Oxygen Delivery Oxygen Flow Rate Fraction of Inspired Oxygen 08/28/24 20:00 08/28/24 20:00 08/28/24 20:00 Temperature 98.2 F Pulse Rate 77 72 72 Respiratory Rate 20 22 H Blood Pressure 150/53 H Pulse Oximetry 93 92 Oxygen Delivery High Flow Nasal Cannula Oxygen Flow Rate 9 Fraction of Inspired Oxygen 08/28/24 20:03 08/28/24 20:06 08/28/24 20:14 Temperature Pulse Rate 73 73 73 Respiratory Rate 22 H 22 H Blood Pressure Pulse Oximetry 97 Oxygen Delivery High Flow Nasal Cannula Oxygen Flow Rate 10 Fraction of Inspired Oxygen 08/28/24 21:03 08/28/24 22:00 08/28/24 23:24 Temperature 98.1 F Pulse Rate 78 76 64 Respiratory Rate 20 Blood Pressure 135/50 L Pulse Oximetry 96 Oxygen Delivery Oxygen Flow Rate Fraction of Inspired Oxygen 08/29/24 00:00 08/29/24 00:00 08/29/24 02:00 Temperature Pulse Rate 62 62 60 Respiratory Rate 20 Blood Pressure Pulse Oximetry 99 Oxygen Delivery High Flow Nasal Cannula Oxygen Flow Rate 9 Fraction of Inspired Oxygen 08/29/24 02:07 08/29/24 02:10 08/29/24 02:19 Temperature Pulse Rate 59 L 58 L 59 L Respiratory Rate 20 20 Blood Pressure Pulse Oximetry 100 Oxygen Delivery High Flow Nasal Cannula Oxygen Flow Rate 9 Fraction of Inspired Oxygen 08/29/24 03:39 08/29/24 03:39 08/29/24 04:00 Temperature 97.4 F L Pulse Rate 62 62 59 L Respiratory Rate 20 20 Blood Pressure 120/44 L Pulse Oximetry 100 100 Oxygen Delivery High Flow Nasal Cannula Oxygen Flow Rate 8 Fraction of Inspired Oxygen 100 08/29/24 05:37 08/29/24 07:50 08/29/24 08:35 Temperature 97.6 F Pulse Rate 62 69 Respiratory Rate 22 H Blood Pressure 142/57 H Pulse Oximetry 97 93 Oxygen Delivery Nasal Cannula Oxygen Flow Rate 10 Fraction of Inspired Oxygen 08/29/24 08:35 08/29/24 08:41 Temperature Pulse Rate 76 73 Respiratory Rate 18 18 Blood Pressure Pulse Oximetry Oxygen Delivery Oxygen Flow Rate Fraction of Inspired Oxygen Intake/Output Intake/Output: Intake & Output 08/26/24 08/27/24 08/28/24 08/29/24 23:59 23:59 23:59 23:59 Intake Total 1610 Output Total 525 700 Balance 1085 -700 Meds/Results Medications: Active Medications Generic Name Dose Route Start Last Admin Trade Name Freq PRN Reason Stop Dose Admin Albuterol 2.5 mg 08/28/24 09:33 Albuterol Sulfate Neb 2.5 Mg/3 Ml Inh INHALATION Q4HRT PRN Shortness Of Breath Albuterol/Ipratropium 3 ml 08/28/24 08:00 08/29/24 08:35 Ipratropium 0.5 Mg/Albuterol Sulfate 2.5 Mg Ampul.Neb 3 Ml INHALATION 3 ml Q4HRT COCO Administration Alprazolam 0.5 mg 08/28/24 05:23 Alprazolam (*Crx) 0.5 Mg Tablet PO QID PRN Anxiety Aspirin 81 mg 08/28/24 09:00 08/28/24 09:08 Aspirin 81 Mg Enteric Tablet PO 81 mg DAILY COCO Administration Dextrose 12.5 gm 08/28/24 12:12 Dextrose 50% 25 Gm/50 Ml Syringe IV PUSH PRN PRN Hypoglycemia Protocol Escitalopram Oxalate 20 mg 08/28/24 09:00 08/28/24 09:08 Escitalopram Oxalate 10 Mg Tablet PO 20 mg DAILY COCO Administration Furosemide 40 mg 08/28/24 09:00 08/28/24 09:08 Furosemide 40 Mg Tablet PO 40 mg BID COCO Administration Glucagon 1 mg 08/28/24 12:12 Glucagon For Inj 1 Mg Vial IM PRN PRN Hypoglycemia Protocol Glucose 15 gm 08/28/24 12:12 Glucose Oral Gel 15 Gm Of Glucse In 37.5 Gm Tube PO PRN PRN Hypoglycemia Protocol Guaifenesin 1,200 mg 08/28/24 21:00 08/28/24 21:03 Guaifenesin 12 Hr 600 Mg Tabcr PO 1,200 mg Q12HR COCO Administration Azithromycin 500 mg/ Sodium 250 mls @ 250 mls/hr 08/28/24 21:00 08/28/24 22:05 Chloride IVPB Infused Q24H COCO Infusion Ceftriaxone Sodium 2 gm/ 100 mls @ 200 mls/hr 08/28/24 12:00 08/28/24 13:07 Sodium Chloride IVPB 200 mls/hr Q24H COCO Administration Dextrose 1,000 mls @ 100 mls/hr 08/28/24 12:12 Dextrose 5% 1,000 Ml IVPB PRN PRN Hypoglycemia Protocol Insulin Aspart 4 - 8 units 08/29/24 08:00 Insulin Aspart (*Bkc) 100 Units/Ml SUB-Q TIDWM COCO Protocol Insulin Aspart 2 - 4 units 08/28/24 21:00 08/28/24 21:05 Insulin Aspart (*Bkc) 100 Units/Ml SUB-Q 4 units HS COCO Administration Protocol Insulin Glargine 10 units 08/28/24 21:00 08/28/24 21:04 Insulin Glargine (*Bkc) 100 Units/Ml SUB-Q 10 units HS COCO Administration Levothyroxine Sodium 112 mcg 08/28/24 06:30 08/29/24 06:10 Levothyroxine Sodium 112 Mcg Tablet PO 112 mcg DAILY@0630 COCO Administration Levothyroxine Sodium 25 mcg 08/28/24 06:30 08/29/24 06:10 Levothyroxine Sodium 25 Mcg Tablet PO 25 mcg DAILY@0630 COCO Administration Losartan Potassium 100 mg 08/28/24 09:00 08/28/24 09:08 Losartan Potassium 50 Mg Tablet PO 100 mg DAILY COCO Administration Lovastatin 20 mg 08/28/24 21:00 08/28/24 21:04 Lovastatin 20 Mg Tablet PO 20 mg HS COCO Administration Methylprednisolone Sodium Succinate 20 mg 08/28/24 18:00 08/29/24 06:10 Methylprednisolone Sod Succ 125 Mg Vial IV PUSH 20 mg Q6HR COCO Administration Metoprolol Tartrate 25 mg 08/28/24 09:00 08/28/24 21:03 Metoprolol Tartrate 25 Mg Tablet PO 25 mg Q12HR COCO Administration Montelukast Sodium 10 mg 08/28/24 18:00 08/28/24 18:47 Montelukast Sodium 10 Mg Tablet PO 10 mg QPM COCO Administration Home Med (Ramelteon 8 mg 08/28/24 22:04 08/29/24 00:13 8 Mg Tablet) PO 09/27/24 22:03 8 mg HS PRN Administration Sleep Pantoprazole Sodium 40 mg 08/28/24 09:00 08/28/24 18:47 Pantoprazole 40 Mg Tablet PO 40 mg BID COCO Administration Radiology Results: ITS Impressions Chest X-Ray 08/28/24 05:53 Impression: Clear lungs. Possible COPD. Chest CTA 08/28/24 17:14 IMPRESSION: Suboptimal evaluation of the bilateral lower lobe segmental and subsegmental pulmonary arteries. No CT evidence of acute pulmonary embolus in the adequately visualized vessels. Bilateral hilar lymphadenopathy Labs Labs: Laboratory Results - last 24 hr 08/28/24 08/28/24 08/28/24 00:41 03:11 11:16 WBC RBC Hgb Hct MCV MCH MCHC RDW Plt Count MPV Immature Gran % (Auto) Neut % (Auto) Lymph % (Auto) [place] % (Auto) Eos % (Auto) Baso % (Auto) Lymph # (Auto) [place] # (Auto) Eos # (Auto) Baso # (Auto) Abs Immat Gran (auto) Absolute Neuts (auto) Absolute Nucleated RBC Nucleated RBC % D-Dimer Expiratory Pressure 8 Inspiratory Pressure 14 Sodium Potassium Chloride Carbon Dioxide Anion Gap BUN Creatinine Estim Creat Clear Calc Estimated GFR Glucose POC Capillary Glucose 377 H Hemoglobin A1c 7.5 H Calcium Total Bilirubin AST ALT Alkaline Phosphatase NT-Pro-B Natriuret Pep Total Protein Albumin Procalcitonin 08/28/24 08/28/24 08/28/24 13:27 15:23 20:48 WBC RBC Hgb Hct MCV MCH MCHC RDW Plt Count MPV Immature Gran % (Auto) Neut % (Auto) Lymph % (Auto) [place] % (Auto) Eos % (Auto) Baso % (Auto) Lymph # (Auto) [place] # (Auto) Eos # (Auto) Baso # (Auto) Abs Immat Gran (auto) Absolute Neuts (auto) Absolute Nucleated RBC Nucleated RBC % D-Dimer 0.68 H Expiratory Pressure Inspiratory Pressure Sodium Potassium Chloride Carbon Dioxide Anion Gap BUN Creatinine Estim Creat Clear Calc Estimated GFR Glucose POC Capillary Glucose 408 H 356 H Hemoglobin A1c Calcium Total Bilirubin AST ALT Alkaline Phosphatase NT-Pro-B Natriuret Pep Total Protein Albumin Procalcitonin 08/29/24 08/29/24 05:05 07:20 WBC 16.0 H RBC 3.77 L Hgb 10.2 L Hct 34.5 L MCV 91.5 MCH 27.1 MCHC 29.6 L RDW 15.9 H Plt Count 261 MPV 11.1 H Immature Gran % (Auto) 0.8 H Neut % (Auto) 87.9 H Lymph % (Auto) 6.6 L [place] % (Auto) 4.6 Eos % (Auto) 0.0 Baso % (Auto) 0.1 L Lymph # (Auto) 1.05 [place] # (Auto) 0.7 H Eos # (Auto) 0.0 Baso # (Auto) 0.0 Abs Immat Gran (auto) 0.13 H Absolute Neuts (auto) 14.1 H Absolute Nucleated RBC 0.000 Nucleated RBC % 0.0 D-Dimer Expiratory Pressure Inspiratory Pressure Sodium 137 Potassium 4.4 Chloride 100 Carbon Dioxide 30 Anion Gap 7 BUN 52 H Creatinine 1.37 H Estim Creat Clear Calc 20 Estimated GFR 37 L Glucose 178 H POC Capillary Glucose 178 H Hemoglobin A1c Calcium 8.8 Total Bilirubin 0.2 AST 29 ALT 28 Alkaline Phosphatase 69 NT-Pro-B Natriuret Pep 21596 H Total Protein 6.2 L Albumin 3.4 L Procalcitonin 0.7
[2024-08-29] MEDS: ASPIRIN 81 MG ENTERIC TABLET PO (09:37)
[2024-08-29] MEDS: guaiFENesin 12 HR 600 MG TABCR 1200 MG PO ×2 (09:37→21:27)
[2024-08-29] MEDS: PANTOPRAZOLE 40 MG TABLET PO ×3 (09:37→17:40)
[2024-08-29] MEDS: LOSARTAN POTASSIUM 50 MG TABLET 100 MG PO (09:37)
[2024-08-29] MEDS: ESCITALOPRAM OXALATE 10 MG TABLET 20 MG PO (09:38)
[2024-08-29] MEDS: METOPROLOL TARTRATE 25 MG TABLET PO ×2 (09:38→21:28)
[2024-08-29] MEDS: FUROSEMIDE 40 MG TABLET PO ×3 (09:38→17:40)
--- NOTE | 2024-08-29 10:42 | P.PNPL_ITS ---
Progress Note: A&P Assessment and Plan (1) COPD (chronic obstructive pulmonary disease): Qualifiers: COPD type: COPD with acute exacerbation Qualified Code(s): J44.1 - Chronic obstructive pulmonary disease with (acute) exacerbation Code(s): J44.9 - Chronic obstructive pulmonary disease, unspecified Status: Acute Assessment and Plan: Gold grade 3 group E COPD 67 PY tobacco use, quit 02/2019. 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 06/22/2024: PFTs with FEV1 0.81 L, 49% predicted, ratio 48%, DLCO 15% and when corrected for alveolar volume 29%. Positive bronchodilator response. PFTs 11/03/2019 with a moderate obstructive abnormality with an FEV1 0.93 L, 64% predicted. FEV1: FVC ratio 42%. No bronchodilator response. Air trapping, Severely decreased DLCO and remain moderately decreased when adjusted for alveolar volume. CT scan of chest 04/10/2019 and most recently on 05/01/2024 with severe centrilobular emphysema apices greater than bases. Chronic hypoxemic respiratory failure requiring 6 L at rest and 9 with activity per home O2 assessment 05/03/2024. Require 6 L nasal cannula at night per overnight oximetry 05/02/2024. at home requiring 8.5 L nasal cannula with rest saturations 86-92%, 8.5 L with activity saturations 86%. 05/01/2024 ABG on Airvo 35 L 63% pH 7.44/41/80. echocardiogram 03/14/2024 with LVEF 65-70, grade 1 diastolic dysfunction, moderately enlarged left atrium normal RV size and function. Normal right atrial size. Trace tricuspid valve regurg with PASP 23. Patient presents now with Hypoxemic respiratory failure leading to shortness of breath without cough, phlegm production or change in phlegm volume or color. She was in respiratory distress and placed on BiPAP with blood gas of 7.35/51/139. She had a leukocytosis, clear chest x-ray and a D-dimer that is positive. She was treated with magnesium, DuoNebs, epinephrine, Solu-Medrol, ceftriaxone and azithromycin. After 12 hours, patient denies fever, chills, rigors, cough, phlegm production or chest pain. She is on 12 L nasal cannula saturations 92%. She is in no respiratory distress and has no wheezing. Patient tells me she is breathing normal right now. patient tells me she gained 5 lb in the last week, had swelling 1 [place] [address]. procalcitonin 0.3. COVID, influenza, RSV RT PCR assay negative. etiology of hypoxemic respiratory failure includes PE, mucus plugging, COPD exacerbation, fluid overload and or pneumonia Plan: I will order CT angiogram of the chest. Will hold Lasix at this time as she will receive a dye load. I will treat for mucus plugging with guaifenesin 1200 mg p.o. b.i.d, DuoNebs q.4 hours. Will treat for possible COPD exacerbation with Solu-Medrol 20 mg IV Q 6. Continue montelukast 10 Q.day. continue ceftriaxone and azithromycin day 1. I will send a respiratory pathogen panel, urine for Legionella, urine for pneumococcal disease and a serum mycoplasma IgM. Later in the day patient had a CT angiogram of the chest with motion artifact but no large central PEs, apical predominant centrilobular emphysema, no focal infiltrates, no nodules, no masses and no pleural effusions. 08/29/24: Overall the patient tells me she is breathing 90% back to her normal. She still has some rest shortness of breath. She denies cough, phlegm or hemoptysis. When I enter the room she was on 10 L nasal cannula saturation 93%. White blood cell count 16.0, creatinine 1.37, BNP has increased from 15,600 on 08/28/2024 to [address] today. Procalcitonin has increased from 0.3 on 08/28/2024 to 0.7 today. Plan: I will change the patient's Solu-Medrol 20 q.6 to prednisone 40 q.day, d ay 2 of steroids. I will decrease the frequency of the DuoNeb from q.4 hours to q.6 hours. Continue guaifenesin 1200 p.o. b.i.d. and montelukast 10 q.day. although there is no focal infiltrate on the CT scan she has a persistent leukocytosis. I will continue ceftriaxone and azithromycin, both day 2. Goal saturation 90-94%. Currently the patient is on 10 L nasal cannula and required 12 L to get out of bed. Lower extremity Dopplers ordered. Respiratory pathogen panel, mycoplasma IgM, urine Legionella and urine pneumococcal antigen pending. Discussed with Dr. Weaver, will follow with you. (2) Acute and chronic respiratory failure with hypoxia: Code(s): J96.21 - Acute and chronic respiratory failure with hypoxia Status: Acute Assessment and Plan: Chronic hypoxemic respiratory failure From COPD requiring 6 L at rest and 9 with activity per home O2 assessment 05/03/2024. Require 6 L nasal cannula at night per overnight oximetry 05/02/2024. At home requiring 8.5 L nasal cannula with rest saturations 86-92%, 8.5 L with activity saturations 86%. 05/01/2024 ABG on Airvo 35 L 63% pH 7.44/41/80. I have previously talked to [email or web address] about 210 L high-flow concentrator so that would be hooked up in series to give her high flow and at that time they thought she could be controlled with 1 10 L oxygen concentrator and a nasal cannula reservoir for Oxymizer. 08/28/24: Patient required BiPAP in the emergency for room for hypoxemic respiratory failure and work of breathing. ABG on BiPAP 12, pressures 14/8 and 100% was 7.35/51/139. Currently the patient is on 12 L nasal cannula saturations 92%. Plan: Goal saturation 90-94%. Patient can wear her BiPAP with the above settings on a p.r.n. basis during the day and night. Once the patient is improved and close to her baseline will repeat ABG after off being off BiPAP for 24 hours to reassess for chronic hypercarbic respiratory failure. 08/29/24: Patient did not require BiPAP last night. Currently she is on 10 L nasal cannula with saturations 93%. She required 12 L to get out of bed and had little stamina when she was sitting up. Plan: Goal saturation 90-94%. Tonight I will perform overnight oximetry on 10 L nasal cannula. I will repeat ABG tomorrow morning at 8:30 a.m. off of BiPAP for 48 hours to assess for chronic hypercarbic respiratory failure. Subjective Date/time seen: 08/29/24 10:42 Interval history: 08/28/2024: This is a new pulmonary consult for COPD exacerbation. 83-year-old with a history of COPD with hypoxic respiratory failure on 8.5 L with activity, rest and sleep, hypertension, diabetes, hyperlipidemia, hypothyroidism, CKD. patient is followed in the pulmonary clinic and last seen on 06/14/2024. she had dyspnea on exertion walking 5-6 steps worse over the last year, makes phlegm 1 time a week. Wearing 9 L at rest with saturations 92-93% and wearing 9 L with activity saturations 77-81. Wears 9 L at night. Her CAT score was 20. She was taking Breo Ellipta 1 puff a day, montelukast 10, DuoNebs q.6 and guaifenesin 600 b.i.d.. She is not smoking. I ordered an alpha 1 anti trypsin genotype, added Spiriva Respimat 2.5 twice a day. [facility] gave her headaches. [employer] 600 dollars a month and could not afford. I ordered PFTs, referred her to pulmonary rehabilitation told her to increase to 10 and if she was still less than 88% would get her a 2nd high-flow oxygen concentrator. Family call me back and said she was hypoxemic on 9.5 L and I contacted the DME to give her a 2nd 10 L flow to maintain saturations 89% or greater. That day the DME company called me and said they would like to try an Oxymizer nasal cannula. alpha 1 antitrypsin MZ with a level of 115 which was normal. 07/20/24 1253 Patient states that Pulmonary Rehab is like $40 a week for 8 weeks and she can not afford that. 07/12/2024: PFTs with a severe obstructive abnormality, FEV1 0.80 L, 49% predicted, ratio 48%, positive bronchodilator response. Unable to complete plethysmography. DLCO severely decreased when adjusted for alveolar volume. In comparison to previous PFTs on 11/03/2019 there has been a greater than anticipated decrease in the FVC, FEV1 and diffusing capacity. Over the last 1 and half months the patient tells me that she was doing better. She was more active around the house and the granddaughter lives next her confirms this. The patient was wearing 8.5 L at rest with saturations 86-92%. The patient was wearing 8 9.5 L with activity and saturations were closer to 86 and she uses a scooter to get around the house. Over the last 2 weeks the patient states she gained 5 lb in last week and 1 day with pedal edema. Patient was in her usual state of health on 08/27/24 and said that she ate dinner and was normal. She was sitting on the side of her bed and on 8.5 L her saturations decreased to 81%. She denied fever, chills, rigors, cough, change in phlegm. She called her granddaughter who came over and 2 minutes and put her up to 10 L and her saturations were 79%. She then tried to change her to the tank with the Oxymizer nasal cannula her saturations on 6 L were 74% and on 8 L were 79%. EMS was called. The granddaughter noted that her breathing status was labored and she was breathing with her stomach. When EMS arrived her saturations were low and she was placed on 10 L non-rebreather. Patient was brought to the emergency room in respiratory distress, saturations on 10 L non- rebreather 54% blood pressure 138/78, respiratory rate 29 and Love patient was placed on BiPAP rate of 12, pressures 14/8 and 100% FiO2 and improved. Her white blood cell count was 22.9, her creatinine was 1.40, [place] 00[address], her chest x-ray showed clear lungs. COVID influenza and RSV RT PCR negative. Procalcitonin 0.3. ABG on BiPAP with settings above 7.35/51/139. Patient was treated with magnesium, our lung nebulizer, epinephrine, Solu-Medrol 125, ceftriaxone and azithromycin. Patient was admitted to the floor. D-dimer 0.68 positive. Currently patient denies fever, chills, rigors, cough, phlegm production or chest pain. She is on 12 L nasal cannula saturations 92%. She is in no respiratory distress and has no wheezing. Patient tells me she is breathing normal right now. Later in the day patient had a CT angiogram of the chest with motion artifact but no large central PEs, apical predominant centrilobular emphysema, no focal infiltrates, no nodules, no masses and no pleural effusions. 08/29/24: Overall the patient tells me she is breathing 90% back to her normal. She still has some rest shortness of breath. She denies cough, phlegm or hemoptysis. When I enter the room she was on 10 L nasal cannula saturation 93%. White blood cell count 16.0, creatinine 1.37, BNP has increased from 15,600 on 08/28/2024 to 22026 today. Procalcitonin has increased from 0.3 on 08/28/2024 to 0.7 today. DATA: 07/12/2024: Alpha 1 anti trypsin level 115, normal 83-199. No intervention at this time. 07/12/2024: This is a pulmonary function test with pre and post-bronchodilator spirometry, and diffusing capacity. The test was performed and results interpreted in accordance with the 2019 and 2005 ATS/ERS Task Force guidelines respectively using the Global Lung Function Initiative-2012 reference equations. Patient demonstrated good effort and cooperation. Reproducibility criteria were met. Of note, the patient was unable to complete lung volume testing. Findings: Spirometry: There is decreased maximal expiratory flows at all lung volumes with a concave expiratory flow tracing. The contour the inspiratory flow tracing is truncated. The pre bronchodilator FVC is 1.68 L, 81% predicted. The pre bronchodilator FEV1 is 0.80 L, 49% predicted. The pre bronchodilator FEV1: FVC ratio is 48%. The post bronchodilator FVC is 2.09 L, representing a 24% increase. The post bronchodilator FEV1 is 0.86 L, representing an 8% increase. The post bronchodilator FEV1: FVC ratio is 41%. Diffusing capacity: The diffusing capacity unadjusted for hemoglobin and carboxyhemoglobin is 2.2, 15% predicted. The diffusing capacity adjusted for alveolar volume is 0.95, 29% predicted. In comparison to previous pulmonary function testing on 11/03/2019 the post bronchodilator FVC is decreased from 2.39 L to 2.09 L. The post bronchodilator FEV1 is decreased from 1.01 L to 0.86 L. the diffusing capacity unadjusted for hemoglobin and carboxyhemoglobin is decreased from 4.8 to 2.2. The diffusing capacity adjusted for alveolar volume is decreased from 1.95 to 0.95. Impression: There is a severe obstructive abnormality. There is significant improvement after inhaling a single dose of albuterol. The diffusing capacity unadjusted for hemoglobin and carboxyhemoglobin is severely decreased and remains severely decreased when adjusted for alveolar volume. In comparison to previous pulmonary function testing on 11/03/2019 there has been a greater than anticipated time dependent increase in the FVC, FEV1 and diffusing capacity. These results are consistent with worsening COPD now grade 3 group B COPD. 06/14/2024: Alpha 1 anti trypsin MZ. I will send an alpha 1 anti trypsin level. 05/03/2024: Home O2 assessment:? Rest nasal cannula 6 L saturation 90%.? Exercise nasal cannula 6 L saturation 79%.? Exercise nasal cannula 7 L saturation 84%.? Exercise nasal cannula 8 L saturation 87%.? Exercise nasal cannula 9 L saturation 90%. 05/02/2024: Overnight oximetry on 6 L nasal cannula.? Recording duration 6 hours and 3 minutes.? Average saturation 97%.? Low saturation 88%.? Time with saturation less than or equal to 88% was 4 minutes.? Oxygen desaturation index 2. 05/01/2024:? ABG on Airvo 35 L, 63% FiO2 pH 7.44/41/80. 05/01/24: CTA chest PE protocol Ordering provider: Antony Vieyra, History: 83 years Female with . SOB . Comparison: March 12, 2024 Technique: CT angiogram chest was performed following timed intravenous injection of contrast. Thin slice axial images and reformatted coronal images were obtained. Three dimensional reformatted images of the chest were also obtained using a [employer] workstation. . Automated exposure control and iterative reconstruction technique were employed. The dose-length product was 501.20 mGy- cm. 100 mL Omnipaque 350 was given IV. Findings: PULMONARY ARTERIES: No pulmonary embolus. VISUALIZED THORACIC INLET: Normal. MEDIASTINUM: Aorta/coronary arteries: Mild atheromatous disease. Heart/other: The heart is not enlarged. Lymph nodes: No mediastinal or hilar adenopathy. Precarinal lymph node is seen measuring 1.3 cm. LUNGS: Minimal atelectasis versus pneumonia in the lingula is noted. Underlying emphysematous changes. No pulmonary nodules or masses. No infiltrates or effusions. No pneumothorax. VISUALIZED UPPER ABDOMEN: Status post cholecystectomy. Markedly thickened wall of the stomach. Further evaluation advised. Otherwise, the visualized upper abdomen is normal. MUSCULOSKELETAL: Soft tissues: The superficial soft tissues are normal. Bones: Age appropriate degenerative changes of the spine. IMPRESSION: 1. No pulmonary embolism. 2. Atelectatic changes in the area of the lingula. Pneumonia is less likely. 3. Markedly thickened wall of the stomach. Further evaluation advised. 03/14/2024: Echo Summary 1. Complete two-dimensional, color flow and Doppler transthoracic echocardiogram is performed. 2. Left ventricular chamber dimension is normal. 3. 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 4. There is mild concentric increased left ventricular wall thickness. 5. Left ventricular systolic function is normal, estimated at 65-70%. 6. The left ventricular diastolic function is grade I diastolic dysfunction. 7. E/e' 11 is mildly elevated. 8. Left atrial chamber dimension is moderately enlarged. 9. There is mild aortic valve sclerosis. 10. There is trace tricuspid valve regurgitation. 11. No pulmonary hypertension, estimated pulmonary arterial systolic pressure is 23 mmHg. 12. There is trivial pericardial effusion. Right Ventricle Right ventricular systolic function is normal and with normal TAPSE 2.7 cm. Right ventricular chamber dimension is normal. Left Atria Left atrial chamber dimension is moderately enlarged. Right Atria Right atrial chamber dimension is normal. TTE @ [facility] 04/04/23 - EF 55-60%, LV diastolic function abnormal, RV volume and pressure overload. Normal RV systolic function. Stress Test 11/09/22 - Myocardial perfusion imaging demonstrating a fixed moderate size anteroseptal perfusion defect suggestive of breast attenuation artifact. No evidence of reversible ischemia. Negative lexiscan stress test for ischemic ST changes by ECG criteria. Stable hemodynamics throughout the test. Echo 06/02/23 - EF 55-60%, grade I diastolic dysfunction, no pulmHTN. Overnight ox on 3L 10/23/22 - 8min spent below 88% saturation (seems likely artifact). PFT 11/03/19 - Moderate airflow obstruction with hyperinflation, air trapping and severely reduced diffusion capacity; no acute bronchodilator response. This correlates with COPD. FEV1/FVC 42%, FEV1 0.93L (64%), TLC 129%, RV/TLC ration 57%, uncorrected DLCO 30%, DLCO corrected for alveolar volume 57%. Echo 05/2021 - EF 60-65%, diastolic dysfunction, moderate pulmHTN. Chest CT 04/12/20 - Right perihilar 9 mm nodule, likely benign given two-year stability. Moderate emphysema. This was PET-CT negative.? Review of Systems Constitutional: Constitutional: Reports no additional constitutional complaints Eyes: Eyes: Reports no additional eye complaints ENT: Reports system reviewed and no additional complaints, except as documented Cardiovascular: Cardiovascular: Reports no additional cardiovascular complai nts Respiratory: Respiratory: Reports no additional respiratory complaints Gastrointestinal: Gastrointestinal: Reports no additional gastrointestinal complaints Musculoskeletal: Musculoskeletal: Reports no additional musculoskeletal compl aints Neurologic: Reports system reviewed and no additional complaints, except as documented Psychiatric: Psychiatric: Reports no additional psychiatric complaints Endocrine: Endocrine: Reports no additional endocrine complaints Hematologic/Lymphatic: Hematologic/Lymphatic: Reports no additional hematologic/lymphatic complaints Allergic/Immunologic: Allergic/Immunologic: Reports no additional allergic/immunologic complaints Exam Const: General: cooperative, healthy appearing and comfortable Orientation/consciousness: oriented to person, oriented to place and oriented to time HENMT: Head: normal to inspection Ears: hearing grossly normal bilaterally Eyes: General: appearance normal, both eyes and all related structures Neck: Neck: normal visual inspection Chest: Chest palpation & inspection: normal inspection of the chest Resp: Effort & Inspection: normal respiratory effort and able to speak in complete sentences Auscultation: no crackles, no rales, no rhonchi, no wheezes and diminished lung sounds Cardio: Jugular venous distension: no JVD GI: Inspection: normal to inspection Skin: General skin exam: normal color Neuro: General: oriented to person, oriented to place and oriented to time Extrem: General: normal to inspection Psych: Appearance: grossly normal Objective Data Vital Signs Vital Signs: Vital Signs - 24 hr 08/28/24 11:40 08/28/24 12:00 08/28/24 12:00 Temperature 36.6 C Pulse Rate 66 70 Respiratory Rate 20 Blood Pressure 132/51 L Pulse Oximetry 95 95 Oxygen Delivery High Flow Nasal Cannula Oxygen Flow Rate 10 Fraction of Inspired Oxygen 08/28/24 13:00 08/28/24 13:45 08/28/24 13:53 Temperature Pulse Rate 68 65 Respiratory Rate 23 H 23 H Blood Pressure Pulse Oximetry 96 Oxygen Delivery High Flow Nasal Cannula Oxygen Flow Rate 8 Fraction of Inspired Oxygen 08/28/24 14:00 08/28/24 15:51 08/28/24 16:00 Temperature 36.9 C Pulse Rate 72 64 Respiratory Rate 20 Blood Pressure 143/51 H Pulse Oximetry 97 99 Oxygen Delivery High Flow Nasal Cannula Oxygen Flow Rate 10 Fraction of Inspired Oxygen 08/28/24 16:00 08/28/24 17:40 08/28/24 17:49 Temperature Pulse Rate 71 72 68 Respiratory Rate 23 H 23 H Blood Pressure Pulse Oximetry Oxygen Delivery Oxygen Flow Rate Fraction of Inspired Oxygen 08/28/24 18:00 08/28/24 20:00 08/28/24 20:00 Temperature 36.8 C Pulse Rate 74 77 72 Respiratory Rate 20 22 H Blood Pressure 150/53 H Pulse Oximetry 93 92 Oxygen Delivery High Flow Nasal Cannula Oxygen Flow Rate 9 Fraction of Inspired Oxygen 08/28/24 20:00 08/28/24 20:03 08/28/24 20:06 Temperature Pulse Rate 72 73 73 Respiratory Rate 22 H Blood Pressure Pulse Oximetry 97 Oxygen Delivery High Flow Nasal Cannula Oxygen Flow Rate 10 Fraction of Inspired Oxygen 08/28/24 20:14 08/28/24 21:03 08/28/24 22:00 Temperature Pulse Rate 73 78 76 Respiratory Rate 22 H Blood Pressure Pulse Oximetry Oxygen Delivery Oxygen Flow Rate Fraction of Inspired Oxygen 08/28/24 23:24 08/29/24 00:00 08/29/24 00:00 Temperature 36.7 C Pulse Rate 64 62 62 Respiratory Rate 20 20 Blood Pressure 135/50 L Pulse Oximetry 96 99 Oxygen Delivery High Flow Nasal Cannula Oxygen Flow Rate 9 Fraction of Inspired Oxygen 08/29/24 02:00 08/29/24 02:07 08/29/24 02:10 Temperature Pulse Rate 60 59 L 58 L Respiratory Rate 20 Blood Pressure Pulse Oximetry 100 Oxygen Delivery High Flow Nasal Cannula Oxygen Flow Rate 9 Fraction of Inspired Oxygen 08/29/24 02:19 08/29/24 03:39 08/29/24 03:39 Temperature Pulse Rate 59 L 62 62 Respiratory Rate 20 20 Blood Pressure Pulse Oximetry 100 Oxygen Delivery High Flow Nasal Cannula Oxygen Flow Rate 8 Fraction of Inspired Oxygen 100 08/29/24 04:00 08/29/24 05:37 08/29/24 07:50 Temperature 36.3 C L 36.4 C Pulse Rate 59 L 62 69 Respiratory Rate 20 22 H Blood Pressure 120/44 L 142/57 H Pulse Oximetry 100 97 Oxygen Delivery Oxygen Flow Rate Fraction of Inspired Oxygen 08/29/24 08:35 08/29/24 08:35 08/29/24 08:41 Temperature Pulse Rate 76 73 Respiratory Rate 18 18 Blood Pressure Pulse Oximetry 93 Oxygen Delivery Nasal Cannula Oxygen Flow Rate 10 Fraction of Inspired Oxygen 08/29/24 09:38 Temperature Pulse Rate 96 Respiratory Rate Blood Pressure Pulse Oximetry Oxygen Delivery Oxygen Flow Rate Fraction of Inspired Oxygen Intake/Output Intake/Output: Intake & Output 08/26/24 08/27/24 08/28/24 08/29/24 23:59 23:59 23:59 23:59 Intake Total 1610 480 Output Total 525 700 Balance 1085 -220 Meds/Results Medications: Active Medications Generic Name Dose Route Start Last Admin Trade Name Freq PRN Reason Stop Dose Admin Albuterol 2.5 mg 08/28/24 09:33 Albuterol Sulfate Neb 2.5 Mg/3 Ml Inh INHALATION Q4HRT PRN Shortness Of Breath Albuterol/Ipratropium 3 ml 08/28/24 08:00 08/29/24 08:35 Ipratropium 0.5 Mg/Albuterol Sulfate 2.5 Mg Ampul.Neb 3 Ml INHALATION 3 ml Q4HRT COCO Administration Alprazolam 0.5 mg 08/28/24 05:23 Alprazolam (*Crx) 0.5 Mg Tablet PO QID PRN Anxiety Aspirin 81 mg 08/28/24 09:00 08/29/24 09:37 Aspirin 81 Mg Enteric Tablet PO 81 mg DAILY COCO Administration Dextrose 12.5 gm 08/28/24 12:12 Dextrose 50% 25 Gm/50 Ml Syringe IV PUSH PRN PRN Hypoglycemia Protocol Escitalopram Oxalate 20 mg 08/28/24 09:00 08/29/24 09:38 Escitalopram Oxalate 10 Mg Tablet PO 20 mg DAILY COCO Administration Furosemide 40 mg 08/28/24 09:00 08/29/24 09:38 Furosemide 40 Mg Tablet PO 40 mg BID COCO Administration Glucagon 1 mg 08/28/24 12:12 Glucagon For Inj 1 Mg Vial IM PRN PRN Hypoglycemia Protocol Glucose 15 gm 08/28/24 12:12 Glucose Oral Gel 15 Gm Of Glucse In 37.5 Gm Tube PO PRN PRN Hypoglycemia Protocol Guaifenesin 1,200 mg 08/28/24 21:00 08/29/24 09:37 Guaifenesin 12 Hr 600 Mg Tabcr PO 1,200 mg Q12HR COCO Administration Azithromycin 500 mg/ Sodium 250 mls @ 250 mls/hr 08/28/24 21:00 08/28/24 22:05 Chloride IVPB Infused Q24H COCO Infusion Ceftriaxone Sodium 2 gm/ 100 mls @ 200 mls/hr 08/28/24 12:00 08/28/24 13:07 Sodium Chloride IVPB 200 mls/hr Q24H COCO Administration Dextrose 1,000 mls @ 100 mls/hr 08/28/24 12:12 Dextrose 5% 1,000 Ml IVPB PRN PRN Hypoglycemia Protocol Insulin Aspart 4 - 8 units 08/29/24 08:00 Insulin Aspart (*Bkc) 100 Units/Ml SUB-Q TIDWM COCO Protocol Insulin Aspart 2 - 4 units 08/28/24 21:00 08/28/24 21:05 Insulin Aspart (*Bkc) 100 Units/Ml SUB-Q 4 units HS COCO Administration Protocol Insulin Glargine 10 units 08/28/24 21:00 08/28/24 21:04 Insulin Glargine (*Bkc) 100 Units/Ml SUB-Q 10 units HS COCO Administration Levothyroxine Sodium 112 mcg 08/28/24 06:30 08/29/24 06:10 Levothyroxine Sodium 112 Mcg Tablet PO 112 mcg DAILY@0630 COCO Administration Levothyroxine Sodium 25 mcg 08/28/24 06:30 08/29/24 06:10 Levothyroxine Sodium 25 Mcg Tablet PO 25 mcg DAILY@0630 [facility] Administration Losartan Potassium 100 mg 08/28/24 09:00 08/29/24 09:37 Losartan Potassium 50 Mg Tablet PO 100 mg DAILY [facility] Administration Lovastatin 20 mg 08/28/24 21:00 08/28/24 21:04 Lovastatin 20 Mg Tablet PO 20 mg HS [facility] Administration Methylprednisolone Sodium Succinate 20 mg 08/28/24 18:00 08/29/24 06:10 Methylprednisolone Sod Succ 125 Mg Vial IV PUSH 20 mg Q6HR [facility] Administration Metoprolol Tartrate 25 mg 08/28/24 09:00 08/29/24 09:38 Metoprolol Tartrate 25 Mg Tablet PO 25 mg Q12HR [facility] Administration Montelukast Sodium 10 mg 08/28/24 18:00 08/28/24 18:47 Montelukast Sodium 10 Mg Tablet PO 10 mg QPM [facility] Administration Home Med (Ramelteon 8 mg 08/28/24 22:04 08/29/24 00:13 8 Mg Tablet) PO 09/27/24 22:03 8 mg HS PRN Administration Sleep Pantoprazole Sodium 40 mg 08/28/24 09:00 08/29/24 09:37 Pantoprazole 40 Mg Tablet PO 40 mg BID [facility] Administration Radiology Results: ITS Impressions Chest X-Ray 08/28/24 05:53 Impression: Clear lungs. Possible COPD. Chest CTA 08/28/24 17:14 IMPRESSION: Suboptimal evaluation of the bilateral lower lobe segmental and subsegmental pulmonary arteries. No CT evidence of acute pulmonary embolus in the adequately visualized vessels. Bilateral hilar lymphadenopathy Labs Labs: Laboratory Results - last 24 hr 08/28/24 08/28/24 08/28/24 03:11 11:16 13:27 WBC RBC Hgb Hct MCV MCH MCHC RDW Plt Count MPV Immature Gran % (Auto) Neut % (Auto) Lymph % (Auto) [place] % (Auto) Eos % (Auto) Baso % (Auto) Lymph # (Auto) [place] # (Auto) Eos # (Auto) Baso # (Auto) Abs Immat Gran (auto) Absolute Neuts (auto) Absolute Nucleated RBC Nucleated RBC % D-Dimer 0.68 H Sodium Potassium Chloride Carbon Dioxide Anion Gap BUN Creatinine Estim Creat Clear Calc Estimated GFR Glucose POC Capillary Glucose 377 H Hemoglobin A1c 7.5 H Calcium Total Bilirubin AST ALT Alkaline Phosphatase NT-Pro-B Natriuret Pep Total Protein Albumin Procalcitonin 08/28/24 08/28/24 08/29/24 15:23 20:48 05:05 WBC 16.0 H RBC 3.77 L Hgb 10.2 L Hct 34.5 L MCV 91.5 MCH 27.1 MCHC 29.6 L RDW 15.9 H Plt Count 261 MPV 11.1 H Immature Gran % (Auto) 0.8 H Neut % (Auto) 87.9 H Lymph % (Auto) 6.6 L [place] % (Auto) 4.6 Eos % (Auto) 0.0 Baso % (Auto) 0.1 L Lymph # (Auto) 1.05 [place] # (Auto) 0.7 H Eos # (Auto) 0.0 Baso # (Auto) 0.0 Abs Immat Gran (auto) 0.13 H Absolute Neuts (auto) 14.1 H Absolute Nucleated RBC 0.000 Nucleated RBC % 0.0 D-Dimer Sodium 137 Potassium 4.4 Chloride 100 Carbon Dioxide 30 Anion Gap 7 BUN 52 H Creatinine 1.37 H Estim Creat Clear Calc 20 Estimated GFR 37 L Glucose 178 H POC Capillary Glucose 408 H 356 H Hemoglobin A1c Calcium 8.8 Total Bilirubin 0.2 AST 29 ALT 28 Alkaline Phosphatase 69 NT-Pro-B Natriuret Pep 81166 H Total Protein 6.2 L Albumin 3.4 L Procalcitonin 0.7 08/29/24 08/29/24 07:20 09:22 WBC RBC Hgb Hct MCV MCH MCHC RDW Plt Count MPV Immature Gran % (Auto) Neut % (Auto) Lymph % (Auto) [place] % (Auto) Eos % (Auto) Baso % (Auto) Lymph # (Auto) [place] # (Auto) Eos # (Auto) Baso # (Auto) Abs Immat Gran (auto) Absolute Neuts (auto) Absolute Nucleated RBC Nucleated RBC % D-Dimer Sodium Potassium Chloride Carbon Dioxide Anion Gap BUN Creatinine Estim Creat Clear Calc Estimated GFR Glucose POC Capillary Glucose 178 H 338 H Hemoglobin A1c Calcium Total Bilirubin AST ALT Alkaline Phosphatase NT-Pro-B Natriuret Pep Total Protein Albumin Procalcitonin
[2024-08-29] MEDS: INSULIN ASPART (*BKC) 100 UNITS/ML SUB-Q ×2 (12:30→21:31)
[2024-08-29] MEDS: cefTRIAXone 2 GM in SODIUM CHLORIDE 0.9% IV 100 ML 200 ML IVPB (14:51)
--- NOTE | 2024-08-29 15:21 | PC.NURSE ---
Pt had oxygen increased twice today First, she was found to be 77% at rest on 8L and was increased to 10 L. Later, she was up to the chair and became short of breath. She was turned up to 12 L and put back to bed.
--- NOTE | 2024-08-29 16:27 | PCCDE ---
DM Consult received as well as call from RN with some specifics. Educator is at outpatient today. Called patients room phone however, no answer. Will reattempt tomorrow. SILVA
[2024-08-29] MEDS: INSULIN ASPART (*BKC) 100 UNITS/ML 15 UNITS SUB-Q (17:36)
[2024-08-29] MEDS: MONTELUKAST SODIUM 10 MG TABLET PO ×2 (17:36→17:40)
[2024-08-29] MEDS: LOVASTATIN 20 MG TABLET PO (21:28)
[2024-08-29] MEDS: AZITHROMYCIN IV 500 MG in SODIUM CHLORIDE 0.9% IV 250 ML IVPB (21:29)
[2024-08-29] MEDS: INSULIN GLARGINE (*BKC) 100 UNITS/ML 20 UNITS SUB-Q (21:30)
[2024-08-30] VITALS (20 sets, daily range): BP systolic 138–168; BP diastolic 57–80; PULSE 51–70; RESP 18–25; TEMP 36.4–36.6; O2SAT 92–100; BMI 25.4
--- NOTE | 2024-08-30 04:50 | PCRCNOTE ---
0200 neb tx was omitted due to oximetry study
[2024-08-30] MEDS: LEVOTHYROXINE SODIUM 112 MCG TABLET PO (05:37)
[2024-08-30] MEDS: LEVOTHYROXINE SODIUM 25 MCG TABLET PO (05:37)
[2024-08-30] MEDS: IPRATROPIUM 0.5 MG/ALBUTEROL SULFATE 2.5 MG AMPUL.NEB 3 ML INHALATION ×3 (08:15→20:57)
--- NOTE | 2024-08-30 08:17 | P.PNPL_ITS ---
Progress Note: A&P Assessment and Plan (1) COPD (chronic obstructive pulmonary disease): Qualifiers: COPD type: COPD with acute exacerbation Qualified Code(s): J44.1 - Chronic obstructive pulmonary disease with (acute) exacerbation Code(s): J44.9 - Chronic obstructive pulmonary disease, unspecified Status: Acute Assessment and Plan: Gold grade 3 group E COPD 67 PY tobacco use, quit 02/2019. 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 06/22/2024: PFTs with FEV1 0.81 L, 49% predicted, ratio 48%, DLCO 15% and when corrected for alveolar volume 29%. Positive bronchodilator response. PFTs 11/03/2019 with a moderate obstructive abnormality with an FEV1 0.93 L, 64% predicted. FEV1: FVC ratio 42%. No bronchodilator response. Air trapping, Severely decreased DLCO and remain moderately decreased when adjusted for alveolar volume. CT scan of chest 04/10/2019 and most recently on 05/01/2024 with severe centrilobular emphysema apices greater than bases. Chronic hypoxemic respiratory failure requiring 6 L at rest and 9 with activity per home O2 assessment 05/03/2024. Require 6 L nasal cannula at night per overnight oximetry 05/02/2024. at home requiring 8.5 L nasal cannula with rest saturations 86-92%, 8.5 L with activity saturations 86%. 05/01/2024 ABG on Airvo 35 L 63% pH 7.44/41/80. echocardiogram 03/14/2024 with LVEF 65-70, grade 1 diastolic dysfunction, moderately enlarged left atrium normal RV size and function. Normal right atrial size. Trace tricuspid valve regurg with PASP 23. Patient presents now with Hypoxemic respiratory failure leading to shortness of breath without cough, phlegm production or change in phlegm volume or color. She was in respiratory distress and placed on BiPAP with blood gas of 7.35/51/139. She had a leukocytosis, clear chest x-ray and a D-dimer that is positive. She was treated with magnesium, DuoNebs, epinephrine, Solu-Medrol, ceftriaxone and azithromycin. After 12 hours, patient denies fever, chills, rigors, cough, phlegm production or chest pain. She is on 12 L nasal cannula saturations 92%. She is in no respiratory distress and has no wheezing. Patient tells me she is breathing normal right now. patient tells me she gained 5 lb in the last week, had swelling 1 day [place] [address]. procalcitonin 0.3. COVID, influenza, RSV RT PCR assay negative. etiology of hypoxemic respiratory failure includes PE, mucus plugging, COPD exacerbation, fluid overload and or pneumonia Plan: I will order CT angiogram of the chest. Will hold Lasix at this time as she will receive a dye load. I will treat for mucus plugging with guaifenesin 1200 mg p.o. b.i.d, DuoNebs q.4 hours. Will treat for possible COPD exacerbation with Solu-Medrol 20 mg IV Q 6. Continue montelukast 10 Q.day. continue ceftriaxone and azithromycin day 1. I will send a respiratory pathogen panel, urine for Legionella, urine for pneumococcal disease and a serum mycoplasma IgM. Later in the day patient had a CT angiogram of the chest with motion artifact but no large central PEs, apical predominant centrilobular emphysema, no focal infiltrates, no nodules, no masses and no pleural effusions. 08/29/24: Overall the patient tells me she is breathing 90% back to her normal. She still has some rest shortness of breath. She denies cough, phlegm or hemoptysis. When I enter the room she was on 10 L nasal cannula saturation 93%. White blood cell count 16.0, creatinine 1.37, BNP has increased from 15,600 on 08/28/2024 to 50317 today. Procalcitonin has increased from 0.3 on 08/28/2024 to 0.7 today. Plan: I will change the patient's Solu-Medrol 20 q.6 to prednisone 40 q.day, d ay 2 of steroids. I will decrease the frequency of the DuoNeb from q.4 hours to q.6 hours. Continue guaifenesin 1200 p.o. b.i.d. and montelukast 10 q.day. although there is no focal infiltrate on the CT scan she has a persistent leukocytosis. I will continue ceftriaxone and azithromycin, both day 2. Goal saturation 90-94%. Currently the patient is on 10 L nasal cannula and required 12 L to get out of bed. Lower extremity Dopplers ordered. Respiratory pathogen panel, mycoplasma IgM, urine Legionella and urine pneumococcal antigen pending. Later in the day lower extremity Dopplers negative. 08/30/24: Patient tells me she is breathing 100% back to her normal. She slept okay on 10 L nasal cannula. She denies cough, phlegm or hemoptysis. She got out of bed to the chair yesterday. When I enter the room she was on 12 L with saturations 100%. I decreased her to 8 L and after 5 minutes her saturations decreased to 85%. I increased her back to 10 L and her saturations were 93%. She is afebrile. Yesterday she was -440 mL, cumulative since admission she is positive 965 mL. Her weight today is 59 kilos. Patient an overnight oximetry on 10 L with recording duration of 5 hours and 50 minutes. Average saturation 99%. Low saturation 92%. Time with saturation less than or equal to 88% was 0 minutes. Oxygen desaturation index 0.9. ABG on 10 L nasal cannula 7./6 9. Plan: Continue prednisone 40 mg p.o. q.day, day 3. Continue DuoNbs q.6 hours, guaifenesin 1200 b.i.d., montelukast 10 a day. Continue ceftriaxone and azithromycin, both day 3. Out of bed to chair. Respiratory pathogen panel pending. Discussed with Dr. Weaver, will follow with you. (2) Respiratory failure with hypoxia and hypercapnia: Code(s): J96.91 - Respiratory failure, unspecified with hypoxia; J96.92 - Respiratory failure, unspecified with hypercapnia Status: Acute Assessment and Plan: Chronic hypoxemic respiratory failure from COPD requiring 6 L at rest and 9 with activity per home O2 assessment 05/03/2024. Require 6 L nasal cannula at night per overnight oximetry 05/02/2024. At home requiring 8.5 L nasal cannula with rest saturations 86-92%, 8.5 L with activity saturations 86%. 08/30/2024: ABG on 10 L nasal cannula 7.39/. Patient has chronic hypercarbic respiratory failure from her COPD. Patient would benefit from noninvasive ventilation to prevent further deterioration and subsequent hospitalizations. I will place the patient on BiPAP no rate, pressures 15/5 and 44% FIO2. I have previously talked to [employer] about 210 L high-flow concentrator so that would be hooked up in series to give her high flow and at that time they thought she could be controlled with 1 10 L oxygen concentrator and a nasal cannula reservoir for Oxymizer. 08/28/24: Patient required BiPAP in the emergency for room for hypoxemic respiratory failure and work of breathing. ABG on BiPAP 12, pressures 14/8 and 100% was 7.35/51/139. Currently the patient is on 12 L nasal cannula saturations 92%. Plan: Goal saturation 90-94%. Patient can wear her BiPAP with the above settings on a p.r.n. basis during the day and night. Once the patient is improved and close to her baseline will repeat ABG after off being off BiPAP for 24 hours to reassess for chronic hypercarbic respiratory failure. 08/29/24: Patient did not require BiPAP last night. Currently she is on 10 L nasal cannula with saturations 93%. She required 12 L to get out of bed and had little stamina when she was sitting up. Plan: Goal saturation 90-94%. Tonight I will perform overnight oximetry on 10 L nasal cannula. I will repeat ABG tomorrow morning at 8:30 a.m. off of BiPAP for 48 hours to assess for chronic hypercarbic respiratory failure. 08/30/2024: ABG on 10 L nasal cannula 7.. Patient an overnight oximetry on 10 L with recording duration of 5 hours and 50 minutes. Average saturation 99%. Low saturation 92%. Time with saturation less than or equal to 88% was 0 minutes. Oxygen desaturation index 0.9. ABG on 10 L nasal cannula 7.. Plan: I will place the patient on BiPAP And adjusted the settings to comfort resulting in a rate of 4, pressures 12/4, inspiratory time 1.0, rise of 5 and 44% FiO2. Will check an overnight oximetry and an ABG prior to removal in the morning. Subjective Date/time seen: 08/30/24 08:17 Interval history: 08/28/2024: This is a new pulmonary consult for COPD exacerbation. 83-year-old with a history of COPD with hypoxic respiratory failure on 8.5 L with activity, rest and sleep, hypertension, diabetes, hyperlipidemia, hypothyroidism, CKD. patient is followed in the pulmonary clinic and last seen on 06/14/2024. she had dyspnea on exertion walking 5-6 steps worse over the last year, makes phlegm 1 time a week. Wearing 9 L at rest with saturations 92-93% and wearing 9 L with activity saturations 77-81. Wears 9 L at night. Her CAT score was 20. She was taking Breo Ellipta 1 puff a day, montelukast 10, DuoNebs q.6 and guaifenesin 600 b.i.d.. She is not smoking. I ordered an alpha 1 anti trypsin genotype, added Spiriva Respimat 2.5 twice a day. [facility] gave her headaches. [place] 600 dollars a month and could not afford. I ordered PFTs, referred her to pulmonary rehabilitation told her to increase to 10 and if she was still less than 88% would get her a 2nd high-flow oxygen concentrator. Family call me back and said she was hypoxemic on 9.5 L and I contacted the DME to give her a 2nd 10 L flow to maintain saturations 89% or greater. That day the [employer] company called me and said they would like to try an Oxymizer nasal cannula. alpha 1 antitrypsin MZ with a level of 115 which was normal. 07/20/24 1253 Patient states that Pulmonary Rehab is like $40 a week for 8 weeks and she can not afford that. 07/12/2024: PFTs with a severe obstructive abnormality, FEV1 0.80 L, 49% predicted, ratio 48%, positive bronchodilator response. Unable to complete plethysmography. DLCO severely decreased when adjusted for alveolar volume. In comparison to previous PFTs on 11/03/2019 there has been a greater than anticipated decrease in the FVC, FEV1 and diffusing capacity. Over the last 1 and half months the patient tells me that she was doing better. She was more active around the house and the granddaughter lives next her confirms this. The patient was wearing 8.5 L at rest with saturations 86-92%. The patient was wearing 8 9.5 L with activity and saturations were closer to 86 and she uses a scooter to get around the house. Over the last 2 weeks the patient states she gained 5 lb in last week and 1 day with pedal edema. Patient was in her usual state of health on 08/27/24 and said that she ate dinner and was normal. She was sitting on the side of her bed and on 8.5 L her saturations decreased to 81%. She denied fever, chills, rigors, cough, change in phlegm. She called her granddaughter who came over and 2 minutes and put her up to 10 L and her saturations were 79%. She then tried to change her to the tank with the Oxymizer nasal cannula her saturations on 6 L were 74% and on 8 L were 79%. EMS was called. The granddaughter noted that her breathing status was labored and she was breathing with her stomach. When EMS arrived her saturations were low and she was placed on 10 L non-rebreather. Patient was brought to the emergency room in respiratory distress, saturations on 10 L non- rebreather 54% blood pressure 138/78, respiratory rate 29 and Love patient was placed on BiPAP rate of 12, pressures 14/8 and 100% FiO2 and improved. Her white blood cell count was 22.9, her creatinine was 1.40, [place] [address], her chest x-ray showed clear lungs. COVID influenza and RSV RT PCR negative. Procalcitonin 0.3. ABG on BiPAP with settings above 7.35/51/139. Patient was treated with magnesium, hour lung nebulizer, epinephrine, Solu-Medrol 125, ceftriaxone and azithromycin. Patient was admitted to the floor. D-dimer 0.68 positive. Currently patient denies fever, chills, rigors, cough, phlegm production or chest pain. She is on 12 L nasal cannula saturations 92%. She is in no respiratory distress and has no wheezing. Patient tells me she is breathing normal right now. Later in the day patient had a CT angiogram of the chest with motion artifact but no large central PEs, apical predominant centrilobular emphysema, no focal infiltrates, no nodules, no masses and no pleural effusions. 08/29/24: Overall the patient tells me she is breathing 90% back to her normal. She still has some rest shortness of breath. She denies cough, phlegm or hemoptysis. When I enter the room she was on 10 L nasal cannula saturation 93%. White blood cell count 16.0, creatinine 1.37, BNP has increased from 15,600 on 08/28/2024 to 507[address] today. Procalcitonin has increased from 0.3 on 08/28/2024 to 0.7 today. Later in the day lower extremity Dopplers negative. 08/30/24: Patient tells me she is breathing 100% back to her normal. She slept okay on 10 L nasal cannula. She denies cough, phlegm or hemoptysis. She got out of bed to the chair yesterday. When I enter the room she was on 12 L with saturations 100%. I decreased her to 8 L and after 5 minutes her saturations decreased to 85%. I increased her back to 10 L and her saturations were 93%. She is afebrile. Yesterday she was -440 mL, cumulative since admission she is positive 965 mL. Her weight today is 59 kilos. Patient an overnight oximetry on 10 L with recording duration of 5 hours and 50 minutes. Average saturation 99%. Low saturation 92%. Time with saturation less than or equal to 88% was 0 minutes. Oxygen desaturation index 0.9. Patient tells me she feels well enough to be discharged home today. ABG on 10 L nasal cannula 7.39/56/69. DATA: 08/28/24: EXAMINATION: CTA chest PE protocol INDICATION: R/O PE COMPARISON: 05/01/2024. FINDINGS: Lung parenchyma and airways: Motion artifact, worst in the lower lobes. Emphysematous change. Lingular atelectasis/scar. Patent airways. Pleura: Unremarkable. Thoracic inlet, axillae and chest wall: Unremarkable. Thoracic aorta: No significant dilation. No dissection. Atherosclerotic calcif ication. Mediastinum: Dilated central pulmonary arteries as can be seen with pulmonary hypertension. Enlarged bilateral hilar lymph nodes. Heart and pericardium: Enlarged heart. Coronary artery calcifications: Heavy. Upper abdomen: Status post cholecystectomy. Bones: No acute osseous finding. Pulmonary arteries: Study quality: Motion artifact limits evaluation of the bilateral lower lobe segmental and subsegmental pulmonary arteries. No pulmonary emboli detected in the adequately visualized vessels. IMPRESSION: Suboptimal evaluation of the bilateral lower lobe segmental and subsegmental pulmonary arteries. No CT evidence of acute pulmonary embolus in the adequately visualized vessels. Bilateral hilar lymphadenopathy 07/12/2024: Alpha 1 anti trypsin level 115, normal 83-199. No intervention at this time. 07/12/2024: This is a pulmonary function test with pre and post-bronchodilator spirometry, and diffusing capacity. The test was performed and results interpreted in accordance with the 2019 and 2005 ATS/ERS Task Force guidelines respectively using the Global Lung Function Initiative-2012 reference equations. Patient demonstrated good effort and cooperation. Reproducibility criteria were met. Of note, the patient was unable to complete lung volume testing. Findings: Spirometry: There is decreased maximal expiratory flows at all lung volumes with a concave expiratory flow tracing. The contour the inspiratory flow tracing is truncated. The pre bronchodilator FVC is 1.68 L, 81% predicted. The pre bronchodilator FEV1 is 0.80 L, 49% predicted. The pre bronchodilator FEV1: FVC ratio is 48%. The post bronchodilator FVC is 2.09 L, representing a 24% increase. The post bronchodilator FEV1 is 0.86 L, representing an 8% increase. The post bronchodilator FEV1: FVC ratio is 41%. Diffusing capacity: The diffusing capacity unadjusted for hemoglobin and carboxyhemoglobin is 2.2, 15% predicted. The diffusing capacity adjusted for alveolar volume is 0.95, 29% predicted. In comparison to previous pulmonary function testing on 11/03/2019 the post bronchodilator FVC is decreased from 2.39 L to 2.09 L. The post bronchodilator FEV1 is decreased from 1.01 L to 0.86 L. the diffusing capacity unadjusted for hemoglobin and carboxyhemoglobin is decreased from 4.8 to 2.2. The diffusing capacity adjusted for alveolar volume is decreased from 1.95 to 0.95. Impression: There is a severe obstructive abnormality. There is significant improvement after inhaling a single dose of albuterol. The diffusing capacity unadjusted for hemoglobin and carboxyhemoglobin is severely decreased and remains severely decreased when adjusted for alveolar volume. In comparison to previous pulmonary function testing on 11/03/2019 there has been a greater than anticipated time dependent increase in the FVC, FEV1 and diffusing capacity. These results are consistent with worsening COPD now grade 3 group B COPD. 06/14/2024: Alpha 1 anti trypsin MZ. I will send an alpha 1 anti trypsin level. 05/03/2024: Home O2 assessment:? Rest nasal cannula 6 L saturation 90%.? Exercise nasal cannula 6 L saturation 79%.? Exercise nasal cannula 7 L saturation 84%.? Exercise nasal cannula 8 L saturation 87%.? Exercise nasal cannula 9 L saturation 90%. 05/02/2024: Overnight oximetry on 6 L nasal cannula.? Recording duration 6 hours and 3 minutes.? Average saturation 97%.? Low saturation 88%.? Time with saturation less than or equal to 88% was 4 minutes.? Oxygen desaturation index 2. 05/01/2024:? ABG on Airvo 35 L, 63% FiO2 pH 7.44/41/80. 05/01/24: CTA chest PE protocol Ordering provider: Antony Vieyra, History: 83 years Female with . SOB . Comparison: March 12, 2024 Technique: CT angiogram chest was performed following timed intravenous injection of contrast. Thin slice axial images and reformatted coronal images were obtained. Three dimensional reformatted images of the chest were also obtained using a [employer] workstation. . Automated exposure control and iterative reconstruction technique were employed. The dose-length product was 501.20 mGy- cm. 100 mL Omnipaque 350 was given IV. Findings: PULMONARY ARTERIES: No pulmonary embolus. VISUALIZED THORACIC INLET: Normal. MEDIASTINUM: Aorta/coronary arteries: Mild atheromatous disease. Heart/other: The heart is not enlarged. Lymph nodes: No mediastinal or hilar adenopathy. Precarinal lymph node is seen measuring 1.3 cm. LUNGS: Minimal atelectasis versus pneumonia in the lingula is noted. Underlying emphysematous changes. No pulmonary nodules or masses. No infiltrates or effusions. No pneumothorax. VISUALIZED UPPER ABDOMEN: Status post cholecystectomy. Markedly thickened wall of the stomach. Further evaluation advised. Otherwise, the visualized upper abdomen is normal. MUSCULOSKELETAL: Soft tissues: The superficial soft tissues are normal. Bones: Age appropriate degenerative changes of the spine. IMPRESSION: 1. No pulmonary embolism. 2. Atelectatic changes in the area of the lingula. Pneumonia is less likely. 3. Markedly thickened wall of the stomach. Further evaluation advised. 03/14/2024: Echo Summary 1. Complete two-dimensional, color flow and Doppler transthoracic echocardiogram is performed. 2. Left ventricular chamber dimension is normal. 3. 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 4. There is mild concentric increased left ventricular wall thickness. 5. Left ventricular systolic function is normal, estimated at 65-70%. 6. The left ventricular diastolic function is grade I diastolic dysfunction. 7. E/e' 11 is mildly elevated. 8. Left atrial chamber dimension is moderately enlarged. 9. There is mild aortic valve sclerosis. 10. There is trace tricuspid valve regurgitation. 11. No pulmonary hypertension, estimated pulmonary arterial systolic pressure is 23 mmHg. 12. There is trivial pericardial effusion. Right Ventricle Right ventricular systolic function is normal and with normal TAPSE 2.7 cm. Right ventricular chamber dimension is normal. Left Atria Left atrial chamber dimension is moderately enlarged. Right Atria Right atrial chamber dimension is normal. TTE @ [facility] 04/04/23 - EF 55-60%, LV diastolic function abnormal, RV volume and pressure overload. Normal RV systolic function. Stress Test 11/09/22 - Myocardial perfusion imaging demonstrating a fixed moderate size anteroseptal perfusion defect suggestive of breast attenuation artifact. No evidence of reversible ischemia. Negative lexiscan stress test for ischemic ST changes by ECG criteria. Stable hemodynamics throughout the test. Echo 06/02/23 - EF 55-60%, grade I diastolic dysfunction, no pulmHTN. Overnight ox on 3L 10/23/22 - 8min spent below 88% saturation (seems likely artifact). PFT 11/03/19 - Moderate airflow obstruction with hyperinflation, air trapping and severely reduced diffusion capacity; no acute bronchodilator response. This correlates with COPD. FEV1/FVC 42%, FEV1 0.93L (64%), TLC 129%, RV/TLC ration 57%, uncorrected DLCO 30%, DLCO corrected for alveolar volume 57%. Echo 05/2021 - EF 60-65%, diastolic dysfunction, moderate pulmHTN. Chest CT 04/12/20 - Right perihilar 9 mm nodule, likely benign given two-year stability. Moderate emphysema. This was PET-CT negative.? Review of Systems Constitutional: Constitutional: Reports no additional constitutional complain ts Eyes: Eyes: Reports no additional eye complaints ENT: Reports system reviewed and no additional complaints, except as documented Cardiovascular: Cardiovascular: Reports no additional cardiovascular complaints Respiratory: Respiratory: Reports no additional respiratory complaints Gastrointestinal: Gastrointestinal: Reports no additional gastrointestinal complaints Musculoskeletal: Musculoskeletal: Reports no additional musculoskeletal complaints Neurologic: Reports system reviewed and no additional complaints, except as documented Psychiatric: Psychiatric: Reports no additional psychiatric complaints Endocrine: Endocrine: Reports no additional endocrine complaints Hematologic/Lymphatic: Hematologic/Lymphatic: Reports no additional hematologic/lymphatic complaints Allergic/Immunologic: Allergic/Immunologic: Reports no additional allergic/imm unologic complaints Exam Const: General: cooperative, healthy appearing and comfortable Or ientation/consciousness: oriented to person, oriented to place and oriented to time HENMT: Head: normal to inspection Ears: hearing grossly normal bilaterally Eyes: General: appearance normal, both eyes and all related structures Neck: Neck: normal visual inspection Chest: Chest palpation & inspection: normal inspection of the chest Resp: Effort & Inspection: normal respiratory effort and able to speak in complete sentences Auscultation: no crackles, no rales, no rhonchi, no wheezes and diminished lung sounds Cardio: Jugular venous distension: no JVD GI: Inspection: normal to inspection Skin: General skin exam: normal color Neuro: General: oriented to person, oriented to place and oriented to time Extrem: General: normal to inspection Psych: Appearance: grossly normal Objective Data Vital Signs Vital Signs: Vital Signs - 24 hr 08/29/24 08:35 08/29/24 08:35 08/29/24 08:41 Temperature Pulse Rate 76 73 Respiratory Rate 18 18 Blood Pressure Pulse Oximetry 93 Oxygen Delivery Nasal Cannula Oxygen Flow Rate 10 Fraction of Inspired Oxygen 08/29/24 09:38 08/29/24 10:00 08/29/24 11:37 Temperature 36.3 C L Pulse Rate 96 65 59 L Respiratory Rate 21 H Blood Pressure 158/50 H Pulse Oximetry 100 Oxygen Delivery Oxygen Flow Rate Fraction of Inspired Oxygen 08/29/24 12:00 08/29/24 12:00 08/29/24 13:54 Temperature Pulse Rate 62 60 Respiratory Rate 18 Blood Pressure Pulse Oximetry 94 Oxygen Delivery High Flow Nasal Cannula Oxygen Flow Rate 10 Fraction of Inspired Oxygen 08/29/24 14:00 08/29/24 14:00 08/29/24 16:00 Temperature Pulse Rate 61 64 Respiratory Rate 18 Blood Pressure Pulse Oximetry 99 Oxygen Delivery High Flow Nasal Cannula Oxygen Flow Rate 12 Fraction of Inspired Oxygen 08/29/24 16:00 08/29/24 16:12 08/29/24 20:00 Temperature 36.5 C 36.3 C L Pulse Rate 65 64 70 Respiratory Rate 20 20 Blood Pressure 144/49 H 144/61 H Pulse Oximetry 99 98 Oxygen Delivery Oxygen Flow Rate Fraction of Inspired Oxygen 08/29/24 20:00 08/29/24 20:00 08/29/24 20:15 Temperature Pulse Rate 69 69 72 Respiratory Rate 18 18 Blood Pressure Pulse Oximetry 95 Oxygen Delivery High Flow Nasal Cannula Oxygen Flow Rate 10 Fraction of Inspired Oxygen 100 08/29/24 20:15 08/29/24 20:25 08/29/24 20:38 Temperature Pulse Rate 72 Respiratory Rate 18 Blood Pressure Pulse Oximetry 84 L 95 Oxygen Delivery High Flow Nasal Cannula High Flow Nasal Cannula Oxygen Flow Rate 8 10 Fraction of Inspired Oxygen 08/29/24 21:28 08/29/24 21:59 08/29/24 23:19 Temperature Pulse Rate 68 69 54 L Respiratory Rate 18 Blood Pressure Pulse Oximetry 95 Oxygen Delivery High Flow Nasal Cannula Oxygen Flow Rate 10 Fraction of Inspired Oxygen 08/29/24 23:19 08/29/24 23:45 08/30/24 02:00 Temperature 36.4 C Pulse Rate 55 L 59 L 58 L Respiratory Rate 20 Blood Pressure 131/46 L Pulse Oximetry 100 Oxygen Delivery Oxygen Flow Rate Fraction of Inspired Oxygen 08/30/24 04:00 08/30/24 04:00 08/30/24 04:00 Temperature 36.4 C Pulse Rate 51 L 51 L 69 Respiratory Rate 20 20 Blood Pressure 143/80 H Pulse Oximetry 100 92 Oxygen Delivery High Flow Nasal Cannula Oxygen Flow Rate 10 Fraction of Inspired Oxygen 100 08/30/24 06:00 Temperature Pulse Rate 62 Respiratory Rate Blood Pressure Pulse Oximetry Oxygen Delivery Oxygen Flow Rate Fraction of Inspired Oxygen Intake/Output Intake/Output: Intake & Output 08/27/24 08/28/24 08/29/24 08/30/24 23:59 23:59 23:59 23:59 Intake Total 1710 1360 520 Output Total 525 1800 300 Balance 1185 -440 220 Meds/Results Medications: Active Medications Generic Name Dose Route Start Last Admin Trade Name Freq PRN Reason Stop Dose Admin Albuterol 2.5 mg 08/28/24 09:33 Albuterol Sulfate Neb 2.5 Mg/3 Ml Inh INHALATION Q4HRT PRN Shortness Of Breath Albuterol/Ipratropium 3 ml 08/29/24 14:00 08/30/24 08:15 Ipratropium 0.5 Mg/Albuterol Sulfate 2.5 Mg Ampul.Neb 3 Ml INHALATION 3 ml Q6HRT COCO Administration Alprazolam 0.5 mg 08/28/24 05:23 Alprazolam (*Crx) 0.5 Mg Tablet PO QID PRN Anxiety Aspirin 81 mg 08/28/24 09:00 08/29/24 09:37 Aspirin 81 Mg Enteric Tablet PO 81 mg DAILY COCO Administration Dextrose 12.5 gm 08/28/24 12:12 Dextrose 50% 25 Gm/50 Ml Syringe IV PUSH PRN PRN Hypoglycemia Protocol Escitalopram Oxalate 20 mg 08/28/24 09:00 08/29/24 09:38 Escitalopram Oxalate 10 Mg Tablet PO 20 mg DAILY COCO Administration Furosemide 40 mg 08/28/24 09:00 08/29/24 17:40 Furosemide 40 Mg Tablet PO 40 mg BID COCO Administration Glucagon 1 mg 08/28/24 12:12 Glucagon For Inj 1 Mg Vial IM PRN PRN Hypoglycemia Protocol Glucose 15 gm 08/28/24 12:12 Glucose Oral Gel 15 Gm Of Glucse In 37.5 Gm Tube PO PRN PRN Hypoglycemia Protocol Guaifenesin 1,200 mg 08/28/24 21:00 08/29/24 21:27 Guaifenesin 12 Hr 600 Mg Tabcr PO 1,200 mg Q12HR COCO Administration Azithromycin 500 mg/ Sodium 250 mls @ 250 mls/hr 08/28/24 21:00 08/29/24 21:29 Chloride IVPB 250 mls/hr Q24H COCO Administration Ceftriaxone Sodium 2 gm/ 100 mls @ 200 mls/hr 08/28/24 12:00 08/29/24 14:51 Sodium Chloride IVPB 200 mls/hr Q24H COCO Administration Dextrose 1,000 mls @ 100 mls/hr 08/28/24 12:12 Dextrose 5% 1,000 Ml IVPB PRN PRN Hypoglycemia Protocol Insulin Aspart 4 - 8 units 08/29/24 08:00 08/29/24 17:37 Insulin Aspart (*Bkc) 100 Units/Ml SUB-Q Not Given TIDWM [facility] Protocol Insulin Aspart 2 - 4 units 08/28/24 21:00 08/29/24 21:31 Insulin Aspart (*Bkc) 100 Units/Ml SUB-Q 4 units HS COCO Administration Protocol Insulin Aspart 6 units 08/30/24 08:00 Insulin Aspart (*Bkc) 100 Units/Ml 0.1 units/kg (6 units) SUB-Q TIDWM COCO Insulin Glargine 20 units 08/29/24 21:00 08/29/24 21:30 Insulin Glargine (*Bkc) 100 Units/Ml SUB-Q 20 units HS COCO Administration Levothyroxine Sodium 112 mcg 08/28/24 06:30 08/30/24 05:37 Levothyroxine Sodium 112 Mcg Tablet PO 112 mcg DAILY@0630 COCO Administration Levothyroxine Sodium 25 mcg 08/28/24 06:30 08/30/24 05:37 Levothyroxine Sodium 25 Mcg Tablet PO 25 mcg DAILY@0630 COCO Administration Losartan Potassium 100 mg 08/28/24 09:00 08/29/24 09:37 Losartan Potassium 50 Mg Tablet PO 100 mg DAILY COCO Administration Lovastatin 20 mg 08/28/24 21:00 08/29/24 21:28 Lovastatin 20 Mg Tablet PO 20 mg HS COCO Administration Metoprolol Tartrate 25 mg 08/28/24 09:00 08/29/24 21:28 Metoprolol Tartrate 25 Mg Tablet PO 25 mg Q12HR COCO Administration Montelukast Sodium 10 mg 08/28/24 18:00 08/29/24 17:40 Montelukast Sodium 10 Mg Tablet PO 10 mg QPM COCO Administration Home Med (Ramelteon 8 mg 08/28/24 22:04 08/29/24 21:28 8 Mg Tablet) PO 09/27/24 22:03 8 mg HS PRN Administration Sleep Pantoprazole Sodium 40 mg 08/28/24 09:00 08/29/24 17:40 Pantoprazole 40 Mg Tablet PO 40 mg BID COCO Administration Prednisone 40 mg 08/29/24 10:55 08/29/24 12:12 Prednisone 20 Mg Tablet PO 40 mg DAILY@0800 COCO Administration Radiology Results: ITS Impressions Chest X-Ray 08/28/24 05:53 Impression: Clear lungs. Possible COPD. Chest CTA 08/28/24 17:14 IMPRESSION: Suboptimal evaluation of the bilateral lower lobe segmental and subsegmental pulmonary arteries. No CT evidence of acute pulmonary embolus in the adequately visualized vessels. Bilateral hilar lymphadenopathy Venous Doppler Study 08/29/24 18:40 IMPRESSION: 1. No deep venous thrombosis in either lower limb. Labs Labs: Laboratory Results - last 24 hr 08/29/24 08/29/24 08/29/24 09:22 11:22 15:23 POC Capillary Glucose 338 H 377 H 428 H 08/29/24 21:03 POC Capillary Glucose 360 H
[2024-08-30 08:19] LABS: Alveolar/Arterial O2 Gradient 297.4 mmHg; Carboxyhemoglobin 0.3 % THb (0-2.0); Fractional Inspired Oxygen 60 %; HCO3 ABG 32.4 mEq/l (22.0-26.0); Methemoglobin ABG 0.1 %THb (0-1.5); Oxygen Content ABG 15.4 %vol (16.0-22.0); Oxygen Saturation ABG 93.0 % (95.0-100.0); PCO2 ABG 56.3 mmHg (35.0-45.0); PO2 ABG 68.5 mmHg (80.0-100.0); PO2 FiO2 Ratio Arterial Blood 1.14 %; Reduced Hemoglobin 7.2 %THb (0-5.0)
[2024-08-30 08:20] LABS: Liters per Minute 10.0 LPM; Modified Allen's Test Pass; Site Drawn RIGHT RADIAL
[2024-08-30] MEDS: INSULIN ASPART (*BKC) 100 UNITS/ML 6 UNITS SUB-Q ×3 (08:56→16:51)
[2024-08-30] MEDS: LOSARTAN POTASSIUM 50 MG TABLET 100 MG PO (08:57)
[2024-08-30] MEDS: guaiFENesin 12 HR 600 MG TABCR 1200 MG PO ×2 (08:57→20:45)
[2024-08-30] MEDS: ESCITALOPRAM OXALATE 10 MG TABLET 20 MG PO (08:58)
[2024-08-30] MEDS: METOPROLOL TARTRATE 25 MG TABLET PO ×2 (08:58→20:47)
[2024-08-30 08:59] LABS: Hematocrit 35.7 % (37.0-47.0); Hemoglobin 10.4 g/dL (12.0-15.0); Mean Corpuscular HGB Conc 29.1 g/dl (32-36); Mean Corpuscular Hemoglobin 27.1 pg (26-34); Mean Corpuscular Volume 93.0 fl (80-100); Platelet Count Result 266 k/mm3 (150-375); Red Blood Count 3.84 M/mm3 (4.2-5.4); White Blood Count 14.5 K/mm3 (4.5-10.0)
[2024-08-30] MEDS: ASPIRIN 81 MG ENTERIC TABLET PO (08:59)
[2024-08-30 09:45] LABS: Anion Gap 5 mmol/L (4-12); Blood Urea Nitrogen 52 mg/dL (7-17); Calcium 8.9 mg/dL (8.4-10.2); Carbon Dioxide 34 mmol/L (22-30); Chloride 100 mmol/L (98-107); Estimated CRCL calculation 21 ml/min; Estimated Glomerular Filt Rate 39; Glucose 212 mg/dL (65-110); Potassium 4.0 mmol/L (3.4-5.0); Sodium 139 mmol/L (137-145)
[2024-08-30] MEDS: cefTRIAXone 2 GM in SODIUM CHLORIDE 0.9% IV 100 ML 200 ML IVPB (12:22)
--- NOTE | 2024-08-30 12:55 | PCCDE ---
08/30 Re-attempted phone consult with patient (I am currently at outpatient wellness center) When I didn't reach pt, I reached out to [facility]; pt on Bipap, N/A currently. No urgent DM needs.
--- NOTE | 2024-08-30 14:05 | P.PNIM_ITS ---
Progress Note: A&P Assessment and Plan (1) Diastolic congestive heart failure: Code(s): I50.30 - Unspecified diastolic (congestive) heart failure Status: Acute (2) Insulin dependent diabetes mellitus: Status: Acute (3) COPD exacerbation: Code(s): J44.1 - Chronic obstructive pulmonary disease with (acute) exacerbation Status: Acute (4) Acute and chronic respiratory failure with hypoxia: Code(s): J96.21 - Acute and chronic respiratory failure with hypoxia Status: Acute Plan 83-year-old female with a past medical history formal tobacco abuse, hypothyroidism, hyperlipidemia, insulin dependent diabetes mellitus, hypertension, CAD, CKD, COPD, chronic respiratory failure with continuous home O2 use. She presents a [facility] on 08/28/2024 as she was found to be hypoxic and tachypneic with shortness of breath and wheezing. She lives with her family member. Patient was placed on 10 L non-rebreather, given 2 g IV magnesium, epinephrine, 125 mg IV Solu-Medrol, 3 DuoNebs treatments and brought to the ER. At that time she was saturating 54% on non-rebreather. She was placed on BiPAP and had symptomatic relief. On the BiPAP with 100% FiO2 her pH was 7.347, pCO2 50.9, PO2 139, bicarb 27.3. She was also given a continuous DuoNeb treatment, azithromycin and ceftriaxone. Her WBC count 22.9, BUN 43, serum creatinine 1.40, quad viral screen negative, BNP 17823, troponin 0.031. Chest x-ray did not demonstrate any acute findings. The patient reiterated her DNR status. She otherwise denied fever, cough worse than her usual, sputum production, chest pain. Acute on chronic hypoxic respiratory failure with hypoxemia and hypercapnia COPD exacerbation Community-acquired pneumonia on BiPAP currently on 100% FiO2 and being weaned down. on DuoNebs q.4 hours, methylprednisolone 20 mg IV Q 6 Quad viral screen negative. X-ray showed increased interstitial patchy infiltrate bilateral lower lobes. Patient has leukocytosis, suspecting acute bacterial bronchitis and pneumonia will continue prednisone. Continue Iv Abx Rocephin and azithromycin. plan to do overnight Oximetry. pulm team on board Condition improving, changed to oral prednisone today 08/29 Diastolic heart failure compensated Possible decompensated due to COPD exacerbation, Echocardiogram showed EF 65-70%, grade 1 diastolic dysfunction Continue to monitor closely. Continue home medications metoprolol, Lasix 40 mg p.o. b.i.d. -daily weights, strict intake/output, heart healthy diet CKD stage IIIB Elevated BUN creatinine ratio Slightly above baseline CAD: Denies chest pain Resume [employer] aspirin, lovastatin GERD Continue Protonix 40 mg daily p.o. Hypertension: Resume [employer] metoprolol, losartan, Lasix Insulin-dependent diabetes mellitus: Resume [employer] Lantus 10 units q.h.s., sliding scale with Accu-Cheks a.c. HS DNR. Patient lives with family member. . Subjective Date/time seen: 08/30/24 14:05 Interval history: per HPI 83-year-old female with a past medical history formal tobacco abuse, hypothyroidism, hyperlipidemia, insulin dependent diabetes mellitus, hypertension, CAD, CKD, COPD, chronic respiratory failure with continuous home O2 use. She presents a [facility] ER on 08/28/2024 as she was found to be hypoxic and tachypneic with shortness of breath and wheezing. She lives with her family member. Patient was placed on 10 L non-rebreather, given 2 g IV magnesium, epinephrine, 125 mg IV Solu-Medrol, 3 DuoNebs treatments and brought to the ER. At that time she was saturating 54% on non-rebreather. She was placed on BiPAP and had symptomatic relief. On the BiPAP with 100% FiO2 her pH was 7.347, pCO2 50.9, PO2 139, bicarb 27.3. She was also given a continuous DuoNeb treatment, azithromycin and ceftriaxone. Her WBC count 22.9, BUN 43, serum creatinine 1.40, quad viral screen negative, BNP 74562, troponin 0.031. Chest x-ray did not demonstrate any acute findings. The patient reiterated her DNR status. She otherwise denied fever, cough worse than her usual, sputum production, chest pain. 08/30/24 patient was seen and examined at bedside. Patient off BiPAP now, patient is on high-flow oxygen via nasal cannular on 10 L o2 Patient feels better Denies chest pain abdomen pain nausea vomiting diarrhea pulmonary team on board. will continue prednisone. Continue Iv Abx Rocephin and azithromycin. plan to do overnight Oximetry. Exam Narrative: GENERAL: Pleasant, in no acute distress. Well-nourished. - EYES: EOMI. Anicteric. - HENT: Moist mucous membranes. - LUNGS: Coarse breath sound bilaterall y - CARDIOVASCULAR: Regular rate and rhyth m. No murmur. No JVD. - ABDOMEN: Soft, non-tender and non-dist ended. No palpable masses. - EXTREMITIES: No edema. Peripheral puls es 2+. Non-tender. - NEUROLOGIC: No focal neurological defi cits. CN II-XII grossly intact. - PSYCHIATRIC: Awake, Alert and oriented x 3. Appropriate mood and affect. - SKIN: No rashes or lesions. Warm. - LYMPH: No cervical lymphadenopathy. Objective Data Vital Signs Vital Signs: Vital Signs - 24 hr 08/29/24 16:00 08/29/24 16:00 08/29/24 16:12 Temperature 97.7 F Pulse Rate 65 64 Respiratory Rate 20 Blood Pressure 144/49 H Pulse Oximetry 99 99 Oxygen Delivery High Flow Nasal Cannula Oxygen Flow Rate 12 Fraction of Inspired Oxygen 08/29/24 20:00 08/29/24 20:00 08/29/24 20:00 Temperature 97.4 F L Pulse Rate 70 69 69 Respiratory Rate 20 18 Blood Pressure 144/61 H Pulse Oximetry 98 95 Oxygen Delivery High Flow Nasal Cannula Oxygen Flow Rate 10 Fraction of Inspired Oxygen 100 08/29/24 20:15 08/29/24 20:15 08/29/24 20:25 Temperature Pulse Rate 72 72 Respiratory Rate 18 18 Blood Pressure Pulse Oximetry 84 L Oxygen Delivery High Flow Nasal Cannula Oxygen Flow Rate 8 Fraction of Inspired Oxygen 08/29/24 20:38 08/29/24 21:28 08/29/24 21:59 Temperature Pulse Rate 68 69 Respiratory Rate Blood Pressure Pulse Oximetry 95 Oxygen Delivery High Flow Nasal Cannula Oxygen Flow Rate 10 Fraction of Inspired Oxygen 08/29/24 23:19 08/29/24 23:19 08/29/24 23:45 Temperature 97.6 F Pulse Rate 54 L 55 L 59 L Respiratory Rate 18 20 Blood Pressure 131/46 L Pulse Oximetry 95 100 Oxygen Delivery High Flow Nasal Cannula Oxygen Flow Rate 10 Fraction of Inspired Oxygen 08/30/24 02:00 08/30/24 04:00 08/30/24 04:00 Temperature Pulse Rate 58 L 51 L 51 L Respiratory Rate 20 Blood Pressure Pulse Oximetry 100 Oxygen Delivery High Flow Nasal Cannula Oxygen Flow Rate 10 Fraction of Inspired Oxygen 100 08/30/24 04:00 08/30/24 06:00 08/30/24 08:00 Temperature 97.6 F Pulse Rate 69 62 67 Respiratory Rate 20 Blood Pressure 143/80 H Pulse Oximetry 92 Oxygen Delivery Oxygen Flow Rate Fraction of Inspired Oxygen 08/30/24 08:00 08/30/24 08:15 08/30/24 08:15 Temperature 97.8 F Pulse Rate 66 70 Respiratory Rate 22 H 20 Blood Pressure 138/57 L Pulse Oximetry 97 92 Oxygen Delivery High Flow Nasal Cannula Oxygen Flow Rate 10 Fraction of Inspired Oxygen 08/30/24 08:26 08/30/24 08:58 08/30/24 11:30 Temperature 98 F Pulse Rate 65 58 L 66 Respiratory Rate 20 20 Blood Pressure 138/57 L Pulse Oximetry 95 Oxygen Delivery Oxygen Flow Rate Fraction of Inspired Oxygen 08/30/24 12:00 08/30/24 13:00 08/30/24 13:00 Temperature Pulse Rate 66 57 L 57 L Respiratory Rate 25 H 25 H Blood Pressure Pulse Oximetry 97 Oxygen Delivery Oxygen Flow Rate Fraction of Inspired Oxygen 08/30/24 13:10 Temperature Pulse Rate 55 L Respiratory Rate 20 Blood Pressure Pulse Oximetry Oxygen Delivery Oxygen Flow Rate Fraction of Inspired Oxygen Intake/Output Intake/Output: Intake & Output 08/27/24 08/28/24 08/29/24 08/30/24 23:59 23:59 23:59 23:59 Intake Total 1710 1460 960 Output Total 525 1800 300 Balance 1185 -340 660 Meds/Results Medications: Active Medications Generic Name Dose Route Start Last Admin Trade Name Freq PRN Reason Stop Dose Admin Albuterol 2.5 mg 08/28/24 09:33 Albuterol Sulfate Neb 2.5 Mg/3 Ml Inh INHALATION Q4HRT PRN Shortness Of Breath Albuterol/Ipratropium 3 ml 08/29/24 14:00 08/30/24 13:01 Ipratropium 0.5 Mg/Albuterol Sulfate 2.5 Mg Ampul.Neb 3 Ml INHALATION 3 ml Q6HRT COCO Administration Alprazolam 0.5 mg 08/28/24 05:23 Alprazolam (*Crx) 0.5 Mg Tablet PO QID PRN Anxiety Aspirin 81 mg 08/28/24 09:00 08/30/24 08:59 Aspirin 81 Mg Enteric Tablet PO 81 mg DAILY COCO Administration Azithromycin 500 mg 08/30/24 21:00 Azithromycin 250 Mg Tablet PO 09/01/24 21:01 QHS COCO Dextrose 12.5 gm 08/28/24 12:12 Dextrose 50% 25 Gm/50 Ml Syringe IV PUSH PRN PRN Hypoglycemia Protocol Escitalopram Oxalate 20 mg 08/28/24 09:00 08/30/24 08:58 Escitalopram Oxalate 10 Mg Tablet PO 20 mg DAILY COCO Administration Furosemide 40 mg 08/28/24 09:00 08/29/24 17:40 Furosemide 40 Mg Tablet PO 40 mg BID COCO Administration Glucagon 1 mg 08/28/24 12:12 Glucagon For Inj 1 Mg Vial IM PRN PRN Hypoglycemia Protocol Glucose 15 gm 08/28/24 12:12 Glucose Oral Gel 15 Gm Of Glucse In 37.5 Gm Tube PO PRN PRN Hypoglycemia Protocol Guaifenesin 1,200 mg 08/28/24 21:00 08/30/24 08:57 Guaifenesin 12 Hr 600 Mg Tabcr PO 1,200 mg Q12HR COCO Administration Dextrose 1,000 mls @ 100 mls/hr 08/28/24 12:12 Dextrose 5% 1,000 Ml IVPB PRN PRN Hypoglycemia Protocol Insulin Aspart 4 - 8 units 08/29/24 08:00 08/30/24 12:19 Insulin Aspart (*Bkc) 100 Units/Ml SUB-Q Not Given TIDWM [facility] Protocol Insulin Aspart 2 - 4 units 08/28/24 21:00 08/29/24 21:31 Insulin Aspart (*Bkc) 100 Units/Ml SUB-Q 4 units HS [facility] Administration Protocol Insulin Aspart 6 units 08/30/24 08:00 08/30/24 12:20 Insulin Aspart (*Bkc) 100 Units/Ml 0.1 units/kg (6 units) 6 units SUB-Q Administration TIDWM [facility] Insulin Glargine 20 units 08/29/24 21:00 08/29/24 21:30 Insulin Glargine (*Bkc) 100 Units/Ml SUB-Q 20 units HS COCO Administration Levothyroxine Sodium 112 mcg 08/28/24 06:30 08/30/24 05:37 Levothyroxine Sodium 112 Mcg Tablet PO 112 mcg DAILY@0630 COCO Administration Levothyroxine Sodium 25 mcg 08/28/24 06:30 08/30/24 05:37 Levothyroxine Sodium 25 Mcg Tablet PO 25 mcg DAILY@0630 COCO Administration Losartan Potassium 100 mg 08/28/24 09:00 08/30/24 08:57 Losartan Potassium 50 Mg Tablet PO 100 mg DAILY COCO Administration Lovastatin 20 mg 08/28/24 21:00 08/29/24 21:28 Lovastatin 20 Mg Tablet PO 20 mg HS COCO Administration Metoprolol Tartrate 25 mg 08/28/24 09:00 08/30/24 08:58 Metoprolol Tartrate 25 Mg Tablet PO 25 mg Q12HR COCO Administration Montelukast Sodium 10 mg 08/28/24 18:00 08/29/24 17:40 Montelukast Sodium 10 Mg Tablet PO 10 mg QPM COCO Administration Home Med (Ramelteon 8 mg 08/28/24 22:04 08/29/24 21:28 8 Mg Tablet) PO 09/27/24 22:03 8 mg HS PRN Administration Sleep Pantoprazole Sodium 40 mg 08/28/24 09:00 08/29/24 17:40 Pantoprazole 40 Mg Tablet PO 40 mg BID COCO Administration Prednisone 40 mg 08/29/24 10:55 08/30/24 08:58 Prednisone 20 Mg Tablet PO 40 mg DAILY@0800 COCO Administration Radiology Results: ITS Impressions Chest X-Ray 08/28/24 05:53 Impression: Clear lungs. Possible COPD. Chest CTA 08/28/24 17:14 IMPRESSION: Suboptimal evaluation of the bilateral lower lobe segmental and subsegmental pulmonary arteries. No CT evidence of acute pulmonary embolus in the adequately visualized vessels. Bilateral hilar lymphadenopathy Venous Doppler Study 08/29/24 18:40 IMPRESSION: 1. No deep venous thrombosis in either lower limb. Labs Labs: Laboratory Results - last 24 hr 08/29/24 08/29/24 08/30/24 15:23 21:03 08:02 WBC RBC Hgb Hct MCV MCH MCHC RDW Plt Count MPV Puncture Site ABG pH ABG pCO2 ABG pO2 ABG PO2/FiO2 Ratio ABG HCO3 ABG O2 Saturation ABG O2 Content ABG Base Excess A-a Gradient Oxyhemoglobin Carboxyhemoglobin Methemoglobin Reduced Hemoglobin Total Hemoglobin O2 Delivery Device O2 Liters/Min FiO2 Sodium Potassium Chloride Carbon Dioxide Anion Gap BUN Creatinine Estim Creat Clear Calc Estimated GFR Glucose POC Capillary Glucose 428 H 360 H 119 H Calcium 08/30/24 08/30/24 08/30/24 08:14 08:52 11:28 WBC 14.5 H RBC 3.84 L Hgb 10.4 L Hct 35.7 L MCV 93.0 MCH 27.1 MCHC 29.1 L RDW 15.9 H Plt Count 266 MPV 10.9 H Puncture Site Right radial ABG pH 7.378 ABG pCO2 56.3 H ABG pO2 68.5 L ABG PO2/FiO2 Ratio 1.14 ABG HCO3 32.4 H ABG O2 Saturation 93.0 L ABG O2 Content 15.4 L ABG Base Excess 5.9 A-a Gradient 297.4 Oxyhemoglobin 92.4 Carboxyhemoglobin 0.3 Methemoglobin 0.1 Reduced Hemoglobin 7.2 H Total Hemoglobin 11.8 L O2 Delivery Device High flow nasal jimbo O2 Liters/Min 10.0 FiO2 60 Sodium 139 Potassium 4.0 Chloride 100 Carbon Dioxide 34 H Anion Gap 5 BUN 52 H Creatinine 1.32 H Estim Creat Clear Calc 21 Estimated GFR 39 L Glucose 212 H POC Capillary Glucose 163 H Calcium 8.9
[2024-08-30] MEDS: FUROSEMIDE 40 MG TABLET PO (16:50)
[2024-08-30] MEDS: PANTOPRAZOLE 40 MG TABLET PO (16:50)
[2024-08-30] MEDS: INSULIN ASPART (*BKC) 100 UNITS/ML SUB-Q (16:51)
[2024-08-30] MEDS: AZITHROMYCIN 250 MG TABLET 500 MG PO (20:46)
[2024-08-30] MEDS: LOVASTATIN 20 MG TABLET PO (20:47)
[2024-08-30] MEDS: INSULIN GLARGINE (*BKC) 100 UNITS/ML 20 UNITS SUB-Q (20:48)
[2024-08-30] MEDS: RAMELTEON 8 MG 8 EACH PO (20:49)
[2024-08-31] VITALS (17 sets, daily range): BP systolic 129–170; BP diastolic 51–62; PULSE 39–63; RESP 18–22; TEMP 36.5–36.6; O2SAT 93–100
[2024-08-31] MEDS: DEXTROSE 50% 25 GM/50 ML SYRINGE IV PUSH (01:43)
[2024-08-31 05:10] LABS: Alveolar/Arterial O2 Gradient 162.3 mmHg; Carboxyhemoglobin 0.3 % THb (0-2.0); Fractional Inspired Oxygen 44 %; HCO3 ABG 34.8 mEq/l (22.0-26.0); Methemoglobin ABG 0.3 %THb (0-1.5); Oxygen Content ABG 16.1 %vol (16.0-22.0); Oxygen Saturation ABG 95.7 % (95.0-100.0); PO2 ABG 82.7 mmHg (80.0-100.0); PO2 FiO2 Ratio Arterial Blood 1.88 %; Reduced Hemoglobin 4.6 %THb (0-5.0)
[2024-08-31 05:14] LABS: Modified Allen's Test Pass; PCO2 ABG 60.3 mmHg (35.0-45.0); Site Drawn RIGHT RADIAL
[2024-08-31 06:18] LABS: Hematocrit 37.5 % (37.0-47.0); Hemoglobin 10.7 g/dL (12.0-15.0); Mean Corpuscular HGB Conc 28.5 g/dl (32-36); Mean Corpuscular Hemoglobin 27.2 pg (26-34); Mean Corpuscular Volume 95.2 fl (80-100); Platelet Count Result 247 k/mm3 (150-375); Red Blood Count 3.94 M/mm3 (4.2-5.4); White Blood Count 11.9 K/mm3 (4.5-10.0)
[2024-08-31] MEDS: LEVOTHYROXINE SODIUM 112 MCG TABLET PO (06:43)
[2024-08-31] MEDS: LEVOTHYROXINE SODIUM 25 MCG TABLET PO (06:43)
[2024-08-31 06:44] LABS: Anion Gap 3 mmol/L (4-12); Blood Urea Nitrogen 44 mg/dL (7-17); Calcium 9.0 mg/dL (8.4-10.2); Carbon Dioxide 37 mmol/L (22-30); Chloride 102 mmol/L (98-107); Estimated CRCL calculation 22 ml/min; Estimated Glomerular Filt Rate 40; Glucose 87 mg/dL (65-110); Potassium 4.5 mmol/L (3.4-5.0); Sodium 142 mmol/L (137-145)
--- NOTE | 2024-08-31 07:08 | ECHO_ITS ---
Patient Info Name: Nikki Bonilla Age: 83 years : 1940 Gender: Female Ht: 60 in Wt: 130 lbs BSA: 1.59 m2 HR: 39 bpm BP: 140 / 60 mmHg Technical Quality: Good Exam Date: 08/31/2024 9:19 AM Patient Status: I Admit Date: 08/28/2024 Exam Type: CA echo doppler color flow Complete two-dimensional, color flow and Doppler transthoracic echocardiogram is performed. Staff Referring Physician: Kameron Bustamante Level Vial Grinder: Melinda Perkins Attending Provider: Zakia Noe Summary 1. Complete two-dimensional, color flow and Doppler transthoracic echocardiogram is performed. 2. The right atrium is normal size. There is a stable echo dense mass in the right atrium suggestive of calcified structure versus stable thrombus. Recommend outpatient advance cardiac imaging such as CT or MRI. 3. Agitated saline study is positive for [id number] shunting suggestive of a large size PFO. 4. The left ventricle is normal in size and systolic function. There is mild concentric left ventricular hypertrophy. The left ventricular ejection fraction is visually estimated to be 60-65%. 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 The basal inferolateral wall is dyskinetic. 5. The right ventricle is dilated with normal systolic function. Left Ventricle The left ventricle is normal in size and systolic function. There is mild concentric left ventricular hypertrophy. The left ventricular ejection fraction is visually estimated to be 60-65%. 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 The basal inferolateral wall is dyskinetic. Right Ventricle The right ventricle is dilated with normal systolic function. Left Atria The left atrium is mildly dilated. Right Atria The right atrium is normal size. There is a stable echo dense mass in the right atrium suggestive of calcified structure versus stable thrombus. Recommend outpatient advance cardiac imaging such as CT or MRI. Atrial Septum Agitated saline study is positive for [id number] shunting suggestive of a large size PFO. Aortic Valve The aortic valve is trileaflet and sclerotic. There is no aortic stenosis. There is no aortic regurgitation. Pulmonic Valve The pulmonic valve is not well visualized. Mitral Valve The mitral valve leaflets are sclerotic. There is no mitral stenosis. There is trace mitral regurgitation. Tricuspid Valve The tricuspid valve is normal. There is trace tricuspid regurgitation. Pericardium/Pleural Pericardium is normal in appearance with no evidence for significant pericardial effusion. Inferior Vena Cava Normal inferior vena cava with >50% collapse upon inspiration consistent with normal right atrial pressure, 3 mmHg. Aorta The aortic root at the level of the sinus of Valsalva measures 2.9 cm in diameter. Left Ventricular Outflow Tract Name Value Normal LVOT 2D LVOT Diameter 1.9 cm LVOT Doppler LVOT Peak Velocity 110 cm/s LVOT Peak Gradient 5 mmHg LVOT Mean Gradient 3 mmHg LVOT VTI 27 cm LVOT VTI/AV VTI Ratio 0.8 LVOT Stroke Volume 75 ml LVOT CO 4.3 l/min LVOT CI 2.7 l/min/m2 Pulmonic Valve Name Value Normal PV Doppler PV Peak Velocity 88 cm/s PV Peak Gradient 3 mmHg Mitral Valve Name Value Normal MV Doppler MV Peak Gradient 5 mmHg MV Mean Gradient 1 mmHg MV Area (Cont Eq VTI) 2.8 cm2 MV Regurgitation Doppler MR Peak Gradient 63 mmHg MV Diastolic Function MV E Peak Velocity 64 cm/s MV A Peak Velocity 97 cm/s MV E/A 0.7 MV Decel Time (PW) 335 ms MV Annular TDI MV E/e' (Septal) 11.6 MV E/e' (Lateral) 9.6 MV E/e' (Average) 10.6 Tricuspid Valve Name Value Normal TV Regurgitation Doppler TR Peak Velocity 362 cm/s TR Peak Gradient 53 mmHg Estimated PAP/RSVP RA Pressure 3 mmHg <=5 PA Systolic Pressure 56 mmHg <36 RV Systolic Pressure 56 mmHg <36 TV Annular TDI TV Lateral Bonnie s' Velocity 9.6 cm/s >=9.5 Aortic Valve Name Value Normal AV Doppler AV Peak Velocity 144 cm/s AV Peak Gradient 8 mmHg AV Mean Gradient 4 mmHg AV VTI 32 cm AV Area (Cont Eq VTI) 2.4 cm2 >=3.0 AV Area (Cont Eq [place]) 2.2 cm2 AV DI ([place]) 0.77 AV Regurgitation 2D LVOT Area 2.8 cm2 Ventricles Name Value Normal LV Dimensions 2D/MM IVS Diastolic Thickness (2D) 1.5 cm 0.6-1.0 LVID Diastole (2D) 3.7 cm 3.8-5.2 LVIW Diastolic Thickness (2D) 1.1 cm 0.6-0.9 LVID Systole (2D) 1.9 cm 2.2-3.5 LVOT Diameter 1.9 cm LV Mass (2D Cubed) 165.12 g 67.00-162.00 LV Mass Index (2D Cubed) 104 g/m2 43-95 Relative Wall Thickness (2D) 0.59 <=0.42 LV Fractional Shortening/Ejection Fraction 2D/MM LV Fractional Shortening (2D) 48 % 27-45 LV EF (2D Teichfarrukhz) 80 % LV Diastolic Volume (4C MOD) 68 ml LV EF (4C MOD) 72 % LV Diastolic Volume (2C MOD) 81 ml LV EF (2C MOD) 70 % LV Diastolic Volume (BP MOD) 74 ml 46-106 LV Diastolic Volume Index (BP MOD) 46 ml/m2 29-61 LV Systolic Volume (BP MOD) 22 ml 14-42 LV Systolic Volume Index (BP MOD) 14 ml/m2 8-24 LV EF (BP MOD) 71 % 54-74 LV Diastolic Length (4C) 7.6 cm LV Systolic Length (4C) 6.6 cm LV Stroke Volume (4C MOD) 49 ml Atria Name Value Normal LA Dimensions LA Volume (4C A-L) 59 ml LA Volume (BP A-L) 67 ml RA Dimensions RA Systolic Major [place] Length (4C) 5.2 cm 2.2-2.8 RA Area (4C) 20.9 cm2 <=18.0 Report Signatures
[2024-08-31] MEDS: IPRATROPIUM 0.5 MG/ALBUTEROL SULFATE 2.5 MG AMPUL.NEB 3 ML INHALATION ×3 (07:54→21:04)
[2024-08-31 08:01] LABS: NT Pro B Type Natriuretic Pept 15900 pg/mL (19.9-100)
--- NOTE | 2024-08-31 08:29 | P.PNPL_ITS ---
Progress Note: A&P Assessment and Plan (1) COPD (chronic obstructive pulmonary disease): Qualifiers: COPD type: COPD with acute exacerbation Qualified Code(s): J44.1 - Chronic obstructive pulmonary disease with (acute) exacerbation Code(s): J44.9 - Chronic obstructive pulmonary disease, unspecified Status: Acute Assessment and Plan: Gold grade 3 group E COPD 67 PY tobacco use, quit 02/2019. 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 06/22/2024: PFTs with FEV1 0.81 L, 49% predicted, ratio 48%, DLCO 15% and when corrected for alveolar volume 29%. Positive bronchodilator response. PFTs 11/03/2019 with a moderate obstructive abnormality with an FEV1 0.93 L, 64% predicted. FEV1: FVC ratio 42%. No bronchodilator response. Air trapping, Severely decreased DLCO and remain moderately decreased when adjusted for alveolar volume. CT scan of chest 04/10/2019 and most recently on 05/01/2024 with severe centrilobular emphysema apices greater than bases. Chronic hypoxemic respiratory failure requiring 6 L at rest and 9 with activity per home O2 assessment 05/03/2024. Require 6 L nasal cannula at night per overnight oximetry 05/02/2024. at home requiring 8.5 L nasal cannula with rest saturations 86-92%, 8.5 L with activity saturations 86%. 05/01/2024 ABG on Airvo 35 L 63% pH 7.44/41/80. echocardiogram 03/14/2024 with LVEF 65-70, grade 1 diastolic dysfunction, moderately enlarged left atrium normal RV size and function. Normal right atrial size. Trace tricuspid valve regurg with PASP 23. Patient presents now with Hypoxemic respiratory failure leading to shortness of breath without cough, phlegm production or change in phlegm volume or color. She was in respiratory distress and placed on BiPAP with blood gas of 7.35/51/139. She had a leukocytosis, clear chest x-ray and a D-dimer that is positive. She was treated with magnesium, DuoNebs, epinephrine, Solu-Medrol, ceftriaxone and azithromycin. After 12 hours, patient denies fever, chills, rigors, cough, phlegm production or chest pain. She is on 12 L nasal cannula saturations 92%. She is in no respiratory distress and has no wheezing. Patient tells me she is breathing normal right now. patient tells me she gained 5 lb in the last week, had swelling 1 day [place] [address]. procalcitonin 0.3. COVID, influenza, RSV RT PCR assay negative. etiology of hypoxemic respiratory failure includes PE, mucus plugging, COPD exacerbation, fluid overload and or pneumonia Plan: I will order CT angiogram of the chest. Will hold Lasix at this time as she will receive a dye load. I will treat for mucus plugging with guaifenesin 1200 mg p.o. b.i.d, DuoNebs q.4 hours. Will treat for possible COPD exacerbation with Solu-Medrol 20 mg IV Q 6. Continue montelukast 10 Q.day. continue ceftriaxone and azithromycin day 1. I will send a respiratory pathogen panel, urine for Legionella, urine for pneumococcal disease and a serum mycoplasma IgM. Later in the day patient had a CT angiogram of the chest with motion artifact but no large central PEs, apical predominant centrilobular emphysema, no focal infiltrates, no nodules, no masses and no pleural effusions. 08/29/24: Overall the patient tells me she is breathing 90% back to her normal. She still has some rest shortness of breath. She denies cough, phlegm or hemoptysis. When I enter the room she was on 10 L nasal cannula saturation 93%. White blood cell count 16.0, creatinine 1.37, BNP has increased from 15,600 on 08/28/2024 to [address] today. Procalcitonin has increased from 0.3 on 08/28/2024 to 0.7 today. Plan: I will change the patient's Solu-Medrol 20 q.6 to prednisone 40 q.day, d ay 2 of steroids. I will decrease the frequency of the DuoNeb from q.4 hours to q.6 hours. Continue guaifenesin 1200 p.o. b.i.d. and montelukast 10 q.day. although there is no focal infiltrate on the CT scan she has a persistent leukocytosis. I will continue ceftriaxone and azithromycin, both day 2. Goal saturation 90-94%. Currently the patient is on 10 L nasal cannula and required 12 L to get out of bed. Lower extremity Dopplers ordered. Respiratory pathogen panel, mycoplasma IgM, urine Legionella and urine pneumococcal antigen pending. Later in the day lower extremity Dopplers negative. 08/30/24: Patient tells me she is breathing 100% back to her normal. She slept okay on 10 L nasal cannula. She denies cough, phlegm or hemoptysis. She got out of bed to the chair yesterday. When I enter the room she was on 12 L with saturations 100%. I decreased her to 8 L and after 5 minutes her saturations decreased to 85%. I increased her back to 10 L and her saturations were 93%. She is afebrile. Yesterday she was -440 mL, cumulative since admission she is positive 965 mL. Her weight today is 59 kilos. Patient an overnight oximetry on 10 L with recording duration of 5 hours and 50 minutes. Average saturation 99%. Low saturation 92%. Time with saturation less than or equal to 88% was 0 minutes. Oxygen desaturation index 0.9. ABG on 10 L nasal cannula 7.39/56/6 9. Plan: Continue prednisone 40 mg p.o. q.day, day 3. Continue DuoNbs q.6 hours, guaifenesin 1200 b.i.d., montelukast 10 a day. Continue ceftriaxone and azithromycin, both day 3. Out of bed to chair. Respiratory pathogen panel pending. 08/31/2024: Patient tells me she is breathing back to her normal, no cough, no phlegm, no hemoptysis. She is afebrile. Patient is on 8 L nasal cannula saturations 97%. White blood cell count 11.9, creatinine 1.27, BNP 34354. Weight is 59 kilos. plan: Continue prednisone 40 mg p.o. q.day, day 4. Continue DuoNbs q.6 hours, guaifenesin 1200 b.i.d., montelukast 10 a day. Discontinue ceftriaxone and continue azithromycin 500 PO, day 4 of 5. Out of bed to chair. Respiratory pathogen panel pending. Discussed with Dr. Deleon, will follow with you. (2) Respiratory failure with hypoxia and hypercapnia: Code(s): J96.91 - Respiratory failure, unspecified with hypoxia; J96.92 - Respiratory failure, unspecified with hypercapnia Status: Acute Assessment and Plan: Chronic hypoxemic respiratory failure from COPD requiring 6 L at rest and 9 with activity per home O2 assessment 05/03/2024. Require 6 L nasal cannula at night per overnight oximetry 05/02/2024. At home requiring 8.5 L nasal cannula with rest saturations 86-92%, 8.5 L with activity saturations 86%. 08/30/2024: ABG on 10 L nasal cannula 7.. Patient has chronic hypercarbic respiratory failure from her COPD. Patient would benefit from noninvasive ventilation to prevent further deterioration and subsequent hospitalizations. I will place the patient on BiPAP no rate, pressures 15/5 and 44% FIO2. I have previously talked to [employer] about 210 L high-flow concentrator so that would be hooked up in series to give her high flow and at that time they thought she could be controlled with 1 10 L oxygen concentrator and a nasal cannula reservoir for Oxymizer. 08/28/24: Patient required BiPAP in the emergency for room for hypoxemic respiratory failure and work of breathing. ABG on BiPAP 12, pressures 14/8 and 100% was 7.35/51/139. Currently the patient is on 12 L nasal cannula saturations 92%. Plan: Goal saturation 90-94%. Patient can wear her BiPAP with the above settings on a p.r.n. basis during the day and night. Once the patient is improved and close to her baseline will repeat ABG after off being off BiPAP for 24 hours to reassess for chronic hypercarbic respiratory failure. 08/29/24: Patient did not require BiPAP last night. Currently she is on 10 L nasal cannula with saturations 93%. She required 12 L to get out of bed and had little stamina when she was sitting up. Plan: Goal saturation 90-94%. Tonight I will perform overnight oximetry on 10 L nasal cannula. I will repeat ABG tomorrow morning at 8:30 a.m. off of BiPAP for 48 hours to assess for chronic hypercarbic respiratory failure. 08/30/2024: ABG on 10 L nasal cannula 7.. Patient an overnight oximetry on 10 L with recording duration of 5 hours and 50 minutes. Average saturation 99%. Low saturation 92%. Time with saturation less than or equal to 88% was 0 minutes. Oxygen desaturation index 0.9. ABG on 10 L nasal cannula 7.39/56/69. Plan: I will place the patient on BiPAP And adjusted the settings to comfort resulting in a rate of 4, pressures 12/4, inspiratory time 1.0, rise of 5 and 44% FiO2. Will check an overnight oximetry and an ABG prior to removal in the morning. 08/31/24: Patient wore the hospital BiPAP with full face mask and said she slept well. Patient had an overnight oximetry on the above settings with recording duration of 6 hours and 38 minutes, average saturation 98%, low saturation 74%, time with saturation less than or equal to 88% was 3 minutes, oxygen desaturation index 0.6. Patient had an ABG prior to removal with a pH of 7.38/60/83. Plan: BiPAP rate of 4 pressures 12/4 provide inadequate ventilation. At the bedside I have placed the patient on BiPAP and she can tolerate pressures 18/4. Will decrease her FiO2 to 36% tonight and perform overnight oximetry and ABG in the morning on these settings. Subjective Date/time seen: 08/31/24 08:29 Interval history: 08/28/2024: This is a new pulmonary consult for COPD exacerbation. 83-year-old with a history of COPD with hypoxic respiratory failure on 8.5 L with activity, rest and sleep, hypertension, diabetes, hyperlipidemia, hypothyroidism, CKD. patient is followed in the pulmonary clinic and last seen on 06/14/2024. she had dyspnea on exertion walking 5-6 steps worse over the last year, makes phlegm 1 time a week. Wearing 9 L at rest with saturations 92-93% and wearing 9 L with activity saturations 77-81. Wears 9 L at night. Her CAT score was 20. She was taking Breo Ellipta 1 puff a day, montelukast 10, DuoNebs q.6 and guaifenesin 600 b.i.d.. She is not smoking. I ordered an alpha 1 anti trypsin genotype, added Spiriva Respimat 2.5 twice a day. Dalires gave her headaches. [place] 600 dollars a month and could not afford. I ordered PFTs, referred her to pulmonary rehabilitation told her to increase to 10 and if she was still less than 88% would get her a 2nd high-flow oxygen concentrator. Family call me back and said she was hypoxemic on 9.5 L and I contacted the DME to give her a 2nd 10 L flow to maintain saturations 89% or greater. That day the DME company called me and said they would like to try an Oxymizer nasal cannula. alpha 1 antitrypsin MZ with a level of 115 which was normal. 07/20/24 1253 Patient states that Pulmonary Rehab is like $40 a week for 8 weeks and she can not afford that. 07/12/2024: PFTs with a severe obstructive abnormality, FEV1 0.80 L, 49% predicted, ratio 48%, positive bronchodilator response. Unable to complete plethysmography. DLCO severely decreased when adjusted for alveolar volume. In comparison to previous PFTs on 11/03/2019 there has been a greater than anticipated decrease in the FVC, FEV1 and diffusing capacity. Over the last 1 and half months the patient tells me that she was doing better. She was more active around the house and the granddaughter lives next her confirms this. The patient was wearing 8.5 L at rest with saturations 86-92%. The patient was wearing 8 9.5 L with activity and saturations were closer to 86 and she uses a scooter to get around the house. Over the last 2 weeks the patient states she gained 5 lb in last week and 1 day with pedal edema. Patient was in her usual state of health on 08/27/24 and said that she ate dinner and was normal. She was sitting on the side of her bed and on 8.5 L her saturations decreased to 81%. She denied fever, chills, rigors, cough, change in phlegm. She called her granddaughter who came over and 2 minutes and put her up to 10 L and her saturations were 79%. She then tried to change her to the tank with the Oxymizer nasal cannula her saturations on 6 L were 74% and on 8 L were 79%. EMS was called. The granddaughter noted that her breathing status was labored and she was breathing with her stomach. When EMS arrived her saturations were low and she was placed on 10 L non-rebreather. Patient was brought to the emergency room in respiratory distress, saturations on 10 L non-rebreather 54% blood pressure 138/78, respiratory rate 29 and Love patient was placed on BiPAP rate of 12, pressures 14/8 and 100% FiO2 and improved. Her white blood cell count was 22.9, her creatinine was 1.40, her BNP was 98887, her chest x-ray showed clear lungs. COVID influenza and RSV RT PCR negative. Procalcitonin 0.3. ABG on BiPAP with settings above 7.35/51/139. Patient was treated with magnesium, hour lung nebulizer, epinephrine, Solu-Medrol 125, ceftriaxone and azithromycin. Patient was admitted to the floor. D-dimer 0.68 positive. Currently patient denies fever, chills, rigors, cough, phlegm production or chest pain. She is on 12 L nasal cannula saturations 92%. She is in no respiratory distress and has no wheezing. Patient tells me she is breathing normal right now. Later in the day patient had a CT angiogram of the chest with motion artifact but no large central PEs, apical predominant centrilobular emphysema, no focal infiltrates, no nodules, no masses and no pleural effusions. 08/29/24: Overall the patient tells me she is breathing 90% back to her normal. She still has some rest shortness of breath. She denies cough, phlegm or hemoptysis. When I enter the room she was on 10 L nasal cannula saturation 93%. White blood cell count 16.0, creatinine 1.37, BNP has increased from 15,600 on 08/28/2024 to 66672 today. Procalcitonin has increased from 0.3 on 08/28/2024 to 0.7 today. Later in the day lower extremity Dopplers negative. 08/30/24: Patient tells me she is breathing 100% back to her normal. She slept okay on 10 L nasal cannula. She denies cough, phlegm or hemoptysis. She got out of bed to the chair yesterday. When I enter the room she was on 12 L with saturations 100%. I decreased her to 8 L and after 5 minutes her saturations d ecreased to 85%. I increased her back to 10 L and her saturations were 93%. She is afebrile. Yesterday she was -440 mL, cumulative since admission she is positive 965 mL. Her weight today is 59 kilos. Patient an overnight oximetry on 10 L with recording duration of 5 hours and 50 minutes. Average saturation 99%. Low saturation 92%. Time with saturation less than or equal to 88% was 0 minutes. Oxygen desaturation index 0.9. Patient tells me she feels well enough to be discharged home today. ABG on 10 L nasal cannula 7.39/56/69. patient with chronic hypercarbic respiratory failure and placed on BiPAP and adjust settings to comfort resulting in a rate of 4, pressures 12/4, inspiratory time 1.2, rise of 5 and 44% FiO2. 08/31/2024: Patient tells me she is breathing back to her normal, no cough, no phlegm, no hemoptysis. She is afebrile. Patient is on 8 L nasal cannula saturations 97%. White blood cell count 11.9, creatinine 1.27, BNP 73956. Patient wore the hospital BiPAP with full face mask and said she slept well. Patient had an overnight oximetry on the above settings with recording duration of 6 hours and 38 minutes, average saturation 98%, low saturation 74%, time with saturation less than or equal to 88% was 3 minutes, oxygen desaturation index 0.6. Patient had an ABG prior to removal with a pH of 7.38/60/83. DATA: 08/28/24: EXAMINATION: CTA chest PE protocol INDICATION: R/O PE COMPARISON: 05/01/2024. FINDINGS: Lung parenchyma and airways: Motion artifact, worst in the lower lobes. Emphysematous change. Lingular atelectasis/scar. Patent airways. Pleura: Unremarkable. Thoracic inlet, axillae and chest wall: Unremarkable. Thoracic aorta: No significant dilation. No dissection. Atherosclerotic calcification. Mediastinum: Dilated central pulmonary arteries as can be seen with pulmonary hypertension. Enlarged bilateral hilar lymph nodes. Heart and pericardium: Enlarged heart. Coronary artery calcifications: Heavy. Upper abdomen: Status post cholecystectomy. Bones: No acute osseous finding. Pulmonary arteries: Study quality: Motion artifact limits evaluation of the bilateral lower lobe segmental and subsegmental pulmonary arteries. No pulmonary emboli detected in the adequately visualized vessels. IMPRESSION: Suboptimal evaluation of the bilateral lower lobe segmental and subsegmental p ulmonary arteries. No CT evidence of acute pulmonary embolus in the adequately visualized vessels. Bilateral hilar lymphadenopathy 07/12/2024: Alpha 1 anti trypsin level 115, normal 83-199. No intervention at this time. 07/12/2024: This is a pulmonary function test with pre and post-bronchodilator spirometry, and diffusing capacity. The test was performed and results interpreted in accordance with the 2019 and 2005 ATS/ERS Task Force guidelines respectively using the Global Lung Function Initiative-2012 reference equations. Patient demonstrated good effort and cooperation. Reproducibility criteria were met. Of note, the patient was unable to complete lung volume testing. Findings: Spirometry: There is decreased maximal expiratory flows at all lung volumes with a concave expiratory flow tracing. The contour the inspiratory flow tracing is truncated. The pre bronchodilator FVC is 1.68 L, 81% predicted. The pre bronchodilator FEV1 is 0.80 L, 49% predicted. The pre bronchodilator FEV1: FVC ratio is 48%. The post bronchodilator FVC is 2.09 L, representing a 24% increase. The post bronchodilator FEV1 is 0.86 L, representing an 8% increase. The post bronchodilator FEV1: FVC ratio is 41%. Diffusing capacity: The diffusing capacity unadjusted for hemoglobin and carboxyhemoglobin is 2.2, 15% predicted. The diffusing capacity adjusted for alveolar volume is 0.95, 29% predicted. In comparison to previous pulmonary function testing on 11/03/2019 the post bronchodilator FVC is decreased from 2.39 L to 2.09 L. The post bronchodilator FEV1 is decreased from 1.01 L to 0.86 L. the diffusing capacity unadjusted for hemoglobin and carboxyhemoglobin is decreased from 4.8 to 2.2. The diffusing c apacity adjusted for alveolar volume is decreased from 1.95 to 0.95. Impression: There is a severe obstructive abnormality. There is significant improvement after inhaling a single dose of albuterol. The diffusing capacity unadjusted for hemoglobin and carboxyhemoglobin is severely decreased and remains severely decreased when adjusted for alveolar volume. In comparison to previous pulmonary function testing on 11/03/2019 there has been a greater than anticipated time dependent increase in the FVC, FEV1 and diffusing capacity. These results are consistent with worsening COPD now grade 3 group B COPD. 06/14/2024: Alpha 1 anti trypsin MZ. I will send an alpha 1 anti trypsin level. 05/03/2024: Home O2 assessment:? Rest nasal cannula 6 L saturation 90%.? Exercise nasal cannula 6 L saturation 79%.? Exercise nasal cannula 7 L saturation 84%.? Exercise nasal cannula 8 L saturation 87%.? Exercise nasal cannula 9 L saturation 90%. 05/02/2024: Overnight oximetry on 6 L nasal cannula.? Recording duration 6 hours and 3 minutes.? Average saturation 97%.? Low saturation 88%.? Time with saturation less than or equal to 88% was 4 minutes.? Oxygen desaturation index 2. 05/01/2024:? ABG on Airvo 35 L, 63% FiO2 pH 7.44/41/80. 05/01/24: CTA chest PE protocol Ordering provider: Antony Vieyra, History: 83 years Female with . SOB . Comparison: March 12, 2024 Technique: CT angiogram chest was performed following timed intravenous injection of contrast. Thin slice axial images and reformatted coronal images were obtained. Three dimensional reformatted images of the chest were also obtained using a [employer] workstation. . Automated exposure control and iterative reconstruction technique were employed. The dose-length product was 501.20 mGy- cm. 100 mL Omnipaque 350 was given IV. Findings: PULMONARY ARTERIES: No pulmonary embolus. VISUALIZED THORACIC INLET: Normal. MEDIASTINUM: Aorta/coronary arteries: Mild atheromatous disease. Heart/other: The heart is not enlarged. Lymph nodes: No mediastinal or hilar adenopathy. Precarinal lymph node is seen measuring 1.3 cm. LUNGS: Minimal atelectasis versus pneumonia in the lingula is noted. Underlying emphysematous changes. No pulmonary nodules or masses. No infiltrates or effusions. No pneumothorax. VISUALIZED UPPER ABDOMEN: Status post cholecystectomy. Markedly thickened wall of the stomach. Further evaluation advised. Otherwise, the visualized upper abdomen is normal. MUSCULOSKELETAL: Soft tissues: The superficial soft tissues are normal. Bones: Age appropriate degenerative changes of the spine. IMPRESSION: 1. No pulmonary embolism. 2. Atelectatic changes in the area of the lingula. Pneumonia is less likely. 3. Markedly thickened wall of the stomach. Further evaluation advised. 03/14/2024: Echo Summary 1. Complete two-dimensional, color flow and Doppler transthoracic echocardiogram is performed. 2. Left ventricular chamber dimension is normal. 3. 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 4. There is mild concentric increased left ventricular wall thickness. 5. Left ventricular systolic function is normal, estimated at 65-70%. 6. The left ventricular diastolic function is grade I diastolic dysfunction. 7. E/e' 11 is mildly elevated. 8. Left atrial chamber dimension is moderately enlarged. 9. There is mild aortic valve sclerosis. 10. There is trace tricuspid valve regurgitation. 11. No pulmonary hypertension, estimated pulmonary arterial systolic pressure is 23 mmHg. 12. There is trivial pericardial effusion. Right Ventricle Right ventricular systolic function is normal and with normal TAPSE 2.7 cm. Right ventricular chamber dimension is normal. Left Atria Left atrial chamber dimension is moderately enlarged. Right Atria Right atrial chamber dimension is normal. TTE @ [facility] 04/04/23 - EF 55-60%, LV diastolic function abnormal, RV volume and pressure overload. Normal RV systolic function. Stress Test 11/09/22 - Myocardial perfusion imaging demonstrating a fixed moderate size anteroseptal perfusion defect suggestive of breast attenuation artifact. No evidence of reversible ischemia. Negative lexiscan stress test for ischemic ST changes by ECG criteria. Stable hemodynamics throughout the test. Echo 06/02/23 - EF 55-60%, grade I diastolic dysfunction, no pulmHTN. Overnight ox on 3L 10/23/22 - 8min spent below 88% saturation (seems likely artifact). PFT 11/03/19 - Moderate airflow obstruction with hyperinflation, air trapping and severely reduced diffusion capacity; no acute bronchodilator response. This correlates with COPD. FEV1/FVC 42%, FEV1 0.93L (64%), TLC 129%, RV/TLC ration 57%, uncorrected DLCO 30%, DLCO corrected for alveolar volume 57%. Echo 05/2021 - EF 60-65%, diastolic dysfunction, moderate pulmHTN. Chest CT 04/12/20 - Right perihilar 9 mm nodule, likely benign given two-year stability. Moderate emphysema. This was PET-CT negative.? Review of Systems Constitutional: Constitutional: Reports no additional constitutional complaints Eyes: Eyes: Reports no additional eye complaints ENT: Reports system reviewed and no additional complaints, except as documented Cardiovascular: Cardiovascular: Reports no additional cardiovascular complaints Respiratory: Respiratory: Reports no additional respiratory complaints Gastrointestinal: Gastrointestinal: Reports no additional gastrointestinal complaints Musculoskeletal: Musculoskeletal: Reports no additional musculoskeletal complaints Neurologic: Reports system reviewed and no additional complaints, except as documented Psychiatric: Psychiatric: Reports no additional psychiatric complaints Endocrine: Endocrine: Reports no additional endocrine complaints Hematologic/Lymphatic: Hematologic/Lymphatic: Reports no additional hematologic/lymphatic complaints Allergic/Immunologic: Allergic/Immunologic: Reports no additional allergic/immunologic complaints Exam Const: General: cooperative, healthy appearing and comfortable [place] ation/consciousness: oriented to person, oriented to place and oriented to time HENMT: Head: normal to inspection Ears: hearing grossly normal bilaterally Eyes: General: appearance normal, both eyes and all related structures Neck: Neck: normal visual inspection Chest: Chest palpation & inspection: normal inspection of the chest Resp: Effort & Inspection: normal respiratory effort and able to speak in complete sentences Auscultation: no crackles, no rales, no rhonchi, no wheezes and diminished lung sounds Cardio: Jugular venous distension: no JVD GI: Inspection: normal to inspection Skin: General skin exam: normal color Neuro: General: oriented to person, oriented to place and oriented to time Extrem: General: normal to inspection Psych: Appearance: grossly normal Objective Data Vital Signs Vital Signs: Vital Signs - 24 hr 08/30/24 08:58 08/30/24 11:30 08/30/24 12:00 Temperature 36.6 C Pulse Rate 58 L 66 66 Respiratory Rate 20 Blood Pressure 138/57 L Pulse Oximetry 95 Oxygen Delivery Oxygen Flow Rate Fraction of Inspired Oxygen 08/30/24 13:00 08/30/24 13:00 08/30/24 13:10 Temperature Pulse Rate 57 L 57 L 55 L Respiratory Rate 25 H 25 H 20 Blood Pressure Pulse Oximetry 97 Oxygen Delivery Oxygen Flow Rate Fraction of Inspired Oxygen 08/30/24 16:00 08/30/24 16:00 08/30/24 20:00 Temperature 36.5 C Pulse Rate 70 56 L 62 Respiratory Rate 24 H 18 Blood Pressure 152/58 H Pulse Oximetry 96 94 Oxygen Delivery High Flow Nasal Cannula Oxygen Flow Rate 8 Fraction of Inspired Oxygen 08/30/24 20:00 08/30/24 20:43 08/30/24 20:47 Temperature 36.4 C Pulse Rate 59 L 60 63 Respiratory Rate 22 H Blood Pressure 168/75 H Pulse Oximetry 100 Oxygen Delivery Oxygen Flow Rate Fraction of Inspired Oxygen 08/30/24 20:57 08/30/24 21:02 08/30/24 21:13 Temperature Pulse Rate 62 57 L 62 Respiratory Rate 18 18 18 Blood Pressure Pulse Oximetry 94 Oxygen Delivery High Flow Nasal Cannula Oxygen Flow Rate 8 Fraction of Inspired Oxygen 08/30/24 22:10 08/30/24 22:10 08/30/24 23:47 Temperature 36.5 C Pulse Rate 56 L Respiratory Rate 19 22 H Blood Pressure 146/60 H Pulse Oximetry 94 94 98 Oxygen Delivery BiPAP BiPAP Oxygen Flow Rate Fraction of Inspired Oxygen 44 08/31/24 00:00 08/31/24 04:00 08/31/24 05:00 Temperature Pulse Rate 41 L 39 L Respiratory Rate Blood Pressure Pulse Oximetry 98 Oxygen Delivery High Flow Nasal Cannula Oxygen Flow Rate 8 Fraction of Inspired Oxygen 08/31/24 07:59 Temperature 36.5 C Pulse Rate 57 L Respiratory Rate 22 H Blood Pressure 170/62 H Pulse Oximetry 97 Oxygen Delivery Oxygen Flow Rate Fraction of Inspired Oxygen Intake/Output Intake/Output: Intake & Output 08/28/24 08/29/24 08/30/24 08/31/24 23:59 23:59 23:59 23:59 Intake Total 1710 1460 1380 520 Output Total 525 1800 1300 500 Balance 1185 -340 80 20 Meds/Results Medications: Active Medications Generic Name Dose Route Start Last Admin Trade Name Freq PRN Reason Stop Dose Admin Albuterol 2.5 mg 08/28/24 09:33 Albuterol Sulfate Neb 2.5 Mg/3 Ml Inh INHALATION Q4HRT PRN Shortness Of Breath Albuterol/Ipratropium 3 ml 08/29/24 14:00 08/31/24 07:54 Ipratropium 0.5 Mg/Albuterol Sulfate 2.5 Mg Ampul.Neb 3 Ml INHALATION 3 ml Q6HRT COCO Administration Alprazolam 0.5 mg 08/28/24 05:23 Alprazolam (*Crx) 0.5 Mg Tablet PO QID PRN Anxiety Aspirin 81 mg 08/28/24 09:00 08/30/24 08:59 Aspirin 81 Mg Enteric Tablet PO 81 mg DAILY COCO Administration Azithromycin 500 mg 08/30/24 21:00 08/30/24 20:46 Azithromycin 250 Mg Tablet PO 09/01/24 21:01 500 mg QHS C[facility] Administration Dextrose 12.5 gm 08/28/24 12:12 08/31/24 01:43 Dextrose 50% 25 Gm/50 Ml Syringe IV PUSH 12.5 gm PRN PRN Administration Hypoglycemia Protocol Escitalopram Oxalate 20 mg 08/28/24 09:00 08/30/24 08:58 Escitalopram Oxalate 10 Mg Tablet PO 20 mg DAILY [facility] Administration Furosemide 40 mg 08/28/24 09:00 08/30/24 16:50 Furosemide 40 Mg Tablet PO 40 mg BID [facility] Administration Glucagon 1 mg 08/28/24 12:12 Glucagon For Inj 1 Mg Vial IM PRN PRN Hypoglycemia Protocol Glucose 15 gm 08/28/24 12:12 Glucose Oral Gel 15 Gm Of Glucse In 37.5 Gm Tube PO PRN PRN Hypoglycemia Protocol Guaifenesin 1,200 mg 08/28/24 21:00 08/30/24 20:45 Guaifenesin 12 Hr 600 Mg Tabcr PO 1,200 mg Q12HR [facility] Administration Dextrose 1,000 mls @ 100 mls/hr 08/28/24 12:12 Dextrose 5% 1,000 Ml IVPB PRN PRN Hypoglycemia Protocol Insulin Aspart 4 - 8 units 08/29/24 08:00 08/30/24 16:51 Insulin Aspart (*Bkc) 100 Units/Ml SUB-Q 4 units TIDWM [facility] Administration Protocol Insulin Aspart 2 - 4 units 08/28/24 21:00 08/30/24 20:43 Insulin Aspart (*Bkc) 100 Units/Ml SUB-Q Not Given HS [facility] Protocol Insulin Aspart 6 units 08/30/24 08:00 08/30/24 16:51 Insulin Aspart (*Bkc) 100 Units/Ml 0.1 units/kg (6 units) 6 units SUB-Q Administration TID[facility] Insulin Glargine 20 units 08/29/24 21:00 08/30/24 20:48 Insulin Glargine (*Bkc) 100 Units/Ml SUB-Q 20 units HS [facility]O Administration Levothyroxine Sodium 112 mcg 08/28/24 06:30 08/31/24 06:43 Levothyroxine Sodium 112 Mcg Tablet PO 112 mcg DAILY@0630 [facility] Administration Levothyroxine Sodium 25 mcg 08/28/24 06:30 08/31/24 06:43 Levothyroxine Sodium 25 Mcg Tablet PO 25 mcg DAILY@0630 COCO Administration Losartan Potassium 100 mg 08/28/24 09:00 08/30/24 08:57 Losartan Potassium 50 Mg Tablet PO 100 mg DAILY COCO Administration Lovastatin 20 mg 08/28/24 21:00 08/30/24 20:47 Lovastatin 20 Mg Tablet PO 20 mg HS COCO Administration Metoprolol Tartrate 25 mg 08/28/24 09:00 08/30/24 20:47 Metoprolol Tartrate 25 Mg Tablet PO 25 mg Q12HR [facility]O Administration Montelukast Sodium 10 mg 08/28/24 18:00 08/29/24 17:40 Montelukast Sodium 10 Mg Tablet PO 10 mg QPM COCO Administration Home Med (Ramelteon 8 mg 08/28/24 22:04 08/30/24 20:49 8 Mg Tablet) PO 09/27/24 22:03 8 mg HS PRN Administration Sleep Pantoprazole Sodium 40 mg 08/28/24 09:00 08/30/24 16:50 Pantoprazole 40 Mg Tablet PO 40 mg BID COCO Administration Perflutren Lipid Microsphere 0 ml 08/31/24 07:08 Perflutren Lipid Microspheres 1.5 Ml Vial Diluted To 10 Ml Total Volume IV PUSH 09/03/24 07:08 ONCE PRN adequate visualization Protocol Prednisone 40 mg 08/29/24 10:55 08/30/24 08:58 Prednisone 20 Mg Tablet PO 40 mg DAILY@0800 COCO Administration Radiology Results: ITS Impressions Chest X-Ray 08/28/24 05:53 Impression: Clear lungs. Possible COPD. Chest CTA 08/28/24 17:14 IMPRESSION: Suboptimal evaluation of the bilateral lower lobe segmental and subsegmental pulmonary arteries. No CT evidence of acute pulmonary embolus in the adequately visualized vessels. Bilateral hilar lymphadenopathy Venous Doppler Study 08/29/24 18:40 IMPRESSION: 1. No deep venous thrombosis in either lower limb. Labs Labs: Laboratory Results - last 24 hr 08/29/24 08/30/24 08/30/24 05:05 08:02 08:52 WBC 14.5 H RBC 3.84 L Hgb 10.4 L Hct 35.7 L MCV 93.0 MCH 27.1 MCHC 29.1 L RDW 15.9 H Plt Count 266 MPV 10.9 H Puncture Site ABG pH ABG pCO2 ABG pO2 ABG PO2/FiO2 Ratio ABG HCO3 ABG O2 Saturation ABG O2 Content ABG Base Excess A-a Gradient Oxyhemoglobin Carboxyhemoglobin Methemoglobin Reduced Hemoglobin Total Hemoglobin O2 Delivery Device O2 Liters/Min FiO2 Expiratory Pressure Inspiratory Pressure Sodium 139 Potassium 4.0 Chloride 100 Carbon Dioxide 34 H Anion Gap 5 BUN 52 H Creatinine 1.32 H Estim Creat Clear Calc 21 Estimated GFR 39 L Glucose 212 H POC Capillary Glucose 119 H Calcium 8.9 NT-Pro-B Natriuret Pep M.pneumoniae IgM Titer <770 08/30/24 08/30/24 08/30/24 11:28 15:53 20:42 WBC RBC Hgb Hct MCV MCH MCHC RDW Plt Count MPV Puncture Site ABG pH ABG pCO2 ABG pO2 ABG PO2/FiO2 Ratio ABG HCO3 ABG O2 Saturation ABG O2 Content ABG Base Excess A-a Gradient Oxyhemoglobin Carboxyhemoglobin Methemoglobin Reduced Hemoglobin Total Hemoglobin O2 Delivery Device O2 Liters/Min FiO2 Expiratory Pressure Inspiratory Pressure Sodium Potassium Chloride Carbon Dioxide Anion Gap BUN Creatinine Estim Creat Clear Calc Estimated GFR Glucose POC Capillary Glucose 163 H 204 H 115 H Calcium NT-Pro-B Natriuret Pep M.pneumoniae IgM Titer 08/31/24 08/31/24 08/31/24 01:08 01:32 02:04 WBC RBC Hgb Hct MCV MCH MCHC RDW Plt Count MPV Puncture Site ABG pH ABG pCO2 ABG pO2 ABG PO2/FiO2 Ratio ABG HCO3 ABG O2 Saturation ABG O2 Content ABG Base Excess A-a Gradient Oxyhemoglobin Carboxyhemoglobin Methemoglobin Reduced Hemoglobin Total Hemoglobin O2 Delivery Device O2 Liters/Min FiO2 Expiratory Pressure Inspiratory Pressure Sodium Potassium Chloride Carbon Dioxide Anion Gap BUN Creatinine Estim Creat Clear Calc Estimated GFR Glucose POC Capillary Glucose 54 L* 60 L 198 H Calcium NT-Pro-B Natriuret Pep M.pneumoniae IgM Titer 08/31/24 08/31/24 08/31/24 04:49 06:12 07:54 WBC 11.9 H RBC 3.94 L Hgb 10.7 L Hct 37.5 MCV 95.2 MCH 27.2 MCHC 28.5 L RDW 15.6 H Plt Count 247 MPV 10.6 H Puncture Site Right radial ABG pH 7.379 ABG pCO2 60.3 H* ABG pO2 82.7 ABG PO2/FiO2 Ratio 1.88 ABG HCO3 34.8 H ABG O2 Saturation 95.7 ABG O2 Content 16.1 ABG Base Excess 7.9 A-a Gradient 162.3 Oxyhemoglobin 94.8 Carboxyhemoglobin 0.3 Methemoglobin 0.3 Reduced Hemoglobin 4.6 Total Hemoglobin 12.0 O2 Delivery Device Bipap O2 Liters/Min Not Reportable FiO2 44 Expiratory Pressure 4 Inspiratory Pressure 12 Sodium 142 Potassium 4.5 Chloride 102 Carbon Dioxide 37 H Anion Gap 3 L BUN 44 H Creatinine 1.27 H Estim Creat Clear Calc 22 Estimated GFR 40 L Glucose 87 POC Capillary Glucose 52 L* Calcium 9.0 NT-Pro-B Natriuret Pep 48859 H M.pneumoniae IgM Titer 08/31/24 08:18 WBC RBC Hgb Hct MCV MCH MCHC RDW Plt Count MPV Puncture Site ABG pH ABG pCO2 ABG pO2 ABG PO2/FiO2 Ratio ABG HCO3 ABG O2 Saturation ABG O2 Content ABG Base Excess A-a Gradient Oxyhemoglobin Carboxyhemoglobin Methemoglobin Reduced Hemoglobin Total Hemoglobin O2 Delivery Device O2 Liters/Min FiO2 Expiratory Pressure Inspiratory Pressure Sodium Potassium Chloride Carbon Dioxide Anion Gap BUN Creatinine Estim Creat Clear Calc Estimated GFR Glucose POC Capillary Glucose 70 Calcium NT-Pro-B Natriuret Pep M.pneumoniae IgM Titer
[2024-08-31 08:35] LABS: Free T4 Free Thyroxine 1.42 ng/dL (0.78-2.19)
[2024-08-31 09:01] LABS: Thyroid Stimulating Hormone 1.830 uIU/mL (0.465-4.680)
[2024-08-31] MEDS: ASPIRIN 81 MG ENTERIC TABLET PO (09:01)
[2024-08-31] MEDS: PANTOPRAZOLE 40 MG TABLET PO ×2 (09:01→17:34)
[2024-08-31] MEDS: guaiFENesin 12 HR 600 MG TABCR 1200 MG PO ×2 (09:01→20:23)
[2024-08-31] MEDS: METOPROLOL TARTRATE 25 MG TABLET PO ×2 (09:01→20:23)
[2024-08-31] MEDS: LOSARTAN POTASSIUM 50 MG TABLET 100 MG PO (09:01)
[2024-08-31] MEDS: ESCITALOPRAM OXALATE 10 MG TABLET 20 MG PO (09:02)
[2024-08-31] MEDS: FUROSEMIDE 40 MG TABLET PO ×2 (09:02→17:34)
[2024-08-31] MEDS: INSULIN ASPART (*BKC) 100 UNITS/ML 6 UNITS SUB-Q ×2 (12:39→17:34)
--- NOTE | 2024-08-31 14:29 | PM.IMPN ---
Progress Note: A&P Assessment and Plan (1) Diastolic congestive heart failure: Code(s): I50.30 - Unspecified diastolic (congestive) heart failure Status: Acute (2) Insulin dependent diabetes mellitus: Status: Acute (3) COPD exacerbation: Code(s): J44.1 - Chronic obstructive pulmonary disease with (acute) exacerbation Status: Acute (4) Acute and chronic respiratory failure with hypoxia: Code(s): J96.21 - Acute and chronic respiratory failure with hypoxia Status: Acute Plan 83-year-old female with a past medical history formal tobacco abuse, hypothyroidism, hyperlipidemia, insulin dependent diabetes mellitus, hypertension, CAD, CKD, COPD, chronic respiratory failure with continuous home O2 use. She presents a [facility] ER on 08/28/2024 as she was found to be hypoxic and tachypneic with shortness of breath and wheezing. She lives with her family member. Patient was placed on 10 L non-rebreather, given 2 g IV magnesium, epinephrine, 125 mg IV Solu-Medrol, 3 DuoNebs treatments and brought to the ER. At that time she was saturating 54% on non-rebreather. She was placed on BiPAP and had symptomatic relief. On the BiPAP with 100% FiO2 her pH was 7.347, pCO2 50.9, PO2 139, bicarb 27.3. She was also given a continuous DuoNeb treatment, azithromycin and ceftriaxone. Her WBC count 22.9, BUN 43, serum creatinine 1.40, quad viral screen negative, BNP 83340, troponin 0.031. Chest x-ray did not demonstrate any acute findings. The patient reiterated her DNR status. She otherwise denied fever, cough worse than her usual, sputum production, chest pain. Acute on chronic hypoxic respiratory failure with hypoxemia and hypercapnia COPD exacerbation Community-acquired pneumonia * BAG abnormal. pulmonary team on board and adjusting BIPAP. plan to keep patient overnight and evaluate her needs for BIPAP.. on DuoNebs q.4 hours, methylprednisolone 20 mg IV Q 6 Quad viral screen negative. X-ray showed increased interstitial patchy infiltrate bilateral lower lobes. Patient has leukocytosis, suspecting acute bacterial bronchitis and pneumonia will continue prednisone. Continue Iv Abx Rocephin and azithromycin. plan to do overnight Oximetry. pulm team on board Condition improving, changed to oral prednisone today 08/29 Diastolic heart failure compensated Possible decompensated due to COPD exacerbation, Echocardiogram showed EF 65-70%, grade 1 diastolic dysfunction Continue to monitor closely. Continue home medications metoprolol, Lasix 40 mg p.o. b.i.d. -daily weights, strict intake/output, heart healthy diet CKD stage IIIB Elevated BUN creatinine ratio Slightly above baseline CAD: Denies chest pain Resume [employer] aspirin, lovastatin GERD Continue Protonix 40 mg daily p.o. Hypertension: Resume [employer] metoprolol, losartan, Lasix Insulin-dependent diabetes mellitus: Resume [employer] Lantus 10 units q.h.s., sliding scale with Accu-Cheks a.c. HS DNR. Patient lives with family member. . Subjective Date/time seen: 08/31/24 14:29 Interval history: per HPI 83-year-old female with a past medical history formal tobacco abuse, hypothyroidism, hyperlipidemia, insulin dependent diabetes mellitus, hypertension, CAD, CKD, COPD, chronic respiratory failure with continuous home O2 use. She presents a [facility] ER on 08/28/2024 as she was found to be hypoxic and tachypneic with shortness of breath and wheezing. She lives with her family member. Patient was placed on 10 L non-rebreather, given 2 g IV magnesium, epinephrine, 125 mg IV Solu-Medrol, 3 DuoNebs treatments and brought to the ER. At that time she was saturating 54% on non-rebreather. She was placed on BiPAP and had symptomatic relief. On the BiPAP with 100% FiO2 her pH was 7.347, pCO2 50.9, PO2 139, bicarb 27.3. She was also given a continuous DuoNeb treatment, azithromycin and ceftriaxone. Her WBC count 22.9, BUN 43, serum creatinine 1.40, quad viral screen negative, BNP 17511, troponin 0.031. Chest x-ray did not demonstrate any acute findings. The patient reiterated her DNR status. She otherwise denied fever, cough worse than her usual, sputum production, chest pain. 08/30/24 patient was seen and examined at bedside. Patient off BiPAP now, patient is on high-flow oxygen via nasal cannular on 10 L o2 Patient feels better Denies chest pain abdomen pain nausea vomiting diarrhea pulmonary team on board. will continue prednisone. Continue Iv Abx Rocephin and azithromycin. plan to do overnight Oximetry. 08/31/24 Patient was seen and examined at bedside. she is feeling better. her breathing improving and is back to baseline 8 lit. BAG abnormal. pulmonary team on board and adjusting BIPAP. plan to keep patient overnight and evaluate her needs for BIPAP. Exam Narrative: GENERAL: Pleasant, in no acute distress. Well-nourished. - EYES: EOMI. Anicteric. - HENT: Moist mucous membranes. - LUNGS: Coarse breath sound bilaterally - CARDIOVASCULAR: Regular rate and rhythm. No murmur. No JVD. - ABDOMEN: Soft, non-tender and non-distended. No palpable masses. - EXTREMITIES: No edema. Peripheral pulses 2+. Non-tender. - NEUROLOGIC: No focal neurological deficits. CN II-XII grossly intact. - PSYCHIATRIC: Awake, Alert and oriented x 3. Appropriate mood and affect. - SKIN: No rashes or lesions. Warm. - LYMPH: No cervical lymphadenopathy. Objective Data Vital Signs Vital Signs: Vital Signs - 24 hr 08/30/24 16:00 08/30/24 16:00 08/30/24 20:00 Temperature 97.7 F Pulse Rate 70 56 L 62 Respiratory Rate 24 H 18 Blood Pressure 152/58 H Pulse Oximetry 96 94 Oxygen Delivery High Flow Nasal Cannula Oxygen Flow Rate 8 Fraction of Inspired Oxygen 08/30/24 20:00 08/30/24 20:43 08/30/24 20:47 Temperature 97.6 F Pulse Rate 59 L 60 63 Respiratory Rate 22 H Blood Pressure 168/75 H Pulse Oximetry 100 Oxygen Delivery Oxygen Flow Rate Fraction of Inspired Oxygen 08/30/24 20:57 08/30/24 21:02 08/30/24 21:13 Temperature Pulse Rate 62 57 L 62 Respiratory Rate 18 18 18 Blood Pressure Pulse Oximetry 94 Oxygen Delivery High Flow Nasal Cannula Oxygen Flow Rate 8 Fraction of Inspired Oxygen 08/30/24 22:10 08/30/24 22:10 08/30/24 23:47 Temperature 97.7 F Pulse Rate 56 L Respiratory Rate 19 22 H Blood Pressure 146/60 H Pulse Oximetry 94 94 98 Oxygen Delivery BiPAP BiPAP Oxygen Flow Rate Fraction of Inspired Oxygen 44 08/31/24 00:00 08/31/24 04:00 08/31/24 05:00 Temperature Pulse Rate 41 L 39 L Respiratory Rate Blood Pressure Pulse Oximetry 98 Oxygen Delivery High Flow Nasal Cannula Oxygen Flow Rate 8 Fraction of Inspired Oxygen 08/31/24 07:50 08/31/24 07:50 08/31/24 07:59 Temperature 97.7 F Pulse Rate 63 57 L Respiratory Rate 18 22 H Blood Pressure 170/62 H Pulse Oximetry 96 97 Oxygen Delivery High Flow Nasal Cannula Oxygen Flow Rate 8 Fraction of Inspired Oxygen 44 08/31/24 08:00 08/31/24 08:00 08/31/24 08:00 Temperature Pulse Rate 61 48 L 54 L Respiratory Rate 18 18 Blood Pressure Pulse Oximetry 93 Oxygen Delivery High Flow Nasal Cannula Oxygen Flow Rate 8 Fraction of Inspired Oxygen 08/31/24 09:01 08/31/24 13:11 08/31/24 13:20 Temperature Pulse Rate 63 56 L 60 Respiratory Rate 18 18 Blood Pressure Pulse Oximetry Oxygen Delivery Oxygen Flow Rate Fraction of Inspired Oxygen 08/31/24 14:07 Temperature Pulse Rate Respiratory Rate Blood Pressure Pulse Oximetry Oxygen Delivery High Flow Therapy with Na Oxygen Flow Rate 8 Fraction of Inspired Oxygen Intake/Output Intake/Output: Intake & Output 08/28/24 08/29/24 08/30/24 08/31/24 23:59 23:59 23:59 23:59 Intake Total 1710 1460 1380 640 Output Total 525 1800 1300 500 Balance 1185 -340 80 140 Meds/Results Medications: Active Medications Generic Name Dose Route Start Last Admin Trade Name Freq PRN Reason Stop Dose Admin Albuterol 2.5 mg 08/28/24 09:33 Albuterol Sulfate Neb 2.5 Mg/3 Ml Inh INHALATION Q4HRT PRN Shortness Of Breath Albuterol/Ipratropium 3 ml 08/29/24 14:00 08/31/24 13:11 Ipratropium 0.5 Mg/Albuterol Sulfate 2.5 Mg Ampul.Neb 3 Ml INHALATION 3 ml Q6HRT COCO Administration Alprazolam 0.5 mg 08/28/24 05:23 Alprazolam (*Crx) 0.5 Mg Tablet PO QID PRN Anxiety Aspirin 81 mg 08/28/24 09:00 08/31/24 09:01 Aspirin 81 Mg Enteric Tablet PO 81 mg DAILY COCO Administration Azithromycin 500 mg 08/30/24 21:00 08/30/24 20:46 Azithromycin 250 Mg Tablet PO 09/01/24 21:01 500 mg QHS COCO Administration Dextrose 12.5 gm 08/28/24 12:12 08/31/24 01:43 Dextrose 50% 25 Gm/50 Ml Syringe IV PUSH 12.5 gm PRN PRN Administration Hypoglycemia Protocol Escitalopram Oxalate 20 mg 08/28/24 09:00 08/31/24 09:02 Escitalopram Oxalate 10 Mg Tablet PO 20 mg DAILY COCO Administration Furosemide 40 mg 08/28/24 09:00 08/31/24 09:02 Furosemide 40 Mg Tablet PO 40 mg BID COCO Administration Glucagon 1 mg 08/28/24 12:12 Glucagon For Inj 1 Mg Vial IM PRN PRN Hypoglycemia Protocol Glucose 15 gm 08/28/24 12:12 Glucose Oral Gel 15 Gm Of Glucse In 37.5 Gm Tube PO PRN PRN Hypoglycemia Protocol Guaifenesin 1,200 mg 08/28/24 21:00 08/31/24 09:01 Guaifenesin 12 Hr 600 Mg Tabcr PO 1,200 mg Q12HR COCO Administration Dextrose 1,000 mls @ 100 mls/hr 08/28/24 12:12 Dextrose 5% 1,000 Ml IVPB PRN PRN Hypoglycemia Protocol Insulin Aspart 4 - 8 units 08/29/24 08:00 08/31/24 12:38 Insulin Aspart (*Bkc) 100 Units/Ml SUB-Q Not Given [facility] Protocol Insulin Aspart 2 - 4 units 08/28/24 21:00 08/30/24 20:43 Insulin Aspart (*Bkc) 100 Units/Ml SUB-Q Not Given [facility] Protocol Insulin Aspart 6 units 08/30/24 08:00 08/31/24 12:39 Insulin Aspart (*Bkc) 100 Units/Ml 0.1 units/kg (6 units) 6 units SUB-Q Administration [facility] Insulin Glargine 20 units 08/29/24 21:00 08/30/24 20:48 Insulin Glargine (*Bkc) 100 Units/Ml SUB-Q 20 units HS COCO Administration Levothyroxine Sodium 112 mcg 08/28/24 06:30 08/31/24 06:43 Levothyroxine Sodium 112 Mcg Tablet PO 112 mcg DAILY@0630 COCO Administration Levothyroxine Sodium 25 mcg 08/28/24 06:30 08/31/24 06:43 Levothyroxine Sodium 25 Mcg Tablet PO 25 mcg DAILY@0630 COCO Administration Losartan Potassium 100 mg 08/28/24 09:00 08/31/24 09:01 Losartan Potassium 50 Mg Tablet PO 100 mg DAILY COCO Administration Lovastatin 20 mg 08/28/24 21:00 08/30/24 20:47 Lovastatin 20 Mg Tablet PO 20 mg HS COCO Administration Metoprolol Tartrate 25 mg 08/28/24 09:00 08/31/24 09:01 Metoprolol Tartrate 25 Mg Tablet PO 25 mg Q12HR COCO Administration Montelukast Sodium 10 mg 08/28/24 18:00 08/29/24 17:40 Montelukast Sodium 10 Mg Tablet PO 10 mg QPM COCO Administration Home Med (Ramelteon 8 mg 08/28/24 22:04 08/30/24 20:49 8 Mg Tablet) PO 09/27/24 22:03 8 mg HS PRN Administration Sleep Pantoprazole Sodium 40 mg 08/28/24 09:00 08/31/24 09:01 Pantoprazole 40 Mg Tablet PO 40 mg BID COCO Administration Perflutren Lipid Microsphere 0 ml 08/31/24 07:08 Perflutren Lipid Microspheres 1.5 Ml Vial Diluted To 10 Ml Total Volume IV PUSH 09/03/24 07:08 ONCE PRN adequate visualization Protocol Prednisone 40 mg 08/29/24 10:55 08/31/24 09:01 Prednisone 20 Mg Tablet PO 40 mg DAILY@0800 [facility] Administration Radiology Results: ITS Impressions Chest X-Ray 08/28/24 05:53 Impression: Clear lungs. Possible COPD. Chest CTA 08/28/24 17:14 IMPRESSION: Suboptimal evaluation of the bilateral lower lobe segmental and subsegmental pulmonary arteries. No CT evidence of acute pulmonary embolus in the adequately visualized vessels. Bilateral hilar lymphadenopathy Venous Doppler Study 08/29/24 18:40 IMPRESSION: 1. No deep venous thrombosis in either lower limb. Labs Labs: Laboratory Results - last 24 hr 08/29/24 08/30/24 08/30/24 05:05 15:53 20:42 WBC RBC Hgb Hct MCV MCH MCHC RDW Plt Count MPV Puncture Site ABG pH ABG pCO2 ABG pO2 ABG PO2/FiO2 Ratio ABG HCO3 ABG O2 Saturation ABG O2 Content ABG Base Excess A-a Gradient Oxyhemoglobin Carboxyhemoglobin Methemoglobin Reduced Hemoglobin Total Hemoglobin O2 Delivery Device O2 Liters/Min FiO2 Expiratory Pressure Inspiratory Pressure Sodium Potassium Chloride Carbon Dioxide Anion Gap BUN Creatinine Estim Creat Clear Calc Estimated GFR Glucose POC Capillary Glucose 204 H 115 H Calcium NT-Pro-B Natriuret Pep TSH Free T4 M.pneumoniae IgM Titer <770 08/31/24 08/31/24 08/31/24 01:08 01:32 02:04 WBC RBC Hgb Hct MCV MCH MCHC RDW Plt Count MPV Puncture Site ABG pH ABG pCO2 ABG pO2 ABG PO2/FiO2 Ratio ABG HCO3 ABG O2 Saturation ABG O2 Content ABG Base Excess A-a Gradient Oxyhemoglobin Carboxyhemoglobin Methemoglobin Reduced Hemoglobin Total Hemoglobin O2 Delivery Device O2 Liters/Min FiO2 Expiratory Pressure Inspiratory Pressure Sodium Potassium Chloride Carbon Dioxide Anion Gap BUN Creatinine Estim Creat Clear Calc Estimated GFR Glucose POC Capillary Glucose 54 L* 60 L 198 H Calcium NT-Pro-B Natriuret Pep TSH Free T4 M.pneumoniae IgM Titer 08/31/24 08/31/24 08/31/24 04:49 06:12 07:54 WBC 11.9 H RBC 3.94 L Hgb 10.7 L Hct 37.5 MCV 95.2 MCH 27.2 MCHC 28.5 L RDW 15.6 H Plt Count 247 MPV 10.6 H Puncture Site Right radial ABG pH 7.379 ABG pCO2 60.3 H* ABG pO2 82.7 ABG PO2/FiO2 Ratio 1.88 ABG HCO3 34.8 H ABG O2 Saturation 95.7 ABG O2 Content 16.1 ABG Base Excess 7.9 A-a Gradient 162.3 Oxyhemoglobin 94.8 Carboxyhemoglobin 0.3 Methemoglobin 0.3 Reduced Hemoglobin 4.6 Total Hemoglobin 12.0 O2 Delivery Device Bipap O2 Liters/Min Not Reportable FiO2 44 Expiratory Pressure 4 Inspiratory Pressure 12 Sodium 142 Potassium 4.5 Chloride 102 Carbon Dioxide 37 H Anion Gap 3 L BUN 44 H Creatinine 1.27 H Estim Creat Clear Calc 22 Estimated GFR 40 L Glucose 87 POC Capillary Glucose 52 L* Calcium 9.0 NT-Pro-B Natriuret Pep 37849 H TSH 1.830 Free T4 1.42 M.pneumoniae IgM Titer 08/31/24 08/31/24 08/31/24 08:18 08:59 11:34 WBC RBC Hgb Hct MCV MCH MCHC RDW Plt Count MPV Puncture Site ABG pH ABG pCO2 ABG pO2 ABG PO2/FiO2 Ratio ABG HCO3 ABG O2 Saturation ABG O2 Content ABG Base Excess A-a Gradient Oxyhemoglobin Carboxyhemoglobin Methemoglobin Reduced Hemoglobin Total Hemoglobin O2 Delivery Device O2 Liters/Min FiO2 Expiratory Pressure Inspiratory Pressure Sodium Potassium Chloride Carbon Dioxide Anion Gap BUN Creatinine Estim Creat Clear Calc Estimated GFR Glucose POC Capillary Glucose 70 135 H 161 H Calcium NT-Pro-B Natriuret Pep TSH Free T4 M.pneumoniae IgM Titer
[2024-08-31] MEDS: INSULIN ASPART (*BKC) 100 UNITS/ML SUB-Q ×2 (17:34→20:24)
[2024-08-31] MEDS: ENOXAPARIN 60 MG/0.6 ML SYRINGE SUB-Q (17:34)
[2024-08-31] MEDS: MONTELUKAST SODIUM 10 MG TABLET PO (17:34)
--- NOTE | 2024-08-31 17:40 | P.CONCA_ITS ---
Assessment and Plan Assessment and plan (1) SOB (shortness of breath) on exertion: Code(s): R06.02 - Shortness of breath Status: Inactive Assessment and Plan: Probably due to COPD exac and oxygen machine was not working properly at home. (2) Coronary artery disease: Code(s): I25.10 - Atherosclerotic heart disease of [place] coronary artery without angina pectoris Status: Acute Assessment and Plan: Stable. (3) HTN (hypertension): Code(s): I10 - Essential (primary) hypertension Status: Resolved Assessment and Plan: Stable. (4) HLD (hyperlipidemia): Code(s): E78.5 - Hyperlipidemia, unspecified Status: Inactive Assessment and Plan: On Lovastatin. (5) Diastolic dysfunction: Code(s): I51.89 - Other ill-defined heart diseases Status: Acute Assessment and Plan: Stable. Appears euvolemic. (6) PFO (patent foramen ovale): Code(s): Q21.12 - Patent foramen ovale Status: Acute Assessment and Plan: I reviewed her echo images. Her hypoxia is likely due to COPD and PFO could be contributing to this. 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 Given her age I don't think further testing is needed at this time. Regarding PFO, consider transfer to another facility for PFO closure to help with hypoxia. Dr. Cazares is covering for me starting tomorrow. History of Present Illness History of Present Illness Consult date/time: 08/31/24 17:40 Reason For Visit: Acute hypoxic respiratory failure, COPD Narrative: 83 yr old woman who is my regular cardiology patient and a patient of Dr. Galvez presents to ER for sob. She has a history of PFO, CAD with 1 stent over 20 years ago at [facility] in [place], diastolic dysfunction, DM, hypertension, dyslipidemia, COPD, former smoking. Reports she was sob and desaturation of oxygen to 80%. She presents to [facility] ER on 08/28/2024 as she was found to be hypoxic and tachypneic with shortness of breath and wheezing. Patient was placed on 10 L non-rebreather, given 2 g IV magnesium, epinephrine, 125 mg IV Solu-Medrol, 3 DuoNebs treatments and brought to the ER. At that time she was saturating 54% on non-rebreather. She was placed on BiPAP and had symptomatic relief. Normally reports she is limited at walking 1/2 block with oxygen due to PAYNE. Denies chest pain, orthopnea, PND, edema, dizziness, palpitations. Cardiovascular Procedures Echo/MUGA: 08/31/24 Echo: EF 60-65%. 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 06/02/23 Echo:EF 55-60%, basal inferoposterior wall is severely hypokinetic, grade I diastolic dysfunction (E/e' 17), mild LAE, trace MR/PI. 11/16/22 Echo: EF 60-65%, mild LVH, grade I diastolic dysfunction (E/e' 13), mild LAE, trace TR. Stress Tests:: 11/02/22 Lexiscan myoview: No ischemia. Fixed anteroseptal defects due to artifact. EF 71%. 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 Prior echocardiogram 05/2023 demonstrated basal inferior septal wall severely hypokinetic to akinetic but this was not mentioned on the most recent echo Chronic kidney disease Stage IIIB Hypothyroidism Coronary artery disease Normal Lexiscan 10/2022 Gastroesophageal reflux disease Chronic obstructive pulmonary disease Hyperlipidemia Surgical History Surgical History History of cholecystectomy History of appendectomy History of partial hysterectomy Family History Family History Father Cerebrovascular accident Mother Diabetes mellitus Heart disease Sibling Throat cancer Renal failure Suicide Sibling Heart disease Social History Social History Social History: Surrogate medical decision maker: anjelica Ward. Code status: Do not intubate Smoking packs per day: 1 Smoking cigarettes per day: 20.0 Years smoked: 60 Smoking pack-years: 60.00 Smoking status: Former smoker Tobacco type: cigarettes Second hand tobacco smoke exposure: Yes Smoking end date: 05/01/1964 Alcohol intake: never Alcohol use details: Social Substance use: never Substance use type: does not use Do You Feel Safe in your Home?: Yes Lack of Transportation: No Lack of Food: Never True Current Housing: I Have Housing Concerned About Future Housing: No Difficulty Paying Gas/Electric Bills: No Difficulty Paying for Meds: No Currently Unemployed: No Education: High School Diploma/GED Difficulty w/ Childcare or Family Care: No Living arrangements: with family Additional living arrangements comments: Lives with son, [id number] and 3 grandchildren in [place]. 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 Gender identity (if verbalized by the patient): Female Spiritual care concerns: No Meds Home Medications and Allergies Home Medications ?Medication ?Instructions ?Recorded ?Confirmed ?Type insulin lispro 100 unit/mL See Protocol subcut TIDWM 05/15/21 08/28/24 History subcutaneous pen (Humalog KwikPen (U-100) Insulin) lovastatin 20 mg tablet 20 mg PO HS 05/15/21 08/28/24 History omeprazole 40 mg capsule,delayed 40 mg PO DAILY 05/15/21 08/28/24 History release aspirin 81 mg tablet,delayed 81 mg PO DAILY 09/26/21 08/28/24 History release levothyroxine 137 mcg tablet 137 mcg PO DAILY@0630 #30 tabs 06/04/23 08/28/24 Rx (Synthroid) levalbuterol tartrate 45 2 inh inhalation Q6H PRN shortness 07/05/23 08/28/24 Rx mcg/actuation aerosol inhaler of breath or wheezing #15 grams escitalopram oxalate 20 mg tablet 20 mg PO DAILY 07/14/23 08/28/24 History furosemide 40 mg tablet 40 mg PO BID 10/25/23 08/28/24 History montelukast 10 mg tablet 10 mg PO QPM 03/12/24 08/28/24 History guaifenesin 600 mg tablet, 600 mg PO Q12HR #60 tabs 03/16/24 08/28/24 Rx extended release 12 hr (Mucus Relief ER) ramelteon 8 mg tablet See Rx Instructions .Route 05/24/24 08/28/24 Rx .COMPLEX #90 tabs Breo Ellipta 100 mcg-25 mcg/dose See Rx Instructions .Route 05/29/24 08/28/24 Rx powder for inhalation (fluticasone .COMPLEX #180 ea furoate-vilanterol) tiotropium bromide 2.5 1 inh inhalation .twice a day #4 06/14/24 08/28/24 Rx mcg/actuation mist for inhalation grams glucagon 3 mg/actuation nasal spray 3 mg intranasal ONCE #2 ea 07/25/24 08/28/24 Rx insulin glargine 100 unit/mL (3 10 unit (0.1 mL) subcut HS #15 mL 07/25/24 08/28/24 Rx mL) subcutaneous pen (Lantus Solostar U-100 Insulin) metoprolol tartrate 25 mg tablet 25 mg PO BID #180 tabs 08/16/24 08/28/24 Rx alprazolam 0.25 mg tablet 0.5 mg PO QID PRN Anxiety 08/28/24 08/28/24 History losartan 50 mg tablet 100 mg PO DAILY 08/28/24 08/28/24 History Allergies Allergy/AdvReac Type Severity Reaction Status Date / Time No Known Allergies Allergy Verified 08/01/24 11:05 Vital Signs Vital Signs - 24 hr 08/30/24 20:00 08/30/24 20:00 08/30/24 20:43 Temperature 97.6 F Pulse Rate 62 59 L 60 Respiratory Rate 18 22 H Blood Pressure 168/75 H Pulse Oximetry 94 100 Oxygen Delivery High Flow Nasal Cannula Oxygen Flow Rate 8 Fraction of Inspired Oxygen 08/30/24 20:47 08/30/24 20:57 08/30/24 21:02 Temperature Pulse Rate 63 62 57 L Respiratory Rate 18 18 Blood Pressure Pulse Oximetry Oxygen Delivery Oxygen Flow Rate Fraction of Inspired Oxygen 08/30/24 21:13 08/30/24 22:10 08/30/24 22:10 Temperature Pulse Rate 62 Respiratory Rate 18 19 Blood Pressure Pulse Oximetry 94 94 94 Oxygen Delivery High Flow Nasal Cannula BiPAP BiPAP Oxygen Flow Rate 8 Fraction of Inspired Oxygen 44 08/30/24 23:47 08/31/24 00:00 08/31/24 04:00 Temperature 97.7 F Pulse Rate 56 L 41 L 39 L Respiratory Rate 22 H Blood Pressure 146/60 H Pulse Oximetry 98 Oxygen Delivery Oxygen Flow Rate Fraction of Inspired Oxygen 08/31/24 05:00 08/31/24 07:50 08/31/24 07:50 Temperature Pulse Rate 63 Respiratory Rate 18 Blood Pressure Pulse Oximetry 98 96 Oxygen Delivery High Flow Nasal Cannula High Flow Nasal Cannula Oxygen Flow Rate 8 8 Fraction of Inspired Oxygen 44 08/31/24 07:59 08/31/24 08:00 08/31/24 08:00 Temperature 97.7 F Pulse Rate 57 L 61 48 L Respiratory Rate 22 H 18 18 Blood Pressure 170/62 H Pulse Oximetry 97 93 Oxygen Delivery High Flow Nasal Cannula Oxygen Flow Rate 8 Fraction of Inspired Oxygen 08/31/24 08:00 08/31/24 09:01 08/31/24 13:11 Temperature Pulse Rate 54 L 63 56 L Respiratory Rate 18 Blood Pressure Pulse Oximetry Oxygen Delivery Oxygen Flow Rate Fraction of Inspired Oxygen 08/31/24 13:20 08/31/24 14:07 08/31/24 16:00 Temperature 97.8 F Pulse Rate 60 57 L Respiratory Rate 18 22 H Blood Pressure 129/51 L Pulse Oximetry 98 Oxygen Delivery High Flow Therapy with Na Oxygen Flow Rate 8 Fraction of Inspired Oxygen Exam 2 Const: General: cooperative, healthy appearing and comfortable Resp: Auscultation: no crackles, no rales, no rhonchi, no wheezes and diminished lung sounds Cardio: Rate: regular rate Rhythm: regular rhythm Heart sounds: no murmurs GI: GI Palp: No abdominal tenderness and Yes Soft to palpation Neuro: General: oriented to person, oriented to place and oriented to time Extrem: Right lower extremity: no edema Left lower extremity: no edema Results Labs and Meds 08/31/24 06:12 08/31/24 06:12 Lab results: CBC 08/31/24 Range/Units 06:12 WBC 11.9 H (4.5-10.0) K/mm3 RBC 3.94 L (4.2-5.4) M/mm3 Hgb 10.7 L (12.0-15.0) g/dL Hct 37.5 (37.0-47.0) % Plt Count 247 (150-375) k/mm3 Comprehensive Metabolic Panel 08/31/24 Range/Units 06:12 Sodium 142 (137-145) mmol/L Potassium 4.5 (3.4-5.0) mmol/L Chloride 102 (98-107) mmol/L Carbon Dioxide 37 H (22-30) mmol/L BUN 44 H (7-17) mg/dL Creatinine 1.27 H (0.7-1.0) mg/dL Glucose 87 (65-110) mg/dL Calcium 9.0 (8.4-10.2) mg/dL Intake and Output 08/31/24 08/31/24 08/31/24 07:59 15:59 23:59 Intake Total 520 340 Output Total 500 Balance 20 340 Intake: Oral 520 340 Output: Urine 500 Other: # Urine Diapers 1 Patient Weight 08/31/24 23:59 Weight 59 kg
[2024-08-31] MEDS: AZITHROMYCIN 250 MG TABLET 500 MG PO (20:22)
[2024-08-31] MEDS: INSULIN GLARGINE (*BKC) 100 UNITS/ML 20 UNITS SUB-Q (20:25)
[2024-08-31] MEDS: LOVASTATIN 20 MG TABLET PO (21:00)
[2024-09-01] VITALS (18 sets, daily range): BP systolic 115–148; BP diastolic 44–68; PULSE 40–85; RESP 18–26; TEMP 36.4–36.6; O2SAT 90–100
[2024-09-01] MEDS: IPRATROPIUM 0.5 MG/ALBUTEROL SULFATE 2.5 MG AMPUL.NEB 3 ML INHALATION ×2 (01:20→09:00)
[2024-09-01 04:34] LABS: Alveolar/Arterial O2 Gradient 134.7 mmHg; Fractional Inspired Oxygen 36 %; HCO3 ABG 32.8 mEq/l (22.0-26.0); Oxygen Content ABG 15.6 %vol (16.0-22.0); Oxygen Saturation ABG 91.3 % (95.0-100.0); PCO2 ABG 52.5 mmHg (35.0-45.0); PO2 ABG 61.1 mmHg (80.0-100.0); PO2 FiO2 Ratio Arterial Blood 1.70 %
[2024-09-01 04:39] LABS: Modified Allen's Test Pass; Site Drawn RIGHT RADIAL
[2024-09-01] MEDS: LEVOTHYROXINE SODIUM 112 MCG TABLET PO (06:23)
[2024-09-01] MEDS: LEVOTHYROXINE SODIUM 25 MCG TABLET PO (06:23)
[2024-09-01 06:55] LABS: Hematocrit 43.1 % (37.0-47.0); Hemoglobin 12.4 g/dL (12.0-15.0); Mean Corpuscular HGB Conc 28.8 g/dl (32-36); Mean Corpuscular Hemoglobin 26.8 pg (26-34); Mean Corpuscular Volume 93.3 fl (80-100); Platelet Count Result 293 k/mm3 (150-375); Red Blood Count 4.62 M/mm3 (4.2-5.4); White Blood Count 12.2 K/mm3 (4.5-10.0)
[2024-09-01 07:16] LABS: Anion Gap 6 mmol/L (4-12); Blood Urea Nitrogen 55 mg/dL (7-17); Calcium 9.3 mg/dL (8.4-10.2); Carbon Dioxide 37 mmol/L (22-30); Chloride 98 mmol/L (98-107); Estimated CRCL calculation 20 ml/min; Estimated Glomerular Filt Rate 35; Glucose 74 mg/dL (65-110); Potassium 4.1 mmol/L (3.4-5.0); Sodium 141 mmol/L (137-145)
[2024-09-01] MEDS: PANTOPRAZOLE 40 MG TABLET PO (08:51)
[2024-09-01] MEDS: ESCITALOPRAM OXALATE 10 MG TABLET 20 MG PO (08:51)
[2024-09-01] MEDS: LOSARTAN POTASSIUM 50 MG TABLET 100 MG PO (08:52)
[2024-09-01] MEDS: FUROSEMIDE 40 MG TABLET PO (08:52)
[2024-09-01] MEDS: guaiFENesin 12 HR 600 MG TABCR 1200 MG PO (08:52)
[2024-09-01] MEDS: ENOXAPARIN 60 MG/0.6 ML SYRINGE SUB-Q (08:53)
[2024-09-01] MEDS: ASPIRIN 81 MG ENTERIC TABLET PO (08:53)
--- NOTE | 2024-09-01 09:35 | P.PNPL_ITS ---
Progress Note: A&P Assessment and Plan (1) COPD (chronic obstructive pulmonary disease): Qualifiers: COPD type: COPD with acute exacerbation Qualified Code(s): J44.1 - Chronic obstructive pulmonary disease with (acute) exacerbation Code(s): J44.9 - Chronic obstructive pulmonary disease, unspecified Status: Acute Assessment and Plan: Gold grade 3 group E COPD 67 PY tobacco use, quit 02/2019. 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 06/22/2024: PFTs with FEV1 0.81 L, 49% predicted, ratio 48%, DLCO 15% and when corrected for alveolar volume 29%. Positive bronchodilator response. PFTs 11/03/2019 with a moderate obstructive abnormality with an FEV1 0.93 L, 64% predicted. FEV1: FVC ratio 42%. No bronchodilator response. Air trapping, Severely decreased DLCO and remain moderately decreased when adjusted for alveolar volume. CT scan of chest 04/10/2019 and most recently on 05/01/2024 with severe centrilobular emphysema apices greater than bases. Chronic hypoxemic respiratory failure requiring 6 L at rest and 9 with activity per home O2 assessment 05/03/2024. Require 6 L nasal cannula at night per overnight oximetry 05/02/2024. at home requiring 8.5 L nasal cannula with rest saturations 86-92%, 8.5 L with activity saturations 86%. 05/01/2024 ABG on Airvo 35 L 63% pH 7.44/41/80. echocardiogram 03/14/2024 with LVEF 65-70, grade 1 diastolic dysfunction, moderately enlarged left atrium normal RV size and function. Normal right atrial size. Trace tricuspid valve regurg with PASP 23. Patient presents now with Hypoxemic respiratory failure leading to shortness of breath without cough, phlegm production or change in phlegm volume or color. She was in respiratory distress and placed on BiPAP with blood gas of 7.35/51/139. She had a leukocytosis, clear chest x-ray and a D-dimer that is positive. She was treated with magnesium, DuoNebs, epinephrine, Solu-Medrol, ceftriaxone and azithromycin. After 12 hours, patient denies fever, chills, rigors, cough, phlegm production or chest pain. She is on 12 L nasal cannula saturations 92%. She is in no respiratory distress and has no wheezing. Patient tells me she is breathing normal right now. patient tells me she gained 5 lb in the last week, had swelling 1 day [place] [address]. procalcitonin 0.3. COVID, influenza, RSV RT PCR assay negative. Etiology of hypoxemic respiratory failure includes PE, mucus plugging, COPD exacerbation, fluid overload and or pneumonia Plan: I will order CT angiogram of the chest. Will hold Lasix at this time as she will receive a dye load. I will treat for mucus plugging with guaifenesin 1200 mg p.o. b.i.d, DuoNebs q.4 hours. Will treat for possible COPD exacerbation with Solu-Medrol 20 mg IV Q 6. Continue montelukast 10 Q.day. continue ceftriaxone and azithromycin day 1. I will send a respiratory pathogen panel, urine for Legionella, urine for pneumococcal disease and a serum mycoplasma IgM. Later in the day patient had a CT angiogram of the chest with motion artifact but no large central PEs, apical predominant centrilobular emphysema, no focal infiltrates, no nodules, no masses and no pleural effusions. 08/29/24: Overall the patient tells me she is breathing 90% back to her normal. She still has some rest shortness of breath. She denies cough, phlegm or hemoptysis. When I enter the room she was on 10 L nasal cannula saturation 93%. White blood cell count 16.0, creatinine 1.37, BNP has increased from 15,600 on 08/28/2024 to [address] today. Procalcitonin has increased from 0.3 on 08/28/2024 to 0.7 today. Plan: I will change the patient's Solu-Medrol 20 q.6 to prednisone 40 q.day, day 2 of steroids. I will decrease the frequency of the DuoNeb from q.4 hours to q.6 hours. Continue guaifenesin 1200 p.o. b.i.d. and montelukast 10 q.day. although there is no focal infiltrate on the CT scan she has a persistent leukocytosis. I will continue ceftriaxone and azithromycin, both day 2. Goal saturation 90-94%. Currently the patient is on 10 L nasal cannula and required 12 L to get out of bed. Lower extremity Dopplers ordered. Respiratory pathogen panel, mycoplasma IgM, urine Legionella and urine pneumococcal antigen pending. Later in the day lower extremity Dopplers negative. 08/30/24: Patient tells me she is breathing 100% back to her normal. She slept okay on 10 L nasal cannula. She denies cough, phlegm or hemoptysis. She got out of bed to the chair yesterday. When I enter the room she was on 12 L with saturations 100%. I decreased her to 8 L and after 5 minutes her saturations decreased to 85%. I increased her back to 10 L and her saturations were 93%. She is afebrile. Yesterday she was -440 mL, cumulative since admission she is positive 965 mL. Her weight today is 59 kilos. Patient an overnight oximetry on 10 L with recording duration of 5 hours and 50 minutes. Average saturation 99%. Low saturation 92%. Time with saturation less than or equal to 88% was 0 minutes. Oxygen desaturation index 0.9. ABG on 10 L nasal cannula 7.39/56/69. Plan: Continue prednisone 40 mg p.o. q.day, day 3. Continue DuoNbs q.6 hours, guaifenesin 1200 b.i.d., montelukast 10 a day. Continue ceftriaxone and azithromycin, both day 3. Out of bed to chair. Respiratory pathogen panel pending. 08/31/2024: Patient tells me she is breathing back to her normal, no cough, no phlegm, no hemoptysis. She is afebrile. Patient is on 8 L nasal cannula s aturations 97%. White blood cell count 11.9, creatinine 1.27, BNP 83563. Weight is 59 kilos. plan: Continue prednisone 40 mg p.o. q.day, day 4. Continue DuoNbs q.6 hours, guaifenesin 1200 b.i.d., montelukast 10 a day. Discontinue ceftriaxone and continue azithromycin 500 PO, day 4 of 5. Out of bed to chair. Respiratory pathogen panel pending. 09/01/2024: Patient tells me she is breathing at her normal. Denies cough, phlegm or hemoptysis. She briefly sat in a chair yesterday. Currently she is on 8 L nasal cannula saturations 91%. White blood cell count 12.2, creatinine 1.43. Yesterday she was positive 1.9 L, cumulative she is positive 3 L since admission. Her weight today is 59 kilos. Plan: Continue prednisone 40 mg p.o. q.day, day 5 and will discontinue today. I will change to hospital equivalence of her home Breo Ellipta 100-25 and Spiriva Respimat 2.5 at 1 inhalation twice a day to hospital substitues of Advair HFA 230-21 at 1 puff b.i.d. and Incruse Ellipta 62.5 at 1 puff q.day. Of note patient states that she has tried trelegy in the past and this inhaler did not work for her. Continue guaifenesin 1200 b.i.d., montelukast 10 a day. Azithromycin 500 PO, day 5 of 5 and DC after tonights dose. Out of bed to chair. Respiratory pathogen panel pending. Discussed with Dr. Deleon, will follow with you. (2) Respiratory failure with hypoxia and hypercapnia: Code(s): J96.91 - Respiratory failure, unspecified with hypoxia; J96.92 - Respiratory failure, unspecified with hypercapnia Status: Acute Assessment and Plan: Chronic hypoxemic respiratory failure from COPD requiring 6 L at rest and 9 with activity per home O2 assessment 05/03/2024. Require 6 L nasal cannula at night per overnight oximetry 05/02/2024. At home requiring 8.5 L nasal cannula with rest saturations 86-92%, 8.5 L with activity saturations 86%. 08/30/2024: ABG on 10 L nasal cannula 7.39/56/69. Patient has chronic hypercarbic respiratory failure from her COPD. Patient would benefit from noninvasive ventilation to prevent further deterioration and subsequent hospitalizations. I will place the patient on BiPAP no rate, pressures 15/5 and 44% FIO2. I have previously talked to [employer] about 210 L high-flow concentrator so that would be hooked up in series to give her high flow and at that time they thought she could be controlled with 1 10 L oxygen concentrator and a nasal cannula reservoir for Oxymizer. 08/28/24: Patient required BiPAP in the emergency for room for hypoxemic respiratory failure and work of breathing. ABG on BiPAP 12, pressures 14/8 and 100% was 7.35/51/139. Currently the patient is on 12 L nasal cannula saturations 92%. Plan: Goal saturation 90-94%. Patient can wear her BiPAP with the above settings on a p.r.n. basis during the day and night. Once the patient is improved and close to her baseline will repeat ABG after off being off BiPAP for 24 hours to reassess for chronic hypercarbic respiratory failure. 08/29/24: Patient did not require BiPAP last night. Currently she is on 10 L nasal cannula with saturations 93%. She required 12 L to get out of bed and had little stamina when she was sitting up. Plan: Goal saturation 90-94%. Tonight I will perform overnight oximetry on 10 L nasal cannula. I will repeat ABG tomorrow morning at 8:30 a.m. off of BiPAP for 48 hours to assess for chronic hypercarbic respiratory failure. 08/30/2024: ABG on 10 L nasal cannula 7.69. Patient an overnight oximetry on 10 L with recording duration of 5 hours and 50 minutes. Average saturation 99%. Low saturation 92%. Time with saturation less than or equal to 88% was 0 minutes. Oxygen desaturation index 0.9. ABG on 10 L nasal cannula 7.69. Plan: I will place the patient on BiPAP And adjusted the settings to comfort resulting in a rate of 4, pressures 12/4, inspiratory time 1.0, rise of 5 and 44% FiO2. Will check an overnight oximetry and an ABG prior to removal in the morning. 08/31/24: Patient wore the hospital BiPAP with full face mask and said she slept well. Patient had an overnight oximetry on the above settings with recording duration of 6 hours and 38 minutes, average saturation 98%, low saturation 74%, time with saturation less than or equal to 88% was 3 minutes, oxygen desaturation index 0.6. Patient had an ABG prior to removal with a pH of 7.38/60/83. Plan: BiPAP rate of 4 pressures 12/4 provide inadequate ventilation. At the bedside I have placed the patient on BiPAP and she can tolerate pressures 18/4. Will decrease her FiO2 to 36% tonight and perform overnight oximetry and ABG in the morning on these settings. Will order echo with bubble. Later in the day Patient had an echo with a bubble. LVEF 60 is 65%. Left atrium mildly dilated, right ventricle dilated with normal function. Right atrium with a mass suggestive of a calcified structure versus a thrombus. Right to left shunt suggestive of a large size PFO. 09/01/2024: Patient wore the hospital fullface mask with BiPAP rate of 4, pressures 18/4 and 36% FiO2. Overnight oximetry on these settings with a recording duration of 8 hours and 7 minutes, average saturation 94%. Low saturation 72%. Time with saturation less than or equal to 88 was 21 minutes, oxygen desaturation index 3.8. ABG prior to removal was 7.41/52.5/61. Plan: Patient said she was able to sleep with these settings and had no issues with the mask or machine. Current BiPAP rate of 4, pressures 18/4 and 36% FiO2 provide adequate ventilation but inadequate oxygenation. Will initiate process for home noninvasive ventilation with BiPAP no rate, pressures 18/4 and 6 L bleed in. Will discuss with [employer] company and insurance regarding additional requirements to qualify her for home BiPAP. See below regarding PFO. (3) PFO (patent foramen ovale): Code(s): Q21.12 - Patent foramen ovale Status: Acute Assessment and Plan: 08/31/24: Later in the day Patient had an echo with a bubble. LVEF 60 is 65%. Left atrium mildly dilated, right ventricle dilated with normal function. Right atrium with a mass suggestive of a calcified structure versus a thrombus. Right to left shunt suggestive of a large size PFO. RVSP 56. 09/01/24: Through the bedside nurse: [facility] gasoline attendant, Dr. Gomez, has spoken to her gasoline attendant at [facility], Dr. Cazares. Dr. Cazares has request inpatient transfer to [facility] in anticipation of right and left heart catheterization on 09/04 or 09/05. Discussed with hospitalist Dr. Deleon who will initiate transfer to [facility]. Subjective Date/time seen: 09/01/24 09:35 Interval history: 08/28/2024: This is a new pulmonary consult for COPD exacerbation. 83-year-old with a history of COPD with hypoxic respiratory failure on 8.5 L with activity, rest and sleep, hypertension, diabetes, hyperlipidemia, hypothyroidism, CKD. patient is followed in the pulmonary clinic and last seen on 06/14/2024. she had dyspnea on exertion walking 5-6 steps worse over the last year, makes phlegm 1 time a week. Wearing 9 L at rest with saturations 92-93% and wearing 9 L with activity saturations 77-81. Wears 9 L at night. Her CAT score was 20. She was taking Breo Ellipta 1 puff a day, montelukast 10, DuoNebs q.6 and guaifenesin 600 b.i.d.. She is not smoking. I ordered an alpha 1 anti trypsin genotype, added Spiriva Respimat 2.5 twice a day. [facility] gave her headaches. [employer] 600 dollars a month and could not afford. I ordered PFTs, referred her to pulmonary rehabilitation told her to increase to 10 and if she was still less than 88% would get her a 2nd high-flow oxygen concentrator. Family call me back and said she was hypoxemic on 9.5 L and I contacted the DME to give her a 2nd 10 L flow to maintain saturations 89% or greater. That day the DME company called me and said they would like to try an Oxymizer nasal cannula. alpha 1 antitrypsin MZ with a level of 115 which was normal. 07/20/24 1253 Patient states that Pulmonary Rehab is like $40 a week for 8 weeks and she can not afford that. 07/12/2024: PFTs with a severe obstructive abnormality, FEV1 0.80 L, 49% predicted, ratio 48%, positive bronchodilator response. Unable to complete plethysmography. DLCO severely decreased when adjusted for alveolar volume. In comparison to previous PFTs on 11/03/2019 there has been a greater than anticipated decrease in the FVC, FEV1 and diffusing capacity. Over the last 1 and half months the patient tells me that she was doing better. She was more active around the house and the granddaughter lives next her confirms this. The patient was wearing 8.5 L at rest with saturations 86-92%. The patient was wearing 8 9.5 L with activity and saturations were closer to 86 and she uses a scooter to get around the house. Over the last 2 weeks the patient states she gained 5 lb in last week and 1 day with pedal edema. Patient was in her usual state of health on 08/27/24 and said that she ate dinner and was normal. She was sitting on the side of her bed and on 8.5 L her saturations decreased to 81%. She denied fever, chills, rigors, cough, change in phlegm. She called her granddaughter who came over and 2 minutes and put her up to 10 L and her saturations were 79%. She then tried to change her to the tank with the Oxymizer nasal cannula her saturations on 6 L were 74% and on 8 L were 79%. EMS was called. The granddaughter noted that her breathing status was labored and she was breathing with her stomach. When EMS arrived her saturations were low and she was placed on 10 L non-rebreather. Patient was brought to the emergency room in respiratory distress, saturations on 10 L non- rebreather 54% blood pressure 138/78, respiratory rate 29 and Love patient was placed on BiPAP rate of 12, pressures 14/8 and 100% FiO2 and improved. Her white blood cell count was 22.9, her creatinine was 1.40, [place] BNP was 83336, her chest x-ray showed clear lungs. COVID influenza and RSV RT PCR negative. Procalcitonin 0.3. ABG on BiPAP with settings above 7.35/51/139. Patient was treated with magnesium, hour lung nebulizer, epinephrine, Solu-Medrol 125, ceftriaxone and azithromycin. Patient was admitted to the floor. D-dimer 0.68 positive. Currently patient denies fever, chills, rigors, cough, phlegm production or chest pain. She is on 12 L nasal cannula saturations 92%. She is in no respiratory distress and has no wheezing. Patient tells me she is breathing normal right now. Later in the day patient had a CT angiogram of the chest with motion artifact but no large central PEs, apical predominant centrilobular emphysema, no focal infiltrates, no nodules, no masses and no pleural effusions. 08/29/24: Overall the patient tells me she is breathing 90% back to her normal. She still has some rest shortness of breath. She denies cough, phlegm or hemoptysis. When I enter the room she was on 10 L nasal cannula saturation 93%. White blood cell count 16.0, creatinine 1.37, BNP has increased from 15,600 on 08/28/2024 to 70285 today. Procalcitonin has increased from 0.3 on 08/28/2024 to 0.7 today. Later in the day lower extremity Dopplers negative. 08/30/24: Patient tells me she is breathing 100% back to her normal. She slept okay on 10 L nasal cannula. She denies cough, phlegm or hemoptysis. She got out of bed to the chair yesterday. When I enter the room she was on 12 L with saturations 100%. I decreased her to 8 L and after 5 minutes her saturations decreased to 85%. I increased her back to 10 L and her saturations were 93%. She is afebrile. Yesterday she was -440 mL, cumulative since admission she is positive 965 mL. Her weight today is 59 kilos. Patient an overnight oximetry on 10 L with recording duration of 5 hours and 50 minutes. Average saturation 99%. Low saturation 92%. Time with saturation less than or equal to 88% was 0 minutes. Oxygen desaturation index 0.9. Patient tells me she feels well enough to be discharged home today. ABG on 10 L nasal cannula 7.39/56/69. patient with chronic hypercarbic respiratory failure and placed on BiPAP and adjust settings to comfort resulting in a rate of 4, pressures 12/4, inspiratory time 1.2, rise of 5 and 44% FiO2. 08/31/2024: Patient tells me she is breathing back to her normal, no cough, no phlegm, no hemoptysis. She is afebrile. Patient is on 8 L nasal cannula saturations 97%. White blood cell count 11.9, creatinine 1.27, BNP 75432. Patient wore the hospital BiPAP with full face mask and said she slept well. Patient had an overnight oximetry on the above settings with recording duration of 6 hours and 38 minutes, average saturation 98%, low saturation 74%, time with saturation less than or equal to 88% was 3 minutes, oxygen desaturation index 0.6. Patient had an ABG prior to removal with a pH of 7.38/60/83. Later in the day Patient had an echo with a bubble. LVEF 60 is 65%. Left atrium mildly dilated, right ventricle dilated with normal function. Right atrium with a mass suggestive of a calcified structure versus a thrombus. Right to left shunt suggestive of a large size PFO. RVSP 56. 09/01/2024: Patient tells me she is breathing at her normal. Denies cough, phlegm or hemoptysis. She briefly sat in a chair yesterday. Currently she is on 8 L nasal cannula saturations 91%. White blood cell count 12.2, creatinine 1.43. Yesterday she was positive 1.9 L, cumulative she is positive 3 L since admission. Her weight today is 59 kilos. Patient wore the hospital fullface mask with BiPAP rate of 4, pressures 18/4 and 36% FiO2. Overnight oximetry on these settings with a recording duration of 8 hours and 7 minutes, average saturation 94%. Low saturation 72%. Time with saturation less than or equal to 88 was 21 minutes, oxygen desaturation index 3.8. ABG prior to removal was 7.41/52.5/61. DATA: 08/31/24: Echo Summary 1. Complete two-dimensional, color flow and Doppler transthoracic echocardiogram is performed. 2. The right atrium is normal size. There is a stable echo dense mass in the right atrium suggestive of calcified structure versus stable thrombus. Recommend outpatient advance cardiac imaging such as CT or MRI. 3. Agitated saline study is positive for [id number] shunting suggestive of a large size PFO. 4. The left ventricle is normal in size and systolic function. There is mild concentric left ventricular hypertrophy. The left ventricular ejection fraction is visually estimated to be 60-65%. 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 The basal inferolateral wall is dyskinetic. 5. The right ventricle is dilated with normal systolic function. Right Ventricle The right ventricle is dilated with normal systolic function. Left Atria The left atrium is mildly dilated. Right Atria The right atrium is normal size. There is a stable echo dense mass in the right atrium suggestive of calcified structure versus stable thrombus. Recommend outpatient advance cardiac imaging such as CT or MRI. Atrial Septum Agitated saline study is positive for [id number] shunting suggestive of a large size PFO. RVSP 56. 08/28/24: EXAMINATION: CTA chest PE protocol INDICATION: R/O PE COMPARISON: 05/01/2024. FINDINGS: Lung parenchyma and airways: Motion artifact, worst in the lower lobes. Emphy sematous change. Lingular atelectasis/scar. Patent airways. Pleura: Unremarkable. Thoracic inlet, axillae and chest wall: Unremarkable. Thoracic aorta: No significant dilation. No dissection. Atherosclerotic calcification. Mediastinum: Dilated central pulmonary arteries as can be seen with pulmonary hypertension. Enlarged bilateral hilar lymph nodes. Heart and pericardium: Enlarged heart. Coronary artery calcifications: Heavy. Upper abdomen: Status post cholecystectomy. Bones: No acute osseous finding. Pulmonary arteries: Study quality: Motion artifact limits evaluation of the bila teral lower lobe segmental and subsegmental pulmonary arteries. No pulmonary emboli detected in the adequately visualized vessels. IMPRESSION: Suboptimal evaluation of the bilateral lower lobe segmental and subsegmental pulmonary arteries. No CT evidence of acute pulmonary embolus in the adequately visualized vessels. Bilateral hilar lymphadenopathy 07/12/2024: Alpha 1 anti trypsin level 115, normal 83-199. No intervention at this time. 07/12/2024: This is a pulmonary function test with pre and post-bronchodilator spirometry, and diffusing capacity. The test was performed and results interpreted in accordance with the 2019 and 2005 ATS/ERS Task Force guidelines respectively using the Global Lung Function Initiative-2012 reference equations. Patient demonstrated good effort and cooperation. Reproducibility criteria were met. Of note, the patient was unable to complete lung volume testing. Findings: Spirometry: There is decreased maximal expiratory flows at all lung volumes with a concave expiratory flow tracing. The contour the inspiratory flow tracing is truncated. The pre bronchodilator FVC is 1.68 L, 81% predicted. The pre bronchodilator FEV1 is 0.80 L, 49% predicted. The pre bronchodilator FEV1: FVC ratio is 48%. The post bronchodilator FVC is 2.09 L, representing a 24% increase. The post bronchodilator FEV1 is 0.86 L, representing an 8% increase. The post bronchodilator FEV1: FVC ratio is 41%. Diffusing capacity: The diffusing capacity unadjusted for hemoglobin and carboxyhemoglobin is 2.2, 15% predicted. The diffusing capacity adjusted for alveolar volume is 0.95, 29% predicted. In comparison to previous pulmonary function testing on 11/03/2019 the post bronchodilator FVC is decreased from 2.39 L to 2.09 L. The post bronchodilator FEV1 is decreased from 1.01 L to 0.86 L. the diffusing capacity unadjusted for hemoglobin and carboxyhemoglobin is decreased from 4.8 to 2.2. The diffusing capacity adjusted for alveolar volume is decreased from 1.95 to 0.95. Impression: There is a severe obstructive abnormality. There is significant improvement after inhaling a single dose of albuterol. The diffusing capacity unadjusted for hemoglobin and carboxyhemoglobin is severely decreased and remains severely decreased when adjusted for alveolar volume. In comparison to previous pulmonary function testing on 11/03/2019 there has been a greater than anticipated time dependent increase in the FVC, FEV1 and diffusing capacity. These results are consistent with worsening COPD now grade 3 group B COPD. 06/14/2024: Alpha 1 anti trypsin MZ. I will send an alpha 1 anti trypsin level. 05/03/2024: Home O2 assessment:? Rest nasal cannula 6 L saturation 90%.? Exercise nasal cannula 6 L saturation 79%.? Exercise nasal cannula 7 L saturation 84%.? Exercise nasal cannula 8 L saturation 87%.? Exercise nasal cannula 9 L saturation 90%. 05/02/2024: Overnight oximetry on 6 L nasal cannula.? Recording duration 6 hours and 3 minutes.? Average saturation 97%.? Low saturation 88%.? Time with saturation less than or equal to 88% was 4 minutes.? Oxygen desaturation index 2. 05/01/2024:? ABG on Airvo 35 L, 63% FiO2 pH 7.44/41/80. 05/01/24: CTA chest PE protocol Ordering provider: Antony VieyraMD History: 83 years Female with . SOB . Comparison: March 12, 2024 Technique: CT angiogram chest was performed following timed intravenous injection of contrast. Thin slice axial images and reformatted coronal images were obtained. Three dimensional reformatted images of the chest were also obtained using a [id number] workstation. . Automated exposure control and iterative reconstruction technique were employed. The dose-length product was 501.20 mGy- cm. 100 mL Omnipaque 350 was given IV. Findings: PULMONARY ARTERIES: No pulmonary embolus. VISUALIZED THORACIC INLET: Normal. MEDIASTINUM: Aorta/coronary arteries: Mild atheromatous disease. Heart/other: The heart is not enlarged. Lymph nodes: No mediastinal or hilar adenopathy. Precarinal lymph node is seen measuring 1.3 cm. LUNGS: Minimal atelectasis versus pneumonia in the lingula is noted. Underlying emphysematous changes. No pulmonary nodules or masses. No infiltrates or eff usions. No pneumothorax. VISUALIZED UPPER ABDOMEN: Status post cholecystectomy. Markedly thickened wall of the stomach. Further evaluation advised. Otherwise, the visualized upper abdomen is normal. MUSCULOSKELETAL: Soft tissues: The superficial soft tissues are normal. Bones: Age appropriate degenerative changes of the spine. IMPRESSION: 1. No pulmonary embolism. 2. Atelectatic changes in the area of the lingula. Pneumonia is less likely. 3. Markedly thickened wall of the stomach. Further evaluation advised. 03/14/2024: Echo Summary 1. Complete two-dimensional, color flow and Doppler transthoracic echocardiogram is performed. 2. Left ventricular chamber dimension is normal. 3. 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 4. There is mild concentric increased left ventricular wall thickness. 5. Left ventricular systolic function is normal, estimated at 65-70%. 6. The left ventricular diastolic function is grade I diastolic dysfunction. 7. E/e' 11 is mildly elevated. 8. Left atrial chamber dimension is moderately enlarged. 9. There is mild aortic valve sclerosis. 10. There is trace tricuspid valve regurgitation. 11. No pulmonary hypertension, estimated pulmonary arterial systolic pressure is 23 mmHg. 12. There is trivial pericardial effusion. Right Ventricle Right ventricular systolic function is normal and with normal TAPSE 2.7 cm. Right ventricular chamber dimension is normal. Left Atria Left atrial chamber dimension is moderately enlarged. Right Atria Right atrial chamber dimension is normal. TTE @ [facility] 04/04/23 - EF 55-60%, LV diastolic function abnormal, RV volume and pressure overload. Normal RV systolic function. Stress Test 11/09/22 - Myocardial perfusion imaging demonstrating a fixed moderate size anteroseptal perfusion defect suggestive of breast attenuation artifact. No evidence of reversible ischemia. Negative lexiscan stress test for ischemic ST changes by ECG criteria. Stable hemodynamics throughout the test. 06/02/23 - Echo Summary 1. Complete two-dimensional, color flow and Doppler transthoracic echocardiogram is performed. 2. Left ventricular chamber dimension is normal. 3. Basal inferoposterior wall is severely hypokinetic to akinetic. 4. Left ventricular systolic function is normal, estimated at 55-60%. 5. The left ventricular diastolic function is grade I diastolic dysfunction. 6. E/e' 17 is elevated. 7. Left atrial chamber dimension is mildly enlarged. 8. There is mild aortic valve sclerosis. 9. There is trace mitral valve regurgitation. 10. No pulmonary hypertension, estimated pulmonary arterial systolic pressure is 25 mmHg. 11. There is trace pulmonic regurgitation. Right Ventricle Right ventricular systolic function is normal and with normal TAPSE 2.5 cm. Right ventricular chamber dimension is normal. Left Atria Left atrial chamber dimension is mildly enlarged. Right Atria Right atrial chamber dimension is normal. Overnight ox on 3L 10/23/22 - 8min spent below 88% saturation (seems likely artifact). PFT 11/03/19 - Moderate airflow obstruction with hyperinflation, air trapping and severely reduced diffusion capacity; no acute bronchodilator response. This correlates with COPD. FEV1/FVC 42%, FEV1 0.93L (64%), TLC 129%, RV/TLC ration 57%, uncorrected DLCO 30%, DLCO corrected for alveolar volume 57%. Echo 05/2021 - EF 60-65%, diastolic dysfunction, moderate pulmHTN. Chest CT 04/12/20 - Right perihilar 9 mm nodule, likely benign given two-year stability. Moderate emphysema. This was PET-CT negative.? Review of Systems Constitutional: Constitutional: Reports no additional constitutional complaints Eyes: Eyes: Reports no additional eye complaints ENT: Reports system reviewed and no additional complaints, except as doc umented Cardiovascular: Cardiovascular: Reports no additional cardiovascular complaints Respiratory: Respiratory: Reports no additional respiratory complaints Gastrointestinal: Gastrointestinal: Reports no additional gastrointestinal complaints Musculoskeletal: Musculoskeletal: Reports no additional musculoskeletal complaints Neurologic: Reports system reviewed and no additional complaints, except as documented Psychiatric: Psychiatric: Reports no additional psychiatric complaints Endocrine: Endocrine: Reports no additional endocrine complaints Hematologic/Lymphatic: Hematologic/Lymphatic: Reports no additional hematologic/lymphatic complaints Allergic/Immunologic: Allergic/Immunologic: Reports no additional allergic/immunologic complaints Exam Const: General: cooperative, healthy appearing and comfortable Orientatio n/consciousness: oriented to person, oriented to place and oriented to time HENMT: Head: normal to inspection Ears: hearing grossly normal bilaterally Eyes: General: appearance normal, both eyes and all related structures Neck: Neck: normal visual inspection Chest: Chest palpation & inspection: normal inspection of the chest Resp: Effort & Inspection: normal respiratory effort and able to speak in complete sentences Auscultation: no crackles, no rales, no rhonchi, no wheezes and diminished lung sounds Cardio: Jugular venous distension: no JVD GI: Inspection: normal to inspection Skin: General skin exam: normal color Neuro: General: oriented to person, oriented to place and oriented to time Extrem: General: normal to inspection Psych: Appearance: grossly normal Objective Data Vital Signs Vital Signs: Vital Signs - 24 hr 08/31/24 12:00 08/31/24 13:11 08/31/24 13:20 Temperature Pulse Rate 59 L 56 L 60 Respiratory Rate 18 18 Blood Pressure Pulse Oximetry Oxygen Delivery Oxygen Flow Rate Fraction of Inspired Oxygen 08/31/24 14:07 08/31/24 16:00 08/31/24 16:00 Temperature 36.6 C Pulse Rate 57 L 62 Respiratory Rate 22 H Blood Pressure 129/51 L Pulse Oximetry 98 Oxygen Delivery High Flow Therapy with Na Oxygen Flow Rate 8 Fraction of Inspired Oxygen 08/31/24 20:00 08/31/24 20:00 08/31/24 20:23 Temperature Pulse Rate 60 40 L 56 L Respiratory Rate 21 H Blood Pressure Pulse Oximetry 99 Oxygen Delivery High Flow Nasal Cannula Oxygen Flow Rate 10 Fraction of Inspired Oxygen 08/31/24 21:04 08/31/24 21:06 08/31/24 21:18 Temperature Pulse Rate 48 L 49 L Respiratory Rate 20 21 H Blood Pressure Pulse Oximetry 100 99 Oxygen Delivery High Flow Nasal Cannula BiPAP Oxygen Flow Rate 8 Fraction of Inspired Oxygen 48 08/31/24 22:00 09/01/24 00:00 09/01/24 00:00 Temperature Pulse Rate 40 L 46 L 41 L Respiratory Rate Blood Pressure Pulse Oximetry Oxygen Delivery Oxygen Flow Rate Fraction of Inspired Oxygen 09/01/24 00:00 09/01/24 02:00 09/01/24 04:00 Temperature Pulse Rate 40 L 40 L 48 L Respiratory Rate 18 18 Blood Pressure Pulse Oximetry 91 91 Oxygen Delivery BiPAP BiPAP Oxygen Flow Rate Fraction of Inspired Oxygen 36 36 09/01/24 04:00 09/01/24 04:41 09/01/24 04:43 Temperature Pulse Rate 59 L 85 Respiratory Rate 18 Blood Pressure Pulse Oximetry 98 98 Oxygen Delivery BiPAP High Flow Nasal Cannula Oxygen Flow Rate 8 Fraction of Inspired Oxygen 48 09/01/24 08:00 09/01/24 09:02 09/01/24 09:10 Temperature 36.4 C L Pulse Rate 60 69 65 Respiratory Rate 26 H 20 Blood Pressure 135/68 Pulse Oximetry 92 Oxygen Delivery Oxygen Flow Rate Fraction of Inspired Oxygen 09/01/24 09:12 09/01/24 09:20 Temperature Pulse Rate 70 Respiratory Rate 20 Blood Pressure Pulse Oximetry 90 Oxygen Delivery High Flow Therapy with Na Oxygen Flow Rate 8 Fraction of Inspired Oxygen Intake/Output Intake/Output: Intake & Output 08/29/24 08/30/24 08/31/24 09/01/24 23:59 23:59 23:59 23:59 Intake Total 1460 1380 2990 480 Output Total 1800 1300 1000 100 Balance -346 14 6058 380 Meds/Results Medications: Active Medications Generic Name Dose Route Start Last Admin Trade Name Freq PRN Reason Stop Dose Admin Albuterol 2.5 mg 08/28/24 09:33 Albuterol Sulfate Neb 2.5 Mg/3 Ml Inh INHALATION Q4HRT PRN Shortness Of Breath Albuterol/Ipratropium 3 ml 08/29/24 14:00 09/01/24 09:09 Ipratropium 0.5 Mg/Albuterol Sulfate 2.5 Mg Ampul.Neb 3 Ml INHALATION 3 ml Q6HRT COCO Administration Alprazolam 0.5 mg 08/28/24 05:23 Alprazolam (*Crx) 0.5 Mg Tablet PO QID PRN Anxiety Aspirin 81 mg 08/28/24 09:00 09/01/24 08:53 Aspirin 81 Mg Enteric Tablet PO 81 mg DAILY COCO Administration Azithromycin 500 mg 08/30/24 21:00 08/31/24 20:22 Azithromycin 250 Mg Tablet PO 09/01/24 21:01 500 mg QHS COCO Administration Dextrose 12.5 gm 08/28/24 12:12 08/31/24 01:43 Dextrose 50% 25 Gm/50 Ml Syringe IV PUSH 12.5 gm PRN PRN Administration Hypoglycemia Protocol Enoxaparin Sodium 60 mg 08/31/24 15:00 09/01/24 08:53 Enoxaparin 60 Mg/0.6 Ml Syringe SUB-Q 60 mg QAM COCO Administration Escitalopram Oxalate 20 mg 08/28/24 09:00 09/01/24 08:51 Escitalopram Oxalate 10 Mg Tablet PO 20 mg DAILY COCO Administration Furosemide 40 mg 08/28/24 09:00 09/01/24 08:52 Furosemide 40 Mg Tablet PO 40 mg BID COCO Administration Glucagon 1 mg 08/28/24 12:12 Glucagon For Inj 1 Mg Vial IM PRN PRN Hypoglycemia Protocol Glucose 15 gm 08/28/24 12:12 Glucose Oral Gel 15 Gm Of Glucse In 37.5 Gm Tube PO PRN PRN Hypoglycemia Protocol Guaifenesin 1,200 mg 08/28/24 21:00 09/01/24 08:52 Guaifenesin 12 Hr 600 Mg Tabcr PO 1,200 mg Q12HR COCO Administration Dextrose 1,000 mls @ 100 mls/hr 08/28/24 12:12 Dextrose 5% 1,000 Ml IVPB PRN PRN Hypoglycemia Protocol Insulin Aspart 4 - 8 units 08/29/24 08:00 09/01/24 08:53 Insulin Aspart (*Bkc) 100 Units/Ml SUB-Q Not Given TIDWM COCO Protocol Insulin Aspart 2 - 4 units 08/28/24 21:00 08/31/24 20:24 Insulin Aspart (*Bkc) 100 Units/Ml SUB-Q 2 units HS [facility] Administration Protocol Insulin Aspart 6 units 08/30/24 08:00 09/01/24 08:54 Insulin Aspart (*Bkc) 100 Units/Ml 0.1 units/kg (6 units) Not Given SUB-Q TIDWM COCO Insulin Glargine 20 units 08/29/24 21:00 08/31/24 20:25 Insulin Glargine (*Bkc) 100 Units/Ml SUB-Q 20 units HS [facility] Administration Levothyroxine Sodium 112 mcg 08/28/24 06:30 09/01/24 06:23 Levothyroxine Sodium 112 Mcg Tablet PO 112 mcg DAILY@0630 [facility] Administration Levothyroxine Sodium 25 mcg 08/28/24 06:30 09/01/24 06:23 Levothyroxine Sodium 25 Mcg Tablet PO 25 mcg DAILY@0630 [facility] Administration Losartan Potassium 100 mg 08/28/24 09:00 09/01/24 08:52 Losartan Potassium 50 Mg Tablet PO 100 mg DAILY [facility]O Administration Lovastatin 20 mg 08/28/24 21:00 08/31/24 21:00 Lovastatin 20 Mg Tablet PO 20 mg HS [facility] Administration Metoprolol Tartrate 25 mg 08/28/24 09:00 09/01/24 09:10 Metoprolol Tartrate 25 Mg Tablet PO Not Given Q12HR [facility] Montelukast Sodium 10 mg 08/28/24 18:00 08/31/24 17:34 Montelukast Sodium 10 Mg Tablet PO 10 mg QPM [facility]O Administration Home Med (Ramelteon 8 mg 08/28/24 22:04 08/30/24 20:49 8 Mg Tablet) PO 09/27/24 22:03 8 mg HS PRN Administration Sleep Pantoprazole Sodium 40 mg 08/28/24 09:00 09/01/24 08:51 Pantoprazole 40 Mg Tablet PO 40 mg BID COCO Administration Perflutren Lipid Microsphere 0 ml 08/31/24 07:08 Perflutren Lipid Microspheres 1.5 Ml Vial Diluted To 10 Ml Total Volume IV PUSH 09/03/24 07:08 ONCE PRN adequate visualization Protocol Prednisone 40 mg 08/29/24 10:55 09/01/24 08:52 Prednisone 20 Mg Tablet PO 40 mg DAILY@0800 COCO Administration Radiology Results: ITS Impressions Chest X-Ray 08/28/24 05:53 Impression: Clear lungs. Possible COPD. Chest CTA 08/28/24 17:14 IMPRESSION: Suboptimal evaluation of the bilateral lower lobe segmental and subsegmental pulmonary arteries. No CT evidence of acute pulmonary embolus in the adequately visualized vessels. Bilateral hilar lymphadenopathy Venous Doppler Study 08/29/24 18:40 IMPRESSION: 1. No deep venous thrombosis in either lower limb. Labs Labs: Laboratory Results - last 24 hr 08/31/24 08/31/24 08/31/24 11:34 16:29 19:53 WBC RBC Hgb Hct MCV MCH MCHC RDW Plt Count MPV Puncture Site ABG pH ABG pCO2 ABG pO2 ABG PO2/FiO2 Ratio ABG HCO3 ABG O2 Saturation ABG O2 Content ABG Base Excess A-a Gradient Oxyhemoglobin Total Hemoglobin O2 Delivery Device O2 Liters/Min FiO2 Sodium Potassium Chloride Carbon Dioxide Anion Gap BUN Creatinine Estim Creat Clear Calc Estimated GFR Glucose POC Capillary Glucose 161 H 230 H 297 H Calcium 09/01/24 09/01/24 09/01/24 04:24 06:31 08:03 WBC 12.2 H RBC 4.62 Hgb 12.4 Hct 43.1 MCV 93.3 MCH 26.8 MCHC 28.8 L RDW 15.4 H Plt Count 293 MPV 10.8 H Puncture Site Right radial ABG pH 7.413 ABG pCO2 52.5 H ABG pO2 61.1 L ABG PO2/FiO2 Ratio 1.70 ABG HCO3 32.8 H ABG O2 Saturation 91.3 L ABG O2 Content 15.6 L ABG Base Excess 6.9 A-a Gradient 134.7 Oxyhemoglobin 91.0 Total Hemoglobin 12.2 O2 Delivery Device Bipap O2 Liters/Min Not Reportable FiO2 36 Sodium 141 Potassium 4.1 Chloride 98 Carbon Dioxide 37 H Anion Gap 6 BUN 55 H D Creatinine 1.43 H Estim Creat Clear Calc 20 Estimated GFR 35 L Glucose 74 POC Capillary Glucose 71 Calcium 9.3
--- NOTE | 2024-09-01 10:08 | PCRCNOTE ---
Scanned med on the wrong day. Duoneb was given on 09/01/24 at 0900, not 08/31/24.Went to edit and medication was discontinued by Dr Bustamante.. Undo was completed and med was entered under correct date and time.
[2024-09-01] MEDS: UMECLIDINIUM BROMIDE 62.5 MCG ELLIPTA 1 PUFF INHALATION (10:54)
[2024-09-01] MEDS: FLUTICASONE/SALMETEROL 230-21 MCG INHALER 1 PUFF INHALATION (10:55)
--- NOTE | 2024-09-01 12:01 | PCCDE ---
Addendum entered by Pippa Sorto RD, LDN, CDE 09/01/24 12:08: POC 08/31/24: 54 (01:08)-60-198-52 (07:54); 70-135-161- 230-297 09/01: 71 Original Note: 09/01/24 I confirmed with Myrna MORALES, last steroid dose this am. already gave her verbal order to reduce Lantus to 15 U (from 20). With patient?s recent hypoglycemia and DC of steroid, suggest reduction in mealtime bolus as well. CONSIDERATIONS: I spoke with Dr. Deleon (~11:45 am), adequate po intake to be confirmed. - If yes: then reduce Novolog to 3 U TIDwm - If no: then continue sliding scale Consider reducing to moderate insulin correction scale. Continue to monitor glucose and med changes for future insulin titration needs and reassessment.
--- NOTE | 2024-09-01 12:57 | P.PNIM_ITS ---
Progress Note: A&P Assessment and Plan (1) Diastolic congestive heart failure: Code(s): I50.30 - Unspecified diastolic (congestive) heart failure Status: Acute (2) Insulin dependent diabetes mellitus: Status: Acute (3) COPD exacerbation: Code(s): J44.1 - Chronic obstructive pulmonary disease with (acute) exacerbation Status: Acute (4) Acute and chronic respiratory failure with hypoxia: Code(s): J96.21 - Acute and chronic respiratory failure with hypoxia Status: Acute Plan 83-year-old female with a past medical history formal tobacco abuse, hypothyroidism, hyperlipidemia, insulin dependent diabetes mellitus, hypertension, CAD, CKD, COPD, chronic respiratory failure with continuous home O2 use. She presents a [facility] ER on 08/28/2024 as she was found to be hypoxic and tachypneic with shortness of breath and wheezing. She lives with her family member. Patient was placed on 10 L non-rebreather, given 2 g IV magnesium, epinephrine, 125 mg IV Solu-Medrol, 3 DuoNebs treatments and brought to the ER. At that time she was saturating 54% on non-rebreather. She was placed on BiPAP and had symptomatic relief. On the BiPAP with 100% FiO2 her pH was 7.347, pCO2 50.9, PO2 139, bicarb 27.3. She was also given a continuous DuoNeb treatment, azithromycin and ceftriaxone. Her WBC count 22.9, BUN 43, serum creatinine 1.40, quad viral screen negative, BNP 50638, troponin 0.031. Chest x-ray did not demonstrate any acute findings. The patient reiterated her DNR status. She otherwise denied fever, cough worse than her usual, sputum production, chest pain. Acute on chronic hypoxic respiratory failure with hypoxemia and hypercapnia COPD exacerbation Community-acquired pneumonia * BAG abnormal. pulmonary team on board and adjusting BIPAP. plan to keep patient overnight and evaluate her needs for BIPAP.. on DuoNebs q.4 hours, methylprednisolone 20 mg IV Q 6 Quad viral screen negative. X-ray showed increased interstitial patchy infiltrate bilateral lower lobes. Patient has leukocytosis, suspecting acute bacterial bronchitis and pneumonia will continue prednisone. Continue Iv Abx Rocephin and azithromycin. plan to do overnight Oximetry. pulm team on board Condition improving, changed to oral prednisone today 08/29--> completed 09/01 Diastolic heart failure compensated Possible decompensated due to COPD exacerbation, Echocardiogram showed EF 65%, grade 1 diastolic dysfunction. here is a stable echo dense mass in the right atrium suggestive of calcified structure versus stable thrombus. Recommend outpatient advance cardiac imaging such as CT or MRI. 3. Agitated saline study is positive for [id number] shunting suggestive of a large size PFO. plan to transfer to [facility] for further managemnet (R&L Cath) Continue to monitor closely. Continue home medications metoprolol, Lasix 40 mg p.o. b.i.d. -daily weights, strict intake/output, heart healthy diet CKD stage IIIB Cr 1.43 Elevated BUN creatinine ratio Slightly above baseline CAD: Denies chest pain Resume DRIER TAKE OFF TENDER aspirin, lovastatin GERD Continue Protonix 40 mg daily p.o. Hypertension: Resume DRIER TAKE OFF TENDER metoprolol, losartan, Lasix Insulin-dependent diabetes mellitus: had hypoglycemia Lantus 15 units q.h.s., sliding scale with Accu-Cheks a.c. HS hypothyroidism, levothyroxin hyperlipidemia statin DNR. Patient lives with family member. . Subjective Date/time seen: 09/01/24 12:57 Interval history: per HPI 83-year-old female with a past medical history formal tobacco abuse, hypothyroidism, hyperlipidemia, insulin dependent diabetes mellitus, hypertension, CAD, CKD, COPD, chronic respiratory failure with continuous home O2 use. She presents a [facility] ER on 08/28/2024 as she was found to be hypoxic and tachypneic with shortness of breath and wheezing. She lives with her family member. Patient was placed on 10 L non-rebreather, given 2 g IV magnesium, epinephrine, 125 mg IV Solu-Medrol, 3 DuoNebs treatments and brought to the ER. At that time she was saturating 54% on non-rebreather. She was plac ed on BiPAP and had symptomatic relief. On the BiPAP with 100% FiO2 her pH was 7.347, pCO2 50.9, PO2 139, bicarb 27.3. She was also given a continuous DuoNeb treatment, azithromycin and ceftriaxone. Her WBC count 22.9, BUN 43, serum creatinine 1.40, quad viral screen negative, BNP 59473, troponin 0.031. Chest x-ray did not demonstrate any acute findings. The patient reiterated her DNR status. She otherwise denied fever, cough worse than her usual, sputum production, chest pain. 08/30/24 patient was seen and examined at bedside. Patient off BiPAP now, patient is on high-flow oxygen via nasal cannular on 10 L o2 Patient feels better Denies chest pain abdomen pain nausea vomiting diarrhea pulmonary team on board. will continue prednisone. Continue Iv Abx Rocephin and azithromycin. plan to do overnight Oximetry. 08/31/24 Patient was seen and examined at bedside. she is feeling better. her breathing improving and is back to baseline 8 lit. BAG abnormal. pulmonary team on board and adjusting BIPAP. plan to keep patient overnight and evaluate her needs for BIPAP. 09/01/24 Patient was seen and examined at bedside. she is feeling better. her breathing is better. denies any chest pain, SOB, abd pine, N?V Cardiology and pulmonary team on board. reviewed echo. plan to transfer for further work up regarding PFO found on ECHO> has hypoglycemia decreased Lantus to 15 and lispro to 3 units. Exam Narrative: GENERAL: Pleasant, in no acute distress. Well-nourished. - EYES: EOMI. Anicteric. - HENT: Moist mucous membranes. - LUNGS: Coarse breath sound bilaterall y - CARDIOVASCULAR: Regular rate and rhyth m. No murmur. No JVD. - ABDOMEN: Soft, non-tender and non-dist ended. No palpable masses. - EXTREMITIES: No edema. Peripheral puls es 2+. Non-tender. - NEUROLOGIC: No focal neurological defi cits. CN II-XII grossly intact. - PSYCHIATRIC: Awake, Alert and oriented x 3. Appropriate mood and affect. - SKIN: No rashes or lesions. Warm. - LYMPH: No cervical lymphadenopathy. Objective Data Vital Signs Vital Signs: Vital Signs - 24 hr 08/31/24 13:11 08/31/24 13:20 08/31/24 14:07 Temperature Pulse Rate 56 L 60 Respiratory Rate 18 18 Blood Pressure Pulse Oximetry Oxygen Delivery High Flow Therapy with Na Oxygen Flow Rate 8 Fraction of Inspired Oxygen 08/31/24 16:00 08/31/24 16:00 08/31/24 20:00 Temperature 97.8 F Pulse Rate 57 L 62 60 Respiratory Rate 22 H Blood Pressure 129/51 L Pulse Oximetry 98 Oxygen Delivery Oxygen Flow Rate Fraction of Inspired Oxygen 08/31/24 20:00 08/31/24 20:23 08/31/24 21:04 Temperature Pulse Rate 40 L 56 L 48 L Respiratory Rate 21 H 20 Blood Pressure Pulse Oximetry 99 Oxygen Delivery High Flow Nasal Cannula Oxygen Flow Rate 10 Fraction of Inspired Oxygen 08/31/24 21:06 08/31/24 21:18 08/31/24 22:00 Temperature Pulse Rate 49 L 40 L Respiratory Rate 21 H Blood Pressure Pulse Oximetry 100 99 Oxygen Delivery High Flow Nasal Cannula BiPAP Oxygen Flow Rate 8 Fraction of Inspired Oxygen 48 09/01/24 00:00 09/01/24 00:00 09/01/24 00:00 Temperature Pulse Rate 46 L 41 L 40 L Respiratory Rate 18 Blood Pressure Pulse Oximetry 91 Oxygen Delivery BiPAP Oxygen Flow Rate Fraction of Inspired Oxygen 36 09/01/24 02:00 09/01/24 04:00 09/01/24 04:00 Temperature Pulse Rate 40 L 48 L 59 L Respiratory Rate 18 Blood Pressure Pulse Oximetry 91 Oxygen Delivery BiPAP Oxygen Flow Rate Fraction of Inspired Oxygen 36 09/01/24 04:41 09/01/24 04:43 09/01/24 08:00 Temperature 97.5 F L Pulse Rate 85 60 Respiratory Rate 18 26 H Blood Pressure 135/68 Pulse Oximetry 98 98 92 Oxygen Delivery BiPAP High Flow Nasal Cannula Oxygen Flow Rate 8 Fraction of Inspired Oxygen 48 09/01/24 08:00 09/01/24 08:00 09/01/24 09:02 Temperature Pulse Rate 49 L 61 69 Respiratory Rate 18 20 Blood Pressure Pulse Oximetry 97 Oxygen Delivery High Flow Nasal Cannula Oxygen Flow Rate 8 Fraction of Inspired Oxygen 09/01/24 09:10 09/01/24 09:12 09/01/24 09:20 Temperature Pulse Rate 65 70 Respiratory Rate 20 Blood Pressure Pulse Oximetry 90 Oxygen Delivery High Flow Therapy with Na Oxygen Flow Rate 8 Fraction of Inspired Oxygen 09/01/24 10:00 09/01/24 10:40 09/01/24 10:55 Temperature Pulse Rate 48 L 59 L Respiratory Rate 20 Blood Pressure Pulse Oximetry Oxygen Delivery High Flow Therapy with Na Oxygen Flow Rate 8 Fraction of Inspired Oxygen 09/01/24 11:43 09/01/24 12:00 Temperature Pulse Rate 42 L 56 L Respiratory Rate 18 Blood Pressure Pulse Oximetry 92 Oxygen Delivery High Flow Nasal Cannula Oxygen Flow Rate 8 Fraction of Inspired Oxygen Intake/Output Intake/Output: Intake & Output 08/29/24 08/30/24 08/31/24 09/01/24 23:59 23:59 23:59 23:59 Intake Total 1460 1380 2990 480 Output Total 1800 1300 1000 100 Balance -736 75 5970 380 Meds/Results Medications: Active Medications Generic Name Dose Route Start Last Admin Trade Name Freq PRN Reason Stop Dose Admin Albuterol 2.5 mg 08/28/24 09:33 Albuterol Sulfate Neb 2.5 Mg/3 Ml Inh INHALATION Q4HRT PRN Shortness Of Breath Alprazolam 0.5 mg 08/28/24 05:23 Alprazolam (*Crx) 0.5 Mg Tablet PO QID PRN Anxiety Aspirin 81 mg 08/28/24 09:00 09/01/24 08:53 Aspirin 81 Mg Enteric Tablet PO 81 mg DAILY COCO Administration Azithromycin 500 mg 08/30/24 21:00 08/31/24 20:22 Azithromycin 250 Mg Tablet PO 09/01/24 21:01 500 mg QHS COCO Administration Dextrose 12.5 gm 08/28/24 12:12 08/31/24 01:43 Dextrose 50% 25 Gm/50 Ml Syringe IV PUSH 12.5 gm PRN PRN Administration Hypoglycemia Protocol Enoxaparin Sodium 60 mg 08/31/24 15:00 09/01/24 08:53 Enoxaparin 60 Mg/0.6 Ml Syringe SUB-Q 60 mg QAM COCO Administration Escitalopram Oxalate 20 mg 08/28/24 09:00 09/01/24 08:51 Escitalopram Oxalate 10 Mg Tablet PO 20 mg DAILY COCO Administration Furosemide 40 mg 08/28/24 09:00 09/01/24 08:52 Furosemide 40 Mg Tablet PO 40 mg BID COCO Administration Glucagon 1 mg 08/28/24 12:12 Glucagon For Inj 1 Mg Vial IM PRN PRN Hypoglycemia Protocol Glucose 15 gm 08/28/24 12:12 Glucose Oral Gel 15 Gm Of Glucse In 37.5 Gm Tube PO PRN PRN Hypoglycemia Protocol Guaifenesin 1,200 mg 08/28/24 21:00 09/01/24 08:52 Guaifenesin 12 Hr 600 Mg Tabcr PO 1,200 mg Q12HR COCO Administration Dextrose 1,000 mls @ 100 mls/hr 08/28/24 12:12 Dextrose 5% 1,000 Ml IVPB PRN PRN Hypoglycemia Protocol Insulin Aspart 4 - 8 units 08/29/24 08:00 09/01/24 12:33 Insulin Aspart (*Bkc) 100 Units/Ml SUB-Q Not Given TIDWM [facility] Protocol Insulin Aspart 2 - 4 units 08/28/24 21:00 08/31/24 20:24 Insulin Aspart (*Bkc) 100 Units/Ml SUB-Q 2 units HS COCO Administration Protocol Insulin Aspart 6 units 08/30/24 08:00 09/01/24 12:33 Insulin Aspart (*Bkc) 100 Units/Ml 0.1 units/kg (6 units) Not Given SUB-Q TIDWM COCO Insulin Glargine 15 units 09/01/24 21:00 Insulin Glargine (*Bkc) 100 Units/Ml SUB-Q HS COCO Levothyroxine Sodium 112 mcg 08/28/24 06:30 09/01/24 06:23 Levothyroxine Sodium 112 Mcg Tablet PO 112 mcg DAILY@0630 COCO Administration Levothyroxine Sodium 25 mcg 08/28/24 06:30 09/01/24 06:23 Levothyroxine Sodium 25 Mcg Tablet PO 25 mcg DAILY@0630 COCO Administration Losartan Potassium 100 mg 08/28/24 09:00 09/01/24 08:52 Losartan Potassium 50 Mg Tablet PO 100 mg DAILY COCO Administration Lovastatin 20 mg 08/28/24 21:00 08/31/24 21:00 Lovastatin 20 Mg Tablet PO 20 mg HS COCO Administration Metoprolol Tartrate 25 mg 08/28/24 09:00 09/01/24 09:10 Metoprolol Tartrate 25 Mg Tablet PO Not Given Q12HR COCO Montelukast Sodium 10 mg 08/28/24 18:00 08/31/24 17:34 Montelukast Sodium 10 Mg Tablet PO 10 mg QPM COCO Administration Home Med (Ramelteon 8 mg 08/28/24 22:04 08/30/24 20:49 8 Mg Tablet) PO 09/27/24 22:03 8 mg HS PRN Administration Sleep Pantoprazole Sodium 40 mg 08/28/24 09:00 09/01/24 08:51 Pantoprazole 40 Mg Tablet PO 40 mg BID COCO Administration Perflutren Lipid Microsphere 0 ml 08/31/24 07:08 Perflutren Lipid Microspheres 1.5 Ml Vial Diluted To 10 Ml Total Volume IV PUSH 09/03/24 07:08 ONCE PRN adequate visualization Protocol Fluticasone/Salmeterol 1 puff 09/01/24 10:00 09/01/24 10:55 Fluticasone/Salmeterol 230-21 Mcg Inhaler 1 Puff INHALATION 1 puff Q12HRT COCO Administration Umeclidinium [place] 1 puff 09/01/24 09:55 09/01/24 10:54 Umeclidinium [place] 62.5 Mcg Ellipta INHALATION 1 puff DAILYRT COCO Administration Radiology Results: ITS Impressions Chest X-Ray 08/28/24 05:53 Impression: Clear lungs. Possible COPD. Chest CTA 08/28/24 17:14 IMPRESSION: Suboptimal evaluation of the bilateral lower lobe segmental and subsegmental pulmonary arteries. No CT evidence of acute pulmonary embolus in the adequately visualized vessels. Bilateral hilar lymphadenopathy Venous Doppler Study 08/29/24 18:40 IMPRESSION: 1. No deep venous thrombosis in either lower limb. Labs Labs: Laboratory Results - last 24 hr 08/31/24 08/31/24 09/01/24 16:29 19:53 04:24 WBC RBC Hgb Hct MCV MCH MCHC RDW Plt Count MPV Puncture Site Right radial ABG pH 7.413 ABG pCO2 52.5 H ABG pO2 61.1 L ABG PO2/FiO2 Ratio 1.70 ABG HCO3 32.8 H ABG O2 Saturation 91.3 L ABG O2 Content 15.6 L ABG Base Excess 6.9 A-a Gradient 134.7 Oxyhemoglobin 91.0 Total Hemoglobin 12.2 O2 Delivery Device Bipap O2 Liters/Min Not Reportable FiO2 36 Expiratory Pressure 4 Inspiratory Pressure 18 Sodium Potassium Chloride Carbon Dioxide Anion Gap BUN Creatinine Estim Creat Clear Calc Estimated GFR Glucose POC Capillary Glucose 230 H 297 H Calcium 09/01/24 09/01/24 09/01/24 06:31 08:03 12:13 WBC 12.2 H RBC 4.62 Hgb 12.4 Hct 43.1 MCV 93.3 MCH 26.8 MCHC 28.8 L RDW 15.4 H Plt Count 293 MPV 10.8 H Puncture Site ABG pH ABG pCO2 ABG pO2 ABG PO2/FiO2 Ratio ABG HCO3 ABG O2 Saturation ABG O2 Content ABG Base Excess A-a Gradient Oxyhemoglobin Total Hemoglobin O2 Delivery Device O2 Liters/Min FiO2 Expiratory Pressure Inspiratory Pressure Sodium 141 Potassium 4.1 Chloride 98 Carbon Dioxide 37 H Anion Gap 6 BUN 55 H D Creatinine 1.43 H Estim Creat Clear Calc 20 Estimated GFR 35 L Glucose 74 POC Capillary Glucose 71 136 H Calcium 9.3
--- NOTE | 2024-09-01 18:07 | PC.NURSE ---
Patient being transferred to [facility]. Report given to ANDREW Coronel. Patient going to room 309, Cardiac step down.
--- NOTE | 2024-09-01 18:13 | PM.PNCARD ---
Progress Note: A&P Assessment and Plan (1) SOB (shortness of breath) on exertion: Code(s): R06.02 - Shortness of breath Status: Inactive (2) Coronary artery disease: Code(s): I25.10 - Atherosclerotic heart disease of chilkoot coronary artery without angina pectoris Status: Acute (3) HTN (hypertension): Code(s): I10 - Essential (primary) hypertension Status: Resolved (4) HLD (hyperlipidemia): Code(s): E78.5 - Hyperlipidemia, unspecified Status: Inactive (5) Diastolic dysfunction: Code(s): I51.89 - Other ill-defined heart diseases Status: Acute (6) PFO (patent foramen ovale): Code(s): Q21.12 - Patent foramen ovale Status: Acute Plan (3) PFO (patent foramen ovale): Code(s): Q21.12 - Patent foramen ovale Status: Acute Assessment and Plan: 08/31/24: Later in the day Patient had an echo with a bubble. LVEF 60 is 65%. Left atrium mildly dilated, right ventricle dilated with normal function. Right atrium with a mass suggestive of a calcified structure versus a thrombus. Right to left shunt suggestive of a large size PFO. RVSP 56. 09/01/24: Through the bedside nurse: [facility] head refrigerating engineer, Dr. Gomez, has spoken to her head refrigerating engineer at [facility], Dr. Cazares. Dr. Cazares has request inpatient transfer to [facility] [place] in anticipation of right and left heart catheterization on 09/04 or 09/05 to assess possible PFO closer. . I arranged transfer to [place], [place] as requested by Dr. Richter. 08/28/24: Patient required BiPAP in the emergency for room for hypoxemic respiratory failure and work of breathing. ABG on BiPAP 12, pressures 14/8 and 100% was 7.35/51/139. Currently the patient is on 12 L nasal cannula saturations 92%. Plan: Goal saturation 90-94%. Patient can wear her BiPAP with the above settings on a p.r.n. basis during the day and night. Once the patient is improved and close to her baseline will repeat ABG after off being off BiPAP for 24 hours to reassess for chronic hypercarbic respiratory failure. 08/29/24: Patient did not require BiPAP last night. Currently she is on 10 L nasal cannula with saturations 93%. She required 12 L to get out of bed and had little stamina when she was sitting up. Plan: Goal saturation 90-94%. Tonight I will perform overnight oximetry on 10 L nasal cannula. I will repeat ABG tomorrow morning at 8:30 a.m. off of BiPAP for 48 hours to assess for chronic hypercarbic respiratory failure. 08/30/2024: ABG on 10 L nasal cannula 7.56/69. Patient an overnight oximetry on 10 L with recording duration of 5 hours and 50 minutes. Average saturation 99%. Low saturation 92%. Time with saturation less than or equal to 88% was 0 minutes. Oxygen desaturation index 0.9. ABG on 10 L nasal cannula 7.69. Plan: I will place the patient on BiPAP And adjusted the settings to comfort resulting in a rate of 4, pressures 12/4, inspiratory time 1.0, rise of 5 and 44% FiO2. Will check an overnight oximetry and an ABG prior to removal in the morning. 08/31/24: Patient wore the hospital BiPAP with full face mask and said she slept well. Patient had an overnight oximetry on the above settings with recording duration of 6 hours and 38 minutes, average saturation 98%, low saturation 74%, time with saturation less than or equal to 88% was 3 minutes, oxygen desaturation index 0.6. Patient had an ABG prior to removal with a pH of 7.38/60/83. Plan: BiPAP rate of 4 pressures 12/4 provide inadequate ventilation. At the bedside I have placed the patient on BiPAP and she can tolerate pressures 18/4. Will decrease her FiO2 to 36% tonight and perform overnight oximetry and ABG in the morning on these settings. Will order echo with bubble. Later in the day Patient had an echo with a bubble. LVEF 60 is 65%. Left atrium mildly dilated, right ventricle dilated with normal function. Right atrium with a mass suggestive of a calcified structure versus a thrombus. Right to left shunt suggestive of a large size PFO. 09/01/2024: Patient wore the hospital fullface mask with BiPAP rate of 4, pressures 18/4 and 36% FiO2. Overnight oximetry on these settings with a recording duration of 8 hours and 7 minutes, average saturation 94%. Low saturation 72%. Time with saturation less than or equal to 88 was 21 minutes, oxygen desaturation index 3.8. ABG prior to removal was 7.41/52.5/61. Plan: Patient said she was able to sleep with these settings and had no issues with the mask or machine. Current BiPAP rate of 4, pressures 18/4 and 36% FiO2 provide adequate ventilation but inadequate oxygenation. Will initiate process for home noninvasive ventilation with BiPAP no rate, pressures 18/4 and 6 L bleed in. Will discuss with DME company and insurance regarding additional requirements to qualify her for home BiPAP. See above regarding PFO. Time Spent With Patient Time: More 90 minutes were spend in this patient management including but not limited to the pt's record review and transfer arrangement to the [facility] for futher evaluation of PFO and possible closer. Subjective Date/time seen: 09/01/24 18:13 seen in cardiology fu. pertinent info was reviewed. [facility] Interval history: per HPI 83-year-old female with a past medical history formal tobacco abuse, hypothyroidism, hyperlipidemia, insulin dependent diabetes mellitus, hypertension, CAD, CKD, COPD, chronic respiratory failure with continuous home O2 use. She presents a [facility] ER on 08/28/2024 as she was found to be hypoxic and tachypneic with shortness of breath and wheezing. She lives with her family member. Patient was placed on 10 L non-rebreather, given 2 g IV magnesium, epinephrine, 125 mg IV Solu-Medrol, 3 DuoNebs treatments and brought to the ER. At that time she was saturating 54% on non-rebreather. She was placed on BiPAP and had symptomatic relief. On the BiPAP with 100% FiO2 her pH was 7.347, pCO2 50.9, PO2 139, bicarb 27.3. She was also given a continuous DuoNeb treatment, azithromycin and ceftriaxone. Her WBC count 22.9, BUN 43, serum creatinine 1.40, quad viral screen negative, BNP 21671, troponin 0.031. Chest x-ray did not demonstrate any acute findings. The patient reiterated her DNR status. She otherwise denied fever, cough worse than her usual, sputum production, chest pain. 08/30/24 patient was seen and examined at bedside. Patient off BiPAP now, patient is on high-flow oxygen via nasal cannular on 10 L o2 Patient feels better Denies chest pain abdomen pain nausea vomiting diarrhea pulmonary team on board. will continue prednisone. Continue Iv Abx Rocephin and azithromycin. plan to do overnight Oximetry. 08/31/24 Patient was seen and examined at bedside. she is feeling better. her breathing improving and is back to baseline 8 lit. BAG abnormal. pulmonary team on board and adjusting BIPAP. plan to keep patient overnight and evaluate her needs for BIPAP. 09/01/24 Patient was seen and examined at bedside. she is feeling better. her breathing is better. denies any chest pain, SOB, abd pine, N?V Cardiology and pulmonary team on board. reviewed echo. plan to transfer for further work up regarding PFO found on ECHO> has hypoglycemia decreased Lantus to 15 and lispro to 3 units. Review of Systems Constitutional: Constitutional: Reports fatigue and Reports weakness Cardiovascular: Cardiovascular: Reports as per HPI, Denies chest pain, Reports dyspnea and Reports dyspnea on exertion Comments: SOB and skipped beats Respiratory: Respiratory: Reports dyspnea and Reports dyspnea on exertion Gastrointestinal: Gastrointestinal: Reports as per HPI and Denies abdominal pain Musculoskeletal: Musculoskeletal: Reports arthralgias and Reports stiffness Neurologic: Reports system reviewed and no additional complaints, except as documented (generalized fatigue) Psychiatric: Psychiatric: Reports anxiety Endocrine: Endocrine: Reports fatigue Hematologic/Lymphatic: Hematologic/Lymphatic: Reports no additional hematologic/lymphatic complaints Allergic/Immunologic: Allergic/Immunologic: Reports no additional allergic/immunologic complaints Exam Narrative: GENERAL: Pleasant, in no acute distress. Well-nourished. - EYES: EOMI. Anicteric. - HENT: Moist mucous membranes. - LUNGS: Coarse breath sound bilaterally - CARDIOVASCULAR: Regular rate and rhythm. mild systolic and diastolic murmur. No JVD. - ABDOMEN: Soft, non-tender and non-distended. No palpable masses. - EXTREMITIES: No edema. Peripheral pulses 2+. Non-tender. - NEUROLOGIC: No focal neurological deficits. CN II-XII grossly intact. - PSYCHIATRIC: Awake, Alert and oriented x 3. Appropriate mood and affect. - SKIN: No rashes or lesions. Warm. - LYMPH: No cervical lymphadenopathy. Const: General: cooperative, healthy appearing and comfortable Orientation/consciousness: oriented to person, oriented to place and oriented to time Resp: Auscultation: no crackles, no rales, no rhonchi, no wheezes and diminished lung sounds Cardio: Rate: regular rate Rhythm: regular rhythm Heart sounds: no murmurs Neuro: General: oriented to person, oriented to place and oriented to time Extrem: Right lower extremity: no edema Left lower extremity: no edema Objective Data Vital Signs Vital Signs: Vital Signs - 24 hr 08/31/24 20:00 08/31/24 20:00 08/31/24 20:23 Temperature Pulse Rate 60 40 L 56 L Respiratory Rate 21 H Blood Pressure Pulse Oximetry 99 Oxygen Delivery High Flow Nasal Cannula Oxygen Flow Rate 10 Fraction of Inspired Oxygen 08/31/24 21:04 08/31/24 21:06 08/31/24 21:18 Temperature Pulse Rate 48 L 49 L Respiratory Rate 20 21 H Blood Pressure Pulse Oximetry 100 99 Oxygen Delivery High Flow Nasal Cannula BiPAP Oxygen Flow Rate 8 Fraction of Inspired Oxygen 48 08/31/24 22:00 09/01/24 00:00 09/01/24 00:00 Temperature Pulse Rate 40 L 46 L 41 L Respiratory Rate Blood Pressure Pulse Oximetry Oxygen Delivery Oxygen Flow Rate Fraction of Inspired Oxygen 09/01/24 00:00 09/01/24 02:00 09/01/24 04:00 Temperature Pulse Rate 40 L 40 L 48 L Respiratory Rate 18 18 Blood Pressure Pulse Oximetry 91 91 Oxygen Delivery BiPAP BiPAP Oxygen Flow Rate Fraction of Inspired Oxygen 36 36 09/01/24 04:00 09/01/24 04:41 09/01/24 04:43 Temperature Pulse Rate 59 L 85 Respiratory Rate 18 Blood Pressure Pulse Oximetry 98 98 Oxygen Delivery BiPAP High Flow Nasal Cannula Oxygen Flow Rate 8 Fraction of Inspired Oxygen 48 09/01/24 08:00 09/01/24 08:00 09/01/24 08:00 Temperature 36.4 C L Pulse Rate 60 49 L 61 Respiratory Rate 26 H 18 Blood Pressure 135/68 Pulse Oximetry 92 97 Oxygen Delivery High Flow Nasal Cannula Oxygen Flow Rate 8 Fraction of Inspired Oxygen 09/01/24 09:02 09/01/24 09:10 09/01/24 09:12 Temperature Pulse Rate 69 65 70 Respiratory Rate 20 20 Blood Pressure Pulse Oximetry Oxygen Delivery Oxygen Flow Rate Fraction of Inspired Oxygen 09/01/24 09:20 09/01/24 10:00 09/01/24 10:40 Temperature Pulse Rate 48 L Respiratory Rate Blood Pressure Pulse Oximetry 90 Oxygen Delivery High Flow Therapy with Na High Flow Therapy with Na Oxygen Flow Rate 8 8 Fraction of Inspired Oxygen 09/01/24 10:55 09/01/24 11:43 09/01/24 12:00 Temperature Pulse Rate 59 L 42 L 56 L Respiratory Rate 20 18 Blood Pressure Pulse Oximetry 92 Oxygen Delivery High Flow Nasal Cannula Oxygen Flow Rate 8 Fraction of Inspired Oxygen 09/01/24 12:00 09/01/24 12:03 09/01/24 13:46 Temperature 36.4 C L Pulse Rate 63 59 L 60 Respiratory Rate 24 H Blood Pressure 115/44 L Pulse Oximetry 99 Oxygen Delivery Oxygen Flow Rate Fraction of Inspired Oxygen 09/01/24 16:00 09/01/24 16:00 09/01/24 16:00 Temperature 36.6 C Pulse Rate 60 56 L 62 Respiratory Rate 24 H 18 Blood Pressure 148/56 H Pulse Oximetry 100 92 Oxygen Delivery High Flow Nasal Cannula Oxygen Flow Rate 8 Fraction of Inspired Oxygen 09/01/24 18:00 Temperature Pulse Rate 65 Respiratory Rate Blood Pressure Pulse Oximetry Oxygen Delivery Oxygen Flow Rate Fraction of Inspired Oxygen Intake/Output Intake/Output: Intake & Output 08/29/24 08/30/24 08/31/24 09/01/24 23:59 23:59 23:59 23:59 Intake Total 1460 1380 2990 1390 Output Total 1800 1300 1000 100 Balance -623 87 9068 1290 Meds/Results Medications: Active Medications Generic Name Dose Route Start Last Admin Trade Name Freq PRN Reason Stop Dose Admin Albuterol 2.5 mg 08/28/24 09:33 Albuterol Sulfate Neb 2.5 Mg/3 Ml Inh INHALATION Q4HRT PRN Shortness Of Breath Alprazolam 0.5 mg 08/28/24 05:23 Alprazolam (*Crx) 0.5 Mg Tablet PO QID PRN Anxiety Aspirin 81 mg 08/28/24 09:00 09/01/24 08:53 Aspirin 81 Mg Enteric Tablet PO 81 mg DAILY COCO Administration Azithromycin 500 mg 08/30/24 21:00 08/31/24 20:22 Azithromycin 250 Mg Tablet PO 09/01/24 21:01 500 mg QHS COCO Administration Dextrose 12.5 gm 08/28/24 12:12 08/31/24 01:43 Dextrose 50% 25 Gm/50 Ml Syringe IV PUSH 12.5 gm PRN PRN Administration Hypoglycemia Protocol Enoxaparin Sodium 60 mg 08/31/24 15:00 09/01/24 08:53 Enoxaparin 60 Mg/0.6 Ml Syringe SUB-Q 60 mg QAM COCO Administration Escitalopram Oxalate 20 mg 08/28/24 09:00 09/01/24 08:51 Escitalopram Oxalate 10 Mg Tablet PO 20 mg DAILY COCO Administration Furosemide 40 mg 08/28/24 09:00 09/01/24 08:52 Furosemide 40 Mg Tablet PO 40 mg BID COCO Administration Glucagon 1 mg 08/28/24 12:12 Glucagon For Inj 1 Mg Vial IM PRN PRN Hypoglycemia Protocol Glucose 15 gm 08/28/24 12:12 Glucose Oral Gel 15 Gm Of Glucse In 37.5 Gm Tube PO PRN PRN Hypoglycemia Protocol Guaifenesin 1,200 mg 08/28/24 21:00 09/01/24 08:52 Guaifenesin 12 Hr 600 Mg Tabcr PO 1,200 mg Q12HR COCO Administration Dextrose 1,000 mls @ 100 mls/hr 08/28/24 12:12 Dextrose 5% 1,000 Ml IVPB PRN PRN Hypoglycemia Protocol Insulin Aspart 4 - 8 units 08/29/24 08:00 09/01/24 12:33 Insulin Aspart (*Bkc) 100 Units/Ml SUB-Q Not Given TIDWM [facility] Protocol Insulin Aspart 2 - 4 units 08/28/24 21:00 08/31/24 20:24 Insulin Aspart (*Bkc) 100 Units/Ml SUB-Q 2 units HS COCO Administration Protocol Insulin Aspart 3 units 09/01/24 17:00 Insulin Aspart (*Bkc) 100 Units/Ml SUB-Q TIDWM COCO Insulin Glargine 15 units 09/01/24 21:00 Insulin Glargine (*Bkc) 100 Units/Ml SUB-Q HS [facility] Levothyroxine Sodium 112 mcg 08/28/24 06:30 09/01/24 06:23 Levothyroxine Sodium 112 Mcg Tablet PO 112 mcg DAILY@0630 COCO Administration Levothyroxine Sodium 25 mcg 08/28/24 06:30 09/01/24 06:23 Levothyroxine Sodium 25 Mcg Tablet PO 25 mcg DAILY@0630 COCO Administration Losartan Potassium 100 mg 08/28/24 09:00 09/01/24 08:52 Losartan Potassium 50 Mg Tablet PO 100 mg DAILY COCO Administration Lovastatin 20 mg 08/28/24 21:00 08/31/24 21:00 Lovastatin 20 Mg Tablet PO 20 mg HS COCO Administration Metoprolol Tartrate 25 mg 08/28/24 09:00 09/01/24 09:10 Metoprolol Tartrate 25 Mg Tablet PO Not Given Q12HR COCO Montelukast Sodium 10 mg 08/28/24 18:00 08/31/24 17:34 Montelukast Sodium 10 Mg Tablet PO 10 mg QPM COCO Administration Home Med (Ramelteon 8 mg 08/28/24 22:04 08/30/24 20:49 8 Mg Tablet) PO 09/27/24 22:03 8 mg HS PRN Administration Sleep Pantoprazole Sodium 40 mg 08/28/24 09:00 09/01/24 08:51 Pantoprazole 40 Mg Tablet PO 40 mg BID COCO Administration Perflutren Lipid Microsphere 0 ml 08/31/24 07:08 Perflutren Lipid Microspheres 1.5 Ml Vial Diluted To 10 Ml Total Volume IV PUSH 09/03/24 07:08 ONCE PRN adequate visualization Protocol Fluticasone/Salmeterol 1 puff 09/01/24 10:00 09/01/24 10:55 Fluticasone/Salmeterol 230-21 Mcg Inhaler 1 Puff INHALATION 1 puff Q12HRT COCO Administration Umeclidinium [place] 1 puff 09/01/24 09:55 09/01/24 10:54 Umeclidinium [place] 62.5 Mcg Ellipta INHALATION 1 puff DAILYRT COCO Administration Radiology Results: ITS Impressions Chest X-Ray 08/28/24 05:53 Impression: Clear lungs. Possible COPD. Chest CTA 08/28/24 17:14 IMPRESSION: Suboptimal evaluation of the bilateral lower lobe segmental and subsegmental pulmonary arteries. No CT evidence of acute pulmonary embolus in the adequately visualized vessels. Bilateral hilar lymphadenopathy Venous Doppler Study 08/29/24 18:40 IMPRESSION: 1. No deep venous thrombosis in either lower limb. Labs Labs: Laboratory Results - last 24 hr 08/31/24 09/01/24 09/01/24 19:53 04:24 06:31 WBC 12.2 H RBC 4.62 Hgb 12.4 Hct 43.1 MCV 93.3 MCH 26.8 MCHC 28.8 L RDW 15.4 H Plt Count 293 MPV 10.8 H Puncture Site Right radial ABG pH 7.413 ABG pCO2 52.5 H ABG pO2 61.1 L ABG PO2/FiO2 Ratio 1.70 ABG HCO3 32.8 H ABG O2 Saturation 91.3 L ABG O2 Content 15.6 L ABG Base Excess 6.9 A-a Gradient 134.7 Oxyhemoglobin 91.0 Total Hemoglobin 12.2 O2 Delivery Device Bipap O2 Liters/Min Not Reportable FiO2 36 Expiratory Pressure 4 Inspiratory Pressure 18 Sodium 141 Potassium 4.1 Chloride 98 Carbon Dioxide 37 H Anion Gap 6 BUN 55 H D Creatinine 1.43 H Estim Creat Clear Calc 20 Estimated GFR 35 L Glucose 74 POC Capillary Glucose 297 H Calcium 9.3 09/01/24 09/01/24 09/01/24 08:03 12:13 15:56 WBC RBC Hgb Hct MCV MCH MCHC RDW Plt Count MPV Puncture Site ABG pH ABG pCO2 ABG pO2 ABG PO2/FiO2 Ratio ABG HCO3 ABG O2 Saturation ABG O2 Content ABG Base Excess A-a Gradient Oxyhemoglobin Total Hemoglobin O2 Delivery Device O2 Liters/Min FiO2 Expiratory Pressure Inspiratory Pressure Sodium Potassium Chloride Carbon Dioxide Anion Gap BUN Creatinine Estim Creat Clear Calc Estimated GFR Glucose POC Capillary Glucose 71 136 H 205 H Calcium PFSH Medical History Essential hypertension Type 2 myocardial infarction 02/2024 Diastolic congestive heart failure Echocardiogram February 2024 demonstrated EF of 65-70%, mild concentric left ventricular wall thickness, grade 1 diastolic dysfunction, E/E 11 mildly elevated, moderate left atrial enlargement. Prior echocardiogram 05/2023 demonstrated basal inferior septal wall severely hypokinetic to akinetic but this was not mentioned on the most recent echo Chronic kidney disease Stage IIIB Hypothyroidism Coronary artery disease Normal Lexiscan 10/2022 Gastroesophageal reflux disease Chronic obstructive pulmonary disease Hyperlipidemia Surgical History History of cholecystectomy History of appendectomy History of partial hysterectomy Family History Father Cerebrovascular accident Mother Diabetes mellitus Heart disease Sibling Throat cancer Renal failure Suicide Sibling Heart disease Social History Social History: Surrogate medical decision maker: Eagle Bonilla, anjelica. Code status: Do not intubate Smoking packs per day: 1 Smoking cigarettes per day: 20.0 Years smoked: 60 Smoking pack-years: 60.00 Smoking status: Former smoker Tobacco type: cigarettes Second hand tobacco smoke exposure: Yes Smoking end date: 05/01/1964 Alcohol intake: never Alcohol use details: Social Substance use: never Substance use type: does not use Do You Feel Safe in your Home?: Yes Lack of Transportation: No Lack of Food: Never True Current Housing: I Have Housing Concerned About Future Housing: No Difficulty Paying Gas/Electric Bills: No Difficulty Paying for Meds: No Currently Unemployed: No Education: High School Diploma/GED Difficulty w/ Childcare or Family Care: No Living arrangements: with family Additional living arrangements comments: Lives with son, [id number] and 3 grandchildren in [place]. 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 Gender identity (if verbalized by the patient): Female Spiritual care concerns: No Social History Tobacco Smoking and tobacco status: Former smoker Smoking status stop date: 05/01/1964 Second hand smoke exposure: Yes Alcohol Alcohol intake: never Substance Use Substance use type: does not use Personal Safety History of emotional abuse: No History of sexual abuse: No Chart Abstraction Allergies/Adverse Reactions No Known Allergies Allergy (Verified 08/01/24 11:05) Medication Reconciliation insulin lispro 100 unit/mL subcutaneous pen (Humalog KwikPen (U-100) Insulin) See Protocol subcut TIDWM 05/15/21 [History Confirmed 08/28/24] lovastatin 20 mg tablet 20 mg PO HS 05/15/21 [History Confirmed 08/28/24] omeprazole 40 mg capsule,delayed release 40 mg PO DAILY 05/15/21 [History Confirmed 08/28/24] aspirin 81 mg tablet,delayed release 81 mg PO DAILY 09/26/21 [History Confirmed 08/28/24] levothyroxine 137 mcg tablet (Synthroid) 137 mcg PO DAILY@0630 #30 tabs 06/04/23 [Rx Confirmed 08/28/24] levalbuterol tartrate 45 mcg/actuation aerosol inhaler 2 inh inhalation Q6H PRN shortness of breath or wheezing #15 grams 07/05/23 [Rx Confirmed 08/28/24] escitalopram oxalate 20 mg tablet 20 mg PO DAILY 07/14/23 [History Confirmed 08/28/24] furosemide 40 mg tablet 40 mg PO BID 10/25/23 [History Confirmed 08/28/24] montelukast 10 mg tablet 10 mg PO QPM 03/12/24 [History Confirmed 08/28/24] guaifenesin 600 mg tablet, extended release 12 hr (Mucus Relief ER) 600 mg PO Q12HR #60 tabs 03/16/24 [Rx Confirmed 08/28/24] ramelteon 8 mg tablet See Rx Instructions .Route .COMPLEX #90 tabs 05/24/24 [Rx Confirmed 08/28/24] Breo Ellipta 100 mcg-25 mcg/dose powder for inhalation (fluticasone furoate-vilanterol) See Rx Instructions .Route .COMPLEX #180 ea 05/29/24 [Rx Confirmed 08/28/24] tiotropium bromide 2.5 mcg/actuation mist for inhalation 1 inh inhalation .twice a day #4 grams 06/14/24 [Rx Confirmed 08/28/24] glucagon 3 mg/actuation nasal spray 3 mg intranasal ONCE #2 ea 07/25/24 [Rx Confirmed 08/28/24] insulin glargine 100 unit/mL (3 mL) subcutaneous pen (Lantus Solostar U-100 Insulin) 10 unit (0.1 mL) subcut HS #15 mL 07/25/24 [Rx Confirmed 08/28/24] metoprolol tartrate 25 mg tablet 25 mg PO BID #180 tabs 08/16/24 [Rx Confirmed 08/28/24] alprazolam 0.25 mg tablet 0.5 mg PO QID PRN Anxiety 08/28/24 [History Confirmed 08/28/24] losartan 50 mg tablet 100 mg PO DAILY 08/28/24 [History Confirmed 08/28/24] Medical History Essential hypertension Type 2 myocardial infarction 02/2024 Diastolic congestive heart failure Echocardiogram February 2024 demonstrated EF of 65-70%, mild concentric left ventricular wall thickness, grade 1 diastolic dysfunction, E/E 11 mildly elevated, moderate left atrial enlargement. Prior echocardiogram 05/2023 demonstrated basal inferior septal wall severely hypokinetic to akinetic but this was not mentioned on the most recent echo Chronic kidney disease Stage IIIB Hypothyroidism Coronary artery disease Normal Lexiscan 10/2022 Gastroesophageal reflux disease Chronic obstructive pulmonary disease Hyperlipidemia Surgical History History of cholecystectomy History of appendectomy History of partial hysterectomy Family History Father Cerebrovascular accident Mother Diabetes mellitus Heart disease Sibling Throat cancer Renal failure Suicide Sibling Heart disease Social History Social History: Surrogate medical decision maker: Eagle Malenaceceliasid, anjelica. Code status: Do not intubate Smoking packs per day: 1 Smoking cigarettes per day: 20.0 Years smoked: 60 Smoking pack-years: 60.00 Smoking status: Former smoker Tobacco type: cigarettes Second hand tobacco smoke exposure: Yes Smoking end date: 05/01/1964 Alcohol intake: never Alcohol use details: Social Substance use: never Substance use type: does not use Do You Feel Safe in your Home?: Yes Lack of Transportation: No Lack of Food: Never True Current Housing: I Have Housing Concerned About Future Housing: No Difficulty Paying Gas/Electric Bills: No Difficulty Paying for Meds: No Currently Unemployed: No Education: High School Diploma/GED Difficulty w/ Childcare or Family Care: No Living arrangements: with family Additional living arrangements comments: Lives with son, [id number] and 3 grandchildren in [place]. 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 Gender identity (if verbalized by the patient): Female Spiritual care concerns: No
--- NOTE | 2024-09-14 16:22 | PM.TDS ---
Transfer Discharge Sum: Prov Provider Date of admission: 08/28/24 01:04 Primary care physician: Vidal Hein DO Admitting clinician: Zakia Noe MD Consults: 08/28/24 Consult to Physician Routine Comment: Spoke with provider 08/28 @ 3515 Consulting Provider: Kameron Bustamante call centre supervisor/MD group to consult: betty Reason for consultation: copd exacerbation Has provider been notified: Yes 08/31/24 Consult to Physician Routine Comment: Called office and notified them of consult Consulting Provider: Rj Richter call centre supervisor/MD group to consult: cardiology Reason for consultation: CHF, abnormal Echo Has provider been notified: Yes DS: Admitting Diagnosis Discharge Date 09/01/24 Admitting Diagnosis Acute on chronic hypoxic respiratory failure with hypoxemia and hypercapnia DS: Discharge Diagnosis Discharge Diagnosis (1) Diastolic congestive heart failure: Code(s): I50.30 - Unspecified diastolic (congestive) heart failure Status: Acute (2) Insulin dependent diabetes mellitus: Status: Acute (3) COPD exacerbation: Code(s): J44.1 - Chronic obstructive pulmonary disease with (acute) exacerbation Status: Acute (4) Acute and chronic respiratory failure with hypoxia: Code(s): J96.21 - Acute and chronic respiratory failure with hypoxia Status: Acute Plan Acute on chronic hypoxic respiratory failure with hypoxemia and hypercapnia COPD exacerbation Community-acquired pneumonia * BAG abnormal. pulmonary team on board and adjusting BIPAP. plan to keep patient overnight and evaluate her needs for BIPAP.. on DuoNebs q.4 hours, methylprednisolone 20 mg IV Q 6 Quad viral screen negative. X-ray showed increased interstitial patchy infiltrate bilateral lower lobes. Patient has leukocytosis, suspecting acute bacterial bronchitis and pneumonia will continue prednisone. Continue Iv Abx Rocephin and azithromycin. plan to do overnight Oximetry. pulm team on board Condition improving, changed to oral prednisone today 08/29--> completed 09/01 Diastolic heart failure compensated Possible decompensated due to COPD exacerbation, Echocardiogram showed EF 65%, grade 1 diastolic dysfunction. here is a stable echo dense mass in the right atrium suggestive of calcified structure versus stable thrombus. Recommend outpatient advance cardiac imaging such as CT or MRI. 3. Agitated saline study is positive for xeurj-zw-xbtj shunting suggestive of a large size PFO. plan to transfer to [facility] for further managemnet (R&L Cath) Continue to monitor closely. Continue home medications metoprolol, Lasix 40 mg p.o. b.i.d. -daily weights, strict intake/output, heart healthy diet CKD stage IIIB Cr 1.43 Elevated BUN creatinine ratio Slightly above baseline CAD: Denies chest pain Resume GOLD MARKER aspirin, lovastatin GERD Continue Protonix 40 mg daily p.o. Hypertension: Resume GOLD MARKER metoprolol, losartan, Lasix Insulin-dependent diabetes mellitus: had hypoglycemia Lantus 15 units q.h.s., sliding scale with Accu-Cheks a.c. HS hypothyroidism, levothyroxin hyperlipidemia statin DNR. Patient lives with family member. . Transfer Discharge Sum: Med Medications Active and Home Medications: Home Medications insulin lispro 100 unit/mL subcutaneous pen (Humalog KwikPen (U-100) Insulin) See Protocol subcut TIDWM 05/15/21 [History Confirmed 08/28/24] lovastatin 20 mg tablet 20 mg PO HS 05/15/21 [History Confirmed 08/28/24] omeprazole 40 mg capsule,delayed release 40 mg PO DAILY 05/15/21 [History Confirmed 08/28/24] aspirin 81 mg tablet,delayed release 81 mg PO DAILY 09/26/21 [History Confirmed 08/28/24] levothyroxine 137 mcg tablet (Synthroid) 137 mcg PO DAILY@0630 #30 tabs 06/04/23 [Rx Confirmed 08/28/24] levalbuterol tartrate 45 mcg/actuation aerosol inhaler 2 inh inhalation Q6H PRN shortness of breath or wheezing #15 grams 07/05/23 [Rx Confirmed 08/28/24] escitalopram oxalate 20 mg tablet 20 mg PO DAILY 07/14/23 [History Confirmed 08/28/24] furosemide 40 mg tablet 40 mg PO BID 10/25/23 [History Confirmed 08/28/24] montelukast 10 mg tablet 10 mg PO QPM 03/12/24 [History Confirmed 08/28/24] guaifenesin 600 mg tablet, extended release 12 hr (Mucus Relief ER) 600 mg PO Q12HR #60 tabs 03/16/24 [Rx Confirmed 08/28/24] ramelteon 8 mg tablet See Rx Instructions .Route .COMPLEX #90 tabs 05/24/24 [Rx Confirmed 08/28/24] Breo Ellipta 100 mcg-25 mcg/dose powder for inhalation (fluticasone furoate-vilanterol) See Rx Instructions .Route .COMPLEX #180 ea 05/29/24 [Rx Confirmed 08/28/24] tiotropium bromide 2.5 mcg/actuation mist for inhalation 1 inh inhalation .twice a day #4 grams 06/14/24 [Rx Confirmed 08/28/24] glucagon 3 mg/actuation nasal spray 3 mg intranasal ONCE #2 ea 07/25/24 [Rx Confirmed 08/28/24] insulin glargine 100 unit/mL (3 mL) subcutaneous pen (Lantus Solostar U-100 Insulin) 10 unit (0.1 mL) subcut HS #15 mL 07/25/24 [Rx Confirmed 08/28/24] metoprolol tartrate 25 mg tablet 25 mg PO BID #180 tabs 08/16/24 [Rx Confirmed 08/28/24] alprazolam 0.25 mg tablet 0.5 mg PO QID PRN Anxiety 08/28/24 [History Confirmed 08/28/24] losartan 50 mg tablet 100 mg PO DAILY 08/28/24 [History Confirmed 08/28/24] Spiriva Respimat 2.5 mcg/actuation solution for inhalation (tiotropium bromide) 2 puff inhalation DAILY #4 grams 09/14/24 [Rx] budesonide 0.5 mg/2 mL suspension for nebulization 0.5 mg (2 mL) inhalation DAILY #60 mL 09/14/24 [Rx] Transfer Discharge Sum: Hosp Hospital Course Hospital course: per HPI 83-year-old female with a past medical history formal tobacco abuse, hypothyroidism, hyperlipidemia, insulin dependent diabetes mellitus, hypertension, CAD, CKD, COPD, chronic respiratory failure with continuous home O2 use. She presents a [facility] ER on 08/28/2024 as she was found to be hypoxic and tachypneic with shortness of breath and wheezing. She lives with her family member. Patient was placed on 10 L non-rebreather, given 2 g IV magnesium, epinephrine, 125 mg IV Solu-Medrol, 3 DuoNebs treatments and brought to the ER. At that time she was saturating 54% on non-rebreather. She was placed on BiPAP and had symptomatic relief. On the BiPAP with 100% FiO2 her pH was 7.347, pCO2 50.9, PO2 139, bicarb 27.3. She was also given a continuous DuoNeb treatment, azithromycin and ceftriaxone. Her WBC count 22.9, BUN 43, serum creatinine 1.40, quad viral screen negative, BNP 66180, troponin 0.031. Chest x-ray did not demonstrate any acute findings. The patient reiterated her DNR status. She otherwise denied fever, cough worse than her usual, sputum production, chest pain. 08/30/24 patient was seen and examined at bedside. Patient off BiPAP now, patient is on high-flow oxygen via nasal cannular on 10 L o2 Patient feels better Denies chest pain abdomen pain nausea vomiting diarrhea pulmonary team on board. will continue prednisone. Continue Iv Abx Rocephin and azithromycin. plan to do overnight Oximetry. 08/31/24 Patient was seen and examined at bedside. she is feeling better. her breathing improving and is back to baseline 8 lit. BAG abnormal. pulmonary team on board and adjusting BIPAP. plan to keep patient overnight and evaluate her needs for BIPAP. 09/01/24 Patient was seen and examined at bedside. she is feeling better. her breathing is better. denies any chest pain, SOB, abd pine, N?V Cardiology and pulmonary team on board. reviewed echo. patient transferred for further work up regarding PFO found on ECHO> Patient Condition: Stable Time Spent with Patient Time attestation: Total time spent providing and/or coordinating transfer services: Total time spent: Greater than 30 minutes Exam Narrative: GENERAL: Pleasant, in no acute distress. Well-nourished. - EYES: EOMI. Anicteric. - HENT: Moist mucous membranes. - LUNGS: Coarse breath sound bilaterally - CARDIOVASCULAR: Regular rate and rhythm. No murmur. No JVD. - ABDOMEN: Soft, non-tender and non-distended. No palpable masses. - EXTREMITIES: No edema. Peripheral pulses 2+. Non-tender. - NEUROLOGIC: No focal neurological deficits. CN II-XII grossly intact. - PSYCHIATRIC: Awake, Alert and oriented x 3. Appropriate mood and affect. - SKIN: No rashes or lesions. Warm. - LYMPH: No cervical lymphadenopathy. Const: General: comfortable and no acute distress Other: A&O x3 HENMT: Mouth: Yes moist mucous membranes Eyes: Pupils: Equal, round and reactive pupils present Neck: Neck: supple Resp: Effort & Inspection: normal respiratory effort Other: Diminished lung sounds, scant dry crackles, slight expiratory wheeze Cardio: Rate: regular rate Rhythm: regular rhythm Heart sounds: no gallops, no murmurs and no rubs GI: Inspection: non-distended Neuro: Cranial nerves: Yes Equal, round and reactive pupils present Motor exam (neuro): 5/5 motor strength present throughout Extrem: General: no edema
== END 2024-09-01 18:16 | disposition short-term general hospital (02) | DRG 190 ==
LOC: ANHED 01:46 → ANHIMU 02:15
PROVIDERS: Hospitalist; Internal Medicine Pulmonary Disease; Admitting Provider General Practice; Emergency Provider Emergency Medicine; PCP Family Medicine; Visit Provider Internal Medicine
DX: J44.1 Chronic obstructive pulmonary disease with (acute) exacerbation (principal); I50.33 Acute on chronic diastolic (congestive) heart failure; J96.21 Acute and chronic respiratory failure with hypoxia; J96.22 Acute and chronic respiratory failure with hypercapnia; J18.9 Pneumonia, unspecified organism; I13.0 Hypertensive heart and chronic kidney disease with heart failure and stage 1 through stage 4 chronic kidney disease, or unspecified chronic kidney disease; Q21.12 Patent foramen ovale; J44.0 Chronic obstructive pulmonary disease with (acute) lower respiratory infection; N18.32 Chronic kidney disease, stage 3b; Z20.822 Contact with and (suspected) exposure to COVID-19; J20.8 Acute bronchitis due to other specified organisms; T17.990A Other foreign object in respiratory tract, part unspecified in causing asphyxiation, initial encounter; E03.9 Hypothyroidism, unspecified; E78.5 Hyperlipidemia, unspecified; E11.9 Type 2 diabetes mellitus without complications; I25.10 Atherosclerotic heart disease of native coronary artery without angina pectoris; K21.9 Gastro-esophageal reflux disease without esophagitis; Z66 Do not resuscitate; Z99.81 Dependence on supplemental oxygen; Z87.891 Personal history of nicotine dependence; I25.2 Old myocardial infarction; Z90.49 Acquired absence of other specified parts of digestive tract; Z90.711 Acquired absence of uterus with remaining cervical stump
CPT/HCPCS: 36415; 36600; 71045; 71275; 80048; 80053; 82375; 82805; 82948; 83036; 83050; 83605; 83735; 83880; 84145; 84439; 84443; 84484; 85018; 85025; 85027; 85380; 85610; 85730; 86738; 87637; 93005; 93306; 93970; 94002; 94003; 94640; 94762; 97161; 97165; 99291; A9270; J0456; J0696; J1650; J1815; J2919; J7050; J7512; Q9967

== ENCOUNTER 2024-09-19 16:51 | Emergency (ER) | payer MEDICARE, SELFPAY ==
--- NOTE | ~2024-09-19 | XR_ITS ---
CHEST RADIOGRAPH CLINICAL HISTORY: SOB . COMPARISON: None available. Prior imaging dated 08/28/2024 is unable to be accessed secondary to technical difficulties. TECHNIQUE: Single portable view of the chest. FINDINGS The cardiomediastinal silhouette is unremarkable. Increased coarse interstitial markings are identified bilaterally, findings suggesting moderate pulmonary vascular congestion. The remainder of the lungs are clear. IMPRESSION: Moderate pulmonary vascular congestion without focal infiltrate or effusion.
[2024-09-19 16:50] VITALS: BP 184/56; PULSE 95; RESP 32; O2SAT 98
--- NOTE | 2024-09-19 17:06 | ECG_ITS ---
Test Date: 2024-09-19 17:17:40 Measurements Intervals [place] Rate: 91 P: 35 NH: 144 QRS: 134 QRSD: 103 T: -22 QT: 387 QTc: 477 Interpretive Statements SINUS RHYTHM RIGHT AXIS DEVIATION ST-T WAVE ABNORMALITY IN ANT/INF LEADS- CONSIDER ISCHEMIA BASELINE ARTIFACT- I, II, III, AVR, AVL, AVF ABNORMAL ECG Compared to ECG 08/28/2024 01:16:26 ST-T WAVE ABNORMALITY IMPOROVED Electronically Signed On 09-19-2024 17:33:38 CDT by Rj Richter D.O.
[2024-09-19 17:31] VITALS: O2SAT 94
[2024-09-19 17:32] LABS: Hematocrit 36.9 % (37.0-47.0); Hemoglobin 10.6 g/dL (12.0-15.0); Immature Granulocyte Percent A 1.6 % (0-0.5); Lymphocytes Absolute Auto 0.53 K/mm3 (0.9-3.2); Mean Corpuscular HGB Conc 28.7 g/dl (32-36); Mean Corpuscular Hemoglobin 26.8 pg (26-34); Mean Corpuscular Volume 93.4 fl (80-100); Nucleated Red Blood Cells Absolute Auto 0.000 K/mm3 (0.0-0.012); Nucleated Red Blood Cells Perc 0.0 % (0.0-0.2); Platelet Count Result 336 k/mm3 (150-375); Red Blood Count 3.95 M/mm3 (4.2-5.4); White Blood Count 14.6 K/mm3 (4.5-10.0)
[2024-09-19 17:49] LABS: Anisocytosis 1+; Hypochromasia 1+; Ovalocytes 1+; Schistocytes None Seen
--- OUTSIDE RECORDS SUMMARY | 2024-09-19 17:50 | XMS_ITS | Continuity of Care Document ---
Author Organization [facility] [place] [address] [place] [address] Phone Care Team Providers Care Dry Wall Applicator Name Role Phone Jm Burrows MD Unavailable [...] Diagnoses Date Provider Providers Copied on Encounter [facility], [address], [place], [place], [address], [place] tel:[phone] SEC [place] Professional FOLLOW-UP SURGERY NOS 4 [place] Jm. [address], [address], [place], [place], [address], [place]. tel:[phone] Referring Provider: Maulik Blanco, [address], [place], [address] . tel:[phone] [facility], [address], [place], [place], [address], [place] tel:[phone] SEC [place] Professional FOLLOW-UP SURGERY NOS 3 [place] [address] [facility], [address], [place], [place], [address], [place]. tel:[phone] Referring Provider: Maulik Blanco, [address], [place], [address] . tel:[phone] [facility], [address], [place], [place], [address], [place] tel:[phone] SEC [place] Professional FOLLOW-UP SURGERY NOS 3 Vani Agrawal. [address], [address], [place], [address], [place]. tel:[phone] Referring Provider: Maulik Blanco, [address], [place], [address] . tel:[phone] [facility], [address], [place], [place], [address], [place] tel:[phone] Claudy [facility] No Information 3 Latrice Willingham. [address], [address], [place], [place], [address], [place]. tel:[phone] Referring Provider: Maulik Blanco, [facility] [address], [place], [address] . tel:[phone] [facility], [address], [place], [place], [address], [place] tel:[phone] SEC Maurice Branham No Information 3 Latrice Willnigham. [facility] [employer] [address], [address], [place], [place], [address], [place]. tel:[phone] Referring Provider: Maulik Blanco, [facility] [address], [place], [address] . tel:[phone] [facility], [address], [place], [place], [address], [phone] SEC Maurice Branham No Information 0 [address] [place] Maulik. [facility] [employer] [address], [address], [place], [place], [address], [place]. tel:[phone] [facility], [facility] [address], [place], [place], [address], [place] tel:[phone] SEC [facility] Professional SENILE NUCLEAR CATARACTDMII OPHTH NT ST UNCNTRLDIABETI C RETINOPATHY NOS 2 3 Latrice Willingham. [facility] [employer] [address], [address], [place], [place], [address], [place]. tel:[phone] Referring Provider: Maulik Blanco, [facility] [address], [place], [address] . tel:[phone] Office/outpa tient Visit, [facility], [address], [place], [place], [address], [place] tel:[phone] SEC [facility] No Information 6[address] Philomena Chaneyn. [address], [address], [place], [address], [place]. tel:[phone] Referring Provider: Deni Anderson, [address] [place], [address]. tel:[phone] Family History Family Member Type Diagnosis Age [...] plan -SENILE NUCLEAR CATARACT -DMII OPHTH NT [facility] -DIABETIC RETINOPATHY NOS - Cataracts account for [...]
--- OUTSIDE RECORDS SUMMARY | 2024-09-19 17:50 | XMS_ITS | Clinical Summary ---
Author Organization [facility] Address [address] [place] [address] Care Team Providers Care Elevator Attendant Name Role Phone Unavailable Primary Care Provider [...] D 600-400 MG-UNIT tabletIndications :Congestive heart failure ([facility]) Take 1 tablet by mouth 2 (two) times daily. clarification of script 180 tablet 1 10/02/19 20 Active Insulin Pen Needle (DROPLET PEN NEEDLES) 31G X 8 MM MiscIndications:D iabetes ([facility]) TO USE TO INJECT INSULIN QID 1 Container 5 03/19/19 21 Active insulin lispro, 1 Unit Dial, (HUMALOG KWIKPEN) 100 UNIT/ML injection (PEN)Indications: Diabetes mellitus ([facility]) INJECT SUBCUTANEOUSLY 3 TIMES DAILY PER SLIDING SCALE (UP TO DAILY DOSE OF 35-40 UNITS) 12 pen 08/13/19 21 Active furosemide 40 MG tabletIndications :Congestive heart failure ([facility]) TAKE 1 TABLET BY MOUTH DAILY IN THE MORNING 90 tablet 1 11/20/19 21 Active LORazepam (ATIVAN) 0.5 MG tabletIndications :Panic attack Take 1 tablet (0.5 mg total) by mouth every 6 (six) hours as needed for Anxiety. 20 tablet 11/22/19 21 Active Continuous Blood Gluc Plating Department Helper (FREESTYLE SANDER 14 DAY READER) DeviceIndications :Type 2 diabetes mellitus with diabetic nephropathy, with long-term current use of insulin ([facility]) Use to check blood sugar four times daily and as directed. 1 each 02/19/19 22 Active insulin glargine 100 UNIT/ML injection (PEN)Indications: Type 2 diabetes mellitus with diabetic nephropathy, with long-term current use of insulin ([facility]) Inject 16 Units into the skin nightly at bedtime. 5 pen 1 03/03/19 22 Active furosemide 20 MG tabletIndications :Essential hypertension Take 1 tablet (20 mg total) by mouth every evening. 90 tablet 1 03/03/19 22 Active ACCU-CHEK NYDIA PLUS test stripIndications: Type 2 diabetes mellitus with diabetic nephropathy, with long-term current use of insulin ([facility]) Use to check blood sugar twice per [...] 04/29/2018 Anxiety 04/29/2018 Chronic obstructive pulmonary disease ([facility]) 03/07/2018 Diabetes mellitus ([facility]) 03/07/2018 Essential hypertension 03/07/2018 Hyperlipidemia 03/07/2018 Tobacco dependence syndrome 03/07/2018 Chronic hypoxemic respiratory failure ([facility]) 03/07/2018 Esophagitis 03/07/2018 Hypothyroidism 03/07/2018 [...] Other prematur e Heart Disease Sister 1 MD Sister 2 Heart Sister 3 form heart problems Heart Sister 4 from heart problems MD Son Open Heart Son Stroke Son (after [...] Comments Blood Pressure 108/64 01/30/2021 2:01 PM MIRROR DEPARTMENT SUPERVISOR Pulse 63 01/30/2021 2:01 PM MIRROR DEPARTMENT SUPERVISOR Temperature 36.1 C (97 F) 01/30/2021 2:01 PM MIRROR DEPARTMENT SUPERVISOR Respiratory Rate 20 01/30/2021 2:01 PM MIRROR DEPARTMENT SUPERVISOR Oxygen Saturation 91% 01/30/2021 2: 01 PM MIRROR DEPARTMENT SUPERVISOR Inhaled Oxygen Concentration - - Weight 64.8 kg (142 lb 12.8 oz) 01/30/2021 2:01 PM MIRROR DEPARTMENT SUPERVISOR Height 152.4 cm (5') 01/30/2021 2:01 PM MIRROR DEPARTMENT SUPERVISOR Body Mass Index 27.89 01/30/2021 2:01 PM MIRROR DEPARTMENT SUPERVISOR Plan of Treatment Health Maintenance Due Date [...] (BACK OFFICE) (01/30/2021) HGB A1C 7.0 % [id number] T [facility] 01/30/2021 us Jessee Gregg MD LABORATORY Final Resul t -[address] [place] [address] [place] [address], * LIPID PANEL (04/30/2020 4:15 PM CDT) [...] LDL-C. Jamil SS et al. PAUL. 2013;310(19): 2886-8511 (http://education.Videdressing.3dplusme/faq/RLU088) CHOL/HDL RATIO 3.0 <5.0 (calc) [facility] [...] t [facility] [address] [id number] from Last 3 Months or Most Recently Relevant to Health Maintenance Insurance MEDICARE
--- OUTSIDE RECORDS SUMMARY | 2024-09-19 17:50 | XMS_ITS | Encounter Summary ---
Author Organization [facility] Address [address] [place] [address] Care Team Providers Care Marble Supervisor Name Role Phone Raymond Medina MD Primary Care Provider [phone] Jessee Gregg MD Primary Care Provider [phone] Encounter Details Date Type Department Care Team (Late st Contact Info) Description 10/30/2011 Abstract [facility] [address] [place] [address] New Referring, Provider Social History [...] on filedocumented in this encounter Care Teams Marble Supervisor Relationship Specialty Start Date End Date Raymond Medina MD [address] [place] [id number] PCP - General FAMILY PRACTICE 06/04/16 08/16/19 [place] [address] [place] [address] PCP - General FAMILY PRACTICE 08/17/19 06/15/21 documented as of this encounter
--- OUTSIDE RECORDS SUMMARY | 2024-09-19 17:50 | XMS_ITS | Clinical Summary ---
Author Organization [facility] Address [address] [address] Phone Care Team Providers Care Tripoler Name Role Phone Scott Galvez MD Primary Care Provider [phone] Allergies No known active allergies Medications albuterol [...] 0 Active pen needle, diabetic (Droplet Pen [place]) 31G X 5 MM misc 0 Active glucose blood (Accu-Chek Corrie Plus) test strip 0 Active Continuous Blood Gluc Sensor (FreeStyle Sophia 14 Day Sensor) misc Use with Freestyle Sophia monitor 0 Active Continuous Blood Gluc Potato Sorter (FreeStyle Sophia 14 Day [place]) device Use with Freestyle Sophia Sensor 0 [...] exists Insurance [employer] MEDICARE Care Teams Tripoler Relationship Specialty Start Date End Date Scott Galvez MD [address] [place] [id number] (work) PCP - General Internal Medicine 05/21/21
--- OUTSIDE RECORDS SUMMARY | 2024-09-19 17:50 | XMS_ITS | Clinical Summary ---
Author Organization [facility] [employer] Address [address] [place] [address] Care Team Providers Care Punch Machine Hand Name Role Phone Unavailable Primary Care Provider Unavailabl e Source Comments [facility],non-owned Affiliates and Associated Physician Practices is amultiple site organization consisting of ambulatory clinics and hospital sitesin [place], [place], [place] and [place]. This disclosure is being madepursuant to the Care Everywhere program and may not contain all information available regarding this patient. Last updated 17.[facility] [employer] Allergies No known active allergies Medications * [...] and heating? Not hard at all 01/30/2024 [facility] [place] of Occupat ional Health - Occupational Stress [...] in the past 12 m [facility], were you homeless or living in a longterm (including now)? No 01/30/2024 Comments Unknown Sex and Gender Information Value Date Recorded Sex Assigned at Not on file Legal Sex Female 1:19 AM STRAP SEWER Gender Identity Not on file Sexual Orientation Not on file Last Filed Vital Signs Vital Sign Reading Time Taken Comments Blood Pressure 143/58 02/05/2024 12:01 PM STRAP SEWER Pulse 79 02/05/2024 12:01 PM STRAP SEWER Temperature 36.2 C (97.1 F) 02/05/2024 8:01 AM STRAP SEWER Respiratory Rate 26 02/05/2024 12:01 PM STRAP SEWER Oxygen Saturation 94% 02/05/2024 12:01 PM STRAP SEWER Inhaled Oxygen Concentration 35% 02/01/2024 1 1:38 PM STRAP SEWER Weight 64.6 kg (142 lb 5.6 oz) 01/30/2024 5:14 P M STRAP SEWER Height 152.4 cm (5') 01/30/2024 5:14 PM STRAP SEWER Body Mass Index 27.8 01/30/2024 5:14 PM STRAP SEWER Plan of Treatment Health Maintenance Due Date [...] patient's age to complete this topic Insurance [facility] MANAGED MEDICARE ADV Advance Directives * LIMITED [...]
--- OUTSIDE RECORDS SUMMARY | 2024-09-19 17:50 | XMS_ITS | Continuity of Care Document ---
Author Organization [facility] Address [address] [place] [id number] Phone Care Team Providers Care Tail Trimmer Name Role Phone Walt HOPPER, FACRodger, [place] Unavailable Unavailabl e Procedures Procedure Date SUBSEQUENT HOSPITAL CARE PRQ CARD STENT/ATH/ANGIO PRQ CARD STENT W/ANGIO 1 VSL PERQ TRLUML CORONRY LITHOTRP INTRAVASC US, HEART ADD-ON SUBSEQUENT HOSPITAL CARE SUBSEQUENT HOSPITAL CARE R&L HRT ART/VENTRICLE ANGIO INJECT SUPRVLV AORTOGRAPHY ECHO TRANSESOPHAGEAL SUBSEQUENT HOSPITAL CARE DOPPLER ECHO EXAM, HEART DOPPLER COLOR FLOW ADD-ON INITIAL HOSPITAL CARE SUBSEQUENT HOSPITAL CARE SUBSEQUENT HOSPITAL CARE Advance Directives Directive Yes / No Effective Date File Name No Information Encounters Encounter Description Practice Location Reason(s) For Visit Diagnoses Date Provider Providers Copied on Encounter SUBSEQUENT HOSPITAL CARE [facility], [address], [place], [id number] , [place] tel: [phone] [facility] IP Essential (primary) hypertensionChronic respiratory failure with hypoxiaChronic obstructive pulmonary disease, unspecifiedType 2 diabetes mellitus without complicationsAnemia , unspecifiedChronic kidney disease, stage 3a Walt Fragoso. [address] [place] [address], [id number], [place]. tel:[phone] Referring Provider: Vidal Hein [address] [place], [address]. tel:[phone] INITIAL HOSPITAL CARE [facility], [address] [place] [address], [id number] , tel: [phone] [facility] IP Essential (primary) hypertensionChronic respiratory failure with hypoxiaChronic obstructive pulmonary disease, unspecifiedType 2 diabetes mellitus without complicationsAnemia , unspecifiedChronic kidney disease, stage 3a 5 Taiwo Orindaniella. [facility] [place], [place], [id number], [place]. tel:[phone] Referring Provider: Vidal Hein [facility] [place], [address]. tel:[phone] SUBSEQUENT HOSPITAL CARE [facility], [address] [place] [address], [id number] , tel:[phone] [facility] Other specified atrial septal defectShortness of breathCardiomegaly 5 Kalvaitis Saulius. [address] [place], [place], [id number], [place]. tel:[phone] Referring Provider: Vidal Hein [address] [place], [address]. tel:[phone] Family History Family Member Type Diagnosis Age At Onset No Information Payers Payer name Insurance type Covered green party ID Cora rome(s) [facility] MEDICARE ADVANTAGE PPO [id number] Social History Type Description Quantity Date Captured Comments Sex Female Smoking Status No Information Chief Complaint And Reason For Visit No Information Reason For Referral Reason For Referral No Information History Of Present Illness Encounter Date Complaint History Of Prese nt Illness No Information Functional Status Date Functional Assessmen t No Information Instructions Date Instruction Additional Infor mation No Information Assessments Type Assessment Date No Information Patient Care Teams Name Effective Dates (start - stop) Status Members No Information
[2024-09-19 17:53] LABS: Alanine Aminotransferase 25 U/L (6-35); Albumin Level 4.0 g/dL (3.5-5.1); Alkaline Phosphatase 82 U/L (38-126); Anion Gap 8 mmol/L (4-12); Aspartate Amino Transferase 37 U/L (14-36); Bilirubin,Total 0.4 mg/dL (0.2-1.3); Blood Urea Nitrogen 42 mg/dL (7-17); Calcium 9.3 mg/dL (8.4-10.2); Carbon Dioxide 30 mmol/L (22-30); Chloride 99 mmol/L (98-107); Estimated CRCL calculation 24 ml/min; Estimated Glomerular Filt Rate 44; Glucose 225 mg/dL (65-110); Potassium 4.8 mmol/L (3.4-5.0); Sodium 137 mmol/L (137-145); Total Protein 7.1 g/dL (6.3-8.2)
[2024-09-19 18:54] VITALS: BP 169/59; PULSE 92; RESP 28; O2SAT 99
--- NOTE | 2024-09-19 19:03 | ED.GENADULT ---
HPI - General Adult General Chief complaint: Shortness of Breath/Dyspnea Stated complaint: resp distress Time Seen by Provider: 09/19/24 17:20 History of Present Illness HPI narrative: This is an 83-year-old female with chronic respiratory failure on the 6-10 L high-flow nasal cannula at all times presenting for cold hands. She was with her son and he noticed that her hands and feet head turned bluish. He tried to put on a pulse ox but they were cold and he was not able to obtain a waveform. The patient says she felt very anxious and scared during this time. They were then brought to the hospital for evaluation. At this time the patient is asymptomatic outside of her poor baseline respiratory status. This patient denies fevers headaches, chest pain, abdominal pain urinary symptoms. Related Data Home Medications ?Medication ?Instructions ?Recorded ?Confirmed ?Last Taken ?Type insulin lispro 100 unit/mL See Protocol subcut TIDWM 05/15/21 09/18/24 01/31/23 History subcutaneous pen (Humalog KwikPen (U-100) Insulin) lovastatin 20 mg tablet 20 mg PO HS 05/15/21 09/18/24 08/27/24 History omeprazole 40 mg capsule,delayed 40 mg PO DAILY 05/15/21 09/18/24 08/27/24 History release aspirin 81 mg tablet,delayed 81 mg PO DAILY 09/26/21 09/18/24 08/27/24 History release escitalopram oxalate 20 mg tablet 20 mg PO DAILY 07/14/23 09/18/24 08/27/24 History furosemide 40 mg tablet 40 mg PO BID 10/25/23 09/18/24 08/27/24 History montelukast 10 mg tablet 10 mg PO QPM 03/12/24 09/18/24 08/27/24 History losartan 50 mg tablet 100 mg PO DAILY 08/28/24 09/18/24 08/27/24 History Allergies Allergy/AdvReac Type Severity Reaction Status Date / Time No Known Allergies Allergy Verified 09/19/24 17:06 [facility] Past Medical History Medical History Essential hypertension Type 2 myocardial infarction 02/2024 Diastolic congestive heart failure Echocardiogram February 2024 demonstrated EF of 65-70%, mild concentric left ventricular wall thickness, grade 1 diastolic dysfunction, E/E 11 mildly elevated, moderate left atrial enlargement. Prior echocardiogram 05/2023 demonstrated basal inferior septal wall severely hypokinetic to akinetic but this was not mentioned on the most recent echo Chronic kidney disease Stage IIIB Hypothyroidism Coronary artery disease Normal Lexiscan 10/2022 Gastroesophageal reflux disease Chronic obstructive pulmonary disease Hyperlipidemia Surgical History Surgical History History of cholecystectomy History of appendectomy History of partial hysterectomy Family History Family History Father Cerebrovascular accident Mother Diabetes mellitus Heart disease Sibling Throat cancer Renal failure Suicide Sibling Heart disease Social History Social History Social History: Surrogate medical decision maker: anjelica Ward. Code status: Do not intubate Smoking packs per day: 1 Smoking cigarettes per day: 20.0 Years smoked: 60 Smoking pack-years: 60.00 Smoking status: Former smoker Tobacco type: cigarettes Second hand tobacco smoke exposure: Yes Smoking end date: 05/01/1964 Alcohol intake: never Alcohol use details: Social Substance use: never Substance use type: does not use Do You Feel Safe in your Home?: Yes Lack of Transportation: No Lack of Food: Never True Current Housing: I Have Housing Concerned About Future Housing: No Difficulty Paying Gas/Electric Bills: No Difficulty Paying for Meds: No Currently Unemployed: No Education: High School Diploma/GED Difficulty w/ Childcare or Family Care: No Living arrangements: with family Additional living arrangements comments: Lives with son, [id number] and 3 grandchildren in [place]. 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 Gender identity (if verbalized by the patient): Female Spiritual care concerns: No Exam Narrative: APPEARANCE: Chronically unwell appearing Head: atraumatic. EYES: EOMI, NOSE: Atraumatic NECK: Trachea midline RESPIRATORY: Tachypneic, high-flow nasal cannula in place, scattered wheezing CARDIOVASCULAR: RRR, no peripheral edema ABDOMINAL: Non-distended soft nontender MUSCULOSKELETAl: No obvious deformities NEURO: Alert. Moving 4/4 extremities SKIN:: Warm, dry. Normal color PSYCHIATRIC: Normal affect Course Vital Signs Vital signs: Vital Signs Pulse Rate 95 08/05/25 16:50 Respiratory Rate 32 H 09/19/24 16:50 Blood Pressure 184/56 H 09/19/24 16:50 Pulse Oximetry 98 09/19/24 16:50 Oxygen Delivery High Flow Nasal Cannula 09/19/24 16:50 Oxygen Flow Rate 10 09/19/24 16:50 Pulse Rate 92 09/19/24 18:54 Respiratory Rate 28 H 09/19/24 18:54 Blood Pressure 169/59 H 09/19/24 18:54 Pulse Oximetry 99 09/19/24 18:54 Oxygen Delivery High Flow Nasal Cannula 09/19/24 17:31 Oxygen Flow Rate 10 09/19/24 17:31 Medical Decision Making MDM Narrative Medical decision making narrative: -Course: 83-year-old female with with chronic respiratory failure presenting an episode of blue hands. This has since resolved. She is now resting at her baseline oxygen which is between 6-10 L high-flow nasal cannula. Goals of care were discussed with the patient and her son given her poor medical health. The patient states that she does not want to undergo any further testing. After some discussion care coordination was consulted and she will be discharged home on hospice. Ronnie will contact them tomorrow. -DDX includes but is not limited to: Pneumonia, COPD exacerbation, sepsis UTI Vital Signs Vital Signs: Vital Signs Pulse Rate 95 09/19/24 16:50 Respiratory Rate 32 H 09/19/24 16:50 Blood Pressure 184/56 H 09/19/24 16:50 Pulse Oximetry 98 09/19/24 16:50 Oxygen Delivery High Flow Nasal Cannula 09/19/24 16:50 Oxygen Flow Rate 10 09/19/24 16:50 Pulse Rate 92 09/19/24 18:54 Respiratory Rate 28 H 09/19/24 18:54 Blood Pressure 169/59 H 09/19/24 18:54 Pulse Oximetry 99 09/19/24 18:54 Oxygen Delivery High Flow Nasal Cannula 09/19/24 17:31 Oxygen Flow Rate 10 09/19/24 17:31 Lab Data 09/19/24 17:25 09/19/24 17:25 Labs: Lab Results 09/19/24 Range/Units 17:25 WBC 14.6 H (4.5-10.0) K/mm3 RBC 3.95 L (4.2-5.4) M/mm3 Hgb 10.6 L (12.0-15.0) g/dL Hct 36.9 L (37.0-47.0) % MCV 93.4 (80-100) fl MCH 26.8 (26-34) pg MCHC 28.7 L (32-36) g/dl RDW 15.8 H (11.5-14.5) % Plt Count 336 (150-375) k/mm3 MPV 10.2 (7.4-10.4) fl Immature Gran % (Auto) 1.6 H (0-0.5) % Neut % (Auto) 89.0 H (45.5-73.1) % Lymph % (Auto) 3.6 L (18.3-44.2) % Schleicher % (Auto) 3.0 (2.6-8.5) % Eos % (Auto) 2.3 (0-4.4) % Baso % (Auto) 0.5 (0.2-1.2) % Lymph # (Auto) 0.53 L (0.9-3.2) K/mm3 Schleicher # (Auto) 0.4 (0.1-0.6) K/mm3 Eos # (Auto) 0.3 (0-0.3) K/mm3 Baso # (Auto) 0.1 (0.0-0.1) K/mm3 Abs Immat Gran (auto) 0.24 H (0.00-0.031) K/mm3 Absolute Neuts (auto) 13.0 H (1.3-6.7) K/mm3 Absolute Nucleated RBC 0.000 (0.0-0.012) K/mm3 Band Neutrophils % Not Reportable Nucleated RBC % 0.0 (0.0-0.2) % Platelet Estimate Adequate (Adequate) Hypochromasia 1+ Anisocytosis 1+ Ovalocytes 1+ Schistocytes None seen Sodium 137 (137-145) mmol/L Potassium 4.8 (3.4-5.0) mmol/L Chloride 99 (98-107) mmol/L Carbon Dioxide 30 (22-30) mmol/L Anion Gap 8 (4-12) mmol/L BUN 42 H D (7-17) mg/dL Creatinine 1.17 H (0.7-1.0) mg/dL Estim Creat Clear Calc 24 ml/min Estimated GFR 44 L (59 - ) Glucose 225 H (65-110) mg/dL Calcium 9.3 (8.4-10.2) mg/dL Total Bilirubin 0.4 (0.2-1.3) mg/dL AST 37 H (14-36) U/L ALT 25 (6-35) U/L Alkaline Phosphatase 82 (38-126) U/L Total Protein 7.1 (6.3-8.2) g/dL Albumin 4.0 (3.5-5.1) g/dL Discharge Plan Discharge Clinical Impression: COPD (chronic obstructive pulmonary disease) Qualifiers: COPD type: COPD with acute exacerbation Qualified Code(s): J44.1 - Chronic obstructive pulmonary disease with (acute) exacerbation Patient Disposition: Hospice - Home Condition: Guarded Prognosis Additional Instructions: Please call RONNIE to arrange home hospice for end of life care. Patient Language: Vietnamese Prescriptions: No Action omeprazole 40 mg capsule,delayed release(DR/EC) 40 mg PO DAILY lovastatin 20 mg tablet 20 mg PO HS insulin lispro [Humalog KwikPen Insulin] 100 unit/mL insulin pen See Protocol subcut TIDWM Protocol: Insulin Corrective Low-Dose Condition: glucose < 70 mg/dl Dose/Route: Follow Hypoglycemia Order Condition: glucose 70-200 mg/dl Dose/Route: No additional insulin Condition: glucose 201-250 mg/dl Dose/Route: 2 units sub-Q Condition: glucose 251-300 mg/dl Dose/Route: 3 units sub-Q Condition: glucose 301-350 mg/dl Dose/Route: 4 units sub-Q Condition: glucose 351-400 mg/dl Dose/Route: 5 units sub-Q Condition: glucose > 400 mg/dl Dose/Route: Call MD Protocol Text: *No Correction Dose at Bedtime* aspirin 81 mg tablet,delayed release (DR/EC) 81 mg PO DAILY escitalopram oxalate 20 mg tablet 20 mg PO DAILY tiotropium bromide 2.5 mcg/actuation mist 1 inh inhalation .twice a day Qty: 4 3RF insulin glargine [Lantus Solostar U-100 Insulin] 100 unit/mL (3 mL) insulin pen 10 unit subcut HS Qty: 15 0RF glucagon 3 mg/actuation spray,non-aerosol 3 mg intranasal ONCE Qty: 2 0RF Rx Instructions: as a single dose alprazolam 0.25 mg tablet 0.5 mg PO QID PRN (Reason: Anxiety) Qty: 20 0RF hydrocodone-acetaminophen 5-325 mg tablet 1 tablet PO Q8H PRN (Reason: pain) Qty: 20 0RF levothyroxine [Synthroid] 137 mcg Tablet 137 mcg PO DAILY@0630 Qty: 30 0RF montelukast 10 mg tablet 10 mg PO QPM guaifenesin [Mucus Relief ER] 600 mg Tablet Extended Release 12hr 600 mg PO Q12HR Qty: 60 0RF losartan 50 mg tablet 100 mg PO DAILY levalbuterol tartrate 45 mcg/actuation HFA aerosol inhaler 2 inh inhalation Q6H PRN (Reason: shortness of breath or wheezing) Qty: 15 2RF furosemide 40 mg tablet 40 mg PO BID ramelteon 8 mg tablet See Rx Instructions .ROUTE .COMPLEX Qty: 90 0RF Dose Instruction: TAKE 1 TABLET ORALLY EVERY DAY AT BEDTIME NEEDED FOR SLEEP Rx Instructions: TAKE 1 TABLET ORALLY EVERY DAY AT BEDTIME NEEDED FOR SLEEP fluticasone furoate-vilanterol [Breo Ellipta] 100-25 mcg/dose blister with device See Rx Instructions .ROUTE .COMPLEX Qty: 180 1RF Dose Instruction: INHALE 1 PUFF EVERY 24 HOURS. RINSE AND SPIT AFTER EACH USE. Rx Instructions: INHALE 1 PUFF EVERY 24 HOURS. RINSE AND SPIT AFTER EACH USE. budesonide 0.5 mg/2 mL suspension for nebulization 0.5 mg inhalation DAILY Qty: 60 5RF Rx Instructions: rinse and spit Spiriva Respimat 2.5 mcg/actuation mist 2 puff inhalation DAILY Qty: 4 5RF formoterol fumarate 20 mcg/2 mL solution for nebulization 2 ml inhalation BID Qty: 120 3RF Yupelri 175 mcg/3 mL solution for nebulization 175 mcg inhalation DAILY Qty: 90 3RF Follow-up/Referrals: Vidal Hein, [Primary Care Provider] -
--- NOTE | 2024-09-19 19:19 | PCCCNOTE ---
Called to the ED to speak with pt and her son about hospice. Pt wants to go home and be on hospice, she choose [facility]. Yi arnold [facility] was called. They will call them in the AM to set up hospice at home. The son wanted them to call tomorrow, he said they would be fine until then. Referral faxed to [facility].
[2024-09-19 19:22] VITALS: BP 145/55; PULSE 89; RESP 18; TEMP 37.2; O2SAT 98
[2024-09-19 20:18] VITALS: BP 142/47; PULSE 64; RESP 18; TEMP 36.6; O2SAT 99
== END 2024-09-19 20:18 | disposition hospice, home (50) ==
PROVIDERS: Emergency Provider Emergency Medicine; PCP Family Medicine
DX: J44.1 Chronic obstructive pulmonary disease with (acute) exacerbation (principal); J96.10 Chronic respiratory failure, unspecified whether with hypoxia or hypercapnia; Z99.81 Dependence on supplemental oxygen; I25.2 Old myocardial infarction; I50.30 Unspecified diastolic (congestive) heart failure; I13.0 Hypertensive heart and chronic kidney disease with heart failure and stage 1 through stage 4 chronic kidney disease, or unspecified chronic kidney disease; N18.32 Chronic kidney disease, stage 3b; I25.10 Atherosclerotic heart disease of native coronary artery without angina pectoris; E78.5 Hyperlipidemia, unspecified; E03.9 Hypothyroidism, unspecified; K21.9 Gastro-esophageal reflux disease without esophagitis; Z87.891 Personal history of nicotine dependence; Z90.49 Acquired absence of other specified parts of digestive tract; Z90.711 Acquired absence of uterus with remaining cervical stump; R94.31 Abnormal electrocardiogram [ECG] [EKG]
CPT/HCPCS: 36415; 71045; 80053; 85025; 93005; 99283